=== PATIENT | female | born 1935 | race Caucasian/White ===

== ENCOUNTER 2022-02-21 09:23 | Emergency (ER) | payer OTHER, BC, SELFPAY ==
[2022-02-21 09:46] VITALS: BP 160/108; PULSE 85; RESP 20; TEMP 36.4; O2SAT 93; BMI 26.6
--- NOTE | 2022-02-21 10:06 | ED.GENADULT ---
HPI - General Adult General Time Seen by Provider: 10:14 Date Seen: 02/21/22 Chief complaint: Altered Mental Status Stated complaint: Dementia/hallucination Time Seen by Provider: 02/21/22 09:55 Source: patient Mode of arrival: ambulatory Limitations: no limitations History of Present Illness HPI narrative: Patient is a 86-year-old female presents her . They are from [place]. She has had several year history of progressing dementia. She has had frequent UTIs. At this point she has been sitting mostly for the last 3 4 days her, her reports that she has not cleaned herself after going to the bathroom, unable to really care for herself. She apparently had COVID a few weeks ago. Has nose continued cough, her O2 sat here is 93% on room air. She appears in no distress, she really has no complaints. But just has been less active and unable to be cared for by her elderly at this time. He has tried to get her into the advanced care setting but they have been full. He reports she has had workup for dementia in the past. She has no complaints. Related Data Home Medications Medication Instructions Recorded Confirmed amlodipine 5 mg tablet 5 mg PO DAILY 02/21/22 02/21/22 aspirin 81 mg tablet,delayed 81 mg PO DAILY 02/21/22 02/21/22 release donepezil 10 mg tablet 10 mg PO DAILY 02/21/22 02/21/22 labetalol 100 mg tablet 50 - 100 mg PO Q12H 02/21/22 02/21/22 nitroglycerin 0.4 mg sublingual 0.4 mg sublingual Q5-15M PRN 02/21/22 02/21/22 tablet quetiapine 25 mg tablet 25 mg PO DAILY PRN 02/21/22 02/21/22 rosuvastatin 40 mg tablet 40 mg PO DAILY 02/21/22 02/21/22 triamterene 37.5 0.5 tab PO DAILY 02/21/22 02/21/22 mg-hydrochlorothiazide 25 mg tablet venlafaxine 75 mg capsule,extended 75 mg PO DAILY 02/21/22 02/21/22 release 24 hr Previous Rx's Medication Instructions Recorded ciprofloxacin HCl 250 mg tablet 250 mg PO BID #14 tabs 02/21/22 (Cipro) Allergies Allergy/AdvReac Type Severity Reaction Status Date / Time No Known Drug Allergies Allergy Verified 02/21/22 10:10 Review of Systems Status of ROS: Reports: unobtainable due to mental status PFSH PFS Social History Smoking Status: Never smoker Do you use any of these nicotine containing products: None Second hand tobacco smoke exposure: No How often do you have a drink containing alcohol: 4 or more times a week How many standard drinks containing alcohol do you have on a typical day: 1 or 2 AUDIT-C Alcohol total score: 4 Non-prescribed substance use: denies use Exam Narrative: Exam Narrative: Objective: The patient is responsive, does answer some questions appropriately Vital signs are largely unremarkable and slightly elevated blood pressure HEENT is unremarkable no facial asymmetry neck is supple chest is clear no rales or wheezing Heart rhythm regular 2/6 systolic murmur Abdomen obese benign nontender extremities without edema neurologic nonfocal Skin periphery is warm and dry Good neurologic tone. Const: Vital Signs, click to edit/add: Vital Signs - 24 hr 02/21/22 09:46 02/21/22 13:08 Temperature 97.6 F 98.1 F Pulse Rate [Right Pulse Oximeter] 85 92 Respiratory Rate 20 18 Blood Pressure [Ri ght Upper Arm] 160/108 H 131/118 H Pulse Oximetry 93 93 Oxygen Delivery Me thod Room Air Room Air Course Vital Signs Vital signs: Initial Vital Signs Temperature 97.6 F 02/21/22 09:46 Temperature Source Temporal Artery Scan 02/21/22 09:46 Pulse Rate 85 02/21/22 09:46 Pulse Rhythm 02/21/22 09:46 Respiratory Rate 20 02/21/22 09:46 Blood Pressure 160/108 H 02/21/22 09:46 Blood Pressure Mean 125 02/21/22 09:46 Blood Pressure Position Sitting 02/21/22 09:46 Pulse Oximetry 93 02/21/22 09:46 Oxygen Delivery Method 02/21/22 09:46 Vital Signs Temperature 97.6 F 02/21/22 09:46 Pulse Rate 85 02/21/22 09:46 Respiratory Rate 20 02/21/22 09:46 Blood Pressure 160/108 H 02/21/22 09:46 Pulse Oximetry 93 02/21/22 09:46 Oxygen Delivery Method 02/21/22 09:46 Temperature 98.1 F 02/21/22 13:08 Pulse Rate 92 02/21/22 13:08 Respiratory Rate 18 02/21/22 13:08 Blood Pressure 131/118 H 02/21/22 13:08 Pulse Oximetry 93 02/21/22 13:08 Oxygen Delivery Method 02/21/22 13:08 Medical Decision Making MDM Narrative Medical decision making narrative: Patient has suffered from longstanding dementia, is tried to get an advanced care setting but been unable to due to them being full. At this point will check some basic labs a chest x-ray, COVID test, lab studies, urinalysis. If these are reassuring I think we could have social Service see regarding skilled nursing placement directly from ER given there are no hospital beds in the state, including our own hospital presently. Addendum: Patient's hemodynamics are stable she is slightly hypertensive. Will give her Rocephin 500 mg IM as she has a UTI, I suspect she has chronic pyuria. Will run a culture. Will treat her with Cipro 250 b.i.d. x7 days. Having listed social service help to try and find skilled nursing placement and they are unable to. With her severe limited bed availability at this point I think the patient's able to go home, with social service continue to check on skilled nursing placement. Addendum: Social Service temporal has been extremely helpful in getting this process coordinated, we do have but potential bed for skilled nursing placement tomorrow in [place]. They will review her information and get back to the patient about this within the next day or so or to her service social Service Department. I have also filled out a home care skilled nursing sheet as well as admission orders for the skilled nursing. Cipro for the urinary tract infection, and return if problems or concerns sooner but I think given the limited to bed availability in hospitals there really is no option other than home at this point and possible skilled nursing tomorrow. Lab Data Labs: Lab Results 02/21/22 02/21/22 02/21/22 Range/Units 10:15 10:15 10:15 WBC 8.05 (4.50-11.00) K/uL RBC 4.89 (4.00-5.20) m/uL Hgb 15.5 (12.0-16.0) gm/dL Hct 45.0 (33.0-51.0) % MCV 92 (80-100) fL MCH 32 (26-34) pg MCHC 34 (32-36) gm/dL RDW Coeff of [place] 13.0 (11.5-15.5) % Plt Count 206 (140-440) K/uL Neut % (Auto) 67.5 (42.0-72.0) % Lymph % (Auto) 23.6 (20-44) % [place] % (Auto) 7.8 (0.0-11.0) % Eos % (Auto) 0.6 (0.0-7.0) % Baso % (Auto) 0.4 (0.0-3.0) % Neut # (Auto) 5.43 (1.7-7.0) K/uL Lymph # (Auto) 1.90 (0.90-2.90) K/uL [place] # (Auto) 0.60 (0.00-0.90) K/UL Eos # (Auto) 0.05 (0.00-0.50) K/uL Baso # (Auto) 0.03 (0.00-0.30) K/uL Abs Immat Gran (auto) 0.01 (0.00-0.30) K/uL Sodium 136 (135-149) mmol/L Potassium 3.0 L (3.6-5.1) mmol/L Chloride 97 (96-114) mmol/L Carbon Dioxide 29 (20-32) mmol/L BUN 14 (7-30) mg/dL Creatinine 0.8 (0.5-1.5) mg/dL Estimated Creat Clear 37.68 Estimated GFR 73 ml/min Glucose 108 (60-115) mg/dL Calcium 9.2 (8.4-10.6) mg/dL Urine Color (Yellow) Urine Appearance (Clear) Urine pH (5.0-8.5) Ur Specific [place] (1.000-1.030) Urine Protein (Negative) Urine Glucose (UA) (Negative) Urine Ketones (Negative) Urine Blood (Negative) Urine Nitrite (Negative) Urine Bilirubin (Negative) Urine Urobilinogen (0.2-1.0) Ur Leukocyte Esterase (Negative) Urine RBC (0-2) Urine WBC (0-5) Ur Squamous Epith Cells (None-Few) Urine Bacteria (None) SARS-CoV-2 Ag (Rapid) Negative (Negative) 02/21/22 Range/Units 12:25 WBC (4.50-11.00) K/uL RBC (4.00-5.20) m/uL Hgb (12.0-16.0) gm/dL Hct (33.0-51.0) % MCV (80-100) fL MCH (26-34) pg MCHC (32-36) gm/dL RDW Coeff of [place] (11.5-15.5) % Plt Count (140-440) K/uL Neut % (Auto) (42.0-72.0) % Lymph % (Auto) (20-44) % [place] % (Auto) (0.0-11.0) % Eos % (Auto) (0.0-7.0) % Baso % (Auto) (0.0-3.0) % Neut # (Auto) (1.7-7.0) K/uL Lymph # (Auto) (0.90-2.90) K/uL [place] # (Auto) (0.00-0.90) K/UL Eos # (Auto) (0.00-0.50) K/uL Baso # (Auto) (0.00-0.30) K/uL Abs Immat Gran (auto) (0.00-0.30) K/uL Sodium (135-149) mmol/L Potassium (3.6-5.1) mmol/L Chloride (96-114) mmol/L Carbon Dioxide (20-32) mmol/L BUN (7-30) mg/dL Creatinine (0.5-1.5) mg/dL Estimated Creat Clear Estimated GFR ml/min Glucose (60-115) mg/dL Calcium (8.4-10.6) mg/dL Urine Color [place] A (Yellow) Urine Appearance Cloudy A (Clear) Urine pH 5.5 (5.0-8.5) Ur Specific [place] 1.025 (1.000-1.030) Urine Protein 2+ A (Negative) Urine Glucose (UA) Negative (Negative) Urine Ketones 1+ A (Negative) Urine Blood 1+ A (Negative) Urine Nitrite Positive A (Negative) Urine Bilirubin 2+ A (Negative) Urine Urobilinogen 2.0 A (0.2-1.0) Ur Leukocyte Esterase 3+ A (Negative) Urine RBC 0-2 (0-2) Urine WBC 50-100 A (0-5) Ur Squamous Epith Cells Few (None-Few) Urine Bacteria Many A (None) SARS-CoV-2 Ag (Rapid) (Negative) Discharge Plan Discharge Clinical Impression: Dementia, Urinary tract infection Patient Disposition: Home w/ Parent or Adult Condition: Stable Additional Instructions: Social service to continue to try and get skilled nursing placement, antibiotic Cipro 2 times a day for 7 days. Fluids, observation, update primary care as needed, return to ED as needed; Addendum: Patient has been accepted to [facility], I will complete the orders needed for admission tomorrow. Use the Cipro antibiotic and check into the skilled nursing tomorrow Activity Level: Light activity Discharge Diet: Regular Prescriptions: New ciprofloxacin HCl [Cipro] 250 mg tablet 250 mg PO BID Qty: 14 0RF No Action amlodipine 5 mg tablet 5 mg PO DAILY aspirin 81 mg tablet,delayed release (DR/EC) 81 mg PO DAILY donepezil 10 mg tablet 10 mg PO DAILY Label Comments: TAKE 1 TABLET BY MOUTH DAILY quetiapine 25 mg tablet 25 mg PO DAILY PRN Label Comments: TAKE 1/2 TO 1 TABLET BY MOUTH DAILY NEEDED FOR AGITATION rosuvastatin 40 mg tablet 40 mg PO DAILY triamterene-hydrochlorothiazid 37.5-25 mg tablet 0.5 tab PO DAILY Label Comments: TAKE 1/2 TABLET BY MOUTH DAILY venlafaxine 75 mg capsule,extended release 24hr 75 mg PO DAILY labetalol 100 mg tablet 50 - 100 mg PO Q12H Label Comments: 0.5 TAB IN THE AM AND 1 TAB IN THE EVENING. nitroglycerin 0.4 mg tablet, sublingual 0.4 mg sublingual Q5-15M PRN Rx Instructions: do not exceed 3 doses per episode Stand Alone Forms: [employer] Info Instructions
--- NOTE | 2022-02-21 10:11 | CRLHL7_ITS ---
For Patients: As a result of the Century Cures Act, medical imaging exams and procedure reports are released immediately into your electronic medical record. You may view this report before your referring provider. If you have questions, please contact your health care provider. INDICATION: Weakness TECHNIQUE: Chest 1 view COMPARISON: None FINDINGS: Cardiovascular and mediastinum: Tortuosity of the descending thoracic aorta. Cardiac silhouette is upper limits of normal. Lungs and pleural spaces: Lungs are clear. No sign of infiltrate or mass. No sign of pleural effusion. No pneumothorax. Bones and soft tissues: No significant findings. IMPRESSION: No acute findings. Dictated by Mt Ramirez MD @ 02/21/2022 11:14:07 AM (Electronically Signed)
[2022-02-21 10:22] LABS: Basophils Absolute Auto 0.03 K/uL (0.00-0.30); Basophils Percent Auto 0.4 % (0.0-3.0); Eosinophils Absolute Auto 0.05 K/uL (0.00-0.50); Eosinophils Percent Auto 0.6 % (0.0-7.0); Hemoglobin* 15.5 gm/dL (12.0-16.0); Immature Granulocytes Abs Auto 0.01 K/uL (0.00-0.30); Lymphocytes Percent Auto 23.6 % (20-44); Mean Corpuscular HGB Conc 34 gm/dL (32-36); Mean Corpuscular Hemoglobin 32 pg (26-34); Mean Corpuscular Volume 92 fL (80-100); Monocytes Percent Auto 7.8 % (0.0-11.0); Neutrophils Absolute Auto 5.43 K/uL (1.7-7.0); Neutrophils Percent Auto 67.5 % (42.0-72.0); Platelet Count* 206 K/uL (140-440); Red Blood Count 4.89 m/uL (4.00-5.20); White Blood Count* 8.05 K/uL (4.50-11.00)
[2022-02-21 10:24] LABS: Slide Review Reflex No
--- OUTSIDE RECORDS SUMMARY | 2022-02-21 10:25 | XMS_ITS | Clinical Summary ---
:1935 Author Organization [employer] Address [address] [place] [address] Care Team Providers Name Role Phone Justin Arora PA-C Primary Care Provider Source Comments You are receiving this document as you are listed as the primary care provider,follow-up provider, or the patient has been referred to you for consultation.This is in compliance with the Medicare and Medicaid EHR Incentive Program,which states Providers who transition their patient to another setting of careor provider of care or refers their patient to another provider of care shouldprovide summarycare record for each transition of care or referral. [employer] ([employer]) Allergies Active Allergy Reactions Severity Noted Date Comments Atorvastatin 09/16/2014 Muscle aches Morphine Nausea And Vomiting 09/16/2014 Medications Medication Sig Dispensed Refills Start Date End Date Status Cholecalciferol Take 1 Tablet 90 Tablet 3 04/12/2020 Active (VITAMIN D3) 25 MCG by mouth (1000 UT) daily. taIndications: Vitamin D deficiency (HRC) nitroglycerin Place 1 Tablet 100 Tablet 11 04/12/2020 Active (NITROSTAT) 0.4 MG under tongue sublingual every 5 tabletIndications: Old minutes as myocardial infarction needed for (HRC) Chest Pain. If no relief after 5 min call 911;continue 1 tab every 5 min max 3 tab Calcium 600-200 Take 1 Each by 180 Each 3 04/12/2020 Active MG-UNITIndications: mouth two Osteoporosis, times a day. unspecified osteoporosis type, unspecified pathological fracture presence (HRC) labetalol (TRANDATE) TAKE ONE-HALF 135 Tablet 0 10/30/2020 Active 100 MG BY MOUTH EVERY tabletIndications: MORNING AND 1 Essential hypertension TABLET EVERY (HRC) EVENING donepezil (ARICEPT) 10 Take 1 Tablet 90 Tablet 3 05/11/2021 Active MG tablet by mouth daily. amLODIPine (NORVASC) 5 Take 0.5 90 Tablet 3 06/23/2021 Active MG tabletIndications: Tablets (2.5 Essential hypertension mg) by mouth ([facility]) daily. rosuvastatin (CRESTOR) Take 1 Tablet 90 Tablet 3 06/23/2021 Active 40 MG (40 mg) by tabletIndications: mouth daily. Hyperlipidemia, unspecified hyperlipidemia type ([facility]) triamterene-hydrochloro Take 0.5 90 Tablet 3 06/23/2021 Active thiazide (MAXZIDE-25) Tablets by 37.5-25 MG mouth daily. tabletIndications: Essential hypertension (HR) venlafaxine (EFFEXORXR) Take 1 Capsule 90 Capsule 3 06/23/2021 06/23/2022 Active 75 MG 24 hour release (75 mg) by capsuleIndications: mouth daily. Moderate episode of recurrent major depressive disorder (HRC) aspirin EC 81 MG Take 1 Tablet 90 Tablet 3 06/23/2021 Active enteric coated (81 mg) by tabletIndications: mouth daily. Essential hypertension (HR) naproxen (NAPROSYN) 500 Take 1 Tablet 20 Tablet 1 07/26/2021 Active MG tabletIndications: (500 mg) by Pain in hip, Unsteady mouth two gait times daily as needed. cephalexin (KEFLEX) 500 Take 1 Capsule 21 Capsule 0 09/13/2021 Active MG capsuleIndications: (500 mg) by Foul smelling urine, mouth three Recurrent UTI times a day. Additional Information Patient not taking. Reported on 01/31/2022 nirmatrelvir & Take 2 nirmatrelvir 30 Each 0 01/25/2022 Active ritonavir 300/100 tablets (300mg) and 1 (PAXLOVID) 300 mg & ritonavir tablet 100 mg tablet combo (100mg) by mouth packIndications: twice daily for 5 Infection caused by days. Quetiapine 2019 Novel 25MG: Take 1/2 tab Coronavirus every other day while on Paxlovid and for 3 days after. Amlodipine: Take 1/2 tablet every other day while on Paxlovid and for 3 days after. Rosuvastatin-Stop rosuvastatin during treatment. Restart rosuvastatin 1 day after the last dose of Paxlovid. Indications: Infection caused by COVID-19 Coronavirus QUEtiapine (SEROQUEL) 1/2 to 1 pill daily 30 Tablet 2 02/07/20 22 Active 25 MG tablet as needed for agitation QUEtiapine (SEROQUEL) 1/2 to 1 pill daily 30 Tablet 5 05/11/20 21 01/12 Discontinued 25 MG tablet as needed for 11/29 (*M ed change OR agitation 22 same med O R reorder, n ew dose/direc tions) Active Problems Patient Care Coordination Note Formatting of this note might be differe nt from the original. BORIS Desir [employer] Care Coord inator [phone] Problem Noted Date Age-related osteoporosis without current pathological fracture 05/19/2020 Osteoporosis 07/13/2019 Overview: DEXA 2020 Incontinence 10/22/2018 Dementia in Alzheimer's disease 06/26/2018 Complex care coordination 06/03/2018 Overview: BORIS Desir [employer], Blue Plus Plan. PERS and care coordination [phone] Cervical myelopathy 07/08/2017 Overview: Added automatically from request for vy lawson [id number] Muscle weakness (generalized) 07/08/2017 Overview: Added automatically from request for vy lawson [id number] Stenosis, cervical spine 07/08/2017 Overview: Added automatically from request for vy lawson [id number] Thyroid nodule 05/17/2017 Overview: Stable in 2019 - needs repeat in 2021 Consulted with endocrinology in May 2017. At this time does not look concerning. Recommending repeat thyroid US and TSH in 6 months. If stable then repeat in a year. 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 followed by her primary physician with o nce a year testing of quantitative immunoglobulins, SPEP, free light chains, hemoglobin and creatinine levels. MGUS:Fidelia comes today for follow up wi th her daughter. She denies any new symptoms. She was last seen by us in 2018. Overall, she is walking better and has not been using the cane and denies any recen t falls or unsteadiness. She denies any headache, dizziness, or any neuropathic symptoms. She does not have any CRAB features and did have 2 small calvarial lesions which are likely benign and stable in 2018 based on MRI. At this time, since she is doing well with stable monoclonal protein, she can be followed by her primary physician with once a year testing of quantitative immunoglobulins, SPEP, roxi e light chains, hemoglobin and creatinin e levels. She can be referred back if there are cytopenias or significant changes in monoclonal protein. Fidelia is a 81-year-old with history of hypertension, coronary artery disease, status post ventricular fibrillation, cardiac arrest in 2002 has been referred here for evaluation of monoclonal protein. ?? I discussed with Fidelia and her daughter her electrophoresis which was performed on 11/01/2016, showing 0.5 g of IgG kappa. She does not have any CRAB features specifically anemia or abnormal kidney fun ction with normal calcium levels. She do es not have any abnormal bone pain or aches or any new symptoms or fractures in the past. I discussed with her that we will be obtaining free light chain assays a nd quantitative immunoglobulins for furt her evaluation. 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 I went over the na ture and generation of MGUS with her in detail. I do not think a bone survey is necessary at this time, but could consider that if the protein increases any further. She will visit with us in 4-5 months for followup. Sensory neuronopathy 01/28/2017 Memory loss 01/28/2017 Old myocardial infarction 09/29/2016 Overview: Sees mobile security architect at [facility]. Records i n care everywhere. Seen in November 2017 by her mobile security architect Dr. Guillermo Martinez. Has known her for 15 years. No changes made. He wants to see her in 2 years. No changes were made. In 1980 she had a left circumflex myocar dial infarction and continues to have an occluded obtuse marginal 1 branch. In 2002 she presented with chest pressure, anterior wall NJ complicated by ventricular fibrillation cardiac arrest. The LAD martino d a high-grade lesion and at that point was too tortuous to stent. Likely with today's technology we could. She had a nuclear stress test done in 2008 which looke d positive for ischemia. We took her to the Cost Accounting Clerk, and she had a 50%-60% narrowing in the LAD and a 50% right coronary lesion -- this was likely a false- positive stress test. She has had no angina. S hould we do any surveillance stress test ing in the future, Dr. Martinez is suggesting an MRI stress test or an angiogram. She has lost some weight. She has some e adrián from varicosities. She had a heart murmur apparent at the last office visit, and Dr. Martinez felt this was aortic valve sclerosis, which indeed it is. There is no stenoses. Her LV function is 50%-5 5% with an inferobasal wall motion abnormality likely consistent with her known cardiac anatomy, and she has had wall motion issues there on nuclear testing in the past. Overview: Followed by [facility] cardiolog y with VFib Arrest, SVT immediately after NJ Back in 1980, she had an unrecognized le ft circumflex myocardial infarction. In 2002, she presented with an anterior infarct with V-fib cardiac arrest. We ballooned the LAD with good result. We did not place a stent because the vessel was tor tuous, although with today's stents we could place one. In 2008, a stress test suggested severe ischemia, which fortunately was not the case. Heart cath showed, o f course, the circumflex marginal was oc cluded, the LAD was 50% narrowed and the right coronary had 50% narrowing. Aortic valve sclerosis 09/29/2016 Chronic coronary artery disease 09/29/2016 Hyperlipidemia 09/29/2016 Hypertension 09/29/2016 Anxiety 09/29/2016 Depression, major, recurrent 09/29/2016 Encounters Date Type Specialty Care Team Description 02/06/2022 Telephone Neurology Nany Newman, RN UPDATE 02/06/2022 Nurse Triage Family Medicine Justin Arora PAYadiel Faby t. Work In Request; Follow Up, Urge nt Care; DEMENTIA; BEHAV IOR CONCERNS 02/01/2022 Nurse Triage Urgent Care Ginger Nath RN Questio ns, Aftercare 01/31/2022 Lab Visit Laboratory Other fatigue; Weight loss; Appetite loss 01/31/2022 Office Visit Urgent Care Brady Renee, Other fa tigue; Weight loss; Appetite loss 01/31/2022 Nurse Triage Family Medicine Justin Arora PA-C WEAKNESS,EXTREMITIES; APPETITE, DECRE ASED 01/24/2022 Telephone Family Medicine Justin Arora PA-C COU GH; COVID 12/08/2021 Telephone Family Medicine Justin Arora PA-C Dme Supply 12/06/2021 Telephone Family Medicine Justin Arora PA-C Que stions from Last 3 Months Immunizations Name Administration Dates Next Due Flu Vac Preserv Free (3+yrs) 03/03/2004 Influenza IIV3 (Trivalent) Fluzone 03/29/2020, 04/29/2019, 1 06/02/2018, Highdose, 65+ Yrs (97033) 04/01/2018, 05/15/2017 Influenza IIV4 (Quadrivalent) 0.5mL 02/09/2016, 02/16/2015, 02/23/2014, (39953) 02/11/2013, 02/01/2012, 04/26/2011 Influenza IIV4 (Quadrivalent) 03/28/2021 Fluzone, 65+ Yrs PCV13 (Prevnar) 02/16/2015 PPSV23 (Pneumovax) 07/25/2017 Pfizer (Comirnaty) COVID-19, 12+ Yrs 03/24/2021, 07/09/2020, 06/18/2020 Purple Top Tdap 06/08/2019 Zoster RZV (Shingrix) 07/15/2018, 03/18/2018 Family History Medical History Relation Name Comments Heart Disease Mother Heart Disease Sister BRCA 1/2 Negative Family History Cancer Negative Family History Cancer, Breast Negative Family History Cancer, Endometrial Negative Family History Cancer, Ovary Negative Family History Relation Name Status Comments Mother Sister Social History Tobacco Use Types Packs/Day Years Used Date Smoking Tobacco: Never Smokeless Tobacco: Never Alcohol Use Standard Drinks/Week Comments Yes 0 (1 standard drink = 0.6 oz pure alcoho l) rare occasions (1 per month) Sex Assigned at Date Recorded Not on file Last Filed Vital Signs Vital Sign Reading Time Taken Comments Blood Pressure 122/73 01/31/2022 2:54 PM CDT Pulse 81 01/31/2022 2:54 PM CDT Temperature 36.9 ??C (98.5 ??F) 01/31/2022 2:54 PM CDT Respiratory Rate 16 01/31/2022 2:54 PM CDT Oxygen Saturation 95% 01/31/2022 2:54 PM CDT Inhaled Oxygen Concentration - - Weight 81.7 kg (180 lb 1.9 oz) 01/31/2022 2:54 PM CDT Height 156.2 cm (5' 1.5) 09/13/2021 2:12 PM CDT Body Mass Index 33.48 09/13/2021 2:12 PM CDT Plan of Treatment Health Maintenance Due Date Last Done Comments COVID-19 Vaccine (4 - 05/19/2021 03/24/2021, 07/09/2020, Booster for Pfizer series) 06/18/2020 Dexa 07/08/2021 07/08/2019 Influenza (#1) 2022 03/28/2021, 03/29/2020, 04/29/2019, Additional history exists Medicare Annual Wellness 06/23/2022 06/23/2021, 06/08/2019, Visit 11/07/2017 DTaP/Tdap/Td (2 - Tdap) 06/08/2029 06/08/2019 Pneumococcal 65+ Yrs Completed 07/25/2017, 02/16/2015 Zoster/Shingles Completed 07/15/2018, 03/18/2018 HepA Aged Out No longer eligib le based on patient 's age to complete this topic HepB Aged Out No longer eligib le based on patient 's age to complete this topic Hib Aged Out No longer eligib le based on patient 's age to complete this topic IPV (Polio) Aged Out No longer eligib le based on patient 's age to complete this topic MCV4 Aged Out No longer eligib le based on patient 's age to complete this topic Procedures Procedure Name Priority Date/Time Associated Comments Diagnosis TSH, SENSITIVE Routine 01/31/2022 3:50 PM Other fatigue Results for this CDT Weight loss procedure are in Appetite loss the results section. COMPLETE BLOOD STAT 01/31/2022 3:50 PM Other fatigue Result s for this COUNT-W/DIFF CDT procedure are i n the results section. C-REACTIVE PROTEIN STAT 01/31/2022 3:50 PM Other fatigue Re sults for this CDT procedure are i n the results section. CBC AND DIFFERENTIAL STAT 01/31/2022 3:50 PM Other fatigue Results for this PANEL CDT procedure are i n the results section. COMP METABOLIC PANEL STAT 01/31/2022 3:50 PM Other fatigue Results for this CDT procedure are i n the results section. from Last 3 Months Results (ABNORMAL) Complete Blood Count-W/Diff (01/31/2022 3:50 PM CDT) Analysis Performed At Patho logist Time Signature WBC 6.9 3.5 - 10.5 01/31/2022 [facility] x10(9)/L 4:02 PM CDT RBC 5.52 (H) 3.90 - 01/31/2022 [facility] 5.03 4:02 PM CDT x10(12)/L Hemoglobin 17.1 (H) 12.0 - 01/31/2022 [facility] 15.5 g/dL 4:02 PM CDT HCT 49.0 (H) 34.9 - 01/31/2022 [facility] 44.5 % 4:02 PM CDT MCV 88.8 80.0 - 01/31/2022 [facility] 100.0 fL 4:02 PM CDT MCH 31.0 27.6 - 01/31/2022 [facility] 33.3 pg 4:02 PM CDT MCHC 34.9 31.5 - 01/31/2022 [facility] 35.2 g/dL 4:02 PM CDT RDW 12.5 11.9 - 01/31/2022 [facility] 15.5 % 4:02 PM CDT Platelets 203 150 - 450 01/31/2022 [facility] x10(9)/L 4:02 PM CDT Neutrophil 4.6 1.7 - 7.0 01/31/2022 [facility] Absolute 10(9)/L 4:02 PM CDT Lymphocyte 1.8 1.0 - 4.8 01/31/2022 [facility] Absolute 10(9)/L 4:02 PM CDT Monocytes 0.5 0.2 - 0.9 01/31/2022 [facility] Absolute 10(9)/L 4:02 PM CDT Eosinophil 0.0 0.0 - 0.5 01/31/2022 [facility] Absolute 10(9)/L 4:02 PM CDT Basophil 0.0 0.0 - 0.3 01/31/2022 [facility] Absolute 10(9)/L 4:02 PM CDT Immature Gran % 0.3 0.0 - 0.5 01/31/2022 [facility] % 4:02 PM CDT Specimen Anatomical Collection Method / Collection Time Recei miladis Time (Source) Location / Volume Laterality Blood Venipuncture / 01/31/2022 3:50 01/31/2022 3:50 Unknown PM CDT PM CDT Brady Renee MD LAB_1 Performing Organization Address City/State/ZIP Code Phon e Number [facility] [address] [place] [address] (ABNORMAL) Comp Metabolic Panel (01/31/2022 3:50 PM CDT) [facility] Method Time Signature Sodium 136 136 - 145 01/31/2022 [facility] mmol/L 5:30 PM CDT LABORATORY Potassium 3.2 (L) 3.5 - 5.1 01/31/2022 [facility] mmol/L 5:30 PM CDT LABORATORY Chloride 92 (L) 98 - 109 01/31/2022 [facility] mmol/L 5:30 PM CDT LABORATORY CO2 32 (H) 20 - 29 01/31/2022 [facility] mmol/L 5:30 PM CDT LABORATORY Anion Gap 12 7 - 16 01/31/2022 [facility] mmol/L 5:30 PM CDT LABORATORY Calcium 9.1 8.4 - 10.4 01/31/2022 [facility] mg/dL 5:30 PM CDT LABORATORY BUN 13 7 - 26 01/31/2022 [facility] mg/dL 5:30 PM CDT LABORATORY Creatinine 0.80 0.55 - 01/31/2022 [facility] 1.02 mg/dL 5:30 PM CDT LABORATORY GFR, Estimated >60 >60 01/31/2022 [facility] mL/min/1.7 5:30 PM CDT LABORATORY 3m2 Alkaline 49 40 - 150 01/31/2022 [facility] Phosphatase U/L 5:30 PM CDT LABORATORY AST (SGOT) 24 10 - 40 01/31/2022 [facility] U/L 5:30 PM CDT LABORATORY ALT (SGPT) 14 0 - 55 U/L 01/31/2022 [facility] 5:30 PM CDT LABORATORY Bilirubin, Total 1.2 0.2 - 1.2 01/31/2022 [facility] mg/dL 5:30 PM CDT LABORATORY Protein, Total 7.3 6.4 - 8.3 01/31/2022 [facility] g/dL 5:30 PM CDT LABORATORY Albumin 3.9 3.5 - 5.0 01/31/2022 [facility] g/dL 5:30 PM CDT LABORATORY Glucose 98 70 - 100 01/31/2022 [facility] mg/dL 5:30 PM CDT LABORATORY Comment: The given reference range is fo r the fasting state. Non-fasting reference range for glucose is 70 - 180 mg/dL. Hours Fasting 3 01/31/2022 5:30 PM CDT [facility] Specimen Anatomical Collection Method / Collection Time Recei miladis Time (Source) Location / Volume Laterality Blood Venipuncture / 01/31/2022 3:50 01/31/2022 3:50 Unknown PM CDT PM CDT Brady Renee MD LAB_1 Performing Organization Address City/State/ZIP Code Phon e Number [facility] [address] [place] [address] [facility] [address] [place] [address], [facility] TSH (01/31/2022 3:50 PM CDT) athologist Signature TSH, Sensitive 1.63 0.30 - 02/01/2022 [facility] 4.50 2:35 PM CDT LABORATORY uIU/mL Specimen Anatomical Collection Method / Collection Time Recei miladis Time (Source) Location / Volume Laterality Blood Venipuncture / 01/31/2022 3:50 01/31/2022 3:50 Unknown PM CDT PM CDT Brady Renee MD LAB_1 Performing Organization Address City/State/ZIP Code Phon e Number [facility] [address] [place] [address] C-Reactive Protein (01/31/2022 3:50 PM CDT) athologist Signature C-Reactive <0.5 0.0 - 0.7 01/31/2022 [facility] Protein mg/dL 5:30 PM CDT LABORATORY Specimen Anatomical Collection Method / Collection Time Recei miladis Time (Source) Location / Volume Laterality Blood Venipuncture / 01/31/2022 3:50 01/31/2022 3:50 Unknown PM CDT PM CDT Bardy Renee MD LAB_1 Performing Organization Address City/State/ZIP Code Phon e Number [facility] [address] [place] [address] from Last 3 Months Insurance Payer Benefit Plan / Subscriber ID Effective Dates Phone Addre ss Type Group HUMANA HUMANA MEDICARE [id number] 2019-Presen [phone] Medicare PPO t 8 BCBS BCBS PMAP BLUE [id number] 2020-Prese [address] [address] [place] [address] Asael, Fidelia R Personal/Famil Self 1935 [address] [place] (Home) [address] [place] [address] Sprute, Fidelia R Personal/Famil Self 1935 [address] ([address] [place] [address] Asael, Fidelia R Personal/Famil Self 1935 [address] ([address] [address] Advance Directives Latest Code Status on File Code Status Date Activated Date Inactivated Comments Full Code 07/09/2017 5:30 PM 07/12/2017 1:[address] Reporter Relationship Specialty Start Date End Date Justin Arora PA-C PCP - General Physician Biological Inspector 07/24/21 [address] [place] [address] Erin Meza [facility] Glass Forming Crew Member 10/24/17 BORIS Desir [phone] Fatou Haile Glass Forming Crew Member 06/03/18 mauri garcia [facility] Early Childhood Special Educator 05/28/19
--- OUTSIDE RECORDS SUMMARY | 2022-02-21 10:25 | XMS_ITS | Encounter Summary ---
:1935 Author Organization [employer] Address [address] [place] [address] Care Team Providers Name Role Phone Jutsin Arora PA-C Primary Care Provider Reason for Visit Reason Comments Questions, Aftercare Encounter Details Date Type Department Care Team Description 02/01/2022 Nurse Triage [place] [address] Urgent Ginger Nath, [place] [address] [address] [phone] Social History Tobacco Use Types Packs/Day Years Used Date Smoking Tobacco: Never Smokeless Tobacco: Never Alcohol Use Standard Drinks/Week Comments Yes 0 (1 standard drink = 0.6 oz pure alcoho l) rare occasions (1 per month) Sex Assigned at Date Recorded Not on file documented as of this encounter Nursing Notes Ginger Nath, RN - 02/01/2022 10:24 AM CDT Patient's daughter calling with questions regarding follow up on phone message left by Brady last night regarding labs and possible IV hydration. Internal Medicine Physician spoke with provider on staff today, Destin Blum CNP who recommends that if patient is unable to hydrate orally, eat and has continued weakness then she should presents to the ED for hydration and further evaluation of weakness. This assembly instructions writer informed daughterOnel. Daughter expressed understanding, and asked what kind of drinks she should be offeringher mother. Internal Medicine Physician instructed water, flavored water beverages, teas, gatorade, powerade, boost or ensure. Also encouraged intake of potassium in foods such as bananas. Daughter will encourage and if yadiel ble will present to ED with Fidelia. documented in this encounter Plan of Treatment Not on filedocumented as of this encounter Visit Diagnoses Not on filedocumented in this encounter Care Teams Upholstery Parts Sorter Relationship Specialty Start Date End Date Justin Arora PA-C PCP - General Physician Net Developer Contract 07/24/21 [id number] [place] [address] Erin ESCALANTE Channeler Outsole 10/24/17 BORIS Desir [phone] Fatou Haile Channeler Outsole 06/03/[address] Mechanic 05/28/19 documented as of this encounter
--- OUTSIDE RECORDS SUMMARY | 2022-02-21 10:25 | XMS_ITS | Encounter Summary ---
:1935 Author Organization [facility] Address [address], [place] [address] Care Team Providers Name Role Phone Justin Arora PA-C Primary Care Provider Reason for Visit Reason Comments UPDATE Encounter Details Date Type Department Care Team Description 02/06/2022 Telephone Specialty Center [phone] Neurology Nany Newman, RN UPDATE [address] [place], [place] [id number] Social History Tobacco Use Types Packs/Day Years Used Date Smoking Tobacco: Never Smokeless Tobacco: Never Alcohol Use Standard Drinks/Week Comments Yes 0 (1 standard drink = 0.6 oz pure alcoho l) rare occasions (1 per month) Sex Assigned at Date Recorded Not on file documented as of this encounter Nursing Notes Nany Newman RN - 02/06/2022 1:45 PM CDT Called pt's daughter and discussed the below. She will call 911 and bring her to ER if unable to gether out of the chair. Recently seen in urgent care as well. Jose Aldridge MD - 02/06/2022 1:35 PM CDT If this is a sudden behavior change she should be evaluated more urgently in UC/ED to see if she hassome kind of acute infection or medical event causing this. I agree that even if not such a sudden change, there would be acute concerns about her not getting up from chair, sitting in her own urine/feces in regard to skin breakdown. I doubt that quetiapine will help with them with this situation as you stated. Nany Newman, RN - 02/06/2022 12:28 PM CDT Pt's daughter calling to report worsening memory issues and aggression. She is refusing to brigitte out of her chair, won't use the restroom, is combative and argumentative. Hasn't moved from this chair since Saturday, won't change her depend. Never picked up the seroquel. Rx sent through to see if this willhelp get her out of the chair. Discussed may have to call 911 if she still refuses to move as at this point skin breakdown/ulcers are a concern. Please advise if anything further is needed. May benefitfrom social science instructor reaching out. documented in this encounter Plan of Treatment Not on filedocumented as of this encounter Visit Diagnoses Not on filedocumented in this encounter Care Teams Patient Care Technician Instructor Relationship Specialty Start Date End Date Justin Arora PA-C PCP - General Physician Parking Line Painter 07/24/21 [address] [place] [address] Erin ESCALANTE Benefits Analyst 10/24/17 BORIS Desir [phone] Fatou Haile Benefits Analyst 06/03/18 mauri garcia [facility] Promotions Director 05/28/19 documented as of this encounter
--- OUTSIDE RECORDS SUMMARY | 2022-02-21 10:25 | XMS_ITS | Encounter Summary ---
:1935 Author Organization [employer] Address [address] [place] [address] Care Team Providers Name Role Phone Justin Arora PA-C Primary Care Provider Reason for Visit Reason Comments Appt. Work In Request Follow Up, Urgent Care [facility] Encounter Details Date Type Department Care Team Description 02/06/2022 Nurse Triage [place] [address] Justin Arora, Appt. Wo rk In Request; Family Medicine [place] Follow Up, [facility]gent [address] [facility] [address] [facility] Care; [place]; [place], [place] [facility] [address] [phone] Social History Tobacco Use Types Packs/Day Years Used Date Smoking Tobacco: Never Smokeless Tobacco: Never Alcohol Use Standard Drinks/Week Comments Yes 0 (1 standard drink = 0.6 oz pure alcoho l) rare occasions (1 per month) Sex Assigned at Date Recorded Not on file documented as of this encounter Nursing Notes Sofia Draper RN - 02/06/2022 12:05 PM CDT Reason for Disposition New or worsening agitation or behavior problem (e.g., change from patient's normal pattern) Protocols used: Dementia Symptoms and [id number] Spoke with pt's daughter. Verbal disclosure on file. States that pt was recently seen in on 01/31/22 for changes in her dementia as well as fatigue. States was told to follow up with PCP. Pt does seeneurology for her dementia. Caller states that pt has refused to get out of her chair now since 02/02/22 unless someone is there to force her to move. Caller states that did go over to see pt yesterday t o help get her showered and cleaned up. States that pt has gotten more combative, angry and yelling at others.States that her Dad is the primary pet care attendant for pt at this time. Not sure what next step would be. All questions answered. Discussed contacting neurologist to further discuss if concerned that pt's dementia is getting worse. Verbalizes understanding of info. Will contact neurologist now to further discuss. Problem list reviewed as related to this call. Jessie Fox - 02/06/2022 11:54 AM CDT Symptoms Describe your symptoms (if pain, include location): Dementia behaviors increasing, refusing to get out of chair, refusing cares, combative, angry/yelling at caregiver, weight loss, eating and drinking very little When did they start? Worse recently, increased behaviors Additional comments (related to the above concern): Was seen in on 01/31/2022, told to F/U with PCP. Asking to be seen in clinic or could do a Video visit with daughters cell number. Not able to come in today unless it was after 5 pm. If a prescription is needed, patient would like it filled at the pharmacy listed in Meds & Orders. (Verify the pharmacy patient would like to use for this request is highlighted in blue in PharmacySelection under Meds & Orders) Is it okay to leave a detailed message on your voicemail? Yes (Advise caller that the PN call back number will end with [phone] or unknown) For urgent symptoms: Please route and transfer to: Triage Pool (high priority) For routine symptoms: Please route to: Triage Pool (only transfer if caller insists) documented in this encounter Plan of Treatment Not on filedocumented as of this encounter Visit Diagnoses Not on filedocumented in this encounter Care Teams Manager Estate Relationship Specialty Start Date End Date Justin Arora PA-C PCP - General Physician Pl Sql Programmer 07/24/21 [address] [place] [address] Erin ESCALANTE Milk Tester 10/24/17 BORIS Desir [phone] Fatou Haile Milk Tester 06/03/18 mauri PRADOW Air Support Control Officer 05/28/19 documented as of this encounter
--- OUTSIDE RECORDS SUMMARY | 2022-02-21 10:25 | XMS_ITS | Encounter Summary ---
:1935 Author Organization [employer] Address [address] [place] [address] Care Team Providers Name Role Phone Justin Arora PA-C Primary Care Provider Encounter Details Date Type Department Care Team Description 01/31/2022 Lab Visit [facility] Other fatigue; [address] [facility] Weight loss; [place] [address] Appetite loss [phone] Social History Tobacco Use Types Packs/Day Years Used Date Smoking Tobacco: Never Smokeless Tobacco: Never Alcohol Use Standard Drinks/Week Comments Yes 0 (1 standard drink = 0.6 oz pure alcoho l) rare occasions (1 per month) Sex Assigned at Date Recorded Not on file documented as of this encounter Plan of Treatment Not on filedocumented as of this encounter Procedures Procedure Name Priority Date/Time Associated Comments Diagnosis CBC AND DIFFERENTIAL STAT 01/31/2022 3:50 PM Other fatigue Results for this PANEL CDT procedure are i n the results section. COMPLETE BLOOD STAT 01/31/2022 3:50 PM Other fatigue Result s for this COUNT-W/DIFF CDT procedure are i n the results section. COMP METABOLIC PANEL STAT 01/31/2022 3:50 PM Other fatigue Results for this CDT procedure are i n the results section. TSH, SENSITIVE Routine 01/31/2022 3:50 PM Other fatigue Results for this CDT Weight loss procedure are in Appetite loss the results section. C-REACTIVE PROTEIN STAT 01/31/2022 3:50 PM Other fatigue Re sults for this CDT procedure are i n the results section. documented in this encounter Results TSH (01/31/2022 3:50 PM CDT) P athologist Signature TSH, Sensitive 1.63 0.30 - 02/01/2022 [facility] 4.50 2:35 PM CDT LABORATORY uIU/mL Specimen Anatomical Collection Method / Collection Time Recei miladis Time (Source) Location / Volume Laterality Blood Venipuncture / 01/31/2022 3:50 01/31/2022 3:50 Unknown PM CDT PM CDT Brady Renee MD LAB_1 Performing Organization Address City/State/ZIP Code Phon e Number [facility] [address] [place] [address] (ABNORMAL) Complete Blood Count-W/Diff (01/31/2022 3:50 PM CDT) Analysis Performed At Patho logist Time Signature WBC 6.9 3.5 - 10.5 01/31/2022 [facility] x10(9)/L 4:02 PM CDT RBC 5.52 (H) 3.90 - 01/31/2022 [facility] 5.03 4:02 PM CDT x10(12)/L Hemoglobin 17.1 (H) 12.0 - 01/31/2022 [facility] 15.5 g/dL 4:02 PM CDT HCT 49.0 (H) 34.9 - 01/31/2022 [facility] 44.5 % 4:02 PM CDT MCV 88.8 80.0 - 01/31/2022 [facility] 100.0 fL 4:02 PM CDT MCH 31.0 27.6 - 01/31/2022 [facility] 33.3 pg 4:02 PM CDT MCHC 34.9 31.5 - 01/31/2022 [facility] 35.2 g/dL 4:02 PM CDT RDW 12.5 11.9 - 01/31/2022 [facility] 15.5 % 4:02 PM CDT Platelets 203 150 - 450 01/31/2022 [facility] x10(9)/L 4:02 PM CDT Neutrophil 4.6 1.7 - 7.0 01/31/2022 [facility] Absolute 10(9)/L 4:02 PM CDT Lymphocyte 1.8 1.0 - 4.8 01/31/2022 [facility] Absolute 10(9)/L 4:02 PM CDT Monocytes 0.5 0.2 - 0.9 01/31/2022 [facility] Absolute 10(9)/L 4:02 PM CDT Eosinophil 0.0 0.0 - 0.5 01/31/2022 [facility] Absolute 10(9)/L 4:02 PM CDT Basophil 0.0 0.0 - 0.3 01/31/2022 [facility] Absolute 10(9)/L 4:02 PM CDT Immature Gran % 0.3 0.0 - 0.5 01/31/2022 [facility] % 4:02 PM CDT Specimen Anatomical Collection Method / Collection Time Recei miladis Time (Source) Location / Volume Laterality Blood Venipuncture / 01/31/2022 3:50 01/31/2022 3:50 Unknown PM CDT PM CDT Brady Renee MD LAB_1 Performing Organization Address City/[facility]/ZIP Code Phon e Number [facility] [address] [place] [address] C-Reactive Protein (01/31/2022 3:50 PM CDT) P athologist Signature C-Reactive <0.5 0.0 - 0.7 01/31/2022 [facility] Protein mg/dL 5:30 PM CDT LABORATORY Specimen Anatomical Collection Method / Collection Time Recei miladis Time (Source) Location / Volume Laterality Blood Venipuncture / 01/31/2022 3:50 01/31/2022 3:50 Unknown PM CDT PM CDT Brady Renee MD LAB_1 Performing Organization Address City/State/ZIP Code Phon e Number [facility] [address] [place] [address] (ABNORMAL) Comp Metabolic Panel (01/31/2022 3:50 PM CDT) Patholo gist Method Time Signature Sodium 136 136 - 145 01/31/2022 [facility] mmol/L 5:30 PM CDT LABORATORY Potassium 3.2 (L) 3.5 - 5.1 01/31/2022 [facility] mmol/L 5:30 PM CDT LABORATORY Chloride 92 (L) 98 - 109 01/31/2022 [facility] mmol/L 5:30 PM CDT LABORATORY CO2 32 (H) 20 - 29 01/31/2022 [facility] mmol/L 5:30 PM CDT LABORATORY Anion Gap 12 7 - 16 01/31/2022 [facility] mmol/L 5:30 PM CDT LABORATORY Calcium 9.1 8.4 - 10.4 01/31/2022 [facility] mg/dL 5:30 PM CDT LABORATORY BUN 13 7 - 26 01/31/2022 [facility] mg/dL 5:30 PM CDT LABORATORY Creatinine 0.80 0.55 - 01/31/2022 [facility] 1.02 mg/dL 5:30 PM CDT LABORATORY GFR, Estimated >60 >60 01/31/2022 [facility] mL/min/1.7 5:30 PM CDT LABORATORY 3m2 Alkaline 49 40 - 150 01/31/2022 [facility] Phosphatase U/L 5:30 PM CDT LABORATORY AST (SGOT) 24 10 - 40 01/31/2022 [facility] U/L 5:30 PM CDT LABORATORY ALT (SGPT) 14 0 - 55 U/L 01/31/2022 [facility] 5:30 PM CDT LABORATORY Bilirubin, Total 1.2 0.2 - 1.2 01/31/2022 [facility] mg/dL 5:30 PM CDT LABORATORY Protein, Total 7.3 6.4 - 8.3 01/31/2022 [facility] g/dL 5:30 PM CDT LABORATORY Albumin 3.9 3.5 - 5.0 01/31/2022 [facility] g/dL 5:30 PM CDT LABORATORY Glucose 98 70 - 100 01/31/2022 [facility] mg/dL 5:30 PM CDT LABORATORY Comment: The [...] 3:50 Unknown PM CDT PM CDT Brady Shochatovitz MD LAB_1 Performing Organization Address City/State/ZIP Code Phon e Number [facility] [address] [place] [address] [facility] [address] [place] [address], [facility] documented in this encounter Visit Diagnoses Diagnosis Other fatigue Weight loss Loss of weight Appetite loss Anorexia documented in this encounter Care Teams Fire Protection Engineering Technician Relationship Specialty Start Date End Date Justin Arora PA-C PCP - General Physician Job Placement Specialist 07/24/21 [address] [place], [place] [id number] Erin ESCALANTE Drawing Supervisor 10/24/17 BORIS Desir [phone] Fatou Haile Drawing Supervisor 06/03/18 mauri ESCALANTE Gill Net Stringer 05/28/19 documented as of this encounter
--- OUTSIDE RECORDS SUMMARY | 2022-02-21 10:26 | XMS_ITS | Encounter Summary ---
:1935 Author Organization [employer] Address [address] [place] [address] Care Team Providers Name Role Phone Justin Arora PA-C Primary Care Provider Reason for Visit Procedure/Equipment (Routine) - Incomplete Specialty Diagnoses / Procedures Referred By Contact Refer red To Contact Diagnoses Pain in hip Unsteady gait Urinary incontinence, unspecified type Justin Arora PA-C Procedures XR Pelvis Bilat Hips 2+ Views [address] [place] [address] Referral ID Status Reason Start Date Expiration Date Visits V isits Requested Authorized [id number] Incomplete 07/26/2021 10/25/2022 1 1 Encounter Details Date Type Department Care Team Description 07/26/2021 Ancillary Procedure [facility] Justin Arora, Pain in hip; [address] [facility] [place] Unsteady gait; [place] [address] [facility] Urinary incontinence, unspecified type [address] [place], [place] [phone] [address] Social History Tobacco Use Types Packs/Day Years [...] encounter Procedures Procedure Name Priority Date/Time Associated Diagnosis Comme nts XR PELVIS BILAT Routine 07/26/2021 12:23 PM Pain in hip Results for this HIPS 2+ VIEWS CDT Unsteady gait procedure are in Urinary the results incontinence, section. unspecified type documented in this encounter Results XR Pelvis Bilat Hips 2+ Views (07/26/2021 12:23 PM CDT) Anatomical Region Laterality Modality Pelvis, Hip Digital Radiography Specimen (Source) Anatomical Collection Method Collection Time Re ceived Time Location / / Volume Laterality 07/26/2021 12:04 PM CDT Impressions 07/26/2021 1:12 PM CDT COMPARISON: ??None. FINDINGS: ??No evidence of acute fractur e or dislocation. 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 Procedure Note Armani Coombs MD - 07/26/2021Fo rmatting of this note might be different from the original. IMPRESSION COMPARISON: None. FINDINGS: No evidence of acute fracture or dislocation. 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 Justin Arora PA-C RAD [facility] documented in this encounter Visit Diagnoses Diagnosis Pain in hip Pain in joint, pelvic region and thigh Unsteady gait Abnormality of gait Urinary incontinence, unspecified type documented in this encounter Care Teams Lunch Truck Operator Relationship Specialty Start Date End Date Justin Arora PA-C PCP - General Physician Manager Port 07/24/21 [address] [place] [address] Erin ESCALANTE Cut And Cover Line Worker 10/24/17 BORIS Desir [phone] Fatou Haile Cut And Cover Line Worker 06/03/18 mauri PRADOW Can Dryer 05/28/19 documented as of this encounter
--- OUTSIDE RECORDS SUMMARY | 2022-02-21 10:26 | XMS_ITS | Encounter Summary ---
:1935 Author Organization [facility] Address [address] [place] [address] Care Team Providers Name Role Phone Justin Arora PA-C Primary Care Provider Reason for Visit Reason Comments WEAKNESS,EXTREMITIES APPETITE, DECREASED Encounter Details Date Type Department Care Team Description 01/31/2022 Nurse Triage [place] [address] Justin Arora, WEAKNESS ,EXTREMITIES; Family Medicine [place] APPETITE, DECREASED [address] [place] [address] [phone] Social History Tobacco Use Types Packs/Day Years Used Date Smoking Tobacco: Never Smokeless Tobacco: Never Alcohol Use Standard Drinks/Week Comments Yes 0 (1 standard drink = 0.6 oz pure alcoho l) rare occasions (1 per month) Sex Assigned at Date Recorded Not on file documented as of this encounter Nursing Notes Asuncion De Leon, RN - 01/31/2022 1:11 PM CDT Spoke with daughter, Onel. Verbal disclosure on file. States that she was notified by her Dad that pt has been weak. Had COVID and is on day 5. Has completed antiviral treatment. Has not moved out of chair for about 2 days. Hasn't been getting up to go to the bathroom or anything. Has not been wantingto eat. Typically will get up to go to the bathroom. Has a lingering cough, otherwise symptoms of COVID have improved. Has been afebrile. Has been drinking some fluids, no concerns for dehydration. Does feel like pt is able to get up and walk, but it not wanting to. Denies any difficulty breathing, irregular heartbeat, or increased confusion. Problem list reviewed as related to this call. Reason for Disposition MODERATE weakness (i.e., interferes with work, school, normal activities) and cause unknown (Exceptions: Weakness with acute minor illness, or weakness from poor fluid intake.) Protocols used: Weakness (Generalized) and [id number] Rosa M Carrillo - 01/31/2022 1:02 PM CDT Symptoms Describe your symptoms (if pain, include location): Weak - wont get up, lack of appetite no fever recovering from covid When did they start? Yesterday Additional comments (related to the above concern): If a prescription is needed, patient would [...] on filedocumented in this encounter Care Teams Desizing Machine Operator Head End Relationship Specialty Start Date End Date Justin Arora PA-C PCP - General Physician Tower Attendant 07/24/21 [address] [place] [address] Erin ESCALANTE Apprentice Painter Brush 10/24/17 BORIS Desir [phone] Fatou Haile Apprentice Painter Brush 06/03/18 mauri garcia [facility] Dye Lab Technician 05/28/19 documented as of this encounter
--- OUTSIDE RECORDS SUMMARY | 2022-02-21 10:26 | XMS_ITS | Encounter Summary ---
:1935 Author Organization [email or web address] Address [address] [facility] [place] [address] Care Team Providers Name Role Phone Justin Arora PA-C Primary Care Provider Reason for Visit Reason Comments URINE, UNUSUAL ODOR Encounter Details Date Type Department Care Team Description 09/13/2021 Office Visit [place] [address] Justin Arora, Foul sme lling urine (Primary Dx); Family Medicine [place] Recurrent UTI [address] [place] [address] [phone] Social History Tobacco Use Types Packs/Day Years Used Date Smoking Tobacco: Never Smokeless Tobacco: Never Alcohol Use Standard Drinks/Week Comments Yes 0 (1 standard drink = 0.6 oz pure alcoho l) rare occasions (1 per month) Sex Assigned at Date Recorded Not on file documented as of this encounter Last Filed Vital Signs Vital Sign Reading Time Taken Comments Blood Pressure 116/85 09/13/2021 2:12 PM CDT Pulse 79 09/13/2021 2:12 PM CDT Temperature 36.9 ??C (98.4 ??F) 09/13/2021 2:12 PM CDT Respiratory Rate 16 09/13/2021 2:12 PM CDT Oxygen Saturation - - Inhaled Oxygen Concentration - - Weight 88.9 kg (196 lb) 09/13/2021 2:12 PM CDT Height 156.2 cm (5' 1.5) 09/13/2021 2:12 PM CDT Body Mass Index 36.43 09/13/2021 2:12 PM CDT documented in this encounter Patient Instructions Patient InstructionsJustin Arora PA-C - 09/13/2021 3:04 PM CDT Plan: 1). Will again treat with Cephalexin 500mg 3x daily for 7 days pending urine culture. Will adjust per culture results if needed. 2). Would do a repeat urine culture about a week after treatment to make sure urine has cleared. 3). Follow up with acute worsening of symptoms, looking sicker or any other concerns. documented in this encounter Progress Notes Justin Arora PA-C - 09/13/2021 2:00 PM CDT Chief Complaint Patient presents with ??? URINE, UNUSUAL ODOR History of present illness: Fidelia Vyas is a 85 y.o. female who presents with daughter with a history of dementia who has had history of UTIs and felt to have foul smelling urine by her therapist doing PT in home. Last treated for UTI 07/26/2021 with Cephalexin. UC grew E.Coli which showed sensitivity to that. At that time was not really having urinary complaints but having some back pain, hip pain and instability. She does not usually complain of anything mostly with her dementia. She is not good about drinking water. She has not otherwise had any illness symptoms including no fevers, back pain, abdominal pain, nausea or vomiting. With her last UTI treated with Cephalexin, also given Naproxen for hip pain. She was havingsome issues with hallucinations and they were not sure if related to medications or UTI itself. Those have resolved. Overall hip pain, stability and ability to ambulate have improved with home therapy. Review of Systems: As stated in HPI otherwise negative. Past Medical History: Reviewed and updated in medical record at visit Past Surgical History: Reviewed and updated in medical record at visit Family History: Reviewed and updated in medical record at visit Medications: Reviewed and reconciled in medical record at visit. Allergies: Reviewed and updated in medical record at visit. Physical Exam: Vitals: 09/13/21 1412 BP: 116/85 Pulse: 79 Resp: 16 Temp: 98.4 ??F (36.9 ??C) GEN: Alert, well nourished/hydrated in NAD EYES: PEERL, EOMI NECK: Supple, trachea midline, no LAD CHEST: Normal effort, CTA. HEART: RRR, No audible murmur, rub or gallop. ABD: No obvious tenderness to palpation and no rebound or guarding. No masses or organomegaly. No CVAT SKIN: Warm and dry without rash M/S: No joint swelling or redness. NEURO: CN 2-12 intact, non-focal exam PSYCH: Alert, pleasantly confused. . Diagnosis: Encounter Diagnoses Name Primary? Foul smelling urine Yes ??? Recurrent UTI Plan: 1). Will again treat with Cephalexin 500mg 3x daily for 7 days pending urine culture. Will adjust per culture results if needed. 2). Would do a repeat urine culture about a week after treatment to make sure urine has cleared. 3). Follow up with acute worsening of symptoms, looking sicker or any other concerns. Orders Placed This Encounter ??? Urinalysis Routine, Micro/Culture if Pos: Clean Catch ??? Urine Culture ??? cephalexin (KEFLEX) 500 MG capsule documented in this encounter Plan of Treatment Not on filedocumented as of this encounter Results (ABNORMAL) Urinalysis Routine, Micro/Culture if Pos: Clean Catch (09/13/2021 2:51 PM CDT) [facility] Method Time Signature Urine Culture Urinalysis 09/13/2021 [facility] Comment results meet 3:01 PM CDT LAB criteria for reflex, culture performed. Urine Color Yellow Straw-Yellow 09/13/2021 [facility] 3:01 PM CDT LAB Urine Clarity Clear Clear 09/13/2021 [facility] 3:01 PM CDT LAB Specific 1.025 1.005 - 09/13/2021 [facility] [place], 1.030 3:01 PM CDT LAB Urine PH Urine 5.5 5.0 - 8.0 09/13/2021 [facility] 3:01 PM CDT LAB Protein, Negative Neg/Trace 09/13/2021 [facility] Urine Qual 3:01 PM CDT LAB (mg/dL) Glucose Urine Negative Negative 09/13/2021 [facility] Qual (mg/dL) 3:01 PM CDT LAB Ketones, Negative Negative 09/13/2021 [facility] Urine (mg/dL) 3:01 PM CDT LAB Urobilinogen, 0.2 <2.0 09/13/2021 [facility] Urine (EU/dL) 3:01 PM CDT LAB Bilirubin Negative Negative 09/13/2021 [facility] Urine 3:01 PM CDT LAB Blood, Urine Small (A) Neg/Trace 09/13/2021 [facility] 3:01 PM CDT LAB Nitrite Urine Positive (A) Negative 09/13/2021 [facility] 3:01 PM CDT LAB Leukocyte Small (A) Negative 09/13/2021 [facility] Est. 3:01 PM CDT LAB Specimen Anatomical Collection Method Collection Time Receive d Time (Source) Location / / Volume Laterality Urine URINE SPECIMEN Non-blood 09/13/2021 2:51 PM 022 2:51 COLLECTION, CLEAN Collection / CDT PM CDT CATCH / Unknown Unknown Justin Arora PA-C LAB_1 Performing Organization Address City/State/ZIP Code Phon e Number [facility] [address] [place] [phone] documented in this encounter Visit Diagnoses Diagnosis Foul smelling urine - Primary Other nonspecific finding on examination of urine Recurrent UTI Urinary tract infection, site not specif ied documented in this encounter Care Teams Harvest Field Ticketer Relationship Specialty Start Date End Date Justin Arora PA-C PCP - General Physician Lead Cytogenetic Technologist 07/24/21 [address] [place] [address] Erin ESCALANTE Brewery Worker 10/24/17 BORIS Desir [phone] Fatou Haile Brewery Worker 06/03/18 mauri ESCALANTE Cloth Bin Packer 05/28/19 documented as of this encounter
--- OUTSIDE RECORDS SUMMARY | 2022-02-21 10:26 | XMS_ITS | Encounter Summary ---
:1935 Author Organization [facility] Address [address] [place] [address] Care Team Providers Name Role Phone Justin Arora PA-C Primary Care Provider Encounter Details Date Type Department Care Team Description 07/26/2021 Lab Visit [facility] Flank pain [address] [place] [address] Social History Tobacco Use Types Packs/Day Years [...] Procedure Name Priority Date/Time Associated Comments Diagnosis URINE CULTURE Routine 07/26/2021 11:38 AM Flank pain Results for this CDT procedure are i n the results section. URINALYSIS ROUTINE, Routine 07/26/2021 11:38 AM Flank pain R esults for this MICRO/CULTURE IF POS CDT procedu re are in the results section. UA MICRO Routine 07/26/2021 11:38 AM Flank pain Results for this CDT procedure are i n the results section. documented in this encounter Results (ABNORMAL) Urine Culture (07/26/2021 11:38 AM CDT) [facility] Method Time Signature Urine Culture Growth (A) 07/28/2021 [facility] 11:54 AM CDT HOSPITAL Urine Culture >100,000 CFU/mL 07/28/2021 [facility] Escherichia 11:54 AM CDT HOSPITAL coli Specimen Anatomical Collection Method Collection Time Receive d Time (Source) Location / / Volume Laterality Urine URINE SPECIMEN Non-blood 07/26/2021 11:38 COLLECTION, CLEAN Collection / AM CDT 11:48 AM C DT CATCH / Unknown Unknown Organism Antibiotic Method Susceptibility Escherichia coli Ampicillin/Sulbactam 4 mcg/mL: SUSCEPTIBLE Escherichia coli Piperacillin/Tazobactam <=2 mcg /mL: SUSCEPTIBLE Escherichia coli Cefazolin 2 mcg/mL: SUSCE PTIBLE Comment: Predicts results fo r oral agents cefaclor, cefdinir, cefpodoxime, cefprozil, cefuroxime, cepha lexin, and loracarbef when used for therapy of uncomplicated UTIs due to E. coli, K. pneumoniae, and Pr. mirabilis. Additionally, in such cases an ROLA of <16 ug/ml is considered susceptible based on a dosage regiment of 2g administered every 12 hours. Escherichia coli Ceftriaxone <=1 mcg/mL: ERIKA CEPTIBLE Escherichia coli Cefepime <=1 mcg/mL: ERIKA CEPTIBLE Escherichia coli Ciprofloxacin <=0.25 mcg/mL: SUSCEPTIBLE Escherichia coli Levofloxacin <=0.5 mcg/mL: S USCEPTIBLE Escherichia coli Ertapenem <=0.25 mcg/mL: SUSCEPTIBLE Escherichia coli Meropenem <=0.5 mcg/mL: S USCEPTIBLE Escherichia coli Tobramycin <=2 mcg/mL: ERIKA CEPTIBLE Escherichia coli Trimethoprim/Sulfamethoxazole < =0.5 mcg/mL: SUSCEPTIBLE Escherichia coli Nitrofurantoin <=16 mcg/mL: KERR SCEPTIBLE Escherichia coli Cefoxitin <=4 mcg/mL: ERIKA CEPTIBLE Escherichia coli Gentamicin <=2 mcg/mL: ERIKA CEPTIBLE Escherichia coli Cefotetan Escherichia coli Cefuroxime <=4 mcg/mL: ERIKA CEPTIBLE Justin Arora PA-C LAB_1 Performing Organization Address City/State/ZIP Code Phon e Number [address] [address] (ABNORMAL) UA Micro: Clean Catch (07/26/2021 11:38 AM CDT) [facility] Method Time Signature Red Blood Cells 0-3 0 - 3 07/26/2021 [facility] /HPF 11:48 AM CDT White Blood 51-100 (A) 0 - 5 07/26/2021 [facility] Cells /HPF 11:48 AM CDT Bacteria Many (A) None Seen 07/26/2021 [facility] /HPF 11:48 AM CDT Squamous Few None 07/26/2021 [facility] Epithelial Seen, 11:48 AM CDT Cells Occasiona l, Few /HPF White Blood Present (A) None Seen 07/26/2021 [facility] Cell Clumps /HPF 11:48 AM CDT Specimen Anatomical Collection Method Collection Time Receive d Time (Source) Location / / Volume Laterality Urine URINE SPECIMEN Non-blood 07/26/2021 11:38 COLLECTION, CLEAN Collection / AM CDT 11:38 AM C DT CATCH / Unknown Unknown Justin Arora PA-C LAB_1 Performing Organization Address City/State/ZIP Code Phon e Number [facility] [address] [place] [phone] (ABNORMAL) Urinalysis Routine, Micro/Culture if Pos: Clean Catch (07/26/2021 11:38 AM CDT) [facility] Method Time Signature Urine Culture Urinalysis 07/26/2021 [facility] Comment results meet 11:48 AM LAB criteria for CDT reflex, culture performed. Urine Color Yellow Straw-Yellow 07/26/2021 [facility] 11:48 AM LAB CDT Urine Clarity Hazy (A) Clear 07/26/2021 [facility] 11:48 AM LAB CDT Specific 1.020 1.005 - 07/26/2021 [facility] [place], 1.030 11:48 AM LAB Urine CDT PH Urine 7.0 5.0 - 8.0 07/26/2021 [facility] 11:48 AM LAB CDT Protein, Negative Neg/Trace 07/26/2021 [facility] Urine Qual 11:48 AM LAB (mg/dL) CDT Glucose Urine Negative Negative 07/26/2021 [facility] Qual (mg/dL) 11:48 AM LAB CDT Ketones, Trace (A) Negative 07/26/2021 [facility] Urine (mg/dL) 11:48 AM LAB CDT Urobilinogen, 2.0 (A) <2.0 07/26/2021 [facility] Urine (EU/dL) 11:48 AM LAB CDT Bilirubin Negative Negative 07/26/2021 [facility] Urine 11:48 AM LAB CDT Blood, Urine Trace Neg/Trace 07/26/2021 [facility] 11:48 AM LAB CDT Nitrite Urine Positive (A) Negative 07/26/2021 [facility] 11:48 AM LAB CDT Leukocyte Small (A) Negative 07/26/2021 [facility] Est. 11:48 AM LAB CDT Specimen Anatomical Collection Method Collection Time Receive d Time (Source) Location / / Volume Laterality Urine URINE SPECIMEN Non-blood 07/26/2021 11:38 2 COLLECTION, CLEAN Collection / AM CDT 11:38 AM C DT CATCH / Unknown Unknown Justin Arora PA-C LAB_1 Performing Organization Address City/State/ZIP Code Phon e Number [facility] [address] [place] [phone] documented in this encounter Visit Diagnoses Diagnosis Flank pain Abdominal pain, unspecified site documented in this encounter Care Teams Management Supervisor Relationship Specialty Start Date End Date Justin Arora PA-C PCP - General Physician Design Checker 07/24/21 [address] [place] [address] Erin ESCALANTE Contract Law Specialist 10/24/17 BORIS Desir [phone] Fatou Haile Contract Law Specialist 06/03/18 mauri ESCALANTE Leather Grader 05/28/19 documented as of this encounter
--- OUTSIDE RECORDS SUMMARY | 2022-02-21 10:26 | XMS_ITS | Encounter Summary ---
:1935 Author Organization [employer] Address [address] [place] [address] Care Team Providers Name Role Phone Justin Arora PA-C Primary Care Provider Reason for Visit Reason Comments Dme Supply Encounter Details Date Type Department Care Team Description 10/31/2021 Telephone [place] [id number] [place] [address] Jb Arora PA-C Dme Supply Medicine [address] [facility] [address] [place] [address] [place] [address] [phone] Social History Tobacco Use Types Packs/Day Years Used Date Smoking Tobacco: Never Smokeless Tobacco: Never Alcohol Use Standard Drinks/Week Comments Yes 0 (1 standard drink = 0.6 oz pure alcoho l) rare occasions (1 per month) Sex Assigned at Date Recorded Not on file documented as of this encounter Nursing Notes Margareth Luu LPN - 10/31/2021 2:19 PM CDT Faxed Kenzie Urena PA-C - 10/31/2021 2:17 PM CDT Please fax order letter as directed. Kenzie Valverde Yaakov Ramsay - 10/31/2021 1:33 PM CDT Orders - DME What equipment is being requested? Disposable mattress pads Is this new or replacement equipment? New Why is this equipment needed? inconstancies Are you currently working with a DME vendor? Yes: [facility] [phone] How would you like to receive your completed DME order? Fax to DME vendor as listed above When were you seen last for this concern? By whom? Additional comments (related to the above concern): Is it okay to leave a detailed message on your voicemail? Yes Is there anything else I can help you with today? documented in this encounter Plan of Treatment Not on filedocumented as of this encounter Visit Diagnoses Diagnosis Urinary incontinence, unspecified type - Primary documented in this encounter Care Teams Energy Efficiency Finance Manager Relationship Specialty Start Date End Date Justin Arora PA-C PCP - General Physician Deployment Manager 07/24/21 [address] [place] [address] Erin ESCALANTE Information Officer 10/24/17 BORIS Desir [phone] Fatou Haile Information Officer 06/03/18 mauri PRADOW Hem Marker 05/28/19 documented as of this encounter
--- OUTSIDE RECORDS SUMMARY | 2022-02-21 10:26 | XMS_ITS | Encounter Summary ---
:1935 Author Organization [employer] Address [address] [place] [address] Care Team Providers Name Role Phone Needs Pcp, Assignment Primary Care Provider Reason for Visit Reason Comments Refill amLODIPine (NORVASC) 5 MG ta blet [Pharmacy Med Name: AMLODIPINE BESYLATE 5MG TABLETS] Encounter Details Date Type Department Care Team Description 06/23/2021 Refill [facility], Stephanie Fink PA-C Refill (amLODIPine Medicine [address] (NORVASC) 5 MG tablet [address] [place] [address] [Pharmacy Med Name: [place] [id number] AMLODIPINE BESYLATE 5MG [phone] TABLETS]) Social History Tobacco Use Types Packs/Day Years Used Date Smoking Tobacco: Never Smokeless Tobacco: Never Alcohol Use Standard Drinks/Week Comments Yes 0 (1 standard drink = 0.6 oz pure alcoho l) rare occasions (1 per month) Sex Assigned at Date Recorded Not on file documented as of this encounter Nursing Notes Interface, Out Surescripts Prov Query - 06/23/2021 9:38 AM CST amLODIPine (NORVASC) 5 MG tablet [Pharmacy Med Name: AMLODIPINE BESYLATE 5MG TABLETS] Medication started: 09/29/2016 Last ordered by ALEIDA MCNAIR E: 06/23/2021 (0 days ago) QTY: 45, Refills: 0, Sig: take 1/2 tablet by mouth daily (unchanged) -> A duplicate request was processed on 06/23/2021. -> A qualifying visit was not found within the last 2 years. Last qualifying visit: None (A recent visit (in Internal Medicine with STEPHANIE CHÁVEZ) was found) Next scheduled visit: None Powered by [email or web address], Reference: [id number], 06/23/2021 9:38:57 AM ROLL ON MAN, Pool:LIBRADO CHÁVEZED REFILL ([id number]) ON MAN documented in this encounter Plan of Treatment Not on filedocumented as of this encounter Visit Diagnoses Diagnosis Essential hypertension (HRC) Unspecified essential hypertension documented in this encounter Care Teams Shock Absorber Installer Relationship Specialty Start Date End Date Needs Pcp, Assignment PCP - General 03/01/21 07/23/21 [place] [address] Erin PRADOW Felting Machine Operator 10/24/17 BORIS Desir [phone] Fatou Haile Felting Machine Operator 06/03/18 mauri garcia [facility] Paper Coater 05/28/19 documented as of this encounter
--- OUTSIDE RECORDS SUMMARY | 2022-02-21 10:26 | XMS_ITS | Encounter Summary ---
:1935 Author Organization [facility] Address [address] [place] [address] Care Team Providers Name Role Phone Needs Pcp, Assignment Primary Care Provider Reason for Visit Reason Comments Medicare Annual Wellness Encounter Details Date Type Department Care Team Description 06/23/2021 Office Visit [place] [address] Justin Arora Encounte r for Medicare annual wellness exam (Primary Dx); Family Medicine PA-C Essential hypertension; [address] Hyperlipidemia, unspecified hyperlipidem ia type; [place], [place] Anxiety; [phone] Dementia in Alzheimer's disease ([facility]); [phone] 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 ([facility]) (Work) Social History Tobacco Use Types Packs/Day Years Used Date Smoking Tobacco: Never Smokeless Tobacco: Never Alcohol Use Standard Drinks/Week Comments Yes 0 (1 standard drink = 0.6 oz pure alcoho l) rare occasions (1 per month) Sex Assigned at Date Recorded Not on file documented as of this encounter Last Filed Vital Signs Vital Sign Reading Time Taken Comments Blood Pressure 139/80 06/23/2021 1:11 PM CHAIRMAN AND CHIEF EXECUTIVE OFFICER Pulse 72 06/23/2021 1:11 PM CHAIRMAN AND CHIEF EXECUTIVE OFFICER Temperature - - Respiratory Rate 16 06/23/2021 1:11 PM CHAIRMAN AND CHIEF EXECUTIVE OFFICER Oxygen Saturation - - Inhaled Oxygen Concentration - - Weight 88.9 kg (196 lb) 06/23/2021 1:11 PM CHAIRMAN AND CHIEF EXECUTIVE OFFICER Height 156.2 cm (5' 1.5) 06/23/2021 1:11 PM CHAIRMAN AND CHIEF EXECUTIVE OFFICER Body Mass Index 36.43 06/23/2021 1:11 PM CHAIRMAN AND CHIEF EXECUTIVE OFFICER documented in this encounter Patient Instructions Patient InstructionsJustin Arora PA-C - 06/23/2021 1:00 PM CST Plan: 1). Will continue current medication regimen. Will follow up on labs and address any concerns. 2). Will have fill out advanced directives. 3). Follow up with any other acute issues or concerns. Annual Wellness Visit Summary Your care team is recommending the following tests, procedures or services. Some of these recommendations may not be fully covered by Medicare or your insurance. If you have questions, check with your insurance to determine coverage before completing these services. Health Maintenance Due Health Maintenance Due Topic Date Due ??? COVID-19 Vaccine (1) Never done If your Medicare Welcome or Annual Wellness Visit is showing you are due in the above list, this will be updated after this visit. You had this completed today and are not due for another year. RMAN AND CHIEF EXECUTIVE OFFICER documented in this encounter Progress Notes Justin Arora PA-C - 06/23/2021 1:00 PM CST Medicare Annual Wellness Visit Subjective/Historical: Fidelia Vyas is a 85 y.o. old female Chief Complaint Patient presents with ??? Medicare Annual Wellness Here with daughter during visit Current Concerns: -No acute issues or concerns but has the followin). Dementia: Has been slowly progressing with lapses in short term memory. Followed by Dr Aldridge with neurology. Is on Aricept 10mg daily. Does have episodes of agitation where she becomes more argumentative. Was prescribed Seroquel 12.5 to 25mg to take as needed for these episodes however pharmacy has not filled stating waiting for authorization to fill it. 2). HTN: Controlled on Amlodipine 5mg daily, Labetalol 100mg daily and Maxide 25/37.5mg daily. Does take daily ASA. Seems to tolerate regimen well. No complaints of chest pain, shortness of breath, episodes of syncope or edema. 3). Hyperlipidemia: On Crestor 40mg daily. 4). Depression: Seems to do OK on Effexor 75mg daily. Is difficult to assess with her dementia. Medicare Wellness: Medicare wellness flow sheet reviewed Lives with on farm who cares for her mostly and sets up her medications. They mostly have one level living and physically she gets around well with no history of or concern for falls. Daughter does not express any current concerns for change in living situation such as assisted living or memory care. Advance Directives: No advance directives are on file. Discussed completing advance directives. Written information for advance directives was given. Observed Vitals: There were no vitals taken for this visit. Physical Exam: General Appearance: alert, well appearing and in no apparent distress HEENT: lids normal, sclera clear, conjunctiva normal, EOMs intact and pupils equal round and reactive to light and oropharynx clear, ear canals clear and TMs normal Neck: no lymphadenopathy and no thyromegaly or nodules Heart: regular rate and rhythm and no murmurs, gallops or rubs Lungs: clear to ausculation, no wheezes, rales or rhonchi, equal breath sounds throughout and normalrespiratory effort Abdomen: soft, nondistended, nontender, no palpable masses and no organomegaly Extremities: no edema Musculoskeletal: Degenerative changes. Moves all exteremities well. Skin: no rashes or worrisome lesions Neurologic: normal speech, no facial droop, alert and oriented x 3, normal gait and cranial nerves 2-12 intact Psychiatric: affect/mood normal, cooperative and memory impaired Assessment/Plan 1. Encounter for Medicare annual wellness exam 2. Essential hypertension (HRC) 3. Hyperlipidemia, unspecified hyperlipidemia type (HRC) 4. Anxiety (HRC) 5. 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 Will continue current medication regimen. Will follow up on labs and address any concerns. 2). Will have fill out advanced directives. 3). Follow up with any other acute issues or concerns. Orders Placed This Encounter ??? Complete Blood Count -W/Diff ??? Comp Metabolic Panel ??? Lipid Panel - LDLD If Trig High ??? amLODIPine (NORVASC) 5 MG tablet ??? rosuvastatin (CRESTOR) 40 MG tablet ??? triamterene-hydrochlorothiazide (MAXZIDE-25) 37.5-25 MG tablet ??? venlafaxine (EFFEXORXR) 75 MG 24 hour release capsule ??? aspirin EC 81 MG enteric coated tablet Counseling and education provided today includes proper nutrition and health habits, fall prevention, and for those items ordered above. See plan for future preventive services in Patient Instructions. Justin Arora PA-C 06/23/2021, 1:09 PM RMAN AND CHIEF EXECUTIVE OFFICER documented in this encounter Plan of Treatment Not on filedocumented as of this encounter Results Lipid Panel - LDLD If Trig High (06/23/2021 1:52 PM CHAIRMAN AND CHIEF EXECUTIVE OFFICER) Analysis Performed At [facility] Signature Cholesterol 157 0 - 199 06/23/2021 [facility] mg/dL 5:48 PM CHAIRMAN AND CHIEF EXECUTIVE OFFICER [facility] Triglyceride 109 <=149 06/23/2021 [facility] mg/dL 5:48 PM CHAIRMAN AND CHIEF EXECUTIVE OFFICER [facility] HDL Cholesterol 58 >=40 mg/dL 06/23/2021 [facility] 5:48 PM CHAIRMAN AND CHIEF EXECUTIVE OFFICER [facility] LDL, Calculated 77 <130 mg/dL 06/23/2021 [facility] 5:48 PM CHAIRMAN AND CHIEF EXECUTIVE OFFICER [facility] Non HDL Chol, 99 <=159 06/23/2021 [facility] Calculated mg/dL 5:48 PM CHAIRMAN AND CHIEF EXECUTIVE OFFICER [facility] Cholesterol/HDL 2.7 06/23/2021 [facility] Ratio 5:48 PM CHAIRMAN AND CHIEF EXECUTIVE OFFICER [facility] Hours Fasting 4 06/23/2021 [facility] 5:48 PM CHAIRMAN AND CHIEF EXECUTIVE OFFICER Specimen Anatomical Collection Method / Collection Time Recei miladis Time (Source) Location / Volume Laterality Blood Venipuncture / 06/23/2021 1:52 06/23/2021 1:52 Unknown PM CHAIRMAN AND CHIEF EXECUTIVE OFFICER PM CHAIRMAN AND CHIEF EXECUTIVE OFFICER Justin Arora PA-C LAB_1 Performing Organization Address City/State/ZIP Code Phon e Number [facility] [address] [place] [address] [facility] [address] [place] [address], [facility] (ABNORMAL) Comp Metabolic Panel (06/23/2021 1:52 PM CHAIRMAN AND CHIEF EXECUTIVE OFFICER) Analysis Performed At [facility] Time Signature Sodium 140 136 - 145 06/23/2021 [facility] mmol/L 5:48 PM CHAIRMAN AND CHIEF EXECUTIVE OFFICER [facility] Potassium 3.5 3.5 - 5.1 06/23/2021 [facility] mmol/L 5:48 PM CHAIRMAN AND CHIEF EXECUTIVE OFFICER [facility] Chloride 103 98 - 109 06/23/2021 [facility] mmol/L 5:48 PM CHAIRMAN AND CHIEF EXECUTIVE OFFICER [facility] CO2 30 (H) 20 - 29 06/23/2021 [facility] mmol/L 5:48 PM CHAIRMAN AND CHIEF EXECUTIVE OFFICER [facility] Anion Gap 7 7 - 16 06/23/2021 [facility] mmol/L 5:48 PM CHAIRMAN AND CHIEF EXECUTIVE OFFICER [facility] Calcium 8.6 8.4 - 10.4 06/23/2021 [facility] mg/dL 5:48 PM CHAIRMAN AND CHIEF EXECUTIVE OFFICER [facility] BUN 9 7 - 26 06/23/2021 [facility] mg/dL 5:48 PM CHAIRMAN AND CHIEF EXECUTIVE OFFICER [facility] Creatinine 0.70 0.55 - 06/23/2021 [facility] 1.02 mg/dL 5:48 PM CHAIRMAN AND CHIEF EXECUTIVE OFFICER [facility] GFR, Estimated >60 >60 06/23/2021 [facility] mL/min/1.7 5:48 PM CHAIRMAN AND CHIEF EXECUTIVE OFFICER [facility] 3m2 Alkaline 47 40 - 150 06/23/2021 [facility] Phosphatase U/L 5:48 PM CHAIRMAN AND CHIEF EXECUTIVE OFFIC[facility] AST (SGOT) 20 10 - 40 06/23/2021 [facility] U/L 5:48 PM CHAIRMAN AND CHIEF EXECUTIVE OFFICER [facility] ALT (SGPT) <10 0 - 55 U/L 06/23/2021 [facility] 5:48 PM CHAIRMAN AND CHIEF EXECUTIVE OFFICER [facility] Bilirubin, Total 0.8 0.2 - 1.2 06/23/2021 [facility] mg/dL 5:48 PM CHAIRMAN AND CHIEF EXECUTIVE OFFICER [facility] Protein, Total 7.0 6.4 - 8.3 06/23/2021 [facility] g/dL 5:48 PM CHAIRMAN AND CHIEF EXECUTIVE OFFICER [facility] Albumin 3.7 3.5 - 5.0 06/23/2021 [facility] g/dL 5:48 PM CHAIRMAN AND CHIEF EXECUTIVE OFFICER [facility] Glucose 84 70 - 100 06/23/2021 [facility] mg/dL 5:48 PM CHAIRMAN AND CHIEF EXECUTIVE OFFICER [facility] Comment: The given reference range is fo r the fasting state. Non-fasting reference range for glucose is 70 - 180 mg/dL. Hours Fasting 4 06/23/2021 5:48 PM CHAIRMAN AND CHIEF EXECUTIVE OFFICER [facility] Specimen Anatomical Collection Method / Collection Time Recei miladis Time (Source) Location / Volume Laterality Blood Venipuncture / 06/23/2021 1:52 06/23/2021 1:52 Unknown PM CHAIRMAN AND CHIEF EXECUTIVE OFFICER PM CHAIRMAN AND CHIEF EXECUTIVE OFFICER Justin Arora PA-C LAB_1 Performing Organization Address City/State/ZIP Code Phon e Number [facility] [address] [place] [address] [facility] [address] [place] [address], [facility] documented in this encounter Visit Diagnoses Diagnosis Encounter for Medicare annual wellness e xam - Primary Essential hypertension (HRC) Unspecified essential hypertension Hyperlipidemia, unspecified hyperlipidem ia type (HRC) Anxiety (HRC) Anxiety state, unspecified Dementia in Alzheimer's disease (HRC) Alzheimer's disease Moderate episode of recurrent major depr essive disorder (HRC) documented in this encounter Care Teams Restorer Lace And Textiles Relationship Specialty Start Date End Date Needs Pcp, Assignment PCP - General 03/01/21 07/23/21 [place] [address] Erin ESCALANTE Hvac Field Service Technician 10/24/17 BORIS Desir [phone] Fatou Haile Hvac Field Service Technician 06/03/18 mauri ESCALANTE Mail Deliverer 05/28/19 documented as of this encounter
--- OUTSIDE RECORDS SUMMARY | 2022-02-21 10:26 | XMS_ITS | Encounter Summary ---
:1935 Author Organization [employer] Address [address] [place] [address] Care Team Providers Name Role Phone Justin Arora PA-C Primary Care Provider Reason for Visit Reason Comments Home Visit Service Encounter Details Date Type Department Care Team Description 07/28/2021 Telephone [facility] SCHEDULING Justin Arora PA-C Home Visit Service DEPARTMENT [id number] [place] [phone] (Wo rk) Social History Tobacco Use Types Packs/Day Years Used Date Smoking Tobacco: Never Smokeless Tobacco: Never Alcohol Use Standard Drinks/Week Comments Yes 0 (1 standard drink = 0.6 oz pure alcoho l) rare occasions (1 per month) Sex Assigned at Date Recorded Not on file documented as of this encounter Nursing Notes Justin Arora PA-C - 07/28/2021 12:42 PM CDT Order placed for home PT evaluation/treatment. I don't know if order needs to be faxed to [facility]. Alicia Payan LPN - 07/28/2021 10:27 AM CDT Good morning Thank you for this referral for home care. [facility] at capacity and unable to accept this client. Central Intake was able to find an agency that can meet the needs of this client. [facility] [phone]. Client has been informed of acceptance. Please sign and complete visit note. Thanks again, Alicia Payan LPN 07/28/2021, 10:27 AM documented in this encounter Plan of Treatment Not on filedocumented as of this encounter Visit Diagnoses Not on filedocumented in this encounter Care Teams Hydrochloric Manufacturing Supervisor Relationship Specialty Start Date End Date Justin Arora PA-C PCP - General Physician Timber Cruiser 07/24/21 [address] [place] [address] Erin ESCALANTE [place] 10/24/17 BORIS Desir [phone] Fatou Haile [place] 06/03/18 mauri garcia [facility] Stitcher Around 05/28/19 documented as of this encounter
--- OUTSIDE RECORDS SUMMARY | 2022-02-21 10:26 | XMS_ITS | Encounter Summary ---
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 The r ecommended service and/or location may not be covered by your insurance plan. Please c all the number on your insurance card to find out your specific benefits and coverage for the recommended services and/or location. If you need help scheduling the recommen ded services, please ask your clinician's staff to assist you. [facility] (Routine) - New Request Specialty Diagnoses / Procedures Referred By Contact Refer red To Contact Diagnoses Pain in hip Unsteady gait Urinary incontinence, unspecified type [place] [address] [place] [address] [place] [address] [place] [address] Phone: Fax: Referral ID Status Reason Start Date Expiration Date Visits V isits Requested Authorized New Request 07/26/2021 10/25/[phone] Scheduling Instructions Your provider has recommended an appoint ment with Home Care. If you have not been contacted, please call [phone] to s janadule your appointment. Consult/Transfer Care (Routine) - New Request Specialty Diagnoses / Procedures Referred By Contact Refer red To Contact Diagnoses Pain in hip Unsteady gait Urinary incontinence, unspecified type Justin Arora PA-C [address] [place] [address] Referral ID Status Reason Start Date Expiration Date Visits V isits Requested Authorized New Request 07/26/2021 10/25/2022 1 1 Scheduling Instructions Your provider has recommended an appoint ment with [facility]. You can quickly make your appointment online at Zuldi/schedule. You can also call [phone] for help scheduling yo ur appointment. We suggest you call your health insurance company about your cove rage and benefits for this appointment. Procedure/Equipment (Routine) - Incomplete Specialty Diagnoses / Procedures Referred By Contact Refer red To Contact Diagnoses Pain in hip Unsteady gait Urinary incontinence, unspecified type Justin Arora PA-C Procedures XR Pelvis Bilat Hips 2+ Views [id number] [place] [address] Referral ID Status Reason Start Date Expiration Date Visits V isits Requested Authorized Incomplete 07/26/2021 10/25/2022 1 1 Reason for Visit Reason Comments Back Pain Decreased mobility due to th e back pain x3mo off and on Encounter Details Date Type Department Care Team Description 07/26/2021 Office Visit [place] [address] Justin Arora, Pain in hip (Primary Dx); Family Medicine GOLDY Unsteady gait; [address] Urinary incontinence, unspecified type; [place], [place] Dementia in A lzheimer's disease ([facility]); [id number] Cystitis [phone] Social History Tobacco Use Types Packs/Day Years Used Date Smoking Tobacco: Never Smokeless Tobacco: Never Alcohol Use Standard Drinks/Week Comments Yes 0 (1 standard drink = 0.6 oz pure alcoho l) rare occasions (1 per month) Sex Assigned at Date Recorded Not on file documented as of this encounter Last Filed Vital Signs Vital Sign Reading Time Taken Comments Blood Pressure 131/89 07/26/2021 11:06 AM CDT Pulse 77 07/26/2021 11:06 AM CDT Temperature - - Respiratory Rate 16 07/26/2021 11:06 AM CDT Oxygen Saturation - - Inhaled Oxygen Concentration - - Weight 88.9 kg (196 lb) 07/26/2021 11:06 AM CDT Height 156.2 cm (5' 1.5) 07/26/2021 11:06 AM CDT Body Mass Index 36.43 07/26/2021 11:06 AM CDT documented in this encounter Patient Instructions Patient InstructionsJustin Arora PA-C - 07/26/2021 11:00 AM CDT Plan: 1). Will follow up on x-rays and any concerns. 2). Referral to ortho for evaluation and other management options 3). For now will have use Naproxen 500mg twice daily as needed for pain. 4). Use walker for ambulation. 5). Orders placed for home physical therapy assessment. 6). For urinary tract infection: Cephalexin 500mg 3x daily for 7 days pending urine culture. May need to change based on urine culture. 7). Follow up with acute worsening of symptoms or any other concerns. documented in this encounter Progress Notes Justin Arora PA-C - 07/26/2021 11:00 AM CDT Chief Complaint Patient presents with ??? Back Pain Decreased mobility due to the back pain x3mo off and on History of present illness: Fidelia Vyas is a pleasant 85 y.o. female who presents with her daughter today for ongoing lower back discomfort radiating to the right hip. Duration of symptoms intermittent over the last 3 months,worsening in the last 3 weeks with patient requiring considerable effort to get up and move. Daughter states Pt was previously able to ambulate without a walker, now requires a walker to prevent falling. Discomfort causing decreased activity,prolonged sitting in her recliner and deliberate fluid restriction to limit bathroom visits. Today, Pt required a walker to ambulate from the house to the car which she was previously able to to unassisted. Daughter also verbalizing concern for patients declining mental status, primarily minimizing her mobility limits and ability to perform ADLs. Daughter also asking if home health care or assistance is an available option. Review of Systems: Constitutional: No fevers, chills, fatigue CHEST: No cough or breathing difficulty HEART: No chest pain, no edema. ABD: No abdominal pain, nausea, vomiting or diarrhea. No bowel dysfunction : Urinary inconvenience, denies pain with urination. M/S: Positive for back pain. Pain radiating to right hip, increases weakness, intermittent right hipjoint pain, no evidence of swelling NEURO: No headaches, dizziness, weakness SKIN: No rashes or itching, no worrisome skin lesions. PSYCH: No concers with anxiety or depression. Past Medical History: Reviewed and updated in medical record at visit Past Surgical History: Reviewed and updated in medical record at visit Family History: Reviewed and updated in medical record at visit Medications: Reviewed and reconciled in medical record at visit. Allergies: Reviewed and updated in medical record at visit. Physical Exam: Vitals: 07/26/21 1106 BP: 131/89 Pulse: 77 Resp: 16 GEN: Alert, oriented, well nourished in NAD EYES: PEERL, EOMI NECK: Supple, trachea midline, no LAD CHEST: Normal effort, CTA. HEART: RRR, No audible murmur, rub or gallop. ABD: Soft, non-tender. No rebound or guarding. No CVAT on palation SKIN: Warm and dry without rash M/S: BACK: Mild to moderate TTP noted to the bilateral lower back and right hip, limited ROM due to discomfort. Normal strength 5/5 and sensation, symmetric in BLE. DTRs are 2+ and Symmetric in BLEs. No joint swelling or redness. Significant guarding of Rt hip during ambulation with 2 person assist, unsteady when standing independent. NEURO: CN 2-12 intact, non-focal exam PSYCH: Alert and oriented X3 Normal affect. Hip/Pelvis X-ray done: My interpretation: Degenerative changes. No acute findings Radiology over read: FINDINGS: No evidence of acute fracture or dislocation. 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 Diagnosis: Encounter Diagnoses Name Primary? Pain in hip Yes ??? Unsteady gait ??? Urinary incontinence, unspecified type ??? 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 Cystitis Plan: 1). Will follow up on x-rays and any concerns. 2). Referral to ortho for evaluation and other management options 3). For now will have use Naproxen 500mg twice daily as needed for pain. 4). Use walker for ambulation. 5). Orders placed for home physical therapy assessment. 6). For urinary tract infection: Cephalexin 500mg 3x daily for 7 days pending urine culture. May need to change based on urine culture. 7). Follow up with acute worsening of symptoms or any other concerns. Orders Placed This Encounter ??? Urinalysis Routine, Micro/Culture if Pos: Clean Catch ??? XR Pelvis Bilat Hips 2+ Views ??? Orthopaedic Consult Adult/Peds ??? Home Care ??? cephalexin (KEFLEX) 500 MG capsule ??? 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 Justin SALMERON GD (ABNORMAL) Urinalysis Routine, Micro/Culture if Pos: Clean Catch (07/26/2021 11:38 AM CDT) [facility] Method Time Signature Urine Culture Urinalysis 07/26/2021 [facility] Comment results meet 11:48 AM LAB criteria for CDT reflex, culture performed. Urine Color Yellow Straw-Yellow 07/26/2021 [facility] 11:48 AM LAB CDT Urine Clarity Hazy (A) Clear 07/26/2021 [facility] 11:48 AM LAB CDT Specific 1.020 1.005 - 07/26/2021 [facility] [place], 1.030 11:48 AM LAB Urine CDT PH Urine 7.0 5.0 - 8.0 07/26/2021 [facility] 11:48 AM LAB CDT Protein, Negative Neg/Trace 07/26/2021 [facility] Urine Qual 11:48 AM LAB (mg/dL) CDT Glucose Urine Negative Negative 07/26/2021 [facility] Qual (mg/dL) 11:48 AM LAB CDT Ketones, Trace (A) Negative 07/26/2021 [facility] Urine (mg/dL) 11:48 AM LAB CDT Urobilinogen, 2.0 (A) <2.0 07/26/2021 [facility] Urine (EU/dL) 11:48 AM LAB CDT Bilirubin Negative Negative 07/26/2021 [facility] Urine 11:48 AM LAB CDT Blood, Urine Trace Neg/Trace 07/26/2021 [facility] 11:48 AM LAB CDT Nitrite Urine Positive (A) Negative 07/26/2021 [facility] 11:48 AM LAB CDT Leukocyte Small (A) Negative 07/26/2021 [facility] Est. 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
--- OUTSIDE RECORDS SUMMARY | 2022-02-21 10:26 | XMS_ITS | Encounter Summary ---
:1935 Author Organization Locally Address [address] [place] [address] Care Team Providers Name Role Phone Needs Pcp, Assignment Primary Care Provider Reason for Visit Reason Comments Follow-up Encounter Details Date Type Department Care Team Description 05/11/2021 Office Visit [facility] 393 Jose Aldridge D ementia in Neurology MD Alzheimer's disease [address] [facility] [facility] D[facility] [address] [place] [phone] (Wo rk) Social History Tobacco Use Types Packs/Day Years Used Date Smoking Tobacco: Never Smokeless Tobacco: Never Alcohol Use Standard Drinks/Week Comments Yes 0 (1 standard drink = 0.6 oz pure alcoho l) rare occasions (1 per month) Sex Assigned at Date Recorded Not on file documented as of this encounter Last Filed Vital Signs Vital Sign Reading Time Taken Comments Blood Pressure 136/69 05/11/2021 2:55 PM LAND DEGRADATION ANALYST Pulse 74 05/11/2021 2:55 PM LAND DEGRADATION ANALYST Temperature - - Respiratory Rate 16 05/11/2021 2:55 PM LAND DEGRADATION ANALYST Oxygen Saturation - - Inhaled Oxygen Concentration - - Weight - - Height - - Body Mass Index - - documented in this encounter Patient Instructions Patient InstructionsJose Aldridge MD - 05/11/2021 3:30 PM CST Continue same dose of donepezil If sundowning gets worse, a small dose of medication in the early evening might be helpful Social work through primary care can be helpful for other care in the home You can use quetiapine - 1/2 to 1 pill daily as needed for agitation. I will send this to pharmacy Follow up with me in about 1 year Jose Aldridge MD DEGRADATION ANALYST documented in this encounter Progress Notes Jose Aldridge MD - 05/11/2021 3:30 PM CST Chief complaint: Follow-up History of present illness: 85-year-old woman here for follow-up. She has a history of Alzheimer's dementia. Since her last visit with me 1-1/2 years ago, she has had some progression. She lives with her who helps care for her. She has a daughter that lives close by as well. It sounds like shehas fairly frequent episodes of agitation, particularly in the evening. She gets a little bit more confused in the evening as well. She takes donepezil 10 mg once per day. It does not sound like she suffers from significant depression or anxiety, mostly just the agitation mentioned above. Physically she does reasonably well, she has not had any recent falls or significant changes in gait or mobility. Physical exam: Vital signs: Blood pressure 136/69, pulse 74, respiratory rate 16. Neurologic exam was remarkable for not being oriented to the month, year, she did not know the name of the president, she was able to name 2/2 objects correctly. Impression: Alzheimer's dementia, moderate severity. She is on the appropriate medication therapy. Iwill send a prescription for quetiapine 25 mg pills, she can take half to one pill daily as needed for agitation particularly in the evening. We discussed that she will likely need continued and increasing help and support as her memory disorder progresses. It sounds like there are no major safety issues at the current time but family will be on the lookout. Social work consult could be considered through primary care to look into other help in the home. I am happy to see her back in one year, sooner as needed. A total of 34 minutes were spent on the visit, between the visit itself, chart review, documentation. 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
--- OUTSIDE RECORDS SUMMARY | 2022-02-21 10:26 | XMS_ITS | Encounter Summary ---
:1935 Author Organization [employer] Address [address] [place] [address] Care Team Providers Name Role Phone Justin Arora PA-C Primary Care Provider Reason for Visit Reason Comments CONFUSION HALLUCINATIONS Encounter Details Date Type Department Care Team Description 08/03/2021 Nurse Triage [place] [address] Justin Arora CONFUSIO N; Family Medicine [facility] HALLUCINATIONS [address] [place] [address] [phone] Social History Tobacco Use Types Packs/Day Years Used Date Smoking Tobacco: Never Smokeless Tobacco: Never Alcohol Use Standard Drinks/Week Comments Yes 0 (1 standard drink = 0.6 oz pure alcoho l) rare occasions (1 per month) Sex Assigned at Date Recorded Not on file documented as of this encounter Nursing Notes Justin Arora PA-C - 08/03/2021 12:21 PM CDT Agree with plan to go to Helga Henning RN - 08/03/2021 10:30 AM CDT Clinician Action: Input needed regarding new confusion/hallucinations, they are taking the patient to Urgent Care. Please advise if you want to see her instead. Clinician Next Step: Route to [facility] to follow up Specific Request(s): 1. Patient's daughter Onel calling. Is having take the patient to Urgent Care now. Yesterdaythe patient was having hallucinations, talking about things not there, seeing things. Onel has not talked to her parents today to see if better. Just finishing RX for UTI from 07/26/21. POA and Verbal Disclosure on file for Onel Sykes calling. Patient had hallucinations yesterday. Onel not with her today, has not talked to dad/patients . Patient lives with . Recent UTI, takes her last dose of RX today. Patient with Alzheimer's. Yesterday was seeing things all day, Onel found out when she called. Patient had poor sleep the night before, was up talking. Also taking Naproxen, states she called the pharmacy, and lowrisk for hallucinations on that. States the patient was talking confused, never did this before. No head injury. Speech clear. No numbness or weakness, has a history of a hard time walking. Was talkingabout neighbor who hauled her house away, camel coming down the road, cat in he house, people not there. Had not had much water, does drink coffee. States normally the patient just forgets things. Problem list reviewed as related to this call. LV with PCP: 07/26/21 Reason for Disposition ??? Longstanding confusion (e.g., dementia, stroke) and worsening Protocols used: CONFUSION - [id number] documented in this encounter Plan of Treatment Not on filedocumented as of this encounter Visit Diagnoses Not on filedocumented in this encounter Care Teams Hospital Chaplain Relationship Specialty Start Date End Date Justin Arora PA-C PCP - General Physician Target Aircraft Technician 07/24/21 [address] [place] [address] Erin ESCALANTE Nuisance Wildlife Trapper 10/24/17 BORIS Desir [phone] Fatou Haile Nuisance Wildlife Trapper 06/03/18 mauri garcia DO ALL OPERATOR Tissue Technician 05/28/19 documented as of this encounter
--- OUTSIDE RECORDS SUMMARY | 2022-02-21 10:26 | XMS_ITS | Encounter Summary ---
:1935 Author Organization [employer] Address [address] [place] [address] Care Team Providers Name Role Phone Needs Pcp, Assignment Primary Care Provider Reason for Visit Reason Comments Refill amLODIPine (NORVASC) 5 MG ta blet [Pharmacy Med Name: AMLODIPINE BESYLATE 5MG TABLETS]; rosuvastatin (LUCY TOR) 40 MG tablet [Pharmacy Med Name: ROSUVASTATIN 40MG TABLETS] Encounter Details Date Type Department Care Team Description 06/21/2021 Refill [facility] Justin Arora, Marianne ll (amLODIPine Medicine PA-C (NORVASC) 5 MG tablet [address] [Pharmacy Med Name: [place] [address] [place] [address] AMLODIPINE BESYLATE 5MG [phone] (Wo rk) TABLETS]; rosuvastatin (CRESTOR) 40 MG tablet [Pharmacy Med N denny: ROSUVASTATIN 40 MG TABLETS]) Social History Tobacco Use Types Packs/Day Years Used Date Smoking Tobacco: Never Smokeless Tobacco: Never Alcohol Use Standard Drinks/Week Comments Yes 0 (1 standard drink = 0.6 oz pure alcoho l) rare occasions (1 per month) Sex Assigned at Date Recorded Not on file documented as of this encounter Nursing Notes Cidny Crane RN - 06/23/2021 5:36 PM CST Requested Prescriptions Refused Prescriptions Disp Refills ??? rosuvastatin (CRESTOR) 40 MG tablet [Pharmacy Med Name: ROSUVASTATIN 40MG TABLETS] 90 Tablet 0 Sig: TAKE 1 TABLET(40 MG) BY MOUTH DAILY Refused By: CINDY CRANE Reason for Refusal: Duplicate Error ??? amLODIPine (NORVASC) 5 MG tablet [Pharmacy Med Name: AMLODIPINE BESYLATE 5MG TABLETS] 45 Tablet 0 Sig: TAKE 1/2 TABLET(2.5 MG) BY MOUTH DAILY Refused By: CINDY CRANE Reason for Refusal: Duplicate Error rxs 06/23/21 OAR MAKER Interface, Out Surescripts Prov Query - 06/21/2021 12:58 PM CST amLODIPine (NORVASC) 5 MG tablet [Pharmacy Med Name: AMLODIPINE BESYLATE 5MG TABLETS] Medication started: 09/29/2016 Last ordered by JUSTIN ARORA: 06/21/2021 (0 days ago) QTY: 15, Refills: 0, Sig: take 0.5 tablets (2.5 mg) by mouth daily. (changed but equivalent) -> The request contains a note from the pharmacy. -> A qualifying visit was not found within the last 2 years. Last qualifying visit: None (A recent visit (in Internal Medicine with STEPHANIE CHÁVEZ) was found) Next scheduled visit: 06/23/2021 (with JUSTIN ARORA) Powered by [employer], Reference: [id number], 06/21/2021 12:58:30 PM BOAT OAR MAKER, Pool: LIBRADO HERNANDEZ REFILL ([id number]) rosuvastatin (CRESTOR) 40 MG tablet [Pharmacy Med Name: ROSUVASTATIN 40MG TABLETS] Medication started: 07/11/2016 Last ordered by JUSTIN ARORA: 06/21/2021 (0 days ago) QTY: 30, Refills: 0, Sig: take 1 tablet (40mg) by mouth daily. (changed but equivalent) -> The request contains a note from the pharmacy. -> A qualifying visit was not found within the last 2 years. Last qualifying visit: None (A recent visit (in Internal Medicine with STEPHANIE CHÁVEZ) was found) Next scheduled visit: 06/23/2021 (with JUSTIN ARORA) Powered by [employer], Reference: [id number], 06/21/2021 12:58:30 PM BOAT OAR MAKER, Pool: LIBRADO HERNANDEZ REFILL ([id number]) OAR MAKER documented in this encounter Plan of Treatment Not on filedocumented as of this encounter Visit Diagnoses Diagnosis Hyperlipidemia, unspecified hyperlipidem ia type (HRC) Essential hypertension (HRC) Unspecified essential hypertension documented in this encounter Care Teams Per Diem Physical Therapist Assistant Relationship Specialty Start Date End Date Needs Pcp, Assignment PCP - General 03/01/21 07/23/21 [place] [address] Erin ESCALANTE Welding Instructor 10/24/17 BORIS Desir [phone] Fatou Haile Welding Instructor 06/03/18 mauri ESCALANTE Visitor Service Assistant 05/28/19 documented as of this encounter
--- OUTSIDE RECORDS SUMMARY | 2022-02-21 10:26 | XMS_ITS | Encounter Summary ---
:1935 Author Organization [facility] Address [address] [place] [address] Care Team Providers Name Role Phone Justin Arora PA-C Primary Care Provider Reason for Visit Reason Comments Dme Supply Encounter Details Date Type Department Care Team Description 12/08/2021 Telephone [place] [address] Family Jb Arora PA-C Dme Supply Medicine [address] [facility] [address] [place] [address] [place] [address] [phone] Social History Tobacco Use Types Packs/Day Years Used Date Smoking Tobacco: Never Smokeless Tobacco: Never Alcohol Use Standard Drinks/Week Comments Yes 0 (1 standard drink = 0.6 oz pure alcoho l) rare occasions (1 per month) Sex Assigned at Date Recorded Not on file documented as of this encounter Nursing Notes Jasmina Vega LPN - 12/08/2021 5:40 PM CDT faxed Justin Arora PA-C - 12/08/2021 1:55 PM CDT Order written to print and fax Saumya Hurley - 12/08/2021 11:23 AM CDT Orders - DME What equipment is being requested? Order for Disposable Mattress Protector or Chucks should be modified as two per day, 62 per month. Caller stated that the change is due to Pt's family request. Please refer to previous phone note on 12/06. Please fax a new order. Is this new or replacement equipment? N/a Why is this equipment needed? N/a Are you currently working with a DME vendor? Yes: [facility] How would you like to receive your completed DME order? Fax to [facility] at this fax number: [phone] When were you seen last for this concern? By whom? N/a Additional comments (related to the above concern): Is it okay to leave a detailed message on your voicemail? Yes Is there anything else I can help you with today? documented in this encounter Plan of Treatment Not on filedocumented as of this encounter Visit Diagnoses Diagnosis Urinary incontinence, unspecified type - Primary documented in this encounter Care Teams Manager Provider Relations Relationship Specialty Start Date End Date Justin Arora PA-C PCP - General Physician Bedspread Folder 07/24/21 [address] [place] [address] Erin ESCALANTE Hand Bobbin Cleaner 10/24/17 BORIS Desir [phone] Fatou Haile Hand Bobbin Cleaner 06/03/18 mauri PRADOW Flute Polisher 05/28/19 documented as of this encounter
--- OUTSIDE RECORDS SUMMARY | 2022-02-21 10:26 | XMS_ITS | Encounter Summary ---
:1935 Author Organization [facility] Address [address] [place] [address] Care Team Providers Name Role Phone Needs Pcp, Assignment Primary Care Provider Reason for Visit Reason Comments Refill triamterene-hydrochlorothiaz ricky (MAXZIDE-25) 37.5-25 MG tablet [Pharmacy Med Name: TRIAMTERENE 37.5MG/ HC TZ 25MG TABS] Encounter Details Date Type Department Care Team Description 06/21/2021 Refill [place] [facility] Maite, Justin Carbajal, Elidiai Medicine PA-C (triamterene-hydrochloro [address] thiazide (MAXZIDE-25) [place] [address] [place] [address] 37.5-25 MG tablet [phone] (Wo rk) [Pharmacy Med Name: TRIAMTERE NE 37.5MG/ HCTZ 25MG TABS]) Social History Tobacco Use Types Packs/Day Years Used Date Smoking Tobacco: Never Smokeless Tobacco: Never Alcohol Use Standard Drinks/Week Comments Yes 0 (1 standard drink = 0.6 oz pure alcoho l) rare occasions (1 per month) Sex Assigned at Date Recorded Not on file documented as of this encounter Nursing Notes Gisella Peterson RN - 06/23/2021 2:27 PM CST Requested Prescriptions Refused Prescriptions Disp Refills ??? triamterene-hydrochlorothiazide (MAXZIDE-25) 37.5-25 MG tablet [Pharmacy Med Name: TRIAMTERENE 37.5MG/ HCTZ 25MG TABS] 45 Tablet 0 Sig: TAKE 1/2 TABLET BY MOUTH DAILY Refused By: GISELLA PETERSON Reason for Refusal: Duplicate Error ANICAL SYSTEMS ENGINEER Interface, Out Surescripts Prov Query - 06/21/2021 12:47 PM CST triamterene-hydrochlorothiazide (MAXZIDE-25) 37.5-25 MG tablet [Pharmacy Med Name: TRIAMTERENE 37.5MG/ HCTZ 25MG TABS] Medication started: 09/29/2016 Last ordered by JUSTIN SAN: 06/21/2021 (0 days ago) QTY: 15, Refills: 0, Sig: take 0.5 tablets by mouth daily. (changed but equivalent) -> The request contains a note from the pharmacy. -> A qualifying visit was not found within the last 2 years. -> K and Na are overdue (performed 25 months ago, required every 12 months) Last qualifying visit: None (A recent visit (in Internal Medicine with STEPHANIE CHÁVEZ) was found) Next scheduled visit: 06/23/2021 (with JUSTIN SAN) Cr: 0.8 mg/dL on 07/08/2020 Na: 142 mEq/L on 06/17/2019 K: 3.8 mEq/L on 06/17/2019 Powered by [employer] by [employer], Reference: [id number], 06/21/2021 12:47:40 PM MECHANICAL SYSTEMS ENGINEER, Gary: LIBRADO HERNANDEZ REFILL ([id number]) ANICAL SYSTEMS ENGINEER documented in this encounter Plan of Treatment Not on filedocumented as of this encounter Visit Diagnoses Diagnosis Essential hypertension (HRC) Unspecified essential hypertension documented in this encounter Care Teams Tip Length Checker Relationship Specialty Start Date End Date Needs Pcp, Assignment PCP - General 03/01/21 07/23/21 [place] [address] Erin PRADOW Candle Molder Hand 10/24/17 BORIS Desir [phone] Fatou Haile Candle Molder Hand 06/03/18 mauri garcia [facility] Financial Services Officer 05/28/19 documented as of this encounter
--- OUTSIDE RECORDS SUMMARY | 2022-02-21 10:26 | XMS_ITS | Encounter Summary ---
:1935 Author Organization [facility] Address [address] [place] [address] Care Team Providers Name Role Phone Justin Arora PA-C Primary Care Provider Reason for Visit Reason Comments Refill venlafaxine (EFFEXORXR) 75 M G 24 hour release capsule [Pharmacy Med Name: VENLAFAXINE ER 75MG CAPSULES ] Encounter Details Date Type Department Care Team Description 10/12/2021 Refill [place] [facility] Jose Tang R efill (venlafaxine Medicine (EFFEXORXR) 75 MG 24 [address] [place] [address] Shashi Garcia [place] [address] 230 [Pharmacy Med Name: [phone] [place] [address] VENLAFAXINE ER 75MG [phone] (Wo rk) CAPSULES]) Social History Tobacco Use Types Packs/Day Years Used Date Smoking Tobacco: Never Smokeless Tobacco: Never Alcohol Use Standard Drinks/Week Comments Yes 0 (1 standard drink = 0.6 oz pure alcoho l) rare occasions (1 per month) Sex Assigned at Date Recorded Not on file documented as of this encounter Nursing Notes Interface, Out Surescripts Prov Query - 10/12/2021 3:28 AM CDT venlafaxine (EFFEXORXR) 75 MG 24 hour release capsule [Pharmacy Med Name: VENLAFAXINE ER 75MG CAPSULES] Medication started: 07/18/2018 Last ordered by JUSTIN ARORA: 06/23/2021 (111 days ago) QTY: 90, Refills: 3, Sig: take 1 capsule (75 mg) by mouth daily. (changed but equivalent) -> The patient is requesting refills too soon, the current prescription is due to run out on 06/18/2022. 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
--- OUTSIDE RECORDS SUMMARY | 2022-02-21 10:26 | XMS_ITS | Encounter Summary ---
:1935 Author Organization [facility] Address [address] [place] [address] Care Team Providers Name Role Phone Justin Arora PA-C Primary Care Provider Reason for Visit Reason Comments Refill cephalexin (KEFLEX) 500 MG c apsule [Pharmacy Med Name: CEPHALEXIN 500MG CAPSULES] Encounter Details Date Type Department Care Team Description 07/30/[address] Justin Arora R efill (cephalexin Medicine [place] (KEFLEX) 500 MG capsule [address] [facility] [address] [facility] [Pharmacy Med Name: [place], [place] [address] CEPHALEXIN 500MG [id number] CAPSULES]) [phone] Social History Tobacco Use Types Packs/Day Years Used Date Smoking Tobacco: Never Smokeless Tobacco: Never Alcohol Use Standard Drinks/Week Comments Yes 0 (1 standard drink = 0.6 oz pure alcoho l) rare occasions (1 per month) Sex Assigned at Date Recorded Not on file documented as of this encounter Nursing Notes Interface, Out Surescripts Prov Query - 07/30/2021 12:15 PM CDT cephalexin (KEFLEX) 500 MG capsule [Pharmacy Med Name: CEPHALEXIN 500MG CAPSULES] Medication started: 07/26/2021 Last ordered by JUSTIN ARORA: 07/26/2021 (4 days ago) QTY: 21, Refills: 0, Sig: take 1 capsule (500 mg) by mouth three times a day. (changed but equivalent) -> A duplicate request was processed on 07/26/2021. -> Medication cannot be delegated. Last qualifying visit: 07/26/2021 (with JUSTIN ARORA) Next scheduled visit: None Powered by [facility] by [employer], Reference: [id number], 07/30/2021 12:15:31 PM CDT, Pool: BRENDON REFILL ([id number]) documented in this encounter Plan of Treatment Not on filedocumented as of this encounter Visit Diagnoses Diagnosis Cystitis Cystitis, unspecified documented in this encounter Care Teams Member Of The Legislative Council Relationship Specialty Start Date End Date Justin Arora PA-C PCP - General Physician Wardrobe Technician 07/24/21 [address] [place] [address] Erin ESCALANTE Embossing Press Operator Apprentice 10/24/17 BORIS Desir [phone] Fatou Haile Embossing Press Operator Apprentice 06/03/18 mauri PRADOW Machine Gun Mechanic 05/28/19 documented as of this encounter
--- OUTSIDE RECORDS SUMMARY | 2022-02-21 10:26 | XMS_ITS | Encounter Summary ---
:1935 Author Organization [facility] Address [address] [place] [address] Care Team Providers Name Role Phone Justin Arora PA-C Primary Care Provider Reason for Visit Reason Comments WALKING, DIFFICULTY Encounter Details Date Type Department Care Team Description 07/24/2021 Telephone [place] [address] Family Justin Arora W [place], [facility] Medicine [place] [address] [facility] [address] [place] [address] [place] [address] (Wo rk) Social History Tobacco Use Types Packs/Day Years Used Date Smoking Tobacco: Never Smokeless Tobacco: Never Alcohol Use Standard Drinks/Week Comments Yes 0 (1 standard drink = 0.6 oz pure alcoho l) rare occasions (1 per month) Sex Assigned at Date Recorded Not on file documented as of this encounter Nursing Notes rTina Chen RN - 07/24/2021 12:49 PM CDT Spoke with pt's daughter regarding unsteady gait over the last week. Pt feels the difficultly is coming from her her hip. There is no pain. Pt has not fallen. Denies any dizziness, headache, changes incognitive behavior for pt. Future Appointments Provider Department Center 07/26/2021 11:00 AM Justin Arora PA-C [place] [address] Family Medicine [place] [facility] Moira Mondragon - 07/24/2021 12:39 PM CDT Appointments - Same Day/Sooner Patient would like appointment with her provider. Current PCP: Assignment Needs PCP If requested clinician is unavailable, is it okay to be seen by another clinician? Yes What is the patient requesting to be seen for? Concerns for walking - may need support to walk Wants/Needs to be seen within: Within 7 days - an APWI requested Additional comments (related to the above concern): Pt's daughter expressed concern for her mom's walking and may want support for mom to help her walk. If there are questions regarding your request, is it okay to leave detailed message on your voicemail? Yes (Advise caller that the PN call back number will end with [phone] or unknown) (Please schedule next available appointment if patient is willing, in case work- in is not possible) Please route to: Appropriate pool per call routing grid documented in this encounter Plan of Treatment Not on filedocumented as of this encounter Visit Diagnoses Not on filedocumented in this encounter Care Teams Electronic Intelligence Officer Relationship Specialty Start Date End Date Justin Arora PA-C PCP - General Physician Wire Stretcher 07/24/21 [address] [place] [address] Erin ESCALANTE Alteration Hand 10/24/17 BORIS Desir [phone] Fatou Haile Alteration Hand 06/03/18 mauri PRADOW Casework Supervisor 05/28/19 documented as of this encounter
--- OUTSIDE RECORDS SUMMARY | 2022-02-21 10:26 | XMS_ITS | Encounter Summary ---
:1935 Author Organization [facility] Address [address] [place] [address] Care Team Providers Name Role Phone Justin Arora PA-C Primary Care Provider Reason for Visit Reason Comments Verbal Orders Encounter Details Date Type Department Care Team Description 08/17/2021 Telephone [facility] [address] [place] [address] Jb Arora PA-C Verbal Orders [facility] [address] [facility] [address] [place] [address] [place] [address] [phone] Social History Tobacco Use Types Packs/Day Years Used Date Smoking Tobacco: Never Smokeless Tobacco: Never Alcohol Use Standard Drinks/Week Comments Yes 0 (1 standard drink = 0.6 oz pure alcoho l) rare occasions (1 per month) Sex Assigned at Date Recorded Not on file documented as of this encounter Nursing Notes Doreen Kay RN - 08/22/2021 1:48 PM CDT Left voicemail on OT secured voicemail with verbal order, asked to call with further questions. Jasmina Vega LPN - 08/21/2021 6:11 PM CDT No answer on Edith's number listed. Please try tomorrow. Justin Arora PA-C - 08/21/2021 5:51 PM CDT OK to give verbal orders for OT 1x per week for 4 weeks. Barry Garcia - 08/17/2021 3:53 PM CDT Orders - Home Care What type of home care is being requested? OT Why is this home care needed (symptom/diagnosis)? [facility] Start date of service: 08/17 Frequency/Duration of service: 1 X WEEK 4 WEEKS How would home care like to receive this order? Verbal Order Additional comments (related to the above concern): Is it okay to leave a detailed message on your voicemail? Yes Is there anything else I can help you with today? documented in this encounter Plan of Treatment Not on filedocumented as of this encounter Visit Diagnoses Not on filedocumented in this encounter Care Teams Brick And Blocker Aid Labor Relationship Specialty Start Date End Date Justin Arora PA-C PCP - General Physician Air Conditioning Engineer 07/24/21 [address] [place] [address] Erin PRADOW Student Success Advisor 10/24/17 BORIS Desir [phone] Fatou Haile Student Success Advisor 06/03/18 mauri garcia [facility] Residential Real Estate Agent 05/28/19 documented as of this encounter
--- OUTSIDE RECORDS SUMMARY | 2022-02-21 10:26 | XMS_ITS | Encounter Summary ---
:1935 Author Organization [facility] Address [address] [place] [address] Care Team Providers Name Role Phone Needs Pcp, Assignment Primary Care Provider Reason for Visit Reason Comments Refill venlafaxine (EFFEXORXR) 75 M G 24 hour release capsule [Pharmacy Med Name: VENLAFAXINE ER 75MG CAPSULES ] Encounter Details Date Type Department Care Team Description 04/23/2021 Refill [place] [facility] Jose Tang R efill (venlafaxine Medicine (EFFEXORXR) 75 MG 24 [address] [facility] [address] Shashi Garcia [place] [address] [Pharmacy Med Name: [phone] [place] [address] VENLAFAXINE ER 75MG [phone] (Wo rk) CAPSULES]) Social History Tobacco Use Types Packs/Day Years Used Date Smoking Tobacco: Never Smokeless Tobacco: Never Alcohol Use Standard Drinks/Week Comments Yes 0 (1 standard drink = 0.6 oz pure alcoho l) rare occasions (1 per month) Sex Assigned at Date Recorded Not on file documented as of this encounter Nursing Notes Miranda Cheung - 04/27/2021 2:47 PM CST Spoke to patient, read message, tried to set up appointment with new provider but she said she couldn't hear me and hung up. ET LABEL REWINDER Ruben Medina RN - 04/25/2021 5:09 PM CST OFFICE APPOINTMENT NEEDED Please notify patient to schedule an appointment within 90 days and establish care with new provider. Former PCP no longer with [facility]. 90 day supply given per Emergency Refill Standing Order. Ruben Medina RN 04/25/2021, 5:08 PM Requested Prescriptions Pending Prescriptions Disp Refills ??? venlafaxine (EFFEXORXR) 75 MG 24 hour release capsule [Pharmacy Med Name: VENLAFAXINE ER 75MG CAPSULES] 90 Capsule 0 Sig: TAKE 1 CAPSULE BY MOUTH DAILY ET LABEL REWINDER Interface, Out Surescripts Prov Query - 04/23/2021 5:59 AM CST venlafaxine (EFFEXORXR) 75 MG 24 hour release capsule [Pharmacy Med Name: VENLAFAXINE ER 75MG CAPSULES] Medication started: 07/18/2018 Last ordered by STEPHANIE CHÁVEZ: 04/12/2020 (376 days ago) QTY: 90, Refills: 3, Sig: take 1 capsule by mouth daily. (unchanged) -> The requested strength (75 mg extended release oral capsule) was last ordered on 04/12/2020. The patient is taking 37.5 mg extended release oral capsule as of 04/12/2020. -> The most recent order on 04/12/2021. -> Refill x 1 month (courtesy refill. 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
--- OUTSIDE RECORDS SUMMARY | 2022-02-21 10:26 | XMS_ITS | Encounter Summary ---
:1935 Author Organization [facility] Address [address] [place] [address] Care Team Providers Name Role Phone Justin Arora PA-C Primary Care Provider Reason for Visit Reason Comments FALL Encounter Details Date Type Department Care Team Description 08/04/2021 Telephone [place] [address] [place] [address] Jb Arora PA-C FALL Medicine [address] [facility] [address] [place] [address] [place] [address] [phone] Social History Tobacco Use Types Packs/Day Years Used Date Smoking Tobacco: Never Smokeless Tobacco: Never Alcohol Use Standard Drinks/Week Comments Yes 0 (1 standard drink = 0.6 oz pure alcoho l) rare occasions (1 per month) Sex Assigned at Date Recorded Not on file documented as of this encounter Nursing Notes Gunjan Leonard RN - 08/04/2021 2:00 PM CDT Calling Ekaterina from home care patient fell on Saturday. Patient fell when she was trying to transfer to chair. No c/o of pain or brusies. called 911 and patient was helped back to bed. Called patient and spouse patient is doing well today. Was assessed by EMS and no injuries. No further Questions/concerns at this time. Barry Garcia - 08/04/2021 1:43 PM CDT Miscellaneous Questions/Concerns/FYI Is this a symptom? No What condition are you calling about? Pt fell Wed @ 11 am according to spouse. Missed getting in to wheelchair. Called 911 but did not come to be checked out. Weak legs but ok doing therapy today. Ekaterina calling to report this. What is your question or concern? Pt fell, 3 days ago may need to be checked on. Have you recently been seen for this? No Pt had appointment Saturday but cancelled due to fall. Is it okay to leave a detailed message on your voicemail? Yes Is there anything else I can help you with today? Feel free to call Ekaterina if you need to. documented in this encounter Plan of Treatment Not on filedocumented as of this encounter Visit Diagnoses Not on filedocumented in this encounter Care Teams Retail Consultant Relationship Specialty Start Date End Date Justin Arora PA-C PCP - General Physician Quality Control Industrial Engineer 07/24/21 [address] [place] [address] Erin PRADOW Salicylic Acid Blender 10/24/17 BORIS Desir [phone] Fatou Haile Salicylic Acid Blender 06/03/18 mauri garcia [facility] Glass Blower 05/28/19 documented as of this encounter
--- OUTSIDE RECORDS SUMMARY | 2022-02-21 10:26 | XMS_ITS | Encounter Summary ---
:1935 Author Organization [facility] Address [address] [place] [address] Care Team Providers Name Role Phone Justin Arora PA-C Primary Care Provider Reason for Visit Reason Comments Questions Encounter Details Date Type Department Care Team Description 12/06/[address] Jb Arora PA-C [facility] [id number] [place] [address] [place] [address] [place] [address] [phone] Social History Tobacco Use Types Packs/Day Years Used Date Smoking Tobacco: Never Smokeless Tobacco: Never Alcohol Use Standard Drinks/Week Comments Yes 0 (1 standard drink = 0.6 oz pure alcoho l) rare occasions (1 per month) Sex Assigned at Date Recorded Not on file documented as of this encounter Nursing Notes Jasmina Vega LPN - 12/06/2021 4:28 PM CDT Order refaxed to [facility] Attn: [facility] This was faxed 10-31-21 also. I had left a message for Mrs. Lombardo from [facility] who had called. This should be taken care of now. Justin Arora PA-C - 12/06/2021 12:11 PM CDT Please find out how often she needs to change this and try to pend order for them. Majo Jimenez - 12/06/2021 10:08 AM CDT Miscellaneous Questions/Concerns/FYI Is this a symptom? No What condition are you calling about? DME needs a written prescription What is your question or concern? Her career technical counselor from [facility] is calling, the [facility] medical need a written prescription for the Disposable mattress pads in order to approve of the order sent on 10/31/21. Please fax the records to [facility] at [phone] to [employer]. Have you recently been seen for this? No Is it okay to leave a detailed message on your voicemail? Yes Is there anything else I can help you with today? no documented in this encounter Plan of Treatment Not on filedocumented as of this encounter Visit Diagnoses Not on filedocumented in this encounter Care Teams Fiberglass Bonding Machine Tender Relationship Specialty Start Date End Date Justin Arora PA-C PCP - General Physician Announcer 07/24/21 [address] [place] [address] Erin ESCALANTE Rubber Mold Maker 10/24/17 BORIS Desir [phone] Fatou Haile Rubber Mold Maker 06/03/18 mauri PRADOW Mangle Roll Operator 05/28/19 documented as of this encounter
--- OUTSIDE RECORDS SUMMARY | 2022-02-21 10:26 | XMS_ITS | Encounter Summary ---
:1935 Author Organization [facility] Address [address] [facility] [place] [address] Care Team Providers Name Role Phone Justin Arora PA-C Primary Care Provider Reason for Visit Reason Comments COUGH COVID Encounter Details Date Type Department Care Team Description 01/24/2022 Telephone [place] [id number] [place] [address] Jb Arora PA-C COUGH; COVID Medicine [id number] [facility] [address] [place] [address] [place] [address] [phone] Social History Tobacco Use Types Packs/Day Years Used Date Smoking Tobacco: Never Smokeless Tobacco: Never Alcohol Use Standard Drinks/Week Comments Yes 0 (1 standard drink = 0.6 oz pure alcoho l) rare occasions (1 per month) Sex Assigned at Date Recorded Not on file documented as of this encounter Nursing Notes Pratima Forrest RN - 01/25/2022 8:41 AM CDT Images from the original note were not included. Patient was notified that COVID-19 testing was positive. Patient has symptoms. Date of onset of symptoms:01/22/2022 Current symptoms consist of: Cough, body aches Progression of symptoms: not changed Family was given and able to verbalize home isolation instructions for patients that have tested positive for COVID. Isolation Information: Immunocompetent Patient Mildly Ill: remain at home / in isolation until at least 5 days have passed since the onset of your symptoms AND you've not had a fever for 24 hours without fever reducing medicine AND all your symptoms have improved* After isolation, continue to wear a mask for 5 additional days and avoid being around people who aremore likely to get very sick from COVID-19 until at least day 11 If unable to wear a mask, remain in home isolation 10 days from the onset of symptoms *Loss of taste and smell may persist for weeks or months after recovery and need not delay the end of isolation. Immunocompetent Patient Moderately or Severely Ill: Those who experienced moderate symptoms (shortness of breath or difficulty breathing) or were severely ill (hospitalized) should remain at home / in isolation until at least 10 days have passed since the onset of your symptoms AND you've not had a fever for 24 hours without fever reducing medicine AND all your symptoms have improved* *Loss of taste and smell may persist for weeks or months after recovery and need not delay the end of isolation. Immunocompromised Patient: at least 20 days have passed since the onset of symptoms AND you've not had a fever for 24 hours without fever reducing medicine AND all your symptoms have improved. Per CDC guidelines you are able to discontinue Home Isolation on 01/28/2022. Until that date: With the exception of emergent or urgent medical needs, do not leave your home. Stay connected with your doctor via video visit or reschedule your in-person visit to a video visit (if applicable). Visit [employer] for our latest on masking and when you can return to the clinicfor non-emergent appointments. Avoid public areas and transportation. Isolate yourself from others as much as possible by staying in a specific room away from people and pets in your home, use a separate bathroom if available, wear a cloth face covering if you need to be around others in your home. COVID-19 Tests can remain positive for several weeks after your initial test. If you develop new symptoms, please contact us to speak to a nurse or your clinician. Evaluation of Reinfection: N/A Close Contact Information: Close contacts (those whom were within 6 feet of you for a total of 15 minutes or more within 48 hours prior to your COVID test) should call their healthcare provider right away if they develop symptoms suggestive of COVID 19. Provide the below information to any close contacts: It is recommended to wear a high-quality mask for 10 days Day 0 is the day of your last exposure to someone with COVID-19, Day 1 is the first full day after your last exposure Test for COVID-19 if symptoms develop or if you don???t develop symptoms, 5 full days after exposure How to protect yourself and others: Wash your hands often, and frequently clean and disinfect surfaces. Cover all coughs and sneezes. Try to avoid touching your face. Wear a mask any time you are around others, including in your home. Separate yourself from others in your home as much as possible by staying in a specific room or rooms, away from people and pets. You should not share dishes, drinking glasses, cups, eating utensils, towels, or bedding with other people in your home. Clean all high touch surfaces in your home daily. It's important for you to watch for any worsening symptoms, especially if you are at a higher risk for getting very sick from COVID-19. Higher risk groups include people older than age 60 and people who have serious chronic medical conditions like heart disease, diabetes or lung disease. Pay attention to the speed of worsening symptoms. If your symptoms are gradually worsening and you're concerned, try a video visit or call your clinic. Normally symptoms worsen a bit before getting better. Seek care at an emergency room if these symptom suddenly or quickly worsen: Sudden worsening shortness of breath, sudden worsening wheezing, difficulty swallowing, slurred speech, facial numbness, new confusion or inability to arouse, persistent pain or pressure in the chest, leg swelling. Guidance for return to work: Before returning to work, you must contact your employer for return to work instructions. Guidance for return to sports for children: If your child had any of the following: a fever >4 days, was lethargic >7 days, had chills or muscle aches/pains >7 days, OR hospitalized with COVID-19, an in- person visit is required. All other patients may be seen in person or via telemedicine. Patient Resources: Recommended Centers of Disease Control (CDC), [place] Department of Health ([facility]), and [employer] websites for further information on Coronavirus. Advised patient to review COVID-19 handout given to them at time of testing. COVID-19 Therapeutics: Risk Scores Covid Risk Score (Compiled) 9 Patient Age 2 BMI 2 Vascular 2 Hypertension 1 Empty Metrics: Diabetes, CKD, Vascular, Asthma, Immune Comp Current as of: 01/25/2022 8:00 AM 5 days from symptom onset = 01/27/2022 7 days from symptom onset = 01/29/2022 Is the patient established?Yes Is patient within 5 days of symptom onset? Yes: Has patient received any monoclonal antibody or antiviral treatment for COVID-19 since confirmation of recent infection in the past 90 days? No: Is patient over the age of 12 years, > 40kg/88lb, with a CRS > 1? (Confirm eligibility requirements within standing order) Yes Is supply of Paxlovid available? Yes: GFR, Estimated (mL/min/1.73m2) Date Value 06/23/2021 >60 Est GFR Am (mL/min/1.73m2) Date Value 10/02/2017 >60 Est GFR Non-Afr Am (mL/min/1.73m2) Date Value 10/02/2017 >60 Is Paxlovid contraindicated? (Refer to Standing Order) No: Was pharmacy consulted about a precaution? Yes (Document clinical management instructions) -Medication instructions given to pt's EC. Verbalized understanding. Quetiapine(Seroquel)-Sent to Pharmacist. Awaiting prescriber response. Per covering provider: Quetiapine 25 mg, 0.5 tab every other day while on Paxlovid and for 3 days after. Then resume current dosing of quetiapine Amlodipine: Per Pharmacist: Recommendation is to reduce by 50%. Would recommend she take amlodipine 5 mg - 1/2 tablet every other day during treatment and for 3 days after. Rosuvastatin-Stop rosuvastatin during treatment. Restart rosuvastatin 1 day after the last dose of nirmatrelvir/ritonavir. Pharmacy/provider response to medication noted in 01/24/22 Encounter Quetiapine-Quetiapine - consult with pharmacist who will consult with patient???s mental health provider about whether quetiapine dose can be reduced to one-sixth the original dose with monitoring for quetiapine-associated adverse reactions. Clinician will adjust the quetiapine to the one-sixth dose if appropriate and RN will order PAXLOVID Patient is eligible and agrees to treatment: Paxlovid prescribed per standing order, send to pharmacy and provide Paxlovid Patient Education: Where/How to fruit or nut picker medication prescription/Medication delivery How to take medication, importance of taking as prescribed and continue until finished If patient needs to begin taking any new prescribed or [id number] medications or herbal supplements while completing Paxlovid treatment, patient needs to consult with their clinician as Paxlovid has many drug interactions If patient is using a combined hormonal contraceptive, advise patient to use an additional barrier method of contraception as Paxlovid may reduce the effectiveness of hormonal contraceptive Side effects may include loss in taste and/or smell, diarrhea, and muscle aches and pains When to contact your healthcare provider: If you have worsening symptoms of COVID-19, new symptoms such as increased blood pressure and/or difficulty completing treatment as prescribed Does patient have any questions? No Does patient need documentation as verification of their results? No The following advice may help if you have a fever, sore throat, cough, or sinus infection/pain. Please note that because COVID-19 is a viral infection, an antibiotic won???t soothe or treat the virus. Getting plenty of rest and drinking water to stay hydrated is flores to feeling better. , For fever/sore throat/sinus congestion or pain for all ages over four months old: Use acetaminophen. Follow age and weight-appropriate dosing recommendations and the package instructions. Avoid stomach upset by taking with food or milk. , and Take a cough expectorant that contains guaifenesin (such as Mucinex??) for three days. This will thin mucus in your chest to make it easier to cough up. Avoid multi-symptom versions, which often have extra letters in their name (such as Mucinex DM??). Drinking water can alsohelp to thin mucus and reduce congestion. It's important to allow your body to cough up mucus to get better. 01/25/2022, 8:44 AM Marty Uribe MD - 01/24/2022 4:29 PM CDT Yes, this is fine, quetiapine 25 mg, 0.5 tab every other day while on Paxlovid and for 3 days after.Then resume current dosing of quetiapine. Thanks. Phuong Corral, PharmD - 01/24/2022 12:24 PM CDT Fidelia Vyas is eligible for Paxlovid for treatment of COVID 19. There is an interaction between her quetiapine and Paxlovid. The interaction is Paxlovid can significantly increase levels of quetiapine. Per our standing order, recommendation is to consult prescriberfor possibility of reducing to 1/6 of prescribed dose. Per nursing staff, patient is taking quetiapine 25 mg - 1/2 tablet once daily on a regular basis. With such a low dose, unable to reduce to 1/6 ofthe dose. Will reach out to prescriber about possibility of changing to quetiapine 25 mg - 1/2 tablet every other day during treatment and for 3 days after. This would still not be the recommended reduction but likely will be hard to do any less frequent administration. If felt change is too high risk, could consider molnupiravir. Of note, patient also takes a low dose of amlodipine 5 mg - 1/2 tablet daily. Recommendation is to reduce by 50%. Would recommend she take amlodipine 5 mg - 1/2 tablet every other day during treatment and for 3 days after. Please review and advise. This message can be routed back to the blade grinder that triaged the patient with your decision. Thank you, Clinical Pharmacy Services Pratima Forrest RN - 01/24/2022 11:43 AM CDT Images from the original note were not included. Family was notified that COVID-19 testing was positive. Patient has symptoms. Date of onset of symptoms:01/22/2022 Current symptoms consist of: Fever greater than 100, Cough, Muscle aches, and Fatigue Progression of symptoms: not changed Family was given and able to verbalize home isolation instructions for patients that have tested positive for COVID. Isolation Information: Immunocompetent Patient Mildly Ill: remain at home / in isolation until at least 5 days have passed since the onset of your symptoms AND you've not had a fever for 24 hours without fever reducing medicine AND all your symptoms have improved* After isolation, continue to wear a mask for 5 additional days and avoid being around people who aremore likely to get very sick from COVID-19 until at least day 11 If unable to wear a mask, remain in home isolation 10 days from the onset of symptoms *Loss of taste and smell may persist for weeks or months after recovery and need not delay the end of isolation. Immunocompetent Patient Moderately or Severely Ill: Those who experienced moderate symptoms (shortness of breath or difficulty breathing) or were severely ill (hospitalized) should remain at home / in isolation until at least 10 days have passed since the onset of your symptoms AND you've not had a fever for 24 hours without fever reducing medicine AND all your symptoms have improved* *Loss of taste and smell may persist for weeks or months after recovery and need not delay the end of isolation. Immunocompromised Patient: at least 20 days have passed since the onset of symptoms AND you've not had a fever for 24 hours without fever reducing medicine AND all your symptoms have improved. Per CDC guidelines you are able to discontinue Home Isolation on 01/28/2022. Until that date: With the exception of emergent or urgent medical needs, do not leave your home. Stay connected with your doctor via video visit or reschedule your in-person visit to a video visit (if applicable). Visit [employer] for our latest on masking and when you can return to the clinicfor non-emergent appointments. Avoid public areas and transportation. Isolate yourself from others as much as possible by staying in a specific room away from people and pets in your home, use a separate bathroom if available, wear a cloth face covering if you need to be around others in your home. COVID-19 Tests can remain positive for several weeks after your initial test. If you develop new symptoms, please contact us to speak to a nurse or your clinician. Evaluation of Reinfection: N/A Close Contact Information: Close contacts (those whom were within 6 feet of you for a total of 15 minutes or more within 48 hours prior to your COVID test) should call their healthcare provider right away if they develop symptoms suggestive of COVID 19. Provide the below information to any close contacts: It is recommended to wear a high-quality mask for 10 days Day 0 is the day of your last exposure to someone with COVID-19, Day 1 is the first full day after your last exposure Test for COVID-19 if symptoms develop or if you don???t develop symptoms, 5 full days after exposure How to protect yourself and others: Wash your hands often, and frequently clean and disinfect surfaces. Cover all coughs and sneezes. Try to avoid touching your face. Wear a mask any time you are around others, including in your home. Separate yourself from others in your home as much as possible by staying in a specific room or rooms, away from people and pets. You should not share dishes, drinking glasses, cups, eating utensils, towels, or bedding with other people in your home. Clean all high touch surfaces in your home daily. It's important for you to watch for any worsening symptoms, especially if you are at a higher risk for getting very sick from COVID-19. Higher risk groups include people older than age 60 and people who have serious chronic medical conditions like heart disease, diabetes or lung disease. Pay attention to the speed of worsening symptoms. If your symptoms are gradually worsening and you're concerned, try a video visit or call your clinic. Normally symptoms worsen a bit before getting better. Seek care at an emergency room if these symptom suddenly or quickly worsen: Sudden worsening shortness of breath, sudden worsening wheezing, difficulty swallowing, slurred speech, facial numbness, new confusion or inability to arouse, persistent pain or pressure in the chest, leg swelling. Guidance for return to work: Before returning to work, you must contact your employer for return to work instructions. Guidance for return to sports for children: If your child had any of the following: a fever >4 days, was lethargic >7 days, had chills or muscle aches/pains >7 days, OR hospitalized with COVID-19, an in- person visit is required. All other patients may be seen in person or via telemedicine. Patient Resources: Recommended Centers of Disease Control (CDC), [place] Department of Health ([facility]), and [employer] websites for further information on Coronavirus. Advised patient to review COVID-19 handout given to them at time of testing. COVID-19 Therapeutics: Risk Scores Covid Risk Score (Compiled) 9 Patient Age 2 BMI 2 Vascular 2 Hypertension 1 Empty Metrics: Diabetes, CKD, Vascular, Asthma, Immune Comp Current as of: 01/24/2022 7:12 AM 5 days from symptom onset = 01/27/2022 7 days from symptom onset = 01/29/2022 Is the patient established?Yes Is patient within 5 days of symptom onset? Yes: Has patient received any monoclonal antibody or antiviral treatment for COVID-19 since confirmation of recent infection in the past 90 days? No: Is patient over the age of 12 years, > 40kg/88lb, with a CRS > 1? (Confirm eligibility requirements within standing order) Yes Is supply of Paxlovid available? Yes: GFR, Estimated (mL/min/1.73m2) Date Value 06/23/2021 >60 Est GFR Am (mL/min/1.73m2) Date Value 10/02/2017 >60 Est GFR Non-Afr Am (mL/min/1.73m2) Date Value 10/02/2017 >60 Is Paxlovid contraindicated? (Refer to Standing Order) No: Was pharmacy consulted about a precaution? Yes (Document clinical management instructions) Pt's daughter advised of Medication instructions pending provider response to pharmacist. Quetiapine-Sent to Pharmacist. Awaiting prescriber response. Amlodipine: Per Pharmacist: Recommendation is to reduce by 50%. Would recommend she take amlodipine 5 mg - 1/2 tablet every other day during treatment and for 3 days after. Rosuvastatin-Stop rosuvastatin during treatment. Restart rosuvastatin 1 day after the last dose of nirmatrelvir/ritonavir. Quetiapine-Quetiapine - consult with pharmacist who will consult with patient???s mental health provider about whether quetiapine dose can be reduced to one-sixth the original dose with monitoring for quetiapine-associated adverse reactions. Clinician will adjust the quetiapine to the one-sixth dose if appropriate and RN will order PAXLOVID Does patient have any questions? No Does patient need documentation as verification of their results? No The following advice may help if you have a fever, sore throat, cough, or sinus infection/pain. Please note that because COVID-19 is a viral infection, an antibiotic won???t soothe or treat the virus. Getting plenty of rest and drinking water to stay hydrated is flores to feeling better. , For fever/sore throat/sinus congestion or pain for all ages over four months old: Use acetaminophen. Follow age and weight-appropriate dosing recommendations and the package instructions. Avoid stomach upset by taking with food or milk. , For adults only with sore throat: [id number] throat lozenges or anesthetic sprays can also help provide pain relief., and Take a cough expectorant that contains guaifenesin(such as Mucinex??) for three days. This will thin mucus in your chest to make it easier to cough up. Avoid multi- symptom versions, which often have extra letters in their name (such as Mucinex DM??). Drinking water can also help to thin mucus and reduce congestion. It's important to allow your body to cough up mucus to get better. 01/24/2022, 11:48 AM Taylor Washington - 01/24/2022 11:37 AM CDT Symptoms Describe your symptoms (if pain, include location): Cough, fever When did they start? Saturday01-22-22 Additional comments (related to the above concern): Pt had a positive at home test yesterday, would like to start the antiviral medication. If a prescription is needed, patient would [...] as of this encounter Visit Diagnoses Diagnosis COVID-19 - Primary documented in this encounter Care Teams Professional System Administrator Relationship Specialty Start Date End Date Justin Arora PA-C PCP - General Physician Timber Watchman 07/24/21 [id number] [place] [address] Erin Meza [facility] Steel Post Installer 10/24/17 BORIS Desir [phone] Fatou Haile Steel Post Installer 06/03/18 mauri garcia [facility] Certified Medical Assistant 05/28/19 documented as of this encounter
--- OUTSIDE RECORDS SUMMARY | 2022-02-21 10:26 | XMS_ITS | Encounter Summary ---
:1935 Author Organization [facility] Address [address] [place] [address] Care Team Providers Name Role Phone Justin Arora PA-C Primary Care Provider Encounter Details Date Type Department Care Team Description 09/13/2021 Lab Visit [facility] Foul smelling urine; [address] [place] [address] Social History Tobacco Use [...] Date/Time Associated Comments Diagnosis URINE CULTURE Routine 09/13/2021 2:51 PM Foul smelling urine R esults for this CDT procedure are i n the results section. URINALYSIS ROUTINE, Routine 09/13/2021 2:51 PM Foul smelling u rine Results for this MICRO/CULTURE IF POS CDT procedu re are in the results section. UA MICRO Routine 09/13/2021 2:51 PM Foul smelling urine Re sults for this CDT procedure are i n the results section. documented in this encounter Results (ABNORMAL) Urine Culture (09/13/2021 2:51 PM CDT) [facility] Method Time Signature Urine Culture Growth (A) 09/18/2021 [facility] 7:04 AM [facility] Urine Culture 50,000 - 09/18/2021 [facility] 100,000 CFU/mL 7:04 AM [facility] Escherichia coli Comment: This is an edited result. Nicole dudley organism was Gram Negative Bacilli on 09/14/2021 at 1714 CDT. Specimen Anatomical Collection Method Collection Time Receive d Time (Source) Location / / Volume Laterality Urine URINE SPECIMEN Non-blood 09/13/2021 2:51 PM 022 2:59 COLLECTION, CLEAN Collection / CDT PM CDT CATCH / Unknown Unknown Organism Antibiotic Method Susceptibility Escherichia coli Ampicillin/Sulbactam 16 mcg/mL: Intermediate Escherichia coli Piperacillin/Tazobactam <=2 mcg /mL: SUSCEPTIBLE [...] <=0.5 mcg/mL: S USCEPTIBLE Escherichia coli Tobramycin 8 mcg/mL: Inter mediate Escherichia coli Trimethoprim/Sulfamethoxazole > 2 mcg/mL: Resistant Escherichia coli Nitrofurantoin <=16 mcg/mL: KERR SCEPTIBLE Escherichia coli Cefoxitin <=4 mcg/mL: ERIKA CEPTIBLE Escherichia coli Gentamicin >8 mcg/mL: Resi stant Escherichia coli Cefotetan Escherichia coli Cefuroxime <=4 mcg/mL: ERIKA CEPTIBLE Justin Arora PA-C LAB_1 Performing Organization Address City/State/[place] [address] (ABNORMAL) UA Micro: Clean Catch (09/13/2021 2:51 PM CDT) [facility] Method Time Signature Red Blood Cells 4-7 (A) 0 - 3 /HPF 09/13/2021 [facility] B 2:59 PM CDT White Blood 21-50 (A) 0 - 5 /HPF 09/13/2021 [facility] Cells 2:59 PM CDT Bacteria Few (A) None Seen 09/13/2021 [facility] /HPF 2:59 PM CDT Squamous Few None Seen, 09/13/2021 [facility] Epithelial Occasional 2:59 PM CDT Cells , Few /HPF Specimen Anatomical Collection Method Collection Time Receive d Time (Source) Location / / Volume Laterality Urine URINE SPECIMEN Non-blood 09/13/2021 2:51 PM 022 2:51 COLLECTION, CLEAN Collection / CDT PM CDT CATCH / Unknown Unknown Justin Arora PA-C LAB_1 Performing Organization Address City/State/ZIP Code Phon e Number [facility] [address] [place] [phone] (ABNORMAL) Urinalysis Routine, Micro/Culture if Pos: Clean Catch (09/13/2021 2:51 PM CDT) [facility] Signature Urine Culture Urinalysis 09/13/2021 [facility] Comment results meet 3:01 PM CDT LAB criteria for reflex, culture performed. Urine Color Yellow Straw-Yellow 09/13/2021 [facility] 3:01 PM CDT LAB Urine Clarity Clear Clear 09/13/2021 [facility] 3:01 PM CDT LAB Specific 1.025 1.005 - 09/13/2021 [facility] [place], 1.030 3:01 PM CDT LAB Urine PH Urine 5.5 5.0 - 8.0 09/13/2021 [facility] 3:01 PM CDT LAB Protein, Negative Neg/Trace 09/13/2021 [facility] Urine Qual 3:01 PM CDT LAB (mg/dL) Glucose Urine Negative Negative 09/13/2021 [facility] Qual (mg/dL) 3:01 PM CDT LAB Ketones, Negative Negative 09/13/2021 [facility] Urine (mg/dL) 3:01 PM CDT LAB Urobilinogen, 0.2 <2.0 09/13/2021 [facility] Urine (EU/dL) 3:01 PM CDT LAB Bilirubin Negative Negative 09/13/2021 [facility] Urine 3:01 PM CDT LAB Blood, Urine Small (A) Neg/Trace 09/13/2021 [facility] 3:01 PM CDT LAB Nitrite Urine Positive (A) Negative 09/13/2021 [facility] 3:01 PM CDT LAB Leukocyte Small (A) Negative 09/13/2021 [facility] Est. 3:01 PM CDT LAB Specimen Anatomical Collection Method Collection Time Receive d Time (Source) Location / / Volume Laterality Urine URINE SPECIMEN Non-blood 09/13/2021 2:51 PM 022 2:51 COLLECTION, CLEAN Collection / CDT PM CDT CATCH / Unknown Unknown Justin Arora PA-C LAB_1 Performing Organization Address City/State/ZIP Code Phon e Number [facility] [address] [place] [phone] documented in this encounter Visit Diagnoses Diagnosis Foul smelling urine Other nonspecific finding on examination of urine Recurrent UTI Urinary tract infection, site not specif ied documented in this encounter Care Teams Caul Fat Puller Relationship Specialty Start Date End Date Justin Arora PA-C PCP - General Physician Clock And Watch Hands Painter 07/24/21 [address] [place] [address] Erin ESCALANTE Stave Machine Tender 10/24/17 BORIS Desir [phone] Fatou Haile Stave Machine Tender 06/03/18 mauri ESCALANTE Lathe Tender 05/28/19 documented as of this encounter
--- OUTSIDE RECORDS SUMMARY | 2022-02-21 10:26 | XMS_ITS | Encounter Summary ---
:1935 Author Organization [facility] Address [address] [place] [address] Care Team Providers Name Role Phone Justin Arora PA-C Primary Care Provider Reason for Visit Reason Comments Verbal Orders PT Encounter Details Date Type Department Care Team Description 08/02/[address] Jb Arora PA-C Verbal Orders (PT) Medicine [id number] [place] [address] [place] [address] [place] [address] [phone] Social History Tobacco Use Types Packs/Day Years Used Date Smoking Tobacco: Never Smokeless Tobacco: Never Alcohol Use Standard Drinks/Week Comments Yes 0 (1 standard drink = 0.6 oz pure alcoho l) rare occasions (1 per month) Sex Assigned at Date Recorded Not on file documented as of this encounter Nursing Notes Jasmina Vega LPN - 08/02/2021 3:35 PM CDT Left detailed message for Helga regarding Jb's message per phone. To return call to clinic if further questions. Justin Arora PA-C - 08/02/2021 10:00 AM CDT Ok to give verbal orders for PT 2x weekly for 3 weeks then 1x weekly for 4 weeks. Blanca Flores - 08/02/2021 8:33 AM CDT Orders - Home Care What type of home care is being requested? PT Why is this home care needed (symptom/diagnosis)? weakness /pain Start date of service: 08/01 Frequency/Duration of service: 2xw-3 weeks 1xw-4 weeks How would home care like to receive [...] on filedocumented in this encounter Care Teams Bobbin Sorter Relationship Specialty Start Date End Date Justin Arora PA-C PCP - General Physician Welder Assembler 07/24/21 [address] [place] [address] Erin PRADOW Choral Director 10/24/17 BORIS Desir [phone] Fatou Haile Choral Director 06/03/18 mauri garcia [facility] Strip Mill Operator 05/28/19 documented as of this encounter
--- OUTSIDE RECORDS SUMMARY | 2022-02-21 10:26 | XMS_ITS | Encounter Summary ---
:1935 Author Organization [facility] Address [address] [place] [address] Care Team Providers Name Role Phone Needs Pcp, Assignment Primary Care Provider Reason for Visit Reason Comments Refill amLODIPine (NORVASC) 5 MG ta blet [Pharmacy Med Name: AMLODIPINE BESYLATE 5MG TABLETS]; triamterene-hydroc hlorothiazide (MAXZIDE-25) 37.5-25 MG tablet [Pharmacy Med Name: TRIAMTER ROSA 37.5MG/ HCTZ 25MG TABS]; rosuvastatin (CRESTOR) 40 MG tablet [facility]: ROSUVASTATIN 40MG TABLETS] Encounter Details Date Type Department Care Team Description 06/10/2021 Refill [place] Allyson Sanchez PA-C Refill (amLODIPine Medicine [address] (NORVASC) 5 MG tablet [address] [place] [address] [Pharmacy Med Name: [place] [address] AMLODIPINE BESYLATE 5MG [phone] TABLETS]; triamterene-hyd rochlorot hiazide (MAXZID E-25) 37.5-25 MG tabl et [Pharmacy Med N denny: TRIAMTERENE 37. 5MG/ HCTZ 25MG TABS]; ros uvastatin (CRESTOR) 40 MG tablet [Pharmacy Med N denny: ROSUVASTATIN 40 MG TABLETS]) Social History Tobacco Use Types Packs/Day Years Used Date Smoking Tobacco: Never Smokeless Tobacco: Never Alcohol Use Standard Drinks/Week Comments Yes 0 (1 standard drink = 0.6 oz pure alcoho l) rare occasions (1 per month) Sex Assigned at Date Recorded Not on file documented as of this encounter Nursing Notes Quyen Crawford - 06/20/2021 1:27 PM CST Medication Refill - Overdue for Visit Patient is due for a(n): office visit Patient scheduled appointment on: 06/23/21 in [facility] Do you have enough medication to last until your appointment? No/Unknown I will request a one-time quantity to last until your appointment. Please check with your pharmacy on the status of your refill. Frontline Action: Route to the appropriate pool or clinician, as specified in nursing documentation below Clinician Action: Patient scheduled, requests refill. Recommend using Rx Final quick action to address request. NHOUSE FLORIST Madie Baron - 06/20/2021 9:53 AM CST Medication Refill - Overdue for Visit Called patient daughter, was: Unable to reach patient 1st call attempted. Left message to call back. PSC Action: Patient needs to schedule an appointment for their medication refill. PLEASE SCHEDULE WITH ANY OPEN PROVIDER. Schedule and verify if they have enough medication until their next appointment. If additional medication is needed, route this encounter high priority to Refill Pool (P [phone]) NHOUSE FLORIST Binta Centeno RN - 06/13/2021 12:49 PM CST Further Assistance Needed on Refill from Manager Data Warehouse Patient is overdue for Office visit. -> An office visit is overdue (performed over 14 months ago, required every 12 months). -> K and Na are overdue (performed over 24 months ago, required every 12 months) Last qualifying visit: 04/12/2020 (with ALLYSON CHÁVEZ) Next scheduled visit: None Please call patient to schedule a Office/Video Visit and document using .SARAY. After attemptingto schedule patient: Please route to: FELI DA: Please route to covering provider. Requested Prescriptions Pending Prescriptions Disp Refills rosuvastatin (CRESTOR) 40 MG tablet [Pharmacy Med Name: ROSUVASTATIN 40MG TABLETS] 90 Tablet 0 Sig: Take 1 Tablet by mouth daily. triamterene-hydrochlorothiazide (MAXZIDE-25) 37.5-25 MG tablet [Pharmacy Med Name: TRIAMTERENE 37.5MG/ HCTZ 25MG TABS] 45 Tablet 0 Sig: TAKE 1/2 TABLET BY MOUTH DAILY amLODIPine (NORVASC) 5 MG tablet [Pharmacy Med Name: AMLODIPINE BESYLATE 5MG TABLETS] 45 Tablet 0 Sig: TAKE 1/2 TABLET BY MOUTH DAILY NHOUSE FLORIST Interface, Out Surescripts Prov Query - 06/10/2021 5:54 AM CST amLODIPine (NORVASC) 5 MG tablet [Pharmacy Med Name: AMLODIPINE BESYLATE 5MG TABLETS] Medication started: 09/29/2016 Last ordered by ALLYSON CHÁVEZ: 04/07/2021 (64 days ago) QTY: 45, Refills: 0, Sig: take 1/2 tablet by mouth daily (unchanged) -> An office visit is overdue (performed over 14 months ago, required every 12 months). Last qualifying visit: 04/12/2020 (with ALLYSON CHÁVEZ) Next scheduled visit: None Powered by Mail'Inside by [employer], Reference: [id number], 06/10/2021 5:54:38 AM Gary RIDER:LIBRADO HERNANDEZ REFILL ([id number]) rosuvastatin (CRESTOR) 40 MG tablet [Pharmacy Med Name: ROSUVASTATIN 40MG TABLETS] Medication started: 07/11/2016 Last ordered by ALLYSON CHÁVEZ: 04/12/2020 (424 days ago) QTY: 90, Refills: 3, Sig: take 1 tablet by mouth daily. (unchanged) -> An office visit is overdue (performed over 14 months ago, required every 12 months). Last qualifying visit: 04/12/2020 (with ALLYSON CHÁVEZ) Next scheduled visit: None Powered by Mail[employer]Inside by [employer], Reference: [id number], 06/10/2021 5:54:38 AM Gary RIDER:LIBRADO HERNANDEZ REFILL ([id number]) triamterene-hydrochlorothiazide (MAXZIDE-25) 37.5-25 MG tablet [Pharmacy Med Name: TRIAMTERENE 37.5MG/ HCTZ 25MG TABS] Medication started: 09/29/2016 Last ordered by ALLYSON CHÁVEZ: 04/12/2020 (424 days ago) QTY: 45, Refills: 3, Sig: take 0.5 tablets by mouth daily. (changed but equivalent) -> An office visit is overdue (performed over 14 months ago, required every 12 months). -> K and Na are overdue (performed over 24 months ago, required every 12 months) Last qualifying visit: 04/12/2020 (with ALLYSON CHÁVEZ) Next scheduled visit: None Cr: 0.8 mg/dL on 07/08/2020 Na: 142 mEq/L on 06/17/2019 K: 3.8 mEq/L on 06/17/2019 Powered by Mail[employer]Insidech by [facility], Reference: [id number], 06/10/2021 5:54:38 AM GREENHOUSE FLORIST, Pool:LIBRADO IMED REFILL ([id number]) NHOUSE FLORIST documented in this encounter Plan of Treatment Not on filedocumented as of this encounter Visit Diagnoses Diagnosis Hyperlipidemia, unspecified hyperlipidem ia type (HRC) Essential hypertension (HRC) Unspecified essential hypertension documented in this encounter Care Teams Electrician Office Relationship Specialty Start Date End Date Needs Pcp, Assignment PCP - General 03/01/21 07/23/21 [place] [address] Erin ESCALANTE Media Sales Consultant 10/24/17 BORIS Desir [phone] Fatou Haile Media Sales Consultant 06/03/18 mauri PRADOW Railway Traction Line Worker 05/28/19 documented as of this encounter
--- OUTSIDE RECORDS SUMMARY | 2022-02-21 10:26 | XMS_ITS | Encounter Summary ---
:1935 Author Organization [facility] Address [address] [place] [address] Care Team Providers Name Role Phone Needs Pcp, Assignment Primary Care Provider Reason for Visit Reason Comments Other Encounter Details Date Type Department Care Team Description 06/20/2021 Telephone [facility] No Pcp, No Pcp, Other [id number] [place] [address] Social History Tobacco Use Types Packs/Day Years Used Date Smoking Tobacco: Never Smokeless Tobacco: Never Alcohol Use Standard Drinks/Week Comments Yes 0 (1 standard drink = 0.6 oz pure alcoho l) rare occasions (1 per month) Sex Assigned at Date Recorded Not on file documented as of this encounter Nursing Notes Viridiana Anderson LPN - 06/21/2021 3:06 PM CST Spoke to patient, read message, patient has no questions. Pt will be at her upcoming appointment on 06/23/21 at 1pm. R CUTTER Justin Arora PA-C - 06/21/2021 12:46 PM CST Medications temporarily refilled pending upcoming appointment R CUTTER Sofia Draper RN - 06/20/2021 10:20 AM CST Further Assistance Needed on Refill from Clinician RN reviewed. Patient overdue for Qualifying visit and lab(s). Pt last seen in clinic on 04/12/20 with provider who is no longer at clinic. Has not established carewith new provider at this time. Advised need for an appointment in order to get medications refilled. Appointment made for 06/23/21. Review pended order for accuracy and sign if appropriate Requested Prescriptions Pending Prescriptions Disp Refills ??? amLODIPine (NORVASC) 5 MG tablet 15 Tablet 0 Sig: Take 0.5 Tablets (2.5 mg) by mouth daily. ??? triamterene-hydrochlorothiazide (MAXZIDE-25) 37.5-25 MG tablet 15 Tablet 0 Sig: Take 0.5 Tablets by mouth daily. ??? rosuvastatin (CRESTOR) 40 MG tablet 30 Tablet 0 Sig: Take 1 Tablet (40 mg) by mouth daily. Problem list reviewed as related to this call. Future Appointments Date Time Provider Department Center 06/23/2021 1:00 PM Justin Arora, [facility] R CUTTER Rose Jones - 06/20/2021 10:02 AM CST Miscellaneous Questions/Concerns/FYI Is this a symptom? No What condition are you calling about? What is your question or concern? Pts daughter stated she received a call from nurse advising to call back regarding mothers Rx, No notes available, Transferred to triage. Have you recently been seen for this? Yes: Is it okay to leave a detailed message on your voicemail? No Is there anything else I can help you with today? no R CUTTER documented in this encounter Plan of Treatment Not on filedocumented as of this encounter Visit Diagnoses Diagnosis Essential hypertension (HRC) Unspecified essential hypertension Hyperlipidemia, unspecified hyperlipidem ia type (HRC) documented in this encounter Care Teams Dental Amalgam Processor Relationship Specialty Start Date End Date Needs Pcp, Assignment PCP - General 03/01/21 07/23/21 [place] [address] Erin ESCALANTE Reset Merchandiser 10/24/17 BORIS Desir [phone] Fatou Haile Reset Merchandiser 06/03/18 mauri ESCALANTE Engraver Set Up Operator 05/28/19 documented as of this encounter
--- OUTSIDE RECORDS SUMMARY | 2022-02-21 10:26 | XMS_ITS | Encounter Summary ---
:1935 Author Organization [facility] Address [address] [facility] [place] [address] Care Team Providers Name Role Phone Justin Arora PA-C Primary Care Provider Reason for Visit Reason Comments Smelly Urine Encounter Details Date Type Department Care Team Description 09/04/2021 Telephone [place] [id number] [place] [address] Jb Arora PA-C Smelly Urine Medicine [address] [facility] [address] [place] [address] [place] [address] [phone] Social History Tobacco Use Types Packs/Day Years Used Date Smoking Tobacco: Never Smokeless Tobacco: Never Alcohol Use Standard Drinks/Week Comments Yes 0 (1 standard drink = 0.6 oz pure alcoho l) rare occasions (1 per month) Sex Assigned at Date Recorded Not on file documented as of this encounter Nursing Notes Mikayla Morales RN - 09/04/2021 2:49 PM CDT Called all three numbers on file, home care therapist endorsed patient is experiencing strong smelling urine. Patient is amenable to an office visit on Saturday, this was scheduled. Attempted to speakto patient's , but no answer. Left message advising patient has appointment scheduled as below. Advised to call office back if not able to make appt. Future Appointments Date Time Provider Department Center 09/06/2021 11:00 AM Justin Arora PA-C [facility] Carisa Kiran - 09/04/2021 2:39 PM CDT Symptoms Describe your symptoms (if pain, include location): Home care nurse calling from [facility] , pt has very fowl smelling urine, the nurse strongly advise her to call and make appt, he has not done so yet. When did they start? 08/31/21 Additional comments (related to the above concern): [...] on filedocumented in this encounter Care Teams Litigation Legal Assistant Relationship Specialty Start Date End Date Justin Arora PA-C PCP - General Physician Manual Lathe Operator 07/24/21 [address] [place] [address] Erin Meza [facility] Parts Salesman 10/24/17 BORIS Desir [phone] Fatou Haile Parts Salesman 06/03/18 mauri garcia [facility] Carbonizer Tester 05/28/19 documented as of this encounter
--- OUTSIDE RECORDS SUMMARY | 2022-02-21 10:26 | XMS_ITS | Encounter Summary ---
:1935 Author Organization [facility] Address [address] [place] [address] Care Team Providers Name Role Phone Needs Pcp, Assignment Primary Care Provider Encounter Details Date Type Department Care Team Description 06/23/2021 Lab Visit [facility] Essential hypertension; [address] [facility] Hyperlipidemia, [place] [address] Social History Tobacco Use [...] Name Priority Date/Time Associated Diagnosis Comme nts CBC AND DIFFERENTIAL Routine 06/23/2021 1:52 Essential hyperte nsion Results for this PANEL PM HOTEL HOUSEKEEPER procedure are i n the results section. LIPID PANEL AND Routine 06/23/2021 1:52 Hyperlipidemia, Result s for this DIRECT LDL(IF PM HOTEL HOUSEKEEPER unspecified procedure are in NEEDED) hyperlipidemia type the resu lts section. COMPLETE BLOOD Routine 06/23/2021 1:52 Essential hypertension Results for this COUNT-W/DIFF PM HOTEL HOUSEKEEPER procedure are i n the results section. COMP METABOLIC PANEL Routine 06/23/2021 1:52 Essential hyperte nsion Results for this PM HOTEL HOUSEKEEPER procedure are i n the results section. documented in this encounter Results Complete Blood Count-W/Diff (06/23/2021 1:52 PM HOTEL HOUSEKEEPER) P athologist Signature WBC 6.9 3.5 - 10.5 06/23/2021 [facility] x10(9)/L 1:57 PM HOTEL HOUSEKEEPER RBC 4.71 3.90 - 06/23/2021 [facility] 5.03 1:57 PM HOTEL HOUSEKEEPER x10(12)/L Hemoglobin 14.8 12.0 - 06/23/2021 [facility] 15.5 g/dL 1:57 PM HOTEL HOUSEKEEPER HCT 44.1 34.9 - 06/23/2021 [facility] 44.5 % 1:57 PM HOTEL HOUSEKEEPER MCV 93.6 80.0 - 06/23/2021 [facility] 100.0 fL 1:57 PM HOTEL HOUSEKEEPER MCH 31.4 27.6 - 06/23/2021 [facility] 33.3 pg 1:57 PM HOTEL HOUSEKEEPER MCHC 33.6 31.5 - 06/23/2021 [facility] 35.2 g/dL 1:57 PM HOTEL HOUSEKEEPER RDW 13.5 11.9 - 06/23/2021 [facility] 15.5 % 1:57 PM HOTEL HOUSEKEEPER Platelets 194 150 - 450 06/23/2021 [facility] x10(9)/L 1:57 PM HOTEL HOUSEKEEPER Neutrophil 3.5 1.7 - 7.0 06/23/2021 [facility] Absolute 10(9)/L 1:57 PM HOTEL HOUSEKEEPER Lymphocyte 2.6 1.0 - 4.8 06/23/2021 [facility] Absolute 10(9)/L 1:57 PM HOTEL HOUSEKEEPER Monocytes 0.6 0.2 - 0.9 06/23/2021 [facility] Absolute 10(9)/L 1:57 PM HOTEL HOUSEKEEPER Eosinophil 0.1 0.0 - 0.5 06/23/2021 [facility] Absolute 10(9)/L 1:57 PM HOTEL HOUSEKEEPER Basophil 0.1 0.0 - 0.3 06/23/2021 [facility] Absolute 10(9)/L 1:57 PM HOTEL HOUSEKEEPER Immature Gran % 0.1 0.0 - 0.5 06/23/2021 [facility] % 1:57 PM HOTEL HOUSEKEEPER Specimen Anatomical Collection Method / Collection Time Recei miladis Time (Source) Location / Volume Laterality Blood Venipuncture / 06/23/2021 1:52 06/23/2021 1:52 Unknown PM HOTEL HOUSEKEEPER PM HOTEL HOUSEKEEPER Justin Arora PA-C LAB_1 Performing Organization Address [facility]/ZIP Code Phon e Number [facility] [address] [place] [address] Lipid Panel - LDLD If Trig High (06/23/2021 1:52 PM HOTEL HOUSEKEEPER) Analysis Performed At Patho logist Time Signature Cholesterol 157 0 - 199 06/23/2021 [facility] mg/dL 5:48 PM [facility]SEK[facility] Triglyceride 109 <=149 06/23/2021 [facility] mg/dL 5:48 PM [facility] HDL Cholesterol 58 >=40 mg/dL 06/23/2021 [facility] 5:48 PM [facility] LDL, Calculated 77 <130 mg/dL 06/23/2021 [facility] 5:48 PM [facility]SEKEE[facility] Non HDL Chol, 99 <=159 06/23/2021 [facility] Calculated mg/dL 5:48 PM [facility] Cholesterol/HDL 2.7 06/23/2021 [facility] Ratio 5:48 PM [facility]EL HOUSEKEE[facility] Hours Fasting 4 06/23/2021 [facility] 5:48 PM HOTEL HOUSEKEEPER Specimen Anatomical Collection Method / Collection Time Recei miladis Time (Source) Location / Volume Laterality Blood Venipuncture / 06/23/2021 1:52 06/23/2021 1:52 Unknown PM HOTEL HOUSEKEEPER PM HOTEL HOUSEKEEPER Justin Arora PA-C LAB_1 Performing Organization Address City/[facility]/ZIP Code Phon e Number [facility] [address] [place], [place] [address] [facility] [address] [place] [address], [phone] [facility] (ABNORMAL) Comp Metabolic Panel (06/23/2021 1:52 PM HOTEL HOUSEKEEPER) Analysis Performed At Patho logist Time Signature Sodium 140 136 - 145 06/23/2021 [facility] mmol/L 5:48 PM [facility]SEK[facility] Potassium 3.5 3.5 - 5.1 06/23/2021 [facility] mmol/L 5:48 PM [facility] Chloride 103 98 - 109 06/23/2021 [facility] mmol/L 5:48 PM [facility]SEK[facility] CO2 30 (H) 20 - 29 06/23/2021 [facility] mmol/L 5:48 PM [facility]SEK[facility] Anion Gap 7 7 - 16 06/23/2021 [facility] mmol/L 5:48 PM [facility] Calcium 8.6 8.4 - 10.4 06/23/2021 [facility] mg/dL 5:48 PM [facility]SEKEE[facility] BUN 9 7 - 26 06/23/2021 [facility] mg/dL 5:48 PM [facility] Creatinine 0.70 0.55 - 06/23/2021 [facility] 1.02 mg/dL 5:48 PM [facility]SEK[facility] GFR, Estimated >60 >60 06/23/2021 [facility] mL/min/1.7 5:48 PM [facility] HOUSEKEEPER [facility] 3m2 Alkaline 47 40 - 150 06/23/2021 [facility] Phosphatase U/L 5:48 PM [facility]SEK[facility] AST (SGOT) 20 10 - 40 06/23/2021 [facility] U/L 5:48 PM [facility]SEK[facility] ALT (SGPT) <10 0 - 55 U/L 06/23/2021 [facility] 5:48 PM [facility] Bilirubin, Total 0.8 0.2 - 1.2 06/23/2021 [facility] mg/dL 5:48 PM [facility] Protein, Total 7.0 6.4 - 8.3 06/23/2021 [facility] g/dL 5:48 PM [facility]SEK[facility] Albumin 3.7 3.5 - 5.0 06/23/2021 [facility] g/dL 5:48 PM [facility] Glucose 84 70 - 100 06/23/2021 [facility] mg/dL 5:48 PM [facility] Comment: The given reference range is fo r the fasting state. Non-fasting reference range for glucose is 70 - 180 mg/dL. Hours Fasting 4 06/23/2021 5:48 PM HOTEL HOUSEKEEPER [facility] Specimen Anatomical Collection Method / Collection Time Recei miladis Time (Source) Location / Volume Laterality Blood Venipuncture / 06/23/2021 1:52 06/23/2021 1:52 Unknown PM HOTEL HOUSEKEEPER PM HOTEL HOUSEKEEPER Justin Arora PA-C LAB_1 Performing Organization Address City/State/ZIP Code Phon e Number [facility] [address] [place] [address] [facility] [address] [place] [address], [facility] documented in this encounter Visit Diagnoses Diagnosis Essential hypertension (HRC) Unspecified essential hypertension Hyperlipidemia, unspecified hyperlipidem ia type (HRC) documented in this encounter Care Teams Director Of Social Media Marketing Relationship Specialty Start Date End Date Needs Pcp, Assignment PCP - General 03/01/21 07/23/21 [place] [address] Erin ESCALANTE Marketing Graphics Specialist 10/24/17 BORIS Desir [phone] Fatou Haile Marketing Graphics Specialist 06/03/18 mauri ESCALANTE Vocational Rehabilitation Teacher 05/28/19 documented as of this encounter
--- OUTSIDE RECORDS SUMMARY | 2022-02-21 10:26 | XMS_ITS | Encounter Summary ---
:1935 Author Organization [facility] Address [address] [place] [address] Support Name Relationship Address Phone Mayo Vyas Unavailable [address] [place] [address] Onel Armendariz Unavailable Unavailable Parveen Saeed Team Providers Name Role Phone Justin Arora PA-C Primary Care Provider Reason for Referral Consult/Transfer Care (Routine) - New Request Specialty Diagnoses / Procedures Referred By Contact Refer red To Contact Diagnoses Other fatigue Weight loss Appetite loss Brady Renee MD [address] [place], [place] [address] Referral ID Status Reason Start Date Expiration Date Visits V isits Requested Authorized [id number] New Request 01/31/2022 05/02/2023 1 1 Scheduling Instructions Your provider has recommended an appoint ment with [facility]. You can quickly make your appointment online at [email or web address]. You can also call [phone] for help scheduling yo ur appointment. We suggest you call your health insurance company about your cove rage and benefits for this appointment. Reason for Visit Reason Comments FATIGUE Encounter Details Date Type Department Care Team Description 01/31/2022 Office Visit [place] [address] Urgent Brady Renee , Other fatigue; Parveen EVANGELISTA Weight loss; [address] [place] [address] [address] [address] [phone] [place] [address] (Wo rk) Social History Tobacco Use Types [...] 1.9 oz) 01/31/2022 2:54 PM CDT Height - - Body Mass Index 33.48 09/13/2021 2:12 PM CDT documented in this encounter Progress Notes Brady Renee MD - 01/31/2022 2:40 PM CDT Nursing Notes: Ginger Nath RN 01/31/22 [id number] Addendum Fidelia Vyas is a 86 y.o.female presents to the Urgent Care for FATIGUE . Patient presents with daughter, who reports her dad (is patients staple cutter) that Fidelia has been having increased fatigue for the past two days. Not wanting to get up to use the bathroom. Pt denies pain. Has mild lingering cough, but no other sxs. Finished last dose of paxlovid this morning. Diagnosedwith COVID 01/22. SUBJECTIVE: Fidelia Vyas is a 86 y.o. female here with her daughter Onel because of recent fatigue, reduced appetite, weight loss and a mild lingering cough. Denies any pain. She finished her last dose of Paxlovid today. She was diagnosed with COVID January 22. She denies shortness of breath, chest pain, headache, dysuria. She lives with her and her daughter lives 20 minutes away. Her past medical history includes coronary artery disease, hypertension, monoclonal gammopathy, depression, dementia, anxiety. Allergies: Atorvastatin and Morphine Past medical history: has no past medical history on file. Medications: Current Outpatient Medications Medication Sig Dispense Refill amLODIPine (NORVASC) 5 MG tablet Take 0.5 Tablets (2.5 mg) by mouth daily. 90 Tablet 3 aspirin EC 81 MG enteric coated tablet Take 1 Tablet (81 mg) by mouth daily. 90 Tablet 3 Calcium 600-200 MG-UNIT Take 1 Each by mouth two times a day. 180 Each 3 cephalexin (KEFLEX) 500 MG capsule Take 1 Capsule (500 mg) by mouth three times a day. (Patient nottaking: Reported on 01/31/2022) 21 Capsule 0 Cholecalciferol (VITAMIN D3) 25 MCG (1000 UT) ta Take 1 Tablet by mouth daily. 90 Tablet 3 donepezil (ARICEPT) 10 MG tablet Take 1 Tablet by mouth daily. 90 Tablet 3 labetalol (TRANDATE) 100 MG tablet TAKE ONE-HALF BY MOUTH EVERY MORNING AND 1 TABLET EVERY EVENING 135 Tablet 0 naproxen (NAPROSYN) 500 MG tablet Take 1 Tablet (500 mg) by mouth two times daily as needed. 20 Tablet 1 nirmatrelvir & ritonavir 300/100 (PAXLOVID) 300 mg & 100 mg tablet combo pack Take 2 nirmatrelvir tablets (300mg) and 1 ritonavir tablet (100mg) by mouth twice daily for 5 days. Quetiapine 25MG: Take 1/2 tab every other day while on Paxlovid and for 3 days after. Amlodipine: Take 1/2 tablet every other day while on Paxlovid and for 3 days after. Rosuvastatin-Stop rosuvastatin during treatment. Restart rosuvastatin 1 day after the last dose of Paxlovid. Indications: Infection caused by COVID-19 Coronavirus 30 Each 0 nitroglycerin (NITROSTAT) 0.[address] 1 Tablet under tongue every 5 minutes as needed for Chest Pain. If no relief after 5 min call 911;continue 1 tab every 5 min max 3 tab 100 Tablet 11 QUEtiapine (SEROQUEL) 25 MG tablet 1/2 to 1 pill daily as needed for agitation (Patient not taking:Reported on 01/31/2022) 30 Tablet 5 rosuvastatin (CRESTOR) 40 MG tablet Take 1 Tablet (40 mg) by mouth daily. 90 Tablet 3 triamterene-hydrochlorothiazide (MAXZIDE-25) 37.5-25 MG tablet Take 0.5 Tablets by mouth daily. 90 Tablet 3 venlafaxine (EFFEXORXR) 75 MG 24 hour release capsule Take 1 Capsule (75 mg) by mouth daily. 90 Capsule 3 No current facility-administered medications for this visit. OBJECTIVE: Vital Signs: BP 122/73 (BP Location: Left Arm, BP Cuff Size: Regular - Long) Pulse 81 Temp 36.9 ??C (98.5 ??F) (Oral) Resp 16 Wt 81.7 kg (180 lb 1.9 oz) SpO2 95% BMI 33.48 kg/m?? EXAM: She looks in no apparent discomfort. Normal skin color. Her vitals are all within normal. Heart with regular rate and rhythm. Lungs are clear bilaterally to auscultation. She has trace ankle edema bilaterally. Abdomen is soft and apparently not tender. HER WEIGHT HERE IS 180 LB. IN SEPTEMBER IT WAS 196 LB. I ordered comprehensive metabolic panel and reviewed to show potassium of 3.2. CRP was less than 0.5. CBC was notable for high hemoglobin which may be associated with some degree of dehydration. TSH pending. ASSESSMENT: Fatigue, appetite loss, weight loss. PLAN: I went over all of this with her daughter. She may return tomorrow for possible IV hydration. She will tried to consume 2 bananas per day and otherwise oral hydration will be and car urged. I will try to facilitate a follow-up with her primary physician here soon. The patient was discharged ambulatory and in stable condition. documented in this encounter Nursing Notes Ginger Nath RN - 01/31/2022 2:40 PM CDT Fidelia Vyas is a 86 y.o.female presents to the Urgent Care for FATIGUE . Patient presents with daughter, who reports her dad (is patients staple cutter) that Fidelia has been having increased fatigue for the past two days. Not wanting to get up to use the bathroom. Pt denies pain. Has mild lingering cough, but no other sxs. Finished last dose of paxlovid this morning. Diagnosedwith COVID 01/22. documented in this encounter Plan of Treatment Scheduled Orders Name Type Priority Associated Diagnoses Order S chedule TSH Lab Routine Other fatigue Expected: 01/12, Expires: 05/01/2022 Scheduled Referrals Name Type Priority Associated Diagnoses Order S chedule FAMILY MEDICINE CONSULT Referral Routine Other fa tigue Ordered: 01/31/2022 ADULT/PEDS (AMB) Weight loss Appetite loss documented as of this encounter Results TSH (01/31/2022 3:50 PM CDT) athologist Signature TSH, Sensitive 1.63 0.30 - 02/01/2022 [facility] 4.50 2:35 PM CDT [facility]ORY uIU/mL Specimen Anatomical Collection Method / Collection Time Recei miladis Time (Source) Location / Volume Laterality Blood Venipuncture / 01/31/2022 3:50 01/31/2022 3:50 Unknown PM CDT PM CDT Brady Renee MD LAB_1 Performing Organization Address City/State/ZIP Code Phon e Number [facility] [address] [place] [address] C-Reactive Protein (01/31/2022 3:50 PM CDT) athologist Signature C-Reactive <0.5 0.0 - 0.7 01/31/2022 [facility] Protein mg/dL 5:30 PM CDT LABORATORY Specimen Anatomical Collection Method / Collection Time Recei miladis Time (Source) Location / Volume Laterality Blood Venipuncture / 01/31/2022 3:50 01/31/2022 3:50 Unknown PM CDT PM CDT Brady Renee MD LAB_1 Performing Organization Address City/[facility]/ZIP Code Phon e Number [facility] [address] [place] [address] (ABNORMAL) Comp Metabolic Panel (01/31/2022 3:50 PM CDT) [facility] Method Time Signature Sodium 136 136 - 145 01/31/2022 [facility] mmol/L 5:30 PM CDT LABORATORY Potassium 3.2 (L) 3.5 - 5.1 01/31/2022 [facility] mmol/L 5:30 PM CDT LABOR[facility]ORY Chloride 92 (L) 98 - 109 01/31/2022 [facility] mmol/L 5:30 PM CDT LAB[facility]ORY CO2 32 (H) 20 - 29 01/31/2022 [facility] mmol/L 5:30 PM CDT LAB[facility] Anion Gap 12 7 - 16 01/31/2022 [facility] mmol/L 5:30 PM CDT LABOR[facility]ORY Calcium 9.1 8.4 - 10.4 01/31/2022 [facility] mg/dL 5:30 PM CDT LABOR[facility]ORY BUN 13 7 - 26 01/31/2022 [facility] mg/dL 5:30 PM CDT LABORATORY Creatinine 0.80 0.55 - 01/31/2022 [facility] 1.02 mg/dL 5:30 PM CDT LABOR[facility]ORY GFR, Estimated >60 >60 01/31/2022 [facility] mL/min/1.7 5:30 PM CDT [facility]ORY 3m2 Alkaline 49 40 - 150 01/31/2022 [facility] Phosphatase U/L 5:30 PM CDT LAB[facility]ORY AST (SGOT) 24 10 - 40 01/31/2022 [facility] U/L 5:30 PM CDT LAB[facility]ORY ALT (SGPT) 14 0 - 55 U/L 01/31/2022 [facility] 5:30 PM CDT LABOR[facility]ORY Bilirubin, Total 1.2 0.2 - 1.2 01/31/2022 [facility] mg/dL 5:30 PM CDT LABOR[facility]ORY Protein, Total 7.3 6.4 - 8.3 01/31/2022 [facility] g/dL 5:30 PM CDT LABOR[facility]ORY Albumin 3.9 3.5 - 5.0 01/31/2022 [facility] g/dL 5:30 PM CDT LABORATORY Glucose 98 70 - 100 01/31/2022 [facility] mg/dL 5:30 PM CDT LABORATORY Comment: The [...] Organization Address City/State/ZIP Code Phon e Number [facility] [address] [place] [address] [facility] [address] [place] [address], [facility] documented in this encounter Visit Diagnoses Diagnosis Other fatigue Weight loss Loss of weight Appetite loss Anorexia documented in this encounter Care Teams Side Piece Coverer Relationship Specialty Start Date End Date Justin Arora PA-C PCP - General Physician Quality Engineer Medical Device 07/24/21 [address] [place] [address] Erin ESCALANTE Bobbin Cleaning Machine Operator 10/24/17 BORIS Desir [phone] Fatou Haile Bobbin Cleaning Machine Operator 06/03/18 mauri ESCALANTE Commercial Glazier 05/28/19 documented as of this encounter
--- OUTSIDE RECORDS SUMMARY | 2022-02-21 10:26 | XMS_ITS | Encounter Summary ---
:1935 Author Organization [facility] Address [address] [place] [address] Care Team Providers Name Role Phone Justin Arora PA-C Primary Care Provider Encounter Details Date Type Department Care Team Description 08/09/2021 Notes/Orders [place] [address] Justin Arora, Dementia in Family Medicine GOLDY Alzheimer's disease [address] [facility] [address] [facility] ([facility]C) (Primary Dx) [place] [address] [phone] Social History Tobacco Use Types Packs/Day Years Used Date Smoking Tobacco: Never Smokeless Tobacco: Never Alcohol Use Standard Drinks/Week Comments Yes 0 (1 standard drink = 0.6 oz pure alcoho l) rare occasions (1 per month) Sex Assigned at Date Recorded Not on file documented as of this encounter Progress Notes Odilia Whiteside, ANALYSIS ENGINEER - 08/09/2021 2:25 PM CDT Home Health Care or Hospice Certification Covering dates of service from 08/01/21 to 09/29/21. Date of Video or Office Visit: 08/04/21 Frontline/DA Action: ?? Pend Home Health Certification (G0180) order* and associate to diagnosis listed on [facility] form. *If this is for Hospice, do not pend an order. ?? Route encounter to clinician and place paper form in inbox. Clinician Action: ?? Review patient status, careplan, and Home Health Certification and Plan of Care Form ([facility] 485). ?? Locate and sign paper form and place in outbox (for scanning). ?? Sign pended order in Epic. ?? Leave encounter open. Iman Trent - 08/09/2021 2:25 PM CDT Justin Arora PA-C reviewed patient status, careplan, and completed the Home Health Certification and Plan of Care Form ([facility] 485). Form faxed to [facility] on 08/11/2021. A copy of the form has also been scanned into this patient's record. 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
--- OUTSIDE RECORDS SUMMARY | 2022-02-21 10:26 | XMS_ITS | Encounter Summary ---
:1935 Author Organization [facility] Address [address] [place] [address] Care Team Providers Name Role Phone Justin Arora PA-C Primary Care Provider Reason for Visit Reason Comments Verbal Orders Encounter Details Date Type Department Care Team Description 08/31/[address] Jb Arora PA-C Verbal Orders [facility] [address] [facility] [address] [place] [address] [place] [address] [phone] Social History Tobacco Use Types Packs/Day Years Used Date Smoking Tobacco: Never Smokeless Tobacco: Never Alcohol Use Standard Drinks/Week Comments Yes 0 (1 standard drink = 0.6 oz pure alcoho l) rare occasions (1 per month) Sex Assigned at Date Recorded Not on file documented as of this encounter Nursing Notes Jasmina Vega LPN - 08/31/2021 2:43 PM CDT Left detailed message for Lazara with Jb's orders per phone. To return call to clinic if further questions. Justin Arora PA-C - 08/31/2021 1:29 PM CDT OK to home health caregiver verbal orders for home PT with start date 08/31/2021: 1x per week for 4 weeks. Yaakov Ramsay - 08/31/2021 12:50 PM CDT Orders - Home Care What type of home care is being requested? PT Why is this home care needed (symptom/diagnosis)? Alzheimer Start date of service: 08/31 Frequency/Duration of service: 1x a week for four weeks How would home care like to [...] on filedocumented in this encounter Care Teams Lifestyle Director Relationship Specialty Start Date End Date Justin Arora PA-C PCP - General Physician Recreation Officer 07/24/21 [address] [place] [address] Erin PRADOW Payroll Manager 10/24/17 BORIS Desir [phone] Fatou Haile Payroll Manager 06/03/18 mauri garcia [facility] Cassandra Architect 05/28/19 documented as of this encounter
--- OUTSIDE RECORDS SUMMARY | 2022-02-21 10:27 | XMS_ITS | Encounter Summary ---
:1935 Author Organization [facility] Address [address] [place] [address] [place] [address] Care Team Providers Name Role Phone Allyson Pool PA-C Primary Care Provider Encounter Details Date Type Department Care Team Description 07/08/2019 Notes/Orders [facility] Margarita leger at [facility] MILADIS Wilson ra Oncology [address] [facility] [id number] [place] [phone] (Wo rk) Social History Tobacco Use Types [...] on filedocumented in this encounter Care Teams Double End Tenoner Operator Relationship Specialty Start Date End Date Allyson Pool PA-C PCP - General Physician Split And Drum Room Supervisor 09/26/16 02/28/[address] [place] [address] Erin ESCALANTE Maintenance Mechanic Supervisor 10/24/17 BORIS Desir [phone] Fatou Haile Maintenance Mechanic Supervisor 06/03/18 mauri garcia [facility] Production Manufacturing Worker 05/28/19 documented as of this encounter
--- OUTSIDE RECORDS SUMMARY | 2022-02-21 10:27 | XMS_ITS | Encounter Summary ---
:1935 Author Organization [facility] Address [address] [place] [address] Care Team Providers Name Role Phone Allyson Pool PA-C Primary Care Provider Reason for Visit Reason Comments Refill triamterene-hydrochlorothiaz ricky (MAXZIDE-25) 37.5-25 MG tablet [Pharmacy Med Name: TRIAMTERENE 37.5MG/ HC TZ 25MG TABS] Encounter Details Date Type Department Care Team Description 08/12/2019 Refill [facility] Allyson Pool PA-C Refill Medicine [address] [facility] (triamterene-hydrochlor [address] [place] [address] othiazide (MAXZIDE-25) [place] [address] 37.5-25 MG tablet [phone] [Pharmacy Med Name: TRIAMTERENE 37. 5MG/ HCTZ 25MG TABS] ) Social History Tobacco Use Types Packs/Day Years Used Date Smoking Tobacco: Never Smokeless Tobacco: Never Alcohol Use Standard Drinks/Week Comments Yes 0 (1 standard drink = 0.6 oz pure alcoho l) rare occasions (1 per month) Sex Assigned at Date Recorded Not on file documented as of this encounter Nursing Notes Interface, Out Surescripts Prov Query - 08/12/2019 8:43 AM CDT triamterene-hydrochlorothiazide (MAXZIDE-25) 37.5-25 MG tablet [Pharmacy Med Name: TRIAMTERENE 37.5MG/ HCTZ 25MG TABS] Medication started: 09/29/2016 Last ordered by ALLYSON POOL: 06/08/2019 (65 days ago) QTY: 45, Refills: 3, Sig: take 0.5 tablets bymouth daily. (changed but equivalent) -> The patient is requesting refills too soon, the current prescription is due to run out on 06/02/2020. -> Refill x 12 months, qty: 45, refills: 3 (until due for an office visit) Last qualifying visit: 06/08/2019 (with ALLYSON POOL) Next scheduled visit: None SBP: 122 mm Hg on 06/08/2019 DBP: 64 mm Hg on 06/08/2019 Cr: 0.9 mg/dL on 06/17/2019 Na: 142 mEq/L on 06/17/2019 K: 3.8 mEq/L on 06/17/2019 Powered by [employer], Reference: [id number], 08/12/2019 8:43:50 AM CDT, Pool: LIBRADO DAVID REFILL ([id number]) documented in this encounter Plan of Treatment Not on filedocumented as of this encounter Visit Diagnoses Diagnosis Essential hypertension (HRC) Unspecified essential hypertension documented in this encounter Care Teams Chief Librarian Music Department Relationship Specialty Start Date End Date Allyson Pool, PAAlexaC PCP - General Physician Associate Professor Of Library Science 09/26/16 02/28/[address] [place] [address] Erin Meza [facility] Emergency Medical Service Manager 10/24/17 BORIS Desir [phone] Fatou Haile Emergency Medical Service Manager 06/03/18 mauri garcia [facility] Finish Molder 05/28/19 documented as of this encounter
--- OUTSIDE RECORDS SUMMARY | 2022-02-21 10:27 | XMS_ITS | Encounter Summary ---
:1935 Author Organization [employer] Address [address] [place] [address] Care Team Providers Name Role Phone Allyson Pool PA-C Primary Care Provider Reason for Referral Consult/Transfer Care (Routine) - Closed Specialty Diagnoses / Procedures Referred By Contact Refer red To Contact Diagnoses MGUS (monoclonal gammopathy of unknown significance) (HRC) Allyson Pool PA-C [address] [place] [address] Referral ID Status Reason Start Date Expiration Date Visits Requ ested Visits Authorized [id number] Closed 06/18/2019 09/16/2020 1 1 Scheduling Instructions Your provider has recommended an appoint ment with [facility]. You may call [phone] to quincy edule your appointment. If you do not schedule an appointment within the next 1 to 3 business days, we will call you to help arrange your appointment. We sugges t you call your health insurance company about your coverage and benefits for thi s appointment. REPAIRER Reason for Visit Reason Comments LAB RESULTS Encounter Details Date Type Department Care Team Description 06/18/2019 Telephone Allyson Palomo PA-C LAB RESULTS Medicine [address] [place] [address] [place] [address] [phone] Social History Tobacco Use Types Packs/Day Years Used Date Smoking Tobacco: Never Smokeless Tobacco: Never Alcohol Use Standard Drinks/Week Comments Yes 0 (1 standard drink = 0.6 oz pure alcoho l) rare occasions (1 per month) Sex Assigned at Date Recorded Not on file documented as of this encounter Nursing Notes Estrella Vann LPN - 06/18/2019 4:14 PM CST I called and spoke to the pt's , notifying him of the provider's message below and instructedhim to call [phone] to schedule with Hematology. Pt's verbalized understanding. REPAIRER Allyson Pool PA-C - 06/18/2019 3:55 PM CST Patient should schedule routine follow up with the contract paralegal for her MGUS (monocloncal protein ofundetermined significance). Her kappa level has increased slightly so I do think it is time for a check in with them to assure no other testing is needed. Last seen in 2018 and they had recommended a 6month follow up at that time. Allyson Pool PA-C 3:56 PM 06/18/2019 REPAIRER documented in this encounter Plan of Treatment Scheduled Referrals Name Type Priority Associated Diagnoses Order S [facility] Oncology/Hematology Referral Routine MGUS (monoclonal Orde red: 06/18/2019 Consult Adult gammopathy of unknown significance) documented as of this encounter Visit Diagnoses Diagnosis MGUS (monoclonal gammopathy of unknown s ignificance) (HRC) - Primary Monoclonal paraproteinemia documented in this encounter Care Teams Cosmetic Manager Relationship Specialty Start Date End Date Allyson Pool PA-C PCP - General Physician Coke Inspector 09/26/16 02/28/[address] [place] [address] Erin ESCALANTE Head Of Store Operations 10/24/17 BORIS Desir [phone] Fatou Haile Head Of Store Operations 06/03/18 mauri garcia [facility] Magnetizer 05/28/19 documented as of this encounter
--- OUTSIDE RECORDS SUMMARY | 2022-02-21 10:27 | XMS_ITS | Encounter Summary ---
:1935 Author Organization [facility] Address [address] [place] [address] Care Team Providers Name Role Phone Allyson Pool PA-C Primary Care Provider Reason for Visit Reason Comments Follow-up Consult/Transfer Care (Routine) - Closed Specialty Diagnoses / Procedures Referred By Contact Refer red To Contact Diagnoses MGUS (monoclonal gammopathy of unknown significance) (HRC) Allyson Pool PA-C [address] [place] [address] Referral ID Status Reason Start Date Expiration Date Visits Requ ested Visits Authorized [id number] Closed 06/18/2019 09/16/2020 1 1 Encounter Details Date Type Department Care Team Description 07/08/2019 Office Visit [facility] Cancer Clifton Barboza noclonal gammopathy Care at [facility] MILADIS Farrell i present on serum [facility] [address] [place] [address] protein [address] [facility] [place] [address] [place], [place] (Primary Dx) [phone] Social History Tobacco Use Types Packs/Day Years Used Date Smoking Tobacco: Never Smokeless Tobacco: Never Alcohol Use Standard Drinks/Week Comments Yes 0 (1 standard drink = 0.6 oz pure alcoho l) rare occasions (1 per month) Sex Assigned at Date Recorded Not on file documented as of this encounter Last Filed Vital Signs Vital Sign Reading Time Taken Comments Blood Pressure 138/80 07/08/2019 2:50 PM TRAIN BRAKER Pulse 69 07/08/2019 2:50 PM TRAIN BRAKER Temperature 37.8 ??C (100 ??F) 07/08/2019 2:50 PM TRAIN BRAKER Respiratory Rate - - Oxygen Saturation - - Inhaled Oxygen Concentration - - Weight 92.4 kg (203 lb 9.6 oz) 07/08/2019 2:50 PM TRAIN BRAKER Height - - Body Mass Index 36.65 06/08/2019 3:33 PM TRAIN BRAKER documented in this encounter Progress Notes Marlys Barboza MBBS - 07/08/2019 12:00 PM CST NAME: FIDELIA LUNDBERG MR#: [id number] CSN: [id number] AUTHENTICATING CLINICIAN: MILADIS Dennis CONFIRM #: [id number] LOC: 3704 CLINIC PROGRESS NOTE DATE OF VISIT: 07/08/2019 : 1935 Diagnosis: IGG kappa MGUS History: Fidelia is a 81-year-old with history of hypertension, coronary artery disease, with cardiac arrest and VFib in 2002, first ME reportedly at age 44. She comes today for assessment of newly detected monoclonal protein. She walks without any support and denies any recent falls and is able to manage her ADLs and IADLs at home and is visiting us today with her daughter. She has noticed some chronic numbness and tingling sensation on and off and has been experiencing that since this morning, mostly in herhands. She denies having any headache, nausea, vomiting, dizziness. No chest pain or shortness of breath. No diarrhea, blood in urine or stool, dark stools. Her weight appears to be stable. No recent fevers, chills, or infections. ?? REVIEW OF SYSTEMS: Otherwise negative. ?? PAST MEDICAL HISTORY: Significant for hypertension, status post cardiac arrest, VFib in 2002 and first heart attack at age44. ?? PAST SURGICAL HISTORY: Gallbladder surgery, appendectomy, hysterectomy. ?? FAMILY HISTORY: Mother had heart attack in her 40s. Sister with heart attack, and sister also had lung cancer in her50s and she was a smoker. ?? PERSONAL HISTORY: No smoking. Occasional alcohol use. ?? CURRENT MEDICATIONS: Include amlodipine, aspirin, vitamin D3, labetalol, Nitrostat, Paxil and triamterene hydrochlorothiazide. INTERVAL HISTORY: Fidelia is here today for followup.She denies any new symptoms. She was last seen by us in 2018. Overall, she is walking better and has not been using the cane and denies any recent falls or unsteadiness. She denies any headache, dizziness, or any neuropathic symptoms. REVIEW OF SYSTEMS: Otherwise negative. ?? OBJECTIVE: VITAL SIGNS: Blood pressure 138/80, pulse 69, temperature 100 ??F (37.8 ??C), temperature source Oral, weight 203 lb 9.6 oz (92.4 kg). GENERAL: On exam, she is awake, alert, appears comfortable. Moderately built, well-nourished. HEENT: Pupils equal and react to light. Oral mucosa is moist. No lesions, ulcers, exudates. LUNGS: Clear to auscultation. HEART: Rhythm is regular. ABDOMEN: Soft, nontender, nondistended. LYMPHATICS: No palpable supraclavicular, cervical, axillary lymphadenopathy. EXTREMITIES: No edema. NEUROLOGIC: No gross motor or sensory deficits on neuro exam. SKIN: No rashes or lesions. ?? LABORATORY DATA: White count 7.3, hemoglobin 13.2, platelets 183, creatinine 0.8. Electrolytes within normal limits. Her kappa lambda ratio slightly elevated at 1.7, slightly elevated kappa at 2.7. Other electrolytes are normal and she continues to have persistent 0.5 g of IgG kappa. ?? ASSESSMENT/PLAN: Fidelia is a 81-year-old with history of hypertension, coronary artery disease, status post ventricular fibrillation, cardiac arrest in 2003 has been referred here for evaluation of monoclonal protein. ? MGUS:Fidelia comes today for follow up with her daughter. She denies any new symptoms. She was last seen by us in 2018. Overall, she is walking better and has not been using the cane and denies any recent falls or unsteadiness. She denies any headache, dizziness, or any neuropathic symptoms. She does not have any CRAB features and did have 2 small calvarial lesions which are likely benign and stable in 2018 based on MRI. At this time, since she is doing well with stable monoclonal protein, she can befollowed by her primary physician with once a year testing of quantitative immunoglobulins, SPEP, free light chains, hemoglobin and creatinine levels. She can be referred back if there are cytopenias or significant changes in monoclonal protein. Please call us with specific questions or concerns. CA:MEDQ C: CONFIRM #: [id number] documented in this encounter Plan of Treatment Scheduled Referrals Name Type Priority Associated Diagnoses Order S [facility] Oncology/Hematology Referral Routine MGUS (monoclonal Orde red: 06/18/2019 Consult Adult gammopathy of unknown significance) documented as of this encounter Visit Diagnoses Diagnosis Monoclonal gammopathy present on serum p rotein electrophoresis (HRC) - Primary documented in this encounter Care Teams Director Cpg Relationship Specialty Start Date End Date Allyson Pool PA-C PCP - General Physician S3B Multi Sensor Operator 09/26/16 02/28/21 [address] [place] [address] Erin ESCALANTE Mask Designer 10/24/17 BORIS Desir [phone] Fatou Haile Mask Designer 06/03/18 mauri PRADOW Maintenance Analyst 05/28/19 documented as of this encounter
--- OUTSIDE RECORDS SUMMARY | 2022-02-21 10:27 | XMS_ITS | Encounter Summary ---
:1935 Author Organization [employer] Address [address], [place] [address] Care Team Providers Name Role Phone Allyson Pool PA-C Primary Care Provider Reason for Visit Reason Onset Date Comments Refill 10/07/2020 Encounter Details Date Type Department Care Team Description 10/07/2020 Refill [facility] [address] Neurology Nany Newman, RN Refill [address] [place] [address] Social History Tobacco Use Types Packs/Day Years Used Date Smoking Tobacco: Never Smokeless Tobacco: Never Alcohol Use Standard Drinks/Week Comments Yes 0 (1 standard drink = 0.6 oz pure alcoho l) rare occasions (1 per month) Sex Assigned at Date Recorded Not on file documented as of this encounter Nursing Notes Nany Newman RN - 10/07/2020 3:44 PM CDT LS 08/2019, Rx sent and letter to schedule appt. documented in this encounter Plan of Treatment Not on filedocumented as of this encounter Visit Diagnoses Not on filedocumented in this encounter Care Teams Library Historian Relationship Specialty Start Date End Date Allyson Pool PA-C PCP - General Physician Fast Brim Pouncer 09/26/16 02/28/21 [address] [place] [address] Erin PRADOW Applications Support Engineer 10/24/17 BORIS Desir [phone] Fatou Haile Applications Support Engineer 06/03/18 mauri garcia [facility] Sculpture Instructor 05/28/19 documented as of this encounter
--- OUTSIDE RECORDS SUMMARY | 2022-02-21 10:27 | XMS_ITS | Encounter Summary ---
:1935 Author Organization [employer] [facility] Address [address] [place] [address] Care Team Providers Name Role Phone Allyson Pool PA-C Primary Care Provider Reason for Visit Reason Comments ERRONEOUS ENTRY Encounter Details Date Type Department Care Team Description 12/24/2018 Telephone [facility] Allyson Pool PA-C ERRONEOUS ENTRY Medicine [address] [address] [place] [address] [place] [address] [phone] Social History Tobacco Use Types Packs/Day Years Used Date Smoking Tobacco: Never Smokeless Tobacco: Never Alcohol Use Standard Drinks/Week Comments Yes 0 (1 standard drink = 0.6 oz pure alcoho l) rare occasions (1 per month) Sex Assigned at Date Recorded Not on file documented as of this encounter Nursing Notes Margarette Mondragon - 12/24/2018 1:57 PM CDT Error documented in this encounter Plan of Treatment Not on filedocumented as of this encounter Visit Diagnoses Not on filedocumented in this encounter Care Teams Sales Support Rep Relationship Specialty Start Date End Date Allyson Pool PA-C PCP - General Physician News Internship 09/26/16 02/28/21 [address] [place] [address] Erin ESCALANTE Car Repairer 10/24/17 BORIS Desir [phone] Fatou Haile Car Repairer 06/03/18 documented as of this encounter
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
--- OUTSIDE RECORDS SUMMARY | 2022-02-21 10:27 | XMS_ITS | Encounter Summary ---
:1935 Author Organization [facility] Address [address] [place] [address] Care Team Providers Name Role Phone Allyson Pool PA-C Primary Care Provider Reason for Visit Reason Comments Provider Orders Encounter Details Date Type Department Care Team Description 10/22/2018 Telephone [facility] Allyson Pool PA-C Provider Orders [address] [address] [place] [address] [phone] Social History Tobacco Use Types Packs/Day Years Used Date Smoking Tobacco: Never Smokeless Tobacco: Never Alcohol Use Standard Drinks/Week Comments Yes 0 (1 standard drink = 0.6 oz pure alcoho l) rare occasions (1 per month) Sex Assigned at Date Recorded Not on file documented as of this encounter Nursing Notes Estrella Vann LPN - 10/23/2018 7:43 AM CDT Form faxed back to [employer] [facility] [employer] Allyson Pool PA-C - 10/22/2018 12:14 PM CDT Completed and in my outbox. Allyson Pool PA-C 12:14 PM 10/22/2018 Tom Crane CMA - 10/22/2018 10:03 AM CDT Clinician Action: New Order Clinician Next Step: review and sign orders, route to nurse for follow up Specific Request(s): 1. Provider orders received from [facility] and placed in provider box. Please review and sign.Route to nurse once completed for follow up. documented in this encounter Plan of Treatment Not on filedocumented as of this encounter Visit Diagnoses Not on filedocumented in this encounter Care Teams Poultry Hatchery Laborer Relationship Specialty Start Date End Date Allyson Pool PA-C PCP - General Physician Rn Ambulatory 09/26/16 02/28/21 [id number] [place] [id number] Erin ESCALANTE Bottom Loader 10/24/17 BORIS Desir [phone] Fatou Haile Bottom Loader 06/03/18 documented as of this encounter
--- OUTSIDE RECORDS SUMMARY | 2022-02-21 10:27 | XMS_ITS | Encounter Summary ---
:1935 Author Organization [facility] Address [address] [place] [address] Care Team Providers Name Role Phone Stephanie Pool PA-C Primary Care Provider Reason for Visit Reason Comments Refill triamterene-hydrochlorothiaz ricky (MAXZIDE-25) 37.5-25 MG tablet [Pharmacy Med Name: TRIAMTERENE 37.5MG/ HC TZ 25MG TABS] Encounter Details Date Type Department Care Team Description 08/24/2018 Refill [facility] Stephanie Pool PA-C Refill Medicine [id number] [facility] (triamterene-hydrochlor [address] [place] [address] othiazide (MAXZIDE-25) [place] [address] 37.5-25 MG tablet [phone] [Pharmacy Med Name: TRIAMTERENE 37. 5MG/ HCTZ [...] Notes Interface, Out Surescripts Prov Query - 08/24/2018 3:27 AM CDT triamterene-hydrochlorothiazide (MAXZIDE-25) 37.5-25 MG tablet [Pharmacy Med Name: TRIAMTERENE 37.5MG/ HCTZ 25MG TABS] Medication started: 09/29/2016 Last ordered by STEPHANIE POOL: 06/26/2018 (59 days ago) QTY: 45, Refills: 3, Sig: take 0.5 tablets bymouth daily. (changed but equivalent) -> The patient is requesting refills too soon, the current prescription is due to run out on 06/21/2019. -> Refill x 3 months (courtesy refill, overdue for a(n) K check and Na check) Last qualifying visit: 06/26/2018 (with STEPHANIE POOL) Next scheduled visit: None SBP: 110 mm Hg on 06/26/2018 DBP: 60 mm Hg on 06/26/2018 Cr: 0.8 mg/dL on 10/02/2017 Na: 140 mEq/L on 07/08/2017 K: 3.7 mEq/L on 07/09/2017 PATIENT IS DUE FOR: - NA (Sent to [facility]) - K (Sent to [facility]) Powered by [employer], Reference: [id number], 08/24/2018 3:27:11 AM CDT, Pool: LIBRADO HERNANDEZ REFDILLON ([id number]) documented in this encounter Plan of Treatment Not on filedocumented as of this encounter Visit Diagnoses Diagnosis Essential hypertension (HRC) Unspecified essential hypertension documented in this encounter Care Teams Manager Oncology Relationship Specialty Start Date End Date Stephanie Pool PA-C PCP - General Physician Chauffeur [employer] 09/26/16 02/28/[address] [place] [id number] Erin ESCALANTE Beauty Sales Consultant 10/24/17 BORIS Desir [phone] Fatou Haile Beauty Sales Consultant 06/03/18 documented as of this encounter
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
--- OUTSIDE RECORDS SUMMARY | 2022-02-21 10:27 | XMS_ITS | Encounter Summary ---
:1935 Author Organization [employer] Address [address] [place] [address] Care Team Providers Name Role Phone Allyson Pool PA-C Primary Care Provider Reason for Visit Reason Comments Medicare Annual Wellness Encounter Details Date Type Department Care Team Description 06/08/2019 Office Visit [facility] Allyson Pool, [place] nal gammopathy present on serum protein electrophoresis (Primary Dx); Medicine PAYadiel Encounter for Medicare annual wellness e xam; [address] Immunization due; [place] [address] [place], [place] Screening for osteoporosis; [phone] [id number] Essential hypertension; [phone] Vitamin D defic iency; (Work) Hyperlipidemia, unspecified hyperlipidem ia type; [phone] Old myocardial infarction (Fax) Social History Tobacco Use Types Packs/Day Years Used Date Smoking Tobacco: Never Smokeless Tobacco: Never Alcohol Use Standard Drinks/Week Comments Yes 0 (1 standard drink = 0.6 oz pure alcoho l) rare occasions (1 per month) Sex Assigned at Date Recorded Not on file documented as of this encounter Last Filed Vital Signs Vital Sign Reading Time Taken Comments Blood Pressure 122/64 06/08/2019 3:33 PM COPYWRITING INTERN Pulse 68 06/08/2019 3:33 PM COPYWRITING INTERN Temperature - - Respiratory Rate - - Oxygen Saturation - - Inhaled Oxygen Concentration - - Weight 93 kg (205 lb) 06/08/2019 3:33 PM COPYWRITING INTERN Height 158.8 cm (5' 2.5) 06/08/2019 3:33 PM COPYWRITING INTERN Body Mass Index 36.9 06/08/2019 3:33 PM COPYWRITING INTERN documented in this encounter Patient Instructions Patient InstructionsAllyson Pool PA-C - 06/08/2019 3:30 PM CST 1.) When you are fasting (nothing to eat or drink for 8-10 hours - you can drink water) go to lab for your blood work. You can call [phone] to schedule an appointment, but can also walk in. Lab hours: Saturday-Saturday 7am-7pm. Saturdays 8am-12pm. 2.) Schedule an appointment with the log chipper operator for November 2019. 3.) Please call [phone] to schedule your DEXA bone scan. Special instructions for the DEXA scan: - Bring a current list of your medications including calcium and vitamin D and other supplements to your appointment. - Do not have a barium x-ray for 3 weeks prior to your DEXA or IV contrast 1 week prior. 4.) Please call [phone] to schedule your thyroid ultrasound. Follow up with me in 6 months after you see your log chipper operator. Annual Wellness Visit Summary Your care team is recommending the following tests, procedures or services. Some of these recommendations may not be fully covered by Medicare or your insurance. If you have questions, check with your insurance to determine coverage before completing these services. Health Maintenance Due Health Maintenance Due Topic Date Due ??? DTaP/Tdap/Td (1 - Tdap) 1948 ??? Advanced Directive 2002 ??? Dexa 2002 ??? Medicare Annual Wellness Visit 11/07/2018 ??? Influenza (1) 01/11/2019 If your Medicare Welcome or Annual Wellness Visit is showing you are due in the above list, this will be updated after this visit. You had this completed today and are not due for another year. WRITING INTERN documented in this encounter Progress Notes Allyson Pool PA-C - 06/08/2019 3:30 PM CST Internal Medicine [facility] - Allyson Vyas 83 y.o. Female : 1935 PN Date of Service: 06/08/2019 Chief Complaint: follow up Cyber Security Instructor Present: no HPI: Fidelia Vyas is a 83 y.o. female who presents with her daughter Onel for routine follow up. She had been doing well and stable. 1.) Dementia. On aricept and sx stable. She lives with her . Does her own house work. No safety concerns. 2.) Depression. Doing well since neurology switched her to effexor. 3.) H/o CAD/DC. Followed by [facility] and due for her 2 year recheck in November 2019. BP controled. Compliant with meds. No chest pain. 4.) Thyroid nodule. Due for repeat thyroid US 5.) screening. Due for DEXA, labs, and tdap Patient Active Problem List Diagnosis ??? 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 Incontinence Social History: non-smoker Allergies: Atorvastatin and Morphine Outpatient Medications Prior to Visit Medication Sig Note Dispense Refill ??? donepezil (ARICEPT) 10 MG tablet TAKE 1 TABLET BY MOUTH DAILY AT BEDTIME 90 Tablet 2 ??? nitroglycerin (NITROSTAT) 0.[address] 0.4 mg under tongue. 11/01/2016: Received from: [facility] Sig: Place 1 tablet (0.4 mg) under the tongue every 5 minutes as needed forchest pain ??? amLODIPine (NORVASC) 5 MG tablet Take 0.5 Tablets by mouth daily. 45 Tablet 3 ??? aspirin 81 MG tablet Take 1 Tablet by mouth daily. Do not take for two weeks after surgery. Oksandrato resume on 07/24/2017 100 Tablet 3 ??? Cholecalciferol (VITAMIN D3) 1000 units ta Take 1 Tablet by mouth daily. 90 Tablet 3 ??? donepezil (ARICEPT) 10 MG tablet Take 1 Tablet by mouth daily at bedtime. 90 Tablet 3 ??? labetalol (TRANDATE) 100 MG tablet Take 1/2 tablet in the morning and 1 tablet in the evening. 135 Tablet 3 ??? rosuvastatin (CRESTOR) 40 MG tablet Take 1 Tablet by mouth daily. 90 Tablet 3 ??? sertraline (ZOLOFT) 50 MG tablet Take 1.5 Tablets by mouth daily. (Patient not taking: Reported on 06/08/2019) 135 Tablet 3 ??? triamterene-hydrochlorothiazide (MAXZIDE-25) 37.5-25 MG tablet Take 0.5 Tablets by mouth daily. 45 Tablet 3 ??? venlafaxine (EFFEXORXR) 37.5 MG 24 hour release capsule TAKE 1 CAPSULE BY MOUTH DAILY 30 Capsule3 ??? venlafaxine (EFFEXORXR) 37.5 MG 24 hour release capsule TAKE 1 CAPSULE BY MOUTH DAILY 30 Capsule0 No facility-administered medications prior to visit. Review of Systems: Complete review of systems assessed. Pertinent review of systems negative except for what is noted in the HPI. All others systems negative. Physical Exam: BP 122/64 (BP Location: Left Arm, BP Cuff Size: Large) Pulse 68 Ht 1.588 m (5' 2.5) Wt 93 kg (205 lb) BMI 36.90 kg/m?? Constitutional: Well developed, Well nourished, No acute distress, Non-toxic appearance. Cardiovascular: Regular rate and rhythm. No murmur, rub, or gallop. Respiratory: No respiratory distress. Clear to auscultation bilaterally, no wheezes, rhonchi, or rales. Neuro: poor memory. repeats questions frequently. No other acute neuro deficit Psychiatric: Mood and affect appropriate to the situation. 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 Allyson Pool PA-C 4:40 PM 06/08/2019 ICD-10-CM 1. 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 Encounter for Medicare annual wellness exam Z00.00 3. Immunization due Z23 TDAP 4. Screening for osteoporosis Z13.820 DEXA Bone Density Spine/Hip 5. Essential hypertension ([facility]) I10 amLODIPine (NORVASC) 5 MG tablet labetalol (TRANDATE) 100 MG tablet triamterene-hydrochlorothiazide (MAXZIDE-25) 37.5-25 MG tablet 6. Vitamin D deficiency ([facility]) E55.9 Cholecalciferol (VITAMIN D3) 25 MCG (1000 UT) ta 7. Hyperlipidemia, unspecified hyperlipidemia type ([facility]) E78.5 rosuvastatin (CRESTOR) 40 MG tablet 8. Old myocardial infarction ([facility]) I25.2 nitroglycerin (NITROSTAT) 0.4 MG sublingual tablet Medicare Annual Subjective/Historical: Fidelia Vyas is a 83 y.o. old female Chief Complaint Patient presents with ??? Medicare Annual Wellness Current Concerns: See above Mini-Cog Assessment Word Recall: 0 Clock Draw: 2 Total: 2 Additional Assessments Completed: PHQ9 was administered today with a total score of: 1 Has a Health Care Directive on file? no. Pertinent Positives from Medicare Wellness Form: MEDICARE ANNUAL WELLNESS CONCERNS 06/08/2019 11/07/2017 How many servings of fruits and vegetables do you eat a day? 2 to 4 2 to 4 Do you have difficulty doing any of the following activities? - Laundry Using stairs Driving or using transportation Food preparation Do you forget to take, miss taking your medication or skip a dose more than 1 time a week? - Yes Do you feel unsteady when walking? - Yes If yes, do you use a? - Cane Walker Do you have rugs (not carpet) in your home? Yes - Have you fallen 2 or more times in the past year? - Yes Are you able to manage your finances yourself? No No (If a dash (-) appears in table above, this question was a pertinent positive during a previous Medicare Welcome or Annual Wellness Visit.) The patient's health maintenance, problem list, past medical history, past surgical history, family history, medication list, allergies, and immunization records have been reviewed and updated in the patient record as necessary. Observed Vitals: BP 122/64 (BP Location: Left Arm, BP Cuff Size: Large) Pulse 68 Ht 1.588 m (5' 2.5) Wt 93 kg (205 lb) BMI 36.90 kg/m?? Assessment/Plan 1. 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 Encounter for Medicare annual wellness exam 3. Immunization due 4. Screening for osteoporosis 5. Essential hypertension (HRC) 6. Vitamin D deficiency (HRC) 7. Hyperlipidemia, unspecified hyperlipidemia type (HRC) 8. Old myocardial infarction (HRC) Counseling and education provided today includes proper nutrition and health habits, fall prevention, and for those items ordered above. Plan for future preventive services in Patient Instructions. Allyson Pool PA-C 06/08/2019, 3:58 PM WRITING INTERN documented in this encounter Plan of Treatment Not on filedocumented as of this encounter Results Liver Panel(Hepatic Function Panel) (06/17/2019 9:52 AM COPYWRITING INTERN) athologist Signature Alkaline 47 40 - 150 06/17/2019 [facility] Phosphatase U/L 10:27 AM COPYWRITING INTERN LABORATORY Bilirubin, Total 1.1 0.2 - 1.2 06/17/2019 [place] mg/dL 10:27 AM COPYWRITING INTERN LABORATORY Bilirubin, 0.4 0.0 - 0.5 06/17/2019 [facility] Direct mg/dL 10:27 AM COPYWRITING INTERN LABORATORY AST (SGOT) 21 10 - 40 06/17/2019 [place] U/L 10:27 AM COPYWRITING INTERN LABORATORY ALT (SGPT) 12 0 - 55 U/L 06/17/2019 [facility] 10:27 AM COPYWRITING INTERN LABORATORY Protein, Total 7.1 6.4 - 8.3 06/17/2019 [facility] g/dL 10:27 AM COPYWRITING INTERN LABORATORY Albumin 3.7 3.5 - 5.0 06/17/2019 [facility] g/dL 10:27 AM COPYWRITING INTERN LABORATORY Specimen Anatomical Collection Method / Collection Time Recei miladis Time (Source) Location / Volume Laterality Blood Venipuncture / 06/17/2019 9:52 06/17/2019 9:52 Unknown AM COPYWRITING INTERN AM COPYWRITING INTERN Allyson Pool PA-C LAB_1 Performing Organization Address City/[facility] Phon e Number [facility] [address] [place] [address] (ABNORMAL) Free Light Chains, Serum (06/17/2019 9:52 AM COPYWRITING INTERN) [facility] Marcandi Method Time Signature [place] Free 2.80 (H) 0.33 - 06/18/2019 [facility] Light Chains 1.94 9:09 AM COPYWRITING INTERN CENTRAL LAB mg/dL Lambda Free 1.68 0.57 - 06/18/2019 [facility] Light Chains 2.63 9:09 AM COPYWRITING INTERN CENTRAL LAB mg/dL [place]/Lambda 1.67 (H) 0.26 - 06/18/2019 [facility] Ratio 1.65 9:09 AM COPYWRITING INTERN CENTRAL LAB Specimen Anatomical Collection Method / Collection Time Recei miladis Time (Source) Location / Volume Laterality Blood Venipuncture / 06/17/2019 9:52 06/17/2019 9:52 Unknown AM COPYWRITING INTERN AM COPYWRITING INTERN Allyson Pool PA-C LAB_1 Performing Organization Address City/[facility] Code Phon e Number REPLACED BY [facility] CENTRAL LAB [address] [address] (ABNORMAL) Electrophoresis [place] To [place],Serum (06/17/2019 9:52 AM COPYWRITING INTERN) [facility] Marcandi Method Time Signature Total Protein 6.8 6.4 - 8.3 06/18/2019 [facility] g/dL 2:48 PM COPYWRITING INTERN CENTRAL LAB Albumin 3.7 3.4 - 4.8 06/18/2019 [facility] g/dL 2:48 PM COPYWRITING INTERN CENTRAL LAB Alpha 1 0.3 0.2 - 0.5 06/18/2019 [facility] g/dL 2:48 PM COPYWRITING INTERN CENTRAL LAB Alpha 2 0.9 0.5 - 1.1 06/18/2019 [facility] g/dL 2:48 PM COPYWRITING INTERN CENTRAL LAB Beta 0.7 0.6 - 1.1 06/18/2019 [facility] g/dL 2:48 PM COPYWRITING INTERN CENTRAL LAB Gamma 1.1 0.7 - 1.6 06/18/2019 [facility] g/dL 2:48 PM COPYWRITING INTERN CENTRAL LAB Monoclonal 0.5 (H) <=0.0 06/18/2019 REPLACED BY [facility] [place] g/dL 2:48 PM COPYWRITING INTERN CENTRAL LAB Comment: IgG [place] Interpretation A monoclonal protein 06/18/2019 2:4 8 [facility] has been detected by PM COPYWRITING INTERN CENTRAL L AB serum protein electrophoresis. Additional Testing Not indicated. 06/18/2019 2:48 [facility] PM COPYWRITING INTERN CENTRAL LAB Signed Out By [facility] 06/18/2019 2: 48 REPLACED BY [facility] Laboratory PM COPYWRITING INTERN CENTRAL LAB Specimen Anatomical Collection Method / Collection Time Recei miladis Time (Source) Location / Volume Laterality Blood Venipuncture / 06/17/2019 9:52 06/17/2019 9:52 Unknown AM COPYWRITING INTERN AM COPYWRITING INTERN Allyson Pool PA-C LAB_1 Performing Organization Address City/State/ZIP Code Phon e Number REPLACED BY [facility] CENTRAL LAB [address] [address] documented in this encounter Visit Diagnoses Diagnosis Monoclonal gammopathy present on serum p rotein electrophoresis (HRC) - Primary Encounter for Medicare annual wellness e xam Immunization due Need for prophylactic vaccination and in oculation against unspecified single disease Screening for osteoporosis Special screening for osteoporosis Essential hypertension (HRC) Unspecified essential hypertension Vitamin D deficiency (HRC) Unspecified vitamin D deficiency Hyperlipidemia, unspecified hyperlipidem ia type (HRC) Old myocardial infarction (HRC) Old myocardial infarction documented in this encounter Care Teams Advertising Operations Coordinator Relationship Specialty Start Date End Date Allyson Pool PA-C PCP - General Physician Agency Recruiter 09/26/16 02/28/[address] [place] [address] Erin ESCALANTE Mail Distribution Scheme Examiner 10/24/17 BORIS Desir [phone] Fatou Haile Mail Distribution Scheme Examiner 06/03/18 mauri garcia [facility] Heliarc Welder 05/28/19 documented as of this encounter
--- OUTSIDE RECORDS SUMMARY | 2022-02-21 10:27 | XMS_ITS | Encounter Summary ---
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 [address] [facility] [place] [address] [facility] [address] [place] [phone] (Wo rk) Social History Tobacco Use Types Packs/Day Years Used Date Smoking Tobacco: Never Smokeless Tobacco: Never Alcohol Use Standard Drinks/Week Comments Yes 0 (1 standard drink = 0.6 oz pure alcoho l) rare occasions (1 per month) Sex Assigned at Date Recorded Not on file documented as of this encounter Last Filed Vital Signs Vital Sign Reading Time Taken Comments Blood Pressure 146/66 07/18/2018 1:47 PM HISTORIOGRAPHY TEACHER Pulse 60 07/18/2018 1:47 PM HISTORIOGRAPHY TEACHER Temperature - - Respiratory Rate 16 07/18/2018 1:47 PM HISTORIOGRAPHY TEACHER Oxygen Saturation - - Inhaled Oxygen Concentration - - Weight - - Height - - Body Mass Index - - documented in this encounter Patient Instructions Patient InstructionsJose Aldridge MD - 07/18/2018 1:50 PM CST Stop sertraline. Start effexor - take 1 pill once per day in the morning. Call our clinic in about 4-6 weeks with howyour mood is. If no improvement we can have you see psychiatry for further recommendations for depression. Continue donepezil (aricept). Follow up with me in about 6 months. ORIOGRAPHY TEACHER documented in this encounter Progress Notes Jose Aldridge MD - 07/18/2018 12:00 PM CST NAME: FIDELIA LUNDBERG MR#: [id number] CSN: [id number] AUTHENTICATING CLINICIAN: Jose Aldridge MD CONFIRM #: [id number] LOC: 223 CLINIC PROGRESS NOTE DATE OF VISIT: 07/18/2018 : 1935 CHIEF COMPLAINT: Followup for cognitive impairment. HISTORY OF PRESENT ILLNESS: Fidelia Lundberg is an 82-year-old woman here for followup. She has probable Alzheimer's dementia. Since her last visit, she has been having a fair amount of depression. Recently, she has been on paroxetine and sertraline for this, and I do not get the sense that either of these have been terribly helpful. She continues to have fairly persistently low mood. At times, she has anxiety and perhaps some mild delusions about what some of her friends may think about her. This causes her to be fairly teary. She does not have any visual hallucinations. She denies any rigidity, bradykinesia, or shuffling gait.She has not had any recent falls. She remains on donepezil 10 mg per day for cognitive impairment, which she has tolerated well. PHYSICAL EXAM: VITAL SIGNS: Blood pressure 146/66, pulse 60, respiratory rate 16. NEUROLOGIC: Remarkable for a Mini-Mental Status Exam score of approximately 22/30, which is stable from 6 months ago. The remainder of her exam was remarkable for normal finger tapping, rapid alternating movements, finger to nose. IMPRESSION: 1.Probable Alzheimer's dementia, mild to moderate in severity. 2.Depression and anxiety. I will have her stop sertraline and start Effexor XR 37.5 mg once per day. Potential side effects were discussed with her and her . I would like for them to update me in 4 to 6 weeks as to whether her mood is improving. If it is not, I think we should have her see Psychiatry given the multiple failed medications at this point. Medication like quetiapine or other neuroleptics could be considered if delusions persist. She is, otherwise, in a supportive environment and other than continuing donepezil, no further medication changes are recommended. She will follow up in approximately 6 months and call with any new concerns or questions. BASILIA:RANDI C: CONFIRM #: [id number] documented in this encounter Plan of Treatment Not on filedocumented as of this encounter Visit Diagnoses Diagnosis Dementia in Alzheimer's disease (HRC) - Primary Alzheimer's disease Recurrent major depressive disorder, in partial remission (HRC) documented in this encounter Care Teams Dairy Nutrition Consultant Relationship Specialty Start Date End Date Allyson Pool PA-C PCP - General Physician Logistics Service Representative 09/26/16 02/28/21 [address] [place] [address] Erin ESCALANTE Abap Developer 10/24/17 BORIS Desir [phone] Fatou Haile Abap Developer 06/03/18 documented as of this encounter
--- OUTSIDE RECORDS SUMMARY | 2022-02-21 10:27 | XMS_ITS | Encounter Summary ---
:1935 Author Organization [employer] Address [address] [address] Care Team Providers Name Role Phone Needs Pcp, Assignment Primary Care Provider Reason for Visit Reason Onset Date Comments Refill 03/24/2021 Encounter Details Date Type Department Care Team Description 03/24/2021 Refill [facility] [address] Neurology Nany Newman RN Refill [address] [place] [address] Social History Tobacco Use Types Packs/Day Years Used Date Smoking Tobacco: Never Smokeless Tobacco: Never Alcohol Use Standard Drinks/Week Comments Yes 0 (1 standard drink = 0.6 oz pure alcoho l) rare occasions (1 per month) Sex Assigned at Date Recorded Not on file documented as of this encounter Nursing Notes Nany Newman RN - 03/24/2021 11:57 AM CST Appt next month, Rx sent. INSPECTOR documented in this encounter Plan of Treatment Not on filedocumented as of this encounter Visit Diagnoses Not on filedocumented in this encounter Care Teams Supervisor [employer]ension Warehouse Relationship Specialty Start Date End Date Needs Pcp, Assignment PCP - General 03/01/21 07/23/21 [place], [place] [address] Erin ESCALANTE Sports Betting Manager 10/24/17 BORIS Desir [phone] Fatou Haile Sports Betting Manager 06/03/18 mauri ESCALANTE Message And Delivery Service Pricer 05/28/19 documented as of this encounter
--- OUTSIDE RECORDS SUMMARY | 2022-02-21 10:27 | XMS_ITS | Encounter Summary ---
:1935 Author Organization [employer] Address [address] [place] [address] Care Team Providers Name Role Phone Allyson Pool PA-C Primary Care Provider Reason for Visit Reason Comments Test Results DEXA Scan Encounter Details Date Type Department Care Team Description 07/13/2019 Telephone [facility] Allyson Pool PA-C Test Results (DEXA Medicine [address] Scan) [address] [place] [address] [place] [address] [phone] Social History Tobacco Use Types Packs/Day Years Used Date Smoking Tobacco: Never Smokeless Tobacco: Never Alcohol Use Standard Drinks/Week Comments Yes 0 (1 standard drink = 0.6 oz pure alcoho l) rare occasions (1 per month) Sex Assigned at Date Recorded Not on file documented as of this encounter Nursing Notes Estrella Vann LPN - 07/13/2019 4:42 PM CST I called and spoke to pt's Mayo, due to her level of dementia pt doesn't recall conversations to relay results. I advised Mayo of the provider's message and explained that the reason for her to come in would be to discuss possible treatments and if they would be a good idea at this point. Susy juarez said that they are getting really sick and tired of coming in for all these appointment to be asked how are you? good okay well we will continue to monitor and nothing gets changed. I expressed that Allyson wants to see pt to discuss results and possible treatment and Mayo said that they would think about and call if they decide to come in for an appointment. PEENING OPERATOR Allyson Pool PA-C - 07/13/2019 4:29 PM CST Patient has osteoporosis. I would like to see her in clinic to discuss. Allyson Pool PA-C 4:29 PM 07/13/2019 PEENING OPERATOR documented in this encounter Plan of Treatment Not on filedocumented as of this encounter Visit Diagnoses Not on filedocumented in this encounter Care Teams Library Clerk Relationship Specialty Start Date End Date Allyson Pool PA-C PCP - General Physician Resin Maker 09/26/16 02/28/21 [address] [place] [address] Erin PRADOW Director Of Event Marketing 10/24/17 BORIS Desir [phone] Fatou Haile Director Of Event Marketing 06/03/18 mauri garcia [facility] Case Resolution Specialist 05/28/19 documented as of this encounter
--- OUTSIDE RECORDS SUMMARY | 2022-02-21 10:27 | XMS_ITS | Encounter Summary ---
:1935 Author Organization [employer] Address [address] [place] [address] Care Team Providers Name Role Phone Allyson Pool PA-C Primary Care Provider Reason for Visit Reason Onset Date Comments Refill 08/31/2019 Encounter Details Date Type Department Care Team Description 08/31/2019 Refill [facility] 393 1 Neurology Nany Newman RN Refill 3931 [place], [place] [id number] Social History Tobacco Use Types Packs/Day Years Used Date Smoking Tobacco: Never Smokeless Tobacco: Never Alcohol Use Standard Drinks/Week Comments Yes 0 (1 standard drink = 0.6 oz pure alcoho l) rare occasions (1 per month) Sex Assigned at Date Recorded Not on file documented as of this encounter Nursing Notes Nany Newman RN - 08/31/2019 12:40 PM CDT LS 07/2018, Rx sent and Letter sent to schedule visit. documented in this encounter Plan of Treatment Not on filedocumented as of this encounter Visit Diagnoses Not on filedocumented in this encounter Care Teams Adjunct History Instructor Relationship Specialty Start Date End Date Allyson Pool PA-C PCP - General Physician Medical Office Coordinator 09/26/16 02/28/21 [address] [place] [id number] Erin Meza [facility] Intermediate School Teacher 10/24/17 BORIS Desir [phone] Fatou Haile [employer]mediate School Teacher 06/03/18 mauri garcia [facility] Sodium Methylate Operator 05/28/19 documented as of this encounter
--- OUTSIDE RECORDS SUMMARY | 2022-02-21 10:27 | XMS_ITS | Encounter Summary ---
:1935 Author Organization [employer] Address [address] [place] [address] Care Team Providers Name Role Phone Allyson Pool PA-C Primary Care Provider Reason for Referral Consult/Transfer Care (Routine) - Closed Specialty Diagnoses / Procedures Referred By Contact Refer red To Contact Diagnoses Dementia in Alzheimer's disease (HRC) Jose Aldridge MD [address] [facility] [address] [place] [address] Referral ID Status Reason Start Date Expiration Date Visits Requ ested Visits Authorized [id number] Closed 09/10/2019 12/09/2020 1 1 Scheduling Instructions If scheduling assistance is needed, jose roberto rhodes inquire with the medical office staff upon exiting your appointment or contact the ordering clinic for recommended locations. This recommended service/s may not be co singh by your insurance coverage. To find out your specific benefit coverage, please c all the number on your insurance card. Reason for Visit Reason Onset Date Comments Phone Visit Phone Visit 09/10/2019 Encounter Details Date Type Department Care Team Description 09/10/2019 Phone Visit Specialty Center 3931 Norberto Aldridge MD Dementia in Neurology [address] [facility] Alzheimer's disease [address] [facility] [place] [address] ([facility]) (Primary Dx) [place] [address] [phone] Social History Tobacco Use Types Packs/Day Years Used Date Smoking Tobacco: Never Smokeless Tobacco: Never Alcohol Use Standard Drinks/Week Comments Yes 0 (1 standard drink = 0.6 oz pure alcoho l) rare occasions (1 per month) Sex Assigned at Date Recorded Not on file documented as of this encounter Patient Instructions Patient InstructionsJose Aldridge MD - 09/10/2019 1:30 PM CDT Continue same medications - donepezil for your memory, venlafaxine for depression/anxiety Follow up with me in one year, sooner as needed documented in this encounter Progress Notes Jose Aldridge MD - 09/10/2019 1:30 PM CDT Subjective: Today's visit with Fidelia was conducted as a scheduled telephone visit. 83-year-old woman here for routine follow-up regarding history of Alzheimer's dementia. She has not noticed any significant changes in her thinking her her memory over the last few months. Depression and anxiety got noticeably better with the addition of venlafaxine one year ago. She denies any residual mood symptoms. She says that she physically feels quite well. She does not have any gait or balance problems. Objective: She was not oriented to the month, date, or year. She did not know the name of the president. Assessment/Plan: Alzheimer's dementia, mild to moderate in severity. She will continue donepezil 10 mg per day. Regarding depression and anxiety, she has had significant improvement with venlafaxine. She will continue this. She will call with any further questions or concerns and otherwise see me back for routine visit in one year. Billing based on: Time 15 minutes spent on the phone with the patient, with greater than 50% in counseling and coordination of care.. Jose Aldridge MD documented in this encounter Plan of Treatment Scheduled Referrals Name Type Priority Associated Diagnoses Order S [facility] Specialty Care Referral Routine Dementia in Alzheimer's Or dered: 09/10/2019 Follow-up disease (HRC) documented as of this encounter Visit Diagnoses Diagnosis Dementia in Alzheimer's disease (HRC) - Primary Alzheimer's disease documented in this encounter Care Teams Film Examiner Relationship Specialty Start Date End Date Allyson Pool PA-C PCP - General Physician Restaurant Hourly Team Member 09/26/16 02/28/21 [address] [place] [id number] Erin ESCALANTE Sales Mgr 10/24/17 BORIS Desir [phone] Fatou Haile Sales Mgr 06/03/18 mauri ESCALANTE Dry House Tender 05/28/19 documented as of this encounter
--- OUTSIDE RECORDS SUMMARY | 2022-02-21 10:27 | XMS_ITS | Encounter Summary ---
:1935 Author Organization [employer] Address [address] [place] [address] Care Team Providers Name Role Phone Stephanie Pool PA-C Primary Care Provider Reason for Visit Reason Comments Refill labetalol (TRANDATE) 100 MG tablet [Pharmacy Med Name: LABETALOL 100MG TABLETS] Encounter Details Date Type Department Care Team Description 08/25/2019 Refill [facility] Stephanie Pool PA-C Refill (labetalol Medicine [address] (TRANDATE) 100 MG [address] [place] [address] tablet [[place] [address] Name: LABETALOL 100MG [phone] TABLETS]) Social History Tobacco Use Types Packs/Day Years Used Date Smoking Tobacco: Never Smokeless Tobacco: Never Alcohol Use Standard Drinks/Week Comments Yes 0 (1 standard drink = 0.6 oz pure alcoho l) rare occasions (1 per month) Sex Assigned at Date Recorded Not on file documented as of this encounter Nursing Notes Keesha Rutherford RN - 08/26/2019 9:52 AM CDT Resent prescription dated 06/08/19 to requesting pharmacy. Requested Prescriptions Pending Prescriptions Disp Refills ??? labetalol (TRANDATE) 100 MG tablet [Pharmacy Med Name: LABETALOL 100MG TABLETS] 135 Tablet 3 Sig: TAKE ONE-HALF TABLET BY MOUTH EVERY MORNING AND 1 TABLET EVERY EVENING Interface, Out [employer] Query - 08/25/2019 3:27 AM CDT labetalol (TRANDATE) 100 MG tablet [Pharmacy Med Name: LABETALOL 100MG TABLETS] Medication started: 09/29/2016 Last ordered by STEPHANIE POOL: 06/08/2019 (78 days ago) QTY: 135, Refills: 3, Sig: take 1/2 tablet inthe morning and 1 tablet in the evening. (changed) -> This medication may not have been authorized by the requested provider. -> Unable to determine if patient is due for a renewal, please review. -> The requested sig has changed from the last order. -> Refill x 12 months (until due for an office visit) -> Calculate the quantity and number of refills manually. Last qualifying visit: 06/08/2019 (with STEPHANIE POOL) Next scheduled visit: None SBP: 122 mm Hg on 06/08/2019 DBP: 64 mm Hg on 06/08/2019 Powered by [employer], Reference: [id number], 08/25/2019 3:27:00 AM CDT, Gary: LIBRADO HERNANDEZ REFILL ([id number]) documented in this encounter Plan of Treatment Not on filedocumented as of this encounter Visit Diagnoses Diagnosis Essential hypertension (HRC) Unspecified essential hypertension documented in this encounter Care Teams Sommelier Relationship Specialty Start Date End Date Stephanie Pool PA-C PCP - General Physician Electrician Front 09/26/16 02/28/[address] [place] [address] Erin ESCALANTE Bag Sewer 10/24/17 BORIS Desir [phone] Fatou Haile Bag Sewer 06/03/18 mauri ESCALANTE Casino Supervisor 05/28/19 documented as of this encounter
--- OUTSIDE RECORDS SUMMARY | 2022-02-21 10:27 | XMS_ITS | Encounter Summary ---
:1935 Author Organization [employer] Address [address] [place] [address] Care Team Providers Name Role Phone Allyson Pool PA-C Primary Care Provider Reason for Visit Reason Comments IMMUNIZATIONS Encounter Details Date Type Department Care Team Description 07/04/2018 Telephone [facility] Allyson Pool PA-C IMMUNIZATIONS Medicine [address] [place] [address] [place] [address] [phone] Social History Tobacco Use Types Packs/Day Years Used Date Smoking Tobacco: Never Smokeless Tobacco: Never Alcohol Use Standard Drinks/Week Comments Yes 0 (1 standard drink = 0.6 oz pure alcoho l) rare occasions (1 per month) Sex Assigned at Date Recorded Not on file documented as of this encounter Nursing Notes Estrella Vann LPN - 07/15/2018 9:57 AM CST I called and spoke to pt inquiring if she has checked with her insurance for coverage of the new Shingrix vaccine. Pt reported not yet but thanks for the reminder and I instructed pt to call [phone] if she plans to get the shot through the clinic. Pt verbalized understanding. Y LEVEL ACCOUNT REPRESENTATIVE Estrella Vann LPN - 07/04/2018 1:36 PM CST (Frontline/PSC: If caller has no additional questions after reading below message, update note and close encounter) Left message for patient to call back. [facility]line[facility] ([facility]), please inform patientof below message. I called and left a VM for pt notifying her that I do have a Shingrix vaccine ready for her in clinic. I instructed pt to call [phone] to either schedule a nurse only appointment to get the shot or to let us know she won't be receiving it through the clinic. I explained that the 1st shot is the only shot we are offering at this time. Y LEVEL ACCOUNT REPRESENTATIVE documented in this encounter Plan of Treatment Not on filedocumented as of this encounter Visit Diagnoses Not on filedocumented in this encounter Care Teams Soccer Commentator Relationship Specialty Start Date End Date Allyson Pool PA-C PCP - General Physician Steeping Press Tender 09/26/16 02/28/21 [address] [place] [id number] Erin ESCALANTE Tape Control Skin Or Spar Mill Operator 10/24/17 BORIS Desir [phone] Fatou Haile Tape Control Skin Or Spar Mill Operator 06/03/18 documented as of this encounter
--- OUTSIDE RECORDS SUMMARY | 2022-02-21 10:27 | XMS_ITS | Encounter Summary ---
:1935 Author Organization [facility] Address [address], [place] [address] Care Team Providers Name Role Phone Allyson Pool PA-C Primary Care Provider Reason for Visit Reason Comments Refill Encounter Details Date Type Department Care Team Description 10/26/2018 Refill Specialty Center 3931 Norberto Aldridge MD Refill Neurology [address] [facility] [address] [place] [phone] (Wo rk) Social History Tobacco Use Types [...] on filedocumented in this encounter Care Teams Technical Training Instructor Relationship Specialty Start Date End Date Allyson Pool PA-C PCP - General Physician Volleyball Assistant Coach 09/26/16 02/28/[address] [place] [address] Erin ESCALANTE Principle Software Engineer 10/24/17 BORIS Desir [phone] Fatou Haile Principle Software Engineer 06/03/18 documented as of this encounter
--- OUTSIDE RECORDS SUMMARY | 2022-02-21 10:27 | XMS_ITS | Encounter Summary ---
:1935 Author Organization [employer] Address [address] [place] [address] Care Team Providers Name Role Phone Allyson Pool PA-C Primary Care Provider Reason for Visit Reason Comments Infusion Infusion Therapy Plan (Routine) - Authorized Specialty Diagnoses / Procedures Referred By Contact Refer red To Contact Diagnoses Age-related osteoporosis without current pathological fracture (HRC) Surya Vinson MD Unknown Infusion [address] [facility] [address] Location [place] [address] [phone] Referral ID Status Reason Start Date Expiration Date Visits V isits Requested Authorized [id number] Authorized 05/19/2020 07/20/2022 999 999 Encounter Details Date Type Department Care Team Description 07/08/2020 Hospital Encounter [facility] Pat abrams Age-related [address] [facility] [place] [address] current pathological [phone] fracture (Prima ry Dx) Social History Tobacco Use Types Packs/Day Years Used Date Smoking Tobacco: Never Smokeless Tobacco: Never Alcohol Use Standard Drinks/Week Comments Yes 0 (1 standard drink = 0.6 oz pure alcoho l) rare occasions (1 per month) Sex Assigned at Date Recorded Not on file documented as of this encounter Last Filed Vital Signs Vital Sign Reading Time Taken Comments Blood Pressure 137/72 07/08/2020 9:44 AM SUPPLY AND DISTRIBUTION MANAGER Pulse 60 07/08/2020 9:44 AM SUPPLY AND DISTRIBUTION MANAGER Temperature 36.1 ??C (97 ??F) 07/08/2020 9:44 AM SUPPLY AND DISTRIBUTION MANAGER Respiratory Rate - - Oxygen Saturation - - Inhaled Oxygen Concentration - - Weight - - Height - - Body Mass Index - - documented in this encounter Medications at Time of Discharge Medication Sig Dispensed Refills Start Date End Date Calcium 600-200 Take 1 Each by 180 Each 3 04/12/2020 MG-UNITIndications: mouth two times a Osteoporosis, unspecified day. osteoporosis type, unspecified pathological fracture presence (HRC) Cholecalciferol (VITAMIN Take 1 Tablet by 90 Tablet 3 04/12 D3) 25 MCG (1000 UT) mouth daily. 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 If no relief after 5 min call 911;continue 1 tab every 5 min max 3 tab amLODIPine (NORVASC) 5 MG Take 0.5 Tablets 45 Tablet 3 05/201904/07/2021 tabletIndications: by mouth daily. Essential hypertension (HRC) aspirin 81 MG tablet Take 1 Tablet by 100 Tablet 3 0 07/21/2020 mouth daily. Do not take for two weeks after surgery. Okay to resume on 07/24/2017 donepezil (ARICEPT) 10 MG Take 1 Tablet by 90 Tablet 3 08/1310/07/2020 tablet mouth daily. labetalol (TRANDATE) 100 TAKE ONE-HALF 135 Tablet 3 04/12/20 20 10/30/2020 MG tabletIndications: TABLET BY MOUTH Essential hypertension EVERY MORNING AND (HRC) 1 TABLET EVERY EVENING nitroglycerin (NITROSTAT) Place 0.4 mg under 0 06/23/2021 0.4 MG sublingual tablet tongue. rosuvastatin (CRESTOR) 40 Take 1 Tablet by 90 Tablet 3 05/201906/20/2021 MG tabletIndications: mouth daily. Hyperlipidemia, unspecified hyperlipidemia type (HRC) triamterene-hydrochlorothi Take 0.5 Tablets 45 Tablet 3 05/201906/20/2021 azide (MAXZIDE-25) 37.5-25 by mouth daily. MG tabletIndications: Essential hypertension (HRC) venlafaxine (EFFEXORXR) 75 Take 1 Capsule by 90 Capsule 3 04/25/2021 MG 24 hour release mouth daily. 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 N/A Premedications: No Cr drawn today. Educated Fidelia and daughter on drug and denies questions. Patient arrived for Reclast infusion. Vital signs stable. No signs of infection. Tolerated infusion well. Discharged in stable condition. Will return to clinic for next infusion as scheduled in 1 year . Soraya Orona RN 11:16 AM 07/08/2020 LY AND DISTRIBUTION MANAGER documented in this encounter Plan of Treatment Not on filedocumented as of this encounter Procedures Procedure Name Priority Date/Time Associated Diagnosis Comme nts CREATININE / GFR Routine 07/08/2020 9:37 AM Age-related Resul ts for this SUPPLY AND DISTRIBUTION MANAGER osteoporosis without procedu re are in current pathological the res ults fracture section. documented in this encounter Results CREAT - Creatinine (07/08/2020 9:37 AM SUPPLY AND DISTRIBUTION MANAGER) P athologist Signature Creatinine 0.80 0.55 - 07/08/2020 [facility] 1.02 mg/dL 10:54 AM SUPPLY AND DISTRIBUTION MANAGER LABORATORY GFR, Estimated >60 >60 07/08/2020 [facility] mL/min/1.7 10:54 AM SUPPLY AND DISTRIBUTION MANAGER LABORATORY 3m2 Specimen Anatomical Collection Method / Collection Time Recei miladis Time (Source) Location / Volume Laterality Blood Venipuncture / 07/08/2020 9:37 07/08/2020 9:51 Unknown AM SUPPLY AND DISTRIBUTION MANAGER AM SUPPLY AND DISTRIBUTION MANAGER Surya Vinson MD LAB_1 Performing Organization Address City/State/ZIP Code Phon e Number [facility] [address] [place] [address] documented in this encounter Visit Diagnoses Diagnosis Age-related osteoporosis without current pathological fracture (HRC) - Primary Senile osteoporosis documented in this encounter Administered Medications Inactive Administered Medications - up to 3 most recent administrations Medication Order MAR Action Action Date Dose Rate Site sodium chloride 0.9% infusion Started 07/08/2020 10:00 AM SUPPLY AND DISTRIBUTION MANAGER 500 mL 20 mL/hr 500 mL, Intravenous, at 20 mL/hr, ONCE, On Sat07/08/20 at 1100, For 1 dose sodium chloride 0.9% injection 10-60 mL Given 07/08/2020 10:54 AM SUPPLY AND DISTRIBUTION MANAGER 10 mL 10-60 mL, Intravenous, PRN BEFORE&AFTER MEDICATIONS OR LAB DRAW, Line Patency, Starting on Sat07/08/20 at 1041, Until Sat07/08/20 at 1318, For 1 day zoledronic acid (RECLAST) infusion 5 mg Started 07/08/2020 10:51 AM SUPPLY AND DISTRIBUTION MANAGER 5 mg 5 mg, Intravenous, Administer over 20 Minutes, ONCE, On Sat07/08/20 at 1100, For 1 dose, Hold if patients creatinine clearance is less than 35 mL/minute. Preparation: Single glove, gown; face mask optional Administration: Single glove documented in this encounter Care Teams Stone Setter Relationship Specialty Start Date End Date Allyson Pool PA-C PCP - General Physician Tax Specialist 09/26/16 02/28/21 [address] [place] [address] Erin Meza [facility] Sales Superintendent 10/24/17 BORIS Desir [phone] Fatou Haile Sales Superintendent 06/03/18 mauri garcia [facility] Pbx Supervisor 05/28/19 documented as of this encounter
--- OUTSIDE RECORDS SUMMARY | 2022-02-21 10:27 | XMS_ITS | Encounter Summary ---
:1935 Author Organization [employer] Address [address] [place] [address] Care Team Providers Name Role Phone Needs Pcp, Assignment Primary Care Provider Reason for Visit Reason Comments Refill amLODIPine (NORVASC) 5 MG ta blet [Pharmacy Med Name: AMLODIPINE BESYLATE 5MG TABLETS] Encounter Details Date Type Department Care Team Description 04/07/2021 Refill [facility], Stephanie Fink PA-C Refill (amLODIPine Medicine [address] (NORVASC) 5 MG tablet [address] [place] [address] [Pharmacy Med Name: [place] [id number] AMLODIPINE BESYLATE 5MG [phone] TABLETS]) Social History Tobacco Use Types Packs/Day Years Used Date Smoking Tobacco: Never Smokeless Tobacco: Never Alcohol Use Standard Drinks/Week Comments Yes 0 (1 standard drink = 0.6 oz pure alcoho l) rare occasions (1 per month) Sex Assigned at Date Recorded Not on file documented as of this encounter Nursing Notes Keesha Rutherford RN - 04/07/2021 5:14 PM CST Renewed medication per medication refill protocol. Requested Prescriptions Pending Prescriptions Disp Refills ??? amLODIPine (NORVASC) 5 MG tablet [Pharmacy Med Name: AMLODIPINE BESYLATE 5MG TABLETS] 45 Tablet 0 Sig: TAKE 1/2 TABLET BY MOUTH DAILY SPRINKLER INSPECTOR Interface, Out [employer] Query - 04/07/2021 12:20 PM CST amLODIPine (NORVASC) 5 MG tablet [Pharmacy Med Name: AMLODIPINE BESYLATE 5MG TABLETS] Medication started: 09/29/2016 Last ordered by STEPHANIE CHÁVEZ: 04/12/2020 (360 days ago) QTY: 45, Refills: 3, Sig: take 0.5 tablets by mouth daily. (changed but equivalent) -> Refill x 3 months (until due for an office visit) Last qualifying visit: 04/12/2020 (with STEPHANIE CHÁVEZ) Next scheduled visit: None Powered by [employer], Reference: [id number], 04/07/2021 12:20:12 PM FIRE SPRINKLER INSPECTOR, Pool: LIBRADO HERNANDEZ REFILL ([id number]) SPRINKLER INSPECTOR documented in this encounter Plan of Treatment Not on filedocumented as of this encounter Visit Diagnoses Diagnosis Essential hypertension (HRC) Unspecified essential hypertension documented in this encounter Care Teams Textile Colorist Dyer Relationship Specialty Start Date End Date Needs Pcp, Assignment PCP - General 03/01/21 07/23/21 [place] [address] Erin ESCALANTE Vineyard Tender 10/24/17 BORIS Desir [phone] Fatou Haile Vineyard Tender 06/03/18 mauri ESCALANTE Manager Custom 05/28/19 documented as of this encounter
--- OUTSIDE RECORDS SUMMARY | 2022-02-21 10:27 | XMS_ITS | Encounter Summary ---
:1935 Author Organization [facility] Address [address] [place] [address] Care Team Providers Name Role Phone Allyson Pool PA-C Primary Care Provider Reason for Visit Procedure/Equipment (Routine) - Incomplete Specialty Diagnoses / Procedures Referred By Contact Refer red To Contact Diagnoses Thyroid nodule (HRC) Allyson Pool PA-C Procedures [place] Thyroid [address] [place] [address] Referral ID Status Reason Start Date Expiration Date Visits V isits Requested Authorized [id number] Incomplete 06/26/2018 09/25/2019 1 1 Encounter Details Date Type Department Care Team Description 06/26/2019 Ancillary Procedure [facility] Allyson Pool PA-C Thyroid nodule [address] [place] [address] [place], [place] [phone] Social History Tobacco Use Types Packs/Day Years Used Date Smoking Tobacco: Never Smokeless Tobacco: Never Alcohol Use Standard Drinks/Week Comments Yes 0 (1 standard drink = 0.6 oz pure alcoho l) rare occasions (1 per month) Sex Assigned at Date Recorded Not on file documented as of this encounter Progress Notes Allyson Pool PA-C - 06/26/2019 2:15 PM CST Letter sent to patient. I am happy to report your thyroid nodules are stable. I recommend a repeat thyroid ultrasound in 2 years (June 2021). I hope you are doing well. Allyson Pool PA-C 4:31 PM 06/26/2019 [employer] documented in this encounter Plan of Treatment Not on filedocumented as of this encounter Procedures Procedure Name Priority Date/Time Associated Diagnosis Comme nts US THYROID Routine 06/26/2019 2:40 PM Thyroid nodule Results for this [employer] procedure are i n the results section . documented in this encounter Results US Thyroid (06/26/2019 2:40 PM [employer]) Anatomical Region Laterality Modality Neck, Head Ultrasound Specimen (Source) Anatomical Collection Method Collection Time Re ceived Time Location / / Volume Laterality 06/26/2019 2:14 PM [employer] Impressions 06/26/2019 2:56 PM [employer] COMPARISON: 05/17/2017. Reference also made to a PET/CT scanner from 10/25/2017. TECHNIQUE: Ultrasound examination of the thyroid and adjacent soft tissues was performed. FINDINGS: RIGHT LOBE (cc, trans, ap): 4.6 x ??2.6 x ??1.7 cm LEFT LOBE (cc, trans, ap): 5.0 x ??1.6 x ??1.6 cm Overall, the thyroid gland is heterogene ous in echotexture. Central cervical lymph nodes: Normal siz ed nodes. NODULES: Nodule #1 Size (cc x trans x ap): 2.1 x ??1.7 ??x ??1.2 cm, previously measured as 2.0 x 1.6 x 1.6 cm. Location: Right; Mid Shape: NOT taller than wide ( 0-points) Composition: Solid or almost completely solid ( 2-points) Echogenicity: Isoechoic (1-point) Margins: Smooth (0-points) Echogenic foci: Punctate echogenic foci (3-points): No Peripheral calc (2-points): No Macro-calc (1-point): No Large comet-tail artifact (0-points):No Significant change in size: No Change in ACR TI-RADS risk category: N/A ACR TI-RADS risk category: TR3 (3 points ) A 0.6 cm thick-walled cystic-appearing n odule in the midportion of the left lobe of the thyroid gland is also unchanged. Posterior to the right lobe of the thyro id gland inferiorly there is a 2.3 x 1.4 x 1.3 cm solid isoechoic nodule that was not shown shown on the prior ultrasound, but appears to have been present as an exophytic thyroid nodule on a 10/25/2017 PET/CT. This would be classified as TR3. IMPRESSION: Thyroid nodules appear unchanged since t he prior ultrasound, or a PET/CT from 10/25/2017. Would recommend follow-up in 2 years. ACR TI-RADS recommendations TR1 (0) and TR2 (2 points): No FNA or fo llow-up TR3 (3 points): FNA if greater than or e qual to 2.5 cm; follow-up if 1.5 - 2.4 cm in (1, 3 and 5 years). TR4 (4-6 points): FNA if greater than or equal to 1.5 cm; follow-up if 1.0 - 1.4 cm (1, 2,3 and 5 years). TR5 (> 6 points): FNA if greater than or equal to 1 cm, follow-up if 0.5 - 0.9 cm (every year for 5 years). Procedure Note Jaycob Castaneda MD - 06/26/2019For matting of this note might be different from the original. IMPRESSION COMPARISON: 05/17/2017. Reference also m anjali to a PET/CT scanner from 10/25/2017. TECHNIQUE: Ultrasound examination of the thyroid and adjacent soft tissues was performed. FINDINGS: RIGHT LOBE (cc, trans, ap): 4.6 x 2.6 x 1.7 cm LEFT LOBE (cc, trans, ap): 5.0 x 1.6 x 1 .6 cm Overall, the thyroid gland is heterogene ous in echotexture. Central cervical lymph nodes: Normal siz ed nodes. NODULES: Nodule #1 Size (cc x trans x ap): 2.1 x 1.7 x 1.2 cm, previously measured as 2.0 x 1.6 x 1.6 cm. Location: Right; Mid Shape: NOT taller than wide ( 0-points) Composition: Solid or almost completely solid ( 2-points) Echogenicity: Isoechoic (1-point) Margins: Smooth (0-points) Echogenic foci: Punctate echogenic foci (3-points): No Peripheral calc (2-points): No Macro-calc (1-point): No Large comet-tail artifact (0-points):No Significant change in size: No Change in ACR TI-RADS risk category: N/A ACR TI-RADS risk category: TR3 (3 points ) A 0.6 cm thick-walled cystic-appearing n odule in the midportion of the left lobe of the thyroid gland is also unchanged. Posterior to the right lobe of the thyro id gland inferiorly there is a 2.3 x 1.4 x 1.3 cm solid isoechoic nodule that was not shown shown on the prior ultrasound, but appears to have been present as an exophytic thyroid nodule on a 10/25/2017 PET/CT. This woul d be classified as TR3. IMPRESSION: Thyroid nodules appear unchanged since t he prior ultrasound, or a PET/CT from 10/25/2017. Would recommend follow-up in 2 years. ACR TI-RADS recommendations TR1 (0) and TR2 (2 points): No FNA or fo llow-up TR3 (3 points): FNA if greater than or e qual to 2.5 cm; follow-up if 1.5 - 2.4 cm in (1, 3 and 5 years). TR4 (4-6 points): FNA if greater than or equal to 1.5 cm; follow-up if 1.0 - 1.4 cm (1, 2,3 and 5 years). TR5 (> 6 points): FNA if greater than or equal to 1 cm, follow-up if 0.5 - 0.9 cm (every year for 5 years). Allyson Pool PA-C RAD US documented in this encounter Visit Diagnoses Diagnosis Thyroid nodule (HRC) Nontoxic uninodular goiter documented in this encounter Care Teams Claims Service Adjustor Relationship Specialty Start Date End Date Allyson Pool PA-C PCP - General Physician Gusset Edger 09/26/16 02/28/21 [address] [place] [id number] Erin ESCALANTE Tile Trimmer 10/24/17 BORIS Desir [phone] Fatou Haile Tile Trimmer 06/03/18 mauri garcia [facility] Laboratory Engineer 05/28/19 documented as of this encounter
--- OUTSIDE RECORDS SUMMARY | 2022-02-21 10:27 | XMS_ITS | Encounter Summary ---
:1935 Author Organization [facility] Address [address] [place] [address] Care Team Providers Name Role Phone Stephanie Pool PA-C Primary Care Provider Reason for Visit Reason Onset Date Comments Refill 12/15/2018 amLODIPine (NORVASC) 5 MG tablet Encounter Details Date Type Department Care Team Description 12/15/2018 Refill [facility] Stephanie Pool PA-C Refill (amLODIPine Medicine [address] [facility] (NORVASC) 5 MG tablet) [address] [place] [address] [place] [address] [phone] Social History Tobacco Use Types Packs/Day Years Used Date Smoking Tobacco: Never Smokeless Tobacco: Never Alcohol Use Standard Drinks/Week Comments Yes 0 (1 standard drink = 0.6 oz pure alcoho l) rare occasions (1 per month) Sex Assigned at Date Recorded Not on file documented as of this encounter Nursing Notes Interface, Out Surescripts Prov Query - 12/15/2018 3:46 PM CDT amLODIPine (NORVASC) 5 MG tablet Medication started: 09/29/2016 Last ordered by STEPHANIE POOL M: 06/26/2018 (172 days ago) QTY: 45, Refills: 3, Sig: take 0.5 tablets by mouth daily. (unchanged) -> The patient is requesting refills too soon, the current prescription is due to run out on 06/21/2019. -> Refill x 9 months, qty: 45, refills: 2 (until due for an office visit) Last qualifying visit: 06/26/2018 (with STEPHANIE POOL) Next scheduled visit: None SBP: 110 mm Hg on 06/26/2018 DBP: 60 mm Hg on 06/26/2018 Powered by [employer], Reference: [id number], 12/15/2018 3:46:47 PM CDT, Pool: [facility] IMED REFILL ([id number]) documented in this encounter Plan of Treatment Not on filedocumented as of this encounter Visit Diagnoses Diagnosis Essential hypertension (HRC) Unspecified essential hypertension documented in this encounter Care Teams Felt Hanger Relationship Specialty Start Date End Date Stephanie Pool PA-C PCP - General Physician Certified Alcohol Drug Counselor 09/26/16 02/28/21 [address] [place] [id number] Erin ESCALANTE Timber Watchman 10/24/17 B[place]IS [place] [phone] Fatou Haile Timber Watchman 06/03/18 documented as of this encounter
--- OUTSIDE RECORDS SUMMARY | 2022-02-21 10:27 | XMS_ITS | Encounter Summary ---
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 FREE LIGHT CHAINS, Routine 06/17/2019 9:52 Monoclonal gammopat hy Results for this SERUM AM MECHANICAL DEVELOPMENT ENGINEER present on serum procedure a re in protein electrophoresis the results section. LIPID PANEL AND Routine 06/17/2019 9:52 Hyperlipidemia, Result s for this DIRECT LDL(IF AM MECHANICAL DEVELOPMENT ENGINEER unspecified procedure are in NEEDED) hyperlipidemia type the resu lts section. VITAMIN D Routine 06/17/2019 9:52 Vitamin D deficiency Resu lts for this 25-HYDROXY, TOTAL AM MECHANICAL DEVELOPMENT ENGINEER procedure are in the results section. COMPLETE BLOOD Routine 06/17/2019 9:52 Screening for Results f or this COUNT-W/DIFF AM MECHANICAL DEVELOPMENT ENGINEER deficiency anemia procedure are in the results section. LIVER PANEL(HEPATIC Routine 06/17/2019 9:52 Monoclonal gammopa thy Results for this FUNCTION PANEL) AM MECHANICAL DEVELOPMENT ENGINEER present on serum procedur e are in protein electrophoresis the results section. ELP, CASCADE, SERUM Routine 06/17/2019 9:52 Monoclonal gammopa thy Results for this AM MECHANICAL DEVELOPMENT ENGINEER present on serum procedure a re in protein electrophoresis the results section. BASIC METABOLIC Routine 06/17/2019 9:52 Essential hypertension Results for this PANEL AM MECHANICAL DEVELOPMENT ENGINEER procedure are i n the results section. TSH, SENSITIVE (WITH Routine 06/17/2019 9:52 Thyroid nodule Re sults for this REFLEX) AM MECHANICAL DEVELOPMENT ENGINEER procedure are i n the results section. documented in this encounter Results Complete Blood Count-W/Diff (06/17/2019 9:52 AM MECHANICAL DEVELOPMENT ENGINEER) P athologist Signature WBC 5.7 3.5 - 10.5 06/17/2019 [facility] x10(9)/L 9:59 AM MECHANICAL DEVELOPMENT ENGINEER LABORATORY RBC 4.74 3.90 - 06/17/2019 [place] 5.03 9:59 AM MECHANICAL DEVELOPMENT ENGINEER LABORATORY x10(12)/L Hemoglobin 14.5 12.0 - 06/17/2019 [place] 15.5 g/dL 9:59 AM MECHANICAL DEVELOPMENT ENGINEER LABORATORY HCT 43.8 34.9 - 06/17/2019 [place] 44.5 % 9:59 AM MECHANICAL DEVELOPMENT ENGINEER LABORATORY MCV 92.4 80.0 - 06/17/2019 [place] 100.0 fL 9:59 AM MECHANICAL DEVELOPMENT ENGINEER LABORATORY MCH 30.6 27.6 - 06/17/2019 [place] 33.3 pg 9:59 AM MECHANICAL DEVELOPMENT ENGINEER LABORATORY MCHC 33.1 31.5 - 06/17/2019 [place] 35.2 g/dL 9:59 AM MECHANICAL DEVELOPMENT ENGINEER LABORATORY RDW 13.7 11.9 - 06/17/2019 [place] 15.5 % 9:59 AM MECHANICAL DEVELOPMENT ENGINEER LAB[facility]ATORY Platelets 161 150 - 450 06/17/2019 [place] x10(9)/L 9:59 AM MECHANICAL DEVELOPMENT ENGINEER LAB[facility]ATORY Automated NRBC 0 <=0 /100 06/17/2019 [place] WBC 9:59 AM MECHANICAL DEVELOPMENT ENGINEER LABORATORY Neutrophil 3.0 1.7 - 7.0 06/17/2019 [place] Absolute 10(9)/L 9:59 AM MECHANICAL DEVELOPMENT ENGINEER LAB[facility]ATORY Lymphocyte 1.9 1.0 - 4.8 06/17/2019 [place] Absolute 10(9)/L 9:59 AM MECHANICAL DEVELOPMENT ENGINEER LABORATORY Monocytes 0.5 0.2 - 0.9 06/17/2019 [place] Absolute 10(9)/L 9:59 AM MECHANICAL DEVELOPMENT ENGINEER LABORATORY Eosinophil 0.2 0.0 - 0.5 06/17/2019 [place] Absolute 10(9)/L 9:59 AM MECHANICAL DEVELOPMENT ENGINEER LAB[facility]ATORY Basophil 0.0 0.0 - 0.3 06/17/2019 [place] Absolute 10(9)/L 9:59 AM MECHANICAL DEVELOPMENT ENGINEER LABORATORY Immature Gran % 0.2 0.0 - 0.5 06/17/2019 [place] % 9:59 AM MECHANICAL DEVELOPMENT ENGINEER LABORATORY Specimen Anatomical Collection Method / Collection Time Recei miladis Time (Source) Location / Volume Laterality Blood Venipuncture / 06/17/2019 9:52 06/17/2019 9:52 Unknown AM MECHANICAL DEVELOPMENT ENGINEER AM MECHANICAL DEVELOPMENT ENGINEER Allyson Pool PA-C LAB_1 Performing Organization Address City/State/[facility] Code Phon e Number [facility] [address] [place] [address] Liver Panel(Hepatic Function Panel) (06/17/2019 9:52 AM MECHANICAL DEVELOPMENT ENGINEER) P athologist Signature Alkaline 47 40 - 150 06/17/2019 [place] Phosphatase U/L 10:27 AM MECHANICAL DEVELOPMENT ENGINEER LABORATORY Bilirubin, Total 1.1 0.2 - 1.2 06/17/2019 [place] mg/dL 10:27 AM MECHANICAL DEVELOPMENT ENGINEER LABORATORY Bilirubin, 0.4 0.0 - 0.5 06/17/2019 [place] Direct mg/dL 10:27 AM MECHANICAL DEVELOPMENT ENGINEER LABORATORY AST (SGOT) 21 10 - 40 06/17/2019 [place] U/L 10:27 AM MECHANICAL DEVELOPMENT ENGINEER LABORATORY ALT (SGPT) 12 0 - 55 U/L 06/17/2019 [facility] 10:27 AM MECHANICAL DEVELOPMENT ENGINEER LABORATORY Protein, Total 7.1 6.4 - 8.3 06/17/2019 [facility] g/dL 10:27 AM MECHANICAL DEVELOPMENT ENGINEER LABORATORY Albumin 3.7 3.5 - 5.0 06/17/2019 [place] g/dL 10:27 AM MECHANICAL DEVELOPMENT ENGINEER LABORATORY Specimen Anatomical Collection Method / Collection Time Recei miladis Time (Source) Location / Volume Laterality Blood Venipuncture / 06/17/2019 9:52 06/17/2019 9:52 Unknown AM MECHANICAL DEVELOPMENT ENGINEER AM MECHANICAL DEVELOPMENT ENGINEER Allyson Pool PA-C LAB_1 Performing Organization Address City/[facility]/ZIP Code Phon e Number [facility] [address] [place] [address] (ABNORMAL) Free Light Chains, Serum (06/17/2019 9:52 AM MECHANICAL DEVELOPMENT ENGINEER) [facility] gist Method Time Signature [place] Free 2.80 (H) 0.33 - 06/18/2019 [facility] Light Chains 1.94 9:09 AM MECHANICAL DEVELOPMENT ENGINEER C[facility]AL [facility] mg/dL Lambda Free 1.68 0.57 - 06/18/2019 [facility] Light Chains 2.63 9:09 AM MECHANICAL DEVELOPMENT ENGINEER [facility] mg/dL [place]/Lambda 1.67 (H) 0.26 - 06/18/2019 [facility] Ratio 1.65 9:09 AM MECHANICAL DEVELOPMENT ENGINEER [facility] Specimen Anatomical Collection Method / Collection Time Recei miladis Time (Source) Location / Volume Laterality Blood Venipuncture / 06/17/2019 9:52 06/17/2019 9:52 Unknown AM MECHANICAL DEVELOPMENT ENGINEER AM MECHANICAL DEVELOPMENT ENGINEER Allyson Pool PA-C LAB_1 Performing Organization Address City/[facility]/ZIP Code Phon e Number [facility] [address] [address] (ABNORMAL) Electrophoresis [place] To ALEKSEY,Serum (06/17/2019 9:52 AM MECHANICAL DEVELOPMENT ENGINEER) [facility] gist Method Time Signature Total Protein 6.8 6.4 - 8.3 06/18/2019 [facility] g/dL 2:48 PM MECHANICAL DEVELOPMENT ENGINEER [facility] Albumin 3.7 3.4 - 4.8 06/18/2019 [facility] g/dL 2:48 PM MECHANICAL DEVELOPMENT ENGINEER [facility] Alpha 1 0.3 0.2 - 0.5 06/18/2019 [facility] g/dL 2:48 PM MECHANICAL DEVELOPMENT ENGINEER [facility] Alpha 2 0.9 0.5 - 1.1 06/18/2019 [facility] g/dL 2:48 PM MECHANICAL DEVELOPMENT ENGINEER [facility] Beta 0.7 0.6 - 1.1 06/18/2019 [facility] g/dL 2:48 PM MECHANICAL DEVELOPMENT ENGINEER [facility] Gamma 1.1 0.7 - 1.6 06/18/2019 [facility] g/dL 2:48 PM MECHANICAL DEVELOPMENT ENGINEER [facility] Monoclonal 0.5 (H) <=0.0 06/18/2019 [facility] g/dL 2:48 PM MECHANICAL DEVELOPMENT ENGINEER [facility] Comment: IgG [place] Interpretation A monoclonal protein 06/18/2019 2:4 8 [facility] has been detected by PM MECHANICAL DEVELOPMENT ENGINEER CENTRAL L AB serum protein electrophoresis. Additional Testing Not indicated. 06/18/2019 2:48 [facility] PM MECHANICAL DEVELOPMENT ENGINEER [facility] Signed Out By [facility] 06/18/2019 2: 48 [facility] Laboratory PM MECHANICAL DEVELOPMENT ENGINEER [facility] Specimen Anatomical Collection Method / Collection Time Recei miladis Time (Source) Location / Volume Laterality Blood Venipuncture / 06/17/2019 9:52 06/17/2019 9:52 Unknown AM MECHANICAL DEVELOPMENT ENGINEER AM MECHANICAL DEVELOPMENT ENGINEER Allyson Pool PA-C LAB_1 Performing Organization Address City/State/ZIP Code Phon e Number [facility] [address] [address] Vitamin D 25-Hydroxy, Total (06/17/2019 9:52 AM MECHANICAL DEVELOPMENT ENGINEER) athologist Signature Vitamin D, 36 30 - 80 06/17/2019 [facility] 25-OH, Total ng/mL 3:39 PM MECHANICAL DEVELOPMENT ENGINEER LAB[facility]ATORY Specimen Anatomical Collection Method / Collection Time Recei miladis Time (Source) Location / Volume Laterality Blood Venipuncture / 06/17/2019 9:52 06/17/2019 9:52 Unknown AM MECHANICAL DEVELOPMENT ENGINEER AM MECHANICAL DEVELOPMENT ENGINEER Allyson Pool PA-C LAB_1 Performing Organization Address City/[facility]/ZIP [facility] Phon e Number [facility] [address] [place] [address] TSH with Free T4 (if TSH Abnormal) (06/17/2019 9:52 AM MECHANICAL DEVELOPMENT ENGINEER) athologist Signature TSH, Reflex 1.16 0.30 - 4.50 06/17/2019 [facility] uIU/mL 3:39 PM MECHANICAL DEVELOPMENT ENGINEER LAB[facility]ATORY Specimen Anatomical Collection Method / Collection Time Recei miladis Time (Source) Location / Volume Laterality Blood Venipuncture / 06/17/2019 9:52 06/17/2019 9:52 Unknown AM MECHANICAL DEVELOPMENT ENGINEER AM MECHANICAL DEVELOPMENT ENGINEER Narrative [facility] - 06/17/2019 3:39 P M MECHANICAL DEVELOPMENT ENGINEER Lab will automatically reflex to Free T4 when TSH results are <0.30 uIU/mL or >4.50 mIU/mL. Allyson Pool PA-C LAB_1 Performing Organization Address City/State/ZIP Code Phon e Number [facility] [address] [place] [address] Lipid Panel and Direct LDL(If Needed) (06/17/2019 9:52 AM MECHANICAL DEVELOPMENT ENGINEER) Analysis Performed At Patho logist Time Signature Cholesterol 141 0 - 199 06/17/2019 [facility] mg/dL 10:27 AM MECHANICAL DEVELOPMENT ENGINEER LABORATORY Triglyceride 77 <=149 06/17/2019 [facility] mg/dL 10:27 AM MECHANICAL DEVELOPMENT ENGINEER LAB[facility]ATORY HDL Cholesterol 62 >=40 mg/dL 06/17/2019 [facility] 10:27 AM MECHANICAL DEVELOPMENT ENGINEER LAB[facility] LDL, Calculated 64 <130 mg/dL 06/17/2019 [facility] 10:27 AM MECHANICAL DEVELOPMENT ENGINEER LAB[facility]ATORY Non HDL Chol, 79 mg/dL 06/17/2019 [facility] Calculated 10:27 AM MECHANICAL DEVELOPMENT ENGINEER LABORATORY Cholesterol/HDL 2.3 06/17/2019 [facility] Ratio 10:27 AM MECHANICAL DEVELOPMENT ENGINEER LABORATORY Hours Fasting 12 06/17/2019 [facility] 10:27 AM MECHANICAL DEVELOPMENT ENGINEER LABORATORY Specimen Anatomical Collection Method / Collection Time Recei miladis Time (Source) Location / Volume Laterality Blood Venipuncture / 06/17/2019 9:52 06/17/2019 9:52 Unknown AM MECHANICAL DEVELOPMENT ENGINEER AM MECHANICAL DEVELOPMENT ENGINEER Allyson Pool PA-C LAB_1 Performing Organization Address City/[facility] Phon e Number [facility] [address] [place] [address] (ABNORMAL) Basic Metabolic Panel (06/17/2019 9:52 AM MECHANICAL DEVELOPMENT ENGINEER) P athologist Signature Sodium 142 136 - 145 06/17/2019 [facility] mmol/L 10:27 AM MECHANICAL DEVELOPMENT ENGINEER LABORATORY Potassium 3.8 3.5 - 5.1 06/17/2019 [facility] mmol/L 10:27 AM MECHANICAL DEVELOPMENT ENGINEER LABORATORY Chloride 105 98 - 109 06/17/2019 [facility] mmol/L 10:27 AM MECHANICAL DEVELOPMENT ENGINEER LAB[facility]ATORY CO2 28 20 - 29 06/17/2019 [facility] mmol/L 10:27 AM MECHANICAL DEVELOPMENT ENGINEER LABORATORY Anion Gap 9 7 - 16 06/17/2019 [facility] mmol/L 10:27 AM MECHANICAL DEVELOPMENT ENGINEER LABORATORY Calcium 9.2 8.4 - 10.4 06/17/2019 [facility] mg/dL 10:27 AM MECHANICAL DEVELOPMENT ENGINEER LABORATORY BUN <10 7 - 26 06/17/2019 [facility] mg/dL 10:27 AM MECHANICAL DEVELOPMENT ENGINEER LABORATORY Creatinine 0.90 0.55 - 06/17/2019 [facility] 1.02 mg/dL 10:27 AM MECHANICAL DEVELOPMENT ENGINEER LABORATORY GFR, Estimated 60 (L) >60 06/17/2019 [facility] mL/min/1.7 10:27 AM MECHANICAL DEVELOPMENT ENGINEER LABORATORY 3m2 GFR, Est If >60 >60 06/17/2019 [facility] mL/min/1.7 10:27 AM MECHANICAL DEVELOPMENT ENGINEER LABORATORY [place] 3m2 Glucose 91 70 - 100 06/17/2019 [facility] mg/dL 10:27 AM MECHANICAL DEVELOPMENT ENGINEER LABORATORY Comment: The given reference range is fo r the fasting state. Non-fasting reference range for glucose is 70 - 180 mg/dL. Hours Fasting 12 06/17/2019 10:27 AM MECHANICAL DEVELOPMENT ENGINEER [facility] Specimen Anatomical Collection Method / Collection Time Recei miladis Time (Source) Location / Volume Laterality Blood Venipuncture / 06/17/2019 9:52 06/17/2019 9:52 Unknown AM MECHANICAL DEVELOPMENT ENGINEER AM MECHANICAL DEVELOPMENT ENGINEER Allyson Pool PA-C LAB_1 Performing Organization Address City/State/ZIP Code Phon e Number [facility] [address] [place] [address] documented in this encounter Visit Diagnoses Diagnosis Essential hypertension (HRC) Unspecified essential hypertension Screening for deficiency anemia Screening for other and unspecified defi ciency anemia Hyperlipidemia, unspecified hyperlipidem ia type (HRC) Thyroid nodule (HRC) Nontoxic uninodular goiter Vitamin D deficiency (HRC) Unspecified vitamin D deficiency 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
--- OUTSIDE RECORDS SUMMARY | 2022-02-21 10:27 | XMS_ITS | Encounter Summary ---
:1935 Author Organization [email or web address] Address [address], [place] [address] Care Team Providers Name Role Phone Allyson Pool PA-C Primary Care Provider Reason for Visit Reason Comments Refill Encounter Details Date Type Department Care Team Description 02/16/2019 Refill [facility] [address] Norberto Aldridge MD Refill Neurology [address] [place] [address] [place] [phone] (Wo rk) Social History Tobacco Use Types [...] on filedocumented in this encounter Care Teams Car Racer Relationship Specialty Start Date End Date Allyson Pool PA-C PCP - General Physician Cougar Hunter 09/26/16 02/28/[address] [place] [address] Erin ESCALANTE Coater Helper 10/24/17 BORIS Desir [phone] Fatou Haile Coater Helper 06/03/18 documented as of this encounter
--- OUTSIDE RECORDS SUMMARY | 2022-02-21 10:27 | XMS_ITS | Encounter Summary ---
:1935 Author Organization [facility] Address [address] [place] [address] [place] [address] Care Team Providers Name Role Phone Allyson Pool PA-C Primary Care Provider Encounter Details Date Type Department Care Team Description 04/21/2019 Notes/Orders [facility] hospital Cancer Care Margarita leger at [facility] MILADIS Wilson ra Oncology [address] [facility] [id number] [place] [phone] (Wo rk) Social History Tobacco Use Types [...] on filedocumented in this encounter Care Teams Boilermaker'S Assistant Relationship Specialty Start Date End Date Allyson Pool PA-C PCP - General Physician Marine Electronics Technician 09/26/16 02/28/[address] [place] [address] Erin ESCALANTE Rn Relief Charge 10/24/17 BORIS Desir [phone] Fatou Haile Rn Relief Charge 06/03/18 documented as of this encounter
--- OUTSIDE RECORDS SUMMARY | 2022-02-21 10:27 | XMS_ITS | Encounter Summary ---
:1935 Author Organization [employer] Address [address] [address] Care Team Providers Name Role Phone Allyson Pool PA-C Primary Care Provider Reason for Visit Reason Comments Refill Encounter Details Date Type Department Care Team Description 09/06/2019 Refill [facility] 3931 Norberto Aldridge MD Refill Neurology 3931 [facility] [address] [place] [address] [phone] (Wo rk) Social History Tobacco Use Types Packs/Day Years Used Date Smoking Tobacco: Never Smokeless Tobacco: Never Alcohol Use Standard Drinks/Week Comments Yes 0 (1 standard drink = 0.6 oz pure alcoho l) rare occasions (1 per month) Sex Assigned at Date Recorded Not on file documented as of this encounter Nursing Notes Alice Marquez RN - 09/07/2019 11:01 AM CDT Last visit 07/18/2018; Called the patient to schedule a follow up visit; LVM with a call back number for scheduling; Letter sent as an appointment reminder; 1 month prescription approved; documented in this encounter Plan of Treatment Not on filedocumented as of this encounter Visit Diagnoses Not on filedocumented in this encounter Care Teams Human Performance Technologist Relationship Specialty Start Date End Date Allyson Pool PA-C PCP - General Physician Home Health Provider 09/26/16 02/28/21 [address] [place] [address] Erin Meza [facility] Dump Operator 10/24/17 BORIS Desir [phone] Fatou Haile Dump Operator 06/03/18 mauri garcia [facility] Do All Operator 05/28/19 documented as of this encounter
--- OUTSIDE RECORDS SUMMARY | 2022-02-21 10:27 | XMS_ITS | Encounter Summary ---
:1935 Author Organization [facility] Address [address], [place] [address] Care Team Providers Name Role Phone Allyson Pool PA-C Primary Care Provider Reason for Visit Reason Comments Refill Encounter Details Date Type Department Care Team Description 04/05/2019 Refill Specialty Center 3931 Norberto Aldridge MD Refill Neurology [address] [facility] [address] [place] [phone] (Wo rk) Social History Tobacco Use Types [...] on filedocumented in this encounter Care Teams Slab Grinder Relationship Specialty Start Date End Date Allyson Pool PA-C PCP - General Physician Fabricator Assembler Metal Products 09/26/16 02/28/[address] [place] [address] Erin ESCALANTE Post Commander 10/24/17 BORIS Desir [phone] Fatou Haile Post Commander 06/03/18 documented as of this encounter
--- OUTSIDE RECORDS SUMMARY | 2022-02-21 10:27 | XMS_ITS | Encounter Summary ---
:1935 Author Organization [employer] Address [address] [place] [address] Care Team Providers Name Role Phone Stephanie Pool PA-C Primary Care Provider Reason for Visit Reason Onset Date Comments Refill 07/21/2020 aspirin EC 81 MG ent jesenia coated tablet Encounter Details Date Type Department Care Team Description 07/21/2020 Refill [facility] Stephanie Pool PA-C Refill (aspirin EC [address] MG enteric coated [address] [place] [address] tablet) [place] [address] [phone] Social History Tobacco Use Types Packs/Day Years Used Date Smoking Tobacco: Never Smokeless Tobacco: Never Alcohol Use Standard Drinks/Week Comments Yes 0 (1 standard drink = 0.6 oz pure alcoho l) rare occasions (1 per month) Sex Assigned at Date Recorded Not on file documented as of this encounter Nursing Notes Tom Crane CMA - 07/25/2020 5:44 PM CDT Clinician Action: New Order Medication Clinician Next Step: Route to [facility] to follow up Specific Request(s): 1. Refill request for Rx Aspirin EC 81mg. DOD please review and advise. Cindy Harrell RN - 07/25/2020 9:26 AM CDT Further Assistance Needed on Refill from Clinician RN reviewed. Signed order needed. Previous medication order has . and Requested medication needs an order signed by an authorized prescriber. Last qualifying visit: 04/12/2020 Review pended order for accuracy and sign if appropriate and Document if appointment is needed for further refills Requested Prescriptions Pending Prescriptions Disp Refills ??? aspirin EC 81 MG enteric coated tablet Sig: Take by mouth. Interface, Out Garmentory Query - 07/21/2020 11:47 AM CST aspirin EC 81 MG enteric coated tablet -> The requested strength (81 mg delayed release oral tablet) has not been ordered recently. The patient is taking 81 mg oral tablet as of 06/08/2019. -> Refill x 9 months (until due for an office visit) -> Calculate the quantity and number of refills manually. Last qualifying visit: 04/12/2020 (with STEPHANIE POOL) Next scheduled visit: None Powered by [facility], Reference: [id number], 07/21/2020 11:47:25 AM Gary RIDER: LIBRADO HERNANDEZ REFILL([id number]) documented in this encounter Plan of Treatment Not on filedocumented as of this encounter Visit Diagnoses Not on filedocumented in this encounter Care Teams Surgeon Chief Relationship Specialty Start Date End Date Stephanie Pool PA-C PCP - General Physician Concrete Layer 09/26/16 02/28/[address] [place] [address] Erin PRADOW Sales Representative Supervisor 10/24/17 BORIS Desir [phone] Fatou Haile Sales Representative Supervisor 06/03/18 mauri PRADOW Director Payment 05/28/19 documented as of this encounter
--- OUTSIDE RECORDS SUMMARY | 2022-02-21 10:27 | XMS_ITS | Encounter Summary ---
:1935 Author Organization [employer] Address [address] [place] [address] Care Team Providers Name Role Phone Allyson Pool PA-C Primary Care Provider Reason for Visit Reason Comments [facility] Encounter Details Date Type Department Care Team Description 04/01/2020 Telephone [facility] Allyson eVrma PA-C [facility] [address] [facility] [address] [place] [address] [place], [place] [address] (Wo rk) Social History Tobacco Use Types Packs/Day Years Used Date Smoking Tobacco: Never Smokeless Tobacco: Never Alcohol Use Standard Drinks/Week Comments Yes 0 (1 standard drink = 0.6 oz pure alcoho l) rare occasions (1 per month) Sex Assigned at Date Recorded Not on file documented as of this encounter Nursing Notes Quyen Archer LPN - 04/01/2020 2:31 PM CST Spoke with patient's daughter and verbalized understanding in regards to the message below. Daughtersaid, she's better. Patient's daughter requested an appointment with her PCP. Assisted in scheduling an appointment on 04/12/2020 @ 12:00pm. IDE EVENT SALES SPECIALIST Allyson Pool PA-C - 04/01/2020 1:53 PM CST Patient needs an apt. Has not been seen since May and would like to rule out other causes. Unfortunately I am extremely booked as I am leaving clinic soon. Please find next available apt. On Saturday. If highly concerning should go to UC or ER. Could consider trazodone at night but since I have not seen her condition in quite some time would need an apt to determine if this is appropriate. Allyson Pool PA-C 1:55 PM 04/01/2020 IDE EVENT SALES SPECIALIST Allyson Pool PA-C - 04/01/2020 12:06 PM CST Will need to be assessed at least through a phone visit. I have not seen since May 2019. 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 Can you see if there is any openings today. I am completely booked. Mimi Rogers RN - 04/01/2020 9:50 AM CST Clinician Action: Input needed regarding ongoing symptoms Clinician Next Step: Route to [facility] to follow up and Patient IS expecting a call back fromcare team Specific Request(s): 1. Daughter calling; pt's combativeness and paranoia has worsened significantly over the past coupleof weeks. Pt's is in hospital which is also making things worse. Any dosage/medication change PCP can recommend? Caroline Jama V - 04/01/2020 9:37 AM CST Symptoms Describe your symptoms (if pain, include location): Daughter reports patient has been very combatant lately. Seems to be escalating. When did they start? Quite a while Additional comments (related to the above concern): [...] Triage Pool (only transfer if caller insists) IDE EVENT SALES SPECIALIST documented in this encounter Plan of Treatment Not on filedocumented as of this encounter Visit Diagnoses Not on filedocumented in this encounter Care Teams Chain Repairer Relationship Specialty Start Date End Date Allyson Pool PA-C PCP - General Physician Layboy Tender 09/26/16 02/28/21 [address] [place] [address] Erin Meza [facility] Parlor Chaperone 10/24/17 BORIS Desir [phone] Fatou Haile Parlor Chaperone 06/03/18 mauri garcia [facility] Customer Service Cashier 05/28/19 documented as of this encounter
--- OUTSIDE RECORDS SUMMARY | 2022-02-21 10:27 | XMS_ITS | Encounter Summary ---
:1935 Author Organization [employer] Address [address] [place] [address] Care Team Providers Name Role Phone Allyson Pool PA-C Primary Care Provider Reason for Visit Reason Comments MEDICATION CHECK Encounter Details Date Type Department Care Team Description 06/24/2020 Telephone [facility] Surya Aldridge MD MEDICATION CHECK [address] [address] [facility] [phone] [place] [address] (Wo rk) Social History Tobacco Use Types Packs/Day Years Used Date Smoking Tobacco: Never Smokeless Tobacco: Never Alcohol Use Standard Drinks/Week Comments Yes 0 (1 standard drink = 0.6 oz pure alcoho l) rare occasions (1 per month) Sex Assigned at Date Recorded Not on file documented as of this encounter Nursing Notes Surya Vinson MD - 06/24/2020 12:13 PM CST Gomez Lira, I am not really concerned but per protocol let's check a creatinine level. I did place an order in the system. Please let the patient know. Thank you Soraya Schultz RN - 06/24/2020 10:[address] Vinson, Patient is scheduled for Reclast on 06/27/2020. New treatment. Cr was last done 06/2019. 0.90 Does she need an updated Cr prior to infusion? Thank you! Soryaa Orona, RN 10:57 AM 06/24/2020 BORE OPERATOR documented in this encounter Plan of Treatment Not on filedocumented as of this encounter Results CREAT - Creatinine (07/08/2020 9:37 AM GANG BORE OPERATOR) P athologist Signature Creatinine 0.80 0.55 - 07/08/2020 [place] 1.02 mg/dL 10:54 AM [facility] GFR, Estimated >60 >60 07/08/2020 [place] mL/min/1.7 10:54 AM [facility] 3m2 Specimen Anatomical Collection Method / Collection Time Recei miladis Time (Source) Location / Volume Laterality Blood Venipuncture / 07/08/2020 9:37 07/08/2020 9:51 Unknown AM GANG BORE OPERATOR AM GANG BORE OPERATOR Surya Vinson MD LAB_1 Performing Organization Address City/State/ZIP Code Phon e Number [facility] [address] [place] [address] documented in this encounter Visit Diagnoses Diagnosis Age-related osteoporosis without current pathological fracture (HRC) - Primary Senile osteoporosis documented in this encounter Care Teams Health Safety Specialist Relationship Specialty Start Date End Date Allyson Pool PA-C PCP - General Physician Gas Appliance Installer 09/26/16 02/28/[address] [place] [address] Erin ESCALANTE Resident Assistant Cna 10/24/17 BORIS Desir [phone] Fatou Haile Resident Assistant Cna 06/03/18 mauri ESCALANTE Drawbench Operator Helper 05/28/19 documented as of this encounter
--- OUTSIDE RECORDS SUMMARY | 2022-02-21 10:27 | XMS_ITS | Encounter Summary ---
:1935 Author Organization [employer] Address [address] [place] [address] Care Team Providers Name Role Phone Stephanie Pool PA-C Primary Care Provider Encounter Details Date Type Department Care Team Description 08/24/2018 Refill Order [facility] Stephanie Pool PA-C [place] [id number] [facility] [address] [place] [address] [phone] Social History Tobacco Use Types Packs/Day Years Used Date Smoking Tobacco: Never Smokeless Tobacco: Never Alcohol Use Standard Drinks/Week Comments Yes 0 (1 standard drink = 0.6 oz pure alcoho l) rare occasions (1 per month) Sex Assigned at Date Recorded Not on file documented as of this encounter Nursing Notes Kenzie James - 08/25/2018 11:36 AM CDT Labs to be addressed at future visit. Interface, Out Surescripts Prov Query - 08/24/2018 3:27 AM CDT SCHEDULE THE FOLLOWING: - NA BY: Now (Due as of 07/03/2018 for triamterene-hydrochlorothiazide (MAXZIDE- 25) 37.5-25 MG tablet) - K BY: Now (Due as of 07/04/2018 for triamterene-hydrochlorothiazide (MAXZIDE- 25) 37.5-25 MG tablet) - LAST QUALIFYING VISIT WITH STEPHANIE POOL: 06/26/2018 - NEXT SCHEDULED VISIT: None - NEXT LAB APPOINTMENT: None Powered by [employer], Reference: [id number], 08/24/2018 3:27:11 AM CDT, Pool: LIBRADO CHÁVEZED REFILL ([id number]) documented in this encounter Plan of Treatment Not on filedocumented as of this encounter Visit Diagnoses Diagnosis Encounter for long-term (current) use of medications - Primary Encounter for long-term (current) use of other medications documented in this encounter Care Teams Winder Operator Relationship Specialty Start Date End Date Stephanie Pool PAAlexaC PCP - General Physician Interface Designer 09/26/16 02/28/[address] [place] [address] Erin ESCALANTE Python Web Developer 10/24/17 BORIS Desir [phone] Fatou Haile Python Web Developer 06/03/18 documented as of this encounter
--- OUTSIDE RECORDS SUMMARY | 2022-02-21 10:27 | XMS_ITS | Encounter Summary ---
:1935 Author Organization [employer] Address [address] [place] [address] Care Team Providers Name Role Phone Allyson Pool PA-C Primary Care Provider Reason for Referral Consult/Transfer Care (Routine) - Closed Specialty Diagnoses / Procedures Referred By Contact Refer red To Contact Diagnoses Osteoporosis, unspecified osteoporosis type, unspecified pathological fracture presence (HRC) Allyson Pool PA-C [address] [place] [address] Referral ID Status Reason Start Date Expiration Date Visits Requ ested Visits Authorized [id number] Closed 04/12/2020 07/12/2021 1 1 Scheduling Instructions Your provider has recommended an appoint ment with [facility]. You may call [phone] to schedule your appoi ntment. We suggest you call your health insurance company about your coverage an d benefits for this appointment. OLOGY TECH Reason for Visit Reason Comments Follow-up Encounter Details Date Type Department Care Team Description 04/12/2020 Office Visit [facility] Allyson Pool PA-C Osteoporosis, unspecified osteoporosis t ype, unspecified pathological fracture presence (Primary Dx); Medicine [facility] Essential hypertension; [address] [place], [place] Vitamin D deficiency; [place] [address] Old myocardial infarction; [phone] Hyperlipidemia, unspecified hyperlipidemia type; (Work) Moderate episode of recurrent major depr essive disorder ([facility]) Social History Tobacco Use Types Packs/Day Years Used Date Smoking Tobacco: Never Smokeless Tobacco: Never Alcohol Use Standard Drinks/Week Comments Yes 0 (1 standard drink = 0.6 oz pure alcoho l) rare occasions (1 per month) Sex Assigned at Date Recorded Not on file documented as of this encounter Last Filed Vital Signs Vital Sign Reading Time Taken Comments Blood Pressure 132/74 04/12/2020 12:05 PM HISTOLOGY TECH Pulse 62 04/12/2020 12:05 PM HISTOLOGY TECH Temperature - - Respiratory Rate - - Oxygen Saturation - - Inhaled Oxygen Concentration - - Weight 86.6 kg (191 lb) 04/12/2020 12:05 PM HISTOLOGY TECH Height - - Body Mass Index 34.38 06/08/2019 3:33 PM HISTOLOGY TECH documented in this encounter Patient Instructions Patient InstructionsAllyson Pool PA-C - 04/12/2020 12:00 PM CST Images from the original note were not included. Increase the effexor to 75 mg daily. Start the calcium pill twice a day. Follow up with Dr. Thorpe, Dr. Campos, or Quyen Mahan in the next 1 month. Osteoporosis: Care Instructions Your Care Instructions Osteoporosis causes bones to become thin and weak. It is much more common in women than in men. Osteoporosis may be very advanced before you know you have it. Sometimes the first sign is a broken bone in the hip, spine, or wrist or sudden pain in your middle or lower back. Follow-up care is a flores part of your treatment and safety. Be sure to make and go to all appointments, and call your doctor if you are having problems. It's also a good idea to know your test results and keep a list of the medicines you take. How can you care for yourself at home? ?? Your doctor may prescribe a bisphosphonate, such as risedronate (Actonel) or alendronate (Fosamax), for osteoporosis. If you are taking one of these medicines by mouth: ? Take your medicine with a full glass of water when you first get up in the morning. ? Do not lie down, eat, drink a beverage, or take any other medicine for at least 30 minutes after taking the drug. This helps prevent stomach problems. ? Do not take your medicine late in the day if you forgot to take it in the morning. Skip it, and take the usual dose the next morning. ? If you have side effects, tell your doctor. He or she may prescribe another medicine. ?? Get enough calcium and vitamin D. The [employer] of [employer] recommends adults younger than age 51need 1,000 mg of calcium and 600 IU of vitamin D each day. Women ages 51 to 70 need 1,200 mg of calcium and 600 IU of vitamin D each day. Men ages 51 to 70 need 1,000 mg of calcium and 600 IU of vitamin D each day. Adults 71 and older need 1,200 mg of calcium and 800 IU of vitamin D each day. It's notclear if people who already have osteoporosis need more calcium and vitamin D than this. Talk to your doctor about what's right for you. ? Eat foods rich in calcium, like yogurt, cheese, milk, and dark green vegetables. This is a good way to get the calcium you need. You can get vitamin D from eggs, fatty fish, cereal, and milk. ? Ask your doctor if you need to take a calcium plus vitamin D supplement. You may be able to get enough calcium and vitamin D through your diet. Be careful with supplements. Adults ages 19 to 50 should not get more than 2,500 mg of calcium and 4,000 IU of vitamin D each day, whether it is from supplements and/or food. Adults ages 51 and older should not get more than 2,000 mg of calcium and 4,000 IUof vitamin D each day from supplements and/or food. ?? Limit alcohol to 2 drinks a day for men and 1 drink a day for women. Too much alcohol can cause health problems. ?? Do not smoke. Smoking puts you at a much higher risk for osteoporosis. If you need help quitting,talk to your doctor about stop-smoking programs and medicines. These can increase your chances of quitting for good. ?? Get regular bone-building exercise. Weight-bearing and resistance exercises keep bones healthy byworking the muscles and bones against gravity. Start out at an exercise level that feels right for you. Add a little at a time until you can do the following: ? Do 30 minutes of weight-bearing exercise on most days of the week. Walking, jogging, stair climbing, and dancing are good choices. ? Do resistance exercises with weights or elastic bands 2 to 3 days a week. ?? Reduce your risk of falls: ? Wear supportive shoes with low heels and nonslip soles. ? Use a cane or walker, if you need it. Use shower chairs and bath benches. Put in handrails on stairways, around your shower or tub area, and near the toilet. ? Keep stairs, porches, and walkways well lit. Use night-lights. ? Remove throw rugs and other objects that are in the way. ? Avoid icy, wet, or slippery surfaces. ? Keep a cordless phone and a flashlight with new batteries by your bed. When should you call for help? Watch closely for changes in your health, and be sure to contact your doctor if you have any problems. Where can you learn more? 1. Go to https://Crowdlinker/StoryWorth or PlayScape/Rush Points. 2. Enter K100 in the search box. Current as of: December 16, 2018?Content Version: 12.4 ?? [employer]. Care instructions adapted under license by your healthcare professional. If you have questions abouta medical condition or this instruction, always ask your healthcare professional. [employer] disclaims any warranty or liability for your use of this information. OLOGY TECH documented in this encounter Progress Notes Allyson Pool PA-C - 04/12/2020 12:00 PM CST Internal Medicine [facility] - Allyson Pool PA-C Fidelia Vyas 84 y.o. Female : 1935 [place] Date of Service: 04/12/2020 Chief Complaint: osteoporosis and dementia/depression Respite Care Provider Present: no HPI: Fidelia Vyas is a 84 y.o. female who presents with her daughter Onel. Recent DEXA showing osteoporosis. She takes vitamin D daily but does not take oral calcium supplement. She has no low impact fractures. She does have reflux issues. Also has dementia which may make oral bisphosphonate a bit more risky to use. She has dementia. On aricept. Her went into the hospital for a procedure and this triggered some behavioral disturbance. At night she has been getting down and saying bad things about herself like she is worthless. On effexor 37.5 mg which was great for her. Patient Active Problem List Diagnosis ??? Old [...] disease (HRC) ??? Incontinence ??? Osteoporosis (HRC) Social History: non-smoker Allergies: Atorvastatin and Morphine Outpatient Medications Prior to Visit Medication Sig Note Dispense Refill ??? aspirin 81 MG tablet Take 1 Tablet by mouth daily. Do not take for two weeks after surgery. Okayto resume on 07/24/2017 100 Tablet 3 ??? donepezil (ARICEPT) 10 MG tablet Take 1 Tablet by mouth daily. 90 Tablet 3 ??? nitroglycerin (NITROSTAT) 0.[address] 0.4 mg under tongue. 11/01/2016: Received from: [facility] Received Sig: Place 1 tablet (0.4 mg) under the tongue every 5 minutes as needed forchest pain ??? amLODIPine (NORVASC) 5 MG tablet Take 0.5 Tablets by mouth daily. 45 Tablet 3 ??? Cholecalciferol (VITAMIN D3) 25 MCG [...] max 3 tab 100 Tablet 11 ??? rosuvastatin (CRESTOR) 40 MG tablet Take 1 Tablet by mouth daily. 90 Tablet 3 ??? triamterene-hydrochlorothiazide (MAXZIDE-25) 37.5-25 MG tablet Take 0.5 Tablets by mouth daily. 45 Tablet 3 ??? venlafaxine (EFFEXORXR) 37.5 MG 24 hour release capsule Take 1 Capsule by mouth daily. 90 Capsule 3 No facility-administered medications prior to visit. Review of Systems: Pertinent review of systems is noted in the HPI. Physical Exam: BP 132/74 (BP Location: Right Arm, BP Cuff Size: Large) Pulse 62 Wt 86.6 kg (191 lb) BMI 34.38kg/m?? Constitutional: Well developed, Well nourished, No acute distress, Non-toxic appearance. Cardiovascular: Regular rate and rhythm. No murmur, rub, or gallop. Respiratory: No respiratory distress. Clear to auscultation bilaterally, no wheezes, rhonchi, or rales. Neuro: poor memory frequently asking he same questions Assessment and Plan: 1.) osteoporosis - will have her see rheumatology as she will not tolerate oral option - start calcium 600 mg twice a day, continue her vitamin D - weight bearing activity 2.) Dementia and depression - will have her increase effexor from 37.5mg to 75 mg daily. - monitor sx closely and monitor for side effects - f/u in 1 month with new provider for med check - I am leaving and she will need to est new PCP. She is aware of this and I wished her well. It has been a true pleasure. - Patient advised to follow up if symptoms do not improve, sooner if there are new or worsening symptoms. Allyson Pool PA-C 12:44 PM 04/12/2020 ICD-10-CM 1. Osteoporosis, unspecified osteoporosis type, unspecified pathological fracture presence (HRC) M81.0 Calcium 600-200 MG-UNIT Rheumatology Consult-Adults 2. Essential hypertension (HRC) I10 amLODIPine (NORVASC) 5 MG tablet labetalol (TRANDATE) 100 MG tablet triamterene-hydrochlorothiazide (MAXZIDE-25) 37.5-25 MG tablet 3. Vitamin D deficiency E55.9 Cholecalciferol (VITAMIN D3) 25 MCG (1000 UT) ta 4. Old myocardial infarction (HRC) I25.2 nitroglycerin (NITROSTAT) 0.4 MG sublingual tablet 5. Hyperlipidemia, unspecified hyperlipidemia type (HRC) E78.5 rosuvastatin (CRESTOR) 40 MG tablet 6. 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 venlafaxine (EFFEXORXR) 75 MG24 hour release capsule OLOGY TECH documented in this encounter Plan of Treatment Scheduled Referrals Name Type Priority Associated Diagnoses Order S chedule Rheumatology Referral Routine Osteoporosis, Ordered: 04/12 Consult-Adults unspecified osteoporosis type, unspecified pathological fracture presence documented as of this encounter Visit Diagnoses Diagnosis Osteoporosis, unspecified osteoporosis t ype, unspecified pathological fracture presence (HRC) - Primary Essential hypertension (HRC) Unspecified essential hypertension Vitamin D deficiency (HRC) Unspecified vitamin D deficiency Old myocardial infarction (HRC) Old myocardial infarction Hyperlipidemia, unspecified hyperlipidem ia type (HRC) Moderate episode of recurrent major depr essive disorder (HRC) documented in this encounter Care Teams Gasket Former Relationship Specialty Start Date End Date Allyson Pool PA-C PCP - General Physician Woods Superintendent 09/26/16 02/28/[address] [place] [address] Erin PRADOW Client Success Specialist 10/24/17 BORIS Desir [phone] Fatou Haile Client Success Specialist 06/03/18 mauri garcia [facility] Heating Mechanic 05/28/19 documented as of this encounter
--- OUTSIDE RECORDS SUMMARY | 2022-02-21 10:27 | XMS_ITS | Encounter Summary ---
:1935 Author Organization [employer] Address [address] [place] [address] Care Team Providers Name Role Phone Stephanie Pool PA-C Primary Care Provider Reason for Visit Reason Comments Refill labetalol (TRANDATE) 100 MG tablet [Pharmacy Med Name: LABETALOL 100MG TABLETS] Encounter Details Date Type Department Care Team Description 10/27/2020 Refill [facility] Jose Tang R efnigel (labetalol Medicine (TRANDATE) 100 MG tablet [address] [address] Shashi Avila [Pharmacy Med Name: [place] [address] 230 LABETALOL 100MG [phone] [place] [address] TABLETS]) [phone] (Wo rk) Social History Tobacco Use Types Packs/Day Years Used Date Smoking Tobacco: Never Smokeless Tobacco: Never Alcohol Use Standard Drinks/Week Comments Yes 0 (1 standard drink = 0.6 oz pure alcoho l) rare occasions (1 per month) Sex Assigned at Date Recorded Not on file documented as of this encounter Nursing Notes Ruben Medina RN - 10/30/2020 11:10 AM CDT Renewed medication per medication refill protocol. 90 day supply given per Emergency Refill Standing Order. Ruben Medina RN 10/30/2020, 11:10 AM Requested Prescriptions Pending Prescriptions Disp Refills ??? labetalol (TRANDATE) 100 MG tablet [Pharmacy Med Name: LABETALOL 100MG TABLETS] 135 Tablet 0 Sig: TAKE ONE-HALF BY MOUTH EVERY MORNING AND 1 TABLET EVERY EVENING Interface, Out AMENDIA Query - 10/27/2020 3:27 AM CDT labetalol (TRANDATE) 100 MG tablet [Pharmacy Med Name: LABETALOL 100MG TABLETS] Medication started: 09/29/2016 Last ordered by STEPHANIE POOL: 04/12/2020 (198 days ago) QTY: 135, Refills: 3, Sig: take one-half tablet by mouth every morning and 1 tablet every evening (changed) -> Unable to determine if sig has changed, review required. -> Refill x 6 months (until due for an office visit) -> Calculate the quantity and number of refills manually. Last qualifying visit: 04/12/2020 (with STEPHANIE POOL) Next scheduled visit: None Powered by [facility] by [employer], Reference: [id number], 10/27/2020 3:27:08 AM CDT, Pool:LIBRADO HERNANDEZ REFILL ([id number]) documented in this encounter Plan of Treatment Not on filedocumented as of this encounter Visit Diagnoses Diagnosis Essential hypertension (HRC) Unspecified essential hypertension documented in this encounter Care Teams Circular Knitter Relationship Specialty Start Date End Date Stephanie Pool PA-C PCP - General Physician Rivet Sticker 09/26/16 02/28/21 [address] [place] [address] Erin ESCALANTE Instructional Design Consultant 10/24/17 BORIS Desir [phone] Fatou Haile Instructional Design Consultant 06/03/18 mauri ESCALANTE Backbreaker 05/28/19 documented as of this encounter
--- OUTSIDE RECORDS SUMMARY | 2022-02-21 10:27 | XMS_ITS | Encounter Summary ---
:1935 Author Organization [facility] Address [address] [place] [address] Care Team Providers Name Role Phone Needs Pcp, Assignment Primary Care Provider Reason for Visit Reason Comments Refill venlafaxine (EFFEXORXR) 37.5 MG 24 hour release capsule [Pharmacy Med Name: VENLAFAXINE ER 37.5MG CAPSUL ES] Encounter Details Date Type Department Care Team Description 04/07/2021 Refill [place] Needs Pcp, A ssignment Refill (venlafaxine Medicine [facility] (EFFEXORXR) 37.5 MG 24 [address] [place], [place] [address] [Pharmacy Med Name: [phone] VENLAFAX INE ER 37.5MG CAPSULES]) Social History Tobacco Use Types Packs/Day Years Used Date Smoking Tobacco: Never Smokeless Tobacco: Never Alcohol Use Standard Drinks/Week Comments Yes 0 (1 standard drink = 0.6 oz pure alcoho l) rare occasions (1 per month) Sex Assigned at Date Recorded Not on file documented as of this encounter Nursing Notes Sea Crane RN - 04/10/2021 12:41 PM CST Requested Prescriptions Refused Prescriptions Disp Refills ??? venlafaxine (EFFEXORXR) 37.5 MG 24 hour release capsule [Pharmacy Med Name: VENLAFAXINE ER 37.5MG CAPSULES] 90 Capsule 0 Sig: TAKE 1 CAPSULE BY MOUTH DAILY Refused By: SEA CRANE Reason for Refusal: Med replaced or stopped PULLER Interface, Out Surescripts Prov Query - 04/07/2021 12:20 PM CST venlafaxine (EFFEXORXR) 37.5 MG 24 hour release capsule [Pharmacy Med Name: VENLAFAXINE ER 37.5MG CAPSULES] Medication started: 07/18/2018 Last ordered by STEPHANIE CHÁVEZ: 04/12/2020 (360 days ago) QTY: 90, Refills: 3, Sig: take 1 capsule by mouth daily. (unchanged) -> The requested strength (37.5 mg extended release oral capsule) was last ordered on 04/12/2020. The patient is taking 75 mg extended release oral capsule as of 04/12/2020. -> This medication was discontinued on 04/12/2020 by STEPHANIE CHÁVEZ. -> Refill x 3 months (until due for an office visit) Last qualifying visit: 04/12/2020 (with STEPHANIE CHÁVEZ) Next scheduled visit: None Cr: 0.8 mg/dL on 07/08/2020 Age: 85 Powered by [employer] by [employer], Reference: [id number], 04/07/2021 12:20:12 PM CROP PULLER, Pool: LIBRADO HERNANDEZ REFILL ([id number]) PULLER documented in this encounter Plan of Treatment Not on filedocumented as of this encounter Visit Diagnoses Not on filedocumented in this encounter Care Teams Crew Member Relationship Specialty Start Date End Date Needs Pcp, Assignment PCP - General 03/01/21 07/23/21 [place] [address] Erin ESCALANTE Automotive Mechanic 10/24/17 BORIS Desir [phone] Fatou Haile Automotive Mechanic 06/03/18 mauri ESCALANTE Laboratory Immunologist 05/28/19 documented as of this encounter
--- OUTSIDE RECORDS SUMMARY | 2022-02-21 10:28 | XMS_ITS | Encounter Summary ---
:1935 Author Organization [employer] Address [address] [place] [address] Care Team Providers Name Role Phone Allyson Pool PA-C Primary Care Provider Encounter Details Date Type Department Care Team Description 10/29/2017 Notes/Orders [facility] Marlys Barboza [id number] [place] [address] [facility] S [phone] [facility] [address] [address] (Wo rk) Social History Tobacco Use Types Packs/Day Years Used Date Smoking Tobacco: Never Smokeless Tobacco: Never Alcohol Use Standard Drinks/Week Comments Yes 0 (1 standard drink = 0.6 oz pure alcoho l) rare occasions (1 per month) Sex Assigned at Date Recorded Not on file documented as of this encounter Progress Notes Ginger Flores RN - 10/29/2017 10:50 AM CDT Addended by: GINGER FLORES on: 12/25/2019 10:58 AM Modules accepted: Orders documented in this encounter Plan of Treatment Not on filedocumented as of this encounter Visit Diagnoses Not on filedocumented in this encounter Care Teams Cable Layer Relationship Specialty Start Date End Date Allyson Pool PA-C PCP - General Physician Dialysis Social Worker 09/26/16 02/28/21 [address] [place] [address] Erin ESCALANTE Utility Bag Assembler 10/24/17 BORIS Desir [phone] Fatou Haile Utility Bag Assembler 06/03/18 mauri ESCALANTE Buckle Stringer 05/28/19 documented as of this encounter
--- OUTSIDE RECORDS SUMMARY | 2022-02-21 10:28 | XMS_ITS | Encounter Summary ---
:1935 Author Organization [employer] Address [address] [place] [address] Care Team Providers Name Role Phone Allyson Pool PA-C Primary Care Provider Reason for Visit Reason Comments LETTER NEEDED Encounter Details Date Type Department Care Team Description 10/24/2017 Telephone [facility] Allyson Pool PA-C LETTER NEEDED Medicine [address] [facility] [address] [place], [place] [address] [place] [address] [phone] Social History Tobacco Use Types Packs/Day Years Used Date Smoking Tobacco: Never Smokeless Tobacco: Never Alcohol Use Standard Drinks/Week Comments Yes 0 (1 standard drink = 0.6 oz pure alcoho l) rare occasions (1 per month) Sex Assigned at Date Recorded Not on file documented as of this encounter Nursing Notes Estrella Vann LPN - 10/24/2017 5:21 PM CDT I called and spoke to pt's emergency contact Onel and explained that in order to issue a letter of this magnitude Allyson Pool PA-C will need to see the pt in clinic to discuss everything that is going onand determine if pt herself is ok with all of this. Allyson Pool PA-C - 10/24/2017 4:53 PM CDT I need to see patient in clinic Allyson Pool PA-C 4:53 PM 10/24/2017 Pooja Cortes - 10/24/2017 2:41 PM CDT Forms & Letters What form/letter are you requesting? Patient needs a letter indicating that she is capable of making a decision to pull her equity out ogher reverse mortgage on Her home. This letter/other is needed from: Allyson Pool PA-C for equity from reverse mortgage How would you like to receive your completed letter/other? Mail to this address: [id number] [facility] [address] Additional comments (related to the above concern): Is it okay to leave a detailed message on your voicemail? Yes (Advise caller that the PN call back number will end with [phone] or unknown) (Advise caller letter/other can be faxed, mailed or dropped off. We will complete it as soon as possible and return it to the location you requested. If the request will take longer than 5 business days, we will contact you.) Please route to: FELI Vega documented in this encounter Plan of Treatment Not on filedocumented as of this encounter Visit Diagnoses Not on filedocumented in this encounter Care Teams Wood Cabinet Finisher Relationship Specialty Start Date End Date Allyson Pool PA-C PCP - General Physician Ribbon Hand 09/26/16 02/28/[address] [place] [address] [address] Erin ESCALANTE Oracle Ebs Architect 10/24/17 BORIS Desir [phone] documented as of this encounter
--- OUTSIDE RECORDS SUMMARY | 2022-02-21 10:28 | XMS_ITS | Encounter Summary ---
:1935 Author Organization [facility] Address [address] [address] Care Team Providers Name Role Phone Allyson Pool PA-C Primary Care Provider Reason for Visit Procedure/Equipment (Routine) - Incomplete Specialty Diagnoses / Procedures Referred By Contact Refer red To Contact Diagnoses MGUS (monoclonal gammopathy of unknown significance) (HRC) Marlys Barboza Procedures NM PET/CT Skull Base To Mid Thigh MILADIS Moore [address] [place], [place] [address] Referral ID Status Reason Start Date Expiration Date Visits V isits Requested Authorized [id number] Incomplete 10/22/2017 01/21/2019 6 6 Encounter Details Date Type Department Care Team Description 10/25/2017 Hospital Encounter [facility] Luna, Medicine MILADIS Guerrero [address] [facility] [place] [id number] (Wo rk) Social History Tobacco Use Types Packs/Day Years Used Date Smoking Tobacco: Never Smokeless Tobacco: Never Alcohol Use Standard Drinks/Week Comments Yes 0 (1 standard drink = 0.6 oz pure alcoho l) rare occasions (1 per month) Sex Assigned at Date Recorded Not on file documented as of this encounter Medications at Time of Discharge Medication Sig Dispensed Refills Start Date End Date amLODIPine (NORVASC) 5 MG Take 0.5 Tabs by 45 Tab 3 09/1106/26/2018 tabletIndications: mouth daily. Essential hypertension (HRC) aspirin 81 MG tablet Take 1 Tab by mouth. 100 Tab 3 07/1006/26/2018 Do not take for two weeks after surgery. Okay to resume on 07/24/2017 cholecalciferol (VITAMIN Take 1 Tab by mouth 90 Tab 3 01/12/2018 D3) 1000 UNITS daily. tabletIndications: Vitamin D deficiency (HRC) donepezil (ARICEPT) 10 MG Take 10 mg by mouth 0 12/02/2017 tablet daily at bedtime. labetalol (TRANDATE) 100 Take 50 mg in the 135 Tab 3 09/1111/28/2017 MG tabletIndications: 1/2 morning and 100 mg tablet in morning and 1 in the evening tablet at night Indications: 1/2 tablet in morning and 1 tablet at night nitroglycerin (NITROSTAT) Place 0.4 mg under 0 06/23/2021 0.4 MG sublingual tablet tongue. PARoxetine (PAXIL) 10 MG Take 10 mg by mouth 3 11/07/2017 tablet daily. rosuvastatin (CRESTOR) 40 Take 40 mg by mouth 0 11/02/2017 MG tablet daily. 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 documented in this encounter Results NM PET/CT Skull Base To Mid Thigh (10/25/2017 1:24 PM CDT) Anatomical Region Laterality Modality Nuclear Medicine Specimen (Source) Anatomical Collection Method Collection Time Re ceived Time Location / / Volume Laterality 10/25/2017 11:27 AM CDT Impressions 10/25/2017 2:58 PM CDT IMPRESSION: 1. No convincing evidence of metastatic disease. 2. No lymphadenopathy. 3. Neck is not well evaluated due to zander topenic artifact. 4. The upper portion of the calvarium is not included in [id number]-hc-[id number] and thus the calvarial lesions noted on brain MRI are not evaluated on this exam. Narrative 10/25/2017 2:58 PM CDT TECHNIQUE: Images were obtained from the skull base through the proximal thighs. Low-dose CT was obtained for attenuation correction and anatomic correlation. RADIOPHARMACEUTICAL: 13.45 mCi Fluorine- 18 Fluorodeoxyglucose. BLOOD GLUCOSE: 80 mg/dl. COMPARISON: 05/17/2017 CT chest. MRI bra in 05/17/2017. FINDINGS: Physiologic uptake is noted wi thin the base of the brain, tongue, salivary glands, larynx, heart, renal collecting system, bladder and bowel. HEAD/NECK: The neck is not well evaluate d due to photopenia artifact which may be due to patient movement. No lymphadenopathy confirmed on CT images. Upper portion of the calvarium is not included in fi eld-of-view. Mild hypermetabolic activit y at the right lobe thyroid nonspecific and may correspond with the known nodule. CHEST: No abnormal hypermetabolic activi ty. No adenopathy. No effusion. Lungs stable. Stable 3.5 cm pericardial/mediastinal cysts on the left. ABDOMEN/PELVIS: No abnormal hypermetabol ic activity. No adenopathy. Solid organs have an unremarkable noncontrast appearance. No adenopathy. Small hiatal hernia. No GI tract dilatation. Minimal free fluid in the pelvis. MUSCULOSKELETAL: Focus of hypermetabolic activity slice 84 with SUV max of 3.0 the right aspect of the T11 vertebral body more anteriorly is nonspecific and may be degenerative. No corresponding lesion. No suspicious abnormal hypermetabolic a ctivity otherwise confirmed. Some activity within the musculature posterior to the left shoulder is nonspecific. Fusion hardware within the cervical spine. Procedure Note Clifton Kilgore MD - 10/25/2017Formatt ing of this note might be different from the original. TECHNIQUE: Images were obtained from the skull base through the proximal thighs. Low-dose CT was obtained for attenuation correction and anatomic correlation. RADIOPHARMACEUTICAL: 13.45 mCi Fluorine- 18 Fluorodeoxyglucose. BLOOD GLUCOSE: 80 mg/dl. COMPARISON: 05/17/2017 CT chest. MRI bra in 05/17/2017. FINDINGS: Physiologic uptake is noted wi thin the base of the brain, tongue, salivary glands, larynx, heart, renal collecting system, bladder and bowel. HEAD/NECK: The neck is not well evaluate d due to photopenia artifact which may be due to patient movement. No lymphadenopathy confirmed on CT images. Upper portion of the calvarium is not included in [id number]. Mild hypermetabolic activity at the right lob e thyroid nonspecific and may correspond with the known nodule. CHEST: No abnormal hypermetabolic activi ty. No adenopathy. No effusion. Lungs stable. Stable 3.5 cm pericardial/mediastinal cysts on the left. ABDOMEN/PELVIS: No abnormal hypermetabol ic activity. No adenopathy. Solid organs have an unremarkable noncontrast appearance. No adenopathy. Small hiatal hernia. No GI tract dilatation. Minimal free fluid in the pelvis. MUSCULOSKELETAL: Focus of hypermetabolic activity slice 84 with SUV max of 3.0 the right aspect of the T11 vertebral body more anteriorly is nonspecific and may be degenerative. No corresponding lesion. No suspicious abnormal hypermetabolic activ ity otherwise confirmed. Some activity within the musculature posterior to the left shoulder is nonspecific. Fusion hardware within the cervical spine. IMPRESSION IMPRESSION: 1. No convincing evidence of metastatic disease. 2. No lymphadenopathy. 3. Neck is not well evaluated due to zander topenic artifact. 4. The upper portion of the calvarium is not included in uqcnu-by-ojme and thus the calvarial lesions noted on brain MRI are not evaluated on this exam. Marlys REDDING RAD NM documented in this encounter Visit Diagnoses Not on filedocumented in this encounter Care Teams Electro Mechanical Solar Technician Relationship Specialty Start Date End Date Allyson Pool PA-C PCP - General Physician Vice President Of Contracts 09/26/16 02/28/[address] [place] [address] Erin ESCALANTE Private Household Worker 10/24/17 BORIS Desir [phone] documented as of this encounter
--- OUTSIDE RECORDS SUMMARY | 2022-02-21 10:28 | XMS_ITS | Encounter Summary ---
:1935 Author Organization [facility] Address [address] [place] [address] Care Team Providers Name Role Phone Allyson Pool PA-C Primary Care Provider Encounter Details Date Type Department Care Team Description 12/18/2017 Notes/Orders [facility] Marlys Barboza [address] [facility] [place] [address] [address] [facility] S [phone] [facility] [address] [address] (Wo rk) Social History Tobacco Use Types Packs/Day Years Used Date Smoking Tobacco: Never Smokeless Tobacco: Never Alcohol Use Standard Drinks/Week Comments Yes 0 (1 standard drink = 0.6 oz pure alcoho l) rare occasions (1 per month) Sex Assigned at Date Recorded Not on file documented as of this encounter Progress Notes Marlys Barboza MBBS - 12/18/2017 3:47 PM CDT Pt DOES NOT need any more MRI please cancel scan in February. I will call her with the results of this MRI . I am waiting to speak with radiology.Pls let pt know Breanne Toledo RN - 12/18/2017 3:47 PM CDT Pt was informed. Scan cancelled for February. Images were electronically sent to [facility]. Pt is aware youwill be calling with results. Thanks!! documented in this encounter Plan of Treatment Not on filedocumented as of this encounter Visit Diagnoses Not on filedocumented in this encounter Care Teams Senior Project Architect Relationship Specialty Start Date End Date Allyson Pool PA-C PCP - General Physician Production Control Technologist 09/26/16 02/28/21 [address] [place] [address] Erin ESCALANTE Packer Inspector 10/24/17 BORIS Desir [phone] documented as of this encounter
--- OUTSIDE RECORDS SUMMARY | 2022-02-21 10:28 | XMS_ITS | Encounter Summary ---
:1935 Author Organization [facility] Address [address] [place] [address] Care Team Providers Name Role Phone Allyson Pool PA-C Primary Care Provider Reason for Visit Procedure/Equipment (Routine) - Incomplete Specialty Diagnoses / Procedures Referred By Contact Refer red To Contact Diagnoses S/P cervical spinal fusion Phuong Vogel, TUBE KNITTER, Procedures XR Cervical Spine 2 Views PROCUREMENT ACCOUNTANT [address] [place], [place] [address] Referral ID Status Reason Start Date Expiration Date Visits V isits Requested Authorized [id number] Incomplete 01/02/2018 04/03/2019 1 1 Encounter Details Date Type Department Care Team Description 01/03/2018 Imaging [facility] Phuong Vogel, S/P [facility] [address] [facility] TUBE KNITTER, PROCUREMENT [place] [address] [place] [address] [place] [address] (Wo rk) Social History Tobacco Use [...] Priority Date/Time Associated Diagnosis Comme nts XR CERVICAL SPINE 2 Routine 01/03/2018 11:19 AM S/P cervical s tina Results for this VIEWS CDT fusion procedure are i n the results section. documented in this encounter Results XR Cervical Spine 2 Views (01/03/2018 11:19 AM CDT) Anatomical Region Laterality Modality Spine, C-Spine, Neck Digital Radiography Specimen (Source) Anatomical Collection Method Collection Time Re ceived Time Location / / Volume Laterality 01/03/2018 11:00 AM CDT Narrative 01/03/2018 11:38 AM CDT COMPARISON: ??09/30/2017 FINDINGS: ??Stable alignment of C3-C5 an terior cervical fusion without evidence of hardware failure. ??No prevertebral soft tissue swelling is seen. Procedure Note Justin Hewitt MD - 01/03/2018Forma tting of this note might be different from the original. COMPARISON: 09/30/2017 FINDINGS: Stable alignment of C3-C5 ante rior cervical fusion without evidence of hardware failure. No prevertebral soft tissue swelling is seen. Phuong Vogel TUBE KNITTER, PROCUREMENT ACCOUNTANT RAD GD documented in this encounter Visit Diagnoses Diagnosis S/P cervical spinal fusion Arthrodesis status documented in this encounter Care Teams Dandy Tender Relationship Specialty Start Date End Date Allyson Pool PA-C PCP - General Physician Assistant Professor Of Chemistry 09/26/16 02/28/21 [address] [place] [address] Erin ESCALANTE Perfume And Toilet Water Maker 10/24/17 BORIS Desir [phone] documented as of this encounter
--- OUTSIDE RECORDS SUMMARY | 2022-02-21 10:28 | XMS_ITS | Encounter Summary ---
:1935 Author Organization [facility] Address [address] [place] [address] Care Team Providers Name Role Phone Stephanie Pool PA-C Primary Care Provider Reason for Visit Reason Comments Refill Cholecalciferol (VITAMIN D3) 1000 units ta [Pharmacy Med Name: VITAMIN D 1,000UNIT TABLETS] Encounter Details Date Type Department Care Team Description 01/12/2018 Refill [facility] Stephanie Pool PA-C Refill (Cholecalciferol Medicine [address] (VITAMIN D3) 1000 units [address] [place] [address] ta [Pharmacy Med Name: [place] [address] VITAMIN D 1,000UNIT [phone] TABLETS]) Social History Tobacco Use Types Packs/Day Years Used Date Smoking Tobacco: Never Smokeless Tobacco: Never Alcohol Use Standard Drinks/Week Comments Yes 0 (1 standard drink = 0.6 oz pure alcoho l) rare occasions (1 per month) Sex Assigned at Date Recorded Not on file documented as of this encounter Nursing Notes Maribel Lucio RN - 01/13/2018 9:03 AM CDT Renewed medication per medication refill protocol. Requested Prescriptions Pending Prescriptions Disp Refills Cholecalciferol (VITAMIN D3) 1000 units ta [Pharmacy Med Name: VITAMIN D 1,000UNIT TABLETS] 90 Tablet 3 Sig: TAKE 1 TABLET BY MOUTH DAILY Interface, Out [employer] Prov Query - 01/12/2018 1:21 PM CDT Cholecalciferol (VITAMIN D3) 1000 units ta [Pharmacy Med Name: VITAMIN D 1,000UNIT TABLETS] Medication started: 11/06/2016 Last ordered by STEPHANIE POOL: 12/21/2016 (387 days ago) QTY: 90, Refills: 3, Sig: take 1 tab by mouth daily. (changed but equivalent) -> Refill x 12 months, qty: 90, refills: 3 (until due for an office visit) Last qualifying visit: 11/07/2017 (with STEPHANIE POOL) Next scheduled visit: None Powered by [employer], Reference: [id number], 01/12/2018 1:21:37 PM CDT, Pool: LIBRADO HERNANDEZ REFILL ([id number]) documented in this encounter Plan of Treatment Not on filedocumented as of this encounter Visit Diagnoses Diagnosis Vitamin D deficiency (HRC) Unspecified vitamin D deficiency documented in this encounter Care Teams Hydrochloric Acid Operator Relationship Specialty Start Date End Date Stephanie Pool PAAlexaC PCP - General Physician Mechanical Spreader Operator 09/26/16 02/28/[address] [place] [address] Erin ESCALANTE Display Decorator 10/24/17 Fatou Haile, BORIS [phone] documented as of this encounter
--- OUTSIDE RECORDS SUMMARY | 2022-02-21 10:28 | XMS_ITS | Encounter Summary ---
:1935 Author Organization [email or web address] Address [address] [place] [address] Care Team Providers Name Role Phone Allyson Pool PA-C Primary Care Provider Reason for Referral Procedure/Equipment (Routine) - Incomplete Specialty Diagnoses / Procedures Referred By Contact Refer red To Contact Diagnoses Thyroid nodule (HRC) Allyson Pool PA-C Procedures US Thyroid [address] [place] [address] Referral ID Status Reason Start Date Expiration Date Visits V isits Requested Authorized [id number] Incomplete 06/26/2018 09/25/2019 1 1 HEADER Reason for Visit Reason Comments Annual Exam Non-Fasting Encounter Details Date Type Department Care Team Description 06/26/2018 Office Visit [place] [facility] Allyson Pool PA-C Annual physical exam (Primary Dx); Medicine [address] [address] Dementia in Alzheimer's disease; [address] [place], [place] Thyroid nodule; [place] [address] Essential hypertension; [phone] Vitamin D defic iency; (Work) Hyperlipidemia, unspecified hyperlipidem ia type; Recurrent major depressive disorder, in partial remission (HRC); Anxiety; Monoclonal gamm opathy present on serum protein electrophoresis; Memory loss; Old myocardial infarction; Chronic coronar y artery disease; Recurrent major depressive disorder, in remission (HRC); Screening for d eficiency anemia Social History Tobacco Use Types Packs/Day Years Used Date Smoking Tobacco: Never Smokeless Tobacco: Never Alcohol Use Standard Drinks/Week Comments Yes 0 (1 standard drink = 0.6 oz pure alcoho l) rare occasions (1 per month) Sex Assigned at Date Recorded Not on file documented as of this encounter Last Filed Vital Signs Vital Sign Reading Time Taken Comments Blood Pressure 110/60 06/26/2018 10:46 AM PILE HEADER Pulse 64 06/26/2018 10:46 AM PILE HEADER Temperature - - Respiratory Rate - - Oxygen Saturation - - Inhaled Oxygen Concentration - - Weight 92.6 kg (204 lb 3.2 oz) 06/26/2018 10:46 AM PILE HEADER Height 161.3 cm (5' 3.5) 06/26/2018 10:46 AM PILE HEADER Body Mass Index 35.61 06/26/2018 10:46 AM PILE HEADER documented in this encounter Patient Instructions Patient InstructionsGrAllyson montoya PA-C - 06/26/2018 10:30 AM CST Get your labs done today. Schedule the thyroid ultrasound. Follow up with hematology in the next 1-2 months. Check to see if you had the new shingles vaccine it is called shingrix and requires 2 doses. You arealso due for the pneumonia vaccine called PPSV23. You had the PCV13 pneumonia vaccine in 2015. You also need a tetanus vaccine. There is a shortage of the shingles vaccine and I cannot guarantee there will be a vaccine available. When you are fasting (nothing to eat or drink for 8-10 hours - you can drink water) go to lab for your blood work. You can call [phone] to schedule an appointment, but can also walk in. Lab hours:Saturday-Saturday 7am-7pm. Saturdays 8am-12pm. Schedule a nurse visit for vaccines when you come in for your fasting labs. Follow up with me in 4 months. Bring in your health Care Directive. HEADER documented in this encounter Progress Notes Allyson Pool PA-C - 06/26/2018 10:30 AM CST Internal Medicine [facility] - Allyson Pool PA-C Fidelia Vyas 82 y.o. 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 female who presents for annual physical exam. She is with her daughter Onel. Patient is living in her home with her ED. Her dementia is progressive but stable.On aricep. She is followed by neurology. CAD with h/o NE and stents. HTN and HLD. Seen last by her real estate underwriter in 2018 and doing well. Plan to continue current regimen with f/u cardiology in 2 years. Doing well. No chest pain, SOB, exercise intolerance and BP is well controlled. Depression. Sertraline increased to 75 mg by her neurologist and this has helped with her anger and depression. MGUS. Due for hematology follow up. Last seen in September 2017. Thyroid nodule. Overdue for repeat thyroid US. Patient Active Problem List Diagnosis ??? Old [...] coordination ??? Dementia in Alzheimer's disease (HRC) Social History: non-smoker Family History: heart disease Allergies: Atorvastatin and Morphine Outpatient Medications Prior to Visit Medication Sig Note Dispense Refill ??? nitroglycerin (NITROSTAT) 0.[address] 0.4 mg under tongue. 11/01/2016: Received from: P[facility] Ventura Sig: Place 1 tablet (0.4 mg) under the tongue every 5 minutes as needed forchest pain ??? amLODIPine (NORVASC) 5 MG tablet Take 0.5 Tabs by mouth daily. 45 Tab 3 ??? aspirin 81 MG tablet Take 1 Tab by mouth. Do not take for two weeks after surgery. Okay to resume on 07/24/2017 100 Tab 3 ??? Cholecalciferol (VITAMIN D3) 1000 units ta TAKE 1 TABLET BY MOUTH DAILY 90 Tablet 3 ??? diazePAM (VALIUM) 5 MG tablet Pt to bring with to appt. Do not take prior to arrival. MRI staff will instruct when to take med. (Patient not taking: Reported on 06/26/2018) 1 Tab 0 ??? donepezil (ARICEPT) 10 MG tablet Take 1 Tablet by mouth daily at bedtime. 90 Tablet 1 ??? labetalol (TRANDATE) 100 MG tablet TAKE ONE-HALF TABLETS BY MOUTH EVERY MORNING AND 1 TABLET BY MOUTH EVERY EVENING. 135 Tablet 3 ??? rosuvastatin (CRESTOR) 40 MG tablet Take 1 Tab by mouth daily. 90 Tab 3 ??? sertraline (ZOLOFT) 50 MG tablet Take 1.5 Tablets by mouth daily. 135 Tablet 11 ??? triamterene-hydrochlorothiazide (MAXZIDE-25) 37.5-25 MG tablet TAKE 1/2 TABLET BY MOUTH DAILY 45Tab 2 No facility-administered medications prior to visit. Review of Systems: Complete review of systems assessed. Pertinent review of systems negative except for what is noted in the HPI. All others systems negative. Physical Exam: BP 110/60 (BP Location: Right Arm, BP Cuff Size: Adult Regular) Pulse 64 Ht 1.613 m (5' 3.5) Wt 92.6 kg (204 lb 3.2 oz) BMI 35.61 kg/m?? Estimated body mass index is 35.61 kg/m?? as calculated from the following: Height as of this encounter: 1.613 m (5' 3.5). Weight as of this encounter: 92.6 kg (204 lb 3.2 oz). Constitutional: Well developed, Well nourished, No acute distress, Non-toxic appearance. Eyes: Anicteric, conjunctiva clear. Pupils equal, round, and reactive to light. Ears: External ears normal. Canals clear. TM's normal. Nose: Nares normal. Mucosa normal. No rhinorrhea or congestion. Throat: No erythema, exudates, or lesions. Mouth: Moist mucous membranes. Neck: Neck supple. No adenopathy. Trachea midline. Cardiovascular: Regular rate and rhythm. No murmur, rub, or gallop. Respiratory: No respiratory distress. Clear to auscultation bilaterally, no wheezes, rhonchi, or rales. Gastrointestinal: Normal bowel sounds. Abdomen soft. Non-tender. No guarding or rebound. No masses or organomegaly appreciated. Neuro: memory loss. Short term memory loss. Psychiatric: Mood and affect appropriate to the situation. Legs: No edema Lymph: There is no concerning anterior/posterior cervical or supraclavicular adenopathy Breast(s): No dimppiling or retrations. No skin changes. No erythema, warmth, or obvious edema. No palpable masses. Breast tissue is normal. No nipple discharge. No palpable axillary lymph nodes. Assessment and Plan: 1.) Annual physical exam - she will return for fasting labs. - we discussed breast cancer screening. She is interested in a mammogram. We discussed pros and consand when we should stop. She wants to get a mammogram this year. - Patient encouraged to get yearly eye exam and dental exam - Patient encouraged to get regular exercise and eat a heart healthy diet that is low in sugar and carbohydrate. - I recommend yearly physical exam 2.) Dementia - continue aricept and follow up with neurology 3.) CAD, HTN, HLD - continue current medications - labs today - follow up with cardiology in 2020 4.) MGUS - encouraged her to schedule a follow up with hematology 5.) thyroid nodule - thyroid US ordered and TSH with reflex T4 6.) depression - continue sertraline 75 mg daily 7.) Vitamin D def - continue vitamin d Allysno Pool PA-C 12:33 PM 06/26/2018 ICD-10-CM 1. Annual physical exam Z00.00 2. 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 Thyroid nodule ([facility]) E04.1 US Thyroid TSH with Free T4 (if TSH Abnormal) 4. Essential hypertension (HRC) I10 amLODIPine (NORVASC) 5 MG tablet labetalol (TRANDATE) 100 MG tablet triamterene-hydrochlorothiazide (MAXZIDE-25) 37.5-25 MG tablet Basic Metabolic Panel 5. Vitamin D deficiency ([facility]) E55.9 Cholecalciferol (VITAMIN D3) 1000 units ta Vitamin D 25-Hydroxy, Total 6. Hyperlipidemia, unspecified hyperlipidemia type (HRC) E78.5 rosuvastatin (CRESTOR) 40 MG tablet Lipid Panel and Direct LDL(If Needed) 7. Recurrent major depressive disorder, in partial remission (HRC) F33.41 sertraline (ZOLOFT) 50 MG tablet 8. Anxiety (HRC) F41.9 sertraline (ZOLOFT) 50 MG tablet 9. 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 Memory loss R41.3 11. Old myocardial infarction (HRC) I25.2 12. Chronic coronary artery disease (HRC) I25.10 13. Recurrent major depressive disorder, in remission (C) F33.40 14. Screening for deficiency anemia Z13.0 Complete Blood Count-W/Diff HEADER documented in this encounter Plan of Treatment Not on filedocumented as of this encounter Results US Thyroid (06/26/2019 2:40 PM PILE HEADER) Anatomical Region Laterality Modality Neck, Head Ultrasound Specimen (Source) Anatomical Collection Method Collection Time Re ceived Time Location / / Volume Laterality 06/26/2019 2:14 PM PILE HEADER Impressions 06/26/2019 2:56 PM PILE HEADER COMPARISON: 05/17/2017. Reference also made to a [...] 5 years). Allyson Pool PA-C RAD US Vitamin D 25-Hydroxy, Total (06/17/2019 9:52 AM PILE HEADER) P athologist Signature Vitamin D, 36 30 - 80 06/17/2019 [facility] 25-OH, Total ng/mL 3:39 PM PI[facility]ER LABORATORY Specimen Anatomical Collection Method / Collection Time Recei miladis Time (Source) Location / Volume Laterality Blood Venipuncture / 06/17/2019 9:52 06/17/2019 9:52 Unknown AM PILE HEADER AM PILE HEADER Allyson Pool PA-C LAB_1 Performing Organization Address [facility] Phon e Number [facility] [address] [place] [address] TSH with Free T4 (if TSH Abnormal) (06/17/2019 9:52 AM PILE HEADER) athologist Signature TSH, Reflex 1.16 0.30 - 4.50 06/17/2019 [facility] uIU/mL 3:39 PM PI[facility] LABORATORY Specimen Anatomical Collection Method / Collection Time Recei miladis Time (Source) Location / Volume Laterality Blood Venipuncture / 06/17/2019 9:52 06/17/2019 9:52 Unknown AM PILE HEADER AM PILE HEADER Narrative [facility] - 06/17/2019 3:39 P M PILE HEADER Lab will automatically reflex to Free T4 when TSH results are <0.30 uIU/mL or >4.50 mIU/mL. Allyson Pool PA-C LAB_1 Performing Organization Address [facility] Phon e Number [facility] [address] [place] [phone] Lipid Panel and Direct LDL(If Needed) (06/17/2019 9:52 AM PILE HEADER) Analysis Performed At Patho logist Time Signature Cholesterol 141 0 - 199 06/17/2019 [facility] mg/dL 10:27 AM [facility] LABORATORY Triglyceride 77 <=149 06/17/2019 [facility] mg/dL 10:27 AM [facility] HDL Cholesterol 62 >=40 mg/dL 06/17/2019 [facility] 10:27 AM [facility] LDL, Calculated 64 <130 mg/dL 06/17/2019 [facility] 10:27 AM [facility] Non HDL Chol, 79 mg/dL 06/17/2019 [facility] Calculated 10:27 AM [facility] Cholesterol/HDL 2.3 06/17/2019 [facility] Ratio 10:27 AM [facility] Hours Fasting 12 06/17/2019 [facility] 10:27 AM [facility] LABORATORY Specimen Anatomical Collection Method / Collection Time Recei miladis Time (Source) Location / Volume Laterality Blood Venipuncture / 06/17/2019 9:52 06/17/2019 9:52 Unknown AM PILE HEADER AM PILE HEADER Allyson Pool PA-C LAB_1 Performing Organization Address City/State/ZIP Code Phon e Number [facility] [id number] [place] [address] (ABNORMAL) Basic Metabolic Panel (06/17/2019 9:52 AM PILE HEADER) P athologist Signature Sodium 142 136 - 145 06/17/2019 [facility] mmol/L 10:27 AM [facility] Potassium 3.8 3.5 - 5.1 06/17/2019 [facility] mmol/L 10:27 AM [facility] Chloride 105 98 - 109 06/17/2019 [facility] mmol/L 10:27 AM [facility] CO2 28 20 - 29 06/17/2019 [facility] mmol/L 10:27 AM [facility] Anion Gap 9 7 - 16 06/17/2019 [facility] mmol/L 10:27 AM [facility] Calcium 9.2 8.4 - 10.4 06/17/2019 [facility] mg/dL 10:27 AM [facility] BUN <10 7 - 26 06/17/2019 [facility] mg/dL 10:27 AM [facility] Creatinine 0.90 0.55 - 06/17/2019 [facility] 1.02 mg/dL 10:27 AM [facility] GFR, Estimated 60 (L) >60 06/17/2019 [facility] mL/min/1.7 10:27 AM [facility] 3m2 GFR, Est If >60 >60 06/17/2019 [facility] mL/min/1.7 10:27 AM [facility] [place] 3m2 Glucose 91 70 - 100 06/17/2019 [facility] mg/dL 10:27 AM [facility] Comment: The given reference range is fo r the fasting state. Non-fasting reference range for glucose is 70 - 180 mg/dL. Hours Fasting 12 06/17/2019 10:27 AM PILE HEADER [facility] Specimen Anatomical Collection Method / Collection Time Recei miladis Time (Source) Location / Volume Laterality Blood Venipuncture / 06/17/2019 9:52 06/17/2019 9:52 Unknown AM PILE HEADER AM PILE HEADER Allyson Pool PA-C LAB_1 Performing Organization Address City/State/ZIP Code Phon e Number [facility] [id number] [place] [address] documented in this encounter Visit Diagnoses Diagnosis Annual physical exam - Primary Routine general medical examination at a health care facility Dementia in Alzheimer's disease (HRC) Alzheimer's disease Thyroid nodule (HRC) Nontoxic uninodular goiter Essential hypertension (HRC) Unspecified essential hypertension Vitamin D deficiency (HRC) Unspecified vitamin D deficiency Hyperlipidemia, unspecified hyperlipidem ia type (HRC) Recurrent major depressive disorder, in partial remission (HRC) Anxiety (HRC) Anxiety state, unspecified Monoclonal gammopathy present on serum p rotein electrophoresis (HRC) Memory loss Old myocardial infarction (HRC) Old myocardial infarction Chronic coronary artery disease (HRC) Coronary atherosclerosis of unspecified type of vessel, resighini or graft Recurrent major depressive disorder, in remission (HRC) Screening for deficiency anemia Screening for other and unspecified defi ciency anemia Thyroid nodule (HRC) Nontoxic uninodular goiter documented in this encounter Care Teams Virtual Classroom Manager Relationship Specialty Start Date End Date Allyson Pool PA-C PCP - General Physician Photographic Technician 09/26/16 02/28/21 [id number] [facility] [place] [address] Erin ESCALANTE Threading Machine Feeder Automatic 10/24/17 BORIS Desir [phone] Fatou Haile Threading Machine Feeder Automatic 06/03/18 documented as of this encounter
--- OUTSIDE RECORDS SUMMARY | 2022-02-21 10:28 | XMS_ITS | Encounter Summary ---
:1935 Author Organization [facility] Address [address] [place] [address] Care Team Providers Name Role Phone Allyson Pool PA-C Primary Care Provider Reason for Visit Reason Comments Medicare Encounter Details Date Type Department Care Team Description 06/25/2018 Telephone [facility] Allyson Pool PA-C Medicare Medicine [address] [place] [address] [place] [id number] [place] [address] [phone] Social History Tobacco Use Types Packs/Day Years Used Date Smoking Tobacco: Never Smokeless Tobacco: Never Alcohol Use Standard Drinks/Week Comments Yes 0 (1 standard drink = 0.6 oz pure alcoho l) rare occasions (1 per month) Sex Assigned at Date Recorded Not on file documented as of this encounter Nursing Notes Katina Melendez - 06/25/2018 3:01 PM CST Appointment Information PHYSICAL - 06/26/2018 Appointment Status: Scheduled Allyson Pool PA-C Department: [facility] Time: 10:30 AM Length: 30 minutes PC PSC [facility] FOLLOW-UP Date of Last Physical: not in epic Date of Last Welcome to Medicare/Annual Wellness: not in epic Insurance Verification: Verified by: [facility] Cheat Sheet Insurance Coverage: Regular physical ok? Y Return Calls to Patients: -No call was needed. Mailers: -No test desk operator needed. BENCH OPERATOR documented in this encounter Plan of Treatment Not on filedocumented as of this encounter Visit Diagnoses Not on filedocumented in this encounter Care Teams Dish Washer Relationship Specialty Start Date End Date Allyson Pool PA-C PCP - General Physician Roll Picker 09/26/16 02/28/21 [id number] [place] [id number] Erin ESCALANTE Instructor Dramatic Arts 10/24/17 BORIS Desir [phone] Fatou Haile Instructor Dramatic Arts 06/03/18 documented as of this encounter
--- OUTSIDE RECORDS SUMMARY | 2022-02-21 10:28 | XMS_ITS | Encounter Summary ---
:1935 Author Organization [facility] Address [address] [place] [address] Care Team Providers Name Role Phone Allyson Pool PA-C Primary Care Provider Reason for Visit Reason Comments LETTER NEEDED Encounter Details Date Type Department Care Team Description 11/12/2017 Telephone [facility] Allyson Pool PA-C LETTER NEEDED Medicine [address] [place] [address] [place], [place] [id number] [place] [address] [phone] Social History Tobacco Use Types Packs/Day Years Used Date Smoking Tobacco: Never Smokeless Tobacco: Never Alcohol Use Standard Drinks/Week Comments Yes 0 (1 standard drink = 0.6 oz pure alcoho l) rare occasions (1 per month) Sex Assigned at Date Recorded Not on file documented as of this encounter Nursing Notes Estrella Vann LPN - 11/18/2017 12:58 PM CDT I faxed the letter as requested when Allyson Pool PA-C was completed with it. I call and left a VM notifying them to please contact us if there is anything else that needs to be done. Jacy Mast LPN - 11/15/2017 11:45 AM CDT Routed to provider nurse to complete and send if not done already. Allyson Pool PA-C - 11/12/2017 10:07 PM CDT Letter done. Will sign and Jessie Fox - 11/12/2017 4:57 PM CDT Forms & Letters What form/letter are you requesting? Patient's Daughter states [employer] requesting more information from PCP, Asking if previous letter can be revised to include that the Patient was financially capable at time of diagnosis, PCP has to state if Patient is financially capable at this time. PCP ANGELINA Zhang has to have overseeing Do ctor's signature typed and signed to include credentials and letter dated. This letter/other is needed from: for [email or web address] How would you like to receive your completed letter/other? , Attn: Onel (Daughter) Additional comments (related to the above concern): Previous letter was dated 11/04/17, [employer] requesting MECHELLE. Is it okay to leave a detailed [...] contact you.) Please route to: FELI Vega \ documented in this encounter Plan of Treatment Not on filedocumented as of this encounter Visit Diagnoses Not on filedocumented in this encounter Care Teams Solvent Plant Operator Relationship Specialty Start Date End Date Allyson Pool PA-C PCP - General Physician Incinerator Plant Supervisor 09/26/16 02/28/21 [id number] [place] [id number] Erin ESCALANTE Fabric Awning Repairer 10/24/17 BORIS Desir [phone] documented as of this encounter
--- OUTSIDE RECORDS SUMMARY | 2022-02-21 10:28 | XMS_ITS | Encounter Summary ---
:1935 Author Organization [employer] Address [address] [place] [address] Care Team Providers Name Role Phone Allyson Pool PA-C Primary Care Provider Reason for Visit Reason Comments Follow-up Encounter Details Date Type Department Care Team Description 01/17/2018 Office Visit [facility] [address] Jose Aldridge, Recurrent major depressive disorder, in partial remission ([facility]); Neurology Anxiety [address] [facility] . [facility] [place] [place] [address] [address] [place] [address] (Wo rk) Social History Tobacco Use Types Packs/Day Years Used Date Smoking Tobacco: Never Smokeless Tobacco: Never Alcohol Use Standard Drinks/Week Comments Yes 0 (1 standard drink = 0.6 oz pure alcoho l) rare occasions (1 per month) Sex Assigned at Date Recorded Not on file documented as of this encounter Last Filed Vital Signs Vital Sign Reading Time Taken Comments Blood Pressure 144/74 01/17/2018 3:44 PM CDT Pulse 84 01/17/2018 3:44 PM CDT Temperature - - Respiratory Rate 16 01/17/2018 3:44 PM CDT Oxygen Saturation - - Inhaled Oxygen Concentration - - Weight - - Height - - Body Mass Index - - documented in this encounter Patient Instructions Patient InstructionsJose Aldridge MD - 01/17/2018 3:40 PM CDT Increase sertraline (Zoloft) to 1 1/2 pills once per day for depression/anxiety. Feel free to updateus at [phone] with an update in about 4-6 weeks. Continue the same dose of donepezil for memory, take this in the morning. Your water pill (maxzide) should also be taken in the morning, cholesterol medication (crestor) in the evening Follow up with me in about 6 months documented in this encounter Progress Notes Jose Aldrdige MD - 01/17/2018 12:00 PM CDT NAME: FIDELIA LUNDBERG MR#: [id number] CSN: [id number] AUTHENTICATING CLINICIAN: Jose Aldridge MD CONFIRM #: [id number] LOC: 223 CLINIC PROGRESS NOTE DATE OF VISIT: 01/17/2018 : 1935 CHIEF COMPLAINT: Followup for cognitive impairment. HISTORY OF PRESENT ILLNESS: Fidelia Lundberg is an 82-year-old woman here for followup. I saw her initially in March 2017 for cognitive impairment, presumed Alzheimer's dementia. She was started on donepezil 10 mg per day, which she still takes. She then presented in early 2017 with left arm weakness. EMG ended up showing fairly significant radiculopathy and she ended up having cervical spine fusion earlier this year. This went very well and she has actually regained quite a bit of her strength. They are mostly here today to follow up on her cognitive impairment. This has been getting slowly worse over the last year. She also has more irritable and anger than usual as well. She sometimes uses bad language with her . She endorses depression and anxiety and currently takes 50 mg per day of sertraline. It is a new role for her to be her caregiver and this has been I think a fairly big strain on their marriage. PHYSICAL EXAM: VITAL SIGNS: Blood pressure 144/74, pulse 84, respiratory rate 16. NEUROLOGIC: Remarkable for a Mini-Mental status score of 22/30. She was able to name and repeat. Shedid not have dysarthria. Motor strength was notable for minimal weakness in the left arm compared tothe right, but excellent improvement in strength from previous exam. Lower extremity strength was symmetric. [id number] was intact bilaterally. IMPRESSION: 1. Cervical radiculopathy status post fusion. 2. Probable Alzheimer's dementia. She has shown some progression in her cognitive impairment. She also has suboptimally treated depression and anxiety. I will have her increase sertraline to 75 mg per day starting now. She or her can update me in 4-6 weeks with the results of this increase. She will continue donepezil 10 mg per day. We could consider memantine, but we have also discussed keeping medications at a minimum. I will see her back routinely in 6 months, but they will call with any new concerns or questions in the meantime. 20 minutes out of a 30-minute visit were spent in direct counseling and discussion going over these recommendations and answering questions. DIK:RANDI C: CONFIRM #: [id number] documented in this encounter Plan of Treatment Not on filedocumented as of this encounter Visit Diagnoses Diagnosis Recurrent major depressive disorder, in partial remission (HRC) Anxiety (HRC) Anxiety state, unspecified documented in this encounter Care Teams Student Services Director Relationship Specialty Start Date End Date Allyson Pool PA-C PCP - General Physician Program Assistant 09/26/16 02/28/21 [address] [place] [id number] Erin ESCALANTE Rf Microwave Engineer 10/24/17 BORIS Desir [phone] documented as of this encounter
--- OUTSIDE RECORDS SUMMARY | 2022-02-21 10:28 | XMS_ITS | Encounter Summary ---
:1935 Author Organization [employer] Address [address], [place] [address] Care Team Providers Name Role Phone Allyson Pool PA-C Primary Care Provider Reason for Referral Procedure/Equipment (Routine) - Incomplete Specialty Diagnoses / Procedures Referred By Contact Refer red To Contact Diagnoses MGUS (monoclonal gammopathy of unknown significance) (HRC) Marlys Barboza Procedures NM PET/CT Skull Base To Mid Thigh MILADIS [address] [place], [place] [address] Referral ID Status Reason Start Date Expiration Date Visits V isits Requested Authorized [id number] Incomplete 10/22/2017 01/21/2019 6 6 Reason for Visit Procedure/Equipment (Routine) - Incomplete Specialty Diagnoses / Procedures Referred By Contact Refer red To Contact Diagnoses MGUS (monoclonal gammopathy of unknown significance) (HRC) Marlys Barboza Procedures NM PET/CT Skull Base To Mid Thigh MILADIS [address] [place], [place] [address] Referral ID Status Reason Start Date Expiration Date Visits V isits Requested Authorized [id number] Incomplete 10/22/2017 01/21/2019 6 6 Encounter Details Date Type Department Care Team Description 10/25/2017 Hospital Encounter [facility] Kun Luna, MGUS (monoclonal Medicine MILADIS Guerrero gammopathy of [address] [facility] [address] significance) [facility] [address] [phone] Social History Tobacco Use Types Packs/Day Years [...] hypertension (HRC) documented as of this encounter Progress Notes Trixie Bennett - 10/25/2017 11:[address] Luna can you put the order in for the MRI? Thanks Trixie Bennett - 10/25/2017 11:[address] Luna can you please call the patient, she would like to talk with you before she schedule theMRI Johana Jaffe - 10/25/2017 11:00 AM CDT Scheduled repeat MRI for 03/10/18 pt would like a sedation medication sent to [facility] on [address] in [place]. Johana Jaffe - 10/25/2017 11:00 AM CDT See note below for MRII and medication. documented in this encounter Plan of Treatment Not on filedocumented as of this encounter Procedures Procedure Name Priority Date/Time Associated Diagnosis Comme nts NM PET/CT SKULL Routine 10/25/2017 1:24 PM MGUS (monoclonal Re sults for this BASE TO MID THIGH CDT gammopathy of procedure are in unknown the results significance) section. BGS NO CHARGE Routine 10/25/2017 11:34 AM Results for this CDT procedure are i n the results section. documented in this encounter Results NM [...] of the calvarium is not included in [id number] and thus the calvarial lesions noted on [...] of the calvarium is not included in guqpd-mo-tshf. Mild hypermetabolic activity at the right lob [...] of the calvarium is not included in vusim-kr-sgem and thus the calvarial lesions noted on brain MRI are not evaluated on this exam. Marlys [facility] NM BGS No Charge (10/25/2017 11:34 AM CDT) P athologist Signature Bedside Blood 80 mg/dL PN SOFT Glucose Test Comment: Performed at [address] [place] [address] Specimen Anatomical Collection Method Collection Time Receive d Time (Source) Location / / Volume Laterality 10/25/2017 11:34 10/25/2017 AM CDT 11:41 AM CDT Marlys Teresa [facility]_1 Performing Organization Address City/State/ZIP Code Phon e Number PN SOFT [address] [place] [address] documented in this encounter Visit Diagnoses Diagnosis MGUS (monoclonal gammopathy of unknown s ignificance) (HRC) Monoclonal paraproteinemia documented in this encounter Administered Medications Inactive Administered Medications - up to 3 most recent administrations Medication Order MAR Action Action Date Dose Rate Site fluorine-18 Given 10/25/2017 11:41 13.45 millicuries fluorodeoxyglucose (aka F18) AM CDT injection 13.45 millicurie 13.45 millicurie, Intravenous, ONCE, On Sat10/25/17 at 1215, For 1 dose, Radiology sodium chloride 0.9% injection 20 mL Given 10/25/2017 11:41 AM CDT 20 mL 20 mL, Intravenous, ONCE, On Sat10/25/17 at 1215, For 1 dose, For line care., Radiology documented in this encounter Care Teams Nursing Clinical Director Relationship Specialty Start Date End Date Allyson Pool PA-C PCP - General Physician Director Fraud 09/26/16 02/28/21 [id number] [place] [id number] Erin ESCALANTE Diesel Engine Fitter 10/24/17 BORIS Desir [phone] documented as of this encounter
--- OUTSIDE RECORDS SUMMARY | 2022-02-21 10:28 | XMS_ITS | Encounter Summary ---
:1935 Author Organization [employer] Address [address] [place] [address] Care Team Providers Name Role Phone Allyson Pool PA-C Primary Care Provider Reason for Visit Reason Comments Medicare Annual Wellness TREMORS Lt arm tremors appear to be getting worse Encounter Details Date Type Department Care Team Description 11/07/[address] [facility] Allyson Pool PA-C Encounter for Medicare annual wellness e xam (Primary Dx); Medicine [address] Tremor; [address] [place], [place] Radiculopathy of cervical re gion; [place] [address] Screening for osteoporosis; [phone] Dementia withou t behavioral disturbance, unspecified dementia type; (Work) Immunization due Social History Tobacco Use Types Packs/Day Years Used Date Smoking Tobacco: Never Smokeless Tobacco: Never Alcohol Use Standard Drinks/Week Comments Yes 0 (1 standard drink = 0.6 oz pure alcoho l) rare occasions (1 per month) Sex Assigned at Date Recorded Not on file documented as of this encounter Last Filed Vital Signs Vital Sign Reading Time Taken Comments Blood Pressure 128/76 11/07/2017 11:50 AM CDT Pulse 60 11/07/2017 11:50 AM CDT Temperature - - Respiratory Rate - - Oxygen Saturation - - Inhaled Oxygen Concentration - - Weight 92.5 kg (203 lb 14.4 oz) 11/07/2017 11:50 AM CDT Height 160 cm (5' 3) 11/07/2017 11:50 AM CDT Body Mass Index 36.12 11/07/2017 11:50 AM CDT documented in this encounter Patient Instructions Patient InstructionsAllyson Pool PA-C - 11/07/2017 11:30 AM CDT 1.) Please review your medications at home. You should be taking sertraline 50 mg a day. If you are taking Paxil discontinue this. We are calling the pharmacy to make sure they do not give you this again. If you are taking any medication that is not on her medication list please let us know. 2.) Make an appointment with Dr. Aldridge to discuss your memory and tremor. 3.) If you have increased numbness or weakness in the left arm follow-up with your neurosurgeon right away. 4.) Check with your insurance to see if they will cover the shingles vaccine and pneumonia vaccine. 5.) Schedule a DEXA scan this is a test for osteoporosis. 6.) Go over your health care directive with your family and bring it in to use when you are done. 7.) You are also due for a mammogram. Please consider scheduling this. Please stop at the Clinic Appointment Desk to set up a future mammogram appointment or schedule by calling [phone]. 8.) Follow up with me in 3 months, sooner if new or worsening concerns. Annual Wellness Visit Summary Your care team is recommending the following tests, procedures or services. Some of these recommendations may not be fully covered by Medicare or your insurance. If you have questions, check with your insurance to determine coverage before completing these services. Health Maintenance Due Health Maintenance Topic Date Due ??? Medicare Annual Wellness Visit 1935 ??? DTaP/Tdap/Td (1 - Tdap) 1956 ??? Zoster RZV (Shingrix) (1 of 2 - RZV 2 Dose Standard Series) 11/24/1987 ??? Advanced Directive 2002 ??? Dexa 2002 ??? Pneumococcal (2 of 2 - PPSV23) 02/17/2016 ??? Influenza Completed If your Medicare Welcome or Annual Wellness Visit is showing you are due in the above list, this will be updated after this visit. You had this completed today and are not due for another year. documented in this encounter Progress Notes Allyson Pool PA-C - 11/07/2017 11:30 AM CDT Internal Medicine [facility] - Allyson Pool PA-C Fidelia Vyas 81 y.o. Female : 1935 PN Date of Service: 11/07/2017 Chief Complaint: Dementia, left hand tremor, health maintenance Higher Education Administrator Present: no HPI: Fdielia Vyas is a 81 y.o. female who presents with her ED for the followin.) Patient followed by neurology for dementia. On Aricept. Memory declining. Her had statesshe is more confrontational been normal. Patient tearful today as she feels guilty asking for help and grieves the loss of her independence. Patient last seen by neurology in May. 2.) Increasing left hand tremor. Patient had emergent surgery on her neck earlier this year. Recovering well. Patient noticed some weakness in the arm and increased tremor. Patient does have some weakness. Has appointment with neurosurgery in December. Unclear if this is increase numbness and weakness given patient's dementia. 3.) Polypharmacy. It appears patient was dispensed sertraline and Paxil from her pharmacy. Paxil hadbeen discontinued. Has been taking for months. No obvious signs of serotonin syndrome but does have increased tremor and change in mood. Paxil and sertraline both rather low dose. 4.) Health maintenance. Discussed available screening tests including DEXA and mammogram. We did discuss that given her current health she has choices on what she like to have done. Reasonable to obtain DEXA and mammogram. Patient Active Problem List Diagnosis ??? Old [...] Muscle weakness (generalized) ??? Stenosis, cervical spine Social History: non-smoker Allergies: Atorvastatin and Morphine Outpatient Medications Prior to Visit Medication Sig Note Dispense Refill ??? amLODIPine (NORVASC) 5 MG tablet Take 0.5 Tabs by mouth daily. 45 Tab 3 ??? aspirin 81 MG tablet Take 1 Tab by mouth. Do not take for two weeks after surgery. Okay to resume on 07/24/2017 100 Tab 3 ??? cholecalciferol (VITAMIN D3) 1000 UNITS tablet Take 1 Tab by mouth daily. 90 Tab 3 ??? donepezil (ARICEPT) 10 MG tablet Take 10 mg by mouth daily at bedtime. ??? labetalol (TRANDATE) 100 MG tablet Take 50 mg in the morning and 100 mg in the evening Indications: 1/2 tablet in morning and 1 tablet at night 135 Tab 3 ??? nitroglycerin (NITROSTAT) 0.[address] 0.4 mg under tongue. 11/01/2016: Received from: [facility] Sig: Place 1 tablet (0.4 mg) under the tongue every 5 minutes as needed forchest pain ??? rosuvastatin (CRESTOR) 40 MG tablet Take 1 Tab by mouth daily. 90 Tab 3 ??? sertraline (ZOLOFT) 50 MG tablet Take 1/2 pill (25 mg) daily for 2 weeks, then take 50 mg (1 pill) daily thereafter 90 Tab 3 ??? triamterene-hydrochlorothiazide (MAXZIDE-25) 37.5-25 MG tablet TAKE 1/2 TABLET BY MOUTH DAILY 45Tab 2 No facility-administered medications prior to visit. Review of Systems: Complete review of systems assessed. Pertinent review of systems negative except for what is noted in the HPI. All others systems negative. Physical Exam: BP 128/76 (BP Location: Left Arm, BP Cuff Size: Adult Regular) Pulse 60 Ht 1.6 m (5' 3) Wt 92.5 kg (203 lb 14.4 oz) BMI 36.12 kg/m2 Constitutional: Well developed, Well nourished, No acute distress, Non-toxic appearance. Neuro: patient has poor memory with short term and longer term. Tearful and slightly confrontationalwith her . Very pleasant. Neck: ROM intact. Decreased brick or block maker strength of the left hand. She has a tremor (left > right). Decreased sensation in the left hand. Assessment and Plan: 1.) Memory loss - dementia - Would like patient to get back in with her neurologist to discuss her symptoms and tremor. - Continue Aricept 2.) Cervical myeloradiculopathy - Asked patient and her to monitor her symptoms very closely. If new or progressive symptomsI would like her to follow-up with her neurosurgeon. She has a follow-up planned for December. 3.) Health maintenance - DEXA, mammogram, immunizations. She will check with her insurance about coverage for shingles vaccine and pneumonia vaccine. - Patient advised to follow up if symptoms do not improve, sooner if there are new or worsening symptoms. Allyson Pool PA-C 5:29 PM 11/07/2017 ICD-10-CM 1. Tremor R25.1 2. Radiculopathy of cervical region M54.12 3. Screening for osteoporosis Z13.820 DEXA Bone Density Spine/Hip 4. Dementia without behavioral disturbance, unspecified dementia type F03.90 5. Immunization due Z23 CANCELED: TDAP 6. Encounter for Medicare annual wellness exam Z00.00 Subjective/Historical Fidelia Vyas is a 81 y.o. old female Chief Complaint Patient presents with ??? Medicare Annual Wellness ??? TREMORS Lt arm tremors appear to be getting worse Current Concerns: See above Mini-Cog Assessment Word Recall: 2 Clock Draw: 2 Total: 4 Additional Assessments Completed: PHQ-2 was administered today with a total score of: 0 Has a Health Care Directive on file? no. Pertinent Positives from Medicare Wellness Form: MEDICARE ANNUAL WELLNESS CONCERNS 11/07/2017 How many servings of fruits and vegetables do you eat a day? 2 to 4 Do you have difficulty doing any of the following activities? Laundry Using stairs Driving or using transportation Food preparation Do you forget to take, miss taking your medication or skip a dose more than 1 time a week? Yes Do you feel unsteady when walking? Yes If yes, do you use a? Cane Walker Have you fallen 2 or more times in the past year? Yes Are you able to manage your finances yourself? No The patient's health maintenance, problem list, past medical history, past surgical history, family history, medication list, allergies, and immunization records have been reviewed and updated in the patient record as necessary. Observed Vitals: BP 128/76 (BP Location: Left Arm, BP Cuff Size: Adult Regular) Pulse 60 Ht 1.6 m (5' 3) Wt 92.5 kg (203 lb 14.4 oz) BMI 36.12 kg/m2 Assessment/Plan 1. Tremor 2. Radiculopathy of cervical region 3. Screening for osteoporosis 4. Dementia without behavioral disturbance, unspecified dementia type 5. Immunization due 6. Encounter for Medicare annual wellness exam Counseling and education provided today includes proper nutrition and health habits, fall prevention, and for those items ordered above. Plan for future preventive services in Patient Instructions. Allyson Pool PA-C 11/07/2017, 5:29 PM documented in this encounter Plan of Treatment Not on filedocumented as of this encounter Visit Diagnoses Diagnosis Encounter for Medicare annual wellness e xam - Primary Tremor Abnormal involuntary movements Radiculopathy of cervical region Brachial neuritis or radiculitis nos Screening for osteoporosis Special screening for osteoporosis Dementia without behavioral disturbance, unspecified dementia type Immunization due Need for prophylactic vaccination and in oculation against unspecified single disease documented in this encounter Care Teams Document Control Coordinator Relationship Specialty Start Date End Date Allyson Pool PA-C PCP - General Physician Commercial Relief Driver 09/26/16 02/28/21 [address] [place] [id number] Erin ESCALANTE Extrusion Die Coordinator 10/24/17 BORIS Desir [phone] documented as of this encounter
--- OUTSIDE RECORDS SUMMARY | 2022-02-21 10:28 | XMS_ITS | Encounter Summary ---
:1935 Author Organization [employer] Address [address] [place] [address] Care Team Providers Name Role Phone Stephanie Pool PA-C Primary Care Provider Reason for Visit Reason Comments Refill labetalol (TRANDATE) 100 MG tablet [Pharmacy Med Name: LABETALOL 100MG TABLETS] Encounter Details Date Type Department Care Team Description 11/28/2017 Refill [facility] Stephanie Pool PA-C Refill (labetalol Medicine [address] (TRANDATE) 100 MG [address] [place] [address] tablet [[place] [address] Name: LABETALOL 100MG [phone] TABLETS]) Social History Tobacco Use Types Packs/Day Years Used Date Smoking Tobacco: Never Smokeless Tobacco: Never Alcohol Use Standard Drinks/Week Comments Yes 0 (1 standard drink = 0.6 oz pure alcoho l) rare occasions (1 per month) Sex Assigned at Date Recorded Not on file documented as of this encounter Nursing Notes Gisella Peterson RN - 12/02/2017 11:51 AM CDT Renewed medication per medication refill protocol. Requested Prescriptions Signed Prescriptions Disp Refills ??? labetalol (TRANDATE) 100 MG tablet 135 Tablet 3 Sig: TAKE ONE-HALF TABLETS BY MOUTH EVERY MORNING AND 1 TABLET BY MOUTH EVERY EVENING. Authorizing Provider: STEPHANIE POOL Ordering User: GISELLA PETERSON Interface, Out [employer] Prov Query - 11/28/2017 3:27 AM CDT labetalol (TRANDATE) 100 MG tablet [Pharmacy Med Name: LABETALOL 100MG TABLETS] Medication started: 09/29/2016 Last ordered by STEPHANIE POOL: 10/05/2016 (419 days ago) QTY: 135, Refills: 3, Sig: take 50 mg in themorning and 100 mg in the evening indications: 1/2 tablet in morning and 1 tablet at night (changed) -> This medication may not have been authorized by the requested provider. -> The requested sig has changed from the last order. -> Refill x 12 months (until due for an office visit) -> Calculate quantity and refills manually. They could not be estimated due to missing or unreadable information. Last qualifying visit: 11/07/2017 (with STEPHANIE POOL) Next scheduled visit: None SBP: 128 mm Hg on 11/07/2017 DBP: 76 mm Hg on 11/07/2017 Powered by [employer], Reference: [id number], 11/28/2017 3:27:41 AM CDT, Pool: LIBRADO HERNANDEZ REFILL ([id number]) documented in this encounter Plan of Treatment Not on filedocumented as of this encounter Visit Diagnoses Diagnosis Essential hypertension (HRC) Unspecified essential hypertension documented in this encounter Care Teams Wallpaper Remover Steam Relationship Specialty Start Date End Date Stephanie Pool PA-C PCP - General Physician Entrance Guard 09/26/16 02/28/21 [id number] [place] [id number] Erin ESCALANTE Geography Faculty Member 10/24/17 BORIS Desir [phone] documented as of this encounter
--- OUTSIDE RECORDS SUMMARY | 2022-02-21 10:28 | XMS_ITS | Encounter Summary ---
:1935 Author Organization [employer] Address [address] [place] [address] Care Team Providers Name Role Phone Allyson Pool PA-C Primary Care Provider Reason for Visit Procedure/Equipment (Routine) - Incomplete Specialty Diagnoses / Procedures Referred By Contact Refer red To Contact Procedures Provider, Foreign Images Foreign Image(S) MR Head [address] [place] [address] Referral ID Status Reason Start Date Expiration Date Visits V isits Requested Authorized [id number] Incomplete 12/16/2017 03/17/2019 1 1 Encounter Details Date Type Department Care Team Description 12/02/2017 Imaging [facility] Radiology PACS Provider, Foreign Images [address] [place] [address] [place] [address] Social History Tobacco Use Types Packs/Day Years [...] Name Priority Date/Time Associated Diagnosis Comme nts FOREIGN IMAGE(S) MR Routine 12/02/2017 5:05 PM Re sults for this HEAD CDT procedure are i n the results section. documented in this encounter Results Foreign Image(S) MR Head (12/02/2017 5:05 PM CDT) Specimen (Source) Anatomical Location Collection Method / Collectio n Time Received Time / Laterality Volume Narrative PN POCT - 12/16/2017 5:02 PM CDT These outside images have been uploaded into PACS. If the results were provided, they will be located in the [facility] chart under the Media or Imaging tab. Foreign Images Provider RAD NON-REPORTABLES Performing Organization Address City/State/ZIP Code Phon e Number POCT PN POCT documented in this encounter Visit Diagnoses Not on filedocumented in this encounter Care Teams Guide Excursion Relationship Specialty Start Date End Date Allyson Pool PA-C PCP - General Physician Hand Compositor 09/26/16 02/28/[address] [place] [address] Erin ESCALANTE Collections Attorney 10/24/17 BORIS Desir [phone] documented as of this encounter
--- OUTSIDE RECORDS SUMMARY | 2022-02-21 10:28 | XMS_ITS | Encounter Summary ---
:1935 Author Organization [facility] Address [address] [place] [address] Care Team Providers Name Role Phone Allyson Pool PA-C Primary Care Provider Reason for Referral Procedure/Equipment (Routine) - Incomplete Specialty Diagnoses / Procedures Referred By Contact Refer red To Contact Diagnoses S/P cervical spinal fusion Phuong Vogel APRN, Procedures XR Cervical Spine 2 Views WET ROLLER [address] [place], [place] [address] Referral ID Status Reason Start Date Expiration Date Visits V isits Requested Authorized [id number] Incomplete 01/02/2018 04/03/2019 1 1 Encounter Details Date Type Department Care Team Description 12/31/2017 Notes/Orders Specialty [facility] 3931 Stephanie Perez S /P cervical spinal Neurosurgery MICHELE Fink fusion (Primary Dx) [address] [place] [address] Social History Tobacco Use Types Packs/Day Years Used Date Smoking Tobacco: Never Smokeless Tobacco: Never Alcohol Use Standard Drinks/Week Comments Yes 0 (1 standard drink = 0.6 oz pure alcoho l) rare occasions (1 per month) Sex Assigned at Date Recorded Not on file documented as of this encounter Progress Notes Stephanie Perez LPN - 12/31/2017 3:40 PM CDT Pt coming in for appt with [facility] on 01/02. Pt is needing Cervical xray. Please review pended order and sign. documented in this encounter Plan of Treatment Not on filedocumented as of this encounter Results XR Cervical Spine 2 [...] soft tissue swelling is seen. Phuong Vogel MANAGER LEADERSHIP DEVELOPMENT, WET ROLLER RAD GD documented in this encounter Visit Diagnoses Diagnosis S/P cervical spinal fusion - Primary Arthrodesis status S/P cervical spinal fusion Arthrodesis status documented in this encounter Care Teams Woodwind Instruments Inspector Relationship Specialty Start Date End Date Allyson Pool PA-C PCP - General Physician Fire Safety Inspector 09/26/16 02/28/21 [address] [place] [address] Erin ESCALANTE Electrical And Instrumentation Mechanic 10/24/17 BORIS Desir [phone] documented as of this encounter
--- OUTSIDE RECORDS SUMMARY | 2022-02-21 10:28 | XMS_ITS | Encounter Summary ---
:1935 Author Organization [facility] Address [address] [address] Care Team Providers Name Role Phone Allyson Pool PA-C Primary Care Provider Reason for Visit Reason Comments Refill Encounter Details Date Type Department Care Team Description 11/03/2017 Refill Specialty Center 3931 Norberto Aldridge MD Refill Neurology 3931 [facility] [address] [place] [phone] (Wo rk) Social History Tobacco Use Types [...] on filedocumented in this encounter Care Teams Commutator Operator Relationship Specialty Start Date End Date Allyson Pool PA-C PCP - General Physician Coal Equipment Operator 09/26/16 02/28/[address] [place] [address] Erin ESCALANTE Medical Lab Technologist 10/24/17 BORIS Desir [phone] documented as of this encounter
--- OUTSIDE RECORDS SUMMARY | 2022-02-21 10:28 | XMS_ITS | Encounter Summary ---
:1935 Author Organization [employer] Address [address] [place] [address] Care Team Providers Name Role Phone Allyson Pool PA-C Primary Care Provider Encounter Details Date Type Department Care Team Description 11/26/2017 Notes/Orders [facility] Margarita Luna, MGUS (monoclonal [address] [facility] MILADIS Guerrero [place] [address] [address] [place]) [phone] S (Primary Dx) [place] [address] (Wo rk) Social History Tobacco [...] paraproteinemia documented in this encounter Care Teams Bean Snapper Relationship Specialty Start Date End Date Allyson Pool PA-C PCP - General Physician Automatic Nailing Machine Feeder 09/26/16 02/28/21 [address] [place] [address] Erin ESCALANTE Casino Cage Supervisor 10/24/17 BORIS Desir [phone] documented as of this encounter
--- OUTSIDE RECORDS SUMMARY | 2022-02-21 10:28 | XMS_ITS | Encounter Summary ---
:1935 Author Organization [facility] Address [address] [place] [address] Care Team Providers Name Role Phone Allyson Pool PA-C Primary Care Provider Reason for Visit Reason Comments UPDATE MRI Encounter Details Date Type Department Care Team Description 12/13/2017 Telephone [facility] Cancer Care Marlys Griffiths UPDATE (MRI) at [facility] , MBBS Oncology [address] [facility] [address] [place] [address] [place] [address] [phone] Social History Tobacco Use Types Packs/Day Years Used Date Smoking Tobacco: Never Smokeless Tobacco: Never Alcohol Use Standard Drinks/Week Comments Yes 0 (1 standard drink = 0.6 oz pure alcoho l) rare occasions (1 per month) Sex Assigned at Date Recorded Not on file documented as of this encounter Nursing Notes Renay Karimi, RN - 12/13/2017 11:00 AM CDT 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 [facility] called regarding patient's recent MRI. Patient had MRI scan done without contrast. Patient still needed to come in to have it done with contrast. Patient's is refusing at this time. He stated that she already completed this and it is too hard to get her to do it again. Please advise. Thanks. documented in this encounter Plan of Treatment Not on filedocumented as of this encounter Visit Diagnoses Not on filedocumented in this encounter Care Teams Candy Bar Attendant Relationship Specialty Start Date End Date Allyson Pool PA-C PCP - General Physician Behavioral Science Chair 09/26/16 02/28/21 [address] [place] [address] Erin ESCALANTE Master Ocean Yacht 10/24/17 BORIS Desir [phone] documented as of this encounter
--- OUTSIDE RECORDS SUMMARY | 2022-02-21 10:28 | XMS_ITS | Encounter Summary ---
:1935 Author Organization [facility] Address [address], [place] [address] Care Team Providers Name Role Phone Allyson Pool PA-C Primary Care Provider Reason for Visit Reason Comments Refill Encounter Details Date Type Department Care Team Description 12/02/2017 Refill Specialty Center 3931 Norberto Aldridge MD Refill Neurology 3931 [facility] [address] [place] [phone] (Wo rk) Social History Tobacco Use Types [...] on filedocumented in this encounter Care Teams Business Operations Consultant Relationship Specialty Start Date End Date Allyson Pool PA-C PCP - General Physician Administrative Dietitian 09/26/16 02/28/[address] [place] [address] Erin ESCALANTE Machine Feeder Raw Stock 10/24/17 BORIS Desir [phone] documented as of this encounter
--- OUTSIDE RECORDS SUMMARY | 2022-02-21 10:28 | XMS_ITS | Encounter Summary ---
:1935 Author Organization [facility] Address [address] [place] [address] Care Team Providers Name Role Phone Stephanie Pool PA-C Primary Care Provider Reason for Visit Reason Comments Refill rosuvastatin (CRESTOR) 40 MG tablet [Pharmacy Med Name: ROSUVASTATIN 40MG TABLETS] Encounter Details Date Type Department Care Team Description 10/29/2017 Refill [facility] Stephanie Pool PA-C Refill (rosuvastatin Medicine [address] (CRESTOR) 40 MG tablet [address] [place] [address] [Pharmacy Med Name: [place] [address] ROSUVASTATIN 40MG [phone] TABLETS]) Social History Tobacco Use Types Packs/Day Years Used Date Smoking Tobacco: Never Smokeless Tobacco: Never Alcohol Use Standard Drinks/Week Comments Yes 0 (1 standard drink = 0.6 oz pure alcoho l) rare occasions (1 per month) Sex Assigned at Date Recorded Not on file documented as of this encounter Nursing Notes Binta Centeno, RN - 11/02/2017 2:20 PM CDT Further Assistance Needed on Refill from Clinician RN reviewed. Signed order needed. Requested medication listed as historical Last qualifying visit: 08/22/2017 (with STEPHANIE POOL) Next scheduled visit: None Review pended order for accuracy. Sign if appropriate. Document if appointment is needed for furtherrefills. Route to care team to notify patient if needed. Requested Prescriptions Pending Prescriptions Disp Refills ??? rosuvastatin (CRESTOR) 40 MG tablet 90 Tab 3 Sig: Take 1 Tab by mouth daily. Refused Prescriptions Disp Refills ??? rosuvastatin (CRESTOR) 40 MG tablet [Pharmacy Med Name: ROSUVASTATIN 40MG TABLETS] 90 Tab 3 Sig: TAKE 1 TABLET BY MOUTH DAILY Refused By: BINTA CENTENO Reason for Refusal: Refill Not Appropriate Interface, Out Surescripts Prov Query - 10/29/2017 6:02 PM CDT rosuvastatin (CRESTOR) 40 MG tablet [Pharmacy Med Name: ROSUVASTATIN 40MG TABLETS] Medication started: 07/11/2016 Last ordered by UNKNOWN, PHYSICIAN: 09/30/2017 (29 days ago as Historical on 09/30/2017 by DALTON GREY), Sig: take 40 mg by mouth daily. (changed) -> This medication may not have been authorized by the requested provider. -> The requested medication was previously set to Historical. -> The requested sig has changed from the last order. -> Refill x 12 months, qty: 90, refills: 3 (until due for an office visit) Last qualifying visit: 08/22/2017 (with STEPHANIE POOL) Next scheduled visit: None Powered by [employer], Reference: [id number], 10/29/2017 6:02:47 PM CDT, Pool: LIBRADO HERNANDEZ REFILL ([id number]) documented in this encounter Plan of Treatment Not on filedocumented as of this encounter Visit Diagnoses Diagnosis Hyperlipidemia, unspecified hyperlipidem ia type (HRC) documented in this encounter Care Teams Chemical Dependency Therapist Relationship Specialty Start Date End Date Stephanie Pool PA-C PCP - General Physician Transportation Engineering Technician 09/26/16 02/28/[address] [place] [address] Erin ESCALANTE Cro 10/24/17 BORIS Desir [phone] documented as of this encounter
--- OUTSIDE RECORDS SUMMARY | 2022-02-21 10:28 | XMS_ITS | Encounter Summary ---
:1935 Author Organization [employer] Address [address] [place] [address] Care Team Providers Name Role Phone Allyson Pool PA-C Primary Care Provider Reason for Visit Reason Comments FOLLOW-UP, TEST RESULTS Encounter Details Date Type Department Care Team Description 11/01/2017 Telephone [facility] Allyson Pool PA-C FOLLOW-UP, TEST Medicine [address] [facility] RESULTS [address] [place] [address] [place] [address] [phone] Social History Tobacco Use Types Packs/Day Years Used Date Smoking Tobacco: Never Smokeless Tobacco: Never Alcohol Use Standard Drinks/Week Comments Yes 0 (1 standard drink = 0.6 oz pure alcoho l) rare occasions (1 per month) Sex Assigned at Date Recorded Not on file documented as of this encounter Nursing Notes Allyson Pool PA-C - 11/04/2017 10:10 AM CDT Spoke to patient's . Needs a letter reiterating what neurology has already written. Letter will be mailed to their house. Allyson Pool PA-C 10:10 AM 11/04/2017 Doreen Hernandez - 11/01/2017 3:23 PM CDT Forms & Letters What form/letter are you requesting? Pt needs letter from PCP in regards to her state of dementia in January of 2017. Pt is refinancingtheir home and it's required that she have this so they know she was capable of making those decisions. This letter/other is needed from: ANGELINA Zhang How would you like to receive your completed letter/other? avionics shop supervisor at the clinic Additional comments (related to the above concern): [...] on filedocumented in this encounter Care Teams Aeronautical Research Engineer Relationship Specialty Start Date End Date Allyson Pool PA-C PCP - General Physician Cake Puncher 09/26/16 02/28/[address] [place] [address] Erin ESCALANTE Investment Accounting Clerk 10/24/17 BORIS Desir [phone] documented as of this encounter
--- OUTSIDE RECORDS SUMMARY | 2022-02-21 10:28 | XMS_ITS | Encounter Summary ---
:1935 Author Organization [employer] Address [address] [place] [address] Care Team Providers Name Role Phone Allyson Pool PA-C Primary Care Provider Reason for Visit Reason Comments Future Appointments Routine Physical Encounter Details Date Type Department Care Team Description 06/04/2018 Telephone [facility] Allyson Pool PA-C Future Appointments Medicine [address] [facility] (Routine Physical) [address] [place] [address] [phone] (Wo rk) Social History Tobacco Use Types Packs/Day Years Used Date Smoking Tobacco: Never Smokeless Tobacco: Never Alcohol Use Standard Drinks/Week Comments Yes 0 (1 standard drink = 0.6 oz pure alcoho l) rare occasions (1 per month) Sex Assigned at Date Recorded Not on file documented as of this encounter Nursing Notes Estrella Vann LPN - 06/04/2018 12:15 PM CST I called and spoke to pt and notified her that we received paperwork that triggered us to review andsee that she is due for her routine annual physical. Pt verbalized understanding and said that she will schedule soon. ESS AND WELLNESS INSTRUCTOR documented in this encounter Plan of Treatment Not on filedocumented as of this encounter Visit Diagnoses Not on filedocumented in this encounter Care Teams Vice President Of Nursing Relationship Specialty Start Date End Date Allyson Pool PA-C PCP - General Physician Roof Truss Machine Tender 09/26/16 02/28/[address] [place] [address] Erin ESCALANTE Sales And Marketing Executive 10/24/17 BORIS Desir [phone] Fatou Haile Sales And Marketing Executive 06/03/18 documented as of this encounter
--- OUTSIDE RECORDS SUMMARY | 2022-02-21 10:28 | XMS_ITS | Encounter Summary ---
:1935 Author Organization [employer] Address [address] [place] [address] Care Team Providers Name Role Phone Allyson Pool PA-C Primary Care Provider Encounter Details Date Type Department Care Team Description 12/09/2017 Lab Visit [facility] Thyroid nodule [address] [place] [address] Social History Tobacco Use Types Packs/Day Years Used Date Smoking Tobacco: Never Smokeless Tobacco: Never Alcohol Use Standard Drinks/Week Comments Yes 0 (1 standard drink = 0.6 oz pure alcoho l) rare occasions (1 per month) Sex Assigned at Date Recorded Not on file documented as of this encounter Progress Notes Allyson Pool PA-C - 12/09/2017 4:13 PM CDT Letter sent reminding patient to schedule her thyroid ultrasound. Allyson Pool PA-C 4:13 PM 12/09/2017 documented in this encounter Plan of Treatment Not on filedocumented as of this encounter Procedures Procedure Name Priority Date/Time Associated Diagnosis Comme nts TSH, SENSITIVE Routine 12/09/2017 10:48 AM Thyroid nodule Resu lts for this (WITH REFLEX) CDT procedure are in the results section. documented in this encounter Results TSH with Free T4 (if TSH Abnormal) (12/09/2017 10:48 AM CDT) P athologist Signature Thyroid 1.38 0.30 - PN SOFT Stimulating 4.50 Hormone uIU/mL Specimen Anatomical Collection Method Collection Time Receive d Time (Source) Location / / Volume Laterality 12/09/2017 10:48 12/09/2017 AM CDT 12:53 PM CDT Narrative PN SOFT - 12/09/2017 1:47 PM CDT Performed at [facility], [address] [place] [address] CLIA number [id number] Allyson Pool PA-C LAB_1 Performing Organization Address City/State/ZIP Code Phon e Number PN SOFT [address] [place] [address] [phone] documented in this encounter Visit Diagnoses Diagnosis Thyroid nodule (HRC) Nontoxic uninodular goiter documented in this encounter Care Teams Bellhop Captain Relationship Specialty Start Date End Date Allyson Pool PA-C PCP - General Physician Medical Assistant Dermatology 09/26/16 02/28/21 [address] [place] [address] Erin ESCALANTE Metal Leaf Layer 10/24/17 BORIS Desir [phone] documented as of this encounter
--- OUTSIDE RECORDS SUMMARY | 2022-02-21 10:28 | XMS_ITS | Encounter Summary ---
:1935 Author Organization [employer] Address [address] [place] [address] Care Team Providers Name Role Phone Allyson Pool PA-C Primary Care Provider Encounter Details Date Type Department Care Team Description 11/25/2017 Notes/Orders [facility] Marlys Barboza [address] [place] [address] [address] [facility] S [phone] [facility] N [address] (Wo rk) Social History Tobacco Use Types Packs/Day Years Used Date Smoking Tobacco: Never Smokeless Tobacco: Never Alcohol Use Standard Drinks/Week Comments Yes 0 (1 standard drink = 0.6 oz pure alcoho l) rare occasions (1 per month) Sex Assigned at Date Recorded Not on file documented as of this encounter Progress Notes Ginger Flores RN - 11/25/2017 1:41 PM CDT Addended by: GINGER FLORES on: 12/25/2019 10:56 AM Modules accepted: Orders documented in this encounter Plan of Treatment Not on filedocumented as of this encounter Visit Diagnoses Not on filedocumented in this encounter Care Teams Marble Polisher Hand Relationship Specialty Start Date End Date Allyson Pool PA-C PCP - General Physician Dial Printer 09/26/16 02/28/21 [address] [place] [address] Erin ESCALANTE Supervisory Training Specialist 10/24/17 BORIS Desir [phone] Fatou Haile Supervisory Training Specialist 06/03/18 mauri ESCALANTE Resource Management Planner 05/28/19 documented as of this encounter
--- OUTSIDE RECORDS SUMMARY | 2022-02-21 10:28 | XMS_ITS | Encounter Summary ---
:1935 Author Organization [employer] Address [address] [place] [address] Care Team Providers Name Role Phone Allyson Pool PA-C Primary Care Provider Reason for Visit Reason Comments LETTER NEEDED Encounter Details Date Type Department Care Team Description 11/27/2017 Telephone [facility] Allyson Pool PA-C LETTER NEEDED Medicine [address] [facility] [address] [place], [place] [address] [place] [address] [phone] Social History Tobacco Use Types Packs/Day Years Used Date Smoking Tobacco: Never Smokeless Tobacco: Never Alcohol Use Standard Drinks/Week Comments Yes 0 (1 standard drink = 0.6 oz pure alcoho l) rare occasions (1 per month) Sex Assigned at Date Recorded Not on file documented as of this encounter Nursing Notes Estrella Vann LPN - 11/28/2017 7:54 AM CDT I called and spoke to pt's emergency contact Onel Armendariz and notified her that I have faxed the letterrequested to number listed in documentation below. I confirmed the fax # and asked if she wanted me to mail a copy of the letter to the pt. Onel said that would be wonderful that way she will have copyof her own if needed. Estrella Vann LPN - 11/28/2017 7:48 AM CDT I faxed the letter requested to Onel herbert's emergency contact. Allyson Pool PA-C - 11/28/2017 7:11 AM CDT Please fax my last letter. Thanks Allyson Pool PA-C 11/28/2017, 7:11 AM Margareth Regan - 11/27/2017 2:48 PM CDT Miscellaneous Questions & FYI's - Question/Concern What is your question or concern? Caller is f/up on a letter request for a [employer] Please see previous notes. Caller states that she has not received the fax. She'd like to have that letter re faxed to her at [phone] fax- Attn: Onel Is it okay to leave a detailed message on your voicemail? Yes (Advise caller that the PN call back number will end with [phone] or unknown) Please route to: Appropriate pool per call routing grid documented in this encounter Plan of Treatment Not on filedocumented as of this encounter Visit Diagnoses Not on filedocumented in this encounter Care Teams Assistant Professor Of Physics Relationship Specialty Start Date End Date Allyson Pool PA-C PCP - General Physician Service Or Work Dispatcher 09/26/16 02/28/[address] [place] [address] Erin ESCALANTE Folder Seamer Automatic 10/24/17 OBRIS Desir [phone] documented as of this encounter
--- OUTSIDE RECORDS SUMMARY | 2022-02-21 10:28 | XMS_ITS | Encounter Summary ---
:1935 Author Organization [employer] Address [address] [place] [address] Care Team Providers Name Role Phone Allyson Pool PA-C Primary Care Provider Reason for Visit Reason Comments Medication Problems Encounter Details Date Type Department Care Team Description 11/08/2017 Telephone [facility] Allyson Pool PA-C Medication Problems Medicine [address] [facility] [address] [place] [address] [phone] Social History Tobacco Use Types Packs/Day Years Used Date Smoking Tobacco: Never Smokeless Tobacco: Never Alcohol Use Standard Drinks/Week Comments Yes 0 (1 standard drink = 0.6 oz pure alcoho l) rare occasions (1 per month) Sex Assigned at Date Recorded Not on file documented as of this encounter Nursing Notes Alicia Flowers, MICHI - 11/08/2017 11:18 AM CDT Pt's calling Allyson Pool back to tell her he threw away pt's Paroxetine. She is taking Sertraline. He checked with patient's insurance, the Shingles vaccine is covered. Iman Burleson - 11/08/2017 11:13 AM CDT Miscellaneous Questions & FYI's - Question/Concern What is your question or concern? Pt states he is calling back and would like to speak to nurse. Is it okay to leave a detailed message on your voicemail? Yes (Advise caller that the PN call back number will end with [phone] or unknown) Please route to: Appropriate pool per call routing grid documented in this encounter Plan of Treatment Not on filedocumented as of this encounter Visit Diagnoses Not on filedocumented in this encounter Care Teams Bridge/Structure Inspection Team Leader Relationship Specialty Start Date End Date Allyson Pool PA-C PCP - General Physician Supervisor Fur Dressing 09/26/16 02/28/21 [address] [place] [id number] Erin ESCLAANTE Records Management Director 10/24/17 BORIS Desir [phone] documented as of this encounter
--- OUTSIDE RECORDS SUMMARY | 2022-02-21 10:29 | XMS_ITS | Encounter Summary ---
:1935 Author Organization [employer] Address [address] [place] [address] Care Team Providers Name Role Phone Allyson Pool PA-C Primary Care Provider Encounter Details Date Type Department Care Team Description 10/02/2017 Lab Visit [facility] Monoclonal gammopathy [facility] [address] [facility] [place] [address] electrophoresis [phone] Social History Tobacco Use Types Packs/Day Years [...] Name Priority Date/Time Associated Diagnosis Comme nts FREE LIGHT CHAINS, STAT 10/02/2017 1:32 Monoclonal gammopat hy Results for this SERUM PM CDT present on serum procedure a re in protein electrophoresis the results section. CREATININE / GFR STAT 10/02/2017 1:32 Monoclonal gammopathy Results for this PM CDT present on serum procedure a re in protein electrophoresis the results section. COMPLETE BLOOD STAT 10/02/2017 1:32 Monoclonal gammopathy R esults for this COUNT-W/DIFF PM CDT present on serum procedure a re in protein electrophoresis the results section. DIFFERENTIAL STAT 10/02/2017 1:32 Results for this PM CDT procedure are i n the results section. PROTEIN ELP (SERUM) STAT 10/02/2017 1:32 Monoclonal gammopa thy Results for this PM CDT present on serum procedure a re in protein electrophoresis the results section. AST STAT 10/02/2017 1:32 Monoclonal gammopathy Res ults for this PM CDT present on serum procedure a re in protein electrophoresis the results section. CALCIUM STAT 10/02/2017 1:32 Monoclonal gammopathy Res ults for this PM CDT present on serum procedure a re in protein electrophoresis the results section. BILIRUBIN, TOTAL STAT 10/02/2017 1:32 Monoclonal gammopathy Results for this PM CDT present on serum procedure a re in protein electrophoresis the results section. ALKALINE STAT 10/02/2017 1:32 Monoclonal gammopathy Res ults for this PHOSPHATASE, TOTAL PM CDT present on serum proce dure are in protein electrophoresis the results section. documented in this encounter Results Differential (10/02/2017 1:32 PM CDT) athologist Signature Absolute 3.5 1.8 - 8.0 PN SOFT Neutrophils k/cmm Absolute 3.2 1.1 - 4.0 PN SOFT Lymphocytes k/cmm Absolute 0.6 0.2 - 0.8 PN SOFT Monocytes k/cmm Absolute 0.1 0.0 - 0.5 PN SOFT Eosinophils k/cmm Absolute 0.1 0.0 - 0.2 PN SOFT Basophils k/cmm Immature 0.3 0.0 - 0.5 PN SOFT Granulocytes % Specimen Anatomical Collection Method Collection Time Receive d Time (Source) Location / / Volume Laterality 10/02/2017 1:32 PM 8 1:32 CDT PM CDT Narrative PN SOFT - 10/02/2017 1:35 PM CDT Performed at [facility], [address] [place] [address] CLIA number [id number] M[facility] Performing Organization Address City/State/ZIP Code Phon e Number PN SOFT [address] [place], [place] [address] [phone] (ABNORMAL) Electrophoresis Protein, Serum - in 4 months (10/02/2017 1:32 PM CDT) athologist Signature Total Protein 6.8 6.4 - 8.3 PN SOFT g/dl Comment: Performed at [facility], [address] [place] [address] ??[id number] Albumin 3.8 3.4 - 4.8 g/dl PN SOFT Alpha 1 0.3 0.2 - 0.5 g/dl PN SOFT Alpha 2 0.8 0.5 - 1.1 g/dl PN SOFT Beta 0.7 0.6 - 1.1 g/dl PN SOFT Gamma 1.2 0.7 - 1.6 g/dl PN SOFT Monoclonal Joaquin 0.5 (H) 0.0 g/dl PN SOFT Comment: IgG [place] Interpretation SEE BELOW PN SOFT Comment: A monoclonal protein has been detected b y serum protein electrophoresis. Signed out by SEE BELOW PN SOFT Comment: [facility] Performed at [address] ??[address] CLIA Number [id number] Specimen Anatomical Collection Method Collection Time Receive d Time (Source) Location / / Volume Laterality 10/02/2017 1:32 PM 8 6:17 CDT PM CDT Marlys Luna [facility]_1 Performing Organization Address City/[facility] Phon e Number PN SOFT [address] [place], [place] [address] [phone] (ABNORMAL) Free Light Chains, Serum - in 4 months (10/02/2017 1:32 PM CDT) P athologist Signature [place] Free 2.73 (H) 0.33 - PN SOFT Light Chains 1.94 mg/dl Lambda Free 1.59 0.57 - PN SOFT Light Chains 2.63 mg/dl [place]/Lambda 1.72 (H) 0.26 - PN SOFT Ratio Free 1.65 Light Chains Comment: Performed at [facility], [address] [place] [address] ??[id number] CLIA Number [id number] Specimen Anatomical Collection Method Collection Time Receive d Time (Source) Location / / Volume Laterality 10/02/2017 1:32 PM 8 6:12 CDT PM CDT [facility] Performing Organization Address [facility]/ZIP Code Phon e Number PN SOFT [address] [place] [address] Creatinine / GFR (10/02/2017 1:32 PM CDT) athologist Signature Creatinine Serum 0.80 0.55 - PN SOFT 1.02 mg/dL Est GFR >60 >60 PN SOFT Am mL/min/1.7 3m2 Est GFR Non-Afr >60 >60 PN SOFT Am mL/min/1.7 3m2 Comment: Normal>60, moderate decrease 30 - 59, se lydia decrease 15 - 29, renal failure <15 mL/min/1.73 m2 NOTE: ??Choose the eGFR result above apolonia ropriate for the race of the patient. Specimen Anatomical Collection Method Collection Time Receive d Time (Source) Location / / Volume Laterality 10/02/2017 1:32 PM 8 1:32 CDT PM CDT Narrative PN SOFT - 10/02/2017 1:49 PM CDT Performed at [facility], [address] [place] [address] CLIA number [id number] [facility] Performing Organization Address City/[facility] Code Phon e Number PN SOFT [address] [place] [address] Bilirubin, Total (10/02/2017 1:32 PM CDT) athologist Signature Bilirubin Total 1.0 0.2 - 1.2 PN SOFT mg/dL Specimen Anatomical Collection Method Collection Time Receive d Time (Source) Location / / Volume Laterality 10/02/2017 1:32 PM 8 1:32 CDT PM CDT Narrative PN SOFT - 10/02/2017 1:49 PM CDT Performed at [facility], [facility] [address] [place] [id number] CLIA number [id number] [facility] Performing Organization Address City/[facility]/ZIP Code Phon e Number PN SOFT [address] [place] [address] Calcium (10/02/2017 1:32 PM CDT) P athologist Signature Calcium 9.2 8.4 - 10.4 PN SOFT mg/dL Specimen Anatomical Collection Method Collection Time Receive d Time (Source) Location / / Volume Laterality 10/02/2017 1:32 PM 8 1:32 CDT PM CDT Narrative PN SOFT - 10/02/2017 1:49 PM CDT Performed at [facility], [address] [place] [address] CLIA number [id number] [facility] Performing Organization Address [facility] Phon e Number PN SOFT [address] [place] [address] AST (10/02/2017 1:32 PM CDT) Patholo gist Method Time Signature Aspartate 20 10 - 40 PN SOFT Aminotransferase U/L Specimen Anatomical Collection Method Collection Time Receive d Time (Source) Location / / Volume Laterality 10/02/2017 1:32 PM 8 1:32 CDT PM CDT Narrative PN SOFT - 10/02/2017 1:49 PM CDT Performed at [facility], [address] [place] [address] CLIA number [id number] [facility] Performing Organization Address [facility] Phon e Number PN SOFT [address] [place] [address] Alkaline Phosphatase, Total (10/02/2017 1:32 PM CDT) P athologist Signature Alk Phos 53 40 - 150 U/L PN SOFT Specimen Anatomical Collection Method Collection Time Receive d Time (Source) Location / / Volume Laterality 10/02/2017 1:32 PM 8 1:32 CDT PM CDT Narrative PN SOFT - 10/02/2017 1:49 PM CDT Performed at [facility], [address] [place] [address] CLIA number [id number] [facility] Performing Organization Address City/[facility]/ZIP Code Phon e Number PN SOFT [address] [place] [address] Complete Blood Count W/Diff - in 4 months (10/02/2017 1:32 PM CDT) athologist Signature White Blood Cell 7.5 3.8 - 11.0 PN SOFT Count k/cmm Red Blood Cell 4.42 3.70 - PN SOFT Count 5.20 m/cmm Hemoglobin 13.2 11.8 - PN SOFT 15.5 g/dL Hematocrit 40.3 35.0 - PN SOFT 46.0 % Mean Corpuscular 91.2 80.0 - PN SOFT Volume 100.0 fL RDW 15.0 11.0 - PN SOFT 15.0 % Platelet Count 183 140 - 450 PN SOFT k/cmm Specimen Anatomical Collection Method Collection Time Receive d Time (Source) Location / / Volume Laterality 10/02/2017 1:32 PM 8 1:32 CDT PM CDT Narrative PN SOFT - 10/02/2017 1:35 PM CDT Performed at [facility], [address] [place] [address] CLIA number [id number] Marlys Teresa [facility] Performing Organization Address City/[facility] Phon e Number PN SOFT [address] [place] [address] [phone] documented in this encounter Visit Diagnoses Diagnosis Monoclonal gammopathy present on serum p rotein electrophoresis (HRC) documented in this encounter Care Teams Flask Handler Relationship Specialty Start Date End Date Allyson Pool PA-C PCP - General Physician Hemming And Tacking Machine Operator 09/26/16 02/28/[address] [place] [address] documented as of this encounter
--- OUTSIDE RECORDS SUMMARY | 2022-02-21 10:29 | XMS_ITS | Encounter Summary ---
:1935 Author Organization [employer] Address [address] [place] [address] Care Team Providers Name Role Phone Allyson Pool PA-C Primary Care Provider Reason for Referral Therapies (Routine) - Closed Specialty Diagnoses / Procedures Referred By Contact Refer red To Contact Diagnoses Radiculopathy of cervical region H/O cervical spine surgery Abnormal gait Myeloradiculopathy Allyson Pool PA-C [address] [place] [address] Referral ID Status Reason Start Date Expiration Date Visits Requ ested Visits Authorized [id number] Closed 08/22/2017 10/21/2017 1 1 Scheduling Instructions Your provider has recommended an appoint ment with [facility]. You may call [phone] to schedule [facility] appointment. If you do not schedule an appointment within the next 1 to 3 busin ess days, we will call you to help arrange your appointment. We suggest you call [facility] health insurance company about your coverage and benefits for this appointme nt. herapies (Routine) - Closed Specialty Diagnoses / Procedures Referred By Contact Refer red To Contact Diagnoses Radiculopathy of cervical region H/O cervical spine surgery Abnormal gait Myeloradiculopathy Allyson Pool PA-C [address] [place] [id number] Referral ID Status Reason Start Date Expiration Date Visits Requ ested Visits Authorized [id number] Closed 08/22/2017 10/21/2017 1 1 Scheduling Instructions Your provider has recommended an appoint ment with [facility]. You may call [phone] to schedule your a ppointment. If you do not schedule an appointment within the next 1 to 3 busin ess days, we will call you to help arrange your appointment. We suggest you call [employer] about your coverage and benefits for this appointme nt. Reason for Visit Reason Comments Orders Needed Encounter Details Date Type Department Care Team Description 08/21/2017 Telephone [facility] Allyson Pool PA-C Orders Needed Medicine [address] [facility] [address] [place] [address] [place] [address] [phone] Social History Tobacco Use Types Packs/Day Years Used Date Smoking Tobacco: Never Smokeless Tobacco: Never Alcohol Use Standard Drinks/Week Comments Yes 0 (1 standard drink = 0.6 oz pure alcoho l) rare occasions (1 per month) Sex Assigned at Date Recorded Not on file documented as of this encounter Nursing Notes Estrella Vann LPN - 08/22/2017 10:26 AM CDT I called Sonia: [facility] and notified her that Allyson Pool PA-C put in ordered for PT and OT. I instructed her that these orders were listed as in department so if the order needs to be different she needs to call [phone] to request the appropriate orders. If this is correct I instructed Sonia to call [phone] to set the first and follow-up appointments for pt. Allyson Pool PA-C - 08/22/2017 7:13 AM CDT PT and OT orders placed. Can we make sure she has the phone numbers for scheduling. Allyson Pool PA-C 08/22/2017, 7:14 AM Jamila Lassiter, RN - 08/21/2017 11:58 AM CDT Reason for Call: New order requested. Next Steps: Document further recommendations and route to appropriate person or pool. Caller IS expecting a call back from Care Team. Additional Information: please advise. Kajal Finley - 08/21/2017 10:27 AM CDT Lab/Radiology Requests Primary Care Provider: Allyson Pool PA-C What test is needed and when? PT and OT Why is test needed/requested? Recovering from neck surgery *If symptom related, send to triage If needed, what is the best time for a call back? Anytime Ok to leave detailed confidential message? Yes please call and advise. Advise PN call back number will end with [phone] documented in this encounter Plan of Treatment Scheduled Referrals Name Type Priority Associated Diagnoses Order S [facility] Physical Therapy Referral Routine Radiculopathy of cervica l Ordered: 08/22/2017 region H/O cervical spi ne surgery Abnormal gait Myeloradiculopathy Occupational Therapy Referral Routine Radiculopathy of cer vical Ordered: 08/22/2017 region H/O cervical spi ne surgery Abnormal gait Myeloradiculopathy documented as of this encounter Visit Diagnoses Diagnosis Radiculopathy of cervical region - Prima ry Brachial neuritis or radiculitis nos H/O cervical spine surgery Personal history of surgery to other org ans Abnormal gait Abnormality of gait Myeloradiculopathy 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
--- OUTSIDE RECORDS SUMMARY | 2022-02-21 10:29 | XMS_ITS | Encounter Summary ---
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) Marlys Barboza Procedures NM PET/CT Skull Base To Mid Thigh MILADIS Moore [address] [place], [place] [address] Referral ID Status Reason Start Date Expiration Date Visits V isits Requested Authorized [id number] Incomplete 10/22/2017 01/21/2019 6 6 Encounter Details Date Type Department Care Team Description 10/22/2017 Notes/Orders [facility] Margarita Luna MGUS (monoclonal [address] [place]AD[place] [address] [address] [facility]) [phone] S (Primary Dx) [place] [address] (Wo rk) Social History Tobacco Use Types Packs/Day Years Used Date Smoking Tobacco: Never Smokeless Tobacco: Never Alcohol Use Standard Drinks/Week Comments Yes 0 (1 standard drink = 0.6 oz pure alcoho l) rare occasions (1 per month) Sex Assigned at Date Recorded Not on file documented as of this encounter Progress Notes Marlys Barboza MBBS - 10/22/2017 11:51 AM CDT Please arrange PET scan and will call with results, already s/w pt today Trixie Bennett - 10/22/2017 11:51 AM CDT Pet scan scheduled documented in this encounter Plan of Treatment Not on filedocumented as of this encounter Results NM PET/CT Skull Base [...] of the calvarium is not included in [id number] and thus the calvarial lesions noted on [...] of the calvarium is not included in [id number]. Mild hypermetabolic activity at the right lob [...] of the calvarium is not included in [id number] and thus the calvarial lesions noted on brain MRI are not evaluated on this exam. M[facility] NM documented in this encounter Visit Diagnoses Diagnosis MGUS (monoclonal gammopathy of unknown s ignificance) (HRC) - Primary Monoclonal paraproteinemia MGUS (monoclonal gammopathy of unknown s ignificance) (HRC) Monoclonal paraproteinemia documented in this encounter Care Teams Entry Level Installation Technician Relationship Specialty Start Date End Date Allyson Pool PA-C PCP - General Physician Automobile Sales Representative 09/26/16 02/28/21 [address] [place] [address] documented as of this encounter
--- OUTSIDE RECORDS SUMMARY | 2022-02-21 10:29 | XMS_ITS | Encounter Summary ---
:1935 Author Organization [employer] Address [address] [place] [address] Care Team Providers Name Role Phone Allyson Pool PA-C Primary Care Provider Reason for Visit Reason Comments UPDATE Encounter Details Date Type Department Care Team Description 09/30/2017 Telephone [facility] [address] Phuong Vogel APRN, UPDATE Neurosurgery MANAGER INTERNATIONAL [address] [facility] [address] [place] [address] [place], [place] [id number] (Wo rk) Social History Tobacco Use Types Packs/Day Years Used Date Smoking Tobacco: Never Smokeless Tobacco: Never Alcohol Use Standard Drinks/Week Comments Yes 0 (1 standard drink = 0.6 oz pure alcoho l) rare occasions (1 per month) Sex Assigned at Date Recorded Not on file documented as of this encounter Nursing Notes Lynda Anderson RN - 10/01/2017 2:55 PM CDT Patient verbalizes understanding and will follow up as previously scheduled. Phuong Vogel APRN, MANAGER INTERNATIONAL - 09/30/2017 4:11 PM CDT Attempted to leave message that todays cervical xrays look good. We will plan to see her back in 3 months with repeat imaging. Will ask nursing to reach out tomorrow and update with results. documented in this encounter Plan of Treatment Not on filedocumented as of this encounter Visit Diagnoses Not on filedocumented in this encounter Care Teams Shellfish Dredge Operator Relationship Specialty Start Date End Date Allyson Pool PA-C PCP - General Physician Meter/Relay Technician 09/26/16 02/28/21 [address] [place] [address] documented as of this encounter
--- OUTSIDE RECORDS SUMMARY | 2022-02-21 10:29 | XMS_ITS | Encounter Summary ---
:1935 Author Organization [employer] Address [address] [place] [address] Care Team Providers Name Role Phone Allyson Pool PA-C Primary Care Provider Reason for Visit Reason Comments Paperwork Encounter Details Date Type Department Care Team Description 09/09/2017 Telephone [facility] Allyson Pool PA-C Paperwork Medicine [address] [place] [address] [place] [address] [phone] Social History Tobacco Use Types Packs/Day Years Used Date Smoking Tobacco: Never Smokeless Tobacco: Never Alcohol Use Standard Drinks/Week Comments Yes 0 (1 standard drink = 0.6 oz pure alcoho l) rare occasions (1 per month) Sex Assigned at Date Recorded Not on file documented as of this encounter Nursing Notes Estrella Vann LPN - 09/09/2017 4:42 PM CDT I faxed what paperwork I felt comfortable with. I called Viktoriya and notified her that I sent over whatI could and if there was any other or additional information that was needed she will need to contact HIM. I put the phone number [phone] ans fax number [phone] on the cover page so she has them if needed. Viktoriya verbalized understanding and appreciation for getting back to her. Jamila Lassiter RN - 09/09/2017 4:00 PM CDT Will route to DA to advise. Vonnie Duarte - 09/09/2017 3:52 PM CDT Caller is requesting a copy of pt's most recent History and Physical to fax : [phone]. Attn: Viktoriya. documented in this encounter Plan of Treatment Not on filedocumented as of this encounter Visit Diagnoses Not on filedocumented in this encounter Care Teams Perinatal Educator Relationship Specialty Start Date End Date Allyson Pool PA-C PCP - General Physician Dermatology Technician 09/26/16 02/28/21 [address] [place] [address] documented as of this encounter
--- OUTSIDE RECORDS SUMMARY | 2022-02-21 10:29 | XMS_ITS | Encounter Summary ---
:1935 Author Organization [facility] Address [address] [place] [address] [place] [address] Care Team Providers Name Role Phone Allyson Pool PA-C Primary Care Provider Reason for Visit Reason Comments Follow-up Encounter Details Date Type Department Care Team Description 08/20/2017 Office Visit Specialty Center 3931 Phuong Vogel, S/P cervical spinal fusion (Primary Dx); Neurosurgery ZAHEER KUHN Cervical myelopathy (HRC) 3931 [facility]. [address]31 [facility] [place] [address] [phone] (Wo rk) Social History Tobacco Use Types Packs/Day Years Used Date Smoking Tobacco: Never Smokeless Tobacco: Never Alcohol Use Standard Drinks/Week Comments Yes 0 (1 standard drink = 0.6 oz pure alcoho l) rare occasions (1 per month) Sex Assigned at Date Recorded Not on file documented as of this encounter Last Filed Vital Signs Vital Sign Reading Time Taken Comments Blood Pressure 126/75 08/20/2017 2:01 PM CDT Pulse 59 08/20/2017 2:01 PM CDT Temperature - - Respiratory Rate 16 08/20/2017 2:01 PM CDT Oxygen Saturation - - Inhaled Oxygen Concentration - - Weight - - Height - - Body Mass Index - - documented in this encounter Patient Instructions Patient InstructionsPhuong Vogel, ZAHEER KUHN - 08/20/2017 2:00 PM CDT Wean from the brace as follows: Remove for 1 hour in the morning and one hour in the evening. Increase by 1-2 hours in AM and PM every 1-2 days as tolerated. Should be out of the brace completely at the end of 2 weeks. Arrive 30 minutes early for your next appointment and go to [facility] in [place] for xrays. Please call Neurosurgery Triage Line with any questions or concerns at [phone]. Activity: Starting at 10 pounds increase to 15 pounds. Start by increasing lifting by 2 pounds per week. Avoidexcessive overhead movements. Avoid jostled and jarring type activities. Focus on low impact cardiovascular exercising such as recumbent biking. Use low weights higher repetition with increasing lifting. documented in this encounter Progress Notes Phuong Vogel APRN, CNP - 08/20/2017 2:39 PM CDT NAME: FIDELIA LUNDBERG MR#: [id number] CSN: [id number] AUTHENTICATING CLINICIAN: CARLO Carrasquillo CONFIRM #: [id number] LOC: 262 CLINIC PROGRESS NOTE DATE OF VISIT: 08/20/2017 : 1935 Fidelia Lundberg is a 81-year-old female who comes to clinic today for a 6 week postop followup visit. SUBJECTIVE: On July 09, 2017, she underwent an anterior cervical diskectomy at C3-4 and C4-5 for decompression of the spinal cord; interbody arthrodesis at C3-4 and C4- 5 using allograft bone; placement of anterior cervical plate C3 to C5; use of operating microscope. The surgery was performed by Dr. Khoi Hernandez. Preoperatively, the patient was experiencing myeloradiculopathy. In review of her clinic consultation note, dated July 05, 2017, she had difficulty walking, numbness in her hands, weakness in her hands, hyperreflexia, and difficulty raising her arms above her head, mostly the left arm in relation to the right. Today, the patient reports she has since been discharged from the TCU as of Saturday. She is now home and things are going very well. She no longer uses a rolling walker for ambulation as her balance andgait have improved. She still has the numbness in her hands, but she does have improved strength in both of her deltoids. The right arm she can fully abduct it over her head. The left arm she can now bring it up laterally and slightly abduct. Graded strength today is 4/5. She does continue with weakness in her hand. OBJECTIVE: VITAL SIGNS: Blood pressure 126/75, pulse is 59, and respirations are 16. MUSCULOSKELETAL: In the right arm, the patient can fully abduct the right arm over her head. She hasfull strength in the deltoid, biceps, and triceps. She has weakness in the hand grasp and slightly weakened intrinsics. On the left, she can slightly abduct the left arm over her head. She can laterally raise it to approximately 90 degrees and has strength graded at 4/5. She has full strength in the biceps, triceps region. She does have weakness of the left hand grasp and intrinsics. The patient continues to have numbness in her hands. She appears to be walking steadily. She is not using a rolling walker today. IMAGING: AP and lateral cervical films, dated August 20, 2017, show stable alignment of her spine, stable positioning of the instrumentation and the allograft. There are the postsurgical changes of C3-4 and C4-5. I reviewed above imaging and the radiologist's report. ASSESSMENT: 1. Status post C3-4, C4-5 anterior cervical diskectomy and fusion for decompression of the spinal cord. 2. History of cervical myeloradiculopathy. The patient reports being discharged from the TCU as of last Saturday. She is now at home and doing home therapy. She is making nice improvements in regard to the myelopathy that she had prior to surgery. She has improved strength in both of her arms, more so on the right than the left. She is more easily walking with a better gait and no longer using the rolling walker. She does understand the myelopathic symptoms do not fully recover after surgery, but we do not expect them to worsen. She is very pleased that she is experiencing some recovery. Imaging is stable. We discussed activity and when to return to the clinic. RECOMMENDATIONS: 1. Wean out of the cervical collar over the course of a week. Starting at 10 pounds, increase lifting to 15, and add about 2-5 pounds per week. Focus on low impact cardiovascular activity and manager oncology weights with higher repetition when lifting them. 2. Return to clinic in 6 weeks with repeat AP and lateral cervical films, or sooner if needed. Total time spent 30 minutes, with 25 minutes spent in counseling. JL:MEDQ C: CONFIRM #: [id number] Phuong Vogel APRN, CNP - 08/20/2017 2:00 PM CDT Neurosurgery This note has been dictated. Phuong Vogel APRN, CNP,CNRN documented in this encounter Plan of Treatment Not on filedocumented as of this encounter Visit Diagnoses Diagnosis S/P cervical spinal fusion - Primary Arthrodesis status Cervical myelopathy (HRC) Cervical spondylosis with myelopathy documented in this encounter Care Teams Relationship Mgr Relationship Specialty Start Date End Date Allyson Pool PA-C PCP - General Physician Rubber And Plastics Worker 09/26/16 02/28/21 [id number] [place] [id number] documented as of this encounter
--- OUTSIDE RECORDS SUMMARY | 2022-02-21 10:29 | XMS_ITS | Encounter Summary ---
:1935 Author Organization [facility] Address [address] [place] [address] [place] [address] Care Team Providers Name Role Phone Allyson Pool PA-C Primary Care Provider Reason for Visit Reason Comments Appt. Needed Encounter Details Date Type Department Care Team Description 09/26/2017 Telephone [facility] Cancer Care Marlys Griffiths Appt. Needed at [facility] IVA [facility] Oncology [id number] [place] [address] [phone] Social History Tobacco Use Types Packs/Day Years Used Date Smoking Tobacco: Never Smokeless Tobacco: Never Alcohol Use Standard Drinks/Week Comments Yes 0 (1 standard drink = 0.6 oz pure alcoho l) rare occasions (1 per month) Sex Assigned at Date Recorded Not on file documented as of this encounter Nursing Notes Breanne Toledo RN - 09/27/2017 8:53 AM CDT Lab orders updated. Thanks!! Johana Jaffe - 09/27/2017 8:24 AM CDT Lab 10/03 and f/u 10/08 please add new lab orders Keesha Toledo RN - 09/26/2017 4:44 PM CDT Patient is due for follow-up in September 2017. Please see recall & contact patient to schedule. Frontline, please notify nurse when lab appt is scheduled so orders can be changed to correct date. Thanks! documented in this encounter Plan of Treatment Not on filedocumented as of this encounter Visit Diagnoses Not on filedocumented in this encounter Care Teams Process Improvement Consultant Relationship Specialty Start Date End Date Allyson Pool PA-C PCP - General Physician Clocksmith 09/26/16 02/28/21 [address] [place] [id number] documented as of this encounter
--- OUTSIDE RECORDS SUMMARY | 2022-02-21 10:29 | XMS_ITS | Encounter Summary ---
:1935 Author Organization [facility] Address [address] [place] [address] Care Team Providers Name Role Phone Allyson Pool PA-C Primary Care Provider Reason for Referral Procedure/Equipment (Routine) - Incomplete Specialty Diagnoses / Procedures Referred By Contact Refer red To Contact Diagnoses S/P cervical spinal fusion Warner Machado PA-C Procedures XR Cervical Spine 2 Views 3931 [facility] [address] [place], [place] [address] Referral ID Status Reason Start Date Expiration Date Visits V isits Requested Authorized [id number] Incomplete 07/17/2017 01/13/2018 1 1 PER Reason for Visit Reason Comments QUESTIONS, GENERAL Encounter Details Date Type Department Care Team Description 07/17/2017 Telephone Specialty Center 3931 Destin Okeefe, RN, QUESTIONS, GENERAL Neurosurgery BSN 3931 [facility] [address] [place] [phone] Social History Tobacco Use Types Packs/Day Years Used Date Smoking Tobacco: Never Smokeless Tobacco: Never Alcohol Use Standard Drinks/Week Comments Yes 0 (1 standard drink = 0.6 oz pure alcoho l) rare occasions (1 per month) Sex Assigned at Date Recorded Not on file documented as of this encounter Nursing Notes Destin Okeefe, RN, BSN - 07/17/2017 10:52 AM CST [place], nurse at [facility] was calling to find out if patient could have incision assessed by RN atTCU and not come in for 2 week post op check. She reports that incision has not shown any s/s of infection. Nurses at [facility] will contact clinic if there are any concerns about incision, but property underwriter will cancel f/u appt. Order will be sent over for xrays to be done at [facility]. [facility] contact info : [phone]/ fax: [phone]. She will have xray results sent to [facility]. PER documented in this encounter Plan of Treatment Not on filedocumented as of this encounter Visit Diagnoses Diagnosis S/P cervical spinal fusion - Primary Arthrodesis status documented in this encounter Care Teams Irrigation Equipment Mechanic Relationship Specialty Start Date End Date Allyson Pool PA-C PCP - General Physician Ebay Reseller 09/26/16 02/28/21 [address] [place] [id number] documented as of this encounter
--- OUTSIDE RECORDS SUMMARY | 2022-02-21 10:29 | XMS_ITS | Encounter Summary ---
:1935 Author Organization [facility] Address [address] [place] [address] Care Team Providers Name Role Phone Stephanie Pool PA-C Primary Care Provider Reason for Visit Reason Comments Refill triamterene-hydrochlorothiaz ricky (MAXZIDE-25) 37.5-25 MG tablet [Pharmacy Med Name: TRIAMTERENE 37.5MG/ HC TZ 25MG TABS] Encounter Details Date Type Department Care Team Description 10/06/2017 Refill [facility] Stephanie Pool PA-C Refill Medicine [address] [facility] (triamterene-hydrochlor [address] [place] [address] othiazide (MAXZIDE-25) [place] [address] 37.5-25 MG tablet [phone] [Pharmacy Med Name: TRIAMTERENE 37. 5MG/ HCTZ 25MG TABS] ) Social History Tobacco Use Types Packs/Day Years Used Date Smoking Tobacco: Never Smokeless Tobacco: Never Alcohol Use Standard Drinks/Week Comments Yes 0 (1 standard drink = 0.6 oz pure alcoho l) rare occasions (1 per month) Sex Assigned at Date Recorded Not on file documented as of this encounter Nursing Notes Cheryl Og RN - 10/07/2017 12:22 PM CDT Renewed medication per medication refill protocol. Requested Prescriptions Pending Prescriptions Disp Refills triamterene-hydrochlorothiazide (MAXZIDE-25) 37.5-25 MG tablet [Pharmacy Med Name: TRIAMTERENE 37.5MG/ HCTZ 25MG TABS] 45 Tab 2 Sig: TAKE 1/2 TABLET BY MOUTH DAILY Interface, Out Surescripts Prov Query - 10/06/2017 3:05 PM CDT triamterene-hydrochlorothiazide (MAXZIDE-25) 37.5-25 MG tablet [Pharmacy Med Name: TRIAMTERENE 37.5MG/ HCTZ 25MG TABS] Medication started: 09/29/2016 Last ordered by STEPHANIE POOL: 10/05/2016 (366 days ago) QTY: 45, Refills: 3, Sig: take 0.5 tabs by mouth daily. (changed but equivalent) -> Refill x 9 months, qty: 45, refills: 2 (until due for a(n) Na check) Last qualifying visit: 08/22/2017 (with STEPHANIE POOL) Next scheduled visit: None SBP: 118 mm Hg on 08/22/2017 DBP: 60 mm Hg on 08/22/2017 Cr: 0.8 mg/dL on 10/02/2017 Na: 140 mEq/L on 07/08/2017 K: 3.7 mEq/L on 07/09/2017 Powered by [employer], Reference: [id number], 10/06/2017 3:05:53 PM CDT, Pool: LIBRADO HERNANDEZ REFILL ([id number]) documented in this encounter Plan of Treatment Not on filedocumented as of this encounter Visit Diagnoses Diagnosis Essential hypertension (HRC) Unspecified essential hypertension documented in this encounter Care Teams Hand Worker Relationship Specialty Start Date End Date Stephanie Pool PA-C PCP - General Physician Senior Support Analyst 09/26/16 02/28/21 [address] [place] [id number] documented as of this encounter
--- OUTSIDE RECORDS SUMMARY | 2022-02-21 10:29 | XMS_ITS | Encounter Summary ---
:1935 Author Organization [facility] Address [address] [place] [address] Care Team Providers Name Role Phone Allyson Pool PA-C Primary Care Provider Reason for Visit Procedure/Equipment (Routine) - Incomplete Specialty Diagnoses / Procedures Referred By Contact Refer red To Contact Diagnoses S/P cervical spinal fusion Phuong Vogel, TAIL BOARD WORKER, Procedures XR Cervical Spine 2 Views SPACE SCIENCES DIRECTOR 3931 [place], [place] [address] Referral ID Status Reason Start Date Expiration Date Visits V isits Requested Authorized [id number] Incomplete 09/27/2017 12/27/2018 1 1 Encounter Details Date Type Department Care Team Description 09/30/2017 Imaging [facility] 3931 Phuong Vogel, S/P cervical spinal Radiology TAIL BOARD WORKER, SPACE SCIENCES DIRECTOR fusion [address] [place] [address] [id number] (Wo rk) Social History Tobacco Use Types [...] Comme nts XR CERVICAL SPINE 2 Routine 09/30/2017 3:13 PM S/P cervical sp inal Results for this VIEWS CDT fusion procedure are i n the results section. documented in this encounter Results XR Cervical Spine 2 Views (09/30/2017 3:13 PM CDT) Anatomical Region Laterality Modality Spine, C-Spine, Neck Computed Radiograph y Specimen (Source) Anatomical Collection Method Collection Time Re ceived Time Location / / Volume Laterality 09/30/2017 3:03 PM CDT Narrative 09/30/2017 3:59 PM CDT COMPARISON: ??08/20/2017 FINDINGS: ??2 views stable alignment and intact hardware following C3-C5 anterior fusion with interbody allografts. Degenerative changes C5-C7 stable. No subluxation. Procedure Note Clark Amador MD - 09/30/2017Formatti ng of this note might be different from the original. COMPARISON: 08/20/2017 FINDINGS: 2 views stable alignment and i ntact hardware following C3-C5 anterior fusion with interbody allografts. Degenerative changes C5-C7 stable. No subluxation. Phuong Vogel TAIL BOARD WORKER, SPACE SCIENCES DIRECTOR RAD GD documented in this encounter Visit Diagnoses Diagnosis S/P cervical spinal fusion Arthrodesis status documented in this encounter Care Teams Recruitment Assistant Relationship Specialty Start Date End Date Allyson Pool PA-C PCP - General Physician Refrigeration Specialist 09/26/16 02/28/21 [address] [place] [id number] documented as of this encounter
--- OUTSIDE RECORDS SUMMARY | 2022-02-21 10:29 | XMS_ITS | Encounter Summary ---
:1935 Author Organization [facility] Address [address] [place] [address] Care Team Providers Name Role Phone Allyson Pool PA-C Primary Care Provider Reason for Visit Reason Comments Orders Needed Encounter Details Date Type Department Care Team Description 08/22/2017 Telephone [facility] Allyson Pool PA-C Orders Needed Medicine [address] [facility] [address] [place], [place] [address] [place] [address] [phone] Social History Tobacco Use Types Packs/Day Years Used Date Smoking Tobacco: Never Smokeless Tobacco: Never Alcohol Use Standard Drinks/Week Comments Yes 0 (1 standard drink = 0.6 oz pure alcoho l) rare occasions (1 per month) Sex Assigned at Date Recorded Not on file documented as of this encounter Nursing Notes Estrella Vann LPN - 08/22/2017 10:21 AM CDT I called and left a message with [facility] and directed it to Francisco Luis OT approving the verbal order listed below, per Allyson Pool PA-C. I instructed them to call [phone] if they have any questions or concerns. Allyson Pool PA-C - 08/22/2017 9:29 AM CDT Verbal order okayed to continue OT 2X/week for 3 weeks and 1X/week for 1 week. Allyson Pool PA-C 9:29 AM 08/22/2017 Helga Ramos LPN - 08/22/2017 9:18 AM CDT Clinician Action: New Order OT Clinician Next Step: Route to [facility] to follow up and Patient IS expecting a call back fromcare team Specific Request(s): 1. Jovany Luis/OT needs verbal orders for continued OT 2X/week for 3 weeks and 1X/week for 1 week. Please advise. documented in this encounter Plan of Treatment Not on filedocumented as of this encounter Visit Diagnoses Not on filedocumented in this encounter Care Teams Lard Maker Relationship Specialty Start Date End Date Allyson Pool PA-C PCP - General Physician Clinical Informatics Spec 09/26/16 02/28/[id number] [place] [id number] documented as of this encounter
--- OUTSIDE RECORDS SUMMARY | 2022-02-21 10:29 | XMS_ITS | Encounter Summary ---
:1935 Author Organization [facility] Address [address] [place] [address] Care Team Providers Name Role Phone Allyson Pool PA-C Primary Care Provider Reason for Referral Procedure/Equipment (Routine) - Incomplete Specialty Diagnoses / Procedures Referred By Contact Refer red To Contact Diagnoses S/P cervical spinal fusion Warner Machado PA-C Procedures XR Cervical Spine 2 Views 3931 [facility] [address] [place], [place] [address] Referral ID Status Reason Start Date Expiration Date Visits V isits Requested Authorized [id number] Incomplete 08/19/2017 11/18/2018 1 1 Reason for Visit Reason Comments Provider Orders Encounter Details Date Type Department Care Team Description 08/19/2017 Notes/Orders Specialty Center 3931 Destin Okeefe, S/P cervical spinal Neurosurgery RN, BSN fusion (Primary Dx) 3931 [facility]. [address]. [address] [place] [address] [phone] Social History Tobacco Use Types Packs/Day Years Used Date Smoking Tobacco: Never Smokeless Tobacco: Never Alcohol Use Standard Drinks/Week Comments Yes 0 (1 standard drink = 0.6 oz pure alcoho l) rare occasions (1 per month) Sex Assigned at Date Recorded Not on file documented as of this encounter Progress Notes Destin Okeefe RN, BSN - 08/19/2017 11:40 AM CDT Verbal order taken, read back and confirmed. documented in this encounter Plan of Treatment Not on filedocumented as of this encounter Results XR Cervical Spine 2 Views (08/20/2017 1:30 PM CDT) Anatomical Region Laterality Modality Spine, C-Spine, Neck Computed Radiograph y Specimen (Source) Anatomical Collection Method Collection Time Re ceived Time Location / / Volume Laterality 08/20/2017 1:20 PM CDT Narrative 08/20/2017 1:34 PM CDT COMPARISON: ??None. FINDINGS: ??Two views were obtained. Anterior cervical fusion from the C3-C5 levels consisting of interbody spacers and anterior screw/plate fixation. Metallic components appear intact. No evidence for subluxation. Mild prominence of prevertebral soft tis sues. Procedure Note Bhaskar Yeh MD - 08/20/2017Formattin g of this note might be different from the original. COMPARISON: None. FINDINGS: Two views were obtained. Anterior cervical fusion from the C3-C5 levels consisting of interbody spacers and anterior screw/plate fixation. Metallic components appear intact. No evidence for subluxation. Mild prominence of prevertebral soft tis sues. Warner Machado PA-C RAD GD documented in this encounter Visit Diagnoses Diagnosis S/P cervical spinal fusion - Primary Arthrodesis status S/P cervical spinal fusion Arthrodesis status documented in this encounter Care Teams Physician Specialist Relationship Specialty Start Date End Date Allyson Pool PA-C PCP - General Physician Production Supervisor 09/26/16 02/28/21 [address] [place] [id number] documented as of this encounter
--- OUTSIDE RECORDS SUMMARY | 2022-02-21 10:29 | XMS_ITS | Encounter Summary ---
:1935 Author Organization [employer] Address [address] [place] [address] Care Team Providers Name Role Phone Allyson Pool PA-C Primary Care Provider Reason for Visit Reason Comments Future Appointments Encounter Details Date Type Department Care Team Description 07/22/2017 Telephone [facility] Allyson Pool PA-C Future Appointments [facility] [address] [facility] [address] [place] [address] [phone] Social History Tobacco Use Types Packs/Day Years Used Date Smoking Tobacco: Never Smokeless Tobacco: Never Alcohol Use Standard Drinks/Week Comments Yes 0 (1 standard drink = 0.6 oz pure alcoho l) rare occasions (1 per month) Sex Assigned at Date Recorded Not on file documented as of this encounter Nursing Notes Estrella Vann LPN - 07/23/2017 9:31 AM CDT I called and spoke to pt's Mayo and asked how he and Fidelia doing. Mayo said that he is doing good and Fidelia is recovering nicely at the [facility] unit in [place]. Mayo explained that Medicare will cover approximately 20-21 days of TCU for Fidelia so they have not received a discharge date. I explained that I was very glad to hear they are both doing good and just wanted to let himknow that when they are told a discharge date to call the clinic at [phone] to set up a follow-up appointment with Allyson Pool PA-C to discuss medications and evaluate how she is doing. Jasbirflorence said that they will call when they know and set up an appointment and mentioned that he truly appreciates us checking in on he and Fidelia, and he said he will tell her Hi from Allyson Pool and myself. Allyson Pool PA-C - 07/22/2017 2:14 PM CDT Can you get patient in to see me when she is out of TCU. I would like to see her to discuss her recent surgery and also discuss her medications. I think we might needs an alternative to paxil as this can lead to some changes in thinking clarity. Allyson Pool PA-C 2:16 PM 07/22/2017 documented in this encounter Plan of Treatment Not on filedocumented as of this encounter Visit Diagnoses Not on filedocumented in this encounter Care Teams Engraver Set Up Operator Relationship Specialty Start Date End Date Allyson Pool PA-C PCP - General Physician Farm Hand 09/26/16 02/28/21 [address] [place] [id number] documented as of this encounter
--- OUTSIDE RECORDS SUMMARY | 2022-02-21 10:29 | XMS_ITS | Encounter Summary ---
:1935 Author Organization [facility] Address [address] [place] [address] Care Team Providers Name Role Phone Allyson Pool PA-C Primary Care Provider Reason for Visit Reason Comments Follow-up Encounter Details Date Type Department Care Team Description 10/08/2017 Office Visit [facility] Cancer Clifton Barboza noclonal gammopathy Care at [facility] MILADIS Farrell i present on serum [facility] [address] [place] [address] protein [address] [place], [place] [id number] [place] [address] (Primary Dx) [phone] Social History Tobacco Use Types Packs/Day Years Used Date Smoking Tobacco: Never Smokeless Tobacco: Never Alcohol Use Standard Drinks/Week Comments Yes 0 (1 standard drink = 0.6 oz pure alcoho l) rare occasions (1 per month) Sex Assigned at Date Recorded Not on file documented as of this encounter Last Filed Vital Signs Vital Sign Reading Time Taken Comments Blood Pressure 140/66 10/08/2017 2:44 PM CDT Pulse 75 10/08/2017 2:44 PM CDT Temperature 37.6 ??C (99.6 ??F) 10/08/2017 2:44 PM CDT Respiratory Rate - - Oxygen Saturation - - Inhaled Oxygen Concentration - - Weight 92.1 kg (203 lb 1.6 oz) 10/08/2017 2:44 PM CDT Height - - Body Mass Index 35.98 07/08/2017 3:58 PM WASHCOAT WIPER documented in this encounter Progress Notes Marlys Barboza MBBS - 10/08/2017 12:00 PM CDT NAME: FIDELIA LUNDBERG MR#: [id number] CSN: [id number] AUTHENTICATING CLINICIAN: MILADIS Dennis CONFIRM #: [id number] LOC: 3704 CLINIC PROGRESS NOTE DATE OF VISIT: 10/08/2017 : 1935 Diagnosis: IGG kappa MGUS History: Fidelia is a 81-year-old with history of hypertension, coronary artery disease, with cardiac arrest and VFib in 2002, first [place] reportedly at age 44. She comes today [...] INTERVAL HISTORY: Fidelia is here today for followup. Overall, she is functioning well and is recovering and feels significant improvement in her energy level and functioning since her stay in the rehabunit. Her appetite is also improving and she denies any new symptoms especially pain. She denies anyrecurrent fevers, infections, or GI symptoms. REVIEW OF SYSTEMS: Otherwise negative. ?? OBJECTIVE: VITAL SIGNS: Temperature 98.2, heart rate is 61. Blood pressure 132/69. GENERAL: On exam, she is awake, alert, [...] here for evaluation of monoclonal protein. ? MGUS: I discussed with Fidelia her labs which are within adequate limits. She does not have any CRAB features except for the couple of lesions noted in the calvarium of unclear etiology. I did discuss with her about obtaining imaging during her last visit, and she was not interested in that. She probably haslow risk MGUS and I will have another discussion with Radiology and pursue imaging which she is interested in pursuing at this time since she has recovered well and improving in terms of energy level and functioning. I will call her after my discussion with Radiology. Will follow up otherwise in 6 months CA:MEDQ C: CONFIRM #: [id number] documented in this encounter Plan of Treatment Not on filedocumented as of this encounter Visit Diagnoses Diagnosis Monoclonal gammopathy present on serum p rotein electrophoresis (HRC) - Primary documented in this encounter Care Teams Special Duty Nurse Relationship Specialty Start Date End Date Allyson Pool PA-C PCP - General Physician Lift Mechanic 09/26/16 02/28/[id number] [place] [id number] documented as of this encounter
--- OUTSIDE RECORDS SUMMARY | 2022-02-21 10:29 | XMS_ITS | Encounter Summary ---
:1935 Author Organization [facility] Address [address] [place] [address] Care Team Providers Name Role Phone Allyson Pool PA-C Primary Care Provider Reason for Visit Procedure/Equipment (Routine) - Incomplete Specialty Diagnoses / Procedures Referred By Contact Refer red To Contact Diagnoses S/P cervical spinal fusion Warner Machado PA-C Procedures XR Cervical Spine 2 Views [address] [facility] [address] [place], [place] [address] Referral ID Status Reason Start Date Expiration Date Visits V isits Requested Authorized [id number] Incomplete 08/19/2017 11/18/2018 1 1 Encounter Details Date Type Department Care Team Description 08/20/2017 [facility] [address] L[address] Machado PA-C S/P cervical spinal Radiology [address] [facility] S fusion [address] [facility] [address] [place] [address] [phone] (Wo rk) Social History Tobacco Use Types [...] Comme nts XR CERVICAL SPINE 2 Routine 08/20/2017 1:30 PM S/P cervical sp inal Results for [...] status documented in this encounter Care Teams Clinical Lab Assistant Relationship Specialty Start Date End Date Allyson Pool PA-C PCP - General Physician Electric Accounting Machine Operator 09/26/16 02/28/21 [id number] [place] [id number] documented as of this encounter
--- OUTSIDE RECORDS SUMMARY | 2022-02-21 10:29 | XMS_ITS | Encounter Summary ---
:1935 Author Organization [facility] Address [address] [place] [address] Care Team Providers Name Role Phone Allyson Pool PA-C Primary Care Provider Reason for Referral Procedure/Equipment (Routine) - Incomplete Specialty Diagnoses / Procedures Referred By Contact Refer red To Contact Diagnoses S/P cervical spinal fusion Phuong Vogel APRN, Procedures XR Cervical Spine 2 Views CAN CUTTER [address] [place], [place] [address] Referral ID Status Reason Start Date Expiration Date Visits V isits Requested Authorized [id number] Incomplete 09/27/2017 12/27/2018 1 1 Encounter Details Date Type Department Care Team Description 09/27/2017 Notes/Orders Specialty Center 3931 Lynda Anderson S/P cervical spinal Neurosurgery J, RN fusion (Primary Dx) [address] [place] [address] Social History Tobacco Use Types Packs/Day Years Used Date Smoking Tobacco: Never Smokeless Tobacco: Never Alcohol Use Standard Drinks/Week Comments Yes 0 (1 standard drink = 0.6 oz pure alcoho l) rare occasions (1 per month) Sex Assigned at Date Recorded Not on file documented as of this encounter Progress Notes Lynda Anderson RN - 09/27/2017 9:36 AM CDT Verbal order taken, read back [...] changes C5-C7 stable. No subluxation. Phuong Vogel FULL ROLL INSPECTOR, CAN CUTTER RAD GD documented in this encounter Visit Diagnoses Diagnosis S/P cervical spinal fusion - Primary Arthrodesis status S/P cervical spinal fusion Arthrodesis status documented in this encounter Care Teams Cooling System Operator Relationship Specialty Start Date End Date Allyson Pool PA-C PCP - General Physician Fabrication And Layout Craftsman 09/26/16 02/28/21 [address] [place] [id number] documented as of this encounter
--- OUTSIDE RECORDS SUMMARY | 2022-02-21 10:29 | XMS_ITS | Encounter Summary ---
:1935 Author Organization [facility] Address [address] [place] [address] Care Team Providers Name Role Phone Allyson Pool PA-C Primary Care Provider Reason for Visit Reason Comments Provider Orders for continued care Encounter Details Date Type Department Care Team Description 08/16/2017 Telephone [facility] Allyson Pool PA-C Provider Orders (for Medicine [id number] [place] [address] continued care) [address] [place] [address] [place] [address] [phone] Social History Tobacco Use Types Packs/Day Years Used Date Smoking Tobacco: Never Smokeless Tobacco: Never Alcohol Use Standard Drinks/Week Comments Yes 0 (1 standard drink = 0.6 oz pure alcoho l) rare occasions (1 per month) Sex Assigned at Date Recorded Not on file documented as of this encounter Nursing Notes Reanna Archer, RN - 08/16/2017 2:36 PM CDT Clinician Action: FYI to provider Clinician Next Step: Close encounter Specific Request(s): 1. Ginger from [facility] [employer] calling. Patient was DC'd today from TCU with orders for therapy. Trang who is overseeing MD for Allyson Pool PA-C (advised Dr. Fiordaliza Llanos), and also wants Allyson Pool to be aware that they will be starting therapy on Saturday, and if PCP has any concerns about following patient during this time, please let Ginger know, otherwise close encounter. Km Trejo - 08/16/2017 2:22 PM CDT Ginger from [facility] calling request to speak to nurse about getting clarification and verbal orders for continued care on this pt. Please advise. documented in this encounter Plan of Treatment Not on filedocumented as of this encounter Visit Diagnoses Not on filedocumented in this encounter Care Teams Vehicle Operator Relationship Specialty Start Date End Date Allyson Pool PA-C PCP - General Physician Agate Setter 09/26/16 02/28/21 [id number] [place] [id number] Erin ESCALANTE Installation & Maintenance Executive 10/24/17 BORIS Desir [phone] documented as of this encounter
--- OUTSIDE RECORDS SUMMARY | 2022-02-21 10:29 | XMS_ITS | Encounter Summary ---
:1935 Author Organization [employer] Address [address] [place] [address] Care Team Providers Name Role Phone Allyson Pool PA-C Primary Care Provider Reason for Visit Reason Comments Hospital Discharge Follow-up TCU and is transitioning to home care and therapy Encounter Details Date Type Department Care Team Description 08/22/2017 Office Visit [facility] Allyson Pool PA-C Hospital discharge follow-up (Primary Dx ); Medicine [address] [place] [address] Cervical myelopathy ([facility]); [address] [place], [place] Recurrent major depressive d isobettyeer, in partial remission ([facility]); [place] [address] Anxiety; [phone] (Wo rk) Dementia without behavioral disturbance, unspecified dementia type Social History Tobacco Use Types Packs/Day Years Used Date Smoking Tobacco: Never Smokeless Tobacco: Never Alcohol Use Standard Drinks/Week Comments Yes 0 (1 standard drink = 0.6 oz pure alcoho l) rare occasions (1 per month) Sex Assigned at Date Recorded Not on file documented as of this encounter Last Filed Vital Signs Vital Sign Reading Time Taken Comments Blood Pressure 118/60 08/22/2017 12:57 PM CDT Pulse 64 08/22/2017 12:57 PM CDT Temperature - - Respiratory Rate - - Oxygen Saturation - - Inhaled Oxygen Concentration - - Weight 90.8 kg (200 lb 3.2 oz) 08/22/2017 12:57 PM CDT Height - - Body Mass Index 35.46 07/08/2017 3:58 PM ASSISTANT WINEMAKER documented in this encounter Patient Instructions Patient InstructionsEstrella Vann LPN - 08/22/2017 1:00 PM CDT Follow up with neurology Dr. Aldridge. Please call the Neurology dept. at [phone] to schedule your appointment. Decrease paxil to 10 mg once a day. At the same time take sertraline (zoloft) 25 mg (1/2 a pill) in the evening. After 2 weeks stop the paxil and increase sertraline to 50 mg (1 pill) once a day. Follow up in 6 weeks with me. Check with your insurance company to see if they will cover the Shingrix vaccine. This is the new shingles vaccine. It can be given to adults 50 years and older. You will need to get two vaccines by 2 months. If you already had a shingles vaccine we recommend you still get this new vaccine. You can call our lozoya line to get the out of pocket cost for this vaccine. The lozoya line number is [phone]. It is approximately $270 per shot if your insurance does not cover it. documented in this encounter Progress Notes Allyson Pool PA-C - 08/22/2017 1:00 PM CDT Internal Medicine [facility] - Allyson Pool PA-C Fidelia Vyas 81 y.o. Female : 1935 PN Date of Service: 08/22/2017 Chief Complaint: Hospital discharge follow-up and anxiety and depression, medication management Tube Former Operator Present: no HPI: Fidelia Vyas is a 81 y.o. female who presents for hospital discharge follow-up. Patient was hospitalized July 09 through July 12 with progressive cervical myelopathy secondary to severe cervical spinal stenosis at C3-C4 and to a lesser degree C4-C5. Her surgeon was Khoi Hernandez. She hadC3-C5 ACDF. Patient was discharged to transitional care unit. She is doing quite well. The strength in her arms and legs have both improved. She is here with her today. She is now back at home and he is the primary caregiver. She is getting home care. They have been out several times this week. Patient has ongoing dementia. Followed by Dr. Aldridge in neurology. She does have ongoing neuropathy in her hands and feet. Nothing into the arms or legs. Depression and anxiety. Patient is on Paxil 10 mg twice daily. I am concerned about the safety of this given her age. I feel there is a more safer option for her. PHQ9=0, GAD7=0. Patient Active Problem List Diagnosis ??? 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 Aortic valve sclerosis (HRC) ??? Chronic coronary artery disease (HRC) ??? Hyperlipidemia (HRC) ??? Hypertension (HRC) ??? Anxiety (HRC) ??? Depression, major, recurrent (HRC) ??? Monoclonal gammopathy present on serum protein electrophoresis (HRC) ??? Sensory neuronopathy ??? Memory loss ??? Thyroid nodule (HRC) ??? Numbness ??? Cervical myelopathy (HRC) ??? Muscle weakness [...] by mouth daily. 90 Tab 3 ??? CRESTOR 40 MG tablet Take 1 Tab by mouth daily. 90 Tab 3 ??? docusate sodium (COLACE) 100 MG capsule Take 1 Cap by mouth two times daily as needed for Constipation. 60 Cap 0 ??? donepezil (ARICEPT) 10 MG tablet Take 10 mg by mouth daily at bedtime. ??? HYDROcodone-acetaminophen (NORCO) 5-325 MG tablet Take 1-2 Tabs by mouth every 4 hours as needed. Do not take if sleeping, sedated or confused. 30 Tab 0 ??? labetalol (TRANDATE) 100 MG tablet Take [...] 5 minutes as needed forchest pain ??? senna (SENNA LAXATIVE) 8.6 MG tablet Take 1 Tab by mouth two times daily as needed for Constipation. 60 Tab 0 ??? triamterene-hydrochlorothiazide (MAXZIDE-25) 37.5-25 MG tablet Take 0.5 Tabs by mouth daily. 45 Tab 3 ??? PARoxetine (PAXIL) 10 MG tablet Take 1 Tab by mouth two times a day. No facility-administered medications prior to visit. Review of Systems: Complete review of systems assessed. Pertinent review of systems negative except for what is noted in the HPI. All others systems negative. Physical Exam: BP 118/60 (BP Location: Right Arm, BP Cuff Size: Adult Regular) Pulse 64 Wt 90.8 kg (200 lb 3.2 oz) BMI 35.46 kg/m2 Constitutional: Well developed, Well nourished, No acute distress, Non-toxic appearance. Cardiovascular: Regular rate and rhythm. Respiratory: No respiratory distress. Clear to auscultation bilaterally, no wheezes, rhonchi, or rales. Neuro: poor memory. Strength is quite good in the upper and lower ext. Some sensory changes in the hands. Normal circulation. Assessment and Plan: 1.) Hospital discharge follow-up following cervical surgery - Patient is doing much better. We will continue to work with Dr. Hernandez in neurosurgery - Getting home care. - She will be weaning out of her cervical collar at this week. 2.) Dementia and neuropathy - Encourage patient to follow up with Dr. Aldridge she was in the hospital during the time she was post to follow-up 3.) Depression and anxiety - Currently very well controlled. - However, I am concerned about the safety of Paxil given her age and current neurologic state - Plan to wean off Paxil and start sertraline - She will decrease Paxil from 10 mg twice daily to 10 mg once daily. At the same time she will start sertraline 25 mg once a day. Okay to separate these doses. After 2 weeks she will stop Paxil and increase sertraline to 50 mg once a day. - I would like to see her back in 6 weeks. - Certainly would like to see her back sooner if new or worsening symptoms. - Patient counseled on potential side effects. Allyson Pool PA-C 1:32 PM 08/22/2017 ICD-10-CM 1. Hospital discharge follow-up Z09 2. Cervical myelopathy (HRC) G95.9 3. Recurrent major depressive disorder, in partial remission (HRC) F33.41 sertraline (ZOLOFT) 50 MG tablet 4. Anxiety (HRC) F41.9 sertraline (ZOLOFT) 50 MG tablet 5. Dementia without behavioral disturbance, unspecified dementia type F03.90 documented in this encounter Plan of Treatment Not on filedocumented as of this encounter Visit Diagnoses Diagnosis Hospital discharge follow-up - Primary Other follow-up examination Cervical myelopathy (HRC) Cervical spondylosis with myelopathy Recurrent major depressive disorder, in partial remission (HRC) Anxiety (HRC) Anxiety state, unspecified Dementia without behavioral disturbance, unspecified dementia type documented in this encounter Care Teams Lean Manager Relationship Specialty Start Date End Date Allyson Pool PA-C PCP - General Physician Plasterer Spray Gun 09/26/16 02/28/21 [id number] [place] [id number] documented as of this encounter
--- OUTSIDE RECORDS SUMMARY | 2022-02-21 10:29 | XMS_ITS | Encounter Summary ---
:1935 Author Organization [facility] Address [address] [place] [address] [place] [address] Care Team Providers Name Role Phone Allyson Pool PA-C Primary Care Provider Reason for Visit Reason Comments Follow-up Encounter Details Date Type Department Care Team Description 09/30/2017 Office Visit Specialty Center 3931 Phuong Vogel, S/P cervical spinal fusion (Primary Dx); Neurosurgery SHARE HOLDER, FISH SKINNING MACHINE FEEDER Cervical myelopathy (HRC) [address] [facility]. [address] [facility] [place] [address] [phone] (Wo rk) Social History Tobacco Use Types Packs/Day Years Used Date Smoking Tobacco: Never Smokeless Tobacco: Never Alcohol Use Standard Drinks/Week Comments Yes 0 (1 standard drink = 0.6 oz pure alcoho l) rare occasions (1 per month) Sex Assigned at Date Recorded Not on file documented as of this encounter Last Filed Vital Signs Vital Sign Reading Time Taken Comments Blood Pressure 116/70 09/30/2017 2:38 PM CDT Pulse 61 09/30/2017 2:38 PM CDT Temperature - - Respiratory Rate 16 09/30/2017 2:38 PM CDT Oxygen Saturation - - Inhaled Oxygen Concentration - - Weight - - Height - - Body Mass Index - - documented in this encounter Patient Instructions Patient InstructionsLynda Anderson RN - 09/30/2017 2:30 PM CDT Please go to Radiology for X-rays now: Take the [place] elevators down to floor 1, turn LEFT out of the elevator and walk all the way down the hallway. [address] will be on your right. X-rays for future appointments: Arrive 30 minutes early for future appointments. Go to [address] for X-rays, and then come to [address] (Neurosurgery) for your scheduled appointment. Please call the Neurosurgery clinic with any questions. - Neurosurgery Nursing Line - Neurosurgery Call Center (scheduling appointments) documented in this encounter Progress Notes Phuong Vogel, HATTIE, FISH SKINNING MACHINE FEEDER - 09/30/2017 3:06 PM CDT NAME: FIDELIA LUNDBERG MR#: [id number] CSN: [id number] AUTHENTICATING CLINICIAN: CARLO Carrasquillo CONFIRM #: [id number] LOC: 262 CLINIC PROGRESS NOTE DATE OF VISIT: 09/30/2017 : 1935 Fidelia Lundberg is a 81-year-old female who comes to clinic today for a 12-week postop followup visit. On July 09, 2017, she underwent an anterior cervical diskectomy at C3-4 and C4-5 for decompression of the spinal cord; interbody arthrodesis at C3-4 and C4- 5 using allograft bone; placement of anterior cervical plate, C3 to C5; use of operating microscope. The surgery was performed by Dr. Khoi Hernandez. Preoperatively, the patient was experiencing myeloradiculopathy. In review of her clinical consultation note dated July 05, 2017, she had difficulty walking, numbness in her hands, weakness in her hands, hyperreflexia, difficulty raising her arms above her head, mostly the left arm in relation to the right. The patient was last seen on August 20, 2017, and at that time, she had just recently been dischargedfrom the TCU. Things were going well for her. She was no longer using the rolling walker for ambulation in the home because her balance had improved. She still had the numbness in her hands, but improved strength of both of her deltoids. The right arm she could fully abduct it over the head, and the left arm, she could laterally raise it. Today, the patient tells me she continues to be doing better. She still has the numbness in her hands, but she can now fully abduct both of her arms above her head. The left arm still is slightly weaker than the right, graded at 4/5. OBJECTIVE: VITAL SIGNS: Blood pressure 116/70, pulse is 61, and respirations are 16. EXTREMITIES: The right arm she can fully abduct it over her head. She has full strength in the deltoid, biceps, and triceps. The left arm, she can fully abduct it overhead. She has weakness graded at 4/5 in the deltoid. Full strength in the biceps and triceps. She has bilateral weakened hand grasp. Full strength in her lower extremities including dorsiflexion and plantar flexion. IMAGING: Pending. ASSESSMENT: 1. Status post C3-4, C4-5 anterior cervical diskectomy and fusion for decompression of the spinal cord. 2. History of cervical myeloradiculopathy. Today, Ms. Lundberg continues to get strong in her deltoids. She can now raise her left arm over her head, which is new since last seen about 6 weeks ago. She continues to not need the rolling walker in the house, as her balance and gait have improved. Today's imaging is pending and we will call her with the results of that. In discussion with the patient and her spouse, we are recommending seeing her back in about 3 monthswith repeat AP and lateral cervical films prior to the appointment. RECOMMENDATIONS: 1. Obtain AP and lateral cervical films today and patient will be called with results. 2. Return to clinic in 3 months with repeat AP and lateral cervical films or sooner if needed. Total time spent 30 minutes, with 25 minutes spent in counseling. [facility]:RANDI C: CONFIRM #: [id number] Phuong Vogel APRN, CNP - 09/30/2017 2:30 PM CDT Neurosurgery This note has been dictated. Phuong Vogel APRN, ZAHEER,CNRN documented in this encounter Plan of Treatment Not on filedocumented as of this encounter Visit Diagnoses Diagnosis S/P cervical spinal fusion - Primary Arthrodesis status Cervical myelopathy (HRC) Cervical spondylosis with myelopathy documented in this encounter Care Teams Candle Wrapping Machine Operator Relationship Specialty Start Date End Date Allyson Polo PA-C PCP - General Physician Ict Development Manager 09/26/16 02/28/21 [address] [place] [id number] documented as of this encounter
--- OUTSIDE RECORDS SUMMARY | 2022-02-21 10:29 | XMS_ITS | Encounter Summary ---
:1935 Author Organization [employer] Address [address] [place] [address] Care Team Providers Name Role Phone Allyson Pool PA-C Primary Care Provider Reason for Referral (Routine) - Closed Specialty Diagnoses / Procedures Referred By Contact Refer red To Contact Procedures Natali Pate PA-C Physical Therapy Eval and [address] [place] [address] Referral ID Status Reason Start Date Expiration Date Visits Requ ested Visits Authorized [id number] Closed 07/10/2017 10/09/2018 1 1 [employer] Reason for Visit Auth/Cert Specialty Diagnoses / Procedures Referred By Contact Refer red To Contact General Internal Diagnoses EXT STAY radiculopathy 7w Neuroscience Medicine Procedures Anterior cervical discectomy, spinal cord decompression and fusion with bone bank graft and cervical plate, C3-4, C4-5 with spinal cord monitoring [address] 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 [place], [place] [address] [place] [address] (Work) [phone] Social History Tobacco Use Types Packs/Day Years Used Date Smoking Tobacco: Never Smokeless Tobacco: Never Alcohol Use Standard Drinks/Week Comments Yes 0 (1 standard drink = 0.6 oz pure alcoho l) rare occasions (1 per month) Sex Assigned at Date Recorded Not on file documented as of this encounter Last Filed Vital Signs Vital Sign Reading Time Taken Comments Blood Pressure 152/67 07/12/2017 7:17 AM [employer] Pulse 63 07/12/2017 7:17 AM [employer] Temperature 37 ??C (98.6 ??F) 07/12/2017 7:17 AM [employer] Respiratory Rate 18 07/12/2017 7:17 AM [employer] Oxygen Saturation 95% 07/12/2017 7:17 AM [employer] Inhaled Oxygen Concentration - - Weight 99.8 kg (220 lb) 07/08/2017 3:58 PM [employer] 05/1717 Height 160 cm (5' 3) 07/08/2017 3:58 PM [employer] 12/05/16 Body Mass Index 38.97 07/08/2017 3:58 PM [employer] documented in this encounter Discharge Summaries Warner Machado PA-C - 07/12/2017 7:51 AM CST DISCHARGE SUMMARY Patient ID: Waqar Vyas [id number] 81 y.o. 1935 Admit date: 07/09/2017 Discharge date: 07/12/17 Admission Diagnoses: EXT STAY radiculopathy , cervical stenosis and myelopathy Procedure: C3-5 ACDF Post op Diagnosis: Progressive cervical myelopathy secondary to severe cervical spinal stenosis at C3-4 and to a lesserdegree, C4-5 Surgeon: Khoi Hernandez MD Hospital Course: Unremarkable Exam: Patient in bed. Appears comfortable and in no apparent distress, moving all extremities. CN II-XII intact, alert and appropriate with conversation and following commands. Right upper extremity with appropriate strength, left deltoid with 3-/5, left bicep with 4/5, improved since pre-op. Cervical incision- CDI. Calves soft and non-tender bilaterally. Patient ambulating with assistive devices. Tolerating regular diet without nausea or vomiting. Pain managed with oral medication. Voiding without difficulty. Patient is on room air with O2 sats greaterthan 90%. Disposition: [facility] Patient Instructions: Patient verbalized understanding and is in agreement with plan. Done while pt still in hospital bed Medication List START taking these medications docusate sodium 100 MG capsule Commonly known as: COLACE Take 1 Cap by mouth two times daily as needed for Constipation. HYDROcodone-acetaminophen 5-325 MG tablet Commonly known as: NORCO Take 1-2 Tabs by mouth every 4 hours as needed. Do not take if sleeping, sedated or confused. senna 8.6 MG tablet Commonly known as: SENNA LAXATIVE Take 1 Tab by mouth two times daily as needed for Constipation. CHANGE how you take these medications aspirin 81 MG tablet Take 1 Tab by mouth. Do not take for two weeks after surgery. Okay to resume on 07/24/2017 What changed: additional instructions CONTINUE taking these medications amLODIPine 5 MG tablet Commonly known as: NORVASC Take 0.5 Tabs by mouth daily. cholecalciferol 1000 UNITS tablet Commonly known as: VITAMIN D3 Take 1 Tab by mouth daily. CRESTOR 40 MG tablet Generic drug: rosuvastatin Take 1 Tab by mouth daily. donepezil 10 MG tablet Commonly known as: ARICEPT labetalol 100 MG tablet Commonly known as: TRANDATE Take 50 mg in the morning and 100 mg in the evening Indications: 1/2 tablet in morning and 1 tablet at night nitroglycerin 0.4 MG sublingual tablet Commonly known as: NITROSTAT PARoxetine 10 MG tablet Commonly known as: PAXIL triamterene-hydrochlorothiazide 37.5-25 MG tablet Commonly known as: MAXZIDE-25 Take 0.5 Tabs by mouth daily. Where to Get Your Medications Information about where to get these medications is not yet available ! Ask your nurse or doctor about these medications ??? aspirin 81 MG tablet ??? docusate sodium 100 MG capsule ??? HYDROcodone-acetaminophen 5-325 MG tablet ??? senna 8.6 MG tablet Discharge Procedure Orders Resume your usual diet as you feel comfortable. Eat a general diet. Eat fiber (whole grains, fruits and vegetables) and drink plenty of fluids to prevent constipation. Pain medication can cause constipation. If you have nausea, you may not feel like eating. Start by drinking fluids, such as clear carbonatedbeverages, tea or soup. Gradually add bland foods to your diet, such as dry toast or crackers. Drink plenty of fluids, especially water, for the next 24 hours. Follow these activity instructions: Order Comments: Do not lift anything greater than 5-10 lbs. Minimize repetitive overhead reaching. Avoid high impact activities such as running or jumping. Wear cervical collar at all times (when out of bed-- you do not need to wear the collar at night). Can remove to shower. Follow these instructions for showering: Order Comments: Keep dressing on for 2 days, then remove and leave open to air. You can shower 2 days after surgery. You may get incision wet but avoid scrubbing the area. Avoid tubs/soaking until incision is fully healed. Do not soak in a bath tub, hot tub or pool until your incisions are completely healed. Apply ice over your incision (not directly on the skin) as needed to ease any discomfort. Do not apply creams, lotions, powders or hydrogen peroxide to your incision. You must be accompanied by a responsible adult mechanic welder truck driver at the time you are discharged. Do not drive or operate heavy equipment for at least 24 hours. Do not drink alcohol for 24 hours. Do not make any major decisions, such as signing important papers or managing legal issues, for 24 hours. Do not drink alcohol or make any major decisions, such as signing important papers or managing legalissues, while taking prescription pain medication. Avoid rapid movements for 24 hours. You may feel dizzy after the procedure. Take care when cooking or using electrical devices. Education Information provided: Order Comments: 1. Do not take non steroidal anti-inflammatory drugs (NSAIDs), such as Ibuprofen (Advil), naproxen (Aleve) or celecoxib (Celebrex) products for three months. If not contraindicated for another medical problem, you may RESUME on 10/07/2017. 2. DO NOT take Aspirin (Bufferin, Elana, Excedrin). Resume when cleared by Neurosurgery. 3. Do not take fish oil or omega 3 supplements for one week after surgery. 4. DO not drive, make important decisions or operate machinery while taking narcotics. Please allow adequate time for prescription refills. Call the Neurosurgery Clinic if you have: Order Comments: Call the Neurosurgery Clinic if you have any of these symptoms: - Severe pain that is not relieved by pain medication - Extreme leg swelling, redness or tenderness that does not go away - Fever of 101 F (38 C) or higher - Separation of stitches or mary lou - Drainage or pus around your incision site - Nausea and vomiting that does not stop - Loss of bladder or bowel control Call 911 if you experience any of these symptoms: - Chest pain - Shortness of breath - Unable to walk after a fall Allyson Pool PA-C [address] [place] [address] Schedule in 7-10 days after discharge from care facility. [facility] [address] [facility] [address] You will be discharged to this care facility. Facility MD will be following you here. Warner Machado PA-C [employer] documented in this encounter Discharge Instructions Discharge Instr - Breanne Singh RN - 07/12/2017 10:47 AM [employer] Your information has been submitted on July 12, 2017 at 10:44:53 AM [employer]. The confirmation number is [id number] [employer] documented in this encounter Medications at Time of Discharge Medication Sig Dispensed Refills Start Date End Date amLODIPine (NORVASC) 5 MG Take 0.5 Tabs by 45 Tab 3 09/1106/26/2018 tabletIndications: mouth daily. Essential hypertension ([facility]) aspirin 81 MG tablet Take 1 Tab by 100 Tab 3 07/10/2017 0 06/26/2018 mouth. Do not take for two weeks after surgery. Okay to resume on 07/24/2017 cholecalciferol (VITAMIN Take 1 Tab by 90 Tab 3 12/22/19 17 01/12/2018 D3) 1000 UNITS mouth daily. tabletIndications: Vitamin D deficiency ([facility]C) CRESTOR 40 MG Take 1 Tab by 90 Tab 3 10/05/2016 10/01/19 18 tabletIndications: mouth daily. Hyperlipidemia, unspecified hyperlipidemia type ([facility]C) docusate sodium (COLACE) Take 1 Cap by 60 Cap 0 07/10/19 18 09/30/2017 100 MG capsule mouth two times daily as needed for Constipation. donepezil (ARICEPT) 10 MG Take 10 mg by 0 12/02/2017 tablet mouth daily at bedtime. HYDROcodone-acetaminophen Take 1-2 Tabs by 30 Tab 0 06/1409/30/2017 (NORCO) 5-325 MG tablet mouth every 4 hours as needed. Do not take if sleeping, sedated or confused. labetalol (TRANDATE) 100 MG Take 50 mg in the 135 Tab 3 0 10/05/2016 11/28/2017 tabletIndications: 1/2 morning and 100 mg tablet in morning and 1 in the evening tablet at night Indications: 1/2 tablet in morning and 1 tablet at night nitroglycerin (NITROSTAT) Place 0.4 mg under 0 06/23/2021 0.4 MG sublingual tablet tongue. PARoxetine (PAXIL) 10 MG Take 1 Tab by 0 07/08/19 18 08/22/2017 tabletIndications: mouth two times a Recurrent major depressive day. disorder, in remission ([facility]) senna (SENNA LAXATIVE) 8.6 Take 1 Tab by 60 Tab 0 201709/30/2017 MG tablet mouth two times daily as needed for Constipation. triamterene-hydrochlorothia Take 0.5 Tabs by 45 Tab 3 10/06/2017 zide (MAXZIDE-25) 37.5-25 mouth daily. MG tabletIndications: Essential hypertension ([facility]) documented as of this encounter Progress Notes Chanel Macias RN - 07/12/2017 10:57 AM CST DISCHARGE O: Patient safely discharged to TCU. D: Patient is alert and oriented x 4. Pt transfers with assist of 2 . Discharge criteria met. Vaccines addressed prior to discharge. A: Discharge instructions and medications reviewed and given to patient and family. Written medication education material provided on discharge instructions including possible side effects. Prescriptions sent with patient. Belongings checklist reviewed with patient and family and belongings sent. Equipment sent: C-collar . Supplies sent none. Care plan issues addressed and education record updated. R: Patient and family verbalizes understanding and teaches back discharge instructions. Patient discharged by: wheelchair with family and staff. Peggy Segura [facility]UC - 07/12/2017 10:53 AM CST Discharge paperwork and prescriptions for Senna, Deposit, Colace faxed to [facility] (fax# [phone]). Fax confirmation received OK on 07/12/17 at 1001. Hard copies of listed prescriptions stamped with Fax confirmation information and placed in the discharge packet. Discharge transportation has been arranged with family for 1030 orange picking supervisor today. Receiving facility, [facility] notified of discharge time. Caregiver is aware of plane and will transport at 1030 AM. [employer] Breanne Andujar RN - 07/12/2017 9:11 AM CST Care Integration: Following patient for discharge planning. Reviewed chart. Pt to discharge to [facility] today 07/12/17. Spoke with Caryn at [facility] and confirmed that bed is available until 12 PM. Informed Caryn that plan is for Ed to transport Waqar at 10:30 AM. CI will continue to follow until discharge. Plan: 1. Discharge- [facility] 2. [facility]- 07/12/17 3. Transport- Breanne Andujar RN 07/12/2017, 9:14 AM [employer] Breanne Andujar RN - 07/11/2017 4:43 PM CST Discharge Finalization Tool Patient will be discharged to: [facility], [address] [place] [id number] Other contacts needed: None Date/Time Transport Needed: 07/12/17 1030 Set up ride: no ( will be here at 10-1030 to transport), Caregiver Communication Needs: other (see comments) (Caregiver aware of plan and will transport at 1030 AM) Specific Patient Transport Needs: (NA) Home Care Attestation face to face in Epic: Not applicable, SNF High Risk Readmission: no Receiving MD/CAP JEWEL PLATE ASSEMBLER: Facility MD [employer] Yanet Karimi, PT - 07/11/2017 3:32 PM CST Physical Therapy Inpatient Daily Progress Note Outpatient Date of Admit: 07/09/2017 History of current medical diagnosis: Cervical myelopathy secondary to severe cervical stenosis, Status post C3-C5 anterior cervical discectomy and fusion with Dr. Hernandez on 07/09/2017 Rehab Diagnosis: Weakness, Deconditioning, Impaired mobility, Decreased balance, Risk of falls and Decreased coordination MD Order: Eval and Treat: Discharge/Disposition recommendations ? Patient s/p cervical fusion operation. Hard cervical collar use during the daytime. GENERAL INFORMATION Mood: pleasant and alert Cooperation: Full as able Treatment Location: Started in department but brought back to her room per her request Special Equipment: None Precautions: ??falls risk, Hard cervical collar use during the daytime, neck/spine precautions Patient Self Report: Patient states she feels like her blood sugars may be off. She just feels tiredand warn out. Pain: Location: low back pain OBJECTIVE Objective: -- Range of Motion: Cervical ROM not assessed secondary to Cervical collar -- Strength: Generalized weakness -- Vitals: at rest: Heart Rate: 64, BP: 138/77 and SpO2: 95 %, BG 95 Patient???s treatment includes: Gait: Weight bearing status - Bilateral LE: full, as tolerated Equipment: wheeled walker Assistance: contact guard assist and minimal assist Distance: Wheelchair to bed Gait Pattern: reciprocal, zia decreased, shuffling, WBOS and excessive UE use with AD Instruction provided: Posture, slow steps, orange picking supervisor feet Stairs: Not appropriate to attempt based on patient's current functional level Transfers: Sit to Stand: minimal assist and moderate assist Sit to Supine: minimal assist Rolling: minimal assist Instruction Provided: Verbal cues for safe rolling, log roll, safe hand placement Other Treatments: Exercise: Seated bilateral LE exercises x 10 reps each: Ankle pumps, Marching ( 5 reps only), LAQ Patient Education Provided: Plan for therapy session Department tomorrow for PT ASSESSMENT/PLAN Patient findings include: Patient's response to RX: fair Barriers to Learning: Memory Assessment & Progress Toward Goals: Patient needed less assistance today for bed mobility and transfers but she was quick to sit on the bed after walking from the wheelchair to the bed. Patient hadincreased back pain with sitting exercises but she was able to tolerate sitting EOB x 8 minutes Updated progress toward goals set on 07/10/17: Patient will perform bed mobility (e.g., rolling) with minimal assist in 2-3 days. -Progressing Patient will transfer supine to/from sit with minimal assist in 2-3 days. -Progressing Patient will transfer sit to/from stand with contact guard assist in 3 days. -Progressing Patient will ambulate with wheeled walker and contact guard assist for 50 feet in 3 days. -Progressing Therapist Discharge Recommendations: Recommend TCU stay due to increased assistance with all mobility, decreased activity tolerance, decreased strength, balance,endurance. Therapist discharge recommendation was not discussed with patient. Interdisciplinary Communication: OT, LANDSCAPE AND YARDWORK LABORER, RN Fall precautions put in place: call light, phone, and tray table within reach of patient. Patient instructed to call not fall, bed alarm on. RN present in room when PT left Plan for Next Treatment: Department, gait in // bars with wheelchair follow vs gait with FWW and wheelchair follow, transfers, strengthening exercises Timed codes: Therapeutic exercise x 8 minutes, Therapeutic activities x 5 minutes and Gait training x 5 minutes Total timed minutes: 18 Total treatment time: 25 ( time spent binging patient up to her room) Therapist: Yanet Karimi, NIMO 3:35 PM 07/11/2017 [employer] Warner Machado PA-C - 07/11/2017 2:55 PM CST POD 2 s/p C3-5 ACDF, Doing well Patient states she is feeling well, she denies any neck pain. She reports minimal change his her hands. Exam: Alert, NAD, SANTANA Left deltoid with 3-/5 strength. Left bicep with 4-/5 strength Cervical bandage CDI Plan: PT/OT TCU planning underway Ready for discharge once TCU placement arranged May remove bandage today and leave incision open to air [employer] Breanne Andujar RN - 07/11/2017 10:15 AM CST Care Integration: Following the patient for discharge planning. Reviewed chart. Pt ready for discharge today 07/11/17 but still seeking placement at this time. Called and LVM for Caryn in admissions at [facility] and Caryn stated that she is waiting for dtr Onel to call her back before she can make a final determination. Awaiting response at this time. Breanne Andujar RN 07/11/2017, 10:15 AM Addendum: 12:42 PM Received call from Caryn confirming that Waqar has been financially and clinically accepted for admission to [facility] on 07/12/17. Will need to arrive before 12 PM due to staffing concerns. Met with Waqar and Ed at bedside and provided the information as above. Waqar and Ed are very pleased that Waqar is able to go to [facility] since this location is very close to their home in [place], [place]. Ed stated that he will transport and be at [facility] between 10 and 1030 AM on 07/12/17. This will allow plenty of time for them to make it to [facility] by 12 PM deadline. CI will continue to follow until discharge. Plan: 1. Discharge- [facility] 2. [facility]- 07/12/17 3. Transport- Breanne Andujar RN 07/11/2017, 1:10 PM [employer] Mimi Bauer OTR/Praveen - 07/11/2017 9:11 AM CST Occupational Therapy Occupational Therapy ADL Progress Note Age: 81 y.o. Sex: female Admit date: 07/09/2017 Subjective/General Information Diagnosis: Active Problems: Cervical myelopathy secondary to severe cervical stenosis, Status post C3-C5 anterior cervical discectomy and fusion with Dr. Hernandez on 07/09/2017 Treatment Diagnosis: Decreased ADL/IADL independence, Impaired functional mobility, Impaired cognition, Decreased endurance/activity tolerance and Impaired safety Communication: Verbal/appropriate Orientation: Oriented to person and hospital Not oriented to month, year or date. Patient Self Report: Pt reports feeling tired. Pain: Patient reports no pain Precautions : falls risk, Hard cervical collar use during the daytime, neck/spine precautions Gait/Mobility/AE: CGA-min assist with FWW (short distance only) Treatment Location: OT department Frequency: daily Current living situation: house with Prior ADL/IADL status: has been ambulating with her recently, assist with shower, meals, meds Current adaptive equipment: wheelchair, FWW, comfort height toilet, tub with grab bars and transfer chair Objective Treatment Today/Patient Education ADL's: To further assess pt's safety and independence with all ADLs/IADLs for a safe return home pt participated in the following transfers: Reviewed spinal precautions with pt. Pt verbalized understanding. Therapist about to assist pt with getting to the recliner, but pt requesting to use the bathroom. -toilet: min assist for sit to stand. Bilateral use of grab bars and CGA for stand to sit. -Educated pt re adaptive equipment for lower body dressing. Pt demonstrated understanding by completion of doffing socks with modified independence. Pt required increased time and effort to complete task. Pt having difficulty using sock aid with increased assist. Pt reported numbness in both of her hands. Pt required max assist to don her socks. Pt required max assist to doff/don a brief. Pt fatiguedvery quickly. IADL's: Not addressed this session UE Function: Left UE weaker Cognition: Pt demonstrated some forgetfulness. Pt required min cues for safety. Vision: No concerns reported Status of functional goals Patient will demonstrate upper body dressing without Adaptive Equipment with standby assist in 3 days. Patient will demonstrate lower body dressing with Adaptive Equipment with minimal assistance in 3 days. Patient will demonstrate walk-in/tub shower transfers with Adaptive Equipment with minimal assistance in 3 days. Patient will demonstrate toileting/toilet transfer with Adaptive Equipment with minimal assistance in 3 days. CGA-min assist with bilateral use of grab bars 07/11/17 Patient will demonstrate bed transfer/bed mobility with Adaptive Equipment with minimal assistance in 3 days. Patient will demonstrate safe chair/recliner transfer with minimal assistance in 3 days. Assessment and Plan Assessment: Pt demonstrates decreased strength and endurance impacting tolerance and independence for daily activities. Future Treatment Recommendations: Recliner, review LE dressing, UE dressing, bed, review toilet, endurance, review precautions Tolerance/Cooperation: fair Interdisciplinary Communication: PT Discharge Recommendations: From ADL/safety standpoint, patient would benefit from continued skilled OT services at: TCU, due to decreased ADL/IADL independence and impaired balance and LUE function. Disposition recommendations discussed with patient. Patient agrees with recommendations. Timed Code Treatment Minutes: 17 Total Treatment Minutes: 17 (pt arrived late from transport) Therapist signature: MAGGIE Mckeon 07/11/2017, 4:05 PM [employer] Coni Bradford, PT - 07/10/2017 11:00 AM CST Physical Therapy Inpatient Initial Evaluation Date of Admit: 07/09/2017 History of current medical diagnosis: Cervical myelopathy secondary to severe cervical stenosis, Status post C3-C5 anterior cervical discectomy and fusion with Dr. Hernandez on 07/09/2017 Rehab Diagnosis: Weakness, Deconditioning, Impaired mobility, Decreased balance, Risk of falls and Decreased coordination Past Medical History: Patient Active Problem List Diagnosis ??? Old [...] Muscle weakness (generalized) ??? Stenosis, cervical spine MD Order: Eval and Treat: Discharge/Disposition recommendations ?? Patient s/p cervical fusion operation. Hard cervical collar use during the daytime. SUBJECTIVE Patient reports: Pt agreeable to get back to bed with PT. States many times that she has just woken up from a nap in the chair. Wants to use commode before she does anything else. Mood: pleasant, alert and forgetful Pain: None reported when asked Support System: Prior Functional Level: Mobility: --Uses wheeled walker or furniture walks for household mobility with assistance. --Assist with all transfers & ADL's-unclear if this is accurate-pt indicates she can do some of these things independently but that is usually there Assistance provided by: spouse Home Environment: house Stairs: Has ramp to enter, then can stay on main level Current Equipment Available: wheeled walker, manual wheelchair and transport chair, tub with grab bars Patient PT Goals: None stated Patient History: ?? High Complexity: 3 or more personal factors and/or comorbidities that impact plan of care: decreased memory, appears to have needed assistance with mobility/ADls at baseline, now with recent surgery, very fearful of falling OBJECTIVE Treatment Location: Bedside Special Equipment: IV, Oxygen 2 liters, rigid cervical collar Precautions: falls risk, Hard cervical collar use during the daytime, neck/spine precautions Orientation: Oriented to hospital, initially said it was May then changed to June, didn't know day or year decreased memory Cooperation: full -- Range of Motion: AROM in bilateral LE WFL -- Strength: 4/5 in bilateral lower extremities -- Endurance: inadequate for household mobility -- Balance: -- standing balance: fair-, pt shaky, fearful -- Coordination: Limitations: Some incoordination/ataxia noted with LE exercises in supine Standardized test: AM-PAC 5 Items (out of 20 points): Raw Score: 12, Standardized Score: 34.14, G Code: CK, 56.39% impaired Suggested AM-PAC Basic Mobility Stage: 34-51 - LIMITED MOVING INDOORS: This score suggests significant difficulty in moving about independently and the need for assistance. The patient may be able to move about in a small area of the home that has been adapted to eliminate safety hazards. The patient may have difficulty moving from a sitting to standing position, climbing stairs and may have a great deal of difficulty moving about outdoors and in the community. Gait: Equipment: wheeled walker Assistance: minimal assist of 1 and cga/min assist of 2nd person Distance: chair to commode and commode to bed Gait Pattern: zia decreased and step-to: bilateral Instruction provided: Stand up tall, back up until pt could feel bed or commode against her LEs Stairs: Not appropriate to attempt based on patient's current functional level-pr doesn't do at baseline Transfers: Sit to Stand: minimal assist and frequent cues for hand placement Sit to Supine: Moderate+ assist of 2 Clinical Examination: ?? Moderate Complexity: Addressed 3 elements from body structures and functions (see above), and/or functional limitations as noted below. Today's Intervention: Supine exercises: heel slides, straight leg raise, hip abduction, short arc quad, ankle pumps x 10 bilaterally Education/Handouts: Plan for session Multidisciplinary Communication: Rn ok'd PT and updated after, NA helped with transfers Timed codes: Therapeutic exercise x 9 minutes Total timed minutes: 9 Total treatment time: 24 ASSESSMENT PT Clinical Presentation: ?? Moderate Complexity: Evolving Clinical Presentation with changing clinical characteristics Clinical Decision Making: ?? Moderate Complexity Eval Patient's impairments are: Decreased balance Decreased strength in LEs- shaky when standing Decreased endurance Functional limitations: Patient unable to perform bed mobility independently Patient unable to transfer independently Patient unable to ambulate independently Increased risk of falls Hospital - Functional Limitation Reporting: Based on PT assessment and AM-PAC 6 clicks, Mobility: Walking and Moving Around Current Status (G8978): At least 40 percent but less than 60 percent impaired, limited or restricted (CK) Mobility: Walking and Moving Around Goal Status (G8979): At least 20 percent but less than 40 percent impaired, limited or restricted (CJ) Goals/Functional Outcomes: Patient will perform bed mobility (e.g., rolling) with minimal assist in 2-3 days. Patient will transfer supine to/from sit with minimal assist in 2-3 days. Patient will transfer sit to/from stand with contact guard assist in 3 days. Patient will ambulate with wheeled walker and contact guard assist for 50 feet in 3 days. Barriers to Learning: cognitive Rehab Potential: Fair PLAN Planned intervention/education: Evaluation Therapeutic Exercise Therapeutic Activity Gait Training Patient/family education Home exercise program instruction Frequency: daily Duration: 2-3 days Goals and Plan of Care discussed with patient/family; patient consents to treatment: Yes Discharge Recommendations: Recommend TCU stay due to increased assist needed with all mobility-pt's would not be able to safely manage pt alone at this time. Therapist discharge recommendation was not discussed with patient due to patient's decreased memory and not present. Plan for Next Treatment: to dept-progress walking with FWW and wheelchair follow, transfers, bed mobility, general strengthening. NOTE: The clinician's signature certifies medical necessity for the treatment plan above. [employer] Latonia Rutherford, JODIR/Praveen - 07/10/2017 9:19 AM CST Occupational Therapy Occupational Therapy ADL Evaluation Date of admit: 07/09/2017 History of current medical diagnosis: Cervical myelopathy secondary to severe cervical stenosis, Status post C3-C5 anterior cervical discectomy and fusion with Dr. Hernandez on 07/09/2017 Past medical history: No past medical history on file. MD order: Eval and Treat: disposition recommendations General Current living situation: house with Prior ADL/IADL status: has been ambulating with her recently, assist with shower, meals, meds Current adaptive equipment: wheelchair, FWW, comfort height toilet, tub with grab bars and transfer chair Occupation: retired Precautions: falls risk, Hard cervical collar use during the daytime, neck/spine precautions Communication: Verbal/appropriate Location of treatment: bedside Objective Information Upper extremity function: Current upper extremity ROM: Right: 90 degrees shoulder flexion, WFL distally Left: 30 degrees shoulder flexion/abd, limited active wrist extension , unable to keep fingers extended when wrist in neutral position Current upper extremity strength: not formally assessed due to surgical precautions, but left UE weaker than right with limited AROM throughout Bilateral hand numbness, left greater than right Vision: Prior Visual Functioning: I have glasses but I haven't worn them recently Current Visual Functioning: Reports no concerns Cognition: Prior Cognitive Functioning: decreased memory Current Cognitive Functioning: oriented to person, hospital, month, not year Current ADL Performance: Feeding: able to use right UE to feed self toast and hot cereal, unable to bring cup to mouth Grooming/Hygiene: able to wash face, some difficulty with reaching left side of head for combing hair Upper body dressing: to be assessed Lower body dressing: with maximum assistance Recliner transfer: min assist (and max encouragement) to stand from recliner. Legs very shaky and patient unable to bring hands forward to walker before feeling she needed to sit. Min assist to controldecent sitting. Difficulty keeping left hand on armrest when sitting Bed mobility: to be assessed Toileting/toilet transfer: to be assessed Bathing/Tub/Shower transfer: not safe to assess due to current functional level Meal Prep: not applicable due to prior functional level Homemaking/Home management: not applicable due to prior functional level Medication management: not applicable due to prior functional level Gait/mobility: to be assessed Falls Prevention Steps Implemented: Pt placed in chair with eduardo sitter/lap belt alarm set. The patient's bedside table, call light, and phone placed within patient's reach. OT instructed the patient to call for the nurse/aide for assistance with getting out of the chair. Treatment Today: Instructed in role of OT and progression of care. Response to treatment: Endurance/activity tolerance: Patient tolerated treatment well. Cooperation: good, though patient very fearful of falling Pain scale 0 to 10 (low to high): Patient reports no pain Impairments Patient's impairments are: Impaired balance, Impaired cognition/safety, Decreased endurance/activitytolerance, Impaired UE function, Surgical precautions Functional Limitations/Rehab Diagnosis Above listed impairments limit patient's performance completing ADLs/IADLs safely and independently. Hospital - Functional Limitation Reporting: Based on clinical findings , Self Care Current Status (G8987): At least 60 percent but less than 80 percent impaired, limited or restricted (CL) Self Care Goal Status (G8988): At least 20 percent but less than 40 percent impaired, limited or restricted (CJ) Occupational Therapy Interventions Patient's Occupational Therapy interventions are: Functional mobility AE recommendations ADL training Strengthening Safety Outcomes The following goals have been established: Patient and family goals: TCU I know my would not want me to come home right away Functional outcome goals: Patient will demonstrate upper body dressing without Adaptive Equipment with standby assist in 3 days. Patient will demonstrate lower body dressing with Adaptive Equipment with minimal assistance in 3 days. Patient will demonstrate walk-in/tub shower transfers with Adaptive Equipment with minimal assistance in 3 days. Patient will demonstrate toileting/toilet transfer with Adaptive Equipment with minimal assistance in 3 days. Patient will demonstrate bed transfer/bed mobility with Adaptive Equipment with minimal assistance in 3 days. Patient will demonstrate safe chair/recliner transfer with minimal assistance in 3 days. FPC goal: Patient will maximize independence and safety with ADL/IADLs Treatment plan/goals reviewed with patient/family. Patient consents to treatment: Yes Frequency/Duration: daily 1-3 day(s) Other services: Physical Therapy Patient's potential to achieve goals: Good Evaluation Complexity Rating: Occupational profile and history: moderate Assessment: moderate Clinical decision making: moderate Overall complexity rating: moderate Timed Code Treatment Minutes: 0 Total Treatment Minutes: 25 Plan for next session: To dept: recliner, bed, LE dressing with AE, toilet Initial Discharge Recommendations Patient's initial discharge recommendation is: From ADL/safety standpoint, patient would benefit from continued skilled OT services at: TCU, due to decreased ADL/IADL independence and impaired balance and LUE function. Disposition recommendations discussed with patient. Patient agrees with recommendations. Signature: Latonia Rutherford OTR/L 10:15 AM 07/10/2017 NOTE: The clinician's signature certifies medical necessity for the treatment plan above. [employer] Natali Pate PA-C - 07/10/2017 9:01 AM CST Neurosurgery Progress Note HPI: Cervical myelopathy secondary to severe cervical stenosis A: Status post C3-C5 anterior cervical discectomy and fusion with Dr. Hernandez on 07/09/2017 POD #1 PLAN: PT and OT evaluations for assistance with discharge planning. Pt does report that she has a wheelchair and walker at home that she regularly uses. Her is also very helpful with her mobility issues. Dispo: Possible dc to home later today pending PT/OT evaluations DC navigator updated. Prescriptions in chart. Addendum 1530: PT and OT notes reviewed with recommendations for TCU placement given limited mobilities and ADLs. Care Integration involved and currently working on placement. S: Denies pain in neck or extremities. Reports persisting numbness in the hands bilaterally, extendsto the level of the elbow. Similar to pre-op symptoms. Slept well, interested in therapy evaluationstoday to ensure safe and ready to go home. O:BP (!) 159/55 Pulse (!) 59 Temp 98.2 ??F (36.8 ??C) (Oral) Resp 18 Ht 5' 3 (160 cm) Comment: 12/05/16 Wt 220 lb (91393 g) Comment: 05/1717 SpO2 96% BMI 38.97 kg/m2 Pt examined in room 714-01. Appears comfortable and in no apparent distress, moving all extremities.Appropriately wearing hard cervical collar. Alert and appropriate with conversation and following commands. Speech is fluent. Cranial nerves grossly intact. Upper extremity strength overall intact on the right, noticeable weakness in the left deltoid compared to the right. Adequately moving lower extremities. Cervical bandage clean, dry, and intact. ?? Natali Pate PA-C Neurosurgery For Neurosurgery questions, please contact Natali Pate at pager: [phone] After 5pm or weekends, please contact our behavioral health professional service. [employer] Davonte Carly F - 07/09/2017 7:22 PM CST Spiritual Care Note Referral/Reason for Visit Patient Request for visit and prayer after surgery Summary of Visit Waqar was lying in bed alert and awake and appreciative of this Cognos's visit. She shared about her adult children, grandchildren and great- grandchildren. She also shared that she was a long-time member of [facility] [employer] in [place]. She asked this Cognos to contact the temple about her hospitalization. She also asked for prayer, which this Cognos provided. Waqar finds her strength and support from her family and temple community. She is a strong believer in God and had been very active in her temple through the years. Interventions Listened compassionately to Waqar's family and temple storytelling. Provided a kind, empathic presence; validated her experiences Prayed for Waqar and her family Blessed her with rest this evening. Plan Spiritual Care Remains Available. This Cognos will call [facility] to inform them of Waqar's hospitalization and ask them to pray for her, per her request. Data 07/09/17 192 Referral Source Referral Source Patient Request Reason for Referral Emotional or Spiritual Distress Yes Request for Healing Modalities Yes [facility]ognos Interventions Spiritual Counselling Yes Life Review/Storytelling Yes Healing Modalities Prayer/Healing Total Length of Visit Visit Duration 10-29 minutes Written by Carly Arauz [employer] Pager: [phone] --End of Note-- Irma Goldman RN - 07/09/2017 5:20 PM CST POST-OP O: Patient will have a stable post-op period. D: Pt arrived to room 4/714 [facility], at 1720. Patient is alert and confused. Initial Vital Signs: Temp: 36.7 ??C (98.1 ??F) (07/09/17 1045) Pulse: (!) 58 (07/09/17 1745) Resp: 16 (07/09/17 1045) BP: 129/78 (07/09/17 1745) SpO2: 95 % (07/09/171744) Pain rated at: 0. See Assessment and Doc Flowsheets for equipment and lines/drains. Dressing is other: small amount of bloody drainage. A: Monitor vital signs and assess patient per protocol. Patient oriented to bed controls and call lights. Discussed plan of care with patient and family. See Education Record. R: Patient settled to room. Will continue to monitor. Irma Owusu RN 5:59 PM 07/09/2017 Warner Mixon PA-C - 07/09/2017 4:58 PM CST Neurosurgery Brief history: Cervical Myelopathy S: Pt states she feels ok after surgery, no pain. RN reports improvement in left arm strength. O: Patient appears comfortable and in no apparent distress, moving all extremities. Alert and appropriate with conversation and following commands. Bilateral upper and lower extremities with appropriate strength. Cervical bandage clean, dry, and intact. A: POD #0 S/P C3-5 ACDF Neuro stable. Monitor overnight Follow up in AM Will need discharge Rx written and instructions placed in chart when ready to DC All follow up appointments have been made. Warner Machado PA-C Neurosurgery For Neurosurgery questions, please contact Warner Machado at pager: After 5pm or weekends, please contact our behavioral health professional service. [employer] documented in this encounter H&P Notes Warner Machado PA-C - 07/09/2017 10:17 AM CST Surgery Update for Preop History and Physical For 07/09/2017 scheduled procedure Reviewed the medical History and Physical/Medications. Attached H&P Note Update to H&P includes: Patient and/or family denies any health changes since the H&P This patient has been evaluated by Dr. Hernandez today and has been found to be a suitable candidate for surgery Warner Machado PA-C [employer]ANCING Source Note - Annetta Ashby MD - 07/08/2017 3:00 PM INSTRUCTOR TAP DANCING PREOPERATIVE ASSESSMENT Date of Service: 07/08/2017 Date of : 1935 Age: 81 y.o. Sex: female Preoperative Evaluation completed by: Annetta Ashby MD Primary care physician: Allyson Pool PA-C [phone] CHIEF COMPLAINT Pre-Operative Evaluation ANTICIPATED PROCEDURE Chief Complaint Patient presents with ??? Preop Exam cervial fusion [facility] 07-09-17 HISTORY OF PRESENT ILLNESS Waqar Vyas is a 81 y.o. female who has been struggling with progressive left arm and leg weakness and numbness. She had an MRI of the C spine 4 days ago showing severe central spinal stenosis at multiple levels causing myelopathy. It is recommended she undergo cervical spinal fusion and diskectomy to alleviate the stenosis. Waqar and her family report to me today that they understand if they donot proceed with surgery tomorrow, Waqar will be at risk for complete paralysis due to the stenosis. Heart disease: Waqar has a medical history significant for coronary artery disease. I reviewed her consulting hr professional last note in care everywhere on October 16, 2016 through [place]. According to her consulting hr professional, she is optimally medically managed. He was going to do a CT angiogram but this was not done. Today, Waqar reports no troubles with shortness of breath, chest pain, fever, chills, cough, edema. She is not very active and in fact only walk about 3 steps before she has to take a break. This is mostly due to to the stenosis. Waqar denies feeling chest pain or shortness of breath when she does ambulate. Her who is her caregiver does not notice any troubles with shortness of breath with ambulation. Dementia. aWqar has been diagnosed with dementia and started on Aricept. She is able to recall somerecent details but is not able to recall much of the details from her visit with the neurosurgeon last week. Waqar is still her own medical decision-maker but does rely heavily on her and her daughter's input and medical decision making. She does not have an active healthcare directive or medical power of attorney at law. Risk Factors/Review of Systems: (Please see flowsheets for details) Cardiovascular risks negative except for: CAD: CAD Details: Stent, AR HTN: Renal risks negative except for: Neuro risks negative except for: Neuropathy: Other: Myelopathy (Cerivcal) GI risks negative except for: Pulmonary risks negative except for: Endocrine/Nutrition risks negative except for: Hematologic Disease risks negative except for: Musculoskeletal/Skin risks negative except for: Mental Health risks negative except for: Anxiety: Depression: Dementia: Delirium risk: Code Status: Full Code, Other risk factors negative except for: Past history of anesthesia complications: Details: vomiting after anesthesia Complete review of systems is otherwise negative. Patient Active Problem List Diagnosis ??? Old [...] Muscle weakness (generalized) ??? Stenosis, cervical spine No past medical history on file. Past Surgical History: Procedure Laterality Date ??? BREAST BIOPSY Right a long time ago ??? GALLBLADDER SURGERY ??? HYSTERECTOMY ??? OVARY REMOVAL Family History Problem Relation Age of Onset ??? Heart Disease Mother ??? Heart Disease Sister ??? BRCA 1/2 Negative Family History ??? Cancer, Breast Negative Family History ??? Cancer Negative Family History ??? Cancer, Ovary Negative Family History ??? Cancer, Endometrial Negative Family History Social History Social History ??? Marital status: Spouse name: N/A ??? Number of children: N/A ??? Years of education: N/A Occupational History ??? Not on file. Social History Main Topics ??? Smoking status: Never Smoker ??? Smokeless tobacco: Never Used ??? Alcohol use Yes Comment: rare occasions (1 per month) ??? Drug use: No ??? Sexual activity: No Other Topics Concern ??? Not on file Social History Narrative Current Outpatient Prescriptions Medication Sig Note Dispense Refill ??? amLODIPine (NORVASC) 5 MG tablet Take 0.5 Tabs by mouth daily. 45 Tab 3 ??? aspirin 81 MG tablet Take 81 mg by mouth. 11/01/2016: occasionally ??? cholecalciferol (VITAMIN D3) 1000 UNITS tablet [...] 0.4 mg under tongue. 11/01/2016: Received from: [place] Received Sig: Place 1 tablet (0.4 mg) under the tongue every 5 minutes as needed forchest pain ??? PARoxetine (PAXIL) 10 MG tablet Take 1 Tab by mouth two times a day. ??? triamterene-hydrochlorothiazide (MAXZIDE-25) 37.5-25 MG tablet Take 0.5 Tabs by mouth daily. 45 Tab 3 No current facility-administered medications for this visit. Allergies Allergen Reactions ??? Atorvastatin Muscle aches ??? Morphine Nausea And Vomiting PHYSICAL EXAMINATION Pulse: 60 (07/08/17 1501) BP: 118/68 (07/08/17 1501) General Appearance: Normal HEENT: Normal Neck: Normal Lungs: Normal Heart: Normal Abdomen: Normal Extremities: Normal Skin: Normal Neurologic: Normal EXCEPT FOR left arm weakness and left leg weakness. Echocardiogram done at [place] -full information is available in care everywhere [facility] [address] [place] [address] Name: WAQAR VYAS : 1935 Study Date: 04/16/2016 09:05 AM Age: 80 yrs Gender: Female Patient Location: [facility] [place] Reason For Study: , Cardiac murmur, unspecified Ordering Physician: JULIAN KLINE Referring Physician: [facility] Performed By: Stephanie Ramos BSA: 2.0 m2 Height: 65 in Weight: 213 lb HR: 60 BP: 130/70 mmHg Procedure Complete Echo Adult. Contrast Optison. Interpretation Summary technically difficult study inferior basilar wall appears hypokinetic. LVEF low normal 50-55% The ascending aorta is Borderline dilated. Normal valvular function Optison contrast was used without apparent complications. There is no comparison study available. The study was technically difficult. Left Ventricle The left ventricle is normal in size. There is normal left ventricular wall thickness. technically difficult study inferior basilar wall appears hypokinetic. LVEF low normal 50-55%. The transmitral spectral Doppler flow pattern is suggestive of impaired LV relaxation. Right Ventricle The right ventricle is normal in structure, function and size. Atria Normal left atrial size. Right atrial size is normal. There is no atrial shunt seen. Mitral Valve There is mild mitral annular calcification. There is no mitral regurgitation noted. Tricuspid Valve The tricuspid valve is normal in structure and function. No tricuspid regurgitation. Aortic Valve There is mild trileaflet aortic sclerosis. No aortic regurgitation is present. The peak AoV pressure gradient is 9.3 mmHg. Pulmonic Valve The pulmonic valve is not well seen, but is grossly normal. Vessels The aortic root is normal size. The ascending aorta is Borderline dilated. The IVC is normal in size and reactivity with respiration, suggesting normal central venous pressure. Pericardium The pericardium appears normal. Rhythm The rhythm was normal sinus. MMode/2D Measurements & Calculations IVSd: 1.1 cm LVIDd: 5.0 cm LVIDs: 4.0 cm LVPWd: 0.64 cm FS: 21.2 % EDV(Teich): 120.4 ml ESV(Teich): 68.8 ml LV mass(C)d: 155.5 grams Ao root diam: 3.4 cm LA dimension: 5.4 cm asc Aorta Diam: 3.7 cm LA/Ao: 1.6 LA Volume (BP): 46.5 ml LA Volume Index (BP): 22.9 ml/m2 Doppler Measurements & Calculations MV E max kerry: 90.2 cm/sec MV A max kerry: 115.0 cm/sec MV E/A: 0.78 MV dec time: 0.22 sec Ao V2 max: 152.7 cm/sec Ao max P.3 mmHg LV V1 max P.6 mmHg LV V1 max: 95.1 cm/sec LV V1 VTI: 23.6 cm PA acc time: 0.08 sec Lateral E/e': 12.4 Medial E/e': 18.8 TEST RESULTS AND DATE EKG done: Today: 07/08/2017. Sinus rhythm with first-degree AV block, left axis deviation, septal infarct age undetermined. No EKG available and Sensulin system to compare.. Labs done: Today: 07/08/2017. CBC is normal today. BMP is ordered and pending. Component Latest Ref Rng & Units 07/08/2017 WBC 3.8 - 11.0 k/cmm 7.0 RBC 3.70 - 5.20 m/cmm 4.49 Hemoglobin 11.8 - 15.5 g/dL 13.5 HEMATOCRIT 35.0 - 46.0 % 40.7 MCV 80.0 - 100.0 fL 90.6 RDW 11.0 - 15.0 % 13.9 Platelets 140 - 450 k/cmm 152 ASSESSMENT 1. Preoperative examination 2. Cervical myelopathy (HRC) 3. 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 Chronic coronary artery disease (HRC) 5. Aortic valve sclerosis (HRC) 6. Essential hypertension (HRC) 7. Recurrent major depressive disorder, in remission (HRC) 8. Hyperlipidemia, unspecified hyperlipidemia type (HRC) 1. Preoperative Assessment: This patient has been examined by me today and has been found to be a suitable candidate for surgery: Yes. Waqar is optimized for surgery based on the urgency and need of this surgery to reduce her risk of paralysis and worsening of neurological deficits. Waqar and her family (daughter and present today) understand that Waqar has significant cardiac history withno recent evaluation of cardiac function. Her last echocardiogram showed borderline normal ejection fraction April 2016. At this point, I do not recommend further workup as this would delay her urgent surgery. If time permits, an echocardiogram might be of some value. At this time, Waqar does not have any significant symptoms of heart failure or chest pain. Functional evaluation of her heart is limited due to inactivity and sedentary life. Patient's last dose of aspirin was July 05. I recommend restarting aspirin as soon as it is safe after surgery. RECOMMENDATIONS AND PLAN Day of surgery testing: none BMP ordered today and pending. See discussion above. Medication recommendations including insulin / diabetes: no adjustments needed. Additional screening recommended: no Consult (Cardiology/other): no Additional test results attached: none Recommend RT assessment post op for Oxygenation and ventilation monitoring: yes Due to history of coronary artery disease Other: no - Do not eat anything after midnight the evening before your surgery. - It is OK to drink water or Gatorade up to 4 hours before your surgery. - You may take medicines before surgery with a small sip of water ABOVE RECOMMENDATIONS WERE REVIEWED WITH PATIENT: yes Annetta Ashby MD 07/08/2017 RUCTOR TAP DANCING documented in this encounter Procedure Notes Khoi Hernandez - 07/09/2017 3:06 PM CST NAME: WAQAR VYAS MR#: [id number] CSN: [id number] AUTHENTICATING CLINICIAN: Khoi Hernandez MD CONFIRM #: [id number] LOC: 1 OPERATIVE REPORT DATE OF OPERATION: 07/09/2017 : 1935 SURGEON: Khoi Hernandez MD NAME OF PROCEDURES: Anterior cervical diskectomy at C3-4 and C4-5 for decompression of the spinal cord; interbody arthrodesis C3-4 and C4-5 using allograft bone; placement of anterior cervical plate C3 to C5; use of the operating microscope. PREOPERATIVE DIAGNOSIS: Progressive cervical myelopathy secondary to severe cervical spinal stenosis at C3-4 and to a lesserdegree, C4-5. POSTOPERATIVE DIAGNOSIS: Progressive cervical myelopathy secondary to severe cervical spinal stenosis at C3-4 and to a lesserdegree, C4-5. CLIENT CONSULTANT: Warner Machado PA-C. DESCRIPTION OF PROCEDURE: Patient was brought to the operating room, where she was placed under suitable general endotracheal anesthesia and subsequently motor-evoked and somatosensory- evoked potential monitoring was initiated.Baseline studies were obtained. The patient was then positioned with her neck slightly extended. Repeat electrophysiologic monitoring did not show any evidence of reported change in motor or SSEP monitoring. The right side of her neck was then sterilely prepped and draped in the usual fashion, and a transverse incision, approximately 6 cm in length, was made following a skin crease at a level chosen with use of lateral fluoroscopic guidance. Sharp dissection proceeded through the platysmal layer, along the anterior border of sternocleidomastoid muscle, and subsequently through the middle cervical fascia, directly onto the ventral surface of the cervical vertebrae of C3, C4, and C5. The C3-4 level was identified and marked with lateral fluoroscopy. Medial edges of the longus colli muscle were coagu lated and elevated, and 45 mm marketing technology coordinator retractor was placed along with intervertebral body retractor set into C3 and C4. Distraction was initiated across the disk space and the anterior longitudinal ligament and annulus were opened sharply with a #15 blade. Operating microscope was brought into use and used throughout the remainder of the procedure for visualization, illumination, microsurgical technique. Markedly degenerated disk material was removed from the C3-4 interspace. The posterior marginof the disk space bridging osteophytes were drilled to a thin shell and removed. A rather large freefragment disk herniation was found. The center part of the canal with some associated calcific spursin midline. This was removed in multiple large fragments with progressive decompression of the ventral aspect of the cervical spinal cord. The posterior longitudinal ligament at this level was somewhatossified and this was also removed along with the remaining posterior longitudinal ligament from foramen to foramen. Bilateral foraminotomies were performed using cervical curettes. At the conclusion of the procedure the ventral thecal sac as well as the exiting nerve roots appeared to be well decompressed. Motor evoked potential monitoring reportedly showed a significant amplitude improvement. Adjacent cortical endplates were then decorticated using a Mid[place] Vicente drill and a 7 x 14 x 14 mm LASR Cornerstone graft was gently impacted into the intervertebral space. Anterior osteophytes were drilled flush, and the retractors were moved downward to the C4-5 level where essentially same technical procedure was performed. At the C4-5 level the patient was noted to have a prominent midline osteophyte extending into the canal also associated with ossification of posterior longitudinal ligament producing marked ventral defect in the thecal sac. The posterior longitudinal ligament was opened from foramen to foramen and the ventral aspect of the spinal cord was decompressed with an osteophytectomy and removal of the ossified ligament. Bilateral foraminotomies were performed. In the adjacent endplates weredecorticated. A 6 x 14 x 14 mm LASR Cornerstone graft was gently impacted at this level. There was no reported change in motor evoked for somatosensory evoked potential monitoring at any point during the case. Anterior osteophytes were then reduced and a 42.5 mm Phonetimetronic titanium dynamic plate was selected, sized, and secured to the ventral aspect of C3, C4, and C5. The plate was secured using six 14 mm unicortical titanium screws. Push pins were removed and center locking hubs were secured. Good placement of the interbody arthrodesis at both levels as well as the anterior instrumentation was observed with lateral fluoroscopy. Retractors were removed and there was no evidence of injury to medial or lateral cervical structures. The retropharyngeal space was copiously irrigated with Ancef-containing irrigation and meticulous hemostasis was assured with bipolar cautery. A small amount of thrombin was left in the retropharyngeal space to assist with postoperative hemostasis. Platysmal layer and subcutaneous cutaneous tissue were closed and with interrupted inverted 3-0 Vicryl suture. The skin wasclosed with a running undyed 4-0 Vicryl in a subcuticular stitch. Sterile dressing was applied. The patient was placed in a cervical collar, awakened, extubated, and transported to the recovery room instable condition. Final SSEP and motor-evoked potential waveforms were reportedly unchanged from thepreoperative baseline with the exception of improvement and amplitude of upper extremity motor evoked potentials at the end of the case. AGB:MEDQ C: CONFIRM #: [id number] RUCTOR TAP DANCING documented in this encounter Consult Notes Breanne Andujar RN - 07/10/2017 9:32 AM CSTAssociated Order(s): CONSULT CARE INTEGRATION Care Integration: Received call from Shaina VELÁZQUEZ, [facility] Intake: [phone]. Shaina stated that she is actively involved in Waqar's case and recently completed application for Medical Assistance for Waqar. Shaina stated that [place] d[facility] [phone] has a copy of application. Shaina informed process description writer that Waqar's [facility] is interested in TCU at discharge. [facility] is Waqar's caregiver and does not feel that he can safely provide the amount of support Waqar will need after surgery. Consult for Care Integration has been placed for discharge planning. PT/OT evaluations also pending at this time. Senior Consultant called and LVM for [facility] requesting call back. Awaiting response at this time. CI will follow, await response from dtr, evaluations for PT/OT, and plan to meet with Waqar once this information is available. Breanne Andujar RN 07/10/2017, 9:46 AM Addendum: 2:12 PM Spoke with dtr [employer]. [facility] confirmed that [facility] does have a copy of MA application and will fax. Discussed Waqar and [facility] stated that Waqar does have dementia and can be very forgetful. Discussed TCU options in [facility] and [facility] supplied the following locations in order of preference: 1. [facility] this facility [facility]. [facility] listed this location as 3 options as well Spoke with [facility] by phone and he provided the above TCU referral options. Senior Consultant explained to [facility] that due to outpatient admissions status, related to procedure typically not requiring more than 1 overnight stay in the hospital postsurgically. Discussed that many care centers are not willing to accept MA pending as a payor source so finding a bed in one of the above locations may be difficult. [facility] voiced understanding of this and states that he is hopeful one of these locations will acceptArlene. Senior Consultant agreed to provide updates as they become available. Discussed transport and [facility] stated that he will provide transport to facility at discharge. Electronically sent referral to above facilities. Spoke with [facility] at [facility] whom stated that they do have beds but they do not accept MA pending without proof that county has application, is processing, and has a MA case # assigned. Senior Consultant agreed to reach out to [facility] again to ascertain if this information is obtainable. Called and LVM for [facility] asking for return call. Awaiting response at this time. Spoke with Natali Pate PA-C Neurosurgery and provided updates as above. Plan: 1. Discharge- TCU, referrals sent 2. [facility]- 07/11/17, pending bed availability and TCU acceptance 3. Transport- Breanne Andujar RN 07/10/2017, 2:38 PM RUCTOR TAP DANCING documented in this encounter Miscellaneous Notes [facility] Activation Code - FélixTerri ramireze EllenASHISH - 07/11/2017 7:12 PM INSTRUCTOR TAP DANCING Thank you for enrolling in [facility]. Please follow the instructions below to securely access your online medical record. [facility] allows you to send messages to your doctor, view your test results, renewyour prescriptions, schedule appointments, and more. How Do I Sign Up? 1. In your Internet browser, go to [email or web address] 2. Click on the Enter activation code link under the New User? section. You will see the Activate your account! page. 3. Enter your activation code exactly as it appears below. You will not need to use this code after you???ve completed the sign-up process. If you do not sign up before the expiration date, you must request a new code. Activation Code: [email or web address] Expires: 08/10/2017 7:12 PM 4. Enter your last name and date of (mm/dd/yyyy) as indicated, then click Continue. You will be taken to the Let's set up your account page. 5. Create a username. This will be your [facility] login ID and cannot be changed, so think of one thatis secure and easy to remember. 6. Create a password. You can change your password at any time. 7. Enter your e-mail address. You will receive e-mail notification when new information is availablein [facility]. 8. Select your Security Questions and enter your answers. These can be used at a later time if you forget your password. 9. Check the box to accept the terms and conditions. Click Create your account. You can now view your medical record. Additional Information If you have questions, you can call [phone] to talk to our [facility] staff. Remember, [facility] is NOT to be used for urgent needs. For medical emergencies, dial 911. RUCTOR TAP DANCING documented in this encounter Plan of Treatment Not on filedocumented as of this encounter Procedures Procedure Name Priority Date/Time Associated Diagnosis Comme nts BEDSIDE GLUCOSE Routine 07/12/2017 7:38 AM Result s for this MONITOR POCT INSTRUCTOR TAP DANCING procedure are i n the results section. BEDSIDE GLUCOSE Routine 07/11/2017 3:58 PM Result s for this MONITOR POCT INSTRUCTOR TAP DANCING procedure are i n the results section. MRSA CULTURE Routine 07/09/2017 5:48 PM Results f or this INSTRUCTOR TAP DANCING procedure are i n the results section. POTASSIUM STAT 07/09/2017 10:39 AM Results for this INSTRUCTOR TAP DANCING procedure are i n the results section. documented in this encounter Results Bedside Glucose Monitor (07/12/2017 7:38 AM INSTRUCTOR TAP DANCING) P athologist Signature Bedside Blood 83 mg/dL PN SOFT Glucose Test Comment: Performed at [address] [place] [address] Specimen Anatomical Collection Method Collection Time Receive d Time (Source) Location / / Volume Laterality 07/12/2017 7:38 AM 8 7:40 INSTRUCTOR TAP DANCING AM INSTRUCTOR TAP DANCING Khoi Hernandez MD LAB_1 Performing Organization Address [facility] Phon e Number PN SOFT [address] [place] [address] Bedside Glucose Monitor (07/11/2017 3:58 PM INSTRUCTOR TAP DANCING) P athologist Signature Bedside Blood 95 mg/dL PN SOFT Glucose Test Comment: Performed at [address] [place] [address] Specimen Anatomical Collection Method Collection Time Receive d Time (Source) Location / / Volume Laterality 07/11/2017 3:58 PM 8 4:00 INSTRUCTOR TAP DANCING PM INSTRUCTOR TAP DANCING Khoi Hernandez MD LAB_1 Performing Organization Address [facility] Phon e Number PN SOFT [address] [place] [address] MRSA Culture (07/09/2017 5:48 PM INSTRUCTOR TAP DANCING) [facility] gist Method Time Signature Source Nares PN SOFT Site PN SOFT Culture MRSA No Methicillin 07/10/2017 PN SOFT Screen Resistant Staph 6:16 PM INSTRUCTOR TAP DANCING aureus Isolated Specimen (Source) Anatomical Collection Method Collection Time Re ceived Time Location / / Volume Laterality Nares: 07/09/2017 5:48 PM INSTRUCTOR TAP DANCING Narrative PN SOFT - 07/10/2017 6:16 PM INSTRUCTOR TAP DANCING Performed at [facility], [address] [place] [id number], CLIA Number [id number] Khoi Hernandez MD LAB_1 Performing Organization Address [facility]/ZIP [facility] Phon e Number PN SOFT [address] [place] [address] POTASSIUM (07/09/2017 10:39 AM INSTRUCTOR TAP DANCING) athologist Signature Potassium 3.7 3.5 - 5.2 PN SOFT mmol/L Specimen Anatomical Collection Method Collection Time Receive d Time (Source) Location / / Volume Laterality 07/09/2017 10:39 07/09/2017 AM INSTRUCTOR TAP DANCING 10:44 AM INSTRUCTOR TAP DANCING Narrative PN SOFT - 07/09/2017 11:01 AM INSTRUCTOR TAP DANCING Performed at [facility] [place] [address] [place] [address] CLIA number [id number] Khoi Hernandez MD LAB_1 Performing Organization Address [facility] Phon e Number PN SOFT [address] [place] [address] documented in this encounter Visit Diagnoses Diagnosis Cervical myelopathy (HRC) Cervical spondylosis with myelopathy documented in this encounter Administered Medications Inactive Administered Medications - up to 3 most recent administrations Medication Order MAR Action Action Date Dose Rate Site acetaminophen (TYLENOL) tablet 650 Given 07/11/2017 7:26 PM INSTRUCTOR TAP DANCING 650 mg mg 650 mg, Oral, Q4H PRN, Other, Mild Pain (pain score 1-4), Starting on Sat07/09/17 at 1730, Until Sat07/12/17 at 1307, Every 4 hours while awake as needed. Give for mild pain or if patient prefers acetaminophen over other options for pain (all pain scores)., Post-op Given 07/11/2017 12:06 PM INSTRUCTOR TAP DANCING 650 mg Given 07/10/2017 6:10 AM INSTRUCTOR TAP DANCING 650 mg amLODIPine (NORVASC) tablet 2.5 mg Given 07/12/2017 7:38 AM INSTRUCTOR TAP DANCING 2.5 mg 2.5 mg, Oral, DAILY, First dose on Sat07/09/17 at 1745, Until Discontinued, Post-op Given 07/11/2017 8:34 AM INSTRUCTOR TAP DANCING 2.5 mg Given 07/10/2017 7:59 AM INSTRUCTOR TAP DANCING 2.5 mg ceFAZolin (ANCEF) 1 g in dextrose 50 Started 07/09/2017 6:37 P M INSTRUCTOR TAP DANCING 1 g 100 mL/hr ml IVPB 1 g, Intravenous, Administer over 30 Minutes, Q8H (NON-STND), First dose on Sat07/09/17 at 1800, For 1 dose, Give 6 hours post op, Post-op cholecalciferol (VITAMIN D3) tablet Given 07/12/2017 7:38 AM INSTRUCTOR TAP DANCING 1,000 Units 1,000 Units 1,000 Units, Oral, DAILY, First dose on Sat07/09/17 at 1745, Until Discontinued, Post-op Given 07/11/2017 8:35 AM INSTRUCTOR TAP DANCING 1,000 Units Given 07/10/2017 7:58 AM INSTRUCTOR TAP DANCING 1,000 Units donepezil (ARICEPT) tablet 10 mg Given 07/11/2017 9:59 PM INSTRUCTOR TAP DANCING 10 mg 10 mg, Oral, HS, First dose on Sat07/09/17 at 2200, Until Discontinued, Post-op Given 07/10/2017 10:07 PM INSTRUCTOR TAP DANCING 10 mg labetalol (TRANDATE) tablet 100 mg Given 07/11/2017 7:26 PM INSTRUCTOR TAP DANCING 100 mg 100 mg, Oral, DAILY - 2000, First dose on Sat07/09/17 at 2000, Until Discontinued, Post-op Given 07/10/2017 10:06 PM INSTRUCTOR TAP DANCING 100 mg Given 07/09/2017 7:57 PM INSTRUCTOR TAP DANCING 100 mg labetalol (TRANDATE) tablet 50 mg Given 07/12/2017 7:38 AM INSTRUCTOR TAP DANCING 50 mg 50 mg, Oral, DAILY, First dose (after last reorder) on Sat07/10/17 at 0800, Until Discontinued, Post-op Given 07/11/2017 8:34 AM INSTRUCTOR TAP DANCING 50 mg Given 07/10/2017 7:58 AM INSTRUCTOR TAP DANCING 50 mg NaCl 0.9%-KCl 20 mEq/liter New Bag Started 07/10/2017 6:10 AM INSTRUCTOR TAP DANCING 75 mL/hr infusion Intravenous, at 75 mL/hr, CONTINUOUS, Starting on Sat07/09/17 at 1645, Post-op Continue Current Bag 07/09/2017 5:28 PM INSTRUCTOR TAP DANCING 75 mL/hr oxyCODONE-acetaminophen (PERCOCET) 5-325 MG Given 06/2017 7:38 AM INSTRUCTOR TAP DANCING 1 Tablet per tablet 1-2 Tab 1-2 Tablet, Oral, Q4H PRN, Other, Severe Pain (pain score 8-10) if able to take oral medication, Starting on Sat07/09/17 at 1730, Until Sat07/12/17 at 1307, Do NOT administer at the same time as IV opioids. HOLD if on DATABASE CONSULTANT., Post-op Given 07/11/2017 6:14 PM INSTRUCTOR TAP DANCING 1 Tablet Given 07/11/2017 4:34 AM INSTRUCTOR TAP DANCING 1 Tablet PARoxetine (PAXIL) tablet 10 mg Given 07/12/2017 7:38 AM INSTRUCTOR TAP DANCING 10 mg 10 mg, Oral, BID, First dose on Sat07/09/17 at 2000, Until Discontinued, Post-op Given 07/11/2017 7:26 PM INSTRUCTOR TAP DANCING 10 mg Given 07/11/2017 8:34 AM INSTRUCTOR TAP DANCING 10 mg rosuvastatin (CRESTOR) tablet 40 mg Given 07/11/2017 9:59 PM INSTRUCTOR TAP DANCING 40 mg 40 mg, Oral, HS, First dose on Sat07/09/17 at 2200, Post-op Given 07/10/2017 10:05 PM INSTRUCTOR TAP DANCING 40 mg Given 07/09/2017 9:15 PM INSTRUCTOR TAP DANCING 40 mg sodium chloride 0.9% 0.9 % injection Given 07/11/2017 7:30 PM INSTRUCTOR TAP DANCING 10 mL Starting on Sat07/11/17 at 1923, Until Sat07/11/17 at 1930, For 1 dose, Taylor Newsome : cabinet override triamterene-hydrochlorothiazide Given 07/12/2017 7:38 AM 0.5 Tab lets (MAXZIDE-25) 37.5-25 MG per tablet 0.5 T ab INSTRUCTOR TAP DANCING 0.5 Tablet, Oral, DAILY, First dose on Sat07/09/17 at 1745, Until Discontinued, Post-op Given 07/11/2017 8:35 AM INSTRUCTOR TAP DANCING 0.5 Tablets Given 07/10/2017 7:58 AM INSTRUCTOR TAP DANCING 0.5 Tablets documented in this encounter Active and Recently Administered Medications Times are shown in INSTRUCTOR TAP DANCING. Scheduled Medication Order 07/10/2017 07/11/2017 07/12/2017 amLODIPine (NORVASC) tablet 2.5 mg 0759 (Given - Provider: Chelly Macias RN) 0834 (Given - Provider: Nida Rutherford, MICHI) 0738 (Given - Provider: Chanel Macias RN) 2.5 mg, Oral, DAILY, First dose on Sat07/09/17 at 1745, Post-op cholecalciferol (VITAMIN D3) tablet 1,000 Units 0758 ( Given - Provider: Chanel Macias RN) 0835 (Given - Provider: Nida Rutherford RN) 0738 (Give n - Provider: Chanel Macias RN) 1,000 Units, Oral, DAILY, First dose on Sat07/09/17 at 1745, Pos t-op donepezil (ARICEPT) tablet 10 mg 220 (Given - Provider: Roya De León RN) 2158 (Given - Provider: Taylor Newsome RN) 10 mg, Oral, HS, First dose on Sat07/09/17 at 2200, Post-op labetalol (TRANDATE) tablet 100 mg 2205 (Given - Provider: Suzanna De León RN) 1925 (Given - Provider: Taylor Newsome RN) 100 mg, Oral, DAILY - 1999, First dose on Sat07/09/17 at 2000, P ost-op labetalol (TRANDATE) tablet 50 mg 0758 (Given - Provider: Sa vijaya Macias RN) 0834 (Given - Provider: Nida Rutherford RN) 0738 (Given - Provider: Chanel Macias RN) 50 mg, Oral, DAILY, First dose on Sat07/10/17 at 0800, Post-op PARoxetine (PAXIL) tablet 10 mg 0759 (Given - Provider : Chanel Macias RN)230 (Given - Provider: Rayshawn De León RN) 0834 (Given - Provider: Nida Rutherford RN)1926 (Given - Provider: Taylor Newsome RN) 0738 (Given - Provider: Chanel Macias RN) 10 mg, Oral, BID, First dose on Sat07/09/17 at 2000, Post-op rosuvastatin (CRESTOR) tablet 40 mg 2205 (Given - Provider: Rayshawn De León RN) 2158 (Given - Provider: Taylor Newsome, MICHI) 40 mg, Oral, HS, First dose on Sat07/09/17 at 2200, Post-op triamterene-hydrochlorothiazide (MAXZIDE-25) 37.5-25 M G per tablet 0.5 Tab 0758 (Given - Provider: Chanel Macias RN) 0835 (Given - Provider: Nida Rutherford, MICHI) 0738 (Given - Provider: Chanel Macias RN) 0.5 Tab, Oral, DAILY, First dose on Sat07/09/17 at 1745, Post-op Continuous Medication Order 07/10/2017 07/11/2017 07/12/2017 NaCl 0.9%-KCl 20 mEq/liter infusion (CANCELED) 0610 (N ew Bag Started - Provider: Yue Morales RN) Intravenous, at 75 mL/hr, CONTINUOUS, Starting Sat07/09/17 at 16 45, Post-op PRN Medication Order 07/10/2017 07/11/2017 07/12/2017 acetaminophen (TYLENOL) tablet 650 mg 0610 (Given - Pr ovider: Yue Morales RN) 1206 (Given - Provider: Nida Rutherford, MICHI)1926 (Given - Provider: Taylor Newsome, MICHI) 650 mg, Oral, Q4H PRN, Other, Mild Pain (pain score 1-4), Starting Sat07/09/17 at 1730, Every 4 hours while awake as needed. Give for mild pain or if patient prefers acetaminophen over other options for pain (all pain scores)., Post-op docusate sodium (COLACE) capsule 100 mg 100 mg, Oral, BID PRN, Constipation, Sta rting Sat07/09/17 at 1730, as stool- softener, Post-op HYDROmorphone injectable 0.2-0.3 mg 0.2-0.3 mg, Intravenous, Q30MIN PRN, Oth er, Severe Pain (pain score 8-10) if unable to take oral medications or for pain score increasing by 3 in 30 minutes, Starting [facility] 07/09/17 at 1730, May administer 1 hour after ORAL opioid administration if given for pain score escalation. Do NOT administer at the same time as ORAL opioids. HOLD if on DATABASE CONSULTANT., Post-op ondansetron (ZOFRAN) injection 4 mg 4 mg, Intravenous, Q6H PRN, Nausea, Vomi ting, Starting 07/09/17 at 1730, Post-op oxyCODONE-acetaminophen (PERCOCET) 5-325 MG per tablet 1-2 Tab 0800 (Given - Provider: Chanel Macias, MICHI)1500 (Given - Provider: Chanel Macias, RN) 0434 (Given - Provider: Gaston Pedroza RN)1814 (Given - Provider: Nida Rutherford, MICHI) 0738 (Given - Provider: Chanel Macias, MICHI) 1-2 Tab, Oral, Q4H PRN, Other, Severe Pa in (pain score 8-10) if able to take oral medication, Starting [facility] 07/09/17 at 1730, Do NOT administer at the same time as IV opioids. HOLD if on DATABASE CONSULTANT., Post-op senna (SENOKOT) tablet 1-2 Tab 1-2 Tab, Oral, BID PRN, Other, Moderate Constipation, Starting Sat07/09/17 at 1730, Hold for loose stools, Post-op No Frequency Medication Order 07/10/2017 07/11/2017 07/12/2017 sodium chloride 0.9% 0.9 % injection (COMPLETED) 193 (Given - Provider: Taylor Newsome, MICHI) Starting on Jessica 07/11/17 at 1923, Until Th u 07/11/17 at 1930, For 1 dose, Taylor Newsome : cabinet override documented in this encounter Care Teams Fuels Engineer Relationship Specialty Start Date End Date Allyson Pool PA-C PCP - General Physician Larder Cook 09/26/16 02/28/21 [id number] [place] [id number] documented as of this encounter
--- OUTSIDE RECORDS SUMMARY | 2022-02-21 10:29 | XMS_ITS | Encounter Summary ---
:1935 Author Organization [employer] Address [address] [place] [address] Care Team Providers Name Role Phone Allyson Pool PA-C Primary Care Provider Reason for Visit Procedure/Equipment (Routine) - Incomplete Specialty Diagnoses / Procedures Referred By Contact Refer red To Contact Procedures Provider, Foreign Images Foreign Image(S) XR Spine [address] [place] [address] Referral ID Status Reason Start Date Expiration Date Visits V isits Requested Authorized [id number] Incomplete 08/20/2017 11/19/2018 1 1 Encounter Details Date Type Department Care Team Description 07/23/2017 Imaging [facility] Radiology PACS Provider, Foreign Images [address] [facility] [address] [place] [address] [place] [address] Social History Tobacco Use Types Packs/Day Years [...] Date/Time Associated Diagnosis Comme nts FOREIGN IMAGE(S) XR Routine 07/23/2017 2:15 PM Re sults for this SPINE CDT procedure are i n the results section. documented in this encounter Results Foreign Image(S) XR Spine (07/23/2017 2:15 PM CDT) Specimen (Source) Anatomical Location Collection Method / Collectio n Time Received Time / Laterality Volume Narrative PN POCT - 08/20/2017 2:15 PM CDT These outside images have been uploaded into PACS. If the results were provided, they will be located on the Me shakeel tab in the patient's chart. Foreign Images Provider RAD NON-REPORTABLES Performing Organization Address City/State/ZIP Code Phon e Number POCT PN POCT documented in this encounter Visit Diagnoses Not on filedocumented in this encounter Care Teams Licensed Life And Health Agent Relationship Specialty Start Date End Date Allyson Pool PA-C PCP - General Physician Jumbo Operator 09/26/16 02/28/21 [address] [place] [id number] documented as of this encounter
--- OUTSIDE RECORDS SUMMARY | 2022-02-21 10:30 | XMS_ITS | Encounter Summary ---
:1935 Author Organization [employer] Address [address] [place] [address] Care Team Providers Name Role Phone Allyson Pool PA-C Primary Care Provider Reason for Referral Consult/Transfer Care (Routine) - Closed Specialty Diagnoses / Procedures Referred By Contact Refer red To Contact Diagnoses Abnormal MRI Jose Aldridge MD [address] [facility] [address] [place], [place] [phone] Referral ID Status Reason Start Date Expiration Date Visits Requ ested Visits Authorized [id number] Closed 07/04/2017 10/03/2018 1 1 Scheduling Instructions Your provider has recommended an appoint ment with Sana Louis. You may call [phone] to schedule your appoi ntment. If you do not schedule an appointment within the next 1 to 3 business days, we will call you to help arrange your appointment. We suggest you call your [employer] insurance company about your coverage and benefits for this appointment. ACTOR DRIVER Reason for Visit Reason Comments RESULTS, TEST Encounter Details Date Type Department Care Team Description 07/04/2017 Telephone [facility] 3931 Soraya Maynard RN RESULTS, TEST Neurology [address] [place], [place] [address] Social History Tobacco Use Types Packs/Day Years Used Date Smoking Tobacco: Never Smokeless Tobacco: Never Alcohol Use Standard Drinks/Week Comments Yes 0 (1 standard drink = 0.6 oz pure alcoho l) rare occasions Sex Assigned at Date Recorded Not on file documented as of this encounter Nursing Notes Soraya Maynard RN - 07/04/2017 2:46 PM CST Received call from Radiologist regarding MRI that patient had done today. Dr. Aldridge and Doreen, RN are out of office so I consulted on-call provider Dr. Valencia. 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 Per Dr. Valencia, ordered emergent Neuro Surgery consult. Advised patient's [facility]. Patient has neuro surgery consult appt tomorrow at 2:30 pm with ANGELINA Hairston. [facility] expressed understanding. ACTOR DRIVER documented in this encounter Plan of Treatment Scheduled Referrals Name Type Priority Associated Diagnoses Order S chedule Spine-Surgical Referral Routine Abnormal MRI Ordered: 06/14 Consult-Adults documented as of this encounter Visit Diagnoses Diagnosis Abnormal MRI - Primary Other nonspecific (abnormal) findings on radiological and other examinations of body structure documented in this encounter Care Teams Lap Grinder Relationship Specialty Start Date End Date Allyson Pool PA-C PCP - General Physician Road Manager 09/26/16 02/28/21 [address] [place] [id number] documented as of this encounter
--- OUTSIDE RECORDS SUMMARY | 2022-02-21 10:30 | XMS_ITS | Encounter Summary ---
:1935 Author Organization [facility] Address [address] [place] [address] Care Team Providers Name Role Phone Allyson Pool PA-C Primary Care Provider Reason for Visit Reason Comments Other Encounter Details Date Type Department Care Team Description 07/08/2017 Telephone [facility] 3931 Gerson Hernandez MD Other Neurosurgery [address] [facility] [place] [address] [facility] 3931 [facility] [address] [place] [address] [place] [address] [phone] (Wo rk) Social History Tobacco Use Types [...] on filedocumented in this encounter Care Teams Flatwork Supervisor Relationship Specialty Start Date End Date Allyson Pool PA-C PCP - General Physician Plastic Surgeon 09/26/16 02/28/21 [address] [place] [address] documented as of this encounter
--- OUTSIDE RECORDS SUMMARY | 2022-02-21 10:30 | XMS_ITS | Encounter Summary ---
:1935 Author Organization [facility] Address [address] [place] [address] Care Team Providers Name Role Phone Allyson Pool PA-C Primary Care Provider Reason for Visit Procedure/Equipment (Routine) - Incomplete Specialty Diagnoses / Procedures Referred By Contact Refer red To Contact Diagnoses Mediastinal cyst Allyson Pool [place] [address] [place] [address] Referral ID Status Reason Start Date Expiration Date Visits V isits Requested Authorized [id number] Incomplete 05/15/2017 08/14/2018 1 1 Encounter Details Date Type Department Care Team Description 05/17/[address] [place] [address] Scan Allyson Pool PA-C Mediastinal cyst [address] [place] [address] [place] [address] [phone] (Wo rk) Social History Tobacco Use Types [...] Name Priority Date/Time Associated Diagnosis Comme nts CT CHEST W IV CONT Routine 05/17/2017 12:23 PM Mediastinal cys t Results for this SELECTOR PACKER procedure are i n the results section. documented in this encounter Results CT Chest W IV Cont (05/17/2017 12:23 PM SELECTOR PACKER) Anatomical Region Laterality Modality Chest, Lung Computed Tomography Specimen (Source) Anatomical Collection Method Collection Time Re ceived Time Location / / Volume Laterality 05/17/2017 12:19 PM SELECTOR PACKER Impressions 05/17/2017 1:20 PM SELECTOR PACKER IMPRESSION: ??Benign appearing mediastinal/pericardial cyst. Narrative 05/17/2017 1:20 PM SELECTOR PACKER COMPARISON: ??None. TECHNIQUE: ??Images were obtained throug h the chest following the administration of ??100 mL IOPAMIDOL 61 % IV SOLN contrast. FINDINGS: Right lobe of the thyroid glan d extends into the mediastinum. No lung nodule, mass or infiltrate. No pleural effusion or pneumothorax. No axillary, supraclavicular or mediastinal adenopathy. L imited images of the upper abdomen demon strate a small hiatal hernia. Adjacent to the left pulmonary artery and inferior left pulmonary vein there is a fluid attenuation lesion measuring 3.5 x 1.8 x 4.9 cm. It is compatible with a mediastinal or pericardial cyst. No enhancing wall or nodular component. Procedure Note OncGuillermo flores MD - 05/17/2017Forma tting of this note might be different from the original. COMPARISON: None. TECHNIQUE: Images were obtained through the chest following the administration of 100 mL IOPAMIDOL 61 % IV SOLN contrast. FINDINGS: Right lobe of the thyroid glan d extends into the mediastinum. No lung nodule, mass or infiltrate. No pleural effusion or pneumothorax. No axillary, supraclavicular or mediastinal adenopathy. Limited images of the upper abdomen demonstrate a small hiatal hernia. Adjacent to the left pulmonary artery and inferior left pulmonary vein there is a fluid attenuation lesion measuring 3.5 x 1.8 x 4.9 cm. It is compatible with a mediastinal or pericardial cyst. No enha ncing wall or nodular component. IMPRESSION IMPRESSION: Benign appearing mediastinal /pericardial cyst. 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 documented in this encounter Administered Medications Inactive Administered Medications - up to 3 most recent administrations Medication Order MAR Action Action Date Dose Rate Site iopamidol (ISOVUE-300) 61 % Given 05/17/2017 12:45 PM SELECTOR PACKER 100 mL injection 100 mL 100 mL, Intravenous, ONCE, On Sat05/17/17 at 1245, For 1 dose sodium chloride 0.9% injection 10 mL Given 05/17/2017 12:45 PM SELECTOR PACKER 10 mL 10 mL, Intravenous, ONCE, On Sat05/17/17 at 1245, For 1 dose documented in this encounter Care Teams Business Consult Relationship Specialty Start Date End Date Allyson Pool PA-C PCP - General Physician Cook Vegetable 09/26/16 02/28/21 [address] [place] [id number] documented as of this encounter
--- OUTSIDE RECORDS SUMMARY | 2022-02-21 10:30 | XMS_ITS | Encounter Summary ---
:1935 Author Organization [employer] Address [address] [place] [address] Care Team Providers Name Role Phone Allyson Pool PA-C Primary Care Provider Reason for Visit Reason Comments Paperwork Encounter Details Date Type Department Care Team Description 07/02/2017 Telephone [facility] 393 1 Neurology Doreen Escobar, RN Paperwork [address] [place], [place] [address] Social History Tobacco Use Types Packs/Day Years Used Date Smoking Tobacco: Never Smokeless Tobacco: Never Alcohol Use Standard Drinks/Week Comments Yes 0 (1 standard drink = 0.6 oz pure alcoho l) rare occasions Sex Assigned at Date Recorded Not on file documented as of this encounter Nursing Notes Doreen Escobar RN - 07/02/2017 2:42 PM CST Received paperwork from [facility] for Allyson Macdonald. Confirmed with patient that this is her daughter who has been taking time off of work to help take care of her and take her to appointments. Asked patient to have daughter call us (patient did not have her number available) so we can discuss amount of time needed so we can complete these forms. CHANGER documented in this encounter Plan of Treatment Not on filedocumented as of this encounter Visit Diagnoses Not on filedocumented in this encounter Care Teams Host/Hostess Head Relationship Specialty Start Date End Date Allyson Pool PA-C PCP - General Physician Hand Woodworking Sander 09/26/16 02/28/[address] [place] [id number] documented as of this encounter
--- OUTSIDE RECORDS SUMMARY | 2022-02-21 10:30 | XMS_ITS | Encounter Summary ---
:1935 Author Organization [facility] Address [address] [place] [address] Care Team Providers Name Role Phone Allyson Pool PA-C Primary Care Provider Reason for Visit Reason Comments [facility] Care Coordination Encounter Details Date Type Department Care Team Description 05/20/2017 Care Coord Priyanka Family Martha Dennis [facility] Ca re Coordination Phone [facility] M, [facility] [address] [place] [address] [place], [place] [phone] [address] Social History Tobacco Use Types Packs/Day Years Used Date Smoking Tobacco: Never Smokeless Tobacco: Never Alcohol Use Standard Drinks/Week Comments Yes 0 (1 standard drink = 0.6 oz pure alcoho l) rare occasions Sex Assigned at Date Recorded Not on file documented as of this encounter Progress Notes Martha Dennis LISW - 05/20/2017 4:05 PM CST Hospital Clinic Assistant - Phone Call Contact with: pt's Reason for call: community resources Discussion/actions: reports that a home care SW visited last week and is connecting them with [facility] so they do not need [facility] SW Hospital Clinic Assistant assistance right now. He reports she was setting up some CARRIAGE DOGGER visits for pt and a AC assessment. He seemed confident that they have received the info and help they need at this time. Shared plan: provided my contact info for any future questions or concerns. Pt verbalized understanding and agreed with plan of care and follow up. CTOR CHILD ABUSE THERAPY documented in this encounter Plan of Treatment Not on filedocumented as of this encounter Visit Diagnoses Not on filedocumented in this encounter Care Teams Funeral Home General Manager Relationship Specialty Start Date End Date Allyson Pool PA-C PCP - General Physician Food Science Technician 09/26/16 02/28/21 [address] [place] [id number] documented as of this encounter
--- OUTSIDE RECORDS SUMMARY | 2022-02-21 10:30 | XMS_ITS | Encounter Summary ---
:1935 Author Organization [employer] Address [address] [place] [address] Care Team Providers Name Role Phone Allyson Pool PA-C Primary Care Provider Reason for Visit Reason Comments Lab Questions Encounter Details Date Type Department Care Team Description 05/29/2017 Telephone [facility] Dave Thorpe MD Lab Questions [address] [address] [place] [address] [phone] Social History Tobacco Use Types Packs/Day Years Used Date Smoking Tobacco: Never Smokeless Tobacco: Never Alcohol Use Standard Drinks/Week Comments Yes 0 (1 standard drink = 0.6 oz pure alcoho l) rare occasions Sex Assigned at Date Recorded Not on file documented as of this encounter Nursing Notes Isadora Bryant RN - 05/29/2017 10:19 AM CST Spoke with daughter. Advised lab orders in chart, lab was ordered already for urine test to complete. Shailesh Alexander - 05/29/2017 10:06 AM CST Daughter calling in to see if it'll be okay for patient to do lab close to 2:30pm appointment with Dr. Thorpe. States that it would be difficult for patient to come in twice if she would have to do it earlier. Please advise. F OF PEDIATRIC UROLOGY documented in this encounter Plan of Treatment Not on filedocumented as of this encounter Visit Diagnoses Not on filedocumented in this encounter Care Teams Entry Specialist Relationship Specialty Start Date End Date Allyson Pool PA-C PCP - General Physician Waffle Machine Operator 09/26/16 02/28/[address] [place] [id number] documented as of this encounter
--- OUTSIDE RECORDS SUMMARY | 2022-02-21 10:30 | XMS_ITS | Encounter Summary ---
:1935 Author Organization [employer] Address [address] [place] [address] Care Team Providers Name Role Phone Allyson Pool PA-C Primary Care Provider Reason for Visit Reason Comments Hematuria Encounter Details Date Type Department Care Team Description 05/29/2017 Office Visit [place] [facility] Jovany Thorpe Gr oss hematuria Medicine MD (Primary Dx) [address] [facility] [address] [place] [address] [place], [place] [phone] (Wo rk) Social History Tobacco Use Types Packs/Day Years Used Date Smoking Tobacco: Never Smokeless Tobacco: Never Alcohol Use Standard Drinks/Week Comments Yes 0 (1 standard drink = 0.6 oz pure alcoho l) rare occasions Sex Assigned at Date Recorded Not on file documented as of this encounter Last Filed Vital Signs Vital Sign Reading Time Taken Comments Blood Pressure 122/60 05/29/2017 2:27 PM [employer]ISCO CERTIFIED NETWORK ASSOCIATE Pulse 68 05/29/2017 2:27 PM [employer]ISCO CERTIFIED NETWORK ASSOCIATE Temperature 36.6 ??C (97.8 ??F) 05/29/2017 2:27 PM [employer]IS[employer] CERTIFIED NETWORK ASSOCIATE Respiratory Rate - - Oxygen Saturation - - Inhaled Oxygen Concentration - - Weight - - Height - - Body Mass Index - - documented in this encounter Progress Notes Jovany Thorpe MD - 05/29/2017 2:30 PM CST SUBJECTIVE: 81-year-old female who presents to clinic with concerns of possible UTI. Patient has a history of frequent UTIs. Typically when she gets one, she notices small amounts of blood in the urine and dysuria. Over the last 2 days she had 2 episodes where she thought she might have seen a slight amount of blood in the urine without dysuria. Today she has not had any symptoms at all. No other symptoms such as suprapubic pain, fevers, back pain, etc. Past Medical History Reviewed and updated in EMR. Past Surgical History: Procedure Laterality Date ??? BREAST BIOPSY Right a long time ago ??? HYSTERECTOMY ??? OVARY REMOVAL Current Outpatient Prescriptions Medication Sig Note Dispense [...] daily. 90 Tab 3 ??? donepezil (ARICEPT) 5 MG tablet 1 pill once per day in the morning for 2 weeks, then 2 pills once per day in the morning after that (Patient taking differently: Take 10 mg by mouth. 1 pill once perday in the morning for 2 weeks, then 2 pills once per day in the morning after that) 60 Tab 5 ??? ergocalciferol (DRISDOL) [address]31 UNITS capsule Take 1 Cap by mouth once every week. for 8 weeks 8 Cap 0 ??? labetalol (TRANDATE) 100 MG tablet [...] by mouth daily. 90 Tab 3 ??? triamterene-hydrochlorothiazide (MAXZIDE-25) 37.5-25 MG tablet Take 0.5 Tabs by mouth daily. 45 Tab 3 No current facility-administered medications for this visit. Allergies Allergen Reactions ??? Atorvastatin Muscle aches ??? Morphine Nausea And Vomiting Social History Social History ??? Marital status: Spouse name: N/A ??? Number of children: N/A ??? Years of education: N/A Occupational History ??? Not on file. Social History Main Topics ??? Smoking status: Never Smoker ??? Smokeless tobacco: Never Used ??? Alcohol use Yes Comment: rare occasions ??? Drug use: No ??? Sexual activity: No Other Topics Concern ??? Not on file Social History Narrative REVIEW OF SYSTEMS: Patient otherwise feels well and denies headaches, dizziness, chest pain, palpitations, shortness ofbreath, cough, dyspnea on exertion, abdominal pain, nausea, vomiting, diarrhea, urinary frequency and dysuria, rashes, fevers, fatigue, swelling. EXAMINATION: VITAL SIGNS: Please see EMR. GENERAL: Patient is alert, oriented, and in no apparent distress. CARDIOVASCULAR: Regular rate and rhythm without murmurs, rubs, gallops. LUNGS: Clear. ABDOMEN: Soft, nontender, and nondistended with normal bowel sounds. No organomegaly or palpable masses. ASSESSMENT/PLAN: UTI concern. Urinalysis today was completely clear. Recommend continued close monitoring. O CERTIFIED NETWORK ASSOCIATE documented in this encounter Plan of Treatment Not on filedocumented as of this encounter Results Urinalysis Routine, Micro/Culture if Pos (05/29/2017 2:21 PM [employer]ISCO CERTIFIED NETWORK ASSOCIATE) [facility] Method Time Signature Urine Type URINE:clean PN SOFT cat Turbidity Clear Clear PN SOFT U BILI Negative Negative PN SOFT Blood Urine Trace Neg - Trace PN SOFT Glucose, Negative Neg-30 PN SOFT Qualitative U mg/dL Ketones Negative Negative PN SOFT Leukocyte Negative Negative PN SOFT Esterase Urine Nitrite Urine Negative Negative PN SOFT pH Urine 6.0 5.0 - 8.0 PN SOFT Protein Urine Trace Neg - Trace PN SOFT mg/dL U Specific 1.025 1.005 - PN SOFT Nelson 1.030 Urobilinogen Negative Negative PN SOFT Urine Eu/dL Specimen Anatomical Collection Method Collection Time Receive d Time (Source) Location / / Volume Laterality 05/29/2017 2:21 PM 8 2:21 CISCO CERTIFIED NETWORK ASSOCIATE PM [employer]ISCO CERTIFIED NETWORK ASSOCIATE Narrative PN SOFT - 05/29/2017 2:24 PM CISCO CERTIFIED NETWORK ASSOCIATE Performed at [facility], [address] [facility], [place] [address] CLIA number [id number] Jovany Thorpe MD LAB_1 Performing Organization Address City/State/ZIP Code Phon e Number PN SOFT [address] [place] [address] [phone] documented in this encounter Visit Diagnoses Diagnosis Gross hematuria - Primary Gross hematuria documented in this encounter Care Teams Health Nurse Relationship Specialty Start Date End Date Allyson Pool PA-C PCP - General Physician Gravure Press Set Up Operator 09/26/16 02/28/21 [address] [place] [address] documented as of this encounter
--- OUTSIDE RECORDS SUMMARY | 2022-02-21 10:30 | XMS_ITS | Encounter Summary ---
:1935 Author Organization [employer] Address [address] [place] [address] Care Team Providers Name Role Phone Allyson Pool PA-C Primary Care Provider Reason for Visit Reason Comments RESULTS, TEST CT scan Encounter Details Date Type Department Care Team Description 05/17/2017 Telephone [facility] Allyson Pool PA-C RESULTS, TEST (CT Medicine [address] scan) [address] [place] [address] [place] [address] [phone] Social History Tobacco Use Types Packs/Day Years Used Date Smoking Tobacco: Never Smokeless Tobacco: Never Alcohol Use Standard Drinks/Week Comments Yes 0 (1 standard drink = 0.6 oz pure alcoho l) rare occasions Sex Assigned at Date Recorded Not on file documented as of this encounter Nursing Notes Estrella Vann LPN - 05/17/2017 4:11 PM CST I called and spoke to the pt and notified her of results below. Pt verbalized understanding. [facility] LEAD PSYCHOLOGIST Allyson Pool PA-C - 05/17/2017 2:23 PM CST Please let patient know the spot they saw in her chest is a benign cyst. No further evaluation needed. Furthermore, her potassium is normal. It is at the low end of normal so she should eat a potassium rich diet. Spinach, potatoes, oranges, bananas, raisins. Allyson Pool PA-C 2:24 PM 05/17/2017 AL HEALTH UNIT LEAD PSYCHOLOGIST documented in this encounter Plan of Treatment Not on filedocumented as of this encounter Visit Diagnoses Not on filedocumented in this encounter Care Teams Quality Specialist Relationship Specialty Start Date End Date Allyson Pool PA-C PCP - General Physician Mobile Security Architect 09/26/16 02/28/21 [address] [place] [id number] documented as of this encounter
--- OUTSIDE RECORDS SUMMARY | 2022-02-21 10:30 | XMS_ITS | Encounter Summary ---
:1935 Author Organization [email or web address] Address [address] [place] [address] Care Team Providers Name Role Phone Allyson Pool PA-C Primary Care Provider Reason for Referral Procedure/Equipment (Routine) - Incomplete Specialty Diagnoses / Procedures Referred By Contact Refer red To Contact Diagnoses Diagnosis unknown Khoi Hernandez MD Procedures FL C Arm [address] [place] [address] Referral ID Status Reason Start Date Expiration Date Visits V isits Requested Authorized [id number] Incomplete 07/09/2017 10/08/2018 1 1 ENT GRINDER Reason for Visit Auth/Cert Specialty Diagnoses / Procedures Referred By Contact Refer red To Contact General Internal Diagnoses EXT STAY radiculopathy 7w Neuroscience Medicine Procedures Anterior cervical discectomy, spinal cord decompression and fusion with bone bank graft and cervical plate, C3-4, C4-5 with spinal cord monitoring [address] [place] [address] Phone: Referral ID Status Reason Start Date Expiration Date Visits Requ ested Visits Authorized [id number] 07/10/2017 10/09/2018 1 1 Encounter Details Date Type Department Care Team Description 07/09/2017 Hospital Encounter [facility] Khoi Hernandez Diagnosis unknown [address] MD [place], [place] [address] [address] [place] [address] [place] [address] Social History Tobacco Use Types Packs/Day Years [...] Take 0.5 Tabs by 45 Tab 3 0510/201606/26/2018 tabletIndications: mouth daily. Essential hypertension (HRC) aspirin 81 MG tablet Take 1 Tab by 100 Tab 3 07/10/2017 0 06/26/2018 mouth. Do not take for two weeks after surgery. Okay to resume on 07/24/2017 aspirin 81 MG tablet Take 81 mg by 0 0 07/10/2017 mouth. cholecalciferol (VITAMIN Take 1 Tab by 90 [...] Recurrent major depressive day. disorder, in remission (HRC) senna (SENNA LAXATIVE) 8.6 Take 1 Tab by 60 Tab 0 201709/30/2017 MG tablet mouth two times daily as needed for Constipation. triamterene-hydrochlorothia Take 0.5 Tabs by 45 Tab 3 10/06/2017 zide (MAXZIDE-25) 37.5-25 mouth daily. MG tabletIndications: Essential hypertension (HRC) documented as of this encounter Plan of Treatment Not on filedocumented as of this encounter Procedures Procedure Name Priority Date/Time Associated Diagnosis Comme nts FL C ARM Routine 07/09/2017 2:47 PM Diagnosis unknown Resu lts for this PIGMENT GRINDER procedure are i n the results section . documented in this encounter Results FL C Arm (07/09/2017 2:47 PM PIGMENT GRINDER) Anatomical Region Laterality Modality Radiographic Imaging Specimen (Source) Anatomical Location Collection Method / Collectio n Time Received Time / Laterality Volume Narrative 07/09/2017 3:25 PM PIGMENT GRINDER Images obtained during surgical procedure. See procedure note in Epic on this date. Khoi Hernandez MD RAD FL documented in this encounter Visit Diagnoses Diagnosis Diagnosis unknown Other unknown and unspecified cause of m orbidity or mortality documented in this encounter Care Teams Organizational Development Manager Relationship Specialty Start Date End Date Allyson Pool PA-C PCP - General Physician Sap Bods Developer 09/26/16 02/28/21 [address] [place] [id number] documented as of this encounter
--- OUTSIDE RECORDS SUMMARY | 2022-02-21 10:30 | XMS_ITS | Encounter Summary ---
:1935 Author Organization [employer] Address [address] [place] [address] Care Team Providers Name Role Phone Allyson Pool PA-C Primary Care Provider Reason for Visit Reason Comments RESULTS, TEST Encounter Details Date Type Department Care Team Description 05/21/2017 Telephone [facility] Allyson Pool PA-C RESULTS, TEST Medicine [address] [facility] [address] [place] [address] [place] [address] [phone] Social History Tobacco Use Types Packs/Day Years Used Date Smoking Tobacco: Never Smokeless Tobacco: Never Alcohol Use Standard Drinks/Week Comments Yes 0 (1 standard drink = 0.6 oz pure alcoho l) rare occasions Sex Assigned at Date Recorded Not on file documented as of this encounter Nursing Notes Allyson Pool PA-C - 05/21/2017 12:18 PM CST I called patient's daughter onel to discuss the MRI results. She has some lesions in the calvarium. I consulted with Dr. 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 She is due for follow up this month for that. She has asked I arrange a follow up in clinic to also discuss the calvarium findings. I spoke to Onel (jeanne has dementia) and she will relay message to her mother and will call for theapt. Allyson Pool PA-C 12:28 PM 05/21/2017 RVISOR DIE CASTING documented in this encounter Plan of Treatment Not on filedocumented as of this encounter Visit Diagnoses Diagnosis Skull lesion - Primary Disorder of bone and cartilage, unspecif ied documented in this encounter Care Teams Oil Refinery Operator Relationship Specialty Start Date End Date Allyson Pool PA-C PCP - General Physician Drapery And Upholstery Measurer 09/26/16 02/28/21 [address] [place] [id number] documented as of this encounter
--- OUTSIDE RECORDS SUMMARY | 2022-02-21 10:30 | XMS_ITS | Encounter Summary ---
:1935 Author Organization [facility] Address [address] [address] Care Team Providers Name Role Phone Allyson Pool PA-C Primary Care Provider Reason for Visit Reason Comments WEAKNESS,ARM Procedure/Equipment (Routine) - Closed Specialty Diagnoses / Procedures Referred By Contact Refer red To Contact Diagnoses Left arm weakness Left hand weakness Jose Aldridge MD Procedures NEURO--EMG ELECTRICAL NERVE CONDUCTION STUDY [address] [facility] [address] [place] [address] Referral ID Status Reason Start Date Expiration Date Visits Requ ested Visits Authorized [id number] Closed 05/31/2017 08/30/2018 1 1 Encounter Details Date Type Department Care Team Description 06/26/2017 Procedure Visit [facility] 3931 Amparo Patiño, WEAKNESS,ARM Neurology 3931 [facility] [address] [facility] [address] [address] [place], [place] [phone] (Wo rk) Social History Tobacco Use Types Packs/Day Years Used Date Smoking Tobacco: Never Smokeless Tobacco: Never Alcohol Use Standard Drinks/Week Comments Yes 0 (1 standard drink = 0.6 oz pure alcoho l) rare occasions Sex Assigned at Date Recorded Not on file documented as of this encounter Progress Notes Antonio Patiño MD - 06/26/2017 12:30 PM CST Images from the original note were not included. Neurology Electrodiagnostic Evaluation EMG and NCS report Reason for Study: Progressive L arm weakness. Query: Sensroy nerve conduction studies of the L upper extremity demonstrated Technique: Nerve conduction studies were performed using surface electrodes. EMG was performed using a concentric needle electrode. Summary of Electrodiagnostic Findings: L upper extremity sensroy responses demonstrated normal latencies with borderline to reduce amplitudes throughout, potentially normal for age, however. Motor studies were normal. Needle EMG was abnormal. Widespread presence of fibrillation potentials and/or positive waves seen throughout the major myotomes of the L upper extremity. Associated neurogenic recruitment patterns identified in at least three muscles. Motor unit enlargement with abnormal polyphasia was identified at L deltoid. Abnormal polyphasia was also identified at L brachioradialis, but without associated motor unit enlargement. Theremainder of muscles identified demonstrated normal motor unit morphology. Limited needle EMG of theL lower extremity was normal. Electrodiagnostic Conclusion: This is an abnormal study. There is electrodiagnostic evidence of an acute to subacute neurogenic, predominately motor, process affecting the left upper extremity. Evidence of recent deneveration is seen across the major myotomes. This pattern of involvement does raise concern for motor neuron disease, specifically cervical segment onset (given normal limited EMG of the L LE). Conceivably, a cervical polyradiculopathy could yield similar changes. Other conditions such as multifocal motor neuropathy, Bob Landon CIDP variant,= or an atypical compressive myelopathy are possible, but viewed as less likely. Comment: A cervical MRI has been ordered which is certainly an appropriate next step in this patient's evaluation. If unrevealing, consider referral to neuromuscular clinic for further clinical evaluation. Thank you for involving neurology in the care of your patient. Please contact me with any question or concern. Antonio Patiño M.D. Board Certified Electromyographer [phone] (pager) [facility] Department of Neurology Elctrodiagnostic Laboratory Nerve Conduction & EMG Report Full Name: Fidelia Vyas Gender: Female Date of : 1935 Visit Date: 06/26/2017 12:24 Age: 81 Years 7 Months Old Examining Physician: Haroon SR Nerve / Sites Rec. Site Onset Lat Peak Lat FILENET DEVELOPER Amp PP Amp Segments Distance Peak Diff Velocity Temp. ms ms ??V ??V cm ms m/s ??C L Median - Digit II (Antidromic) Wrist Dig II 2.7 3.6 10.9 13.7 Wrist - Dig II 13 48 33.4 L Ulnar - Digit V (Antidromic) Wrist Dig V 2.0 3.3 8.1 8.1 Wrist - Dig V 11 54 33.6 L Radial - Anatomical snuff box (Forearm) Forearm Wrist 2.0 2.5 7.7 Forearm - Wrist 10 49 33.8 L Median, Ulnar - Transcarpal comparison Median Palm Wrist 1.6 2.1 18.5 43.5 Median Palm - Wrist 8 51 31.7 Ulnar Palm Wrist 1.5 2.1 1.0 6.8 Ulnar Palm - Wrist 8 55 32.7 Median Palm - Ulnar Palm 0.0 32.7 MNC Nerve / Sites Muscle Latency Amplitude Rel Amp Duration Segments Distance Lat Diff Velocity Temp. ms mV % ms cm ms m/s ??C L Median - APB Wrist APB 3.4 9.2 100 5.3 Wrist - APB 7 32.2 Elbow APB 7.1 9.0 97.6 6.0 Elbow - Wrist 20.2 3.8 54 32.9 L Ulnar - ADM Wrist ADM 2.7 7.5 100 6.6 Wrist - ADM 7 33.4 B.Elbow ADM 6.2 7.4 99.4 6.6 B.Elbow - Wrist 19.3 3.5 55 34.7 A.Elbow ADM 8.0 7.0 93.9 7.2 A.Elbow - B.Elbow 10 1.8 55 34.3 A.Elbow - Wrist 5.3 34.3 EMG EMG Summary Table Spontaneous MUAP Recruitment Muscle IA Fib PSW Fasc H.F. Amp Dur. PPP Pattern L. First dorsal interosseous N None None None None N N N Submax effort L. Extensor digitorum communis 1+ None None None CRD N N N N L. Pronator teres N None None None None N N N N L. Biceps brachii 2+ 2+ None None None N N N Mild Red L. Deltoid 2+ 2+ 1+ None None 1+ 1+ 1+ Sev red L. Brachioradialis 2+ 2+ 1+ None None N N 2+ Submax effort L. Flexor carpi ulnaris 2+ 2+ 2+ None None N N N Mild Red L. Flexor pollicis longus 2+ 2+ 2+ None None N N N N L. Tibialis anterior N None None None None N N N N L. Gastrocnemius (Medial head) N None None None None N N N N NT ACQUISITION ADMINISTRATOR documented in this encounter Plan of Treatment Not on filedocumented as of this encounter Visit Diagnoses Diagnosis Left arm weakness Other musculoskeletal symptoms referable to limbs Left hand weakness Muscle weakness (generalized) documented in this encounter Care Teams Urban Planner Relationship Specialty Start Date End Date Allyson Pool PA-C PCP - General Physician Utility Hand 09/26/16 02/28/21 [address] [place] [id number] documented as of this encounter
--- OUTSIDE RECORDS SUMMARY | 2022-02-21 10:30 | XMS_ITS | Encounter Summary ---
:1935 Author Organization [facility] Address [address] [place] [address] Care Team Providers Name Role Phone Allyson Pool PA-C Primary Care Provider Encounter Details Date Type Department Care Team Description 05/17/2017 Lab Visit [facility] Hypokalemia [address] [place] [address] Social History Tobacco Use Types [...] Name Priority Date/Time Associated Diagnosis Comme nts POTASSIUM Routine 05/17/2017 1:45 PM Hypokalemia Results f or this DIE CLEANER procedure are i n the results section . documented in this encounter Results Potassium (05/17/2017 1:45 PM DIE CLEANER) athologist Signature Potassium 3.5 3.5 - 5.2 PN SOFT mmol/L Specimen Anatomical Collection Method Collection Time Receive d Time (Source) Location / / Volume Laterality 05/17/2017 1:45 PM 8 1:45 DIE CLEANER PM DIE CLEANER Narrative PN SOFT - 05/17/2017 3:23 PM DIE CLEANER Performed at [facility], [address] [place] [address] CLIA number [id number] Allyson M Lamoure PA-C LAB_1 Performing Organization Address City/State/ZIP Code Phon e Number PN SOFT [address] [place], [place] [address] [phone] documented in this encounter Visit Diagnoses Diagnosis Hypokalemia Hypopotassemia documented in this encounter Care Teams Egg Packer Relationship Specialty Start Date End Date Allyson Pool PA-C PCP - General Physician Door Repairman 09/26/16 02/28/21 [address] [place] [address] documented as of this encounter
--- OUTSIDE RECORDS SUMMARY | 2022-02-21 10:30 | XMS_ITS | Encounter Summary ---
:1935 Author Organization [employer] Address [address] [place] [address] Care Team Providers Name Role Phone Allyson Pool PA-C Primary Care Provider Reason for Visit Reason Comments UPDATE Encounter Details Date Type Department Care Team Description 05/28/2017 Telephone Specialty Center 393 1 Neurology Doreen Escobar, RN UPDATE 3931 [place], [place] [address] Social History Tobacco Use Types Packs/Day Years Used Date Smoking Tobacco: Never Smokeless Tobacco: Never Alcohol Use Standard Drinks/Week Comments Yes 0 (1 standard drink = 0.6 oz pure alcoho l) rare occasions Sex Assigned at Date Recorded Not on file documented as of this encounter Nursing Notes Doreen Escobar RN - 05/28/2017 3:24 PM CST Updated Shaina. LOOKOUT Jose Aldridge MD - 05/28/2017 3:14 PM CST Yes please, thanks for asking LOOKOUT Doreen Escobar RN - 05/28/2017 3:02 PM CST Shaina from [facility] called requesting approval for f/u social work visit to have a care conference with patient and family to discuss extermination supervisor planning for pt and . Okay to approve? LOOKOUT documented in this encounter Plan of Treatment Not on filedocumented as of this encounter Visit Diagnoses Not on filedocumented in this encounter Care Teams Rubber Printing Machine Operator Relationship Specialty Start Date End Date Allyson Pool PA-C PCP - General Physician Cloud Systems Administrator 09/26/16 02/28/21 [address] [place] [id number] documented as of this encounter
--- OUTSIDE RECORDS SUMMARY | 2022-02-21 10:30 | XMS_ITS | Encounter Summary ---
:1935 Author Organization [employer] Address [address] [place] [address] Care Team Providers Name Role Phone Allyson Pool PA-C Primary Care Provider Encounter Details Date Type Department Care Team Description 05/29/2017 Lab Visit [facility] Gross hematuria [address] [place] [address] Social History Tobacco Use Types [...] Procedure Name Priority Date/Time Associated Comments Diagnosis URINALYSIS ROUTINE, Routine 05/29/2017 2:21 PM Gross hematuria Results for this MICRO/CULTURE IF POS ESL PROFESSOR procedu re are in the results section. documented in this encounter Results Urinalysis Routine, Micro/Culture if Pos (05/29/2017 2:21 PM ESL PROFESSOR) [facility] Method Time Signature Urine Type URINE:clean PN [...] U Specific 1.025 1.005 - PN SOFT [place] 1.030 Urobilinogen Negative Negative PN SOFT Urine Eu/dL Specimen Anatomical Collection Method Collection Time Receive d Time (Source) Location / / Volume Laterality 05/29/2017 2:21 PM 8 2:21 ESL PROFESSOR PM ESL PROFESSOR Narrative PN SOFT - 05/29/2017 2:24 PM ESL PROFESSOR Performed at [facility], [address] [facility], [place] [address] CLIA number [id number] Jovany Thorpe MD LAB_1 Performing Organization Address City/State/ZIP Code Phon e Number PN SOFT [address] [place] [address] documented in this encounter Visit Diagnoses Diagnosis Gross hematuria documented in this encounter Care Teams Resource Agent Relationship Specialty Start Date End Date Allyson Pool PA-C PCP - General Physician Machine Icer 09/26/16 02/28/21 [address] [place] [id number] documented as of this encounter
--- OUTSIDE RECORDS SUMMARY | 2022-02-21 10:30 | XMS_ITS | Encounter Summary ---
:1935 Author Organization [employer] Address [address] [place] [address] Care Team Providers Name Role Phone Allyson Pool PA-C Primary Care Provider Encounter Details Date Type Department Care Team Description 07/08/2017 Lab Visit [facility] Preoperative examination [address] [place] [address] Social History Tobacco Use Types Packs/Day Years [...] Name Priority Date/Time Associated Diagnosis Comme nts BASIC METABOLIC Routine 07/08/2017 3:22 PM Preoperative Result s for this PANEL TILE AND MARBLE INSTALLER examination procedure are i n the results section. COMPLETE BLOOD STAT 07/08/2017 3:22 PM Preoperative Results for this COUNT-NO DIFF TILE AND MARBLE INSTALLER examination procedure are in the results section. documented in this encounter Results CBC - Complete Blood Count-No Diff (07/08/2017 3:22 PM TILE AND MARBLE INSTALLER) P athologist Signature White Blood Cell 7.0 3.8 - 11.0 PN SOFT Count k/cmm Red Blood Cell 4.49 3.70 - PN SOFT Count 5.20 m/cmm Hemoglobin 13.5 11.8 - PN SOFT 15.5 g/dL Hematocrit 40.7 35.0 - PN SOFT 46.0 % Mean Corpuscular 90.6 80.0 - PN SOFT Volume 100.0 fL RDW 13.9 11.0 - PN SOFT 15.0 % Platelet Count 152 140 - 450 PN SOFT k/cmm Specimen Anatomical Collection Method Collection Time Receive d Time (Source) Location / / Volume Laterality 07/08/2017 3:22 PM 8 3:22 TILE AND MARBLE INSTALLER PM TILE AND MARBLE INSTALLER Narrative PN SOFT - 07/08/2017 3:25 PM TILE AND MARBLE INSTALLER Performed at [facility], [address] [place] [address] CLIA number [id number] Annetta Ashby MD LAB_1 Performing Organization Address City/State/ZIP Code Phon e Number PN SOFT [address] [place] [address] [phone] (ABNORMAL) Basic Metabolic Panel (07/08/2017 3:22 PM TILE AND MARBLE INSTALLER) athologist Signature Creatinine 0.80 0.55 - PN SOFT Serum 1.02 mg/dL Lab Glucose 104 (H) 70 - 100 PN SOFT mg/dL Comment: The stated glucose range is for the fast ing state. Non-fasting glucose range is 70-180 mg/d L CO2 28 22 - 31 mmol/L PN SOFT Chloride 105 98 - 109 mmol/L PN SOFT Potassium 3.6 3.5 - 5.2 mmol/L PN SOFT Sodium 140 136 - 145 mmol/L PN SOFT Blood Urea Nitrogen 14 9 - 26 mg/dL PN SOFT Calcium 9.1 8.4 - 10.2 mg/dL PN SOFT Est GFR Am >60 >60 mL/min/1.73m2 PN SOFT Est GFR Non-Afr Am >60 >60 mL/min/1.73m2 PN SOFT Comment: Normal>60, moderate decrease 30 - 59, se lydia decrease 15 - 29, renal failure <15 mL/min/1.73 m2 NOTE: ??Choose the eGFR result above apolonia ropriate for the race of the patient. Specimen Anatomical Collection Method Collection Time Receive d Time (Source) Location / / Volume Laterality 07/08/2017 3:22 PM 8 4:59 TILE AND MARBLE INSTALLER PM TILE AND MARBLE INSTALLER Narrative PN SOFT - 07/08/2017 6:15 PM TILE AND MARBLE INSTALLER Performed at [facility], [address] [place] [address] CLIA number [id number] Annetta Ashby MD LAB_1 Performing Organization Address City/State/ZIP Code Phon e Number PN SOFT [address] [place] [address] documented in this encounter Visit Diagnoses Diagnosis Preoperative examination Preoperative examination, unspecified documented in this encounter Care Teams Field Assembly Supervisor Relationship Specialty Start Date End Date Allyson Pool PA-C PCP - General Physician Bottle Label Inspector 09/26/16 02/28/21 [address] [place] [address] documented as of this encounter
--- OUTSIDE RECORDS SUMMARY | 2022-02-21 10:30 | XMS_ITS | Encounter Summary ---
:1935 Author Organization [facility] Address [address] [place] [address] Care Team Providers Name Role Phone Allyson Pool PA-C Primary Care Provider Reason for Visit Reason Comments Orders Needed Encounter Details Date Type Department Care Team Description 07/08/2017 Telephone [facility] 3931 Viridiana Ball RN Orders Needed Neurology [address] [place], [place] [address] Social History Tobacco Use Types Packs/Day Years Used Date Smoking Tobacco: Never Smokeless Tobacco: Never Alcohol Use Standard Drinks/Week Comments Yes 0 (1 standard drink = 0.6 oz pure alcoho l) rare occasions (1 per month) Sex Assigned at Date Recorded Not on file documented as of this encounter Nursing Notes Viridiana Ball RN - 07/08/2017 8:44 AM CST Order needed for one more RN visit to discharge from Homecare. Verbal order given. She will fax for signature. LOADER documented in this encounter Plan of Treatment Not on filedocumented as of this encounter Visit Diagnoses Not on filedocumented in this encounter Care Teams Egg Buyer Relationship Specialty Start Date End Date Allyson oPol PA-C PCP - General Physician Customer Engagement Manager 09/26/16 02/28/21 [address] [place] [id number] documented as of this encounter
--- OUTSIDE RECORDS SUMMARY | 2022-02-21 10:30 | XMS_ITS | Encounter Summary ---
:1935 Author Organization [employer] Address [address] [place] [address] Care Team Providers Name Role Phone Allyson Pool PA-C Primary Care Provider Encounter Details Date Type Department Care Team Description 06/30/2017 Notes/Orders [place]ire[place] [address] [facility] ogy Jose Aldridge MD [address] [facility] [place] [address] [address] [place] [address] (Wo rk) Social History Tobacco Use Types Packs/Day Years Used Date Smoking Tobacco: Never Smokeless Tobacco: Never Alcohol Use Standard Drinks/Week Comments Yes 0 (1 standard drink = 0.6 oz pure alcoho l) rare occasions Sex Assigned at Date Recorded Not on file documented as of this encounter Progress Notes Jose Aldridge MD - 06/30/2017 6:56 PM CST Please let pt know that her EMG shows problems with the nerve input to the left arm. We need to try to get the MRI c spine done (looks like it was maybe cancelled?) to see if this gives us a cause. Otherwise if that doesn't give us a reason, Dr. Patiño who did her EMG has offered to see her in clinic for an expedited visit. She has dementia, so may have to discuss with a family member. Thanks. US REP Doreen Escobar, RN - 06/30/2017 6:56 PM CST LM for pt's to call back US REP Doreen Escobar, RN - 06/30/2017 6:56 PM CST Updated pt's . MRI rescheduled. US REP documented in this encounter Plan of Treatment Not on filedocumented as of this encounter Visit Diagnoses Not on filedocumented in this encounter Care Teams Design Technician Relationship Specialty Start Date End Date Allyson Pool PA-C PCP - General Physician Chemical Equipment Sales Engineer 09/26/16 02/28/21 [address] [place] [address] documented as of this encounter
--- OUTSIDE RECORDS SUMMARY | 2022-02-21 10:30 | XMS_ITS | Encounter Summary ---
:1935 [address] [facility] Address [address] [place] [address] Care Team Providers Name Role Phone Allyson Pool PA-C Primary Care Provider Reason for Referral Procedure/Equipment (Routine) - Incomplete Specialty Diagnoses / Procedures Referred By Contact Refer red To Contact Diagnoses Cervical myelopathy (HRC) Cervical stenosis of spine Warner Machado PA-C Procedures [place] Collar 2 piece([id number]) [address] [facility] [address] [place], [place] [address] Referral ID Status Reason Start Date Expiration Date Visits V isits Requested Authorized [id number] Incomplete 07/05/2017 10/04/2018 1 1 DRILL OPERATOR HELPER Reason for Visit Reason Comments CONSULT Consult/Transfer Care (Routine) - Closed Specialty Diagnoses / Procedures Referred By Contact Refer red To Contact Diagnoses Abnormal MRI Jose Aldridge MD [address] [facility] [address] [place], [place] [phone] Referral ID Status Reason Start Date Expiration Date Visits Requ ested Visits Authorized [id number] Closed 07/04/2017 10/03/2018 1 1 Encounter Details Date Type Department Care Team Description 07/05/2017 Office Visit [facility]ty [facility] Warner Machado Ce rvical myelopathy (HRC) (Primary Dx); Neurosurgery GOLDY Cervical stenosis of spine [address] [facility] [address] [place] [address] [phone] (Wo rk) Social History Tobacco Use Types Packs/Day Years Used Date Smoking Tobacco: Never Smokeless Tobacco: Never Alcohol Use Standard Drinks/Week Comments Yes 0 (1 standard drink = 0.6 oz pure alcoho l) rare occasions Sex Assigned at Date Recorded Not on file documented as of this encounter Last Filed Vital Signs Vital Sign Reading Time Taken Comments Blood Pressure 131/69 07/05/2017 2:38 PM CORE DRILL OPERATOR HELPER Pulse 62 07/05/2017 2:38 PM CORE DRILL OPERATOR HELPER Temperature - - Respiratory Rate 17 07/05/2017 2:38 PM CORE DRILL OPERATOR HELPER Oxygen Saturation - - Inhaled Oxygen Concentration - - Weight - - Height - - Body Mass Index - - documented in this encounter Patient Instructions Patient InstructionsBeDestin morgan RN, BSN - 07/05/2017 2:30 PM CST You will be contacted by the manager of manufacturing Saturday07/08/17 with further details about your surgery. Neurosurgery scheduling [phone] DRILL OPERATOR HELPER documented in this encounter Progress Notes Warner Machado PA-C - 07/05/2017 4:36 PM CST NAME: FIDELIA LUNDBERG MR#: [id number] CSN: [id number] AUTHENTICATING CLINICIAN: ANGELINA Rubio CONFIRM #: [id number] LOC: 262 CLINIC CONSULTATION DATE OF CONSULTATION: 07/05/2017 : 1935 REQUESTING PHYSICIAN: Jose Aldridge MD SUBJECTIVE: Mrs. Lundberg is a 81-year-old female with a medical history significant for previous myocardial infarction, hyperlipidemia, hypertension, memory loss and Alzheimer's dementia, who is referred to us by Neurology, Dr. Aldridge, for cervical stenosis at C3-4. The patient had noted over the past 8 months an i ncrease in numbness in her hands in a glove-like distribution, in addition to weakness in her left shoulder, difficulty walking, decrease in dexterity in her fingers, and more frequent falls. She was evaluated with EMG and a cervical MRI, and presents to neurosurgery clinic today. Today, patient states she is not having any neck pain or pain in her arms, but the numbness in her hands is constant and makes holding things very difficult. She denies numbness in her feet, but her family, who contributes to the history, state that she is getting worse and having more difficulty walking. She is in a wheelchair today. SOCIAL HISTORY: Nonsmoker. . SURGICAL HISTORY: Noncontributory. OBJECTIVE: VITAL SIGNS: Blood pressure 131/69, pulse 60, respirations 17. GENERAL: Alert, oriented, appropriate with conversation. Able to provide some aspects of the historyherself. NEUROLOGIC: Right upper extremity with 5/5 strength in deltoid, triceps, biceps, hand grasp, and intrinsics. The left upper extremity with 2/5 strength in deltoid, 2/5 strength in biceps, 4/5 strength in triceps, 2+ strength in intrinsics and 3+ strength in hand grasp. Reflexes absent in bilateral triceps, 1+ biceps 1+ brachioradialis. Karyn's sign negative on the right, positive on the left. Lower extremities: 5/5 strength in bilateral lower extremities. Reflexes hyperreflexic in the left patella, 2+ right patella, absent right Achilles and 2+ left Achilles. Positive for sustained ankle clonus bilaterally. Upgoing toes on the left, equivocal on the right. IMAGING REVIEW: Cervical MRI demonstrates severe cervical stenosis at C3-4 with abnormal cord signal, as well as degenerative changes and stenosis at C4-5 to a lesser degree. At C3-4 there is a disk herniation which is causing the stenosis. ASSESSMENT: Mrs. 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 She also has stenosis at C4-5 to a lesser degree. She is symptomatic and at high risk for further cervical spinal cord injury. PLAN: We recommend a C3-4 and C4-5 anterior cervical diskectomy and fusion with spinal cord monitoring. Wediscussed with the patient that the surgery would be done for the purpose of preventing further neurologic decline, but will not necessarily improve any of her symptoms, although we hope she will gain some improvement from surgery. We discussed the risks of the surgery which include infection, bleeding, damage to spinal cord leading to paralysis, damage to the swallowing structures leading to dysphagia, the possibility of needing a feeding tube. The patient understands the risks of surgery, and also understands risks of not doing surgery, which includes risk of spinal cord injury and paralysis, and would like to proceed with surgery. We recommend the patient have surgery on July 09. She will have a preoperative history and physical on the to make sure she is able to be cleared medically for surgery. Dr. Hernandez met with the patient today, reviewed the above assessment and plan. A total of 60 minutes was spent with the patient today. [facility]:MEDQ C: CONFIRM #: [id number] DRILL OPERATOR HELPER Lynda Anderson RN - 07/05/2017 2:30 PM CST Patient Education Topic: Procedure/Prep Learner(s): Patient and Family Knowledge Level: Basic Readiness to Learn: Ready Method: Verbal Explanation and Written Material Outcome: Able to verbalize instructions Barriers to Learning: Disease state(alzheimers) DRILL OPERATOR HELPER Warner Machado PA-C - 07/05/2017 2:30 PM CST This office note has been dictated. DRILL OPERATOR HELPER documented in this encounter Plan of Treatment Not on filedocumented as of this encounter Visit Diagnoses Diagnosis Cervical myelopathy (HRC) - Primary Cervical spondylosis with myelopathy Cervical stenosis of spine Spinal stenosis in cervical region documented in this encounter Care Teams Lip And Gate Builder Relationship Specialty Start Date End Date Allyson Pool PA-C PCP - General Physician Refrigerator Assembler 09/26/16 02/28/21 [id number] [place] [id number] documented as of this encounter
--- OUTSIDE RECORDS SUMMARY | 2022-02-21 10:30 | XMS_ITS | Encounter Summary ---
:1935 Author Organization [facility] [employer] Address [address] [place] [address] Care Team Providers Name Role Phone Allyson Pool PA-C Primary Care Provider Encounter Details Date Type Department Care Team Description 05/24/2017 Lab Visit [facility] Vitamin D deficiency [address] [place] [address] Social History Tobacco Use Types [...] Name Priority Date/Time Associated Diagnosis Comme nts VITAMIN D Routine 05/24/2017 2:23 PM Vitamin D deficiency R esults for this 25-HYDROXY, TOTAL SURFBOARD MAKER procedure are in the results section. documented in this encounter Results Vitamin D 25-Hydroxy, Total (05/24/2017 2:23 PM SURFBOARD MAKER) P athologist Signature Vitamin D 25 Oh 28 20 - 80 PN SOFT ng/mL Comment: Deficiency = <20 Adequate ??= 20-29 Preferred = 30-50 Uncertain safety = 51-80 High = >80 Specimen Anatomical Collection Method Collection Time Receive d Time (Source) Location / / Volume Laterality 05/24/2017 2:23 PM 8 6:12 SURFBOARD MAKER PM SURFBOARD MAKER Narrative PN SOFT - 05/24/2017 7:32 PM SURFBOARD MAKER Performed at [facility], [address] [place] [address] CLIA number [id number] Allyson Pool PA-C LAB_1 Performing Organization Address City/State/ZIP Code Phon e Number PN SOFT [address] [place] [address] documented in this encounter Visit Diagnoses Diagnosis Vitamin D deficiency (HRC) Unspecified vitamin D deficiency documented in this encounter Care Teams Vascular Nurse Relationship Specialty Start Date End Date Allsyon Pool PA-C PCP - General Physician Gas Inspector 09/26/16 02/28/21 [id number] [place] Do [id number] documented as of this encounter
--- OUTSIDE RECORDS SUMMARY | 2022-02-21 10:30 | XMS_ITS | Encounter Summary ---
:1935 Author Organization [facility] Address [address] [place] [address] Care Team Providers Name Role Phone Allyson Pool PA-C Primary Care Provider Reason for Visit Reason Comments Follow-up Encounter Details Date Type Department Care Team Description 05/29/2017 Office Visit [facility] Cancer Clifton Barboza noclonal gammopathy Care at [facility] MILADIS Farrell i present on serum [facility] [address] [place] [address] protein [address] [facility] S electrophoresis [place], [place] [address] [place] [address] (Primary Dx) [phone] [address] Social History Tobacco Use Types Packs/Day Years Used Date Smoking Tobacco: Never Smokeless Tobacco: Never Alcohol Use Standard Drinks/Week Comments Yes 0 (1 standard drink = 0.6 oz pure alcoho l) rare occasions Sex Assigned at Date Recorded Not on file documented as of this encounter Last Filed Vital Signs Vital Sign Reading Time Taken Comments Blood Pressure 133/71 05/29/2017 3:23 PM COOK JELLY Pulse 60 05/29/2017 3:23 PM COOK JELLY Temperature 36.9 ??C (98.4 ??F) 05/29/2017 3:23 PM COOK JELLY Respiratory Rate - - Oxygen Saturation - - Inhaled Oxygen Concentration - - Weight 99.8 kg (220 lb) 05/29/2017 3:23 PM COOK JELLY Height - - Body Mass Index 38.97 12/05/2016 3:05 PM CDT documented in this encounter Progress Notes Anangur Cheryl, Marlys Teresa, MBBS - 05/29/2017 12:00 PM CST NAME: FIDELIA LUNDBERG MR#: [id number] CSN: [id number] AUTHENTICATING CLINICIAN: MILADIS Dennis CONFIRM #: [id number] LOC: 3704 CLINIC PROGRESS NOTE DATE OF VISIT: 05/29/2017 : 1935 Diagnosis: IGG kappa MGUS History: Fidelia is a 81-year-old with history of hypertension, coronary artery disease, with cardiac arrest and VFib in 2002, first MO reportedly at age 44. She comes today [...] Paxil and triamterene hydrochlorothiazide. INTERVAL HISTORY: Fidelia comes here today for followup. Denies any new symptoms. Overall, she is feeling well. Denies any chest pain, shortness of breath, abdominal pain, nausea, or vomiting. She is wheelchair-bound with limited mobility and has some joint pain without any new symptoms. REVIEW OF SYSTEMS: Otherwise negative. ?? [...] or lesions. ?? LABORATORY DATA: White count is 6.7, hemoglobin 14, platelets 123, creatinine 0.8, on 05/24/2017. ?? ASSESSMENT/PLAN: Fidelia is a 81-year-old with history of hypertension, coronary artery disease, status post ventricular fibrillation, cardiac arrest in 2002 has been referred here for evaluation of monoclonal protein. ? MGUS: Fidelia is here today for followup. I discussed with her and her family about her recent findings on imaging with an MRI of the brain which shows possible couple of calvarial lesions measuring about 1.6 cm. At this time it is indeterminate and in the setting of MGUS it could represent myeloma vs m etastatic disease from other sites. She has had regular mammograms and there is no clinical suspicion for other malignancies. I discussed with her about obtaining a scan at this time and she is not interested in that. At this time since her monoclonal protein is quite stable without any other featuresof CRAB And I do not think this is related to progression/myeloma. We could continue to monitor thatwith repeat scans to show stability of these lesions. I discussed this in detail and she will followup in 3 months. CA:MEDQ C: CONFIRM #: [id number] JELLY documented in this encounter Plan of Treatment Not on filedocumented as of this encounter Results (ABNORMAL) Electrophoresis Protein, Serum - in 4 months (10/02/2017 1:32 PM CDT) athologist Signature Total Protein 6.8 6.4 - 8.3 PN SOFT g/dl Comment: Performed at [facility], [address] [place] [address] ??[id number] Albumin 3.8 3.4 - 4.8 g/dl PN SOFT Alpha 1 0.3 0.2 - 0.5 g/dl PN SOFT Alpha 2 0.8 0.5 - 1.1 g/dl PN SOFT Beta 0.7 0.6 - 1.1 g/dl PN SOFT Gamma 1.2 0.7 - 1.6 g/dl PN SOFT Monoclonal Joaquin 0.5 (H) 0.0 g/dl PN SOFT Comment: IgG Mullens Interpretation SEE BELOW PN SOFT Comment: A monoclonal protein has been detected b y serum protein electrophoresis. Signed out by SEE BELOW PN SOFT Comment: [facility] Performed at [facility], [address] [place] [address] ??[address] CLIA Number [id number] Specimen Anatomical Collection Method Collection Time Receive d Time (Source) Location / / Volume Laterality 10/02/2017 1:32 PM 8 6:17 CDT PM CDT Marlys REDDING LAB_1 Performing Organization Address City/[facility] Phon e Number PN SOFT [address] [place] [address] (ABNORMAL) Free Light Chains, Serum - in 4 months (10/02/2017 1:32 PM CDT) P athologist Signature Mullens Free 2.73 (H) 0.33 - PN SOFT Light Chains 1.94 mg/dl Lambda Free 1.59 0.57 - PN SOFT Light Chains 2.63 mg/dl Mullens/Lambda 1.72 (H) 0.26 - PN SOFT Ratio Free 1.65 Light Chains Comment: Performed at [facility], [address] [place] [address] ??[address] CLIA Number [id number] Specimen Anatomical Collection Method Collection Time Receive d Time (Source) Location / / Volume Laterality 10/02/2017 1:32 PM 8 6:12 CDT PM CDT Marlys RED[facility] LAB_1 Performing Organization Address City/[facility] Phon e Number PN SOFT [address] [place] [address] Creatinine / GFR (10/02/2017 1:32 PM CDT) [...] - 10/02/2017 1:49 PM CDT Performed at [facility], [address] [place] [address] CLIA number [id number] Marlys REDD[facility] LAB_1 Performing Organization Address [facility] Phon e Number PN SOFT [address] [place] [address] [phone] Bilirubin, Total (10/02/2017 1:32 PM CDT) athologist Signature Bilirubin Total 1.0 0.2 - 1.2 PN SOFT mg/dL Specimen Anatomical Collection Method Collection Time Receive d Time (Source) Location / / Volume Laterality 10/02/2017 1:32 PM 8 1:32 CDT PM CDT Narrative PN SOFT - 10/02/2017 1:49 PM CDT Performed at [facility], [facility] [address] [place] [id number] CLIA number [id number] Marlys REDDING LAB_1 Performing Organization Address [facility] Phon e Number PN SOFT [address] [place] [address] [phone] Calcium (10/02/2017 1:32 PM CDT) P athologist Signature Calcium 9.2 8.4 - 10.4 PN SOFT mg/dL Specimen Anatomical Collection Method Collection Time Receive d Time (Source) Location / / Volume Laterality 10/02/2017 1:32 PM 8 1:32 CDT PM CDT Narrative PN SOFT - 10/02/2017 1:49 PM CDT Performed at [facility], [address] [place] [address] CLIA number [id number] Marlys REDDING LAB_1 Performing Organization Address City/[facility] Code Phon e Number PN SOFT [address] [place] [address] [phone] AST (10/02/2017 1:32 PM CDT) Patholo gist Method Time Signature Aspartate 20 10 - 40 PN SOFT Aminotransferase U/L Specimen Anatomical Collection Method Collection Time Receive d Time (Source) Location / / Volume Laterality 10/02/2017 1:32 PM 8 1:32 CDT PM CDT Narrative PN SOFT - 10/02/2017 1:49 PM CDT Performed at [facility], [facility] [address] [place] [address] CLIA number [id number] Marlys REDDING LAB_1 Performing Organization Address [facility] Phon e Number PN SOFT [address] [place] [address] Alkaline Phosphatase, Total (10/02/2017 1:32 PM CDT) P athologist Signature Alk Phos 53 40 - 150 U/L PN SOFT Specimen Anatomical Collection Method Collection Time Receive d Time (Source) Location / / Volume Laterality 10/02/2017 1:32 PM 8 1:32 CDT PM CDT Narrative PN SOFT - 10/02/2017 1:49 PM CDT Performed at [facility], [facility] [address] [place] [address] CLIA number [id number] Marlys REDDING LAB_1 Performing Organization Address [facility]/ZIP Code Phon e Number PN SOFT [address] [place] [address] Complete Blood Count W/Diff - in 4 months (10/02/2017 1:32 PM CDT) P athologist Signature White Blood Cell 7.5 3.8 [...] - 10/02/2017 1:35 PM CDT Performed at [facility], [address] [place] [address] CLIA number [id number] Marlysra Moore Margarita REDDING LAB_1 Performing Organization Address [facility] Phon e Number PN SOFT [address] [place] [address] documented in this encounter Visit Diagnoses Diagnosis Monoclonal gammopathy present on serum p rotein electrophoresis (HRC) - Primary Monoclonal gammopathy present on serum p rotein electrophoresis (HRC) documented in this encounter Care Teams Boiler Operator Relationship Specialty Start Date End Date Allyson Pool PA-C PCP - General Physician Product Safety Test Engineer 09/26/16 02/28/21 [id number] [place] Do [id number] documented as of this encounter
--- OUTSIDE RECORDS SUMMARY | 2022-02-21 10:30 | XMS_ITS | Encounter Summary ---
:1935 Author Organization [employer] Address [address] [place] [address] Care Team Providers Name Role Phone Allyson Pool PA-C Primary Care Provider Reason for Referral (Routine) - Incomplete Specialty Diagnoses / Procedures Referred By Contact Refer red To Contact Diagnoses Cervical myelopathy (HRC) Muscle weakness (generalized) Numbness Stenosis, cervical spine Phuong Vogel, INDUSTRIAL SERVICER, Procedures Case Request OR - Neurosurgery: C3-4;C4-5 anterior cervical discectomy and fusion TIPPLE REPAIRER [address] [place], [place] [address] Referral ID Status Reason Start Date Expiration Date Visits V isits Requested Authorized [id number] Incomplete 07/08/2017 10/07/2018 1 1 NE DENTIST Encounter Details Date Type Department Care Team Description 07/08/2017 Notes/Orders Specialty Center Phuong Hernandez, Cervical myelopathy (HRC) (Primary Dx); Neurosurgery INDUSTRIAL SERVICER, TIPPLE REPAIRER Muscle weakness (generalized); [facility] [place], [place] [address]susy Fontaine mbness; S. S Stenosis, [place] [address] [phone] (Wo rk) Social History Tobacco Use Types [...] (HRC) - Primary Cervical spondylosis with myelopathy Muscle weakness (generalized) Numbness Disturbance of skin sensation Stenosis, cervical spine Spinal stenosis in cervical region documented in this encounter Care Teams Meat Team Member Relationship Specialty Start Date End Date Allyson Pool PA-C PCP - General Physician Rn Physician Office 09/26/16 02/28/21 [id number] [place] [id number] documented as of this encounter
--- OUTSIDE RECORDS SUMMARY | 2022-02-21 10:30 | XMS_ITS | Encounter Summary ---
:1935 Author Organization [facility] Address [address] [place] [address] Care Team Providers Name Role Phone Allyson Pool PA-C Primary Care Provider Reason for Referral Procedure/Equipment (Routine) - Closed Specialty Diagnoses / Procedures Referred By Contact Refer red To Contact Diagnoses Left arm weakness Left hand weakness Jose Aldridge MD Procedures NEURO--EMG ELECTRICAL NERVE CONDUCTION STUDY [address] [facility] [address] [place] [address] Referral ID Status Reason Start Date Expiration Date Visits Requ ested Visits Authorized [id number] Closed 05/31/2017 08/30/2018 1 1 STANT INFANT TEACHER Procedure/Equipment (Routine) - Incomplete Specialty Diagnoses / Procedures Referred By Contact Refer red To Contact Diagnoses Left arm weakness Left hand weakness Jose Aldridge MD Procedures MR Cervical Spine W/WO IV Cont [address] [facility] [address] [place] [address] Referral ID Status Reason Start Date Expiration Date Visits V isits Requested Authorized [id number] Incomplete 05/31/2017 08/30/2018 1 1 STANT INFANT TEACHER Reason for Visit Reason Comments Follow-up Consult/Transfer Care (Routine) - Closed Specialty Diagnoses / Procedures Referred By Contact Refer red To Contact Diagnoses Memory loss Sensory neuronopathy Allyson Pool, GOLDY [address] [place] [id number] Referral ID Status Reason Start Date Expiration Date Visits Requ ested Visits Authorized [id number] Closed 05/15/2017 08/14/2018 1 1 Encounter Details Date Type Department Care Team Description 05/31/2017 Office Visit [facility] 1601 Jose Aldridge, Left arm weakness (Primary Dx); Neurology MD Left hand weakness; [address] [facility] [place] [address] [place] [address] (Wo rk) Social History Tobacco Use Types Packs/Day Years Used Date Smoking Tobacco: Never Smokeless Tobacco: Never Alcohol Use Standard Drinks/Week Comments Yes 0 (1 standard drink = 0.6 oz pure alcoho l) rare occasions Sex Assigned at Date Recorded Not on file documented as of this encounter Last Filed Vital Signs Vital Sign Reading Time Taken Comments Blood Pressure 104/60 05/31/2017 1:04 PM ASSISTANT INFANT TEACHER Pulse 60 05/31/2017 1:04 PM ASSISTANT INFANT TEACHER Temperature - - Respiratory Rate 12 05/31/2017 1:04 PM ASSISTANT INFANT TEACHER Oxygen Saturation - - Inhaled Oxygen Concentration - - Weight - - Height - - Body Mass Index - - documented in this encounter Patient Instructions Patient InstructionsDoreen Escobar RN - 05/31/2017 1:00 PM CST Your left arm and hand weakness looks new since your last visit with me. I will order a couple of tests to see if we can figure out the cause. MRI cervical spine - June 04. Check in at 12:30 PM with your medication, company driver and ID/insurance card. This is scheduled at the [facility] EMG (nerve function test)- Jun 26 at 12:30 PM. This is on the 5th floor of the [facility] connected to [facility]. Park in the [place] parking ramp. We will call you with the results. STANT INFANT TEACHER documented in this encounter Progress Notes Jose Aldridge MD - 05/31/2017 12:00 PM CST NAME: WAQAR LUNDBERG MR#: [id number] CSN: [id number] AUTHENTICATING CLINICIAN: Jose Aldridge MD CONFIRM #: [id number] LOC: 223 CLINIC PROGRESS NOTE DATE OF VISIT: 05/31/2017 : 1935 CHIEF COMPLAINT: Followup for recent hospitalization. HISTORY OF PRESENT ILLNESS: Waqar Lundberg is a 81-year-old woman, here for followup. I saw her in consultation in March. She had evidence of probable Alzheimer's dementia as well as sensory neuropathy. She was recently hospitalized at the end of April for increased weakness and gait difficulties. She was hypokalemic, but no other significant causes were found. She has been getting home care therapies ever since then. Memory loss seems to have gotten a bit worse and she is requiring more supervision. She is on donepezil 10 mg per day which she tolerates quite well. In the interim, perhaps over the last 3-4 weeks, she has developed significant weakness of the left upper extremity. She says that it feels heavy and that it is hard to move the hand. It feels somewhatdead. This was not there when she was in the hospital at the end of April. She did not have anyspecific neurologic workup when she was there other than a noncontrast head CT. Otherwise, she has had recent followup MRI scan of the brain on May 17 as a followup to a scan that was done in March. This showed an unchanged 8 mm cystic lesion in the right frontal durant radiata, which was unchanged. It was thought to be a benign cystic lesion. There were mild to moderate small vessel ischemic changes and no acute changes of any kind. She has also had EMG on January 23, 2017, which did show a diffuse sensory axonal neuropathy. She also had a borderline median sensory neuropathy at the right wrist and borderline left ulnar motor and sensory neuropathy at the elbow with a right ulnar sensory neuropathy at the elbow. She has had a little bit more difficulty with walking, but this seems to be somewhat fluctuating. Itseems to be more of a cognitive symptom per the . PHYSICAL EXAM: VITAL SIGNS: Blood pressure 104/60, pulse 60, respiratory rate 12. NEUROLOGIC: Remarkable for normal extraocular movements. Facial strength was symmetric. Tongue and palate midline. Motor: Strength was normal 5/5. The strength was 5/5 and normal in the right upper extremity and both lower extremities. In the left upper extremity, she had proximal strength for shoulder abduction atabout 4- out of 5, elbow flexion of approximately 4/5, elbow extension of 5- out of 5, wrist flexionof 5- out of 5, wrist extension of 2 to 3 out of 5. Interossei muscles were 2/5 and finger extensionwas 1 to 2 out of 5. Librarian [employer] was 4 to 4+ out of 5. Sensory exam was remarkable for fairly intact pinprick sensation in the left distal upper extremity and hand. It is relatively symmetric at least with the right upper extremity. Coordination testing was clumsy on the left and fairly normal on the right. IMPRESSION: 1.History of probable Alzheimer's dementia. 2.Sensory axonal neuropathy. 3.Subacute left upper extremity weakness. The cause for her weakness is certainly not explained by her sensory neuropathy. I would say that this would seem to localize to either the proximal left upper extremity such as a brachial plexopathy or multiple radiculopathies, although she has painless weakness at this time. It does not look like a central nervous system related issue as she really does not have any findings above the left upper extremity. I will start with left upper extremity EMG and MRI of the cervical spine for further evaluation. We will contact her on the results of this. She will continue donepezil for her dementia and also home therapy for weakness. We will follow up on the test results and make further recommendations then. 25 minutes out of a total 40-minute visit were spent in counseling and discussion going over these recommendations and answering questions. CC: ANGELINA WOODS [id number] [place] [address] BASILIA:RANDI C: CONFIRM #: [id number] STANT INFANT TEACHER documented in this encounter Plan of Treatment Not on filedocumented as of this encounter Results MR Cervical Spine W/WO IV Cont (07/04/2017 1:29 PM ASSISTANT INFANT TEACHER) Anatomical Region Laterality Modality Spine, C-Spine, Neck, Vascular Magnetic Resonance Specimen (Source) Anatomical Collection Method Collection Time Re ceived Time Location / / Volume Laterality 07/04/2017 12:50 PM ASSISTANT INFANT TEACHER Impressions 07/04/2017 2:08 PM ASSISTANT INFANT TEACHER IMPRESSION: ?? 1. Severe central spinal stenosis with s uperimposed protrusion and mass affect on the cord is seen at C3-4 with abnormal cord signal secondary to mass effect. Protrusion is slightly eccentric to the lef t. Case discussed with neurology nurse Aleks amador at 2:00 PM on 07/04/2017. 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 2. There is probable severe central spin al stenosis at the C4-5 level also with abnormal cord signal and severe bilateral neural foraminal narrowing that appears worse on the left. 3. At C5-6 there is moderately severe to severe central spinal stenosis with moderately severe to severe right and severe left neural foraminal narrowing. 4. At C6-7 there is moderate to moderate ly severe central spinal stenosis with severe left and mild to moderate right neural foraminal narrowing. 5. The thyroid appears enlarged with mul tiple cystic lesions partially visualized on the left lobe. Findings may be consistent with multinodular goiter. Consider further evaluation with ultrasound. Narrative 07/04/2017 2:08 PM ASSISTANT INFANT TEACHER INDICATION: LUE diffuse weakness ?? TECHNIQUE: ??MRI of the cervical spine w ith and without contrast, 10 mL GADOBUTROL 1 MMOL/ML IV SOLN. ? COMPARISON: ??None. ? FINDINGS: Sagittal: ??The visualized midline poste rior fossa structures are unremarkable. ??Abnormal cord signal is seen involving the cervical cord from C3-4 through C4- 5. ??Degenerative marrow signal. ??Suggest ion of potential congenitally short pedi cles. ?Thyroid appears enlarged with multiple cystic lesions partially visualized on the left lobe findings may be consistent with multinodular goiter. Consider further evaluation with ultrasound. Axial: C2-3: Small posterior disc osteophyte co mplexes seen without significant mass effect. C3-4: Severe central spinal stenosis wit h superimposed protrusion and mass affect on the cord is seen at C3-4 with abnormal cord signal secondary to mass effect. Protrusion is slightly eccentric to the left. AP canal diameter is about 3 mm. T here is mild left neural foraminal narrowing secondary to uncovertebral joint and facet arthropathy. C4-5: Posterior disc osteophyte complexe s seen with probable severe central spinal stenosis. There is severe bilateral neural foraminal narrowing. AP canal diameter is about 5 to 6 mm. There may be some abnormal cord signal at this level as well. C5-6: Posterior disc osteophyte complex is seen with moderately severe to potentially severe central spinal stenosis with probable moderately severe to severe right and severe left neural foraminal narr owing secondary to uncovertebral joint a nd facet arthropathy. C6-7: Posterior disc osteophyte complexe s seen with probable moderate to moderately severe central spinal stenosis and severe left and mild to moderate right neural foraminal narrowing. C7-T1: There is mild anterolisthesis of C7 on T1 and there is mild proximal bilateral neural foraminal narrowing and severe facet arthropathy. Procedure Note Rachael Dorantes MD - 07/04/2017Formattin g of this note might be different from the original. INDICATION: LUE diffuse weakness TECHNIQUE: MRI of the cervical spine wit h and without contrast, 10 mL GADOBUTROL 1 MMOL/ML IV SOLN. COMPARISON: None. FINDINGS: Sagittal: The visualized midline posteri or fossa structures are unremarkable. Abnormal cord signal is seen involving the cervical cord from C3-4 through C4-5. Degenerative marrow signal. Suggestion of potential congenitally short pedicles. T hyroid appears enlarged with multiple cystic lesions partially visualized on the left lobe findings may be consistent with multinodular goiter. Consider further evaluation with ultrasound. Axial: C2-3: Small posterior disc osteophyte co mplexes seen without significant mass effect. C3-4: Severe central spinal stenosis wit h superimposed protrusion and mass affect on the cord is seen at C3-4 with abnormal cord signal secondary to mass effect. Protrusion is slightly eccentric to the left. AP canal diameter is about 3 mm. There is mild le ft neural foraminal narrowing secondary to uncovertebral joint and facet arthropathy. C4-5: Posterior disc osteophyte complexe s seen with probable severe central spinal stenosis. There is severe bilateral neural foraminal narrowing. AP canal diameter is about 5 to 6 mm. There may be some abnormal cord signal at this level as well. C5-6: Posterior disc osteophyte complex is seen with moderately severe to potentially severe central spinal stenosis with probable moderately severe to severe right and severe left neural foraminal narrowing secondary to uncovertebral joint and facet arthropath y. C6-7: Posterior disc osteophyte complexe s seen with probable moderate to moderately severe central spinal stenosis and severe left and mild to moderate right neural foraminal narrowing. C7-T1: There is mild anterolisthesis of C7 on T1 and there is mild proximal bilateral neural foraminal narrowing and severe facet arthropathy. IMPRESSION IMPRESSION: 1. Severe central spinal stenosis with s uperimposed protrusion and mass affect on the cord is seen at C3-4 with abnormal cord signal secondary to mass effect. Protrusion is slightly eccentric to the left. Case discussed with neurology nurse Soraya at 2:00 PM on 07/04/2017. 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 2. There is probable severe central spin al stenosis at the C4-5 level also with abnormal cord signal and severe bilateral neural foraminal narrowing that appears worse on the left. 3. At C5-6 there is moderately severe to severe central spinal stenosis with moderately severe to severe right and severe left neural foraminal narrowing. 4. At C6-7 there is moderate to moderate ly severe central spinal stenosis with severe left and mild to moderate right neural foraminal narrowing. 5. The thyroid appears enlarged with mul tiple cystic lesions partially visualized on the left lobe. Findings may be consistent with multinodular goiter. Consider further evaluation with ultrasound. Jose Aldridge MD RAD MRI documented in this encounter Visit Diagnoses Diagnosis Left arm weakness - Primary Other musculoskeletal symptoms referable to limbs Left hand weakness Muscle weakness (generalized) Memory loss Left arm weakness Other musculoskeletal symptoms referable to limbs Left hand weakness Muscle weakness (generalized) documented in this encounter Care Teams Sap Gatherer Relationship Specialty Start Date End Date Allyson Pool PA-C PCP - General Physician Superintendent [employer] 09/26/16 02/28/21 [id number] [place] [id number] documented as of this encounter
--- OUTSIDE RECORDS SUMMARY | 2022-02-21 10:30 | XMS_ITS | Encounter Summary ---
:1935 [facility] Address [address] [place] [address] Care Team Providers Name Role Phone Allyson Pool PA-C Primary Care Provider Reason for Visit Procedure/Equipment (Routine) - Incomplete Specialty Diagnoses / Procedures Referred By Contact Refer red To Contact Diagnoses Left arm weakness Left hand weakness Jose Aldridge MD Procedures MR Cervical Spine W/WO IV Cont [address] [facility] [address] [place] [address] Referral ID Status Reason Start Date Expiration Date Visits V isits Requested Authorized [id number] Incomplete 05/31/2017 08/30/2018 1 1 Encounter Details Date Type Department Care Team Description 07/04/2017 Imaging [place] [facility] MRI Jose Aldridge MD Left arm weakness; [address] [place] [address] [address] [place] [address] (Wo rk) Social History Tobacco [...] Name Priority Date/Time Associated Diagnosis Comme nts MR CERVICAL SPINE Routine 07/04/2017 1:29 PM Left arm we akness Results for this W/WO IV CONT MANAGER TRANSIT Left hand weakness procedure are in the results section. documented in this encounter Results MR Cervical Spine W/WO IV Cont (07/04/2017 1:29 PM MANAGER TRANSIT) Anatomical Region Laterality Modality Spine, C-Spine, Neck, Vascular Magnetic Resonance Specimen (Source) Anatomical Collection Method Collection Time Re ceived Time Location / / Volume Laterality 07/04/2017 12:50 PM MANAGER TRANSIT Impressions 07/04/2017 2:08 PM MANAGER TRANSIT IMPRESSION: ?? 1. Severe central spinal stenosis [...] evaluation with ultrasound. Narrative 07/04/2017 2:08 PM MANAGER TRANSIT INDICATION: LUE diffuse weakness ?? TECHNIQUE: ??MRI [...] Muscle weakness (generalized) documented in this encounter Administered Medications Inactive Administered Medications - up to 3 most recent administrations Medication Order MAR Action Action Date Dose Rate Site gadobutrol (GADAVIST) 1 MMOL/ML Given 07/04/2017 1:15 PM MANAGER TRANSIT 10 mL injection 10 mL 10 mL, Intravenous, ONCE, On Jessica 07/04/17 at 1315, For 1 dose sodium chloride 0.9% injection 20 mL Given 07/04/2017 1:15 PM MANAGER TRANSIT 20 mL 20 mL, Intravenous, ONCE, On Jessica 07/04/17 at 1315, For 1 dose documented in this encounter Care Teams Income Tax Expert Relationship Specialty Start Date End Date Allyson Pool PA-C PCP - General Physician Sheet Ironworker 09/26/16 02/28/21 [id number] [place] [id number] documented as of this encounter
--- OUTSIDE RECORDS SUMMARY | 2022-02-21 10:30 | XMS_ITS | Encounter Summary ---
:1935 Author Organization [employer] Address [address] [place] [address] Care Team Providers Name Role Phone Allyson Pool PA-C Primary Care Provider Reason for Visit Reason Comments Preop Exam cervial fusion [facility] Encounter Details Date Type Department Care Team Description 07/08/2017 Pre-Op Visit Annetta Whitfield Preoperativ e examination (Primary Dx); Farida Lozoya MD Cervical myelopathy (C); [address] myocardial infarction; [place] [address] [place] [address] Chronic coronary artery disease; [phone] Aortic valve sc lerosis; (Work) Essential hypertension; Recurrent major depressive disorder, in remission ([facility]); Hyperlipidemia, unspecified hyperlipidemia type Social History Tobacco Use Types Packs/Day Years Used Date Smoking Tobacco: Never Smokeless Tobacco: Never Alcohol Use Standard Drinks/Week Comments Yes 0 (1 standard drink = 0.6 oz pure alcoho l) rare occasions (1 per month) Sex Assigned at Date Recorded Not on file documented as of this encounter Last Filed Vital Signs Vital Sign Reading Time Taken Comments Blood Pressure 118/68 07/08/2017 3:01 PM AUTOMOTIVE PARTS PERSON Pulse 60 07/08/2017 3:01 PM AUTOMOTIVE PARTS PERSON Temperature - - Respiratory Rate - - Oxygen Saturation - - Inhaled Oxygen Concentration - - Weight - - Height - - Body Mass Index - - documented in this encounter Patient Instructions Patient InstructionsAnnetta Ashby MD - 07/08/2017 3:00 PM CST - Do not eat anything after midnight the evening before your surgery. - It is OK to drink water or Gatorade up to 4 hours before your surgery. - You may take medicines before surgery with a small sip of water MOTIVE PARTS PERSON documented in this encounter OR Notes H&P - Annetta Ashby MD - 07/08/2017 3:00 PM CST PREOPERATIVE ASSESSMENT Date of Service: 07/08/2017 Date of : 1935 Age: 81 y.o. Sex: female Preoperative Evaluation completed by: Annetta Ashby MD Primary care physician: Allyson Pool PA-C [phone] CHIEF COMPLAINT Pre-Operative Evaluation ANTICIPATED PROCEDURE Chief Complaint Patient presents with ??? Preop Exam cervial fusion [facility] 07-09-17 HISTORY OF PRESENT ILLNESS Waqar Lundberg is a 81 y.o. female who has [...] for coronary artery disease. I reviewed her manager registration last note in care everywhere on October 16, 2016 through [facility]. According to her manager registration, she is optimally medically managed. He was [...] with shortness of breath with ambulation. Dementia. Waqar has been diagnosed with dementia and started [...] active healthcare directive or medical power of business attorney. Risk Factors/Review of Systems: (Please see flowsheets for details) Cardiovascular risks negative except for: CAD: CAD Details: Stent, [place] HTN: Renal risks negative except for: Neuro [...] 0.4 mg under tongue. 11/01/2016: Received from: [facility] Received Sig: Place 1 tablet (0.4 mg) [...] and left leg weakness. Echocardiogram done at [facility] -full information is available in care everywhere [facility] Echocardiography Laboratory [address] [place] [id number] Name: WAQAR LUNDBERG : 1935 Study Date: 04/16/2016 09:05 AM Age: 80 yrs Gender: Female Patient Location: [facility] Reason For Study: , Cardiac murmur, unspecified Ordering Physician: JULIAN KLINE Referring Physician: [facility] Performed By: Stephanie Ramos BSA: 2.0 [...] infarct age undetermined. No EKG available and Abaxia system to compare.. Labs done: Today: 07/08/2017. [...] WITH PATIENT: yes Annetta Ashby MD 07/08/2017 MOTIVE PARTS PERSON H&P - Annetta Ashby MD - 07/08/2017 3:00 PM CST Lab Results Component Value Date/Time Creatinine Serum 0.80 07/08/2017 1522 Lab Glucose 104 (H) 07/08/2017 1522 CO2 28 07/08/2017 1522 Chloride 105 07/08/2017 1522 Potassium 3.6 07/08/2017 1522 Sodium 140 07/08/2017 1522 Blood Urea Nitrogen 14 07/08/2017 1522 Calcium 9.1 07/08/2017 1522 Est GFR Am >60 07/08/2017 1522 Est GFR Non-Afr Am >60 07/08/2017 1522 Normal BMP. MOTIVE PARTS PERSON documented in this encounter Plan of Treatment Not on filedocumented as of this encounter Procedures Procedure Name Priority Date/Time Associated Diagnosis Comme nts ECG 12 LEAD Routine 07/08/2017 3:07 PM Preoperative Results f or this OUTPATIENT AUTOMOTIVE PARTS PERSON examination procedure are i n the results section. documented in this encounter Results CBC - Complete Blood Count-No Diff (07/08/2017 3:22 PM AUTOMOTIVE PARTS PERSON) P athologist Signature White Blood Cell 7.0 [...] Volume Laterality 07/08/2017 3:22 PM 8 3:22 AUTOMOTIVE PARTS PERSON PM AUTOMOTIVE PARTS PERSON Narrative PN SOFT - 07/08/2017 3:25 PM AUTOMOTIVE PARTS PERSON Performed at [facility], [address] [place] [address] CLIA number [id number] Annetta Ashby MD LAB_1 Performing Organization Address City/State/ZIP Code Phon e Number PN SOFT [address] [place] [address] (ABNORMAL) Basic Metabolic Panel (07/08/2017 3:22 PM AUTOMOTIVE PARTS PERSON) athologist Signature Creatinine 0.80 0.55 - PN [...] Volume Laterality 07/08/2017 3:22 PM 8 4:59 AUTOMOTIVE PARTS PERSON PM AUTOMOTIVE PARTS PERSON Narrative PN SOFT - 07/08/2017 6:15 PM AUTOMOTIVE PARTS PERSON Performed at [facility], [address] [place] [address] CLIA number [id number] Annetta Ashby MD LAB_1 Performing Organization Address City/[facility] Phon e Number PN SOFT [address] [place] [address] ECG 12 Lead Outpatient (07/08/2017 3:07 PM AUTOMOTIVE PARTS PERSON) athologist Signature Ventricular Rate 62 BPM MUSE [facility] Atrial Rate 62 BPM [facility] P-R Interval 244 ms [facility]USE [facility] QRS Duration 104 ms [facility]USE [facility] QT 458 ms [facility] QTc 464 ms MUSE [facility] P [place] -27 degrees MUSE [facility] R [place] -40 degrees MUSE [facility] T [place] 9 degrees [facility]USE [facility] Specimen (Source) Anatomical Collection Method Collection Time Re ceived Time Location / / Volume Laterality 07/08/2017 3:07 PM AUTOMOTIVE PARTS PERSON Narrative MUSE [facility] - 07/08/2017 4:25 PM AUTOMOTIVE PARTS PERSON Sinus rhythm with 1st degree A-V block Left axis deviation Poor R wave progression in precordium. Abnormal ECG No previous ECGs available Confirmed by JASBIR CONWAY ([id number]) on 4:25:10 PM Procedure Note Jasbir Conway MD / Epic, Internal P rocessing - 08/05/2019 Sinus rhythm with 1st degree A-V block Left axis deviation Poor R wave progression in precordium. Abnormal ECG No previous ECGs available Confirmed by JASBIR CONWAY ([id number]) on 4:25:10 PM Annetta Ashby MD PN ECG ORDERABLES Performing Organization Address City/State/ZIP Code Phon e Number MUSE [facility] [address] [place] [address] documented in this encounter Visit Diagnoses Diagnosis Preoperative examination - Primary Preoperative examination, unspecified Cervical myelopathy (HRC) Cervical spondylosis with myelopathy Old myocardial infarction (HRC) Old myocardial infarction Chronic coronary artery disease (HRC) Coronary atherosclerosis of unspecified type of vessel, chippewa-cree or graft Aortic valve sclerosis (HRC) Aortic valve disorders Essential hypertension (HRC) Unspecified essential hypertension Recurrent major depressive disorder, in remission (HRC) Hyperlipidemia, unspecified hyperlipidem ia type (HRC) Preoperative examination Preoperative examination, unspecified documented in this encounter Care Teams Transit Manager Relationship Specialty Start Date End Date Allyson Pool PA-C PCP - General Physician Aging Room Operator 09/26/16 02/28/21 [id number] [place] [id number] documented as of this encounter
--- OUTSIDE RECORDS SUMMARY | 2022-02-21 10:30 | XMS_ITS | Encounter Summary ---
:1935 Author Organization [email or web address] Address [address] [place] [address] Care Team Providers Name Role Phone Allyson Pool PA-C Primary Care Provider Reason for Visit Procedure/Equipment (Routine) - Incomplete Specialty Diagnoses / Procedures Referred By Contact Refer red To Contact Diagnoses Abnormal MRI Jose Aldridge MD Procedures MR Brain W/WO IV Cont [address] [facility] [address] [place] [address] Referral ID Status Reason Start Date Expiration Date Visits V isits Requested Authorized [id number] Incomplete 03/28/2017 06/27/2018 1 1 Encounter Details Date Type Department Care Team Description 05/17/2017 Imaging [place] [facility] MRI Jose Aldridge MD Abnormal MRI [address] [place], [place] [address] [address] [place] [address] (Wo rk) Social History Tobacco Use Types Packs/Day Years Used Date Smoking Tobacco: Never Smokeless Tobacco: Never Alcohol Use Standard Drinks/Week Comments Yes 0 (1 standard drink = 0.6 oz pure alcoho l) rare occasions Sex Assigned at Date Recorded Not on file documented as of this encounter Progress Notes Doreen Escobar RN - 05/20/2017 10:33 AM CST Updated pt's . ITAL SUPERINTENDENT Jose Aldridge MD - 05/19/2017 1:30 PM CST Gomez Liu I had gotten this repeat MRI of the brain for the right frontal cyst, but there appears to be findings of unclear significance in the skull. These may be benign, but they are a bit out of my area of expertise and wanted to pass along the result to you as her PCP. If she does not have a known cancer this finding may not be of any particular significance. Thanks, Roque Aldridge ITAL SUPERINTENDENT Jose Aldridge MD - 05/19/2017 1:20 PM CST Please let pt know that her follow up MRI brain did not appear changed from her previous scan in March. 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 There are a couple of areas in the skull that are unchanged that are of unknown significance, and I will probably forward this result to the PCP to see if they think any f/u is needed. Thanks. ITAL SUPERINTENDENT documented in this encounter Plan of Treatment Not on filedocumented as of this encounter Procedures Procedure Name Priority Date/Time Associated Diagnosis Comme nts MR BRAIN W/WO IV Routine 05/17/2017 1:27 PM Abnormal MRI Resul ts for this CONT HOSPITAL SUPERINTENDENT procedure are i n the results section. documented in this encounter Results MR Brain W/WO IV Cont (05/17/2017 1:27 PM HOSPITAL SUPERINTENDENT) Anatomical Region Laterality Modality Head Magnetic Resonance Specimen (Source) Anatomical Collection Method Collection Time Re ceived Time Location / / Volume Laterality 05/17/2017 12:51 PM HOSPITAL SUPERINTENDENT Impressions 05/17/2017 1:50 PM HOSPITAL SUPERINTENDENT IMPRESSION: ?? 1. ??Unchanged small 8 mm rounded well-c ircumscribed cystic lesion in the right frontal durant radiata periventricular white matter, which is likely a benign cystic lesion, possibly representing a promi nent perivascular space, arachnoid cyst, or neural glial cyst. 2. ??Stable mild to moderate chronic sma ll vessel ischemic changes in the brain parenchyma as above. Unchanged mild cerebral and cerebellar volume loss. 3. ??No acute infarct or other acute int racranial pathology. No suspicious intracranial contrast enhancement. 4. ??Two calvarial lesions which are T1 hypointense, FLAIR hyperintense, with contrast enhancement measuring 1.6 cm along the anterolateral right parietal calvarium on series 8 image 26 and in the poste rior lateral left parietal calvarium blanca suring 1.5 cm on series 8 image 27, with these lesions appearing similar to the MRI from 03/27/2017. These lesions are indeterminate and could represent metastati c lesions, however could be benign lesio ns such as venous lakes or hemangiomas. Narrative 05/17/2017 1:50 PM HOSPITAL SUPERINTENDENT INDICATION: f/u abnormal MRI ?? TECHNIQUE: ??MRI of the head with and wi thout contrast using tumor protocol, 10 mL GADOBUTROL 1 MMOL/ML IV SOLN. COMPARISON: Brain MRI 03/27/2017 FINDINGS: ??Normal diffusion. 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 Unchanged uppa-vw-xabkrmiz scattered small T2 and FLAIR hyperintense foci througho ut the cerebral white matter, likely sec ondary to chronic small vessel ischemic changes. Unchanged 8 mm rounded well-circumscribed cystic lesion with CSF signal characteristics without surrounding vasog enic edema or associated contrast enhanc ement along the right frontal durant radiata periventricular white matter. Unchanged mild cerebral and cerebellar volume loss. The major intracranial vascular usman w voids appear patent. No suspicious int racranial contrast enhancement. 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 Sella is normal. Degenerative jonas nges in the upper cervical spine with disc osteophyte complex at C3-C4 which effaces the ventral thecal sac. 2 calvarial lesions which are T1 hypointense, FLAIR h yperintense, with contrast enhancement m easuring 1.6 cm along the anterolateral right parietal calvarium on series 8 image 26 and in the posterior lateral left parietal calvarium measuring 1.5 cm on ser ies 8 image 27, with these lesions appea ring similar to the MRI from 03/27/2017. Procedure Note Wilmer Franco MD - 05/17/2017Forma tting of this note might be different from the original. INDICATION: f/u abnormal MRI TECHNIQUE: MRI of the head with and with out contrast using tumor protocol, 10 mL GADOBUTROL 1 MMOL/ML IV SOLN. COMPARISON: Brain MRI 03/27/2017 FINDINGS: Normal diffusion. Unchanged sm all chronic lacunar infarction along the superior left cerebellar hemisphere. Unchanged ryic-kq-yhkmlyqq scattered small T2 and FLAIR hyperintense foci throughout the cerebral white matter, likely secondary to chroni c small vessel ischemic changes. Unchanged 8 mm rounded well-circumscribed cystic lesion with CSF signal characteristics without surrounding vasogenic edema or associated contrast enhancement along the right frontal heidy na radiata periventricular white matter. Unchanged mild cerebral and cerebellar volume loss. The major intracranial vascular flow voids appear patent. No suspicious intracranial contrast enhancement. Unchanged mild stephanie a cisterna magna versus arachnoid cyst posterior to the cerebellar vermis measuring 1 cm in anteroposterior thickness. Sella is normal. Degenerative changes in the upper cervical spine with disc osteophyte complex at C3 -C4 which effaces the ventral thecal sac. 2 calvarial lesions which are T1 hypointense, FLAIR hyperintense, with contrast enhancement measuring 1.6 cm along the anterolateral right parietal calvarium o n series 8 image 26 and in the posterior lateral left parietal calvarium measuring 1.5 cm on series 8 image 27, with these lesions appearing similar to the MRI from 03/27/2017. IMPRESSION IMPRESSION: 1. Unchanged small 8 mm rounded well-cir cumscribed cystic lesion in the right frontal durant radiata periventricular white matter, which is likely a benign cystic lesion, possibly representing a prominent perivascular space, arachnoid cyst, or neural glial c yst. 2. Stable mild to moderate chronic small vessel ischemic changes in the brain parenchyma as above. Unchanged mild cerebral and cerebellar volume loss. 3. No acute infarct or other acute intra cranial pathology. No suspicious intracranial contrast enhancement. 4. Two calvarial lesions which are T1 hy pointense, FLAIR hyperintense, with contrast enhancement measuring 1.6 cm along the anterolateral right parietal calvarium on series 8 image 26 and in the posterior lateral left parietal calvarium measuring 1.5 cm on s eries 8 image 27, with these lesions appearing similar to the MRI from 03/27/2017. These lesions are indeterminate and could represent metastatic lesions, however could be benign lesions such as venous lakes or h emangiomas. Jose Aldridge MD RAD MRI documented in this encounter Visit Diagnoses Diagnosis Abnormal MRI Other nonspecific (abnormal) findings on radiological and other examinations of body structure documented in this encounter Administered Medications Inactive Administered Medications - up to 3 most recent administrations Medication Order MAR Action Action Date Dose Rate Site gadobutrol (GADAVIST) 1 MMOL/ML Given 05/17/2017 1:15 PM HOSPITAL SUPERINTENDENT 10 mL injection 10 mL 10 mL, Intravenous, ONCE, On Sat05/17/17 at 1315, For 1 dose sodium chloride 0.9% injection 20 mL Given 05/17/2017 1:15 PM HOSPITAL SUPERINTENDENT 20 mL 20 mL, Intravenous, ONCE, On Sat05/17/17 at 1315, For 1 dose documented in this encounter Care Teams Software Firmware Engineer Relationship Specialty Start Date End Date Allyson Pool PA-C PCP - General Physician Quartz Cutter 09/26/16 02/28/[address] [place] [id number] documented as of this encounter
--- OUTSIDE RECORDS SUMMARY | 2022-02-21 10:30 | XMS_ITS | Encounter Summary ---
:1935 Author Organization [employer] Address [address], [place] [address] Care Team Providers Name Role Phone Allyson Pool PA-C Primary Care Provider Reason for Visit Reason Comments UPDATE Encounter Details Date Type Department Care Team Description 06/17/2017 Telephone [facility] 1 Neurology Nany Newman RN UPDATE [address] [place], [place] [address] Social History Tobacco Use Types Packs/Day Years Used Date Smoking Tobacco: Never Smokeless Tobacco: Never Alcohol Use Standard Drinks/Week Comments Yes 0 (1 standard drink = 0.6 oz pure alcoho l) rare occasions Sex Assigned at Date Recorded Not on file documented as of this encounter Nursing Notes Nany Newman RN - 06/17/2017 10:15 AM CST Pt's nurse, Taylor from [facility], called to report that she fell on 06/12/17. She denies any injuries, pain, or any other trauma or symptoms following this event. She just wanted to update . Pt is still planning on getting MRI of C spine and EMG. Called nurse back to confirm we got her message and to encourage her to call back with any new or worsening symptoms or falls.Unable to LM as voicemail is full. SOMNOGRAPHIC TECH documented in this encounter Plan of Treatment Not on filedocumented as of this encounter Visit Diagnoses Not on filedocumented in this encounter Care Teams Plant Clerk Relationship Specialty Start Date End Date Allyson Pool PA-C PCP - General Physician Tamper Operator 09/26/16 02/28/21 [id number] [place] [id number] documented as of this encounter
--- OUTSIDE RECORDS SUMMARY | 2022-02-21 10:30 | XMS_ITS | Encounter Summary ---
:1935 Author Organization [employer] Address [address] [place] [address] Care Team Providers Name Role Phone Allyson Pool PA-C Primary Care Provider Reason for Visit Reason Comments Ultrasound Results Thyroid Encounter Details Date Type Department Care Team Description 05/17/2017 Telephone [facility] Allyson Pool PA-C Ultrasound Results Medicine [address] [facility] (Thyroid) [address] [place], [place] [address] [place] [address] [phone] Social History Tobacco Use Types Packs/Day Years Used Date Smoking Tobacco: Never Smokeless Tobacco: Never Alcohol Use Standard Drinks/Week Comments Yes 0 (1 standard drink = 0.6 oz pure alcoho l) rare occasions Sex Assigned at Date Recorded Not on file documented as of this encounter Nursing Notes Estrella Vann LPN - 05/17/2017 4:15 PM CST I called and spoke to the pt and notified her of results and follow-up listed below. Pt verbalized understanding and said that she will return in 6 months for a follow-up thyroid scan and thyroid levelblood tests. I also notified pt of her CT scan results. OR CONTACT CENTRE TEAM LEADER Allyson Pool PA-C - 05/17/2017 1:15 PM CST Patient has a right sided thyroid nodule. I spoke to endocrinology about this. They reviewed the ultrasound. They do not feel this looks suspicious. She will need a repeat ultrasound in 6 months with athyroid lab draw in 6 months (in November) to assure it has not changed. I put the orders in for her. Allyson Pool PA-C 1:16 PM 05/17/2017 OR CONTACT CENTRE TEAM LEADER documented in this encounter Plan of Treatment Not on filedocumented as of this encounter Results TSH with Free T4 (if TSH Abnormal) (12/09/2017 10:48 AM CDT) athologist Signature Thyroid 1.38 0.30 - PN SOFT Stimulating 4.50 Hormone uIU/mL Specimen Anatomical Collection Method Collection Time Receive d Time (Source) Location / / Volume Laterality 12/09/2017 10:48 12/09/2017 AM CDT 12:53 PM CDT Narrative PN SOFT - 12/09/2017 1:47 PM CDT Performed at [facility] [address] [place] [address] CLIA number [id number] Allyson Pool PA-C LAB_1 Performing Organization Address City/State/ZIP Code Phon e Number SOFT [address] [place] [address] documented in this encounter Visit Diagnoses Diagnosis Thyroid nodule (HRC) - Primary Nontoxic uninodular goiter Thyroid nodule (HRC) Nontoxic uninodular goiter documented in this encounter Care Teams Board Writer Relationship Specialty Start Date End Date Allyson Pool PA-C PCP - General Physician Presser Cotton Ginning 09/26/16 02/28/21 [id number] [place] [id number] documented as of this encounter
--- OUTSIDE RECORDS SUMMARY | 2022-02-21 10:30 | XMS_ITS | Encounter Summary ---
:1935 Author Organization [facility] Address [address] [place] [address] Care Team Providers Name Role Phone Allyson Pool PA-C Primary Care Provider Encounter Details Date Type Department Care Team Description 05/24/2017 Lab Visit [facility] Elevated serum protein [address] [place] [address] Social History Tobacco Use Types [...] Procedure Name Priority Date/Time Associated Comments Diagnosis LAB IGM STAT 05/24/2017 2:23 PM Elevated serum Results for this PRODUCT MANAGENT INTERN protein level procedure are in the results section. ONCOLOGY PROFILE STAT 05/24/2017 2:23 PM Elevated serum Res ults for this PRODUCT MANAGENT INTERN protein level procedure are in the results section. FREE LIGHT CHAINS, STAT 05/24/2017 2:23 PM Elevated serum R esults for this SERUM PRODUCT MANAGENT INTERN protein level procedure are in the results section. COMPLETE BLOOD STAT 05/24/2017 2:23 PM Elevated serum Resul ts for this COUNT-W/DIFF PRODUCT MANAGENT INTERN protein level procedure are in the results section. DIFFERENTIAL STAT 05/24/2017 2:23 PM Results f or this PRODUCT MANAGENT INTERN procedure are i n the results section. PROTEIN ELP (SERUM) STAT 05/24/2017 2:23 PM Elevated serum Results for this PRODUCT MANAGENT INTERN protein level procedure are in the results section. IGG, SERUM STAT 05/24/2017 2:23 PM Elevated serum Results for this PRODUCT MANAGENT INTERN protein level procedure are in the results section. IGA, SERUM STAT 05/24/2017 2:23 PM Elevated serum Results for this PRODUCT MANAGENT INTERN protein level procedure are in the results section. documented in this encounter Results Differential (05/24/2017 2:23 PM PRODUCT MANAGENT INTERN) athologist Signature Absolute 3.2 1.8 - 8.0 PN SOFT Neutrophils k/cmm Absolute 2.7 1.1 - 4.0 PN SOFT Lymphocytes k/cmm Absolute 0.6 0.2 - 0.8 PN SOFT Monocytes k/cmm Absolute 0.1 0.0 - 0.5 PN SOFT Eosinophils k/cmm Absolute 0.0 0.0 - 0.2 PN SOFT Basophils k/cmm Immature 0.2 0.0 - 0.5 PN SOFT Granulocytes % Specimen Anatomical Collection Method Collection Time Receive d Time (Source) Location / / Volume Laterality 05/24/2017 2:23 PM 8 2:23 PRODUCT MANAGENT INTERN PM PRODUCT MANAGENT INTERN Narrative PN SOFT - 05/24/2017 2:26 PM PRODUCT MANAGENT INTERN Performed at [facility], [address] [place] [address] CLIA number [id number] Marlys [facility]_1 Performing Organization Address [facility] Phon e Number PN SOFT [address] [place] [address] IgM - in 6 months (05/24/2017 2:23 PM PRODUCT MANAGENT INTERN) athologist Signature Immunoglobulin M 90 33 - 293 PN SOFT mg/dL Specimen Anatomical Collection Method Collection Time Receive d Time (Source) Location / / Volume Laterality 05/24/2017 2:23 PM 8 6:12 PRODUCT MANAGENT INTERN PM PRODUCT MANAGENT INTERN Narrative PN SOFT - 05/24/2017 6:41 PM PRODUCT MANAGENT INTERN Performed at [facility] [address] [place] [address] CLIA number [id number] Marlys [facility]_1 Performing Organization Address City/[facility]/ZIP Code Phon e Number PN SOFT [address] [place] [address] IgG - in 6 months (05/24/2017 2:23 PM PRODUCT MANAGENT INTERN) athologist [facility] Immunoglobulin G 1,332 552 - PN SOFT 1,631 mg/dL Specimen Anatomical Collection Method Collection Time Receive d Time (Source) Location / / Volume Laterality 05/24/2017 2:23 PM 8 6:12 PRODUCT MANAGENT INTERN PM PRODUCT MANAGENT INTERN Narrative PN SOFT - 05/24/2017 6:41 PM PRODUCT MANAGENT INTERN Performed at [address] [address] CLIA number [id number] Marly[facility]_1 Performing Organization Address City/[facility] Phon e Number PN SOFT [address] [place] [address] IgA, Serum - in 6 months (05/24/2017 2:23 PM PRODUCT MANAGENT INTERN) athologist [facility] Immunoglobulin A 252 69 - 517 PN SOFT mg/dL Specimen Anatomical Collection Method Collection Time Receive d Time (Source) Location / / Volume Laterality 05/24/2017 2:23 PM 8 6:12 PRODUCT MANAGENT INTERN PM PRODUCT MANAGENT INTERN Narrative PN SOFT - 05/24/2017 6:41 PM PRODUCT MANAGENT INTERN Performed at [address] [address] CLIA number [id number] M[facility]_1 Performing Organization Address City/[facility] Phon e Number PN SOFT [address] [place] [address] (ABNORMAL) Free Light Chains, Serum - in 6 months (05/24/2017 2:23 PM PRODUCT MANAGENT INTERN) athologist [facility] [place] Free 2.59 (H) 0.33 - PN SOFT Light Chains 1.94 mg/dl Lambda Free 1.73 0.57 - PN SOFT Light Chains 2.63 mg/dl [place]/Lambda 1.50 0.26 - PN SOFT Ratio Free 1.65 Light Chains Comment: Performed at [facility], [address] ??[address] CLIA Number [id number] Specimen Anatomical Collection Method Collection Time Receive d Time (Source) Location / / Volume Laterality 05/24/2017 2:23 PM 8 6:14 PRODUCT MANAGENT INTERN PM PRODUCT MANAGENT INTERN Marlysra Moore Margarita [facility]_1 Performing Organization Address [facility] Phon e Number PN SOFT [address] [place] [address] (ABNORMAL) Electrophoresis Protein, Serum - in 6 months (05/24/2017 2:23 PM PRODUCT MANAGENT INTERN) P athologist Signature Total Protein 7.1 6.4 - 8.3 PN SOFT g/dl Comment: Performed at [facility], [address] [place] [address] ??[address] Albumin 3.8 3.4 - 4.8 g/dl PN SOFT Alpha 1 0.3 0.2 - 0.5 g/dl PN SOFT Alpha 2 0.9 0.5 - 1.1 g/dl PN SOFT Beta 0.8 0.6 - 1.1 g/dl PN SOFT Gamma 1.2 0.7 - 1.6 g/dl PN SOFT Monoclonal Joaquin 0.5 (H) 0.0 g/dl PN SOFT Comment: IgG [place] Interpretation SEE BELOW PN SOFT Comment: A monoclonal protein has been detected b y serum protein electrophoresis. Signed out by SEE BELOW PN SOFT Comment: [facility] Performed at [facility], [address] [place] [address] ??[address] CLIA Number [id number] Specimen Anatomical Collection Method Collection Time Receive d Time (Source) Location / / Volume Laterality 05/24/2017 2:23 PM 8 6:12 PRODUCT MANAGENT INTERN PM PRODUCT MANAGENT INTERN M[facility]_1 Performing Organization Address [facility] Phon e Number PN SOFT [address] [place] [address] [phone] Oncology Profile - in 6 months (05/24/2017 2:23 PM PRODUCT MANAGENT INTERN) Patholo gist Method Time Signature Aspartate 25 10 - 40 PN SOFT Aminotransferase U/L Alk Phos 52 40 - 150 PN SOFT U/L Bilirubin Total 0.8 0.2 - 1.2 PN SOFT mg/dL Calcium 9.4 8.4 - PN SOFT 10.2 mg/dL Creatinine Serum 0.80 0.55 - PN SOFT 1.02 mg/dL Est GFR Am >60 >60 PN SOFT mL/min/1. 73m2 Est GFR Non-Afr Am >60 >60 PN SOFT mL/min/1. 73m2 Comment: Normal>60, moderate decrease 30 - 59, se lydia decrease 15 - 29, renal failure <15 mL/min/1.73 m2 NOTE: ??Choose the eGFR result above apolonia ropriate for the race of the patient. Specimen Anatomical Collection Method Collection Time Receive d Time (Source) Location / / Volume Laterality 05/24/2017 2:23 PM 8 2:22 PRODUCT MANAGENT INTERN PM PRODUCT MANAGENT INTERN Narrative PN SOFT - 05/24/2017 2:44 PM PRODUCT MANAGENT INTERN Performed at [facility], [address] [place] [address] CLIA number [id number] Marlys [facility]_1 Performing Organization Address City/State/ZIP Code Phon e Number PN SOFT [address] [place] [address] [phone] Complete Blood Count W/Diff - in 6 months (05/24/2017 2:23 PM PRODUCT MANAGENT INTERN) P athologist Signature White Blood Cell 6.7 3.8 - 11.0 PN SOFT Count k/cmm Red Blood Cell 4.69 3.70 - PN SOFT Count 5.20 m/cmm Hemoglobin 14.4 11.8 - PN SOFT 15.5 g/dL Hematocrit 43.1 35.0 - PN SOFT 46.0 % Mean Corpuscular 91.9 80.0 - PN SOFT Volume 100.0 fL RDW 14.0 11.0 - PN SOFT 15.0 % Platelet Count 173 140 - 450 PN SOFT k/cmm Specimen Anatomical Collection Method Collection Time Receive d Time (Source) Location / / Volume Laterality 05/24/2017 2:23 PM 8 2:23 PRODUCT MANAGENT INTERN PM PRODUCT MANAGENT INTERN Narrative PN SOFT - 05/24/2017 2:25 PM PRODUCT MANAGENT INTERN Performed at [facility], [address] [facility], [place] [address] CLIA number [id number] Marlys [facility]_1 Performing Organization Address City/State/ZIP Code Phon e Number PN SOFT [address] [place] [address] [phone] documented in this encounter Visit Diagnoses Diagnosis Elevated serum protein level documented in this encounter Care Teams Post Partum Nurse Relationship Specialty Start Date End Date Allyson Pool PA-C PCP - General Physician Manufacturing Finance Manager 09/26/16 02/28/[address] [place] [id number] documented as of this encounter
--- OUTSIDE RECORDS SUMMARY | 2022-02-21 10:30 | XMS_ITS | Encounter Summary ---
:1935 Author Organization [facility] Address [address] [place] [address] Care Team Providers Name Role Phone Allyson Pool PA-C Primary Care Provider Encounter Details Date Type Department Care Team Description 05/24/2017 Lab Visit [facility] [place] [address] [place] [address] Social History Tobacco Use Types [...] Associated Diagnosis Comme nts CREATININE / GFR STAT 05/24/2017 2:23 PM Abnormal MRI Resul ts for this CIRCULATION MANAGER procedure are i n the results section. documented in this encounter Results Creatinine / GFR (05/24/2017 2:23 PM CIRCULATION MANAGER) P athologist Signature Creatinine Serum 0.80 0.55 - PN SOFT 1.02 mg/dL Est GFR >60 >60 PN SOFT Am mL/min/1.7 3m2 Est GFR Non-Afr >60 >60 PN SOFT Am mL/min/1.7 3m2 Comment: Normal>60, moderate decrease 30 - 59, se yldia decrease 15 - 29, renal failure <15 mL/min/1.73 m2 NOTE: ??Choose the eGFR result above apolonia ropriate for the race of the patient. Specimen Anatomical Collection Method Collection Time Receive d Time (Source) Location / / Volume Laterality 05/24/2017 2:23 PM 8 2:22 CIRCULATION MANAGER PM CIRCULATION MANAGER Narrative PN SOFT - 05/24/2017 2:44 PM CIRCULATION MANAGER Performed at [facility], [address] [place] [address] CLIA number [id number] Jsoe Aldridge MD LAB_1 Performing Organization Address City/State/ZIP Code Phon e Number PN SOFT [address] [place] [address] [phone] documented in this encounter Visit Diagnoses Diagnosis Abnormal MRI Other nonspecific (abnormal) findings on radiological and other examinations of body structure documented in this encounter Care Teams Acupressurist Relationship Specialty Start Date End Date Allyson Pool PA-C PCP - General Physician Fermenter Helper 09/26/16 02/28/21 [address] [place] [id number] documented as of this encounter
--- OUTSIDE RECORDS SUMMARY | 2022-02-21 10:30 | XMS_ITS | Encounter Summary ---
:1935 Author Organization [facility] Address [address] [place] [address] Care Team Providers Name Role Phone Allyson Pool PA-C Primary Care Provider Reason for Visit Reason Comments Hematuria Encounter Details Date Type Department Care Team Description 05/28/2017 Nurse Triage [facility] Allyson Pool PA-C Hematuria Medicine [address] [facility] [address] [place] [address] [phone] Social History Tobacco Use Types Packs/Day Years Used Date Smoking Tobacco: Never Smokeless Tobacco: Never Alcohol Use Standard Drinks/Week Comments Yes 0 (1 standard drink = 0.6 oz pure alcoho l) rare occasions Sex Assigned at Date Recorded Not on file documented as of this encounter Nursing Notes Jamila Lassiter RN - 05/28/2017 5:04 PM CST Reason for Disposition ??? All other patients with blood in urine (Exception: could be normal menstrual bleeding) Protocols used: URINE - BLOOD IN-ADULT-OH Home care nurse calling, says patient has been complaining of vaginal bleeding or blood in her urine. Is unsure of where bleeding is coming from but is having a small amount of blood in her brief and on the toilet paper. She denies to home care nurse and abdominal pain, flank pain, dysuria, burning, urgency, frequency, increased confusion, or falls. Home nurse did not see bleeding. Future Appointments Date Time Provider Department Center 05/29/2017 2:30 PM Jovany Thorpe MD [facility] IMED PN [facility] 05/29/2017 3:30 PM Marlys Barboza MBBS [facility] ONC PN [facility] 05/31/2017 1:00 PM Jose Aldridge MD SHAK3 ANA PN SHAK3 06/21/2017 1:50 PM Jose Aldridge MD SHAK3 ANA PN SHAK3 THESIOLOGY PHYSICIAN ASSISTANT Solange Johns - 05/28/2017 4:55 PM CST Home care is calling. Patient is having blood in urine. Please advise. THESIOLOGY PHYSICIAN ASSISTANT documented in this encounter Plan of Treatment Not on filedocumented as of this encounter Visit Diagnoses Not on filedocumented in this encounter Care Teams Language And Literature Division Chair Relationship Specialty Start Date End Date Allyson Pool PA-C PCP - General Physician Stock Fitter 09/26/16 02/28/21 [address] [place] [id number] documented as of this encounter
--- OUTSIDE RECORDS SUMMARY | 2022-02-21 10:30 | XMS_ITS | Encounter Summary ---
:1935 Author Organization [facility] Address [address] [place] [address] Care Team Providers Name Role Phone Allyson Pool PA-C Primary Care Provider Encounter Details Date Type Department Care Team Description 07/05/2017 Initial Consult Specialty Center [address] [facility] [id number] [place] [id number] Social History Tobacco Use Types Packs/Day Years Used Date Smoking Tobacco: Never Smokeless Tobacco: Never Alcohol Use Standard Drinks/Week Comments Yes 0 (1 standard drink = 0.6 oz pure alcoho l) rare occasions Sex Assigned at Date Recorded Not on file documented as of this encounter Progress Notes [place] - 07/05/2017 3:10 PM CST Reason for Visit: Delivery of Hard Cervical Collar [place] with extra pad set Patient was fit today with the appropriate size hard cervical orthosis or collar without incident. Iwas able to instruct her on proper donning/doffing of the collar although she is to follow her physician orders in regards to wear. She received the manufacture written instructions on the orthosis, and I also verbally went over some guidance on how to use a pillow post surgically to avoid issues. We are to be contacted if any problems or questions arise. Patient also received 1 additional pad set. Madalyn went over the patient consent patient delivery form with the patient and she chose to sign it at this time. I also had her sign a Medicare proof of delivery form today as well and she receiveda copy of it. Daniel Martinez. [address] WASTE MANAGEMENT SPECIALIST documented in this encounter Plan of Treatment Not on filedocumented as of this encounter Visit Diagnoses Not on filedocumented in this encounter Care Teams Fish Hatchery Supervisor Relationship Specialty Start Date End Date Allyson Pool PA-C PCP - General Physician Audiology Assistant 09/26/16 02/28/21 [address] [place] [id number] documented as of this encounter
--- OUTSIDE RECORDS SUMMARY | 2022-02-21 10:31 | XMS_ITS | Encounter Summary ---
:1935 Author Organization [facility] Address [address] [place] [address] Care Team Providers Name Role Phone Allyson Pool PA-C Primary Care Provider Reason for Visit Procedure/Equipment (Routine) - Incomplete Specialty Diagnoses / Procedures Referred By Contact Refer red To Contact Diagnoses Memory loss Numbness and tingling in both hands Jose Aldridge MD Procedures MR Brain WO IV Cont MR Brain W/WO IV Cont [address] [place] [address] [place] [address] Referral ID Status Reason Start Date Expiration Date Visits V isits Requested Authorized [id number] Incomplete 03/22/2017 06/21/2018 1 1 Encounter Details Date Type Department Care Team Description 03/27/2017 Imaging [facility] Radiology Roque Aldridge MD Memory loss; MRI [address] [facility] Numbness and tingling in bot h hands [address] [place] [address] [place], [place] [phone] (Wo rk) Social History Tobacco Use Types Packs/Day Years Used Date Smoking Tobacco: Never Smokeless Tobacco: Never Alcohol Use Standard Drinks/Week Comments Yes 0 (1 standard drink = 0.6 oz pure alcoho l) rare occasions Sex Assigned at Date Recorded Not on file documented as of this encounter Progress Notes Jose Aldridge MD - 03/28/2017 8:31 AM CST Please let pt/ know that her MRI brain did not reveal any noticeable causes for her memory loss. There is a small cyst-appearing structure in the right part of her brain that does not look dangerous, but the radiologist recommended a f/u MRI brain to make sure it is not changing. This could be set up in the next 1-2 months. Otherwise, I recommend starting donepezil 5 mg tabs, 1 pill once per day in the morning for 2 weeks, then 2 pills once per day in the morning after that. Watch for nausea,loose stools, muscle cramping, or any other side effects. Follow up in clinic in the next 3-6 months. Thanks. ECTOR SUBASSEMBLIES documented in this encounter Plan of Treatment Not on filedocumented as of this encounter Procedures Procedure Name Priority Date/Time Associated Diagnosis Comme nts MR BRAIN WO IV CONT Routine 03/27/2017 5:02 PM Memory lo ss Results for this INSPECTOR SUBASSEMBLIES Numbness and procedure are i n tingling in both the results hands section. documented in this encounter Results MR Brain WO IV Cont (03/27/2017 5:02 PM INSPECTOR SUBASSEMBLIES) Anatomical Region Laterality Modality Head Magnetic Resonance Specimen (Source) Anatomical Collection Method Collection Time Re ceived Time Location / / Volume Laterality 03/27/2017 4:17 PM INSPECTOR SUBASSEMBLIES Impressions 03/28/2017 8:09 AM INSPECTOR SUBASSEMBLIES IMPRESSION: ?? 1. ??No evidence of acute infarction. 2. ??Chronic microvascular ischemic zafar ge. 3. ??Volume loss. 4. ??Well-circumscribed cyst within the deep white matter of the right frontal lobe. This likely represents a benign parenchymal cyst, but follow-up MRI of brain with and without contrast within one mon th is recommended to evaluate for any as sociated contrast enhancement which could indicate a more aggressive lesion. Significant findings requiring follow-up as stated above. Narrative 03/28/2017 8:09 AM INSPECTOR SUBASSEMBLIES INDICATION: Memory loss. ?? TECHNIQUE: ??MRI of the head without con trast using stroke protocol. The examination was discontinued prior to gadolinium injection secondary to claustrophobia. COMPARISON: None. FINDINGS: ??Normal diffusion. Multiple f oci of T2 and FLAIR signal hyperintensity within the white matter bilaterally consistent with chronic microvascular ischemic change. 7 mm well-defined cyst within the deep white matter of the right fron hanna lobe. Mild cerebral and cerebellar volume loss. Normal flow voids within the major intracranial vessels. The visualized calvarium, paranasal sinuses, orbits, skull base, and upper cervical spine are unremarkable. Procedure Note Wilmer Rutherford MD - 03/28/2017Format ting of this note might be different from the original. INDICATION: Memory loss. TECHNIQUE: MRI of the head without contr ast using stroke protocol. The examination was discontinued prior to gadolinium injection secondary to claustrophobia. COMPARISON: None. FINDINGS: Normal diffusion. Multiple foc i of T2 and FLAIR signal hyperintensity within the white matter bilaterally consistent with chronic microvascular ischemic change. 7 mm well-defined cyst within the deep white matter of the right frontal lobe. Mild cerebral and cerebellar volume loss. Normal flow voids within the major intracranial vessels. The visualized calvarium, paranasal sinuses, orbits, skull base, and upper cervical spine are unremarkable. IMPRESSION IMPRESSION: 1. No evidence of acute infarction. 2. Chronic microvascular ischemic change . 3. Volume loss. 4. Well-circumscribed cyst within the de ep white matter of the right frontal lobe. This likely represents a benign parenchymal cyst, but follow-up MRI of brain with and without contrast within one month is recommended to evaluate for any associat ed contrast enhancement which could indicate a more aggressive lesion. Significant findings requiring follow-up as stated above. Jose Aldridge MD RAD MRI documented in this encounter Visit Diagnoses Diagnosis Memory loss Numbness and tingling in both hands documented in this encounter Care Teams Mechanical Energy Engineer Relationship Specialty Start Date End Date Allyson Pool PA-C PCP - General Physician Game Programer 09/26/16 02/28/21 [address] [place] [id number] documented as of this encounter
--- OUTSIDE RECORDS SUMMARY | 2022-02-21 10:31 | XMS_ITS | Encounter Summary ---
:1935 Author Organization [facility] Address [address] [place] [address] Care Team Providers Name Role Phone Allyson Pool PA-C Primary Care Provider Reason for Visit Reason Comments Appointment Encounter Details Date Type Department Care Team Description 05/08/2017 Telephone [facility] Allyson Pool PA-C Appointment Medicine [address] [facility] [address] [place] [address] [phone] Social History Tobacco Use Types Packs/Day Years Used Date Smoking Tobacco: Never Smokeless Tobacco: Never Alcohol Use Standard Drinks/Week Comments Yes 0 (1 standard drink = 0.6 oz pure alcoho l) rare occasions Sex Assigned at Date Recorded Not on file documented as of this encounter Nursing Notes Estrella Vann LPN - 05/08/2017 3:40 PM CST I called and spoke to the pt and she agreed that she needs to come in for a hospital discharge follow-up and to discuss the thyroid nodule found. Pt made appointment for SatMay 15 at 11:30 am. VERY OPERATOR HELPER documented in this encounter Plan of Treatment Not on filedocumented as of this encounter Visit Diagnoses Not on filedocumented in this encounter Care Teams Conference Center Coordinator Relationship Specialty Start Date End Date [place], Allyson M, PA-C PCP - General Physician Infantry Assaultman 09/26/16 02/28/21 [address] [place] [id number] documented as of this encounter
--- OUTSIDE RECORDS SUMMARY | 2022-02-21 10:31 | XMS_ITS | Encounter Summary ---
:1935 Author Organization [facility] Address [address] [place] [address] Care Team Providers Name Role Phone Allyson Pool PA-C Primary Care Provider Reason for Referral Consult/Transfer Care (Routine) - Closed Specialty Diagnoses / Procedures Referred By Contact Refer red To Contact Diagnoses Memory loss Allyson Pool PA-C [address] [place] [address] Referral ID Status Reason Start Date Expiration Date Visits Requ ested Visits Authorized [id number] Closed 12/21/2016 06/19/2017 1 1 Scheduling Instructions If scheduling assistance is needed, jose roberto rhodes inquire with the medical office staff upon exiting your appointment or contact the ordering clinic for recommended locations. This recommended service/s may not be co singh by your insurance coverage. To find out your specific benefit coverage, please c all the number on your insurance card. Procedure/Equipment (Routine) - Closed Specialty Diagnoses / Procedures Referred By Contact Refer red To Contact Diagnoses Numbness in both hands Allyson Pool PA-C Procedures NEURO--EMG ELECTRICAL NERVE CONDUCTION STUDY [address] [place] [address] Referral ID Status Reason Start Date Expiration Date Visits Requ ested Visits Authorized [id number] Closed 12/21/2016 03/22/2018 1 1 Reason for Visit Reason Comments Follow-up Hematology Encounter Details Date Type Department Care Team Description 12/21/2016 Office Visit [facility] Allyson Pool PA-C Memory loss (Primary Dx); Medicine [address] Numbness in both hands; [address] [employer] [place], [place] [address] [phone] (Wo rk) Social History Tobacco Use Types Packs/Day Years Used Date Smoking Tobacco: Never Smokeless Tobacco: Never Alcohol Use Standard Drinks/Week Comments Yes 0 (1 standard drink = 0.6 oz pure alcoho l) rare occasions Sex Assigned at Date Recorded Not on file documented as of this encounter Last Filed Vital Signs Vital Sign Reading Time Taken Comments Blood Pressure 132/74 12/21/2016 7:57 AM CDT Pulse 60 12/21/2016 7:57 AM CDT Temperature 36.8 ??C (98.2 ??F) 12/21/2016 7:57 AM CDT Respiratory Rate - - Oxygen Saturation - - Inhaled Oxygen Concentration - - Weight 99.7 kg (219 lb 11.2 oz) 12/21/2016 7:57 AM CDT Height - - Body Mass Index 38.92 12/05/2016 3:05 PM CDT documented in this encounter Patient Instructions Patient InstructionsAllyson Pool PA-C - 12/21/2016 8:00 AM CDT Take ergocalciferol 50,000 units once a week for 8 weeks. After these 8 weeks you will take cholecalciferol 1,000 units once daily. After 8 weeks of taking this one go to lab to have your blood work rechecked. Mid April. documented in this encounter Progress Notes Allyson Pool PA-C - 12/21/2016 8:00 AM CDT Internal Medicine [facility] - Allyson Vyas 81 y.o. Female : 1935 PN Date of Service: 12/21/2016 Chief Complaint: follow up, hand numbness, and memory loss Tree Shear Operator Present: no HPI: Fidelia Vyas is a 81 y.o. female who presents for the followin.) Elevated serum protein. Seen by hematology. 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 Hematology follow up in 4-5 months. No treatment indicated at this time. 2.) bilateral hand numbness for months. Intermittent. No neck pain. Sometimes feels in the dorsal hand. All fingers involved. No feet sx. Sometimes hands feel cold. No cyanosis. No neck pain. 3.) Memory loss. This is more notable the more I get to know her. Patient's daughter Onel is with. Has difficulty with names now. She does repeat herself throughout the visits. Has difficulty remembering if she did something. She is aware of the memory loss. Past Medical History: MD with cardiac arrest (follows at [facility]), HLD, HTN, anxiety, depression Social History: non-smoker Allergies: Atorvastatin and Morphine Medications: Medications reviewed and updated in Vimty. Review of Systems: Pertinent review of systems is noted in the HPI. Physical Exam: BP 132/74 Pulse 60 Temp 36.8 ??C (98.2 ??F) (Oral) Constitutional: Well developed, Well nourished, No acute distress, Non-toxic appearance. Neck: full ROM. No pain with ROM or palpation. Strength 5/5. Normal circulation. Sensation decreasedin finger tips bilaterally. Normal eight arm operator strength. Neuro: no focal neuro deficit. She does repeat herself and has poor memory. Total assessment time was 30 minutes, of which >50% of the time was spent in counseling and care coordination. Counseling involved coordination of care, memory evaluation, next steps in care plan and evaluaiton. Assessment and Plan: 1.) Memory loss - referral placed for neuropsychiatric testing - follow up will depend on this 2.) Bilateral hand numbness - lab evaluation without clear etiology to explain tingling. - likely MGUS - vit D def. Has not picked up supplements. Was sent to the wrong pharmacy. Resent today. 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 Allyson Pool PA-C 8:28 AM 12/21/2016 ICD-10-CM 1. Memory loss R41.3 Neuropsychological Testing/Consult-Adult 2. Numbness in both hands R20.0 NEURO--EMG ELECTRICAL NERVE CONDUCTION STUDY 3. Vitamin D deficiency (HRC) E55.9 ergocalciferol (DRISDOL) 53668 UNITS capsule cholecalciferol (VITAMIN D3) 1000 UNITS tablet documented in this encounter Plan of Treatment Scheduled Referrals Name Type Priority [facility] Diagnoses [facility] Ref[facility] Routine Memory loss Ordered: Testing/Consult-Adult 2016 documented as of this encounter Visit Diagnoses Diagnosis Memory loss - Primary Numbness in both hands Disturbance of skin sensation Vitamin D deficiency (HRC) Unspecified vitamin D deficiency documented in this encounter Care Teams Computational Linguist Relationship Specialty Start Date End Date Allyson Pool PA-C PCP - General Physician Refined Syrup Operator 09/26/16 02/28/[address] [place] [id number] documented as of this encounter
--- OUTSIDE RECORDS SUMMARY | 2022-02-21 10:31 | XMS_ITS | Encounter Summary ---
:1935 Author Organization [facility] Address [address] [place] [address] Care Team Providers Name Role Phone Allyson Pool PA-C Primary Care Provider Reason for Visit Reason Comments Hand Problem Procedure/Equipment (Routine) - Closed Specialty Diagnoses / Procedures Referred By Contact Refer red To Contact Diagnoses Numbness in both hands Allyson Pool PA-C Procedures NEURO--EMG ELECTRICAL NERVE CONDUCTION STUDY [address] [place] [address] Referral ID Status Reason Start Date Expiration Date Visits Requ ested Visits Authorized [id number] Closed 12/21/2016 03/22/2018 1 1 Encounter Details Date Type Department Care Team Description 01/23/2017 Procedure Visit Specialty Center 3931 Skip Greenwood MD Hand Problem Neurology 3931 [facility] [address] [place] [address] [place] [address] [phone] (Wo rk) Social History Tobacco Use Types Packs/Day Years Used Date Smoking Tobacco: Never Smokeless Tobacco: Never Alcohol Use Standard Drinks/Week Comments Yes 0 (1 standard drink = 0.6 oz pure alcoho l) rare occasions Sex Assigned at Date Recorded Not on file documented as of this encounter Progress Notes Clifton Greenwood MD - 01/23/2017 12:21 PM CDT NAME: FIDELIA LUNDBERG MR#: [id number] CSN: [id number] AUTHENTICATING CLINICIAN: Clifton Greenwood MD CONFIRM #: [id number] LOC: 223 CLINIC PROGRESS NOTE DATE OF VISIT: 01/23/2017 : 1935 HISTORY OF PRESENT ILLNESS: This 81-year-old woman is seen today in the EMG laboratory accompanied by her daughter for evaluation of bilateral hand numbness. She notes it in the thumb and all fingers of both hands. It began about3 months ago without obvious animal laboratory helper. She is not noting any neck pain or radicular symptomatology. She is not noting any diminished strength. She has, however, been dropping some things which may relate to her decreased sensation. PAST MEDICAL HISTORY: Remarkable for a previous history of NH, aortic valve disease, hypertension, hyperlipidemia, obesity. MEDICATION LIST: Reviewed in Epic. PHYSICAL EXAMINATION: GENERAL: Today, a 81-year-old, pleasant woman. No acute distress. UPPER EXTREMITIES: Examination remarkable for obesity. Her strength in the upper extremities was 5/5. Sensation was equal to light touch to the fingers and thumb of both hands. Reflexes were difficult to obtain due to habitus. ASSESSMENT: A 81-year-old woman with at least a 3-month history of bilateral hand numbness, rule out underlying neuropathic etiologies. RECOMMENDATIONS: Nerve conduction velocity study of both upper extremities and selected muscle study of right upper extremity is performed today and reveals: 1. 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 2. Borderline median sensory neuropathies at the wrist. 3. Borderline left ulnar motor and sensory neuropathy at the elbow. There is no distal denervation. 4. 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 The underlying sensory neuropathy likely is the reason for the focal sensory entrapment at the wristand elbow. Patient will follow up with physician social science research assistant, Yrn, as planned. CC: ANGELINA WOODS [id number] [place] [id number] ECS:MEDQ C: CONFIRM #: [id number] documented in this encounter Plan of Treatment Not on filedocumented as of this encounter Visit Diagnoses Diagnosis Idiopathic peripheral neuropathy - Prima ry Unspecified hereditary and idiopathic pe ripheral neuropathy Bilateral carpal tunnel syndrome Carpal tunnel syndrome Ulnar neuropathy at elbow, right Numbness in both hands Disturbance of skin sensation documented in this encounter Care Teams Public Policy Mediator Relationship Specialty Start Date End Date Allyson Pool PA-C PCP - General Physician Elevator Constructor Electric 09/26/16 02/28/21 [address] [place] [address] documented as of this encounter
--- OUTSIDE RECORDS SUMMARY | 2022-02-21 10:31 | XMS_ITS | Encounter Summary ---
:1935 Author Organization [employer] Address [address] [place] [address] Care Team Providers Name Role Phone Allyson Pool PA-C Primary Care Provider Reason for Visit Reason Comments Home Care Update Encounter Details Date Type Department Care Team Description 05/09/2017 Telephone Specialty Center 3931 Doreen Escobar, master of ceremonies Update Neurology 3931 [place], [place] [address] Social History Tobacco Use Types Packs/Day Years Used Date Smoking Tobacco: Never Smokeless Tobacco: Never Alcohol Use Standard Drinks/Week Comments Yes 0 (1 standard drink = 0.6 oz pure alcoho l) rare occasions Sex Assigned at Date Recorded Not on file documented as of this encounter Nursing Notes Doreen Escobar RN - 05/09/2017 1:34 PM CST LM with verbal orders as above. UET DIRECTOR Jose Aldridge MD - 05/09/2017 1:28 PM CST Yes this is fine UET DIRECTOR Doreen Escobar RN - 05/09/2017 1:22 PM CST Kenzie from [facility] called requesting continuation of services for OT for cognitive evaluation, home safety and lower extremity strengthening. She is also requesting a social work eval. Okay to order? UET DIRECTOR documented in this encounter Plan of Treatment Not on filedocumented as of this encounter Visit Diagnoses Not on filedocumented in this encounter Care Teams Yoga Teacher Relationship Specialty Start Date End Date Allyson Pool PA-C PCP - General Physician Final Assembly And Packing Supervisor 09/26/16 02/28/[address] [place] [address] documented as of this encounter
--- OUTSIDE RECORDS SUMMARY | 2022-02-21 10:31 | XMS_ITS | Encounter Summary ---
:1935 Author Organization [email or web address] Address [address] [place] [address] Care Team Providers Name Role Phone Allyson Pool PA-C Primary Care Provider Reason for Visit Reason Comments [facility] Encounter Details Date Type Department Care Team Description 05/07/2017 Telephone Specialty Center 3931 Doreen Escobar, RN [facility] Neurology 3931 [place], [place] [address] Social History Tobacco Use Types Packs/Day Years Used Date Smoking Tobacco: Never Smokeless Tobacco: Never Alcohol Use Standard Drinks/Week Comments Yes 0 (1 standard drink = 0.6 oz pure alcoho l) rare occasions Sex Assigned at Date Recorded Not on file documented as of this encounter Nursing Notes Doreen Escobar RN - 05/07/2017 12:23 PM CST Updated homecare nurse. ER AND TRANSITION TEACHER Jose Aldridge MD - 05/07/2017 11:55 AM CST Yes this is fine, thanks ER AND TRANSITION TEACHER Doreen Escobar RN - 05/07/2017 11:01 AM CST Pt was hospitalized 05/02-05/04 due to weakness and increased falls. Homecare was ordered at discharge. Homecare is wondering if you would be willing to give some orders since you have seen her recently. They are requesting homecare nursing 3xweekly for 1 week, 2xweekly for 2 weeks, 1xweekly for 2 weeks and 3 PRN. They are also requesting PT/OT eval and treat. Okay to order? ER AND TRANSITION TEACHER documented in this encounter Plan of Treatment Not on filedocumented as of this encounter Visit Diagnoses Not on filedocumented in this encounter Care Teams Lehr Tender Relationship Specialty Start Date End Date Allyson Pool PA-C PCP - General Physician Psychometrician 09/26/16 02/28/21 [address] [place] [id number] documented as of this encounter
--- OUTSIDE RECORDS SUMMARY | 2022-02-21 10:31 | XMS_ITS | Encounter Summary ---
:1935 Author Organization [employer] Address [address] [place] [address] Care Team Providers Name Role Phone Allyson Pool PA-C Primary Care Provider Reason for Visit Reason Comments Medication Questions Encounter Details Date Type Department Care Team Description 05/16/2017 Telephone [facility] Allyson Pool PA-C Medication Questions Medicine [address] [facility] [address] [place], [place] [address] [place] [address] [phone] Social History Tobacco Use Types Packs/Day Years Used Date Smoking Tobacco: Never Smokeless Tobacco: Never Alcohol Use Standard Drinks/Week Comments Yes 0 (1 standard drink = 0.6 oz pure alcoho l) rare occasions Sex Assigned at Date Recorded Not on file documented as of this encounter Nursing Notes Estrella Vann LPN - 05/16/2017 4:35 PM CST I called and spoke to pt's Mayo and notified him that she can take the medication tonight and get her potassium checked while in clinic tomorrow for other testing. Mayo verbalized understanding that if her potassium is normal tomorrow while on the medication then it will continue. If her potassium is low then Allyson Pool PA-C will re-evaluate what the next step will be. VIORAL SPECIALIST Allyson Pool PA-C - 05/16/2017 4:11 PM CST This was stopped in the hospital 2/2 low potassium. Her BP was normal yesterday. If she could come into clinic and get a potassium check. If it is normal then we can keep her on this. Allyson Pool PA-C 4:12 PM 05/16/2017 VIORAL SPECIALIST Katharine Beckham RN - 05/16/2017 3:53 PM CST Reason for Call: FYI--pt seen yesterday as hosp f/u. Next Steps: Document further recommendations and route to appropriate person or pool. Caller IS expecting a call back from Care Team. Additional Information: calling back that pt is taking triamterene-HCTZ 37.5/25 mg 0.5 tab nightly. Pt was seen yesterday and he is calling to kandi Valadez about this med. If further questions, callback: Mayo Vyas () [phone] VIORAL SPECIALIST Jamila Lassiter RN - 05/16/2017 12:23 PM CST Left message to return call to [phone] for more information. VIORAL SPECIALIST Fernandez He - 05/16/2017 11:26 AM CST Caller patients calling to let PCP know patient is still taking triamterene and requesting acall back from PCP's nurse. Detailed message ok, please advise. VIORAL SPECIALIST documented in this encounter Plan of Treatment Not on filedocumented as of this encounter Results Potassium (05/17/2017 1:45 PM BEHAVIORAL SPECIALIST) P athologist Signature Potassium 3.5 3.5 - 5.2 PN SOFT mmol/L Specimen Anatomical Collection Method Collection Time Receive d Time (Source) Location / / Volume Laterality 05/17/2017 1:45 PM 8 1:45 BEHAVIORAL SPECIALIST PM BEHAVIORAL SPECIALIST Narrative PN SOFT - 05/17/2017 3:23 PM BEHAVIORAL SPECIALIST Performed at [facility], [address] [place] [address] CLIA number [id number] Allyson Pool PA-C LAB_1 Performing Organization Address City/State/ZIP Code Phon e Number PN SOFT [address] [place] [address] documented in this encounter Visit Diagnoses Diagnosis Hypokalemia - Primary Hypopotassemia Hypokalemia Hypopotassemia documented in this encounter Care Teams Architecture Department Chair Relationship Specialty Start Date End Date Allyson Pool PA-C PCP - General Physician Cigarette Seller 09/26/16 02/28/21 [address] [place] [id number] documented as of this encounter
--- OUTSIDE RECORDS SUMMARY | 2022-02-21 10:31 | XMS_ITS | Encounter Summary ---
:1935 Author Organization [employer] Address [address], [place] [address] Care Team Providers Name Role Phone Allyson Pool PA-C Primary Care Provider Reason for Referral Procedure/Equipment (Routine) - Incomplete Specialty Diagnoses / Procedures Referred By Contact Refer red To Contact Diagnoses Abnormal MRI Jose Aldridge MD Procedures MR Brain W/WO IV Cont 3931 [facility] [address] [place] [address] Referral ID Status Reason Start Date Expiration Date Visits V isits Requested Authorized [id number] Incomplete 03/28/2017 06/27/2018 1 1 UREMENT ASSISTANT Reason for Visit Reason Comments MRI Results Encounter Details Date Type Department Care Team Description 03/28/2017 Telephone Specialty Center 393 1 Neurology Doreen Escobar, RN MRI Results 3931 [place] [address] Social History Tobacco Use Types Packs/Day Years Used Date Smoking Tobacco: Never Smokeless Tobacco: Never Alcohol Use Standard Drinks/Week Comments Yes 0 (1 standard drink = 0.6 oz pure alcoho l) rare occasions Sex Assigned at Date Recorded Not on file documented as of this encounter Nursing Notes Doreen Escobar, RN - 03/28/2017 11:41 AM CST Updated pt. Scheduled for f/u MRI in late April. Rx sent for donpezil, pt's states understanding of new medication and reason for second scan. Rx for diazepam 5mg #2 with 0 refills called into pharmacy for sedation for MRI scan. UREMENT ASSISTANT Doreen Escobar RN - 03/28/2017 11:29 AM CST ----- Message from Jose Aldridge MD sent at 03/28/2017 8:31 AM PROCUREMENT ASSISTANT ----- Please let pt/ know that her MRI [...] clinic in the next 3-6 months. Thanks. UREMENT ASSISTANT documented in this encounter Plan of Treatment Not on filedocumented as of this encounter Results MR Brain W/WO IV Cont (05/17/2017 1:27 PM PROCUREMENT ASSISTANT) Anatomical Region Laterality Modality Head Magnetic Resonance Specimen (Source) Anatomical Collection Method Collection Time Re ceived Time Location / / Volume Laterality 05/17/2017 12:51 PM PROCUREMENT ASSISTANT Impressions 05/17/2017 1:50 PM PROCUREMENT ASSISTANT IMPRESSION: ?? 1. ??Unchanged small 8 mm [...] lakes or hemangiomas. Narrative 05/17/2017 1:50 PM PROCUREMENT ASSISTANT INDICATION: f/u abnormal MRI ?? TECHNIQUE: ??MRI of the head with and wi thout contrast using tumor protocol, 10 mL GADOBUTROL 1 MMOL/ML IV SOLN. COMPARISON: Brain MRI 03/27/2017 FINDINGS: ??Normal diffusion. 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 Unchanged ujps-ee-htqizkza scattered small T2 and FLAIR hyperintense foci [...] along the superior left cerebellar hemisphere. Unchanged dhst-sj-lcdzrknj scattered small T2 and FLAIR hyperintense foci [...] radiological and other examinations of body structure Abnormal MRI Other nonspecific (abnormal) findings on radiological and other examinations of body structure documented in this encounter Care Teams Dedicated Driver Relationship Specialty Start Date End Date Allyson Pool PA-C PCP - General Physician Software Release Engineer 09/26/16 02/28/[address] [place] [address] documented as of this encounter
--- OUTSIDE RECORDS SUMMARY | 2022-02-21 10:31 | XMS_ITS | Encounter Summary ---
:1935 Author Organization [employer] Address [address] [place] [address] Care Team Providers Name Role Phone Allyson Pool PA-C Primary Care Provider Reason for Referral Consult/Transfer Care (Routine) - Closed Specialty Diagnoses / Procedures Referred By Contact Refer red To Contact Diagnoses Memory loss Sensory neuronopathy Allyson Pool PA-C [address] [address] Referral ID Status Reason Start Date Expiration Date Visits Requ ested Visits Authorized [id number] Closed 01/28/2017 04/29/2018 1 1 Scheduling Instructions Your provider has recommended an appoint ment with [facility]. You may call [phone] to schedule your appoi ntment. If you do not schedule an appointment within the next 1 to 3 business days, we will call you to help arrange your appointment. We suggest you call your [employer] insurance company about your coverage and benefits for this appointment. Reason for Visit Reason Onset Date Comments RESULTS, TEST 01/28/2017 Encounter Details Date Type Department Care Team Description 01/28/2017 Telephone Allyson Palomo PA-C RESULTS, TEST Medicine [address] [address] [place] [address] [place] [address] [phone] Social History Tobacco Use Types Packs/Day Years Used Date Smoking Tobacco: Never Smokeless Tobacco: Never Alcohol Use Standard Drinks/Week Comments Yes 0 (1 standard drink = 0.6 oz pure alcoho l) rare occasions Sex Assigned at Date Recorded Not on file documented as of this encounter Nursing Notes Estrella Vann LPN - 01/29/2017 2:45 PM CDT Called and advised pt of message below. Pt verbalized understanding. Pt was contacted this morning and is scheduled for a neurology consult on Mar 22. Estrella Vann LPN - 01/28/2017 1:50 PM CDT Called and left vm for pt. I instructed pt to call the clinic back at [phone] to receive the message below and to get Neurology scheduling [phone]. Please attempt to transfer call back to [facility] ext [phone], if not available please relay message and transfer to Neurology for scheduling. Darin Allyson Pool PA-C - 01/28/2017 12:52 PM CDT Please let patient know her EMG shows sensory neuropathy. Can you please have her follow up with neurology to discuss not only this but her memory loss. 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
--- OUTSIDE RECORDS SUMMARY | 2022-02-21 10:31 | XMS_ITS | Encounter Summary ---
:1935 Author Organization [employer] Address [address] [place] [address] Care Team Providers Name Role Phone Allyson Pool PA-C Primary Care Provider Encounter Details Date Type Department Care Team Description 12/05/2016 Lab Visit [facility] Elevated serum protein [address] [place] [address] Social History Tobacco Use Types [...] Name Priority Date/Time Associated Diagnosis Comme nts LAB IGM Routine 12/05/2016 4:03 PM Elevated serum Results for this CDT protein level procedure are in the results section. FREE LIGHT CHAINS, Routine 12/05/2016 4:03 PM Elevated serum R esults for this SERUM CDT protein level procedure are in the results section. IGG, SERUM Routine 12/05/2016 4:03 PM Elevated serum Results for this CDT protein level procedure are in the results section. IGA, SERUM Routine 12/05/2016 4:03 PM Elevated serum Results for this CDT protein level procedure are in the results section. documented in this encounter Results (ABNORMAL) Free Light Chains, Serum - today (12/05/2016 4:03 PM CDT) P athologist Signature [place] Free 3.63 (H) 0.33 - PN SOFT Light Chains 1.94 mg/dl Lambda Free 1.73 0.57 - PN SOFT Light Chains 2.63 mg/dl [place]/Lambda 2.10 (H) 0.26 - PN SOFT Ratio Free 1.65 Light Chains Comment: Performed at [facility], [address] ??[address] CLIA Number [id number] Specimen Anatomical Collection Method Collection Time Receive d Time (Source) Location / / Volume Laterality 12/05/2016 4:03 PM 7 9:23 CDT PM CDT Marlys Luna [facility] Performing Organization Address [facility] Phon e Number PN SOFT [address] [place] [address] IgA, Serum - today (12/05/2016 4:03 PM CDT) athologist Signature Immunoglobulin A 239 69 - 517 PN SOFT mg/dL Specimen Anatomical Collection Method Collection Time Receive d Time (Source) Location / / Volume Laterality 12/05/2016 4:03 PM 7 9:20 CDT PM CDT Narrative PN SOFT - 12/05/2016 11:55 PM CDT Performed at [address] [address] CLIA number [id number] Marlys Luna [facility] Performing Organization Address [facility] Phon e Number PN SOFT [address] [place] [address] IgM - today (12/05/2016 4:03 PM CDT) athologist Signature Immunoglobulin M 96 33 - 293 PN SOFT mg/dL Specimen Anatomical Collection Method Collection Time Receive d Time (Source) Location / / Volume Laterality 12/05/2016 4:03 PM 7 9:20 CDT PM CDT Narrative PN SOFT - 12/05/2016 11:55 PM CDT Performed at [address] [address] CLIA number [id number] Marlys Rocherusty Cheryl [facility] Performing Organization Address [facility] Phon e Number PN SOFT [address] [place] [address] IgG - today (12/05/2016 4:03 PM CDT) athologist Signature Immunoglobulin G 1,342 552 - PN SOFT 1,631 mg/dL Specimen Anatomical Collection Method Collection Time Receive d Time (Source) Location / / Volume Laterality 12/05/2016 4:03 PM 201 7 9:20 CDT PM CDT Narrative PN SOFT - 12/05/2016 11:55 PM CDT Performed at [address] [address] CLIA number [id number] Marlys Rochefrancescarome DelgadilloCheryl [facility] Performing Organization Address [facility] Phon e Number PN SOFT [address] [place] [address] [phone] documented in this encounter Visit Diagnoses Diagnosis Elevated serum protein level documented in this encounter Care Teams Clinical Manager Relationship Specialty Start Date End Date Allyson Pool PA-C PCP - General Physician Private Pilot 09/26/16 02/28/21 [id number] [place] [id number] documented as of this encounter
--- OUTSIDE RECORDS SUMMARY | 2022-02-21 10:31 | XMS_ITS | Encounter Summary ---
:1935 Author Organization [facility] Address [address] [place] [address] Care Team Providers Name Role Phone Allyson Pool PA-C Primary Care Provider Reason for Referral Consult/Transfer Care (Routine) - Closed Specialty Diagnoses / Procedures Referred By Contact Refer red To Contact Diagnoses Memory loss Sensory neuronopathy Allyson Pool PA-C [address] [place] [address] Referral ID Status Reason Start Date Expiration Date Visits Requ ested Visits Authorized [id number] Closed 05/15/2017 08/14/2018 1 1 Scheduling Instructions Your provider has recommended an appoint ment with Sana Lopez. You may call [phone] to schedule your appoi ntment. If you do not schedule an appointment within the next 1 to 3 business days, we will call you to help arrange your appointment. We suggest you call your [employer] insurance company about your coverage and benefits for this appointment. SOFTWARE ARCHITECT Procedure/Equipment (Routine) - Incomplete Specialty Diagnoses / Procedures Referred By Contact Refer red To Contact Diagnoses Mediastinal cyst Allyson Pool PA-C [place] [id number] [place] [address] [id number] Referral ID Status Reason Start Date Expiration Date Visits V isits Requested Authorized [id number] Incomplete 05/15/2017 08/14/2018 1 1 SOFTWARE ARCHITECT Procedure/Equipment (Routine) - Incomplete Specialty Diagnoses / Procedures Referred By Contact Refer red To Contact Diagnoses Thyroid nodule (HRC) Allyson Pool PA-C Procedures [place] Thyroid [address] [place] [address] Referral ID Status Reason Start Date Expiration Date Visits V isits Requested Authorized [id number] Incomplete 05/15/2017 08/14/2018 1 1 SOFTWARE ARCHITECT Reason for Visit Reason Comments FALL Has fallen a few times and d id testing to rule out stroke, but now has unstable gait, needs wal ker to get around Thyroid Problem Nodules noted on a scan Encounter Details Date Type Department Care Team Description 05/15/2017 Office Visit [facility] Allyson Pool PA-C Hospital discharge follow-up (Primary Dx ); Medicine [address] Thyroid nodule; [address] [place], [place] Mediastinal cyst; [place] [address] MGUS (monoclonal gammopathy of unknown s ignificance); [phone] (Wo rk) Memory loss; Falls roxi quently; Sensory neurono elias; Brain mass Social History Tobacco Use Types Packs/Day Years Used Date Smoking Tobacco: Never Smokeless Tobacco: Never Alcohol Use Standard Drinks/Week Comments Yes 0 (1 standard drink = 0.6 oz pure alcoho l) rare occasions Sex Assigned at Date Recorded Not on file documented as of this encounter Last Filed Vital Signs Vital Sign Reading Time Taken Comments Blood Pressure 116/56 05/15/2017 11:53 AM NET SOFTWARE ARCHITECT Pulse 63 05/15/2017 11:53 AM NET SOFTWARE ARCHITECT Temperature - - Respiratory Rate - - Oxygen Saturation 96% 05/15/2017 11:53 AM NET SOFTWARE ARCHITECT Inhaled Oxygen Concentration - - Weight - - Height - - Body Mass Index - - documented in this encounter Patient Instructions Patient InstructionsEstrella Vann LPN - 05/15/2017 11:30 AM CST You imaging appointments will take place this SaturdayMay 17: No Food for 3 hours before scans start, but drink plenty of clear liquids. Lower Level, Thyroid US check in 11:00 am scan will start at 11:15 am 1st Floor, Chest CT check in as soon as US is done, scan will start at 12:20 pm 1st Floor, MRI remain in CT/MRI area scan will start at 1:30 pm. Bring Valium in original packaging to your MRI, they will direct you to take it. I will have my social media project manager contact you Please check if you are taking triamterene-hydrochlorothiazide. Please call me and let me know either way if you are taking this or not. They asked you to stop this when you were in the hospital. Follow up with neurology will be on May 31 at 1:00 pm in [place], [place] SOFTWARE ARCHITECT documented in this encounter Progress Notes Allyson Pool PA-C - 05/15/2017 11:30 AM CST Internal Medicine [facility] - Allyson Pool PA-C Fidelia Vyas 81 y.o. Female : 1935 PN Date of Service: 05/15/2017 Chief Complaint: memory loss, weakness in the hands, and numbness in hands and feet, thyroid nodule,and mediastinal cyst Major General Present: no HPI: Fidelia Vyas is a 81 y.o. female who presents with her daughter Onel and her Ed. Fidelia was recently in [facility] 05/02 through 05/04. That days she did not feel well and had pain in the arm. 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 She is being seen byDr. Aldridge in neurology. She is on aricept 10 mg daily. She is due for a repeat brain MRI but she has claustrophobia so is concerned to do this. MRI brain in 03/27 showed a cystic lesion favored to be a benign parenchymal cyst. A CT head with contrast from [place] in April showed small vessel ischemic disease and old lacunar infarcts. She has noted some pretty rapid deterioration in her memory. She also has had 3 falls one in March and two in April. She also has noted progressive numbness in her hands, feet, and also has limited strength and dexterity in the left hand. She missed a neurology apt yesterday in [facility]. It is really hard for Ed to get her there. No chest pain or SOB. No acute changes from her hospitalization. She is getting OT and PT at home. Needs to also establish with a social media project manager. She is living at home with her . She needs 24 care now and cannot drive, cook, or bathe safely. Incidentally noted on imaging was right thyroid nodule and mediastinal cyst. Needs further evaluation. Past Medical History: [place], aortic valve sclerosis, HLD, HTN, anxiety, depression, MGUS, sensory neuropathy memory loss Social History: non-smoker Allergies: Atorvastatin and Morphine Medications: Medications reviewed and updated in [employer]. Review of Systems: Complete review of systems assessed. Pertinent review of systems negative except for what is noted in the HPI. All others systems negative. Physical Exam: BP 116/56 Pulse 63 SpO2 96% Constitutional: Well developed, Well nourished, No acute [...] auscultation bilaterally, no wheezes, rhonchi, or rales. Lymph: No concerning anterior or posterior cervical or supraclavicular adenopathy Neuro: notable short term and longer term memory loss. Often calls upon family to answer questions. She has notable weakness in the left hand and some mild in the left leg. No facial droop. Normal sensation in face. She has numbness in both hands. Psychiatric: Mood and affect appropriate to the situation. Assessment and Plan: 1.) Progressive memory loss and neuropathy in hands and feet with arm and hand weakness (left>right) - will try to get her in for her brain MRI. Valium 10 mg to help with claustrophobia. States took 1 pill last time and did not help. Unclear on the dosing. Want her to take 10 mg - I am trying to see if I can get her in sooner then 06/21 with neurology. They missed an apt so this may be hard. Urgent referral placed - we discussed establishing with a social media project manager and I will send a message to Martha Rosemaykelpiper to contact family. - at this time I did discuss with the family they need to start discussing what they want to do withher care. It is a lot of work for her to care for her. They may need to consider a memory care place. 2.) Thyroid nodule - thyroid US ordered. - TSH normal in October 2016 3.) Mediastinal cyst - CT chest with contrast ordered 4.) MGUS - about due for a heme follow up but will try to get some of the above done first - Patient advised to follow up if symptoms do not improve, sooner if there are new or worsening symptoms. Allyson Pool PA-C 12:53 PM 05/15/2017 ICD-10-CM 1. Hospital discharge follow-up Z09 2. Thyroid nodule (HRC) E04.1 US Thyroid CANCELED: TSH with Free T4 (if TSH Abnormal) 3. Mediastinal cyst Q34.1 CT Chest W IV Cont 4. MGUS (monoclonal gammopathy of unknown significance) (HRC) D47.2 5. Memory loss R41.3 Neurology Consult-Adults 6. Falls frequently R29.6 7. Sensory neuronopathy G54.9 Neurology Consult-Adults 8. Brain mass G93.9 diazePAM (VALIUM) 5 MG tablet SOFTWARE ARCHITECT documented in this encounter Plan of Treatment Scheduled Referrals Name Type Priority Associated Diagnoses Order S [facility] Neurology Referral Routine Memory loss Ordered: 05/15/2017 Consult-Adults Sensory neuronopathy documented as of this encounter Results CT Chest W IV Cont (05/17/2017 12:23 PM NET SOFTWARE ARCHITECT) Anatomical Region Laterality Modality Chest, Lung Computed Tomography Specimen (Source) Anatomical Collection Method Collection Time Re ceived Time Location / / Volume Laterality 05/17/2017 12:19 PM NET SOFTWARE ARCHITECT Impressions 05/17/2017 1:20 PM NET SOFTWARE ARCHITECT IMPRESSION: ??Benign appearing mediastinal/pericardial cyst. Narrative 05/17/2017 1:20 PM NET SOFTWARE ARCHITECT COMPARISON: ??None. TECHNIQUE: ??Images were obtained throug [...] enhancing wall or nodular component. Procedure Note Guillermo Galindo MD - 05/17/2017Forma tting of this note [...] /pericardial cyst. Allyson Pool PA-C RAD CT US Thyroid (05/17/2017 11:23 AM NET SOFTWARE ARCHITECT) Anatomical Region Laterality Modality Neck, Head Ultrasound Specimen (Source) Anatomical Collection Method Collection Time Re ceived Time Location / / Volume Laterality 05/17/2017 11:00 AM NET SOFTWARE ARCHITECT Impressions 05/17/2017 11:30 AM NET SOFTWARE ARCHITECT IMPRESSION: Somewhat ill-defined mixed echogenicity nodule right lobe of thyroid gland. Narrative 05/17/2017 11:30 AM NET SOFTWARE ARCHITECT COMPARISON: ??None. FINDINGS: RIGHT LOBE: ??Measures 4.2 x 1.7 x 2.2 c m. Inhomogeneous echotexture. Somewhat ill-defined mixed echogenicity nodule measures 2.0 x 1.6 x 1.6 cm. LEFT LOBE: Measures 4.5 x 1.5 x 1.7 cm. ??Inhomogeneous echotexture. Subcentimeter hypoechoic nodule. CENTRAL CERVICAL NODE: Lymph nodes noted . ISTHMUS: 0.6 cm. Inhomogeneous echotextu re. Procedure Note Guillermo Galindo MD - 05/17/2017Forma tting of this note might be different from the original. COMPARISON: None. FINDINGS: RIGHT LOBE: Measures 4.2 x 1.7 x 2.2 cm. Inhomogeneous echotexture. Somewhat ill-defined mixed echogenicity nodule measures 2.0 x 1.6 x 1.6 cm. LEFT LOBE: Measures 4.5 x 1.5 x 1.7 cm. Inhomogeneous echotexture. Subcentimeter hypoechoic nodule. CENTRAL CERVICAL NODE: Lymph nodes noted . ISTHMUS: 0.6 cm. Inhomogeneous echotextu re. IMPRESSION IMPRESSION: Somewhat ill-defined mixed e chogenicity nodule right lobe of thyroid gland. 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
--- OUTSIDE RECORDS SUMMARY | 2022-02-21 10:31 | XMS_ITS | Encounter Summary ---
:1935 Author Organization [facility] Address [address] [place] [address] Care Team Providers Name Role Phone Allyson Pool PA-C Primary Care Provider Reason for Visit Procedure/Equipment (Routine) - Incomplete Specialty Diagnoses / Procedures Referred By Contact Refer red To Contact Diagnoses Thyroid nodule (HRC) Allyson Pool PA-C Procedures [place] Thyroid [address] [place] [address] Referral ID Status Reason Start Date Expiration Date Visits V isits Requested Authorized [id number] Incomplete 05/15/2017 08/14/2018 1 1 Encounter Details Date Type Department Care Team Description 05/17/2017 Imaging [place] [facility] Allyson Pool PA-C Thyroid nodule [address] [place] [address] [place] [address] [phone] (Wo rk) Social History Tobacco Use Types [...] Associated Diagnosis Comme nts US THYROID Routine 05/17/2017 11:23 AM Thyroid nodule Result s for this OBIEE LEAD DEVELOPER procedure are i n the results section . documented in this encounter Results US Thyroid (05/17/2017 11:23 AM OBIEE LEAD DEVELOPER) Anatomical Region Laterality Modality Neck, Head Ultrasound Specimen (Source) Anatomical Collection Method Collection Time Re ceived Time Location / / Volume Laterality 05/17/2017 11:00 AM OBIEE LEAD DEVELOPER Impressions 05/17/2017 11:30 AM OBIEE LEAD DEVELOPER IMPRESSION: Somewhat ill-defined mixed echogenicity nodule right lobe of thyroid gland. Narrative 05/17/2017 11:30 AM OBIEE LEAD DEVELOPER COMPARISON: ??None. FINDINGS: RIGHT LOBE: ??Measures 4.2 x 1.7 x 2.2 c m. Inhomogeneous echotexture. Somewhat ill-defined mixed echogenicity nodule measures 2.0 x 1.6 x 1.6 cm. LEFT LOBE: Measures 4.5 x 1.5 x 1.7 cm. ??Inhomogeneous echotexture. Subcentimeter hypoechoic nodule. CENTRAL CERVICAL NODE: Lymph nodes noted . ISTHMUS: 0.6 cm. Inhomogeneous echotextu re. Procedure Note OncGuillermo flores MD - 05/17/2017Forma [...] goiter documented in this encounter Care Teams Candle Molder Relationship Specialty Start Date End Date Allyson Pool PA-C PCP - General Physician Sample Maker Hand 09/26/16 02/28/21 [address] [place] [id number] documented as of this encounter
--- OUTSIDE RECORDS SUMMARY | 2022-02-21 10:31 | XMS_ITS | Encounter Summary ---
:1935 Author Organization [employer] [facility] Address [address], [place] [address] Care Team Providers Name Role Phone Allyson Pool PA-C Primary Care Provider Reason for Referral Therapies (Routine) - Closed Specialty Diagnoses / Procedures Referred By Contact Refer red To Contact Diagnoses Numbness and tingling in both hands Jose Aldridge MD [facility] [address] [facility] [address] [place] [address] Referral ID Status Reason Start Date Expiration Date Visits Requ ested Visits Authorized [id number] Closed 03/22/2017 05/21/2017 1 1 Scheduling Instructions If scheduling assistance is needed, jose roberto rhodes inquire with the medical office staff upon exiting your appointment or contact the ordering clinic for recommended locations. This recommended service/s may not be co singh by your insurance coverage. To find out your specific benefit coverage, please c all the number on your insurance card. ENTARY EDUCATOR Reason for Visit Reason Comments CONSULT Consult/Transfer Care (Routine) - Closed Specialty Diagnoses / Procedures Referred By Contact Refer red To Contact Diagnoses Memory loss Sensory neuronopathy Allyson Pool PA-C [address] [place] [address] Referral ID Status Reason Start Date Expiration Date Visits Requ ested Visits Authorized [id number] Closed 01/28/2017 04/29/2018 1 1 Encounter Details Date Type Department Care Team Description 03/22/2017 Initial Consult [place] [address] Jose Aldridge, Memory loss (Primary Dx); Neurology Numbness and tingling in both hands [address] [place] [address] [place] [address] [place] [address] [place] [address] [place], [place] [phone] [address] Social History Tobacco Use Types Packs/Day Years Used Date Smoking Tobacco: Never Smokeless Tobacco: Never Alcohol Use Standard Drinks/Week Comments Yes 0 (1 standard drink = 0.6 oz pure alcoho l) rare occasions Sex Assigned at Date Recorded Not on file documented as of this encounter Last Filed Vital Signs Vital Sign Reading Time Taken Comments Blood Pressure 142/70 03/22/2017 2:35 PM ELEMENTARY EDUCATOR Pulse 60 03/22/2017 2:35 PM ELEMENTARY EDUCATOR Temperature - - Respiratory Rate 12 03/22/2017 2:35 PM ELEMENTARY EDUCATOR Oxygen Saturation - - Inhaled Oxygen Concentration - - Weight - - Height - - Body Mass Index - - documented in this encounter Patient Instructions Patient InstructionsJose Aldridge MD - 03/22/2017 2:30 PM CST Increase paroxetine (Paxil) to 2 pills per day MRI of the brain to evaluate for other causes of memory loss - we will call you with the results Occupational therapy for hand numbness If MRI does not show any other problems, I will give you instructions to start a medication for yourmemory ENTARY EDUCATOR documented in this encounter Progress Notes Doreen Escobar RN - 03/22/2017 2:30 PM CST Rx for valium 5mg #2 with 0 refills called into [facility] in [place] for sedation for MRI scan. ENTARY EDUCATOR Jose Aldridge MD - 03/22/2017 12:00 PM CST NAME: WAQAR LUNDBERG MR#: [id number] CSN: [id number] AUTHENTICATING CLINICIAN: Jose Aldridge MD CONFIRM #: [id number] LOC: 223 CLINIC PROGRESS NOTE DATE OF VISIT: 03/22/2017 : 1935 CHIEF COMPLAINT: Memory loss, numbness of the hands. HISTORY OF PRESENT ILLNESS: Waqar Lundberg is a 81-year-old woman here for evaluation of 2 issues. The first is memory loss that has been going on for about a year and has been progressive in nature. It involves short-term memory loss. She has forgotten to pay bills at times. She repeats herself frequently and ask questions of things that were said a few minutes ago. It has been noticed mostly by her and daughter and notas much by her. She relates increase in anxiety as well over the last few months, which she thinks contributes. She is on paroxetine 10 mg daily for anxiety. Over the last 3-4 months, she has noticed numbness of the hands. It is fairly symmetric in both hands. It seems worse when she wakes up in the morning. It seems to be worse if she is under stress or anxiety. She has more trouble turning a knob or twisting lids off jars. Workup for these issues has included EMG/nerve conduction studies on January 23 of this year. 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 She also had several laboratory studies, including CBC, basic metabolic profile, magnesium, TSH, B12, phosphorus, liver function panel, all of which were normal. Serum protein electrophoresis did reveal IgG kappa monoclonal protein and it is felt likely that she has monoclonal gammopathy of unknown significance. She has been seen by Hematology. PAST MEDICAL HISTORY: 1.Coronary artery disease status post myocardial infarction in 1979 and 2000. 2.Hyperlipidemia. 3.Hypertension. 4.Monoclonal gammopathy. 5.Depression and anxiety. CURRENT MEDICATIONS: 1.Amlodipine 2.5 mg daily. 2.Aspirin 81 mg as needed. 3.Vitamin D3. 4.Crestor 40 mg daily. 5.Labetalol 50 mg in the morning and 100 mg in the evening. 6.Paroxetine 10 mg daily. 7.Triamterene/hydrochlorothiazide 37.5/25 half tablet daily. SOCIAL HISTORY: She is retired and lives with her . She does not drink alcohol or smoke. FAMILY HISTORY: Her aunt had Alzheimer's disease at an elderly age. No other neurologic conditions in the family. REVIEW OF SYSTEMS: A full 14-point review of systems based on symptom questionnaire, including neurologic review of systems otherwise notable for some difficulty with balance due to right hip pain. PHYSICAL EXAM: VITAL SIGNS: Blood pressure 142/70, pulse 60, respiratory rate 12. GENERAL: She is alert in no acute distress. CARDIOVASCULAR: Regular rate and rhythm without murmur. No carotid bruits. RESPIRATORY: Clear to auscultation bilaterally. NECK: Supple without masses or adenopathy. NEUROLOGIC: Mental status: Mini-mental status exam was 24/30 missing 2 for orientation, 3 for delayed recall, and 1 for 3 step command. She did repeat herself a fair amount throughout the exam. Speech: Occasional word-finding difficulty. No dysarthria or hypophonia. Cranial nerves: 2 through 12 including ophthalmoscopic exam was normal. Motor: Tone is normal. Strength is predominantly 5/5 throughout the upper and lower extremities withsome diminished effort distally in the hands, but perhaps some interossei weakness of both hands. Lower extremity strength was normal. Sensation: Reduced sensation to pinprick in a stocking distribution bilaterally and moderate to severe vibration sense in the ankle and foot bilaterally, although this is probably partly related to peripheral edema. Proprioception was only mildly decreased in the great toe bilaterally. Coordination: Expvme-yz-noxb, fine finger movements were done without ataxia or dysmetria. Deep tendon reflexes: 2+ and symmetric in the upper extremities and patellas, 1+ at the Achilles bilaterally. Gait: She had an antalgic gait favoring her right leg and a mildly wide-based gait. IMPRESSION: 1.Cognitive impairment, suspect multifactorial, but possible early Alzheimer's dementia. 2.Sensory neuropathy. She has had a fairly thorough evaluation for sensory neuropathy with recent blood testing. I recommend occupational therapy hand evaluation and treatment for a next step. I do not think a wrist brace would be all that helpful given the lack of compressive focal neuropathy. For memory loss, we discussed possible contributing factor of anxiety and she will increase her paroxetine to 20 mg daily. I will get an MRI of the brain with and without contrast at [facility] for further evaluation. Should this not reveal any other causes, I would have her start donepezil starting at 5 mg daily for 2 weeks then increasing to 10 mg per day after that. We will be in contact after MRI and probably see her back in the next 3-6 months. CC: ANGELINA WOODS [id number] [place] [id number] DIK:RANDI C: CONFIRM #: [id number] ENTARY EDUCATOR documented in this encounter Plan of Treatment Scheduled Referrals Name Type Priority Associated Diagnoses Order S chedule Occupational Therapy Referral Routine Numbness and tinglin g in Ordered: 03/22/2017 both hands documented as of this encounter Results Creatinine / GFR (03/25/2017 10:50 AM ELEMENTARY EDUCATOR) athologist Signature Creatinine Serum 0.80 0.55 - [...] Time (Source) Location / / Volume Laterality 03/25/2017 10:50 03/25/2017 AM ELEMENTARY EDUCATOR 10:50 AM ELEMENTARY EDUCATOR Narrative PN SOFT - 03/25/2017 11:15 AM ELEMENTARY EDUCATOR Performed at [facility], [address] [facility], [place] [address] CLIA number [id number] Jose Aldridge MD LAB_1 Performing Organization Address City/State/ZIP Code Phon e Number PN SOFT [address] [place] [address] documented in this encounter Visit Diagnoses Diagnosis Memory loss - Primary Numbness and tingling in both hands Memory loss documented in this encounter Care Teams Pyrotechnist Relationship Specialty Start Date End Date Allyson Pool PA-C PCP - General Physician Dip Painter 09/26/16 02/28/21 [address] [place] [id number] documented as of this encounter
--- OUTSIDE RECORDS SUMMARY | 2022-02-21 10:31 | XMS_ITS | Encounter Summary ---
:1935 Author Organization [employer] Address [address] [place] [address] Care Team Providers Name Role Phone Allyson Pool PA-C Primary Care Provider Encounter Details Date Type Department Care Team Description 12/05/2016 Lab Visit [facility] Vitamin D deficiency [address] [place] [address] Social History Tobacco Use Types [...] Name Priority Date/Time Associated Diagnosis Comme nts INTACT PTH Routine 12/05/2016 4:03 PM Vitamin D deficiency R esults for this CDT procedure are i n the results section . CALCIUM Routine 12/05/2016 4:03 PM Vitamin D deficiency R esults for this CDT procedure are i n the results section . documented in this encounter Results Intact PTH (12/05/2016 4:03 PM CDT) athologist Signature PTH 83 10 - 100 PN SOFT pg/mL Specimen Anatomical Collection Method Collection Time Receive d Time (Source) Location / / Volume Laterality 12/05/2016 4:03 PM 7 9:11 CDT PM CDT Narrative PN SOFT - 12/05/2016 9:54 PM CDT Performed at [address] [address] CLIA number [id number] Allyson Pool PA-C LAB_1 Performing Organization Address City/[facility] Phon e Number PN SOFT [address] [place] [address] [phone] Calcium (12/05/2016 4:03 PM CDT) athologist Signature Calcium 9.1 8.4 - 10.2 PN SOFT mg/dL Specimen Anatomical Collection Method Collection Time Receive d Time (Source) Location / / Volume Laterality 12/05/2016 4:03 PM 201 7 4:02 CDT PM CDT Narrative PN SOFT - 12/05/2016 4:24 PM CDT Performed at [facility], [address] [place] [address] CLIA number [id number] Allyson Pool PA-C LAB_1 Performing Organization Address [facility] Phon e Number PN SOFT [address] [place] [address] documented in this encounter Visit Diagnoses Diagnosis Vitamin D deficiency ([facility]) Unspecified vitamin D deficiency documented in this encounter Care Teams Gear Room Keeper Relationship Specialty Start Date End Date Allyson Pool PA-C PCP - General Physician Representative 09/26/16 02/28/[address] [place] [address] documented as of this encounter
--- OUTSIDE RECORDS SUMMARY | 2022-02-21 10:31 | XMS_ITS | Encounter Summary ---
:1935 Author Organization [employer] Address [address] [place] [address] Care Team Providers Name Role Phone Allyson Pool PA-C Primary Care Provider Encounter Details Date Type Department Care Team Description 03/25/2017 Lab Visit [facility] Memory loss [address] [place] [address] Social History Tobacco Use Types [...] Diagnosis Comme nts CREATININE / GFR Routine 03/25/2017 10:50 AM Memory loss Resu lts for this AGENCY OWNER procedure are i n the results section. documented in this encounter Results Creatinine / GFR (03/25/2017 10:50 AM AGENCY OWNER) P athologist Signature Creatinine Serum 0.80 0.55 [...] / Volume Laterality 03/25/2017 10:50 03/25/2017 AM AGENCY OWNER 10:50 AM AGENCY OWNER Narrative PN SOFT - 03/25/2017 11:15 AM AGENCY OWNER Performed at [facility], [address] [place] [address] CLIA number [id number] Jose Aldridge MD LAB_1 Performing Organization Address City/State/ZIP Code Phon e Number PN SOFT [address] [place] [address] documented in this encounter Visit Diagnoses Diagnosis Memory loss documented in this encounter Care Teams Major League Baseball Player Relationship Specialty Start Date End Date Allyson Pool PA-C PCP - General Physician Rough Carpenter 09/26/16 02/28/[address] [place] [id number] documented as of this encounter
--- OUTSIDE RECORDS SUMMARY | 2022-02-21 10:32 | XMS_ITS | Encounter Summary ---
:1935 Author Organization [facility] Address [address] [place] [address] Care Team Providers Name Role Phone Unavailable Primary Care Provider Unavailable Encounter Details Date Type Department Care Team Description 03/03/2004 PN Conversion Only [place] [address] [address] [place] [address] Social History Tobacco Use Types Packs/Day Years Used Date Smoking Tobacco: Never Assessed Sex Assigned at Date Recorded Not on file documented as of this encounter Plan of Treatment Not on filedocumented as of this encounter Visit Diagnoses Not on filedocumented in this encounter
--- OUTSIDE RECORDS SUMMARY | 2022-02-21 10:32 | XMS_ITS | Encounter Summary ---
:1935 Author Organization [facility] Address [address] [place] [address] Care Team Providers Name Role Phone Unavailable Primary Care Provider Unavailable Encounter Details Date Type Department Care Team Description 03/03/2004 Nursing Visit [facility] Jessica Alaniz MD [address] [place] [address] [phone] Social History Tobacco Use Types Packs/Day Years Used Date Smoking Tobacco: Never Assessed Sex Assigned at Date Recorded Not on file documented as of this encounter Plan of Treatment Not on filedocumented as of this encounter Visit Diagnoses Not on filedocumented in this encounter
--- OUTSIDE RECORDS SUMMARY | 2022-02-21 10:32 | XMS_ITS | Encounter Summary ---
:1935 Author Organization [employer] Address [address] [place] [address] Care Team Providers Name Role Phone Unavailable Primary Care Provider Unavailable Encounter Details Date Type Department Care Team Description 08/20/2005 PN Conversion Only [facility] [address] [place] [address] Social History Tobacco Use Types Packs/Day Years Used Date Smoking Tobacco: Never Assessed Sex Assigned at Date Recorded Not on file documented as of this encounter Plan of Treatment Not on filedocumented as of this encounter Procedures Procedure Name Priority Date/Time Associated Diagnosis Comme nts MM MAMMOGRAM DIAG Routine 08/20/2005 11:37 AM Res ults for this BILAT CDT procedure are i n the results section. documented in this encounter Results MM Mammogram Diag Bilat (08/20/2005 11:37 AM CDT) Anatomical Region Laterality Modality Breast Bilateral Mammography Specimen (Source) Anatomical Location Collection Method / Collectio n Time Received Time / Laterality Volume Narrative 08/21/2005 2:45 PM CDT History: ??The patient is approximately 1 year post benign breast biopsy of an area of density in the ante rior right breast slightly lateral to the areola. ??There is a meta l marker at the site of the biopsy. ??There are no suspicious masses or calcifications. ??The breast tissue is composed predominantly of fatty tissue. ??There is no evidence of malignancy. ACR-BIRADS CATEGORY 2: ??Benign findings . [facility]/ [address] Dictating ALYCIA LEON RADIOLOGIST Procedure Note Alycia Morgan - 07/19/2016Formattin g of this note might be different from the original. History: The patient is approximately 1 year post benign breast biopsy of an area of density in the ante rior right breast slightly lateral to the areola. There is a metal marker at the site of the biopsy. There are no suspicious masses o r calcifications. The breast tissue is composed predominantly of fatty tissue. There is no evidence of malignancy. ACR-BIRADS CATEGORY 2: Benign findings. [facility]/ [address] Dictating ALYCIA LEON RADIOLOGIST Alicia Nice MD RAD [place] documented in this encounter Visit Diagnoses Not on filedocumented in this encounter
--- OUTSIDE RECORDS SUMMARY | 2022-02-21 10:32 | XMS_ITS | Encounter Summary ---
:1935 Author Organization [place] Address [facility] [place] [address] Care Team Providers Name Role Phone Allyson Pool Primary Care Provider Guillermo Martinez MD Unavailable Encounter Details Date Type Department Care Team Description 07/17/2017 Records - [facility] VISUAL PRESENTATION MANAGER Laboratory GERIATRIC SERVICES [address] [place] [phone] [place] [address] [place], [place] [id number] (Wo rk) Social History Tobacco Use Types Packs/Day Years Used Date Smoking Tobacco: Never Alcohol Use Standard Drinks/Week Comments Yes 0 (1 standard drink = 0.6 oz pure alcoho l) couple per week Sex Assigned at Date Recorded Not on file documented as of this encounter Plan of Treatment Not on filedocumented as of this encounter Procedures Procedure Name Priority Date/Time Associated Diagnosis Comme nts CBC WITH PLATELETS Routine 07/18/2017 7:50 AM Res ults for this IMMIGRATION INSPECTOR procedure are i n the results section. documented in this encounter Results (ABNORMAL) CBC with platelets (07/18/2017 7:50 AM IMMIGRATION INSPECTOR) [facility] Method Time Signature WBC 7.1 4.0 - 11.0 07/18/2017 [facility] thou/uL 10:58 AM [facility] RBC Count 4.77 3.80 - 07/18/2017 [facility] 5.40 10:58 AM IMMIGRATION INSPECTOR [facility]/uL [facility] Hemoglobin 14.2 12.0 - 07/18/2017 [facility] 16.0 g/dL 10:58 AM [facility] Hematocrit 44.5 35.0 - 07/18/2017 [facility] 47.0 % 10:58 AM [facility] MCV 93 80 - 100 07/18/2017 [facility] fL 10:58 AM [facility] MCH 29.8 27.0 - 07/18/2017 [facility] 34.0 pg 10:58 AM [facility] MCHC 31.9 (L) 32.0 - 07/18/2017 [facility] 36.0 g/dL 10:58 AM [facility] RDW 13.3 11.0 - 07/18/2017 [facility] 14.5 % 10:58 AM [facility] Platelet Count 214 140 - 440 07/18/2017 [facility] thou/uL 10:58 AM [facility] Mean Platelet 10.3 8.5 - 12.5 07/18/2017 [facility] Volume fL 10:58 AM [facility] Specimen Anatomical Collection Method / Collection Time Recei miladis Time (Source) Location / Volume Laterality Blood specimen STRUCTURE OF RIGHT Venipuncture / 07/18/2017 7:50 (specimen) UPPER LIMB / Unknown AM IMMIGRATION INSPECTOR 10:44 AM IMMIGRATION INSPECTOR Unknown Noemi Ferris NP LAB - BLOOD ORDERABLES Performing Organization Address City/State/ZIP Code Phon e Number [place] [address] [address] [facility] documented in this encounter Visit Diagnoses Not on filedocumented in this encounter Care Teams Cafe Operator Relationship Specialty Start Date End Date Allyson Pool PA PCP - General 04/27/17 [facility] [address] [place] [address] Guillermo Martinez MD MD Cardiology 11/15/[address] [place] [phone] documented as of this encounter
--- OUTSIDE RECORDS SUMMARY | 2022-02-21 10:32 | XMS_ITS | Encounter Summary ---
:1935 Author Organization [employer] Address [address] [place] [address] Care Team Providers Name Role Phone Allyson Pool PA-C Primary Care Provider Reason for Visit Reason Onset Date Comments PRESCRIPTION, NOS 10/31/2016 Encounter Details Date Type Department Care Team Description 10/31/2016 Telephone [facility] Allyson Pool PA-C PRESCRIPTION, NOS [facility] [address] [facility] [address] [place] [address] [phone] Social History Tobacco Use Types Packs/Day Years Used Date Smoking Tobacco: Never Smokeless Tobacco: Never Alcohol Use Standard Drinks/Week Comments Yes 0 (1 standard drink = 0.6 oz pure alcoho l) rare occasions Sex Assigned at Date Recorded Not on file documented as of this encounter Nursing Notes Estrella Vann LPN - 10/31/2016 8:52 AM CDT I called and left for pt letting her know that we are going to have her continue taking brand name Crestor instead of switching to a generic version. I said that we confirmed she pays $35.00 a monthand if this is not cost affective for them to please call the clinic back at [phone]. If pt does call back and you look at this telephone encounter please try to transfer call to [phone] to talk toChristine. Thanks documented in this encounter Plan of Treatment Not on filedocumented as of this encounter Visit Diagnoses Not on filedocumented in this encounter Care Teams Emergency Dispatch Operator Relationship Specialty Start Date End Date Allyson Pool PA-C PCP - General Physician Senior Technical Program Manager 09/26/16 02/28/21 [address] [place] [id number] documented as of this encounter
--- OUTSIDE RECORDS SUMMARY | 2022-02-21 10:32 | XMS_ITS | Encounter Summary ---
:1935 Author Organization [facility] Address [address] [place] [address] Care Team Providers Name Role Phone Unavailable Primary Care Provider Unavailable Encounter Details Date Type Department Care Team Description 10/12/2011 [facility] [place] [place] [address] [place] [address] Social History Tobacco Use Types Packs/Day Years Used Date Smoking Tobacco: Never Assessed Sex Assigned at Date Recorded Not on file documented as of this encounter Plan of Treatment Not on filedocumented as of this encounter Visit Diagnoses Not on filedocumented in this encounter
--- OUTSIDE RECORDS SUMMARY | 2022-02-21 10:32 | XMS_ITS | Encounter Summary ---
:1935 Author Organization [facility] Address [address] [place] [address] Care Team Providers Name Role Phone Unavailable Primary Care Provider Unavailable Encounter Details Date Type Department Care Team Description 09/13/2010 PN Conversion Only [facility] [address] [address] [place] [address] Social History Tobacco Use Types Packs/Day Years Used Date Smoking Tobacco: Never Assessed Sex Assigned at Date Recorded Not on file documented as of this encounter Plan of Treatment Not on filedocumented as of this encounter Visit Diagnoses Not on filedocumented in this encounter
--- OUTSIDE RECORDS SUMMARY | 2022-02-21 10:32 | XMS_ITS | Encounter Summary ---
:1935 Author Organization [facility] Address [address] [place] [address] Care Team Providers Name Role Phone Unavailable Primary Care Provider Unavailable Encounter Details Date Type Department Care Team Description 09/13/2010 PN Conversion Only [facility] [address] [address] [place] [address] Social History Tobacco Use Types Packs/Day Years Used Date Smoking Tobacco: Never Assessed Sex Assigned at Date Recorded Not on file documented as of this encounter Plan of Treatment Not on filedocumented as of this encounter Procedures Procedure Name Priority Date/Time Associated Diagnosis Comme nts MM MAMMOGRAM Routine 09/13/2010 8:31 AM Results f or this SCREENING BILAT W CDT procedure are in CAD the results section. documented in this encounter Results MM Mammogram Screening Bilat W CAD (09/13/2010 8:31 AM CDT) Anatomical Region Laterality Modality Breast Bilateral Mammography Specimen (Source) Anatomical Location Collection Method / Collectio n Time Received Time / Laterality Volume Narrative 09/13/2010 11:14 AM CDT Comparison is made to films from 09/06/2009 (bilateral) and films from 01/26/2008 (bilateral). There is no significant interval change. Right Breast Findings: The breast is almost entirely fat (less than or equal to 10% fibroglandular). The patient has a marke r from previous needle biopsy. No significant masses, calcifica tions or other abnormalities are seen. Left Breast Findings: The breast is almost entirely fat (less than or equal to 10% fibroglandular). No significant masses, calcifications or other abnormalities are seen. IMPRESSION: RIGHT BREAST: Benign, no evidence of mal ignancy. Normal interval follow-up is recommended in 12 months. LEFT BREAST: Negative, no evidence of ma lignancy. Normal interval follow-up is recommended in 12 months. OVERALL ASSESSMENT - CATEGORY 2 - BENIGN END OF IMPRESSION Dictating ROSA M CURRIE RADIOLOGIST Procedure Note Rosa M Sheth MD - 01/03/2016Formatt ing of this note might be different from the original. Comparison is made to films from 010 (bilateral) and films from 01/26/2008 (bilateral). There is no significant interval change. Right Breast Findings: The breast is almost entirely fat (less than or equal to 10% fibroglandular). The patient has a marke r from previous needle biopsy. No significant masses, calcifica tions or other abnormalities are seen. Left Breast Findings: The breast is almost entirely fat (less than or equal to 10% fibroglandular). No significant masses, calcifications or other abnormalities are seen. IMPRESSION: RIGHT BREAST: Benign, no evidence of mal ignancy. Normal interval follow-up is recommended in 12 months. LEFT BREAST: Negative, no evidence of ma lignancy. Normal interval follow-up is recommended in 12 months. OVERALL ASSESSMENT - CATEGORY 2 - BENIGN END OF IMPRESSION BJ Dictating ROSA M CURRIE RADIOLOGIST Alicia Nice MD RAD [facility] documented in this encounter Visit Diagnoses Not on filedocumented in this encounter
--- OUTSIDE RECORDS SUMMARY | 2022-02-21 10:32 | XMS_ITS | Encounter Summary ---
:1935 Author Organization [facility] Address [address] [place] [address] Care Team Providers Name Role Phone Allyson Pool PA-C Primary Care Provider Reason for Visit Reason Comments HYPERTENSION blood pressure check Encounter Details Date Type Department Care Team Description 09/29/2016 Office Visit [facility] Allyson Pool PA-C Anxiety (Primary Dx); Medicine [address] Memory deficit [address] [place] [address] [phone] (Wo rk) Social History Tobacco Use Types Packs/Day Years Used Date Smoking Tobacco: Never Smokeless Tobacco: Never Alcohol Use Standard Drinks/Week Comments Yes 0 (1 standard drink = 0.6 oz pure alcoho l) rare occasions Sex Assigned at Date Recorded Not on file documented as of this encounter Last Filed Vital Signs Vital Sign Reading Time Taken Comments Blood Pressure 118/74 09/29/2016 8:46 AM CDT Pulse 72 09/29/2016 8:46 AM CDT Temperature - - Respiratory Rate - - Oxygen Saturation - - Inhaled Oxygen Concentration - - Weight 95.2 kg (209 lb 12.8 oz) 09/29/2016 8:46 AM CDT Height - - Body Mass Index - - documented in this encounter Patient Instructions Patient InstructionsAllyson Pool PA-C - 09/29/2016 8:40 AM CDT Increase paroxetine to 10 mg daily Follow up in a month to recheck your anxiety and memory symptoms Follow up with your mohel as planned documented in this encounter Progress Notes Allyson Pool PA-C - 09/29/2016 8:40 AM CDT Internal Medicine [facility] - Allyson Pool PA-C Fidelia Vyas 80 y.o. Female : 1935 PN Date of Service: 09/29/2016 Chief Complaint: blood pressure check, memory concern and anxiety Hospital Sales Representative Present: no HPI: Fidelia Vyas is a 80 y.o. female who presents with her daughter for the below concerns. Patient is new to our system. 1.) Blood pressure check. Patient takes amlodipine 2.5 mg daily, [id number] mg twice daily, triamterene-hydrochlorothiazide 37.5-25 mg daily. Patient has known cardiac history. She had a myocardial infarction ??2. Patient has not had a stent. She sees a mohel at [facility]. She has an appointment with them coming up in the next couple weeks. No chest pain or shortness of breath. 2.) Memory concern. Noted by her family for about the past 6 months. Primarily with short term memory. She has to ask questions several times. No known family history of dementia. She lives with her in their home. She has no difficulties with ADLs. Mini mental status exam 30/30. Patient does feel her symptoms get worse with stress and anxiety. She is taking paroxetine 5 mg daily. Was prescribed 10 mg daily but felt her emotions were blunted so reduced the dose to 5 mg. PHQ9=7, GAD7=7. 3.) anxiety. Patient takes paroxetine 5 mg daily. She lives with her . Her has a milddrinking problem which does add to her stress. Past Medical History: CAD, DC, aortic valve sclerosis Social History: non-smoker Allergies: Review of patient's allergies indicates no known allergies. Medications: Medications reviewed and updated in [employer]. Review of Systems: Complete review of systems assessed. Pertinent review of systems negative except for what is noted in the HPI. All others systems negative. Physical Exam: BP 118/74 Pulse 72 Wt 95.2 kg (209 lb 12.8 oz) Constitutional: Well developed, Well nourished, No acute [...] or rebound. No masses or organomegaly appreciated. Lymph: No concerning anterior or posterior cervical or supraclavicular adenopathy Neuro: CN II-XII intact. Gait normal. Strength 5/5 in all four extremities. CMS intact. Normal muscle tone, no spasticity. Normal patellar reflexes. Negative romberg, no pronator drift. Normal proprioception. Psychiatric: Mood and affect appropriate to the situation. Skin: Normal coloration and temperature without significant rash. Assessment and Plan: 1.) Blood pressure check - normotensive - continue current regimen - patient has follow up with her mohel in the next couple of weeks at [facility]. 2.) Memory concern - normal MMSE (30/30) - this may be related to depression and anxiety - increase her paroxetine back to 10 mg daily - recheck memory in a month - if no change referral to neuropsych testing 3.) Anxiety and depression - increase paroxetine to 10 mg daily - consider referral to psychology given problems at home with drinking - Patient advised to follow up if symptoms do not improve, sooner if there are new or worsening symptoms. Allyson Pool PA-C 11:19 AM 09/29/2016 No diagnosis found. documented in this encounter Plan of Treatment Not on filedocumented as of this encounter Visit Diagnoses Diagnosis Anxiety (HRC) - Primary Anxiety state, unspecified Memory deficit Memory loss documented in this encounter Care Teams Transportation Inspector Relationship Specialty Start Date End Date Allyson Pool PA-C PCP - General Physician Chick Grader 09/26/16 02/28/21 [id number] [place] [id number] documented as of this encounter
--- OUTSIDE RECORDS SUMMARY | 2022-02-21 10:32 | XMS_ITS | Encounter Summary ---
:1935 Author Organization [facility] Address [facility] hospital[facility] [place] [address] Care Team Providers Name Role Phone Allyson Pool Primary Care Provider Guillermo Kline MD Unavailable Reason for Referral - Closed Specialty Diagnoses / Procedures Referred By Contact Refer red To Contact Diagnoses Coronary artery disease involving [place] coronary artery of [place] heart without angina pectoris Guillermo Kline MD [address] [place] [address] Referral ID Status Reason Start Date Expiration Date Visits Requ ested Visits Authorized [id number] Closed 11/21/2019 11/20/2020 1 1 Reason for Visit Reason Comments Annual Visit Hyperlipidemia, HTN, and CAD . Hx of two TX's - Closed Specialty Diagnoses / Procedures Referred By Contact Refer red To Contact Diagnoses Benign essential hypertension Coronary artery disease involving [place] coronary artery of [place] heart without angina pectoris Guillermo Kline MD [address] [place] [address] Referral ID Status Reason Start Date Expiration Date Visits Requ ested Visits Authorized [id number] Closed 10/16/2017 10/16/2018 1 1 Encounter Details Date Type Department Care Team Description 11/21/2017 Office Visit Guillermo Arriaza Benign esse ntial hypertension; [place] Regino Fink MD Coronary artery disease involving [place] coronary artery of [place] heart without angina pectoris; [facility] susy [address] Mixed hyperlipidemia [address] [facility] [address] [place] [phone] Social History Tobacco Use Types Packs/Day Years Used Date Smoking Tobacco: Never Smokeless Tobacco: Never Alcohol Use Standard Drinks/Week Comments Yes 0 (1 standard drink = 0.6 oz pure alcoho l) couple per week Sex Assigned at Date Recorded Not on file documented as of this encounter Last Filed Vital Signs Vital Sign Reading Time Taken Comments Blood Pressure 140/70 11/21/2017 10:17 AM CDT Pulse 64 11/21/2017 10:17 AM CDT Temperature - - Respiratory Rate - - Oxygen Saturation - - Inhaled Oxygen Concentration - - Weight 93.3 kg (205 lb 9.6 oz) 11/21/2017 10:17 AM CDT Height 163.8 cm (5' 4.5) 11/21/2017 10:17 AM CDT Body Mass Index 34.75 11/21/2017 10:17 AM CDT documented in this encounter Progress Notes Guillermo Kline MD - 11/21/2017 10:50 AM CDT Service Date: 11/21/2017 PRIMARY CARE PHYSICIAN: ANGELINA Zhang HISTORY OF PRESENT ILLNESS: I had the pleasure of following up on our mutual patient, Fidelia Lundberg.She is a delightful 81-year-old woman accompanied by her . From a cardiac standpoint, she hada heart attack in retrospect probably 40 years ago, well before we met her. We met her 15 years ago when she had another acute coronary syndrome. Her left circumflex was totally occluded and that was the old heart attack. Her LAD had angioplasty but not stenting. In 2008, she had a nuclear stress testthat ended up being false positive. We did a heart catheterization and it showed that except for thetotally occluded vessel, none of the other arteries were severely narrowed. We did note that the stent was not placed in the LAD because the vessel was tortuous, but with newer technology, we could stent if necessary, but the patient reports absolutely no anginal symptoms. The patient was supposed to have had a followup CT coronary angiogram in the past year. It never got done. It is not totally clear to me why, but given that she is having no anginal symptoms and her heart has been quiescent for the last 15 years, I am happy with just following it and she agrees. 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 She has cervical disk disease and underwent a cervical fusion this past year. She is with a left arm neuropathy and tremor, although I wonder if it is more of a central problem because she has a little bit of tremor in her right arm and also a head shake. She reports that she was not told that this is Parkinson's. Her blood pressure in our office was 140, but at home she reports in the 120s. At one point she had been on a diuretic; it was discontinued in the hospital. She does have mild ankle edema and she states it is not bothersome for her. But I told her should she develop worsening blood pressure or worsening edema, a diuretic would probably be ideal for her. Given that her electrolytes and lipids were reviewed today and they are all fine and I have not made any changes, I think I will ask if you would kindly be willing to see her next year for her blood pressure and her cholesterol and prescribe those drugs, if that is alright with you. I would see her in 2 years for a regular office visit just to see how she is doing. The family was all for this and I hope you will agree. If you want me to see her before that, I would be happy to do so. I have known Mrs. Lundberg for 15 years and it has always been a pleasure taking care of her. Today's visit was 30 minutes. She reports no cardiovascular complaints. We went through her old lab tests. We quickly reviewed her recent spine surgery and I have made no changes. We will see her back in 2 years. Guillermo Kline MD Total consult time 30 minutes, greater than 50% counseling. cc: ANGELINA Zhang [address] [address] GUILLERMO KLINE MD JERICA: janice Name: FIDELIA LUNDBERG Account: [id number] : 1935 Service Date: 11/21/2017 Document: [id number] Guillermo Kline MD - 11/21/2017 10:00 AM CDT HPI and Plan: See dictation Orders Placed This Encounter Procedures ??? 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 labetalol (NORMODYNE) 100 MG tablet Sig: Take 1 tablet (100 mg) by mouth 2 times daily CORRECT SIMG (1/2 TAB) IN AM AND 100MG (1 TAB) IN PM Dispense: 150 tablet Refill: 3 ??? nitroGLYcerin (NITROSTAT) 0.4 MG sublingual tablet Sig: Place 1 tablet (0.4 mg) under the tongue every 5 minutes as needed for chest pain Dispense: 25 tablet Refill: 1 ??? amLODIPine (NORVASC) 2.5 MG tablet Sig: Take 1 tablet (2.5 mg) by mouth every evening Dispense: 90 tablet Refill: 3 ??? rosuvastatin (CRESTOR) 40 MG tablet Sig: Take 1 tablet (40 mg) by mouth daily Dispense: 90 tablet Refill: 3 Medications Discontinued During This Encounter Medication Reason ??? LABETALOL HCL PO Reorder ??? nitroglycerin (NITROSTAT) 0.4 MG SL tablet Reorder ??? AMLODIPINE BESYLATE PO Reorder ??? rosuvastatin (CRESTOR) 40 MG tablet Reorder Encounter Diagnoses Name Primary? Benign essential hypertension ??? Coronary artery disease involving [place] coronary artery of [place] heart without angina pectoris ??? Mixed hyperlipidemia CURRENT MEDICATIONS: Current Outpatient Prescriptions Medication Sig Dispense Refill ??? amLODIPine (NORVASC) 2.5 MG tablet Take 1 tablet (2.5 mg) by mouth every evening 90 tablet 3 ??? aspirin 81 MG tablet Take 1 tablet (81 mg) by mouth daily 30 tablet 0 ??? DONEPEZIL HCL PO Take 10 mg by mouth daily ??? labetalol (NORMODYNE) 100 MG tablet Take 1 tablet (100 mg) by mouth 2 times daily CORRECT SIMG (1/2 TAB) IN AM AND 100MG (1 TAB) IN PM 150 tablet 3 ??? LABETALOL HCL PO Take 100 mg by mouth At Bedtime ??? nitroGLYcerin (NITROSTAT) 0.[address] 1 tablet (0.4 mg) under the tongue every 5 minutes as needed for chest pain 25 tablet 1 ??? order for DME Equipment being ordered: Walker Wheels ([id number]) and Walker ([id number]) Treatment Diagnosis: Impaired gait stability. 1 each 0 ??? PARoxetine (PAXIL) 10 MG tablet 10 mg ??? rosuvastatin (CRESTOR) 40 MG tablet Take 1 tablet (40 mg) by mouth daily 90 tablet 3 ??? VITAMIN D, CHOLECALCIFEROL, PO Take 1,000 Units by mouth daily ??? [DISCONTINUED] AMLODIPINE BESYLATE PO Take 2.5 mg by mouth every evening ??? [DISCONTINUED] LABETALOL HCL PO Take 50 mg by mouth daily ??? [DISCONTINUED] nitroglycerin (NITROSTAT) 0.[address] 1 tablet (0.4 mg) under the tongue every 5 minutes as needed for chest pain 25 tablet 1 ??? [DISCONTINUED] rosuvastatin (CRESTOR) 40 MG tablet Take 1 tablet (40 mg) by mouth daily 90 tablet 3 ALLERGIES Allergies Allergen Reactions ??? Atorvastatin Muscle aches ??? Morphine Sulfate [Morphine] Nausea and Vomiting PAST MEDICAL HISTORY: Past Medical History: Diagnosis Date ??? Arrhythmia Pac, Pat ??? CAD (coronary artery disease) 1981 unrecognized Lcx [place], 2003 AWMI with VF: Lcx 100% chronic, LAD-POBA (couldn't get a stent down Ca Lad, but f/u cath Lad 60%-likely could rotastent if needed) RCA 50% ??? Cardiac arrest (H) 64 years old ??? Dementia ??? GERD (gastroesophageal reflux disease) ??? H/O benign breast biopsy ??? History of cellulitis ??? History of cervical discectomy 2017 with L arm neuropathy had cervicle fusion ??? History of varicose veins ??? Hyperlipidemia ??? Hypertension ??? Lung nodule followed by pmd ??? Myocardial infarction 44 years old ??? NONSPECIFIC MEDICAL HISTORY false + nuc gxt ??? Obesity PAST SURGICAL HISTORY: Past Surgical History: Procedure Laterality Date ??? APPENDECTOMY ??? C TOTAL ABDOM HYSTERECTOMY ??? cervicle disk 2017 cervicle disk fusion with L arm neuropathy ??? CHOLECYSTECTOMY ??? CORONARY ANGIOGRAPHY ADULT ORDER 11-09-02 PTCR/LAD ??? CORONARY ANGIOGRAPHY ADULT ORDER 11-16-02 No restenosis of LAD, chronic occluded OM1, 3 vessel disease ??? CORONARY ANGIOGRAPHY ADULT ORDER 10-24-05 3 vessel disease, ICD not indicated, continue med mgt. ??? CORONARY ANGIOGRAPHY ADULT ORDER 12-02-08 CAD, occluded OM1, no culprit lesions, no new ischemia, continue med mgt. ??? STRIP VEIN ??? TONSILLECTOMY FAMILY HISTORY: Family History Problem Relation Age of Onset ??? Heart Failure Father 66 ??? Other - See Comments Mother 63 Arterial stenosis ??? C.A.D. Son w/ V fib arrest SOCIAL HISTORY: Social History Social History ??? Marital status: Spouse name: N/A ??? Number of children: N/A ??? Years of education: N/A Social History Main Topics ??? Smoking status: Never Smoker ??? Smokeless tobacco: Never Used ??? Alcohol use 0.0 oz/week 0 Standard drinks or equivalent per week Comment: couple per week ??? Drug use: No ??? Sexual activity: Not Asked Other Topics Concern ??? Caffeine Concern No 4-6 cups daily of half and half ??? Sleep Concern No ??? Stress Concern No ??? Weight Concern No ??? Special Diet Yes watching fat intake ??? Exercise Yes walking when shopping ??? Seat Belt Yes Social History Narrative Review of Systems: Skin: Negative Eyes: Positive for glasses ENT: Negative Respiratory: Negative Cardiovascular: Negative Gastroenterology: Positive for vomiting Genitourinary: Negative Musculoskeletal: Negative Neurologic: Negative Psychiatric: Negative Heme/Lymph/Imm: Negative Endocrine: Negative Physical Exam: Vitals: BP 140/70 (BP Location: Right arm, Patient Position: Sitting, Cuff Size: Adult Large) Pulse 64 Ht 1.638 m (5' 4.5) Wt 93.3 kg (205 lb 9.6 oz) ? No BMI 34.75 kg/m2 Constitutional: Skin: Head: Eyes: Lymph: ENT: Neck: Respiratory: Cardiac: GI: Extremities and Muscular Skeletal: Neurological: Psych: Recent Lab Results: LIPID RESULTS: Lab Results Component Value Date CHOL 140 11/21/2017 HDL 62 11/21/2017 LDL 62 11/21/2017 TRIG 79 11/21/2017 CHOLHDLRATIO 2.4 09/21/2014 LIVER ENZYME RESULTS: Lab Results Component Value Date AST 16 01/15/2014 ALT 15 11/21/2017 CBC RESULTS: Lab Results Component Value Date WBC 8.5 05/02/2017 RBC 4.38 05/02/2017 HGB 13.3 05/02/2017 HCT 40.0 05/02/2017 MCV 91 05/02/2017 MCH 30.4 05/02/2017 MCHC 33.3 05/02/2017 RDW 13.7 05/02/2017 PLT 143 (L) 05/02/2017 BMP RESULTS: Lab Results Component Value Date NA 144 11/21/2017 POTASSIUM 3.6 11/21/2017 CHLORIDE 110 (H) 11/21/2017 CO2 27 11/21/2017 ANIONGAP 7 11/21/2017 GLC 92 11/21/2017 BUN 8 11/21/2017 CR 0.70 11/21/2017 GFRESTIMATED 81 11/21/2017 GFRESTBLACK >90 11/21/2017 RANDA 8.4 (L) 11/21/2017 A1C RESULTS: No results found for: A1C INR RESULTS: Lab Results Component Value Date INR 0.99 05/02/2017 INR 1.00 12/02/2008 CC Guillermo Kline MD [address] [place] [phone] documented in this encounter Plan of Treatment Scheduled Referrals Name Type Priority Associated Diagnoses Order S chedule Follow-Up with Referral Routine Coronary artery Expected: 11/21/2019 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 [address] [address] [place] [address] Guillermo Kline MD MD Cardiology 11/15/[address] [place] [phone] documented as of this encounter
--- OUTSIDE RECORDS SUMMARY | 2022-02-21 10:32 | XMS_ITS | Encounter Summary ---
:1935 Author Organization [employer] Address [address] [place] [address] Care Team Providers Name Role Phone Allyson Pool PA-C Primary Care Provider Reason for Visit Reason Comments Follow-up memory concerns and anxiety Encounter Details Date Type Department Care Team Description 11/01/2016 Office Visit [facility] Allyson Pool PA-C Hand numbness (Primary Dx); Medicine [address] Hypocalcemia; [address] [place], [place] Memory changes; [place] [address] Anxiety; [phone] (Wo rk) Stress Social History Tobacco Use Types Packs/Day Years Used Date Smoking Tobacco: Never Smokeless Tobacco: Never Alcohol Use Standard Drinks/Week Comments Yes 0 (1 standard drink = 0.6 oz pure alcoho l) rare occasions Sex Assigned at Date Recorded Not on file documented as of this encounter Last Filed Vital Signs Vital Sign Reading Time Taken Comments Blood Pressure 110/70 11/01/2016 8:02 AM CDT Pulse 60 11/01/2016 8:02 AM CDT Temperature 36.9 ??C (98.5 ??F) 11/01/2016 8:02 AM CDT Respiratory Rate - - Oxygen Saturation - - Inhaled Oxygen Concentration - - Weight 95.6 kg (210 lb 12.8 oz) 11/01/2016 8:02 AM CDT Height - - Body Mass Index - - documented in this encounter Patient Instructions Patient InstructionsAllyson Pool PA-C - 11/01/2016 7:50 AM CDT Increase paxil to 10 mg daily Follow up in 1 month with Allyson Pool in clinic to see how memory is doing documented in this encounter Progress Notes Allyson Pool PA-C - 11/01/2016 7:50 AM CDT Internal Medicine [facility] - Allyson Pool PA-C Fidelia Vyas 80 y.o. Female : 1935 PN Date of Service: 11/01/2016 Chief Complaint: Follow up memory concerns, anxiety and stress, tingling in fingers Optical Effects Line Up Person Present: no HPI: Fidelia Vyas is a 80 y.o. female who presents with her daughter Onel for follow-up regardinganxiety, stress and memory issues 1.) Memory concerns. Please see my last note for complete details. In short, patient's daughter Isha patient report some issues during conversations of repeating herself for asking several times for things that have already been said. Once or twice she forgot to send in a bill. She scored 30/30 onthe Mini- Mental Status exam last time. She was having increased stress and anxiety so we decided to increase her Paxil from 5 mg back up to 10 mg. Unfortunately,Fidelia is not sure if she did this. During her visit today I do see what they are talking about. She does repeat herself a couple times on a few things. She still is able to take care of herself. She has no risk with driving. Has never gotten lost. She does notice that when she has increased stress her symptoms are worse. Her has been getting on her about her memory which does not help the situation. There is also some alcohol issues with her . He was a tow truck operator so was not home growing up but more recently since being retired he is home more. She is trying to have him do more stuff around the house. 2.) Tingling in the fingertips bilaterally for a couple weeks. Including all 10 fingers. No feet symptoms. She has normal sensation but they feel a little tingly. She has been gardening some but does not feel this is been overuse. She has no neck pain. No numbness in the arms. She has no loss of strength. She has no headaches or dizziness. There is the above cognitive concerns. She has no symptoms inher feet. She is not diabetic. After review of [place] records she does have a mild persistent hypocalcemia that has been stable for a couple years. She denies tick bites or recent flu-like illness. She is currently being treated for a UTI with macrobid. No chest pain or SOB. No abdominal pain or bloo dy stool. Past Medical History: CAD, anxiety, depression, HLD, OR Social History: non-smoker lives with her Allergies: Atorvastatin and Morphine Medications: Medications reviewed and updated in [employer]. Review of Systems: Complete review of systems assessed. Pertinent review of systems negative except for what is noted in the HPI. All others systems negative. Physical Exam: BP 110/70 Pulse 60 Temp 36.9 ??C (98.5 ??F) (Oral) Wt 95.6 kg (210 lb 12.8 oz) Constitutional: Well developed, Well nourished, No acute distress, Non-toxic appearance. Neck: full ROM. No increased finger sx with ROM of neck or hands above the head Hands/fingers: negative tinnel Phalen. Normal temperature and color to hands. Normal radial pulse. Normal cap refill. Sensation intact to slight touch. Intact car dropper strength and 5/5 strength in the arms. Feet: normal pedal pulse and sensation Assessment and Plan: 1.) Memory concern - shot term plan is to increase her paxil to 10 mg and recheck her memory sx in a month - I will likely send her for formal neuropsych testing if sx still present - MMSE last visit - she does infact repeat herself during our visit though 2.) Anxiety - increase paxil to 10 mg daily - PHQ9=1, GAD7=7 3.) Tingling in finger tips - review of [facility] shows persistently mildly low calcium - will check CBC, BMP, LFT, mag, phos, PTH, SPEP, B12, TSH, vit D - Patient advised to follow up if symptoms do not improve, sooner if there are new or worsening symptoms. Allyson Pool PA-C 9:00 AM 11/01/2016 ICD-10-CM 1. Hand numbness R20.0 2. Hypocalcemia E83.51 Complete Blood Count W/Diff Basic Metabolic Panel Magnesium TSH with Free T4 (if TSH Abnormal) Vitamin B-12 Intact PTH Phosphorus Vitamin D 25-Hydroxy, Total Protein ELP (Serum) Liver Panel(Hepatic Function Panel) 3. Memory changes R41.3 4. Anxiety (HRC) F41.9 5. Stress (HRC) F43.9 documented in this encounter Plan of Treatment Not on filedocumented as of this encounter Results Liver Panel(Hepatic Function Panel) (11/01/2016 9:04 AM CDT) [facility] gist Method Time Signature Alk Phos 46 40 - 150 PN SOFT U/L Bilirubin Total 1.1 0.2 - 1.2 PN SOFT mg/dL Bilirubin, Direct 0.5 0.0 - 0.5 PN SOFT mg/dL Protein Total, Serum 7.5 6.4 - 8.3 PN SOFT g/dL Albumin 3.8 3.4 - 5.0 PN SOFT g/dL Aspartate 23 10 - 40 PN SOFT Aminotransferase U/L Alanine 14 9 - 55 PN SOFT Aminotransferase U/L Specimen Anatomical Collection Method Collection Time Receive d Time (Source) Location / / Volume Laterality 11/01/2016 9:04 AM 7 9:04 CDT AM CDT Narrative PN SOFT - 11/01/2016 10:00 AM CDT Performed at [facility], [address] [place] [address] CLIA number [id number] Allyson Pool PA-C LAB_1 Performing Organization Address City/State/ZIP Code Phon e Number PN SOFT [address] [place], [place] [address] [phone] (ABNORMAL) Protein ELP (Serum) (11/01/2016 9:04 AM CDT) athologist Signature Total Protein 7.3 6.4 - 8.3 PN SOFT g/dl Comment: Performed at [facility], [address] [place] [address] ??[id number] Albumin 4.1 3.4 - 4.8 g/dl PN SOFT Alpha 1 0.3 0.2 - 0.5 g/dl PN SOFT Alpha 2 0.8 0.5 - 1.1 g/dl PN SOFT Beta 0.8 0.6 - 1.1 g/dl PN SOFT Gamma 1.4 0.7 - 1.6 g/dl PN SOFT Monoclonal Joaquin 0.5 (H) 0.0 g/dl PN SOFT Comment: IgG [place] Interpretation SEE BELOW PN SOFT Comment: A monoclonal protein has been detected b y serum protein electrophoresis. Signed out by SEE BELOW PN SOFT Comment: Isaias Peres MD Performed at [facility], [address] [place] [address] ??[address] CLIA Number [id number] Specimen Anatomical Collection Method Collection Time Receive d Time (Source) Location / / Volume Laterality 11/01/2016 9:04 AM 7 CDT 12:28 PM CDT Allyson Pool PA-C LAB_1 Performing Organization Address City/[facility]/[place] Code Phon e Number PN SOFT [address] [place] [address] (ABNORMAL) Vitamin D 25-Hydroxy, Total (11/01/2016 9:04 AM CDT) athologist Signature Vitamin D 25 Oh 11 (L) 20 - 80 PN SOFT ng/mL Comment: Deficiency = <20 Adequate ??= 20-29 Preferred = 30-50 Uncertain safety = 51-80 High = >80 Specimen Anatomical Collection Method Collection Time Receive d Time (Source) Location / / Volume Laterality 11/01/2016 9:04 AM 7 CDT 12:25 PM CDT Narrative PN SOFT - 11/01/2016 1:26 PM CDT Performed at [place] [address] [place] [address] CLIA number [id number] Allyson Pool PA-C LAB_1 Performing Organization Address [facility] Phon e Number PN SOFT [address] [place] [address] Phosphorus (11/01/2016 9:04 AM CDT) P athologist Signature Phosphorus Serum 3.3 2.3 - 4.7 PN SOFT mg/dL Specimen Anatomical Collection Method Collection Time Receive d Time (Source) Location / / Volume Laterality 11/01/2016 9:04 AM 7 9:04 CDT AM CDT Narrative PN SOFT - 11/01/2016 10:00 AM CDT Performed at [facility], [address] [place] [address] CLIA number [id number] Allyson Pool PA-C LAB_1 Performing Organization Address City/[facility]/[place] Code Phon e Number PN SOFT [address] [place] [address] (ABNORMAL) Intact PTH (11/01/2016 9:04 AM CDT) athologist Signature PTH 116 (H) 10 - 100 PN SOFT pg/mL Specimen Anatomical Collection Method Collection Time Receive d Time (Source) Location / / Volume Laterality 11/01/2016 9:04 AM 7 6:26 CDT PM CDT Narrative PN SOFT - 11/01/2016 7:35 PM CDT Performed at [address] [address] CLIA number [id number] Allyson Pool PA-C LAB_1 Performing Organization Address [facility] Phon e Number PN SOFT [address] [place] [address] Vitamin B-12 (11/01/2016 9:04 AM CDT) athologist Signature Vitamin B12 288 213 - 816 PN SOFT pg/dL Specimen Anatomical Collection Method Collection Time Receive d Time (Source) Location / / Volume Laterality 11/01/2016 9:04 AM 7 CDT 12:26 PM CDT Narrative PN SOFT - 11/01/2016 1:53 PM CDT Performed at [facility], [address] [place] [address] CLIA number [id number] Allyson Pool PA-C LAB_1 Performing Organization Address City/[facility]/ZIP Code Phon e Number PN SOFT [address] [place] [address] TSH with Free T4 (if TSH Abnormal) (11/01/2016 9:04 AM CDT) athologist Signature Thyroid 1.45 0.30 - PN SOFT Stimulating 4.50 Hormone uIU/mL Specimen Anatomical Collection Method Collection Time Receive d Time (Source) Location / / Volume Laterality 11/01/2016 9:04 AM 7 CDT 12:26 PM CDT Narrative PN SOFT - 11/01/2016 2:33 PM CDT Performed at [place] [address] [place] [address] CLIA number [id number] Allyson Pool PA-C LAB_1 Performing Organization Address [facility] Phon e Number PN SOFT [address] [place] [address] Magnesium (11/01/2016 9:04 AM CDT) athologist Signature Magnesium 2.2 1.6 - 2.6 PN SOFT mg/dL Specimen Anatomical Collection Method Collection Time Receive d Time (Source) Location / / Volume Laterality 11/01/2016 9:04 AM 7 9:04 CDT AM CDT Narrative PN SOFT - 11/01/2016 10:00 AM CDT Performed at [facility], [address] [place] [address] CLIA number [id number] Allyson Pool PA-C LAB_1 Performing Organization Address City/[facility] Phon e Number PN SOFT [address] [place] [address] Basic Metabolic Panel (11/01/2016 9:04 AM CDT) athologist Signature Creatinine Serum 0.80 0.55 - PN SOFT 1.02 mg/dL Lab Glucose 95 70 - 100 PN SOFT mg/dL Comment: The stated glucose range is for the fast ing state. Non-fasting glucose range is 70-180 mg/d L CO2 28 22 - 31 mmol/L PN SOFT Chloride 103 98 - 109 mmol/L PN SOFT Potassium 3.6 3.5 - 5.2 mmol/L PN SOFT Sodium 140 136 - 145 mmol/L PN SOFT Blood Urea Nitrogen 12 9 - 26 mg/dL PN SOFT Calcium [...] Time (Source) Location / / Volume Laterality 11/01/2016 9:04 AM 7 9:04 CDT AM CDT Narrative PN SOFT - 11/01/2016 10:00 AM CDT Performed at [facility], [address] [place] [address] CLIA number [id number] Allyson Pool PA-C LAB_1 Performing Organization Address City/State/ZIP Code Phon e Number PN SOFT [address] [place] [address] [phone] Complete Blood Count W/Diff (11/01/2016 9:04 AM CDT) P athologist Signature White Blood Cell 6.3 3.8 - 11.0 PN SOFT Count k/cmm Red Blood Cell 4.66 3.70 - PN SOFT Count 5.20 m/cmm Hemoglobin 14.0 11.8 - PN SOFT 15.5 g/dL Hematocrit 42.0 35.0 - PN SOFT 46.0 % Mean Corpuscular 90.1 80.0 - PN SOFT Volume 100.0 fL RDW 14.0 11.0 - PN SOFT 15.0 % Platelet Count 148 140 - 450 PN SOFT k/cmm Specimen Anatomical Collection Method Collection Time Receive d Time (Source) Location / / Volume Laterality 11/01/2016 9:04 AM 7 9:04 CDT AM CDT Narrative PN SOFT - 11/01/2016 9:17 AM CDT Performed at [facility], [facility] [address] [place] [id number] CLIA number [id number] Allyson Pool PA-C LAB_1 Performing Organization Address City/State/ZIP Code [facility] e Number PN SOFT [address] [place] [address] documented in this encounter Visit Diagnoses Diagnosis Hand numbness - Primary Disturbance of skin sensation Hypocalcemia Memory changes Memory loss Anxiety (HRC) Anxiety state, unspecified Stress (HRC) Other psychological or physical stress, not elsewhere classified Hypocalcemia documented in this encounter Care Teams Silk Top Hat Body Maker Relationship Specialty Start Date End Date Allyson Pool PA-C PCP - General Physician Construction Sales Representative 09/26/16 02/28/21 [address] [place] [place] [id number] documented as of this encounter
--- OUTSIDE RECORDS SUMMARY | 2022-02-21 10:32 | XMS_ITS | Encounter Summary ---
:1935 Author Organization [facility] Address [address] [place] [address] Care Team Providers Name Role Phone Unavailable Primary Care Provider Unavailable Encounter Details Date Type Department Care Team Description 09/06/2009 PN Conversion Only [address] [address] [place] [address] Social History Tobacco Use Types Packs/Day Years Used Date Smoking Tobacco: Never Assessed Sex Assigned at Date Recorded Not on file documented as of this encounter Plan of Treatment Not on filedocumented as of this encounter Visit Diagnoses Not on filedocumented in this encounter
--- OUTSIDE RECORDS SUMMARY | 2022-02-21 10:32 | XMS_ITS | Encounter Summary ---
:1935 Author Organization [employer] Address [address] [place] [address] Care Team Providers Name Role Phone Allyson Pool PA-C Primary Care Provider Reason for Visit Reason Comments Follow-up memory and anxiety, numbness in fingers Encounter Details Date Type Department Care Team Description 2016 Office Visit [facility] Allyson Pool PA-C Elevated serum protein level (Primary Dx ); Medicine [address] Numbness and tingling of hand; [address] [place], [place] Memory change; [place] [address] Vitamin D deficiency; [phone] (Wo rk) Hypocalcemia; Elevated parathyroid hormone; Anxiety; Depression, ravi or, in remission (HRC) Social History Tobacco Use Types Packs/Day Years Used Date Smoking Tobacco: Never Smokeless Tobacco: Never Alcohol Use Standard Drinks/Week Comments Yes 0 (1 standard drink = 0.6 oz pure alcoho l) rare occasions Sex Assigned at Date Recorded Not on file documented as of this encounter Last Filed Vital Signs Vital Sign Reading Time Taken Comments Blood Pressure 122/70 2016 8:37 AM CDT Pulse 64 2016 8:37 AM CDT Temperature 36.9 ??C (98.4 ??F) 2016 8:37 AM CDT Respiratory Rate - - Oxygen Saturation - - Inhaled Oxygen Concentration - - Weight 97.5 kg (214 lb 14.4 oz) 2016 8:37 AM CDT Height - - Body Mass Index - - documented in this encounter Patient Instructions Patient InstructionsGrAllyson montoya PA-C - 2016 8:30 AM CDT Take ergocalciferol 50,000 units once a week for 8 weeks. Stop the other vitamin D for now. After these 8 weeks you will take cholecalciferol 1,000 units daily. After 8 weeks of taking this once go to lab to have your blood work rechecked. Follow up with the archery equipment repairer as scheduled. After you see the archery equipment repairer and completed all theirrecommended testing then come see me again in clinic. documented in this encounter Progress Notes Allyson Pool PA-C - 2016 8:30 AM CDT Internal Medicine [facility] - Allyson Pool PA-C Fidelia Vyas 81 y.o. 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 female who presents with her daughter Onel for follow-up: 1.) Patient's 2 primary concerns today are about her memory and tingling in her fingers. She was found to have a monoclonal protein and is scheduled for initial consult and hematology later this month.There was some concern that depression and anxiety work leading to some memory changes. We increasedher Paxil to 10 mg daily. Her anxiety and depression are now controlled yet she continues to have memory issues. PHQ9=2, GAD7=1. She mostly forgets easily and repeats herself. She continues to completeADLs safely. Able to drive without getting lost. She lives with her . Her does make comments to her about her memory which has a negative affect. There is some concern about his drinking. He has been doing better lately. Memory issue started around March 2016. There was no event thatwould indicate she had a stroke. 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 Has memory issues and tingling in her fingers as above. 3.) Elevated parathyroid hormone, low vitamin D, hypocalcemia. Patient was prescribed vitamin D replacement with plan to recheck vitamin D, parathyroid, calcium around February. She was to take ergocalciferol 50,000 units weekly ??8 weeks followed by cholecalciferol 1,000 units daily thereafter. After she had been on the cholecalciferol for 8 weeks she was to return for lab recheck. Unfortunately, it sounds like patient may be taken 5000 units of vitamin D every day. She is unclear about this. Her daughter will check when she gets home. 4.) Tingling in fingertips bilaterally. No neck pain. No numbness or tingling in arms. No loss of strength. No symptoms in her feet. Past Medical History: [place], hypertension, hyperlipidemia, depression, anxiety, aortic valve sclerosis Social History: Nonsmoker Allergies: Atorvastatin and Morphine Medications: Medications reviewed and updated in [facility]. Review of Systems: Pertinent review of systems is noted in the HPI. Physical Exam: BP 122/70 Pulse 64 Temp 36.9 ??C (98.4 ??F) (Oral) Wt 97.5 kg (214 lb 14.4 oz) Neuro: No focal deficits noted. Patient does have some difficulties with memory during her exam today. She is unsure of herself. Hands: Normal coloration. Normal cap refill. Strength is intact. Normal caustic liquor maker strength. Full range ofmotion of the neck without pain. Assessment and Plan: 1.) Memory concern and tingling in fingers - I would like her to see hematology to see if this could be related to the elevated serum protein (multiple myeloma) - If this is not felt to be related I would consider sending her to neurology versus EMG of the hands plus neuropsychiatric testing - MMSE today 28. Could not say what day of the week it was and had difficulty recalling one of the objects she was asked to remember. - Patient's anxiety and depression are controlled today and she continues to have memory issues 2.) Depression and anxiety - Controlled - Continue Paxil 10 mg daily - Recheck in 3-6 months, sooner if worsening symptoms 3.) Monoclonal protein - Follow up with hematology as planned 4.) Vitamin D deficiency, hypocalcemia, elevated parathyroid hormone - Replace vitamin D. Recheck levels after 16 weeks - Plan is to take ergocalciferol 50,000 units weekly ??8 weeks followed cholecalciferol vit D3 1000 units daily ??8 weeks. Recheck labs. - Her daughter will check what she is currently taking at home. 5.) Follow-up - Hematology - After she sees hematology incompletes the recommended evaluation she is to follow-up with me in clinic. Ideally would be in the next 2 months Allyson Pool PA-C 9:13 AM 2016 ICD-10-CM 1. Elevated serum protein level R77.9 2. Numbness and tingling of hand R20.2 R20.0 3. Memory change R41.3 4. Vitamin D deficiency (HRC) E55.9 5. Hypocalcemia E83.51 6. Elevated parathyroid hormone (HRC) E34.9 7. Anxiety (HRC) F41.9 8. 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 documented in this encounter Plan of Treatment Not on filedocumented as of this encounter Visit Diagnoses Diagnosis Elevated serum protein level - Primary Numbness and tingling of hand Memory change Memory loss Vitamin D deficiency (HRC) Unspecified vitamin D deficiency Hypocalcemia Elevated parathyroid hormone (HRC) Unspecified endocrine disorder Anxiety (HRC) Anxiety state, unspecified Depression, major, in remission (HRC) Major depressive disorder, single episod e in full remission documented in this encounter Care Teams Creative Art Director Relationship Specialty Start Date End Date Allyson Pool PA-C PCP - General Physician Mechanical Manager 09/26/16 02/28/[id number] [place] [id number] documented as of this encounter
--- OUTSIDE RECORDS SUMMARY | 2022-02-21 10:32 | XMS_ITS | Encounter Summary ---
:1935 Author Organization [employer] Address [address] [place] [address] Care Team Providers Name Role Phone Unavailable Primary Care Provider Unavailable Encounter Details Date Type Department Care Team Description 09/06/2009 PN Conversion Only [facility] [address] [place] [address] Social History Tobacco Use Types Packs/Day Years Used Date Smoking Tobacco: Never Assessed Sex Assigned at Date Recorded Not on file documented as of this encounter Plan of Treatment Not on filedocumented as of this encounter Procedures Procedure Name Priority Date/Time Associated Diagnosis Comme nts MM MAMMOGRAM Routine 09/06/2009 10:27 AM Results for this SCREENING BILAT W CDT procedure are in CAD the results section. documented in this encounter Results MM Mammogram Screening Bilat W CAD (09/06/2009 10:27 AM CDT) Anatomical Region Laterality Modality Breast Bilateral Mammography Specimen (Source) Anatomical Location Collection Method / Collectio n Time Received Time / Laterality Volume Narrative 09/08/2009 8:30 AM CDT Comparison is made to films from 11/11/2006 (bilateral). Bilateral Breast Findings: The breasts are almost entirely fat (les s than or equal to 10% fibroglandular). ??No significant masses , calcifications or other abnormalities are seen. IMPRESSION: BILATERAL BREASTS Negative, no evidence of malignancy. Nor mal interval follow-up is recommended in 12 months. OVERALL ASSESSMENT - CATEGORY 1 - NEGATI VE END OF IMPRESSION Dictating JOSE TORRES RADIOLOGIST Procedure Note Jose Thomas MD - 01/03/2016 Comparison is made to films from 007 (bilateral). Bilateral Breast Findings: The breasts are almost entirely fat (les s than or equal to 10% fibroglandular). No significant masses, calcifications or other abnormalities are seen. IMPRESSION: BILATERAL BREASTS Negative, no evidence of malignancy. Nor mal interval follow-up is recommended in 12 months. OVERALL ASSESSMENT - CATEGORY 1 - NEGATI VE END OF IMPRESSION Dictating JOSE TORRES RADIOLOGIST Alicia Nice MD RAD [facility] documented in this encounter Visit Diagnoses Not on filedocumented in this encounter
--- OUTSIDE RECORDS SUMMARY | 2022-02-21 10:32 | XMS_ITS | Encounter Summary ---
:1935 Author Organization [facility] Address [address] [address] Care Team Providers Name Role Phone Unavailable Primary Care Provider Unavailable Encounter Details Date Type Department Care Team Description 05/13/1989 PN Conversion Only [facility] [employer] [address] [place] [address] Social History Tobacco Use Types Packs/Day Years Used Date Smoking Tobacco: Never Assessed Sex Assigned at Date Recorded Not on file documented as of this encounter Plan of Treatment Not on filedocumented as of this encounter Visit Diagnoses Not on filedocumented in this encounter
--- OUTSIDE RECORDS SUMMARY | 2022-02-21 10:32 | XMS_ITS | Encounter Summary ---
:1935 [facility] Address [address] [place] [address] Care Team Providers Name Role Phone Allyson Pool PA-C Primary Care Provider Reason for Visit Reason Comments CONSULT Consult/Transfer Care (Routine) - Closed Specialty Diagnoses / Procedures Referred By Contact Refer red To Contact Diagnoses Elevated serum protein level Allyson Pool PA-C [address] [place] [address] Referral ID Status Reason Start Date Expiration Date Visits Requ ested Visits Authorized [id number] Closed 11/06/2016 02/05/2018 1 1 Encounter Details Date Type Department Care Team Description 12/05/2016 Initial Consult [facility] Margarita Luna, Elevated serum Care at [place] Marlys Luciano i, MBBS protein level [facility] [address] [place] [address] (Primary Dx) [address] [place] [address] [place], [place] [phone] [address] Social History Tobacco Use Types Packs/Day Years Used Date Smoking Tobacco: Never Smokeless Tobacco: Never Alcohol Use Standard Drinks/Week Comments Yes 0 (1 standard drink = 0.6 oz pure alcoho l) rare occasions Sex Assigned at Date Recorded Not on file documented as of this encounter Last Filed Vital Signs Vital Sign Reading Time Taken Comments Blood Pressure 132/69 12/05/2016 3:05 PM CDT Pulse 61 12/05/2016 3:05 PM CDT Temperature 36.8 ??C (98.2 ??F) 12/05/2016 3:05 PM CDT Respiratory Rate - - Oxygen Saturation - - Inhaled Oxygen Concentration - - Weight 97.7 kg (215 lb 6.4 oz) 12/05/2016 3:05 PM CDT Height 160 cm (5' 3) 12/05/2016 3:05 PM CDT Body Mass Index 38.16 12/05/2016 3:05 PM CDT documented in this encounter Progress Notes Marlys Barboza MBBS - 12/05/2016 12:00 PM CDT NAME: WAQAR LUNDBERG MR#: [id number] CSN: [id number] AUTHENTICATING CLINICIAN: MILADIS Dennis CONFIRM #: [id number] LOC: 3704 CLINIC CONSULTATION DATE OF CONSULTATION: 12/05/2016 : 1935 REQUESTING PHYSICIAN: Waqar is a 81-year-old with history of hypertension, coronary artery disease, with cardiac arrest and VFib in 2002, first NV reportedly at age 44. She comes today [...] stable. No recent fevers, chills, or infections. REVIEW OF SYSTEMS: Otherwise negative. PAST MEDICAL HISTORY: Significant for hypertension, status post cardiac arrest, VFib in 2002 and first heart attack at age44. PAST SURGICAL HISTORY: Gallbladder surgery, appendectomy, hysterectomy. FAMILY HISTORY: Mother had heart attack in her 40s. Sister with heart attack, and sister also had lung cancer in her50s and she was a smoker. PERSONAL HISTORY: No smoking. Occasional alcohol use. CURRENT MEDICATIONS: Include amlodipine, aspirin, vitamin D3, labetalol, Nitrostat, Paxil and triamterene hydrochlorothiazide. OBJECTIVE: VITAL SIGNS: Temperature 98.2, heart rate [...] neuro exam. SKIN: No rashes or lesions. LABORATORY DATA: White count 6.3, hemoglobin 14, platelets are 148, creatinine 0.8. Electrolytes within normal limitsincluding normal calcium. ASSESSMENT/PLAN: Waqar is a 81-year-old with history of hypertension, coronary artery disease, status post ventricular fibrillation, cardiac arrest in 2002 has been referred here for evaluation of monoclonal protein. I discussed with Waqar and her daughter her electrophoresis which was performed on 11/01/2016, showing 0.5 g of IgG kappa. She does not have any CRAB features specifically anemia or abnormal kidney function with normal calcium levels. She does not have any abnormal bone pain or aches or any new symptoms or fractures in the past. I discussed with her that we will be obtaining free light chain assays and quantitative immunoglobulins for further evaluation. 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 I went over the nature and generation of MGUS with her in detail. I do not think a bone survey is necessary at this time, but could consider that if the protein increases any further. She will visit with us in 4-5 months for followup. All of Waqar's questions were answered to her satisfaction today. CA:MEDQ C: CONFIRM #: [id number] documented in this encounter Plan of Treatment Not on filedocumented as of this encounter Results IgM - in 6 months (05/24/2017 2:23 PM SUPERVISOR SMALL APPLIANCE ASSEMBLY) athologist Signature Immunoglobulin M 90 33 - 293 PN SOFT mg/dL Specimen Anatomical Collection Method Collection Time Receive d Time (Source) Location / / Volume Laterality 05/24/2017 2:23 PM 8 6:12 [employer]PER[employer]BL[employer] PM SUPERVISOR SMALL [employer]PLIANCE [employer]SEMBLY Narrative PN SOFT - 05/24/2017 6:41 PM SUPERVISOR SMALL [employer]PLIANCE [employer]SEMBLY Performed at [address] [address] CLIA number [id number] Marlys [facility]_1 Performing Organization Address [facility] Phon e Number PN SOFT [address] [place] [address] IgG - in 6 months (05/24/2017 2:23 PM SUPERVISOR SMALL APPLIANCE ASSEMBLY) athologist Signature Immunoglobulin G 1,332 552 - PN SOFT 1,631 mg/dL Specimen Anatomical Collection Method Collection Time Receive d Time (Source) Location / / Volume Laterality 05/24/2017 2:23 PM 8 6:12 SUPERVISOR SMALL APPLIANCE ASSEMBLY PM SUPERVISOR SMALL APPLIANCE ASSEMBLY Narrative PN SOFT - 05/24/2017 6:41 PM SUPERVISOR SMALL APPLIANCE ASSEMBLY Performed at [address] [address] CLIA number [id number] Marly[facility] Performing Organization Address [facility] Phon e Number PN SOFT [address] [place] [address] IgA, Serum - in 6 months (05/24/2017 2:23 PM SUPERVISOR SMALL APPLIANCE ASSEMBLY) athologist Signature Immunoglobulin A 252 69 - 517 PN SOFT mg/dL Specimen Anatomical Collection Method Collection Time Receive d Time (Source) Location / / Volume Laterality 05/24/2017 2:23 PM 8 6:12 SUPERVISOR SMALL APPLIANCE ASSEMBLY PM SUPERVISOR SMALL APPLIANCE ASSEMBLY Narrative PN SOFT - 05/24/2017 6:41 PM SUPERVISOR SMALL [employer]PLIANCE ASSEMBLY Performed at [address] [address] CLIA number [id number] Marlys [facility] Performing Organization Address [facility]/ZIP Code Phon e Number PN SOFT [address] [place] [address] (ABNORMAL) Free Light Chains, Serum - in 6 months (05/24/2017 2:23 PM SUPERVISOR SMALL APPLIANCE ASSEMBLY) athologist Signature [place] Free 2.59 (H) 0.33 - PN SOFT Light Chains 1.94 mg/dl Lambda Free 1.73 0.57 - PN SOFT Light Chains 2.63 mg/dl [place]/Lambda 1.50 0.26 - PN SOFT Ratio Free 1.65 Light Chains Comment: Performed at [facility], [address] [place] [address] CLIA Number [id number] Specimen Anatomical Collection Method Collection Time Receive d Time (Source) Location / / Volume Laterality 05/24/2017 2:23 PM 8 6:14 SUPERVISOR SMALL APPLIANCE ASSEMBLY PM SUPERVISOR SMALL APPLIANCE ASSEMBLY Marlys [facility] Performing Organization Address City/[facility] Code Phon e Number PN SOFT [address] [place] [address] (ABNORMAL) Electrophoresis Protein, Serum - in 6 months (05/24/2017 2:23 PM SUPERVISOR SMALL APPLIANCE ASSEMBLY) athologist Signature Total Protein 7.1 6.4 - 8.3 PN SOFT g/dl Comment: Performed at [facility], [address] [place] [address] Albumin 3.8 3.4 - 4.8 g/dl PN SOFT Alpha 1 0.3 0.2 - 0.5 g/dl PN SOFT Alpha 2 0.9 0.5 - 1.1 g/dl PN SOFT Beta 0.8 0.6 - 1.1 g/dl PN SOFT Gamma 1.2 0.7 - 1.6 g/dl PN SOFT Monoclonal Joaquin 0.5 (H) 0.0 g/dl PN SOFT Comment: IgG [place] Interpretation SEE BELOW PN SOFT Comment: A monoclonal protein has been detected b y serum protein electrophoresis. Signed out by SEE BELOW PN SOFT Comment: [facility] Performed at [facility], [address] [place] [address] [place] ??[address] CLIA Number [id number] Specimen Anatomical Collection Method Collection Time Receive d Time (Source) Location / / Volume Laterality 05/24/2017 2:23 PM 8 6:12 SUPERVISOR SMALL APPLIANCE ASSEMBLY PM SUPERVISOR SMALL APPLIANCE ASSEMBLY Marlys Rochefrancescarome DelgadilloCheryl [facility] Performing Organization Address [facility] Code Phon e Number PN SOFT [address] [place] [address] Oncology Profile - in 6 months (05/24/2017 2:23 PM SUPERVISOR [employer] APPLIANCE ASSEMBLY) Patholo gist Method Time Signature Aspartate 25 [...] Volume Laterality 05/24/2017 2:23 PM 8 2:22 SUPERVISOR [employer] APPLIANCE ASSEMBLY PM SUPERVISOR SMALL APPLIANCE ASSEMBLY Narrative PN SOFT - 05/24/2017 2:44 PM SUPERVISOR SMALL APPLIANCE ASSEMBLY Performed at [facility], [address] [place] [address] CLIA number [id number] Marlys Moore Margarita [facility]_1 Performing Organization Address [facility] Phon e Number PN SOFT [address] [place] [address] [phone] Complete Blood Count W/Diff - in 6 months (05/24/2017 2:23 PM SUPERVISOR [employer] APPLIANCE ASSEMBLY) P athologist Signature White Blood Cell 6.7 [...] Volume Laterality 05/24/2017 2:23 PM 8 2:23 SUPERVISOR SMALL APPLIANCE ASSEMBLY PM SUPERVISOR SMALL APPLIANCE ASSEMBLY Narrative PN SOFT - 05/24/2017 2:25 PM SUPERVISOR SMALL APPLIANCE ASSEMBLY Performed at [facility], [address] [place] [address] CLIA number [id number] Marlys Luna [facility] Performing Organization Address [facility] Phon e Number PN SOFT [address] [place] [address] (ABNORMAL) Free Light Chains, Serum - today (12/05/2016 4:03 PM CDT) athologist Signature [place] Free 3.63 (H) 0.33 - PN SOFT Light Chains 1.94 mg/dl Lambda Free 1.73 0.57 - PN SOFT Light Chains 2.63 mg/dl [place]/Lambda 2.10 (H) 0.26 - PN SOFT Ratio Free 1.65 Light Chains Comment: Performed at [facility], [address] [place] [address] CLIA Number [id number] Specimen Anatomical Collection Method Collection Time Receive d Time (Source) Location / / Volume Laterality 12/05/2016 4:03 PM 7 9:23 CDT PM CDT Marlys Luna [facility] Performing Organization Address [facility] Phon e Number PN SOFT [address] [place] [address] IgA, Serum - today (12/05/2016 4:03 PM CDT) athologist Signature Immunoglobulin A 239 69 - 517 PN SOFT mg/dL Specimen Anatomical Collection Method Collection Time Receive d Time (Source) Location / / Volume Laterality 12/05/2016 4:03 PM 7 9:20 CDT PM CDT Narrative PN SOFT - 12/05/2016 11:55 PM CDT Performed at [place] [address] [place] [address] CLIA number [id number] Marlys [facility] Performing Organization Address [facility] Phon e Number PN SOFT [address] [place] [address] IgM - today (12/05/2016 4:03 PM CDT) athologist Signature Immunoglobulin M 96 33 - 293 PN SOFT mg/dL Specimen Anatomical Collection Method Collection Time Receive d Time (Source) Location / / Volume Laterality 12/05/2016 4:03 PM 7 9:20 CDT PM CDT Narrative PN SOFT - 12/05/2016 11:55 PM CDT Performed at [address] [address] CLIA number [id number] Marlys [facility] Performing Organization Address [facility] Phon e Number PN SOFT [address] [place] [address] IgG - today (12/05/2016 4:03 PM CDT) athologist Signature Immunoglobulin G 1,342 552 - PN SOFT 1,631 mg/dL Specimen Anatomical Collection Method Collection Time Receive d Time (Source) Location / / Volume Laterality 12/05/2016 4:03 PM 7 9:20 CDT PM CDT Narrative PN SOFT - 12/05/2016 11:55 PM CDT Performed at [place] [address] [place] [address] CLIA number [id number] Marlys [facility] Performing Organization Address [facility]/State/ZIP Code Phon e Number PN SOFT [address] [place] [address] documented in this encounter Visit Diagnoses Diagnosis Elevated serum protein level - Primary Elevated serum protein level Elevated serum protein level documented in this encounter Care Teams Manager Business Relationship Specialty Start Date End Date Allyson Pool PA-C PCP - General Physician Direct Care Professional 09/26/16 02/28/21 [address] [place] [id number] documented as of this encounter
--- OUTSIDE RECORDS SUMMARY | 2022-02-21 10:32 | XMS_ITS | Encounter Summary ---
:1935 Author Organization [facility] Address [address] [place] [address] Care Team Providers Name Role Phone Unavailable Primary Care Provider Unavailable Encounter Details Date Type Department Care Team Description 10/05/2011 Notes/Orders [place] [facility] Alicia Nice, Other screening [address] [facility] [place] [address] [place], [place] [phone] [address] Social History Tobacco Use Types Packs/Day Years Used Date Smoking Tobacco: Never Assessed Sex Assigned at Date Recorded Not on file documented as of this encounter Plan of Treatment Not on filedocumented as of this encounter Procedures Procedure Name Priority Date/Time Associated Diagnosis Comme nts MM MAMMOGRAM Routine 10/12/2011 9:44 AM Other screening Result s for this SCREENING BILAT W CDT mammogram procedure are in CAD the results section. documented in this encounter Results MM Mammogram Screening Bilat W CAD (10/12/2011 9:44 AM CDT) Anatomical Region Laterality Modality Breast Bilateral Mammography Specimen (Source) Anatomical Location Collection Method / Collectio n Time Received Time / Laterality Volume Impressions 10/12/2011 9:50 AM CDT IMPRESSION: RIGHT BREAST: Benign, no evidence of mal ignancy. Normal interval follow-up is recommended in 12 months. LEFT BREAST: Negative, no evidence of ma lignancy. Normal interval follow-up is recommended in 12 months. OVERALL ASSESSMENT - CATEGORY 2 - BENIGN END OF IMPRESSION BJ Narrative 10/12/2011 9:50 AM CDT Comparison is made to films from 011 (bilateral) and films from 09/06/2009 (bilateral) and films [facility] 08/20/2005 (bilateral). There is no significant interval change. Right Breast Findings: There are scattered fibroglandular densi ties (11% - 50% fibroglandular). The patient has a marke r from previous needle biopsy at 8 o'clock anteriorly. No significant masses, calcifications or other abnormalities are seen. Left Breast Findings: There are scattered fibroglandular densi ties (11% - 50% fibroglandular). No significant masses, calcifications or other abnormalities are seen. Procedure Note Ruben De La Cruz MD - 01/03/2016Form atting of this note might be different from the original. Comparison is made to films from 011 (bilateral) and films from 09/06/2009 (bilateral) and films [facility] 08/20/2005 (bilateral). There is no significant interval change. Right Breast Findings: There are scattered fibroglandular densi ties (11% - 50% fibroglandular). The patient has a marke r from previous needle biopsy at 8 o'clock anteriorly. No significant masses, calcifications or other abnormalities are seen. Left Breast Findings: There are scattered fibroglandular densi ties (11% - 50% fibroglandular). No significant masses, calcifications or other abnormalities are seen. IMPRESSION IMPRESSION: RIGHT BREAST: Benign, no evidence of mal ignancy. Normal interval follow-up is recommended in 12 months. LEFT BREAST: Negative, no evidence of ma lignancy. Normal interval follow-up is recommended in 12 months. OVERALL ASSESSMENT - CATEGORY 2 - BENIGN END OF IMPRESSION BJ Alicia Nice MD RAD BR[facility]NA[facility] documented in this encounter Visit Diagnoses Diagnosis Other screening mammogram documented in this encounter
--- OUTSIDE RECORDS SUMMARY | 2022-02-21 10:32 | XMS_ITS | Encounter Summary ---
:1935 Author Organization [facility] Address [address] [facility] [place] [address] Care Team Providers Name Role Phone Allyson Pool Primary Care Provider Guillermo Martinez MD Unavailable Encounter Details Date Type Department Care Team Description 11/21/2017 Orders Only [facility] Heart Jimbo gn essential hypertension; Clinic [place] Coronary artery disease invo lving [place] coronary artery of [place] heart without angina pectoris [address] [facility] [address] [place] [address] Social History Tobacco Use Types Packs/Day Years [...] Name Priority Date/Time Associated Diagnosis Comme nts LIPID PROFILE STAT 11/21/2017 9:26 AM Coronary artery Resul ts for this CDT disease involving procedure are in [place] coronary the results artery of [place] section. heart without angina pectoris ALT STAT 11/21/2017 9:26 AM Coronary artery Result s for this CDT disease involving procedure are in [place] coronary the results artery of [place] section. heart without angina pectoris BASIC METABOLIC STAT 11/21/2017 9:26 AM Benign essential Re sults for this PANEL CDT hypertension procedure are in Coronary artery the results disease involving section. [place] coronary artery of [place] heart without angina pectoris documented in this encounter Results ALT (11/21/2017 9:26 AM CDT) athologist Signature ALT 15 0 - 50 U/L 11/21/2017 [facility] 9:57 AM [facility] Specimen Anatomical Collection Method Collection Time Receive d Time (Source) Location / / Volume Laterality Blood specimen 11/21/2017 9:26 AM 018 9:27 (specimen) CDT AM CDT Guillermo Martinez MD LAB - BLOOD ORDERABLES Performing Organization Address City/[facility] Phon e Arnaud Fink [facility] [address] [place] [place], [place] [address] [facility] [address] [place], [place] [address], [facility] [phone] Lipid Profile (11/21/2017 9:26 AM CDT) athologist Signature Cholesterol 140 <200 mg/dL 11/21/2017 [place] 9:57 AM [facility] Triglycerides 79 <150 mg/dL 11/21/2017 [place] 9:57 AM [facility] Comment: Fasting specimen HDL Cholesterol 62 >49 mg/dL 11/21/2017 9:57 AM [facility] LDL Cholesterol 62 <100 mg/dL 11/21/2017 9:57 AM [facility] Comment: Desirable: <100 mg/dl Non HDL Cholesterol 78 <130 mg/dL 11/21/2017 9:57 AM [facility] Specimen Anatomical Collection Method Collection Time Receive d Time (Source) Location / / Volume Laterality Blood specimen 11/21/2017 9:26 AM 018 9:27 (specimen) CDT AM CDT Guillermo Martinez MD LAB - BLOOD ORDERABLES Performing Organization Address City/[facility] Phon e Arnaud Fink [facility] [address] [place], [place] [address] [facility] [address] [place], [place] [address], [facility] [phone] (ABNORMAL) Basic metabolic panel (11/21/2017 9:26 AM CDT) P athologist Signature Sodium 144 133 - 144 11/21/2017 [place] mmol/L 9:57 AM [facility] Potassium 3.6 3.4 - 5.3 11/21/2017 [place] mmol/L 9:57 AM [facility] Chloride 110 (H) 94 - 109 11/21/2017 [place] mmol/L 9:57 AM [facility] Carbon Dioxide 27 20 - 32 11/21/2017 [place] mmol/L 9:57 AM [facility] Anion Gap 7 3 - 14 11/21/2017 [place] mmol/L 9:57 AM [facility] Glucose 92 70 - 99 11/21/2017 [place] mg/dL 9:57 AM [facility] Comment: Fasting specimen Urea Nitrogen 8 7 - 30 mg/dL 11/21/2017 9:57 AM [facility] Creatinine 0.70 0.52 - 1.04 mg/dL 11/21/2017 9:57 AM CD [facility] GFR Estimate 81 >60 mL/min/1.7m2 11/21/2017 9:57 AM C DT [facility] Comment: Non GFR Calc GFR Estimate If >90 >60 mL/min/1.7m2 11/21/2017 9:57 A M [facility] Comment: GFR Calc Calcium 8.4 (L) 8.5 - 10.1 mg/dL 11/21/2017 9:57 AM [facility] Specimen Anatomical Collection Method Collection Time Receive d Time (Source) Location / / Volume Laterality Blood specimen 11/21/2017 9:26 AM 018 9:27 (specimen) CDT AM T Guillermo Martinez MD LAB - BLOOD ORDERABLES Performing Organization Address City/State/ZIP Code Phon e Number M [facility] [address] [place], [place] [address] [facility] [address] [place], [place] [address] [place] [address] documented in this encounter Visit Diagnoses Diagnosis Benign essential hypertension Essential hypertension, benign Coronary artery disease involving [place] coronary artery of [place] heart without angina pectoris documented in this encounter Care Teams Courtroom Clerk Relationship Specialty Start Date End Date Allyson Pool PA PCP - General 04/27/17 [facility] [address] [place] [address] Guillermo Martinez MD MD Cardiology 11/15/17 [address] [place] [address] documented as of this encounter
--- OUTSIDE RECORDS SUMMARY | 2022-02-21 10:32 | XMS_ITS | Encounter Summary ---
:1935 Author Organization [facility] Address [address] [place] [address] Care Team Providers Name Role Phone Allyson Pool PA-C Primary Care Provider Reason for Referral Consult/Transfer Care (Routine) - Closed Specialty Diagnoses / Procedures Referred By Contact Refer red To Contact Diagnoses Elevated serum protein level Allyson Pool PA-C [address] [place] [address] Referral ID Status Reason Start Date Expiration Date Visits Requ ested Visits Authorized [id number] Closed 11/06/2016 02/05/2018 1 1 Scheduling Instructions Your provider has recommended an appoint ment with [facility]. You may call [phone] to quincy edule your appointment. If you do not schedule an appointment within the next 1 to 3 business days, we will call you to help arrange your appointment. We sugges t you call your health insurance company about your coverage and benefits for thi s appointment. Reason for Visit Reason Onset Date Comments RESULTS, TEST 11/06/2016 Encounter Details Date Type Department Care Team Description 11/06/2016 Telephone Allyson Palomo PA-C RESULTS, TEST Medicine [address] [address] [place] [address] [place], [place] [address] [phone] Social History Tobacco Use Types Packs/Day Years Used Date Smoking Tobacco: Never Smokeless Tobacco: Never Alcohol Use Standard Drinks/Week Comments Yes 0 (1 standard drink = 0.6 oz pure alcoho l) rare occasions Sex Assigned at Date Recorded Not on file documented as of this encounter Nursing Notes Allyson Pool PA-C - 11/06/2016 4:50 PM CDT Spoke to patient about elevated monoclonal protein. She will call hematology to schedule. Also some issues with her memory that is becoming quite notable the more I know her. I spoke to her daughter Onel to make sure that she was also aware of the plan and findings. She has been with at all of her mother's appointments. She will make sure she follows up with hematology. They will get a sooner appointment with me for physical exam if it works and their schedule Allyson Pool PA-C 5:02 PM 11/06/2016 documented in this encounter Plan of Treatment Scheduled Referrals Name Type Priority Associated Diagnoses Order S chedule Oncology/Hematology Referral Routine Elevated serum protei n Ordered: 11/06/2016 Consult Adult level documented as of this encounter Visit Diagnoses Diagnosis Elevated serum protein level - Primary documented in this encounter Care Teams Shovel Handle Assembler Relationship Specialty Start Date End Date Allyson Pool PA-C PCP - General Physician Craft Superintendent 09/26/16 02/28/21 [address] [place] [id number] documented as of this encounter
--- OUTSIDE RECORDS SUMMARY | 2022-02-21 10:32 | XMS_ITS | Encounter Summary ---
:1935 Author Organization [employer] Address [address] [place] [address] Care Team Providers Name Role Phone Allyson Pool PA-C Primary Care Provider Reason for Visit Reason Onset Date Comments Patient Calling Back 11/06/2016 Encounter Details Date Type Department Care Team Description 11/06/2016 Telephone [facility] Allyson Pool PA-C Patient Calling Back [facility] [address] [facility] [address] [place], [place] [id number] [place] [address] [phone] Social History Tobacco Use Types Packs/Day Years Used Date Smoking Tobacco: Never Smokeless Tobacco: Never Alcohol Use Standard Drinks/Week Comments Yes 0 (1 standard drink = 0.6 oz pure alcoho l) rare occasions Sex Assigned at Date Recorded Not on file documented as of this encounter Nursing Notes Reanna Archer RN - 11/06/2016 2:30 PM CDT Spoke with patient, answered questions about lab results, no further questions at this time. Ginna Mondragon - 11/06/2016 2:20 PM CDT Pt is calling back to re confirm the information she received from the closed encounter from 11/06/16. Pt confirmed a detailed message is okay. Please advise. documented in this encounter Plan of Treatment Not on filedocumented as of this encounter Visit Diagnoses Not on filedocumented in this encounter Care Teams Fire Management Specialist Relationship Specialty Start Date End Date Allyson Pool PA-C PCP - General Physician Dermatology Nurse Practitioner 09/26/16 02/28/21 [id number] [place] [id number] documented as of this encounter
--- OUTSIDE RECORDS SUMMARY | 2022-02-21 10:32 | XMS_ITS | Encounter Summary ---
:1935 Author Organization [employer] Address [address] [place] [address] Care Team Providers Name Role Phone Allyson Pool PA-C Primary Care Provider Encounter Details Date Type Department Care Team Description 10/05/2016 Notes/Orders [facility] Allyson Pool PA-C Old myocardial infarction (Primary Dx); Medicine [address] [place] Recurrent major depressive disorder, in remission (HRC); [address] [place], [place] Essential hypertension; [place] [address] Hyperlipidemia, unspecified hyperlipidem ia type [phone] Social History Tobacco Use Types Packs/Day Years Used Date Smoking Tobacco: Never Smokeless Tobacco: Never Alcohol Use Standard Drinks/Week Comments Yes 0 (1 standard drink = 0.6 oz pure alcoho l) rare occasions Sex Assigned at Date Recorded Not on file documented as of this encounter Progress Notes Allyson Pool PA-C - 10/05/2016 3:21 PM CDT Can you please confirm her meds are correct. I am not clear on her labetolol dose. She [facility]ology [facility] so was under the impression they would fill these. Please make sure no changes were made in dosing. Allyson Pool PA-C 3:24 PM 10/05/2016 I called and spoke to Fidelia. She took her pill bottles out and read me the name of medication and dose she is taking of each. ?? AmLODIPine: 5 mg (takes 2.5mg (1/2 tablet) daily) ?? Crestor: 40 mg tablet daily ?? Labetalol: 100 mg (takes 1/2 tab (50mg) in am, and 1 tab (100mg) at hs ?? PARoxetine: 10 mg tablet daily ?? Triamterene-Hydrochlorothiazide: 37.5-25 mg (takes 1/2 tablet daily Ordered and sent to pharmacy Allyson Pool PA-C 4:16 PM 10/05/2016 documented in this encounter Plan of Treatment Not on filedocumented as of this encounter Visit Diagnoses Diagnosis Old myocardial infarction (HRC) - Primar y Old myocardial infarction Recurrent major depressive disorder, in remission (HRC) Essential hypertension (HRC) Unspecified essential hypertension Hyperlipidemia, unspecified hyperlipidem ia type (HRC) documented in this encounter Care Teams Cardiac Catheterization Technician Relationship Specialty Start Date End Date Allyson Pool PA-C PCP - General Physician Composition Instructor 09/26/16 02/28/[id number] [place] [id number] documented as of this encounter
--- OUTSIDE RECORDS SUMMARY | 2022-02-21 10:32 | XMS_ITS | Encounter Summary ---
:1935 Author Organization [employer] Address [address] [place] [address] Care Team Providers Name Role Phone Unavailable Primary Care Provider Unavailable Encounter Details Date Type Department Care Team Description 09/07/2004 PN Conversion Only [facility] [address] [place], [place] [address] Social History Tobacco Use Types Packs/Day Years Used Date Smoking Tobacco: Never Assessed Sex Assigned at Date Recorded Not on file documented as of this encounter Plan of Treatment Not on filedocumented as of this encounter Procedures Procedure Name Priority Date/Time Associated Diagnosis Comme nts MM US BREAST UNILAT Routine 09/07/2004 2:12 PM Re sults for this (JBBC) CDT procedure are i n the results section. MM US BX BREAST Routine 09/07/2004 2:07 PM Result s for this BILAT CDT procedure are i n the results section. documented in this encounter Results MM US Breast Unilat (JBBC) (09/07/2004 2:12 PM CDT) Anatomical Region Laterality Modality Breast Ultrasound Specimen (Source) Anatomical Location Collection Method / Collectio n Time Received Time / Laterality Volume Narrative 09/08/2004 2:33 PM CDT Examination is done because of mammographic and outside sonographic findings at 9 o'clock position in the ri ght breast. There is approximately 5 x 3 mm hypoechoic focus which is somewhat comma-shaped. This has mottled very hypo echoic areas within it suggestive of fibrocystic mass. Margins are smooth. Patient is already scheduled for ultrasound-guided core biopsy of this mass. INTERPRETATION: Benign appearing but marina hnically indeterminate small mass right breast, 9 o'clock position. ACR-BIRADS CATEGORY 2: Benign finding. [id number] Dictating TANG GHOSH RADIOLOGIST Procedure Note Tang Smith - 08/21/2016Formattin g of this note might be different from the original. Examination is done because of mammograp hic and outside sonographic findings at 9 o'clock position in the ri ght breast. There is approximately 5 x 3 mm hypoechoic focus which is somewhat comma-shaped. This has mottled very hypo echoic areas within it suggestive of fibrocystic mass. Margins are smooth. Patient is already scheduled for ultrasound-guided core biopsy of this mass. INTERPRETATION: Benign appearing but marina hnically indeterminate small mass right breast, 9 o'clock position. ACR-BIRADS CATEGORY 2: Benign finding. [id number] Dictating TANG GHOSH RADIOLOGIST Karissa Kim MD [facility] MM US Bx Breast Bilat (09/07/2004 2:07 PM CDT) Anatomical Region Laterality Modality Breast Bilateral Ultrasound Specimen (Source) Anatomical Location Collection Method / Collectio n Time Received Time / Laterality Volume Narrative 09/08/2004 2:32 PM CDT The patient had a small hypoechoic heterogeneous focus right breast, 9 o'clock position. ??Approach was made from the lateral slightly inferior aspect. ??1% lidocaine solution was injected superficially, and lidocaine/epinephrine solution was i njected around the mass. ??A small skin incision was made with a #11 blade. A 10-gauge VacuFlash needle was inserted posterior to the mass, and 6 core biopsies were taken. ??It appeared that the small mass was no longer present following the biopsies. ? ?Ultracor marker and pellets were placed in the biopsy site. Post biopsy mammogram shows the marker a t the same position as the initial mass, mass is no longer visible. INTERPRETATION: ??Apparently successful ultrasound-guided core biopsy small right breast mass 9 o'clock positi on. ??Marker was placed. [id number] PATHOLOGY: 1. Benign mammary fibrocystic changes ?? with multiple foci of ductal epithelial apocrine metaplasia. 2. Focal acute ductal mastitis . 3. Focal periductal chronic xanthomatous mastitis. RECOMMENDATION: ??6 mos. mammo f/u. Dictating TANG GHOSH RADIOLOGIST Procedure Note Tang Smith - 07/19/2016Formattin g of this note might be different from the original. The patient had a small hypoechoic heter ogeneous focus right breast, 9 o'clock position. Approach was made fr om the lateral slightly inferior aspect. 1% lidocaine solution w as injected superficially, and lidocaine/epinephrine solution was i njected around the mass. A small skin incision was made with a #11 blade. A 10-gauge VacuFlash needle was inserted posterior to the mass, and 6 core biopsies were taken. It appeared th at the small mass was no longer present following the biopsies. U ltracor marker and pellets were placed in the biopsy site. Post biopsy mammogram shows the marker a t the same position as the initial mass, mass is no longer visible. INTERPRETATION: Apparently successful ul trasound-guided core biopsy small right breast mass 9 o'clock positi on. Marker was placed. [id number] PATHOLOGY: 1. Benign mammary fibrocystic changes wi th multiple foci of ductal epithelial apocrine metaplasia. 2. Focal acute ductal mastitis . 3. Focal periductal chronic xanthomatous mastitis. RECOMMENDATION: 6 mos. mammo f/u. Dictating TANG GHOSH RADIOLOGIST Karissa Kim MD RAD [facility] documented in this encounter Visit Diagnoses Not on filedocumented in this encounter
--- OUTSIDE RECORDS SUMMARY | 2022-02-21 10:32 | XMS_ITS | Encounter Summary ---
:1935 Author Organization [employer] Address [address] [place] [address] Care Team Providers Name Role Phone Unavailable Primary Care Provider Unavailable Encounter Details Date Type Department Care Team Description 01/26/2008 PN Conversion Only [facility] [address] [place] [address] Social History Tobacco Use Types Packs/Day Years Used Date Smoking Tobacco: Never Assessed Sex Assigned at Date Recorded Not on file documented as of this encounter Plan of Treatment Not on filedocumented as of this encounter Procedures Procedure Name Priority Date/Time Associated Diagnosis Comme nts MM MAMMOGRAM Routine 01/26/2008 2:36 PM Results f or this SCREENING BILAT W CDT procedure are in CAD the results section. documented in this encounter Results MM Mammogram Screening Bilat W CAD (01/26/2008 2:36 PM CDT) Anatomical Region Laterality Modality Breast Bilateral Mammography Specimen (Source) Anatomical Location Collection Method / Collectio n Time Received Time / Laterality Volume Impressions 01/28/2008 3:03 PM CDT : BILATERAL BREASTS - CATEGORY 2 Benign, no evidence of malignancy. Licha l interval follow-up is recommended in 12 months. OVERALL ASSESSMENT - BENIGN END OF IMPRESSION Dictating SHAWN CONDON RADIOLOGIST Narrative 01/28/2008 3:03 PM CDT Comparison is made to films from 11/11/2006 (bilateral). ??There is no significant interval change. Bilateral Breast Findings: The breasts are almost entirely fat. Procedure Note Shawn Bran MD - 07/19/2016Fo rmatting of this note might be different from the original. Comparison is made to films from 007 (bilateral). There is no significant interval change. Bilateral Breast Findings: The breasts are almost entirely fat. IMPRESSION : BILATERAL BREASTS - CATEGORY 2 Benign, no evidence of malignancy. Licha l interval follow-up is recommended in 12 months. OVERALL ASSESSMENT - BENIGN END OF IMPRESSION Dictating MD BRAN, SHAWN Morton RADIOLOGIST Shawn Nice MD RAD [facility] documented in this encounter Visit Diagnoses Not on filedocumented in this encounter
--- OUTSIDE RECORDS SUMMARY | 2022-02-21 10:32 | XMS_ITS | Encounter Summary ---
:1935 Author Organization [facility] Address [address] [place] [address] Care Team Providers Name Role Phone Unavailable Primary Care Provider Unavailable Encounter Details Date Type Department Care Team Description 09/07/2004 PN Conversion Only [facility] Bertha Kim MD [address] [place], [place] [address] (Wo rk) Social History Tobacco Use Types Packs/Day Years Used Date Smoking Tobacco: Never Assessed Sex Assigned at Date Recorded Not on file documented as of this encounter Plan of Treatment Not on filedocumented as of this encounter Procedures Procedure Name Priority Date/Time Associated Diagnosis Comme [facility] SURGICAL ROSELINE QUINONEZ Routine 09/07/2004 6:23 AM Omaira hunt for this NICOLLET CDT procedure are i n the results section. documented in this encounter Results Pathology Report (09/07/2004 6:23 AM CDT) [facility] Method Time Signature Surgical SEE TEXT No normal HP CONVERSION Pathology range Comment: Patient: FIDELIA LUNDBERG ?S URGICAL PATHOLOGY REPORT Pathology # ??[id number] ?Date Obtained: ? Date Received: DIAGNOSIS: ?Ultrasound guided needle core biop sy of a suspicious non-palpable area in ?the 9:00 region of the right breas t: ?1. Benign mammary fibrocystic zafar ges (microcystic type) with a few foci ? of usual intraductal epithelia l hyperplasia and multiple foci of ductal ? epithelial apocrine metaplasia . ?2. Focal acute ductal mastitis wit h infiltration of the ductal epithelium ? by neutrophilic leukocytes wit h associated epithelial degenerative and ? reparative changes. ?3. Focal periductal chronic xantho matous mastitis. ?4. Benign breast tissue showing in volutional changes with associated duct ? ectasia and fatty infiltration of the mammary stroma. ?5. NO foci of atypical intraductal epithelial hyperplasia, intraductal ? adenocarcinoma, or invasive du ctal adenocarcinoma of the breast found ? in any of the needle core biop sies of the right breast from this site. ?6. NO foci of atypical lobular hyp erplasia, lobular carcinoma in situ, or ? invasive lobular carcinoma of the breast found in any of the needle ? core biopsies of the right brant ast from this site. ?Nany Britt M.D. ?(electronic signature) ENM/ENM/blm Date of Report: 09/08/04 Pathology # ??[id number] ?Date Obtained: ? Date Received: ORGAN/TISSUE SITE: ?Right breast 9:00 region GROSS DESCRIPTION: ?The specimen is designated ultras ound guided needle core biopsy of a ?suspicious non-palpable lesion in the 9:00 region of the right breast. ?It consists of multiple (12) core- like fragments of focally hemorrhagic ?fatty and fibrofatty breast tissue , which measure approximately 125 mm in ?length (in aggregate) and approxim ately 5 mm in maximum thickness. ?The entire specimen is submitted f or microscopic examination and subserial ?sections will be obtained (2 casse ttes). SHB/dke Specimen (Source) Anatomical Collection Method Collection Time Re ceived Time Location / / Volume Laterality 09/07/2004 6:23 AM CDT Karissa Kim MD LAB_1 Performing Organization Address City/State/ZIP Code Phon e Number HP CONVERSION documented in this encounter Visit Diagnoses Not on filedocumented in this encounter
--- OUTSIDE RECORDS SUMMARY | 2022-02-21 10:32 | XMS_ITS | Encounter Summary ---
:1935 Author Organization [facility] Address [address] [place] [address] Care Team Providers Name Role Phone Allyson Pool PA-C Primary Care Provider Reason for Visit Reason Onset Date Comments Medication Refill Question 10/05/2016 Patient Calling Back 10/05/2016 Encounter Details Date Type Department Care Team Description 10/05/2016 Telephone [facility] Allyson Pool PA-C Medication Refill Medicine [address] [facility] Question; Patient [address] [place] [address] [place] [address] [phone] Social History Tobacco Use Types Packs/Day Years Used Date Smoking Tobacco: Never Smokeless Tobacco: Never Alcohol Use Standard Drinks/Week Comments Yes 0 (1 standard drink = 0.6 oz pure alcoho l) rare occasions Sex Assigned at Date Recorded Not on file documented as of this encounter Nursing Notes Senia Benitez - 10/05/2016 4:01 PM CDT Patient calling back to go over medication and dosing. Advised her of what her and the nurse spoke of. Estrella Vann LPN - 10/05/2016 3:50 PM CDT I called and spoke to Fidelia. She took her pill bottles out and read me the name of medication and dose she is taking of each. AmLODIPine: 5 mg (takes 2.5mg (1/2 tablet) daily) Crestor: 40 mg tablet daily Labetalol: 100 mg (takes 1/2 tab (50mg) in am, and 1 tab (100mg) at hs PARoxetine: 10 mg tablet daily Triamterene-Hydrochlorothiazide: 37.5-25 mg (takes 1/2 tablet daily) Helga Ramos LPN - 10/05/2016 1:57 PM CDT Reason for Call: Medication Request. Next Steps: Document further recommendations and route to appropriate person or pool. Caller IS expecting a call back from Care Team. Additional Information:Patient needs her medications refilled Patient calling, she was seen by PCP on 09/29/16. She thought her medications were going to be refilled? Please refill all medications on her list. Pharmacy verified. Call her back once this has been done. Justin Jones - 10/05/2016 1:49 PM CDT Pt calling in to speak to a nurse about her medications that were ordered at her last OV. Please advise. documented in this encounter Plan of Treatment Not on filedocumented as of this encounter Visit Diagnoses Not on filedocumented in this encounter Care Teams Horse Trekking Guide Relationship Specialty Start Date End Date Allyson Pool PA-C PCP - General Physician Pressure Dispatcher 09/26/16 02/28/21 [address] [place] [id number] documented as of this encounter
--- OUTSIDE RECORDS SUMMARY | 2022-02-21 10:32 | XMS_ITS | Clinical Summary ---
:1935 Author Organization [facility] Address [facility] [facility] [place] [address] Care Team Providers Name Role Phone Allyson Pool Primary Care Provider Guillermo Martinez MD Unavailable Allergies Active Allergy Reactions Severity Noted Date Comments Atorvastatin 09/16/2014 Muscle aches Morphine Nausea and Vomiting 09/16/2014 Medications Medication Sig Dispensed Refills Start Date End Date Status PARoxetine (PAXIL) 10 10 mg 0 Active MG tablet LABETALOL HCL PO Take 100 mg by 0 Active mouth At Bedtime DONEPEZIL HCL PO Take 10 mg by 0 Active mouth daily VITAMIN D, Take 1,000 Units 0 Ac tive CHOLECALCIFEROL, PO by mouth daily order for Equipment being ordered: Walker Wheels ( [id number]) and Walker ([id number]) 1 each 0 05/04/2017 Active DMEIndications: Treatment Diagnosis: Impaired gait stability. Generalized muscle weakness aspirin 81 MG Take 1 tablet (81 30 tablet 0 05/04/2017 Active tabletIndications: mg) by mouth Coronary artery daily disease involving [place] heart with other form of angina pectoris, unspecified vessel or lesion type (H) labetalol (NORMODYNE) Take 1 tablet 150 tablet 3 11/21/2017 Active 100 MG (100 mg) by mouth tabletIndications: 2 times daily Benign essential CORRECT SIMG hypertension (1/2 TAB) IN AM AND 100MG (1 TAB) IN PM nitroGLYcerin Place 1 tablet 25 tablet 1 11/21/2017 Active (NITROSTAT) 0.4 MG (0.4 mg) under sublingual the tongue every tabletIndications: 5 minutes as Coronary artery needed for chest disease involving pain [place] coronary artery of [place] heart without angina pectoris amLODIPine (NORVASC) Take 1 tablet 90 tablet 3 11/21/2017 Active 2.5 MG (2.5 mg) by mouth tabletIndications: every evening Benign essential hypertension rosuvastatin (CRESTOR) Take 1 tablet (40 90 tablet 3 8 Active 40 MG mg) by mouth tabletIndications: daily Mixed hyperlipidemia Active Problems Problem Noted Date Numbness and tingling in both hands 05/02/2017 Acute myocardial infarction of other anterior wall, in itial episode of 10/11/2002 care Overview: with VFib Arrest, SVT immediately after [place] Hyperlipidemia Hypertension CAD (coronary artery disease) History of ventricular tachycardia Obesity History of acute lateral wall IN History of varicose veins Arrhythmia Overview: Pac, Pat GERD (gastroesophageal reflux disease) Family History Medical History Relation Comments Heart Failure Father Other - See Comments Mother Arterial stenosis C.A.D. Son w/ V fib arrest Relation Status Comments Father Mother Son Alive Social History Tobacco Use Types Packs/Day Years [...] Pulse 64 11/21/2017 10:17 AM CDT Temperature 36.8 ??C (98.3 ??F) 05/04/2017 2:42 PM NATIONAL [employer]PELINT ANALYST Respiratory Rate 18 05/04/2017 2:42 PM NATIONAL OPEL[employer] ANALYST Oxygen Saturation 95% 05/04/2017 2:42 PM NATIONAL [employer] ANALYST Inhaled Oxygen Concentration - - Weight 93.3 kg (205 lb 9.6 oz) 11/21/2017 10:17 AM CDT Height 163.8 cm (5' 4.5) 11/21/2017 10:17 AM CDT Body Mass Index 34.75 11/21/2017 10:17 AM CDT Plan of Treatment Not on file Insurance Payer Benefit Plan / Subscriber ID Effective Phone Address T ype Group Dates BC[place] 2016-Prese [phone] [phone] [place] [address] BLUE [place] [id number] 2017-Prese [phone] [address] [place] [phone] [place] [address] [place] [id number] 2017-Prese [phone] [address] [place] [id number] [place] [address] Advance Directives For more information, please contact: [phone] Latest Code Status on File Code Status Date Activated Date Inactivated Comments Full Code 05/04/2017 1:24 PM Code Status History Code Status Date Activated Date Inactivated Comments Full Code 05/02/2017 10:28 PM 05/04/2017 1:24 PM Care Teams Health Care Marketing Specialist Relationship Specialty Start Date End Date Allyson Pool PA PCP - General 04/27/17 [facility] [address] [place] [address] Guillermo Martinez MD MD Cardiology 11/15/17 [address] [place] [id number]
--- OUTSIDE RECORDS SUMMARY | 2022-02-21 10:32 | XMS_ITS | Encounter Summary ---
:1935 Author Organization [employer] Address [address] [place] [address] Care Team Providers Name Role Phone Allyson Pool PA-C Primary Care Provider Reason for Visit Reason Onset Date Comments RESULTS, TEST 11/06/2016 Vitamin D level Encounter Details Date Type Department Care Team Description 11/06/2016 Telephone [facility] Allyson Pool PA-C RESULTS, TEST (Vitamin Medicine [address] D level) [address] [place] [address] [place] [address] [phone] Social History Tobacco Use Types Packs/Day Years Used Date Smoking Tobacco: Never Smokeless Tobacco: Never Alcohol Use Standard Drinks/Week Comments Yes 0 (1 standard drink = 0.6 oz pure alcoho l) rare occasions Sex Assigned at Date Recorded Not on file documented as of this encounter Nursing Notes Estrella Vann LPN - 11/06/2016 10:01 AM CDT Called and advised pt of message below. Pt verbalized understanding. 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 Allyson Pool PA-C - 11/06/2016 7:55 AM CDT Please let patient know that her vitamin D is quite low. I would like her to take a higher dose of vitamin D (ergocaciferol) 50,000 units once a week for 8 weeks. Then I would like her to take daily vitamin D3 (cholecaciferol) thereafter to help maintain her stores. Once she has taken the vitamin D for 4 months she should come back for repeat testing. Sometime on or after March 08. This could explain the low calcium. Allyson Pool PA-C 7:57 AM 11/06/2016 documented in this encounter Plan of Treatment Not on filedocumented as of this encounter Results Vitamin D 25-Hydroxy, Total (05/24/2017 2:23 PM MOTOR GENERATOR SET OPERATOR) athologist Signature Vitamin D 25 Oh 28 20 - 80 PN SOFT ng/mL Comment: Deficiency = <20 Adequate ??= 20-29 Preferred = 30-50 Uncertain safety = 51-80 High = >80 Specimen Anatomical Collection Method Collection Time Receive d Time (Source) Location / / Volume Laterality 05/24/2017 2:23 PM 8 6:12 MOTOR GENERATOR SET OPERATOR PM MOTOR GENERATOR SET OPERATOR Narrative PN SOFT - 05/24/2017 7:32 PM MOTOR GENERATOR SET OPERATOR Performed at [address] [address] CLIA number [id number] Allyson Pool PA-C LAB_1 Performing Organization Address City/State/ZIP Code Phon e Number PN SOFT [address] [place] [address] Intact PTH (12/05/2016 4:03 PM CDT) athologist Signature PTH 83 10 - 100 PN SOFT pg/mL Specimen Anatomical Collection Method Collection Time Receive d Time (Source) Location / / Volume Laterality 12/05/2016 4:03 PM 7 9:11 CDT PM CDT Narrative PN SOFT - 12/05/2016 9:54 PM CDT Performed at [address] [address] CLIA number [id number] Allyson Pool PA-C LAB_1 Performing Organization Address City/State/ZIP Code Phon e Number PN SOFT [address] [place] [address] Calcium (12/05/2016 4:03 PM CDT) athologist Signature Calcium 9.1 8.4 - 10.2 PN SOFT mg/dL Specimen Anatomical Collection Method Collection Time Receive d Time (Source) Location / / Volume Laterality 12/05/2016 4:03 PM 201 7 4:02 CDT PM CDT Narrative PN SOFT - 12/05/2016 4:24 PM CDT Performed at [facility] [address] [place] [address] CLIA number [id number] Allyson Pool PA-C LAB_1 Performing Organization Address City/[facility] Phon e Number PN SOFT [address] [place] [address] documented in this encounter Visit Diagnoses Diagnosis Vitamin D deficiency (HRC) - Primary Unspecified vitamin D deficiency Vitamin D deficiency (HRC) Unspecified vitamin D deficiency Vitamin D deficiency (HRC) Unspecified vitamin D deficiency documented in this encounter Care Teams Organ Fixer Relationship Specialty Start Date End Date Allyson Pool PA-C PCP - General Physician Purchasing Associate 09/26/16 02/28/[address] [place] [id number] documented as of this encounter
--- OUTSIDE RECORDS SUMMARY | 2022-02-21 10:32 | XMS_ITS | Encounter Summary ---
:1935 Author Organization [email or web address] Address [address] [place] [address] Care Team Providers Name Role Phone Allyson Pool PA-C Primary Care Provider Encounter Details Date Type Department Care Team Description 11/01/2016 Lab Visit [facility] Hypocalcemia [address] [place] [address] Social History Tobacco Use Types [...] Date/Time Associated Diagnosis Comme nts VITAMIN D 25-HYDROXY, Routine 11/01/2016 9:04 AM Hypocalcemia Results for this TOTAL CDT procedure are i n the results section. INTACT PTH Routine 11/01/2016 9:04 AM Hypocalcemia Results f or this CDT procedure are i n the results section. COMPLETE BLOOD Routine 11/01/2016 9:04 AM Hypocalcemia Results for this COUNT-W/DIFF CDT procedure are i n the results section. LIVER PANEL(HEPATIC Routine 11/01/2016 9:04 AM Hypocalcemia Re sults for this FUNCTION PANEL) CDT procedure ar e in the results section. BASIC METABOLIC PANEL Routine 11/01/2016 9:04 AM Hypocalcemia Results for this CDT procedure are i n the results section. DIFFERENTIAL Routine 11/01/2016 9:04 AM Results f or this CDT procedure are i n the results section. PROTEIN ELP (SERUM) Routine 11/01/2016 9:04 AM Hypocalcemia Re sults for this CDT procedure are i n the results section. IMMUNOFIXATION, SERUM Routine 11/01/2016 9:04 AM Results for this (IMMUNO ELP) CDT procedure are i n the results section. MAGNESIUM Routine 11/01/2016 9:04 AM Hypocalcemia Results f or this CDT procedure are i n the results section. TSH, SENSITIVE (WITH Routine 11/01/2016 9:04 AM Hypocalcemia R esults for this REFLEX) CDT procedure are i n the results section. VITAMIN B12 ONLY Routine 11/01/2016 9:04 AM Hypocalcemia Resul ts for this CDT procedure are i n the results section. PHOSPHORUS Routine 11/01/2016 9:04 AM Hypocalcemia Results f or this CDT procedure are i n the results section. 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 Signed out by SEE BELOW PN SOFT Comment: Isaias Peres MD Performed at [facility], [address] [place] [address] CLIA Number [id number] Specimen Anatomical Collection Method Collection Time Receive d Time (Source) Location / / Volume Laterality 11/01/2016 9:04 AM 7 CDT 12:28 PM CDT Allyson Pool PA-C LAB_1 Performing Organization Address City/State/ZIP Code Phon e Number PN SOFT [address] [place] [address] [phone] Differential (11/01/2016 9:04 AM CDT) athologist Signature Absolute 3.0 1.8 - 8.0 PN SOFT Neutrophils k/cmm Absolute 2.7 1.1 - 4.0 PN SOFT Lymphocytes k/cmm Absolute 0.5 0.2 - 0.8 PN SOFT Monocytes k/cmm [...] - 11/01/2016 9:17 AM CDT Performed at [facility], [facility] [address] [place] [address] CLIA number [id number] Allyson Pool PA-C LAB_1 Performing Organization Address City/[facility] Phon e Number PN SOFT [address] [place] [address] Liver Panel(Hepatic Function Panel) (11/01/2016 9:04 AM CDT) Patholo gist Method Time Signature Alk Phos 46 [...] - 11/01/2016 10:00 AM CDT Performed at [facility], [facility] [address] [place] [address] CLIA number [id number] Allyson Pool PA-C LAB_1 Performing Organization Address City/[facility] Phon e Number PN SOFT [address] [place] [address] (ABNORMAL) Protein ELP (Serum) (11/01/2016 9:04 AM CDT) P athologist Signature Total Protein 7.3 6.4 - 8.3 PN SOFT g/dl Comment: Performed at [facility], [address] [place] [address] ??[address] Albumin 4.1 3.4 - 4.8 g/dl PN SOFT Alpha 1 0.3 0.2 - 0.5 g/dl PN SOFT Alpha 2 0.8 0.5 - 1.1 g/dl PN SOFT Beta 0.8 0.6 - 1.1 g/dl PN SOFT Gamma 1.4 0.7 - 1.6 g/dl PN SOFT Monoclonal Joaquin 0.5 (H) 0.0 g/dl PN SOFT Comment: IgG [place] Interpretation SEE BELOW PN SOFT Comment: A monoclonal protein has been detected b y serum protein electrophoresis. Signed out by SEE BELOW PN SOFT Comment: Isaias Peres MD Performed at [facility], [address] [place] [address] ??[address] CLIA Number [id number] Specimen Anatomical Collection Method Collection Time Receive d Time (Source) Location / / Volume Laterality 11/01/2016 9:04 AM 7 CDT 12:28 PM CDT Allyson Pool PA-C LAB_1 Performing Organization Address City/[facility] Phon e Number PN SOFT [address] [place] [address] (ABNORMAL) Vitamin D 25-Hydroxy, Total (11/01/2016 9:04 [...] - 11/01/2016 1:26 PM CDT Performed at [address] [address] CLIA number [id number] Allyson Pool PA-C LAB_1 Performing Organization Address [facility] Phon e Number PN SOFT [address] [place] [address] Phosphorus (11/01/2016 9:04 AM CDT) athologist Signature Phosphorus Serum 3.3 2.3 - 4.7 PN SOFT mg/dL Specimen Anatomical Collection Method Collection Time Receive d Time (Source) Location / / Volume Laterality 11/01/2016 9:04 AM 7 9:04 CDT AM CDT Narrative PN SOFT - 11/01/2016 10:00 AM CDT Performed at [facility], [address] [place] [address] CLIA number [id number] Allyson Pool PA-C LAB_1 Performing Organization Address City/[facility] Phon e Number PN SOFT [address] [place] [address] (ABNORMAL) Intact PTH (11/01/2016 9:04 AM CDT) athologist Signature PTH 116 (H) 10 - 100 PN SOFT pg/mL Specimen Anatomical Collection Method Collection Time Receive d Time (Source) Location / / Volume Laterality 11/01/2016 9:04 AM 7 6:26 CDT PM CDT Narrative PN SOFT - 11/01/2016 7:35 PM CDT Performed at [address] [address] CLIA number [id number] Allyson Pool PA-C LAB_1 Performing Organization Address City/[facility] Phon e Number PN SOFT [address] [place] [address] Vitamin B-12 (11/01/2016 9:04 AM CDT) athologist Signature Vitamin B12 288 213 - 816 PN SOFT pg/dL Specimen Anatomical Collection Method Collection Time Receive d Time (Source) Location / / Volume Laterality 11/01/2016 9:04 AM 7 CDT 12:26 PM CDT Narrative PN SOFT - 11/01/2016 1:53 PM CDT Performed at [address] [address] CLIA number [id number] Allyson Pool PA-C LAB_1 Performing Organization Address [facility]/ZIP Code Phon e Number PN SOFT [address] [place] [address] TSH with Free T4 (if TSH Abnormal) (11/01/2016 9:04 AM CDT) athologist Signature Thyroid 1.45 0.30 - PN SOFT Stimulating 4.50 Hormone uIU/mL Specimen Anatomical Collection Method Collection Time Receive d Time (Source) Location / / Volume Laterality 11/01/2016 9:04 AM 7 CDT 12:26 PM CDT Narrative PN SOFT - 11/01/2016 2:33 PM CDT Performed at [address] [address] CLIA number [id number] Allyson Pool PA-C LAB_1 Performing Organization Address [facility] Code Phon e Number PN SOFT [address] [place] [address] Magnesium (11/01/2016 9:04 AM CDT) athologist [facility] Magnesium 2.2 1.6 - 2.6 PN SOFT mg/dL Specimen Anatomical Collection Method Collection Time Receive d Time (Source) Location / / Volume Laterality 11/01/2016 9:04 AM 7 9:04 CDT AM CDT Narrative PN SOFT - 11/01/2016 10:00 AM CDT Performed at [facility], [address] [place] [address] CLIA number [id number] Allyson Pool PA-C LAB_1 Performing Organization Address City/[facility]/ZIP [facility] Phon e Number PN SOFT [address] [place] [address] Basic Metabolic Panel (11/01/2016 9:04 AM CDT) [...] - 11/01/2016 10:00 AM CDT Performed at [facility], [address] [place] [address] CLIA number [id number] Allyson Pool PA-C LAB_1 Performing Organization Address City/State/ZIP Code Phon e Number PN SOFT [address] [place] [address] Complete Blood Count W/Diff (11/01/2016 9:04 AM [...] - 11/01/2016 9:17 AM CDT Performed at [facility], [address] [facility], [place] [address] CLIA number [id number] Allyson Pool PA-C LAB_1 Performing Organization Address City/State/ZIP Code Phon e Number PN SOFT [address] [place] [address] [phone] documented in this encounter Visit Diagnoses Diagnosis Hypocalcemia documented in this encounter Care Teams Pta Relationship Specialty Start Date End Date Allyson Pool PA-C PCP - General Physician Psychology Technician 09/26/16 02/28/[address] [place] [address] documented as of this encounter
--- OUTSIDE RECORDS SUMMARY | 2022-02-21 10:32 | XMS_ITS | Encounter Summary ---
:1935 Author Organization [employer] Address [address] [place] [address] Care Team Providers Name Role Phone Les Fair MD Primary Care Provider Encounter Details Date Type Department Care Team Description 05/14/2014 Imaging [facility] Other screening mammogram [address] [place] [address] Social History Tobacco Use Types Packs/Day Years Used Date Smoking Tobacco: Never Assessed Sex Assigned at Date Recorded Not on file documented as of this encounter Plan of Treatment Not on filedocumented as of this encounter Procedures Procedure Name Priority Date/Time Associated Diagnosis Comme nts MM MAMMOGRAM Routine 05/14/2014 2:02 PM Other screening Result s for this SCREENING BILAT W JOIST SETTER mammogram procedure are in CAD the results section. documented in this encounter Results MM Mammogram Screening Bilat W CAD (05/14/2014 2:02 PM JOIST SETTER) Anatomical Region Laterality Modality Breast Bilateral Mammography Specimen (Source) Anatomical Location Collection Method / Collectio n Time Received Time / Laterality Volume Impressions 05/14/2014 2:15 PM JOIST SETTER : BIRADS 2 Benign Finding(s) (overall) Follow Up Mammogram in 1 year - Danni bhatia The results and recommendations of this examination will be communicated to the [facility] and we will attempt to schedule any recommended imaging follow up with the patient. Narrative 05/14/2014 2:15 PM JOIST SETTER Compared to: 02/25/2013 MM Mammogram Scr eening Bilateral W Cad, 10/12/2011 MM MAMMOGRAM DIGITAL SCRN W CAD, 011 MM MAMMOGRAM DIGITAL SCRN W CAD, 08/20/2005 MM MAMMOGRAM DIAGNOSTIC BILATERAL FINDINGS: Bilateral screening mammogram was performed. The breasts are almost entirely fat (<25% fibroglandular ). A biopsy marker is present in the right breast. No significant mass, calcifications or o ther abnormalities are seen in either breast. Procedure Note Ruben De La Cruz MD - 01/10/2016Form atting of this note might be different from the original. Compared to: 02/25/2013 MM Mammogram Scr eening Bilateral W Cad, 10/12/2011 MM MAMMOGRAM DIGITAL SCRN W CAD, 011 MM MAMMOGRAM DIGITAL SCRN W CAD, 08/20/2005 MM MAMMOGRAM DIAGNOSTIC BILATERAL FINDINGS: Bilateral screening mammogram was performed. The breasts are almost entirely fat (<25% fibroglandular ). A biopsy marker is present in the right breast. No significant mass, calcifications or o ther abnormalities are seen in either breast. IMPRESSION : BIRADS 2 Benign Finding(s) (overall) Follow Up Mammogram in 1 year - Danni bhatia The results and recommendations of this examination will be communicated to the patient by the [facility] and we will attempt to schedule any recommended imaging follow up with the patient. Les Fair MD [facility] documented in this encounter Visit Diagnoses Diagnosis Other screening mammogram documented in this encounter Care Teams Brick Maker Relationship Specialty Start Date End Date Lse Fair MD PCP - General 05/14/14 09/25/16 [address] [place] [address] documented as of this encounter
--- OUTSIDE RECORDS SUMMARY | 2022-02-21 10:32 | XMS_ITS | Encounter Summary ---
:1935 Author Organization [email or web address] Address [address] [place] [address] Care Team Providers Name Role Phone Unavailable Primary Care Provider Unavailable Encounter Details Date Type Department Care Team Description 11/11/2006 PN Conversion Only [facility] [address] [place] [address] Social History Tobacco Use Types Packs/Day Years Used Date Smoking Tobacco: Never Assessed Sex Assigned at Date Recorded Not on file documented as of this encounter Plan of Treatment Not on filedocumented as of this encounter Procedures Procedure Name Priority Date/Time Associated Diagnosis Comme nts MM MAMMOGRAM Routine 11/11/2006 1:56 PM Results f or this SCREENING BILAT W CDT procedure are in CAD the results section. documented in this encounter Results MM Mammogram Screening Bilat W CAD (11/11/2006 1:56 PM CDT) Anatomical Region Laterality Modality Breast Bilateral Mammography Specimen (Source) Anatomical Location Collection Method / Collectio n Time Received Time / Laterality Volume Impressions 11/14/2006 4:02 PM CDT : BILATERAL BREASTS - Category 1 Negative, no evidence of malignancy. Nor mal interval follow-up is recommended in 12 months. OVERALL ASSESSMENT - NEGATIVE END OF IMPRESSION Dictating JOSE TORRES RADIOLOGIST Narrative 11/14/2006 4:02 PM CDT Comparison is made to films from 08/20/2005 (bilateral). Bilateral Breast Findings: There are scattered fibroglandular densi ties. ??No significant masses, calcifications or other abnormalities ar e seen. Procedure Note Jose Thomas MD - 07/19/2016 Comparison is made to films from 006 (bilateral). Bilateral Breast Findings: There are scattered fibroglandular densi ties. No significant masses, calcifications or other abnormalities ar e seen. IMPRESSION : BILATERAL BREASTS - Category 1 Negative, no evidence of malignancy. Nor mal interval follow-up is recommended in 12 months. OVERALL ASSESSMENT - NEGATIVE END OF IMPRESSION Dictating JOSE TORRES RADIOLOGIST Alicia Nice MD [facility] documented in this encounter Visit Diagnoses Not on filedocumented in this encounter
--- OUTSIDE RECORDS SUMMARY | 2022-02-21 10:32 | XMS_ITS | Encounter Summary ---
:1935 Author Organization [employer] Address [address] [place] [address] Care Team Providers Name Role Phone Unavailable Primary Care Provider Unavailable Encounter Details Date Type Department Care Team Description 02/25/2013 Imaging [facility] Other screening mammogram [address] [place] [address] Social History Tobacco Use Types Packs/Day Years Used Date Smoking Tobacco: Never Assessed Sex Assigned at Date Recorded Not on file documented as of this encounter Plan of Treatment Not on filedocumented as of this encounter Procedures Procedure Name Priority Date/Time Associated Diagnosis Comme nts MM MAMMOGRAM Routine 02/25/2013 9:08 AM Other screening Result s for this SCREENING BILAT W CDT mammogram procedure are in CAD the results section. documented in this encounter Results MM Mammogram Screening Bilat W CAD (02/25/2013 9:08 AM CDT) Anatomical Region Laterality Modality Breast Bilateral Mammography Specimen (Source) Anatomical Location Collection Method / Collectio n Time Received Time / Laterality Volume Impressions 02/25/2013 9:57 AM CDT : BIRADS 1 Negative (overall) Follow Up Mammogram in 1 year - Both The results and recommendations of this examination will be communicated to the patient by the [facility] and we will attempt to schedule any recommended imaging follow up with the patient. Narrative 02/25/2013 9:57 AM CDT Compared to: 10/12/2011 MM MAMMOGRAM DIGITAL SCRN W CAD, 09/13/2010 MM MAMMOGRAM DIGITAL SCRN W CAD, 09/06/2009 MM MAMMOGRAM DIGITAL SCRN W CAD Bilateral Breast Findings: The breasts are almost entirely fat (<25 % fibroglandular). No significant mass, calcifications or o ther abnormalities are seen in either breast. Procedure Note Madison Mai MD - 01/03/2016Formatt ing of this note might be different from the original. Compared to: 10/12/2011 MM MAMMOGRAM DIG ITAL SCRN W CAD, 09/13/2010 MM MAMMOGRAM DIGITAL SCRN W CAD, 09/06/2009 MM MAMMOGRAM DIGITAL SCRN W CAD Bilateral Breast Findings: The breasts are almost entirely fat (<25 % fibroglandular). No significant mass, calcifications or o ther abnormalities are seen in either breast. IMPRESSION : BIRADS 1 Negative (overall) Follow Up Mammogram in 1 year - Both The results and recommendations of this examination will be communicated to the patient by the [facility] and we will attempt to schedule any recommended imaging follow up with the patient. Alicia Nice MD [facility] documented in this encounter Visit Diagnoses Diagnosis Other screening mammogram documented in this encounter
--- OUTSIDE RECORDS SUMMARY | 2022-02-21 10:33 | XMS_ITS | Encounter Summary ---
:1935 Author Organization [place] Address [facility] [place] [address] Care Team Providers Name Role Phone Alicia Nice MD Primary Care Provider Unavailable Encounter Details Date Type Department Care Team Description 09/17/2014 Orders Only [facility], Provider Hyperlipid emia (Primary [facility] Not In Dx) [facility]-[address] [place] [address] Social History Tobacco Use Types Packs/Day Years Used Date Smoking Tobacco: Unknown Alcohol Use Standard Drinks/Week Comments Yes 0 (1 standard drink = 0.6 oz pure alcoho l) rarely Sex Assigned at Date Recorded Not on file documented as of this encounter Plan of Treatment Not on filedocumented as of this encounter Procedures Procedure Name Priority Date/Time Associated Diagnosis Comme nts CBC WITH PLATELETS & Routine 01/15/2014 Results for this DIFFERENTIAL procedure are i n the results section . TSH Routine 01/15/2014 Results for thi s procedure are i n the results section . FOLATE Routine 01/15/2014 Results for thi s procedure are i n the results section . COMPREHENSIVE METABOLIC Routine 01/15/2014 Resu lts for this PANEL procedure are i n the results section . VITAMIN B12 Routine 01/15/2014 Results for thi s procedure are i n the results section . documented in this encounter Results (ABNORMAL) CBC with platelets differential (01/15/2014) Analysis Performed At [facility] logist Time Signature WBC 5.2 10^9/L EXTERNAL LAB RBC Count 4.73 10^12/L EXTERNAL LAB Hemoglobin 14.2 11.7 - EXTERNAL LAB 15.7 gm/dL Hematocrit 42.8 % EXTERNAL LAB MCV 90.4 fl EXTERNAL LAB MCH 30.1 pg EXTERNAL LAB MCHC 33.3 g/dL EXTERNAL LAB RDW 15.2 (H) 11.6 - EXTERNAL LAB 14.8 % Platelet Count 155 150 - 450 EXTERNAL LAB 10^9/L % Neutrophils 62.4 % EXTERNAL LAB % Lymphocytes 25.2 % EXTERNAL LAB % Monocytes 8.7 % EXTERNAL LAB % Eosinophils 2.6 % EXTERNAL LAB % Basophils 1.1 % EXTERNAL LAB Specimen (Source) Anatomical Location Collection Method / Collectio n Time Received Time / Laterality Volume Blood specimen 01/15/2014 (specimen) Patient Reported LAB - BLOOD ORDERABLES Performing Organization Address City/State/ZIP Code Phon e Number EXTERNAL LAB EXTERNAL LAB External Lab TSH (01/15/2014) athologist Signature TSH 1.606 mcU/mL EXTERNAL LAB Specimen (Source) Anatomical Location Collection Method / Collectio n Time Received Time / Laterality Volume Blood specimen 01/15/2014 (specimen) Patient Reported LAB - BLOOD ORDERABLES Performing Organization Address City/State/ZIP Code Phon e Number EXTERNAL LAB EXTERNAL LAB External Lab (ABNORMAL) Comprehensive metabolic panel (01/15/2014) [facility] Signature Sodium 141 mmol/L EXTERNAL LAB Potassium 4.1 mmol/L EXTERNAL LAB Chloride 106 mmol/L EXTERNAL LAB CO2, TOTAL mmol/L EXTERNAL LAB Anion Gap mmol/L EXTERNAL LAB Glucose 89 70 - 99 EXTERNAL LAB mg/dL Urea Nitrogen 16.0 mg/dL EXTERNAL LAB Creatinine 0.9 mg/dL EXTERNAL LAB Calcium 8.4 (L) 8.5 - 10.1 EXTERNAL LAB mg/dL Protein Total 6.8 g/dL EXTERNAL LAB Albumin 3.5 g/dL EXTERNAL LAB Bilirubin Total 0.77 mg/dL EXTERNAL LAB Alkaline 41 U/L EXTERNAL LAB Phosphatase AST 16 U/L EXTERNAL LAB ALT 20 U/L EXTERNAL LAB Globulin 3.3 g/dL EXTERNAL LAB Specimen (Source) Anatomical Location Collection Method / Collectio n Time Received Time / Laterality Volume Blood specimen 01/15/2014 (specimen) Patient Reported LAB - BLOOD ORDERABLES Performing Organization Address City/State/ZIP Code Phon e Number EXTERNAL LAB EXTERNAL LAB External Lab Vitamin B12 (01/15/2014) P athologist Signature Vitamin B12 265 pg/mL EXTERNAL LAB Specimen (Source) Anatomical Location Collection Method / Collectio n Time Received Time / Laterality Volume Blood specimen 01/15/2014 (specimen) Patient Reported LAB - BLOOD ORDERABLES Performing Organization Address City/State/ZIP Code Phon e Number EXTERNAL LAB EXTERNAL LAB External Lab Folate (01/15/2014) P athologist Signature Folate 10.2 ng/mL EXTERNAL LAB Specimen (Source) Anatomical Location Collection Method / Collectio n Time Received Time / Laterality Volume Blood specimen 01/15/2014 (specimen) Patient Reported LAB - BLOOD ORDERABLES Performing Organization Address City/State/ZIP Code Phon e Number EXTERNAL LAB EXTERNAL LAB External Lab documented in this encounter Visit Diagnoses Diagnosis Hyperlipidemia - Primary Other and unspecified hyperlipidemia documented in this encounter Care Teams Makeup Artist Relationship Specialty Start Date End Date Alicia Nice MD PCP - General Family Practice 08/25/12 6 documented as of this encounter
--- OUTSIDE RECORDS SUMMARY | 2022-02-21 10:33 | XMS_ITS | Encounter Summary ---
:1935 Author Organization [place] Address [facility] [place] [address] Care Team Providers Name Role Phone [place], [facility] Primary Care Provider [phone] Reason for Referral - Closed Specialty Diagnoses / Procedures Referred By Contact Refer red To Contact Diagnoses Heart murmur Jesús Torres, REAL ESTATE INSTRUCTOR NONPROFIT MANAGER [address] [place] [address] Referral ID Status Reason Start Date Expiration Date Visits Requ ested Visits Authorized [id number] Closed 09/26/2016 09/26/2017 1 1 RONMENTAL ASSOCIATE Reason for Visit Reason Comments Results 6 month f/u, echo completed on 04/16 - Closed Specialty Diagnoses / Procedures Referred By Contact Refer red To Contact Diagnoses Heart murmur Guillermo Martinez MD [address] [place] [address] Referral ID Status Reason Start Date Expiration Date Visits Requ ested Visits Authorized [id number] Closed 04/08/2016 04/08/2017 1 1 Encounter Details Date Type Department Care Team Description 04/20/2016 Office Visit [facility] Guillermo Martinez MD [address] [place] [phone] Heart murmur (Primary Dx); [facility] Jesús Torres, HATTIE NONPROFIT MANAGER [address] [place] [id number] Coronary atherosclerosis due to lipid ri ch plaque (CODE) [address] [place] [id number] Social History Tobacco Use Types Packs/Day Years Used Date Smoking Tobacco: Never Alcohol Use Standard Drinks/Week Comments Yes 0 (1 standard drink = 0.6 oz pure alcoho l) couple per week Sex Assigned at Date Recorded Not on file documented as of this encounter Last Filed Vital Signs Vital Sign Reading Time Taken Comments Blood Pressure 106/68 04/20/2016 1:44 PM ENVIRONMENTAL ASSOCIATE Pulse 72 04/20/2016 1:44 PM ENVIRONMENTAL ASSOCIATE Temperature - - Respiratory Rate - - Oxygen Saturation - - Inhaled Oxygen Concentration - - Weight 93.8 kg (206 lb 11.2 oz) 04/20/2016 1:44 PM ENVIRONMENTAL ASSOCIATE Height 163.8 cm (5' 4.5) 04/20/2016 1:44 PM ENVIRONMENTAL ASSOCIATE Body Mass Index 34.93 04/20/2016 1:44 PM ENVIRONMENTAL ASSOCIATE documented in this encounter Progress Notes Jesús Torres, HATTIE NONPROFIT MANAGER - 04/20/2016 2:32 PM CST HISTORY OF PRESENT ILLNESS: Waqar Lundberg is a delightful 80-year-old female who is here for 6-monthfollowup. In 1980 she had a left circumflex myocardial infarction and continues to have an occluded obtuse marginal 1 branch. In 2002 she presented with chest pressure, anterior wall AR complicated by ventricular fibrillation cardiac arrest. The LAD had a high-grade lesion and at that point was too tortuous to stent. Likely with today's technology we could. She had a nuclear stress test done in 2008 which looked positive for ischemia. We took her to the Home Planning Consultant Salesperson, and she had a 50%-60% narrowing in the LAD and a 50% right coronary lesion -- this was likely a false-positive stress test. She has had no angina. Should we do any surveillance stress testing in the future, Dr. Martinez is suggesting an MRI stress test or an angiogram. She has lost some weight. She has some edema from varicosities. She had a heart murmur apparent at the last office visit, and Dr. Martinez felt this was aortic valve sclerosis, which indeed it is. Thereis no stenoses. Her LV function is 50%-55% with an inferobasal wall motion abnormality likely consistent with her known cardiac anatomy, and she has had wall motion issues there on nuclear testing in the past. Her lipids are controlled. Her electrolytes are normal. She saw her primary care recently for dizziness, but this was transient and resolved. It was more vertiginous than a true lightheaded or presyncopal spell. Otherwise, she is doing fantastic. PHYSICAL EXAMINATION: Her exam is unremarkable. IMPRESSION AND PLAN: 1. Coronary artery disease as outlined above, stable. I did not order a stress test as there is no clinical angina. 2. 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 3. Dyslipidemia, controlled. Continue Crestor 40 mg a day. 4. Hypertension, controlled. 5. Varicosities and vein stripping with mild edema which is chronic and stable. We will see her back for her annual visit in September. As always, it has been a great pleasure caring forthis chemo lady. JESÚS TORRES NP MT: CHRISTIE Name: WAQAR LUNDBERG MRN: [id number] Account: [id number] : 1935 Service Date: 04/20/2016 Document: [id number] RONMENTAL ASSOCIATE Jesús Torres APRN CNP - 04/20/2016 2:24 PM CST HPI and Plan: See dictation [id number] No orders of the defined types were placed in this encounter. No orders of the defined types were placed in this encounter. There are no discontinued medications. Encounter Diagnoses Name Primary? Heart murmur ??? Coronary atherosclerosis due to lipid rich plaque (CODE) Yes CURRENT MEDICATIONS: Current Outpatient Prescriptions Medication Sig Dispense Refill ??? rosuvastatin (CRESTOR) 40 MG tablet Take 1 tablet (40 mg) by mouth daily 90 tablet 3 ??? amLODIPine (NORVASC) 2.5 MG tablet Take 1 tablet (2.5 mg) by mouth daily 90 tablet 4 ??? labetalol (NORMODYNE) 100 MG tablet Take 1 tablet (100 mg) by mouth 2 times daily 180 tablet 4 ??? benazepril (LOTENSIN) 20 MG tablet Take 1 tablet (20 mg) by mouth daily 90 tablet 2 ??? nitroglycerin (NITROSTAT) 0.[address] 1 tablet (0.4 mg) under the tongue every 5 minutes as needed for chest pain 25 tablet 1 ??? PARoxetine (PAXIL) 10 MG tablet Take 5 mg (1/2 tablet) daily ??? aspirin 81 MG tablet Take 81 mg by mouth daily ??? famotidine (PEPCID) 20 MG tablet Take 20 mg by mouth 2 times daily as needed ALLERGIES Allergies Allergen Reactions ??? Atorvastatin Muscle aches ??? Morphine Sulfate [Morphine] Nausea and Vomiting PAST MEDICAL HISTORY: Past Medical History Diagnosis Date ??? Hyperlipidemia ??? Hypertension ??? CAD (coronary artery disease) 1981 unrecognized Lcx AR, 2003 AWMI with VF: Lcx 100% chronic, LAD-POBA (couldn't get a stent down Ca Lad, but f/u cath Lad 60%-likely could rotastent if needed) RCA 50% ??? Obesity ??? History of cellulitis ??? H/O benign breast biopsy ??? History of varicose veins ??? GERD (gastroesophageal reflux disease) ??? Lung nodule followed by pmd ??? Arrhythmia Pac, Pat ??? NONSPECIFIC MEDICAL HISTORY false + nuc gxt PAST SURGICAL HISTORY: Past Surgical History Procedure Laterality Date ??? Appendectomy ??? Cholecystectomy ??? Tonsillectomy ??? C total abdom hysterectomy ??? Strip vein ??? Coronary angiography adult order 11-09-02 PTCR/LAD ??? Coronary angiography adult order 11-16-02 No restenosis of LAD, chronic occluded OM1, 3 vessel disease ??? Coronary angiography adult order 10-24-05 3 vessel disease, ICD not indicated, continue med mgt. ??? Coronary angiography adult order 12-02-08 CAD, occluded OM1, no culprit lesions, no new ischemia, continue med mgt. FAMILY HISTORY: Family History Problem Relation Age of Onset ??? Heart Failure Father 66 ??? Other - See Comments Mother 63 Arterial stenosis ??? C.A.D. Son w/ V fib arrest SOCIAL HISTORY: Social History Social History ??? Marital Status: Spouse Name: N/A ??? Number of Children: N/A ??? Years of Education: N/A Social History Main Topics ??? Smoking status: Never Smoker ??? Smokeless tobacco: None ??? Alcohol Use: 0.0 oz/week 0 Standard drinks or equivalent per week Comment: couple per week ??? Drug Use: None ??? Sexual Activity: Not Asked Other Topics Concern ??? Caffeine Concern No 4-6 cups daily of half and half ??? Sleep Concern No ??? Stress Concern No ??? Weight Concern No ??? Special Diet Yes watching fat intake ??? Exercise Yes walking when shopping ??? Seat Belt Yes Social History Narrative Review of Systems: Skin: Negative Eyes: Positive for glasses ENT: Positive for postnasal drainage Respiratory: Negative Cardiovascular: Negative Gastroenterology: Negative Genitourinary: Positive for nocturia Musculoskeletal: Negative Neurologic: Negative Psychiatric: Negative Heme/Lymph/Imm: Negative Endocrine: Negative Physical Exam: Vitals: BP 106/68 mmHg Pulse 72 Ht 1.638 m (5' 4.5) Wt 93.759 kg (206 lb 11.2 oz) BMI 34.95kg/m2 Constitutional: cooperative, alert and oriented, well developed, well nourished, in no acute distress Skin: warm and dry to the touch, no apparent skin lesions or masses noted Head: normocephalic, no masses or lesions Eyes: pupils equal and round, conjunctivae and lids unremarkable, sclera white, no xanthalasma, EOMSintact, no nystagmus ENT: no pallor or cyanosis, dentition good Neck: carotid pulses are full and equal bilaterally, JVP normal, no carotid bruit, no thyromegaly difficult to feel carotid pulse Chest: normal breath sounds, clear to auscultation, normal A-P diameter, normal symmetry, normal respiratory excursion, no use of accessory muscles Cardiac: regular rhythm;normal S1 and S2 systolic ejection murmur;grade 1 Abdomen: abdomen soft, non-tender, BS normoactive, no mass, no HSM, no bruits surgical scars Vascular: pulses full and equal, no bruits auscultated Extremities and Back: no deformities, clubbing, cyanosis, erythema observed bilateral LE edema;1+ prominant bilat varicose veins LE Neurological: affect appropriate, oriented to time, person and place CC Guillermo Martinez MD [facility] [address] [place] [address] RONMENTAL ASSOCIATE documented in this encounter Plan of Treatment Scheduled Referrals Name Type Priority Associated Diagnoses Order S chedule Follow-Up with Referral Routine Heart murmur Expected: Cooker Tender (Approximate), Expires: 2016 documented as of this encounter Results ALT (10/16/2016 8:18 AM CDT) athologist Signature ALT 22 0 - 50 U/L [facility] Specimen Anatomical Collection Method Collection Time Receive d Time (Source) Location / / Volume Laterality Blood specimen 10/16/2016 8:18 AM 017 8:23 (specimen) CDT AM CDT Jesús Torres APRN, CNP LAB - BLOOD ORDERABLES Performing Organization Address City/State/ZIP Code Phon e Number M [facility] [address] [address] [facility] [address] [phone] Lipid Profile (10/16/2016 8:18 AM CDT) athologist Signature Cholesterol 123 <200 mg/dL [facility] Triglycerides 62 <150 mg/dL [facility] Comment: Fasting specimen HDL Cholesterol 62 >49 mg/dL [facility] LDL Cholesterol Calculated 49 <100 mg/dL [facility] Comment: Desirable: <100 mg/dl Non HDL Cholesterol 61 <130 mg/dL [facility] Specimen Anatomical Collection Method Collection Time Receive d Time (Source) Location / / Volume Laterality Blood specimen 10/16/2016 8:18 AM 017 8:23 (specimen) CDT AM CDT Jesús Torres APRN NONPROFIT MANAGER LAB - BLOOD ORDERABLES Performing Organization Address City/[facility]/ZIP [facility] Phon e Number M [facility] [address] [place], [place] [address] [facility] [address] [phone], [facility] [phone] (ABNORMAL) Basic metabolic panel (10/16/2016 8:18 AM CDT) athologist Signature Sodium 141 133 - 144 [place] mmol/L [facility] Potassium 3.6 3.4 - 5.3 [place] mmolL [facility] Chloride 107 94 - 109 [place] mmol/L [facility] Carbon Dioxide 29 20 - 32 [place] mmolL [facility] Anion Gap 5 3 - 14 [place] mmol/L [facility] Glucose 95 70 - 99 [place] mg/dL [facility] Comment: Fasting specimen Urea Nitrogen 11 7 - 30 mg/dL [facility] Creatinine 0.75 0.52 - 1.04 mg/dL [facility] GFR Estimate 74 >60 mL/min/1.7m2 [facility] Comment: Non GFR Calc GFR Estimate If Black 90 >60 mL/min/1.7m2 [facility] Comment: GFR Calc Calcium 8.1 (L) 8.5 - 10.1 mg/dL [facility] Specimen Anatomical Collection Method Collection Time Receive d Time (Source) Location / / Volume Laterality Blood specimen 10/16/2016 8:18 AM 017 8:23 (specimen) CDT AM CDT Jesús Torres APRN NONPROFIT MANAGER LAB - BLOOD ORDERABLES Performing Organization Address City/[facility]/ZIP [facility] Phon e Arnaud Fink [facility] [address] [place], [place] [address] [facility] [address] [place], [place] [address] [facility] [phone] documented in this encounter Visit Diagnoses Diagnosis Heart murmur - Primary Undiagnosed cardiac murmurs Coronary atherosclerosis due to lipid ri ch plaque (CODE) documented in this encounter Care Teams Audiovisual Aids Technician Relationship Specialty Start Date End Date [facility] PCP - General 12/30/15 10/15/16 [address] [place], [place] [phone] documented as of this encounter
--- OUTSIDE RECORDS SUMMARY | 2022-02-21 10:33 | XMS_ITS | Encounter Summary ---
:1935 Author Organization [place] Address [address] [facility] [place] [address] Care Team Providers Name Role Phone Les Fair MD Primary Care Provider Reason for Visit (Routine) - Closed Specialty Diagnoses / Procedures Referred By Contact Refer red To Contact Radiology / Diagnoses [facility] clinic Guillermo Martinez, Rh Ultrasound [facility] Radiology. Procedures US CAROTID BILATERAL [address] [place] [phone] Fax: Referral ID Status Reason Start Date Expiration Date Visits Requ ested Visits Authorized [id number] Closed 09/08/2015 09/07/2016 1 1 Encounter Details Date Type Department Care Team Description 10/03/2015 Hospital Encounter M [facility] Guillermo Martinez myocardial [place] Specialty MD Aleks [facility] [address] anterior wall, [address] initial episode of [address] [place], [place] care (H) [place] [phone] Social History Tobacco Use Types Packs/Day Years Used Date Smoking Tobacco: Never Alcohol Use Standard Drinks/Week Comments Yes 0 (1 standard drink = 0.6 oz pure alcoho l) couple per week Sex Assigned at Date Recorded Not on file documented as of this encounter Medications at Time of Discharge Medication Sig Dispensed Refills Start Date End Date PARoxetine (PAXIL) 10 MG 10 mg 0 tablet amLODIPine (NORVASC) 2.5 Take 1 tablet (2.5 90 tablet 4 04/201505/02/2017 MG tabletIndications: mg) by mouth daily Essential hypertension, benign aspirin 81 MG tablet Take 81 mg by 0 1 07/03/2016 mouth daily benazepril (LOTENSIN) 20 Take 1 tablet (20 90 tablet 2 09/1005/02/2017 MG tabletIndications: mg) by mouth daily Essential hypertension famotidine (PEPCID) 20 MG Take 20 mg by 0 05/02/2017 tablet mouth 2 times daily as needed labetalol (NORMODYNE) 100 Take 1 tablet (100 180 tablet 4 05/02/2017 MG tabletIndications: mg) by mouth 2 Coronary artery disease times daily due to lipid rich plaque nitroglycerin (NITROSTAT) Place 1 tablet 25 tablet 1 201411/21/2017 0.4 MG SL (0.4 mg) under the tabletIndications: Acute tongue every 5 myocardial infarction of minutes as needed other anterior wall, for chest pain initial episode of care rosuvastatin (CRESTOR) 40 Take 1 tablet (40 90 tablet 3 04/201511/22/2015 MG tabletIndications: mg) by mouth daily Mixed hyperlipidemia documented as of this encounter Plan of Treatment Not on filedocumented as of this encounter Procedures Procedure Name Priority Date/Time Associated Diagnosis Comme nts US CAROTID Routine 10/03/2015 8:50 AM Acute myocardial Resul ts for this BILATERAL CDT infarction of procedure are in anterior wall, the results initial episode of section. care (H) documented in this encounter Results US Carotid Bilateral (10/03/2015 8:50 AM CDT) Anatomical Region Laterality Modality Vascular, Head Ultrasound Specimen (Source) Anatomical Location Collection Method / Collectio n Time Received Time / Laterality Volume Impressions 10/03/2015 10:08 AM CDT IMPRESSION: Less than 50% stenosis at both carotid bifurcations. NICOLLE VELARDE MD Narrative 10/03/2015 10:08 AM CDT ULTRASOUND CAROTID BILATERAL October 03, 2015 8:50 AM HISTORY: Decreased palpation of carotid pulses. ST elevation (STEMI) myocardial infarction involving other co ronary artery of anterior wall. COMPARISON: None. RIGHT CAROTID FINDINGS: There is mild at herosclerotic plaque in the carotid bifurcation. Right ICA PSV: 98 ??cm/sec. Right ICA/CCA PSV Ratio: 1.09. ?? These indicate less than 50% diameter st enosis of the right ICA relative to the distal ICA. ?? Right Vertebral: Antegrade flow. Right ECA: Antegrade flow. LEFT CAROTID FINDINGS: There is mild ath erosclerotic plaque in the carotid bifurcation. Left ICA PSV: 107 ??cm/sec. Left ICA/CCA PSV Ratio: ??1.26. ?? These indicate less than 50% diameter st enosis of the left ICA relative to the distal ICA. Left Vertebral: Antegrade flow. Left ECA: Antegrade flow. Causes of Decreased Accuracy: None. Procedure Note Kory Velarde MD - 10/03/2015For matting of this note might be different from the original. ULTRASOUND CAROTID BILATERAL October 02 8:50 AM HISTORY: Decreased palpation of carotid pulses. ST elevation (STEMI) myocardial infarction involving other co ronary artery of anterior wall. COMPARISON: None. RIGHT CAROTID FINDINGS: There is mild at herosclerotic plaque in the carotid bifurcation. Right ICA PSV: 98 cm/sec. Right ICA/CCA PSV Ratio: 1.09. These indicate less than 50% diameter st enosis of the right ICA relative to the distal ICA. Right Vertebral: Antegrade flow. Right ECA: Antegrade flow. LEFT CAROTID FINDINGS: There is mild ath erosclerotic plaque in the carotid bifurcation. Left ICA PSV: 107 cm/sec. Left ICA/CCA PSV Ratio: 1.26. These indicate less than 50% diameter st enosis of the left ICA relative to the distal ICA. Left Vertebral: Antegrade flow. Left ECA: Antegrade flow. Causes of Decreased Accuracy: None. IMPRESSION: Less than 50% stenosis at pool th carotid bifurcations. NICOLLE VELARDE MD Guillermo Martinez MD IMG US ORDERABLES documented in this encounter Visit Diagnoses Diagnosis Acute myocardial infarction of anterior wall, initial episode of care (H) Acute myocardial infarction of other ant erior wall, initial episode of care documented in this encounter Care Teams Health Information Coder Relationship Specialty Start Date End Date Les Fair MD PCP - General Family Practice 08/23/15 12/29/15 [address] [place] [address] documented as of this encounter
--- OUTSIDE RECORDS SUMMARY | 2022-02-21 10:33 | XMS_ITS | Encounter Summary ---
:1935 Author Organization [place] Address [address] [facility] [place] [address] Care Team Providers Name Role Phone Allyson Pool Primary Care Provider Encounter Details Date Type Department Care Team Description 05/28/2017 Documentation Only [facility] and Allyson Pool [place] [address] [place], [place] [address] [phone] Social History Tobacco Use Types Packs/Day Years [...] on filedocumented in this encounter Care Teams Electrical Project Engineer Relationship Specialty Start Date End Date Allyson Pool PA PCP - General 04/27/17 [facility] [address] [place] [address] documented as of this encounter
--- OUTSIDE RECORDS SUMMARY | 2022-02-21 10:33 | XMS_ITS | Encounter Summary ---
:1935 Author Organization [place] Address [facility] [place] [address] Care Team Providers Name Role Phone Alicia Nice MD Primary Care Provider Unavailable Encounter Details Date Type Department Care Team Description 09/21/2014 Orders Only [facility] Heart [facility] ntial hypertension, benign; Clinic [place] Coronary atherosclerosis of unspecified type of vessel, [place] or graft [address] [place] [address] Social History Tobacco Use Types [...] Associated Diagnosis Comme nts LIPID PROFILE STAT 09/21/2014 8:02 AM Coronary Results for this CDT atherosclerosis of procedure are in unspecified type of the resu lts vessel, [place] or graft sect ion. ALT STAT 09/21/2014 8:02 AM Coronary Results f or this CDT atherosclerosis of procedure are in unspecified type of the resu lts vessel, [place] or graft sect ion. BASIC METABOLIC STAT 09/21/2014 8:02 AM Essential hypertens ion, Results for this PANEL CDT benign procedure are i n the results section. documented in this encounter Results ALT (09/21/2014 8:02 AM CDT) athologist Signature ALT 22 0 - 50 U/L [facility] Specimen Anatomical Collection Method Collection Time Receive d Time (Source) Location / / Volume Laterality Blood specimen 09/21/2014 8:02 AM 015 8:03 (specimen) CDT AM CDT Guillermo Martinez MD LAB - BLOOD ORDERABLES Performing Organization Address City/[facility]/ZIP [place] [facility] susy Lares [facility] [address] [place], [place] [address] [facility] [address] [place] [address], [facility] [phone] Lipid Profile (09/21/2014 8:02 AM CDT) athologist Signature Cholesterol 135 <200 mg/dL [facility] Comment: LDL Cholesterol is the primary guide to therapy. The NCEP recommends further evaluation of: patients with cholesterol greater than 200 mg/dL if additional risk facto rs are present, cholesterol greater than 240 mg/dL, triglycerides greater than 1 50 mg/dL, or HDL less than 40 mg/dL. Triglycerides 100 0 - 150 mg/dL [facility] Comment: Fasting specimen HDL Cholesterol 57 >50 mg/dL [facility] LDL Cholesterol Calculated 58 0 - 129 mg/dL [facility] Comment: LDL Cholesterol is the primary guide to therapy: LDL-cholesterol goal in high risk patients is <100 mg/dL and in very high risk patients is <70 mg/dL. VLDL-Cholesterol 20 0 - 30 mg/dL [facility] Cholesterol/HDL Ratio 2.4 0.0 - 5.0 [facility] Specimen Anatomical Collection Method Collection Time Receive d Time (Source) Location / / Volume Laterality Blood specimen 09/21/2014 8:02 AM 015 8:03 (specimen) CDT AM CDT Guillermo Martinez MD LAB - BLOOD ORDERABLES Performing Organization Address City/[facility]/ZIP Code Phon susy Lares [facility] [address] [place], [place] [address] [facility] [address] [place] [address], [facility] [phone] (ABNORMAL) Basic metabolic panel (09/21/2014 8:02 AM CDT) athologist Signature Sodium 139 133 - 144 [place] mmol/L [facility] Potassium 3.3 (L) 3.4 - 5.3 [place] mmol/L [facility] Chloride 105 94 - 109 [place] mmol/L [facility] Carbon Dioxide 30 20 - 32 [place] mmol/L [facility] Anion Gap 4 3 - 14 [place] mmol/L [facility] Glucose 81 70 - 99 [place] mg/dL [facility] Urea Nitrogen 12 7 - 30 [place] mg/dL [facility] Creatinine 0.84 0.52 - [place] 1.04 mg/dL [facility] GFR Estimate 66 >60 [place] mL/min/1.[address] Comment: Non GFR Calc GFR Estimate If Black 79 >60 mL/min/1.7m2 F [facility] Comment: GFR Calc Calcium 8.2 (L) 8.5 - 10.1 mg/dL [facility] Specimen Anatomical Collection Method Collection Time Receive d Time (Source) Location / / Volume Laterality Blood specimen 09/21/2014 8:02 AM 015 8:03 (specimen) CDT AM CDT Guillermo Martinez MD LAB - BLOOD ORDERABLES Performing Organization Address City/State/ZIP Code Phon e Number M [facility] [address] [place] [address] [facility] [address] [phone] documented in this encounter Visit Diagnoses Diagnosis Essential hypertension, benign Coronary atherosclerosis of unspecified type of vessel, [place] or graft documented in this encounter Care Teams Polysilicon Preparation Worker Relationship Specialty Start Date End Date Alicia Nice MD PCP - General Family Practice 08/25/12 6 documented as of this encounter
--- OUTSIDE RECORDS SUMMARY | 2022-02-21 10:33 | XMS_ITS | Encounter Summary ---
:1935 Author Organization [place] Address [address] [place] [address] Care Team Providers Name Role Phone [place], [facility] Primary Care Provider [phone] Reason for Visit Reason Comments Hematuria Encounter Details Date Type Department Care Team Description 12/30/2015 Emergency [facility] Marbin Quinn MD Gross hematuria Emergency Dept [facility] [address] [facility] [address] [place], [place] [address] [phone] Social History Tobacco Use Types Packs/Day Years Used Date Smoking Tobacco: Never Alcohol Use Standard Drinks/Week Comments Yes 0 (1 standard drink = 0.6 oz pure alcoho l) couple per week Sex Assigned at Date Recorded Not on file documented as of this encounter Last Filed Vital Signs Vital Sign Reading Time Taken Comments Blood Pressure 142/85 12/30/2015 2:23 PM CDT Pulse 74 12/30/2015 12:00 PM CDT Temperature 36.2 ??C (97.1 ??F) 12/30/2015 12:00 PM CDT Respiratory Rate 18 12/30/2015 2:23 PM CDT Oxygen Saturation 96% 12/30/2015 2:23 PM CDT Inhaled Oxygen Concentration - - Weight 96.6 kg (213 lb) 12/30/2015 12:00 PM CDT Height 165.1 cm (5' 5) 12/30/2015 12:00 PM CDT Body Mass Index 35.45 12/30/2015 12:00 PM CDT documented in this encounter Discharge Instructions Discharge InstructionsMarbin Del Real MD - 12/30/2015 1:42 PM CDT Images from the original note were not included. Blood In The Urine Blood in the urine (hematuria) has many possible causes. If it occurs after an injury (such as a car accident or fall), it is most often a sign of bruising to the kidney or bladder. Common medical causes of blood in the urine include urinary tract infection, kidney stone, inflammation, tumors, or certain other diseases of the kidney or bladder. Menstruation can cause blood to appear in the urine sample, although it is not coming from the urinary tract. If only a trace amount of blood is present, it will show up on the urine test, even though the urinemay be yellow and not pink or red. This may occur with any of the above conditions, as well as heavyexercise or high fever. In this case, your doctor may want to repeat the urine test on another day. This will show if the blood is still present. If so, then other tests can be done to find out the cause. Home Care: 1. If your urine does not appear bloody (pink, brown or red) then you do not need to restrict your activity in any way. 2. If you can see blood in your urine, rest and avoid heavy exertion until your next exam. Do not use aspirin or anti-inflammatory medicine like ibuprofen (Motrin, Advil) or naproxen (Naprosyn, Aleve).These thin the blood and may increase bleeding. Follow Up with your doctor or as advised by our staff. If you were injured and had blood in your urine, you should have a repeat urine test in 1-2 days. Contact your doctor or return to this facility for this test. [NOTE: A radiologist will review any X-rays that were taken. We will notify you of any new findings that may affect your care.] Get Prompt Medical Attention if any of the following occur: ?? Bright red blood or blood clots in the urine (if a new symptom) ?? Weakness, dizziness or fainting ?? New groin, abdominal or back pain ?? Fever of 100.4??F (38??C) or higher, or as directed by your healthcare provider ?? Repeated vomiting ?? Bleeding from nose, gums or easy bruising ?? [id number] [employer] [place] [address]. All rights reserved. This information is not intended as a substitute for professional medical care. Always follow your healthcare professional's instructions. documented in this encounter Medications at Time [...] Take 1 tablet (40 90 tablet 3 04/201611/21/2017 MG tabletIndications: mg) by mouth daily Mixed hyperlipidemia documented as of this encounter ED Notes Shelley Zapata - 12/30/2015 2:23 PM CDT Patient discharged to home. Patient received follow-up information with urology. Patient received discharge instructions and has no other questions at this time. Marbin Del Real MD - 12/30/2015 12:15 PM CDT History Chief Complaint: Hematuria HPI Fidelia Vyas is a 80 year old female who presents for evaluation of hematuria. This morning, the patient started to develop significant hematuria with clotted blood, dysuria, urinary frequency, urinary urgency, and minor lower back pain. She has additionally notes some nausea and vomiting, which she attributes to a reflux issue but nothing new. Otherwise, she has not experienced any fever, bloody stools, or hemoptysis in association with her current symptoms. 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 Allergies: Atorvastatin - Myalgias Morphine sulfate - Nausea and vomiting Medications: rosuvastatin (CRESTOR) 40 MG tablet amLODIPine (NORVASC) 2.5 MG tablet labetalol (NORMODYNE) 100 MG tablet benazepril (LOTENSIN) 20 MG tablet nitroglycerin (NITROSTAT) 0.4 MG SL tablet PARoxetine (PAXIL) 10 MG tablet aspirin 81 MG tablet famotidine (PEPCID) 20 MG tablet Past Medical History: Hypertension Hyperlipidemia CAD Ventricular tachycardia Myocardial infarction Past Surgical History: Appendectomy Cholecystectomy Tonsillectomy Total abdominal hysterectomy Strip vein Coronary angiography x4 Family History: CAD - Son Heart failure - Father Arterial stenosis - Mother Social History: Tobacco use: Never smoker Alcohol use: Positive Marital status: Accompanied to ED by: Alone Review of Systems Constitutional: Negative for fever. Respiratory: Negative for cough. Gastrointestinal: Positive for nausea and vomiting. Negative for blood in stool. Genitourinary: Positive for dysuria, urgency, frequency and hematuria. Musculoskeletal: Positive for back pain. All other systems reviewed and are negative. Physical Exam First Vitals: BP: (!) 160/100 mmHg Pulse: 74 Temp: 97.1 ??F (36.2 ??C) Resp: 18 Height: 165.1 cm (5' 5) Weight: 96.616 kg (213 lb) SpO2: 95 % Physical Exam Constitutional: Pleasant, age appropriate. Resting comfortably in the bed. Eyes: Conjunctiva normal Neck: Supple, no meningismus. CV: Regular rate and rhythm. No murmurs, rubs or gallops. No lower extremity edema. PULM: Clear to auscultation bilaterally. No respiratory distress. Good air exchange. No rales or wheezing. No stridor. ABD: Soft, non-distended. Minimal tenderness in the midline low abdomen. Bowel sounds normal. No pulsatile masses. No rebound, guarding or rigidity. No CVA tenderness. . MSK: No gross deformity to all four extremities. LYMPH: No cervical lymphadenopathy. NEURO: Alert. Good muscular tone, no atrophy. Strength is equal and symmetric. Skin: Warm, dry and intact. Psych: Mood is good and affect is appropriate. Emergency Department Course Laboratory: UA with Microscopic: Small urinebilin, Urineketon 5, Large blood, Protein albumin >600, RBC >182 high, Squamous epithelial 72 high, o/w Negative Interventions: 1425 Pyridium 200 mg PO Emergency Department Course: Nursing notes and vitals reviewed. 1215: I performed an exam of the patient as documented above. 1325: I updated and reassessed the patient. I personally reviewed the laboratory results with the Patient and answered all related questions prior to discharge. Findings and plan explained to the Patient. Patient discharged home with instructions regarding supportive care, medications, and reasons to return. The importance of close follow-up was reviewed. Impression & Plan Medical Decision Making: Fidelia Vyas is a 80 year old female seen in the emergency department with urinary symptoms including hematuria. Urinalysis was obtained and shows no signs of infection and blood only, thus ruling out hemorrhagic cystitis. She has no other clinical signs of bleeding to indicate bleeding diathesis. She is not on any oral anticoagulants and has no signs of urinary retention related to the bleeding. Differential diagnosis would include ruptured vessel, malignancy, mass, or polyp. . Will focus on supportive treatment. Follow up with urology in 3-5 days. If bleeding continues she may necessitate cystoscopy. The patient is safe for discharge home. Diagnosis: ICD-10-CM 1. Gross hematuria R31.0 Disposition: Discharged to home Alex Artis, am serving as a scribe at 12:15 PM on 12/30/2015 to document services personally performed by Dr. Del Real, based on my observations and the provider's statements to me. [facility] EMERGENCY DEPARTMENT Marbin Del Real MD 12/31/15 0736 Argentina Quintero RN - 12/30/2015 12:01 PM CDT In Triage: ABC's intact. Alert and oriented x 3. Pt reports urinary frequency, urgency and blood in urine that started this morning. States she thinks she has a bladder infection. documented in this encounter Plan of Treatment Not on filedocumented as of this encounter Procedures Procedure Name Priority Date/Time Associated Comments Diagnosis ROUTINE UA WITH Routine 12/30/2015 12:03 Results for this MICROSCOPIC PM CDT procedure are i n the results section. documented in this encounter Results (ABNORMAL) UA with Microscopic (12/30/2015 12:03 PM CDT) Component Value Ref Test Analysis Performed At [facility] Range Method Time Signature Color Urine Red [facility] Appearance Urine Cloudy [facility] Glucose Urine Negative [place]G [place] mg/dL [facility] Bilirubin Urine Small [place]G [place] This is an unconfirmed screening test r esult. A positive result may be false. [facility] Ketones Urine 5 (A) NEG [place] mg/dL [facility] Specific [place] 1.020 1.003 - [place] Urine 1.035 [facility] Blood Urine Large (A) NEG [facility] pH Urine 6.5 5.0 - [place] 7.0 pH [facility] Protein Albumin >600 [facility]G [place] Urine Quantity not sufficient mg/dL [facility] TO CHECK FOR FAT [facility] () Urobilinogen Normal 0.0 - [place] mg/dL 2.0 [facility] mg/dL [facility] Nitrite Urine Negative NEG [facility] Leukocyte Negative [place] [place] Esterase Urine [facility] Source Midstream Urine [facility] WBC Urine 0 0 - 2 [place] /HPF [facility] RBC Urine >182 (H) 0 - 2 [facility] /HPF [facility] Squamous 72 (H) 0 - 1 [facility] Epithelial /HPF /HPF [facility] Specimen Anatomical Collection Method Collection Time Receive d Time (Source) Location / / Volume Laterality Urine specimen URINE SPECIMEN 12/30/2015 12:03 016 (specimen) OBTAINED BY CLEAN PM CDT 12:19 PM C DT CATCH PROCEDURE / Unknown Estrella Worthington MD LAB - URINE ORDERABLES Performing Organization Address City/State/ZIP Code Phon e Number M [facility] [address] [place], [place] [address] [facility] [address] [place], [place] [address] [facility] [phone] documented in this encounter Visit Diagnoses Diagnosis Gross hematuria documented in this encounter Administered Medications Inactive Administered Medications - up to 3 most recent administrations Medication Order MAR Action Action Date Dose Rate Site phenazopyridine (PYRIDIUM) tablet Given 12/30/2015 2:25 PM CDT 2 00 mg 200 mg 200 mg, Oral, ONCE, On Sat12/30/15 at 1222, For 1 dose documented in this encounter Active and Recently Administered Medications Times are shown in CDT. Scheduled Medication Order 12/28/2015 12/29/2015 12/30/2015 phenazopyridine (PYRIDIUM) tablet 200 mg (COMPLETED) 1425 (Given - Provider: Shelley Zapata) 200 mg, Oral, ONCE, Sat12/30/15 at 1222, For 1 dose documented in this encounter Care Teams Government Affairs Manager Relationship Specialty Start Date End Date [facility] PCP - General 12/30/15 10/15/16 [address] [place], [place] [phone] documented as of this encounter
--- OUTSIDE RECORDS SUMMARY | 2022-02-21 10:33 | XMS_ITS | Encounter Summary ---
:1935 Author Organization [place] Address [address] [facility] [place] [address] Care Team Providers Name Role Phone [place], [facility] Primary Care Provider [phone] Reason for Visit (Routine) - Closed Specialty Diagnoses / Procedures Referred By Contact Refer red To Contact Cardiology Diagnoses per serene Aortic murmur 01/30 [facility] Echo cc Procedures [facility] [address] [place], [place] [address] Phone: Fax: Referral ID Status Reason Start Date Expiration Date Visits Requ ested Visits Authorized [id number] Closed 04/12/2016 04/12/2017 1 1 Encounter Details Date Type Department Care Team Description 04/16/2016 Hospital Encounter [facility] Guillermo Kline , Heart murmur [facility] Heart MD Care [address] [facility] [address] [place] [phone] [phone] Social History Tobacco Use Types Packs/Day Years [...] Name Priority Date/Time Associated Diagnosis Comme nts ECHO COMPLETE WITH Routine 04/16/2016 9:49 AM Heart murmur Res ults for this OPTISON STEREOTYPE FINISHER procedure are i n the results section. documented in this encounter Results ECHO COMPLETE WITH OPTISON (04/16/2016 9:49 AM STEREOTYPE FINISHER) Anatomical Region Laterality Modality Echocardiography Specimen (Source) Anatomical Collection Method Collection Time Re ceived Time Location / / Volume Laterality 04/16/2016 9:05 AM STEREOTYPE FINISHER Narrative 04/16/2016 12:22 PM STEREOTYPE FINISHER Interpretation Summary [facility] Echocardiography Laboratory [address] [place] [id number] Name: FIDELIA LUNDBERG : 1935 Study Date: 04/16/2016 09:05 AM Age: 80 yrs Gender: Female Patient [place]: [facility] Reason For Study: , Cardiac murmur, unsp ecified Ordering Physician: GUILLERMO KLINE Referring Physician: Zahida Walker Ce nter Performed By: Stephanie Ramos BSA: 2.0 m2 Height: 65 in Weight: 213 lb HR: 60 BP: 130/70 mmHg Procedure Complete Echo Adult. Contrast Optison. Interpretation Summary technically difficult study inferior bas ilar wall appears hypokinetic. LVEF low normal 50-55% The ascending aorta is Borderline dilate d. Normal valvular function Optison contras t was used without apparent complications. There is no comparison st udy available. The study was technically difficult. Left Ventricle The left ventricle is normal in size. Th ere is normal left ventricular wall thickness. technically difficult study i nferior basilar wall appears hypokinetic. LVEF low normal 50-55%. The transmitral spectral Doppler flow pattern is suggestive of impaired LV rel axation. Right Ventricle The right ventricle is normal in structu re, function and size. Atria Normal left atrial size. Right atrial si ze is normal. There is no atrial shunt seen. Mitral Valve There is mild mitral annular calcificati on. There is no mitral regurgitation noted. Tricuspid Valve The tricuspid valve is normal in structu re and function. No tricuspid regurgitation. Aortic Valve There is mild trileaflet aortic sclerosi s. No aortic regurgitation is present. The peak AoV pressure gradient is 9.3 mmHg. Pulmonic Valve The pulmonic valve is not well seen, but is grossly normal. Vessels The aortic root is normal size. The asce nding aorta is Borderline dilated. The IVC is [...] sec Lateral E/e': 12.4 Medial E/e': 18.8 Report approved by: Chen Hogan 04/16/2016 12:22 PM Procedure Note Justin Morse MD - 04/16/2016Fo rmatting of this note might be different from the original. Interpretation Summary [facility] Echocardiography [facility] [address] [facility] [place] [address] Name: FIDELIA LUNDBERG : 1935 Study Date: 04/16/2016 09:05 AM Age: 80 yrs Gender: Female Patient Location: [facility] Reason For Study: , Cardiac murmur, unsp ecified Ordering Physician: GUILLERMO KLINE Referring Physician: Zahida Magallanes nter Performed By: Stephanie Ramos BSA: 2.0 m2 Height: 65 in Weight: 213 lb HR: 60 BP: 130/70 mmHg Procedure Complete Echo Adult. Contrast Optison. Interpretation Summary technically difficult study inferior bas ilar wall appears hypokinetic. LVEF low normal 50-55% The ascending aorta is Borderline dilate d. Normal valvular function Optison contras t was used without apparent complications. There is no comparison st udy available. The study was technically difficult. Left Ventricle The left ventricle is normal in size. Th ere is normal left ventricular wall thickness. technically difficult study i nferior basilar wall appears hypokinetic. LVEF low normal 50-55%. The transmitral spectral Doppler flow pattern is suggestive of impaired LV rel axation. Right Ventricle The right ventricle is normal in structu re, function and size. Atria Normal left atrial size. Right atrial si ze is normal. There is no atrial shunt seen. Mitral Valve There is mild mitral annular calcificati on. There is no mitral regurgitation noted. Tricuspid Valve The tricuspid valve is normal in structu re and function. No tricuspid regurgitation. Aortic Valve There is mild trileaflet aortic sclerosi s. No aortic regurgitation is present. The peak AoV pressure gradient is 9.3 mmHg. Pulmonic Valve The pulmonic valve is not well seen, but is grossly normal. Vessels The aortic root is normal size. The asce nding aorta is Borderline dilated. The IVC is [...] sec Lateral E/e': 12.4 Medial E/e': 18.8 Report approved by: Chen Hogan 04/16/2016 12:22 PM Guillermo Kline MD CV ECHO ORDERABLES documented in this encounter Visit Diagnoses Diagnosis Heart murmur Undiagnosed cardiac murmurs documented in this encounter Administered Medications Inactive Administered Medications - up to 3 most recent administrations Medication Order MAR Action Action Date Dose Rate Site perflutren diluted 1mL to 1mL with Given 04/16/2016 9:50 AM STEREOTYPE FINISHER 6 mLs saline (OPTISON) diluted injection 6 mL 6 mL, Intravenous, ONCE, On Sat04/16/16 at 1000, For 1 dose sodium chloride (PF) 0.9% PF flush 10 mL Given 04/16/2016 9:50 AM STEREOTYPE FINISHER 10 mLs 10 mL, Intracatheter, EVERY 8 HOURS, First dose on Sat04/16/16 at 1000 documented in this encounter Care Teams Molder Vacuum Relationship Specialty Start Date End Date [facility] Medical PCP - General 12/30/15 10/15/16 [address] [place], [place] [phone] documented as of this encounter
--- OUTSIDE RECORDS SUMMARY | 2022-02-21 10:33 | XMS_ITS | Encounter Summary ---
:1935 Author Organization [place] Address [address] [facility] [place] [address] Care Team Providers Name Role Phone Les Fair MD Primary Care Provider Reason for Visit Reason Onset Date Comments Refill Request 11/22/2015 [facility] OV 09/2015 Encounter Details Date Type Department Care Team Description 11/22/2015 Refill [facility] Guillermo Martinez , Refill Request ([facility] Karina EVANGELISTA OV 09/2015) [address] [place] [address] [place] [phone] (Wo rk) Social History Tobacco Use Types Packs/Day Years Used Date Smoking Tobacco: Never Alcohol Use Standard Drinks/Week Comments Yes 0 (1 standard drink = 0.6 oz pure alcoho l) couple per week Sex Assigned at Date Recorded Not on file documented as of this encounter Plan of Treatment Not on filedocumented as of this encounter Visit Diagnoses Diagnosis Mixed hyperlipidemia - Primary documented in this encounter Care Teams Product Development Ecologist Relationship Specialty Start Date End Date Les Fiar MD PCP - General Family Practice 08/23/15 12/29/15 [address] [place] [address] documented as of this encounter
--- OUTSIDE RECORDS SUMMARY | 2022-02-21 10:33 | XMS_ITS | Encounter Summary ---
:1935 Author Organization [place] Address [address] [facility] [place] [address] Care Team Providers Name Role Phone Les Fair MD Primary Care Provider Encounter Details Date Type Department Care Team Description 10/03/2015 [facility] Heart Acut e myocardial Clinic [place] infarction of anterior [address], initial episode of 140 care (H) [place] [address] Social History Tobacco Use [...] Date/Time Associated Diagnosis Comme nts LIPID PROFILE Routine 10/03/2015 8:17 AM Acute myocardial Resu lts for this CDT infarction of procedure are in anterior wall, the results initial episode of section. care (H) ALT Routine 10/03/2015 8:17 AM Acute myocardial Resul ts for this CDT infarction of procedure are in anterior wall, the results initial episode of section. care (H) BASIC METABOLIC Routine 10/03/2015 8:17 AM Acute myocardial Re sults for this PANEL CDT infarction of procedure are in anterior wall, the results initial episode of section. care (H) documented in this encounter Results (ABNORMAL) Basic metabolic panel (10/03/2015 8:17 AM CDT) P athologist Signature Sodium 139 133 - 144 [place] mmol/L [facility] Potassium 3.7 3.4 - 5.3 [place] mmol/L [facility] Chloride 110 (H) 94 - 109 [place] mmol/L [facility] Carbon Dioxide 22 20 - 32 [place] mmol/L [facility] Anion Gap 7 3 - 14 [place] mmol/L [facility] Glucose 99 70 - 99 [place] mg/dL [facility] Urea Nitrogen 10 7 - 30 [place] mg/dL [facility] Creatinine 0.80 0.52 - [place] 1.04 mg/dL [facility] GFR Estimate 69 >60 [place] mL/min/1.[address] Comment: Non GFR Calc GFR Estimate If Black 84 >60 mL/min/1.7m2 F [facility] Comment: GFR Calc Calcium 8.3 (L) 8.5 - 10.1 mg/dL [facility] Specimen Anatomical Collection Method Collection Time Receive d Time (Source) Location / / Volume Laterality Blood specimen 10/03/2015 8:17 AM 016 8:20 (specimen) CDT AM CDT Guillermo Martinez MD LAB - BLOOD ORDERABLES Performing Organization Address City/State/ZIP Code Phon e Number [facility] [address] [place] [address] [phone] [facility] [address] [place] [address], [place] [phone] ALT (10/03/2015 8:17 AM CDT) P athologist Signature ALT 19 0 - 50 U/L [facility] Specimen Anatomical Collection Method Collection Time Receive d Time (Source) Location / / Volume Laterality Blood specimen 10/03/2015 8:17 AM 016 8:20 (specimen) CDT AM CDT Guillermo Martinez MD LAB - BLOOD ORDERABLES Performing Organization Address City/State/ZIP Code Phon e Number [facility] [address] [place] [phone] [facility] [address] [place] [address], [place] [phone] Lipid Profile (10/03/2015 8:17 AM CDT) P athologist Signature Cholesterol 129 <200 mg/dL [facility] Triglycerides 85 <150 mg/dL [facility] Comment: Fasting specimen HDL Cholesterol 56 >49 mg/dL [facility] LDL Cholesterol Calculated 56 <100 mg/dL [facility] Comment: Desirable: <100 mg/dl Non HDL Cholesterol 73 <130 mg/dL [facility] Specimen Anatomical Collection Method Collection Time Receive d Time (Source) Location / / Volume Laterality Blood specimen 10/03/2015 8:17 AM 016 8:20 (specimen) CDT AM CDT Guillermo Martinez MD LAB - BLOOD ORDERABLES Performing Organization Address City/State/ZIP Code Phon e Number [place] [address] [address] [place] [phone] [facility] [address] [place] [address], [place] [phone] documented in this encounter Visit Diagnoses Diagnosis Acute myocardial infarction of anterior wall, initial episode of care (H) Acute myocardial infarction of other ant erior wall, initial episode of care documented in this encounter Care Teams Diving Coach Relationship Specialty Start Date End Date Les Fair MD PCP - General Family Practice 08/23/15 12/29/15 [address] [place] [id number] documented as of this encounter
--- OUTSIDE RECORDS SUMMARY | 2022-02-21 10:33 | XMS_ITS | Encounter Summary ---
:1935 Author Organization [place] Address [address] [facility] [place] [address] Care Team Providers Name Role Phone Alicia Nice MD Primary Care Provider Unavailable Reason for Visit Reason Onset Date Comments Refill Request 09/20/2014 amlodipine - appt [place] heduled for 06/24/[address] [facility] [address] Martinez Encounter Details Date Type Department Care Team Description 09/20/[address] [facility] Heart Guillermo Martinez , Refill Request Clinic Karina EVANGELISTA (amlodipine - appt [address] scheduled for 06/24/2014 [address] [facility] [address] Martinez) [place] [address] [place] [phone] (Wo rk) Social History Tobacco Use Types Packs/Day Years Used Date Smoking Tobacco: Unknown Alcohol Use Standard Drinks/Week Comments Yes 0 (1 standard drink = 0.6 oz pure alcoho l) rarely Sex Assigned at Date Recorded Not on file documented as of this encounter Plan of Treatment Not on filedocumented as of this encounter Visit Diagnoses Diagnosis Essential hypertension, benign - Primary documented in this encounter Care Teams Manager Strategic Development Relationship Specialty Start Date End Date Alicia Nice MD PCP - General Family Practice 08/25/12 6 documented as of this encounter
--- OUTSIDE RECORDS SUMMARY | 2022-02-21 10:33 | XMS_ITS | Encounter Summary ---
:1935 Author Organization [place] Address [address] [facility] [place] [address] Care Team Providers Name Role Phone Les Fair MD Primary Care Provider Reason for Visit (Routine) - Closed Specialty Diagnoses / Procedures Referred By Contact Refer red To Contact Radiology / Radiology. Diagnoses non EPIC, ok per Michelle, NO Oral Contrast, pt has F/U appt at 1:00pm, need current creat Rh Ct Scan Procedures CT ABDOMEN PELVIS [facility]WO [address] [place] [address] Phone: Fax: Referral ID Status Reason Start Date Expiration Date Visits Requ ested Visits Authorized [id number] Closed 08/23/2015 08/15/2016 1 1 Encounter Details Date Type Department Care Team Description 08/23/2015 Hospital Encounter [facility] [address] tract [facility] MD [place] infection with [address] hematuria, site [place], [place] [address] unspecified [id number] [place] [id number] Social History Tobacco Use Types Packs/Day Years [...] Priority Date/Time Associated Diagnosis Comme nts CT ABDOMEN PELVIS Routine 08/23/2015 11:27 Urinary tract Resul ts for this W/O & W CONTRAST AM CDT infection with procedure are in hematuria, site the results unspecified section. ISTAT CREATININE Routine 08/23/2015 11:01 Urinary tract Result s for this POCT AM CDT infection with procedure are in hematuria, site the results unspecified section. documented in this encounter Results CT Abdomen Pelvis w/o & w Contrast (08/23/2015 11:27 AM CDT) Anatomical Region Laterality Modality Abdomen/Pelvis, SUBRAD CT BODY, UMP CT ABDOMEN PELVIS Computed Tomography Specimen (Source) Anatomical Location Collection Method / Collectio n Time Received Time / Laterality Volume Impressions 08/23/2015 2:14 PM CDT IMPRESSION: 1. No evidence of urinary tract stones o r hydronephrosis. No renal mass or intrarenal collecting system shobha ling defects. 2. The bladder is nondistended and, ther efore, it would be difficult to exclude bladder wall thickening or cy stitis. Recommend clinical correlation. 3. Small amount of free fluid in the pel vis of uncertain etiology. This is abnormal in a female patient of this age. Recommend follow-up CT scan if symptoms persist. GUILLERMO FOWLER MD Narrative 08/23/2015 2:[address] ABDOMEN PELVIS WITHOUT AND WITH CONTRAST 08/23/2015 11:27 AM HISTORY: Hematuria. Chronic urinary trac t infections. TECHNIQUE: 100 mL Isovue-370 IV. Pre- an d postcontrast imaging was performed. COMPARISON: None. FINDINGS: No kidney stones or hydronephr osis. No renal masses or renal collecting syst em filling defects. Bladder is contracted and somewhat difficult to mejia luate. It would be difficult to exclude some wall thickening or cysti tis. Recommend clinical correlation. Scans through the lung bases are unremar kable. Probable cardiomegaly. The liver is normal. Previous cholecyste ctomy. Spleen and pancreas are normal. No adrenal lesions. No retroperitoneal adenopathy or evidenc e of aortic aneurysm. Scans through the pelvis demonstrate a small a mount of free fluid which is abnormal in a female patient of this age . No evidence of diverticulitis or colitis . The appendix is difficult to identify, but no inflammatory changes ne ar the tip of the cecum. No dilated bowel. No free air. Procedure Note Guillermo Fowler MD - 08/23/2015Formattin g of this note might be different from the original. CT ABDOMEN PELVIS WITHOUT AND WITH CONTR AST 08/23/2015 11:27 AM HISTORY: Hematuria. Chronic urinary trac t infections. TECHNIQUE: 100 mL Isovue-370 IV. Pre- an d postcontrast imaging was performed. COMPARISON: None. FINDINGS: No kidney stones or hydronephr osis. No renal masses or renal collecting syst em filling defects. Bladder is contracted and somewhat difficult to mejia luate. It would be difficult to exclude some wall thickening or cysti tis. Recommend clinical correlation. Scans through the lung bases are unremar kable. Probable cardiomegaly. The liver is normal. Previous cholecyste ctomy. Spleen and pancreas are normal. No adrenal lesions. No retroperitoneal adenopathy or evidenc e of aortic aneurysm. Scans through the pelvis demonstrate a small a mount of free fluid which is abnormal in a female patient of this age . No evidence of diverticulitis or colitis . The appendix is difficult to identify, but no inflammatory changes ne ar the tip of the cecum. No dilated bowel. No free air. IMPRESSION: 1. No evidence of urinary tract stones o r hydronephrosis. No renal mass or intrarenal collecting system shobha ling defects. 2. The bladder is nondistended and, ther efore, it would be difficult to exclude bladder wall thickening or cy stitis. Recommend clinical correlation. 3. Small amount of free fluid in the pel vis of uncertain etiology. This is abnormal in a female patient of this age. Recommend follow-up CT scan if symptoms persist. GUILLERMO FOWLER MD Km Doyle MD IMG CT ORDERABLES Creatinine POCT (08/23/2015 11:01 AM CDT) P athologist Signature Creatinine 0.9 0.52 - POINT OF CARE 1.04 mg/dL TEST, HANDHELD METER GFR Estimate 61 >60 POINT OF CARE mL/min/1.7 TEST, HANDHELD m2 METER GFR Estimate If 73 >60 POINT OF CARE Black mL/min/1.7 TEST, HANDHELD m2 METER Specimen Anatomical Collection Method Collection Time Receive d Time (Source) Location / / Volume Laterality 08/23/2015 11:01 08/23/2015 AM CDT 11:05 AM CDT Km Doyle MD [facility] POCT Performing Organization Address City/State/ZIP Code Phon e Number [facility] POINT OF CARE TEST, HANDHELD METER POINT OF CARE TEST, HANDHELD METER documented in this encounter Visit Diagnoses Diagnosis Urinary tract infection with hematuria, site unspecified documented in this encounter Administered Medications Inactive Administered Medications - up to 3 most recent administrations Medication Order MAR Action Action Date Dose Rate Site 0.9% sodium chloride BOLUS New Bag 08/23/2015 11:06 AM CDT 65 mLs Intravenous, 1,000 mL, ONCE, On 08/23/15 at 1115, For 1 dose iopamidol (ISOVUE-370) 76% solution 500 mL Given 08/23/2015 11:06 AM CDT 100 mLs 500 mL, Intravenous, ONCE, On Sat08/23/15 at 1115, For 1 dose documented in this encounter Care Teams Clean Up Person Relationship Specialty Start Date End Date Les Fair MD PCP - General Family Practice 08/23/15 12/29/15 [address] [place] [address] documented as of this encounter
--- OUTSIDE RECORDS SUMMARY | 2022-02-21 10:33 | XMS_ITS | Encounter Summary ---
:1935 Author Organization [facility] Address [address] [facility] [place] [address] Care Team Providers Name Role Phone Allyson Pool Primary Care Provider Reason for Visit Reason Comments Fall Encounter Details Date Type Department Care Team Description 04/27/2017 Emergency [facility] Lizzy Lopez MD Hip injury, [facility] Emergency Dep t EMERGENCY PHYSICIANS encounter [address] [place], [place] [address] [place] [address] [place], [place] [id number] (Wo rk) Social History Tobacco Use Types Packs/Day Years Used Date Smoking Tobacco: Never Alcohol Use Standard Drinks/Week Comments Yes 0 (1 standard drink = 0.6 oz pure alcoho l) couple per week Sex Assigned at Date Recorded Not on file documented as of this encounter Last Filed Vital Signs Vital Sign Reading Time Taken Comments Blood Pressure 142/69 04/27/2017 9:15 PM TELEPHONE MAINTAINER Pulse 61 04/27/2017 7:48 PM TELEPHONE MAINTAINER Temperature 36.8 ??C (98.2 ??F) 04/27/2017 7:46 PM TELEPHONE MAINTAINER Respiratory Rate 16 04/27/2017 7:46 PM TELEPHONE MAINTAINER Oxygen Saturation 95% 04/27/2017 9:19 PM TELEPHONE MAINTAINER Inhaled Oxygen Concentration - - Weight - - Height - - Body Mass Index - - documented in this encounter Discharge Instructions Discharge InstructionsLizzy Lopez MD - 04/27/2017 9:18 PM CST Images from the original note were not included. Hip Contusion A contusion is another word for a bruise. It happens when small blood vessels break open and leak blood into the nearby area. A hip contusion can result from a bump, hit, or fall.??Symptoms of a contusion often include??changes in skin color??(bruising), swelling, and pain. It may take several hours for a deep bruise to show up.??If the injury is severe, you may need an X-ray to check for broken bones. Swelling should??decrease??in a few days. Bruising and pain may take several weeks to go away. Home care ?? Unless another medicine was prescribed, you may take acetaminophen, ibuprofen, or naproxen??to help relieve pain and swelling.??If needed, stronger pain medicines may be prescribed. Take all medicines exactly as directed. ?? Ice the bruised area to help reduce pain and swelling.??Wrap a cold source (ice pack??or ice cubes in a plastic bag) in a thin towel. Apply the cold source to the bruised area for 20 minutes every 1to 2 hours the first day. Continue this 3 to 4 times a day until the pain and swelling goes away. ?? If walking causes pain, use crutches or a walker until you can walk without pain. These items canbe rented at most pharmacies and orthopedic supply stores. ?? If your injury is keeping you from moving around or caring for yourself properly, you may qualifyfor services such as home healthcare. Check with your doctor and insurance company to see if this type of care is covered. Follow-up Follow up with your healthcare provider, or as advised. When to seek medical advice?? Call your healthcare provider right away if any of these occur: ?? Increased pain, bruising, or swelling near the injured area ?? Decreased ability to bear weight on the injured side ?? Pain or swelling develops below the knee ?? Chest pain or shortness of breath Date Last Reviewed: 08/11/2016 ?? [id number] [employer]. [address] [place] [address], [place] [address]. All rights reserved. This information is not intended as a substitute for professional medical care. Always follow your healthcare professional's instructions. PHONE MAINTAINER documented in this encounter Medications at Time [...] documented as of this encounter ED Notes Sommer Baxter RN - 04/27/2017 9:20 PM CST Patient ambulated to bathroom with assistance. aware. PHONE MAINTAINER Sommer Baxter RN - 04/27/2017 7:47 PM CST Pt states tripped and fell at home inside tonight just [employer]. Patient thinks fell on right hip and daughter things it was left hip. Patient states both hips hurt at this time. Pt denies LOC and didn't hit head. Pt denies pain to neck or back. Denies n/v. Pt A&Ox4. ABCs intact. PHONE MAINTAINER Lizzy Lopez MD - 04/27/2017 7:30 PM CST History Chief Complaint: Fall History limited secondary to patient's dementia. This is per the patient and her daughter. GYPSY Vyas is a 81 year old female with a history of myocardial infarction who presents to the emergency department today for evaluation of injuries sustained in a witnessed fall. The patient's daughter reports that the patient was walking from a wood floor to a carpeted surface today at the daughter's home when she mechanically fell. The patient's daughter reports that the patient landed on herleft side although the patient states that she landed on her right side. The patient states that shehit her head during the fall and currently has a mild headache. The patient's daughter states that the patient was able to get up with assistance from her grandsons. The patient currently describes bilateral hip pain, right greater than left. She denies vision changes, changes in appetite, recent cough or cold symptoms, loss of consciousness, dizziness, lightheadedness, neck pain, chest pain, back pain, arm pain, nausea, ankle pain, foot pain, or history of stroke or hip surgery. She states that shelives at home with her and ambulates without a cane or walker. The patient's daughter statesthat the patient does not take blood thinners. She denies noting any confusion. Allergies: Atorvastatin Morphine Sulfate [Morphine] Medications: Crestor Amlodipine Labetalol Benazepril Nitroglycerin Paxil Aspirin Pepcid Past Medical History: Arrhythmia Coronary artery disease GERD Benign breast biopsy Cellulitis Varicose veins Hyperlipidemia Hypertension Lung nodule Obesity Acute AR of lateral wall Past Surgical History: Appendectomy Total abdominal hysterectomy Cholecystectomy Coronary angiography (x3) Vein stripping Tonsillectomy Family History: Father: Heart Failure Mother: Arterial stenosis Son: CAD with v. Fib arrest Social History: The patient was accompanied to the ED by her daughter. Smoking Status: Never Smoker Alcohol Use: Positive Marital Status: Review of Systems Constitutional: Negative for appetite change. Eyes: Negative for visual disturbance. Respiratory: Negative for cough. Cardiovascular: Negative for chest pain. Gastrointestinal: Negative for nausea. Musculoskeletal: Negative for back pain and neck pain. Positive for bilateral hip pain, right greater than left. Negative for arm pain, ankle pain, foot pain. Neurological: Positive for headaches. Negative for dizziness and light-headedness. Negative for loss of consciousness. Psychiatric/Behavioral: Negative for confusion. All other systems reviewed and are negative. Physical Exam Patient Vitals for the past 24 hrs: BP Temp Temp src Pulse Resp SpO2 04/27/179 - - - - - 95 % 04/27/175 142/69 - - - - 96 % 04/27/17 2100 144/70 - - - - 95 % 04/27/175 152/80 - - - - 97 % 04/27/172014 - - - - - 98 % 04/27/171947 - - - 61 - 94 % 04/27/171945 166/86 98.2 ??F (36.8 ??C) Temporal - 16 94 % Physical Exam Constitutional: Well developed, Well nourished, completely comfortable appearing. HENT: Bilateral external ears normal, Mucous membranes moist, Nose normal. Neck- Normal range of motion, Supple. No contusions, abrasions or other wounds noted over the face or scalp. Eyes: PERRL, EOMI, conjunctivae unremarkable Respiratory: Normal breath sounds, No respiratory distress, No wheezing, Cardiovascular: Normal heart rate, Normal rhythm, No murmurs, GI: Bowel sounds normal, Soft, No tenderness, Musculoskeletal: Intact distal pulses, No edema, grossly unremarkable range of motion. Denies any neck pain, ranging neck spontaneously. No midline lumbar tenderness or perispinous tenderness. Very mild tenderness over the soft tissues of the right buttock, no focal bony tenderness over the right hip.No pain with range of motion of the right hip. Bilateral lower extremities otherwise demonstrate no focal tenderness or difficulty with range of motion. Integument: Warm, Dry Neurological: Alert, attentive and oriented to person, place and time Cranial nerves 2-12 intact; 5/5 strength throughout the upper and lower extremities; Sensation intact to light touch throughout the upper and lower extremities; [id number] testing unremarkable Psychiatric: Mood and affect normal. Emergency Department Course Imaging: Radiology findings were communicated with the patient and her daughter who voiced understanding of the findings. XR Pelvis and Hip Bilateral 2 Views No evidence for fracture, dislocation or significant degenerative change of the pelvis or either hip. Report per radiology. Interventions: 2006 Tylenol 650 mg PO Emergency Department Course: Nursing notes and vitals reviewed. I performed an exam of the patient as documented above. The patient was sent for a XR Pelvis and Hip Bilateral 2 Views while in the emergency department, results above. On recheck, the patient is feeling completely better, denies any complaints. I discussed the treatment plan with the patient. They expressed understanding of this plan and consented to discharge. They will be discharged home with instructions for care and follow up. In addition, the patient will return to the emergency department if their symptoms persist, worsen, if new symptoms arise or if there isany concern. All questions were answered. I personally reviewed the imaging results with the patient and her daughter and answered all relatedquestions prior to discharge. Impression & Plan Medical Decision Making: Fidelia Vyas is a 81 year old female presents for evaluation after a mechanical fall earlier today. Signs and symptoms are consistent with a contusion of the right hip. Xrays are negative for acute fracture. A broad differential was considered including sprain, strain, fracture, tendon rupture, nerve impingement/compromise, referred pain. Supportive outpatient management is indicated. Rest, ice was discussed with the patient. The patients head to toe trauma exam is otherwise negative for serious underlying disease of the head, neck, chest, abdomen, extremities, pelvis. Close follow-up with patient's primary care physician per discharge precautions. Hip contusion discharge instructions given forhome. Patient and her daughter are completely comfortable with plan. Diagnosis: ICD-10-CM 1. Hip injury, initial encounter S79.919A Disposition: The patient is discharged to home. Scribe Disclosure: Álvaro Artis, am serving as a scribe at 10:04 PM on 04/27/2017 to document services personally performed by Lizzy Lopez MD based on my observations and the provider's statements to me. [facility] EMERGENCY DEPARTMENT Lizzy Lopez MD 04/29/17 0234 PHONE MAINTAINER documented in this encounter Plan of Treatment Not on filedocumented as of this encounter Procedures Procedure Name Priority Date/Time Associated Diagnosis Comme nts XR PELVIS AND HIP STAT 04/27/2017 8:40 PM Resu lts for this BILATERAL 2 VIEWS TELEPHONE MAINTAINER procedure are in the results section. documented in this encounter Results XR Pelvis and Hip Bilateral 2 Views (04/27/2017 8:40 PM TELEPHONE MAINTAINER) Anatomical Region Laterality Modality Abdomen/Pelvis Bilateral Digital Radiography Specimen (Source) Anatomical Location Collection Method / Collectio n Time Received Time / Laterality Volume Impressions 04/27/2017 11:00 PM TELEPHONE MAINTAINER IMPRESSION: No evidence for fracture, dislocation or significant degenerative change of the pelvis or eit her hip. ARMIDA COOMBS MD Narrative 04/27/2017 11:00 PM TELEPHONE MAINTAINER PELVIS AND HIP BILATERAL TWO VIEWS 04/27/2017 8:40 PM COMPARISON: None. HISTORY: Fall, mild post right hip pain. FINDINGS: The visualized bones and joint spaces are within normal limits. Procedure Note Armida Coombs MD - 04/27/2017Forma tting of this note might be different from the original. PELVIS AND HIP BILATERAL TWO VIEWS 04/27 8:40 PM COMPARISON: None. HISTORY: Fall, mild post right hip pain. FINDINGS: The visualized bones and joint spaces are within normal limits. IMPRESSION: No evidence for fracture, di slocation or significant degenerative change of the pelvis or eit her hip. ARMIDA COOMBS MD Lizzy Lopez MD IMG DIAGNOSTIC IMAGING ORDER ANGELA documented in this encounter Visit Diagnoses Diagnosis Hip injury, initial encounter documented in this encounter Administered Medications Inactive Administered Medications - up to 3 most recent administrations Medication Order MAR Action Action Date Dose Rate Site acetaminophen (TYLENOL) tablet 650 Given 04/27/2017 8:06 PM TELEPHONE MAINTAINER 650 mg mg 650 mg, Oral, ONCE, On 04/27/17 at 1957, For 1 dose, Maximum acetaminophen dose from all sources = 75 mg/kg/day not to exceed 4 grams/day. documented in this encounter Active and Recently Administered Medications Times are shown in TELEPHONE MAINTAINER. Scheduled Medication Order 04/25/2017 04/26/2017 04/27/2017 acetaminophen (TYLENOL) tablet 650 mg (COMPLETED) 2005 (Given - Provider: Sommer Baxter RN) 650 mg, Oral, ONCE, On 04/27/17 at 1 957, For 1 dose, Maximum acetaminophen dose from all sources = 75 mg/kg/day not to exceed 4 grams/day. documented in this encounter Care Teams Court Manager Relationship Specialty Start Date End Date Allyson Pool PA PCP - General 04/27/17 [facility] [id number] [place] [id number] documented as of this encounter
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
--- OUTSIDE RECORDS SUMMARY | 2022-02-21 10:33 | XMS_ITS | Encounter Summary ---
:1935 Author Organization [place] Address [address] [facility] [place] [address] Care Team Providers Name Role Phone None Primary Care Provider Unavailable Encounter Details Date Type Department Care Team Description 10/16/2016 Orders Only [facility] Heart m urmur; [facility] Hattie Fink APRN Coronary ather osclerosis due to lipid rich plaque (CODE) [facility] [address] [place] [address] [place] [phone] Social History Tobacco Use Types Packs/Day Years [...] Associated Diagnosis Comme nts LIPID PROFILE STAT 10/16/2016 8:18 AM Heart murmur Results for this CDT Coronary procedure are i n atherosclerosis due to the r esults lipid rich plaque section. (CODE) ALT STAT 10/16/2016 8:18 AM Heart murmur Results f or this CDT procedure are i n the results section. BASIC METABOLIC STAT 10/16/2016 8:18 AM Heart murmur Result s for this PANEL CDT procedure are i n the results section. documented in this encounter Results ALT (10/16/2016 8:18 AM CDT) athologist Signature ALT 22 0 - 50 U/L [facility] Specimen Anatomical Collection Method Collection Time Receive d Time (Source) Location / / Volume Laterality Blood specimen 10/16/2016 8:18 AM 017 8:23 (specimen) CDT AM CDT Hattie Almanza APRN [employer] LAB - BLOOD ORDERABLES Performing Organization Address City/[facility] Phon e Number M [facility] [address], [place] [address] [facility] [address] [place], [place] [address], [facility] [phone] Lipid Profile (10/16/2016 8:18 AM CDT) athologist Signature Cholesterol 123 <200 mg/dL [facility] Triglycerides 62 <150 mg/dL [facility] Comment: Fasting specimen HDL Cholesterol 62 >49 mg/dL [facility] LDL Cholesterol Calculated 49 <100 mg/dL [facility] Comment: Desirable: <100 mg/dl Non HDL Cholesterol 61 <130 mg/dL [facility] Specimen Anatomical Collection Method Collection Time Receive d Time (Source) Location / / Volume Laterality Blood specimen 10/16/2016 8:18 AM 017 8:23 (specimen) CDT AM CDT Hattie Almanza APRN, CNP LAB - BLOOD ORDERABLES Performing Organization Address City/[facility] Phon e Number M [facility] [address], [place] [address] [facility] [address] [place], [place] [address], [facility] [phone] (ABNORMAL) Basic metabolic panel (10/16/2016 8:18 AM CDT) athologist Signature Sodium 141 133 - 144 [place] mmol/L [facility] Potassium 3.6 3.4 - 5.3 [place] mmol/L [facility] Chloride 107 94 - 109 [place] mmol/L [facility] Carbon Dioxide 29 20 - 32 [place] mmol/L [facility] Anion Gap 5 3 - 14 [place] mmol/L [facility] Glucose 95 70 - 99 [place] mg/dL [facility] Comment: Fasting specimen Urea Nitrogen 11 7 - 30 mg/dL [facility] Creatinine 0.75 0.52 - 1.04 mg/dL [facility] GFR Estimate 74 >60 mL/min/1.7m2 [facility] Comment: Non GFR Calc GFR Estimate If Black 90 >60 mL/min/1.7m2 F [facility] Comment: GFR Calc Calcium 8.1 (L) 8.5 - 10.1 mg/dL [facility] Specimen Anatomical Collection Method Collection Time Receive d Time (Source) Location / / Volume Laterality Blood specimen 10/16/2016 8:18 AM 017 8:23 (specimen) CDT AM CDT Hattie Almanza APRN [employer] LAB - BLOOD ORDERABLES Performing Organization Address City/State/ZIP Code Phon e Number M [facility] [address] [place] [address] [facility] [address] [phone] documented in this encounter Visit Diagnoses Diagnosis Heart murmur Undiagnosed cardiac murmurs Coronary atherosclerosis due to lipid ri ch plaque (CODE) documented in this encounter Care Teams Screen Repairer Crusher Relationship Specialty Start Date End Date None PCP - General 10/16/16 01/10/17 documented as of this encounter
--- OUTSIDE RECORDS SUMMARY | 2022-02-21 10:33 | XMS_ITS | Encounter Summary ---
:1935 Author Organization [facility] Address [address] [facility] [place] [address] Care Team Providers Name Role Phone Les Fair MD Primary Care Provider Reason for Referral - Closed Specialty Diagnoses / Procedures Referred By Contact Refer red To Contact Diagnoses Heart murmur Guillermo Martinez MD [address] [place] [address] Referral ID Status Reason Start Date Expiration Date Visits Requ ested Visits Authorized [id number] Closed 04/08/2016 04/08/2017 1 1 Reason for Visit Reason Comments Heart Problem CAD, HTN FU Cardiac testing Carotid US Results Labs - Closed Specialty Diagnoses / Procedures Referred By Contact Refer red To Contact Diagnoses Acute myocardial infarction of other anterior wall, initial episode of care Guillermo Martinez MD [address] [place] [id number] Referral ID Status Reason Start Date Expiration Date Visits Requ ested Visits Authorized [id number] Closed 09/21/2015 03/19/2016 1 1 Encounter Details Date Type Department Care Team Description 10/11/2015 Office Visit [facility] Guillermo Martinez Heart tsering urmur (Primary Dx); Heart Clinic Joy Fink MD Acute myocardial infarction of anterior wall, initial episode of care (H) [address] [facility] [address] [place] [address] [place] [phone] Social History Tobacco Use Types Packs/Day Years Used Date Smoking Tobacco: Never Alcohol Use Standard Drinks/Week Comments Yes 0 (1 standard drink = 0.6 oz pure alcoho l) couple per week Sex Assigned at Date Recorded Not on file documented as of this encounter Last Filed Vital Signs Vital Sign Reading Time Taken Comments Blood Pressure 104/58 10/11/2015 2:54 PM CDT Pulse 76 10/11/2015 2:54 PM CDT Temperature - - Respiratory Rate - - Oxygen Saturation - - Inhaled Oxygen Concentration - - Weight 103 kg (227 lb) 10/11/2015 2:54 PM CDT Height 163.8 cm (5' 4.5) 10/11/2015 2:54 PM CDT Body Mass Index 38.36 10/11/2015 2:54 PM CDT documented in this encounter Progress Notes Guillermo Martinez MD - 10/11/2015 3:17 PM CDT October 11, 2015 Les Fair MD [address] [address] RE:Waqar Lundberg :1935 Dear Les: Thank you for referring back Waqar Lundberg. As you remember, she is a 79-year-old woman who well before we ever met her in 1980 had an unrecognized left circumflex myocardial infarction. I met her in 2002 when she presented with an anterior infarct complicated by V-fib cardiac arrest. The left circumflex was 100% occluded chronically. The LAD had a severe lesion, it was too calcified and tortuous to get a stent down. We ballooned it only (although with today's technology no doubt we could stent it if necessary). We did do a followup heart cath, and there was only 50%-60% narrowing, and we noted that we could do rotastent if necessary, but there was not any flow-limiting lesion and the right coronary was 50% narrowed. She has had some false positive stress tests in the past. If she needs a stress test in the future, we would do an MRI stress test or an angiogram. She states that she feels great with no cardiovascular complaints whatsoever. I do note some ankle swelling, and she has a history of v aricose vein and remote history of varicose vein stripping. She does not think that she needs another varicose vein strip. She thinks the ankle swelling is just because of the holiday weekend with extra salt. Her blood pressure, if anything, is on the low end, and I told her to keep track of that. Certainly if there are lightheaded spells or on followup visits if it gets lower, we have the option of perhaps stopping the amlodipine, since she is only on 2.5 mg and already has some peripheral edema. Moises hear a systolic murmur for the first time on exam today. My guess is it is an aortic valve sclerosis murmur. I am going to have her come back in 6 months for an echocardiogram. At that time we will f ollow up on the echo but also look at her blood pressure and determine if the medicine needs to be decreased. Lab work was done today. It is all excellent, sodium 139, potassium 3.7, creatinine 0.8, calcium 8.3. ALT 19, total cholesterol 129, HDL 56, LDL 56, triglyceride 85, glucose 99. Thank you for allowing me to see Ms. Lundberg. This was a 20-minute visit, greater than 50% counselingto discuss possible varicose vein stripping, salt issues with the fluid retention and possibly cutting back on her blood pressure pill. Sincerely, MD GUILLERMO Garcia MD MT: CHRISTIE Name: WAQAR LUNDBERG MRN: [id number] Account: [id number] : 1935 Service Date: 10/11/2015 Document: [id number] Guillermo Martinez MD - 10/11/2015 3:13 PM CDT HPI and Plan: See dictation Orders Placed This Encounter Procedures ??? Follow-Up with Cardiac Advanced Practice Provider ??? Echocardiogram No orders of the defined types were placed in this encounter. There are no discontinued medications. Encounter Diagnoses Name Primary? Acute myocardial infarction of anterior wall, initial episode of care (H) ??? Heart murmur Yes CURRENT MEDICATIONS: Current Outpatient Prescriptions Medication [...] by mouth daily 90 tablet 2 ??? rosuvastatin (CRESTOR) 40 MG tablet Take 1 tablet (40 mg) by mouth daily 90 tablet 3 ??? nitroglycerin (NITROSTAT) 0.4 MG SL tablet [...] CAD (coronary artery disease) 1981 unrecognized Lcx HI, 2003 AWMI with VF: Lcx 100% chronic, [...] Son w/ V fib arrest SOCIAL HISTORY: History Social History ??? Marital Status: Spouse Name: N/A ??? Number of Children: N/A ??? Years of Education: N/A Social History Main Topics ??? Smoking status: Never Smoker ??? Smokeless tobacco: Not on file ??? Alcohol Use: Yes Comment: couple per week ??? Drug Use: Not on file ??? Sexual Activity: Not on file Other Topics Concern ??? Caffeine Concern No 4-6 cups daily of half and half ??? Sleep Concern No ??? Stress Concern No ??? Weight Concern No ??? Special Diet Yes watching fat intake ??? Exercise Yes 1-2 days a week walking ??? Seat Belt Yes Social History Narrative Review of Systems: Skin: Positive for bruising Eyes: Positive for glasses;cataracts ENT: Negative Respiratory: Negative Cardiovascular: Negative Gastroenterology: Positive for vomiting Genitourinary: Positive for nocturia Musculoskeletal: Positive for joint pain Neurologic: Negative Psychiatric: Negative Heme/Lymph/Imm: Negative Endocrine: Negative Physical Exam: Vitals: BP 104/58 mmHg Pulse 76 Ht 1.638 m (5' 4.5) Wt 102.967 kg (227 lb) BMI 38.38 kg/m2 Constitutional: cooperative, alert and oriented, well [...] RESULTS: Lab Results Component Value Date CHOL 129 10/03/2015 HDL 56 10/03/2015 LDL 56 10/03/2015 TRIG 85 10/03/2015 CHOLHDLRATIO 2.4 09/21/2014 LIVER ENZYME RESULTS: Lab Results Component Value Date AST 16 01/15/2014 ALT 19 10/03/2015 CBC RESULTS: Lab Results Component Value Date WBC 5.2 01/15/2014 RBC 4.73 01/15/2014 HGB 14.2 01/15/2014 HCT 42.8 01/15/2014 MCV 90.4 01/15/2014 MCH 30.1 01/15/2014 MCHC 33.3 01/15/2014 RDW 15.2* 01/15/2014 PLT 155 01/15/2014 PLT 179 12/02/2008 BMP RESULTS: Lab Results Component Value Date NA 139 10/03/2015 POTASSIUM 3.7 10/03/2015 CHLORIDE 110* 10/03/2015 CO2 22 10/03/2015 ANIONGAP 7 10/03/2015 GLC 99 10/03/2015 BUN 10 10/03/2015 BUN 15.1 09/15/2012 CR 0.80 10/03/2015 GFRESTIMATED 69 10/03/2015 GFRESTBLACK 84 10/03/2015 RANDA 8.3* 10/03/2015 A1C RESULTS: No results found for: A1C INR RESULTS: Lab Results Component Value Date INR 1.00 12/02/2008 INR 0.93 10/24/2005 CC Guillermo Martinez MD [facility] [address] [place] [address] documented in this encounter Plan of Treatment Scheduled Referrals Name Type Priority Associated Diagnoses Order S chedule Follow-Up with Cardiac Referral Routine Heart murmur Expec xavier: 04/08/2016 Advanced Practice ([facility]), Expires: Provider 10/10/2016 documented as of this encounter Visit Diagnoses Diagnosis Heart murmur - Primary Undiagnosed cardiac murmurs Acute myocardial infarction of anterior wall, initial episode of care (H) Acute myocardial infarction of other ant erior wall, initial episode of care documented in this encounter Care Teams Auriculotherapist Relationship Specialty Start Date End Date Les Fair MD PCP - General Family Practice 08/23/15 12/29/15 [address] [place] [address] documented as of this encounter
--- OUTSIDE RECORDS SUMMARY | 2022-02-21 10:33 | XMS_ITS | Encounter Summary ---
:1935 Author Organization [place] Address [address] [facility] [place] [address] Care Team Providers Name Role Phone Allyson Pool Primary Care Provider Reason for Referral Specialty Diagnoses / Procedures Referred By Contact Refer red To Contact Estrella Boone PA-C [address] [place] [address] Referral ID Status Reason Start Date Expiration Date Visits Requ ested Visits Authorized [employer]IDENT Specialty Diagnoses / Procedures Referred By Contact Refer red To Contact Estrella Boone PA-C [address] [place] [address] Referral ID Status Reason Start Date Expiration Date Visits Requ ested Visits [facility]ized [facility] Specialty Diagnoses / Procedures Referred By Contact Refer red To Contact Estrella Boone PA-C [address] [place] [address] Referral ID Status Reason Start Date Expiration Date Visits Requ ested Visits Authorized [facility] Specialty Diagnoses / Procedures Referred By Contact Refer red To Contact Estrella Boone PA-C [address] [place] [address] Referral ID Status Reason Start Date Expiration Date Visits Requ ested Visits Authorized [employer]ICE PRESIDENT Reason for Visit Reason Comments Numbness Auth/Cert Specialty Diagnoses / Procedures Referred By Contact Refer red To Contact Med Surg Diagnoses Generalized muscle weakness Arm heaviness Numbness and tingling in both hands Rh Observation Dep t [address] [place], [place] [address] Phone: Referral ID Status Reason Start Date Expiration Date Visits Requ ested Visits Authorized [id number] 05/03/2017 05/03/2018 1 1 Encounter Details Date Type Department Care Team Description 05/02/2017 - [facility] Lizzy Lopez MD [facility] [address] [place] [address] 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, unspecified vessel or lesion type (H) (Primary Dx); 05/04/2017 [facility] Observation Roel Geiger MD [address] [place] [address] Arm heaviness; Dept Generalized muscle weakness [address] [place] [address] Social History Tobacco Use Types Packs/Day Years Used Date Smoking Tobacco: Never Alcohol Use Standard Drinks/Week Comments Yes 0 (1 standard drink = 0.6 oz pure alcoho l) couple per week Sex Assigned at Date Recorded Not on file documented as of this encounter Last Filed Vital Signs Vital Sign Reading Time Taken Comments Blood Pressure 115/60 05/04/2017 2:42 PM [employer] Pulse 67 05/04/2017 2:42 PM [employer]IDENT Temperature 36.8 ??C (98.3 ??F) 05/04/2017 2:42 PM [employer]IDENT Respiratory Rate 18 05/04/2017 2:42 PM [employer] PRESIDENT Oxygen Saturation 95% 05/04/2017 2:42 PM [employer] PRESIDENT Inhaled Oxygen Concentration - - Weight 98.9 kg (218 lb) 05/02/2017 6:13 PM [employer]IDENT Height 167.6 cm (5' 6) 05/02/2017 6:13 PM [employer]IDENT Body Mass Index 35.19 05/02/2017 6:13 PM [employer] PRESIDENT documented in this encounter Discharge Summaries Boone, Estrella Spangler PA-C - 05/04/2017 1:25 PM CST [facility] Outpatient/Observation Unit Discharge Summary Patient ID: Fidelia Vyas [id number] 81 year old 1935 Admit date: 05/02/2017 Discharge date and time: 05/04/2017 Admitting Provider: Roel Geiger MD Discharge Provider: Estrella Boone PA-C Admission Diagnoses: Generalized muscle weakness [M62.81] Arm heaviness [R29.898] Discharge Diagnoses: 1. Frequent fall multifactorial, gait imbalance. 2. Progressive cognitive decline. 3. 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 Hypokalemia: resolved. Maxzide discontinued. Admission Condition: fair Discharged Condition: good Hospital Course: Reason for your hospital stay You were admitted for concerns weakness and falls. Fortunately no fractures were found. Your Potassium was slightly low and likely secondary to your BP meds. Your BP has been well controlled so for the time being, we have discontinued your Maxzide. You were seen by the therapist and recommended increased supervision due to concerns memory deficit. You will need for follow up with your Neurologist for concerns of your memory and hand paraesthesia. We will send home therapies and home health to check in on you. Fidelia Vyas is a 81 year old female admitted on 05/02/2017 with family for increased confusion, recent falls, numbness in hands. 1. Falls at home and left hip pain. Xrays negative. Suspect multifactorial. She was seen by therapy and they recommended WC. Recommended TCU vs home care with 24 hr supervision but pt did improve mobility during her admission. She was stand by assist at the time of discharge. She can not go to TCU dueto cost restraint. We will set up home therapies for her. ?? 2. Memory loss Seen neurology 03/22/2017 as a new consult for memory loss She did not tolerate the MRI at that time - was rescheduled for later this month. Lab profile completed without any abnormalities Head CT repeated on admission was without any clear acute abnormalities OT rec 24 supervision but will need outpt resources and consideration for services. Will have home RN/SW to help assess. I have as her dtr Onel and to handle all meds and cooking, etc. No driving. ?? 2. 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 4. Depression/anxiety Neurologist recently increased her daily paxil dose from 10mg po daily to 20mg po daily (03/22/17) Will continue increased dose and monitor. ?? 5. HTN Continue home meds (labetalol, amlodipine) with parameters. Maxzide discontinued due to soft BP and hypokalemia. She was on such a small dose at night and here her BP is WNL. Will d/c all together and reassesses need for additional BP meds at outpt. ?? 6. CAD No cp or active issues S/p PR in 1979, 2000 Continue statin, b-rosy and daily asa 7. Hypokalemia: resolved. ?? 8. H/o monoclonal gammopathy of unclear significance Follows with heme/on as an outpt Consults: OT Significant Diagnostic Studies: Recent Labs Lab 05/02/17 1833 WBC 8.5 HGB 13.3 HCT 40.0 MCV 91 PLT 143* Recent Labs Lab 05/03/17 1907 05/03/17 0627 05/02/17 1836 05/02/17 1833 NA -- -- -- 139 POTASSIUM 3.6 3.2* -- 3.2* CHLORIDE -- -- -- 103 CO2 -- -- -- 29 ANIONGAP -- -- -- 7 GLC -- -- -- 92 BUN -- -- -- 18 CR -- -- -- 0.84 GFRESTIMATED -- -- 60* 66 GFRESTBLACK -- -- 73 80 RANDA -- -- -- 8.1* No results for input(s): CULT in the last 168 hours. Recent Labs Lab 05/03/17 0627 05/03/17 0011 05/02/17 2031 TROPI 0.020 0.022 0.016 Recent Labs Lab 05/02/17 2119 COLOR Yellow APPEARANCE Clear URINEGLC Negative URINEBILI Negative URINEKETONE 5* SG 1.010 UBLD Small* URINEPH 6.0 PROTEIN Negative NITRITE Negative LEUKEST Negative RBCU 1 WBCU 4* Results for orders placed or performed during the hospital encounter of 05/02/17 CT Head w/o Contrast Narrative CT SCAN OF THE HEAD WITHOUT CONTRAST 05/02/2017 6:51 PM HISTORY: Code stroke. Hand numbness and confusion. TECHNIQUE: Axial images of the head and coronal reformations without IV contrast material. Radiation dose for this scan was reduced using automated exposure control, adjustment of the mA and/or kV according to patient size, or iterative reconstruction technique. COMPARISON: None. FINDINGS: There is generalized atrophy of the brain. There is low attenuation in the white matter of the cerebral hemispheres consistent with sequelae of small vessel ischemic disease. 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 There is no evidence of intracranial hemorrhage, mass, acute infarct or anomaly. The visualized portions of the sinuses and mastoids appear normal. There is no evidence of trauma. Impression IMPRESSION: 1. No acute abnormality. 2. Atrophy of the brain. White matter changes consistent with sequelae of small vessel ischemic disease. 3. Old lacunar infarcts in the white matter of the durant radiata on the right and left external capsule. SHANICE HYATT MD CT Head w Contrast Narrative CT ANGIOGRAM OF THE HEAD AND NECK WITHOUT AND WITH CONTRAST 05/02/2017 7:24 PM HISTORY: Code stroke. Arm numbness and confusion. TECHNIQUE: Precontrast localizing scans were followed by CT angiography with an injection of 70mL Isovue-370 (accession [id number]), 50mL Isovue-370 (accession [id number]) IV with scans through the head and neck. Images were transferred to a separate 3-D workstation where multiplanar reformations and 3-D images were created. Estimates of carotid stenoses are made relative to the distal internal carotid artery diameters except as noted. Radiation dose for this scan was reduced using automated exposure control, adjustment of the mA and/or kV according to patient size, or iterative reconstruction technique. Perfusion scans were performed at three levels with injection of an additional 40 mL IV nonionic contrast and 20 mL saline flush. These images were processed on a separate 3-D workstation. COMPARISON: None. CT HEAD FINDINGS: No contrast enhancing lesions. Perfusion CT scan of the head appears normal. CT ANGIOGRAM HEAD FINDINGS: Arteries are widely patent with no aneurysm, significant stenosis, occlusion or intraarterial thrombus. Venous circulation is unremarkable. CT ANGIOGRAM NECK FINDINGS: Right carotid artery: Internal carotid is somewhat tortuous, meeting the left in the midline. No significant stenosis. Left carotid artery: Tortuous left internal carotid extending to the midline. No significant stenosis. Vertebral arteries: No significant stenosis. Other findings: There is a 3 cm cyst in the left anterior mediastinum of indeterminate etiology. There is a right posterior thyroid nodule to the right of the esophagus, 1.5 x 1.4 cm diameter. Impression IMPRESSION: 1. Tortuous internal carotid arteries. 2. Otherwise normal CT angiogram of the head and neck. 3. Normal perfusion CT scan of the head. 4. Right thyroid nodule. Ultrasound is suggested for further evaluation. 5. Left mediastinal cyst, incompletely imaged. Chest CT scan with contrast would be helpful for further evaluation when the patient is stable. There are no previous exams available for comparison. I called the report to Dr. Lizzy Lopez in the emergency room at 7:07 PM. SHANICE HYATT MD CTA Angiogram Head Neck Narrative CT ANGIOGRAM OF THE HEAD AND NECK WITHOUT AND WITH CONTRAST 05/02/2017 7:24 PM HISTORY: Code stroke. Arm numbness and confusion. TECHNIQUE: Precontrast localizing scans were followed by CT angiography with an injection of 70mL Isovue-370 (accession [id number]), 50mL Isovue-370 (accession [id number]) IV with scans through the head and neck. Images were transferred to a separate 3-D workstation where multiplanar reformations and 3-D images were created. Estimates of carotid stenoses are made relative to the distal internal carotid artery diameters except as noted. Radiation dose for this scan was reduced using automated exposure control, adjustment of the mA and/or kV according to patient size, or iterative reconstruction technique. Perfusion scans were performed at three levels with injection of an additional 40 mL IV nonionic contrast and 20 mL saline flush. These images were processed on a separate 3-D workstation. COMPARISON: None. CT HEAD FINDINGS: No contrast enhancing lesions. Perfusion CT scan of the head appears normal. CT ANGIOGRAM HEAD FINDINGS: Arteries are widely patent with no aneurysm, significant stenosis, occlusion or intraarterial thrombus. Venous circulation is unremarkable. CT ANGIOGRAM NECK FINDINGS: Right carotid artery: Internal carotid is somewhat tortuous, meeting the left in the midline. No significant stenosis. Left carotid artery: Tortuous left internal carotid extending to the midline. No significant stenosis. Vertebral arteries: No significant stenosis. Other findings: There is a 3 cm cyst in the left anterior mediastinum of indeterminate etiology. There is a right posterior thyroid nodule to the right of the esophagus, 1.5 x 1.4 cm diameter. Impression IMPRESSION: 1. Tortuous internal carotid arteries. 2. Otherwise normal CT angiogram of the head and neck. 3. Normal perfusion CT scan of the head. 4. Right thyroid nodule. Ultrasound is suggested for further evaluation. 5. Left mediastinal cyst, incompletely imaged. Chest CT scan with contrast would be helpful for further evaluation when the patient is stable. There are no previous exams available for comparison. I called the report to Dr. Lizzy Lopez in the emergency room at 7:07 PM. SHANICE HYATT MD XR Chest 2 Views Narrative CHEST TWO VIEWS 05/02/2017 7:11 PM HISTORY: Weakness. Impression IMPRESSION: The lungs appear clear. Mediastinal prominence may be related to the AP positioning. Upper lobe vascular congestion is suspected. However, there is no evidence of pleural effusion. EVELIN CHAMORRO MD XR Pelvis and Hip Bilateral 2 Views Narrative PELVIS WITH BILATERAL HIP THREE VIEWS 05/03/2017 12:23 PM HISTORY: Recent fall and significant hip pain, L>R. Rule out fracture. COMPARISON: 04/27/2017 Impression IMPRESSION: No fracture or dislocation. 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 Arterial calcifications noted. SALMA OBRIEN MD Treatments: IV hydration Discharge Exam: B/P: 138/65, T: 97.7, P: 61, R: 18 GENERAL: Comfortable. PSYCH: pleasant, oriented, No acute distress. HEENT: PERRLA. Normal conjunctiva, normal hearing, nasal mucosa and Oropharynx are normal. NECK: Supple, no neck vein distention, adenopathy or bruits, normal thyroid. HEART: Normal S1, S2 with no murmur, no pericardial rub, gallops or S3 or S4. LUNGS: Clear to auscultation, normal Respiratory effort. No wheezing, rales or ronchi. ABDOMEN: Soft, no hepatosplenomegaly, normal bowel sounds. Non-tender, non distended. EXTREMITIES: No pedal edema, +2 pulses bilateral and equal. SKIN: Dry to touch, No rash, wound or ulcerations. NEUROLOGIC: CN 2-12 intact, BL 5/5 symmetric upper and lower extremity strength, sensation is intactwith no focal deficits. Pending Studies: Unresulted Labs Ordered in the Past 30 Days of this Admission No orders found from 03/03/2017 to 05/03/2017. Disposition: home Patient Instructions: Review of your medicines START taking ASA 81mg Dose / Directions order for DME Used for: Generalized muscle weakness Equipment being ordered: Walker Wheels (E0155) and Walker (E0135) Treatment Diagnosis: Impaired gait stability. Quantity: 1 each Refills: 0 CONTINUE these medicines which have NOT CHANGED Dose / Directions AMLODIPINE BESYLATE PO Dose: 2.5 mg Take 2.5 mg by mouth every evening Refills: 0 DONEPEZIL HCL PO Dose: 10 mg Take 10 mg by mouth daily Refills: 0 * LABETALOL HCL PO Dose: 50 mg Take 50 mg by mouth daily Refills: 0 * LABETALOL HCL PO Dose: 100 mg Take 100 mg by mouth At Bedtime Refills: 0 nitroGLYcerin 0.4 MG sublingual tablet Commonly known as: NITROSTAT Used for: Acute myocardial infarction of other anterior wall, initial episode of care Dose: 0.[address] 1 tablet (0.4 mg) under the tongue every 5 minutes as needed for chest pain Quantity: 25 tablet Refills: 1 PAXIL 10 MG tablet Generic drug: PARoxetine Dose: 10 mg 10 mg Refills: 0 rosuvastatin 40 MG tablet Commonly known as: CRESTOR Used for: Mixed hyperlipidemia Dose: 40 mg Take 1 tablet (40 mg) by mouth daily Quantity: 90 tablet Refills: 3 VITAMIN D (CHOLECALCIFEROL) PO Dose: 1000 Units Take 1,000 Units by mouth daily Refills: 0 * Notice: This list has 2 medication(s) that are the same as other medications prescribed for you. Read the directions carefully, and ask your doctor or other care provider to review them with you. STOP taking triamterene-hydrochlorothiazide 37.5-25 MG per tablet Commonly known as: MAXZIDE-25 Where to get your medicines Some of these will need a paper prescription and others can be bought over the counter. Ask your nurse if you have questions. Bring a paper prescription for each of these medications ??? order for DME Activity: activity as tolerated Active Diet Order Regular Diet Adult Diet Follow-up with PCP in 1 week with repeat BMP. Signed: Estrella Boone [employer] VICE PRESIDENT Associated attestation - Onel Chang MD - 05/09/2017 2:22 PM [employer] VICE PRESIDENT Physician Attestation I, Onel Chang, have reviewed and discussed with the advanced practice provider their discharge plan for Fidelia Vyas. I did not participate in a shared visit by interviewing or examining the patient and this should be billed as an advanced practice provider only discharge. Onel Chang Date of Service (when I saw the patient): I did not personally see this patient today. documented in this encounter Medications at Time of Discharge Medication Sig Dispensed Refills Start Date End Date aspirin 81 MG Take 1 tablet (81 30 tablet 0 05/04/2017 tabletIndications: mg) by mouth daily 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, unspecified vessel or lesion type (H) DONEPEZIL HCL PO Take 10 mg by mouth 0 daily LABETALOL HCL PO Take 100 mg by mouth 0 At Bedtime order for DMEIndications: Equipment being ordered: [employer] Wheels (E0155) and Walker ([id number]) 1 each 0 05/04/2017 Generalized muscle Treatment Diagnosis: Impaired gait stability. weakness PARoxetine (PAXIL) 10 MG 10 mg 0 tablet VITAMIN D, Take 1,000 Units by 0 CHOLECALCIFEROL, PO mouth daily AMLODIPINE BESYLATE PO Take 2.5 mg by mouth 0 11/21/2017 every evening LABETALOL HCL PO Take 50 mg by mouth 0 11/21/2017 daily nitroglycerin (NITROSTAT) Place 1 tablet (0.4 25 tablet 1 0 09/21/2014 11/21/2017 0.4 MG SL mg) under the tongue tabletIndications: Acute every 5 minutes as myocardial infarction of needed for chest other anterior wall, pain initial episode of care rosuvastatin (CRESTOR) 40 Take 1 tablet (40 90 tablet 3 04/201611/21/2017 MG tabletIndications: mg) by mouth daily Mixed hyperlipidemia documented as of this encounter Progress Notes Jamila Coyle RN - 05/03/2017 6:25 PM CST Patient and daughter called nurse into the room. Patient and and daughter were wondering what the plan of care was. They were updated that patient was seen by OT today and that OT recommend either TCU or home services with 24-7 supervision. Patient kept saying I need to go home for Judit, I don'tcare what you do but I need to go home tomorrow and I need to be home for Judit. [employer] VICE PRESIDENT Ekaterina Verduzco, OT - 05/03/2017 12:34 PM CST 05/03/17 1121 Quick Adds Type of Visit Initial Occupational Therapy Evaluation Living Environment Lives With spouse Living Arrangements house (patient reports rambler style home) Home Accessibility tub/shower is not walk in;stairs within home;stairs to enter home;grab bars present (toilet) Number of Stairs to Enter Home 2 Number of Stairs Within Home 13 (patient reports full flight to basement with 1 railing) Transportation Available car;family or friend will provide Self-Care Usual Activity Tolerance moderate Current Activity Tolerance fair Equipment Currently Used at Home shower chair;grab bar Activity/Exercise/Self-Care Comment Per patient report, she has a shower chair and 2 grab bars- 1 touse while entering tub and one on inside wall of tub at a diagonal. Patient reports she has been I with all ADL's and IADL's, however her spouse has beem helping out with cooking, cleaning, med set-up and driving/errands. rehabilitation case coordinator called spouse who reports, he has been A with all ADL's and IADL's has patient's memory has been declining for past 2-3 months. Patient has not dirven for about 2weeks, patient reports she think she drove 1-2 days ago. Functional Level Prior Ambulation 1-->assistive equipment Transferring 1-->assistive equipment Toileting 0-->independent Bathing 3-->assistive equipment and person Dressing 2-->assistive person Eating 2-->assistive person Communication 0-->understands/communicates without difficulty Swallowing 0-->swallows foods/liquids without difficulty Cognition 1 - attention or memory deficits Prior Functional Level Comment Patient reports she is I with all her cares, however spouse reports he has been A with her ADL's due to numbness in hands General Information Onset of Illness/Injury or Date of Surgery - Date 05/02/[address] Ha-Emma Patient/Family Goals Statement not stated by patient Additional Occupational Profile Info/Pertinent History of Current Problem Patient is a 81 year old female with dementia and history of two heart attacks who presents to the emergency department with her and son for evaluation of numbness. The patient's reports increasing memory troublelately with her dementia but this has progressed over multiple weeks and is not new today. The patient was seen here in the emergency department on 04/27/2017 for a mild, witnessed mechanical fall. Shepresented to the emergency department after the fall with mild hip pain and had a workup here which included an x-ray and was unremarkable. The patient's notes that she has had some difficulty w alking since this fall but has been able to use her walker. She had another mechanical fall on 04/24/17, upon feeling nauseous after eating as she typically does- it again appeared straightforward, with a clear mechanism, no loss of consciousness or new symptoms afterward. After that fall, the patient had no pain but did have difficulty getting up on her own. The patient's and son report that she was in the garage today at about 1700 when she called to him complaining of pain, heaviness, and tingling to her left arm that radiated down the arm and to the fingertips. The patient reports a weird feeling in her whole arm which radiated into her neck, and the feeling is still lingering now. The tingling has persisted steadily since onset. Precautions/Limitations fall precautions General Observations patient was in bed and agreeable to OT session. Cognitive Status Examination Orientation orientation to person, place and time Level of Consciousness alert;confused Able to Follow Commands WNL/WFL Personal Safety (Cognitive) decreased awareness, need for assist;decreased insight to deficits;unaware of cognitive deficits;unaware of functional deficits;unaware of consequences of deficits Memory impaired Attention Distractible during evaluation Cognitive Comment Patient demonstrates decreased cognitive- which is known to family. Patient has appointment to see neurology on 05/07 for further assessment. SLUSM complete for baseline- defer to OT daily note for details Visual Perception Visual Perception Wears glasses Visual Perception Comments patient is vague with need for glasses- sometimes wears for distance, always for reading Sensory Examination Sensory Comments deficits noted with hand sensation- patient is vague with responses- reports numbness that comes and goes, at onetime will state it's fine, but when completing ADL's and says it difficult since her hands feel numb. Pain Assessment Patient Currently in Pain Yes, see Vital Sign flowsheet (rates L Hip pain /10 with mobility) Integumentary/Edema Integumentary/Edema Comments noted increased edema on L hip above bruising from recent fall Posture Posture not impaired Range of Motion (ROM) ROM Comment appears WFL's and suspect baseline Strength Strength Comments strength in B UE is WFL's Hand Strength Hand Strength Comments intact Muscle Tone Assessment Muscle Tone Comments note d B hand tremors- most noticeable when asking to write with SLUMS testing Coordination Upper Extremity Coordination Left UE impaired;Right UE impaired Coordination Comments significant impairment in B hands noted with functional tasks- donning socks, pulling papaertowle from mason after washing hands, writing tasks Mobility Bed Mobility Comments mod I with bed mobility with heavy use of grabbars from ful supine position for supine <>sit Transfer Skill: Sit to Stand Level of [place]: Sit/Stand contact guard Physical Assist/Nonphysical Assist: Sit/Stand supervision;verbal cues Transfer Skill: Sit to Stand weight-bearing as tolerated Assistive Device for Transfer: Sit/Stand rolling walker Toilet Transfer Toilet Transfer Comments treatment initiated-defer to OT cheyanne note for details Balance Balance Comments decreased balance noted- patient at risk for falls- A for all mobility highly recommended Lower Body Dressing Level of [place]: Dress Lower Body moderate assist (50% patients effort) Grooming Level of [place]: Grooming minimum assist (75% patients effort) Physical Assist/Nonphysical Assist: Grooming verbal cues;supervision Instrumental Activities of Daily Living (IADL) IADL Comments per spouse report, he has been taking over IADL's due to patient's declining cognition. Patient reports she has been I, however does state her spouse has been A more with IADL's. Patient thinks she was cooking and driving yesterday. Activities of Daily Living Analysis Impairments Contributing to Impaired Activities of Daily Living balance impaired;cognition impaired;motor control impaired;coordination impaired;strength decreased General Therapy Interventions Planned Therapy Interventions cognition;progressive activity/exercise;transfer training;ADL retraining Clinical Impression Criteria for Skilled Therapeutic Interventions Met yes, treatment indicated OT Diagnosis decreased ADL's Influenced by the following impairments balance impaired;cognition impaired;motor control impaired;coordination impaired;strength decreased Assessment of Occupational Performance 5 or more Performance Deficits Identified Performance Deficits decreased ADL's and IADL's- dsg, toileting, bathing, title assistant, driving, ambulating functional and community distances safely Clinical Decision Making (Complexity) High complexity Therapy Frequency daily Predicted Duration of Therapy Intervention (days/wks) 1 time session Anticipated Discharge Disposition Transitional Care Facility (if to dc home, needs 03/12 supervision and A with transfer ) Risks and Benefits of Treatment have been explained. Yes Patient, Family & other staff in agreement with plan of care Yes [facility] TM 6 Clicks ?? 2016, Trustees of [facility], under license to [employer]. All rights reserved. 6 Clicks Short Forms Daily Activity Inpatient Short Form [facility]??? 6 Clicks Daily Activity Inpatient Short Form 1. Putting on and taking off regular lower body clothing? 2 - A Lot 2. Bathing (including washing, rinsing, drying)? 3 - A Little 3. Toileting, which includes using toilet, bedpan or urinal? 3 - A Little 4. Putting on and taking off regular upper body clothing? 3 - A Little 5. Taking care of personal grooming such as brushing teeth? 3 - A Little 6. Eating meals? 3 - A Little Daily Activity Raw Score (Score out of 24.Lower scores equate to lower levels of function) 17 Total Evaluation Time Total Evaluation Time (Minutes) 15 AL SUPPLY CHAIN VICE PRESIDENT Shaye Torres DO - 05/03/2017 11:12 AM CST [facility] Hospitalist Observation Unit Progress Note Name: Fidelia Vyas Provider: Shaye Torres DO Initial presenting complaint/issue to hospital (Diagnosis): numbness in both hands and progressive confusion Assessment and Plan: Summary of Stay: Fidelia Vyas is a 81 year old female admitted on 05/02/2017 with family for increased confusion, recent falls, numbness in halls. Problem List: 1. Falls at home and left hip pain Fall history and home is unclear (limited from pt) She was in the ED on 04/27/17 after mechanical fall at hip pain Plain films at that time with no evidence of fracture It is very painful for her to walk and so will re-image her pelvis and hips to evaluate for fracture Will give tylenol and ibuprofen cautiously for pain. She has not tolerated narcotics well in the past. No f/c or leukocytosis that would be concerning for septic joint. 2. Memory loss Seen neurology 03/22/2017 as a new consult for memory loss She did not tolerate the MRI at that time - was rescheduled for later this month. Lab profile completed without any abnormalities Head CT repeated on admission was without any clear acute abnormalities 2. 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 Depression/anxiety Neurologist recently increased her daily paxil dose from 10mg po daily to 20mg po daily (03/22/17) Will continue increased dose, for now. 5. HTN Continue home meds (labetalol, amlodipine and diazide) with parameters 6. CAD No cp or active issues S/p PR in 1979, 2000 Continue statin, b-rosy and daily asa Has normal creat and no allergy listed for acei/arb---will d/c diazide and start arb 7. Hypokalemia Another reason to switch out her diazide Supplement per electrolyte protocol Will add-on magnesium level, as well 8. H/o monoclonal gammopathy of unclear significance Follows with heme/on as an outpt DVT Prophylaxis: - Will add pcd's Code Status: Full Code Discharge Dispo: anticipate need for TCU Estimated Disch Date / # of Days until Discharge: additional 1-2 more days Observation unit physician is available until 1400. After 1400, please contact the observation unit Physician Assembler Corncob Pipes if questions/concerns. Interval History: Seen alone in room. No pain at rest in head, chest, hands, etc. Appetite ok. Memory limited--unclearof events of what brought her here. I need to get home for Judit. Physical Exam: Last Vital Signs: Temp: 97.5 ??F (36.4 ??C) Temp src: Oral BP: 140/60 Pulse: 76 Heart Rate: 70 Resp: 16 SpO2: 97 % O2 Device: None (Room air) GEN: Alert, oriented x 3, comfortable, NAD. HEENT: Normocephalic/atraumatic, PERRL, no scleral icterus, no nasal discharge, mouth moist, no oralulcers or thrush noted. NECK: No clear thyromegaly of clear JVD CV: Regular rate and rhythm, no murmur to ausc. S1 + S2 noted, no S3 or S4. LUNGS: Clear to auscultation bilaterally. No rales/rhonchi/wheezing auscultated bilaterally. No costal retractions bilaterally. Symmetric chest rise on inhalation noted. ABD: Active bowel sounds, soft, non-tender/non-distended. No rebound/guarding/rigidity. No masses palpated. No obvious HSM to exam. EXT: No edema or cyanosis bilaterally. No joint synovitis noted. No calf- tenderness or asymmetry noted. SKIN: Dry to touch, no rashes or jaundice noted. PSYCH: Mood appropriate, Not tearful or depressed. Maintains direct eye contact. NEURO: No tremors at rest Medications: All current medications were reviewed. Data: All new lab and imaging data was reviewed. Labs: Recent Labs Lab 05/03/1762605/02/17183505/02/171832 NA -- -- 139 POTASSIUM 3.2* -- 3.2* CHLORIDE -- -- 103 CO2 -- -- 29 ANIONGAP -- -- 7 GLC -- -- 92 BUN -- -- 18 CR -- -- 0.84 GFRESTIMATED -- 60* 66 GFRESTBLACK -- 73 80 RANDA -- -- 8.1* Magnesium - 2.3 Recent Labs Lab 05/02/171832 WBC 8.5 HGB 13.3 HCT 40.0 MCV 91 PLT 143* Recent Labs Lab 05/03/1762605/02/17183505/02/171832 NA -- -- 139 POTASSIUM 3.2* -- 3.2* CHLORIDE -- -- 103 CO2 -- -- 29 ANIONGAP -- -- 7 GLC -- -- 92 BUN -- -- 18 CR -- -- 0.84 GFRESTIMATED -- 60* 66 GFRESTBLACK -- 73 80 RANDA -- -- 8.1* MAG 2.3 -- -- No results for input(s): TSH in the last 168 hours. Recent Labs Lab 05/02/17 2119 COLOR Yellow APPEARANCE Clear URINEGLC Negative URINEBILI Negative URINEKETONE 5* SG 1.010 UBLD Small* URINEPH 6.0 PROTEIN Negative NITRITE Negative LEUKEST Negative RBCU 1 WBCU 4* Recent Imaging: Pelvis xray - pending Recent Results (from the past 24 hour(s)) CT Head w/o Contrast Narrative CT SCAN OF THE HEAD WITHOUT CONTRAST 05/02/2017 6:51 PM HISTORY: Code stroke. Hand numbness and confusion. TECHNIQUE: Axial images of the head and coronal reformations without IV contrast material. Radiation dose for this scan was reduced using automated exposure control, adjustment of the mA and/or kV according to patient size, or iterative reconstruction technique. COMPARISON: None. FINDINGS: There is generalized atrophy of the brain. There is low attenuation in the white matter of the cerebral hemispheres consistent with sequelae of small vessel ischemic disease. 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 There is no evidence of intracranial hemorrhage, mass, acute infarct or anomaly. The visualized portions of the sinuses and mastoids appear normal. There is no evidence of trauma. Impression IMPRESSION: 1. No acute abnormality. 2. Atrophy of the brain. White matter changes consistent with sequelae of small vessel ischemic disease. 3. Old lacunar infarcts in the white matter of the durant radiata on the right and left external capsule. SHANICE HYATT MD XR Chest 2 Views Narrative CHEST TWO VIEWS 05/02/2017 7:11 PM HISTORY: Weakness. Impression IMPRESSION: The lungs appear clear. Mediastinal prominence may be related to the AP positioning. Upper lobe vascular congestion is suspected. However, there is no evidence of pleural effusion. EVELIN CHAMORRO MD CT Head w Contrast Narrative CT ANGIOGRAM OF THE HEAD AND NECK WITHOUT AND WITH CONTRAST 05/02/2017 7:24 PM HISTORY: Code stroke. Arm numbness and confusion. TECHNIQUE: Precontrast localizing scans were followed by CT angiography with an injection of 70mL Isovue-370 (accession [id number]), 50mL Isovue-370 (accession [id number]) IV with scans through the head and neck. Images were transferred to a separate 3-D workstation where multiplanar reformations and 3-D images were created. Estimates of carotid stenoses are made relative to the distal internal carotid artery diameters except as noted. Radiation dose for this scan was reduced using automated exposure control, adjustment of the mA and/or kV according to patient size, or iterative reconstruction technique. Perfusion scans were performed at three levels with injection of an additional 40 mL IV nonionic contrast and 20 mL saline flush. These images were processed on a separate 3-D workstation. COMPARISON: None. CT HEAD FINDINGS: No contrast enhancing lesions. Perfusion CT scan of the head appears normal. CT ANGIOGRAM HEAD FINDINGS: Arteries are widely patent with no aneurysm, significant stenosis, occlusion or intraarterial thrombus. Venous circulation is unremarkable. CT ANGIOGRAM NECK FINDINGS: Right carotid artery: Internal carotid is somewhat tortuous, meeting the left in the midline. No significant stenosis. Left carotid artery: Tortuous left internal carotid extending to the midline. No significant stenosis. Vertebral arteries: No significant stenosis. Other findings: There is a 3 cm cyst in the left anterior mediastinum of indeterminate etiology. There is a right posterior thyroid nodule to the right of the esophagus, 1.5 x 1.4 cm diameter. Impression IMPRESSION: 1. Tortuous internal carotid arteries. 2. Otherwise normal CT angiogram of the head and neck. 3. Normal perfusion CT scan of the head. 4. Right thyroid nodule. Ultrasound is suggested for further evaluation. 5. Left mediastinal cyst, incompletely imaged. Chest CT scan with contrast would be helpful for further evaluation when the patient is stable. There are no previous exams available for comparison. I called the report to Dr. Lizzy Lopez in the emergency room at 7:07 PM. SHANICE HYATT MD CTA Angiogram Head Neck Narrative CT ANGIOGRAM OF THE HEAD AND NECK WITHOUT AND WITH CONTRAST 05/02/2017 7:24 PM HISTORY: Code stroke. Arm numbness and confusion. TECHNIQUE: Precontrast localizing scans were followed by CT angiography with an injection of 70mL Isovue-370 (accession [id number]), 50mL Isovue-370 (accession [id number]) IV with scans through the head and neck. Images were transferred to a separate 3-D workstation where multiplanar reformations and 3-D images were created. Estimates of carotid stenoses are made relative to the distal internal carotid artery diameters except as noted. Radiation dose for this scan was reduced using automated exposure control, adjustment of the mA and/or kV according to patient size, or iterative reconstruction technique. Perfusion scans were performed at three levels with injection of an additional 40 mL IV nonionic contrast and 20 mL saline flush. These images were processed on a separate 3-D workstation. COMPARISON: None. CT HEAD FINDINGS: No contrast enhancing lesions. Perfusion CT scan of the head appears normal. CT ANGIOGRAM HEAD FINDINGS: Arteries are widely patent with no aneurysm, significant stenosis, occlusion or intraarterial thrombus. Venous circulation is unremarkable. CT ANGIOGRAM NECK FINDINGS: Right carotid artery: Internal carotid is somewhat tortuous, meeting the left in the midline. No significant stenosis. Left carotid artery: Tortuous left internal carotid extending to the midline. No significant stenosis. Vertebral arteries: No significant stenosis. Other findings: There is a 3 cm cyst in the left anterior mediastinum of indeterminate etiology. There is a right posterior thyroid nodule to the right of the esophagus, 1.5 x 1.4 cm diameter. Impression IMPRESSION: 1. Tortuous internal carotid arteries. 2. Otherwise normal CT angiogram of the head and neck. 3. Normal perfusion CT scan of the head. 4. Right thyroid nodule. Ultrasound is suggested for further evaluation. 5. Left mediastinal cyst, incompletely imaged. Chest CT scan with contrast would be helpful for further evaluation when the patient is stable. There are no previous exams available for comparison. I called the report to Dr. Lizzy Lopez in the emergency room at 7:07 PM. SHANICE HYATT MD AL SUPPLY CHAIN VICE PRESIDENT Shaye Torres DO - 05/03/2017 8:58 AM CST Pt seen and examined. States she lives at home with but is falling and still driving despiteprogressive memory issues. OT consult for home safety. Medically ready to d/c with close outpt neurology f/u already scheduled. ok to d/c IVF. Pt noted to be hypokalemic yesterday---will recheck potassium and magnesium level this am and supplement if needed. AL SUPPLY CHAIN VICE PRESIDENT Quyen Sierra, MICHI - 05/03/2017 3:57 AM CST PRIMARY DIAGNOSIS: GENERALIZED WEAKNESS OUTPATIENT/OBSERVATION GOALS TO BE MET BEFORE DISCHARGE 1. Orthostatic performed: N/A 2. Tolerating PO medications: Yes 3. Return to near baseline physical activity: No 4. Cleared for discharge by consultants (if involved): No VSS on RA. Pt denies pain, n/v. Resting in bed between cares, using call light to ambulate to bathroom, up with A1, walker and belt. Voiding without saving, continent. IVF infusing to PIV. Forgetful, oriented to conversation and able to make needs known. Bed alarms in use, pt not attempting to exit bed. Continue to monitor. Surveillance Sensor Operator Nurse Safe discharge environment identified: Yes Barriers to discharge: Yes Entered by: Quyen Sierra 05/03/2017 7:57 AM Please review provider order for any additional goals. Nurse to notify provider when observation goals have been met and patient is ready for discharge. AL SUPPLY CHAIN VICE PRESIDENT Quyen Sierra RN - 05/03/2017 12:17 AM CST PRIMARY DIAGNOSIS: GENERALIZED WEAKNESS OUTPATIENT/OBSERVATION GOALS TO BE MET BEFORE DISCHARGE 1. Orthostatic performed: No 2. Tolerating PO medications: Yes 3. Return to near baseline physical activity: No 4. Cleared for discharge by consultants (if involved): No VSS, BP soft on RA. Denies pain, n/v, CP. Reports bilateral UE numbness/tingling at baseline. Unsteady, up with A1 and walker. Voiding, not saving. PIV SL, awaiting arrival of tele unit. Forgetful and repetitive. Unsure of reason for admission, arrival to hospital. Bed alarms in use, pt not attemptingto exit bed. Able to make needs known, oriented to conversation. Continue to monitor. Surveillance Sensor Operator Nurse Safe discharge environment identified: No Barriers to discharge: Yes Entered by: Quyen Sierra 05/03/2017 12:17 AM Please review provider order for any additional goals. Nurse to notify provider when observation goals have been met and patient is ready for discharge. AL SUPPLY CHAIN VICE PRESIDENT Quyen Sierra RN - 05/02/2017 10:42 PM CST ROOM #[facility] Living Situation (if not independent, order SW consult): Independent with Facility name: bus person dishwasher: Mayo Vyas, Activity level at baseline: Independent per pt report Activity level on admit: A1 with walker Patient registered to observation; given Patient Bill of Rights; given the opportunity to ask questions about observation status and their plan of care. Patient has been oriented to the observation room, bathroom and call light is in place. Discussed discharge goals and expectations with patient/family. AL SUPPLY CHAIN VICE PRESIDENT documented in this encounter H&P Notes Roel Geiger MD - 05/02/2017 10:52 PM CST [facility] Hospitalist Admission Note Name: Fidelia Vyas Date of : 1935 Age: [age] year old Date of admission: 05/02/2017 Primary care provider: Allyson Pool Assessment and Plan: Fidelia Vyas is a 81 year old female With priro hx of CAD, previous Vfib arrest in 2002, dementia, GERD, hypertension and dyslipidemia who presented back again in the ED due to reported episode of weird sensation on her left arm and neck area and eventually thought that it might be numbness and tingling sensation. Recently she was also in the ED after she sustained a mechanical fall with resultinghip contusion. No other symptoms or complaints such as headache, facial asymmetry, slurred speech, blurred vision, headache and focal weakness was reported. she also denies nuasea/vomiting, SOB, fever nor chills. 1. Numbness and tingling earlier reports as unilateral (left) but now on bilateral area- Previously known and diagnosed with neuropathy. Seen by neurology earlier and already had a thoroughwork-up for these with recommendations for OT input as outpatient. - I do not think we need to add further more for any work-up with this 2. Hx of dementia- being worked up as well by her neurologist.- it was felt that possible early alzheimer's dementia - plans for repeat Brain MRI next week as per her neurologist 3. CAD 4. Hypertension PT input for recent falls. Tele-monitor for now and repeat troponin. If negative no further work-up here in the hospital. Low suspicion for cardiac origin of earlier numbness. No further need for neurology input here as she has an established plans with her neurologist as outpatient. I encourage that we take a look at her CARE everywhere so no further repetition of diagnostics. Discussed this with the patient and her daughter as well. Code status: full Observation status. May go home in 1 day Prophylaxis: ambulate, PCD;s if staying more than 1 day Disposition: home Chief Complaint: Numbness and tingling with earlier report as one sided on left side but patient is now saying it is bilateral Source of Information: Patient with poor to fair reliability. Daughter at bedside Discussion with ED physician Review of E chart records History of Present Illness: Fidelia Vyas is a 81 year old female With priro hx of CAD, previous Vfib arrest in 2002, dementia, GERD, hypertension and dyslipidemia who presented back again in the ED due to reported episode of weird sensation on her left arm and neck area and eventually thought that it might be numbness and tingling sensation. Recently she was also in the ED after she sustained a mechanical fall with resultinghip contusion. No other symptoms or complaints such as headache, facial asymmetry, slurred speech, blurred vision, headache and focal weakness was reported. she also denies nuasea/vomiting, SOB, fever nor chills. At the ED CODE stroke was activated and diagnostics were negative and her symptoms were very vague and comes and go. Decision not to give any reperfusion therapy was made. As per chart review it showed that patient had prior occurrence of this symptom and when asked Fidelia stated that it is similar to the previously described tingling sensation and this time she stated that it is happening on bilateral UE. This was investigated previously and as per her daughter she wasseen by a neurologist and EMG was pursued and diagnosed with neuropathy. She had an MRI of the brainrecently but was techincally difficult as she became claustrophobic and was re-scheduled next week. During the time of exam, Fidelia remained calm, pleasant, cooperative and has no further complaints. Our ED physician had some concerns if this is coming from a cardiac etiology as she has an troponin of 0.016 hence this request to us for further care. Past Medical History: Past Medical History: Diagnosis Date ??? Arrhythmia Pac, Pat ??? CAD (coronary artery disease) 1980 unrecognized Lcx PR, 2002 AWMI with VF: Lcx 100% chronic, LAD-POBA (couldn't get a stent down Ca Lad, but f/u cath Lad 60%-likely could rotastent if needed) RCA 50% ??? Cardiac arrest (H) 64 years old ??? GERD (gastroesophageal reflux disease) ??? H/O benign breast biopsy ??? History of cellulitis ??? History of varicose veins ??? Hyperlipidemia ??? Hypertension ??? Lung nodule followed by pmd ??? Myocardial infarction 44 years old ??? NONSPECIFIC MEDICAL HISTORY false + nuc gxt ??? Obesity Past Surgical History: Past Surgical History: Procedure Laterality Date ??? [...] med mgt. ??? STRIP VEIN ??? TONSILLECTOMY Social History: Social History Substance Use Topics ??? Smoking status: Never Smoker ??? Smokeless tobacco: Not on file ??? Alcohol use 0.0 oz/week 0 Standard drinks or equivalent per week Comment: couple per week Family History: Family history was fully reviewed and non-contributory in this case. Allergies: Allergies Allergen Reactions ??? Atorvastatin Muscle aches ??? Morphine Sulfate [Morphine] Nausea and Vomiting Medications: Prior to Admission medications Medication Sig Last Dose Taking? Auth Provider AMLODIPINE BESYLATE PO Take 2.5 mg by mouth every evening 05/01/2017 at Unknown time Yes Unknown, Entered By History LABETALOL HCL PO Take 50 mg by mouth daily 05/02/2017 at Unknown time Yes Unknown, Entered By History LABETALOL HCL PO Take 100 mg by mouth At Bedtime 05/01/2017 at Unknown time Yes Unknown, Entered By History triamterene-hydrochlorothiazide (MAXZIDE-25) 37.5-25 MG per tablet Take 0.5 tablets by mouth At Bedtime 05/01/2017 at Unknown time Yes Unknown, Entered By History VITAMIN D, CHOLECALCIFEROL, PO Take 1,000 Units by mouth daily 05/02/2017 at Unknown time Yes Unknown, Entered By History rosuvastatin (CRESTOR) 40 MG tablet Take 1 tablet (40 mg) by mouth daily 05/02/2017 at Unknown time Yes Guillermo Martinez MD nitroglycerin (NITROSTAT) 0.[address] 1 tablet (0.4 mg) under the tongue every 5 minutes as needed for chest pain Yes Guillermo Martinez MD PARoxetine (PAXIL) 10 MG tablet 10 mg 05/02/2017 at Unknown time Yes Reported, Patient DONEPEZIL HCL PO Take 10 mg by mouth daily Unknown, Entered By History Review of Systems: A Comprehensive greater than 10 system review of systems was carried out. Pertinent positives and negatives are noted above. Otherwise negative for contributory information. Physical Exam: Blood pressure 134/67, pulse 76, temperature 98.3 ??F (36.8 ??C), temperature source Oral, resp. rate 18, height 1.676 m (5' 6), weight 98.9 kg (218 lb), SpO2 95 %. Wt Readings from Last 1 Encounters: 05/02/17 98.9 kg (218 lb) Exam: GENERAL: No apparent distress. Awake, alert, and fully oriented. HEENT: Normocephalic, atraumatic. Extraocular movements intact. CARDIOVASCULAR: Regular rate and rhythm without murmurs or rubs. No JVD PULMONARY: Clear to auscultation, no wheezes, crackles ABDOMINAL: Soft, non-tender, non-distended. Bowel sounds normoactive. No hepatosplenomegaly. EXTREMITIES: No cyanosis or clubbing. Non pitting edema on both LE NEUROLOGICAL: CN 2-12 grossly intact, awake and alert x3, spontaneous and coherent speech. no focal neurological deficits. Poor memory recall on short term memory,follow commands DERMATOLOGICAL: No rash, ulcer, ecchymoses, jaundice. Multiple scratch fong on both Le Psych: not agitation, not combative, pleasant mood Data: EKG: sinsu bradycardia at 58 bpm PAC's and 1st degree av block Imaging: Results for orders placed or performed during the hospital encounter of 05/02/17 CT Head w/o Contrast Narrative CT SCAN OF THE HEAD WITHOUT CONTRAST 05/02/2017 6:51 PM HISTORY: Code stroke. Hand numbness and confusion. TECHNIQUE: Axial images of the head and coronal reformations without IV contrast material. Radiation dose for this scan was reduced using automated exposure control, adjustment of the mA and/or kV according to patient size, or iterative reconstruction technique. COMPARISON: None. FINDINGS: There is generalized atrophy of the brain. There is low attenuation in the white matter of the cerebral hemispheres consistent with sequelae of small vessel ischemic disease. 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 There is no evidence of intracranial hemorrhage, mass, acute infarct or anomaly. The visualized portions of the sinuses and mastoids appear normal. There is no evidence of trauma. Impression IMPRESSION: 1. No acute abnormality. 2. Atrophy of the brain. White matter changes consistent with sequelae of small vessel ischemic disease. 3. Old lacunar infarcts in the white matter of the durant radiata on the right and left external capsule. SHANICE HYATT MD CT Head w Contrast Narrative CT ANGIOGRAM OF THE HEAD AND NECK WITHOUT AND WITH CONTRAST 05/02/2017 7:24 PM HISTORY: Code stroke. Arm numbness and confusion. TECHNIQUE: Precontrast localizing scans were followed by CT angiography with an injection of 70mL Isovue-370 (accession [id number]), 50mL Isovue-370 (accession [id number]) IV with scans through the head and neck. Images were transferred to a separate 3-D workstation where multiplanar reformations and 3-D images were created. Estimates of carotid stenoses are made relative to the distal internal carotid artery diameters except as noted. Radiation dose for this scan was reduced using automated exposure control, adjustment of the mA and/or kV according to patient size, or iterative reconstruction technique. Perfusion scans were performed at three levels with injection of an additional 40 mL IV nonionic contrast and 20 mL saline flush. These images were processed on a separate 3-D workstation. COMPARISON: None. CT HEAD FINDINGS: No contrast enhancing lesions. Perfusion CT scan of the head appears normal. CT ANGIOGRAM HEAD FINDINGS: Arteries are widely patent with no aneurysm, significant stenosis, occlusion or intraarterial thrombus. Venous circulation is unremarkable. CT ANGIOGRAM NECK FINDINGS: Right carotid artery: Internal carotid is somewhat tortuous, meeting the left in the midline. No significant stenosis. Left carotid artery: Tortuous left internal carotid extending to the midline. No significant stenosis. Vertebral arteries: No significant stenosis. Other findings: There is a 3 cm cyst in the left anterior mediastinum of indeterminate etiology. There is a right posterior thyroid nodule to the right of the esophagus, 1.5 x 1.4 cm diameter. Impression IMPRESSION: 1. Tortuous internal carotid arteries. 2. Otherwise normal CT angiogram of the head and neck. 3. Normal perfusion CT scan of the head. 4. Right thyroid nodule. Ultrasound is suggested for further evaluation. 5. Left mediastinal cyst, incompletely imaged. Chest CT scan with contrast would be helpful for further evaluation when the patient is stable. There are no previous exams available for comparison. I called the report to Dr. Lizzy Lopez in the emergency room at 7:07 PM. SHANICE HYATT MD CTA Angiogram Head Neck Narrative CT ANGIOGRAM OF THE HEAD AND NECK WITHOUT AND WITH CONTRAST 05/02/2017 7:24 PM HISTORY: Code stroke. Arm numbness and confusion. TECHNIQUE: Precontrast localizing scans were followed by CT angiography with an injection of 70mL Isovue-370 (accession [id number]), 50mL Isovue-370 (accession [id number]) IV with scans through the head and neck. Images were transferred to a separate 3-D workstation where multiplanar reformations and 3-D images were created. Estimates of carotid stenoses are made relative to the distal internal carotid artery diameters except as noted. Radiation dose for this scan was reduced using automated exposure control, adjustment of the mA and/or kV according to patient size, or iterative reconstruction technique. Perfusion scans were performed at three levels with injection of an additional 40 mL IV nonionic contrast and 20 mL saline flush. These images were processed on a separate 3-D workstation. COMPARISON: None. CT HEAD FINDINGS: No contrast enhancing lesions. Perfusion CT scan of the head appears normal. CT ANGIOGRAM HEAD FINDINGS: Arteries are widely patent with no aneurysm, significant stenosis, occlusion or intraarterial thrombus. Venous circulation is unremarkable. CT ANGIOGRAM NECK FINDINGS: Right carotid artery: Internal carotid is somewhat tortuous, meeting the left in the midline. No significant stenosis. Left carotid artery: Tortuous left internal carotid extending to the midline. No significant stenosis. Vertebral arteries: No significant stenosis. Other findings: There is a 3 cm cyst in the left anterior mediastinum of indeterminate etiology. There is a right posterior thyroid nodule to the right of the esophagus, 1.5 x 1.4 cm diameter. Impression IMPRESSION: 1. Tortuous internal carotid arteries. 2. Otherwise normal CT angiogram of the head and neck. 3. Normal perfusion CT scan of the head. 4. Right thyroid nodule. Ultrasound is suggested for further evaluation. 5. Left mediastinal cyst, incompletely imaged. Chest CT scan with contrast would be helpful for further evaluation when the patient is stable. There are no previous exams available for comparison. I called the report to Dr. Lizzy Lopez in the emergency room at 7:07 PM. SHANICE HYATT MD XR Chest 2 Views Narrative CHEST TWO VIEWS 05/02/2017 7:11 PM HISTORY: Weakness. Impression IMPRESSION: The lungs appear clear. Mediastinal prominence may be related to the AP positioning. Upper lobe vascular congestion is suspected. However, there is no evidence of pleural effusion. Labs: No results for input(s): CULT in the last 168 hours. Recent Labs Lab 05/02/17183505/02/171832 NA -- 139 POTASSIUM -- 3.2* CHLORIDE -- 103 CO2 -- 29 ANIONGAP -- 7 GLC -- 92 BUN -- 18 CR -- 0.84 GFRESTIMATED 60* 66 GFRESTBLACK 73 80 RANDA -- 8.1* Recent Labs Lab 05/02/171832 WBC 8.5 HGB 13.3 HCT 40.0 MCV 91 PLT 143* Recent Labs Lab 05/02/17183205/02/17 183 GLC 92 -- BGM -- 85 Recent Labs Lab 05/02/17203005/02/171832 TROPI 0.016 0.016 Recent Labs Lab 05/02/172118 COLOR Yellow APPEARANCE Clear URINEGLC Negative URINEBILI Negative URINEKETONE 5* SG 1.010 UBLD Small* URINEPH 6.0 PROTEIN Negative NITRITE Negative LEUKEST Negative RBCU 1 WBCU 4* [employer] VICE PRESIDENT documented in this encounter Consult Notes Minnie Richards RN - 05/03/2017 9:30 AM CSTAssociated Order(s): YARN INSPECTOR IP CONSULT CTS consulted for DC planning. Spoke to pt over phone. He explained that pt has had a progressive decline in last 2-3 months. Her memory is very poor. Per her , she will sit at edge of bed and need help to stand. Its like she forgot how to stand up! She is showing a lot of anger/frustration over not being able to do things or remember things on her own. She has had 2 recent falls. 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 DME include a walker- which she doesn't use or needs help to use. She also has a shower chair- helps with ADLs. She has an appointment with her neurologist on 05/07 for f/u and complete an MRI. Plan for OT to eval. Will wait for their recommendations. Minnie Richards RN,BSN, CTS [facility] Care Coordination [phone] [employer] VICE PRESIDENT documented in this encounter ED Notes Quyen Sierra RN - 05/02/2017 9:30 PM CST [facility] ED Nurse Handoff Report Fidelia Vyas is a 81 year old female ED Chief complaint: Numbness . ED Diagnosis: Final diagnoses: Arm heaviness Generalized muscle weakness Allergies: Allergies Allergen Reactions ??? Atorvastatin Muscle aches ??? Morphine Sulfate [Morphine] Nausea and Vomiting Code Status: Full Code Activity level - Baseline/Home: Independent. Activity Level - Current: Independent. Lift room needed: No. Bariatric: No Senior Staff Accountant Needed: No Isolation: No. Infection: Not Applicable. Vital Signs: Vitals: 05/02/17201405/02/17 2030 05/02/17 2045 05/02/17 2100 BP: 140/70 142/79 143/60 108/55 Resp: Temp: TempSrc: SpO2: Weight: Height: Cardiac Rhythm: , Pain level: 0-10 Pain Scale: 0 Patient confused: No. Patient Falls Risk: Yes. Elimination Status: Has voided Patient Report - Initial Complaint: Pt arrives via EMS from home d/t numbness in hands for past 3 hrs. Per , pt has been falling more. Isn't able to dress herself, drops her coffee cup. Hx neuropathy. EKG SR with 1st degree AV block. Pt had fall on Sat, was seen in ED. BG 99. Denies CP, SOB, CALVO, n/v/d, lightheadedness/dizziness, visual changes. [place] negative. ABC intact. A&O x4 . Focused Assessment: Bilateral UE numbness. NIHSS 0 Tests Performed: CT head, neck/angio. Abnormal Results: wnl Treatments provided: nitro SL x1, no relief Family Comments: went home. Rkgphmoe-[id number]-[id number] at bedside OBS brochure/video discussed/provided to patient: Yes ED Medications: Medications 0.9% sodium chloride BOLUS (0 mLs Intravenous Stopped 05/02/172129) Followed by 0.9% sodium chloride infusion (not administered) nitroGLYcerin (NITROSTAT) sublingual tablet 0.4 mg (0.4 mg Sublingual Given 05/02/172056) 0.9% sodium chloride BOLUS (0 mLs Intravenous Stopped 05/02/171909) iopamidol (ISOVUE-370) solution 500 mL (120 mLs Intravenous Given 05/02/171922) Drips infusing: No For the majority of the shift, the patient's behavior Green. Interventions performed were n/a. Severe Sepsis OR Septic Shock Diagnosis Present: No ED Nurse Name/Phone Number: Jonathan Mclaughlin, 9:31 PM RECEIVING UNIT ED HANDOFF REVIEW Above ED Nurse Handoff Report was reviewed: Yes Reviewed by: Quyen Sierra on May 02, 2017 at 10:06 PM AL [employer]Y CHAIN VICE PRESIDENT Beth Weber RN - 05/02/2017 9:05 PM CST No change in L shoulder pain after nitro. SBP drop 30 pts. Will hold off on additional nitro. MD updated. [employer] SUPPLY CHAIN VICE PRESIDENT Beth Weber RN - 05/02/2017 6:19 PM CST Pt arrives via EMS from home d/t numbness in hands for past 3 hrs. Per , pt has been falling more. Isn't able to dress herself, drops her coffee cup. Hx neuropathy. EKG SR with 1st degree AV block. Pt had fall on Sat, was seen in ED. BG 99. Denies CP, SOB, CALVO, n/v/d, lightheadedness/dizziness, visual changes. [place] negative. ABC intact. A&O x4. AL SUPPLY CHAIN VICE PRESIDENT Jaki Winston RN - 05/02/2017 6:08 PM CST Bed: ED28 Expected date: Expected time: Means of arrival: Comments: [place] [phone] AL SUPPLY CHAIN VICE PRESIDENT Lizzy Lopez MD - 05/02/2017 6:08 PM CST History Chief Complaint: Numbness GYPSY Vyas is a 81 year old female with dementia and history of two heart attacks who presents to the emergency department with her and son for evaluation of numbness. The patient's reports increasing memory trouble lately with her dementia but this has progressed over multiple weeks and is not new today. The patient was seen here in the emergency department by me on 04/27/2017 for a mild, witnessed mechanical fall. She presented to the emergency department after the fall with mild hip pain and had a workup here which included an x-ray and was unremarkable. The patient's notes that she has had some difficulty walking since this fall but has been able to use her walker.She had another mechanical fall on 04/24/17, upon feeling nauseous after eating as she typically does- it again appeared straightforward, with a clear mechanism, no loss of consciousness or new symptoms afterward. After that fall, the patient had no pain but did have difficulty getting up on her own. The patient's and son report that she was in the garage today at about 1700 when she called to him complaining of pain, heaviness, and tingling to her left arm that radiated down the arm and to the fingertips. The patient reports a weird feeling in her whole arm which radiated intoher neck, and the feeling is still lingering now. The tingling has persisted steadily since onset. Family note no history of same. She currently reports no pain, just some slight discomfort to her right hip from the previous fall. She also denies any chest discomfort, pain, pressure, or shortness of breath or palpitations throughout the course of her episode today. Denies any neck pain, back pain, lexa ulder or hip pain since the fall. The patient reports no recent fevers, coughing, or other illness. The patient is not on any blood thinners, but her gave her two aspirin tablets today for her arm pain. She has no history of stroke in the past. Allergies: Atorvastatin Morphine Sulfate [Morphine] Medications: Crestor Norvasc Normodyne Lotensin Nitrostat Paxil Aspirin Pepcid Past Medical History: Arrhythmia CAD (coronary artery disease) Cardiac arrest GERD (gastroesophageal reflux disease) H/O benign breast biopsy History of cellulitis History of varicose veins Hyperlipidemia Hypertension Lung nodule Myocardial infarction Obesity Past Surgical History: Appendectomy Total abdominal hysterectomy Cholecystectomy Coronary angiography x 4 Strip vein Tonsillectomy Family History: Heart Failure Father Arterial Stenosis Mother CAD Son Social History: The patient was accompanied to the emergency department by her and son. Smoking Status: Never Smoker Smokeless Tobacco: Unknown Alcohol Use: Occasional Marital Status: Review of Systems Constitutional: Negative for fever. Respiratory: Negative for cough, chest tightness and shortness of breath. Cardiovascular: Negative for chest pain and palpitations. Musculoskeletal: Left arm pain Neurological: Positive for weakness (left arm) and numbness (left arm). All other systems reviewed and are negative. Physical Exam Patient Vitals for the past 24 hrs: BP Temp Temp src Heart Rate Resp SpO2 Height Weight 05/02/172029 142/79 - - - - - - - 05/02/172014 140/70 - - - - - - - 05/02/171999 125/73 - - - - 92 % - - 05/02/171944 150/73 - - - - 94 % - - 05/02/171929 153/69 - - - - 96 % - - 05/02/171914 148/65 - - - - 92 % - - 05/02/171814 - - - - - 97 % - - 05/02/171812 168/67 98.3 ??F (36.8 ??C) Oral 61 16 97 % 1.676 m (5' 6) 98.9 kg (218 lb) Physical Exam Constitutional: Well developed, Well nourished, completely comfortable HENT: Bilateral external ears normal, Mucous membranes moist, Nose normal. Neck- Normal range of motion, Supple Eyes: PERRL, EOMI, conjunctivae unremarkable Respiratory: Normal breath sounds, No respiratory distress, No wheezing, Cardiovascular: Normal heart rate, Normal rhythm, No murmurs, GI: Bowel sounds normal, Soft, No tenderness, Musculoskeletal: Intact distal pulses, No edema, grossly unremarkable range of motion. No tendernessto palpation over the midline C-spine nor over the left clavicle, AC joint or proximal humerus. Integument: Warm, Dry. Medium-sized subacute contusion over left proximal humerus. Neurological: Alert, attentive and oriented to person, place and time Cranial nerves 2-12 intact; 5/5 strength throughout the upper and lower extremities; Sensation intact to light touch throughout the upper and lower extremities; Psychiatric: Mood and affect normal. National Institutes of Health Stroke Scale Exam Interval: Baseline at 1830 Score Level of consciousness: (0) Alert, keenly responsive LOC questions: (0) Answers both questions correctly LOC commands: (0) Performs both tasks correctly Best gaze: (0) Normal Visual: (0) No visual loss Facial palsy: (0) Normal symmetrical movements Motor arm (left): (1) Drift Motor arm (right): (0) No drift Motor leg (left): (0) No drift Motor leg (right): (0) No drift Limb ataxia: (0) Absent Sensory: (0) Normal- no sensory loss Best language: (0) Normal- no aphasia Dysarthria: (0) Normal Extinction and inattention: (0) No abnormality Total Score: 1 Emergency Department Course ECG 1: ECG taken at 1834, ECG read at 1838 Sinus bradycardia with 1st degree AV block Left axis deviation Septal infarct, age undetermined Abnormal ECG All cited on previous report from 12/02/08 Rate 58 bpm. VT interval 256 ms. QRS duration 100 ms. QT/QTc 456/447 ms. P-R-T axes 55 -30 14. ECG 2: ECG taken at 2022, ECG read 2030 Sinus bradycardia with 1st degree AV block with premature atrial complexes Otherwise normal ECG No significant change compared to ECG from today 05/02/17 at 1834 Rate 58 bpm. VT interval 222 ms. QRS duration 110 ms. QT/QTc 478/469 ms. P-R-T 27 -28 10. Imaging: Radiology findings were communicated with the patient and family who voiced understanding of the findings. CT Head w Contrast 1. Tortuous internal carotid arteries. 2. Otherwise normal CT angiogram of the head and neck. 3. Normal perfusion CT scan of the head. 4. Right thyroid nodule. Ultrasound is suggested for further evaluation. 5. Left mediastinal cyst, incompletely imaged. Chest CT scan with contrast would be helpful for further evaluation when the patient is stable. There are no previous exams available for comparison. Reading per radiology. I called the report to Dr. Lizzy Lopez in the emergency room at 7:07 PM. CTA Angiogram Head Neck 1. Tortuous internal carotid arteries. 2. Otherwise normal CT angiogram of the head and neck. 3. Normal perfusion CT scan of the head. 4. Right thyroid nodule. Ultrasound is suggested for further evaluation. 5. Left mediastinal cyst, incompletely imaged. Chest CT scan with contrast would be helpful for further evaluation when the patient is stable. There are no previous exams available for comparison. Reading per radiology. I called the report to Dr. Lizzy Lopez in the emergency room at 7:07 PM. XR Chest 2 Views The lungs appear clear. Mediastinal prominence may be related to the AP positioning. Upper lobe vascular congestion is suspected. However, there is no evidence of pleural effusion. Reading per radiology. CT Head w/o Contrast 1. No acute abnormality. 2. Atrophy of the brain. White matter changes consistent with sequelae of small vessel ischemic disease. 3. Old lacunar infarcts in the white matter of the durant radiata on the right and left external capsule. Reading per radiology. Laboratory: Laboratory findings were communicated with the patient and family who voiced understanding of the findings. UA: Ketone 5 (A), Blood Small (A), Urobilinogen mg/dL 4.0 (H), WBC/HPF 4 (H), Mucous Present (A) Troponin (Collected 2030): 0.016 Troponin (Collected 1832): 0.016 Glucose by meter (Collected 1831): 85 Creatinine POCT (Collected 1835): GFR Estimate 60 (L), o/w WNL CBC: WBC 8.5, HGB 13.3, PLT 143 (L) BMP: Potassium 3.2 (L), Calcium 8.1 (L) o/w WNL (Creatinine 0.84) INR: 0.99 PTT: 27 Interventions: 1908 NS Bolus IV 2056 Nitrostat 0.4 mg, Sublingual Emergency Department Course: Nursing notes and vitals reviewed. I performed an exam of the patient as documented above. IV was inserted and blood was drawn for laboratory testing, results above. The patient was sent for an x-ray, head CT, and CTA angiogram head and neck while in the emergency department, results above. [address] Yoo of neurology, who agreed patient does not meet criteria for TPA based on low stroke scale and the mild and vague nature of symptoms. He did agree with the plan for admission of patient for further treatment and evaluation, including for possible cause of TPA or seizure. 1905 I spoke with radiology, who reports that the patient's CT and CTA angiogram are unremarkable. 2017 I checked on the patient. Denies any new symptoms, exam appears unchanged, with perhaps very subtle left arm drift. 2043 I discussed the treatment plan with the patient. They expressed understanding of this plan and consented to admission. I discussed the patient with Dr. Geiger, who will admit the patient to a monitored bed for further evaluation and treatment. I personally reviewed the results with the patient and her family and answered all related questionsprior to admission. Impression & Plan Medical Decision Making: Fidelia Vyas is a 81 year old female who presents for evaluation of new left arm paresthesia and weakness. The workup here in the emergency room was to evaluate for infections, metabolic, electrolyte, neurologic, muscle or cardiovascular causes. Of note, there are no signs of pneumonia or UTI causing the symptoms. Spinal pathology was considered given history of recent falls, but this was a low impact mechanism the patient has no other symptoms including no neck pain. Given the left arm paresthesia, TIA/CVA were considered, and stroke code was initiated and case was discussed with neurology. Based on low NIH stroke score and perfusion not showing acute CVA, they are not a candidate for TPA. Also considered cardiac equivalent given the location of the symptoms. Initial and repeat EKG showed no changes. Initial troponin was not above upper limits of normal, repeat troponin was unchanged. Will admit to medicine with neurology consulting for further cares. Will need further workup as inpatient fo r her symptoms including general weakness. Family agreed with plan. Diagnosis: ICD-10-CM 1. Arm heaviness R29.898 Troponin I 2. Generalized muscle weakness M62.81 Disposition: The patient was admitted into the care of Dr. Geiger for further evaluation and management. Critical Care time was 30 minutes for this patient excluding procedures. [facility] Diagnoses: The patient has stroke symptoms: ED Stroke specific documentation NIHSS PDF Protocol PDF Patient last known well time: 1700 on 05/02/17 ED Provider first to bedside at: 1830 CT Results received at: 1906 Patient was not treated with TPA due to the following reason(s): Mild stroke symptoms ( NIHSS < 4 and not globally aphasic) National Institutes of Health Stroke Scale (Baseline) Time Performed: 1830 Score Level of consciousness: (0) Alert, keenly responsive LOC questions: (0) Answers both questions correctly LOC commands: (0) Performs both tasks correctly Best gaze: (0) Normal Visual: (0) No visual loss Facial palsy: (0) Normal symmetrical movements Motor arm (left): (1) Drift Motor arm (right): (0) No drift Motor leg (left): (0) No drift Motor leg (right): (0) No drift Limb ataxia: (0) Absent Sensory: (0) Normal- no sensory loss Best language: (0) Normal- no aphasia Dysarthria: (0) Normal Extinction and inattention: (0) No abnormality Total Score: 1 Stroke Mimics were considered (including migraine headache, seizure disorder, hypoglycemia (or hyperglycemia), head or spinal trauma, SCREWHEAD POLISHER infection, Toxin ingestion and shock state (e.g. sepsis) . National Institutes of Health Stroke Scale Time Performed: 2017 Total Score: 1 (unchanged from last stroke score) Scribe Disclosure: Roxanne Artis, am serving as a scribe at 6:27 PM on 05/02/2017 to document services personally performed by Lizzy Lopez MD based on my observations and the provider's statements to me. [facility] EMERGENCY DEPARTMENT Lizzy Lopez MD 05/02/17 4271 AL [employer]Y CHAIN VICE PRESIDENT documented in this encounter Miscellaneous Notes Plan of Care - Haylee Garcia RN - 05/04/2017 2:58 PM CST Problem: Patient Care Overview Goal: Plan of Care/Patient Progress Review Outcome: Adequate for Discharge Date Met: 05/04/17 OBSERVATION patient END time: 1450 Patient's After Visit Summary was reviewed with patient and family. Patient verbalized understanding of After Visit Summary, recommended follow up and was given an opportunity to ask questions. Discharge medications sent home with patient/family: Not applicable Discharged with family. [employer]Y CHAIN VICE PRESIDENT Plan of Care - Jorge Durham, PT - 05/04/2017 10:42 AM CST Problem: Patient Care Overview Goal: Plan of Care/Patient Progress Review PT: Received call from OBS unit that pt will need a FWW issued for home. Orders placed in chart, will issue FWW soon. [employer]Y CHAIN VICE PRESIDENT Plan of Care - Lety Moya RN - 05/04/2017 8:18 AM CST Problem: Patient Care Overview Goal: Plan of Care/Patient Progress Review PRIMARY DIAGNOSIS: increased confusion/numbness in hands OUTPATIENT/OBSERVATION GOALS TO BE MET BEFORE DISCHARGE: 1. ADLs back to baseline: Yes 2. Activity and level of assistance: Up with standby assistance. 3. Pain status: Pain free. 4. Return to near baseline physical activity: Yes Surveillance Sensor Operator Nurse Safe discharge environment identified: Yes Barriers to discharge: Yes Entered by: Lety Moya 05/04/2017 8:15 AM Please review provider order for any additional goals. Nurse to notify provider when observation goals have been met and patient is ready for discharge. VSS, able to answer questions appropriately though very forgetful, slightly disoriented to situationand place - thought she was here for an evaluation and was in a long-term, LS clear, room air, denies SOB, HR regular, BS A&Ax4, passing gas, voiding spontaneously, personal alarm in place for safety, calm and cooperative until plan of care reviewed, eager to get home for judit because [facility] this year, will continue to monitor and provide supportive cares. AL SUPPLY CHAIN VICE PRESIDENT Plan of Care - Jessie Chacko RN - 05/04/2017 4:25 AM CST Problem: Patient Care Overview Goal: Plan of Care/Patient Progress Review Outcome: Improving PRIMARY DIAGNOSIS: increased confusion and falls OUTPATIENT/OBSERVATION GOALS TO BE MET BEFORE DISCHARGE: 1. ADLs back to baseline: No- more confused than normal, but in denial. Is up SBA with walker 2. Activity and level of assistance: Up with standby assistance. 3. Pain status: Pain free. 4. Return to near baseline physical activity: Yes Surveillance Sensor Operator Nurse Safe discharge environment identified: No Barriers to discharge: yes, patient pending TCU vs 03/12 supervision. Disoriented to situation and time. Vitals stable on RA. Does c/o pain to L hip but states that its tolerable, declines any intervention. On tele, NSB HR 56. Plan for care coord. consult in the morning.Will continue to monitor. Please review provider order for any additional goals. Nurse to notify provider when observation goals have been met and patient is ready for discharge. AL SUPPLY CHAIN VICE PRESIDENT Plan of Care - Jessie Chacko RN - 05/04/2017 12:40 AM CST Problem: Patient Care Overview Goal: Plan of Care/Patient Progress Review Outcome: Improving PRIMARY DIAGNOSIS: increased confusion and falls OUTPATIENT/OBSERVATION GOALS TO BE MET BEFORE DISCHARGE: 1. ADLs back to baseline: No- more confused than normal, but in denial. Is up SBA with walker 2. Activity and level of assistance: Up with standby assistance. 3. Pain status: Pain free. 4. Return to near baseline physical activity: Yes Surveillance Sensor Operator Nurse Safe discharge environment identified: No Barriers to discharge: yes, patient pending TCU vs 03/12 supervision. Disoriented to situation and time. Vitals stable on RA. Does c/o pain to L hip but states that its tolerable, declines any intervention. On tele, NSB HR 56. Plan for care coord. consult in the morning.Will continue to monitor. Please review provider order for any additional goals. Nurse to notify provider when observation goals have been met and patient is ready for discharge. AL SUPPLY CHAIN VICE PRESIDENT Plan of Care - Jamila Coyle RN - 05/03/2017 9:11 PM CST Problem: Patient Care Overview Goal: Plan of Care/Patient Progress Review Outcome: Improving PRIMARY DIAGNOSIS: increased confusion and falls. OUTPATIENT/OBSERVATION GOALS TO BE MET BEFORE DISCHARGE: 1. ADLs back to baseline: yes and no... Physically patient is SBA with walker. Patient is more confused than usual, though she is in denial. Patient thinks she is safe to be discharge home with . 2. Activity and level of assistance: Up with standby assistance. 3. Pain status: Pain free. 4. Return to near baseline physical activity: Yes Surveillance Sensor Operator Nurse Safe discharge environment identified: No Barriers to discharge: yes, patient pending TCU vs 03/12 supervision. Entered by: Jamila Coyle 05/03/2017 9:04 PM Please review provider order for any additional goals. Nurse to notify provider when observation goals have been met and patient is ready for discharge. AL SUPPLY CHAIN VICE PRESIDENT Plan of Care - Stephanie Hollis RN - 05/03/2017 1:19 PM CST Problem: Patient Care Overview Goal: Plan of Care/Patient Progress Review Problem: Patient Care Overview Goal: Plan of Care/Patient Progress Review PRIMARY DIAGNOSIS: AMS and Numbness OUTPATIENT/OBSERVATION GOALS TO BE MET BEFORE DISCHARGE: 1. ADLs back to baseline: Yes, pain in left hip with ambulation at times ?? 2. Activity and level of assistance: Up with standby assistance, seen by OT ?? 3. Pain status: C/O mild lift lip pain, ice applied ?? 4. Return to near baseline physical activity: Yes ? Surveillance Sensor Operator Nurse Safe discharge environment identified: No Barriers to discharge: No Alert and disoriented to situation, short term memory loss, no c/o numbness, K+ 3.2 this AM, protocol added, replaced PO, c/o left hip pain w/ambulation, pt states she fell yesterday, XR complete, negative for fx, IVSL. Care coord consult added, maxide D/Ruben, 40mg daily diovan added, norvasc and labetalol parameters added. POC reviewed with patient, questions answered. AL SUPPLY CHAIN VICE PRESIDENT Plan of Care - Ekaterina Verduzco, OT - 05/03/2017 1:09 PM CST Problem: Patient Care Overview Goal: Plan of Care/Patient Progress Review OT-Evaluation and treatment completed. Patient is a 81 year old female with dementia and history of two heart attacks who presents to the emergency department with her and son for evaluation ofnumbness. The patient's reports increasing memory trouble lately with her dementia but this has progressed over multiple weeks and is not new today. The patient was seen here in the emergency department on 04/27/2017 for a mild, witnessed mechanical fall. She presented to the emergency department after the fall with mild hip pain and had a workup here which included an x-ray and was unremarkable. The patient's notes that she has had some difficulty walking since this fall but has been able to use her walker. She had another mechanical fall on 04/24/17, upon feeling nauseous after eating as she typically does- it again appeared straightforward, with a clear mechanism, no loss of consciousness or new symptoms afterward. After that fall, the patient had no pain but did have difficulty getting up on her own. The patient's and son report that she was in the garage today at about 1700 when she called to him complaining of pain, heaviness, and tingling to her left arm that radiated down the arm and to the fingertips. The patient reports a weird feeling in her whole arm which radiated into her neck, and the feeling is still lingering now. The tingling has persisted steadily since onset. Per patient report, she resides in rambler style home with spouse and uses a tub/shower combination with a shower chair and 2 grab bars- 1 to use while entering tub and one on inside wall of tub at a diagonal. Patient reports she has been I with all ADL's and IADL's, however states her spouse has beenhelping out with cooking, cleaning, med set-up and driving/errands. rehabilitation case coordinator had called spouse who reports, he has been A with all ADL's and IADL's has patient's memory has been declining for past 2-3 months. Patient has not dirven for about 2 weeks, patient reports she think she drove 1-2 days ago. Surveillance Sensor Operator OT Patient plan for discharge: not stated Current status: Patient demonstrates decreased cognitive- which is known to family. Patient has appointment to see neurology on 05/07 for further assessment. SLUMS complete for baseline with a score of15/30. Patient demonstrates significant deficits with short term memory and recall. Patient is oriented to time and place, and able to follow single step directions, however unable to follow multi stepdirections and cues needed to follow through. Mod I with bed mobility with heavy use of bedrails to A with supine<>sit. Patient observed to struggle with donning/doffing socks, A needed to don socks, due to poor hand function- patient reports vague numbness in hands, however noticeable B hand tremor observed during drawing the clock on SLUMS. This was also observed with various tasks- pulling paper towel from mason, pulling up pants. CGA,fww for functional mobility, however patient reports increased pain with mobility and is unable to ambulate more the 20 feet before asking to return back and go to bed. Patient rating pain 5/10 with functional mobility and asking for light pain medication, OT went to talk to RN and upon return told p atient the RN would come with pain meds, then the patient responded oh, I don't need pain meds. Patient observed to have noticeable limp and increased swelling on L hip - RN and MD notified. Barriers to return to prior living situation: below baseline for functional mobility and ADL's due to hip pain significant cognitive deficits Recommendations for discharge: TCU is recommended. However, if patient is unable to manage cost of TCU, patient will need 24/7 supervision with A with all transfers, ADL's as needed. It is highly recommended that patient no longer drive, cook, manage or have access to medications. Home OT/PT/ASSEMBLER INSTALLER STRUCTURES/RN services be initiated for in home care as well as a community social services analyst to A with further needs. Feel patient may need an eventual transfer to memory care facility Rationale for recommendations: patient is below baseline for functional mobility and ADL's, significant deficits in cognition. Will dc from OT services at this time, please reorder if status changes, if further mobility A is needed, please order PT.. Entered by: Ekaterina Verduzco 05/03/2017 12:44 PM Occupational Therapy Discharge Summary Reason for therapy discharge: All goals and outcomes met, no further needs identified. Progress towards therapy goal(s). See goals on Care Plan in Epic electronic health record for goal details. Goals met Therapy recommendation(s): Continued therapy is recommended. Rationale/Recommendations: see recommendations above for details. AL SUPPLY CHAIN VICE PRESIDENT Plan of Care - Stephanie Hollis RN - 05/03/2017 9:00 AM CST Problem: Patient Care Overview Goal: Plan of Care/Patient Progress Review PRIMARY DIAGNOSIS: AMS and Numbness OUTPATIENT/OBSERVATION GOALS TO BE MET BEFORE DISCHARGE: 1. ADLs back to baseline: Yes 2. Activity and level of assistance: Up with standby assistance, OT consult added 3. Pain status: Pain free. 4. Return to near baseline physical activity: Yes Surveillance Sensor Operator Nurse Safe discharge environment identified: No Barriers to discharge: No Entered by: Stephanie Hollis 05/03/2017 0900 Alert and disoriented to situation, no c/o numbness, K+ 3.2 this AM, protocol added, PT ordered D/Ruben, OT consult ordered. IVSL. AL SUPPLY CHAIN VICE PRESIDENT Pharmacy-Admission Medication History - Michael Kern [facility] - 05/02/2017 9:15 PM CST Admission medication history interview status for this patient is complete. See [facility] admission navigator for allergy information, prior to admission medications and immunization status. Admission medication history interview status for this patient is complete. See [facility] admission navigator for allergy information, prior to admission medications and immunization status. Medication history interview source(s):Family Medication history resources (including written lists, pill bottles, clinic record):med bottles Primary pharmacy:[facility] Changes made to SPINNING OPERATOR medication list: Added: donepezil, triamterene/hctz, vit d Deleted: aspirin, benazepril, famotidine Changed: labetalol 100 mg bid to 50 mg am and 100 mg pm Actions taken by pharmacist (provider contacted, etc):None Additional medication history information:None Medication reconciliation/reorder completed by provider prior to medication history? No Do you take OTC medications (eg tylenol, ibuprofen, fish oil, eye/ear drops, etc)? Y(Y/N) For patients on insulin therapy: N (Y/N) Lantus/levemir/NPH/Mix 70/30 dose: (Y/N) (see Med list for doses) Sliding scale Novolog Y/N If Yes, do you have a baseline novolog pre-meal dose: units with meals Patients eat three meals a day: Y/N How many episodes of hypoglycemia do you have per week: How many missed doses do you have per week: How many times do you check your blood glucose per day: Any Barriers to therapy - Be specific : cost of medications, comfortable with giving injections (ifapplicable), comfortable and confident with current diabetes regimen: Y/N Prior to Admission medications Medication Sig Last Dose Taking? Auth Provider AMLODIPINE BESYLATE PO Take 2.5 mg by mouth every evening 05/01/2017 at Unknown time Yes Unknown, Entered By History LABETALOL HCL PO Take 50 mg by mouth daily 05/02/2017 at Unknown time Yes Unknown, Entered By History LABETALOL HCL PO Take 100 mg by mouth At Bedtime 05/01/2017 at Unknown time Yes Unknown, Entered By History triamterene-hydrochlorothiazide (MAXZIDE-25) 37.5-25 MG per tablet Take 0.5 tablets by mouth At Bedtime 05/01/2017 at Unknown time Yes Unknown, Entered By History VITAMIN D, CHOLECALCIFEROL, PO Take 1,000 Units by mouth daily 05/02/2017 at Unknown time Yes Unknown, Entered By History rosuvastatin (CRESTOR) 40 MG tablet Take 1 tablet (40 mg) by mouth daily 05/02/2017 at Unknown time Yes Guillermo Martinez MD nitroglycerin (NITROSTAT) 0.[address] 1 tablet (0.4 mg) under the tongue every 5 minutes as needed for chest pain Yes Guillermo Martinez MD PARoxetine (PAXIL) 10 MG tablet 10 mg 05/02/2017 at Unknown time Yes Reported, Patient DONEPEZIL HCL PO Take 10 mg by mouth daily Unknown, Entered By History AL SUPPLY CHAIN VICE PRESIDENT documented in this encounter Plan of Treatment Scheduled Referrals Name Type Priority Associated Diagnoses Order S chedule Home care nursing Referral Routine Generalized muscle Orde red: 05/04/2017 referral weakness Home Care PT Referral Referral Routine Arm heaviness Order ed: 05/04/2017 for Hospital Discharge Home Care OT Referral Referral Routine Generalized muscle Ordered: 05/04/2017 for Hospital Discharge weakness Home Care Social Referral Routine Generalized muscle Order ed: 05/04/2017 Service Referral for weakness Hospital Discharge documented as of this encounter Procedures Procedure Name Priority Date/Time Associated Comments Diagnosis GLUCOSE BY METER Routine 05/04/2017 8:02 AM Arm heaviness Resu lts for this GLOBAL SUPPLY CHAIN VICE PRESIDENT procedure are i n the results section. POTASSIUM Timed 05/03/2017 7:07 PM Arm heaviness Results for this GLOBAL SUPPLY CHAIN VICE PRESIDENT procedure are i n the results section. XR PELVIS AND HIP STAT 05/03/2017 12:23 Result s for this BILATERAL 2 VIEWS PM GLOBAL SUPPLY CHAIN VICE PRESIDENT procedure are in the results section. TROPONIN I Timed 05/03/2017 6:27 AM Arm heaviness Results for this GLOBAL SUPPLY CHAIN VICE PRESIDENT procedure are i n the results section. POTASSIUM Routine 05/03/2017 6:27 AM Arm heaviness Results for this GLOBAL SUPPLY CHAIN VICE PRESIDENT procedure are i n the results section. MAGNESIUM Routine 05/03/2017 6:27 AM Arm heaviness Results for this GLOBAL SUPPLY CHAIN VICE PRESIDENT procedure are i n the results section. TROPONIN I Timed 05/03/2017 12:11 Arm heaviness Results fo r this AM GLOBAL SUPPLY CHAIN VICE PRESIDENT procedure are i n the results section. UA MACROSCOPIC WITH STAT 05/02/2017 9:19 PM Arm heaviness R esults for this REFLEX TO MICRO AND GLOBAL SUPPLY CHAIN VICE PRESIDENT procedur e are in CULTURE the results section. TROPONIN I STAT 05/02/2017 8:31 PM Arm heaviness Results for this GLOBAL SUPPLY CHAIN VICE PRESIDENT procedure are i n the results section. EKG 12-LEAD, TRACING STAT 05/02/2017 8:23 PM R esults for this ONLY GLOBAL SUPPLY CHAIN VICE PRESIDENT procedure are i n the results section. CTA HEAD NECK W STAT 05/02/2017 7:24 PM Result s for this CONTRAST GLOBAL SUPPLY CHAIN VICE PRESIDENT procedure are i n the results section. CT HEAD W CONTRAST STAT 05/02/2017 7:19 PM Res ults for this GLOBAL SUPPLY CHAIN VICE PRESIDENT procedure are i n the results section. XR CHEST 2 VIEWS STAT 05/02/2017 7:11 PM Resul ts for this GLOBAL SUPPLY CHAIN VICE PRESIDENT procedure are i n the results section. CT HEAD W/O CONTRAST STAT 05/02/2017 6:51 PM R esults for this GLOBAL SUPPLY CHAIN VICE PRESIDENT procedure are i n the results section. ISTAT CREATININE POCT Routine 05/02/2017 6:36 PM Results for this GLOBAL SUPPLY CHAIN VICE PRESIDENT procedure are i n the results section. EKG 12-LEAD, TRACING STAT 05/02/2017 6:34 PM R esults for this ONLY GLOBAL SUPPLY CHAIN VICE PRESIDENT procedure are i n the results section. CBC WITH PLATELETS & STAT 05/02/2017 6:33 PM R esults for this DIFFERENTIAL GLOBAL SUPPLY CHAIN VICE PRESIDENT procedure are i n the results section. TROPONIN I STAT 05/02/2017 6:33 PM Results f or this GLOBAL SUPPLY CHAIN VICE PRESIDENT procedure are i n the results section. INR STAT 05/02/2017 6:33 PM Results f or this GLOBAL SUPPLY CHAIN VICE PRESIDENT procedure are i n the results section. PARTIAL THROMBOPLASTIN STAT 05/02/2017 6:33 PM Results for this TIME GLOBAL SUPPLY CHAIN VICE PRESIDENT procedure are i n the results section. BASIC METABOLIC PANEL STAT 05/02/2017 6:33 PM Results for this GLOBAL SUPPLY CHAIN VICE PRESIDENT procedure are i n the results section. GLUCOSE BY METER Routine 05/02/2017 6:32 PM Resul ts for this GLOBAL SUPPLY CHAIN VICE PRESIDENT procedure are i n the results section. documented in this encounter Results Glucose by meter (05/04/2017 8:02 AM GLOBAL SUPPLY CHAIN VICE PRESIDENT) athologist Signature Glucose 83 70 - 99 05/04/2017 POINT OF CARE mg/dL 8:11 AM GLOBAL SUPPLY CHAIN VICE PRESIDENT TEST, GLUCOSE Specimen Anatomical Collection Method Collection Time Receive d Time (Source) Location / / Volume Laterality 05/04/2017 8:02 AM 7 8:11 GLOBAL SUPPLY CHAIN VICE PRESIDENT AM GLOBAL SUPPLY CHAIN VICE PRESIDENT Roel Geiger MD LAB - BEAKER POCT Performing Organization Address City/State/ZIP Code Phon e Number F[facility] POINT OF CARE TEST, GLUCOSE POINT OF CARE TEST, GLUCOSE Potassium (05/03/2017 7:07 PM GLOBAL SUPPLY CHAIN VICE PRESIDENT) P athologist Signature Potassium 3.6 3.4 - 5.3 05/03/2017 [facility] mmol/L 7:29 PM GLOBAL SUPPLY CHAIN VICE PRESIDENT HOSPITAL Specimen Anatomical Collection Method Collection Time Receive d Time (Source) Location / / Volume Laterality Blood specimen 05/03/2017 7:07 PM 017 7:08 (specimen) GLOBAL SUPPLY CHAIN VICE PRESIDENT PM GLOBAL SUPPLY CHAIN VICE PRESIDENT Shaye Torres DO LAB - BLOOD ORDERABLES Performing Organization Address City/[facility]/ZIP Code Phon e Number M [facility] [address], [place] [address] [facility] [address] [place] [phone] XR Pelvis and Hip Bilateral 2 Views (05/03/2017 12:23 PM GLOBAL SUPPLY CHAIN VICE PRESIDENT) Anatomical Region Laterality Modality Abdomen/Pelvis Bilateral Digital Radiography Specimen (Source) Anatomical Location Collection Method / Collectio n Time Received Time / Laterality Volume Impressions 05/03/2017 12:43 PM GLOBAL SUPPLY CHAIN VICE PRESIDENT IMPRESSION: ??No fracture or dislocation. 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 Arterial calcificat ions noted. SALMA OBRIEN MD Narrative 05/03/2017 12:43 PM GLOBAL SUPPLY CHAIN VICE PRESIDENT PELVIS WITH BILATERAL HIP THREE VIEWS ??05/03/2017 12:23 PM HISTORY: Recent fall and significant hip pain, L>R. Rule out fracture. COMPARISON: 04/27/2017 Procedure Note Salma Obrien MD - 05/03/2017Forma tting of this note might be different from the original. PELVIS WITH BILATERAL HIP THREE VIEWS 12:23 PM HISTORY: Recent fall and significant hip pain, L>R. Rule out fracture. COMPARISON: 04/27/2017 IMPRESSION: No fracture or dislocation. 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 Arterial calcificat ions noted. SALMA OBRIEN MD Shaye Torres DO IMG DIAGNOSTIC IMAGING ORDE RABLES Magnesium (05/03/2017 6:27 AM GLOBAL SUPPLY CHAIN VICE PRESIDENT) athologist Signature Magnesium 2.3 1.6 - 2.3 05/03/2017 [facility] mg/dL 9:54 AM [facility] Specimen Anatomical Collection Method Collection Time Receive d Time (Source) Location / / Volume Laterality 05/03/2017 6:27 AM 7 6:28 GLOBAL SUPPLY CHAIN VICE PRESIDENT AM GLOBAL SUPPLY CHAIN VICE PRESIDENT Roel Geiger MD LAB - BLOOD ORDERABLES Performing Organization Address City/[facility]/ZIP [facility] e [facility] [address], [place] [address] [place] [address] [address] [place] [address] [facility] [phone] (ABNORMAL) Potassium (05/03/2017 6:27 AM GLOBAL SUPPLY CHAIN VICE PRESIDENT) athologist Signature Potassium 3.2 (L) 3.4 - 5.3 05/03/2017 [place] mmol/L 9:54 AM [facility] Specimen Anatomical Collection Method Collection Time Receive d Time (Source) Location / / Volume Laterality 05/03/2017 6:27 AM 7 6:28 GLOBAL SUPPLY CHAIN VICE PRESIDENT AM GLOBAL SUPPLY CHAIN VICE PRESIDENT Roel Geiger MD LAB - BLOOD ORDERABLES Performing Organization Address City/[facility] e [facility] [address] [place] [address] [place] [address] [address] [place] [address] [facility] [phone] Troponin I (05/03/2017 6:27 AM GLOBAL SUPPLY CHAIN VICE PRESIDENT) athologist Signature Troponin I ES 0.020 0.000 - 05/03/2017 [place] 0.045 ug/L 7:01 AM [facility] Comment: The 99th percentile for upper reference range is 0.045 ug/L. ??Troponin values in the range of 0.045 - 0.120 ug/L may b e associated with risks of adverse clinical events. Specimen Anatomical Collection Method Collection Time Receive d Time (Source) Location / / Volume Laterality Blood specimen 05/03/2017 6:27 AM 017 6:28 (specimen) GLOBAL SUPPLY CHAIN VICE PRESIDENT AM GLOBAL SUPPLY CHAIN VICE PRESIDENT Roel Geiger MD LAB - BLOOD ORDERABLES Performing Organization Address [facility] Phon e Number Aleks [facility] [address] [place] [address] [place] [address] [address] [place] [address], [facility] [phone] Troponin I (05/03/2017 12:11 AM GLOBAL SUPPLY CHAIN VICE PRESIDENT) athologist Signature Troponin I ES 0.022 0.000 - 05/03/2017 [place] 0.045 ug/L 12:40 AM [facility] Comment: The 99th percentile for upper reference range is 0.045 ug/L. ??Troponin values in the range of 0.045 - 0.120 ug/L may b e associated with risks of adverse clinical events. Specimen Anatomical Collection Method Collection Time Receive d Time (Source) Location / / Volume Laterality Blood specimen 05/03/2017 12:11 7 (specimen) AM GLOBAL SUPPLY CHAIN VICE PRESIDENT 12:12 AM GLOBAL SUPPLY CHAIN VICE PRESIDENT Roel Geiger MD LAB - BLOOD ORDERABLES Performing Organization Address [facility] e Number Aleks [place] [address], [place] [address] [place] [address] [address] [place] [address], [facility] [phone] (ABNORMAL) UA reflex to Microscopic and Culture (05/02/2017 9:19 PM GLOBAL SUPPLY CHAIN VICE PRESIDENT) [facility] Method Time Signature Color Urine Yellow 05/02/2017 [facility] 9:52 PM [facility] Appearance Urine Clear 05/02/2017 [place] 9:52 PM [facility] Glucose Urine Negative NEG^Negat 05/02/2017 [place] mg/dL 9:52 PM [facility] Bilirubin Urine Negative NEG^Negat 05/02/2017 [place] 9:52 PM [facility] Ketones Urine 5 (A) NEG^Negat 05/02/2017 [place] mg/dL 9:52 PM [facility] Specific [place] 1.010 1.003 - 05/02/2017 [place] Urine 1.035 9:52 PM [facility] Blood Urine Small (A) NEG^Negat 05/02/2017 [place] angela 9:52 PM [facility] pH Urine 6.0 5.0 - 7.0 05/02/2017 [place] pH 9:52 PM [facility] Protein Albumin Negative NEG^Negat 05/02/2017 [place] Urine angela mg/dL 9:52 PM [facility] Urobilinogen 4.0 (H) 0.0 - 2.0 05/02/2017 [place] mg/dL mg/dL 9:52 PM [facility] Nitrite Urine Negative NEG^Negat 05/02/2017 [place] angela 9:52 PM [facility] Leukocyte Negative NEG^Negat 05/02/2017 [place] Esterase Urine angela 9:52 PM [facility] Source Midstream 05/02/2017 [place] Urine 9:29 PM [facility] RBC Urine 1 0 - 2 05/02/2017 [facility] /HPF 9:52 PM [facility] WBC Urine 4 (H) 0 - 2 05/02/2017 [facility] /HPF 9:52 PM [facility] Squamous 1 0 - 1 05/02/2017 [place] Epithelial /HPF /HPF 9:52 PM [facility] Mucous Urine Present (A) NEG^Negat 05/02/2017 [place] /LPF 9:52 PM [facility] Specimen (Source) Anatomical Collection Method Collection Time Re ceived Time Location / / Volume Laterality Examination of URINE SPECIMEN 05/02/2017 9:19 05/02/20 17 9:28 midstream urine OBTAINED BY CLEAN PM [employer] VICE PRESIDENT PM [employer] VICE PRESIDENT specimen CATCH PROCEDURE / (procedure) Unknown Lizzy Lopez MD LAB - URINE ORDERABLES Performing Organization Address City/State/ZIP Code Phon e Number M [place] [id number] [address] [facility] [address] [address] [facility] [phone] Troponin I (05/02/2017 8:31 PM [employer] VICE PRESIDENT) athologist Signature Troponin I ES 0.016 0.000 - 05/02/2017 [place] 0.045 ug/L 9:13 PM [facility] Comment: The 99th percentile for upper reference range is 0.045 ug/L. ??Troponin values in the range of 0.045 - 0.120 ug/L may b e associated with risks of adverse clinical events. Specimen Anatomical Collection Method Collection Time Receive d Time (Source) Location / / Volume Laterality Blood specimen 05/02/2017 8:31 PM 017 8:50 (specimen) [employer] VICE PRESIDENT PM [employer] VICE PRESIDENT Lizzy Lopez MD LAB - BLOOD ORDERABLES Performing Organization Address City/[facility]/[place]IP [facility] [place] [address] [address] [facility] [address] [phone] EKG 12-lead, tracing only (05/02/2017 8:23 PM [employer] VICE PRESIDENT) [facility] gist Method Time Signature Interpretation ECG Click View RADIOLOGY Image link RESULTS to view waveform and result Specimen (Source) Anatomical Collection Method Collection Time Re ceived Time Location / / Volume Laterality 05/02/2017 8:23 PM [employer] VICE PRESIDENT Lizzy Lopez MD ECG ORDERABLES Performing Organization Address City/[facility] Phon e Number RADIOLOGY RESULTS CTA Angiogram Head Neck (05/02/2017 7:24 PM [employer] VICE PRESIDENT) Anatomical Region Laterality Modality Head, SUBRAD CT NEURO, SUBRAD CT NEURO, UMP CT NEURO, Computed Tomography RAD CT Specimen (Source) Anatomical Location Collection Method / Collectio n Time Received Time / Laterality Volume Impressions 05/02/2017 8:49 PM [employer] VICE PRESIDENT IMPRESSION: 1. Tortuous internal carotid arteries. 2. Otherwise normal CT angiogram of the head and neck. 3. Normal perfusion CT scan of the head. 4. Right thyroid nodule. Ultrasound is s uggested for further evaluation. 5. Left mediastinal cyst, incompletely i nick. Chest CT scan with contrast would be helpful for further ev aluation when the patient is stable. There are no previous exams avai lable for comparison. I called the report to Dr. Lizzy Lopez in the emergency room at 7:07 PM. SHANICE HYATT MD Narrative 05/02/2017 8:49 PM [employer] VICE PRESIDENT CT ANGIOGRAM OF THE HEAD AND NECK WITHOUT AND WITH CONTRAST 05/02/2017 7:24 PM HISTORY: Code stroke. Arm numbness and c onfusion. TECHNIQUE: ??Precontrast localizing scan s were followed by CT angiography with an injection of 70mL Is ovue-370 (accession [id number]), 50mL Isovue-370 (accession R [id number]) IV with scans through the head and neck. ??Images were transferred to a separate 3-D workstation where multiplanar reformatio ns and 3-D images were created. ??Estimates of carotid stenoses are made relative to the distal internal carotid artery diameters except as noted. Radiation dose for this scan was reduced using aut omated exposure control, adjustment of the mA and/or kV according to patient size, or iterative reconstruction technique. ??Perfusion sc ans were performed at three levels with injection of an additional 4 0 mL IV nonionic contrast and 20 mL saline flush. ??These images were processed on a separate 3-D workstation. COMPARISON: None. CT HEAD FINDINGS: ??No contrast enhancin g lesions. Perfusion CT scan of the head appears normal. CT ANGIOGRAM HEAD FINDINGS: Arteries are widely patent with no aneurysm, significant stenosis, occlusio n or intraarterial thrombus. Venous circulation is unremarkable. CT ANGIOGRAM NECK FINDINGS: Right carotid artery: Internal carotid i s somewhat tortuous, meeting the left in the midline. No significant stenosis. ?? Left carotid artery: Tortuous left inter nal carotid extending to the midline. No significant stenosis. ?? Vertebral arteries: No significant steno sis. ?? Other findings: There is a 3 cm cyst in the left anterior mediastinum of indeterminate etiology. There is a ri ght posterior thyroid nodule to the right of the esophagus, 1.5 x 1.4 cm diameter. Procedure Note Shanice Hyatt MD - 05/02/2017Formatt ing of this note might be different from the original. CT ANGIOGRAM OF THE HEAD AND NECK WITHOU T AND WITH CONTRAST 05/02/2017 7:24 PM HISTORY: Code stroke. Arm numbness and c onfusion. TECHNIQUE: Precontrast localizing scans were followed by CT angiography with an injection of 70mL Is ovue-370 (accession [id number]), 50mL Isovue-370 (accession R [id number]) IV with scans through the head and neck. Images were t ransferred to a separate 3-D workstation where multiplanar reformatio ns and 3-D images were created. Estimates of carotid stenoses a re made relative to the distal internal carotid artery diameters except as noted. Radiation dose for this scan was reduced using aut omated exposure control, adjustment of the mA and/or kV according to patient size, or iterative reconstruction technique. Perfusion scan s were performed at three levels with injection of an additional 4 0 mL IV nonionic contrast and 20 mL saline flush. These images were pr ocessed on a separate 3-D workstation. COMPARISON: None. CT HEAD FINDINGS: No contrast enhancing lesions. Perfusion CT scan of the head appears normal. CT ANGIOGRAM HEAD FINDINGS: Arteries are widely patent with no aneurysm, significant stenosis, occlusio n or intraarterial thrombus. Venous circulation is unremarkable. CT ANGIOGRAM NECK FINDINGS: Right carotid artery: Internal carotid i s somewhat tortuous, meeting the left in the midline. No significant stenosis. Left carotid artery: Tortuous left inter nal carotid extending to the midline. No significant stenosis. Vertebral arteries: No significant steno sis. Other findings: There is a 3 cm cyst in the left anterior mediastinum of indeterminate etiology. There is a ri ght posterior thyroid nodule to the right of the esophagus, 1.5 x 1.4 cm diameter. IMPRESSION: 1. Tortuous internal carotid arteries. 2. Otherwise normal CT angiogram of the head and neck. 3. Normal perfusion CT scan of the head. 4. Right thyroid nodule. Ultrasound is s uggested for further evaluation. 5. Left mediastinal cyst, incompletely i nick. Chest CT scan with contrast would be helpful for further ev aluation when the patient is stable. There are no previous exams avai lable for comparison. I called the report to Dr. Lizzy Lopez in the emergency room at 7:07 PM. SHANICE HYATT MD Lizzy Lopez MD IMG CT ORDERABLES CT Head w Contrast (05/02/2017 7:19 PM [employer] VICE PRESIDENT) Anatomical Region Laterality Modality Head, NEURO, SUBRAD CT NEURO, SUBRAD CT NEURO, UMP CT Computed Tomography NEURO, RAD CT Specimen (Source) Anatomical Location Collection Method / Collectio n Time Received Time / Laterality Volume Impressions 05/02/2017 8:49 PM [employer] VICE PRESIDENT IMPRESSION: 1. Tortuous internal carotid arteries. 2. Otherwise normal CT angiogram of the head and neck. 3. Normal perfusion CT scan of the head. 4. Right thyroid nodule. Ultrasound is s uggested for further evaluation. 5. Left mediastinal cyst, incompletely i nick. Chest CT scan with contrast would be helpful for further ev aluation when the patient is stable. There are no previous exams avai lable for comparison. I called the report to Dr. Lizzy Lopez in the emergency room at 7:07 PM. SHANICE HYATT MD Narrative 05/02/2017 8:49 PM [employer] VICE PRESIDENT CT ANGIOGRAM OF THE HEAD AND NECK WITHOUT AND WITH CONTRAST 05/02/2017 7:24 PM HISTORY: Code stroke. Arm numbness and c onfusion. TECHNIQUE: ??Precontrast localizing scan s were followed by CT angiography with an injection of 70mL Is ovue-370 (accession [id number]), 50mL Isovue-370 (accession R [id number]) IV with scans through the head and neck. ??Images were transferred to a separate 3-D workstation where multiplanar reformatio ns and 3-D images were created. ??Estimates of carotid stenoses are made relative to the distal internal carotid artery diameters except as noted. Radiation dose for this scan was reduced using aut omated exposure control, adjustment of the mA and/or kV according to patient size, or iterative reconstruction technique. ??Perfusion sc ans were performed at three levels with injection of an additional 4 0 mL IV nonionic contrast and 20 mL saline flush. ??These images were processed on a separate 3-D workstation. COMPARISON: None. CT HEAD FINDINGS: ??No contrast enhancin g lesions. Perfusion CT scan of the head appears normal. CT ANGIOGRAM HEAD FINDINGS: Arteries are widely patent with no aneurysm, significant stenosis, occlusio n or intraarterial thrombus. Venous circulation is unremarkable. CT ANGIOGRAM NECK FINDINGS: Right carotid artery: Internal carotid i s somewhat tortuous, meeting the left in the midline. No significant stenosis. ?? Left carotid artery: Tortuous left inter nal carotid extending to the midline. No significant stenosis. ?? Vertebral arteries: No significant steno sis. ?? Other findings: There is a 3 cm cyst in the left anterior mediastinum of indeterminate etiology. There is a ri ght posterior thyroid nodule to the right of the esophagus, 1.5 x 1.4 cm diameter. Procedure Note Shanice Hyatt MD - 05/02/2017Formatt ing of this note might be different from the original. CT ANGIOGRAM OF THE HEAD AND NECK WITHOU T AND WITH CONTRAST 05/02/2017 7:24 PM HISTORY: Code stroke. Arm numbness and c onfusion. TECHNIQUE: Precontrast localizing scans were followed by CT angiography with an injection of 70mL Is ovue-370 (accession [id number]), 50mL Isovue-370 (accession R [id number]) IV with scans through the head and neck. Images were t ransferred to a separate 3-D workstation where multiplanar reformatio ns and 3-D images were created. Estimates of carotid stenoses a re made relative to the distal internal carotid artery diameters except as noted. Radiation dose for this scan was reduced using aut omated exposure control, adjustment of the mA and/or kV according to patient size, or iterative reconstruction technique. Perfusion scan s were performed at three levels with injection of an additional 4 0 mL IV nonionic contrast and 20 mL saline flush. These images were pr ocessed on a separate 3-D workstation. COMPARISON: None. CT HEAD FINDINGS: No contrast enhancing lesions. Perfusion CT scan of the head appears normal. CT ANGIOGRAM HEAD FINDINGS: Arteries are widely patent with no aneurysm, significant stenosis, occlusio n or intraarterial thrombus. Venous circulation is unremarkable. CT ANGIOGRAM NECK FINDINGS: Right carotid artery: Internal carotid i s somewhat tortuous, meeting the left in the midline. No significant stenosis. Left carotid artery: Tortuous left inter nal carotid extending to the midline. No significant stenosis. Vertebral arteries: No significant steno sis. Other findings: There is a 3 cm cyst in the left anterior mediastinum of indeterminate etiology. There is a ri ght posterior thyroid nodule to the right of the esophagus, 1.5 x 1.4 cm diameter. IMPRESSION: 1. Tortuous internal carotid arteries. 2. Otherwise normal CT angiogram of the head and neck. 3. Normal perfusion CT scan of the head. 4. Right thyroid nodule. Ultrasound is s uggested for further evaluation. 5. Left mediastinal cyst, incompletely i nick. Chest CT scan with contrast would be helpful for further ev aluation when the patient is stable. There are no previous exams av lable for comparison. I called the report to Dr. Lizzy Lopez in the emergency room at 7:07 PM. SHANICE HYATT MD Lizzy Lopez MD IMG CT ORDERABLES XR Chest 2 Views (05/02/2017 7:11 PM [employer] VICE PRESIDENT) Anatomical Region Laterality Modality Chest Digital Radiography Specimen (Source) Anatomical Location Collection Method / Collectio n Time Received Time / Laterality Volume Impressions 05/02/2017 11:02 PM [employer] VICE PRESIDENT IMPRESSION: The lungs appear clear. Mediastinal prominence may be related to the AP positioning. Upper lob e vascular congestion is suspected. However, ??there is no eviden ce of pleural effusion. EVELIN CHAMORRO MD Narrative 05/02/2017 11:02 PM [employer] VICE PRESIDENT CHEST TWO VIEWS 05/02/2017 7:11 PM HISTORY: Weakness. Procedure Note Stephanie Chamorro MD - 05/02/2017Formatt ing of this note might be different from the original. CHEST TWO VIEWS 05/02/2017 7:11 PM HISTORY: Weakness. IMPRESSION: The lungs appear clear. Medi astinal prominence may be related to the AP positioning. Upper lob e vascular congestion is suspected. However, there is no evidence of pleural effusion. EVELIN CHAMORRO MD Lizzy Lopez MD IMG DIAGNOSTIC IMAGING ORDER ANGELA CT Head w/o Contrast (05/02/2017 6:51 PM [employer] VICE PRESIDENT) Anatomical Region Laterality Modality Head, SUBRAD CT NEURO, SUBRAD CT NEURO, UMP CT NEURO, Computed Tomography RAD CT Specimen (Source) Anatomical Location Collection Method / Collectio n Time Received Time / Laterality Volume Impressions 05/02/2017 6:59 PM [employer] VICE PRESIDENT IMPRESSION: 1. No acute abnormality. 2. Atrophy of the brain. White matter ch anges consistent with sequelae of small vessel ischemic disease. 3. 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 SHANICE HYATT MD Narrative 05/02/2017 6:59 PM [employer] CH[employer] VICE PRESIDENT CT SCAN OF THE HEAD WITHOUT CONTRAST ??05/02/2017 ??6:51 PM HISTORY: Code stroke. Hand numbness and confusion. TECHNIQUE: Axial images of the head and coronal reformations without IV contrast material. Radiation dose for this scan was reduced using automated exposure control, adjustment o f the mA and/or kV according to patient size, or iterative reconstruc tion technique. COMPARISON: None. FINDINGS: There is generalized atrophy o f the brain. There is low attenuation in the white matter of the c erebral hemispheres consistent with sequelae of small vessel ischemic d isease. 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 There is n o evidence of intracranial hemorrhage, mass, acute infarct or anoma ly. The visualized portions of the sinuses a nd mastoids appear normal. There is no evidence of trauma. Procedure Note Shanice Hyatt MD - 05/02/2017Formatt ing of this note might be different from the original. CT SCAN OF THE HEAD WITHOUT CONTRAST 6:51 PM HISTORY: Code stroke. Hand numbness and confusion. TECHNIQUE: Axial images of the head and coronal reformations without IV contrast material. Radiation dose for this scan was reduced using automated exposure control, adjustment o f the mA and/or kV according to patient size, or iterative reconstruc tion technique. COMPARISON: None. FINDINGS: There is generalized atrophy o f the brain. There is low attenuation in the white matter of the c erebral hemispheres consistent with sequelae of small vessel ischemic d isease. 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 There is n o evidence of intracranial hemorrhage, mass, acute infarct or anoma ly. The visualized portions of the sinuses a nd mastoids appear normal. There is no evidence of trauma. IMPRESSION: 1. No acute abnormality. 2. Atrophy of the brain. White matter ch anges consistent with sequelae of small vessel ischemic disease. 3. 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 SHANICE HYATT MD Lizzy Lopez MD IM CT ORDERABLES (ABNORMAL) Creatinine POCT (05/02/2017 6:36 PM [employer] VICE PRESIDENT) P athologist Signature Creatinine 0.9 0.52 - 05/02/2017 [facility] 1.04 mg/dL 6:41 PM [employer] VICE PRESIDENT TEST, HANDHELD METER GFR Estimate 60 (L) >60 05/02/2017 [facility]ARE mL/min/1.7 6:41 PM [employer] VICE PRESIDENT TEST, HANDHELD m2 METER GFR Estimate If 73 >60 05/02/2017 PO[facility] CARE Black mL/min/1.7 6:41 PM [employer] VICE PRESIDENT TEST, HANDHELD m2 METER Specimen Anatomical Collection Method Collection Time Receive d Time (Source) Location / / Volume Laterality 05/02/2017 6:36 PM 7 6:41 [employer] VICE PRESIDENT PM [employer] CHAIN VICE PRESIDENT Lizzy Lopez MD LAB - BEAKER POCT Performing Organization Address City/State/ZIP Code Phon e Number [place] POINT OF CARE TEST, HANDHELD METER POINT OF CARE TEST, HANDHELD METER EKG 12 lead (05/02/2017 6:34 PM [employer] CHAIN VICE PRESIDENT) [facility] gist Method Time Signature Interpretation ECG Click View RADIOLOGY Image link RESULTS to view waveform and result Specimen (Source) Anatomical Collection Method Collection Time Re ceived Time Location / / Volume Laterality 05/02/2017 6:34 PM [employer] VICE PRESIDENT Lizzy Lopez MD ECG ORDERABLES Performing Organization Address City/[facility]/ZIP Code Phon e Number RADIOLOGY RESULTS Troponin I (05/02/2017 6:33 PM [employer] CH[employer] VICE PRESIDENT) athologist Signature Troponin I ES 0.016 0.000 - 05/02/2017 [place] 0.045 ug/L 7:04 PM [facility] Comment: The 99th percentile for upper reference range is 0.045 ug/L. ??Troponin values in the range of 0.045 - 0.120 ug/L may b e associated with risks of adverse clinical events. Specimen Anatomical Collection Method Collection Time Receive d Time (Source) Location / / Volume Laterality 05/02/2017 6:33 PM 7 6:40 [employer] CH[employer] VICE PRESIDENT PM [employer] CHAIN VICE PRESIDENT Lizzy Lopez MD LAB - BLOOD ORDERABLES Performing Organization Address City/[facility]/ZIP [facility] [place] [facility] [address], [place] [address] [facility] [address] [address] [facility] [phone] Partial thromboplastin time (05/02/2017 6:33 PM [employer] CHAIN VICE PRESIDENT) athologist Signature PTT 27 22 - 37 sec 05/02/2017 [facility] 6:55 PM [facility] Specimen Anatomical Collection Method Collection Time Receive d Time (Source) Location / / Volume Laterality 05/02/2017 6:33 PM 7 6:40 [employer] CH[employer] VICE PRESIDENT PM [employer] CHAIN VICE PRESIDENT Lizzy Lopez MD LAB - BLOOD ORDERABLES Performing Organization Address City/State/ZIP Code Phon e Number M [facility] [address], [place] [address] [place] [address] [address] [place], [place] [address], [facility] [phone] INR (05/02/2017 6:33 PM [employer] CHAIN VICE PRESIDENT) P athologist Signature INR 0.99 0.86 - 1.14 05/02/2017 [facility] 6:55 PM [employer] CHAIN VICE PRESIDENT HOSPITAL Specimen Anatomical Collection Method Collection Time Receive d Time (Source) Location / / Volume Laterality 05/02/2017 6:33 PM 7 6:40 [employer] CH[employer] VICE PRESIDENT PM [employer] CHAIN VICE PRESIDENT Lizzy Lopez MD LAB - BLOOD ORDERABLES Performing Organization Address [facility] Phon e Number M [facility] [address], [place] [address] [place] [address] [address] [place], [place] [address], [facility] [phone] (ABNORMAL) CBC with platelets differential (05/02/2017 6:33 PM [employer] VICE PRESIDENT) [facility] gist Method Time Signature WBC 8.5 4.0 - 05/02/2017 [facility] 11.0 6:45 PM [facility] 10e9/L [facility] RBC Count 4.38 3.8 - 5.2 05/02/2017 [facility] 10e12/L 6:45 PM [facility] Hemoglobin 13.3 11.7 - 05/02/2017 [facility] 15.7 g/dL 6:45 PM [facility] Hematocrit 40.0 35.0 - 05/02/2017 [facility] 47.0 % 6:45 PM [facility] MCV 91 78 - 100 05/02/2017 [facility] fl 6:45 PM [facility] MCH 30.4 26.5 - 05/02/2017 [facility] 33.0 pg 6:45 PM [facility] MCHC 33.3 31.5 - 05/02/2017 [facility] 36.5 g/dL 6:45 PM [facility] RDW 13.7 10.0 - 05/02/2017 [facility] 15.0 % 6:45 PM [facility] Platelet Count 143 (L) 150 - 450 05/02/2017 [facility] 10e9/L 6:45 PM [facility] Diff Method Automated 05/02/2017 [facility] Method 6:45 PM [facility] % Neutrophils 48.0 % 05/02/2017 [facility] 6:45 PM [facility] % Lymphocytes 41.0 % 05/02/2017 [facility] 6:45 PM [facility] % Monocytes 8.5 % 05/02/2017 [facility] 6:45 PM [facility] % Eosinophils 2.0 % 05/02/2017 [facility] 6:45 PM [facility] % Basophils 0.4 % 05/02/2017 [facility] 6:45 PM [facility] % Immature 0.1 % 05/02/2017 [facility] Granulocytes 6:45 PM [facility] Nucleated RBCs 0 0 /100 05/02/2017 [facility] 6:45 PM [facility] Absolute 4.1 1.6 - 8.3 05/02/2017 [facility] Neutrophil 10e9/L 6:45 PM [facility] Absolute 3.5 0.8 - 5.3 05/02/2017 [facility] Lymphocytes 10e9/L 6:45 PM [facility] Absolute 0.7 0.0 - 1.3 05/02/2017 [facility] Monocytes 10e9/L 6:45 PM [facility] Absolute 0.2 0.0 - 0.7 05/02/2017 [facility] Eosinophils 10e9/L 6:45 PM [facility] Absolute 0.0 0.0 - 0.2 05/02/2017 [facility] Basophils 10e9/L 6:45 PM [facility] Abs Immature 0.0 0 - 0.4 05/02/2017 [facility] Granulocytes 10e9/L 6:45 PM [facility] Absolute 0.0 05/02/2017 [facility] Nucleated RBC 6:45 PM [facility] Specimen Anatomical Collection Method Collection Time Receive d Time (Source) Location / / Volume Laterality 05/02/2017 6:33 PM 7 6:40 [employer] VICE PRESIDENT PM [employer] VICE PRESIDENT Lizzy Lopez MD LAB - BLOOD ORDERABLES Performing Organization Address City/State/ZIP Code Phon e Number M [facility] [address], [place] [address] [facility] [address] [place], [place] [address] [facility] [phone] (ABNORMAL) Basic metabolic panel (05/02/2017 6:33 PM [employer]Y CHAIN VICE PRESIDENT) athologist Signature Sodium 139 133 - 144 05/02/2017 [place] mmol/L 7:04 PM [facility] Potassium 3.2 (L) 3.4 - 5.3 05/02/2017 [place] mmol/L 7:04 PM [facility] Chloride 103 94 - 109 05/02/2017 [place] mmol/L 7:04 PM [facility] Carbon Dioxide 29 20 - 32 05/02/2017 [place] mmol/L 7:04 PM [facility] Anion Gap 7 3 - 14 05/02/2017 [place] mmol/L 7:04 PM [facility] Glucose 92 70 - 99 05/02/2017 [place] mg/dL 7:04 PM [facility] Urea Nitrogen 18 7 - 30 05/02/2017 [place] mg/dL 7:04 PM [facility] Creatinine 0.84 0.52 - 05/02/2017 [place] 1.04 mg/dL 7:04 PM [facility] GFR Estimate 66 >60 05/02/2017 [place] mL/min/1.7 7:[address] Comment: Non GFR Calc GFR Estimate If 80 >60 mL/min/1.7m2 05/02/2017 7:04 P [facility] Comment: GFR Calc Calcium 8.1 (L) 8.5 - 10.1 mg/dL 05/02/2017 7:04 PM [facility] Specimen Anatomical Collection Method Collection Time Receive d Time (Source) Location / / Volume Laterality 05/02/2017 6:33 PM 7 6:40 [employer] VICE PRESIDENT PM [employer] CH[employer] VICE PRESIDENT Lizzy Lopez MD LAB - BLOOD ORDERABLES Performing Organization Address City/State/ZIP Code Phon susy Fink [facility] [address], [place] [address] [facility] [address] [place] [id number] [facility] [phone] Glucose by meter (05/02/2017 6:32 PM [employer] VICE PRESIDENT) P athologist Signature Glucose 85 70 - 99 05/02/2017 [facility] mg/dL 6:41 PM [employer] VICE PRESIDENT TEST, GLUCOSE Specimen Anatomical Collection Method Collection Time Receive d Time (Source) Location / / Volume Laterality 05/02/2017 6:32 PM 7 6:41 [employer] VICE PRESIDENT PM [employer] CHAIN VICE PRESIDENT Lizzy Lopez MD LAB - BEAKER POCT Performing Organization Address City/State/ZIP Code Phon e Number [facility] POINT OF CARE TEST, GLUCOSE POINT OF CARE TEST, GLUCOSE documented in this encounter Visit Diagnoses Diagnosis 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, unspecified vessel or lesion type (H) - Primary Arm heaviness Other musculoskeletal symptoms referable to limbs Generalized muscle weakness Muscle weakness (generalized) Numbness and tingling in both hands documented in this encounter Administered Medications Inactive Administered Medications - up to 3 most recent administrations Medication Order MAR Action Action Date Dose Rate Site 0.9% sodium chloride BOLUS New Bag 05/02/2017 7:09 PM [employer] VICE PRESIDENT 1,000 mLs 500 mL/hr Intravenous, 500 mL, ONCE, at 500 mL/hr, Administer over 1 Hours, On Jessica 05/02/17 at 1837, For 1 dose 0.9% sodium chloride BOLUS New 05/02/2017 7:09 PM [employer] VICE PRESIDENT 80 mLs Intravenous, 1,000 mL, ONCE, On Jessica 05/02/17 at 1848, For 1 dose 0.9% sodium chloride infusion New 05/03/2017 8:28 AM [employer] CHAIN VICE PRESIDENT 1,000 mLs 125 mL/hr at 125 mL/hr, Intravenous, CONTINUOUS, Administer after the bolus., Starting on Jessica 05/02/17 at 1837, Until Sat05/03/17 at 0847 New 05/03/2017 12:31 AM [employer] VICE PRESIDENT 1,000 mLs 125 mL/hr acetaminophen (TYLENOL) tablet 650 mg Given 05/04/2017 8:07 AM [employer] CH[employer] VICE PRESIDENT 650 mg 650 mg, Oral, EVERY 4 HOURS PRN, mild pain, Starting on Jessica 05/02/17 at 2228, Alternate ibuprofen (if ordered) with acetaminophen. Maximum acetaminophen dose from all sources = 75 mg/kg/day not to exceed 4 grams/day. amLODIPine (NORVASC) tablet 2.5 mg Given 05/04/2017 8:07 AM [employer] VICE PRESIDENT 2.5 mg 2.5 mg, Oral, DAILY, First dose on Sat05/04/17 at 0800, Hold for SBP < 110 cholecalciferol (vitamin D3) tablet Given 05/04/2017 8:09 AM [employer] CH[employer] VICE PRESIDENT 1,000 Units 1,000 Units 1,000 Units, Oral, DAILY, First dose on Sat05/03/17 at 0800 Given 05/03/2017 9:16 AM [employer] CH[employer] VICE PRESIDENT 1,000 Units donepezil (ARICEPT) tablet 10 mg Given 05/04/2017 8:08 AM [employer] CH[employer] VICE PRESIDENT 10 mg 10 mg, Oral, DAILY, First dose on Sat05/03/17 at 0800 Given 05/03/2017 9:11 AM [employer]Y CHAIN VICE PRESIDENT 10 mg iopamidol (ISOVUE-370) solution 500 mL Given 05/02/2017 7:23 PM [employer]Y CHAIN VICE PRESIDENT 120 mLs 500 mL, Intravenous, ONCE, On Jessica 05/02/17 at 1848, For 1 dose labetalol (NORMODYNE) half-tab 50 mg Given 05/04/2017 8:08 AM [employer]Y CHAIN VICE PRESIDENT 50 mg 50 mg, Oral, DAILY, First dose on Sat05/03/17 at 0800, Hold if sbp <105 or hr <60 Given 05/03/2017 9:16 AM [employer] VICE PRESIDENT 50 mg nitroGLYcerin (NITROSTAT) sublingual tablet Given 05/02/2017 8:57 PM [employer] CHAIN VICE PRESIDENT 0.4 mg 0.4 mg 0.4 mg, Sublingual, EVERY 5 MIN PRN, chest pain, Starting on Jessica 05/02/17 at 2011, For 3 doses ondansetron (ZOFRAN) injection 4 mg 4 mg, Intravenous, EVERY 6 HOURS PRN, nausea, vomiting , Administer over 2-5 Minutes, Starting on Jessica 05/02/17 at 222 8, This is Step 1 of nausea and vomiting management. If nausea not resolved in 15 minutes, go t o Step 2 prochlorperazine (COMPAZINE). Irritant. For ordered doses up to 4 mg, give IV Push undiluted over 2-5 minutes. ondansetron (ZOFRAN-ODT) ODT tab 4 mg 4 mg, Oral, EVERY 6 HOURS PRN, nausea, v omiting, Starting on Jessica 05/02/17 at 2228, This is Step 1 of nausea and vomiting management. If n ausea not resolved in 15 minutes, go to Step 2 prochlorperazine (COMPAZINE). Do not push through foil backing. Peel back foil and gently remove. Place on to ngue immediately. Administration with liquid unnecessary potassium chloride (KLOR-CON) Packet 20- 40 mEq 20-40 mEq, Oral or Feeding Tube, EVERY 2 HOURS PRN, po tassium supplementation, Starting on 05/03/17 at 0848, Use if unable to tolerate tablets. If Serum K+ 3.0-3.3, dose = 60 mEq po total dose (40 mEq x1 followed in 2 hours by 20 mEq x1). Recheck K+ level 4 hours after dose and the next AM. If Serum K+ 2.5-2.9, dose = 80 mEq po total dose (40 mEq Q2H x2). Reche ck K+ level 4 hours after dose and the next AM. If Serum K+ less than 2.5, See IV or mary anne. Dissolve packet contents in 4-8 ounces of cold water or juice. potassium chloride 10 mEq in 100 mL inte rmittent infusion with 10 mg lidocaine 10 mEq, Intravenous, Administer over 1 Hours, EVERY 1 HOUR PRN, potassium supplementation, Starting on Sat 7 at 0848, Infuse via PERIPHERAL LINE. Use potassium with lidocaine for pain with peripheral admi nistration. If Serum K+ 3.0-3.3, dose = 10 mEq/hr x4 doses (40 m Eq IV total dose). Recheck K+ level 2 hours after dose and the next AM. If Serum K+ less than 3.0, dose = 10 mEq/hr x6 doses (60 mEq IV total dose). Recheck K+ level 2 hours after dose and the next AM. potassium chloride 10 mEq in 100 mL ster ile water intermittent infusion (premix) 10 mEq, Intravenous, Administer over 60 Minutes, at 100 mL/hr, EVERY 1 HOUR PRN, potassium supplementation, Starting on F ar 05/03/17 at 0848, Infuse via PERIPHERAL LINE or CENTRAL LINE. Use for central li ne replacement if patient weight less than 65 kg, if patient is on TPN with high po tassium content or if unit does not stock 20 mEq bags. If Serum K+ 3.0-3.3, dose = 10 mEq/hr x4 doses (40 mEq IV total dose). Recheck K+ level 2 hours after dose and the next AM. I f Serum K+ less than 3.0, dose = 10 mEq/hr x6 doses (60 mEq IV tot al dose). Recheck K+ level 2 hours after dose and the next AM. potassium chloride 20 mEq in 50 mL inter mittent infusion 20 mEq, Intravenous, EVERY 1 HOUR PRN, p otassium supplementation, Starting on Sat05/03/17 at 0848, Infuse via CENTRAL STEPHANIE E Only. May need EKG if less than 65 kg or on TPN - Max rate is 0.3 mEq/kg/hr for p atients not on EKG monitoring. If Serum K+ 3.0-3.3, dose = 20 mEq/hr x2 doses (40 m Eq IV total dose). Recheck K+ level 2 hours after dose and the next AM. If Serum K+ less than 3.0, dose = 20 mEq/hr x3 doses (60 mEq IV total dose). Recheck K+ level 2 hours after dose and the next AM. potassium chloride SA (K-DUR/KLOR-CON M) CR Given 05/03/2017 3:01 PM [employer] CHAIN VICE PRESIDENT 20 mEq tablet 20-40 mEq 20-40 mEq, Oral, EVERY 2 HOURS PRN, potassium supplementation, Starting on Sat05/03/17 at 0848, Use if able to take PO. If Serum K+ 3.0-3.3, dose = 60 mEq po total dose (40 mEq x1 followed in 2 hours by 20 mEq x1). Recheck K+ level 4 hours after dose and the next AM. If Serum K+ 2.5-2.9, dose = 80 mEq po total dose (40 mEq Q2H x2). Recheck K+ level 4 hours after dose and the next AM. If Serum K+ less than 2.5, See IV order. DO NOT CRUSH Given 05/03/2017 11:42 AM [employer]Y CHAIN VICE PRESIDENT 40 mEq valsartan (DIOVAN) tablet 40 mg 40 mg, Oral, DAILY, First dose on Sat05/04/17 at 0800 , Hold if sbp <120 documented in this encounter Active and Recently Administered Medications Times are shown in GLOBAL [employer]Y CHAIN VICE PRESIDENT. Scheduled Medication Order 05/02/2017 05/03/2017 05/04/2017 0.9% sodium chloride BOLUS (COMPLETED) 1908 (New Bag - Provider: Farrah Riley)2129 (Stopped - Provider: Beth Weber, MICHI) 0828 (Stopped - Provider: Sushila Jones RN) Intravenous, 500 mL, ONCE, at 500 mL/hr, Administer over 1 Hours, Jessica 05/02/17 at 1837, For 1 dose 0.9% sodium chloride BOLUS (COMPLETED) 1908 (New Bag - Provider: Farrah Riley)1909 (Stopped - Provider: Farrah Riley) Intravenous, 1,000 mL, ONCE, Jessica 05/02/17 at 1848, For 1 dose amLODIPine (NORVASC) tablet 2.5 mg 0807 (Given - Provider: Lety Moya, MICHI) 2.5 mg, Oral, DAILY, First dose on Sat05/04/17 at 0800, Hold fo r SBP < 110 cholecalciferol (vitamin D3) tablet 1,000 Units 0916 (Given - Provider: Stephanie Hollis RN) 0809 (Given - Provider: Lety hawkins, MICHI) 1,000 Units, Oral, DAILY, First dose on Sat05/03/17 at 0800 donepezil (ARICEPT) tablet 10 mg 0911 (Given - P rovider: Stephanie Hollis RN) 0808 (Given - Provider: Lety Moya, MICHI) 10 mg, Oral, DAILY, First dose on Sat05/03/17 at 0800 iopamidol (ISOVUE-370) solution 500 mL (COMPLETED) 192 3 (Given - Provider: Farrah Riley) 500 mL, Intravenous, ONCE, Jessica 05/02/17 at 1848, For 1 dose labetalol (NORMODYNE) half-tab 50 mg 091 6 (Given - Provider: Stephanie Hollis RN) 0808 (Given - Provider: Lety hawkins, MICHI) 50 mg, Oral, DAILY, First dose on Sat at 0800, Hold if sbp <105 or hr <60 labetalol (NORMODYNE) tablet 100 mg 2336 (Not Given - Provider: Quyen Sierra RN - Reason: Order parameters not met) 2045 (Not Given - Provider: Jamila Coyle RN - Reason: Order parameters not met) 100 mg, Oral, AT BEDTIME, First dose on Jessica 05/02/17 at 2237, Hold if sbp <110 or hr <60 valsartan (DIOVAN) tablet 40 mg 0808 (Not Given - Provider: Lety Moya RN - Reason: Contraindicated) 40 mg, Oral, DAILY, First dose on 05/04/17 at 0800, Hold if sbp <120 Continuous Medication Order 05/02/2017 05/03/2017 05/04/2017 0.9% sodium chloride infusion (CANCELED) 0031 (New Bag - Provider: Quyen Sierra RN)0828 (New Bag - Provider: Sushila Jones RN)0910 (Stopped - Provider: Stephanie Hollis RN) at 125 mL/hr, Intravenous, CONTINUOUS, A dminister after the bolus., Starting Jessica 05/02/17 at 1837, Until Sat05/03/17 at 0847 PRN Medication Order 05/02/2017 05/03/2017 05/04/2017 acetaminophen (TYLENOL) Suppository 650 mg 650 mg, Rectal, EVERY 4 HOURS PRN, mild pain, Starting Jessica 05/02/17 at 2228, Alternate ibuprofen (if ordered) with acetaminophen. Maximum acetaminophen dose from all sources = 75 mg/kg/day not to exceed 4 grams/day. acetaminophen (TYLENOL) tablet 650 mg 0807 (Given - Provider: Lety Moya RN) 650 mg, Oral, EVERY 4 HOURS PRN, mild pa in, Starting Jessica 05/02/17 at 2228, Alternate ibuprofen (if ordered) with acetaminophen. Maximum acetaminophen dose from all sources = 75 mg/kg/day not to exceed 4 grams/day. naloxone (NARCAN) injection 0.1-0.4 mg 0.1-0.4 mg, Intravenous, EVERY 2 MIN PRN , opioid reversal, Starting Jessica 05/02/17 at 2228, For respiratory rate LESS than or EQUAL to 8. Partial reversal dose: 0.1 mg titrated q 2 minutes for Analgesia S ricky Effects Monitoring Sedation Level of 3 (frequently drowsy, arousable, drifts to sleep during conversation).Full reversal dose: 0.4 mg bolus for Analgesia Side Effects Monitoring Sedation Level of 4 (somnolent, minimal or no response to st imulation). For ordered doses up to 2mg give IVP. Give each 0.4mg over 15 seconds in emergency situations. For non- emergent situations further dilute in 9mL of NS to facilitate titration of response. nitroGLYcerin (NITROSTAT) sublingual tablet 0.4 mg 205 7 (Given - Provider: Beth Weber RN - Comment: left arm discomfort. no CP) 0.4 mg, Sublingual, EVERY 5 MIN PRN, jana st pain, Starting Jessica 05/02/17 at 2011, For 3 doses ondansetron (ZOFRAN) injection 4 mg(Linked Group 1) 4 mg, Intravenous, EVERY 6 HOURS PRN, na usea, vomiting, Administer over 2-5 Minutes, Starting [facility] 05/02/17 at 2228, This is Step 1 of nausea and vomiting management. If nausea not resolved in 15 minutes , go to Step 2 prochlorperazine (COMPAZI NE). Irritant. For ordered doses up to 4 mg, give IV Push undiluted over 2-5 minutes. ondansetron (ZOFRAN-ODT) ODT tab 4 mg(Linked Group 1) 4 mg, Oral, EVERY 6 HOURS PRN, nausea, v omiting, Starting Jessica 05/02/17 at 2228, This is Step 1 of nausea and vomiting management. If nausea not resolved in 15 minutes, go to Step 2 prochlorperazine (COM PAZINE). Do not push through foil backin g. Peel back foil and gently remove. Place on tongue immediately. Administration with liquid unnecessary potassium chloride (KLOR-CON) Packet 20-40 mEq 20-40 mEq, Oral or Feeding Tube, EVERY 2 HOURS PRN, Starting Sat05/03/17 at 0848, potassium supplementation, Use if unable to tolerate tablets. If Serum K+ 3.0-3.3, dose = 60 mEq po total dose (40 mEq x1 followed in 2 hours by 20 mEq x1). Re check K+ level 4 hours after dose and the next AM. If Serum K+ 2.5-2.9, dose = 80 mEq po total dose (40 mEq Q2H x2). Recheck K+ level 4 hours after dose and the n ext AM. If Serum K+ less than 2.5, See I V order. Dissolve packet contents in 4-8 ounces of cold water or juice. potassium chloride 10 mEq in 100 mL intermittent infusion wi th 10 mg lidocaine 10 mEq, Intravenous, Administer over 1 H ours, EVERY 1 HOUR PRN, Starting Sat05/03/17 at 0848, potassium supplementation, Infuse via PERIPHERAL LINE. Use potassium with lidocaine for pain with periphera l administration. If Serum K+ 3.0-3.3, d ose = 10 mEq/hr x4 doses (40 mEq IV total dose). Recheck K+ level 2 hours after dose and the next AM. If Serum K+ less than 3.0, dose = 10 mEq/hr x6 doses (60 mEq IV total dose). Recheck K+ level 2 hours after dose and the nex t AM. potassium chloride 10 mEq in 100 mL ster ile water intermittent infusion (premix) 10 mEq, Intravenous, Administer over 60 Minutes, EVERY 1 HOUR PRN, Starting Sat05/03/17 at 0848, potassium supplementation, Infuse via PERIPHERAL LINE or CENTRAL LINE. Use for central line replacement if patient weight less than 65 kg, if pa tient is on TPN with high potassium content or if unit does not stock 20 mEq bags. If Serum K+ 3.0-3.3, dose = 10 mEq/hr x4 doses (40 mEq IV total dose). Recheck K+ level 2 hours after dose and the next AM. If Serum K+ less than 3.0, dose = 10 mEq/hr x6 doses (60 mEq IV total dose). Recheck K+ level 2 hours after dose and the next AM. potassium chloride 20 mEq in 50 mL intermittent infusion 20 mEq, Intravenous, EVERY 1 HOUR PRN, S tarting Sat05/03/17 at 0848, potassium supplementation, Infuse via CENTRAL LINE Only. May need EKG if less than 65 kg or on TPN - Max rate is 0.3 mEq/kg/hr for p atients not on EKG monitoring. If Serum K+ 3.0-3.3, dose = 20 mEq/hr x2 doses (40 mEq IV total dose). Recheck K+ level 2 hours after dose and the next AM. If Serum K+ less than 3.0, dose = 20 mEq/hr x3 doses (60 mEq IV total dose). Recheck K+ level 2 hours after dose and the next AM. potassium chloride SA (K-DUR/KLOR-CON M) CR tablet 20-40 mEq 1142 (Given - Provider: Stephanie Hollis, RN)1501 (Given - Provider: Stephanie Hollis RN) 20-40 mEq, Oral, EVERY 2 HOURS PRN, Star ting 05/03/17 at 0848, potassium supplementation, Use if able to take PO. If Serum K+ 3.0-3.3, dose = 60 mEq po total dose (40 mEq x1 followed in 2 hours by 2 0 mEq x1). Recheck K+ level 4 hours afte r dose and the next AM. If Serum K+ 2.5- 2.9, dose = 80 mEq po total dose (40 mEq Q2H x2). Recheck K+ level 4 hours after dose and the next AM. If Serum K+ less than 2.5, See IV order. DO NOT CRUSH Linked Groups Order Group 1: ondansetron (ZOFRAN-ODT) ODT tab 4 mgJump to med 4 mg, Oral, EVERY 6 HOURS PRN, nausea, v omiting, Starting Jessica 05/02/17 at 2228
This is Step 1 of nausea and vomiting management. If nausea not resolved in 15 minutes, go to S tep 2 prochlorperazine (COMPAZINE). Do n ot push through foil backing. Peel back foil and gently remove. Place on tongue immediately. Administration with liquid unnecessary
Or ondansetron (ZOFRAN) injection 4 mgJump to med 4 mg, Intravenous, EVERY 6 HOURS PRN, na usea, vomiting, Administer over 2-5 Minutes, Starting Jessica 05/02/17 at 2228
This is Step 1 of nausea and vomiting management. If nausea not resolved in 15 minutes, go to Step 2 prochlorperazine (COMPAZINE). Irritant. For ordered doses up to 4 mg, give IV Push undiluted over 2-5 minutes.
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
--- OUTSIDE RECORDS SUMMARY | 2022-02-21 10:33 | XMS_ITS | Encounter Summary ---
:1935 Author Organization [place] Address [address] [facility] [place] [address] Care Team Providers Name Role Phone Alicia Nice MD Primary Care Provider Unavailable Reason for Referral - Closed Specialty Diagnoses / Procedures Referred By Contact Refer red To Contact Diagnoses Acute myocardial infarction of other anterior wall, initial episode of care Guillermo Martinez MD [address] [place] [address] Referral ID Status Reason Start Date Expiration Date Visits Requ ested Visits Authorized [id number] Closed 09/21/2015 03/19/2016 1 1 Reason for Visit Reason Comments Hypertension Hyperlipidemia Encounter Details Date Type Department Care Team Description 09/21/2014 Office Visit Guillermo Arriaza Hyperlipide adam (Primary Dx); [place] Regino Fink MD Acute myocardial infarction of other ant erior wall, initial episode of care; [facility] [address] History of ventricular tachy cardia; [email or web address] History of acute lateral wall [place]; [address] [place], [place] Essential hypertension, louise gn; [place] [address] Coronary artery disease due to lipid jon h plaque; [address] Essential hypertension; Mixed hyperlipidemia Social History Tobacco Use Types Packs/Day Years Used Date Smoking Tobacco: Never Alcohol Use Standard Drinks/Week Comments Yes 0 (1 standard drink = 0.6 oz pure alcoho l) couple per week Sex Assigned at Date Recorded Not on file documented as of this encounter Last Filed Vital Signs Vital Sign Reading Time Taken Comments Blood Pressure 118/74 09/21/2014 8:59 AM CDT Pulse 72 09/21/2014 8:59 AM CDT Temperature - - Respiratory Rate - - Oxygen Saturation - - Inhaled Oxygen Concentration - - Weight 101.7 kg (224 lb 1.6 oz) 09/21/2014 8:59 AM CDT Height 160.7 cm (5' 3.25) 09/21/2014 8:59 AM CDT Body Mass Index 39.38 09/21/2014 8:59 AM CDT documented in this encounter Progress Notes Guillermo Martinez MD - 09/21/2014 9:50 AM CDT HPI and Plan: See dictation Orders Placed This Encounter Procedures ??? US Carotid Bilateral ??? Lipid Profile ??? ALT ??? Basic metabolic panel ??? Follow-Up with Core Cleaner Orders Placed This Encounter Medications ??? amLODIPine (NORVASC) 2.5 MG tablet Sig: Take 1 tablet (2.5 mg) by mouth daily Dispense: 90 tablet Refill: 4 ??? labetalol (NORMODYNE) 100 MG tablet Sig: Take 1 tablet (100 mg) by mouth 2 times daily Dispense: 180 tablet Refill: 4 ??? benazepril (LOTENSIN) 20 MG tablet Sig: Take 1 tablet (20 mg) by mouth daily Dispense: 90 tablet Refill: 2 ??? rosuvastatin (CRESTOR) 40 MG tablet Sig: Take 1 tablet (40 mg) by mouth daily Dispense: 90 tablet Refill: 3 ??? nitroglycerin (NITROSTAT) 0.4 MG SL tablet Sig: Place 1 tablet (0.4 mg) under the tongue every 5 minutes as needed for chest pain Dispense: 25 tablet Refill: 1 Medications Discontinued During This Encounter Medication Reason ??? clopidogrel (PLAVIX) 75 MG tablet ??? amLODIPine (NORVASC) 2.5 MG tablet Reorder ??? labetalol (NORMODYNE) 100 MG tablet Reorder ??? benazepril (LOTENSIN) 20 MG tablet Reorder ??? rosuvastatin (CRESTOR) 40 MG tablet Reorder ??? nitroglycerin (NITROSTAT) 0.4 MG SL tablet Reorder Encounter Diagnoses Name Primary? Hyperlipidemia Yes ??? Acute myocardial infarction of other anterior wall, initial episode of care ??? History of ventricular tachycardia ??? History of acute lateral wall IN ??? Essential hypertension, benign ??? Coronary artery disease due to lipid rich plaque ??? Essential hypertension ??? Mixed hyperlipidemia CURRENT MEDICATIONS: Current Outpatient [...] CAD (coronary artery disease) 1981 unrecognized Lcx IN, 2003 AWMI with VF: Lcx 100% chronic, [...] Problem Relation Age of Onset ??? Heart failure Father 66 ??? Other - See Comments Mother 63 Arterial stenosis ??? C.A.D. Son w/ V fib arrest SOCIAL HISTORY: History Social History ??? Marital Status: Spouse Name: N/A Number of Children: N/A ??? Years of Education: N/A Social History Main Topics ??? Smoking status: Never Smoker ??? Smokeless tobacco: None ??? Alcohol Use: Yes Comment: couple per week ??? Drug Use: None ??? Sexual Activity: None Other Topics Concern ??? Caffeine Concern No 4-6 cups daily of half and half ??? Special Diet No ??? Exercise No Social History Narrative Review of Systems: Skin: Positive for bruising Eyes: Positive for glasses;cataracts ENT: Negative Respiratory: Negative Cardiovascular: Positive for;fatigue Gastroenterology: Positive for vomiting Genitourinary: Positive for nocturia Musculoskeletal: Positive for joint pain Neurologic: Negative Psychiatric: Negative Heme/Lymph/Imm: Negative Endocrine: Negative Physical Exam: Vitals: BP 118/74 Pulse 72 Ht 1.607 m (5' 3.25) Wt 101.651 kg (224 lb 1.6 oz) BMI 39.36 kg/m2 Constitutional: cooperative, alert and oriented, well developed, well nourished, in no acute distress Skin: warm and dry to the touch, no apparent skin lesions or masses noted Head: normocephalic, no masses or lesions Eyes: pupils equal and round, conjunctivae and lids unremarkable, sclera white, no xanthalasma, EOMSintact, no nystagmus ENT: no pallor or cyanosis, dentition good Neck: no carotid bruit;no thyromegaly difficult to feel carotid pulse Chest: normal breath sounds, clear to auscultation, normal A-P diameter, normal symmetry, normal respiratory excursion, no use of accessory muscles Cardiac: regular rhythm, normal S1/S2, no S3 or S4, apical impulse not displaced, no murmurs, gallops or rubs Abdomen: abdomen soft, non-tender, BS normoactive, no mass, no HSM, no bruits surgical scars Vascular: pulses full and equal, no bruits auscultated Extremities and Back: no deformities, clubbing, cyanosis, erythema observed Neurological: affect appropriate, oriented to time, person and place Recent Lab Results: LIPID RESULTS: Lab Results Component Value Date CHOL 135 09/21/2014 HDL 57 09/21/2014 LDL 58 09/21/2014 TRIG 100 09/21/2014 CHOLHDLRATIO 2.4 09/21/2014 LIVER ENZYME RESULTS: Lab Results Component Value Date AST 16 01/15/2014 ALT 22 09/21/2014 CBC RESULTS: Lab Results Component Value Date WBC 5.2 01/15/2014 RBC 4.73 01/15/2014 HGB 14.2 01/15/2014 HCT 42.8 01/15/2014 MCV 90.4 01/15/2014 MCH 30.1 01/15/2014 MCHC 33.3 01/15/2014 RDW 15.2* 01/15/2014 PLT 155 01/15/2014 PLT 179 12/02/2008 BMP RESULTS: Lab Results Component Value Date NA 139 09/21/2014 POTASSIUM 3.3* 09/21/2014 CHLORIDE 105 09/21/2014 CO2 30 09/21/2014 ANIONGAP 4 09/21/2014 GLC 81 09/21/2014 BUN 12 09/21/2014 BUN 15.1 09/15/2012 CR 0.84 09/21/2014 GFRESTIMATED 66 09/21/2014 GFRESTBLACK 79 09/21/2014 RANDA 8.2* 09/21/2014 A1C RESULTS: No results found for this basename: a1c INR RESULTS: Lab Results Component Value Date INR 1.00 12/02/2008 INR 0.93 10/24/2005 CC Alicia Nice MD [facility] [address] [place] [address] Guillermo Martinez MD - 09/21/2014 9:48 AM CDT September 21, 2014 Alicia Nice MD [facility] [address] [place] [address] RE: Waqar Lundberg : [address] Nice: Thank you for referring back Waqar Lundberg. She is a delightful 78-year-old woman. She had a heart attack back in the early at an outside hospital. We met her in 2002 when she had an anterior infarct with V-fib cardiac arrest. She had a balloon angioplasty to her LAD. At that time we could not get a stent down because of the calcification, although with today's technology, no doubt we could. Followup angiogram showed there was only 50% LAD lesion, 50% right coronary lesion, and the circumflex was occluded from her 1979 heart attack. She has done well, with not a bit of heart problems since that time. She has had a couple of false positive stress tests, and followup angiograms did not show any ischemia. If she were to need another stress test, it would probably need to be an MRI stress test.Her cholesterol numbers were drawn today. They are excellent. She does run slightly low potassium at3.3. It is not clear why. She is not on any medicines that lower potassium, although she has had some nausea and vomiting, for which you are going to be seeing her. She states she has a visit coming upwith your office, although not necessarily with you, since I think you may have switched clinics. I asked her to kindly get a potassium level, and she states that she would indeed do that at [place]. Cardiac figueroa, I will see her back in a year. We will repeat her electrolytes and lipids. I am also going to do a carotid ultrasound because I do have a slightly hard time feeling her carotid arteries, but there are no bruits present. This was a 30-minute visit, greater than 50% counseling. Sincerely, MD GUILLERMO Garcia MD MT: GF Name: WAQAR LUNDBERG Account: [id number] : 1935 Service Date: 09/21/2014 Document: [id number] documented in this encounter Plan of Treatment Scheduled Referrals Name Type Priority Associated Diagnoses Order S chedule Follow-Up with Referral Routine Acute myocardial Expected: 09/21/2015 Core Cleaner infarction of anterior (Appr oximate), wall, initial episode s: 02/03/2016 of care (H) documented as of this encounter Results US Carotid Bilateral (10/03/2015 [...] different from the original. ULTRASOUND CAROTID BILATERAL May 23, 201 6 8:50 AM HISTORY: Decreased palpation of carotid [...] MD Guillermo Martinez MD IMG US ORDERABLES (ABNORMAL) Basic metabolic panel (10/03/2015 8:17 AM CDT) athologist Signature Sodium 139 133 - 144 [place] mmol/L [facility] Potassium 3.7 3.4 - 5.3 [place] mmol/L [facility] Chloride 110 (H) 94 - 109 [place] mmol/L [facility] Carbon Dioxide 22 20 - 32 [place] mmol/L [facility] Anion Gap 7 3 - 14 [place] mmol/L [facility] Glucose 99 70 - 99 [place] mg/dL [facility] Urea Nitrogen 10 7 - 30 [place] mg/dL [facility] Creatinine 0.80 0.52 - [place] 1.04 mg/dL [facility] GFR Estimate 69 >60 [place] mL/min/1.[address] Comment: Non GFR Calc GFR Estimate If Black 84 >60 mL/min/1.7m2 F [facility] Comment: GFR Calc Calcium 8.3 (L) 8.5 - 10.1 mg/dL [facility] Specimen Anatomical Collection Method Collection Time Receive d Time (Source) Location / / Volume Laterality Blood specimen 10/03/2015 8:17 AM 016 8:20 (specimen) CDT AM CDT Guillermo Martinez MD LAB - BLOOD ORDERABLES Performing Organization Address City/State/ZIP Code Phon e Number [facility] [address] [place] [address] [phone] [facility] [address] [place] [address], [place] [phone] ALT (10/03/2015 8:17 AM CDT) athologist Signature ALT 19 0 - 50 U/L [facility] Specimen Anatomical Collection Method Collection Time Receive d Time (Source) Location / / Volume Laterality Blood specimen 10/03/2015 8:17 AM 016 8:20 (specimen) CDT AM CDT Guillermo Martinez MD LAB - BLOOD ORDERABLES Performing Organization Address City/[facility]/ZIP Code Phon e Number [facility] [address] [place] [address] [facility] [address] [place] [address], [place] [phone] Lipid Profile (10/03/2015 8:17 AM CDT) athologist Signature Cholesterol 129 <200 mg/dL [facility] Triglycerides 85 <150 mg/dL [facility] Comment: Fasting specimen HDL Cholesterol 56 >49 mg/dL [facility] LDL Cholesterol Calculated 56 <100 mg/dL FA [facility] Comment: Desirable: <100 mg/dl Non HDL Cholesterol 73 <130 mg/dL [facility] Specimen Anatomical Collection Method Collection Time Receive d Time (Source) Location / / Volume Laterality Blood specimen 10/03/2015 8:17 AM 016 8:20 (specimen) CDT AM CDT Guillermo Martinez MD LAB - BLOOD ORDERABLES Performing Organization Address City/[facility]/ZIP Code Phon e Number [facility] [address] [place] [address] [phone] [facility] [address] [place] [address], [place] [phone] documented in this encounter Visit Diagnoses Diagnosis Hyperlipidemia - Primary Other and unspecified hyperlipidemia Acute myocardial infarction of other ant erior wall, initial episode of care History of ventricular tachycardia Personal history of other diseases of ci rculatory system History of acute lateral wall IN Old myocardial infarction Essential hypertension, benign Coronary artery disease due to lipid jon h plaque Essential hypertension Unspecified essential hypertension Mixed hyperlipidemia Acute myocardial infarction of anterior wall, initial episode of care (H) Acute myocardial infarction of other ant erior wall, initial episode of care documented in this encounter Care Teams Object Oriented Developer Relationship Specialty Start Date End Date Alicia Nice MD PCP - General Family Practice 08/25/12 6 documented as of this encounter
[2022-02-21 10:34] LABS: Chloride* 97 mmol/L (96-114)
--- OUTSIDE RECORDS SUMMARY | 2022-02-21 10:34 | XMS_ITS | Encounter Summary ---
:1935 Author Organization [place] Address [facility] hospital[facility] [place] [address] Care Team Providers Name Role Phone Alicia Nice MD Primary Care Provider Unavailable Les Fair MD Primary Care Provider [facility] Primary Care Provider [phone] None Primary Care Provider Unavailable Allyson Pool Primary Care Provider Guillermo Martinez MD Unavailable Encounter Details Date Type Department Care Team Description 02/17/2010 Office Visit-[facility] [place] Fink, [employer]ARD LABORER [address] [facility] [address] [facility] [address] [place] [address] [place] [id number] (Wo rk) Social History Tobacco Use Types Packs/Day Years Used Date Smoking Tobacco: Never Assessed Sex Assigned at Date Recorded Not on file documented as of this encounter Progress Notes Jesús Almanza, EXPLOSIVE ORDNANCE MANAGER - 02/21/2010 1:21 PM CDT Progress Note Created by: Jesús Almanza, N.P. DATE: 02/17/2010 WAQAR LUNDBERG DATE OF : 1935 AGE: [age] years old Referring Physician: ALICIA NICE Referring Clinic: [facility] CURRENT DIAGNOSES 1. - CAD, 414.00 2. Hypertension-Essential (Benign), 401.1 3. - Hyperlipidemia, 272.4 4. Status post-PTCA, V45.82 5. Obesity-(<LT>100 ), 278.00 6. UT-Acute Anterior, 410.11 7. Ventricular tachycardia, 427.1 ALLERGIES Atorvastatin Calcium, Muscle aches Morphine Sulfate, Intolerance-vomiting MEDICATIONS (prior to changes made today) 1. Aspir-Low 81 mg Tablet, Delayed Release (E.C.), 1 p.o. daily 2. Labetalol 100 Mg Tablet, 1 p.o. twice daily 3. Benazepril 40 Mg Tablet, 1/2 p.o. daily 4. Amlodipine 5 Mg Tablet, 1 p.o. daily 5. Crestor 40 mg Tablet, 1 p.o. daily 6. Dyazide 37.5-25 Mg Capsule, 1 p.o. daily 7. Plavix 75 Mg Tablet, 1 p.o. daily 8. Nitroglycerin 0.4 Mg Tablet, Sublingual, Take as Directed 9. Paxil 10 mg Tablet, 1/2 tab daily CHIEF COMPLAINTS follow up dyslipidemia, cad HISTORY OF PRESENT ILLNESS Waqar Lundberg is a 74-year-old female who returns today to review her lipid profile. She has a history of coronary artery disease. In the fall of 2008, her nuclear test appeared to have an increase reversibility in the left anterior descending distribution. Based on her known heart disease, she went back for a repeat angiogram, showing no progression. A left anterior descending wave wire showed a fractional flow reserve of 0.9 in her left anterior descending. There have historically been discrepancies between her left ventricular function and left ventriculogram and nuclear testing. Her last echo showed an ejection fraction of 55%. Nuclear testing causes her a great amount of anxiety. She has had statin intolerances in the past due to myalgias. She is currently on Crestor at 40 mg a day, which she is tolerating very well, much to her surprise. Her lipids look the best they have looked in quite a long time. Her triglycerides are 85, total cholesterol 134, HDL 49, LDL 69, ALT 31, with no myalgias. Her blood pressure has actually lowered quite significantly, and she notes some intermittent lightheadedness now. Her weight is essentially stable but down 11 pounds, in fact down 18 pounds from just over a year ago. She is struggling with some reflux and recently underwent an endoscopy.She is awaiting those results to determine if she needs proton-pump inhibitor or H2 rosy. She hasno cardiac symptoms to speak of and minimal edema today, which can be a chronic problem for her, as well. PAST HISTORY Past Medical Illnesses: hyperlipidemia, hypertension, obesity, cellulitis, benign breast bx, lung nodule (followed by CT perpmd), varicose vein Past Cardiac Illnesses: coronary artery disease, S/P myocardial infarction-anterior, VF arrest with UT, NSVT immed after UT,Lat UT 1980, Ant UT (Vfib) 10-13 Cath-PTCA LAD(too tortuous for stent), 100%Lcx-OM, 50-60% RCA, PAC, PAT-non sust, Cath 11-18 Lma-nl, Lad 50%(-tortuous couldn't do stent previously(nl FFR), Diag 50%, Lcxsmall (OM chronic occlusion), RCA 50%, Nl EF Infectious History: cellulitis Surgeries/Procedures - General: appy, mario, tonsillectomy, BHARAT, varicose vein strip Cardiology Procedures-Invasive: cardiac cath (left) Oct 2002 cardiac cath (left) November 2002, cardiac cath (left) October 2005, cardiac cath (left) November 2008, Cardiology Procedures-Noninvasive: holter monitor November 2002, myocardial perfusion imaging (Nuclear) 12/13, 04/14, 09/15, 11/18 Cardiac Cath Results: 10/13 PTCR/LAD,11/12 NO restenosis of LAD,chronic occluded OM1,3 vessel disease,10/16 3 vessel disease, ICD not indicated,cont.med mgt.11/18 CAD,occlude OM1, No culprit lesions for new ischemia on thisstudy,Continued medical therapy Left Ventricular Ejection Fraction: EF 35-40% by cath 10/13, EF 35-40% by cath 11/12, EF 35% by heart Cath 10/16,EF 55% by cath 11/18, EF 57% post stress 54% rest by nuc 11/18, EF 55% by cath November 2008 Nuclear Results: 11/18 Defect.-extensive anterior,apical+anteroseptal non-transmural UT in LAD wi/significant,mod.corina-infarct isch.Second defect.- extensive lateral UT in the CFX artery w/no reversible isch.Third defect-small basal inferior infarction in the RCA FAMILY HISTORY: Father - Age 66, CHF; Mother - Age 63, arterial stenosis; SOCIAL HISTORY Alcohol Use - drinks rarely; Smoking - does not smoke; Diet - caffeine use-3-4 per day, low sodium (less than 2 grams) and low fat Diet; Lifestyle - and children; Exercise - no regular exercise; Seat Belt Use - always; Occupation - retired; Residence - lives with ; Place of - [place]; REVIEW OF SYSTEMS GENERAL weight gain, 2 lb, feels well, no change in exercise tolerance. INTEGUMENTARY denies any change in hair or nails, rashes, or skin lesions. EYES wears eye glasses/contact lenses EARS, NOSE, THROAT, MOUTH denies any hearing loss, epistaxis, hoarseness or difficulty speaking., post nasal drip RESPIRATORY cough, intermittent-has post nasal drip CARDIOVASCULAR light headedness, edema of the ankles ABDOMINAL history of GERD and recently undergone scopes MUSCULOSKELETAL neck shoulder pains NEUROLOGICAL denies any history of recurrent strokes, TIA, or seizure disorder. PSYCHIATRIC stress, depression, anxiety ENDOCRINE weight loss HEMATOLOGICAL/IMMUNOLOGIC medication allergies, seasonal allergies PHYSICAL EXAMINATION VITAL SIGNS: Blood Pressure: 104/57Sitting, Left arm, large cuff 96/60Retaken by EXPLOSIVE ORDNANCE MANAGER/PA Pulse- 78.00/min. Weight- 230.00 lbs. Height- 65.00 Temperature- .00 CONSTITUTIONAL cooperative anxious and hyperventilating intermittently SKIN warm and dry to touch, no apparent skin lesions, or masses noted. HEAD normocephalic, atraumatic EYES conjunctivae and lids unremarkable, Pupils equal and round, EOMS intact ENT no pallor or cyanosis, dentition good NECK carotid pulses are full and equal bilaterally, JVP normal, no carotid bruit, no thyromegaly CHEST normal symmetry, no tenderness to palpation, normal respiratory excursion, no intercostal retraction, no use of accessory muscles, clear to auscultation and percussion. CARDIAC regular rhythm, S1 normal, S2 normal, No S3 or S4, Apical impulse not displaced, no murmurs, gallopsor rubs detected. ABDOMEN abdomen soft, bowel sounds normoactive, no masses, no hepatosplenomegaly, non- tender, no bruits, obese PERIPHERAL PULSES pulses full and equal in all extremities, no bruits auscultated. EXTREMITIES & BACK chronic edema, mild hemosiderin deposit due to varicose vein strip, deformity of R ankle due to prior injury, extensive varicose veins in legs, errythema right lower extremity NEUROLOGICAL no gross motor deficits noted, affect appropriate, oriented to time, person and place. MEDICATIONS UPDATED/STARTED TODAY: Benazepril 40 Mg Tablet, 1/2 p.o. daily, #90 Labetalol 100 Mg Tablet, 1 p.o. twice daily, #-1 MEDICATIONS REFILLED/STOPPED TODAY: Benazepril 40 Mg Tablet 1 p.o. daily #90 Refill and Labetalol 100 Mg Tablet 2 p.o. twice daily 540 tablets Refill IMPRESSIONS/PLAN 1. Coronary artery disease. Her last angiogram based on an increase reversibility on a nuclear test was done in November of 2008, showing no changes in her anatomy. She has no clinical symptoms. I will have her see Dr. Martinez back in the spring, and I would ask him to determine which modality would be apolonia ropriate to follow her coronary disease or if we should go by symptomology alone. 2. Normal ejectionfraction by echo. 3. Hypertension. In fact, tending towards hypotensive at times, with some mild dizziness. I will decrease benazepril to 20 mg daily. I have told her if her blood pressure is not staying in the 120s that she should increase it again to 40 mg a day. 4. Dyslipidemia, at goal. Continue Crestor 40 mg a day, weight loss, exercise and we will repeat in six months. I will also check a BMP at that time, and she will see Dr. Martinez back. It has been a pleasure seeing Waqar in followup. She will return to see us in the spring or sooner should any symptoms occur in the interim. TODAYS ORDERS 1. F/U with Guillermo Martinez MD 6 months-HIEFETZ ONLY PLEASE NOT EXPLOSIVE ORDNANCE MANAGER 2. Lipid profile/ALT 6 months 3. BMP 6 months Jesús Almanza, N.P. documented in this encounter Plan of Treatment Not on filedocumented as of this encounter Visit Diagnoses Not on filedocumented in this encounter Care Teams Salesperson Neckties Relationship Specialty Start Date End Date Alicia Nice MD PCP - General Family Practice 08/25/12 6 Les Fair MD PCP - General Family Practice 08/23/15 12/29/15 [address] [place] [address] [facility] PCP - General 12/30/15 10/15/16 [address] [place], [place] [id number] None PCP - General 10/16/16 01/10/17 Allyson Pool PA PCP - General 04/27/17 [facility] [address] [place] [address] Guillermo Martinez MD MD Cardiology 11/15/[address] [place] [address] documented as of this encounter
--- OUTSIDE RECORDS SUMMARY | 2022-02-21 10:34 | XMS_ITS | Encounter Summary ---
:1935 Author Organization [place] Address [address] [facility] [address] Care Team Providers Name Role Phone Alicia Nice MD Primary Care Provider Unavailable Reason for Visit Reason Onset Date Comments Refill Request 10/19/2013 Amlodipine Encounter Details Date Type Department Care Team Description 10/19/[address] [facility] Heart Guillermo Martinez , Refill Request Clinic Karina EVANGELISTA (Amlodipine) [address] [facility] [address] [facility] [address] [place] [address] [place] [phone] [address] (Wo rk) Social History Tobacco Use Types Packs/Day Years Used Date Smoking Tobacco: Never Assessed Sex Assigned at Date Recorded Not on file documented as of this encounter Plan of Treatment Not on filedocumented as of this encounter Visit Diagnoses Diagnosis Essential hypertension, benign - Primary documented in this encounter Care Teams Applied Statistician Relationship Specialty Start Date End Date Alicia Nice MD PCP - General Family Practice 08/25/12 6 documented as of this encounter
--- OUTSIDE RECORDS SUMMARY | 2022-02-21 10:34 | XMS_ITS | Encounter Summary ---
:1935 Author Organization [place] Address [address] [facility] [place] [address] Care Team Providers Name Role Phone Unavailable Primary Care Provider Unavailable Encounter Details Date Type Department Care Team Description 08/17/2010 Hospital Laboratory [facility] Results [facility] [address] [place] [address] (Wo rk) Social History Tobacco Use Types Packs/Day Years Used Date Smoking Tobacco: Never Assessed Sex Assigned at Date Recorded Not on file documented as of this encounter Plan of Treatment Not on filedocumented as of this encounter Procedures Procedure Name Priority Date/Time Associated Diagnosis Comme nts LIPID PROFILE Routine 08/17/2010 8:56 AM Results for this CDT procedure are i n the results section. ALT Routine 08/17/2010 8:56 AM Results f or this CDT procedure are i n the results section. BASIC METABOLIC Routine 08/17/2010 8:56 AM Result s for this PANEL CDT procedure are i n the results section. documented in this encounter Results (ABNORMAL) Basic metabolic panel (08/17/2010 8:56 AM CDT) P athologist Signature Sodium 141 133 - 144 [place] mmol/L [facility] Potassium 3.9 3.4 - 5.3 [place] mmol/L [facility] Chloride 102 94 - 109 [place] mmol/L [facility] Carbon Dioxide 32 20 - 32 [place] mmol/L [facility] Anion Gap 7 6 - 17 [place] mmol/L [facility] Glucose 97 60 - 99 [place] mg/dL [facility] Urea Nitrogen 18 7 - 30 [place] mg/dL [facility] Creatinine 1.02 0.52 - [place] 1.04 mg/dL [facility] GFR Estimate 53 (L) >60 [place] mL/min/1.[address] LAB GFR Estimate If 64 >60 [place] Black mL/min/1.7 [facility] m2 [facility] Calcium 8.9 8.5 - 10.4 [place] mg/dL [facility] Specimen Anatomical Collection Method Collection Time Receive d Time (Source) Location / / Volume Laterality 08/17/2010 8:56 AM 1 9:07 CDT AM CDT Hattie Almanza LAB - BLOOD ORDERABLES Performing Organization Address City/State/ZIP Code Phon e Number [place] [address] [place], [place] [address] [facility] Lipid panel (08/17/2010 8:56 AM CDT) P athologist Signature Cholesterol 136 0 - 200 [place] mg/dL [facility] Comment: LDL Cholesterol is the primary guide to therapy. The NCEP recommends further evaluation of: patients with cholesterol <200 mg/dL if additional risk factors are present, cholesterol >240 mg/dL, triglycerides >150 mg/dL, or HDL <40 mg/dL. Triglycerides 103 0 - 150 mg/dL [facility] HDL Cholesterol 58 50 - 110 mg/dL [facility] LDL Cholesterol Calculated 57 0 - 129 mg/dL [facility] Comment: LDL Cholesterol is the primary guide to therapy: LDL-cholesterol goal in high risk patients is <100 mg/dL and in very high risk patients is <70 mg/dL. VLDL-Cholesterol 21 0 - 30 mg/dL [facility] Cholesterol/HDL Ratio 2.3 0.0 - 5.0 [facility] Specimen Anatomical Collection Method Collection Time Receive d Time (Source) Location / / Volume Laterality 08/17/2010 8:56 AM 1 9:07 CDT AM CDT Hattie Almanza LAB - BLOOD ORDERABLES Performing Organization Address City/[facility]/ZIP Code Phon e Number Aleks [facility] [address] [place], [place] [address] [facility] ALT (08/17/2010 8:56 AM CDT) athologist Signature ALT 25 0 - 50 U/L [facility] Specimen Anatomical Collection Method Collection Time Receive d Time (Source) Location / / Volume Laterality 08/17/2010 8:56 AM 1 9:07 CDT AM CDT Hattie Almanza LAB - BLOOD ORDERABLES Performing Organization Address City/[facility] Code Phon e Number Aleks [facility] [address] [place], [place] [address] [facility] documented in this encounter Visit Diagnoses Not on filedocumented in this encounter
--- OUTSIDE RECORDS SUMMARY | 2022-02-21 10:34 | XMS_ITS | Encounter Summary ---
:1935 Author Organization [place] Address [address] [facility] [place] [address] Care Team Providers Name Role Phone Alicia Nice MD Primary Care Provider Unavailable Encounter Details Date Type Department Care Team Description 09/11/2012 Hospital Laboratory [facility] Guillermo Martinez [facility] Results [address] [place] [phone] (Wo rk) Social History Tobacco Use Types Packs/Day Years Used Date Smoking Tobacco: Never Assessed Sex Assigned at Date Recorded Not on file documented as of this encounter Plan of Treatment Not on filedocumented as of this encounter Procedures Procedure Name Priority Date/Time Associated Diagnosis Comme nts LIPID PROFILE Routine 09/11/2012 8:41 AM Results for this CDT procedure are i n the results section. ALT Routine 09/11/2012 8:41 AM Results f or this CDT procedure are i n the results section. BASIC METABOLIC Routine 09/11/2012 8:41 AM Result s for this PANEL CDT procedure are i n the results section. documented in this encounter Results (ABNORMAL) Basic metabolic panel (09/11/2012 8:41 AM CDT) P athologist Signature Sodium 140 133 - 144 [facility] mmol/L [facility] Potassium 3.1 (L) 3.4 - 5.3 [facility] mmol/L [facility] Chloride 96 94 - 109 [place] mmol/L [facility] Carbon Dioxide 32 20 - 32 [facility] [place] mmol/L [facility] Anion Gap 11.6 6 - 17 [facility] [place] mmol/L [facility] Glucose 94 60 - 99 [facility] [place] [place] mg/dL [facility] Urea Nitrogen 20 7 - 30 [facility] [place] [place] mg/dL [facility] Creatinine 1.04 0.52 - [facility] [place] [place] 1.04 mg/dL [facility] GFR Estimate 52 (L) >60 [facility] [place] mL/min/1.[address] LAB GFR Estimate If 63 >60 [facility] [place] [place] Black mL/min/1.[address] LAB Calcium 8.8 8.5 - 10.4 [facility] [place] [place] mg/dL [facility] Specimen Anatomical Collection Method Collection Time Receive d Time (Source) Location / / Volume Laterality 09/11/2012 8:41 AM 3 9:01 CDT AM CDT Guillermo Martinez MD LAB - BLOOD ORDERABLES Performing Organization Address City/State/ZIP Code Phon e Number M [place] [address] [place] [address] [facility] Lipid Profile (09/11/2012 8:41 AM CDT) athologist Signature Cholesterol 145 0 - 200 [facility] [place] [place] mg/dL [facility] Comment: LDL Cholesterol is the primary guide to therapy. The NCEP recommends further evaluation of: patients with cholesterol greater than 200 mg/dL if additional risk facto rs are present, cholesterol greater than 240 mg/dL, triglycerides greater than 1 50 mg/dL, or HDL less than 40 mg/dL. Triglycerides 127 0 - 150 mg/dL [facility] HDL Cholesterol 51 50 - 110 mg/dL [facility] LDL Cholesterol Calculated 68 0 - 129 mg/dL [facility] Comment: LDL Cholesterol is the primary guide to therapy: LDL-cholesterol goal in high risk patients is <100 mg/dL and in very high risk patients is <70 mg/dL. VLDL-Cholesterol 25 0 - 30 mg/dL [facility] Cholesterol/HDL Ratio 3.0 0.0 - 5.0 [facility] Specimen Anatomical Collection Method Collection Time Receive d Time (Source) Location / / Volume Laterality 09/11/2012 8:41 AM 3 9:01 CDT AM CDT Guillermo Martinez MD LAB - BLOOD ORDERABLES Performing Organization Address City/State/ZIP Code [facility] suzanna [place] [address] [place], [place] [address] [facility] ALT (09/11/2012 8:41 AM CDT) athologist Signature ALT 23 0 - 50 U/L [facility] Specimen Anatomical Collection Method Collection Time Receive d Time (Source) Location / / Volume Laterality 09/11/2012 8:41 AM 3 9:01 CDT AM CDT Guillermo Martinez MD LAB - BLOOD ORDERABLES Performing Organization Address City/[facility] suzanna [place] [address] [place], [place] [address] [facility] documented in this encounter Visit Diagnoses Not on filedocumented in this encounter Care Teams Ticket Dispatcher Relationship Specialty Start Date End Date Alicia Nice MD PCP - General Family Practice 08/25/12 6 documented as of this encounter
--- OUTSIDE RECORDS SUMMARY | 2022-02-21 10:34 | XMS_ITS | Encounter Summary ---
:1935 Author Organization [place] Address [address] [facility] [place] [address] Care Team Providers Name Role Phone Shawn Nice MD Primary Care Provider Unavailable Les Fair MD Primary Care Provider [facility] Primary Care Provider [phone] None Primary Care Provider Unavailable Allyson Pool Primary Care Provider Guillermo Martinez MD Unavailable Encounter Details Date Type Department Care Team Description 01/18/2009 Office Visit-[facility] Heart Saw Martinez, Clinic Karina EVANGELISTA [address] [facility] [address] [facility] [address] [place] [address] [place] [address] (Wo rk) Social History Tobacco Use Types Packs/Day Years Used Date Smoking Tobacco: Never Assessed Sex Assigned at Date Recorded Not on file documented as of this encounter Progress Notes Guillermo Martinez MD - 01/20/2009 12:38 PM CDT Progress Note Created by: Guillermo Martinez M.D. DATE: 01/18/2009 FIDELIA LUNDBERG DATE OF : 1935 AGE: [age] years old Referring Physician: SHAWN NICE Referring Clinic: [facility] CURRENT DIAGNOSES 1. - CAD, 414.00 2. Hypertension-Essential (Benign), 401.1 3. - Hyperlipidemia, 272.4 4. Status post-PTCA, V45.82 5. Obesity-(<LT>100 ), 278.00 6. UT-Acute Anterior, 410.11 7. Ventricular tachycardia, 427.1 ALLERGIES lipitor-myalgias Morphine, Vomiting MEDICATIONS (prior to changes made today) 1. Labetalol Hydrocloride 100 mg, 1 tab in the am and 1 1/2 tab in the pm 2. Crestor 20 Mg, 1 p.o. daily 3. Paxil 10 mg, 1/2 tab daily 4. Plavix 75 Mg, 1 p.o. daily 5. Nitroglycerin 0.4 Mg, Take as Directed 6. Amlodipine 5 Mg, 1 p.o. daily 7. Aspir-low 81 Mg, 1 p.o. daily 8. Benazepril Hydrochloride 40 Mg, 1 p.o. daily 9. Dyazide 25 Mg-37.5 Mg, 1 p.o. daily CHIEF COMPLAINTS Follow up, review labs HISTORY OF PRESENT ILLNESS Fidelia Lundberg returns for followup. Please see her recent hospitalization with a heart catheterization. Fortunately, she has no more than 50% narrowing, no flow- limiting lesions. Her ejection fraction is normal. Her cholesterol is running slightly high. She had her Crestor bumped from 10 up to 20 but that was only three weeks ago. It was being checked today since she had an office visit scheduled routinely with me. Her cholesterol numbers really are not any different than they were three weeks ago. Rather than increase the Crestor further I am simply going to wait and have her come back in three months. We will redo a cholesterol check at that time. She reports absolutely no cardiovascular symptoms at this time; specifically, no chest pain, shortness of breath, dizziness, etc. We will see her back in three months. Total consult time: 15 minutes, all counseling. PAST HISTORY Past Medical Illnesses: hyperlipidemia, hypertension, [...] vein strip Cardiology Procedures-Invasive: cardiac cath (left) November 2002, cardiac cath (left) October 2005, cardiac cath (left) November 2008 Cardiology Procedures-Noninvasive: holter monitor November 2002, myocardial perfusion imaging (Nuclear) December 2002, myocardial perfusion imaging (Nuclear) April 2003, treadmill cardiolite September 2005, adenosine cardiolite November 2008 Cardiac Cath Results: 10/16-Three vessel diease with EF of 35%,, 10/16- Three vessel disease with EF of 35%, no change in coronary lesions Left Ventricular Ejection Fraction: 10/16-EF 35% by heart Cath, EF 55% by cath November 2008 TODAYS ORDERS 1. Lipid profile/ALT 4 days 2. Lipid profile/ALT 3 months 3. F/U with Jesús Almanza, MSN, ANP 3 months Guillermo Martinez M.D. documented in this encounter Plan of Treatment Not on filedocumented as of this encounter Visit Diagnoses Not on filedocumented in this encounter Care Teams Terra Cotta Setter Relationship Specialty Start Date End Date Shawn Nice MD PCP - General Family Practice 08/25/12 6 Les Fair MD PCP - General Family Practice 08/23/15 12/29/15 [address] [place] [address] [facility] PCP - General 12/30/15 10/15/16 [address] [facility] [place] [address] None PCP - General 10/16/16 01/10/17 Allyson Pool PA PCP - General 04/27/17 [facility] [address] [place] [address] Guillermo Martinez MD MD Cardiology 11/15/17 [address] [facility] [address] [place] [id number] documented as of this encounter
--- OUTSIDE RECORDS SUMMARY | 2022-02-21 10:34 | XMS_ITS | Encounter Summary ---
:1935 Author Organization [place] Address [facility] [place] [address] Care Team Providers Name Role Phone Alicia Nice MD Primary Care Provider Unavailable Les Fair MD Primary Care Provider [facility] Primary Care Provider None Primary Care Provider Unavailable Allyson Pool Primary Care Provider Guillermo Martinez MD Unavailable Encounter Details Date Type Department Care Team Description 03/13/2013 Office Visit-[facility], Clinic [place], [place] CLASSROOM TUTOR RN FLIGHT [address] [place] [address] [place] [id number] (Wo rk) Social History Tobacco Use Types Packs/Day Years Used Date Smoking Tobacco: Never Assessed Sex Assigned at Date Recorded Not on file documented as of this encounter Progress Notes Jesús Almanza, CONSULTING SERVICES MANAGER - 05/16/2013 6:36 AM CST Progress Note Created by: Jesús Almanza, N.P. DATE: 03/13/2013 WAQAR LUNDBERG DATE OF : 1935 AGE: [age] years old Referring Physician: ALICIA NICE Referring Clinic: [facility] CURRENT DIAGNOSES 1. - Hyperlipidemia, 272.4 2. Hypertension-Essential (Benign), 401.1 3. - CAD, 414.00 4. Ventricular tachycardia, 427.1 5. Status post-PTCA, V45.82 6. PA-Acute Anterior, 410.11 7. Obesity-(<LT>100 ), 278.00 ALLERGIES Atorvastatin Calcium, Muscle aches Morphine Sulfate, Intolerance-vomiting MEDICATIONS (prior to changes made today) 1. amlodipine 2.5 mg tablet 1 p.o. daily 2. Aspir-Low 81 mg Tablet, Delayed Release (E.C.) 1 p.o. daily 3. benazepril 20 mg tablet 1 p.o. daily 4. clopidogrel 75 mg tablet 1 p.o. daily 5. Crestor 40 mg tablet 1 p.o. daily 6. famotidine 20 mg Tablet 1 p.o. twice daily prn 7. labetalol 100 mg tablet 1 p.o. twice daily 8. nitroglycerin 0.4 mg tablet, sublingual Take as Directed 9. Paxil 10 mg Tablet 1/2 tab daily CHIEF COMPLAINTS Followup of follow up cad, hypertension HISTORY OF PRESENT ILLNESS: Waqar Lundberg is a delightful 77-year-old female who is here to follow-up on her electrolyte panel. She had a heart attack a number of years ago before we met her, likely from an occluded circumflex marginal vessel. In 2002, she had an anterior wall PA with a ventricular fibrillation arrest and an LAD stent was placed. She had follow-up angiograms in 2005 and 2008 because of a stress test that turned out to be false-positive. She is having no angina. Her coronaries are heavily calcified, so CT angiogram is not an ideal way to follow her, nor are stress tests as they are false-positive. She is having no symptoms. She has lost weight over the years and has had some lower blood pressures because of this. She was also having dizziness with low potassiums. Her diuretic therapy was discontinued. She now has very acceptable blood pressures with minimal dizziness. Her electrolyte panel today is normal. Her last lipids look well controlled with an LDL of 68, HDL of 51 and triglycerides 127 drawn on Crestor 40 mg daily. She has no complaints today. I do not note an orthostatic drop. Unfortunately, she has had a lot of stress. Her son is now our patient and had a sizable infarct with an arrest recently as well. Thankfully, he has started to recover and, once again, she is quite thankful for our care here. PAST HISTORY Past Medical Illnesses: hyperlipidemia, hypertension, obesity, cellulitis, benign breast bx, lung nodule (followed by CT perpmd), varicose vein, GERD Past Cardiac Illnesses: coronary artery disease, S/P myocardial infarction-anterior, VF arrest with PA, NSVT immed after PA,Lat PA 1980, Ant PA (Vfib) 10-13 Cath-PTCA LAD(too tortuous for stent), 100%Lcx-OM, 50-60% RCA, PAC, PAT-non sust, Cath 11-18 Lma-nl, Lad 50%(-tortuous couldn't do stent previously(nl FFR), Diag 50%, Lcxsmall (OM chronic occlusion), RCA 50%, Nl EF NYHA Classification: Note: false positive Nuc GXT Infectious History: cellulitis Surgeries/Procedures - General: appy, mario, tonsillectomy, BHARAT, varicose vein strip Cardiac/Vasc Procedures-Invasive: cardiac cath (left) Oct 2002 cardiac cath (left) November 2002, cardiac cath (left) October 2005, cardiac cath (left) November 2008, Cardiology Procedures-NonInvasive: holter monitor November 2002, myocardial perfusion imaging [...] 2008 Nuclear Results: 11/18 Defect.-extensive anterior,apical+anteroseptal non-transmural PA in LAD wi/significant,mod.corina-infarct isch.Second defect.- extensive lateral PA in the CFX artery w/no reversible isch.Third defect-small basal inferior infarction in the RCA EF 35-40% by cath 10/13, EF 35-40% by cath 11/12, EF 35% by heart Cath 10/16,EF 55% by cath 11/18, EF 57% post stress 54% rest by nuc 11/18 and EF 55% by cath November 2008 FAMILY HISTORY: Father - Age 66, CHF; Mother - Age 63, arterial stenosis; Son - CAD and V fib arrest (survived); SOCIAL HISTORY Alcohol Use - drinks rarely; Smoking - does not smoke; Diet - low sodium, low fat Diet and caffeine use-5 or more per day; Lifestyle - and children; Exercise - no regular exercise; Seat Belt Use - always; Occupation - retired; Residence - lives with ; Place of - [place]; REVIEW OF SYSTEMS GENERAL no change in weight, no change in appetite, positive for energy INTEGUMENTARY denies any change in hair or nails, rashes, or skin lesions. EYES wears eye glasses/contact lenses EARS, NOSE, THROAT, MOUTH denies any hearing loss, epistaxis, hoarseness or difficulty speaking., post nasal drip RESPIRATORY cough, once in a while CARDIOVASCULAR light headedness, sometimes, negative for chest discomfort, negative for palpitations, negative for edema ABDOMINAL history of GERD GENITOURINARY-FEMALE no concerns MUSCULOSKELETAL denies any history of arthritic symptoms or back problems. NEUROLOGICAL denies any history of recurrent strokes, TIA, or seizure disorder. PSYCHIATRIC anxiety controlled with medication, stress controlled ENDOCRINE denies any history of thyroid disease or diabetes mellitus. HEMATOLOGICAL/IMMUNOLOGIC medication allergies, seasonal allergies PHYSICAL EXAMINATION VITAL SIGNS: Blood Pressure: 106/58Sitting, Right arm, large cuff 120/60Retaken by CONSULTING SERVICES MANAGER/PA-[id number] 118/62Standing, Left arm, large cuff Pulse- 72.00/min. Weight- 217.60 lbs. Height- 63.25 BMI Measurement: Celebration Creation Error: [Microsoft][Celebration Creation SQL Electronic Bench Technician Security Management Specialist][SQL Electronic Bench Technician]Divide by zero error encountered. - [id number] CONSTITUTIONAL cooperative anxious and hyperventilating intermittently SKIN [...] masses, no hepatosplenomegaly, non- tender, no bruits, obese, abd scar healed PERIPHERAL PULSES pulses full and equal in all extremities, no bruits auscultated. EXTREMITIES & BACK chronic edema, mild hemosiderin deposit due to varicose vein strip, deformity of R ankle due to prior injury, extensive varicose veins in legs, errythema right lower extremity, minimal edema today 4 7 11 NEUROLOGICAL no gross motor deficits noted, affect appropriate, oriented to time, person and place. MEDICATIONS UPDATED/STARTED TODAY: IMPRESSION/PLAN: 1. Coronary artery disease, status post ventricular fibrillation arrest in 2002. Follow-up angiograms have not identified any ongoing progression of her disease. She has an occluded circumflex. She is having no angina. LV function is well maintained. 2. Dyslipidemia, controlled. Continue the same. 3. Blood pressure is reasonable. I have made no changes in her medications today. We will plan to see her back in six months time and repeat her electrolyte panel and her lipid profile. It has been a great pleasure, as always, seeing Waqar in follow-up. Jesús Almanza RN, CONSULTING SERVICES MANAGER-C, MSN documented in this encounter Plan of Treatment Not on filedocumented as of this encounter Visit Diagnoses Not on filedocumented in this encounter Care Teams Weight Trainer Relationship Specialty Start Date End Date Alicia Nice MD PCP - General Family Practice 08/25/12 6 Les Fair MD PCP - General Family Practice 08/23/15 12/29/15 [address] [place] [address] [facility] PCP - General 12/30/15 10/15/16 [id number] [place] [address] None PCP - General 10/16/16 01/10/17 Allyson Pool PA PCP - General 04/27/17 [facility] [address] [place] [address] Guillermo Martinez MD MD Cardiology 11/15/17 [address] [facility] [address] [place] [address] documented as of this encounter
--- OUTSIDE RECORDS SUMMARY | 2022-02-21 10:34 | XMS_ITS | Encounter Summary ---
:1935 Author Organization [place] Address [address] [facility] [place] [address] Care Team Providers Name Role Phone Alicia Nice MD Primary Care Provider Unavailable Encounter Details Date Type Department Care Team Description 09/15/2012 Historic Results [facility] Heart Unknown, Doct or, Clinic [address] [place] [address] Social History Tobacco Use Types Packs/Day Years Used Date Smoking Tobacco: Never Assessed Sex Assigned at Date Recorded Not on file documented as of this encounter Plan of Treatment Not on filedocumented as of this encounter Procedures Procedure Name Priority Date/Time Associated Comments Diagnosis [facility] HISTORICAL Routine 09/15/2012 12:00 AM Resu lts for this RESULTS CDT procedure are i n the results section. documented in this encounter Results [facility] Historical Results (09/15/2012 12:00 AM CDT) P athologist Signature Sodium 138 136 - 145 [facility] mmol/L HISTORICAL RESULTS Potassium 3.9 3.5 - 5.1 [facility] mmol/L HISTORICAL RESULTS Chloride 105 98 - 107 [facility] mmol/L HISTORICAL RESULTS Carbon Dioxide 24 23 - 29 [facility] mmol/L HISTORICAL RESULTS Anion Gap Ratio 13 RATIO [facility] HISTORICAL RESULTS Urea Nitrogen 15 7 - 30 [facility] mg/dL HISTORICAL RESULTS Creatinine 1.0 0.7 - 1.3 [facility] mg/dL HISTORICAL RESULTS Calcium 8.7 8.5 - 10.5 [facility] mg/dL HISTORICAL RESULTS Glucose 93 70 - 105 [facility] mg/dL HISTORICAL RESULTS BUN/Creatinine 15.1 CALC [facility] Ratio HISTORICAL RESULTS eGFR Calculated 72 >60 mL/min [facility] (Black HISTORICAL Reference) RESULTS eGFR Calculated 60 >60 mL/min [facility] (Non Black HISTORICAL Reference) RESULTS Specimen (Source) Anatomical Location Collection Method / Collectio n Time Received Time / Laterality Volume 09/15/2012 09/15/2012 Doctor Unknown MD LABORATORY Performing Organization Address City/State/ZIP Code Phon e Number [facility] HISTORICAL RESULTS documented in this encounter Visit Diagnoses Not on filedocumented in this encounter Care Teams Marine Oil Terminal Superintendent Relationship Specialty Start Date End Date Alicia Nice MD PCP - General Family Practice 08/25/12 6 documented as of this encounter
--- OUTSIDE RECORDS SUMMARY | 2022-02-21 10:34 | XMS_ITS | Encounter Summary ---
:1935 Author Organization [place] Address formerly [facility] [place] [address] Care Team Providers Name Role Phone Alicia Nice MD Primary Care Provider Unavailable Les Fair MD Primary Care Provider [facility] Primary Care Provider [phone] Primary Care Provider Unavailable Allyson Pool Primary Care Provider Guillermo Martinez MD Unavailable Encounter Details Date Type Department Care Team Description 12/01/2008 Office Visit-[facility] Joy Fink, MORTGAGE OPERATIONS MANAGER GEOLOGICAL ENGINEER [address] [facility] [address] [facility] [address] [place] [address] [place] [id number] (Wo rk) Social History Tobacco Use Types Packs/Day Years Used Date Smoking Tobacco: Never Assessed Sex Assigned at Date Recorded Not on file documented as of this encounter Progress Notes Jesús Almanza, AIRCRAFT SERVICER - 12/13/2008 8:47 PM CDT Progress Note Created by: Jesús Almanza, N.P. DATE: 12/01/2008 WAQAR LUNDBERG DATE OF : 1935 AGE: [age] years old Referring Physician: ALICIA NICE Referring Clinic: [facility] CURRENT DIAGNOSES 1. - CAD, 414.00 2. Hypertension-Essential (Benign), 401.1 3. - Hyperlipidemia, 272.4 4. Status post-PTCA, V45.82 5. Obesity-(<LT>100 ), 278.00 6. MA-Acute Anterior, 410.11 7. Ventricular tachycardia, 427.1 ALLERGIES lipitor-myalgias Morphine, Vomiting MEDICATIONS (prior to changes made today) 1. Labetalol Hydrocloride 100 mg, 1 tab in the am and 1 1/2 tab in the pm 2. Crestor 20 Mg, 1 p.o. daily 3. Benazepril Hydrochloride 40 mg, 1 p.o. q.d. 4. Amlodipine 5 mg, 1 p.o. q.d. 5. Plavix 75 Mg, 1 p.o. q.d. 6. Dyazide 25 Mg-37.5 Mg, 1 p.o. q.d. 7. Nitroglycerin 0.4 Mg, Take as Directed 8. Aspir-Low 81 mg, 1 p.o. q.d. 9. Paxil 10 Mg, 1 p.o. q.d. CHIEF COMPLAINTS follow up nuke-know cad;discuss angiogr HISTORY OF PRESENT ILLNESS dictated to [facility] Hospital Line job ID [id number] PAST HISTORY Past Medical Illnesses: hyperlipidemia, hypertension, obesity, cellulitis, benign breast bx, lung nodule (followed by CT perpmd), varicose vein Past Cardiac Illnesses: coronary artery disease, S/P myocardial infarction-anterior, VF arrest with MA, NSVT immed after MA,Lat MA 1980, Ant MA (Vfib) 10-13 Cath-PTCA LAD(too tortuous for stent), 100%Lcx-OM, 50-60% RCA, PAC, PAT-non sust Infectious History: cellulitis Surgeries/Procedures - General: appy, mario, tonsillectomy, BHARAT, varicose vein strip Cardiology Procedures-Invasive: cardiac cath (left) November 2002, cardiac cath (left) October 2005 Cardiology Procedures-Noninvasive: holter monitor November 2002, myocardial perfusion imaging (Nuclear) December 2002, myocardial perfusion imaging (Nuclear) April 2003, treadmill cardiolite September 2005, adenosine cardiolite Dec 2008 Cardiac Cath Results: 10/16-Three vessel diease with EF of 35%,, 10/16- Three vessel disease with EF of 35%, no change in coronary lesions Left Ventricular Ejection Fraction: 10/16-EF 35% by heart Cath FAMILY HISTORY: Father - Age 66, CHF; Mother - Age 63, arterial stenosis; SOCIAL HISTORY Alcohol Use - does not use alcohol; Smoking - does not smoke; Diet - caffeine use-3-4 per day, low sodium (less than 2 grams) and low fat Diet; Lifestyle - and children; Exercise - no regular exercise; Seat Belt Use - always; Occupation - retired; Residence - lives with ; Place of - [place]; REVIEW OF SYSTEMS GENERAL weight loss, 2 lbs INTEGUMENTARY denies any change in hair or nails, rashes, or skin lesions. EYES wears eye glasses/contact lenses EARS, NOSE, THROAT, MOUTH denies any hearing loss, epistaxis, hoarseness or difficulty speaking. RESPIRATORY denies dyspnea, snoring, cough, wheezing or hemoptysis. CARDIOVASCULAR edema,severe varicosities, same ABDOMINAL denies ulcer disease, hematochezia or melena. MUSCULOSKELETAL denies any history of venous insufficiency, arthritic symptoms or back problems. NEUROLOGICAL denies any history of recurrent strokes, TIA, or seizure disorder. PSYCHIATRIC stress, depression, anxiety ENDOCRINE , hyperlipidemia HEMATOLOGICAL/IMMUNOLOGIC medication allergies PHYSICAL EXAMINATION VITAL SIGNS: Blood Pressure: 128/70 Sitting, Left arm, large cuff Pulse- 60.00/min. Weight- 246.00 lbs. Height- 65.00 Temperature- .00 CONSTITUTIONAL cooperative anxious and hyperventilating intermittently SKIN warm and dry to touch, no apparent skin lesions, or masses noted. HEAD normocephalic, atraumatic EYES Pupils equal and round, conjunctivae and lids unremarkable, sclera white, no xanthalasma ENT no pallor or cyanosis, dentition good [...] no bruits auscultated. EXTREMITIES & BACK chronic edema mild hemosiderin deposit due to varicose vein strip, trace edema, deformity of R ankledue to prior injury/vein stripping, cellulitis area-cleared now, extensive varicose veins legs NEUROLOGICAL no gross motor deficits noted, affect appropriate, oriented to time, person and place. MEDICATIONS UPDATED/STARTED TODAY: Labetalol Hydrocloride 100 mg, 1 tab in the am and 1 1/2 tab in the pm, DIRECTED Crestor 20 Mg, 1 p.o. daily, #30 MEDICATIONS REFILLED/STOPPED TODAY: Crestor 10 Mg 1 p.o. q.d. #90 Physician Order and Normodyne 100 Mg 2 tabs bid fill with labetolol #120 Dosage Decreased IMPRESSIONS/PLAN (Enter Doctor Dictated Impressions Here) TODAYS ORDERS 1. Left Heart Cath tomorrow please Jesús Almanza, N.P. documented in this encounter Plan of Treatment Not on filedocumented as of this encounter Visit Diagnoses Not on filedocumented in this encounter Care Teams Sales And Marketing Director Relationship Specialty Start Date End Date Alicia Nice MD PCP - General Family Practice 08/25/12 6 Les Fair MD PCP - General Family Practice 08/23/15 12/29/15 [address] [place] [address] [facility] PCP - General 12/30/15 10/15/16 [address] [place] [address] None PCP - General 10/16/16 01/10/17 Allyson Pool PA PCP - General 04/27/17 [facility] [address] [place] [address] Guillermo Martinez MD MD Cardiology 11/15/17 [address] [place] [phone] documented as of this encounter
--- OUTSIDE RECORDS SUMMARY | 2022-02-21 10:34 | XMS_ITS | Encounter Summary ---
:1935 Author Organization [place] Address [address] [place] [address] Care Team Providers Name Role Phone Unavailable Primary Care Provider Unavailable Encounter Details Date Type Department Care Team Description 12/02/2008 Admission [facility] Guillermo Kline, (Mental Health Counselor) [facility] Results [address] [place] [phone] Social History Tobacco Use Types Packs/Day Years Used Date Smoking Tobacco: Never Assessed Sex Assigned at Date Recorded Not on file documented as of this encounter Progress Notes Guillermo Kline - 12/08/2008 8:47 AM CDT FINAL HISTORY OF PRESENT ILLNESS: Fidelia Lundberg is a 73-year-old female with known coronary artery disease. She had her first AL 25 years ago. There is a very strong family history of heart disease present and she has lost many family members to this disease. She has a known chronically occluded circumflex and a 60% right coronary occlusion. In 2002, she suffered a ventricular fibrillation arrest and was found to have an LAD occlusion at that time which was angioplastied. This was a very tortuous vessel and therefore stent could not be deployed. Dr. Kline is her primary woolen mill utility worker and felt that if her LAD became an issue in the future, one of the newer generation cobalt stents may be appropriate or could certainly be attempted. She had some anterior ischemia show up on a nuclear test in 2005. An angiogram was performed and atthat point her LAD showed no more than 50% stenoses and did not appear to be flow-limiting. She returns to our clinic today after a phone call prompted because of her nuclear stress test done2 days ago. This shows abnormal perfusion with an extensive anterior apical anteroseptal nontransmural AL in the distribution of the LAD with significant moderate corina-infarction ischemia which was an increase from 2005. There is a second defect with extensive lateral wall infarction in the circumflexwith no reversible ischemia and a third defect which is a small basal inferior infarction in the distribution of the right coronary. The ejection fraction is well maintained at 57%. However, the LAD ischemia appears to be worse. There were no EKG changes consistent with ischemia. This was done using adenosine and she did experience some chest discomfort during the infusion, had chest pain and leg pain on 3 minutes and 30 seconds of a treadmill. There were occasional PVCs in recovery. Once this report returned, I have reviewed this with Dr. Kline and we feel an angiogram would be in her best interest and she will be scheduled for this tomorrow with Dr. Morse and/or Dr. Vega. This patient says over the past several months she has just generally not felt well with no specific symptoms. She denies shortness of breath or chest discomfort. She noticed some buttocks cramping when she walks but is quite honest with me that she has not been exercising regularly. She has weaned off of Paxil over this past year which did not go too well for her and I believe she is back on this now for anxiety. We have switched her metoprolol to labetalol over this past year for better blood pressure control which has been successful. She had a lipid profile drawn 2 days ago showing her LDL to be still in the mid 70s. Her HDL is 55,total cholesterol 150, triglycerides 98, ratio of 2.7, VLDL 20, ALT 21. This is on Crestor 10 mg a day. She has a history of myalgias on Lipitor. A basic metabolic panel drawn at our office shows a sodium of 141, potassium 4.1, BUN 11, creatinine 0.9, GFR is 66. She has no contrast dye allergies and no planned upcoming elective surgeries at any point in the future. No history of GI bleed or recent bleeding or anemia to my knowledge. PAST MEDICAL HISTORY: 1. Dyslipidemia. 2. Coronary artery disease with a ventricular fibrillation arrest in 2002. 3. Hypertension. 4. Obesity. 5. Cellulitis. 6. Benign breast biopsy. 7. Lung nodule followed by CT via primary care. 8. Varicose veins with stripping and chronic edema. 9. Appendectomy. 10. Cholecystectomy. 11. Tonsillectomy. 12. Total abdominal hysterectomy. 13. Cellulitis. 14. Nonsustained ventricular tachycardia after previous myocardial infarctions. 15. Lateral wall MIin 1980. 16. Nonsustained paroxysmal atrial tachycardia in the past. Previous cardiomyopathy with recovery of her ejection fraction by nuclear scan to 57% on her last LV gram in 2005 it was 35%. FAMILY HISTORY: Father at age 66 from heart failure. Mother at age 63 from coronary artery disease and multiple siblings have had coronary disease as well. SOCIAL HISTORY: She does not use alcohol, does not smoke, uses 3-4 caffeine per day. Attempts to follow a low sodium, low fat diet. She is and has children and grandchildren in the area. She is not routinely exercising, wears her seat belt and is retired and lives with her . REVIEW OF SYSTEMS: Significant for a couple pound weight loss. A full 10-point review of systems was performed and is positive for lower extremity edema which is chronic due to varicosities and vein stripping, some buttocks pain with walking, anxiety, denies chest pain, shortness of breath. MEDICATION ALLERGIES: Myalgias on Lipitor and vomiting from morphine. MEDICATIONS: 1. Labetalol 100 mg in the morning, 150 mg in the evening. 2. Crestor will be increased today to 20 mg a day. 3. Benazepril 40 mg a day. 4. Amlodipine 5 mg a day. 5. Plavix 75 mg daily. 6. Dyazide 25/37.5, 1 daily. 7. Nitrostat 0.4 as directed. 8. Aspirin 81 mg a day. 9. Paxil 10 mg a day. PHYSICAL EXAMINATION: VITAL SIGNS: Weight is 246 pounds, height is 65 inches. Blood pressure 128/70. Pulse is 60 and regular. CONSTITUTIONAL: Notes a cooperative, alert and oriented female who appears slightly anxious and occasionally hyperventilates and becomes tearful. Skin is warm and dry to touch with no lesions. HEENT: Normocephalic, atraumatic. Eyes reveal pupils to be equal, round, reactive to light. Conjunctivae and lids are unremarkable. No xanthelasma noted. ENT: Negative for pallor or cyanosis. Dentition in good repair. NECK: Shows 2+ carotids with no bruits audible. JVP is normal. There is no apparent thyromegaly. CHEST: Shows a normal respiratory excursion, clear lungs and normal percussion. HEART: S1 and S2. I do hear a soft 1/6 systolic murmur heard best at the left sternal border. ABDOMEN: Obese, soft, nontender, with no apparent hepatosplenomegaly, no bruits noted. Femoral pulses are 1-2+ and difficult to examine based on obesity. She has no bruits audible. She has 1+ posterior tibial pulses, which are difficult to feel because of edema and 2-3+ dorsalis pedis pulses bilaterally. EXTREMITIES AND BACK: No chronic edema with mild hemosiderin deposits due to varicose vein stripping in edema. She has some deformity of the right ankle due to some previous injuries. No active cellulitis is apparent. NEUROLOGIC:No motor defects. Affect is appropriate, slightly anxious. Lab data is outlined above. IMPRESSION AND PLAN: 1. Coronary artery disease: Fidelia Lundberg is a 73-year-old, well known to Dr. Kline and I who hassevere coronary artery disease as noted above. She now presents with no particular cardiac symptoms but a change in her nuclear stress test indicating progression in her LAD which has been known to be stenosis in the past. Based on these findings and her history, we will proceed with coronary angiogram tomorrow. I have reviewed the risks of this procedure, which include infection, bleeding, iatrogenic vessel wall trauma, heart attack, stroke, , contrast dye allergy, contrast dye nephropathy, and emergency bypass surgery. She accepts these risks and is willing to proceed. She understands the need to be n.p.o. after midnight and have transportation home. She knows she will stay overnight if an intervention is performed and go home the same day if not. She has been off of her Plavix for 4 days as she ran out of this drug. I have reviewed this with Dr. Kline and we will load her with Plavix 300 mg tonight and then 1 daily thereafter. She will continue on her aspirin and she will hold her diuretic prior to tomorrow's dye load as she will be n.p.o. I have scheduled her to follow up with me in2-3 weeks to review the findings of her coronary angiogram. We did discuss the option of drug-coatedand non-drug coated stents as it relates to the length of Plavix therapy that is required. I did tell her if her labs at the hospital tomorrow are abnormal, this could be postponed. She is accepting ofall of these risks. 2. Dyslipidemia. Given her extensive heart disease, I feel she would benefit with an LDL firmly under 70. Given this, I will increase her Crestor to 20 mg a day. She has had myalgias on Lipitor. I will watch her closely for any myalgias if this occurs. I will back down the Crestor to 10 mg, which she is tolerating now and likely add Zetia. 3. Hypertension, improved with the addition of labetalol; continue her current medications. 4. Buttocks pain which certainly could be claudication, however, she has full pulses. I will pursue this further at upcoming office visit. This certainly could be muscle discomfort from deconditioning as she is not exercising, which she is very up front about. 5. Anxiety being managed by Dr. Nice. She is back on her Paxil. 6. Discrepant ejection fractions between her nuclear test and her previous LV gram. I will evaluatethe need for an echocardiogram to sort this out depending on the result of her LV gram tomorrow provided that one was done. Greater than 50% of this 45-minute office visit today was spent counseling this patient on her upcoming procedure, her nuclear changes, her lipid goals. Electronically signed on 12/08/2008 08:47 by GUILLERMO KLINE MD As dictated by DORIAN TORRES NP MT: dm Name: FIDELIA LUNDBERG MRN: [id number] Account: [id number] : 1935 Admitted: [id number] Document: [id number] cc: Alicia Nice MD [facility] documented in this encounter Plan of Treatment Not on filedocumented as of this encounter Visit Diagnoses Not on filedocumented in this encounter
--- OUTSIDE RECORDS SUMMARY | 2022-02-21 10:34 | XMS_ITS | Encounter Summary ---
:1935 Author Organization [place] Address [address] [facility] [place] [address] Care Team Providers Name Role Phone Alicia Nice MD Primary Care Provider Unavailable Reason for Visit Reason Onset Date Comments Previsit 09/16/2014 09-21-14 Annual foll ow up, History CAD, Hypertension 09/16/2014 Hyperlipidemia 09/16/2014 Encounter Details Date Type Department Care Team Description 09/16/2014 PRE VISIT Guillermo Arriaza Previsit (0 09-21-14 Annual [facility] MD follow up, History CAD, [facility] [address] ); Hypertension; [address] [place] [address] Hyperlipidemia [address] [place] [phone] Social History Tobacco Use Types Packs/Day Years Used Date Smoking Tobacco: Unknown Alcohol Use Standard Drinks/Week Comments Yes 0 (1 standard drink = 0.6 oz pure alcoho l) rarely Sex Assigned at Date Recorded Not on file documented as of this encounter Plan of Treatment Not on filedocumented as of this encounter Visit Diagnoses Diagnosis Acute myocardial infarction of other ant erior wall, initial episode of care - Primary documented in this encounter Care Teams Route Service Manager Relationship Specialty Start Date End Date Alicia Nice MD PCP - General Family Practice 08/25/12 6 documented as of this encounter
--- OUTSIDE RECORDS SUMMARY | 2022-02-21 10:34 | XMS_ITS | Encounter Summary ---
:1935 Author Organization [place] Address [address] [place] [address] Care Team Providers Name Role Phone Unavailable Primary Care Provider Unavailable Encounter Details Date Type Department Care Team Description 09/06/2011 Hospital Laboratory [facility] Guillermo Martinez, [facility] Results [address] [place] [address] (Wo rk) Social History Tobacco Use Types Packs/Day Years Used Date Smoking Tobacco: Never Assessed Sex Assigned at Date Recorded Not on file documented as of this encounter Plan of Treatment Not on filedocumented as of this encounter Procedures Procedure Name Priority Date/Time Associated Diagnosis Comme nts LIPID PROFILE Routine 09/06/2011 9:55 AM Results for this CDT procedure are i n the results section. ALT Routine 09/06/2011 9:55 AM Results f or this CDT procedure are i n the results section. BASIC METABOLIC Routine 09/06/2011 9:55 AM Result s for this PANEL CDT procedure are i n the results section. documented in this encounter Results (ABNORMAL) Basic metabolic panel (09/06/2011 9:55 AM CDT) P athologist Signature Sodium 142 133 - 144 [place] mmol/L [facility] Potassium 4.2 3.4 - 5.3 [place] mmol/L [facility] Chloride 106 94 - 109 [place] mmol/L [facility] Carbon Dioxide 29 20 - 32 [place] mmol/L [facility] Anion Gap 7 6 - 17 [place] mmol/L [facility] Glucose 85 60 - 99 [place] mg/dL [facility] Urea Nitrogen 11 7 - 30 [place] mg/dL [facility] Creatinine 0.88 0.52 - [place] 1.04 mg/dL [facility] GFR Estimate 63 >60 [place] mL/min/1.7 [facility] m2 [facility] GFR Estimate If 76 >60 [place] Black mL/min/1.7 [facility] m2 [facility] Calcium 8.4 (L) 8.5 - 10.4 [place] mg/dL [facility] Specimen Anatomical Collection Method Collection Time Receive d Time (Source) Location / / Volume Laterality 09/06/2011 9:55 AM 2 CDT 10:24 AM CDT Guillermo Martinez MD LAB - BLOOD ORDERABLES Performing Organization Address City/State/ZIP Code Phon e Number [place] [address] [place], [place] [address] [facility] (ABNORMAL) Lipid Profile (09/06/2011 9:55 AM CDT) athologist Signature Cholesterol 135 0 - 200 [place] mg/dL [facility] Comment: LDL Cholesterol is the primary guide to therapy. The NCEP recommends further evaluation of: patients with cholesterol greater than 200 mg/dL if additional risk facto rs are present, cholesterol greater than 240 mg/dL, triglycerides greater than 1 50 mg/dL, or HDL less than 40 mg/dL. Triglycerides 71 0 - 150 mg/dL [facility] HDL Cholesterol 49 (L) 50 - 110 mg/dL [facility] LDL Cholesterol Calculated 72 0 - 129 mg/dL [facility] Comment: LDL Cholesterol is the primary guide to therapy: LDL-cholesterol goal in high risk patients is <100 mg/dL and in very high risk patients is <70 mg/dL. VLDL-Cholesterol 14 0 - 30 mg/dL [facility] Cholesterol/HDL Ratio 2.8 0.0 - 5.0 [facility] Specimen Anatomical Collection Method Collection Time Receive d Time (Source) Location / / Volume Laterality 09/06/2011 9:55 AM 2 CDT 10:24 AM CDT Guillermo Martinez MD LAB - BLOOD ORDERABLES Performing Organization Address City/State/ZIP Code [facility] susy Fink [place] [address] [place], [place] [address] [facility] ALT (09/06/2011 9:55 AM CDT) athologist Signature ALT 14 0 - 50 U/L [facility] Specimen Anatomical Collection Method Collection Time Receive d Time (Source) Location / / Volume Laterality 09/06/2011 9:55 AM 2 CDT 10:24 AM CDT Guillermo Martinez MD LAB - BLOOD ORDERABLES Performing Organization Address [facility] Code [facility] susy Fink [facility] [address] [place], [place] [address] [facility] documented in this encounter Visit Diagnoses Not on filedocumented in this encounter
--- OUTSIDE RECORDS SUMMARY | 2022-02-21 10:34 | XMS_ITS | Encounter Summary ---
:1935 Author Organization [place] Address [address] [facility] [place] [address] Care Team Providers Name Role Phone Alicia Nice MD Primary Care Provider Unavailable Les Fair MD Primary Care Provider [facility] Primary Care Provider [phone] None Primary Care Provider Unavailable Allyson Pool Primary Care Provider Guillermo Martinez MD Unavailable Encounter Details Date Type Department Care Team Description 12/23/2009 Office Visit-[facility] Heart Unknown, Eugene nascimento MD [address] [address] Social History Tobacco Use Types Packs/Day Years Used Date Smoking Tobacco: Never Assessed Sex Assigned at Date Recorded Not on file documented as of this encounter Progress Notes Unknown, MD Yovany - 01/06/2010 8:26 AM CDT Progress Note Created by: ANGELINA Torrez DATE: 12/23/2009 WAQAR LUNDBERG DATE OF : 1935 AGE: [age] years old Referring Physician: ALICIA NICE Referring Clinic: [facility] CURRENT DIAGNOSES 1. - CAD, 414.00 2. Hypertension-Essential (Benign), 401.1 3. - Hyperlipidemia, 272.4 4. Status post-PTCA, V45.82 5. Obesity-(<LT>100 ), 278.00 6. TN-Acute Anterior, 410.11 7. Ventricular tachycardia, 427.1 ALLERGIES Atorvastatin Calcium, Muscle aches Morphine Sulfate, Intolerance-vomiting MEDICATIONS (prior to changes made today) 1. Aspir-Low 81 mg Tablet, Delayed Release (E.C.), 1 p.o. daily 2. Crestor 20 Mg Tablet, 1 1/2 tab p.o. daily 3. Dyazide 37.5-25 Mg Capsule, 1 p.o. daily 4. Plavix 75 Mg Tablet, 1 p.o. daily 5. Amlodipine 5 Mg Tablet, 1 p.o. daily 6. Benazepril 40 Mg Tablet, 1 p.o. daily 7. Labetalol 100 Mg Tablet, 2 p.o. twice daily 8. Nitroglycerin 0.4 Mg Tablet, Sublingual, Take as Directed 9. Paxil 10 mg Tablet, 1/2 tab daily CHIEF COMPLAINTS f/u lipid panel HISTORY OF PRESENT ILLNESS Ms. Lundberg is a pleasant 74-year-old female here for a follow-up appointment. She routinely follows with Jesús Almanza and Dr. Guillermo Martinez. Her history includes coronary artery disease. She did have a nuclear stress test last fall where there was increased reversibility in the left anterior d escending distribution. She went back for a repeat angiogram that showed no progression of her disease. She had a fractional flow reserve of the left anterior descending of 0.9. Her left ventriculogramshowed an ejection fraction of 55%. She has had problems in the past with statin intolerances due to myalgias. She was on Crestor 20 mg.Her LDL was at 89 in August. When she had last seen Jesús at that time she was having some stomach issues. She was recommended to increase her Crestor to 40 mg, watch for myalgias and repeat a fasting lipid panel. She had not started the extra 20 mg of Crestor and had continued at 20 mg given her stomach issues. She was started on Prilosec but then was told that this had an interaction with Plavix and she stopped the Prilosec. She states, her stomach is actually doing fairly well at this point. She did have a fasting lipid panel today even though she remained on Crestor 20 mg. She did have some improvement of her LDL to 77, though her HDL declined significantly to 35. Triglycerides were 90, ALT was 21. She has denied any chest discomfort. She was having some problems with right lower extremity cellulitis, which has been a chronic issue for her. She denies any significant dyspnea. Please see below for remaining history and physical examination. PAST HISTORY Past Medical Illnesses: hyperlipidemia, hypertension, obesity, cellulitis, benign breast bx, lung nodule (followed by CT perpmd), varicose vein Past Cardiac Illnesses: coronary artery disease, S/P myocardial infarction-anterior, VF arrest with TN, NSVT immed after TN,Lat TN 1980, Ant TN (Vfib) 10-13 Cath-PTCA LAD(too tortuous for stent), [...] 2008 Nuclear Results: 11/18 Defect.-extensive anterior,apical+anteroseptal non-transmural TN in LAD wi/significant,mod.corina-infarct isch.Second defect.- extensive lateral TN in the CFX artery w/no reversible isch.Third defect-small basal inferior infarction in the RCA FAMILY HISTORY: Father - Age 66, CHF; Mother - Age 63, arterial stenosis; CARDIAC RISK FACTORS Tobacco Abuse: negative; Family History of Heart Disease: strong family history of heart disease; Hyperlipidemia: negative; Hypertension: positive; Diabetes Mellitus: negative; Prior History of Heart Disease: positive; Obesity:positive; Sedentary Life Style:negative; Age:positive; Menopausal:positive _ SOCIAL HISTORY Alcohol Use - drinks rarely; Smoking - does not smoke; Diet - caffeine use-3-4 per day, low sodium (less than 2 grams) and low fat Diet; Lifestyle - and children; Exercise - no regular exercise; Seat Belt Use - always; Occupation - retired; Residence - lives with ; Place of - [place]; REVIEW OF SYSTEMS GENERAL weight loss, 11 lb from 4-10 INTEGUMENTARY denies any change in hair or nails, rashes, or skin lesions. EYES wears eye glasses/contact lenses EARS, NOSE, THROAT, MOUTH denies any hearing loss, epistaxis, hoarseness or difficulty speaking. RESPIRATORY denies dyspnea, snoring, cough, wheezing or hemoptysis. CARDIOVASCULAR light headedness ABDOMINAL history of GERD MUSCULOSKELETAL neck shoulder pains NEUROLOGICAL denies any history of recurrent strokes, TIA, or seizure disorder. PSYCHIATRIC stress, depression, anxiety ENDOCRINE weight loss HEMATOLOGICAL/IMMUNOLOGIC medication allergies, seasonal allergies PHYSICAL EXAMINATION VITAL SIGNS: Blood Pressure: 128/76Sitting, Left arm, large cuff Pulse- 74.00/min. Weight- 227.00 lbs. Height- 65.00 Temperature- .00 CONSTITUTIONAL cooperative [...] appropriate, oriented to time, person and place. IMPRESSIONS/PLAN Ms. Lundberg is a pleasant 74-year-old female here for a followup with above history. 1. Hyperlipidemia. Her lipids are near to goal but still not less than 70. We did discuss options for her. She states, she feels uncomfortable going up to 40 mg but would be willing to try 30 mg. I will have her take Crestor 20 mg 1/2 tablets a day for the next 6 to 8 weeks and repeat her fasting lipid panel at that time. LDL goal is less than 70. I did discuss increased exercise and dietary modification to improve her HDL as well, with a goal of greater than 50. 2. Blood pressure control. Continuing the same regimen. 3. Coronary artery disease. Stable, without anginal symptoms presently. Thank you for the opportunity to see this pleasant patient in the office today. She was encouraged to contact us with any other questions or concerns. Of note, I did recommend Zantac as an alternative to the Prilosec and if that is ineffective to try Protonix. TODAYS ORDERS 1. Lipid profile/ALT 2 months 2. F/U with Jesús Almanza, LUANA, ANP 2 months ANGELINA Torrez documented in this encounter Plan of Treatment Not on filedocumented as of this encounter Visit Diagnoses Not on filedocumented in this encounter Care Teams Mold Closer Helper Relationship Specialty Start Date End Date Alicia Nice MD PCP - General Family Practice 08/25/12 6 Les Fair MD PCP - General Family Practice 08/23/15 12/29/15 [address] [place] [address] [facility] PCP - General 12/30/15 10/15/16 [address] [place] [address] None PCP - General 10/16/16 01/10/17 Allyson Pool PA PCP - General 04/27/17 [facility] [address] [place] [address] Guillermo Martinez MD MD Cardiology 11/15/17 [address] [place] [id number] documented as of this encounter
--- OUTSIDE RECORDS SUMMARY | 2022-02-21 10:34 | XMS_ITS | Encounter Summary ---
:1935 Author Organization [place] Address [address] [facility] [place] [address] Care Team Providers Name Role Phone Alicia Nice MD Primary Care Provider Unavailable Les Fair MD Primary Care Provider [facility] Primary Care Provider [phone] None Primary Care Provider Unavailable Allyson Pool Primary Care Provider Guillermo Martinez MD Unavailable Encounter Details Date Type Department Care Team Description 09/15/2012 Office Visit-[facility] Saw Martinez, Clinic Karina EVANGELIST[facility] [address] [facility] [address] [facility] [address] [place] [address] [place] [phone] (Wo rk) Social History Tobacco Use Types Packs/Day Years Used Date Smoking Tobacco: Never Assessed Sex Assigned at Date Recorded Not on file documented as of this encounter Progress Notes Guillermo Martinez MD - 09/17/2012 4:52 PM CDT Progress Note Created by: Guillermo Martinez M.D. DATE: 09/15/2012 WAQAR LUNDBERG DATE OF : 1935 AGE: [age] years old Referring Physician: ALICIA NICE Referring Clinic: [facility] CURRENT DIAGNOSES 1. - Hyperlipidemia, 272.4 2. Hypertension-Essential (Benign), 401.1 3. - CAD, 414.00 4. Ventricular tachycardia, 427.1 5. Status post-PTCA, V45.82 6. IA-Acute Anterior, 410.11 7. Obesity-(<LT>100 ), 278.00 ALLERGIES Atorvastatin Calcium, Muscle aches Morphine Sulfate, Intolerance-vomiting MEDICATIONS (prior to changes made today) 1. nitroglycerin 0.4 mg tablet, sublingual, Take as Directed 2. Paxil 10 mg Tablet, 1/2 tab daily 3. amlodipine 2.5 mg tablet, 1 p.o. daily 4. Aspir-Low 81 mg Tablet, Delayed Release (E.C.), 1 p.o. daily 5. benazepril 20 mg tablet, 1 p.o. daily 6. clopidogrel 75 mg tablet, 1 p.o. daily 7. Crestor 40 mg tablet, 1 p.o. daily 8. famotidine 20 mg Tablet, 1 p.o. twice daily prn 9. labetalol 100 mg tablet, 1 p.o. twice daily CHIEF COMPLAINTS HISTORY OF PRESENT ILLNESS Thank you for sending Waqar Lundberg back. As you recall, she had a heart attack 30 years ago before we ever met her, and then in 2002 she had an anterior infarct with V fib arrest, and a stent was placed to her LAD. Her obtuse marginal was totally occluded, which was no doubt her early heart attack. She actually had a follow up angiogram in 2005 and 2008 because of some symptoms but also because of astress test which turned out to be a false positive. Her anatomy was stable with moderate disease. We recommended medical therapy. She reports no anginal symptoms since that time. It is going to be difficult to know how to progress to follow her arteries. Her coronaries are heavily calcified so a CT coronary angiogram is not an ideal test, and we have already had false positive stress tests in the past. For now we will simply wait for symptoms. The next issue I have to discuss with her is a happy double-edged sword. She has been having dizzy spells and before she came in we did her blood work and her potassium level as quite low. It turns outthese two are related. She has lost more than 30 pounds compared to when we first met her. Most of the weight loss was this past year. She has been dieting. As a result her blood pressure is running low and in fact her standing blood pressure today was 88 systolic. No doubt that is the explanation forher dizziness and her fatigue. I have stopped the diuretic, replaced her with potassium, magnesium, and her potassium level normalized. For now I am going to keep her off her diuretic completely. We will have to watch for recurrence of her leg edema. She is going to check her blood pressure sitting and standing. If it is still running too low I would stop the amlodipine next. She is actually to be congratulated. This just proves that diet and exercise can obviate the need for some medications. Her current labs are as follows. While her potassium was 3.1, it was repeated today and today sodiumwas 138, potassium 3.9, BUN 15, creatinine 1.0, and glucose 93. Triglycerides were 127, HDL 51, LDL 68, total cholesterol 145, ALT 23. She is feeling well. She does note a little bit of tightness in her hips. I do not know if that is simply arthritis or muscle. I do not think it is related to the cholesterol pill since it is not present very often and she is on the same medicines as before, but we should keep that in the back of our mind. Lastly, we could consider doing an FRAN to make sure it is notclaudication, but it does not sound like that. PAST HISTORY Past Medical Illnesses: hyperlipidemia, hypertension, obesity, cellulitis, benign breast bx, lung nodule (followed by CT perpmd), varicose vein, GERD Past Cardiac Illnesses: coronary artery disease, S/P myocardial infarction-anterior, VF arrest with IA, NSVT immed after IA,Lat IA 1980, Ant IA (Vfib) 10-13 Cath-PTCA LAD(too tortuous for stent), [...] 2008 Nuclear Results: 11/18 Defect.-extensive anterior,apical+anteroseptal non-transmural IA in LAD wi/significant,mod.corina-infarct isch.Second defect.- extensive lateral IA in the CFX artery w/no reversible isch.Third [...] - does not smoke; Diet - low sodium (less than 2 grams) and lowfat Diet; Lifestyle - and children; Exercise - no regular exercise; Seat Belt Use - always; Occupation - retired; Residence - lives with ; Place of - [place]; REVIEW OF SYSTEMS GENERAL weight loss of approximately 15 lbs, low energy INTEGUMENTARY denies any change in hair or nails, rashes, or skin lesions. EYES wears eye glasses/contact lenses EARS, NOSE, THROAT, MOUTH denies any hearing loss, epistaxis, hoarseness or difficulty speaking., post nasal drip RESPIRATORY cough CARDIOVASCULAR negative for palpitations, chest pain, orthopnea, PND, peripheral edema, syncope or claudication. ABDOMINAL history of GERD and recently undergone scopes MUSCULOSKELETAL denies any history of arthritic symptoms or back problems. NEUROLOGICAL denies any history of recurrent strokes, TIA, or seizure disorder. PSYCHIATRIC anxiety, stress, 1 month ago pt loss son in law ENDOCRINE denies any history of thyroid disease or diabetes mellitus. HEMATOLOGICAL/IMMUNOLOGIC medication allergies, seasonal allergies I will have her come back in six months for a repeat evaluation including electrolytes just to see how she is doing. I am not anticipating a followup stress test because they have been false positive in the past but we will certainly watch her symptoms. If we are not sure about the hip pain being a sta tin, we could consider a statin holiday for diagnosis. It has been my pleasure seeing the patient. This was a 35 minute visit, all counseling. TODAYS ORDERS 1. BMP 3 days 2. F/U with Jesús Almanza, MSN, ANP 6 months 3. BMP 6 months Guillermo Martinez M.D. documented in this encounter Plan of Treatment Not on filedocumented as of this encounter Visit Diagnoses Not on filedocumented in this encounter Care Teams Dental Office Coordinator Relationship Specialty Start Date End Date Alicia Nice MD PCP - General Family Practice 08/25/12 6 Les Fair MD PCP - General Family Practice 08/23/15 12/29/15 [address] [place] [address] [facility] PCP - General 12/30/15 10/15/16 [address] [place] [address] None PCP - General 10/16/16 01/10/17 Allyson Pool PA PCP - General 04/27/17 [facility] [address] [place] [address] Guillermo Martinez MD MD Cardiology 11/15/17 [address] [facility] [address] [place] [phone] documented as of this encounter
--- OUTSIDE RECORDS SUMMARY | 2022-02-21 10:34 | XMS_ITS | Encounter Summary ---
:1935 Author Organization [place] Address [address] [facility] [place] [address] Care Team Providers Name Role Phone Alicia Nice MD Primary Care Provider Unavailable Les Fair MD Primary Care Provider [facility] Primary Care Provider [phone] None Primary Care Provider Unavailable Allyson Pool Primary Care Provider Guillermo Martinez MD Unavailable Encounter Details Date Type Department Care Team Description 09/06/2011 Office Visit-[facility] Heart Saw [facility], Clinic Karina EVANGELISTA [address] [facility] [address] [facility] [address] [place] [address] [place] [address] (Wo rk) Social History Tobacco Use Types Packs/Day Years Used Date Smoking Tobacco: Never Assessed Sex Assigned at Date Recorded Not on file documented as of this encounter Progress Notes Guillermo Martinez MD - 09/10/2011 5:14 PM CDT Progress Note Created by: Guillermo Martinez M.D. DATE: 09/06/2011 WAQAR LUNDBERG DATE OF : 1935 AGE: [age] years old Referring Physician: ALICIA NICE Referring Clinic: [facility] CURRENT DIAGNOSES 1. - Hyperlipidemia, 272.4 2. Hypertension-Essential (Benign), 401.1 3. - CAD, 414.00 4. Ventricular tachycardia, 427.1 5. Status post-PTCA, V45.82 6. NV-Acute Anterior, 410.11 7. Obesity-(<LT>100 ), 278.00 ALLERGIES Atorvastatin Calcium, Muscle aches Morphine Sulfate, Intolerance-vomiting MEDICATIONS (prior to changes made today) 1. nitroglycerin 0.4 mg Tablet, Sublingual, Take as Directed 2. Paxil 10 mg Tablet, 1/2 tab daily 3. Plavix 75 mg Tablet, 1 p.o. daily 4. amlodipine 2.5 mg Tablet, 1 p.o. daily 5. Aspir-Low 81 mg Tablet, Delayed Release (E.C.), 1 p.o. daily 6. benazepril 20 mg Tablet, 1 p.o. daily 7. Crestor 40 mg Tablet, 1 p.o. daily 8. Dyazide 37.5-25 mg Capsule, 1 p.o. daily 9. famotidine 20 mg Tablet, 1 p.o. twice daily prn 10. labetalol 100 mg Tablet, 1 p.o. twice daily CHIEF COMPLAINTS Review lab results HISTORY OF PRESENT ILLNESS: Waqar Lundberg is a delightful 75-year-old woman who we have cared for a number of years. She had a Vfib cardiac arrest from coronary disease. We have done angioplasty. Of note, her son just had an anterior NV with a Vfib cardiac arrest. We angioplastied him he is home now and it was a rough course but is slowly making progress and the patient states she is eternally grateful to us for saving both her life and her son. This patient has a known totally occluded left circumflex, which is chronic. Her LAD had angioplastybut it is so tortuous it is not clear that we can get a stent down it but we have done balloon angioplasty. Her right coronary has 50-60% narrowing. She has had no further ectopy and her ejection fraction is good. She had a nuclear stress test in the past that was false positive. It is going to be difficult to tract her arteries because they are so calcified I am not sure a CT coronary angiogram willwork. Therefore next year I am going to do a dobutamine stress echo to make sure there is no additional ischemia. We are trying to track the LAD and the right coronary artery. The circ as mentioned is closed and it might be that she would need bypass surgery. There has been no other significant change in her health history. She has not been exercising as much because she has been sitting doll in the hospital because of her son. She has, however, lost 2 pounds of weight, which is good. Her labs show that her cholesterol numbers are not quite as good as they were last year but again this is probably because she has been sitting in the hospital eating hospital food and not exercising. Her HDL is 49, LDL 72, triglycerides 71, total cholesterol 135, ALT 14, sodium 142, potassium 4.2, BUN 11, creatinine 0.88, glucose 85. PAST HISTORY Past Medical Illnesses: hyperlipidemia, hypertension, obesity, cellulitis, benign breast bx, lung nodule (followed by CT perpmd), varicose vein, GERD Past Cardiac Illnesses: coronary artery disease, S/P myocardial infarction-anterior, VF arrest with NV, NSVT immed after NV,Lat NV 1980, Ant NV (Vfib) 10-13 Cath-PTCA LAD(too tortuous for stent), [...] 2008 Nuclear Results: 11/18 Defect.-extensive anterior,apical+anteroseptal non-transmural NV in LAD wi/significant,mod.corina-infarct isch.Second defect.- extensive lateral NV in the CFX artery w/no reversible isch.Third [...] - lives with ; Place of - [place]; REVIEW OF SYSTEMS GENERAL feels well, no change in exercise tolerance., weight loss, 1.9 lbs since last visit INTEGUMENTARY denies any change in hair or nails, rashes, or skin lesions. EYES wears eye glasses/contact lenses EARS, NOSE, THROAT, MOUTH denies any hearing loss, epistaxis, hoarseness or difficulty speaking., post nasal drip RESPIRATORY cough CARDIOVASCULAR edema ABDOMINAL history of GERD and recently undergone scopes MUSCULOSKELETAL denies any history of arthritic symptoms or back problems. NEUROLOGICAL denies any history of recurrent strokes, TIA, or seizure disorder. PSYCHIATRIC anxiety, stress, due to sons illness ENDOCRINE denies any history of thyroid disease or diabetes mellitus. HEMATOLOGICAL/IMMUNOLOGIC medication allergies, seasonal allergies PHYSICAL EXAMINATION VITAL SIGNS: Blood Pressure: 108/62Sitting, Left arm, large cuff Pulse- .00/min. Weight- 231.10 lbs. Height- 63.25 BMI Measurement: 0 CONSTITUTIONAL cooperative anxious and hyperventilating intermittently SKIN [...] time, person and place. MEDICATIONS UPDATED/STARTED TODAY: amlodipine 2.5 mg Tablet, 1 p.o. daily, 90 benazepril 20 mg Tablet, 1 p.o. daily, #90 (Ninety) Crestor 40 mg Tablet, 1 p.o. daily, #90 Dyazide 37.5-25 mg Capsule, 1 p.o. daily, #90 famotidine 20 mg Tablet, 1 p.o. twice daily prn, #0 (Zero) labetalol 100 mg Tablet, 1 p.o. twice daily, #180 ([facility] [place] [address]) nitroglycerin 0.4 mg Tablet, Sublingual, Take as Directed, #25 Plavix 75 mg Tablet, 1 p.o. daily, #90 MEDICATIONS REFILLED/STOPPED TODAY: amlodipine 2.5 mg Tablet 1 p.o. daily 90 Refill, Nitroglycerin 0.4 Mg Tablet, Sublingual Take as Directed #25 Refill, Plavix 75 Mg Tablet 1 p.o. daily #90 Refill, benazepril 20 mg Tablet 1 p.o. daily #90 (Ninety) Refill, Crestor 40 Mg Tablet 1 p.o. daily #90 Refill, Dyazide 37.5-25 mg Capsule 1 p.o. daily #90 Refill and labetalol 100 mg Tablet 1 p.o. twice daily #180 ([facility] [place] [address]) Refill IMPRESSIONS/PLAN Her blood pressure is good in fact it may be too good. We decreased her benazepril from 40 down to 20 but she might have been accidentally taking 30 mg. She is on low dose amlodipine but it is not for blood pressure it is for antispasm and for angina and she has no angina. I told her she is welcome todrop the benazepril down to 20 if she was on 30 or drop it down to 10 if she was on 20 since her blood pressure is only about 100-110 and she occasionally has light-headedness when she stands up. Otherwise I will see her back in one year. This was a 30-minute visit greater than 50% counseling. TODAYS ORDERS 1. F/U with Guillermo Martinez MD 1 year 2. Dobutamine Stress Echo 1 year 3. Lipid profile/ALT 1 year 4. BMP 1 year Guillermo Martinez M.D. documented in this encounter Plan of Treatment Not on filedocumented as of this encounter Visit Diagnoses Not on filedocumented in this encounter Care Teams Light Fixture Servicer Relationship Specialty Start Date End Date Alicia Nice MD PCP - General Family Practice 08/25/12 6 Les Fair MD PCP - General Family Practice 08/23/15 12/29/15 [id number] [place] [address] [facility] PCP - General 12/30/15 10/15/16 [address] [place] [address] None PCP - General 10/16/16 01/10/17 Allyson Pool PA PCP - General 04/27/17 [facility] [address] [place] [address] Guillermo Martinez MD MD Cardiology 11/15/17 [address] [place] [phone] documented as of this encounter
--- OUTSIDE RECORDS SUMMARY | 2022-02-21 10:34 | XMS_ITS | Encounter Summary ---
:1935 Author Organization [place] Address [address] [facility] [place] [address] Care Team Providers Name Role Phone Alicia Nice MD Primary Care Provider Unavailable Les Fair MD Primary Care Provider Encounter Details Date Type Department Care Team Description 11/29/2008 Historic Results [facility] Heart Unknown, [facility] [address] [place] [address] Social History Tobacco Use Types Packs/Day Years Used Date Smoking Tobacco: Never Assessed Sex Assigned at Date Recorded Not on file documented as of this encounter Plan of Treatment Not on filedocumented as of this encounter Procedures Procedure Name Priority Date/Time Associated Diagnosis Comme nts NUCLEAR CARDIAC - HIM 11/29/2008 12:00 AM CDT SCAN - ARCHIVE documented in this encounter Results NUCLEAR CARDIAC - HIM SCAN - ARCHIVE (11/29/2008 12:00 AM CDT) Anatomical Region Laterality Modality Other Specimen (Source) Anatomical Location Collection Method / Collectio n Time Received Time / Laterality Volume 11/29/2008 Narrative This result has an attachment that is no t available. Provider Scan IMG NM ORDERABLES documented in this encounter Visit Diagnoses Not on filedocumented in this encounter Care Teams Manager Trainee Relationship Specialty Start Date End Date Alicia Nice MD PCP - General Family Practice 08/25/12 6 Les Fair MD PCP - General Family Practice 08/23/15 12/29/15 [address] [place] [address] documented as of this encounter
--- OUTSIDE RECORDS SUMMARY | 2022-02-21 10:34 | XMS_ITS | Encounter Summary ---
:1935 Author Organization [place] Address [address] [facility] [place] [address] Care Team Providers Name Role Phone Alicia Nice MD Primary Care Provider Unavailable Encounter Details Date Type Department Care Team Description 09/10/2013 Hospital Laboratory [facility] Results Hattie M, [employer]PER[employer] CLINIC LICENSED PRACTICAL NURSE [address] [place] [address] (Wo rk) Social History Tobacco Use Types Packs/Day Years Used Date Smoking Tobacco: Never Assessed Sex Assigned at Date Recorded Not on file documented as of this encounter Plan of Treatment Not on filedocumented as of this encounter Procedures Procedure Name Priority Date/Time Associated Diagnosis Comme nts LIPID PROFILE STAT 09/10/2013 8:07 AM Results for this CDT procedure are i n the results section. ALT STAT 09/10/2013 8:07 AM Results f or this CDT procedure are i n the results section. BASIC METABOLIC STAT 09/10/2013 8:07 AM Result s for this PANEL CDT procedure are i n the results section. documented in this encounter Results (ABNORMAL) Basic metabolic panel (09/10/2013 8:07 AM CDT) P athologist Signature Sodium 145 (H) 133 - 144 TROUT mmol/L [facility] Potassium 4.0 3.4 - 5.3 TROUT mmol/L [facility] Chloride 107 94 - 109 TROUT mmol/L [facility] Carbon Dioxide 29 20 - 32 TROUT mmol/L [facility] Anion Gap 9 6 - 17 TROUT mmol/L [facility] Glucose 90 60 - 99 TROUT mg/dL [facility] Urea Nitrogen 13 7 - 30 TROUT mg/dL [facility] Creatinine 0.84 0.52 - TROUT 1.04 mg/dL [facility] GFR Estimate 66 >60 TROUT mL/min/1.[address] LAB GFR Estimate If 80 >60 TROUT Black mL/min/1.[address] LAB Calcium 8.8 8.5 - 10.4 TROUT mg/dL [facility] Specimen Anatomical Collection Method Collection Time Receive d Time (Source) Location / / Volume Laterality 09/10/2013 8:07 AM 4 8:24 CDT AM CDT Hattie Almanza APRN CLINIC LICENSED PRACTICAL NURSE LAB - BLOOD ORDERABLES Performing Organization Address City/State/ZIP Code Phon e Number [place] [address], [place] [address] [facility] (ABNORMAL) Lipid Profile (09/10/2013 8:07 AM CDT) P athologist Signature Cholesterol 140 <200 mg/dL [facility] Comment: LDL Cholesterol is the primary guide to therapy. The NCEP recommends further evaluation of: patients with cholesterol greater than 200 mg/dL if additional risk facto rs are present, cholesterol greater than 240 mg/dL, triglycerides greater than 1 50 mg/dL, or HDL less than 40 mg/dL. Triglycerides 94 0 - 150 mg/dL [facility] HDL Cholesterol 45 (L) >50 mg/dL [facility] LDL Cholesterol Calculated 76 0 - 129 mg/dL [facility] Comment: LDL Cholesterol is the primary guide to therapy: LDL-cholesterol goal in high risk patients is <100 mg/dL and in very high risk patients is <70 mg/dL. VLDL-Cholesterol 19 0 - 30 mg/dL [facility] Cholesterol/HDL Ratio 3.1 0.0 - 5.0 [facility] Specimen Anatomical Collection Method Collection Time Receive d Time (Source) Location / / Volume Laterality 09/10/2013 8:07 AM 4 8:24 CDT AM CDT Hattie Almanza APRN CLINIC LICENSED PRACTICAL NURSE LAB - BLOOD ORDERABLES Performing Organization Address City/State/ZIP Code Phon susy Fink [facility] [address] [place], [place] [address] [facility] ALT (09/10/2013 8:07 AM CDT) P athologist Signature ALT 21 0 - 50 U/L [facility] Specimen Anatomical Collection Method Collection Time Receive d Time (Source) Location / / Volume Laterality 09/10/2013 8:07 AM 4 8:24 CDT AM CDT Hattie Almanza APRN CLINIC LICENSED PRACTICAL NURSE LAB - BLOOD ORDERABLES Performing Organization Address City/[facility]/ZIP Code Phon susy Fink [place] [address] [place], [place] [address] [facility] documented in this encounter Visit Diagnoses Not on filedocumented in this encounter Care Teams Loft Patternmaker Relationship Specialty Start Date End Date Alicia Nice MD PCP - General Family Practice 08/25/12 6 documented as of this encounter
--- OUTSIDE RECORDS SUMMARY | 2022-02-21 10:34 | XMS_ITS | Encounter Summary ---
:1935 Author Organization [place] Address [address] [facility] [place] [address] Care Team Providers Name Role Phone Unavailable Primary Care Provider Unavailable Encounter Details Date Type Department Care Team Description 12/02/2008 Historic Results [facility]3] Guillermo Martinez, [address] [place] [address] [address] [facility] [phone] [address] [place] [address] (Wo rk) Social History Tobacco Use Types Packs/Day Years Used Date Smoking Tobacco: Never Assessed Sex Assigned at Date Recorded Not on file documented as of this encounter Plan of Treatment Not on filedocumented as of this encounter Procedures Procedure Name Priority Date/Time Associated Comments Diagnosis ACTIVATED CLOTTING TIME Routine 12/02/2008 12:08 Results for this POCT PM CDT procedure are i n the results section. INR Routine 12/02/2008 8:07 AM Results f or this CDT procedure are i n the results section. PLATELET COUNT Routine 12/02/2008 8:07 AM Results for this CDT procedure are i n the results section. PARTIAL THROMBOPLASTIN Routine 12/02/2008 8:07 AM Results for this TIME CDT procedure are i n the results section. HEMOGLOBIN Routine 12/02/2008 8:07 AM Results f or this CDT procedure are i n the results section. documented in this encounter Results (ABNORMAL) Activated clotting time POCT (12/02/2008 12:08 PM CDT) P athologist Signature Activated Clot 168 (H) 105 - 167 MISYS Time sec Specimen Anatomical Collection Method Collection Time Receive d Time (Source) Location / / Volume Laterality 12/02/2008 12:08 12/06/2008 PM CDT 11:47 AM CDT Guillermo Martinez MD LAB - ENTER/EDIT POCT Performing Organization Address [facility] Phon e Number MISYS Hemoglobin (12/02/2008 8:07 AM CDT) P athologist Signature Hemoglobin 13.4 11.7 - 15.7 MISYS g/dL Specimen Anatomical Collection Method Collection Time Receive d Time (Source) Location / / Volume Laterality 12/02/2008 8:07 AM 9 8:13 CDT AM CDT Guillermo Martinez MD LAB - BLOOD ORDERABLES Performing Organization Address [facility] Phon e Number MISYS INR (12/02/2008 8:07 AM CDT) P athologist Signature INR 1.00 0.86 - 1.14 MISYS Specimen Anatomical Collection Method Collection Time Receive d Time (Source) Location / / Volume Laterality 12/02/2008 8:07 AM 9 8:13 CDT AM CDT Guillermo Martinez MD LAB - BLOOD ORDERABLES Performing Organization Address [facility] Phon e Number MISYS Platelet count (12/02/2008 8:07 AM CDT) P athologist Signature Platelet Count 179 150 - 450 MIS[place] 10e9/L Specimen Anatomical Collection Method Collection Time Receive d Time (Source) Location / / Volume Laterality 12/02/2008 8:07 AM 9 8:13 CDT AM CDT Guillermo Martinez MD LAB - BLOOD ORDERABLES Performing Organization Address [facility] Phon e Number MISYS Partial thromboplastin time (12/02/2008 8:07 AM CDT) P athologist Signature PTT 27 22 - 37 sec MISYS Specimen Anatomical Collection Method Collection Time Receive d Time (Source) Location / / Volume Laterality 12/02/2008 8:07 AM 9 8:13 CDT AM CDT Guillermo Martinez MD LAB - BLOOD ORDERABLES Performing Organization Address City/State/ZIP Code Phon e Number MISYS documented in this encounter Visit Diagnoses Not on filedocumented in this encounter
--- OUTSIDE RECORDS SUMMARY | 2022-02-21 10:34 | XMS_ITS | Encounter Summary ---
:1935 Author Organization [place] Address [address] [facility] [place] [address] Care Team Providers Name Role Phone Alicia Nice MD Primary Care Provider Unavailable Les Fair MD Primary Care Provider [facility] Primary Care Provider [phone] None Primary Care Provider Unavailable Allyson Pool Primary Care Provider Guillermo Martinez MD Unavailable Encounter Details Date Type Department Care Team Description 08/17/2010 Office Visit-[facility] Karina EVANGELISTA [address] [place] [address] [place] [phone] (Wo rk) Social History Tobacco Use Types Packs/Day Years Used Date Smoking Tobacco: Never Assessed Sex Assigned at Date Recorded Not on file documented as of this encounter Progress Notes Guillermo Martinez MD - 04/25/2011 12:02 PM CST Progress Note Created by: Guillermo Martinez M.D. DATE: 08/17/2010 WAQAR LUNDBERG DATE OF : 1935 AGE: [age] years old Referring Physician: ALICIA NICE Referring Clinic: [facility] CURRENT DIAGNOSES 1. - Hyperlipidemia, 272.4 2. Hypertension-Essential (Benign), 401.1 3. - CAD, 414.00 4. Ventricular tachycardia, 427.1 5. Status post-PTCA, V45.82 6. WA-Acute Anterior, 410.11 7. Obesity-(<LT>100 ), 278.00 ALLERGIES Atorvastatin Calcium, Muscle aches Morphine Sulfate, Intolerance-vomiting MEDICATIONS (prior to changes made today) 1. Benazepril 20 Mg Tablet, 1 p.o. daily 2. Labetalol 100 Mg Tablet, 1 p.o. twice daily 3. Crestor 40 Mg Tablet, 1 p.o. daily 4. Dyazide 37.5-25 Mg Capsule, 1 p.o. daily 5. Plavix 75 Mg Tablet, 1 p.o. daily 6. amlodipine 2.5 mg Tablet, 1 p.o. daily 7. Aspir-Low 81 mg Tablet, Delayed Release (E.C.), 1 p.o. daily 8. Nitroglycerin 0.4 Mg Tablet, Sublingual, Take as Directed 9. Paxil 10 mg Tablet, 1/2 tab daily CHIEF COMPLAINTS HISTORY OF PRESENT ILLNESS Waqar Lundberg returns for followup. She is a delightful 74-year-old woman. She has known coronary disease, with somewhat complex coronary anatomy. She had a previous myocardial infarction with a ventricular fibrillation cardiac arrest. 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 Her left anterior descending is very tortuous to the point that weare not sure we could ever stent it. We did do angioplasty and it had a 50% narrowing. A little overa year ago, she had a stress test that suggested ischemia in the anterior wall; however, a heart catheterization was performed and the anatomy was stable. The patient reports no further chest pain since that time. Her ejection fraction is normal. Ms. Lundberg has lost some weight and with this her blood pressure has gotten lower and lower. I am going to go ahead and cut her blood pressure pills down yet again. She has minimal lightheadedness whenshe stands up. Similarly as she has lost weight and we changed her cholesterol pills, her cholesterol numbers came back the best ever. Triglycerides 103, total cholesterol 136, HDL 58, LDL 57, ALT 25, sodium 141, potassium 3.9, BUN 18, creatinine 1.02, glucose was 97. Her original cholesterol numbers in 2002 were LDL 115, HDL 43, triglyceride 131. PAST HISTORY Past Medical Illnesses: hyperlipidemia, hypertension, obesity, cellulitis, benign breast bx, lung nodule (followed by CT perpmd), varicose vein, GERD Past Cardiac Illnesses: coronary artery disease, S/P myocardial infarction-anterior, VF arrest with WA, NSVT immed after WA,Lat WA 1980, Ant WA (Vfib) 10-13 Cath-PTCA LAD(too tortuous for stent), [...] 2008 Nuclear Results: 11/18 Defect.-extensive anterior,apical+anteroseptal non-transmural WA in LAD wi/significant,mod.croina-infarct isch.Second defect.- extensive lateral WA in the CFX artery w/no reversible isch.Third [...] - lives with ; Place of - [place]; REVIEW OF SYSTEMS GENERAL appetite good, energy level fair, feels well, no change in exercise tolerance. INTEGUMENTARY denies any change in hair or nails, rashes, or skin lesions. EYES wears eye glasses/contact lenses EARS, NOSE, THROAT, MOUTH denies any hearing loss, epistaxis, hoarseness or difficulty speaking., post nasal drip RESPIRATORY , , denies dyspnea, snoring, cough, wheezing or hemoptysis. CARDIOVASCULAR light headedness, edema of the ankles ABDOMINAL history of GERD and recently undergone scopes MUSCULOSKELETAL neck shoulder pains NEUROLOGICAL denies any history of recurrent strokes, TIA, or seizure disorder. PSYCHIATRIC stress, depression, anxiety ENDOCRINE weight loss HEMATOLOGICAL/IMMUNOLOGIC medication allergies, seasonal allergies PHYSICAL EXAMINATION VITAL SIGNS: Blood Pressure: 112/66Sitting, Left arm, large cuff Pulse- 88.00/min. Weight- 233.00 lbs. Height- 63.25 Temperature- .00 CONSTITUTIONAL cooperative anxious and hyperventilating [...] 2.5 mg Tablet, 1 p.o. daily, 90 Benazepril 20 Mg Tablet, 1 p.o. daily, #90 (Ninety) Crestor 40 Mg Tablet, 1 p.o. daily, #90 Dyazide 37.5-25 Mg Capsule, 1 p.o. daily, #90 Labetalol 100 Mg Tablet, 1 p.o. twice daily, 180 Plavix 75 Mg Tablet, 1 p.o. daily, #90 MEDICATIONS REFILLED/STOPPED TODAY: Amlodipine 5 Mg Tablet 1/2 tab daily #-1 Refill, Benazepril 40 Mg Tablet 1 p.o. daily #-1 Refill, benazepril 20 mg Tablet 1 p.o. daily #90 (Ninety) Refill, Labetalol 100 Mg Tablet 1 p.o. twice daily #-1 Refill, Benazepril 40 Mg Tablet 1/2 p.o. daily #90 Refill, Amlodipine 5 Mg Tablet 1 p.o. daily #90 Refill, Crestor 40 mg Tablet 1 p.o. daily #90 Refill, Dyazide 37.5-25 Mg Capsule 1 p.o. daily #90 Refill and Plavix 75 Mg Tablet 1 p.o. daily #90 Refill IMPRESSIONS/PLAN At this junction I am going to decrease the benazepril from 40 down to 20. If she continues to lose weight, we may be able to slowly decrease her medications further. I will have her integrated campaign manager do that since I do not need to see her for another year. She will check her blood pressure to make sure that it does not jump up now that she is on benazepril 20 instead of 40. She reports feeling well and I amvery happy with how she is doing. With regarding to following up on her coronary disease, it is going to be difficult since she had a false-positive stress test. At this point, I do not think she needs another stress test for at least two years anyway. We may do it as a stress echo next time or a CT coronary angiogram since the nuclear test was false-positive. This was a 30-minute visit, greater than 50% counseling. TODAYS ORDERS 1. F/U with Guillermo Martinez MD 1 year 2. Lipid profile/ALT 1 year 3. BMP 1 year Guillermo Martinez M.D. documented in this encounter Plan of Treatment Not on filedocumented as of this encounter Visit Diagnoses Not on filedocumented in this encounter Care Teams Field Marketing Manager Relationship Specialty Start Date End Date Alicia Nice MD PCP - General Family Practice 08/25/12 6 Les Fair MD PCP - General Family Practice 08/23/15 12/29/15 [address] [place] [address] [facility] PCP - General 12/30/15 10/15/16 [address] [place], [place] [id number] None PCP - General 10/16/16 01/10/17 Allyson Pool PA PCP - General 04/27/17 [facility] [address] [place] [id number] Guillermo Martinez MD MD Cardiology 11/15/17 [address] [place] [phone] documented as of this encounter
--- OUTSIDE RECORDS SUMMARY | 2022-02-21 10:34 | XMS_ITS | Encounter Summary ---
:1935 Author Organization [place] Address Counts include 234 beds at the [facility] [place] [address] Care Team Providers Name Role Phone Unavailable Primary Care Provider Unavailable Encounter Details Date Type Department Care Team Description 12/02/2008 Historic Results INTERFACED REPORT Interface, Ansley bahena MD Social History Tobacco Use Types Packs/Day Years Used Date Smoking Tobacco: Never Assessed Sex Assigned at Date Recorded Not on file documented as of this encounter Plan of Treatment Not on filedocumented as of this encounter Procedures Procedure Name Priority Date/Time Associated Diagnosis Comme nts EKG 12 LEAD Routine 12/02/2008 8:48 AM Results f or this CDT procedure are i n the results section . documented in this encounter Results EKG 12 LEAD (12/02/2008 8:48 AM CDT) Component Value Ref Range Test Analysis Performed Pathologis t Method Time At Signature Ventricular Rate 57 BPM RADIOLOGY RESULTS Atrial Rate 57 BPM RADIOLOGY RESULTS VA Interval 212 ms RADIOLOGY RESULTS QRS Duration 106 ms RADIOLOGY RESULTS QT 422 ms RADIOLOGY RESULTS QTc 410 ms RADIOLOGY RESULTS P [place] 3 degrees RADIOLOGY RESULTS R AXIS -10 degrees RADIOLOGY RESULTS T [place] 29 degrees RADIOLOGY RESULTS Interpretation Sinus bradycardia with 1st degree A-V block RADIOLOGY ECG Possible Anterior infarct (cited on or before 24-OCT-2005) RESULTS Abnormal ECG When compared with ECG of 24-OCT-2005 07:20, No significant change was found Unconfirmed report - interpretation of this ECG is co Visualnestuter generated - see medical record for final interpretati on Specimen Anatomical Collection Method Collection Time Receive d Time (Source) Location / / Volume Laterality 12/02/2008 8:48 AM 9 CDT 12:44 PM CDT Transcripton Interface ECG ORDERABLES Performing Organization Address City/State/ZIP Code Phon e Number RADIOLOGY RESULTS documented in this encounter Visit Diagnoses Not on filedocumented in this encounter
--- OUTSIDE RECORDS SUMMARY | 2022-02-21 10:34 | XMS_ITS | Encounter Summary ---
:1935 Author Organization [place] Address [address] [facility] [facility] [place] [address] Care Team Providers Name Role Phone Alicia Nice MD Primary Care Provider Unavailable Encounter Details Date Type Department Care Team Description 03/13/2013 Hospital Laboratory [facility] Results Hattie M, MANAGER CONSUMER INSIGHTS [employer] SPECIALIST [address] [place] [id number] (Wo rk) Social History Tobacco Use Types Packs/Day Years Used Date Smoking Tobacco: Never Assessed Sex Assigned at Date Recorded Not on file documented as of this encounter Plan of Treatment Not on filedocumented as of this encounter Procedures Procedure Name Priority Date/Time Associated Diagnosis Comme nts BASIC METABOLIC Routine 03/13/2013 10:16 AM Resul ts for this PANEL CDT procedure are i n the results section. documented in this encounter Results Basic metabolic panel (03/13/2013 10:16 AM CDT) P athologist Signature Sodium 142 133 - 144 [place] mmol/L [facility] Potassium 4.2 3.4 - 5.3 [place] mmol/L [facility] Chloride 104 94 - 109 [place] mmol/L [facility] Carbon Dioxide 31 20 - 32 [place] mmol/L [facility] Anion Gap 6 6 - 17 [place] mmol/L [facility] Glucose 90 60 - 99 [place] mg/dL [facility] Urea Nitrogen 12 7 - 30 [place] mg/dL [facility] Creatinine 0.90 0.52 - [facility] 1.04 mg/dL [facility] GFR Estimate 61 >60 [place] mL/min/1.[address] LAB GFR Estimate If 74 >60 [place] Black mL/min/1.[address] LAB Calcium 8.8 8.5 - 10.4 [place] mg/dL [facility] Specimen Anatomical Collection Method Collection Time Receive d Time (Source) Location / / Volume Laterality 03/13/2013 10:16 03/13/2013 AM CDT 10:39 AM CDT Hattie Almanza APRN [employer] [facility] [facility] LAB - BLOOD ORDERABLES Performing Organization Address City/State/ZIP Code Phon e Number [facility] [address] [place], [place] [address] [facility] documented in this encounter Visit Diagnoses Not on filedocumented in this encounter Care Teams Corporate Associate Attorney Relationship Specialty Start Date End Date Alicia Nice MD PCP - General Family Practice 08/25/12 6 documented as of this encounter
--- OUTSIDE RECORDS SUMMARY | 2022-02-21 10:34 | XMS_ITS | Encounter Summary ---
:1935 Author Organization [place] Address [address] [place] [address] Care Team Providers Name Role Phone Alicia Nice MD Primary Care Provider Unavailable Les Fair MD Primary Care Provider Encounter Details Date Type Department Care Team Description 12/02/2008 Historic Results [facility] Heart Unknown, [facility] [address] [place] [address] Social History Tobacco Use Types Packs/Day Years Used Date Smoking Tobacco: Never Assessed Sex Assigned at Date Recorded Not on file documented as of this encounter Plan of Treatment Not on filedocumented as of this encounter Procedures Procedure Name Priority Date/Time Associated Diagnosis Comme nts CARDIAC CATH - HIM SCAN 12/02/2008 12:00 AM CDT - ARCHIVE documented in this encounter Results CARDIAC CATH - HIM SCAN - ARCHIVE (12/02/2008 12:00 AM CDT) Anatomical Region Laterality Modality Other Specimen (Source) Anatomical Location Collection Method / Collectio n Time Received Time / Laterality Volume 12/02/2008 Narrative This result has an attachment that is no t available. Provider Scan CV ELECTROPHYSIOLOGY ORDERAB LES documented in this encounter Visit Diagnoses Not on filedocumented in this encounter Care Teams Financial Economist Relationship Specialty Start Date End Date Alicia Nice MD PCP - General Family Practice 08/25/12 6 Les Fair MD PCP - General Family Practice 08/23/15 12/29/15 [address] [place] [address] documented as of this encounter
--- OUTSIDE RECORDS SUMMARY | 2022-02-21 10:34 | XMS_ITS | Encounter Summary ---
:1935 Author Organization [place] Address [address] [facility] [place] [address] Care Team Providers Name Role Phone Alicia Nice MD Primary Care Provider Unavailable Donell Fair MD Primary Care Provider [facility] Primary Care Provider None Primary Care Provider Unavailable Allyson Pool Primary Care Provider Guillermo Martinez MD Unavailable Encounter Details Date Type Department Care Team Description 09/10/2013 Office Visit-[facility] Karina EVANGELISTA [address] [facility] [address] [facility] [address] [place] [phone] [place] [phone] (Wo rk) Social History Tobacco Use Types Packs/Day Years Used Date Smoking Tobacco: Never Assessed Sex Assigned at Date Recorded Not on file documented as of this encounter Progress Notes Guillermo Martinez MD - 09/11/2013 9:54 AM CDT Progress Note Created by: Guillermo Martinez M.D. DATE: 09/10/2013 WAQAR LUNDBERG DATE OF : 1935 AGE: [age] years old Referring Physician: DONELL FAIR Referring Clinic: [facility] CURRENT DIAGNOSES 1. - Hyperlipidemia, 272.4 2. [...] HISTORY OF PRESENT ILLNESS Thank you for referring back Waqar Lundberg. As you know, she is a delightful 77-year-old woman. In retrospect when she was age 44 she had a heart attack that was unrecognized. We met her 11 years ago when she had an anterior infarct with a Vfib cardiac arrest. Heart cath at that time showed a chronically occluded circumflex marginal which was no doubt her heart attack at age 44. Her LAD was 99% obstructed. It was heavily calcified and very tortuously. We could not get a stent down the vessel so instead we did a balloon angioplasty. It is possible with todays technology we could get a stent in but as you probably remember she had two false alarms in the last 11 years. Each heart cath showed that the LAD was 50 to no more than 60% narrowed suggesting that the balloon angioplasty alone was adequate.She has 50% right coronary artery disease and as I mentioned the circumflex marginal was occluded. She reports no chest pain problems at all. She is 11 years out from her original events that we met her with. She is still on Plavix. To e honest, I do not know that I have a lot of data suggesting it is doing a lot 11 years later but because of residual diffuse disease we have elected to keep her on long-termmedicine and she has done well. Interestingly her son somewhat recently also had a myocardial infarction with a Vfib cardiac arrest. He is making a reasonably good neurologic recovery. She had no neurologic deficits and you probably remember her family history is rife with early coronary artery disease. Her cholesterol numbers were checked today. They are not quite at goal but they are pretty close andsamuel is on maximum dose Crestor and her blood pressure numbers are also good. Her labs today include the following: Sodium 145, potassium 4.0, BUN 13, creatinine 0.84, glucose 90, triglycerides 94, total cholesterol 140, HDL 45 with a goal of 50 or higher, LDL 76 with a goal of 70 or less, ALT 21. Overall I think these numbers are close enough to goal and the only other option would be to add something like Zetia which I do not think is necessary. She stood the test of time over the last 11 years. Again we talked about continuing Plavix and unless there is a cost issue or bleeding issue or other problem she wants to stay on it long-term. She certainly appreciates given her family history and her own personal history of staying on prophylactic medicine. PAST HISTORY Past Medical Illnesses: hyperlipidemia, hypertension, [...] 11/18 Defect.-extensive anterior,apical+anteroseptal non-transmural WA in LAD wi/significant,mod.corina-infarct isch.Second defect.- extensive lateral WA in the [...] - lives with ; Place of - [place]; REVIEW OF SYSTEMS GENERAL no change in appetite, energy - decreased a little, weight gain of approximately 5 lbs INTEGUMENTARY denies any change in hair or nails, rashes, or skin lesions. EYES wears eye glasses/contact lenses EARS, NOSE, THROAT, MOUTH denies any hearing loss, epistaxis, hoarseness or difficulty speaking. RESPIRATORY cough, once in a while CARDIOVASCULAR light headedness, sometimes, negative for chest discomfort, negative for palpitations, negative for edema ABDOMINAL Acid reflux - occasional vomitting after a couple of bites of food and chronic constipation GENITOURINARY-FEMALE no concerns MUSCULOSKELETAL denies any history of arthritic symptoms or back problems. NEUROLOGICAL denies any history of recurrent strokes, TIA, or seizure disorder. PSYCHIATRIC anxiety controlled with medication, stress controlled ENDOCRINE denies any history of thyroid disease or diabetes mellitus. HEMATOLOGICAL/IMMUNOLOGIC medication allergies, seasonal allergies IMPRESSION/PLAN We will see her back in a year. We will do blood work. As you remember, her nuclear stress tests have been false positives in the past. If she develops chest pain she will either have to get a standardangiogram or perhaps a dobutamine stress echo, CT coronary angiogram will not work because of the heavy calcification. This was a 25 minute all counseling. TODAYS ORDERS 1. BMP 1 year 2. F/U with Guillermo Martinez MD 1 year 3. Lipid profile/ALT 1 year Guillermo Martinez M.D. documented in this encounter Plan of Treatment Not on filedocumented as of this encounter Visit Diagnoses Not on filedocumented in this encounter Care Teams Edge Beader Relationship Specialty Start Date End Date Alicia Nice MD PCP - General Family Practice 08/25/12 6 Donell Fair MD PCP - General Family Practice 08/23/15 12/29/15 [address] [place] [address] [facility] PCP - General 12/30/15 10/15/16 [address] [place] [address] None PCP - General 10/16/16 01/10/17 Allyson Pool PA PCP - General 04/27/17 [facility] [address] [place] [address] Guillermo Martinez MD MD Cardiology 11/15/17 [address] [facility] [address] [place] [phone] documented as of this encounter
--- OUTSIDE RECORDS SUMMARY | 2022-02-21 10:34 | XMS_ITS | Encounter Summary ---
:1935 Author Organization [place] Address [facility] [place] [address] Care Team Providers Name Role Phone Alicia Nice MD Primary Care Provider Unavailable Les Fair MD Primary Care Provider [facility] Primary Care Provider [phone] None Primary Care Provider Unavailable Allyson Pool Primary Care Provider Guillermo Martinez MD Unavailable Encounter Details Date Type Department Care Team Description 04/30/2008 Office Visit-[facility] [place], Clinic [place] Fink, CONSTRUCTION MANAGEMENT ASSISTANT SENIOR REGULATORY AFFAIRS SPECIALIST [address] [place] [address] [place] [id number] (Wo rk) Social History Tobacco Use Types Packs/Day Years Used Date Smoking Tobacco: Never Assessed Sex Assigned at Date Recorded Not on file documented as of this encounter Progress Notes Jesús Almanza, LEAD HANDLER - 05/11/2008 5:24 PM CST Progress Note Created by: Jesús Almanza, N.P. DATE: 04/30/2008 WAQAR LUNDBERG DATE OF : 1935 AGE: [age] years old Referring Physician: ALICIA NICE Referring Clinic: [facility] CURRENT DIAGNOSES 1. Hypertension-Essential (Benign), 401.1 2. - Hyperlipidemia, 272.4 3. Status post-PTCA, V45.82 4. IN-Acute Anterior, 410.11 5. Ventricular tachycardia, 427.1 6. - CAD, 414.00 7. Obesity-(<LT>100 ), 278.00 ALLERGIES lipitor-myalgias Morphine, Vomiting MEDICATIONS (prior to changes made today) 1. Crestor 10 Mg, 1 p.o. q.d. 2. Plavix 75 Mg, 1 p.o. q.d. 3. Dyazide 25 Mg-37.5 Mg, 1 p.o. q.d. 4. Lotrel 5 Mg - 40 Mg, 1 p.o. q.d. 5. Nitroglycerin 0.4 Mg, Take as Directed 6. Aspir-Low 81 mg, 1 p.o. q.d. 7. Normodyne 100 Mg, 2 tabs bid fill with labetolol 8. Paxil 10 Mg, 1 p.o. q.d. CHIEF COMPLAINTS Follow up meds HISTORY OF PRESENT ILLNESS Waqar Lundberg is a delightful 72-year-old female who returns today to review her blood pressure since switching metoprolol to labetalol. She had her first myocardial infarction 25 years ago and has a very strong family history of heart disease. She has lost many family members to this disease. She hasa chronically occluded circumflex. She had an anterior myocardial infarction in 2002 with a ventricular fibrillation arrest and continues to have an occluded circumflex. Her right coronary artery was 60% narrowed. He left anterior descending was very tortuous; however, an angioplasty was performed bette stent could not be placed because of the tortuosity. Dr. Martinez has felt if her left anterior descending ever becomes an issue, one of the newer generation cobalt stents may need to be placed or could be placed. The last exam on her coronary arteries a couple of years ago showed ongoing moderate disease and nuclear tests will be done this next year to look for any ischemia. She has had no symptoms. She may indeed end up having a false positive nuclear test, prompting an angiogram, as she has had abnormal nuclear studies in the past with no progression of her disease. I saw her a few weeks ago and she had weaned off of Paxil, which she had been on for anxiety. She was feeling a bit emotionally labile at that point and apparently this became worse and she is now backon this medication. We also switched her metoprolol to labetalol starting at 100 mg b.i.d. and she called me with high blood pressures and high heart rates. I increased it to 200 mg twice daily and since that time, she has many numbers at home between 115 and 126 over 65 to 80, which is a dramatic improvement. She saw her primary care physician recently as well and her numbers were just as good there. She feels quite good on this medication now. Today in the clinic her blood pressure was initially high but she is having what she calls another anxious day where she has been rushing, walking the mall and was fearful of being late for my appointment. She clearly admits to having white-coat hypertension, as well. When we talked for a bit and I rechecked her blood pressure, it is firmly in the 126/70s, which is improved. She has had myalgias on Lipitor and is now on Crestor and tolerating this well. Her last LDL was 76,down from the 100s. Her HDL is fine, as are her triglycerides. Crestor is a bit more cost prohibitive for her but I have offered samples to help her since she is in the doughnut hole. She has chronic lower extremity edema with vein stripping and varicosities. She is planning to leavefor winter months and is overall feeling quite good and her mode is improving back on her Paxil. PAST HISTORY Past Medical Illnesses: hyperlipidemia, hypertension, obesity, cellulitis, benign breast bx, lung nodule (followed by CT perpmd), varicose vein Past Cardiac Illnesses: coronary artery disease, S/P myocardial infarction-anterior, VF arrest with IN, NSVT immed after IN,Lat IN 1980, Ant IN (Vfib) 10-13 Cath-PTCA LAD(too tortuous for stent), 100%Lcx-OM, 50-60% RCA, PAC, PAT-non sust Infectious History: cellulitis Surgeries/Procedures - General: appy, mario, tonsillectomy, BHARAT, varicose vein strip Cardiology Procedures-Invasive: cardiac cath (left) November 2002, cardiac cath (left) October 2005 Cardiology Procedures-Noninvasive: holter monitor November 2002, myocardial perfusion imaging (Nuclear) December 2002, myocardial perfusion imaging (Nuclear) April 2003, treadmill cardiolite September 2005 Cardiac Cath Results: 10/16-Three vessel diease with [...] positive; Obesity:positive; Sedentary Life Style:negative; Age:positive; Menopausal:positive SOCIAL HISTORY Alcohol Use - does not use alcohol; Smoking - does not smoke; Diet - caffeine use-3-4 per day, low sodium (less than 2 grams) and low fat Diet; Lifestyle - and children; Exercise - no regular exercise; Seat Belt Use - always; Occupation - retired; Residence - lives with ; Place of - [place]; REVIEW OF SYSTEMS GENERAL weight gain, 3 lbs INTEGUMENTARY denies any change in hair [...] allergies PHYSICAL EXAMINATION VITAL SIGNS: Blood Pressure: 140/78 Sitting, Left arm, large cuff 126/74 Retaken by LEAD HANDLER/PA Pulse- 64.00/min. Weight- 248.20 lbs. Height- 65.00 Temperature- .00 CONSTITUTIONAL cooperative [...] time, person and place. MEDICATIONS UPDATED/STARTED TODAY: Normodyne 100 Mg, 2 tabs bid fill with labetolol, #120 Paxil 10 Mg, 1 p.o. q.d., DIRECTED MEDICATIONS REFILLED/STOPPED TODAY: Normodyne 100 mg 1 p.o. b.i.d. fill with labetolol #60 Dosage Increased IMPRESSIONS/PLAN 1. Coronary artery disease with a history of a cardiac arrest and moderate left anterior descending disease. She will have a nuclear test in October and if it is positive, we may need to proceed with a coronary angiography. We will continue with risk factor modification. 2. Dyslipidemia, improved on Crestor. She will continue this same dose. She plans to increase her exercise in [place] this winter and we will recheck when she is back in October. 3. Hypertension. Improved on labetalol. I will continue 200mg twice daily. She has only mild lightheadedness when her blood pressure is 115 and I have told herif it is persistently that low and she is lightheaded, she should dose adjust the morning to 100 mg,leaving the evening at 200. She would even like to try 150 mg in the morning and 200 in the evening if need be and that would be fine, as well. I asked her to call me if she has any questions with adjusting the dose while she is [place] and I would be more than happy to advise. It has been a great pleasure seeing Waqar in followup. I am happy that she is doing well and will plan to see her back in October of 2008. Jessú Almanza, N.P. documented in this encounter Plan of Treatment Not on filedocumented as of this encounter Visit Diagnoses Not on filedocumented in this encounter Care Teams Bank Note Designer Relationship Specialty Start Date End Date Alicia Nice MD PCP - General Family Practice 08/25/12 6 Les Fair MD PCP - General Family Practice 08/23/15 12/29/15 [address] [place] [address] [facility] PCP - General 12/30/15 10/15/16 [address] [place] [address] None PCP - General 10/16/16 01/10/17 Allyson Pool PA PCP - General 04/27/17 [facility]3] [address] [place] [id number] Guillermo Martinez MD MD Cardiology 11/15/17 [address] [place] [id number] documented as of this encounter
--- OUTSIDE RECORDS SUMMARY | 2022-02-21 10:34 | XMS_ITS | Encounter Summary ---
:1935 Author Organization [place] Address [facility] [place] [address] Care Team Providers Name Role Phone Alicia Nice MD Primary Care Provider Unavailable Les Fair MD Primary Care Provider [facility] Primary Care Provider [phone] None Primary Care Provider Unavailable Allyson Pool Primary Care Provider Guillermo Martinez MD Unavailable Encounter Details Date Type Department Care Team Description 12/24/2008 Office Visit-[facility] [place], Clinic [place] Fink, CURTAIN MENDER EMAIL MARKETER [address] [facility] [address] [facility] [address] [place] [address] [place] [id number] (Wo rk) Social History Tobacco Use Types Packs/Day Years Used Date Smoking Tobacco: Never Assessed Sex Assigned at Date Recorded Not on file documented as of this encounter Progress Notes Jesús Almanza, SUPERVISOR BOAT OUTFITTING - 01/03/2009 9:25 PM CDT Progress Note Created by: Jesús Almanza, N.P. DATE: 12/24/2008 WAQAR LUNDBERG DATE OF : 1935 AGE: [age] years old Referring Physician: ALICIA NICE Referring Clinic: [facility] CURRENT DIAGNOSES 1. - CAD, 414.00 2. Hypertension-Essential (Benign), 401.1 3. - Hyperlipidemia, 272.4 4. Status post-PTCA, V45.82 5. Obesity-(<LT>100 ), 278.00 6. CO-Acute Anterior, 410.11 7. Ventricular tachycardia, 427.1 ALLERGIES lipitor-myalgias Morphine, Vomiting MEDICATIONS (prior to changes made today) 1. Labetalol Hydrocloride 100 mg, 1 tab in the am and 1 1/2 tab in the pm 2. Crestor 20 Mg, 1 p.o. daily 3. Plavix 75 Mg, 1 p.o. daily 4. Nitroglycerin 0.4 Mg, Take as Directed 5. Amlodipine 5 Mg, 1 p.o. daily 6. Aspir-low 81 Mg, 1 p.o. daily 7. Benazepril Hydrochloride 40 Mg, 1 p.o. daily 8. Dyazide 25 Mg-37.5 Mg, 1 p.o. daily 9. Paxil 10 Mg, 1 p.o. daily CHIEF COMPLAINTS Follow up angio HISTORY OF PRESENT ILLNESS Waqar Lundberg is a very pleasant 73-year-old female with a strong family history of coronary diseaseand she herself had her first CO 25 years ago. She has lost many family members to this disease. Hercardiac anatomy is outlined in detail in my note in [facility] data, a Cardiology consultation from 12/01/08. At that point her nuclear stress test appeared as if she had an increased amount of reversibility in the LAD distribution and a second defect. Based on this and her known coronary disease, we sent her to the coronary angiography lab December 02, 2008. I am happy to report that she showed no progressionof her disease. An LAD WaveWire showed a fractional flow reserve of 0.9. She does have ongoing multivessel disease, but all was stable. The reader is referred to the body of that report for the details. There has historically been some discrepancy between her ejection fraction on LVgram and nuclear stress testing. At that time her LVgram showed ejection fraction of 55%, as did her nuclear test, so all seems well there. Her fatigue she was having prior to her coronary angiogram has disappeared. She had an LDL of 75 recently, and given her multivessel disease I increased her Crestor to 20 mg q.d., although she has not started taking that. She will do that now and we will check her lipids when she sees Dr. Martinez in January. Given her history of severe coronary artery disease, her LDL should be firmly below 100. She has had myalgias in the past on a few statins, and I have asked her to contact me if this happens on Crestor and we may be able to use Zetia for her. She was having some buttocks pain last visit that has also resolved, and overall she states she is feeling the best that she has in quite some time. She stopped her Paxil over this past year, but her depression became quite significant and she went back on it and is doing much better now. PAST HISTORY Past Medical Illnesses: hyperlipidemia, hypertension, obesity, cellulitis, benign breast bx, lung nodule (followed by CT perpmd), varicose vein Past Cardiac Illnesses: coronary artery disease, S/P myocardial infarction-anterior, VF arrest with CO, NSVT immed after [place],Lat [place] 1980, Ant [place] (Vfib) 10-13 Cath-PTCA LAD(too tortuous for stent), [...] Cath, EF 55% by cath November 2008 FAMILY [...] - lives with ; Place of - [place]; REVIEW OF SYSTEMS GENERAL weight loss of approximately 5 lbs INTEGUMENTARY denies any [...] allergies PHYSICAL EXAMINATION VITAL SIGNS: Blood Pressure: 120/60 Sitting, Left arm, large cuff Pulse- 68.00/min. Weight- 241.60 lbs. Height- 65.00 Temperature- .00 CONSTITUTIONAL cooperative [...] time, person and place. MEDICATIONS UPDATED/STARTED TODAY: IMPRESSIONS/PLAN 1. Coronary artery disease which is multivessel in nature. She has undergone previous interventions and her recent nuclear stress test appeared as if her LAD had progressed. This turned out not to be the case, and I am delighted for her. I will continue aggressive medical management and she will see Dr. Martinez in January. I will let him determine when her next nuclear test should be performed. 2. Dyslipidemia. Given her extensive heart disease, I did increase Crestor to 20 mg q.d., which she has not started yet. She has a history of myalgias on Lipitor. We will repeat her lipid profile in January. If she does not tolerate this dose, I would think about adding Crestor. 3. Hypertension, markedly improved with the switch to labetalol over this last year. 4. Anxiety/depression, being managed by Dr. Nice, stable on Paxil. Discrepancy in the ejection fractions has resolved. It is normal now bothby LVgram and nuclear stress testing. It has been a pleasure to see Waqar in followup. We will see her back in early January. TODAYS ORDERS 1. Lipid profile/ALT 3 weeks Jesús Almanza, N.P. documented in this encounter Plan of Treatment Not on filedocumented as of this encounter Visit Diagnoses Not on filedocumented in this encounter Care Teams Administrative Operations Coordinator Relationship Specialty Start Date End Date Alicia Nice MD PCP - General Family Practice 08/25/12 6 Les Fair MD PCP - General Family Practice 08/23/15 12/29/15 [address] [place] [address] [facility] PCP - General 12/30/15 10/15/16 [address] [place] [address] None PCP - General 10/16/16 01/10/17 Allyson Pool PA PCP - General 04/27/17 [facility] [address] [place] [place] [address] Guillermo Martinez MD MD Cardiology 11/15/17 [address] [place] [phone] documented as of this encounter
--- OUTSIDE RECORDS SUMMARY | 2022-02-21 10:34 | XMS_ITS | Encounter Summary ---
:1935 Author Organization [place] Address [address] [place] [address] Care Team Providers Name Role Phone Unavailable Primary Care Provider Unavailable Encounter Details Date Type Department Care Team Description 12/02/2008 Results [facility] Guillermo Alegre MD Hospital Results [address] [place] [address] (Wo rk) Social History Tobacco Use Types Packs/Day Years Used Date Smoking Tobacco: Never Assessed Sex Assigned at Date Recorded Not on file documented as of this encounter Plan of Treatment Not on filedocumented as of this encounter Procedures Procedure Name Priority Date/Time Associated Comments Diagnosis HC PRESSURE GRADIENT Routine 12/02/2008 12:13 Res ults for this MEASUREMENT, INITIAL PM CDT procedu re are in VESSEL the results section. HC INJ PROC FOR LT Routine 12/02/2008 12:13 Resul ts for this VENTRICULAR/ATRIAL PM CDT procedure are in ANGIOGRAPHY the results section. HC LEFT HEART Routine 12/02/2008 12:13 Results fo r this CATHETERIZATION PM CDT procedure ar e in the results section. documented in this encounter Results INJECT W CARD CATH LV/LA ANGIO (12/02/2008 12:13 PM CDT) Component Value Ref Test Analysis Performed At [facility] Range Method Time Signature IMAGECAST RADIOLOGY RESULT FIDELIA LUNDBERG ?? RESULTS ?? CATH REPORT ? PROCEDURES PERFORMED: 1. ??Left heart catheterization. 2. ??Coronary and left ventricular angiography. 3. ??LAD fractional flow reserve. ?? CLINICAL DATA: ??This is a 73-year-old woman with a history of coronary disease beginning at age 44 with an ME related to c losure of an obtuse marginal branch. ??In 2002, she presented with an anterior ME and underwent emergent angioplasty of the mid LAD. ??It c ould not be stented due to a tortuous calcified vessel. ??She present s now with a month of not feeling normal energy and general fatigue. ?? A stress nuclear study shows a new extensive proximal, mid and distal anterior and anterolateral perfusion defect and therefore she was ref erred to the [facility]. ?? CATHETERIZATION RESULTS: 1. ??Coronary artery disease with chronic total occlusion of the first obtuse marginal which is old, but no other lesions greater t motta 50-60% and no hemodynamically severe lesions. a) Left main coronary artery. ??This is short, moderately ca lcified but normal in caliber and has no obstructive lesions. b) Left anterior descending. ??This is heavily calcified thr oughout its proximal and mid vessel and is fairly tortuous. ??There is a smooth proximal 45-50% stenosis but the vessel caliber is no rmal in this area. ??There is minimal irregularity after the first d iagonal. ?? Just at the second diagonal is a smooth 40-50% mid LAD lesio n at the site of previous angioplasty that does not appear hemodynami tracee significant. ??There is mild distal irregularity. ??The firs t and second diagonal branches have mild irregularity but no signi ficant lesions. c) Left circumflex. ??This is nondominant with a very small first marginal and moderate second marginal and small posterolater al marginal. ??The circumflex proper has a proximal 40-50% smoo th stenosis. ??The very small first marginal has no significant lesions. ?? The moderate-sized second marginal is chronically occluded a nd fills by SONDRA 3 antegrade collaterals. ??This is old. ??There are no significant distal circumflex or posterolateral branch lesio ns. d) Right coronary artery. ??This is morphologically dominant and arises normally. ??There is diffuse moderately severe calcif ication throughout the AV groove but normal caliber vessel. ??There is an ostial 50-60% stenosis. ??There is a mid 40%. ??There is a d istal 50-60% stenosis. ??These are smooth and do not appear hemody namically severe. ??The PDA and a fairly large posterior lateral syste m with three left ventricular posterolateral branches are essential ly normal. 2. ??Left ventriculogram. ??The chamber size is normal. ??Ej ection fraction estimated at 55%. ??There is mild anterior and mode rate apical hypokinesis. ??Left ventricular pressure was 160/27 w ithout gradient across the aortic valve. 3. ??LAD fractional flow reserve. ??This was performed acros s the proximal LAD 50% stenosis with the WaveWire in the mid LAD. ?? Fractional flow reserve was 0.9, which is not significantly reduced. ?? COMMENT: ??No culprit lesions for new ischemia are identifie d on this study as noted above. ??Continued medical therapy is recomme nded. ?? However, I will have her keep her followup appointment with [facility] which already arranged. ??She will continue med ical management as well as risk factor treatment. ?? PROCEDURE: ??Using a modified Seldinger technique, a 4 Frenc h sheath was placed into the right femoral artery. ??Selective left a nd right coronary angiography and left ventriculography were performe d with JL-4.5, 3DRC, and pigtail catheters. ??We then proceeded on to fractional flow reserve. ??A WaveWire was advanced through t he JL-4.5 and after calibration, advanced into the mid LAD. ??Nitrogly cerin was administered intracoronary followed by serial adenosine bolu ses ranging from 24-48 mcg. ??There was a flat fractional flow r eserve response of 0.90 at each dose. ??Following this, a WaveWire was removed and repeat angiography performed. ??Catheters and sh eaths were then removed, hemostasis obtained, and the patient was trans ferred back to the Care Suites. ?? Total contrast 148 mL Optiray 350. ??Fluoroscopy time 3.8 mi nutes. Specimen (Source) Anatomical Collection Method Collection Time Re ceived Time Location / / Volume Laterality 12/02/2008 12:13 PM CDT Guillermo Martinez MD PROCEDURES Performing Organization Address City/State/ZIP Code Phon e Number RADIOLOGY RESULTS LEFT HEART CATH,PERCUTANEOUS (12/02/2008 12:13 PM CDT) Component Value Ref Test Analysis Performed At [facility] Cisco Method Time Signature IMAGECAST RADIOLOGY RESULT FIDELIA LUNDBERG ?? RESULTS ?? CATH REPORT ? PROCEDURES PERFORMED: 1. ??Left heart catheterization. 2. ??Coronary and left ventricular angiography. 3. ??LAD fractional flow reserve. ?? CLINICAL DATA: ??This is a 73-year-old woman with a history of coronary disease beginning at age 44 with an ME related to c losure of an obtuse marginal branch. ??In 2002, she presented with an anterior ME and underwent emergent angioplasty of the mid LAD. ??It c ould not be stented due to a tortuous calcified vessel. ??She present s now with a month of not feeling normal energy and general fatigue. ?? A stress nuclear study shows a new extensive proximal, mid and distal anterior and anterolateral perfusion defect and therefore she was ref erred to the [facility]. ?? CATHETERIZATION RESULTS: 1. ??Coronary artery disease with chronic total occlusion of the first obtuse marginal which is old, but no other lesions greater t motta 50-60% and no hemodynamically severe lesions. a) Left main coronary artery. ??This is short, moderately ca lcified but normal in caliber and has no obstructive lesions. b) Left anterior descending. ??This is heavily calcified thr oughout its proximal and mid vessel and is fairly tortuous. ??There is a smooth proximal 45-50% stenosis but the vessel caliber is no rmal in this area. ??There is minimal irregularity after the first d iagonal. ?? Just at the second diagonal is a smooth 40-50% mid LAD lesio n at the site of previous angioplasty that does not appear hemodynami tracee significant. ??There is mild distal irregularity. ??The firs t and second diagonal branches have mild irregularity but no signi ficant lesions. c) Left circumflex. ??This is nondominant with a very small first marginal and moderate second marginal and small posterolater al marginal. ??The circumflex proper has a proximal 40-50% smoo th stenosis. ??The very small first marginal has no significant lesions. ?? The moderate-sized second marginal is chronically occluded a nd fills by SONDRA 3 antegrade collaterals. ??This is old. ??There are no significant distal circumflex or posterolateral branch lesio ns. d) Right coronary artery. ??This is morphologically dominant and arises normally. ??There is diffuse moderately severe calcif ication throughout the AV groove but normal caliber vessel. ??There is an ostial 50-60% stenosis. ??There is a mid 40%. ??There is a d istal 50-60% stenosis. ??These are smooth and do not appear hemody namically severe. ??The PDA and a fairly large posterior lateral syste m with three left ventricular posterolateral branches are essential ly normal. 2. ??Left ventriculogram. ??The chamber size is normal. ??Ej ection fraction estimated at 55%. ??There is mild anterior and mode rate apical hypokinesis. ??Left ventricular pressure was 160/27 w ithout gradient across the aortic valve. 3. ??LAD fractional flow reserve. ??This was performed acros s the proximal LAD 50% stenosis with the WaveWire in the mid LAD. ?? Fractional flow reserve was 0.9, which is not significantly reduced. ?? COMMENT: ??No culprit lesions for new ischemia are identifie d on this study as noted above. ??Continued medical therapy is recomme nded. ?? However, I will have her keep her followup appointment with [facility] which already arranged. ??She will continue med ical management as well as risk factor treatment. ?? PROCEDURE: ??Using a modified Seldinger technique, a 4 Frenc h sheath was placed into the right femoral artery. ??Selective left a nd right coronary angiography and left ventriculography were performe d with JL-4.5, 3DRC, and pigtail catheters. ??We then proceeded on to fractional flow reserve. ??A WaveWire was advanced through t he JL-4.5 and after calibration, advanced into the mid LAD. ??Nitrogly cerin was administered intracoronary followed by serial adenosine bolu ses ranging from 24-48 mcg. ??There was a flat fractional flow r eserve response of 0.90 at each dose. ??Following this, a WaveWire was removed and repeat angiography performed. ??Catheters and sh eaths were then removed, hemostasis obtained, and the patient was trans ferred back to the Care Suites. ?? Total contrast 148 mL Optiray 350. ??Fluoroscopy time 3.8 mi nutes. Specimen (Source) Anatomical Collection Method Collection Time Re ceived Time Location / / Volume Laterality 12/02/2008 12:13 PM CDT Guillermo Martinez MD PROCEDURES Performing Organization Address City/State/ZIP Code Phon e Number RADIOLOGY RESULTS HEART FLOW (CORONARY ANGIO) (12/02/2008 12:13 PM CDT) Anatomical Region Laterality Modality Other Specimen (Source) Anatomical Collection Method Collection Time Re ceived Time Location / / Volume Laterality 12/02/2008 12:13 PM CDT Impressions 12/20/2008 2:22 PM CDT FIDELIA LUNDBERG ? CATH REPORT ? PROCEDURES PERFORMED: 1. ??Left heart catheterization. 2. ??Coronary and left ventricular angio graphy. 3. ??LAD fractional flow reserve. ?? CLINICAL DATA: ??This is a 73-year-old w patricia with a history of coronary disease beginning at age 44 wit h an ME related to closure of an obtuse marginal branch. ??In 2002, luci jain presented with an anterior ME and underwent emergent angioplasty of the mid LAD. ??It could not be stented due to a tortuous calcified v essel. ??She presents now with a month of not feeling normal energy and general fatigue. ??A stress nuclear study shows a new extensive prox imal, mid and distal anterior and anterolateral perfusion defect and t herefore she was referred to the [facility]. ?? CATHETERIZATION RESULTS: 1. ??Coronary artery disease with chroni c total occlusion of the first obtuse marginal which is old, but no oth er lesions greater than 50-60% and no hemodynamically severe les ions. a) Left main coronary artery. ??This is short, moderately calcified but normal in caliber and has no obstruc tive lesions. b) Left anterior descending. ??This is h eavily calcified throughout its proximal and mid vessel and is fairl y tortuous. ??There is a smooth proximal 45-50% stenosis but the vessel caliber is normal in this area. ??There is minimal irregulari ty after the first diagonal. ?? Just at the second diagonal is a smooth 40-50% mid LAD lesion at the site of previous angioplasty that does n ot appear hemodynamically significant. ??There is mild distal irre gularity. ??The first and second diagonal branches have mild irreg ularity but no significant lesions. c) Left circumflex. ??This is nondominan t with a very small first marginal and moderate second marginal an d small posterolateral marginal. ??The circumflex proper has a proximal 40-50% smooth stenosis. ??The very small first margina l has no significant lesions. ?? The moderate-sized second marginal is ch ronically occluded and fills by SONDRA 3 antegrade collaterals. ??This is old. ??There are no significant distal circumflex or postero lateral branch lesions. d) Right coronary artery. ??This is morp hologically dominant and arises normally. ??There is diffuse mode rately severe calcification throughout the AV groove but normal romeo patrice vessel. ??There is an ostial 50-60% stenosis. ??There is a mid 40%. ??There is a distal 50-60% stenosis. ??These are smooth and do not appear hemodynamically severe. ??The PDA and a fairly large pos terior lateral system with three left ventricular posterolateral br anches are essentially normal. 2. ??Left ventriculogram. ??The chamber size is normal. ??Ejection fraction estimated at 55%. ??There is mi ld anterior and moderate apical hypokinesis. ??Left ventricular p ressure was 160/27 without gradient across the aortic valve. 3. ??LAD fractional flow reserve. ??This was performed across the proximal LAD 50% stenosis with the WaveW hol[place] in the mid LAD. ?? Fractional flow reserve was 0.9, which i s not significantly reduced. ?? COMMENT: ??No culprit lesions for new is chemia are identified on this study as noted above. ??Continued medica l therapy is recommended. ?? However, I will have her keep her follow up appointment with [facility] which already arranged. ??S he will continue medical management as well as risk factor treatm ent. ?? PROCEDURE: ??Using a modified Seldinger technique, a 4 Yoruba sheath was placed into the right femoral artery . ??Selective left and right coronary angiography and left ventriculo graphy were performed with JL-4.5, 3DRC, and pigtail catheters. ??W e then proceeded on to fractional flow reserve. ??A WaveWire wa s advanced through the JL-4.5 and after calibration, advanced into the mid LAD. ??Nitroglycerin was administered intracoronary followed by s erial adenosine boluses ranging from 24-48 mcg. ??There was a fl at fractional flow reserve response of 0.90 at each dose. ??Followi ng this, a WaveWire was removed and repeat angiography performed . ??Catheters and sheaths were then removed, hemostasis obtained, and t he patient was transferred back to the Care Suites. ?? Total contrast 148 mL Optiray 350. ??Flu oroscopy time 3.8 minutes. Guillermo Martinez MD SPECIAL IMAGING STUDIES documented in this encounter Visit Diagnoses Not on filedocumented in this encounter
--- OUTSIDE RECORDS SUMMARY | 2022-02-21 10:34 | XMS_ITS | Encounter Summary ---
:1935 Author Organization [place] Address [address] [facility] [place] [address] Care Team Providers Name Role Phone Alicia Nice MD Primary Care Provider Unavailable Encounter Details Date Type Department Care Team Description 11/29/2008 Historic Results [facility] Heart Unknown, Doct or, Clinic [address] [place] [address] Social History Tobacco Use Types Packs/Day Years Used Date Smoking Tobacco: Never Assessed Sex Assigned at Date Recorded Not on file documented as of this encounter Plan of Treatment Not on filedocumented as of this encounter Procedures Procedure Name Priority Date/Time Associated Comments Diagnosis [facility] HISTORICAL Routine 11/29/2008 12:00 AM Resu lts for this RESULTS CDT procedure are i n the results section. [facility] HISTORICAL Routine 11/29/2008 12:00 AM Resu lts for this RESULTS CDT procedure are i n the results section. documented in this encounter Results [facility] Historical Results (11/29/2008 12:00 AM CDT) [facility] Method Time Signature Triglycerides 98 0 - 150 [facility] mg/dL HISTORICAL RESULTS Cholesterol, Total 150 0 - 199 [facility] mg/dL HISTORICAL RESULTS HDL Cholesterol 55 >50 mg/dL [facility] HISTORICAL RESULTS LDL Cholesterol 75 70 - 160 [facility] Calculated CALC HISTORICAL RESULTS VLDL - Calc 20 <40 CALC [facility] HISTORICAL RESULTS Cholesterol/HDL 2.7 <4.4 CALC [facility] Ratio HISTORICAL RESULTS ALT 21 3 - 40 U/L [facility] HISTORICAL RESULTS Specimen (Source) Anatomical Location Collection Method / Collectio n Time Received Time / Laterality Volume 11/29/2008 11/29/2008 Doctor Unknown MD LABORATORY Performing Organization Address City/State/ZIP Code Phon e Number [facility] HISTORICAL RESULTS [facility] Historical Results (11/29/2008 12:00 AM CDT) P athologist Signature Sodium 141 136 - 145 [facility] mmol/L HISTORICAL RESULTS Potassium 4.1 3.5 - 5.1 [facility] mmol/L HISTORICAL RESULTS Chloride 105 98 - 107 [facility] mmol/L HISTORICAL RESULTS Carbon Dioxide 24 23 - 29 [facility] mmol/L HISTORICAL RESULTS Anion Gap Ratio 16 RATIO [facility] HISTORICAL RESULTS Urea Nitrogen 11 7 - 30 [facility] mg/dL HISTORICAL RESULTS Creatinine 0.9 0.7 - 1.3 [facility] mg/dL HISTORICAL RESULTS Calcium 8.9 8.5 - 10.5 [facility] mg/dL HISTORICAL RESULTS Glucose 95 70 - 105 [facility] mg/dL HISTORICAL RESULTS BUN/Creatinine 12.8 CALC [facility] Ratio HISTORICAL RESULTS eGFR Calculated 80 >60 mL/min [facility] (Black HISTORICAL Reference) RESULTS eGFR Calculated 66 >60 mL/min [facility] (Non Black HISTORICAL Reference) RESULTS Specimen (Source) Anatomical Location Collection Method / Collectio n Time Received Time / Laterality Volume 11/29/2008 11/29/2008 Doctor Unknown LABORATORY Performing Organization Address City/[facility] Phon e Number [facility] HISTORICAL RESULTS documented in this encounter Visit Diagnoses Not on filedocumented in this encounter Care Teams Change Management Facilitator Relationship Specialty Start Date End Date Alicia Nice MD PCP - General Family Practice 08/25/12 6 documented as of this encounter
--- OUTSIDE RECORDS SUMMARY | 2022-02-21 10:34 | XMS_ITS | Encounter Summary ---
:1935 Author Organization [place] Address [facility] [place] [address] Care Team Providers Name Role Phone Alicia Nice MD Primary Care Provider Unavailable Encounter Details Date Type Department Care Team Description 09/14/2014 Orders Only Guillermo Arriaza ypertension, benign (Primary Dx); [facility] MD Aleks Coronary atherosclerosis of unspecified type of vessel, cahto or graft [facility]-[id number] [place] [address] [address] [place] [address] Social History Tobacco Use Types Packs/Day Years Used Date Smoking Tobacco: Never Assessed Sex Assigned at Date Recorded Not on file documented as of this encounter Plan of Treatment Not on filedocumented as of this encounter Results ALT (09/21/2014 8:02 AM CDT) P athologist Signature ALT 22 0 - 50 U/L [facility] Specimen Anatomical Collection Method Collection Time Receive d Time (Source) Location / / Volume Laterality Blood specimen 09/21/2014 8:02 AM 015 8:03 (specimen) CDT AM CDT Guillermo Martinez MD LAB - BLOOD ORDERABLES Performing Organization Address City/State/ZIP Code Phon e Number [facility] [address] [place], [place] [address] [facility] [address] [place], [place] [address], [facility] [phone] Lipid Profile (09/21/2014 8:02 AM CDT) athologist Signature Cholesterol 135 <200 mg/dL [facility] Comment: LDL Cholesterol is the primary guide to therapy. The NCEP recommends further evaluation of: patients with cholesterol greater than 200 mg/dL if additional risk facto rs are present, cholesterol greater than 240 mg/dL, triglycerides greater than 1 50 mg/dL, or HDL less than 40 mg/dL. Triglycerides 100 0 - 150 mg/dL [facility] Comment: Fasting specimen HDL Cholesterol 57 >50 mg/dL [facility] LDL Cholesterol Calculated 58 0 - 129 mg/dL [facility] Comment: LDL Cholesterol is the primary guide to therapy: LDL-cholesterol goal in high risk patients is <100 mg/dL and in very high risk patients is <70 mg/dL. VLDL-Cholesterol 20 0 - 30 mg/dL [facility] Cholesterol/HDL Ratio 2.4 0.0 - 5.0 [facility] Specimen Anatomical Collection Method Collection Time Receive d Time (Source) Location / / Volume Laterality Blood specimen 09/21/2014 8:02 AM 015 8:03 (specimen) CDT AM CDT Guillermo Martinez MD LAB - BLOOD ORDERABLES Performing Organization Address City/State/ZIP Code Phon e Number [place] [address] [place], [place] [address] [facility] [address] [place], [place] [address] [phone] (ABNORMAL) Basic metabolic panel (09/21/2014 8:02 AM CDT) athologist Signature Sodium 139 133 - 144 [place] mmol/L [facility] Potassium 3.3 (L) 3.4 - 5.3 [place] mmol/L [facility] Chloride 105 94 - 109 [place] mmol/L [facility] Carbon Dioxide 30 20 - 32 [place] mmol/L [facility] Anion Gap 4 3 - 14 [place] mmol/L [facility] Glucose 81 70 - 99 [place] mg/dL [facility] Urea Nitrogen 12 7 - 30 [place] mg/dL [facility] Creatinine 0.84 0.52 - [place] 1.04 mg/dL [facility] GFR Estimate 66 >60 [place] mL/min/1.[address] Comment: Non GFR Calc GFR Estimate If Black 79 >60 mL/min/1.7m2 F [facility] Comment: GFR Calc Calcium 8.2 (L) 8.5 - 10.1 mg/dL [facility] Specimen Anatomical Collection Method Collection Time Receive d Time (Source) Location / / Volume Laterality Blood specimen 09/21/2014 8:02 AM 015 8:03 (specimen) CDT AM CDT Guillermo Martinez MD LAB - BLOOD ORDERABLES Performing Organization Address City/State/ZIP Code Phon e Number [place] [address] [place] [address] [facility] [address] [phone] documented in this encounter Visit Diagnoses Diagnosis Essential hypertension, benign - Primary Coronary atherosclerosis of unspecified type of vessel, cahto or graft documented in this encounter Care Teams Protozoologist Relationship Specialty Start Date End Date Alicia Nice MD PCP - General Family Practice 08/25/12 6 documented as of this encounter
--- OUTSIDE RECORDS SUMMARY | 2022-02-21 10:34 | XMS_ITS | Encounter Summary ---
:1935 Author Organization [place] Address [facility] [place] [address] Care Team Providers Name Role Phone Alicia Nice MD Primary Care Provider Unavailable Les Fair MD Primary Care Provider [facility] Primary Care Provider [phone] None Primary Care Provider Unavailable Allyson Pool Primary Care Provider Guillermo Martinez MD Unavailable Encounter Details Date Type Department Care Team Description 08/26/2009 Office Visit-[facility], Clinic [place] Fink, OIL GAUGER COMMUNITY ORGANIZATION WORKER [address] [facility] [address] [facility] [address] [place] [phone] [place] [id number] (Wo rk) Social History Tobacco Use Types Packs/Day Years Used Date Smoking Tobacco: Never Assessed Sex Assigned at Date Recorded Not on file documented as of this encounter Progress Notes Jesús Almanza, PLASTIC BOAT BUFFER - 12/22/2009 11:57 AM CDT Progress Note Created by: Jesús Almanza, N.P. DATE: 08/26/2009 WAQAR LUNDBERG DATE OF : 1935 AGE: [age] years old Referring Physician: ALICIA NICE Referring Clinic: [facility] CURRENT DIAGNOSES 1. - CAD, 414.00 2. Hypertension-Essential (Benign), 401.1 3. - Hyperlipidemia, 272.4 4. Status post-PTCA, V45.82 5. Obesity-(<LT>100 ), 278.00 6. RI-Acute Anterior, 410.11 7. Ventricular tachycardia, 427.1 ALLERGIES Atorvastatin Calcium, Muscle aches Morphine Sulfate, Intolerance-vomiting MEDICATIONS (prior to changes made today) 1. Labetalol 100 Mg Tablet, 2 p.o. twice daily 2. Aspir-Low 81 mg Tablet, Delayed Release (E.C.), 1 p.o. daily 3. Dyazide 37.5-25 mg Capsule, 1 p.o. daily 4. Nitroglycerin 0.4 mg Tablet, Sublingual, Take as Directed 5. Plavix 75 mg Tablet, 1 p.o. daily 6. Amlodipine 5 Mg Tablet, 1 p.o. daily 7. Benazepril 40 Mg Tablet, 1 p.o. daily 8. Paxil 10 mg Tablet, 1/2 tab daily 9. Crestor 40 mg Tablet, 1 p.o. daily refill one year CHIEF COMPLAINTS follow up dyslipidemia HISTORY OF PRESENT ILLNESS Waqar Lundberg is a pleasant 73-year-old female who returns today for review of her lipid profile. She has known coronary artery disease. Last fall, her nuclear stress test appeared to have a change inthat there was increased reversibility in the LAD distribution. Based on her known coronary artery disease, she went back for a repeat coronary angiogram showing no progression of her disease. An LAD WaveWire showed a fractional flow reserve of 0.9. There have historically been discrepancies between her LV function on LVgram and nuclear testing. Her LVgram showed an ejection fraction of 55%. Her lastnuclear test did as well. Nuclear testing causes her a great amount of anxiety, and she clearly struggles with anxiety in the past and is treated for this. She has had some statin intolerance due to myalgias. She was increased from 10 mg to 20 mg of Crestor last fall prior to leaving for the winter months. After she had been on that higher dose for a few weeks, her LDL was 91. She stayed on Crestor 20 mg through the winter. Now her LDL remains at 89. HerHDL was 47. She appears to be tolerating the Crestor without myalgias. As I detailed her history, she is having desserts, more red meat, and likely has had some dietary indiscretions that contribute. She does try to exercise, but tells me that she gets a gripping pain in her right buttock. If she stops, it abates and she can start again without recurrence. She has full femoral and distal pulses in the right lower extremity with no bruit. However, this does bring up a question of some claudication. We discussed an FRAN today, but she wishes to wait and see how this goes for the next couple of months.She has had some losses in her family over the winter and is tearful over this. Otherwise, she is doing quite well but clearly could make some improvements in her diet along with the increased Crestor.We talked about the Zetia option today. We are opting together to choose high dose statin first. PAST HISTORY Past Medical Illnesses: hyperlipidemia, hypertension, obesity, cellulitis, benign breast bx, lung nodule (followed by CT perpmd), varicose vein Past Cardiac Illnesses: coronary artery disease, S/P myocardial infarction-anterior, VF arrest with RI, NSVT immed after RI,Lat RI 1980, Ant RI (Vfib) 6- Cath-PTCA LAD(too tortuous for stent), 100%Lcx-OM, 50-60% [...] 2008 Nuclear Results: 11/18 Defect.-extensive anterior,apical+anteroseptal non-transmural RI in LAD wi/significant,mod.corina-infarct isch.Second defect.- extensive lateral RI in the CFX artery w/no reversible isch.Third [...] - lives with ; Place of - [place]; REVIEW OF SYSTEMS GENERAL weight loss, 3 lbs, feels well, no change in exercise tolerance. INTEGUMENTARY denies any change in hair or nails, rashes, or skin lesions. EYES wears eye glasses/contact lenses EARS, NOSE, THROAT, MOUTH denies any hearing loss, epistaxis, hoarseness or difficulty speaking. RESPIRATORY cough, sinus related CARDIOVASCULAR light headedness of the ankles, edema of the ankles, somtimes ABDOMINAL worsening reflux causing intermittent nausea MUSCULOSKELETAL neck shoulder pains NEUROLOGICAL denies any history of recurrent strokes, TIA, or seizure disorder. PSYCHIATRIC stress, depression, anxiety ENDOCRINE dyslipidemia HEMATOLOGICAL/IMMUNOLOGIC medication allergies, seasonal allergies PHYSICAL EXAMINATION VITAL SIGNS: Blood Pressure: 110/61Sitting, Left arm, large cuff Pulse- 72.00/min. Weight- 238.10 lbs. Height- 65.00 Temperature- .00 CONSTITUTIONAL cooperative [...] time, person and place. MEDICATIONS UPDATED/STARTED TODAY: Crestor 40 mg Tablet, 1 p.o. daily refill one year, #30 or #90 MEDICATIONS REFILLED/STOPPED TODAY: Crestor 20 mg Tablet 1 p.o. daily #30 Physician Order IMPRESSIONS/PLAN 1. Known coronary artery disease. Her nuclear stress test appeared to have some progression of LAD disease last fall, but her angiogram did not confirm this. Her ejection fraction in the past has been low. However now, it appears normal both by LVgram and nuclear test. She has no heart failure or angina. Continue with medical management. 2. Dyslipidemia. Given her heart disease and aggressive heart disease in her family history, she needs an LDL closer to 70. She will increase Crestor to 40 mg a dayand be watchful for increased muscle discomfort. If so, we will need to back it down and add Zetia and/or Welchol. I will see her back in two months and repeat her lipid profile. 3. Buttock pain. Her exam does not appear to show limited flow. However, an FRAN may be considered in the future if this symptom continues. If it worsens on Crestor, it certainly could be myalgias. It has been a pleasure seeing her in follow up today. We will plan to see her back in two months' time. I will discuss with Dr. Martinez which modality he wishes to use to follow her heart disease as her last nuclear stress test showed some progression that ended up not being reproduced in the Soldering Inspector. TODAYS ORDERS 1. F/U with Jesús Almanza, MSN, ANP 2 months 2. Lipid profile/ALT 2 months Jesús Almanza, N.P. documented in this encounter Plan of Treatment Not on filedocumented as of this encounter Visit Diagnoses Not on filedocumented in this encounter Care Teams Product Grader Relationship Specialty Start Date End Date Alicia Nice MD PCP - General Family Practice 08/25/12 6 Les Fair MD PCP - General Family Practice 08/23/15 12/29/15 [address] [place] [address] [facility] PCP - General 12/30/15 10/15/16 [address] [place] [address] None PCP - General 10/16/16 01/10/17 Allyson Pool PA PCP - General 04/27/17 [facility] [address] [place] [address] Guillermo Martinez MD MD Cardiology 11/15/17 [address] [place] [id number] documented as of this encounter
--- OUTSIDE RECORDS SUMMARY | 2022-02-21 10:34 | XMS_ITS | Encounter Summary ---
:1935 Author Organization [place] Address [address] [facility] [place] [address] Care Team Providers Name Role Phone Alicia Nice MD Primary Care Provider Unavailable Reason for Visit Reason Onset Date Comments Medication Request 03/12/2014 hold plavix Encounter Details Date Type Department Care Team Description 03/12/2014 Telephone [facility] Heart Monique Gupta , Medication Request Clinic Karina BORDEN (hold plavix) [address] [facility] [address] [place] [address] Social History Tobacco Use Types Packs/Day Years Used Date Smoking Tobacco: Never Assessed Sex Assigned at Date Recorded Not on file documented as of this encounter Miscellaneous Notes Telephone Encounter - Monique Gupta RN - 03/15/2014 9:22 AM CST Pt informed per DR Michelle hinojosa with hold for Plavix. Did also call [place] [facility] and informed them Pt canhold plavix, and they require 7 days hold. Pt will restart Plavix post procedure if no complications. Jah Gupta RN FING MANAGER Telephone Encounter - Monique Gupta RN - 03/12/2014 1:26 PM CDT Pt called asking for hold on Plavix she is to have a throat and stomach scope per Pt. She does not have an appointment yet. Jah Gupta RN documented in this encounter Plan of Treatment Not on filedocumented as of this encounter Visit Diagnoses Not on filedocumented in this encounter Care Teams Solid Waste Collector Relationship Specialty Start Date End Date Alicia Nice MD PCP - General Family Practice 08/25/12 6 documented as of this encounter
--- OUTSIDE RECORDS SUMMARY | 2022-02-21 10:34 | XMS_ITS | Encounter Summary ---
:1935 Author Organization [place] Address [address] [facility] [place] [place] [address] Care Team Providers Name Role Phone Alicia Nice MD Primary Care Provider Unavailable Reason for Visit Reason Onset Date Comments Refill Request 12/01/2013 clopidogrel, benazep ril, labetalol Encounter Details Date Type Department Care Team Description 12/01/2013 Refill M [facility] Heart Guillermo Martinez , Refill Request Clinic Karina EVANGELISTA (clopidogrel, [address] [facility] [address] benazepril, labetalol) [address] [place] [address] [place] [phone] (Wo rk) Social History Tobacco Use Types Packs/Day Years Used Date Smoking Tobacco: Never Assessed Sex Assigned at Date Recorded Not on file documented as of this encounter Plan of Treatment Not on filedocumented as of this encounter Visit Diagnoses Diagnosis CAD (coronary artery disease) - Primary Coronary atherosclerosis of unspecified type of vessel, [place] or graft HTN (hypertension) Unspecified essential hypertension documented in this encounter Care Teams Back Shoe Worker Relationship Specialty Start Date End Date Alicia Nice MD PCP - General Family Practice 08/25/12 6 documented as of this encounter
--- OUTSIDE RECORDS SUMMARY | 2022-02-21 10:34 | XMS_ITS | Encounter Summary ---
:1935 Author Organization [place] Address [address] [facility] [place] [address] Care Team Providers Name Role Phone Alicia Nice MD Primary Care Provider Unavailable Encounter Details Date Type Department Care Team Description 01/18/2009 Historic Results [facility] Unknown, Doct or, Clinic [address] [place] [address] Social History Tobacco Use Types Packs/Day Years Used Date Smoking Tobacco: Never Assessed Sex Assigned at Date Recorded Not on file documented as of this encounter Plan of Treatment Not on filedocumented as of this encounter Procedures Procedure Name Priority Date/Time Associated Comments Diagnosis [facility] HISTORICAL Routine 01/18/2009 12:00 AM Resu lts for this RESULTS CDT procedure are i n the results section. documented in this encounter Results [facility] Historical Results (01/18/2009 12:00 AM CDT) [facility] Method Time Signature Triglycerides 86 0 - 150 [facility] mg/dL HISTORICAL RESULTS Cholesterol, Total 148 0 - 199 [facility] mg/dL HISTORICAL RESULTS HDL Cholesterol 50 >50 mg/dL [facility] HISTORICAL RESULTS LDL Cholesterol 81 70 - 160 [facility] Calculated CALC HISTORICAL RESULTS VLDL - Calc 17 <40 CALC [facility] HISTORICAL RESULTS Cholesterol/HDL 3.0 <4.4 CALC [facility] Ratio HISTORICAL RESULTS ALT 18 3 - 40 U/L [facility] HISTORICAL RESULTS Specimen (Source) Anatomical Location Collection Method / Collectio n Time Received Time / Laterality Volume 01/18/2009 01/18/2009 Doctor Unknown MD LABORATORY Performing Organization Address City/State/ZIP Code Phon e Number [facility] HISTORICAL RESULTS documented in this encounter Visit Diagnoses Not on filedocumented in this encounter Care Teams Hazmat Truck Driver Relationship Specialty Start Date End Date Alicia Nice MD PCP - General Family Practice 08/25/12 6 documented as of this encounter
--- OUTSIDE RECORDS SUMMARY | 2022-02-21 10:34 | XMS_ITS | Encounter Summary ---
:1935 Author Organization [place] Address [address] [facility] [place] [address] Care Team Providers Name Role Phone Unavailable Primary Care Provider Unavailable Encounter Details Date Type Department Care Team Description 12/02/2008 Historic Notes INTERFACED REPORT Interface, Transcript MD james Social History Tobacco Use Types Packs/Day Years Used Date Smoking Tobacco: Never Assessed Sex Assigned at Date Recorded Not on file documented as of this encounter Progress Notes Interface, Paper Grader - 07/29/2010 10:48 PM CDT General Information - How to be Addressed fidelia - Patient Belongings purse; given to - personal carer #1: mayo vyas - Relationship to patient #1: - Phone 1: [phone] home - Cell - personal carer #2: daughter onel serra cell [phone] work [phone] - Patient's spoken language; Libyan or Bilingual communication style Current Health and Illness - Reason for Admission coronary angiogram as Stated by Patient Medication Information - Medications Brought yes to Hospital - Medication pill box in belongings with Disposition Living Environment - Lives With spouse Substance Use - Tobacco Use None. - Caffeine Use Yes - Caffeine Type Coffee - Caffeine Amount 5 cups/day - Alcohol Use current alcohol use - Alcohol Type liquor - Alcohol Frequency 2-4 times/mo - History of street No drug/inhalant/ medication abuse Review of Systems (Relevant to Reason for Observation) - Neurological none Conditions/Symptoms - Chronic Pain no - Head none Conditions/Symptoms - Cardiac coronary artery disease; hypertension; high Conditions/Symptoms lipids; myocardial infarction; DC 1980 and 2002 vfib arrest 2002 LAD PTCA 2002 and 100% occ. circ 60% occl. of RCA - Peripheral/Neurovasc_ none ular Conditions/Symptoms - Respiratory none Conditions/Symptoms - Diet Low fat, NPO since pm - GI none Conditions/Symptoms - Musculoskeletal none Conditions/Symptoms - Ambulation 0 - Independent with ambulation - Transferring 0 - Independent with transfers - Toileting 0- Independent with toileting - Bathing 0- Independent with bathing - Dressing 0- Independent with dressing - Eating 0- Independent with eating - Swallowing no swallowing issues reported - Cognition no cognition issues reported - Communication/speech no speech or language problems - Fall history within No history of falls last six months - Which of the above none functional risks had a recent onset or change? - Skin none reported Conditions/Symptoms - Endocrine none Conditions/Symptoms - Hematological none Conditions/Symptoms - Immune /Infections none - Oncology none Conditions/Symptoms - Mental Health anxiety disorder Conditions/Symptoms Learning Assessment - Factors that Impact none Ability to Learn Signatures HE THAKUR (RN)[Signed 08:19] Authored: General Information, Current Health and Illness, Medication Information, Living Environment, Substance Use, Review of Systems (Relevant to Reason for Observation), Learning Assessment documented in this encounter Plan of Treatment Not on filedocumented as of this encounter Visit Diagnoses Not on filedocumented in this encounter
--- OUTSIDE RECORDS SUMMARY | 2022-02-21 10:34 | XMS_ITS | Encounter Summary ---
:1935 Author Organization [place] Address [address] [facility] [place] [address] Care Team Providers Name Role Phone Alicia Nice MD Primary Care Provider Unavailable Reason for Visit Reason Onset Date Comments Refill Request 10/30/2013 crestor Encounter Details Date Type Department Care Team Description 10/30/2013 Refill M [facility] Heart Guillermo Martinez , Refill Request (crestor) Clinic Karina EVANGELISTA [address] [facility] [address] [facility] [address] [place] [address] [place] [phone] (Wo rk) Social History Tobacco Use Types Packs/Day Years Used Date Smoking Tobacco: Never Assessed Sex Assigned at Date Recorded Not on file documented as of this encounter Plan of Treatment Not on filedocumented as of this encounter Visit Diagnoses Diagnosis Mixed hyperlipidemia - Primary documented in this encounter Care Teams Museum Service Scheduler Relationship Specialty Start Date End Date Alicia Nice MD PCP - General Family Practice 08/25/12 6 documented as of this encounter
[2022-02-21 10:35] LABS: Sodium* 136 mmol/L (135-149)
--- OUTSIDE RECORDS SUMMARY | 2022-02-21 10:35 | XMS_ITS | Encounter Summary ---
:1935 Author Organization [place] Address [address] [facility] [place] [address] Care Team Providers Name Role Phone Alicia Nice MD Primary Care Provider Unavailable Les Fair MD Primary Care Provider [facility] Primary Care Provider [phone] None Primary Care Provider Unavailable Allyson Pool Primary Care Provider Guillermo Martinez MD Unavailable Encounter Details Date Type Department Care Team Description 12/14/2004 Office Visit-[facility] Unknown, Oscart MD azam [address] [address] Social History Tobacco Use Types Packs/Day Years Used Date Smoking Tobacco: Never Assessed Sex Assigned at Date Recorded Not on file documented as of this encounter Progress Notes Unknown, DoctorMD - 12/18/2004 10:29 AM CDT Progress Note Created by: Guillermo Martinez M.D. DATE: 12/14/2004 WAQAR LUNDBERG DATE OF : 1935 AGE: [age] years old Referring Physician: ALICIA NICE Referring Clinic: [facility] CURRENT DIAGNOSES 1. - CAD, 414.00 2. Hypertension-Essential (Benign), 401.1 3. - Hyperlipidemia, 272.4 4. Status post-PTCA, V45.82 5. Obesity-(<LT>100 ), 278.00 6. OK-Acute Anterior, 410.11 7. Ventricular tachycardia, 427.1 ALLERGIES Morphine, Vomiting MEDICATIONS (including any changes made today) 1. Dyazide 25 Mg-37.5 Mg, 1 p.o. q.d. 2. Lipitor 80 Mg, 1/2 tab qHS 3. Metoprolol Tartrate 50 Mg, 1/2 tab b.i.d. 4. Niaspan Er 1000 Mg, 1 p.o. qPM 5. Lotrel 5 Mg-20 Mg, 1 p.o. q.d. 6. Plavix 75 Mg, 1 p.o. q.d. 7. Nitroglycerin 0.4 Mg, Take as Directed 8. Aspir-Low 81 mg, 1 p.o. q.d. CHIEF COMPLAINTS Annual HISTORY OF PRESENT ILLNESS Waqar Lundberg returns for followup of her coronary artery disease. She had a heart attack at age 44,which was some 20+ years ago, in her lateral wall. We met her approximately two years ago, when she had anterior infarct with a ventricular fibrillation cardiac arrest. Her left anterior descending was angioplastied; it was tortuous and a stent would not pass. Her left circumflex was occluded. Her right coronary artery had 60% disease. Her ejection fraction was approximately 40+%. The patient reportsabsolutely no heart symptoms. She had had previous studies done for arrhythmia and did not require adefibrillator. Her lipid values were quite abnormal when we first met her. We reviewed her lipids today and they are quite acceptable. Her LDL is in the mid 70s. Her HDL is 54. Her triglycerides are well below 100. She also had problems with potassium and that may have contributed to her arrhythmia. We have switched her medicines and her blood pressure is under perfect control. Her potassium levels have been normal in followup. Her last stress test was April of 2003. It showed fixed lateral infarcts, small anterior infarct; no ischemia. PAST HISTORY Past Medical Illnesses: hyperlipidemia, hypertension, obesity, cellulitis, benign breast bx Past Cardiac Illnesses: coronary artery disease, S/P myocardial infarction-anterior, VF arrest with OK, NSVT immed after OK,Lat OK 1980, Ant OK (Vfib) 10-13 Cath-PTCA LAD(too tortuous for stent), 100%Lcx-OM, 50-60% RCA, PAC, PAT-non sust Surgical Procedures: appy, mario, tonsillectomy, BHARAT, varicose vein strip Cardiology Procedures-Invasive: cardiac cath (left) November 2002 Cardiology Procedures-Noninvasive: holter monitor November 2002, myocardial perfusion imaging (Nuclear) December 2002, myocardial perfusion imaging (Nuclear) April 2003 Left Ventricular Ejection Fraction: 40 FAMILY HISTORY: Father - Age 66, CHF; Mother - Age 63, arterial stenosis; SOCIAL HISTORY Alcohol Use - does not use alcohol; Smoking - does not smoke; Diet - caffeine use-3-4 per day, low sodium (less than 2 grams) and low fat Diet; Lifestyle - and children; Exercise - 3 days per week and re-hab program; Seat Belt Use - always; Occupation - retired; Place of - [place]; ____ REVIEW OF SYSTEMS GENERAL weight gain of approximately 25 lbs INTEGUMENTARY denies any change in hair or nails, rashes, or skin lesions. EYES wears eye glasses/contact lenses EARS, NOSE, THROAT, MOUTH denies any hearing loss, epistaxis, hoarseness or difficulty speaking. RESPIRATORY denies dyspnea, snoring, cough, wheezing or hemoptysis. CARDIOVASCULAR palpitations, edema ABDOMINAL denies ulcer disease, hematochezia or melena. MUSCULOSKELETAL denies any history of venous insufficiency, arthritic symptoms or back problems. NEUROLOGICAL denies any history of recurrent strokes, TIA, or seizure disorder. PSYCHIATRIC anxiety ENDOCRINE hyperlipidemia, weight gain HEMATOLOGICAL/IMMUNOLOGIC denies any food allergies, seasonal allergies, bleeding disorders. IMPRESSION/PLAN She had a number of questions today. We went through each of her medications. She is having some questionable muscle cramps. I am going to ask her to stop her Lipitor for two to three weeks and then restart it and see if that is causing a problem. If it is, we would probably switch her to low-dose Vytorin. She is doing well with her niacin, with rare flushing. She is tolerating all of her pills well otherwise. I am going to have her come back for a followup stress test. She is going to be leaving for the season and she wants to do it in 9 months. We will do her potassium level again then. Her lipids only need to be checked once a year since they have been normal. All of her questions were answered. Her biggest other issue, however, is that she has continued to gain weight. We talked about Josephine or [facility] exercise program. Total intellectual property counsel time 30 minutes, greater than 50% counseling. TODAYS ORDERS 1. Treadmill Nuclear Study 9 months 2. F/U with Jesús Almanaz, LUANA, ANP f/u nuc gxt, labs 3. Basic Metabolic Panel 9 months Guillermo Martinez M.D. documented in this encounter Plan of Treatment Not on filedocumented as of this encounter Visit Diagnoses Not on filedocumented in this encounter Care Teams Service Superintendent Relationship Specialty Start Date End Date Alicia Nice MD PCP - General Family Practice 08/25/12 6 Les Fair MD PCP - General Family Practice 08/23/15 12/29/15 [address] [place] [address] [facility] PCP - General 12/30/15 10/15/16 [address] [place] [address] None PCP - General 10/16/16 01/10/17 Allyson Pool PA PCP - General 04/27/17 [facility] [address] [place] [address] Guillermo Martinez MD MD Cardiology 11/15/17 [address] [place] [id number] documented as of this encounter
--- OUTSIDE RECORDS SUMMARY | 2022-02-21 10:35 | XMS_ITS | Encounter Summary ---
:1935 Author Organization [place] Address [address] [facility] [place] [address] Care Team Providers Name Role Phone Shawn Nice MD Primary Care Provider Unavailable Les Fair MD Primary Care Provider [facility] Primary Care Provider [phone] None Primary Care Provider Unavailable Allyson Pool Primary Care Provider Guillermo Martinez MD Unavailable Encounter Details Date Type Department Care Team Description 12/07/2003 Office Visit-[facility] Heart Unknown, Eugene nascimento MD [address] [address] Social History Tobacco Use Types Packs/Day Years Used Date Smoking Tobacco: Never Assessed Sex Assigned at Date Recorded Not on file documented as of this encounter Progress Notes Unknown, DoctorMD - 12/10/2003 10:06 AM CDT Progress Note Created by: Viridiana Lloyd N.P. DATE: 12/07/2003 FIDELIA LUNDBERG DATE OF : 1935 AGE: [age] years old Referring Physician: SHAWN NICE Referring Clinic: [facility] CURRENT DIAGNOSES 1. - CAD, 414.00 2. Hypertension-Essential (Benign), 401.1 3. - Hyperlipidemia, 272.4 4. Status post-PTCA, v45.82 5. Obesity-(<LT>100 ), 278.00 6. NV-Acute Anterior, 410.11 7. Ventricular tachycardia, 427.1 ALLERGIES Morphine, Vomiting MEDICATIONS 1. Lotrel 5 mg-20 mg, 1 p.o. q.d. 2. Niaspan ER 1000 mg, 1 p.o. qPM 3. Metoprolol Tartrate 50 Mg, 1/2 tab b.i.d. 4. Lipitor 80 mg, 1/2 tab qHS 5. Plavix 75 Mg, 1 p.o. q.d. 6. Dyazide 25 mg-37.5 mg, 1 p.o. q.d. 7. Aspir-Low 81 mg, 1 p.o. q.d. 8. Paxil 20 mg, 1/2 tab q.d. 9. Nitroglycerin 0.4 mg, PRN CHIEF COMPLAINTS F/u labs bp HISTORY OF PRESENT ILLNESS: Fidelia is a delightful 68-year-old female who presents to the [facility] today for a blood pressure check. She is patient of Dr. Martinez who recently saw her on 11/22/03 for routine follow-up. As you recall, she has a past medical history significant for myocardial infarction and coronary artery disease. She was found to have an elevation in her blood pressure at her last office visit at 174/90. It appears that it has slowly been creeping up over the past year or so. She was placed on Lotrel 5mg/20mg and taken off Lotensin. Fortunately this has made a significant improvement in her blood pressure contr ol. She does tell me that she had quite a stressful day and was surprised to see that her blood pressure was doing so well at 120/70 today. She has not taken it outside of the clinic. She has experienced no ill effects from the Lotrel such as increasing lower extremity edema or dizziness. Overall, she is doing well and has had no symptoms of angina. PAST HISTORY Past Medical Illnesses: hyperlipidemia, hypertension, obesity, cellulitis Past Cardiac Illnesses: coronary artery disease, S/P [...] April 2003 Left Ventricular Ejection Fraction: 40 SOCIAL HISTORY Alcohol Use - does not use alcohol; Smoking - does not smoke; Diet - caffeine use-3-4 per day, low sodium (less than 2 grams) and low fat Diet; Lifestyle - and children; Exercise - 3 days per week and re-hab program; Seat Belt Use - always; Occupation - retired; Place of - [place]; ____ REVIEW OF SYSTEMS GENERAL weight gain INTEGUMENTARY denies any change in hair or nails, rashes, or skin lesions. EYES wears eye glasses/contact lenses EARS, NOSE, THROAT, MOUTH denies any hearing loss, epistaxis, hoarseness or difficulty speaking. RESPIRATORY denies dyspnea, snoring, cough, wheezing or hemoptysis. CARDIOVASCULAR edema ABDOMINAL denies ulcer disease, hematochezia or melena. MUSCULOSKELETAL denies any history of venous insufficiency, arthritic symptoms or back problems. NEUROLOGICAL denies any history of recurrent strokes, TIA, or seizure disorder. PSYCHIATRIC anxiety controlled with medication ENDOCRINE hyperlipidemia HEMATOLOGICAL/IMMUNOLOGIC denies any food allergies, seasonal allergies, bleeding disorders. PHYSICAL EXAMINATION VITAL SIGNS: Blood Pressure: 120/70 Sitting, Left arm, large cuff Pulse- 60.00/min. Weight- 227.00 lbs. Height- 65.00 Temperature- .00 CONSTITUTIONAL cooperative, alert and oriented,well developed, well nourished, in no acute distress. SKIN warm and dry to touch, no [...] mild hemosiderin deposit due to varicose vein strip NEUROLOGICAL no gross motor deficits noted, affect appropriate, oriented to time, person and place. MEDICATIONS UPDATED TODAY: IMPRESSIONS/PLAN 1. Hypertension. This is very well controlled with a switch from Lotensin to Lotrel. Her blood pressure is noted to be 120/70. She will continue on this medication. A BMP was drawn prior to today's office visit and the results are not available as of yet. 2. She has not decided if she is going to stayon Niaspan or switch to Slo-Niacin. She will contact our office if she needs any new prescriptions. 3. She will follow-up with Dr. Martinez in one year. If she has any questions, concerns or problems prior to this, I have encouraged her to please contact us. Viridiana Lloyd N.P. documented in this encounter Plan of Treatment Not on filedocumented as of this encounter Visit Diagnoses Not on filedocumented in this encounter Care Teams Strategic Accounts Manager Relationship Specialty Start Date End Date Shawn Nice MD PCP - General Family Practice 08/25/12 6 Les Fair MD PCP - General Family Practice 08/23/15 12/29/15 [id number] [place] [address] [facility] PCP - General 12/30/15 10/15/16 [address] [place] [place], [place] [id number] None PCP - General 10/16/16 01/10/17 Allysno Pool PA PCP - General 04/27/17 [facility] [address] [place] [id number] Guillermo Martinez MD MD Cardiology 11/15/17 [address] [place] [phone] documented as of this encounter
--- OUTSIDE RECORDS SUMMARY | 2022-02-21 10:35 | XMS_ITS | Encounter Summary ---
:1935 Author Organization [place] Address [address] [facility] [place] [address] Care Team Providers Name Role Phone Shawn Nice MD Primary Care Provider Unavailable Les Fair MD Primary Care Provider [facility] Primary Care Provider [phone] Primary Care Provider Unavailable Allyson Pool Primary Care Provider Guillermo Martinez MD Unavailable Encounter Details Date Type Department Care Team Description 01/14/2003 Office Visit-[facility] Unknown, Eugene nascimento MD [address] [address] Social History Tobacco Use Types Packs/Day Years Used Date Smoking Tobacco: Never Assessed Sex Assigned at Date Recorded Not on file documented as of this encounter Progress Notes Unknown, DoctorMD - 01/19/2003 9:25 AM CDT Progress Note Created by: Guillermo Martinez M.D. DATE: 01/14/2003 FIDELIA LUNDBERG DATE OF : 1935 AGE: [age] years old Referring Physician: SHAWN NICE CURRENT DIAGNOSES 1. - CAD, 414.00 2. - Hyperlipidemia, 272.4 3. Status post-PTCA, v45.82 4. Obesity-(<LT>100 ), 278.00 5. Hypertension-Essential (Benign), 401.1 6. OH-Acute Anterior, 410.11 7. Ventricular tachycardia, 427.1 ALLERGIES Morphine, Vomiting MEDICATIONS 1. Niaspan ER 1000 mg, 1 p.o. qPM 2. Lisinopril/ HCT 20/12.5, 1 p.o. q.d. 3. Metoprolol Tartrate 50 Mg, 1/2 tab b.i.d. 4. Aspir-Low 81 mg, 1 p.o. q.d. 5. Plavix 75 mg, 1 p.o. q.d. 6. Folgard Rx 2.2 mg, 1 p.o. q.d. 7. Lipitor 40 mg, 1 p.o. qPM 8. Paxil 20 mg, 1/2 tab q.d. 9. Nitroglycerin 0.4 mg, PRN CHIEF COMPLAINTS Followup of Hypertension-Essential (Benign) HISTORY OF PRESENT ILLNESS Fidelia Lundberg returns for follow-up of her multiple cardiac problems. This was a rather prolonged, greater than 45 minute visit because of a number of outstanding issues. This patient had a remote lateral myocardial infarction some 20 years ago. She had some unaddressed risk factors including lipids and blood pressure, etc. Approximately three months ago she had an anterior wall OH complicated by a V-fib cardiac arrest. She was brought to the heart catheterization lab. It showed a severe proximal left circumflex lesion of 80%. The main OM vessel, which was the bulk of her circumflex system, was occluded and that was probably her old heart attack. Her right coronary artery had scattered 50 to 60% narrowing. Her LAD had moderate disease proximally and a severe mid-vessel narrowing. This was the infarct vessel. Because of marked tortuosity, however, a stent could not be placed. Only balloon angioplasty. She had a reduced ejection fraction. The patient had some nonsustained ventricular tachycardia right after her myocardial infarction. She was seen by the electrophysiology service. She had no further ventricular tachycardia and, in fact, a Holter monitor done as an outpatient showed some PACs andvery brief SVT, but no ventricular tachycardia. It was felt at this point that she did not need EP study or defibrillator. Since her angioplasty, she has absolutely no angina. We reviewed her stress test done a few weeks ago. It shows her previous anterior and lateral infarct, but no ischemia which isquite reassuring. Her lipid profile has been abnormal and the last lipid check in our office really does not make any sense. I am going to recommend that she get an NMR lipid profile in approximately three months. PAST HISTORY Past Medical Illnesses: hyperlipidemia, hypertension, obesity, cellulitis Past Cardiac Illnesses: coronary artery disease, S/P myocardial infarction-anterior, VF arrest with OH, NSVT immed after OH,Lat OH 1980, Ant OH (Vfib) 10-13 Cath-PTCA LAD(too tortuous for stent), 100%Lcx-OM, 50-60% RCA, PAC, PAT-non sust Surgical Procedures: appy, mario, tonsillectomy, BHARAT, varicose vein strip Cardiology Procedures-Invasive: cardiac cath (left) November 2002 Cardiology Procedures-Noninvasive: holter monitor November 2002, myocardial perfusion imaging (Nuclear) December 2002 Left Ventricular Ejection Fraction: 64% PHYSICAL EXAMINATION VITAL SIGNS: Blood Pressure: 132/78 Sitting, Left arm, large cuff 180/90 Retaken by Pulse- 66.00/min. Weight- 230.00 lbs. Height- .00 Temperature- .00 CONSTITUTIONAL cooperative, alert and oriented,well [...] time, person and place. MEDICATIONS UPDATED TODAY: Niaspan ER 1000 mg, 1 p.o. qPM, #30 Lisinopril/ HCT 20/12.5, 1 p.o. q.d., #30 Metoprolol Tartrate 50 Mg, 1/2 tab b.i.d., #30 IMPRESSIONS/PLAN The patient participated in cardiac rehab. Her heart rate was in the 30 to 40 range. I am going to decrease her metoprolol to 25 mg b.i.d. I would like her to be on some beta rosy if at all possiblebecause of her history of ventricular tachycardia, her ischemic cardiomyopathy and her blood pressure. The other issue is that her blood pressure is highly variable, running from normal to very high with minimal excitement. I am going to switch her from lisinopril to Zestoretic, however, we have to bevery careful in this patient that her potassium level remains firmly in the normal range. When she had her V-fib arrest with her heart attack, her potassium level was slightly low, possibly because of the Zestoretic. I am using a lower dose of the diuretic here, however. If her blood pressure does notremain controlled on the Zestoretic, rather than increase the dose which would increase the diuretic, I would probably switch her fro Zestril and Zestoretic to Lotensin and then add Dyazide or Aldactone if a diuretic is not needed. One concern I have is that she has chronic peripheral edema from her varicose vein surgery and the Norvasc component of the Lotrel may make that worse, but I do want her blood pressure well controlled given that she has rather severe three-vessel coronary disease. We willrepeat a stress test in three months. If it shows any new ischemia, she will have a repeat heart cath eterization and will need to go onto bypass surgery. I would not recommend repeat percutaneous intervention of the LAD since we know it cannot be stented. The patient is working aggressively on diet and exercise. She has actually lost 20 pounds which is to her good credit. I will have the patient comeback for electrolytes in three weeks and see our nurse practitioner in one month for follow-up to review those values. TODAYS ORDERS 1. Basic Metabolic Panel 3 weeks 2. NMR LipoProfile 3 months 3. Treadmill Nuclear Study 3 months 4. Return Visit 4 months f/u bp, nmr, nuc gxt, Guillermo Martinez M.D. <B><FONT FACE=System> cc:Shawn Nice M.D. documented in this encounter Plan of Treatment Not on filedocumented as of this encounter Visit Diagnoses Not on filedocumented in this encounter Care Teams Child Support Agent Relationship Specialty Start Date End Date Shawn Nice MD PCP - General Family Practice 08/25/12 6 Les Fair MD PCP - General Family Practice 08/23/15 12/29/15 [address] [place] [address] [facility] PCP - General 12/30/15 10/15/16 [address] [place], [place] [id number] None PCP - General 10/16/16 01/10/17 Allyson Pool PA PCP - General 04/27/17 [facility] [address] [place] [id number] Guillermo Martinez MD MD Cardiology 11/15/17 [address] [place] [phone] documented as of this encounter
--- OUTSIDE RECORDS SUMMARY | 2022-02-21 10:35 | XMS_ITS | Encounter Summary ---
:1935 Author Organization [place] Address [address] [facility] [place] [address] Care Team Providers Name Role Phone Shawn Nice MD Primary Care Provider Unavailable Les Fair MD Primary Care Provider [facility] Primary Care Provider [phone] Primary Care Provider Unavailable Allyson Pool Primary Care Provider Guillermo Martinez MD Unavailable Encounter Details Date Type Department Care Team Description 10/28/2006 Office Visit-[facility] Heart Saw Martinez, Clinic Kar[facility] [address] [facility] [address] [facility] [address] [place] [phone] [place] [phone] (Wo rk) Social History Tobacco Use Types Packs/Day Years Used Date Smoking Tobacco: Never Assessed Sex Assigned at Date Recorded Not on file documented as of this encounter Progress Notes Guillermo Martinez MD - 10/29/2006 11:07 AM CDT Progress Note Created by: Guillermo Martinez M.D. DATE: 10/28/2006 FIDELIA LUNDBERG DATE OF : 1935 AGE: [age] years old Referring Physician: SHAWN NICE Referring Clinic: [facility] CURRENT DIAGNOSES 1. Hypertension-Essential (Benign), 401.1 2. - Hyperlipidemia, 272.4 3. Status post-PTCA, V45.82 4. HI-Acute Anterior, 410.11 5. Ventricular tachycardia, 427.1 6. - CAD, 414.00 7. Obesity-(<LT>100 ), 278.00 ALLERGIES lipitor-myalgias Morphine, Vomiting MEDICATIONS (prior to changes made today) 1. Aspir-Low 81 mg, 1 p.o. q.d. 2. Paxil 10 mg, 1 p.o. q.d. 3. Lotrel 5 mg - 40 mg, 1 p.o. q.d. 4. Dyazide 25 Mg-37.5 Mg, 1 p.o. q.d. 5. Crestor 10 Mg, 1 p.o. q.d. 6. Metoprolol Tartrate 50 Mg, 1/2 tablet in am and 1 tablet in pm 7. Nitroglycerin 0.4 Mg, Take as Directed 8. Plavix 75 Mg, 1 p.o. q.d. CHIEF COMPLAINTS F/u visit HISTORY OF PRESENT ILLNESS Fidelia Lundberg returns for followup. She is a delightful 70-year-old female. She has known coronary disease, having had a myocardial infarction more than 20 years ago in the circumflex territory. We mether in 2002 when she had an anterior wall infarct complicated by V fib cardiac arrest. Heart cath showed a chronically occluded circumflex marginal and severe LAD disease. We angioplastied the LAD. It was too tortuous to place a stent at that point. Her right coronary artery has 50% narrowing. She didhave a followup angiogram in 2005 which showed stable anatomy (a stress test that showed some anterior ischemia). The patient has done well. I do notice that her blood pressure is running high normal. She states at her other doctor's office it was 138 systolic. We get between 140-146 systolic. Given that she has extensive disease, I think this is not enough blood pressure control. I am going to increase her Lotrel from 5/20 up to 5/40. Interesting to note, however, is she is on generic Lotrel and one has to wonder if that might be part of the issue. Her lipids were reviewed today. Her HDL is 50, her LDL is 73, and her triglycerides are in the 80s. This is acceptable. She was seen in an [facility] for dizziness which sounds like inner ear. She was prescribed what sounds like Antivert. She has had no further recurrence of that problem. PAST HISTORY Past Medical Illnesses: hyperlipidemia, hypertension, obesity, cellulitis, benign breast bx, lung nodule (followed by CT perpmd), varicose vein Past Cardiac Illnesses: coronary artery disease, S/P myocardial infarction-anterior, VF arrest with HI, NSVT immed after HI,Lat HI 1980, Ant HI (Vfib) 10-13 Cath-PTCA LAD(too tortuous for stent), [...] Occupation - retired; Residence - lives with ;Place of - [place]; REVIEW OF SYSTEMS GENERAL weight gain, weight loss INTEGUMENTARY denies any change in hair or nails, rashes, or skin lesions. EYES wears eye glasses/contact lenses EARS, NOSE, THROAT, MOUTH denies any hearing loss, epistaxis, hoarseness or difficulty speaking. RESPIRATORY denies dyspnea, snoring, cough, wheezing or hemoptysis. CARDIOVASCULAR edema, severe varicosities ABDOMINAL denies ulcer disease, hematochezia or melena. MUSCULOSKELETAL denies any history of venous insufficiency, arthritic symptoms or back problems. NEUROLOGICAL denies any history of recurrent strokes, TIA, or seizure disorder. PSYCHIATRIC denies any history of depression, substance abuse or change in cognitive functions. ENDOCRINE hyperlipidemia, weight loss HEMATOLOGICAL/IMMUNOLOGIC medication allergies PHYSICAL EXAMINATION VITAL SIGNS: Blood Pressure: 140/78 Sitting, Right arm, large cuff 146/70 Retaken by Pulse- 62.00/min. Weight- 244.40 lbs. Height- 65.00 Temperature- .00 CONSTITUTIONAL cooperative [...] hemosiderin deposit due to varicose vein strip, 2+ edema, extensive varicose veins legs NEUROLOGICAL no gross motor deficits noted, affect appropriate, oriented to time, person and place. MEDICATIONS UPDATED/STARTED TODAY: Paxil 10 mg, 1 p.o. q.d., DIRECTED Lotrel 5 mg - 40 mg, 1 p.o. q.d., #30 or #100 Dyazide 25 Mg-37.5 Mg, 1 p.o. q.d., #30 Crestor 10 Mg, 1 p.o. q.d., 30 Metoprolol Tartrate 50 Mg, 1/2 tablet in am and 1 tablet in pm, #135 Nitroglycerin 0.4 Mg, Take as Directed, #25 Plavix 75 Mg, 1 p.o. q.d., #30 MEDICATIONS REFILLED/STOPPED TODAY: Crestor 10 mg 1 p.o. q.d. 30 Refill, Lotrel 5 Mg-20 Mg 1 p.o. q.d. #30 Refill, Plavix 75 Mg 1 p.o. q.d. #30 Refill, Metoprolol Tartrate 50 Mg 1/2 tablet in am and 1 tablet in pm #135 Refill, Nitroglycerin 0.4 Mg Take as Directed #25 Refill and Dyazide 25 Mg-37.5 Mg 1 p.o. q.d. #30 Refill IMPRESSIONS/PLAN I will see her back in one year. I am going to encourage her to get exercise, although she had some back problems which are limiting her ability to exercise and as a result her weight may have continued to go up. She also was identified with a lung nodule. Dr. Nice's office is following that. Total consult time: 25 minutes, greater than 50% counseling. This includes time to review her old records, discuss her medicines with her, to answer her questions about lipids. She also asked about fish oil which I thought was reasonable, although I told her that her triglycerides are normal which is the usual reason for that, and to adjust her blood pressure. TODAYS ORDERS 1. Lipid profile/ALT Today 2. Lipid profile/ALT 1 year 3. BMP 1 year 4. F/U with Guillermo Martinez MD 1 year Guillermo Martinez M.D. documented in this encounter Plan of Treatment Not on filedocumented as of this encounter Visit Diagnoses Not on filedocumented in this encounter Care Teams Printing Equipment Mechanic Relationship Specialty Start Date End Date Shawn Nice MD PCP - General Family Practice 08/25/12 6 Les Fair MD PCP - General Family Practice 08/23/15 12/29/15 [address] [place] [address] [facility] PCP - General 12/30/15 10/15/16 [address] [place] [address] None PCP - General 10/16/16 01/10/17 Allyson Pool PA PCP - General 04/27/17 [facility] [address] [place] [address] Guillermo Martinez MD MD Cardiology 11/15/17 [address] [facility] [address] [place] [phone] documented as of this encounter
--- OUTSIDE RECORDS SUMMARY | 2022-02-21 10:35 | XMS_ITS | Encounter Summary ---
:1935 Author Organization [place] Address [facility] [place] [address] Care Team Providers Name Role Phone Alicia Nice MD Primary Care Provider Unavailable Les Fair MD Primary Care Provider [facility] Primary Care Provider [phone] None Primary Care Provider Unavailable Allyson Pool Primary Care Provider Guillermo Martinez MD Unavailable Encounter Details Date Type Department Care Team Description 02/17/2003 Office Visit-[facility] Heart Unknown, Eugene nascimento MD [address] [id number] Social History Tobacco Use Types Packs/Day Years Used Date Smoking Tobacco: Never Assessed Sex Assigned at Date Recorded Not on file documented as of this encounter Progress Notes Unknown, DoctorMD - 02/19/2003 9:55 AM CDT Progress Note Created by: Marcelo Diaz NP DATE: 02/17/2003 WAQAR LUNDBERG DATE OF : 1935 AGE: [age] years old Referring Physician: ALICIA NICE CURRENT DIAGNOSES 1. - CAD, 414.00 2. Hypertension-Essential (Benign), 401.1 3. - Hyperlipidemia, 272.4 4. Status post-PTCA, v45.82 5. Obesity-(<LT>100 ), 278.00 6. 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 Ventricular tachycardia, 427.1 ALLERGIES Morphine, Vomiting MEDICATIONS 1. Niaspan ER 1000 mg, 1 p.o. qPM 2. Metoprolol Tartrate 50 Mg, 1/2 tab b.i.d. 3. Aspir-Low 81 mg, 1 p.o. q.d. 4. Plavix 75 mg, 1 p.o. q.d. 5. Folgard Rx 2.2 mg, 1 p.o. q.d. 6. Lipitor 40 mg, 1 p.o. qPM 7. Paxil 20 mg, 1/2 tab q.d. 8. Nitroglycerin 0.4 mg, PRN 9. Lotensin 20 mg, 1 p.o. q.d. CHIEF COMPLAINTS HISTORY OF PRESENT ILLNESS Waqar Lundberg is a pleasant 67-year-old female who is here today for follow-up regarding her hypertension. 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 Approximately four months ago she suffered an anterior wall myocardial infarction complicated by V fib cardiac arrest. She was brought to the catheterization lab and underwent balloon angioplastyof her LAD. There was moderate disease proximally and severe mid- vessel narrowing of this vessel which was the infarct vessel. However, this vessel had a significant amount of tortuosity and therefore a stent could not be placed. She had a reduced ejection fraction at that time of 35-40%. The patient had some nonsustained VT after her procedure which gradually decreased in frequency over the time shewas in the hospital. Follow-up Holter monitor done after her discharge demonstrated some PACs and very brief SVT but no ventricular tachycardia. It was felt that she did not need further EP studies or d efibrillator. The patient underwent repeat stress testing a few weeks ago. This showed a previous anterior and lateral infarct but no inducible ischemia. At her last office visit with Dr. Martinez in January, he changed her WILLIAMS inhibitor to Zestoretic 20/12.5 due to the fact that her blood pressure was not adequately controlled. The patient is tolerating this medication change well and has not had any problems with light-headedness or dizziness. Follow-up BMP demonstrated a normal potassium at 4.2,BUN 10 and creatinine of 1.0. The patient is not experiencing any angina at this time. She denies any shortness of breath or dyspnea on exertion. She also denies any problems with orthopnea or PND. The patient does have a chronic history of swelling of the ankles due to varicose veins. However, she does not feel this is any worse recently. The patient has lost approximately 25 pounds since her hospitalization and is intending upon losing more. The patient, however, as of late has not been exercisingas much and intensively as she knows she needs to. Unfortunately, the patient does continue to eat out a lot and we did spend a significant amount of time today discussing the necessary diet changes that will help her obtain her goal of weight loss. The remainder of this patient's past medical history and review of systems are noted below. PAST HISTORY Past Medical Illnesses: hyperlipidemia, hypertension, obesity, cellulitis Past Cardiac Illnesses: coronary artery disease, S/P myocardial infarction-anterior, VF arrest with AK, NSVT immed after AK,Lat AK 1980, Ant AK (Vfib) 10-13 Cath-PTCA LAD(too tortuous for stent), 100%Lcx-OM, 50-60% RCA, PAC, PAT-non sust Surgical Procedures: appy, mario, tonsillectomy, BHARAT, varicose vein strip Cardiology Procedures-Invasive: cardiac cath (left) November 2002 Cardiology Procedures-Noninvasive: holter monitor November 2002, myocardial perfusion imaging (Nuclear) December 2002 Left Ventricular Ejection Fraction: 64% FAMILY HISTORY: Father - Age 66, CHF; Mother - Age 63, arterial stenosis; CARDIAC RISK FACTORS Tobacco Abuse: negative; Family History of Heart Disease: strong family history of heart disease; Hyperlipidemia: negative; Hypertension: positive; Diabetes Mellitus: negative; Prior History of Heart Disease: positive; Obesity:positive; Sedentary Life Style:negative; Age:positive; Menopausal:positive _ SOCIAL HISTORY Alcohol Use - does not use alcohol; Smoking - does not smoke; Diet - caffeine use-3-4 per day, low sodium (less than 2 grams) and low fat Diet; Lifestyle - and children; Exercise - 3 days per week and re-hab program; Seat Belt Use - always; Occupation - retired; Place of - [place]; ____ REVIEW OF SYSTEMS GENERAL denies recent weight loss, weight gain, fever or chills or change in exercise tolerance. INTEGUMENTARY denies any change in hair or nails, rashes, or skin lesions. EYES wears eye glasses/contact lenses EARS, NOSE, THROAT, MOUTH denies any hearing loss, epistaxis, hoarseness or difficulty speaking. RESPIRATORY denies dyspnea, cough, wheezing or hemoptysis. CARDIOVASCULAR edema of the ankles ABDOMINAL denies ulcer disease, hematochezia or melena. MUSCULOSKELETAL denies any history of venous insufficiency, arthritic symptoms or back problems. NEUROLOGICAL denies any history of recurrent strokes, TIA, or seizure disorder. PSYCHIATRIC anxiety controlled with medication ENDOCRINE denies any history of weight change, heat/cold intolerance, polydipsia, or polyuria HEMATOLOGICAL/IMMUNOLOGIC denies any food allergies, seasonal allergies, bleeding disorders. PHYSICAL EXAMINATION VITAL SIGNS: Blood Pressure: 150/80 Sitting, Left arm, large cuff 140/78 Retaken by MANAGER CALL-after resting 5 mins Pulse- 52.00/min. Weight- 228.60 lbs. Height- 63.50 Temperature- .00 CONSTITUTIONAL cooperative, alert and oriented,well [...] time, person and place. MEDICATIONS UPDATED TODAY: Lotensin 20 mg, 1 p.o. q.d., #30 MEDICATION STOPPED TODAY: Lisinopril/ HCT 20/12.5 IMPRESSIONS/PLAN 1. Hypertension. Her blood pressure today on arrival was 150/80. When rechecked by myself 5 minutes later after having the patient rest for 5 minutes, it was 140/78. I do not feel that this is adequatecontrol of her blood pressure and therefore per Dr. Martinez's plan have changed her from Zestoretic to Lotensin 20mg a day. I will have her return to our clinic in three weeks time for reassessment of her blood pressure. If her blood pressure remains elevated at that time, we can either add in Dyazidefor better control of blood pressure or Aldactone if necessary. 2. Coronary artery disease. This is currently stable. The patient denies any signs or symptoms to suggest ischemia, significant arrhythmia or heart failure. Her other medications have remained unchanged. 3. Hyperlipidemia. This is being addressed by having a repeat NMR profile in April of this year. For the time being she will remain on her Niaspan and her Lipitor. 4. She will follow-up with Dr. Martinez in April of this year. A few days prior to the follow-up office visit, she will repeat another stress test. 5. She was encouraged to contact us should she have any problems or concerns prior to that time. Again, I will see her inthree weeks time. TODAYS ORDERS 1. Return Visit 3 weeks 2. Basic Metabolic Panel 3 weeks Marcelo Diaz NP documented in this encounter Plan of Treatment Not on filedocumented as of this encounter Visit Diagnoses Not on filedocumented in this encounter Care Teams Family Practice Physician Relationship Specialty Start Date End Date Alicia Nice MD PCP - General Family Practice 08/25/12 6 Les Fair MD PCP - General Family Practice 08/23/15 12/29/15 [id number] [place] [address] [facility] PCP - General 12/30/15 10/15/16 [address] [place] [address] None PCP - General 10/16/16 01/10/17 Allyson Pool PA PCP - General 04/27/17 [facility] [address] [place] [address] Guillermo Martinez MD MD Cardiology 11/15/17 [address] [place] [id number] documented as of this encounter
--- OUTSIDE RECORDS SUMMARY | 2022-02-21 10:35 | XMS_ITS | Encounter Summary ---
:1935 Author Organization [place] Address [address] [facility] [place] [address] Care Team Providers Name Role Phone Unavailable Primary Care Provider Unavailable Encounter Details Date Type Department Care Team Description 10/24/2005 Results Only [facility] EduardoCipriano [facility] Results [facility] [address] [facility] [facility] [address] [address] [place] [address] (Wo rk) Social History Tobacco Use Types Packs/Day Years Used Date Smoking Tobacco: Never Assessed Sex Assigned at Date Recorded Not on file documented as of this encounter Plan of Treatment Not on filedocumented as of this encounter Procedures Procedure Name Priority Date/Time Associated Comments Diagnosis HC INJ PROC FOR LT Routine 10/24/2005 9:28 Result s for this VENTRICULAR/ATRIAL AM CDT procedure are in ANGIOGRAPHY the results section. HC LEFT HEART Routine 10/24/2005 9:28 Results for this CATHETERIZATION AM CDT procedure ar e in the results section. documented in this encounter Results INJECT W CARD CATH LV/LA ANGIO (10/24/2005 9:28 AM CDT) Component Value Ref Test Analysis Performed At [facility] RemitDATA Method Time Signature IMAGECAST RADIOLOGY RESULT LEFT HEART CATHETERIZATION RES ULTS ?? cc: ??Dr. Alicia Nice ?? History: ?? This is a 69 year old female who had a lateral m yocardial infarction at age 44. I met her approximately 3 years ago. ? ?She was not on full prevention medication. ??She had an anterior wal l infarct complicated by Vfib cardiac arrest ??Dr. Schmitz took her to the Heart Catheterization Lab. Her circumflex marginal was occluded. ? ?That was her old heart attack from age 44. Her LAD had a severe lesio n. ??The vessel was tortuous and Dr. Schmitz could not get a stent giovanni n the LAD. ??Therefore he did balloon angioplasty only. ??The rizwan ent has actually been feeling well with no clinical angina. ??A surv eillance Nuclear stress test once again showed a fixed lateral infarc t, but now shows anterior infarct with a small amount of corina-infar ction ischemia which was not seen on the previous test. ??Because of her clinical history and because of the small amount of anterior ischemia, heart catheterization is now requested. ?? RESULTS ?? There is moderate calcification of the coronary tree. ?? Left Main Artery: The left main artery is short. It has mild calcification and only very mild irregularity. ?? Left Anterior Descending: ??The LAD is a large vessel. It is calcified. ??Proximally it has mild 30 to 35% narrowing. ??T he vessel is tortuous. ??This is as Dr. Schmitz described. ??In the mid LAD opposite the second diagonal vessel there is smooth narrowin g up to 50 to 60%. ??This is the area that was angioplastied by Dr. Schmitz. ?? There is then mild diffuse disease throughout the mid portio n of the LAD. ??The distal LAD is relatively normal with only mild irregularity. ?? The first diagonal vessel is a small vessel and relatively n ormal. ?? The second diagonal vessel is a small to moderate sized with mild irregularities. ??The third diagonal vessel is a very small vessel with a moderate ??ostial narrowing. ??Again, this vessel, fede blackburn, is quite small measuring under 1.5 mm. ? Left Circumflex: The left circumflex was a moderate sized sy stem. ??It gives off a very tiny OM1 which has a very high takeoff. The left circumflex then continues and gives off a moderate sized OM which feeds the lateral wall. ??There is a subtotal occlusion in t his segment. ?? Right Coronary Artery: ??The right coronary artery is a larg e vessel. ?? It is calcified. It has diffuse disease throughout its cours e. ??The ostium has a 50 to 60% narrowing. ??However, I believe there may be some aneurysmal dilatation immediately after this such that the reference vessel in comparing is overly large. ??This ostial RCA narrowing does not appear to be flow-limiting and no inferio r ischemia was seen on the Nuclear stress test. ??The proximal to mid RCA has diffuse 30 to 40% narrowing. ??The distal RCA also h as 30 to 40% narrowing. ??The CVA vessel is normal. The posterolatera l system has mild irregularity. ?? Left Ventriculogram: The LVEDP is 13. There is no mitral brice ve insufficiency. Visually estimated ejection fraction is 35%. ??The inferior wall function is normal. ??There is mild hypokinesi s along ?? the anterior wall, but not necessarily extending into the ap ex. ?? Therefore it is possible that what we were ??seeing is circu mflex territory hypokinesis on the PARDO projection. ?? Total contrast used was l00 cc. of Optiray 350; fluoro time l.l7 minutes. ?? Conscious sedation was used throughout the procedure under m y supervision. ?? CONCLUSION ?? 1. ??Three vessel coronary disease as described above with r educed ejection fraction. ?? 2. ??The patient had previously been evaluated and had an EP study. ?? She was not inducible. ??Therefore at this point ICD therapy is probably not indicated. ?? The left circumflex territory pro bably could be angioplastied, but we know that this has probably b een closed for more than 20 years and it shows a fixed infarct o n the Nuclear stress test. ??There is a moderate right coronary ar leon disease, but again no ischemia is identified and this narrow ing was previously described in 2003. ?? The LAD in the ??mid portio n does have 50 to 60% narrowing. ??This is probably where the ischemia w as seen. Given the patient has no clinical symptoms, this appears to be a smooth lesion, and the fact that we know a stent could not b e placed in this segment, I don't think it makes sense to angioplasty this territory. Although I could activate the lesion and not be a ble to bail myself out with a stent in a patient who has no symptom s. ? I would recommend continued medical therapy. ??We can contin ue to increase beta blockers as her blood pressure tolerates. ??We will do this as an outpatient. ??The patient will continue to need a surveillance Nuiclear stress test, and she may even need vy veillance angiograms to follow her multivessel disease to determine if she need to go to bypass surgery at any future date. ?? Specimen (Source) Anatomical Collection Method Collection Time Re ceived Time Location / / Volume Laterality 10/24/2005 9:28 AM CDT Hattie Almanza PROCEDURES Performing Organization Address City/State/ZIP Code Phon e Number RADIOLOGY RESULTS LEFT HEART CATH,PERCUTANEOUS (10/24/2005 9:28 AM CDT) Component Value Ref Test Analysis Performed At [facility] Benefitter Range Method Time Signature IMAGECAST RADIOLOGY RESULT LEFT HEART CATHETERIZATION RES ULTS ?? cc: ??Dr. Alicia Nice ?? History: ?? This is a 69 year old female who had a lateral m yocardial infarction at age 44. I met her approximately 3 years ago. ? ?She was not on full prevention medication. ??She had an anterior wal l infarct complicated by Vfib cardiac arrest ??Dr. Schmitz took her to the Heart Catheterization Lab. Her circumflex marginal was occluded. ? ?That was her old heart attack from age 44. Her LAD had a severe lesio n. ??The vessel was tortuous and Dr. Schmitz could not get a stent giovanni n the LAD. ??Therefore he did balloon angioplasty only. ??The rizwan ent has actually been feeling well with no clinical angina. ??A surv eillance Nuclear stress test once again showed a fixed lateral infarc t, but now shows anterior infarct with a small amount of corina-infar ction ischemia which was not seen on the previous test. ??Because of her clinical history and because of the small amount of anterior ischemia, heart catheterization is now requested. ?? RESULTS ?? There is moderate calcification of the coronary tree. ?? Left Main Artery: The left main artery is short. It has mild calcification and only very mild irregularity. ?? Left Anterior Descending: ??The LAD is a large vessel. It is calcified. ??Proximally it has mild 30 to 35% narrowing. ??T he vessel is tortuous. ??This is as Dr. Schmitz described. ??In the mid LAD opposite the second diagonal vessel there is smooth narrowin g up to 50 to 60%. ??This is the area that was angioplastied by Dr. Schmitz. ?? There is then mild diffuse disease throughout the mid portio n of the LAD. ??The distal LAD is relatively normal with only mild irregularity. ?? The first diagonal vessel is a small vessel and relatively n ormal. ?? The second diagonal vessel is a small to moderate sized with mild irregularities. ??The third diagonal vessel is a very small vessel with a moderate ??ostial narrowing. ??Again, this vessel, fede blackburn, is quite small measuring under 1.5 mm. ? Left Circumflex: The left circumflex was a moderate sized sy stem. ??It gives off a very tiny OM1 which has a very high takeoff. The left circumflex then continues and gives off a moderate sized OM which feeds the lateral wall. ??There is a subtotal occlusion in t his segment. ?? Right Coronary Artery: ??The right coronary artery is a larg e vessel. ?? It is calcified. It has diffuse disease throughout its cours e. ??The ostium has a 50 to 60% narrowing. ??However, I believe there may be some aneurysmal dilatation immediately after this such that the reference vessel in comparing is overly large. ??This ostial RCA narrowing does not appear to be flow-limiting and no inferio r ischemia was seen on the Nuclear stress test. ??The proximal to mid RCA has diffuse 30 to 40% narrowing. ??The distal RCA also h as 30 to 40% narrowing. ??The CVA vessel is normal. The posterolatera l system has mild irregularity. ?? Left Ventriculogram: The LVEDP is 13. There is no mitral brice ve insufficiency. Visually estimated ejection fraction is 35%. ??The inferior wall function is normal. ??There is mild hypokinesi s along ?? the anterior wall, but not necessarily extending into the ap ex. ?? Therefore it is possible that what we were ??seeing is circu mflex territory hypokinesis on the PARDO projection. ?? Total contrast used was l00 cc. of Optiray 350; fluoro time l.l7 minutes. ?? Conscious sedation was used throughout the procedure under m y supervision. ?? CONCLUSION ?? 1. ??Three vessel coronary disease as described above with r educed ejection fraction. ?? 2. ??The patient had previously been evaluated and had an EP study. ?? She was not inducible. ??Therefore at this point ICD therapy is probably not indicated. ?? The left circumflex territory pro bably could be angioplastied, but we know that this has probably b een closed for more than 20 years and it shows a fixed infarct o n the Nuclear stress test. ??There is a moderate right coronary ar leon disease, but again no ischemia is identified and this narrow ing was previously described in 2002. ?? The LAD in the ??mid portio n does have 50 to 60% narrowing. ??This is probably where the ischemia w as seen. Given the patient has no clinical symptoms, this appears to be a smooth lesion, and the fact that we know a stent could not b e placed in this segment, I don't think it makes sense to angioplasty this territory. Although I could activate the lesion and not be a ble to bail myself out with a stent in a patient who has no symptom s. ? I would recommend continued medical therapy. ??We can contin ue to increase beta blockers as her blood pressure tolerates. ??We will do this as an outpatient. ??The patient will continue to need a surveillance Nuiclear stress test, and she may even need vy veillance angiograms to follow her multivessel disease to determine if she need to go to bypass surgery at any future date. ?? Specimen (Source) Anatomical Collection Method Collection Time Re ceived Time Location / / Volume Laterality 10/24/2005 9:28 AM CDT Hattie Almanza PROCEDURES Performing Organization Address City/State/ZIP Code Phon e Number RADIOLOGY RESULTS documented in this encounter Visit Diagnoses Not on filedocumented in this encounter
--- OUTSIDE RECORDS SUMMARY | 2022-02-21 10:35 | XMS_ITS | Encounter Summary ---
:1935 Author Organization [place] Address [address] [facility] [place] [address] Care Team Providers Name Role Phone Alicia Nice MD Primary Care Provider Unavailable Les Fair MD Primary Care Provider [facility] Primary Care Provider [phone] None Primary Care Provider Unavailable Allyson Pool Primary Care Provider Guillermo Martinez MD Unavailable Encounter Details Date Type Department Care Team Description 11/01/2005 Office Visit-[facility] Heart Unknown, Eugene nascimento MD [address] [address] Social History Tobacco Use Types Packs/Day Years Used Date Smoking Tobacco: Never Assessed Sex Assigned at Date Recorded Not on file documented as of this encounter Progress Notes Unknown, DoctorMD - 12/14/2005 3:46 PM CDT Progress Note Created by: Jesús Almanza N.P. DATE: 11/01/2005 WAQAR LUNDBERG DATE OF : 1935 AGE: [age] years old Referring Physician: ALICIA NICE Referring Clinic: [facility] CURRENT DIAGNOSES 1. - CAD, 414.00 2. Hypertension-Essential (Benign), 401.1 3. - Hyperlipidemia, 272.4 4. Status post-PTCA, V45.82 5. Obesity-(<LT>100 ), 278.00 6. [place]-Acute Anterior, 410.11 7. Ventricular tachycardia, 427.1 ALLERGIES Morphine, Vomiting MEDICATIONS (including any changes made today) 1. Dyazide 25 Mg-37.5 Mg, 1 p.o. q.d. 2. Lipitor 80 Mg, 1/2 tab qHS 3. Niaspan Er 1000 Mg, 1 p.o. qPM 4. Lotrel 5 Mg-20 Mg, 1 p.o. q.d. 5. Plavix 75 Mg, 1 p.o. q.d. 6. Nitroglycerin 0.4 Mg, Take as Directed 7. Metoprolol Tartrate 50 Mg, 1/2 tablet in am and 1 tablet in pm 8. Aspir-Low 81 mg, 1 p.o. q.d. CHIEF COMPLAINTS F/u and post angiogram HISTORY OF PRESENT ILLNESS Waqar Lundberg is a pleasant 69-year-old female who returns to followup on her recent coronary angiogram. She had a lateral wall myocardial infarction at age 44 and a subsequent anterior myocardial infarction with a ventricular fibrillation arrest in 2002. Her left anterior descending was too tortuousto stent but she underwent angioplasty. The circumflex was occluded and her right coronary artery had 50 to 60% stenosis with a 60% diagonal occlusion and 30% residual narrowing in her left anterior descending. Her ejection fraction has been 35 to 40%. Recently, a nuclear stress test showed her old lateral wall myocardial infarction with a new [id number] sized reversible anterior defect, consistent with mild ischemia without infarction. Based on her history, she was taken to the catheterization lab for an angiogram. She has had an EP study done in the past, which was non-inducible. Her recent angiogram, thankfully, did not show any significant changes in her disease. She continues to have aleft anterior descending restenosis at her angioplasty site in the range of 50 to 60%. Her circumflex continues to be occluded with nothing more than 50 to 60% right coronary artery stenosis. Her ejection fraction is 35%. Her right groin has healed well from her procedure. Her potassium was 3.5. Pre-pr ocedure, she is on a potassium-sparing diuretic in the form of Dyazide and does try to supplement her diet with potassium routinely. She has had recent issues with myalgias in her legs. She underwent an orthopedic workup, which was essentially negative for any particular joint concerns. This comes andgoes and, she feels, is somewhat dependent on the weather and her activity. She has bilateral lower extremity edema with varicosities and a history of vein stripping. Her total cholesterol in September was 138, HDL 54, LDL 65, ALT 26 on a combination of Lipitor and Niaspan. She is going to try to suspend her statin therapy the first part of November to see if this improves, and I have asked her to contact me. Dr. Martinez's suggestions were to increase her beta-rosy for optimal blood pressure control. In the past when she was on 50 mg b.i.d. of metoprolol tartrate, she had heart rates in the 30s and 40s and this was subsequently decreased. I will actually try the in between dose of 25 in the morning and 50 in the evening and I have asked her to check her heart rate and call me if it drops much below themid 50s. She is essentially without complaints today, and her examination is unremarkable and outlined below. PAST HISTORY Past Medical Illnesses: hyperlipidemia, hypertension, obesity, cellulitis, benign breast bx Past Cardiac Illnesses: coronary artery disease, S/P myocardial infarction-anterior, VF arrest with [place], NSVT immed after NH,Lat NH 1980, Ant NH (Vfib) 10-13 Cath-PTCA LAD(too tortuous for stent), [...] Ejection Fraction: 10/16-EF 35% by heart Cath SOCIAL HISTORY Alcohol Use - does not use alcohol; Smoking - does not smoke; Diet - caffeine use-3-4 per day, low sodium (less than 2 grams) and low fat Diet; Lifestyle - and children; Exercise - 3 days per week and re-hab program; Seat Belt Use - always; Occupation - retired; Residence - lives with ;Place of - [place]; REVIEW OF SYSTEMS GENERAL weight loss of [...] cognitive functions. ENDOCRINE hyperlipidemia, weight loss HEMATOLOGICAL/IMMUNOLOGIC denies any food allergies, seasonal allergies, bleeding disorders. PHYSICAL EXAMINATION VITAL SIGNS: Blood Pressure: 130/80 Sitting, Left arm, large cuff Pulse- 66.00/min. Weight- 244.00 lbs. Height- 65.00 Temperature- .00 CONSTITUTIONAL cooperative [...] and equal in all extremities, no bruits auscultated., right groin well healed EXTREMITIES & BACK chronic edema mild hemosiderin deposit due to varicose vein strip, 2+ edema NEUROLOGICAL no gross motor deficits noted, affect appropriate, oriented to time, person and place. MEDICATIONS UPDATED TODAY: Metoprolol Tartrate 50 Mg, 1/2 tablet in am and 1 tablet in pm, #135 IMPRESSION/PLAN: 1. Coronary artery disease, with a history of a lateral wall myocardial infarction at age 44, anterior wall in 2002 with a ventricular fibrillation arrest and left anterior descending angioplasty with a 60% restenosis in that area. This is a tortuous vessel and would need bypass surgery if it progresses in the future. Her right coronary artery has no more than 60% stenosis. Her circumflex is occluded. Ejection fraction is mildly reduced, but she has no symptoms of heart failure. She is currently stable in that regard. As I noted, I will increase her beta-blockers. She is aware of how to check her pulse, as is her and she will call me if her heart rate drops. Dr. Martinez suggests that she will need periodic surveillance stress tests and, perhaps, surveillance angiograms to keep abreast of any progression of her heart disease. 2. Hyperlipidemia, currently at goal on Lipitor with Niaspan. It is unclear if her intermittent muscle discomforts are from statin therapy. She will likely suspend her statin the first part of November and call me if her muscle aches are better. If so, I will try Crestor, perhaps, combined with Zetia, in addition to Niaspan. If her medications are changed, I will order a lipid profile before her visit with Dr. Martinez in the fall. 3. She runs relatively low potassiums on Dyazide therapy. I have encouraged her to ramp up her dietary intake of potassium given her history of ventricular arrhythmias. I will recheck a basic metabolic panel prior to her visit with Dr. Martinez in the fall. TODAYS ORDERS 1. Basic Metabolic Panel 4 months Jesús Almanza N.P. documented in this encounter Plan of Treatment Not on filedocumented as of this encounter Visit Diagnoses Not on filedocumented in this encounter Care Teams Hrbp Relationship Specialty Start Date End Date Alicia Nice MD PCP - General Family Practice 08/25/12 6 Les Fair MD PCP - General Family Practice 08/23/15 12/29/15 [address] [place] [address] [facility] PCP - General 12/30/15 10/15/16 [address] [place] [address] None PCP - General 10/16/16 01/10/17 Allyson Pool PA PCP - General 04/27/17 [facility] [address] [place] [address] Guillermo Martinez MD MD Cardiology 11/15/17 [address] [place] [id number] documented as of this encounter
--- OUTSIDE RECORDS SUMMARY | 2022-02-21 10:35 | XMS_ITS | Encounter Summary ---
:1935 Author Organization [place] Address [address] [facility] [place] [address] Care Team Providers Name Role Phone Alicia Nice MD Primary Care Provider Unavailable Les Fair MD Primary Care Provider Encounter Details Date Type Department Care Team Description 04/26/2003 Historic Results [facility] Heart Unknown, [facility] [address] [place] [address] Social History Tobacco Use Types Packs/Day Years Used Date Smoking Tobacco: Never Assessed Sex Assigned at Date Recorded Not on file documented as of this encounter Plan of Treatment Not on filedocumented as of this encounter Procedures Procedure Name Priority Date/Time Associated Diagnosis Comme nts NUCLEAR CARDIAC - HIM 04/26/2003 12:00 AM URBAN RENEWAL MANAGER SCAN - ARCHIVE documented in this encounter Results NUCLEAR CARDIAC - HIM SCAN - ARCHIVE (04/26/2003 12:00 AM URBAN RENEWAL MANAGER) Anatomical Region Laterality Modality Other Specimen (Source) Anatomical Location Collection Method / Collectio n Time Received Time / Laterality Volume 04/26/2003 Narrative This result has an attachment that is no t available. Provider Scan IMG NM ORDERABLES documented in this encounter Visit Diagnoses Not on filedocumented in this encounter Care Teams Rigging Supervisor Relationship Specialty Start Date End Date Alicia Nice MD PCP - General Family Practice 08/25/12 6 Les Fair MD PCP - General Family Practice 08/23/15 12/29/15 [address] [place] [address] documented as of this encounter
--- OUTSIDE RECORDS SUMMARY | 2022-02-21 10:35 | XMS_ITS | Encounter Summary ---
:1935 Author Organization [place] Address [facility] [address] Care Team Providers Name Role Phone Alicia Nice MD Primary Care Provider Unavailable Les Fair MD Primary Care Provider [facility] Primary Care Provider [phone] None Primary Care Provider Unavailable Allyson Pool Primary Care Provider Guillermo Martinez MD Unavailable Encounter Details Date Type Department Care Team Description 04/22/2006 Office Visit-[facility] Noble mandel, [facility] [place] Fink, STEAMFITTER CAREER LAW CLERK [id number] [facility] [address] [place] [address] [place] [id number] (Wo rk) Social History Tobacco Use Types Packs/Day Years Used Date Smoking Tobacco: Never Assessed Sex Assigned at Date Recorded Not on file documented as of this encounter Progress Notes Jesús Almanza, CHANGE CONTROL ANALYST - 04/27/2006 8:38 AM CST Progress Note Created by: Jesús Almanza, N.P. DATE: 04/22/2006 WAQAR LUNDBERG DATE OF : 1935 AGE: [age] years old Referring Physician: ALICIA NICE Referring Clinic: [facility] CURRENT DIAGNOSES 1. Hypertension-Essential (Benign), 401.1 2. - Hyperlipidemia, 272.4 3. Status post-PTCA, V45.82 4. [place]-Acute Anterior, 410.11 5. Ventricular tachycardia, 427.1 6. - CAD, 414.00 7. Obesity-(<LT>100 ), 278.00 ALLERGIES Morphine, Vomiting liptor-myalgias MEDICATIONS (including any changes made today) 1. Crestor 10 mg, 1 p.o. q.d. 2. Lotrel 5 Mg-20 Mg, 1 p.o. q.d. 3. Plavix 75 Mg, 1 p.o. q.d. 4. Metoprolol Tartrate 50 Mg, 1/2 tablet in am and 1 tablet in pm 5. Nitroglycerin 0.4 Mg, Take as Directed 6. Aspir-Low 81 mg, 1 p.o. q.d. 7. Dyazide 25 Mg-37.5 Mg, 1 p.o. q.d. CHIEF COMPLAINTS follow up lipids HISTORY OF PRESENT ILLNESS Waqar Lundberg is a pleasant 70-year-old female with known coronary artery disease and a previous ventricular fibrillation arrest. She has undergone a previous angioplasty to her LAD. This artery was tortuous and would not accept a stent. The circumflex is chronically occluded. The RCA has a 50% to 60%stenosis. Nuclear stress testing this year revealed a small area of anterior ischemia with questionable symptoms of angina. She went on for a heart cath showing stable anatomy. No interventions were performed. She denies any angina today. She was having muscle pain, which subsided off of Lipitor. She has been switched to Crestor therapy and is here today to review her lipid profile. Her pharmacist told her that Slo-Niacin should not be taken with Crestor, so she stopped this medication more than four or five weeks ago. We had her on niacin for a low HDL in the mid 30s at one point. Interestingly, her triglycerides today are 94. Total cholesterol: 139. HDL: Holding at 50. LDL: 70. Her previously HDL on Lipitor with niacin was 54. She exercises on an intermittent basis. She continues to be overweight. Her blood pressure today is slightly elevated. However, she has not taken her Lotrel as she thought she had to hold her medicines for her lipid profile. Her BMI is 40. She is otherwise without complaints today. She is on aspirin and Plavix likely lifelong. PAST HISTORY Past Medical Illnesses: hyperlipidemia, hypertension, obesity, cellulitis, benign breast bx Past Cardiac Illnesses: coronary artery disease, S/P myocardial infarction-anterior, VF arrest with [place], NSVT immed after [place],Lat [place] 1980, Ant [place] (Vfib) 10-13 Cath-PTCA LAD(too tortuous for stent), [...] Residence - lives with ;Place of - [place]; REVIEW OF SYSTEMS GENERAL weight gain, weight [...] allergies PHYSICAL EXAMINATION VITAL SIGNS: Blood Pressure: 148/82 Sitting, Right arm, large cuff Pulse- 72.00/min. Weight- 244.00 lbs. Height- 65.00 Temperature- .00 MEDICATION STOPPED TODAY: Niaspan Er 1000 Mg IMPRESSION/PLAN: 1. Coronary artery disease as noted above. She seems to be stable in terms of her angina. I would continue aspirin, Plavix, Lotrel, and beta-blockers. She likely will not need a stress test until 2007 as her previous one this year was abnormal and showed no changes and likely has LAD ischemia. 2. Hyperlipidemia with a history of a low HDL. She is at goal today on Crestor alone at 10 mg a day. Her myalgias have subsided. She may likely need prior authorization for this medication. I have asked her tocheck with her insurance company and let me know who I can contact to get this medicine approved. I told her that we [place]he[place] Hopeful ly her HDL will remain steady and she will not need niacin restarted. I have encouraged her to ramp up her exercise program as well and lose weight, which would also hopefully help her HDL profile and her LDL. 3. She is complaining today of feeling more cold than usual. I will order a TSH off of the labs that we carina today and forward this to her primary care. If this is abnormal, I will ask them to treat this accordingly. We will plan on seeing Ms. Lundberg [place] She will see at that point. I have ordered another lipid profile as well for the spring. TODAYS ORDERS 1. TSH Today-off of labs from today 2. F/U with Guillermo Martinez MD follow up cad and lipids-error 3. Lipid profile/ALT 5-6 months 4. F/U with Guillermo Martinez MD follow up lipids and htn Jesús Almanza N.P. documented in this encounter Plan of Treatment Not on filedocumented as of this encounter Visit Diagnoses Not on filedocumented in this encounter Care Teams Show Host Or Hostess Relationship Specialty Start Date End Date Alicia Nice MD PCP - General Family Practice 08/25/12 6 Les Fair MD PCP - General Family Practice 08/23/15 12/29/15 [address] [place] [address] [facility] PCP - General 12/30/15 10/15/16 [address] [place] [address] None PCP - General 10/16/16 01/10/17 Allyson Pool PA PCP - General 04/27/17 [facility] [address] [place] [address] Guillermo Martinez MD MD Cardiology 11/15/17 [address] [facility] [address] [place] [phone] documented as of this encounter
--- OUTSIDE RECORDS SUMMARY | 2022-02-21 10:35 | XMS_ITS | Encounter Summary ---
:1935 Author Organization [place] Address [address] [place] [address] Care Team Providers Name Role Phone Shawn Nice MD Primary Care Provider Unavailable Les Fair MD Primary Care Provider [facility] Primary Care Provider [phone] None Primary Care Provider Unavailable Allyson Pool Primary Care Provider Guillermo Martinez MD Unavailable Encounter Details Date Type Department Care Team Description 01/14/2003 Office Visit-[facility] Heart Unknown, Eugene nascimento MD [address] [address] Social History Tobacco Use Types Packs/Day Years Used Date Smoking Tobacco: Never Assessed Sex Assigned at Date Recorded Not on file documented as of this encounter Progress Notes Unknown, DoctorMD - 01/14/2003 12:10 PM CDT Progress Note Created by: Guillermo Martinez M.D. DATE: 01/14/2003 FIDELIA LUNDBERG DATE OF : 1935 AGE: [age] years old Referring Physician: SHAWN NICE CURRENT DIAGNOSES 1. - CAD, 414.00 2. - Hyperlipidemia, 272.4 3. Status post-PTCA, v45.82 4. Obesity-(<LT>100 ), 278.00 5. Hypertension-Essential (Benign), 401.1 6. [place]-Acute Anterior, 410.11 7. Ventricular tachycardia, 427.1 ALLERGIES [...] of Hypertension-Essential (Benign) HISTORY OF PRESENT ILLNESS TODAYS ORDERS 1. Basic Metabolic Panel 3 weeks 2. NMR LipoProfile 3 months 3. Treadmill Nuclear Study 3 months 4. Return Visit 4 months f/u bp, nmr, nuc gxt, 5. Return Visit 1 month with HORSE SHOER f/u bp bmp Guillermo Martinez M.D. Electronically signed by [facility], [employer] Data Conversion at 09/25/2013 6:26 AM CDT documented in this encounter Plan of Treatment Not on filedocumented as of this encounter Visit Diagnoses Not on filedocumented in this encounter Care Teams Wood Shingle Roofer Relationship Specialty Start Date End Date Shawn Nice MD PCP - General Family Practice 08/25/12 6 Les Fair MD PCP - General Family Practice 08/23/15 12/29/15 [address] [place] [address] [facility] PCP - General 12/30/15 10/15/16 [address] [place] [address] None PCP - General 10/16/16 01/10/17 Allyson Pool PA PCP - General 04/27/17 [facility] [address] [place] [id number] Guillermo Martinez MD MD Cardiology 11/15/17 [address] [place] [phone] documented as of this encounter
--- OUTSIDE RECORDS SUMMARY | 2022-02-21 10:35 | XMS_ITS | Encounter Summary ---
:1935 Author Organization [place] Address [address] [facility] [place] [address] Care Team Providers Name Role Phone Alicia Nice MD Primary Care Provider Unavailable Les Fair MD Primary Care Provider Encounter Details Date Type Department Care Team Description 11/08/2002 Historic Results [facility] Heart Unknown, [facility] [address] [place] [address] Social History Tobacco Use Types Packs/Day Years Used Date Smoking Tobacco: Never Assessed Sex Assigned at Date Recorded Not on file documented as of this encounter Plan of Treatment Not on filedocumented as of this encounter Procedures Procedure Name Priority Date/Time Associated Diagnosis Comme nts CARDIAC CATH - HIM SCAN 11/08/2002 12:00 AM CDT - ARCHIVE documented in this encounter Results CARDIAC CATH - HIM SCAN - ARCHIVE (11/08/2002 12:00 AM CDT) Anatomical Region Laterality Modality Other Specimen (Source) Anatomical Location Collection Method / Collectio n Time Received Time / Laterality Volume 11/08/2002 Narrative This result has an attachment that is no t available. Provider Scan CV ELECTROPHYSIOLOGY ORDERAB LES documented in this encounter Visit Diagnoses Not on filedocumented in this encounter Care Teams Customer Equipment Engineer Relationship Specialty Start Date End Date Alicia Nice MD PCP - General Family Practice 08/25/12 6 Les Fair MD PCP - General Family Practice 08/23/15 12/29/15 [address] [place] [address] documented as of this encounter
--- OUTSIDE RECORDS SUMMARY | 2022-02-21 10:35 | XMS_ITS | Encounter Summary ---
:1935 Author Organization [place] Address [address] [facility] [address] Care Team Providers Name Role Phone Alicia Nice MD Primary Care Provider Unavailable Les Fair MD Primary Care Provider Encounter Details Date Type Department Care Team Description 10/24/2005 Historic Results [facility] Heart Unknown, [facility] [address] [place] [address] Social History Tobacco Use Types Packs/Day Years Used Date Smoking Tobacco: Never Assessed Sex Assigned at Date Recorded Not on file documented as of this encounter Plan of Treatment Not on filedocumented as of this encounter Procedures Procedure Name Priority Date/Time Associated Diagnosis Comme nts CARDIAC CATH - HIM SCAN 10/24/2005 12:00 AM CDT - ARCHIVE documented in this encounter Results CARDIAC CATH - HIM SCAN - ARCHIVE (10/24/2005 12:00 AM CDT) Anatomical Region Laterality Modality Other Specimen (Source) Anatomical Location Collection Method / Collectio n Time Received Time / Laterality Volume 10/24/2005 Narrative This result has an attachment that is no t available. Provider Scan CV ELECTROPHYSIOLOGY ORDERAB LES documented in this encounter Visit Diagnoses Not on filedocumented in this encounter Care Teams Plasma Table Operator Relationship Specialty Start Date End Date Alicia Nice MD PCP - General Family Practice 08/25/12 6 Les Fair MD PCP - General Family Practice 08/23/15 12/29/15 [address] [place] [address] documented as of this encounter
--- OUTSIDE RECORDS SUMMARY | 2022-02-21 10:35 | XMS_ITS | Encounter Summary ---
:1935 Author Organization [place] Address [address] [facility] [place] [address] Care Team Providers Name Role Phone Unavailable Primary Care Provider Unavailable Encounter Details Date Type Department Care Team Description 10/24/2005 Historic Results INTERFACED REPORT Interface, Ansley bahena MD Social History Tobacco Use Types Packs/Day Years Used Date Smoking Tobacco: Never Assessed Sex Assigned at Date Recorded Not on file documented as of this encounter Plan of Treatment Not on filedocumented as of this encounter Procedures Procedure Name Priority Date/Time Associated Diagnosis Comme nts EKG 12 LEAD Routine 10/24/2005 7:20 AM Results f or this CDT procedure are i n the results section . documented in this encounter Results EKG 12 LEAD (10/24/2005 7:20 AM CDT) Component Value Ref Range Test Analysis Performed Pathologis t Method Time At Signature Ventricular Rate 65 BPM RADIOLOGY RESULTS Atrial Rate 65 BPM RADIOLOGY RESULTS FL Interval 210 ms RADIOLOGY RESULTS QRS Duration 100 ms RADIOLOGY RESULTS QT 402 ms RADIOLOGY RESULTS QTc 418 ms RADIOLOGY RESULTS P [place] 27 degrees RADIOLOGY RESULTS R AXIS -17 degrees RADIOLOGY RESULTS T [place] 22 degrees RADIOLOGY RESULTS Interpretation Unconfirmed report - interpr etation of this ECG is computer generated - see RADIOLOGY ECG medical record for final interpretation RESULTS Sinus rhythm with 1st degree A-V block Low voltage QRS Septal infarct , age undetermined Abnormal ECG When compared with ECG of 16:09, QRS duration has increased Nonspecific T wave abnormality no longer evident in Lateral leads Specimen Anatomical Collection Method Collection Time Receive d Time (Source) Location / / Volume Laterality 10/24/2005 7:20 AM 06/14/200 6 8:03 CDT AM CDT Transcripton Interface ECG ORDERABLES Performing Organization Address City/State/ZIP Code Phon e Number RADIOLOGY RESULTS documented in this encounter Visit Diagnoses Not on filedocumented in this encounter
--- OUTSIDE RECORDS SUMMARY | 2022-02-21 10:35 | XMS_ITS | Encounter Summary ---
:1935 Author Organization [place] Address [address] [facility] [place] [address] Care Team Providers Name Role Phone Alicia Nice MD Primary Care Provider Unavailable Les Fair MD Primary Care Provider Encounter Details Date Type Department Care Team Description 11/18/2002 Historic Results [facility] Heart Unknown, [facility] [address] [place] [address] Social History Tobacco Use Types Packs/Day Years Used Date Smoking Tobacco: Never Assessed Sex Assigned at Date Recorded Not on file documented as of this encounter Plan of Treatment Not on filedocumented as of this encounter Procedures Procedure Name Priority Date/Time Associated Diagnosis Comme nts HOLTER MONITOR CARDIAC 11/18/2002 12:00 AM CDT - HIM SCAN - ARCHIVE documented in this encounter Results HOLTER MONITOR CARDIAC - HIM SCAN - ARCHIVE (11/18/2002 12:00 AM CDT) Specimen (Source) Anatomical Location Collection Method / Collectio n Time Received Time / Laterality Volume 11/18/2002 Narrative This result has an attachment that is no t available. Provider Scan ECG ORDERABLES documented in this encounter Visit Diagnoses Not on filedocumented in this encounter Care Teams Salad Chef Relationship Specialty Start Date End Date Alicia Nice MD PCP - General Family Practice 08/25/12 6 Les Fair MD PCP - General Family Practice 08/23/15 12/29/15 [address] [place] [address] documented as of this encounter
--- OUTSIDE RECORDS SUMMARY | 2022-02-21 10:35 | XMS_ITS | Encounter Summary ---
:1935 Author Organization [place] Address [address] [place] [address] Care Team Providers Name Role Phone Alicia Nice MD Primary Care Provider Unavailable Les Fair MD Primary Care Provider [facility] Primary Care Provider [phone] None Primary Care Provider Unavailable Allyson Pool Primary Care Provider Guillermo Martinez MD Unavailable Encounter Details Date Type Department Care Team Description 04/29/2003 Office Visit-[facility] Heart Unknown, [place] MD azam [address] [address] Social History Tobacco Use Types Packs/Day Years Used Date Smoking Tobacco: Never Assessed Sex Assigned at Date Recorded Not on file documented as of this encounter Progress Notes Unknown, DoctorMD - 05/04/2003 11:44 AM CST Progress Note Created by: Guillermo Martinez M.D. DATE: 04/29/2003 WAQAR LUNDBERG DATE OF : 1935 AGE: [age] years old Referring Physician: ALICIA NICE CURRENT DIAGNOSES 1. - CAD, 414.00 2. Hypertension-Essential (Benign), 401.1 3. - Hyperlipidemia, 272.4 4. Status post-PTCA, v45.82 5. Obesity-(<LT>100 ), 278.00 6. PA-Acute Anterior, 410.11 7. Ventricular tachycardia, 427.1 ALLERGIES Morphine, Vomiting MEDICATIONS 1. Niaspan ER 1000 mg, 1 p.o. qPM 2. Metoprolol Tartrate 50 Mg, 1/2 tab b.i.d. 3. Dyazide 25 mg-37.5 mg, 1 p.o. q.d. 4. Aspir-Low 81 mg, 1 p.o. q.d. 5. Plavix 75 mg, 1 p.o. q.d. 6. Folgard Rx 2.2 mg, 1 p.o. q.d. 7. Lipitor 40 mg, 1 p.o. qPM 8. Paxil 20 mg, 1/2 tab q.d. 9. Nitroglycerin 0.4 mg, PRN 10. Lotensin 20 mg, 1 p.o. q.d. CHIEF COMPLAINTS F/u HISTORY OF PRESENT ILLNESS Waqar returns in follow up of her coronary disease. She reports no heart symptoms since we last saw her. Her NMR lipid profile preliminary came back excellent and she is well within goal. Her nuclearstress test shows old lateral infarct, a small anterior infarct, no ischemia and no ventricular tachycardia. 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 She had an anterior infarct approximately six months ago complicated by ventricular fibrillation and cardiac arrest. She had a very tortuous left anterior descending artery and only PTCA could be performed, no stenting.She had moderate multivessel disease, which we are treating medically. We commented that if she developed progressive left anterior descending disease then she will need to go to bypass surgery. Fortunately, as I mentioned, she has no symptoms and her stress test shows no ischemia. PAST HISTORY Past Medical Illnesses: [...] (Nuclear) April 2003 Left Ventricular Ejection Fraction: 40% Her blood pressure is excellent today in the 130 range over 60 to 70. I will keep her on her same medications. Her electrolyte panel, including potassium was normal. She is going to [place] for the winter. We will see her back in six months at which time I will repeat a lipid profile. Her medications will remain the same. Total consult time: 25 minutes. TODAYS ORDERS 1. Return Visit 6 months 2. Lipid profile/ALT 6 months Guillermo Martinez M.D. documented in this encounter Plan of Treatment Not on filedocumented as of this encounter Visit Diagnoses Not on filedocumented in this encounter Care Teams Kinesiotherapist Relationship Specialty Start Date End Date Alicia Nice MD PCP - General Family Practice 08/25/12 6 Les Fair MD PCP - General Family Practice 08/23/15 12/29/15 [address] [place] [address] [facility] PCP - General 12/30/15 10/15/16 [address] [place], [place] [id number] None PCP - General 10/16/16 01/10/17 Allyson Pool PA PCP - General 04/27/17 [facility] [address] [place] [address] Guillermo Martinez MD MD Cardiology 11/15/17 [address] [place] [address] documented as of this encounter
--- OUTSIDE RECORDS SUMMARY | 2022-02-21 10:35 | XMS_ITS | Encounter Summary ---
:1935 Author Organization [place] Address [address] [facility] [place] [address] Care Team Providers Name Role Phone Alicia Nice MD Primary Care Provider Unavailable Les Fair MD Primary Care Provider [facility] Primary Care Provider [phone] None Primary Care Provider Unavailable Allyson Pool Primary Care Provider Guillermo Martinez MD Unavailable Encounter Details Date Type Department Care Team Description 11/04/2007 Office Visit-[facility] Heart Saw Martinez, [facility] Karina EVANGELISTA [address] [facility] [address] [facility] [address] [place] [address] [place] [address] (Wo rk) Social History Tobacco Use Types Packs/Day Years Used Date Smoking Tobacco: Never Assessed Sex Assigned at Date Recorded Not on file documented as of this encounter Progress Notes Guillermo Martinez MD - 11/05/2007 3:49 PM CDT Progress Note Created by: Guillermo Martinez M.D. DATE: 11/04/2007 WAQAR LUNDBERG DATE OF : 1935 AGE: [age] years old Referring Physician: ALICIA NICE Referring Clinic: [facility] CURRENT DIAGNOSES 1. Hypertension-Essential (Benign), 401.1 2. - Hyperlipidemia, 272.4 3. Status post-PTCA, V45.82 4. [place]-Acute Anterior, 410.11 5. Ventricular tachycardia, 427.1 6. - CAD, 414.00 7. Obesity-(<LT>100 ), 278.00 ALLERGIES lipitor-myalgias Morphine, Vomiting MEDICATIONS (prior to changes made today) 1. Paxil 10 mg, 1/2 tab q.d. 2. Crestor 10 Mg, 1 p.o. q.d. 3. Plavix 75 Mg, 1 p.o. q.d. 4. Metoprolol Tartrate 50 Mg, 1/2 tablet in am and 1 tablet in pm 5. Dyazide 25 Mg-37.5 Mg, 1 p.o. q.d. 6. Lotrel 5 Mg - 40 Mg, 1 p.o. q.d. 7. Nitroglycerin 0.4 Mg, Take as Directed 8. Aspir-Low 81 mg, 1 p.o. q.d. CHIEF COMPLAINTS Follow up, lab results HISTORY OF PRESENT ILLNESS Waqar Lundberg is a delightful 71-year-old woman. She has known coronary disease. Twenty five years ago she had a lateral infarction. Her circumflex was chronically occluded. She had an anterior wall infarction in 2002 complicated by V fib cardiac arrest. Heart cath showed a totally occluded circumflexwhich is chronic. The right coronary artery had 50-60% narrowing. The LAD was very tortuous. Balloonangioplasty was done. A stent could not be placed because of the tortuosity. I would comment, however, that there are new generation cobalt stents which now might be able to stent her LAD should it need it. Her last look at her coronary arteries was a couple of years ago and showed moderate disease. We would probably recommend doing a followup nuclear stress test in 2008 or 2009 at the latest, keeping in mind that we may have a false positive result as we have in the past, and she might have to go for another angiogram. The other issues revolve around her blood pressure. I am not totally happy with the blood pressure number I am getting here in the office today but she assures me at home it is lower. It turns out she did not take her blood pressure pills today. In addition, we reviewed her cholesterol numbers today but she ran out of her Crestor more than a week ago and therefore the results are probably not reliable. Her HDL is 50, LDL 107, triglycerides 93, total cholesterol 176, ALT 21. I did give her samples ofCrestor to take and also gave her a discount coupon for Crestor. Part of the issue is monetary. We brought up considering Zocor. The problem is in the past on moderate dose Lipitor she had muscle aches. I am concerned that to use Zocor we would have to use the highest dose and I am concerned about muscle aches. I did offer her that option but she states she can now afford the Crestor and again, as I mentioned, I gave her coupons. We also checked her electrolytes because of the medicine she is on. Sodium was 141, potassium 3.8, creatinine 1.1, and glucose 101. The patient herself is feeling well. She has some various muscle aches in her neck and back with spasm. I told her she can try over the counter Slow-Mag or quinine if it is still available, but she probably does need to see Dr. Nice, which I recommended. This is probably arthritis that she is describing. It is all mechanical, occurring only in certain body positions. She has had some cellulitis and she has lower extremity edema from weight and previous injury to her legs and vein stripping. I encouraged her to wear support stockings. Shehad a number of other questions. I went through each of them. This was a 45 minute office visit. ____ PAST HISTORY Past Medical Illnesses: hyperlipidemia, hypertension, [...] - lives with ; Place of - [place]; REVIEW OF SYSTEMS GENERAL weight gain, 2lbs, fatigue, severe case celluitis, left leg, treatment x 3 INTEGUMENTARY denies any change in hair or nails, rashes, or skin lesions. EYES wears eye glasses/contact lenses EARS, NOSE, THROAT, MOUTH denies any hearing loss, epistaxis, hoarseness or difficulty speaking. RESPIRATORY dyspnea CARDIOVASCULAR edema, severe varicosities, chest pressure with stress ABDOMINAL denies ulcer disease, hematochezia or melena. MUSCULOSKELETAL denies any history of venous insufficiency, arthritic symptoms or back problems. NEUROLOGICAL denies any history of recurrent strokes, TIA, or seizure disorder. PSYCHIATRIC stress, depression, anxiety ENDOCRINE , hyperlipidemia HEMATOLOGICAL/IMMUNOLOGIC medication allergies PHYSICAL EXAMINATION VITAL SIGNS: Blood Pressure: 140/70 Sitting, Left arm, large cuff 139/80 Sitting, Left arm, large cuff-per MD Pulse- 56.00/min. Weight- 246.00 lbs. Height- 65.00 Temperature- .00 [...] place. MEDICATIONS UPDATED/STARTED TODAY: Paxil 10 mg, 1/2 tab q.d., DIRECTED Crestor 10 Mg, 1 p.o. q.d., #30 or #100 Plavix 75 Mg, 1 p.o. q.d., #30 or #100 Metoprolol Tartrate 50 Mg, 1/2 tablet in am and 1 tablet in pm, #135 Dyazide 25 Mg-37.5 Mg, 1 p.o. q.d., #30 or #100 Lotrel 5 Mg - 40 Mg, 1 p.o. q.d., #30 or #100 Nitroglycerin 0.4 Mg, Take as Directed, #25 MEDICATIONS REFILLED/STOPPED TODAY: Metoprolol Tartrate 50 Mg 1/2 tablet in am and 1 tablet in pm #135 Refill, Plavix 75 Mg 1 p.o. q.d. #30 Refill, Paxil 10 mg 1 p.o. q.d. DIRECTED Dosage Decreased, Lotrel 5 mg - 40 mg 1 p.o. q.d. #30or #100 Refill, Dyazide 25 Mg-37.5 Mg 1 p.o. q.d. #30 Refill, Nitroglycerin 0.4 Mg Take as Directed #25 Refill and Crestor 10 Mg 1 p.o. q.d. 30 Refill IMPRESSIONS/PLAN I am going to ask her to come back in six months and I will recheck her lipids on her current medications. If she is not at goal we can raise the Crestor from 10 to 20. If her blood pressure is not controlled I would switch her metoprolol to labetalol. I do not want to increase the Norvasc component of her Lotrel any higher because of her propensity for ankle edema, although she has very little right now. Again, as I mentioned, we will probably do a stress test in 2008. Total consult time: 45 minutes, greater than 50% counseling. TODAYS ORDERS 1. Lipid profile/ALT 1 day 2. BMP 1 day 3. Lipid profile/ALT 6 months 4. F/U with LUANA Villagomez, ANP 6 months Guillermo Martinez M.D. documented in this encounter Plan of Treatment Not on filedocumented as of this encounter Visit Diagnoses Not on filedocumented in this encounter Care Teams Forensic Examiner Relationship Specialty Start Date End Date Alicia Nice MD PCP - General Family Practice 08/25/12 6 Les Fair MD PCP - [facility] Family Practice 08/23/15 12/29/15 [address] [place] [address] [facility] PCP - General 12/30/15 10/15/16 [address] [place] [address] None PCP - General 10/16/16 01/10/17 Allyson Pool PA PCP - General 04/27/17 [facility] [address] [place] [address] Guillermo Martinez MD MD Cardiology 11/15/17 [address] [place] [id number] documented as of this encounter
--- OUTSIDE RECORDS SUMMARY | 2022-02-21 10:35 | XMS_ITS | Encounter Summary ---
:1935 Author Organization [place] Address [address] [facility] [place] [address] Care Team Providers Name Role Phone Alicia Nice MD Primary Care Provider Unavailable Les Fair MD Primary Care Provider [facility] Primary Care Provider [phone] None Primary Care Provider Unavailable Allyson oPol Primary Care Provider Guillermo Martinez MD Unavailable Encounter Details Date Type Department Care Team Description 10/02/2005 Office Visit-[facility] Heart Unknown, Eugene nascimento MD [address] [address] Social History Tobacco Use Types Packs/Day Years Used Date Smoking Tobacco: Never Assessed Sex Assigned at Date Recorded Not on file documented as of this encounter Progress Notes Unknown, DoctorMD - 10/04/2005 11:05 AM CDT Progress Note Created by: Jesús Almanza N.P. DATE: 10/02/2005 WAQAR LUNDBERG DATE OF : 1935 AGE: [age] years old Referring Physician: ALICIA NICE Referring Clinic: [facility] CURRENT DIAGNOSES 1. - CAD, 414.00 2. Obesity-(<LT>100 ), 278.00 3. Hypertension-Essential (Benign), 401.1 4. - Hyperlipidemia, 272.4 5. Status post-PTCA, V45.82 6. [place]-Acute Anterior, 410.11 7. Ventricular tachycardia, 427.1 ALLERGIES [...] 81 mg, 1 p.o. q.d. CHIEF COMPLAINTS Followup of - CAD and Review nuc HISTORY OF PRESENT ILLNESS Waqar Lundberg is a very pleasant 69-year-old female who returns today to follow up on a nuclear stress test for her coronary artery disease. She had her initial lateral wall myocardial infarction at age 44. She had an additional anterior infarction with a ventricular fibrillation cardiac arrest in 2002. Her LAD at that point was too tortuous for a stent, and she underwent angioplasty alone. At that point her circumflex was occluded, her right coronary artery had 50-60% RCA stenosis, and she did have 60% diagonal occlusion with a 30% residual narrowing in her angioplasty. She actually went back to the bean sprout laborer a second time following the angioplasty due to recurrent symptoms with anxiety; no acute changes were noted. Ejection fraction by LV gram is estimated at 35-40%. She has had a workup for arrhythmia which was negative and did not require a device insertion. This patient underwent a nuclear stress test recently which shows her old lateral wall myocardial infarction with no ischemia. There is a small to moderate sized reversible anterior defect consistent with mild ischemia without infarction. There also is a small to moderate size fixed inferior defect most likely consistent with diaphragm attenuation, although a transmural VT could not be excluded. Compared to 2003, the new finding includes mild anterior ischemia. This patient walked the same amount onthe treadmill, had no EKG changes consistent with ischemia. By history she tells me her typical angina is chest pressure, with her initial VT, radiating down her left arm. She is a very active woman and has had no recurrence of her symptoms. Her ejection fraction by nuclear scan is 52%. [place] troubled with right knee and hip pain. She recently underwent MRIs and is seeing an orthopedic physician. She continues to gain weight and is somewhat limited in her exercise capacity due to her current joint problems. She alsohas generalized muscle aching, and complained to Dr. Martinez last visit of muscle cramping. She suspended her Lipitor therapy, and she thinks this made no difference. Once again the muscle discomforts continue intermittently, but interestingly are better in the warm weather and worse in the cold weather, or with weather changes. Her lipid profile has been reviewed with her and it is as follows: Her triglycerides are 96, total cholesterol 138, HDL 54, LDL 65, ALT 26. Her BMP is essentially normal with potassium low normal at 3.5. She has 1+ peripheral edema which is not new for her. When she saw someone in [place] for complaints of joint discomfort in her right leg, she was recommended to take furosemide with potassium, but took this without any change in her edema, and stopped this on her own. She has had a history of vein stripping bilaterally as well. She continues to gain weight, in spite of watching her diet. Her blood pressure is under adequate control today. She denies any shortness of breath, orthopnea, PND, syncope or presyncope. PAST HISTORY Past Medical Illnesses: hyperlipidemia, hypertension, obesity, cellulitis, benign breast bx Past Cardiac Illnesses: coronary artery disease, S/P myocardial infarction-anterior, VF arrest with VT, NSVT immed after VT,Lat VT 1980, Ant VT (Vfib) 10-13 Cath-PTCA LAD(too tortuous for stent), 100%Lcx-OM, 50-60% RCA, PAC, PAT-non sust Surgical Procedures: appy, mario, tonsillectomy, BHARAT, varicose vein strip Cardiology Procedures-Invasive: cardiac cath (left) November 2002 Cardiology Procedures-Noninvasive: holter monitor November 2002, myocardial perfusion imaging (Nuclear) December 2002, myocardial perfusion imaging (Nuclear) April 2003, treadmill cardiolite September 2005 Left Ventricular Ejection Fraction: 40, 52% by nuclear scan SOCIAL HISTORY Alcohol Use - does not use alcohol; Smoking - does not smoke; Diet - caffeine use-3-4 per day, low sodium (less than 2 grams) and low fat Diet; Lifestyle - and children; Exercise - 3 days per week and re-hab program; Seat Belt Use - always; Occupation - retired; Residence - lives with ;Place of - [place]; REVIEW OF SYSTEMS GENERAL weight gain of approximately 25 lbs, add'l 4# INTEGUMENTARY denies any change in hair or nails, rashes, or skin lesions. EYES wears eye glasses/contact lenses EARS, NOSE, THROAT, MOUTH denies any hearing loss, epistaxis, hoarseness or difficulty speaking. RESPIRATORY denies dyspnea, snoring, cough, wheezing or hemoptysis. CARDIOVASCULAR palpitations, better, palpitations, better ABDOMINAL denies ulcer disease, hematochezia or melena. MUSCULOSKELETAL denies any history of venous insufficiency, arthritic symptoms or back problems. NEUROLOGICAL denies any history of recurrent strokes, TIA, or seizure disorder. PSYCHIATRIC anxiety ENDOCRINE hyperlipidemia, weight gain HEMATOLOGICAL/IMMUNOLOGIC denies any food allergies, seasonal allergies, bleeding disorders. PHYSICAL EXAMINATION VITAL SIGNS: Blood Pressure: 128/76 Sitting, Left arm, large cuff Pulse- 64.00/min. Weight- 250.00 lbs. Height- 65.00 Temperature- .00 CONSTITUTIONAL cooperative, [...] mild hemosiderin deposit due to varicose vein strip; 1+ edema NEUROLOGICAL no gross motor deficits noted, affect appropriate, oriented to time, person and place. MEDICATIONS UPDATED TODAY: IMPRESSION/PLAN: 1.Known coronary artery disease with history of a lateral wall VT at age 44. Anterior wall VT in 2002 with a ventricular fibrillation arrest, having undergone LAD angioplasty with no stent due to the tortuosity of the vessel. Her circumflex is occluded, and her RCA has moderate disease. This patient now has a mild anterior area of ischemia on her nuclear stress test which is new from 2003. She has nosymptoms. She continues on beta blockers and aspirin therapy. This is, however, a change in her nuclear stress test results with no apparent symptoms. I will discuss this with Dr. Martinez to determine the best approach to take. I told her I would call her with his input when I have an opportunity to speak with him regarding his thoughts around this new abnormality. 2.Hyperlipidemia. Currently at goal on Lipitor with Niaspan therapy. It is difficult to tell if her multiple myalgias and joint discomforts are degenerative in nature or statin induced. Reportedly she stopped Lipitor after she saw us last summer and does not remember if it made a substantial change. Th erefore, she will take another drug holiday from Lipitor and call me two weeks later. If her discomfort is substantially better, I will switch her to low dose Vytorin and continue Niaspan. Otherwise her lipids are acceptable. 3.Lower extremity edema which I suspect is multifactorial including the fact that she is on Lotrel and has had bilateral vein stripping. This did not respond to furosemide given to her in [place]. I have made no other changes. She is on Dyazide therapy. Her potassium is low normal. I have encouraged her to continue to have one to two servings of potassium-laden foods daily. 4.Right lower extremity joint discomfort which is limiting her activity. She continues to gain weight. She is undergoing MRIs and will be seeing an orthopedic physician soon regarding this matter. Once I have discussed her nuclear findings with Dr. Guillermo Martinez I will notify her of the plan in more detail and the requirements for any follow up that would be appropriate. Greater than 50% of this 30 minute visit today was spent counseling this patient on her test results, and reviewing the options of medical management versus coronary angiogram as option based on her stress test findings, as well as reviewing lifestyle modifications and her lipid profile. ADDENDUM: I have reviewed the nuclearfindings and we will proceed with coronary anigiogram. See clinical notes for further discussion. Jesús Almanza CNP/[facility]/[id number] (Enter Doctor Dictated Impressions Here) TODAYS ORDERS 1. F/U with Guillermo Martinez MD followup Jesús Almanza, N.P. documented in this encounter Plan of Treatment Not on filedocumented as of this encounter Visit Diagnoses Not on filedocumented in this encounter Care Teams Regional Sales Representative Relationship Specialty Start Date End Date Alicia Nice MD PCP - General Family Practice 08/25/12 6 Les Fair MD PCP - General Family Practice 08/23/15 12/29/15 [address] [place] [address] [facility] PCP - General 12/30/15 10/15/16 [address] [place] [address] None PCP - General 10/16/16 01/10/17 Allyson Pool PA PCP - General 04/27/17 [facility] [address] [place] [address] Guillermo Martinez MD MD Cardiology 11/15/17 [address] [place] [phone] documented as of this encounter
--- OUTSIDE RECORDS SUMMARY | 2022-02-21 10:35 | XMS_ITS | Encounter Summary ---
:1935 Author Organization [place] Address [address] [facility] [place] [address] Care Team Providers Name Role Phone Alicia Nice MD Primary Care Provider Unavailable Les Fair MD Primary Care Provider [facility] Primary Care Provider [phone] None Primary Care Provider Unavailable Allyson Pool Primary Care Provider Guillermo Martinez MD Unavailable Encounter Details Date Type Department Care Team Description 10/22/2005 Office Visit-[facility] Heart Unknown, Eugene nascimento MD [address] [address] Social History Tobacco Use Types Packs/Day Years Used Date Smoking Tobacco: Never Assessed Sex Assigned at Date Recorded Not on file documented as of this encounter Progress Notes Unknown, DoctorMD - 10/28/2005 10:09 PM CDT Progress Note Created by: Jesús Almanza N.P. DATE: 10/22/2005 WAQAR LUNDBERG DATE OF : 1935 AGE: [age] years old Referring Physician: ALICIA NICE Referring Clinic: [facility] CURRENT DIAGNOSES 1. - CAD, 414.00 2. Obesity-(<LT>100 ), 278.00 3. Hypertension-Essential (Benign), 401.1 4. - Hyperlipidemia, 272.4 5. Status post-PTCA, V45.82 6. FL-Acute Anterior, 410.11 7. Ventricular tachycardia, 427.1 ALLERGIES [...] CHIEF COMPLAINTS Followup of - CAD and Pre-op cath HISTORY OF PRESENT ILLNESS Waqar Lundberg is a very pleasant 69-year-old female who returns today to discuss her coronary angiogram scheduled on 10-24-05. She a lateral wall myocardial infarction at age 44 and a subsequent anterior infarction with a ventricular fibrillation cardiac arrest in 2002. Her LAD at that point was too tortuous for a stent, and she underwent angioplasty alone. At that point her circumflex was occluded, her right coronary artery had 50-60% stenosis, and 60% diagonal occlusion with a 30% residual narrowing in her LAD angioplasty. 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 Compared to 2003, the new finding includes mild anterior ischemia. This patient walked the same amount onthe treadmill, had no EKG changes consistent with ischemia. By history she tells me her typical angina is chest pressure, with her initial FL, radiating down her left arm. She is a very active woman and has had no recurrence of her symptoms but notes more overall fatigue than she used to the fleeting chest pain, mostly when her anxiety is peaking. She has taken Paxil for anxiety in the past. Her ejection fraction by nuclear scan is 52%. [place] and hip pain. She recently underwent MRIs and recently saw an orthopedic surgeon who did not recommend surgical managment. She continues to gain weight and is somewhat limited in her exercise capacity due to her current joint problems although they are improved the past week. She also has generalized muscle aching, and complained to Dr. Martinez last visit of muscle cramping. We suspended her Lipitor therapy, and she thinks [...] for her. When she saw someone in [place] for complaints of joint discomfort in her right leg, it was recommended to take furosemide with potassium, but took this without any change in her edema, and stopped this on her own. She has had a history of vein stripping bilaterally. Her blood pressure is suboptimallycontrolled today but she is tearful, admit to feeling anxious and upset over her upcoming angiogram.She denies any shortness of breath, orthopnea, PND, syncope or presyncope. Intermittently with her anxiety, she will notice fleeting episodes of dizzyness. PAST HISTORY Past Medical Illnesses: hyperlipidemia, hypertension, obesity, cellulitis, benign breast bx Past Cardiac Illnesses: coronary artery disease, S/P myocardial infarction-anterior, VF arrest with FL, NSVT immed after FL,Lat FL 1980, Ant FL (Vfib) 10-13 Cath-PTCA LAD(too tortuous for stent), 100%Lcx-OM, 50-60% RCA, PAC, PAT-non sust Surgical Procedures: appy, mario, tonsillectomy, BHARAT, varicose vein strip Cardiology Procedures-Invasive: cardiac cath (left) November 2002 Cardiology Procedures-Noninvasive: holter monitor November 2002, myocardial perfusion imaging (Nuclear) December 2002, myocardial perfusion imaging (Nuclear) April 2003, treadmill cardiolite September 2005 Left Ventricular Ejection Fraction: 40, 52% by nuclear scan FAMILY HISTORY: Father - Age 66, CHF; [...] Residence - lives with ;Place of - [place]; REVIEW OF SYSTEMS GENERAL weight loss, 2# INTEGUMENTARY denies any change in hair or nails, rashes, or skin lesions. EYES wears eye glasses/contact lenses EARS, NOSE, THROAT, MOUTH denies any hearing loss, epistaxis, hoarseness or difficulty speaking. RESPIRATORY denies dyspnea, snoring, cough, wheezing or hemoptysis. CARDIOVASCULAR palpitations, same/sl better ABDOMINAL denies ulcer disease, hematochezia or melena. MUSCULOSKELETAL denies any history of venous insufficiency, arthritic symptoms or back problems. NEUROLOGICAL denies any history of recurrent strokes, TIA, or seizure disorder. PSYCHIATRIC anxiety ENDOCRINE hyperlipidemia, weight gain HEMATOLOGICAL/IMMUNOLOGIC denies any food allergies, seasonal allergies, bleeding disorders. PHYSICAL EXAMINATION VITAL SIGNS: Blood Pressure: 148/76 Sitting, Left arm, large cuff Pulse- 68.00/min. Weight- 248.00 lbs. Height- 65.00 Temperature- .00 CONSTITUTIONAL cooperative [...] person and place. MEDICATIONS UPDATED TODAY: IMPRESSIONS/PLAN IMPRESSION/PLAN: 1.Known coronary artery disease with history of a lateral wall FL at age 44. Anterior wall FL in 2002 with a ventricular fibrillation arrest, having undergone LAD angioplasty with no stent due to the tortuosity of the vessel. Her circumflex is occluded, and her RCA has moderate disease. This patient now has a mild anterior area of ischemia on her nuclear stress test which is new from 2003. She has nosymptoms of sustained or exertional chest pain, but notes increased fatigue. She continues on beta blockers and aspirin therapy. I discussed this with Dr. Martinez and we will proceed with coronary angiogram. I have reviewed the risks of this procedure including contrast dye allergy, contrast dye nephropathy, FL, , stroke, iatrogenic vessel wall trauma, and arrythmia. We have reviewed potential procedures including PTCA, rotoblading, stenting, emergency open heart surgery and elective open heartsurgery. She understands the need to be NPO prior to the procedure and have transportation home. 2.Hyperlipidemia. Currently at goal on Lipitor with Niaspan therapy. It is difficult to tell if her multiple myalgias and joint discomforts are degenerative in nature or statin induced. Reportedly she stopped Lipitor after she saw us last summer and does not remember if it made a substantial change, sh e thinks it didn't. I will see her back after her angiogram as she would be interested in a drug holiday again after her angigram however, her right hip and knee pain appear to be improving. If her discomfort is substantially better off lipitor, I will switch her to low dose Vytorin and continue Niaspan. Otherwise her lipids are acceptable. 3.Lower extremity edema which I suspect is multifactorial including the fact that she is on Lotrel and has had bilateral vein stripping. This did not respond to furosemide given to her in [place]. I have made no other changes. She is on Dyazide therapy. Her potassium is low normal. I have encouraged her to continue to have one to two servings of potassium-laden foods daily. 4.Right lower extremity joint discomfort which is limiting her activity but improving. We will discuss a statin holiday post angiogram at her request. Her Orthopedic MD did not suggest surgery. 5. Anxiety. Waqar has taken Paxil in the past and thinks she has a short acting agent available as well. I have asked her to call me with what medication she has available as based on her apparent anxiety today, she may benefit from an anti-anxiety agent the evening prior to her angiogram. TODAYS ORDERS 1. Coronary angiogram 10-24-[address] Martinez 2. F/U with Jesús Almanza, ZAHEER follow up post angiogram Jesús Almanza, N.P. documented in this encounter Plan of Treatment Not on filedocumented as of this encounter Visit Diagnoses Not on filedocumented in this encounter Care Teams Logistics Clerk Relationship Specialty Start Date End Date Alicia Nice MD PCP - General Family Practice 08/25/12 6 Les Fair MD PCP - General Family Practice 08/23/15 12/29/15 [id number] [place] [address] [facility] PCP - General 12/30/15 10/15/16 [address] [place] [address] None PCP - General 10/16/16 01/10/17 Allyson Pool PA PCP - General 04/27/17 [facility] [address] [place] [address] Guillermo Martinez MD MD Cardiology 11/15/17 [address] [place] [id number] documented as of this encounter
--- OUTSIDE RECORDS SUMMARY | 2022-02-21 10:35 | XMS_ITS | Encounter Summary ---
:1935 Author Organization [place] Address [address] [facility] [place] [address] Care Team Providers Name Role Phone Unavailable Primary Care Provider Unavailable Encounter Details Date Type Department Care Team Description 10/24/2005 Historic Results INTERFACED REPORT Hattie Kumar [facility] [address] [place] [address] (Wo rk) Social History Tobacco Use Types Packs/Day Years Used Date Smoking Tobacco: Never Assessed Sex Assigned at Date Recorded Not on file documented as of this encounter Plan of Treatment Not on filedocumented as of this encounter Procedures Procedure Name Priority Date/Time Associated Comments Diagnosis INR Routine 10/24/2005 7:00 AM Results f or this CDT procedure are i n the results section. PLATELET COUNT Routine 10/24/2005 7:00 AM Results for this CDT procedure are i n the results section. PARTIAL THROMBOPLASTIN Routine 10/24/2005 7:00 AM Results for this TIME CDT procedure are i n the results section. HEMOGLOBIN Routine 10/24/2005 7:00 AM Results f or this CDT procedure are i n the results section. BASIC METABOLIC PANEL Routine 10/24/2005 7:00 AM Results for this CDT procedure are i n the results section. documented in this encounter Results Basic metabolic panel (10/24/2005 7:00 AM CDT) athologist Signature Sodium 142 133 - 144 MISYS mmol/L Potassium 3.5 3.4 - 5.3 MISYS mmol/L Chloride 104 94 - 109 MISYS mmol/L Carbon Dioxide 30 20 - 32 MISYS mmol/L Glucose 95 60 - 110 MISYS mg/dL Urea Nitrogen 15 7 - 30 MISYS mg/dL Creatinine 0.82 0.60 - MISYS 1.30 mg/dL GFR Estimate 74 >60 MISYS mL/min/1.7 m2 GFR Estimate If 89 >60 MISYS Black mL/min/1.7 m2 Calcium 8.5 8.5 - 10.4 MISYS mg/dL Anion Gap 8 6 - 17 MISYS mmol/L Specimen Anatomical Collection Method Collection Time Receive d Time (Source) Location / / Volume Laterality 10/24/2005 7:00 AM 6 7:10 CDT AM CDT Hattie Almanza LAB - BLOOD ORDERABLES Performing Organization Address City/[facility]/ZIP Code Phon e Number MISYS Hemoglobin (10/24/2005 7:00 AM CDT) athologist Signature Hemoglobin 13.6 11.7 - 15.7 MISYS g/dL Specimen Anatomical Collection Method Collection Time Receive d Time (Source) Location / / Volume Laterality 10/24/2005 7:00 AM 6 7:10 CDT AM CDT Hattie Almanza LAB - BLOOD ORDERABLES Performing Organization Address [facility] Code Phon e Number MISYS INR (10/24/2005 7:00 AM CDT) athologist Signature INR 0.93 0.86 - 1.14 MISYS Specimen Anatomical Collection Method Collection Time Receive d Time (Source) Location / / Volume Laterality 10/24/2005 7:00 AM 6 7:10 CDT AM CDT Hattie Almanza LAB - BLOOD ORDERABLES Performing Organization Address City/[facility]/ZIP Code Phon e Number MISYS Platelet count (10/24/2005 7:00 AM CDT) athologist Signature Platelet Count 193 150 - 450 MISYS 10e9/L Specimen Anatomical Collection Method Collection Time Receive d Time (Source) Location / / Volume Laterality 10/24/2005 7:00 AM 6 7:10 CDT AM CDT Hattie Almanza LAB - BLOOD ORDERABLES Performing Organization Address City/State/ZIP Code Phon e Number MISYS Partial thromboplastin time (10/24/2005 7:00 AM CDT) P athologist Signature PTT 25 22 - 37 sec MISYS Specimen Anatomical Collection Method Collection Time Receive d Time (Source) Location / / Volume Laterality 10/24/2005 7:00 AM 6 7:10 CDT AM CDT Hattie Almanza LAB - BLOOD ORDERABLES Performing Organization Address City/State/ZIP Code Phon e Number MISYS documented in this encounter Visit Diagnoses Not on filedocumented in this encounter
--- OUTSIDE RECORDS SUMMARY | 2022-02-21 10:35 | XMS_ITS | Encounter Summary ---
:1935 Author Organization [place] Address [address] [facility] [place] [address] Care Team Providers Name Role Phone Alicia Nice MD Primary Care Provider Unavailable Les Fair MD Primary Care Provider Encounter Details Date Type Department Care Team Description 11/16/2002 Historic Results [facility] Heart Unknown, [facility] [address] [place] [address] Social History Tobacco Use Types Packs/Day Years Used Date Smoking Tobacco: Never Assessed Sex Assigned at Date Recorded Not on file documented as of this encounter Plan of Treatment Not on filedocumented as of this encounter Procedures Procedure Name Priority Date/Time Associated Diagnosis Comme nts CARDIAC CATH - HIM SCAN 11/16/2002 12:00 AM CDT - ARCHIVE documented in this encounter Results CARDIAC CATH - HIM SCAN - ARCHIVE (11/16/2002 12:00 AM CDT) Anatomical Region Laterality Modality Other Specimen (Source) Anatomical Location Collection Method / Collectio n Time Received Time / Laterality Volume 11/16/2002 Narrative This result has an attachment that is no t available. Provider Scan CV ELECTROPHYSIOLOGY ORDERAB LES documented in this encounter Visit Diagnoses Not on filedocumented in this encounter Care Teams High School Coach Relationship Specialty Start Date End Date Alicia Nice MD PCP - General Family Practice 08/25/12 6 Les Fair MD PCP - General Family Practice 08/23/15 12/29/15 [address] [place] [address] documented as of this encounter
--- OUTSIDE RECORDS SUMMARY | 2022-02-21 10:35 | XMS_ITS | Encounter Summary ---
:1935 Author Organization [place] Address [address] [facility] [place] [address] Care Team Providers Name Role Phone Alicia Nice MD Primary Care Provider Unavailable Les Fair MD Primary Care Provider [facility] Primary Care Provider [phone] None Primary Care Provider Unavailable Allyson Pool Primary Care Provider Guillermo Martinez MD Unavailable Encounter Details Date Type Department Care Team Description 03/10/2003 Office Visit-[facility] Heart Unknown, Eugene nascimento MD [address] [address] Social History Tobacco Use Types Packs/Day Years Used Date Smoking Tobacco: Never Assessed Sex Assigned at Date Recorded Not on file documented as of this encounter Progress Notes Unknown, DoctorMD - 03/12/2003 7:23 AM CST Progress Note Created by: Marcelo Diaz NP DATE: 03/10/2003 WAQAR LUNDBERG DATE OF : 1935 AGE: [age] years old Referring Physician: ALICIA NICE CURRENT DIAGNOSES 1. Hypertension-Essential (Benign), 401.1 2. Status post-PTCA, v45.82 3. - Hyperlipidemia, 272.4 4. SD-Acute Anterior, 410.11 5. Ventricular tachycardia, 427.1 6. - CAD, 414.00 7. Obesity-(<LT>100 ), 278.00 ALLERGIES Morphine, Vomiting MEDICATIONS 1. Niaspan ER [...] ILLNESS Waqar Lundberg is a very pleasant 67-year-old female who is here today for follow-up regarding her hypertension. She has a past medical history significant for lateral wall myocardial infarction 20 years ago. Approximately 5 months ago she suffered an anterior wall myocardial infarction complicated byventricular fibrillation/cardiac arrest. She was brought to the cardiac catheterization lab and underwent balloon angioplasty of her LAD. There is moderate disease proximally and severe mid-vessel narrowing which was the infarct vessel. However, this vessel had a significant amount of tortuosity and therefore a stent could not be placed. She had a reduced ejection fraction at that time of 35-40%. Thepatient then had some nonsustained ventricular tachycardia after her procedure which gradually decreased in frequency over the time she was hospitalized. Follow-up Holter monitor done on an outpatient basis after her discharge demonstrated some PACs and very brief SVT but no ventricular tachycardia. Her Holter was reviewed with Dr. Billings who did not feel that she needed any further EP studies or defibrillator. The patient underwent repeat stress testing a few weeks ago. This showed a previous anterior and lateral wall infarct but no evidence of inducible ischemia. I saw Ms. Lundberg a few weeks ago at which time her medications were changed from Zestoretic to Lotensin 20mg given the fact that her blood pressure was not well controlled on the Zestoretic. Lotrel wasnot used because apparently the patient had some problems with ankle swelling due to Norvasc in the past. The patient is tolerating the Lotensin well at this time. She does not have any side effects that she is aware of. She has lost a further 5 pounds since our visit three weeks ago and she feels wonderful about this. The patient has lost a total of approximately 30 pounds since her hospitalization.She has made a number of changes in her life style including getting regular exercise as well as portion size control. She is eating less than she was eating previously. She is also trying to watch what it is that she eats. The patient is feeling well at this time. She is not having any angina or any type of chest pain or pressure. She denies any shortness of breath or dyspnea on exertion. She also denies any problems with orthopnea or PND. The remainder of this patient's past medical history and review of systems are noted below. PAST HISTORY Past Medical Illnesses: hyperlipidemia, hypertension, obesity, cellulitis Past Cardiac Illnesses: coronary artery disease, S/P myocardial infarction-anterior, VF arrest with SD, NSVT immed after SD,Lat SD 1980, Ant SD (Vfib) 10-13 Cath-PTCA LAD(too tortuous for stent), [...] always; Occupation - retired; Place of - [place]; ____ REVIEW OF SYSTEMS GENERAL cold INTEGUMENTARY denies any change in hair or nails, rashes, or skin lesions. EYES wears eye glasses/contact lenses EARS, NOSE, THROAT, MOUTH denies any hearing loss, epistaxis, hoarseness or difficulty speaking. RESPIRATORY denies dyspnea, cough, wheezing or hemoptysis. CARDIOVASCULAR palpitations ABDOMINAL denies ulcer disease, hematochezia or melena. MUSCULOSKELETAL denies any history of venous insufficiency, arthritic symptoms or back problems. NEUROLOGICAL denies any history of recurrent strokes, TIA, or seizure disorder. PSYCHIATRIC anxiety controlled with medication ENDOCRINE denies any history of weight change, heat/cold intolerance, polydipsia, or polyuria HEMATOLOGICAL/IMMUNOLOGIC denies any food allergies, seasonal allergies, bleeding disorders. PHYSICAL EXAMINATION VITAL SIGNS: Blood Pressure: 160/80 Sitting, Right arm, large cuff Pulse- 54.00/min. Weight- 223.40 lbs. Height- 64.00 Temperature- .00 CONSTITUTIONAL cooperative, alert and oriented,well [...] time, person and place. MEDICATIONS UPDATED TODAY: Dyazide 25 mg-37.5 mg, 1 p.o. q.d., #30 IMPRESSIONS/PLAN 1. Hypertension. Unfortunately [place] blood pressure remains elevated at 160/80 and a pulse of 54 beats per minute. I have started her on Dyazide 25/37.5 in addition to her Lotensin at 20mg and her metoprolol at 50mg 1/2 tab b.i.d. I will check BMP today and in one weeks time to ensure that her potassium is remaining normal. I have encouraged regular aerobic exercise as well as further weight loss and sodium restriction to help with obtaining optimal blood pressure. Ms. Lundberg is due to follow-up with Dr. Martinez on April 29. She is also due to have a non-adenosine thallium test on April 26. 2. Coronary artery disease. This is currently stable. The patient denies any signs or symptoms to suggest ischemia, significant arrhythmia, or heart failure. She is undergoing a repeat stress testin six weeks time to look for any progression of her disease. She was encouraged in the interim to contact us should she develop any exertional angina or other concerning symptoms. Obviously we need tokeep a close eye on this patient's potassium as apparently during her arrest she did have a low potassium. At this point she is not on any type of potassium replacement. TODAYS ORDERS 1. Basic Metabolic Panel 1 week Marcelo Diaz NP documented in this encounter Plan of Treatment Not on filedocumented as of this encounter Visit Diagnoses Not on filedocumented in this encounter Care Teams Bender Helper Relationship Specialty Start Date End Date Alicia Nice MD PCP - General Family Practice 08/25/12 6 Les Fair MD PCP - General Family Practice 08/23/15 12/29/15 [address] [place] [address] [facility] PCP - General 12/30/15 10/15/16 [address] [place] [address] None PCP - General 10/16/16 01/10/17 Allyson Pool PA PCP - General 04/27/17 [facility] [address] [place] [address] Guillermo Martinez MD MD Cardiology 11/15/17 [address] [place] [phone] documented as of this encounter
--- OUTSIDE RECORDS SUMMARY | 2022-02-21 10:35 | XMS_ITS | Encounter Summary ---
:1935 Author Organization [place] Address [address] [place] [address] Care Team Providers Name Role Phone Alicia Nice MD Primary Care Provider Unavailable Les Fair MD Primary Care Provider Encounter Details Date Type Department Care Team Description 09/25/2005 Historic Results [facility] Heart Unknown, [facility] [address] [place] [address] Social History Tobacco Use Types Packs/Day Years Used Date Smoking Tobacco: Never Assessed Sex Assigned at Date Recorded Not on file documented as of this encounter Plan of Treatment Not on filedocumented as of this encounter Procedures Procedure Name Priority Date/Time Associated Diagnosis Comme nts NUCLEAR CARDIAC - HIM 09/25/2005 12:00 AM CDT SCAN - ARCHIVE documented in this encounter Results NUCLEAR CARDIAC - HIM SCAN - ARCHIVE (09/25/2005 12:00 AM CDT) Anatomical Region Laterality Modality Other Specimen (Source) Anatomical Location Collection Method / Collectio n Time Received Time / Laterality Volume 09/25/2005 Narrative This result has an attachment that is no t available. Provider Scan IMG NM ORDERABLES documented in this encounter Visit Diagnoses Not on filedocumented in this encounter Care Teams Respiratory Director Relationship Specialty Start Date End Date Alicia Nice MD PCP - General Family Practice 08/25/12 6 Les Fair MD PCP - General Family Practice 08/23/15 12/29/15 [id number] [place] [address] documented as of this encounter
--- OUTSIDE RECORDS SUMMARY | 2022-02-21 10:35 | XMS_ITS | Encounter Summary ---
:1935 Author Organization [place] Address [address] [facility] [place] [address] Care Team Providers Name Role Phone Shawn Nice MD Primary Care Provider Unavailable Les Fair MD Primary Care Provider [facility] Primary Care Provider [phone] None Primary Care Provider Unavailable Allyson Pool Primary Care Provider Guillermo Martinez MD Unavailable Encounter Details Date Type Department Care Team Description 02/19/2006 Office Visit-[facility] Heart Saw Martinez, Clinic Karina EVANGELISTA [address] [facility] [address] [place] [address] [place] [address] (Wo rk) Social History Tobacco Use Types Packs/Day Years Used Date Smoking Tobacco: Never Assessed Sex Assigned at Date Recorded Not on file documented as of this encounter Progress Notes Guillermo Martinez MD - 04/10/2006 8:24 AM CST Progress Note Created by: Guillermo Martinez M.D. DATE: 02/19/2006 FIDELIA LUNDBERG DATE OF : 1935 AGE: [age] years old Referring Physician: SHAWN NICE Referring Clinic: [facility] CURRENT DIAGNOSES 1. Hypertension-Essential (Benign), 401.1 2. - Hyperlipidemia, 272.4 3. Status post-PTCA, V45.82 4. [place]-Acute Anterior, 410.11 5. Ventricular tachycardia, 427.1 6. - CAD, 414.00 7. Obesity-(<LT>100 ), 278.00 ALLERGIES Morphine, Vomiting MEDICATIONS (including any changes made today) 1. Crestor 10 mg, 1 p.o. q.d. 2. Lotrel 5 Mg-20 Mg, 1 p.o. q.d. 3. Plavix 75 Mg, 1 p.o. q.d. 4. Metoprolol Tartrate 50 Mg, 1/2 tablet in am and 1 tablet in pm 5. Dyazide 25 Mg-37.5 Mg, 1 p.o. q.d. 6. Niaspan Er 1000 Mg, 1 p.o. qPM 7. Nitroglycerin 0.4 Mg, Take as Directed 8. Aspir-Low 81 mg, 1 p.o. q.d. CHIEF COMPLAINTS F/u htn HISTORY OF PRESENT ILLNESS Fidelia Lundberg returns for follow-up. She has extensive coronary disease with previous V-fib arrest.She had balloon angioplasty to the LAD with a 50% narrowing. The artery was too tortuous to accept astent. The circumflex was chronically occluded. The right coronary artery had 50-60% narrowing. A stress test noted earlier in the year showed a small area of anterior ischemia. Heart catheterization showed stable anatomy, therefore it is probably this LAD lesion. She has little if any angina and has had no nitroglycerin use. She was having some questionable muscle cramps with Lipitor. She stopped the medicine and it is not clear to me after talking to her if the muscle cramps improved or not off the Lipitor but she has stopped her cholesterol pills completely. This is not a good situation given that she has known three vessel disease. IMPRESSION/PLAN I am going to give her Crestor 5mg and have her go up to 10mg. She will call us if there is a problem. Otherwise, we can try Crestor 2.5 and Zetia. We will have the patient come back in two months fora lipid profile. Her blood pressure shows good control and she is feeling well. There is no change in her past history, family history, social history and review of systems. TODAYS ORDERS 1. Lipid profile/ALT 2 months 2. F/U with Jesús Almanza, MSN, ANP f/u chol Guillermo Martinez M.D. documented in this encounter Plan of Treatment Not on filedocumented as of this encounter Visit Diagnoses Not on filedocumented in this encounter Care Teams Cyber Incident Handler Relationship Specialty Start Date End Date Shawn Nice MD PCP - General Family Practice 08/25/12 6 Les Fair MD PCP - General Family Practice 08/23/15 12/29/15 [address] [place] [address] [facility] PCP - General 12/30/15 10/15/16 [address] [place], [place] [id number] None PCP - General 10/16/16 01/10/17 Allyson Pool PA PCP - General 04/27/17 [facility] [address] [place] [address] Guillermo Martinez MD MD Cardiology 11/15/17 [address] [place] [address] documented as of this encounter
--- OUTSIDE RECORDS SUMMARY | 2022-02-21 10:35 | XMS_ITS | Encounter Summary ---
:1935 Author Organization [place] Address [facility] [place] [address] Care Team Providers Name Role Phone Shawn Nice MD Primary Care Provider Unavailable Les Fair MD Primary Care Provider [facility] Primary Care Provider None Primary Care Provider Unavailable Allyson Pool Primary Care Provider Guillermo Martinez MD Unavailable Encounter Details Date Type Department Care Team Description 11/26/2002 Office Visit-[facility] Heart Unknown, Eugene nascimento MD [address] [address] Social History Tobacco Use Types Packs/Day Years Used Date Smoking Tobacco: Never Assessed Sex Assigned at Date Recorded Not on file documented as of this encounter Progress Notes Unknown, DoctorMD - 12/01/2002 5:06 PM CDT DATE: 11/26/2002 FIDELIA LUNDBERG DATE OF : 1935 AGE: [age] years old Referring Physician: SHAWN NICE CURRENT DIAGNOSES 1. [place]-Acute Anterior, 410.11 2. - Hyperlipidemia, 272.4 3. Ventricular tachycardia, 427.1 4. - CAD, 414.00 5. Obesity-(<LT>100 ), 278.00 6. Hypertension-Essential (Benign), 401.1 ALLERGIES Morphine, Vomiting MEDICATIONS 1. Aspir-Low 81 mg, 1 p.o. q.d. 2. Plavix 75 mg, 1 p.o. q.d. 3. Metoprolol Tartrate 50 mg, 1 p.o. b.i.d. 4. Lisinopril 10 mg, 1 p.o. b.i.d. 5. Folgard Rx 2.2 mg, 1 p.o. q.d. 6. Lipitor 40 mg, 1 p.o. qPM 7. Niaspan ER 500 mg, 1 p.o. qPM 8. Paxil 20 mg, 1/2 tab q.d. 9. Nitroglycerin 0.4 mg, PRN CHIEF COMPLAINTS Hospital Follow up HISTORY OF PRESENT ILLNESS Fidelia Lundberg is a pleasant 67-year-old female who presents today for follow up. She has a past medical history significant for coronary artery disease, hyperlipidemia, hypetension and obesity. Mrs. Lundberg apparently had a myocardial infarction many years ago when she was in her fourties. The patient presened to the hospital on 11/08/02 with an acute anterior wall myocardial infarction. She had a v.fib cardiac arrest and was cardioverted. She underwent catheterization which showed a 35% proximal LAD narrowing and a 95% mid vessel narrowing. The vessel was angioplastied only due to its tortuosity. She also had moderately severe proximal left circumflex lesion and a totally occluded OM lesion. She had scattered 40-50% lesions in the right. Her EF was 35-40%. She had some brief, non-sustained ventricular tachycardia, but that became less prominent each day and there were no additional arrhythmias. Ms. Lundberg was also seen by Dr. Billings due to her episodes of v. tach. He thought that her brief runs were due to myocardial stunning and preferred to monitor with a holter as opposed to proceeding with an EP study. The holter monitor was performed last week. It showed sinus rhythm with an average heart rate of 65 bpm. There were some PAT, PACs and two 3-16 beat runs of SVT. There was also some brief couplets. Thepatient had no symptoms during this time. Today, Fidelia reports that she is feeling well. 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 She is being treated for this currently. She has not had any recurrence of symptoms since being hospitalized. She denies any lightheadedness, syncope, near syncope, orthopnea or PND. She also denies any palpitations or lower extremity edema. The patient had one episode of dizziness while she was at rehab however it quickly resolved and has not recurred. PAST HISTORY Past Medical Illnesses: hyperlipidemia, hypertension, obesity Past Cardiac Illnesses: coronary artery disease, S/P myocardial infarction-anterior Cardiology Procedures-Invasive: cardiac cath (left) November 2002 Cardiology Procedures-Noninvasive: holter monitor November 2002 FAMILY HISTORY: Father - Age 66, CHF; [...] always; Occupation - retired; Place of - [place]; ____ REVIEW OF SYSTEMS GENERAL lost ten pounds over the last two weeks INTEGUMENTARY denies any change in hair or nails, rashes, or skin lesions. EYES wears eye glasses/contact lenses EARS, NOSE, THROAT, MOUTH denies any hearing loss, epistaxis, hoarseness or difficulty speaking. RESPIRATORY denies dyspnea, cough, wheezing or hemoptysis. CARDIOVASCULAR dizziness related to physical activity, occurred once at rehab ABDOMINAL denies ulcer disease, hematochezia or melena. MUSCULOSKELETAL denies any history of venous insufficiency, arthritic symptoms or back problems. NEUROLOGICAL denies any history of recurrent strokes, TIA, or seizure disorder. PSYCHIATRIC anxiety ENDOCRINE denies any history of weight change, heat/cold intolerance, polydipsia, or polyuria HEMATOLOGICAL/IMMUNOLOGIC denies any food allergies, seasonal allergies, bleeding disorders. PHYSICAL EXAMINATION VITAL SIGNS: Blood Pressure: 140/86 Sitting, Left arm, large cuff 140/80 Retaken by BENCH GRINDER Pulse- 58.00/min. Weight- 242.20 lbs. Height- .00 Temperature- .00 SKIN warm and dry to touch, no apparent skin lesions or masses noted HEAD normocephalic, no masses, no skin lesions, non tender to palpation NECK no palpable masses or adenopathy, JVP normal, no carotid bruit, thyroid not enlarged CHEST clear to auscultation all lung moon CARDIAC S1 normal, S2 normal. Apical impulse not displaced, no murmurs, gallops or rubs detected. ABDOMEN non-tender, no masses, no bruits, aorta, liver and spleen not palpated, bowel sounds normal, moderately obese PERIPHERAL PULSES pulses full and equal in all extremities, no bruits auscultated EXTREMITIES & BACK no deformities,clubbing, erythema or edema observed MEDICATIONS UPDATED TODAY: Aspir-Low 81 mg, 1 p.o. q.d., 0 Plavix 75 mg, 1 p.o. q.d., 0 Metoprolol Tartrate 50 mg, 1 p.o. b.i.d., 0 Lisinopril 10 mg, 1 p.o. b.i.d., 0 Folgard Rx 2.2 mg, 1 p.o. q.d., 0 Lipitor 40 mg, 1 p.o. qPM, 0 Niaspan ER 500 mg, 1 p.o. qPM, 0 Paxil 20 mg, 1/2 tab q.d., 0 Nitroglycerin 0.4 mg, PRN, 0 IMPRESSIONS/PLAN 1. Coronary artery disease. This patient is s/p myocardial infarction. She had angioplasty of her LAD. The patient has not had recurrence of symptoms. She will remain of her above medications as I havenot made any changes today. She is due for a follow up stress test in December, as well as an office visit with Dr. Martinez at that time. 2. Ventricular tachycardia. Recent holter monitor showed PAT, PACs, brief SVT, and two ventricular couplets. She was not symptomatic during the monitoring period. I would like to review this holter with Dr. Billings when he returns to the office and see if he recommends any further studies. Marcelo Diaz NP <B><FONT FACE=System> Electronically signed by [facility], [employer] Data Conversion at 09/25/2013 6:26 AM CDT documented in this encounter Plan of Treatment Not on filedocumented as of this encounter Visit Diagnoses Not on filedocumented in this encounter Care Teams Materials Buyer Relationship Specialty Start Date End Date Shawn Nice MD PCP - General Family Practice 08/25/12 6 Les Fair MD PCP - General Family Practice 08/23/15 12/29/15 [address] [place] [address] [facility] PCP - General 12/30/15 10/15/16 [address] [place], [place] [id number] None PCP - General 10/16/16 01/10/17 Allyson Pool PA PCP - General 04/27/17 [facility] [address] [place] [address] Guillermo Martinez MD MD Cardiology 11/15/[address] [place] [id number] documented as of this encounter
--- OUTSIDE RECORDS SUMMARY | 2022-02-21 10:35 | XMS_ITS | Encounter Summary ---
:1935 Author Organization [place] Address [facility] [place] [address] Care Team Providers Name Role Phone Alicia Nice MD Primary Care Provider Unavailable Les Fair MD Primary Care Provider [facility] Primary Care Provider [phone] None Primary Care Provider Unavailable Allyson Pool Primary Care Provider Guillermo Martinez MD Unavailable Encounter Details Date Type Department Care Team Description 04/16/2008 Office Visit-[facility] Noble mandel, Clinic Joy Fink, MINE ANALYST ELECTROPLATER APPRENTICE [address] [place] [address] [place] [id number] (Wo rk) Social History Tobacco Use Types Packs/Day Years Used Date Smoking Tobacco: Never Assessed Sex Assigned at Date Recorded Not on file documented as of this encounter Progress Notes Jesús Almanza, SUPERVISOR [employer] - 05/11/2008 5:24 PM CST Progress Note Created by: Jesús Almanza, N.P. DATE: 04/16/2008 WAQAR LUNDBERG DATE OF : 1935 AGE: [age] years old Referring Physician: ALICIA NICE Referring Clinic: [facility] CURRENT DIAGNOSES 1. Hypertension-Essential (Benign), 401.1 2. - Hyperlipidemia, 272.4 3. Status post-PTCA, V45.82 4. [place]-Acute Anterior, 410.11 5. Ventricular tachycardia, 427.1 6. - CAD, 414.00 7. Obesity-(<LT>100 ), 278.00 ALLERGIES lipitor-myalgias Morphine, Vomiting MEDICATIONS (prior to changes made today) 1. Plavix 75 Mg, 1 p.o. q.d. 2. Normodyne 100 mg, 1 p.o. b.i.d. fill with labetolol 3. Crestor 10 Mg, 1 p.o. q.d. 4. Dyazide 25 Mg-37.5 Mg, 1 p.o. q.d. 5. Lotrel 5 Mg - 40 Mg, 1 p.o. q.d. 6. Nitroglycerin 0.4 Mg, Take as Directed 7. Aspir-Low 81 mg, 1 p.o. q.d. CHIEF COMPLAINTS Follow up labs HISTORY OF PRESENT ILLNESS Waqar Lundberg is a 72-year-old woman who returns today to follow-up on her lipid panel and her bloodpressure. She has known coronary disease with her first FL 25 years ago with a very strong family history of heart disease. 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 She had an anterior FL in '03 with a V-fib cardiac arrest. She continued to have an occluded circumflex then. The RCA was 60% narrowed and the LAD was very tortuous. A balloon angioplasty was performed to the LAD and a stent could not be placed because of the tortuosity, however if her LAD becomes an issue Dr. Martinez felt that her LAD might now accept one of the newer generation cobalt stents. Her last look at her coronary arteries a couple of years ago showed moderate disease. She is having a nuclear stress test next year for further assessment. She has had no chest pain. We may find a false positive result prompting us to do an angiogram. She has seemed to have abnormal nuclear tests in the past with no significant progression. Last visit her blood pressure was high and it remains quite borderline today. She weaned off of Paxil and tells me she likely had some SSRI withdrawal and is quite fluctuant in her mood. I told her if this continues she should consider maybe going back on the drug. She will talk to her primary doctor about this. Her blood pressure at home is typically over 130/80, occasionally not. We have been hesitant to increase Lotrel as not to increase her peripheral edema. She has had myalgias on Lipitor before and is on Crestor now tolerating this well. Her lipids are very near goal. Her LDL is 76 and down from the 100s. Her HDL is fine and her triglycerides are as well. Crestor is more cost prohibitive butI have sampled her and she will be out of the donut hole. She has had cellulitis in her lower extremities with vein stripping so edema is chronic which looks pretty controlled today. She denies any cardiac symptoms and is planning to leave for the winter months right before [place]. PAST HISTORY Past Medical Illnesses: hyperlipidemia, hypertension, obesity, cellulitis, benign breast bx, lung nodule (followed by CT perpmd), varicose vein Past Cardiac Illnesses: coronary artery disease, S/P myocardial infarction-anterior, VF arrest with FL, NSVT immed after FL,Lat FL 1980, Ant FL (Vfib) 6- Cath-PTCA LAD(too tortuous for stent), [...] of - [place]; REVIEW OF SYSTEMS GENERAL denies recent weight loss, weight gain, fever or chills or change in exercise tolerance. INTEGUMENTARY denies any change in hair or nails, rashes, or skin lesions. EYES wears eye glasses/contact lenses EARS, NOSE, THROAT, MOUTH denies any hearing loss, epistaxis, hoarseness or difficulty speaking. RESPIRATORY dyspnea CARDIOVASCULAR edema,severe varicosities ABDOMINAL denies ulcer disease, hematochezia or melena. MUSCULOSKELETAL denies any history of venous insufficiency, arthritic symptoms or back problems. NEUROLOGICAL denies any history of recurrent strokes, TIA, or seizure disorder. PSYCHIATRIC stress, depression, anxiety ENDOCRINE , hyperlipidemia HEMATOLOGICAL/IMMUNOLOGIC medication allergies PHYSICAL EXAMINATION VITAL SIGNS: Blood Pressure: 134/80 Sitting, Left arm, large cuff Pulse- 80.00/min. Weight- 245.60 lbs. Height- 65.00 Temperature- .00 CONSTITUTIONAL cooperative [...] and place. MEDICATIONS UPDATED/STARTED TODAY: Normodyne 100 mg, 1 p.o. b.i.d. fill with labetolol, #60 MEDICATIONS REFILLED/STOPPED TODAY: Paxil 10 mg 1/2 tab q.d. DIRECTED Physician Order and Metoprolol Tartrate 50 Mg 1/2 tablet in am and 1 tablet in pm #135 Physician Order IMPRESSIONS/PLAN 1. Coronary artery disease with history of cardiac arrest, moderate LAD disease. She will have a nuclear test in October and see Dr. Martinez back. We will continue her same medications for risk factor prevention. 2. Dyslipidemia improved on Crestor therapy. I would continue the same dose. She is going toattempt a few pounds of weight loss, more exercise and less fat in her diet. She says that her diet was a bit off when she was going through Paxil withdrawal. I will repeat her lipids in six months. 3.Hypertension poorly controlled. I am going to change her to labetalol 100mg twice daily. I will see her back in two weeks before she leaves. I have asked her to call me if she becomes light-headed or has side effects as I can go down to 50mg twice a day if need be. I will plan on seeing her in about two weeks. TODAYS ORDERS 1. Lipid profile/ALT 1 day 2. F/U with Jesús Almanza, MSN, ANP 2-add to blocked time at 3pm Jesús Almanza, N.P. documented in this encounter Plan of Treatment Not on filedocumented as of this encounter Visit Diagnoses Not on filedocumented in this encounter Care Teams Real Estate Loan Processor Relationship Specialty Start Date End Date Alicia Nice MD PCP - General Family Practice 08/25/12 6 Les Fair MD PCP - General Family Practice 08/23/15 12/29/15 [address] [place] [address] [facility] PCP - General 12/30/15 10/15/16 [address] [place] [address] None PCP - General 10/16/16 01/10/17 Allyson Pool PA PCP - General 04/27/17 [facility] [address] [place] [address] Guillermo Martinez MD MD Cardiology 11/15/17 [address] [place] [address] documented as of this encounter
--- OUTSIDE RECORDS SUMMARY | 2022-02-21 10:35 | XMS_ITS | Encounter Summary ---
:1935 Author Organization [place] Address [address] [facility] [place] [address] Care Team Providers Name Role Phone Alicia Nice MD Primary Care Provider Unavailable Les Fair MD Primary Care Provider [facility] Primary Care Provider [phone] None Primary Care Provider Unavailable Allyson Pool Primary Care Provider Guillermo Martinez MD Unavailable Encounter Details Date Type Department Care Team Description 11/22/2003 Office Visit-[facility] Heart Unknown, Oscart MD azam [address] [address] Social History Tobacco Use Types Packs/Day Years Used Date Smoking Tobacco: Never Assessed Sex Assigned at Date Recorded Not on file documented as of this encounter Progress Notes Unknown, DoctorMD - 11/24/2003 12:57 PM CDT Progress Note Created by: Guillermo Martinez M.D. DATE: 11/22/2003 WAQAR LUNDBERG DATE OF : 1935 AGE: [age] years old Referring Physician: ALICIA NICE Referring Clinic: [facility] CURRENT DIAGNOSES 1. - CAD, 414.00 2. Hypertension-Essential (Benign), 401.1 3. - Hyperlipidemia, 272.4 4. Status post-PTCA, v45.82 5. Obesity-(<LT>100 ), 278.00 6. [place]-Acute Anterior, 410.11 7. Ventricular tachycardia, 427.1 ALLERGIES [...] 0.4 mg, PRN CHIEF COMPLAINTS Followup of - CAD HISTORY OF PRESENT ILLNESS Waqar Lundberg returns for follow up of her coronary disease. She had a remote myocardial infarction.We met her when she had an anterior infarction a year ago complicated by V fib cardiac arrest. She also has hyperlipidemia and moderate three-vessel disease. Since her angioplasty she has had no further heart symptoms. She reports feeling well. No palpitations. No dizziness. She has mild chronic ankleedema, partially due to being overweight, partially due to venous varicosities and vein stripping and partially due to recurrent cellulitis. Her blood pressure is high today, although she thinks it is more doctor's office high blood pressure. I am still concerned about it. I am going to switch her Lotensin to Lotrel but we have to be careful watching for worsening ankle edema on the Norvasc. If the Norvasc makes the ankle edema worse, I would probably go back to Lotensin and instead increase the beta rosy or switch to labetalol. I will ask her to come back in two weeks. In the interim I am goingto check an electrolyte panel because she tells me she always has a low potassium. This is importantfor two points. One is that she had a V fib cardiac arrest and it is important to keep her potassiumnormal. The second is this may be a red flag for Conn's syndrome. She is on Dyazide and if her potassium is low we may need to work her up for Conn's syndrome, but she may also be better served by Aldactone rather than Dyazide. PAST HISTORY Past Medical Illnesses: hyperlipidemia, hypertension, obesity, cellulitis Past Cardiac Illnesses: coronary artery disease, S/P myocardial infarction-anterior, VF arrest with [place], NSVT immed after [place],Lat [place] 1980, Ant [place] (Vfib) 10-13 Cath-PTCA LAD(too tortuous for stent), [...] always; Occupation - retired; Place of - [place]; ____ REVIEW OF SYSTEMS GENERAL weight gain, 8.2 lbs, feels well, no change in exercise [...] disorders. PHYSICAL EXAMINATION VITAL SIGNS: Blood Pressure: 156/80 Sitting, Right arm, large cuff 174/90 Retaken by Pulse- 58.00/min. Weight- 224.80 lbs. Height- 64.00 Temperature- .00 CONSTITUTIONAL cooperative, [...] time, person and place. MEDICATIONS UPDATED TODAY: Lotrel 5 mg-20 mg, 1 p.o. q.d., #30 MEDICATION STOPPED TODAY: Lotensin 20 Mg IMPRESSIONS/PLAN We did a stress test in April. I think we can wait at least a year for the next one. We reviewedher lipid profile today. It is completely normal. I answered all of her additional questions that she had regarding her medications. We are going to go ahead and stop the folic acid. She also asked me about switching from Niaspan to Slo-Niacin for cost reasons. I discussed with her if she does make a switch to go to 500 mg b.i.d. with food. We also discussed Plavix. Although she has moderate three-vessel disease my preference would be that she be on it if she can afford it, but if cost is an issue Moises not believe the medicine adds that much additional benefit now that we are a year out from her original infarct. Total consult time: 35 minutes. TODAYS ORDERS 1. Return Visit 1 year 2. Lipid profile/ALT 1 year 3. Basic Metabolic Panel Today 4. F/U with Christine Che M.D. documented in this encounter Plan of Treatment Not on filedocumented as of this encounter Visit Diagnoses Not on filedocumented in this encounter Care Teams Ballpoint Pen Assembly Machine Operator Relationship Specialty Start Date End Date Alicia Nice MD PCP - General Family Practice 08/25/12 6 Les Fair MD PCP - General Family Practice 08/23/15 12/29/15 [address] [place] [address] [facility] PCP - General 12/30/15 10/15/16 [address] [place] [address] None PCP - General 10/16/16 01/10/17 Allyson Pool PA PCP - General 04/27/17 [facility] [address] [place] [address] Guillermo Martinez MD MD Cardiology 11/15/17 [address] [place] [address] documented as of this encounter
--- OUTSIDE RECORDS SUMMARY | 2022-02-21 10:35 | XMS_ITS | Encounter Summary ---
:1935 Author Organization [place] Address [address] [place] [address] Care Team Providers Name Role Phone Alicia Nice MD Primary Care Provider Unavailable Les Fair MD Primary Care Provider Encounter Details Date Type Department Care Team Description 12/21/2002 Historic Results [facility] Unknown, [facility] [address] [place] [address] Social History Tobacco Use Types Packs/Day Years Used Date Smoking Tobacco: Never Assessed Sex Assigned at Date Recorded Not on file documented as of this encounter Plan of Treatment Not on filedocumented as of this encounter Procedures Procedure Name Priority Date/Time Associated Diagnosis Comme nts NUCLEAR CARDIAC - HIM 12/21/2002 12:00 AM CDT SCAN - ARCHIVE documented in this encounter Results NUCLEAR CARDIAC - HIM SCAN - ARCHIVE (12/21/2002 12:00 AM CDT) Anatomical Region Laterality Modality Other Specimen (Source) Anatomical Location Collection Method / Collectio n Time Received Time / Laterality Volume 12/21/2002 Narrative This result has an attachment that is no t available. Provider Scan IMG NM ORDERABLES documented in this encounter Visit Diagnoses Not on filedocumented in this encounter Care Teams Svp Research And Strategic Analysis Relationship Specialty Start Date End Date Alicia Nice MD PCP - General Family Practice 08/25/12 6 Les Fair MD PCP - General Family Practice 08/23/15 12/29/15 [address] [place] [address] documented as of this encounter
--- OUTSIDE RECORDS SUMMARY | 2022-02-21 10:36 | XMS_ITS | Clinical Summary ---
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 film insufficiency, unspecified 10/23/2006 Family History Medical History Relation Name Comments Hypertension Mother Hypertension Sister Relation Name Status Comments Mother Sister Social History Tobacco Use Types Packs/Day Years Used Date Never Smoker Alcohol Use Standard Drinks/Week Comments Not Asked 0 (1 standard drink = 0.6 oz pure alcoho l) Sex Assigned at Date Recorded Not on file Obstetrics History Last Filed Vital Signs Vital Sign Reading Time Taken Comments Blood Pressure 136/91 10/23/2006 9:45 AM CDT Pulse - - Temperature - - Respiratory Rate - - Oxygen Saturation - - Inhaled Oxygen Concentration - - Weight - - Height - - Body Mass Index - - Plan of Treatment Health Maintenance Due Date Last Done Comments COVID-19 vaccine series (#1) 05/26/1936 03/24/2021, 021, 06/18/2020 Tdap 1948 Depression screening for age 12+ 1949 BMI (ht and wt on same day) for age 0711/24/1955 18+ Tetanus booster 1957 Zoster (shingles) series for age 50+ 11/24/1987 (1 of 2) DEXA/DXA scan for age 65+ 2002 Pneumococcal series for age 65+ (1 - 2002 PCV) Influenza for age 65+ 01/11/2022 Results Not on filefrom Last 3 Months Insurance Payer Benefit Plan / Subscriber ID Effective Phone Address T ype Group Dates MEDICARE PART B MEDICARE PART B [id number] 2002-Pres A TTN: CLAIMS - HB USE ONLY HB ONLY ent [address] [place] [address] MEDICARE - PB MEDICARE PB [id number] Effective for ATTN: C LAIMS USE ONLY ONLY all dates [address] [place] [address] COMMERCIAL COMMERCIAL [id number] 2004-Pres [phone] CLAIMS ent [address] [address] [place] [address] BLUE CROSS BLUE CROSS OF [id number] 2016-Pres [id number] [place] [phone] Care Teams Television News Photographer Relationship Specialty Start Date End Date Alicia Nice MD PCP - General 09/07/06 [address] [place], [place] [id number]
[2022-02-21 10:38] LABS: Blood Urea Nitrogen* 14 mg/dL (7-30); Calcium* 9.2 mg/dL (8.4-10.6); Carbon Dioxide* 29 mmol/L (20-32); Creatinine* 0.8 mg/dL (0.5-1.5); Est. Creatinine Clearance* 37.68; Estimated Glomerular Filt Rate 73 ml/min; Glucose* 108 mg/dL (60-115); SARS Antigen* Negative (Negative)
--- NOTE | 2022-02-21 10:56 | ED.NURSE ---
Attempted to collect urine. Pt not able to leave sample at this time.
[2022-02-21] MEDS: POTASSIUM BICARB 25 MEQ EFFERVESCENT TAB PO (11:08)
[2022-02-21 12:47] LABS: Appearance Urine Cloudy (Clear); Bilirubin Urine 2+ (Negative); Color Urine Orange (Yellow); Glucose Urine Negative (Negative); Ketones Urine 1+ (Negative); Specific Gravity Urine 1.025 (1.000-1.030)
[2022-02-21 12:48] LABS: Bacteria Urine Many; Blood Urine 1+ (Negative); Leukocyte Esterase Urine 3+ (Negative); Nitrite Urine Positive (Negative); Protein Urine 2+ (Negative); RBC Urine 0-2 (0-2); Squamous Epithelial Cell Urine Few (None-Few); WBC Urine 50-100 (0-5); pH Urine 5.5 (5.0-8.5)
[2022-02-21 13:08] VITALS: BP 131/118; PULSE 92; RESP 18; TEMP 36.7; O2SAT 93
[2022-02-21] MEDS: cefTRIAXone 500 MG VIAL IM (13:25)
[2022-02-21] MEDS: LIDOCAINE 1% 5 ml (pf) 5 ML VIAL 1 ML IM (13:25)
--- NOTE | 2022-02-21 14:25 | PC.SOCIAL ---
Addendum entered by BORIS Mckenna 02/22/22 16:26: Contacted 8 home care agencies and they did not have availability. [facility] and [facility] @ [phone], [phone] are checking availbility. Still waiting to hear back from [facility] out of [place]. fiscal services director will follow-up with pt.'s daughter. A referral was made to the [facility]. [facility] said [facility] had 14 referrals for their opening. Original Note: Met with pt. who has dementia, spouse Ed at [phone], and spoke with pt.'s daughter Onel Armendariz @ [phone]. Pt. here with a UTI and per Ed has been harder to care for at home. Ed has called [facility] and [facility] for placement for pt. and they have no openings. No nursing homes in the area have availability. [facility] has a possible opening tomorrow and pt.'s information has been sent to assess. Gave Ed resources on area home stager agencies, respite options, memory care [place], Adult Day Care and home care. Will also make a referral to the [facility] for assistance for pt. Pt.'s daughter Onel states that pt. is on MA and has a worker at [facility]. If the [facility] cannot assist will try to get pt. home care.
--- NOTE | 2022-02-21 14:27 | ED.NURSE ---
Orders written for possible prison placement. [facility] in social work will continue to look into options for placement or home care. Pt's spouse is aware of this and will await call from [facility]. Pt d/c to home with spouse.
--- NOTE | 2022-02-23 16:49 | PC.SOCIAL ---
Made a follow up phone call to Corrine at [facility] regarding potential home health care for pt. Corrine informed that she has no availability for this week/weekend for pt. Corrine informed that she has a nurse that is coming back from vacation next week so she may have availability and states that she will have an update next week. Made a follow up phone call to [facility] at [phone]. Spoke to intake department and they stated that they are declining to accept pt due to the amount of care the pt requires and the amount that pt's insurance can pay for the care. Received a phone call from pt's . Pt's asked for an update. Informed pt's that social work has been unable to locate services. Pt's states that he is overwhelmed with caring for pt as he states that she has sat in the chair and been incontinent in the chair. Pt's states that if pt goes to the bathroom she comes out without her depends on and sits back in the chair. This worker informed if he feels he is unable to care for pt then he can take her to the emergency department at any hospital and get another assessment. Pt asks that this worker updates his daughter, Onel Armendariz. Phone call to pt's daughter, Onel Armendariz. Provided updated information that social work has been unable to locate home health services, but will continue to look for services. Informed daughter that if she feels the family is unable to care for pt then they can take her to the emergency department at any hospital and get another assessment.
== END 2022-02-21 14:27 | disposition home or self-care (01) ==
PROVIDERS: Emergency Provider Family Medicine
DX: F03.90 Unspecified dementia, unspecified severity, without behavioral disturbance, psychotic disturbance, mood disturbance, and anxiety (principal); N39.0 Urinary tract infection, site not specified
CPT/HCPCS: 36415; 71045; 80048; 81001; 85025; 87086; 87186; 87426; 87635; 96372; 99283; 99284; A9270; J0696

== ENCOUNTER 2022-02-24 14:11 | Observation (INO) | payer OTHER, BC, SELFPAY ==
[2022-02-24] VITALS (7 sets, daily range): BP systolic 140–161; BP diastolic 81–106; PULSE 61–88; RESP 16–20; TEMP 35.9–37.1; O2SAT 95–97; BMI 31.9; BMI 31.8
--- OUTSIDE RECORDS SUMMARY | 2022-02-24 15:45 | XMS_ITS | Encounter Summary ---
:1935 Author Organization [facility] Address [address] [place] [address] Support Name Relationship Address Phone Mayo Vyas Unavailable [address] [place] [address] Onel Armendariz Unavailable Unavailable Parveen Saeed Team Providers Name Role Phone Justin Arora PA-C Primary Care Provider Reason for Referral Consult/Transfer Care (Routine) - New Request Specialty Diagnoses / Procedures Referred By Contact Refer red To Contact Diagnoses Other fatigue Weight loss Appetite loss Brady Renee MD [address] [place], [place] [address] Referral ID Status Reason Start Date Expiration Date Visits V isits Requested Authorized [id number] New Request 01/31/2022 05/02/2023 1 1 Scheduling Instructions Your provider has recommended an appoint ment with Roseline Thomas [facility]. You can quickly make your appointment online at Picateers/schedule. You can also call [phone] for help scheduling yo ur appointment. We suggest you call your health insurance company about your cove rage and benefits for this appointment. Reason for Visit Reason Comments FATIGUE Encounter Details Date Type Department Care Team Description 01/31/2022 Office Visit [place] [address] Urgent Brady Renee , Other fatigue; Parveen EVANGELISTA Weight loss; [address] [place] [address] [address] [phone] [place] [address] (Wo rk) Social History Tobacco [...] 01/31/2022 2:40 PM CDT Nursing Notes: Ginger Ntah RN 01/31/22 5763 Addendum Fidelia Vyas is a 86 y.o.female presents to the Urgent Care for FATIGUE . Patient presents with daughter, who reports her dad (is patients assistant womens volleyball coach) that Fidelia has been having increased fatigue [...] daughter, who reports her dad (is patients assistant womens volleyball coach) that Fidelia has been having increased fatigue [...] Signature TSH, Sensitive 1.63 0.30 - 02/01/2022 [facility] 4.50 2:35 PM CDT LABORATORY uIU/mL Specimen Anatomical Collection Method / Collection Time Recei miladis Time (Source) Location / Volume Laterality Blood Venipuncture / 01/31/2022 3:50 01/31/2022 3:50 Unknown PM CDT PM CDT Brady Renee MD LAB_1 Performing Organization Address City/State/ZIP Code Phon e Number [facility] [address] [place] [address] C-Reactive Protein (01/31/2022 3:50 PM CDT) athologist Signature C-Reactive <0.5 0.0 - 0.7 01/31/2022 [facility] Protein mg/dL 5:30 PM CDT LABORATORY Specimen Anatomical Collection Method / Collection Time Recei miladis Time (Source) Location / Volume Laterality Blood Venipuncture / 01/31/2022 3:50 01/31/2022 3:50 Unknown PM CDT PM CDT Brady Renee MD LAB_1 Performing Organization Address City/[facility]/ZIP Code Phon e Number [facility] [address] [place] [address] (ABNORMAL) Comp Metabolic Panel (01/31/2022 3:50 PM CDT) [facility] Method Time Signature Sodium 136 136 - 145 01/31/2022 [facility] mmol/L 5:30 PM CDT LABORATORY Potassium 3.2 (L) 3.5 - 5.1 01/31/2022 [facility] mmol/L 5:30 PM CDT LABORATORY Chloride 92 (L) 98 - 109 01/31/2022 [facility] mmol/L 5:30 PM CDT LABORATORY CO2 32 (H) 20 - 29 01/31/2022 [facility] mmol/L 5:30 PM CDT LABORATORY Anion Gap 12 7 - 16 01/31/2022 [facility] mmol/L 5:30 PM CDT LABORATORY Calcium 9.1 8.4 - 10.4 01/31/2022 [facility] mg/dL 5:30 PM CDT LABORATORY BUN 13 7 - 26 01/31/2022 [facility] mg/dL 5:30 PM CDT LABORATORY Creatinine 0.80 0.55 - 01/31/2022 [facility] 1.02 mg/dL 5:30 PM CDT LABORATORY GFR, Estimated >60 >60 01/31/2022 [facility] mL/min/1.7 5:30 PM CDT LABORATORY 3m2 Alkaline 49 40 - 150 01/31/2022 [facility] Phosphatase U/L 5:30 PM CDT LABORATORY AST (SGOT) 24 10 - 40 01/31/2022 [facility] U/L 5:30 PM CDT LABORATORY ALT (SGPT) 14 0 - 55 U/L 01/31/2022 [facility] 5:30 PM CDT LABORATORY Bilirubin, Total 1.2 0.2 - 1.2 01/31/2022 [facility] mg/dL 5:30 PM CDT LABORATORY Protein, Total 7.3 6.4 - 8.3 01/31/2022 [facility] g/dL 5:30 PM CDT LABORATORY Albumin 3.9 3.5 - 5.0 01/31/2022 [facility] g/dL 5:30 PM CDT LABORATORY Glucose 98 70 - 100 01/31/2022 [facility] mg/dL 5:30 PM CDT LABORATORY Comment: The [...] Organization Address City/State/ZIP Code Phon e Number [facility] [address] [place] [address] [facility] [address] [place] [address], [facility] documented in this encounter Visit Diagnoses Diagnosis Other fatigue Weight loss Loss of weight Appetite loss Anorexia documented in this encounter Care Teams Brain Wave Technician Relationship Specialty Start Date End Date Justin Arora PA-C PCP - General Physician Hims Coder 07/24/21 [address] [place] [address] Erin ESCALANTE Cigarette Inspector 10/24/17 BORIS Desir [phone] Fatou Haile Cigarette Inspector 06/03/18 mauri ESCALANTE Mimeographer 05/28/19 documented as of this encounter
--- OUTSIDE RECORDS SUMMARY | 2022-02-24 15:45 | XMS_ITS | Encounter Summary ---
:1935 Author Organization [email or web address] Address [address] [place] [address] Care Team Providers Name Role Phone Justin Arora PA-C Primary Care Provider Reason for Visit Reason Comments Dme Supply Encounter Details Date Type Department Care Team Description 12/08/2021 Telephone [place] [address] Family Jb Arora PA-C Dme Supply Medicine [address] [facility] [address] [place] [address] [place] [address] [phone] Social History Tobacco Use Types Packs/Day Years [...] currently working with a DME vendor? Yes: [facility] How would you like to receive your completed DME order? Fax to [facility] at this fax number: [phone] When were you seen last for this [...] Primary documented in this encounter Care Teams Electrician Deck Relationship Specialty Start Date End Date Justin Arora PA-C PCP - General Physician Treating Machine Operator 07/24/21 [address] [place] [address] Erin ESCALANTE Safe Deposit Box Rental Clerk 10/24/17 BORIS Desir [phone] Fatou Haile Safe Deposit Box Rental Clerk 06/03/18 mauri PRADOW Specimen Preparation Assistant 05/28/19 documented as of this encounter
--- OUTSIDE RECORDS SUMMARY | 2022-02-24 15:45 | XMS_ITS | Clinical Summary ---
:1935 Author Organization [employer] Address [address] [place] [address] Care Team Providers Name Role Phone Justin [...] for each transition of care or referral. [facility] Allergies Active Allergy Reactions Severity Noted Date [...] Tablets (2.5 Essential hypertension mg) by mouth ([facility]) daily. rosuvastatin (CRESTOR) Take 1 Tablet 90 Tablet 3 06/23/2021 Active 40 MG (40 mg) by tabletIndications: mouth daily. Hyperlipidemia, unspecified hyperlipidemia type ([facility]) triamterene-hydrochloro Take 0.5 90 Tablet 3 [...] original. BORIS Desir [facility] Care Coord inator [phone] Problem Noted Date Age-related osteoporosis without current pathological fracture 05/19/2020 Osteoporosis 07/13/2019 Overview: DEXA 2020 Incontinence 10/22/2018 Dementia in Alzheimer's disease 06/26/2018 Complex care coordination 06/03/2018 Overview: BORIS Desir [employer], Blue Plus Plan. PERS and care coordination [phone] Cervical myelopathy 07/08/2017 Overview: Added automatically from request for vy lawson [id number] Muscle weakness (generalized) 07/08/2017 Overview: Added automatically from request for vy lawson [id number] Stenosis, cervical spine 07/08/2017 Overview: Added automatically from request for vy lawson [id number] Thyroid nodule 05/17/2017 Overview: Stable in 2019 [...] 01/28/2017 Old myocardial infarction 09/29/2016 Overview: Sees career center advisor at [place]. Records i n care everywhere. Seen in November 2017 by her career center advisor Dr. Guillermo Martinez. Has known her for [...] for ischemia. We took her to the [facility], and she had a 50%-60% narrowing in [...] testing in the past. Overview: Followed by [place] cardiolog y with VFib Arrest, SVT immediately after AR Back in 1980, she had an unrecognized [...] COU GH; COVID 12/08/2021 Telephone Family Medicine Jutsin Arora PA-C Dme Supply 12/06/2021 Telephone Family Medicine Justin Arora PA-C Que stions from Last 3 Months Immunizations Name Administration Dates Next Due Flu Vac Preserv Free (3+yrs) 03/03/2004 Influenza IIV3 (Trivalent) Fluzone 03/29/2020, 04/29/2019, 1 06/02/2018, Highdose, 65+ Yrs (57825) 04/01/2018, 05/15/2017 Influenza IIV4 (Quadrivalent) 0.5mL 02/09/2016, 02/16/2015, 02/23/2014, (21300) 02/11/2013, 02/01/2012, 04/26/2011 Influenza IIV4 (Quadrivalent) 03/28/2021 [...] Signature WBC 6.9 3.5 - 10.5 01/31/2022 [facility] x10(9)/L 4:02 PM CDT RBC 5.52 (H) 3.90 - 01/31/2022 [facility] 5.03 4:02 PM CDT x10(12)/L Hemoglobin 17.1 (H) 12.0 - 01/31/2022 [facility] 15.5 g/dL 4:02 PM CDT HCT 49.0 (H) 34.9 - 01/31/2022 [facility] 44.5 % 4:02 PM CDT MCV 88.8 80.0 - 01/31/2022 [facility] 100.0 fL 4:02 PM CDT MCH 31.0 27.6 - 01/31/2022 [facility] 33.3 pg 4:02 PM CDT MCHC 34.9 31.5 - 01/31/2022 [facility] 35.2 g/dL 4:02 PM CDT RDW 12.5 11.9 - 01/31/2022 [facility] 15.5 % 4:02 PM CDT Platelets 203 150 - 450 01/31/2022 [facility] x10(9)/L 4:02 PM CDT Neutrophil 4.6 1.7 - 7.0 01/31/2022 [facility] Absolute 10(9)/L 4:02 PM CDT Lymphocyte 1.8 1.0 - 4.8 01/31/2022 [facility] Absolute 10(9)/L 4:02 PM CDT Monocytes 0.5 0.2 - 0.9 01/31/2022 [facility] Absolute 10(9)/L 4:02 PM CDT Eosinophil 0.0 0.0 - 0.5 01/31/2022 [facility] Absolute 10(9)/L 4:02 PM CDT Basophil 0.0 0.0 - 0.3 01/31/2022 [facility] Absolute 10(9)/L 4:02 PM CDT Immature Gran % 0.3 0.0 - 0.5 01/31/2022 [facility] % 4:02 PM CDT Specimen Anatomical Collection Method / Collection Time Recei miladis Time (Source) Location / Volume Laterality Blood Venipuncture / 01/31/2022 3:50 01/31/2022 3:50 Unknown PM CDT PM CDT Brady Renee MD LAB_1 Performing Organization Address City/State/ZIP Code Phon e Number [facility] [address] [place] [address] (ABNORMAL) Comp Metabolic Panel (01/31/2022 3:50 PM CDT) [facility] Method Time Signature Sodium 136 136 - 145 01/31/2022 [facility] mmol/L 5:30 PM CDT LABORATORY Potassium 3.2 (L) 3.5 - 5.1 01/31/2022 [facility] mmol/L 5:30 PM CDT LABORATORY Chloride 92 (L) 98 - 109 01/31/2022 [facility] mmol/L 5:30 PM CDT LABORATORY CO2 32 (H) 20 - 29 01/31/2022 [facility] mmol/L 5:30 PM CDT LABORATORY Anion Gap 12 7 - 16 01/31/2022 [facility] mmol/L 5:30 PM CDT LABORATORY Calcium 9.1 8.4 - 10.4 01/31/2022 [facility] mg/dL 5:30 PM CDT LABORATORY BUN 13 7 - 26 01/31/2022 [facility] mg/dL 5:30 PM CDT LABORATORY Creatinine 0.80 0.55 - 01/31/2022 [facility] 1.02 mg/dL 5:30 PM CDT LABORATORY GFR, Estimated >60 >60 01/31/2022 [facility] mL/min/1.7 5:30 PM CDT LABORATORY 3m2 Alkaline 49 40 - 150 01/31/2022 [facility] Phosphatase U/L 5:30 PM CDT LABORATORY AST (SGOT) 24 10 - 40 01/31/2022 [facility] U/L 5:30 PM CDT LABORATORY ALT (SGPT) 14 0 - 55 U/L 01/31/2022 [facility] 5:30 PM CDT LABORATORY Bilirubin, Total 1.2 0.2 - 1.2 01/31/2022 [facility] mg/dL 5:30 PM CDT LABORATORY Protein, Total 7.3 6.4 - 8.3 01/31/2022 [facility] g/dL 5:30 PM CDT LABORATORY Albumin 3.9 3.5 - 5.0 01/31/2022 [facility] g/dL 5:30 PM CDT LABORATORY Glucose 98 70 - 100 01/31/2022 [facility] mg/dL 5:30 PM CDT LABORATORY Comment: The [...] Organization Address City/State/ZIP Code Phon e Number [facility] [address] [place] [address] [facility] [address] [place] [address], [phone] [facility] TSH (01/31/2022 3:50 PM CDT) athologist Signature TSH, Sensitive 1.63 0.30 - 02/01/2022 [facility] 4.50 2:35 PM CDT LABORATORY uIU/mL Specimen Anatomical Collection Method / Collection Time Recei miladis Time (Source) Location / Volume Laterality Blood Venipuncture / 01/31/2022 3:50 01/31/2022 3:50 Unknown PM CDT PM CDT Brady Renee MD LAB_1 Performing Organization Address City/State/ZIP Code Phon e Number [facility] [address] [place] [address] C-Reactive Protein (01/31/2022 3:50 PM CDT) athologist Signature C-Reactive <0.5 0.0 - 0.7 01/31/2022 [facility] Protein mg/dL 5:30 PM CDT LABORATORY Specimen Anatomical Collection Method / Collection Time Recei miladis Time (Source) Location / Volume Laterality Blood Venipuncture / 01/31/2022 3:50 01/31/2022 3:50 Unknown PM CDT PM CDT Brady Renee MD LAB_1 Performing Organization Address City/State/ZIP Code Phon e Number [facility] [address] [place] [address] from Last 3 Months Insurance Payer Benefit Plan / Subscriber ID Effective Dates Phone Addre ss Type Group HUMANA HUMANA MEDICARE [id number] 2019-Presen [phone] Medicare PPO t 8 BCBS BCBS PMAP BLUE [id number] 2020-Prese [address] [address] [place] [address] Asael, Fidelia R Personal/Famil Self 1935 [address] [place] (Home) [address] [place] [address] Sprute, Fidelia R Personal/Famil Self [address] ([place]) [place] [address] Asael, Fidelia R Personal/Famil Self 1935 [address] [place] (Home) [place] [address] Advance Directives Latest Code Status on File Code Status Date Activated Date Inactivated Comments Full Code 07/09/2017 5:30 PM 07/12/2017 1:12 PM Care Teams Quill Layer Relationship Specialty Start Date End Date Justin Arora PA-C PCP - General Physician Water Pump Installer 07/24/21 [address] [place] [address] Erin Meza [facility] Fleece Tier 10/24/17 BORIS Desir [phone] Fatou Haile Fleece Tier 06/03/18 mauri garcia [facility] Sausage Inspector 05/28/19
--- OUTSIDE RECORDS SUMMARY | 2022-02-24 15:45 | XMS_ITS | Encounter Summary ---
:1935 Author Organization [employer] Address [address] [place] [address] Care Team Providers Name Role Phone Justin Arora PA-C Primary Care Provider Encounter Details Date Type Department Care Team Description 01/31/2022 Lab Visit [facility] Other fatigue; [address] [facility] Weight loss; [place] [address] Appetite loss [phone] Social History Tobacco Use Types Packs/Day Years [...] Signature TSH, Sensitive 1.63 0.30 - 02/01/2022 [facility] 4.50 2:35 PM CDT LABORATORY uIU/mL Specimen Anatomical Collection Method / Collection Time Recei miladis Time (Source) Location / Volume Laterality Blood Venipuncture / 01/31/2022 3:50 01/31/2022 3:50 Unknown PM CDT PM CDT Brady Renee MD LAB_1 Performing Organization Address City/State/ZIP Code Phon e Number [facility] [address] [place] [address] (ABNORMAL) Complete Blood Count-W/Diff (01/31/2022 3:50 PM CDT) Analysis Performed At Patho logist Time Signature WBC 6.9 3.5 - 10.5 01/31/2022 [facility] x10(9)/L 4:02 PM CDT RBC 5.52 (H) 3.90 - 01/31/2022 [facility] 5.03 4:02 PM CDT x10(12)/L Hemoglobin 17.1 (H) 12.0 - 01/31/2022 [facility] 15.5 g/dL 4:02 PM CDT HCT 49.0 (H) 34.9 - 01/31/2022 [facility] 44.5 % 4:02 PM CDT MCV 88.8 80.0 - 01/31/2022 [facility] 100.0 fL 4:02 PM CDT MCH 31.0 27.6 - 01/31/2022 [facility] 33.3 pg 4:02 PM CDT MCHC 34.9 31.5 - 01/31/2022 [facility] 35.2 g/dL 4:02 PM CDT RDW 12.5 11.9 - 01/31/2022 [facility] 15.5 % 4:02 PM CDT Platelets 203 150 - 450 01/31/2022 [facility] x10(9)/L 4:02 PM CDT Neutrophil 4.6 1.7 - 7.0 01/31/2022 [facility] Absolute 10(9)/L 4:02 PM CDT Lymphocyte 1.8 1.0 - 4.8 01/31/2022 [facility] Absolute 10(9)/L 4:02 PM CDT Monocytes 0.5 0.2 - 0.9 01/31/2022 [facility] Absolute 10(9)/L 4:02 PM CDT Eosinophil 0.0 0.0 - 0.5 01/31/2022 [facility] Absolute 10(9)/L 4:02 PM CDT Basophil 0.0 0.0 - 0.3 01/31/2022 [facility] Absolute 10(9)/L 4:02 PM CDT Immature Gran % 0.3 0.0 - 0.5 01/31/2022 [facility] % 4:02 PM CDT Specimen Anatomical Collection Method / Collection Time Recei miladis Time (Source) Location / Volume Laterality Blood Venipuncture / 01/31/2022 3:50 01/31/2022 3:50 Unknown PM CDT PM CDT Brady Renee MD LAB_1 Performing Organization Address City/[facility]/ZIP Code Phon e Number [facility] [address] [place] [address] C-Reactive Protein (01/31/2022 3:50 PM CDT) P athologist Signature C-Reactive <0.5 0.0 - 0.7 01/31/2022 [facility] Protein mg/dL 5:30 PM CDT LABORATORY Specimen Anatomical Collection Method / Collection Time Recei miladis Time (Source) Location / Volume Laterality Blood Venipuncture / 01/31/2022 3:50 01/31/2022 3:50 Unknown PM CDT PM CDT Brady Renee MD LAB_1 Performing Organization Address City/State/ZIP Code Phon e Number [facility] [address] [place] [address] (ABNORMAL) Comp Metabolic Panel (01/31/2022 3:50 PM CDT) Patholo gist Method Time Signature Sodium 136 136 - 145 01/31/2022 [facility] mmol/L 5:30 PM CDT LABORATORY Potassium 3.2 (L) 3.5 - 5.1 01/31/2022 [facility] mmol/L 5:30 PM CDT LABORATORY Chloride 92 (L) 98 - 109 01/31/2022 [facility] mmol/L 5:30 PM CDT LABORATORY CO2 32 (H) 20 - 29 01/31/2022 [facility] mmol/L 5:30 PM CDT LABORATORY Anion Gap 12 7 - 16 01/31/2022 [facility] mmol/L 5:30 PM CDT LABORATORY Calcium 9.1 8.4 - 10.4 01/31/2022 [facility] mg/dL 5:30 PM CDT LABORATORY BUN 13 7 - 26 01/31/2022 [facility] mg/dL 5:30 PM CDT LABORATORY Creatinine 0.80 0.55 - 01/31/2022 [facility] 1.02 mg/dL 5:30 PM CDT LABORATORY GFR, Estimated >60 >60 01/31/2022 [facility] mL/min/1.7 5:30 PM CDT LABORATORY 3m2 Alkaline 49 40 - 150 01/31/2022 [facility] Phosphatase U/L 5:30 PM CDT LABORATORY AST (SGOT) 24 10 - 40 01/31/2022 [facility] U/L 5:30 PM CDT LABORATORY ALT (SGPT) 14 0 - 55 U/L 01/31/2022 [facility] 5:30 PM CDT LABORATORY Bilirubin, Total 1.2 0.2 - 1.2 01/31/2022 [facility] mg/dL 5:30 PM CDT LABORATORY Protein, Total 7.3 6.4 - 8.3 01/31/2022 [facility] g/dL 5:30 PM CDT LABORATORY Albumin 3.9 3.5 - 5.0 01/31/2022 [facility] g/dL 5:30 PM CDT LABORATORY Glucose 98 70 - 100 01/31/2022 [facility] mg/dL 5:30 PM CDT LABORATORY Comment: The [...] Organization Address City/State/ZIP Code Phon e Number [facility] [address] [place] [address] [facility] [address] [place] [address], [facility] documented in this encounter Visit Diagnoses Diagnosis Other fatigue Weight loss Loss of weight Appetite loss Anorexia documented in this encounter Care Teams Metal Solderer Relationship Specialty Start Date End Date Justin Arora PA-C PCP - General Physician Electrical Construction Project Manager 07/24/21 [address] [place], [place] [address] Erin ESCALANTE Jewel Supervisor 10/24/17 BORIS Desir [phone] Fatou Haile Jewel Supervisor 06/03/18 mauri ESCALANTE Mixer Driver 05/28/19 documented as of this encounter
--- OUTSIDE RECORDS SUMMARY | 2022-02-24 15:45 | XMS_ITS | Encounter Summary ---
:1935 Author Organization [employer] Address [address] [place] [address] Care Team Providers Name Role Phone Justin Arora PA-C Primary Care Provider Reason for Visit Reason Comments Appt. Work In Request Follow Up, Urgent [facility] Encounter Details Date Type Department Care Team Description 02/06/2022 Nurse Triage [place] [address] Justin Arora, Appt. Wo rk In Request; Family Medicine [facility] Follow Up, Urgent [address] [facility] [address] [facility] Care; [facility]; [place], [place] [facility] [address] [phone] Social History Tobacco Use Types Packs/Day Years [...] normal pattern) Protocols used: Dementia Symptoms and Omikkhfxb-PBMOZ-AE Spoke with pt's daughter. Verbal disclosure on [...] others.States that her Dad is the primary childcare attendant for pt at this time. Not [...] filedocumented in this encounter Care Teams Manager Clinical Informatics Relationship Specialty Start Date End Date Justin Arora PA-C PCP - General Physician Ceramic Sprayer 07/24/21 [address] [place] [address] Erin ESCALANTE Stretch Box Tender 10/24/17 BORIS Desir [phone] Fatou Haile Stretch Box Tender 06/03/18 mauri PRADOW Management Developer 05/28/19 documented as of this encounter
--- OUTSIDE RECORDS SUMMARY | 2022-02-24 15:45 | XMS_ITS | Encounter Summary ---
:1935 Author Organization [employer] Address [address] [place] [address] Care Team Providers Name Role Phone Justin Arora PA-C Primary Care Provider Reason for Visit Reason Comments Questions, Aftercare Encounter Details Date Type Department Care Team Description 02/01/2022 Nurse Triage [place] [address] Urgent [facility] [place], [place] [address] [address] [phone] Social History Tobacco Use Types Packs/Day Years [...] night regarding labs and possible IV hydration. Balance Staff Staker spoke with provider on staff today, Destin Blum CNP who recommends that if patient is unable to hydrate orally, eat and has continued weakness then she should presents to the ED for hydration and further evaluation of weakness. This sign writer letterer or painter informed daughterOnel. Daughter expressed understanding, and asked what kind of drinks she should be offeringher mother. Balance Staff Staker instructed water, flavored water beverages, teas, gatorade, powerade, boost or ensure. Also encouraged intake of potassium in foods such as bananas. Daughter will encourage and if yadiel ble will present to ED with Fidelia. documented in this encounter Plan of Treatment Not on filedocumented as of this encounter Visit Diagnoses Not on filedocumented in this encounter Care Teams Putter In Relationship Specialty Start Date End Date Justin Arora PA-C PCP - General Physician Director Of Global Talent 07/24/21 [address] [place] [address] Erin ESCALANTE Ladle Liner Helper 10/24/17 BORIS Desir [phone] Fatou Haile Ladle Liner Helper 06/03/18 mauri PRADOW Continuous Improvement Lead 05/28/19 documented as of this encounter
--- OUTSIDE RECORDS SUMMARY | 2022-02-24 15:45 | XMS_ITS | Encounter Summary ---
:1935 Author Organization [employer] Address [address] [place] [address] Care Team Providers Name Role Phone Justin Arora PA-C Primary Care Provider Reason for Visit Reason Comments COUGH COVID Encounter Details Date Type Department Care Team Description 01/24/2022 [address] [place] [id number] [place] [address] Jb Arora PA-C COUGH; COVID Medicine [address] [facility] [address] [place] [address] [place] [address] [phone] Social History Tobacco Use Types Packs/Day Years [...] to a video visit (if applicable). Visit [employer] for our latest on masking and when [...] Resources: Recommended Centers of Disease Control (CDC), [place] Department of Health ([facility]), and [employer] websites for further information on Coronavirus. Advised [...] and provide Paxlovid Patient Education: Where/How to package pick up medication prescription/Medication delivery How to take medication, importance of taking as prescribed and continue until finished If patient needs to begin taking any new prescribed or vqfp-pwm-xyqihha medications or herbal supplements while completing Paxlovid [...] message can be routed back to the spool worker that triaged the patient with your decision. [...] to a video visit (if applicable). Visit [employer] for our latest on masking and when [...] Resources: Recommended Centers of Disease Control (CDC), [place] [facility] ([facility]), and [employer] websites for further information on Coronavirus. Advised [...] , For adults only with sore throat: qkim-fcz-fznoctw throat lozenges or anesthetic sprays can also [...] Primary documented in this encounter Care Teams Genetics Physician Relationship Specialty Start Date End Date Justin Arora PA-C PCP - General Physician R D Engineer 07/24/21 [address] [place] [address] Erin Meza [facility] Food Service Cashier 10/24/17 BORIS Desir [phone] Fatou Haile Food Service Cashier 06/03/18 mauri gacria [facility] Horticulture Supervisor 05/28/19 documented as of this encounter
--- OUTSIDE RECORDS SUMMARY | 2022-02-24 15:46 | XMS_ITS | Encounter Summary ---
:1935 Author Organization [employer] Address [address] [place] [address] Care Team Providers Name Role Phone Justin Arora PA-C Primary Care Provider Reason for Visit Reason Comments Verbal Orders Encounter Details Date Type Department Care Team Description 08/31/[address] Jb Arora PA-C Verbal Orders [facility] [address] [facility] [address] [place] [address] [place] [address] [phone] Social History Tobacco Use Types Packs/Day Years [...] - 08/31/2021 1:29 PM CDT OK to geodetic computator verbal orders for home PT with start [...] filedocumented in this encounter Care Teams Supervisor Powder And Primer Canning Relationship Specialty Start Date End Date Justin Arora PA-C PCP - General Physician Blood Bank Credit Clerk 07/24/21 [address] [place] [address] Erin PRADOW Framing And Hanging 10/24/17 BORIS Desir [phone] Fatou Haile Framing And Hanging 06/03/18 mauri garcia [facility] Hygiene Teacher 05/28/19 documented as of this encounter
--- OUTSIDE RECORDS SUMMARY | 2022-02-24 15:46 | XMS_ITS | Encounter Summary ---
:1935 Author Organization [employer] Address [address] [place] [address] Care Team Providers Name Role Phone Needs Pcp, Assignment Primary Care Provider Reason for Visit Reason Comments Medicare Annual Wellness Encounter Details Date Type Department Care Team Description 06/23/2021 Office Visit [place] [address] Justin Arora Encounte r for Medicare annual wellness exam (Primary Dx); Family Medicine PA-C Essential hypertension; [address] Hyperlipidemia, unspecified hyperlipidem ia type; [place], [place] Anxiety; [address] Dementia in Alzheimer's disease ([facility]); [phone] 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 ([facility]) (Work) Social History Tobacco Use Types Packs/Day [...] Comments Blood Pressure 139/80 06/23/2021 1:11 PM EXECUTIVE SECRETARY Pulse 72 06/23/2021 1:11 PM EXECUTIVE SECRETARY Temperature - - Respiratory Rate 16 06/23/2021 1:11 PM EXECUTIVE SECRETARY Oxygen Saturation - - Inhaled Oxygen Concentration - - Weight 88.9 kg (196 lb) 06/23/2021 1:11 PM EXECUTIVE SECRETARY Height 156.2 cm (5' 1.5) 06/23/2021 1:11 PM EXECUTIVE SECRETARY Body Mass Index 36.43 06/23/2021 1:11 PM EXECUTIVE SECRETARY documented in this encounter Patient Instructions Patient [...] and are not due for another year. UTIVE SECRETARY documented in this encounter Progress Notes Justin [...] Instructions. Justin Arora PA-C 06/23/2021, 1:09 PM UTIVE SECRETARY documented in this encounter Plan of Treatment Not on filedocumented as of this encounter Results Lipid Panel - LDLD If Trig High (06/23/2021 1:52 PM EXECUTIVE SECRETARY) Analysis Performed At [facility] Signature Cholesterol 157 0 - 199 06/23/2021 [facility] mg/dL 5:48 PM EXECUTIVE SECRETARY LABORATORY Triglyceride 109 <=149 06/23/2021 [facility] mg/dL 5:48 PM EXECUTIVE SECRETARY LAB[facility]ORY HDL Cholesterol 58 >=40 mg/dL 06/23/2021 [facility] 5:48 PM EXECUTIVE SECRETARY LAB[facility] LDL, Calculated 77 <130 mg/dL 06/23/2021 [facility] 5:48 PM EXECUTIVE SECRETARY LAB[facility] Non HDL Chol, 99 <=159 06/23/2021 [facility] Calculated mg/dL 5:48 PM EXECUTIVE SECRETARY LABORATORY Cholesterol/HDL 2.7 06/23/2021 [facility] Ratio 5:48 PM EXECUTIVE SECRETARY LABORATORY Hours Fasting 4 06/23/2021 [facility] 5:48 PM EXECUTIVE SECRETARY Specimen Anatomical Collection Method / Collection Time Recei miladis Time (Source) Location / Volume Laterality Blood Venipuncture / 06/23/2021 1:52 06/23/2021 1:52 Unknown PM EXECUTIVE SECRETARY PM EXECUTIVE SECRETARY Justin Arora PA-C LAB_1 Performing Organization Address City/State/ZIP Code Phon e Number [facility] [address] [place] [address] [facility] [address] [place] [address], [facility] (ABNORMAL) Comp Metabolic Panel (06/23/2021 1:52 PM EXECUTIVE SECRETARY) Analysis Performed At Patho logist Time Signature Sodium 140 136 - 145 06/23/2021 [facility] mmol/L 5:48 PM EXECUTIVE SECRETARY LABORATORY Potassium 3.5 3.5 - 5.1 06/23/2021 [facility] mmol/L 5:48 PM EXECUTIVE SECRETARY LABORATORY Chloride 103 98 - 109 06/23/2021 [facility] mmol/L 5:48 PM EXECUTIVE SECRETARY LABORATORY CO2 30 (H) 20 - 29 06/23/2021 [facility] mmol/L 5:48 PM EXECUTIVE SECRETARY LABORATORY Anion Gap 7 7 - 16 06/23/2021 [facility] mmol/L 5:48 PM EXECUTIVE SECRETARY LABORATORY Calcium 8.6 8.4 - 10.4 06/23/2021 [facility] mg/dL 5:48 PM EXECUTIVE SECRETARY LABORATORY BUN 9 7 - 26 06/23/2021 [facility] mg/dL 5:48 PM EXECUTIVE SECRETARY LABORATORY Creatinine 0.70 0.55 - 06/23/2021 [facility] 1.02 mg/dL 5:48 PM EXECUTIVE SECRETARY LABORATORY GFR, Estimated >60 >60 06/23/2021 [facility] mL/min/1.7 5:48 PM EXECUTIVE SECRETARY LAB[facility]ATORY 3m2 Alkaline 47 40 - 150 06/23/2021 [facility] Phosphatase U/L 5:48 PM EXECUTIVE SECRETARY LAB[facility]AT[facility] AST (SGOT) 20 10 - 40 06/23/2021 [facility] U/L 5:48 PM EXECUTIVE SECRETARY [facility] ALT (SGPT) <10 0 - 55 U/L 06/23/2021 [facility] 5:48 PM EXECUTIVE SECRETARY [facility] Bilirubin, Total 0.8 0.2 - 1.2 06/23/2021 [facility] mg/dL 5:48 PM EXECUTIVE SECRETARY LAB[facility] Protein, Total 7.0 6.4 - 8.3 06/23/2021 [facility] g/dL 5:48 PM EXECUTIVE SECRETARY LAB[facility]AT[facility] Albumin 3.7 3.5 - 5.0 06/23/2021 [facility] g/dL 5:48 PM EXECUTIVE SECRETARY [facility] Glucose 84 70 - 100 06/23/2021 [facility] mg/dL 5:48 PM EXECUTIVE SECRETARY LAB[facility]ATORY Comment: The given reference range is fo r the fasting state. Non-fasting reference range for glucose is 70 - 180 mg/dL. Hours Fasting 4 06/23/2021 5:48 PM EXECUTIVE SECRETARY [facility] Specimen Anatomical Collection Method / Collection Time Recei miladis Time (Source) Location / Volume Laterality Blood Venipuncture / 06/23/2021 1:52 06/23/2021 1:52 Unknown PM EXECUTIVE SECRETARY PM EXECUTIVE SECRETARY Justin Arora PA-C LAB_1 Performing Organization Address City/State/ZIP Code Phon e Number [facility] [address] [place] [address] [facility] [address] [place] [address], [facility] documented in this encounter Visit Diagnoses Diagnosis Encounter for Medicare annual wellness e xam - Primary Essential hypertension ([facility]) Unspecified essential hypertension Hyperlipidemia, unspecified hyperlipidem ia type ([facility]) Anxiety ([facility]) Anxiety state, unspecified Dementia in Alzheimer's disease ([facility]) Alzheimer's disease Moderate episode of recurrent major depr essive disorder ([facility]) documented in this encounter Care Teams Starting Gate Driver Relationship Specialty Start Date End Date Needs Pcp, Assignment PCP - General 03/01/21 07/23/21 [place] [address] Erin ESCALANTE Labor Economics Teacher 10/24/17 BORIS Desir [phone] Fatou Haile Labor Economics Teacher 06/03/18 mauri ESCALANTE Package Collector 05/28/19 documented as of this encounter
--- OUTSIDE RECORDS SUMMARY | 2022-02-24 15:46 | XMS_ITS | Encounter Summary ---
:1935 Author Organization [facility] Address [address] [place] [address] Care Team Providers Name Role Phone Needs Pcp, Assignment Primary Care Provider Reason for Visit Reason Comments Refill venlafaxine (EFFEXORXR) 37.5 MG 24 hour release capsule [Pharmacy Med Name: VENLAFAXINE ER 37.5MG CAPSUL ES] Encounter Details Date Type Department Care Team Description 04/07/2021 Refill [facility] Needs Pcp, A ssignment Refill (venlafaxine Medicine [facility] (EFFEXORXR) 37.5 MG 24 [address] [place], [place] [address] [Pharmacy Med Name: [phone] VENLAFAX INE ER 37.5MG CAPSULES]) Social History [...] Reason for Refusal: Med replaced or stopped [facility] NURSING FACULTY Interface, Out Surescripts Prov Query - 04/07/2021 [...] mg/dL on 07/08/2020 Age: 85 Powered by [employer], Reference: [id number], 04/07/2021 12:20:12 PM [facility] NURSING FACULTY, Pool: LIBRADO HERNANDEZ REFILL ([id number]) [facility]SING [facility]ACULT[facility] documented in this encounter Plan of Treatment Not on filedocumented as of this encounter Visit Diagnoses Not on filedocumented in this encounter Care Teams Collection Supervisor Relationship Specialty Start Date End Date Needs Pcp, Assignment PCP - General 03/01/21 07/23/21 [place] [address] Erin ESCALANTE Cardiology Physician Assistant 10/24/17 BORIS Desir [phone] Fatou Haile Cardiology Physician Assistant 06/03/18 mauri ESCALANTE Display Associate 05/28/19 documented as of this encounter
--- OUTSIDE RECORDS SUMMARY | 2022-02-24 15:46 | XMS_ITS | Encounter Summary ---
:1935 Author Organization [employer] Address [address] [place] [address] Care Team Providers Name Role Phone Justin Arora PA-C Primary Care Provider Reason for Visit Reason Comments Smelly Urine Encounter Details Date Type Department Care Team Description 09/04/2021 [address] [place] [id number] [place] [address] Jb Arora PA-C Smelly Urine Medicine [address] [facility] [address] [place] [address] [place] [address] [phone] Social History Tobacco Use Types Packs/Day Years [...] include location): Home care nurse calling from [facility] , pt has very fowl [...] on filedocumented in this encounter Care Teams Ripening Room Attendant Relationship Specialty Start Date End Date Justin Arora PA-C PCP - General Physician Application Design Engineer 07/24/21 [address] [place] [address] Erin Meza [facility] Faculty Member 10/24/17 BORIS Desir [phone] Fatou Haile Faculty Member 06/03/18 mauri garcia [facility] Dehairer 05/28/19 documented as of this encounter
--- OUTSIDE RECORDS SUMMARY | 2022-02-24 15:46 | XMS_ITS | Encounter Summary ---
:1935 Author Organization [employer] Address [address] [place] [address] Care Team Providers Name Role Phone Justin Arora PA-C Primary Care Provider Reason for Visit Reason Comments Refill cephalexin (KEFLEX) 500 MG c apsule [Pharmacy Med Name: CEPHALEXIN 500MG CAPSULES] Encounter Details Date Type Department Care Team Description 07/30/[address] Justin Arora R efill (cephalexin Medicine [facility] (KEFLEX) 500 MG capsule [address] [facility] [address] [facility] [Pharmacy Med Name: [place], [place] [address] CEPHALEXIN 500MG [id number] CAPSULES]) [phone] Social History Tobacco Use Types Packs/Day Years [...] ARORA) Next scheduled visit: None Powered by [facility] by [employer], Reference: [id number], 07/30/2021 12:15:31 PM CDT, Pool: BRENDON REFILL ([id number]) documented in this encounter Plan of Treatment Not on filedocumented as of this encounter Visit Diagnoses Diagnosis Cystitis Cystitis, unspecified documented in this encounter Care Teams Windows Deployment Technician Relationship Specialty Start Date End Date Justin Arora PA-C PCP - General Physician Stabilizer Operator 07/24/21 [address] [place] [address] Erin ESCALANTE Animal Herder 10/24/17 BORIS Desir [phone] Fatou Haile Animal Herder 06/03/18 mauri PRADOW Piper Installer 05/28/19 documented as of this encounter
--- OUTSIDE RECORDS SUMMARY | 2022-02-24 15:46 | XMS_ITS | Encounter Summary ---
:1935 Author Organization [employer] Address [address] [place] [address] Care Team Providers Name Role Phone Justin Arora PA-C Primary Care Provider Reason for Visit Reason Comments WALKING, DIFFICULTY Encounter Details Date Type Department Care Team Description 07/24/2021 Telephone [place] [address] Family Justin Arora [place], [facility] Medicine [facility] [address] [facility] [address] [place] [address] [place] [address] (Wo rk) Social History Tobacco Use Types Packs/Day Years Used Date Smoking Tobacco: Never Smokeless Tobacco: Never Alcohol Use Standard Drinks/Week Comments Yes 0 (1 standard drink = 0.6 oz pure alcoho l) rare occasions (1 per month) Sex Assigned at Date Recorded Not on file documented as of this encounter Nursing Notes Trina Chen RN - 07/24/2021 12:49 PM CDT Spoke with pt's daughter regarding unsteady gait over the last week. Pt feels the difficultly is coming from her her hip. There is no pain. Pt has not fallen. Denies any dizziness, headache, changes incognitive behavior for pt. Future Appointments Provider Department Center 07/26/2021 11:00 AM Justin Arora PA-C [place] [address] Family Medicine [facility] Moira Mondragon - [...] on filedocumented in this encounter Care Teams Shipyard Painter Apprentice Relationship Specialty Start Date End Date Justin Arora PA-C PCP - General Physician Nylon Mender 07/24/21 [address] [place] [address] Erin ESCALANTE Multifocal Lens Assembler 10/24/17 BORIS Desir [phone] Fatou Haile Multifocal Lens Assembler 06/03/18 mauri PRADOW Section Maintainer 05/28/19 documented as of this encounter
--- OUTSIDE RECORDS SUMMARY | 2022-02-24 15:46 | XMS_ITS | Encounter Summary ---
:1935 Author Organization [employer] Address [address] [place] [address] Care Team Providers Name Role Phone Needs Pcp, Assignment Primary Care Provider Encounter Details Date Type Department Care Team Description 06/23/2021 Lab Visit [facility] Essential hypertension; [address] [facility] Hyperlipidemia, [place] [address] Social History Tobacco Use [...] hyperte nsion Results for this PANEL PM LANDSCAPE DESIGNER procedure are i n the results section. LIPID PANEL AND Routine 06/23/2021 1:52 Hyperlipidemia, Result s for this DIRECT LDL(IF PM LANDSCAPE DESIGNER unspecified procedure are in NEEDED) hyperlipidemia type the resu lts section. COMPLETE BLOOD Routine 06/23/2021 1:52 Essential hypertension Results for this COUNT-W/DIFF PM LANDSCAPE DESIGNER procedure are i n the results section. COMP METABOLIC PANEL Routine 06/23/2021 1:52 Essential hyperte nsion Results for this PM LANDSCAPE DESIGNER procedure are i n the results section. documented in this encounter Results Complete Blood Count-W/Diff (06/23/2021 1:52 PM LANDSCAPE DESIGNER) P athologist Signature WBC 6.9 3.5 - 10.5 06/23/2021 [facility] x10(9)/L 1:57 PM LANDSCAPE DESIGNER RBC 4.71 3.90 - 06/23/2021 [facility] 5.03 1:57 PM LANDSCAPE DESIGNER x10(12)/L Hemoglobin 14.8 12.0 - 06/23/2021 [facility] 15.5 g/dL 1:57 PM LANDSCAPE DESIGNER HCT 44.1 34.9 - 06/23/2021 [facility] 44.5 % 1:57 PM LANDSCAPE DESIGNER MCV 93.6 80.0 - 06/23/2021 [facility] 100.0 fL 1:57 PM LANDSCAPE DESIGNER MCH 31.4 27.6 - 06/23/2021 [facility] 33.3 pg 1:57 PM LANDSCAPE DESIGNER MCHC 33.6 31.5 - 06/23/2021 [facility] 35.2 g/dL 1:57 PM LANDSCAPE DESIGNER RDW 13.5 11.9 - 06/23/2021 [facility] 15.5 % 1:57 PM LANDSCAPE DESIGNER Platelets 194 150 - 450 06/23/2021 [facility] x10(9)/L 1:57 PM LANDSCAPE DESIGNER Neutrophil 3.5 1.7 - 7.0 06/23/2021 [facility] Absolute 10(9)/L 1:57 PM LANDSCAPE DESIGNER Lymphocyte 2.6 1.0 - 4.8 06/23/2021 [facility] Absolute 10(9)/L 1:57 PM LANDSCAPE DESIGNER Monocytes 0.6 0.2 - 0.9 06/23/2021 [facility] Absolute 10(9)/L 1:57 PM LANDSCAPE DESIGNER Eosinophil 0.1 0.0 - 0.5 06/23/2021 [facility] Absolute 10(9)/L 1:57 PM LANDSCAPE DESIGNER Basophil 0.1 0.0 - 0.3 06/23/2021 [facility] Absolute 10(9)/L 1:57 PM LANDSCAPE DESIGNER Immature Gran % 0.1 0.0 - 0.5 06/23/2021 [facility] % 1:57 PM LANDSCAPE DESIGNER Specimen Anatomical Collection Method / Collection Time Recei miladis Time (Source) Location / Volume Laterality Blood Venipuncture / 06/23/2021 1:52 06/23/2021 1:52 Unknown PM LANDSCAPE DESIGNER PM LANDSCAPE DESIGNER Justin Arora PA-C LAB_1 Performing Organization Address [facility]/ZIP Code Phon e Number [facility] [address] [place] [address] Lipid Panel - LDLD If Trig High (06/23/2021 1:52 PM LANDSCAPE DESIGNER) Analysis Performed At Patho logist Time Signature Cholesterol 157 0 - 199 06/23/2021 [facility] mg/dL 5:48 PM [facility] Triglyceride 109 <=149 06/23/2021 [facility] mg/dL 5:48 PM [facility] HDL Cholesterol 58 >=40 mg/dL 06/23/2021 [facility] 5:48 PM [facility] LDL, Calculated 77 <130 mg/dL 06/23/2021 [facility] 5:48 PM [facility] Non HDL Chol, 99 <=159 06/23/2021 [facility] Calculated mg/dL 5:48 PM [facility] Cholesterol/HDL 2.7 06/23/2021 [facility] Ratio 5:48 PM [facility] Hours Fasting 4 06/23/2021 [facility] 5:48 PM LANDSCAPE DESIGNER Specimen Anatomical Collection Method / Collection Time Recei miladis Time (Source) Location / Volume Laterality Blood Venipuncture / 06/23/2021 1:52 06/23/2021 1:52 Unknown PM LANDSCAPE DESIGNER PM LANDSCAPE DESIGNER Justin Arora PA-C LAB_1 Performing Organization Address City/[facility]/ZIP Code Phon e Number [facility] [address] [place], [place] [address] [facility] [address] [place] [address], [facility] (ABNORMAL) Comp Metabolic Panel (06/23/2021 1:52 PM LANDSCAPE DESIGNER) Analysis Performed At Patho logist Time Signature Sodium 140 136 - 145 06/23/2021 [facility] mmol/L 5:48 PM [facility] Potassium 3.5 3.5 - 5.1 06/23/2021 [facility] mmol/L 5:48 PM [facility] Chloride 103 98 - 109 06/23/2021 [facility] mmol/L 5:48 PM [facility] CO2 30 (H) 20 - 29 06/23/2021 [facility] mmol/L 5:48 PM [facility] Anion Gap 7 7 - 16 06/23/2021 [facility] mmol/L 5:48 PM [facility] Calcium 8.6 8.4 - 10.4 06/23/2021 [facility] mg/dL 5:48 PM [facility] BUN 9 7 - 26 06/23/2021 [facility] mg/dL 5:48 PM [facility] Creatinine 0.70 0.55 - 06/23/2021 [facility] 1.02 mg/dL 5:48 PM [facility] GFR, Estimated >60 >60 06/23/2021 [facility] mL/min/1.7 5:48 PM [facility] 3m2 Alkaline 47 40 - 150 06/23/2021 [facility] Phosphatase U/L 5:48 PM [facility] AST (SGOT) 20 10 - 40 06/23/2021 [facility] U/L 5:48 PM [facility] ALT (SGPT) <10 0 - 55 U/L 06/23/2021 [facility] 5:48 PM [facility] Bilirubin, Total 0.8 0.2 - 1.2 06/23/2021 [facility] mg/dL 5:48 PM [facility] Protein, Total 7.0 6.4 - 8.3 06/23/2021 [facility] g/dL 5:48 PM [facility] Albumin 3.7 3.5 - 5.0 06/23/2021 [facility] g/dL 5:48 PM [facility] Glucose 84 70 - 100 06/23/2021 [facility] mg/dL 5:48 PM [facility] Comment: The given reference range is fo r the fasting state. Non-fasting reference range for glucose is 70 - 180 mg/dL. Hours Fasting 4 06/23/2021 5:48 PM LANDSCAPE DESIGNER [facility] Specimen Anatomical Collection Method / Collection Time Recei miladis Time (Source) Location / Volume Laterality Blood Venipuncture / 06/23/2021 1:52 06/23/2021 1:52 Unknown PM LANDSCAPE DESIGNER PM LANDSCAPE DESIGNER Justin Arora PA-C LAB_1 Performing Organization Address City/State/ZIP Code Phon e Number [facility] [address] [place] [address] [facility] [address] [place] [address], [facility] documented in this encounter Visit Diagnoses Diagnosis Essential hypertension (HRC) Unspecified essential hypertension Hyperlipidemia, unspecified hyperlipidem ia type (HRC) documented in this encounter Care Teams Supermarket Manager Relationship Specialty Start Date End Date Needs Pcp, Assignment PCP - General 03/01/21 07/23/21 [place] [address] Erin ESCALANTE Wall Taper Helper 10/24/17 BORIS Desir [phone] Fatou Haile Wall Taper Helper 06/03/18 mauri ESCALANTE System Integration Engineer 05/28/19 documented as of this encounter
--- OUTSIDE RECORDS SUMMARY | 2022-02-24 15:46 | XMS_ITS | Encounter Summary ---
:1935 Author Organization [facility] Address [address] [place] [address] Care Team Providers Name Role Phone Stephanie Pool PA-C Primary Care Provider Reason for Visit Reason Comments Refill labetalol (TRANDATE) 100 MG tablet [Pharmacy Med Name: LABETALOL 100MG TABLETS] Encounter Details Date Type Department Care Team Description 10/27/2020 Refill [facility] Jose Tang R efnigel (labetalol Medicine (TRANDATE) 100 MG tablet [address] [address] Shashi Avila [Pharmacy Med Name: [place] [address] 230 LABETALOL 100MG [phone] [place] [address] TABLETS]) [phone] (Wo rk) Social History Tobacco Use Types [...] AND 1 TABLET EVERY EVENING Interface, Out [email or web address] Query - 10/27/2020 3:27 AM CDT labetalol [...] POOL) Next scheduled visit: None Powered by [facility] by [employer], Reference: [id number], 10/27/2020 3:27:08 AM CDT, Pool:LIBRADO HERNANDEZ REFILL ([id number]) documented in this encounter Plan of Treatment Not on filedocumented as of this encounter Visit Diagnoses Diagnosis Essential hypertension (HRC) Unspecified essential hypertension documented in this encounter Care Teams Paint Tinter Relationship Specialty Start Date End Date Stephanie Pool PA-C PCP - General Physician Stone Layout Marker 09/26/16 02/28/21 [address] [place] [address] Erin ESCALANTE Cut Off Tender Glass 10/24/17 BORIS eDsir [phone] Fatou Haile Cut Off Tender Glass 06/03/18 mauri ESCALANTE Marketing Communications Manager 05/28/19 documented as of this encounter
--- OUTSIDE RECORDS SUMMARY | 2022-02-24 15:46 | XMS_ITS | Encounter Summary ---
:1935 Author Organization [employer] Address [address] [place] [address] Care Team Providers Name Role Phone Justin Aroar PA-C Primary Care Provider Reason for Visit Reason Comments Home Visit Service Encounter Details Date Type Department Care Team Description 07/28/2021 Telephone [facility] SCHEDULING Justin Arora PA-C Home Visit Service DEPARTMENT [id number] [place] [phone] (Wo rk) Social History Tobacco [...] if order needs to be faxed to [facility]. Alicia Payan LPN - 07/28/2021 10:27 AM CDT Good morning Thank you for this referral for home care. [facility] is at capacity and unable to accept this client. [facility] Int[facility] was able to find an agency that can meet the needs of this client. [facility] [phone]. Client has been informed of acceptance. Please sign and complete visit note. Thanks again, Alicia Payan LPN 07/28/2021, 10:27 AM documented in this encounter Plan of Treatment Not on filedocumented as of this encounter Visit Diagnoses Not on filedocumented in this encounter Care Teams Office Machine Installer Relationship Specialty Start Date End Date Justin Arora PA-C PCP - General Physician Rescue Instructor 07/24/21 [address] [place] [address] Erin ESCALANTE Chief Librarian Branch 10/24/17 BORIS Deisr [phone] Fatou Haile Chief Librarian Branch 06/03/18 mauri garcia [facility] Agency Development Manager 05/28/19 documented as of this encounter
--- OUTSIDE RECORDS SUMMARY | 2022-02-24 15:46 | XMS_ITS | Encounter Summary ---
:1935 Author Organization [facility] Address [address] [place] [address] Care Team Providers Name Role Phone Needs Pcp, Assignment Primary Care Provider Reason for Visit Reason Comments Refill amLODIPine (NORVASC) 5 MG ta blet [Pharmacy Med Name: AMLODIPINE BESYLATE 5MG TABLETS]; triamterene-hydroc hlorothiazide (MAXZIDE-25) 37.5-25 MG tablet [Pharmacy Med Name: TRIAMTER ROSA 37.5MG/ HCTZ 25MG TABS]; rosuvastatin (CRESTOR) 40 MG tablet [facility]: ROSUVASTATIN 40MG TABLETS] Encounter Details Date Type Department Care Team Description 06/10/2021 Refill [facility] Allyson Sanchez PA-C Refill (amLODIPine Medicine [address] (NORVASC) 5 MG tablet [address] [place] [address] [Pharmacy Med Name: [place] [address] AMLODIPINE BESYLATE 5MG [phone] TABLETS]; triamterene-hyd rochlorot hiazide (MAXZID E-25) 37.5-25 [...] visit Patient scheduled appointment on: 06/23/21 in [facility] Do you have enough medication [...] Rx Final quick action to address request. LY COUNSELOR Madie Baron - 06/20/2021 9:53 AM CST [...] encounter high priority to Refill Pool (P [id number]) LY COUNSELOR Binta Centeno RN - 06/13/2021 12:49 PM CST Further Assistance Needed on Refill from Instructional Specialist Patient is overdue for Office visit. -> [...] Sig: TAKE 1/2 TABLET BY MOUTH DAILY LY COUNSELOR Interface, Out Surescripts Prov Query - 06/10/2021 [...] CHÁVEZ) Next scheduled visit: None Powered by [employer] by [employer], Reference: [id number], 06/10/2021 5:54:38 AM Gary RIDER:LIBRADO HERNANDEZ REFILL ([id number]) rosuvastatin (CRESTOR) 40 MG tablet [Pharmacy Med Name: ROSUVASTATIN 40MG TABLETS] Medication started: 07/11/2016 Last ordered by ALLYSON CHÁVEZ: 04/12/2020 (424 days ago) QTY: 90, Refills: 3, Sig: take 1 tablet by mouth daily. (unchanged) -> An office visit is overdue (performed over 14 months ago, required every 12 months). Last qualifying visit: 04/12/2020 (with ALLYSON CHÁVEZ) Next scheduled visit: None Powered by [employer], Reference: [id number], 06/10/2021 5:54:38 AM aGry RIDER:LIBRADO HERNANDEZ REFILL ([id number]) triamterene-hydrochlorothiazide (MAXZIDE-25) 37.5-25 MG tablet [Pharmacy Med [...] K: 3.8 mEq/L on 06/17/2019 Powered by [employer] by [employer], Reference: [id number], 06/10/2021 5:54:38 AM FAMILY COUNSELOR, Pool:LIBRADO IMED REFILL ([id number]) LY COUNSELOR documented in this encounter Plan of Treatment Not on filedocumented as of this encounter Visit Diagnoses Diagnosis Hyperlipidemia, unspecified hyperlipidem ia type (HRC) Essential hypertension (HRC) Unspecified essential hypertension documented in this encounter Care Teams Social Security Assessor Relationship Specialty Start Date End Date Needs Pcp, Assignment PCP - General 03/01/21 07/23/21 [place] [address] Erin ESCALANTE Workers Compensation Paralegal 10/24/17 BORIS Desir [phone] Fatou Haile Workers Compensation Paralegal 06/03/18 mauri PRADOW Service Parts Coordinator 05/28/19 documented as of this encounter
--- OUTSIDE RECORDS SUMMARY | 2022-02-24 15:46 | XMS_ITS | Encounter Summary ---
:1935 Author Organization [employer] [employer] Address [address] [place] [address] Care Team Providers Name Role Phone Stephanie Pool PA-C Primary Care Provider Reason for Visit Reason Onset Date Comments Refill 07/21/2020 aspirin EC 81 MG ent jesenia coated tablet Encounter Details Date Type Department Care Team Description 07/21/2020 Refill [facility] Stephanie Pool PA-C Refill (aspirin EC [address] MG enteric coated [address] [place] [address] tablet) [place] [address] [phone] Social History Tobacco Use Types Packs/Day Years [...] Order Medication Clinician Next Step: Route to [facility] to follow up Specific Request(s): 1. Refill [...] tablet Sig: Take by mouth. Interface, Out [employer] Query - 07/21/2020 11:47 AM CST aspirin [...] POOL) Next scheduled visit: None Powered by [facility], Reference: [id number], 07/21/2020 11:47:25 AM Gary RIDER: LIBRADO HERNANDEZ REFILL([id number]) documented in this encounter Plan of Treatment Not on filedocumented as of this encounter Visit Diagnoses Not on filedocumented in this encounter Care Teams Qualifications Examiner Relationship Specialty Start Date End Date Stephanie Pool PA-C PCP - General Physician Counselor Education Professor 09/26/16 02/28/[address] [place] [address] Erin PRADOW Cotton Cleaner 10/24/17 BORIS Desir [phone] Fatou Haile Cotton Cleaner 06/03/18 mauri PRADOW Product Support Representative 05/28/19 documented as of this encounter
--- OUTSIDE RECORDS SUMMARY | 2022-02-24 15:46 | XMS_ITS | Encounter Summary ---
:1935 Author Organization [facility] Address [address] [place] [address] Care Team Providers Name Role Phone Justin Arora PA-C Primary Care Provider Reason for Visit Procedure/Equipment (Routine) - Incomplete Specialty Diagnoses / Procedures Referred By Contact Refer red To Contact Diagnoses Pain in hip Unsteady gait Urinary incontinence, unspecified type Justin Arora PA-C Procedures XR Pelvis Bilat Hips 2+ Views [address] [place] [address] Referral ID Status Reason Start Date Expiration Date Visits V isits Requested Authorized [id number] Incomplete 07/26/2021 10/25/2022 1 1 Encounter Details Date Type Department Care Team Description 07/26/2021 Ancillary Procedure [facility] Justin Arora, Pain in hip; [address] [facility] GOLDY Unsteady gait; [place] [address] [facility] Urinary incontinence, unspecified type [address] [place], [place] [phone] [address] Social History Tobacco Use Types Packs/Day Years [...] type documented in this encounter Care Teams Beet Flumer Relationship Specialty Start Date End Date Justin Arora PA-C PCP - General Physician Client Development Consultant 07/24/21 [address] [place] [address] Erin ESCALANTE Jukebox Operator 10/24/17 BORIS Desir [phone] Fatou Haile Jukebox Operator 06/03/18 mauri PRADOW Manufacturing Millwright 05/28/19 documented as of this encounter
--- OUTSIDE RECORDS SUMMARY | 2022-02-24 15:46 | XMS_ITS | Encounter Summary ---
:1935 Author Organization [employer] Address [address] [place] [address] Care Team Providers Name Role Phone Needs Pcp, Assignment Primary Care Provider Reason for Visit Reason Comments Follow-up Encounter Details Date Type Department Care Team Description 05/11/2021 Office Visit [facility] Jose Aldridge D ementia in Neurology MD Alzheimer's disease [address] [facility] [address] [place] [phone] (Wo rk) Social History Tobacco Use Types [...] Comments Blood Pressure 136/69 05/11/2021 2:[address] GRADER Pulse 74 05/11/2021 2:[address] GRADER Temperature - - Respiratory Rate 16 05/11/2021 2:[address] GRADER Oxygen Saturation - - Inhaled Oxygen Concentration [...] in about 1 year Jose Aldridge MD GRADER documented in this encounter Progress Notes Jose [...] itself, chart review, documentation. 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
--- OUTSIDE RECORDS SUMMARY | 2022-02-24 15:46 | XMS_ITS | Encounter Summary ---
:1935 Author Organization [email or web address] Address [address] [place] [address] Care Team Providers Name Role Phone Justin Arora PA-C Primary Care Provider Reason for Referral Home Health (Routine) - Closed Specialty Diagnoses / Procedures Referred By Contact Refer red To Contact Diagnoses Pain in hip Unsteady gait Dementia in Alzheimer's disease (HRC) Justin Arora PA-C [address] [place] [address] Referral ID Status Reason Start Date Expiration Date Visits Requ ested Visits Authorized [id number] Closed 07/28/2021 01/24/2022 999 999 Scheduling Instructions [...] ask your clinician's staff to assist you. [facility] (Routine) - New Request Specialty Diagnoses / Procedures Referred By Contact Refer red To Contact Diagnoses Pain in hip Unsteady gait Urinary incontinence, unspecified [place] [address] [place] [address] [place] [address] [place] [address] Phone: Fax: Referral ID Status Reason Start Date Expiration Date Visits V isits Requested Authorized New Request 07/26/2021 10/25/2022 999 999 Scheduling Instructions Your provider has recommended an appoint ment with Home Care. If you have not been contacted, please call [phone] to s janadule your appointment. Consult/Transfer Care (Routine) - New Request Specialty Diagnoses / Procedures Referred By Contact Refer red To Contact Diagnoses Pain in hip Unsteady gait Urinary incontinence, unspecified type Justin Arora PA-C [address] [place] [address] Referral ID Status Reason Start Date Expiration Date Visits V isits Requested Authorized New Request 07/26/2021 10/25/2022 1 1 Scheduling Instructions Your provider has recommended an appoint ment with [facility]. You can quickly make your appointment online at [email or web address]. You can also call [phone] for help scheduling yo ur appointment. We suggest you call your health insurance company about your cove rage and benefits for this appointment. Procedure/Equipment (Routine) - Incomplete Specialty Diagnoses / Procedures Referred By Contact Refer red To Contact Diagnoses Pain in hip Unsteady gait Urinary incontinence, unspecified type Justin Arora PA-C Procedures XR Pelvis Bilat Hips 2+ Views [address] [place] [address] Referral ID Status Reason Start Date Expiration Date Visits V isits Requested Authorized Incomplete 07/26/2021 10/25/2022 1 1 Reason for Visit Reason Comments Back Pain Decreased mobility due to th e back pain x3mo off and on Encounter Details Date Type Department Care Team Description 07/26/2021 Office Visit [place] [address] Justin Arora, Pain in hip (Primary Dx); Family Medicine GOLDY Unsteady gait; [address] Urinary incontinence, unspecified type; [place], [place] Dementia in A lzheimer's disease ([facility]); [id number] Cystitis [phone] Social History Tobacco Use Types Packs/Day Years [...] Pos: Clean Catch (07/26/2021 11:38 AM CDT) [facility] Method Time Signature Urine Culture Urinalysis 07/26/2021 [facility] Comment results meet 11:48 AM LAB criteria for CDT reflex, culture performed. Urine Color Yellow Straw-Yellow 07/26/2021 [facility] 11:48 AM LAB CDT Urine Clarity Hazy (A) Clear 07/26/2021 [facility] 11:48 AM LAB CDT Specific 1.020 1.005 - 07/26/2021 [facility] [place], 1.030 11:48 AM LAB Urine CDT PH Urine 7.0 5.0 - 8.0 07/26/2021 [facility] 11:48 AM LAB CDT Protein, Negative Neg/Trace 07/26/2021 [facility] Urine Qual 11:48 AM LAB (mg/dL) CDT Glucose Urine Negative Negative 07/26/2021 [facility] Qual (mg/dL) 11:48 AM LAB CDT Ketones, Trace (A) Negative 07/26/2021 [facility] Urine (mg/dL) 11:48 AM LAB CDT Urobilinogen, 2.0 (A) <2.0 07/26/2021 [facility] Urine (EU/dL) 11:48 AM LAB CDT Bilirubin Negative Negative 07/26/2021 [facility] Urine 11:48 AM LAB CDT Blood, Urine Trace Neg/Trace 07/26/2021 [facility] 11:48 AM LAB CDT Nitrite Urine Positive (A) Negative 07/26/2021 [facility] 11:48 AM LAB CDT Leukocyte Small (A) Negative 07/26/2021 [facility] Est. 11:48 AM LAB CDT Specimen Anatomical Collection Method Collection Time Receive d Time (Source) Location / / Volume Laterality Urine URINE SPECIMEN Non-blood 07/26/2021 11:38 COLLECTION, CLEAN Collection / AM CDT 11:38 AM C DT CATCH / Unknown Unknown Justin Arora PA-C LAB_1 Performing Organization Address City/State/ZIP Code Phon e Number [facility] [address] [place] [phone] documented in this encounter Visit Diagnoses Diagnosis Pain in hip - Primary Pain in joint, pelvic region and thigh Unsteady gait Abnormality of gait Urinary incontinence, unspecified type Dementia in Alzheimer's disease (HRC) Alzheimer's disease Cystitis Cystitis, unspecified Pain in hip Pain in joint, pelvic region and thigh Unsteady gait Abnormality of gait Urinary incontinence, unspecified type documented in this encounter Care Teams Order Dispatcher Chief Relationship Specialty Start Date End Date Justin Arora PA-C PCP - General Physician Combination Welder 07/24/21 [address] [place] [address] Erin ESCALANTE Supervisor Toy Assembly 10/24/17 BORIS Desir [phone] Fatou Haile Supervisor Toy Assembly 06/03/18 mauri ESCALANTE Wet Plant Operator 05/28/19 documented as of this encounter
--- OUTSIDE RECORDS SUMMARY | 2022-02-24 15:46 | XMS_ITS | Encounter Summary ---
:1935 Author Organization [email or web address] Address [address] [place] [address] Care Team Providers Name Role Phone Needs Pcp, Assignment Primary Care Provider Reason for Visit Reason Comments Refill venlafaxine (EFFEXORXR) 75 M G 24 hour release capsule [Pharmacy Med Name: VENLAFAXINE ER 75MG CAPSULES ] Encounter Details Date Type Department Care Team Description 04/23/2021 Refill [facility] Jose Tang R efill (venlafaxine Medicine (EFFEXORXR) 75 MG 24 [address]768 [facility] [address] Shashi Garcia Austin [place] [address] 230 [Pharmacy Med Name: [phone] [place] [address] VENLAFAXINE ER 75MG [phone] (Wo rk) CAPSULES]) Social History Tobacco Use [...] she couldn't hear me and hung up. TECHNICIAN Ruben Medina RN - 04/25/2021 5:09 PM CST OFFICE APPOINTMENT NEEDED Please notify patient to schedule an appointment within 90 days and establish care with new provider. Former PCP no longer with [facility]. 90 day supply given per Emergency Refill Standing Order. Ruben Medina RN 04/25/2021, 5:08 PM Requested Prescriptions Pending Prescriptions Disp Refills ??? 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
--- OUTSIDE RECORDS SUMMARY | 2022-02-24 15:46 | XMS_ITS | Encounter Summary ---
:1935 Author Organization [email or web address] Address [address] [place] [address] Care Team Providers Name Role Phone Needs Pcp, Assignment Primary Care Provider Reason for Visit Reason Comments Other Encounter Details Date Type Department Care Team Description 06/20/2021 Telephone [facility] No Pcp, No Pcp, Other [id number] [place] [address] Social History Tobacco Use Types Packs/Day Years [...] her upcoming appointment on 06/23/21 at 1pm. INER FEEDER Justin Arora PA-C - 06/21/2021 12:46 PM CST Medications temporarily refilled pending upcoming appointment INER FEEDER Sofia Draper RN - 06/20/2021 10:20 AM [...] PM Justin Arora, GOLDY LKVLFM PN LAKVL INER FEEDER Rose Jones - 06/20/2021 10:02 AM CST [...] I can help you with today? no INER FEEDER documented in this encounter Plan of Treatment Not on filedocumented as of this encounter Visit Diagnoses Diagnosis Essential hypertension (HRC) Unspecified essential hypertension Hyperlipidemia, unspecified hyperlipidem ia type (HRC) documented in this encounter Care Teams Accountancy Professor Relationship Specialty Start Date End Date Needs Pcp, Assignment PCP - General 03/01/21 07/23/21 [place] [address] Erin ESCALANTE Manager Human Capital 10/24/17 BORIS Desir [phone] Fatou Haile Manager Human Capital 06/03/18 mauri ESCALANTE Communications Field Technician 05/28/19 documented as of this encounter
--- OUTSIDE RECORDS SUMMARY | 2022-02-24 15:46 | XMS_ITS | Encounter Summary ---
:1935 Author Organization [facility] Address [address] [place] [address] Care Team Providers Name Role Phone Needs Pcp, Assignment Primary Care Provider Reason for Visit Reason Comments Refill triamterene-hydrochlorothiaz ricky (MAXZIDE-25) 37.5-25 MG tablet [Pharmacy Med Name: TRIAMTERENE 37.5MG/ HC TZ 25MG TABS] Encounter Details Date Type Department Care Team Description 06/21/2021 Refill [facility], Justin Carbajal, Elidiai Medicine PA-C (triamterene-hydrochloro [address] thiazide (MAXZIDE-25) [place] [address] [place] [address] 37.5-25 MG tablet [phone] (Wo rk) [Pharmacy Med Name: TRIAMTERE NE [...] GISELLA PETERSON Reason for Refusal: Duplicate Error LATORY CARE Interface, Out Surescripts Prov Query - 06/21/2021 [...] K: 3.8 mEq/L on 06/17/2019 Powered by [employer] by [employer], Reference: [id number], 06/21/2021 12:47:40 PM AMBULATORY CARE, Gary: LIBRADO HERNANDEZ REFILL ([id number]) LATORY CARE documented in this encounter Plan of Treatment Not on filedocumented as of this encounter Visit Diagnoses Diagnosis Essential hypertension (HRC) Unspecified essential hypertension documented in this encounter Care Teams Electronic Publishing Specialist Relationship Specialty Start Date End Date Needs Pcp, Assignment PCP - General 03/01/21 07/23/21 [place] [address] Erin PRADOW Typewriter Repairer 10/24/17 BORIS Desir [phone] Fatou Haile Typewriter Repairer 06/03/18 mauri garcia [facility] Automobile Radiator Mechanic 05/28/19 documented as of this encounter
--- OUTSIDE RECORDS SUMMARY | 2022-02-24 15:46 | XMS_ITS | Encounter Summary ---
:1935 Author Organization [employer] Address [address] [place] [address] Care Team Providers Name Role Phone Justin Arora PA-C Primary Care Provider Reason for Visit Reason Comments Verbal Orders PT Encounter Details Date Type Department Care Team Description 08/02/[address] Jb Arora PA-C Verbal Orders (PT) Medicine [id number] [place] [address] [place] [address] [place] [address] [phone] Social History Tobacco Use Types Packs/Day Years [...] on filedocumented in this encounter Care Teams Roll Up Operator Relationship Specialty Start Date End Date Justin Arora PA-C PCP - General Physician Laboratory Director 07/24/21 [address] [place] [address] Erin PRADOW Wireless Sales Associate 10/24/17 BORIS Desir [phone] Fatou Haile Wireless Sales Associate 06/03/18 mauri garcia [facility] Meat Stringer 05/28/19 documented as of this encounter
--- OUTSIDE RECORDS SUMMARY | 2022-02-24 15:46 | XMS_ITS | Encounter Summary ---
:1935 Author Organization [employer] Address [address] [place] [place] [address] Care Team Providers Name Role Phone Needs Pcp, Assignment Primary Care Provider Reason for Visit Reason Comments Refill amLODIPine (NORVASC) 5 MG ta blet [Pharmacy Med Name: AMLODIPINE BESYLATE 5MG TABLETS] Encounter Details Date Type Department Care Team Description 04/07/2021 Refill [facility], Stephanie Fink PA-C Refill (amLODIPine Medicine [address] (NORVASC) 5 MG tablet [address] [place] [address] [Pharmacy Med Name: [place] [address]67 AMLODIPINE BESYLATE 5MG [phone] TABLETS]) Social History Tobacco Use Types Packs/Day [...] Sig: TAKE 1/2 TABLET BY MOUTH DAILY Y STAINER Interface, Out DJO Global Prov Query - 04/07/2021 12:20 PM CST [...] CHÁVEZ) Next scheduled visit: None Powered by [employer] by [employer], Reference: [id number], 04/07/2021 12:20:12 PM SPRAY STAINER, Pool: LIBRADO HERNANDEZ REFILL ([id number]) Y STAINER documented in this encounter Plan of Treatment Not on filedocumented as of this encounter Visit Diagnoses Diagnosis Essential hypertension (HRC) Unspecified essential hypertension documented in this encounter Care Teams Dining Services Manager Relationship Specialty Start Date End Date Needs Pcp, Assignment PCP - General 03/01/21 07/23/21 [place] [address] Erin ESCALANTE Culturist 10/24/17 BORIS Desir [phone] Fatou Haile Culturist 06/03/18 mauri ESCALANTE Purchasing Engineer 05/28/19 documented as of this encounter
--- OUTSIDE RECORDS SUMMARY | 2022-02-24 15:46 | XMS_ITS | Encounter Summary ---
:1935 Author Organization [facility] Address [address] [place] [address] Care Team Providers Name Role Phone Justin Arora PA-C Primary Care Provider Encounter Details Date Type Department Care Team Description 09/13/2021 Lab Visit [facility] Foul smelling urine; [address] [place] [address] Social History Tobacco Use [...] (ABNORMAL) Urine Culture (09/13/2021 2:51 PM CDT) [facility] Method Time Signature Urine Culture Growth (A) 09/18/2021 [facility] 7:04 AM [facility] Urine Culture 50,000 - 09/18/2021 [facility] 100,000 CFU/mL 7:[address] [facility] Escherichia coli Comment: This is an [...] Organization Address City/State/[place] [address] (ABNORMAL) UA Micro: Clean Catch (09/13/2021 2:51 PM CDT) [facility] Method Time Signature Red Blood Cells 4-7 (A) 0 - 3 /HPF 09/13/2021 [facility] B 2:59 PM CDT White Blood 21-50 (A) 0 - 5 /HPF 09/13/2021 [facility] Cells 2:59 PM CDT Bacteria Few (A) None Seen 09/13/2021 [facility] /HPF 2:59 PM CDT Squamous Few None Seen, 09/13/2021 [facility] Epithelial Occasional 2:59 PM CDT Cells , Few /HPF Specimen Anatomical Collection Method Collection Time Receive d Time (Source) Location / / Volume Laterality Urine URINE SPECIMEN Non-blood 09/13/2021 2:51 PM 022 2:51 COLLECTION, CLEAN Collection / CDT PM CDT CATCH / Unknown Unknown Justin Arora PA-C LAB_1 Performing Organization Address City/State/ZIP Code Phon e Number [facility] [address] [place] [phone] (ABNORMAL) Urinalysis Routine, Micro/Culture if Pos: Clean Catch (09/13/2021 2:51 PM CDT) [facility] Signature Urine Culture Urinalysis 09/13/2021 [facility] Comment results meet 3:01 PM [facility] LAB criteria for reflex, culture performed. Urine Color Yellow Straw-Yellow 09/13/2021 [facility] 3:01 PM CDT LAB Urine Clarity Clear Clear 09/13/2021 [facility] 3:01 PM CDT LAB Specific 1.025 1.005 - 09/13/2021 [facility] [place], 1.030 3:01 PM CDT LAB Urine PH Urine 5.5 5.0 - 8.0 09/13/2021 [facility] 3:01 PM CDT LAB Protein, Negative Neg/Trace 09/13/2021 [facility] Urine Qual 3:01 PM [facility] LAB (mg/dL) Glucose Urine Negative Negative 09/13/2021 [facility] Qual (mg/dL) 3:01 PM [facility] LAB Ketones, Negative Negative 09/13/2021 [facility] Urine (mg/dL) 3:01 PM CDT LAB Urobilinogen, 0.2 <2.0 09/13/2021 [facility] Urine (EU/dL) 3:01 PM CDT LAB Bilirubin Negative Negative 09/13/2021 [facility] Urine 3:01 PM CDT LAB Blood, Urine Small (A) Neg/Trace 09/13/2021 [facility] 3:01 PM CDT LAB Nitrite Urine Positive (A) Negative 09/13/2021 [facility] 3:01 PM CDT LAB Leukocyte Small (A) Negative 09/13/2021 [facility] Est. 3:01 PM CDT LAB Specimen Anatomical Collection Method Collection Time Receive d Time (Source) Location / / Volume Laterality Urine URINE SPECIMEN Non-blood 09/13/2021 2:51 PM 022 2:51 COLLECTION, CLEAN Collection / CDT PM CDT CATCH / Unknown Unknown Justin Arora PA-C LAB_1 Performing Organization Address City/State/ZIP Code Phon e Number [facility] [address] [place] [phone] documented in this encounter Visit Diagnoses Diagnosis Foul smelling urine Other nonspecific finding on examination of urine Recurrent UTI Urinary tract infection, site not specif ied documented in this encounter Care Teams Senior Consultant Relationship Specialty Start Date End Date Justin Arora PA-C PCP - General Physician Transmission System Operator 07/24/21 [address] [place] [address] Erin ESCALANTE Single Pointed Operator 10/24/17 BORIS Desir [phone] Fatou Haile Single Pointed Operator 06/03/18 mauri ESCALANTE Public Relations Consultant 05/28/19 documented as of this encounter
--- OUTSIDE RECORDS SUMMARY | 2022-02-24 15:46 | XMS_ITS | Encounter Summary ---
:1935 Author Organization [employer] Address [address] [place] [address] Care Team Providers Name Role Phone Justin Arora PA-C Primary Care Provider Reason for Visit Reason Comments FALL Encounter Details Date Type Department Care Team Description 08/04/2021 Telephone [place] [address] [place] [address] Jb Arora PA-C FALL Medicine [address] [facility] [address] [place] [address] [place] [address] [phone] Social History Tobacco Use Types Packs/Day Years [...] in this encounter Care Teams Real Estate Broker Associate Relationship Specialty Start Date End Date Justin Arora PA-C PCP - General Physician Atg Java Developer 07/24/21 [address] [place] [address] Erin PRADOW Press Clippings Cutter And Paster 10/24/17 BORIS Desir [phone] Fatou Haile Press Clippings Cutter And Paster 06/03/18 mauri garcia [facility] Clinical Laboratory Aides Teacher 05/28/19 documented as of this encounter
--- OUTSIDE RECORDS SUMMARY | 2022-02-24 15:46 | XMS_ITS | Encounter Summary ---
:1935 Author Organization [employer] Address [address] [place] [address] Care Team Providers Name Role Phone Justin Arora PA-C Primary Care Provider Reason for Visit Reason Comments Dme Supply Encounter Details Date Type Department Care Team Description 10/31/2021 Telephone [facility] [address] [place] [address] Jb Arora PA-C Dme Supply Medicine [address] [facility] [address] [place] [address] [place] [address] [phone] Social History Tobacco Use Types Packs/Day Years [...] currently working with a DME vendor? Yes: [facility] [phone] How would you like to receive your [...] Primary documented in this encounter Care Teams Plant Protection Superintendent Relationship Specialty Start Date End Date Justin Arora PA-C PCP - General Physician Stiff Straw Hat Washer 07/24/21 [address] [place] [address] Erin ESCALANTE Log Skidder 10/24/17 BORIS Desir [phone] Fatou Haile Log Skidder 06/03/18 mauri PRADOW Bsa/Aml Compliance Officer 05/28/19 documented as of this encounter
--- OUTSIDE RECORDS SUMMARY | 2022-02-24 15:46 | XMS_ITS | Encounter Summary ---
:1935 Author Organization [employer] Address [address] [facility] [place] [address] Care Team Providers Name Role Phone Needs Pcp, Assignment Primary Care Provider Reason for Visit Reason Comments Refill amLODIPine (NORVASC) 5 MG ta blet [Pharmacy Med Name: AMLODIPINE BESYLATE 5MG TABLETS] Encounter Details Date Type Department Care Team Description 06/23/2021 Refill [facility], Stephanie Fink PA-C Refill (amLODIPine Medicine [address] (NORVASC) 5 MG tablet [address] [place] [address] [Pharmacy Med Name: [place] [address] AMLODIPINE BESYLATE 5MG [phone] TABLETS]) Social History Tobacco Use Types Packs/Day [...] found) Next scheduled visit: None Powered by [employer] by [employer]lick, Reference: [id number], 06/23/2021 9:38:57 AM HUMAN RESOURCES SAFETY MANAGER, Pool:LIBRADO CHÁVEZED REFILL ([id number]) N RESOURCES SAFETY MANAGER documented in this encounter Plan of Treatment Not on filedocumented as of this encounter Visit Diagnoses Diagnosis Essential hypertension (HRC) Unspecified essential hypertension documented in this encounter Care Teams Motors Assembler Relationship Specialty Start Date End Date Needs Pcp, Assignment PCP - General 03/01/21 07/23/21 [place] [address] Erin PRADOW Insole Department Worker 10/24/17 BORIS Desir [phone] Fatou Haile Insole Department Worker 06/03/18 mauri garcia [facility] Resident Care Provider 05/28/19 documented as of this encounter
--- OUTSIDE RECORDS SUMMARY | 2022-02-24 15:46 | XMS_ITS | Encounter Summary ---
:1935 Author Organization [employer] Address [address] [place] [address] Care Team Providers Name Role Phone Justin Arora PA-C Primary Care Provider Reason for Visit Reason Comments CONFUSION HALLUCINATIONS Encounter Details Date Type Department Care Team Description 08/03/2021 Nurse Triage [place] [address] Justin Arora CONFUSIO N; Family Medicine GOLDY HALLUCINATIONS [address] [place] [address] [phone] Social History Tobacco Use Types Packs/Day Years [...] her instead. Clinician Next Step: Route to [facility] to follow up Specific Request(s): 1. Patient's [...] stroke) and worsening Protocols used: CONFUSION - [id number] documented in this encounter Plan of Treatment Not on filedocumented as of this encounter Visit Diagnoses Not on filedocumented in this encounter Care Teams Art Objects Supervisor Relationship Specialty Start Date End Date Justin Arora PA-C PCP - General Physician Package Line Relief Operator 07/24/21 [address] [place] [address] Erin ESCALANTE Gas Welding Equipment Mechanic 10/24/17 BORIS Desir [phone] Fatou Haile Gas Welding Equipment Mechanic 06/03/18 mauri garcia SALT MACHINE OPERATOR Bend Sorter 05/28/19 documented as of this encounter
--- OUTSIDE RECORDS SUMMARY | 2022-02-24 15:46 | XMS_ITS | Encounter Summary ---
:1935 Author Organization [employer] Address [address] [place] [address] Care Team Providers Name Role Phone Justin Arora PA-C Primary Care Provider Reason for Visit Reason Comments URINE, UNUSUAL ODOR Encounter Details Date Type Department Care Team Description 09/13/2021 Office Visit [place] [address] Justin Arora, Foul sme lling urine (Primary Dx); Family Medicine GOLDY Recurrent UTI [address] [place] [address] [phone] Social History Tobacco Use Types Packs/Day Years [...] in this encounter Patient Instructions Patient InstructionsJustin Aroar PA-C - 09/13/2021 3:04 PM CDT Plan: [...] Pos: Clean Catch (09/13/2021 2:51 PM CDT) [facility] Method Time Signature Urine Culture Urinalysis 09/13/2021 [facility] Comment results meet 3:01 PM CDT LAB criteria for reflex, culture performed. Urine Color Yellow Straw-Yellow 09/13/2021 [facility] 3:01 PM CDT LAB Urine Clarity Clear Clear 09/13/2021 [facility] 3:01 PM CDT LAB Specific 1.025 1.005 - 09/13/2021 [facility] [place], 1.030 3:01 PM CDT LAB Urine PH Urine 5.5 5.0 - 8.0 09/13/2021 [facility] 3:01 PM CDT LAB Protein, Negative Neg/Trace 09/13/2021 [facility] Urine Qual 3:01 PM CDT LAB (mg/dL) Glucose Urine Negative Negative 09/13/2021 [facility] Qual (mg/dL) 3:01 PM CDT LAB Ketones, Negative Negative 09/13/2021 [facility] Urine (mg/dL) 3:01 PM CDT LAB Urobilinogen, 0.2 <2.0 09/13/2021 [facility] Urine (EU/dL) 3:01 PM CDT LAB Bilirubin Negative Negative 09/13/2021 [facility] Urine 3:01 PM CDT LAB Blood, Urine Small (A) Neg/Trace 09/13/2021 [facility] 3:01 PM CDT LAB Nitrite Urine Positive (A) Negative 09/13/2021 [facility] 3:01 PM CDT LAB Leukocyte Small (A) Negative 09/13/2021 [facility] Est. 3:01 PM CDT LAB Specimen Anatomical Collection Method Collection Time Receive d Time (Source) Location / / Volume Laterality Urine URINE SPECIMEN Non-blood 09/13/2021 2:51 PM 022 2:51 COLLECTION, CLEAN Collection / CDT PM CDT CATCH / Unknown Unknown Justin Arora PA-C LAB_1 Performing Organization Address City/State/ZIP Code Phon e Number [facility] [address] [place] [phone] documented in this encounter Visit Diagnoses Diagnosis Foul smelling urine - Primary Other nonspecific finding on examination of urine Recurrent UTI Urinary tract infection, site not specif ied documented in this encounter Care Teams Senior Talent Management Consultant Relationship Specialty Start Date End Date Justin Arora PA-C PCP - General Physician Animal Care Specialist 07/24/21 [address] [place] [address] Erin ESCALANTE Naphtha Washing System Operator 10/24/17 BORIS Desir [phone] Fatou Haile Naphtha Washing System Operator 06/03/18 mauri ESCALANTE Reimbursement Representative 05/28/19 documented as of this encounter
--- OUTSIDE RECORDS SUMMARY | 2022-02-24 15:46 | XMS_ITS | Encounter Summary ---
:1935 Author Organization [facility] Address [address], [place] [address] Care Team Providers Name Role Phone Needs Pcp, Assignment Primary Care Provider Reason for Visit Reason Onset Date Comments Refill 03/24/2021 Encounter Details Date Type Department Care Team Description 03/24/2021 Refill [facility] 393 1 Neurology Nany Newman RN Refill 3931 [place] [address] Social History Tobacco Use Types Packs/Day Years [...] AM CST Appt next month, Rx sent. ECTION WARDEN documented in this encounter Plan of Treatment Not on filedocumented as of this encounter Visit Diagnoses Not on filedocumented in this encounter Care Teams Bindery Production Manager Relationship Specialty Start Date End Date Needs Pcp, Assignment PCP - General 03/01/21 07/23/21 [place], [place] [address] Erin ESCALANTE Workers Compensation Claims Assistant 10/24/17 BORIS Desir [phone] Fatou Haile Workers Compensation Claims Assistant 06/03/18 mauri ESCALANTE Ceramic Sprayer 05/28/19 documented as of this encounter
--- OUTSIDE RECORDS SUMMARY | 2022-02-24 15:46 | XMS_ITS | Encounter Summary ---
:1935 Author Organization [employer] Address [address] [place] [address] Care Team Providers Name Role Phone Justin Arora PA-C Primary Care Provider Reason for Visit Reason Comments Verbal Orders Encounter Details Date Type Department Care Team Description 08/17/2021 Telephone [place] [id number] [place] [address] Jb Arora PA-C Verbal Orders [facility] [address] [facility] [address] [place] [address] [place] [address] [phone] Social History Tobacco Use Types Packs/Day Years [...] on filedocumented in this encounter Care Teams Manufacturing Engineer Paint Relationship Specialty Start Date End Date Justin Arora PA-C PCP - General Physician Treasury Representative 07/24/21 [address] [place] [address] Erin PRADOW Safemaker 10/24/17 BORIS Desir [phone] Fatou Haile Safemaker 06/03/18 mauri garcia [facility] Entry Engineer 05/28/19 documented as of this encounter
--- OUTSIDE RECORDS SUMMARY | 2022-02-24 15:46 | XMS_ITS | Encounter Summary ---
:1935 Author Organization [employer] Address [address] [place] [address] Care Team Providers Name Role Phone Justin Arora PA-C Primary Care Provider Reason for Visit Reason Comments Refill venlafaxine (EFFEXORXR) 75 M G 24 hour release capsule [Pharmacy Med Name: VENLAFAXINE ER 75MG CAPSULES ] Encounter Details Date Type Department Care Team Description 10/12/2021 Refill [facility] Jose Tang R efill (venlafaxine Medicine (EFFEXORXR) 75 MG 24 [address] [address] Shashi Garcia [place] [address] [Pharmacy Med Name: [phone] [place] [address] VENLAFAXINE ER 75MG [phone] (Wo rk) CAPSULES]) Social History Tobacco Use [...] 0.7 mg/dL on 06/23/2021 Age: 85 [facility] Embedded Refills, Reference: [id number], 10/12/2021 3:28:15 AM CDT, Pool: LIBRADO IMED REFILL ([id number]) documented in this encounter Plan of Treatment Not on filedocumented as of this encounter Visit Diagnoses Diagnosis 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 Delivery Mgr 05/28/19 documented as of this encounter
--- OUTSIDE RECORDS SUMMARY | 2022-02-24 15:46 | XMS_ITS | Encounter Summary ---
:1935 Author Organization [facility] Address [address] [place] [address] Care Team Providers Name Role Phone Justin Arora PA-C Primary Care Provider Encounter Details Date Type Department Care Team Description 07/26/2021 Lab Visit [facility] Flank pain [address] [place] [address] Social History Tobacco Use [...] (ABNORMAL) Urine Culture (07/26/2021 11:38 AM CDT) [facility] Method Time Signature Urine Culture Growth (A) [...] Organization Address City/State/ZIP Code Phon e Number [address] [address] (ABNORMAL) UA Micro: Clean Catch (07/26/2021 11:38 AM CDT) [facility] Method Time Signature Red Blood Cells 0-3 0 - 3 07/26/2021 [facility] /HPF 11:48 AM CDT White Blood 51-100 (A) 0 - 5 07/26/2021 [facility] Cells /HPF 11:48 AM CDT Bacteria Many (A) None Seen 07/26/2021 [facility] /HPF 11:48 AM CDT Squamous Few None 07/26/2021 [facility] Epithelial Seen, 11:48 AM CDT Cells Occasiona l, Few /HPF White Blood Present (A) None Seen 07/26/2021 [facility] Cell Clumps /HPF 11:48 AM CDT Specimen Anatomical Collection Method Collection Time Receive d Time (Source) Location / / Volume Laterality Urine URINE SPECIMEN Non-blood 07/26/2021 11:38 COLLECTION, CLEAN Collection / AM CDT 11:38 AM C DT CATCH / Unknown Unknown Justin Arora PA-C LAB_1 Performing Organization Address City/State/ZIP Code Phon e Number [facility] [address] [place] [phone] (ABNORMAL) Urinalysis Routine, Micro/Culture if Pos: Clean Catch (07/26/2021 11:38 AM CDT) [facility] Method Time Signature Urine Culture Urinalysis 07/26/2021 [facility] Comment results meet 11:48 AM LAB criteria for CDT reflex, culture performed. Urine Color Yellow Straw-Yellow 07/26/2021 [facility] 11:48 AM LAB CDT Urine Clarity Hazy (A) Clear 07/26/2021 [facility] 11:48 AM LAB CDT Specific 1.020 1.005 - 07/26/2021 [facility] Nunez, 1.030 11:48 AM LAB Urine CDT PH Urine 7.0 5.0 - 8.0 07/26/2021 [facility] 11:48 AM LAB CDT Protein, Negative Neg/Trace 07/26/2021 [facility] Urine Qual 11:48 AM LAB (mg/dL) CDT Glucose Urine Negative Negative 07/26/2021 [facility] Qual (mg/dL) 11:48 AM LAB CDT Ketones, Trace (A) Negative 07/26/2021 [facility] Urine (mg/dL) 11:48 AM LAB CDT Urobilinogen, 2.0 (A) <2.0 07/26/2021 [facility] Urine (EU/dL) 11:48 AM LAB CDT Bilirubin Negative Negative 07/26/2021 [facility] Urine 11:48 AM LAB CDT Blood, Urine Trace Neg/Trace 07/26/2021 [facility] 11:48 AM LAB CDT Nitrite Urine Positive (A) Negative 07/26/2021 [facility] 11:48 AM LAB CDT Leukocyte Small (A) Negative 07/26/2021 [facility] Est. 11:48 AM LAB CDT Specimen Anatomical Collection Method Collection Time Receive d Time (Source) Location / / Volume Laterality Urine URINE SPECIMEN Non-blood 07/26/2021 11:38 2 COLLECTION, CLEAN Collection / AM CDT 11:38 AM C DT CATCH / Unknown Unknown Justin Arora PA-C LAB_1 Performing Organization Address City/State/ZIP Code Phon e Number [facility] [address] [place] [phone] documented in this encounter Visit Diagnoses Diagnosis Flank pain Abdominal pain, unspecified site documented in this encounter Care Teams Hot Dip Galvanizer Relationship Specialty Start Date End Date Justin Arora PA-C PCP - General Physician Fruit Pitter 07/24/21 [address] [place] [address] Erin ESCALANTE Student Services Rep 10/24/17 BORIS Desir [phone] Fatou Haile Student Services Rep 06/03/18 mauri ESCALANTE Quill Machine Operator 05/28/19 documented as of this encounter
--- OUTSIDE RECORDS SUMMARY | 2022-02-24 15:47 | XMS_ITS | Encounter Summary ---
:1935 Author Organization [employer] Address [address] [place] [address] Care Team Providers Name Role Phone Allyson Pool PA-C Primary Care Provider Reason for Visit Reason Comments Test Results DEXA Scan Encounter Details Date Type Department Care Team Description 07/13/2019 Telephone [facility] Allyson Pool PA-C Test Results (DEXA Medicine [address] Scan) [address] [place] [address] [place] [address] [phone] Social History Tobacco Use Types Packs/Day Years [...] decide to come in for an appointment. RIOR DESIGN FACULTY MEMBER Allyson Pool PA-C - 07/13/2019 4:29 PM CST Patient has osteoporosis. I would like to see her in clinic to discuss. Allyson Pool PA-C 4:29 PM 07/13/2019 RIOR DESIGN FACULTY MEMBER documented in this encounter Plan of Treatment Not on filedocumented as of this encounter Visit Diagnoses Not on filedocumented in this encounter Care Teams Side Laster Relationship Specialty Start Date End Date Allyson Pool PA-C PCP - General Physician Digital Proofing And Platemaker 09/26/16 02/28/21 [address] [place] [address] Erin PRADOW Recreation Coordinator 10/24/17 BORIS Desir [phone] Fatou Haile Recreation Coordinator 06/03/18 mauri garcia [facility] Roll Hauler 05/28/19 documented as of this encounter
--- OUTSIDE RECORDS SUMMARY | 2022-02-24 15:47 | XMS_ITS | Encounter Summary ---
:1935 Author Organization [facility] Address [address] [place] [address] Care Team Providers Name Role Phone Stephanie Pool PA-C Primary Care Provider Reason for Visit Reason Comments Refill triamterene-hydrochlorothiaz ricky (MAXZIDE-25) 37.5-25 MG tablet [Pharmacy Med Name: TRIAMTERENE 37.5MG/ HC TZ 25MG TABS] Encounter Details Date Type Department Care Team Description 08/24/[address] [facility] Stephanie Pool PA-C Refill Medicine [address] [facility] (triamterene-hydrochlor [address] [place] [address] othiazide (MAXZIDE-25) [place] [address] 37.5-25 MG tablet [phone] [Pharmacy Med Name: TRIAMTERENE 37. 5MG/ HCTZ [...] (Sent to [facility]) Powered by [employer], Reference: [id number], 08/24/2018 3:27:11 AM CDT, Pool: LIBRADO HERNANDEZ REFDILLON ([id number]) documented in this encounter Plan of Treatment Not on filedocumented as of this encounter Visit Diagnoses Diagnosis Essential hypertension (HRC) Unspecified essential hypertension documented in this encounter Care Teams Cotton Breeder Relationship Specialty Start Date End Date Stephanie Pool PA-C PCP - General Physician Coke Burner 09/26/16 02/28/[address] [place] [address] Erin ESCALANTE Loan Administrator 10/24/17 BORIS Desir [phone] Fatou Haile Loan Administrator 06/03/18 documented as of this encounter
--- OUTSIDE RECORDS SUMMARY | 2022-02-24 15:47 | XMS_ITS | Encounter Summary ---
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
--- OUTSIDE RECORDS SUMMARY | 2022-02-24 15:47 | XMS_ITS | Encounter Summary ---
:1935 Author Organization [employer] Address [address] [place] [address] Care Team Providers Name Role Phone Allyson Pool PA-C Primary Care Provider Reason for Visit Procedure/Equipment (Routine) - Incomplete Specialty Diagnoses / Procedures Referred By Contact Refer red To Contact Diagnoses Thyroid nodule (HRC) Allyson Pool PA-C Procedures US Thyroid [address] [place] [address] Referral ID Status Reason Start Date Expiration Date Visits V isits Requested Authorized [id number] Incomplete 06/26/2018 09/25/2019 1 1 Encounter Details Date Type Department Care Team Description 06/26/2019 Ancillary Procedure [facility] Allyson Pool PA-C Thyroid nodule [address] [place] [address] [place], [place] [phone] [address] Social History Tobacco Use Types Packs/Day Years [...] well. Allyson Pool PA-C 4:31 PM 06/26/2019 Y PRODUCTS MAKER documented in this encounter Plan of Treatment Not on filedocumented as of this encounter Procedures Procedure Name Priority Date/Time Associated Diagnosis Comme nts US THYROID Routine 06/26/2019 2:40 PM Thyroid nodule Results for this DAIRY PRODUCTS MAKER procedure are i n the results section . documented in this encounter Results US Thyroid (06/26/2019 2:40 PM DAIRY PRODUCTS MAKER) Anatomical Region Laterality Modality Neck, Head Ultrasound Specimen (Source) Anatomical Collection Method Collection Time Re ceived Time Location / / Volume Laterality 06/26/2019 2:14 PM DAIRY PRODUCTS MAKER Impressions 06/26/2019 2:56 PM DAIRY PRODUCTS MAKER COMPARISON: 05/17/2017. Reference also made to a [...] goiter documented in this encounter Care Teams Label Press Operator Relationship Specialty Start Date End Date Allyson Pool PA-C PCP - General Physician Care Attendant 09/26/16 02/28/21 [address] [place] [address] Erin ESCALANTE Diamond Die Polisher 10/24/17 BORIS Desir [phone] Fatou Haile Diamond Die Polisher 06/03/18 mauri garcia [facility] Roll Setter 05/28/19 documented as of this encounter
--- OUTSIDE RECORDS SUMMARY | 2022-02-24 15:47 | XMS_ITS | Encounter Summary ---
:1935 Author Organization [facility] Address [address] [place] [address] Care Team Providers Name Role Phone Allyson Pool PA-C Primary Care Provider Reason for Visit Procedure/Equipment (Routine) - Incomplete Specialty Diagnoses / Procedures Referred By Contact Refer red To Contact Diagnoses Screening for osteoporosis Allyson Pool PA-C Procedures DEXA Bone Density Spine/Hip Including Vertebral Fracture Assessment DEXA Bone Density Spine/Hip [address] [place] [address] Referral ID Status Reason Start Date Expiration Date Visits V isits Requested Authorized [id number] Incomplete 06/08/2019 09/06/2020 1 1 Encounter Details Date Type Department Care Team Description 07/08/2019 Ancillary [place] [facility] Allyson Pool, Screening f or Procedure Density GOLDY osteoporosis [address] [address] [place] [address] [phone] Social History Tobacco Use Types Packs/Day Years [...] Resu lts for this SPINE/HIP INC VERT DRY BOX OPERATOR osteoporosis procedure are in FX ASSESS the results section. documented in this encounter Results DEXA Bone Density Spine/Hip Including Vertebral Fracture Assessment (07/08/2019 2:19 PM DRY BOX OPERATOR) Anatomical Region Laterality Modality Spine, Hip Radiographic Imaging Specimen (Source) Anatomical Location Collection Method / Collectio n Time Received Time / Laterality Volume Narrative 07/13/2019 2:09 PM DRY BOX OPERATOR CLINIC DXA REPORT Patient Name: ??Fidelia Lozoya Florentinanibal [place]: ??Alexander Caldwell MD Densitometer: ??CheckInPage Horizon W (S/N 2 [id number]) PAVON BONE OSTEOPOROSIS RISK FACTORS FROM PATIENT [...] osteoporosis documented in this encounter Care Teams Performance Tester Relationship Specialty Start Date End Date Allyson Pool PA-C PCP - General Physician Lead Military Analyst 09/26/16 02/28/21 [address] [place] [address] Erin ESCALANTE Floorhand 10/24/17 BORIS Desir [phone] Fatou Haile Floorhand 06/03/18 mauri garcia [facility] Loop Sewer 05/28/19 documented as of this encounter
--- OUTSIDE RECORDS SUMMARY | 2022-02-24 15:47 | XMS_ITS | Encounter Summary ---
:1935 Author Organization [email or web address] Address [address], [place] [address] Care Team Providers Name Role Phone Allyson Pool PA-C Primary Care Provider Reason for Visit Reason Comments Refill Encounter Details Date Type Department Care Team Description 02/16/2019 Refill Specialty Center 3931 Norberto Aldridge MD Refill Neurology [address] [facility] [address] [place] [phone] (Wo rk) Social History Tobacco Use Types [...] on filedocumented in this encounter Care Teams Shopper Insights Manager Relationship Specialty Start Date End Date Allyson Pool PA-C PCP - General Physician Building Maintenance Superintendent 09/26/16 02/28/[address] [place] [address] Erin ESCALANTE Redrawer 10/24/17 BORIS Desir [phone] Fatou Haile Redrawer 06/03/18 documented as of this encounter
--- OUTSIDE RECORDS SUMMARY | 2022-02-24 15:47 | XMS_ITS | Encounter Summary ---
:1935 Author Organization [employer] [employer] [facility] Address [address] [place] [address] Care Team Providers Name Role Phone Allyson Pool PA-C Primary Care Provider Reason for Visit Reason Comments MEDICATION CHECK Encounter Details Date Type Department Care Team Description 06/24/2020 Telephone [facility] Surya Aldridge MD MEDICATION CHECK [address] [address] [facility] [phone] [place] [address] (Wo rk) Social History Tobacco [...] updated Cr prior to infusion? Thank you! Soraya Orona, RN 10:57 AM 06/24/2020 LY CONTROLLER documented in this encounter Plan of Treatment Not on filedocumented as of this encounter Results CREAT - Creatinine (07/08/2020 9:37 AM SUPPLY CONTROLLER) P athologist Signature Creatinine 0.80 0.55 - 07/08/2020 [facility] 1.02 mg/dL 10:54 AM SUPPLY CONTROLLER LABORATORY GFR, Estimated >60 >60 07/08/2020 [place] mL/min/1.7 10:54 AM SUPPLY CONTROLLER LABORATORY 3m2 Specimen Anatomical Collection Method / Collection Time Recei miladis Time (Source) Location / Volume Laterality Blood Venipuncture / 07/08/2020 9:37 07/08/2020 9:51 Unknown AM SUPPLY CONTROLLER AM SUPPLY CONTROLLER Surya Vinson MD LAB_1 Performing Organization Address City/State/ZIP Code Phon e Number [facility] [address] [place] [address] documented in this encounter Visit Diagnoses Diagnosis 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
--- OUTSIDE RECORDS SUMMARY | 2022-02-24 15:47 | XMS_ITS | Encounter Summary ---
:1935 Author Organization [facility] Address [address] [place] [address] Care Team Providers Name Role Phone Allyson Pool PA-C Primary Care Provider Reason for Visit Reason Comments Refill Encounter Details Date Type Department Care Team Description 04/05/2019 Refill Specialty Center 3931 Norbreto Aldridge MD Refill Neurology [address] [facility] [address] [place] [phone] (Wo rk) Social History Tobacco Use Types [...] on filedocumented in this encounter Care Teams Cuff Turner Machine Operator Relationship Specialty Start Date End Date Allyson Pool PA-C PCP - General Physician Infection Prevention Practitioner 09/26/16 02/28/[address] [place] [address] Erin ESCALANTE Proof Coin Collector 10/24/17 BORIS Desir [phone] Fatou Haile Proof Coin Collector 06/03/18 documented as of this encounter
--- OUTSIDE RECORDS SUMMARY | 2022-02-24 15:47 | XMS_ITS | Encounter Summary ---
:1935 Author Organization [facility] Address [address] [place] [address] Care Team Providers Name Role Phone Allyson Pool PA-C Primary Care Provider Reason for Visit Reason Comments ERRONEOUS ENTRY Encounter Details Date Type Department Care Team Description 12/24/2018 Telephone [facility] Allyson Pool PA-C ERRONEOUS ENTRY Medicine [address] [address] [place] [address] [place] [address] [phone] Social History Tobacco Use Types Packs/Day Years Used Date Smoking Tobacco: Never Smokeless Tobacco: Never Alcohol Use Standard Drinks/Week Comments Yes 0 (1 standard drink = 0.6 oz pure alcoho l) rare occasions (1 per month) Sex Assigned at Date Recorded Not on file documented as of this encounter Nursing Notes Margarette Modnragon - 12/24/2018 1:57 PM CDT Error documented in this encounter Plan of Treatment Not on filedocumented as of this encounter Visit Diagnoses Not on filedocumented in this encounter Care Teams Skid Adzer Relationship Specialty Start Date End Date Allyson Pool PA-C PCP - General Physician Associate Director Financial Aid 09/26/16 02/28/21 [address] [place] [address] Erin ESCALANTE Janitorial Supervisor 10/24/17 BORIS Desir [phone] Fatou Haile Janitorial Supervisor 06/03/18 documented as of this encounter
--- OUTSIDE RECORDS SUMMARY | 2022-02-24 15:47 | XMS_ITS | Encounter Summary ---
:1935 Author Organization [facility] Address [address] [address] Care Team Providers Name Role Phone Allyson Pool PA-C Primary Care Provider Reason for Visit Reason Comments Refill Encounter Details Date Type Department Care Team Description 10/26/2018 Refill Specialty Center 3931 Norberto Aldridge MD Refill Neurology 3931 [facility] [address] [place] [phone] (Wo rk) Social History Tobacco Use Types [...] on filedocumented in this encounter Care Teams Requirements Engineer Relationship Specialty Start Date End Date Allyson Pool PA-C PCP - General Physician Electric Relay Tester 09/26/16 02/28/[address] [place] [address] Erin ESCALANTE Event Organizer 10/24/17 BORIS Desir [phone] Fatou Haile Event Organizer 06/03/18 documented as of this encounter
--- OUTSIDE RECORDS SUMMARY | 2022-02-24 15:47 | XMS_ITS | Encounter Summary ---
:1935 Author Organization [facility] Address [address] [place] [address] Care Team Providers Name Role Phone Allyson Pool PA-C Primary Care Provider Reason for Visit Reason Comments Video Visit CONSULT Consult/Transfer Care (Routine) - Closed Specialty Diagnoses / Procedures Referred By Contact Refer red To Contact Diagnoses Osteoporosis, unspecified osteoporosis type, unspecified pathological fracture presence (HRC) Allyson Pool PA-C [address] [place] [address] Referral ID Status Reason Start Date Expiration Date Visits Requ ested Visits Authorized [id number] Closed 04/12/2020 07/12/2021 1 1 Encounter Details Date Type Department Care Team Description 05/19/2020 Telemedicine [facility] Surya Vinson MD Age-related Rheumatology [address] [facility] osteoporosis without [address] [facility] [place] [address] [place], [place] fracture (Primary Dx) [phone] [address] Social History Tobacco Use Types Packs/Day Years [...] New Patient/Consult Note Referral: Allyson Pool PA-C [address] [place] [address] This is a Video visit. Patient is [...] you have any questions. Surya Vinson. Rheumatology [facility] 05/19/2020 This note consists of symbols derived from keyboarding, and voice recognition software. As a result,wrong word or '[id number]' substitutions may have occurred due to the inherent limitations of voice recognition software. There may be errors in the script that have gone undetected. Please consider this when interpreting information found in this chart. 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
--- OUTSIDE RECORDS SUMMARY | 2022-02-24 15:47 | XMS_ITS | Encounter Summary ---
:1935 Author Organization [employer] Address [address] [place] [address] Care Team Providers Name Role Phone Allyson Pool PA-C Primary Care Provider Reason for Visit Reason Comments Provider Orders Encounter Details Date Type Department Care Team Description 10/22/2018 Telephone [facility] Allyson Pool PA-C Provider Orders [address] [address] [place] [address] [phone] Social History Tobacco Use Types Packs/Day Years Used Date Smoking Tobacco: Never Smokeless Tobacco: Never Alcohol Use Standard Drinks/Week Comments Yes 0 (1 standard drink = 0.6 oz pure alcoho l) rare occasions (1 per month) Sex Assigned at Date Recorded Not on file documented as of this encounter Nursing Notes Estrella Vann LPN - 10/23/2018 7:43 AM CDT Form faxed back to [employer] Allyson Pool PA-C - 10/22/2018 12:14 PM CDT Completed and in my outbox. Allyson Pool PA-C 12:14 PM 10/22/2018 Tom Crane CMA - 10/22/2018 10:03 AM CDT Clinician Action: New Order Clinician Next Step: review and sign orders, route to nurse for follow up Specific Request(s): 1. Provider orders received from [facility] and placed in provider box. Please review and sign.Route to nurse once completed for follow up. documented in this encounter Plan of Treatment Not on filedocumented as of this encounter Visit Diagnoses Not on filedocumented in this encounter Care Teams Industrial Analyst Relationship Specialty Start Date End Date Allyson Pool PA-C PCP - General Physician Telephone Exchange Operator 09/26/16 02/28/21 [address] [place] [address] Erin ESCALANTE Cafeteria Clerk 10/24/17 BORIS Desir [phone] Fatou Haile Cafeteria Clerk 06/03/18 documented as of this encounter
--- OUTSIDE RECORDS SUMMARY | 2022-02-24 15:47 | XMS_ITS | Encounter Summary ---
:1935 Author Organization [employer] Address [address] [place] [address] Care Team Providers Name Role Phone Stephanie Pool PA-C Primary Care Provider Reason for Visit Reason Comments Refill labetalol (TRANDATE) 100 MG tablet [Pharmacy Med Name: LABETALOL 100MG TABLETS] Encounter Details Date Type Department Care Team Description 08/25/2019 Refill [facility] Stephanie Pool PA-C Refill (labetalol Medicine [address] (TRANDATE) 100 MG [address] [place] [address] tablet [[place] [address] Name: LABETALOL 100MG [phone] TABLETS]) Social History Tobacco Use Types Packs/Day [...] AND 1 TABLET EVERY EVENING Interface, Out [employer] Query - 08/25/2019 3:27 AM CDT labetalol [...] 64 mm Hg on 06/08/2019 Powered by [employer], Reference: [id number], 08/25/2019 3:27:00 AM CDT, Gary: LIBRADO HERNANDEZ REFILL ([id number]) documented in this encounter Plan of Treatment Not on filedocumented as of this encounter Visit Diagnoses Diagnosis Essential hypertension (HRC) Unspecified essential hypertension documented in this encounter Care Teams Bpm Architect Relationship Specialty Start Date End Date Stephanie Pool PA-C PCP - General Physician Vice President Of Academic Affairs 09/26/16 02/28/[address] [place] [address] Erin ESCALANTE Engagement Specialist 10/24/17 BORIS Desir [phone] Fatou Haile Engagement Specialist 06/03/18 mauri ESCALANTE Tool Specialist 05/28/19 documented as of this encounter
--- OUTSIDE RECORDS SUMMARY | 2022-02-24 15:47 | XMS_ITS | Encounter Summary ---
:1935 Author Organization [employer] Address [address] [place] [address] Care Team Providers Name Role Phone Allyson Pool PA-C Primary Care Provider Encounter Details Date Type Department Care Team Description 06/17/2019 Lab Visit [facility] Essential hypertension; [address] [address] Screening for deficiency ane adam; [place] [address] Hyperlipidemia, unspecified hyperlipidemia type; [phone] Thyroid nodule; Vitamin D defic iency; Monoclonal [...] for Res ults for this PANEL AM FLASK CLEANER deficiency anemia procedure are in the results section. FREE LIGHT CHAINS, Routine 06/17/2019 9:52 Monoclonal gammopat hy Results for this SERUM AM FLASK CLEANER present on serum procedure a re in protein electrophoresis the results section. LIPID PANEL AND Routine 06/17/2019 9:52 Hyperlipidemia, Result s for this DIRECT LDL(IF AM FLASK CLEANER unspecified procedure are in NEEDED) hyperlipidemia type the resu lts section. VITAMIN D Routine 06/17/2019 9:52 Vitamin D deficiency Resu lts for this 25-HYDROXY, TOTAL AM [employer] CLE[employer]ER procedure are in the results section. COMPLETE BLOOD Routine 06/17/2019 9:52 Screening for Results f or this COUNT-W/DIFF AM [employer] CLEANER deficiency anemia procedure are in the results section. LIVER PANEL(HEPATIC Routine 06/17/2019 9:52 Monoclonal gammopa thy Results for this FUNCTION PANEL) AM FLASK CLEANER present on serum procedur e are in protein electrophoresis the results section. ELP, CASCADE, SERUM Routine 06/17/2019 9:52 Monoclonal gammopa thy Results for this AM FLASK CLEANER present on serum procedure a re in protein electrophoresis the results section. BASIC METABOLIC Routine 06/17/2019 9:52 Essential hypertension Results for this PANEL AM FLASK CLEANER procedure are i n the results section. TSH, SENSITIVE (WITH Routine 06/17/2019 9:52 Thyroid nodule Re sults for this REFLEX) AM FLASK CLEANER procedure are i n the results section. documented in this encounter Results Complete Blood Count-W/Diff (06/17/2019 9:52 AM FLASK CLEANER) P athologist Signature WBC 5.7 3.5 - 10.5 06/17/2019 [facility] x10(9)/L 9:59 AM [facility] RBC 4.74 3.90 - 06/17/2019 [facility] 5.03 9:59 AM [facility] x10(12)/L Hemoglobin 14.5 12.0 - 06/17/2019 [facility] 15.5 g/dL 9:59 AM [facility] HCT 43.8 34.9 - 06/17/2019 [facility] 44.5 % 9:59 AM [facility] MCV 92.4 80.0 - 06/17/2019 [facility] 100.0 fL 9:59 AM [facility] MCH 30.6 27.6 - 06/17/2019 [facility] 33.3 pg 9:59 AM [facility] MCHC 33.1 31.5 - 06/17/2019 [facility] 35.2 g/dL 9:59 AM [facility] RDW 13.7 11.9 - 06/17/2019 [facility] 15.5 % 9:59 AM [facility] Platelets 161 150 - 450 06/17/2019 [facility] x10(9)/L 9:59 AM [facility] Automated NRBC 0 <=0 /100 06/17/2019 [facility] WBC 9:59 AM [facility] Neutrophil 3.0 1.7 - 7.0 06/17/2019 [facility] Absolute 10(9)/L 9:59 AM [facility] Lymphocyte 1.9 1.0 - 4.8 06/17/2019 [facility] Absolute 10(9)/L 9:59 AM [facility] Monocytes 0.5 0.2 - 0.9 06/17/2019 [facility] Absolute 10(9)/L 9:59 AM [facility] Eosinophil 0.2 0.0 - 0.5 06/17/2019 [facility] Absolute 10(9)/L 9:59 AM [facility] Basophil 0.0 0.0 - 0.3 06/17/2019 [facility] Absolute 10(9)/L 9:59 AM [facility] Immature Gran % 0.2 0.0 - 0.5 06/17/2019 [facility] % 9:59 AM [facility] Specimen Anatomical Collection Method / Collection Time Recei miladis Time (Source) Location / Volume Laterality Blood Venipuncture / 06/17/2019 9:52 06/17/2019 9:52 Unknown AM FLASK CLEANER AM [employer] CLEANER Allyson Pool PA-C LAB_1 Performing Organization Address City/State/[facility] Code Phon e Number [facility] [address] [place] [address] Liver Panel(Hepatic Function Panel) (06/17/2019 9:52 AM FLASK CLEANER) P athologist Signature Alkaline 47 40 - 150 06/17/2019 [facility] Phosphatase U/L 10:27 AM [facility] Bilirubin, Total 1.1 0.2 - 1.2 06/17/2019 [facility] mg/dL 10:27 AM [facility] Bilirubin, 0.4 0.0 - 0.5 06/17/2019 [facility] Direct mg/dL 10:27 AM [facility] AST (SGOT) 21 10 - 40 06/17/2019 [facility] U/L 10:27 AM [facility] ALT (SGPT) 12 0 - 55 U/L 06/17/2019 [facility] 10:27 AM [facility] Protein, Total 7.1 6.4 - 8.3 06/17/2019 [facility] g/dL 10:27 AM [facility] Albumin 3.7 3.5 - 5.0 06/17/2019 [facility] g/dL 10:27 AM [facility] Specimen Anatomical Collection Method / Collection Time Recei miladis Time (Source) Location / Volume Laterality Blood Venipuncture / 06/17/2019 9:52 06/17/2019 9:52 Unknown AM FLASK CLEANER AM [employer] CLE[employer]ER Allyson Pool PA-C LAB_1 Performing Organization Address City/[facility]/ZIP Code Phon e Number [facility] [address] [place] [address] (ABNORMAL) Free Light Chains, Serum (06/17/2019 9:52 AM FLASK CLEANER) [facility] gist Method Time Signature [place] Free 2.80 (H) 0.33 - 06/18/2019 [facility] Light Chains 1.94 9:09 AM [facility] mg/dL Lambda Free 1.68 0.57 - 06/18/2019 [facility] Light Chains 2.63 9:09 AM [facility] mg/dL [place]/Lambda 1.67 (H) 0.26 - 06/18/2019 [facility] Ratio 1.65 9:09 AM [facility] Specimen Anatomical Collection Method / Collection Time Recei miladis Time (Source) Location / Volume Laterality Blood Venipuncture / 06/17/2019 9:52 06/17/2019 9:52 Unknown AM FLASK CLEANER AM [employer]ASK CLEANER Allyson Pool PA-C LAB_1 Performing Organization Address City/[facility]/ZIP Code Phon e Number [facility] [address] [address] (ABNORMAL) Electrophoresis [place] To ALEKSEY,Serum (06/17/2019 9:52 AM FLASK CLEANER) [facility] gist Method Time Signature Total Protein 6.8 6.4 - 8.3 06/18/2019 [facility] g/dL 2:48 PM [facility] Albumin 3.7 3.4 - 4.8 06/18/2019 [facility] g/dL 2:48 PM [facility] Alpha 1 0.3 0.2 - 0.5 06/18/2019 [facility] g/dL 2:48 PM [facility] Alpha 2 0.9 0.5 - 1.1 06/18/2019 [facility] g/dL 2:48 PM [facility] Beta 0.7 0.6 - 1.1 06/18/2019 [facility] g/dL 2:48 PM [facility] Gamma 1.1 0.7 - 1.6 06/18/2019 [facility] g/dL 2:48 PM [facility] Monoclonal 0.5 (H) <=0.0 06/18/2019 [facility] [place] g/dL 2:48 PM [facility] Comment: IgG [place] Interpretation A monoclonal protein 06/18/2019 2:4 8 [facility] has been detected by PM [facility] AB serum protein electrophoresis. Additional Testing Not indicated. 06/18/2019 2:48 [facility] PM [facility] Signed Out By [facility] 06/18/2019 2: 48 [facility] Laboratory PM [facility] Specimen Anatomical Collection Method / Collection Time Recei miladis Time (Source) Location / Volume Laterality Blood Venipuncture / 06/17/2019 9:52 06/17/2019 9:52 Unknown AM FLASK CLEANER AM FLASK CLEANER Allyson Pool PA-C LAB_1 Performing Organization Address City/State/ZIP Code Phon e Number [facility] [address] [address] Vitamin D 25-Hydroxy, Total (06/17/2019 9:52 AM FLASK CLE[employer]ER) athologist Signature Vitamin D, 36 30 - 80 06/17/2019 [facility] 25-OH, Total ng/mL 3:39 PM [facility] Specimen Anatomical Collection Method / Collection Time Recei miladis Time (Source) Location / Volume Laterality Blood Venipuncture / 06/17/2019 9:52 06/17/2019 9:52 Unknown AM FLASK CLEANER AM [employer]ASK CLEANER Allyson Pool PA-C LAB_1 Performing Organization Address City/[facility]/ZIP [facility] Phon e Number [facility] [address] [place] [address] TSH with Free T4 (if TSH Abnormal) (06/17/2019 9:52 AM FLASK CLEANER) athologist Signature TSH, Reflex 1.16 0.30 - 4.50 06/17/2019 [facility] uIU/mL 3:39 PM [facility] Specimen Anatomical Collection Method / Collection Time Recei miladis Time (Source) Location / Volume Laterality Blood Venipuncture / 06/17/2019 9:52 06/17/2019 9:52 Unknown AM FLASK CLEANER AM [employer]ASK CLE[employer]ER Narrative [facility] - 06/17/2019 3:39 P M [facility]ASK [facility]ER Lab will automatically reflex to Free T4 when TSH results are <0.30 uIU/mL or >4.50 mIU/mL. Allyson Pool PA-C LAB_1 Performing Organization Address City/State/ZIP Code Phon e Number [facility] [address] [place] [address] Lipid Panel and Direct LDL(If Needed) (06/17/2019 9:52 AM FLASK CLEANER) Analysis Performed At Patho logist Time Signature Cholesterol 141 0 - 199 06/17/2019 [facility] mg/dL 10:27 AM [facility] Triglyceride 77 <=149 06/17/2019 [facility] mg/dL 10:27 AM [facility] HDL Cholesterol 62 >=40 mg/dL 06/17/2019 [facility] 10:27 AM [facility] LDL, Calculated 64 <130 mg/dL 06/17/2019 [facility] 10:27 AM [facility] Non HDL Chol, 79 mg/dL 06/17/2019 [facility] Calculated 10:27 AM [facility] Cholesterol/HDL 2.3 06/17/2019 [facility] Ratio 10:27 AM [facility] Hours Fasting 12 06/17/2019 [facility] 10:27 AM [facility] Specimen Anatomical Collection Method / Collection Time Recei miladis Time (Source) Location / Volume Laterality Blood Venipuncture / 06/17/2019 9:52 06/17/2019 9:52 Unknown AM FLASK CLEANER AM FLASK CLEANER Allyson Pool PA-C LAB_1 Performing Organization Address City/[facility] Phon e Number [facility] [address] [place] [address] (ABNORMAL) Basic Metabolic Panel (06/17/2019 9:52 AM FLASK CLEANER) P athologist Signature Sodium 142 136 - 145 06/17/2019 [facility] mmol/L 10:27 AM [facility] Potassium 3.8 3.5 - 5.1 06/17/2019 [facility] mmol/L 10:27 AM [facility] Chloride 105 98 - 109 06/17/2019 [facility] mmol/L 10:27 AM [facility] CO2 28 20 - 29 06/17/2019 [facility] mmol/L 10:27 AM [facility] Anion Gap 9 7 - 16 06/17/2019 [facility] mmol/L 10:27 AM [facility] Calcium 9.2 8.4 - 10.4 06/17/2019 [facility] mg/dL 10:27 AM [facility] BUN <10 7 - 26 06/17/2019 [facility] mg/dL 10:27 AM [facility] Creatinine 0.90 0.55 - 06/17/2019 [facility] 1.02 mg/dL 10:27 AM [facility] GFR, Estimated 60 (L) >60 06/17/2019 [facility] mL/min/1.7 10:27 AM [facility] 3m2 GFR, Est If >60 >60 06/17/2019 [facility] mL/min/1.7 10:27 AM [facility] [place] 3m2 Glucose 91 70 - 100 06/17/2019 [facility] mg/dL 10:27 AM [facility] Comment: The given reference range is fo r the fasting state. Non-fasting reference range for glucose is 70 - 180 mg/dL. Hours Fasting 12 06/17/2019 10:27 AM FLASK CLEANER [facility] Specimen Anatomical Collection Method / Collection Time Recei miladis Time (Source) Location / Volume Laterality Blood Venipuncture / 06/17/2019 9:52 06/17/2019 9:52 Unknown AM FLASK CLEANER AM FLASK CLEANER Allyson Pool PA-C LAB_1 Performing Organization Address City/State/ZIP Code Phon e Number [facility] [address] [place] [address] documented in this encounter Visit Diagnoses Diagnosis Essential hypertension (HRC) Unspecified essential hypertension Screening for deficiency anemia Screening for other and unspecified defi ciency anemia Hyperlipidemia, unspecified hyperlipidem ia type (HRC) Thyroid nodule (HRC) Nontoxic uninodular goiter Vitamin D deficiency (HRC) Unspecified vitamin D deficiency 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
--- OUTSIDE RECORDS SUMMARY | 2022-02-24 15:47 | XMS_ITS | Encounter Summary ---
:1935 Author Organization [employer] Address [address] [place] [address] Care Team Providers Name Role Phone Allyson Pool PA-C Primary Care Provider Reason for Visit Reason Comments Infusion Infusion Therapy Plan (Routine) - Authorized Specialty Diagnoses / Procedures Referred By Contact Refer red To Contact Diagnoses Age-related osteoporosis without current pathological fracture (HRC) Surya Vinson MD Unknown Infusion [address] [facility] [address] Location [place] [address] Referral ID Status Reason Start Date Expiration Date Visits V isits Requested Authorized [id number] Authorized 05/19/2020 07/20/[phone] Encounter Details Date Type Department Care Team Description 07/08/2020 Hospital Encounter [facility] Pat abrams Age-related [address] [facility] [place] [address] current pathological [phone] fracture (Prima ry Dx) Social History Tobacco [...] Comments Blood Pressure 137/72 07/08/2020 9:44 AM PLATFORM SUPERVISOR Pulse 60 07/08/2020 9:44 AM PLATFORM SUPERVISOR Temperature 36.1 ??C (97 ??F) 07/08/2020 9:44 AM PLATFORM SUPERVISOR Respiratory Rate - - Oxygen Saturation - [...] . Soraya Orona RN 11:16 AM 07/08/2020 FORM SUPERVISOR documented in this encounter Plan of Treatment Not on filedocumented as of this encounter Procedures Procedure Name Priority Date/Time Associated Diagnosis Comme nts CREATININE / GFR Routine 07/08/2020 9:37 AM Age-related Resul ts for this PLATFORM SUPERVISOR osteoporosis without procedu re are in current pathological the res ults fracture section. documented in this encounter Results CREAT - Creatinine (07/08/2020 9:37 AM PLATFORM SUPERVISOR) P athologist Signature Creatinine 0.80 0.55 - 07/08/2020 [facility] 1.02 mg/dL 10:54 AM PLATFORM [facility]PER[facility]OR [facility] GFR, Estimated >60 >60 07/08/2020 [facility] mL/min/1.7 10:54 AM PLATFORM SUPERVISOR [facility] 3m2 Specimen Anatomical Collection Method / Collection Time Recei miladis Time (Source) Location / Volume Laterality Blood Venipuncture / 07/08/2020 9:37 07/08/2020 9:51 Unknown AM PLATFORM SUPERVISOR AM PLATFORM SUPERVISOR Surya Vinson MD LAB_1 Performing Organization Address City/State/ZIP Code Phon e Number [facility] [address] [place] [address] documented in this encounter Visit Diagnoses Diagnosis Age-related osteoporosis without current pathological fracture (HRC) - Primary Senile osteoporosis documented in this encounter Administered Medications Inactive Administered Medications - up to 3 most recent administrations Medication Order MAR Action Action Date Dose Rate Site sodium chloride 0.9% infusion Started 07/08/2020 10:00 AM PLATFORM SUPERVISOR 500 mL 20 mL/hr 500 mL, Intravenous, at 20 mL/hr, ONCE, On Sat07/08/20 at 1100, For 1 dose sodium chloride 0.9% injection 10-60 mL Given 07/08/2020 10:54 AM PLATFORM SUPERVISOR 10 mL 10-60 mL, Intravenous, PRN BEFORE&AFTER MEDICATIONS OR LAB DRAW, Line Patency, Starting on Sat07/08/20 at 1041, Until Sat07/08/20 at 1318, For 1 day zoledronic acid (RECLAST) infusion 5 mg Started 07/08/2020 10:51 AM PLATFORM SUPERVISOR 5 mg 5 mg, Intravenous, Administer over 20 Minutes, ONCE, On Sat07/08/20 at 1100, For 1 dose, Hold if patients creatinine clearance is less than 35 mL/minute. Preparation: Single glove, gown; face mask optional Administration: Single glove documented in this encounter Care Teams Rope Maker Relationship Specialty Start Date End Date Allyson Pool PA-C PCP - General Physician Binding Cementer French Cord 09/26/16 02/28/21 [address] [place] [id number] Erin Meza [facility] Housekeeper Child Care 10/24/17 BORIS Desir [phone] Fatou Haile Housekeeper Child Care 06/03/18 mauri garcia [facility] Signs Sales Representative 05/28/19 documented as of this encounter
--- OUTSIDE RECORDS SUMMARY | 2022-02-24 15:47 | XMS_ITS | Encounter Summary ---
:1935 Author Organization [facility] Address [address] [place] [address] Care Team Providers Name Role Phone Allyson Pool PA-C Primary Care Provider Reason for Visit Reason Comments Medicare Annual Wellness Encounter Details Date Type Department Care Team Description 06/08/2019 Office Visit [facility] Allyson Pool, [place] nal gammopathy present on serum protein electrophoresis (Primary Dx); Medicine PAYadiel Encounter for Medicare annual wellness e xam; [address] Immunization due; [place] [address] [place], [place] Screening for osteoporosis; [phone] [address] Essential hypertension; [phone] Vitamin D defic iency; (Work) Hyperlipidemia, unspecified hyperlipidem ia type; [phone] Old myocardial infarction (Fax) Social History Tobacco [...] Comments Blood Pressure 122/64 06/08/2019 3:33 PM PROPERTY MANAGEMENT BOOKKEEPER Pulse 68 06/08/2019 3:33 PM PROPERTY MANAGEMENT BOOKKEEPER Temperature - - Respiratory Rate - - Oxygen Saturation - - Inhaled Oxygen Concentration - - Weight 93 kg (205 lb) 06/08/2019 3:33 PM PROPERTY MANAGEMENT BOOKKEEPER Height 158.8 cm (5' 2.5) 06/08/2019 3:33 PM PROPERTY MANAGEMENT BOOKKEEPER Body Mass Index 36.9 06/08/2019 3:33 PM PROPERTY MANAGEMENT BOOKKEEPER documented in this encounter Patient Instructions Patient InstructionsAllyson Pool PA-C - 06/08/2019 3:30 PM CST 1.) When you are fasting (nothing to eat or drink for 8-10 hours - you can drink water) go to lab for your blood work. You can call [phone] to schedule an appointment, but can also walk in. Lab hours: Saturday-Saturday 7am-7pm. Saturdays 8am-12pm. 2.) Schedule an appointment with the piercer for November 2019. 3.) Please call [phone] to schedule your DEXA bone scan. Special instructions for the DEXA scan: - Bring a current list of your medications including calcium and vitamin D and other supplements to your appointment. - Do not have a barium x-ray for 3 weeks prior to your DEXA or IV contrast 1 week prior. 4.) Please call [phone] to schedule your thyroid ultrasound. Follow up with me in 6 months after you see your piercer. Annual Wellness Visit Summary Your care team [...] and are not due for another year. ERTY MANAGEMENT BOOKKEEPER documented in this encounter Progress Notes Allyson Pool PA-C - 06/08/2019 3:30 PM CST Internal Medicine [facility] - Allyson Vyas 83 y.o. Female : 1935 PN Date of Service: 06/08/2019 Chief Complaint: follow up Pill Packer Present: no HPI: Fidelia Vyas is a 83 y.o. female who presents with her daughter Onel for routine follow up. She had been doing well and stable. 1.) Dementia. On aricept and sx stable. She lives with her . Does her own house work. No safety concerns. 2.) Depression. Doing well since neurology switched her to effexor. 3.) H/o CAD/DE. Followed by [facility] and due for her [...] well with effexor - continue 3.) H/o CAD/DE - continue present meds - follow up [...] on serum protein electrophoresis (HRC) D47.2 Electrophoresis [place] To ALEKSEY,Serum ELP - Electrophoresis Protein, Random Urine Free Light Chains, Serum Liver Panel(Hepatic Function Panel) 2. Encounter for Medicare annual wellness exam Z00.00 3. Immunization due Z23 TDAP 4. Screening for osteoporosis Z13.820 DEXA Bone Density Spine/Hip 5. Essential hypertension ([facility]) I10 amLODIPine (NORVASC) 5 MG tablet labetalol (TRANDATE) 100 MG tablet triamterene-hydrochlorothiazide (MAXZIDE-25) 37.5-25 MG tablet 6. Vitamin D deficiency ([facility]) E55.9 Cholecalciferol (VITAMIN D3) 25 MCG (1000 UT) ta 7. Hyperlipidemia, unspecified hyperlipidemia type ([facility]) E78.5 rosuvastatin (CRESTOR) 40 MG tablet 8. Old myocardial infarction ([facility]) I25.2 nitroglycerin (NITROSTAT) 0.4 MG sublingual [...] Instructions. Allyson Pool PA-C 06/08/2019, 3:58 PM ERTY MANAGEMENT BOOKKEEPER documented in this encounter Plan of Treatment Not on filedocumented as of this encounter Results Liver Panel(Hepatic Function Panel) (06/17/2019 9:52 AM PROPERTY MANAGEMENT BOOKKEEPER) athologist Signature Alkaline 47 40 - 150 06/17/2019 [place] Phosphatase U/L 10:27 AM PROPERTY MANAGEMENT BOOKKEEPER [facility] Bilirubin, Total 1.1 0.2 - 1.2 06/17/2019 [place] mg/dL 10:27 AM PROPERTY MANAGEMENT BOOKKEEPER [facility] Bilirubin, 0.4 0.0 - 0.5 06/17/2019 [place] Direct mg/dL 10:27 AM PROPERTY MANAGEMENT BOOKKEEPER [facility] AST (SGOT) 21 10 - 40 06/17/2019 [place] U/L 10:27 AM PROPERTY MANAGEMENT BOOKKEEPER [facility] ALT (SGPT) 12 0 - 55 U/L 06/17/2019 [place] 10:27 AM PROPERTY MANAGEMENT BOOKKEEPER [facility] Protein, Total 7.1 6.4 - 8.3 06/17/2019 [place] g/dL 10:27 AM PROPERTY MANAGEMENT BOOKKEEPER [facility] Albumin 3.7 3.5 - 5.0 06/17/2019 [place] g/dL 10:27 AM PROPERTY MANAGEMENT BOOKKEEPER [facility] Specimen Anatomical Collection Method / Collection Time Recei miladis Time (Source) Location / Volume Laterality Blood Venipuncture / 06/17/2019 9:52 06/17/2019 9:52 Unknown AM PROPERTY MANAGEMENT BOOKKEEPER AM PROPERTY MANAGEMENT BOOKKEEPER Allyson Pool PA-C LAB_1 Performing Organization Address City[facility] Phon e Number [facility] [facility] [address] [place] [address] (ABNORMAL) Free Light Chains, Serum (06/17/2019 9:52 AM PROPERTY MANAGEMENT BOOKKEEPER) [facility] SendtoNews Method Time Signature [place] Free 2.80 (H) 0.33 - 06/18/2019 [facility] Light Chains 1.94 9:09 AM PROPERTY MANAGEMENT BOOKKEEPER CEN[facility]AL [facility] mg/dL Lambda Free 1.68 0.57 - 06/18/2019 [facility] Light Chains 2.63 9:09 AM PROPERTY MANAGEMENT BOOKKEEPER [facility]AL [facility] mg/dL [place]/Lambda 1.67 (H) 0.26 - 06/18/2019 [facility] Ratio 1.65 9:09 AM PROPERTY MANAGEMENT BOOKKEEPER C[facility]AL [facility] Specimen Anatomical Collection Method / Collection Time Recei miladis Time (Source) Location / Volume Laterality Blood Venipuncture / 06/17/2019 9:52 06/17/2019 9:52 Unknown AM PROPERTY MANAGEMENT BOOKKEEPER AM PROPERTY MANAGEMENT BOOKKEEPER Allyson Pool PA-C LAB_1 Performing Organization Address City/[facility] Code Phon e Number [facility] [address] [address] (ABNORMAL) Electrophoresis [place] To ALEKSEY,Serum (06/17/2019 9:52 AM PROPERTY MANAGEMENT BOOKKEEPER) [facility] SendtoNews Method Time Signature Total Protein 6.8 6.4 - 8.3 06/18/2019 [facility] g/dL 2:48 PM PROPERTY MANAGEMENT BOOKKEEPER CENTRAL [facility] Albumin 3.7 3.4 - 4.8 06/18/2019 [facility] g/dL 2:48 PM PROPERTY MANAGEMENT BOOKKEEPER CEN[facility]AL [facility] Alpha 1 0.3 0.2 - 0.5 06/18/2019 [facility] g/dL 2:48 PM PROPERTY MANAGEMENT BOOKKEEPER CEN[facility]AL [facility] Alpha 2 0.9 0.5 - 1.1 06/18/2019 [facility] g/dL 2:48 PM PROPERTY MANAGEMENT BOOKKEEPER CENTRAL [facility] Beta 0.7 0.6 - 1.1 06/18/2019 [facility] g/dL 2:48 PM PROPERTY MANAGEMENT BOOKKEEPER CEN[facility]AL [facility] Gamma 1.1 0.7 - 1.6 06/18/2019 [facility] g/dL 2:48 PM PROPERTY MANAGEMENT BOOKKEEPER CENTRAL [facility] Monoclonal 0.5 (H) <=0.0 06/18/2019 [facility] [place] g/dL 2:48 PM PROPERTY MANAGEMENT BOOKKEEPER CENTRAL LAB Comment: IgG [place] Interpretation A monoclonal protein 06/18/2019 2:4 8 [facility] has been detected by PM PROPERTY MANAGEMENT BOOKKEEPER CENTRAL L AB serum protein electrophoresis. Additional Testing Not indicated. 06/18/2019 2:48 [facility] PROPERTY MANAGEMENT BOOKKEEPER CENTRAL LAB Signed Out By [facility] 06/18/2019 2: 48 [facility] PM PROPERTY MANAGEMENT BOOKKEEPER CENTRAL LAB Specimen Anatomical Collection Method / Collection Time Recei miladis Time (Source) Location / Volume Laterality Blood Venipuncture / 06/17/2019 9:52 06/17/2019 9:52 Unknown AM PROPERTY MANAGEMENT BOOKKEEPER AM PROPERTY MANAGEMENT BOOKKEEPER Allyson Pool PA-C LAB_1 Performing Organization Address City/State/ZIP Code Phon e Number [facility] [address] [address] documented in this encounter Visit [...] infarction documented in this encounter Care Teams Social Professionals Relationship Specialty Start Date End Date Allyson Pool PA-C PCP - General Physician Master Cook 09/26/16 02/28/[address] [place] [address] Erin ESCALANTE Electric Locomotive Crane Operator 10/24/17 BORIS Desir [phone] Fatou Haile Electric Locomotive Crane Operator 06/03/18 mauri garcia [facility] Rn Imaging 05/28/19 documented as of this encounter
--- OUTSIDE RECORDS SUMMARY | 2022-02-24 15:47 | XMS_ITS | Encounter Summary ---
:1935 Author Organization [facility] Address [address] [place] [address] Care Team Providers Name Role Phone Stephanie Pool PA-C Primary Care Provider Encounter Details Date Type Department Care Team Description 08/24/2018 Refill Order [facility] Stephanie Pool PA-C [place] [address] [facility] [address] [place] [address] [phone] Social History Tobacco Use Types Packs/Day Years [...] - NEXT LAB APPOINTMENT: None Powered by [employer], Reference: [id number], 08/24/2018 3:27:11 AM CDT, Pool: LIBRADO CHÁVEZED REFILL ([id number]) documented in this encounter Plan of Treatment Not on filedocumented as of this encounter Visit Diagnoses Diagnosis Encounter for long-term (current) use of medications - Primary Encounter for long-term (current) use of other medications documented in this encounter Care Teams Metal Alloy Scientist Relationship Specialty Start Date End Date Stephanie Pool PAAlexaC PCP - General Physician Small Engine Trainer 09/26/16 02/28/[address] [place] [address] Erin ESCALANTE Dye House Vat Worker 10/24/17 BORIS Desir [phone] Fatou Haile Dye House Vat Worker 06/03/18 documented as of this encounter
--- OUTSIDE RECORDS SUMMARY | 2022-02-24 15:47 | XMS_ITS | Encounter Summary ---
:1935 Author Organization [facility] Address [address] [place] [address] Care Team Providers Name Role Phone Stephanie Pool PA-C Primary Care Provider Reason for Visit Reason Onset Date Comments Refill 12/15/2018 amLODIPine (NORVASC) 5 MG tablet Encounter Details Date Type Department Care Team Description 12/15/2018 Refill [facility] Stephanie Pool PA-C Refill (amLODIPine Medicine [address] [facility] (NORVASC) 5 MG tablet) [address] [place] [address] [place] [address] [phone] Social History Tobacco Use Types Packs/Day Years [...] 60 mm Hg on 06/26/2018 Powered by [employer], Reference: [id number], 12/15/2018 3:46:47 PM CDT, Pool: PAVON IMED REFILL ([id number]) documented in this encounter Plan of Treatment Not on filedocumented as of this encounter Visit Diagnoses Diagnosis Essential hypertension (HRC) Unspecified essential hypertension documented in this encounter Care Teams Occupational Therapy Technician Relationship Specialty Start Date End Date Stephanie Pool PA-C PCP - General Physician Telecommunications Switch Technician 09/26/16 02/28/21 [address] [place] [address] Erin ESCALANTE Rac Specialist 10/24/17 BORIS Desir [phone] Fatou Haile Rac Specialist 06/03/18 documented as of this encounter
--- OUTSIDE RECORDS SUMMARY | 2022-02-24 15:47 | XMS_ITS | Encounter Summary ---
:1935 Author Organization [facility] Address [address] [place] [address] [place] [address] Care Team Providers Name Role Phone Allyson Pool PA-C Primary Care Provider Encounter Details Date Type Department Care Team Description 07/08/2019 Notes/Orders [facility] Cancer Care Margarita leger at [facility] MILADIS Wilson ra Oncology 3931 [facility] [address] [place] [phone] (Wo rk) Social History Tobacco Use Types [...] on filedocumented in this encounter Care Teams Telephoto Installer Relationship Specialty Start Date End Date Allyson Pool PA-C PCP - General Physician Locomotive Crane Operator Helper 09/26/16 02/28/[address] [place] [address] Erin ESCALANTE Electric Motor Repairman 10/24/17 BORIS Desir [phone] Fatou Haile Electric Motor Repairman 06/03/18 mauri garcia [facility] Partner Management Consultant 05/28/19 documented as of this encounter
--- OUTSIDE RECORDS SUMMARY | 2022-02-24 15:47 | XMS_ITS | Encounter Summary ---
:1935 Author Organization [facility] Address [address], [place] [address] Care Team Providers Name Role Phone Allyson Pool PA-C Primary Care Provider Reason for Visit Reason Comments Refill Encounter Details Date Type Department Care Team Description 09/06/2019 Refill [facility] 3931 Norberto Aldridge MD Refill Neurology 3931 [facility] [address] [place] [phone] (Wo rk) Social History Tobacco Use Types [...] on filedocumented in this encounter Care Teams Traffic Control Specialist Relationship Specialty Start Date End Date Allyson Pool PA-C PCP - General Physician Panel Wirer 09/26/16 02/28/21 [address] [place] [address] Erin Meza [facility] Culinary Artist 10/24/17 BORIS Desir [phone] Fatou Haile Culinary Artist 06/03/18 mauri garcia [facility] Director Media 05/28/19 documented as of this encounter
--- OUTSIDE RECORDS SUMMARY | 2022-02-24 15:47 | XMS_ITS | Encounter Summary ---
:1935 Author Organization [facility] Address [address] [place] [address] Care Team Providers Name Role Phone Allyson Pool PA-C Primary Care Provider Reason for Visit Reason Comments IMMUNIZATIONS Encounter Details Date Type Department Care Team Description 07/04/2018 Telephone [facility] Allyson Pool PA-C IMMUNIZATIONS Medicine [address] [place] [address] [place] [address] [phone] Social History Tobacco Use Types Packs/Day Years [...] reminder and I instructed pt to call [phone] if she plans to get the shot through the clinic. Pt verbalized understanding. OYMENT LAW SPECIALIST Estrella Vann LPN - 07/04/2018 1:36 PM [...] shot we are offering at this time. OYMENT LAW SPECIALIST documented in this encounter Plan of Treatment Not on filedocumented as of this encounter Visit Diagnoses Not on filedocumented in this encounter Care Teams Explosive Ordnance Technician Relationship Specialty Start Date End Date Allyson Pool PA-C PCP - General Physician Street Sweeper 09/26/16 02/28/21 [address] [place] [address] Erin ESCALANTE Grind Operator 10/24/17 BORIS Desir [phone] Fatou Haile Grind Operator 06/03/18 documented as of this encounter
--- OUTSIDE RECORDS SUMMARY | 2022-02-24 15:47 | XMS_ITS | Encounter Summary ---
:1935 Author Organization [facility] [employer] Address [address] [facility] [place] [address] Care Team Providers Name Role Phone Allyson Pool PA-C Primary Care Provider Reason for Visit Reason Comments Follow-up Encounter Details Date Type Department Care Team Description 01/17/2018 Office Visit [place] 1601 Jose Aldridge, Recurrent major depressive disorder, in partial remission ([facility]); Neurology Anxiety 1601 [facility] . [facility] [place] [address] [place] [address] [place] [address] (Wo rk) Social History Tobacco [...] for depression/anxiety. Feel free to updateus at [phone] with an update in about 4-6 weeks. Continue the same dose of donepezil for memory, take this in the morning. Your water pill (maxzide) should also be taken in the morning, cholesterol medication (crestor) in the evening Follow up with me in about 6 months documented in this encounter Progress Notes Jose Aldridge MD - 01/17/2018 12:00 PM CDT NAME: FIDELIA LUNDBERG MR#: [id number] CSN: [id number] AUTHENTICATING CLINICIAN: Jose Aldridge MD CONFIRM #: [id number] LOC: 223 CLINIC PROGRESS NOTE DATE OF [...] previous exam. Lower extremity strength was symmetric. Qvmpio-wr-ucjr was intact bilaterally. IMPRESSION: 1. Cervical radiculopathy [...] and answering questions. DIK:RANDI C: CONFIRM #: [id number] documented in this encounter Plan of Treatment Not on filedocumented as of this encounter Visit Diagnoses Diagnosis Recurrent major depressive disorder, in partial remission (HRC) Anxiety (HRC) Anxiety state, unspecified documented in this encounter Care Teams General Office Worker Relationship Specialty Start Date End Date Allyson Pool PA-C PCP - General Physician Wad Impregnator 09/26/16 02/28/21 [address] [place] [address] Erin ESCALANTE Lei Maker 10/24/17 BORIS Desir [phone] documented as of this encounter
--- OUTSIDE RECORDS SUMMARY | 2022-02-24 15:47 | XMS_ITS | Encounter Summary ---
:1935 Author Organization [facility] Address [address] [place] [address] Care Team Providers Name Role Phone Allyson Pool PA-C Primary Care Provider Reason for Visit Reason Comments Future Appointments Routine Physical Encounter Details Date Type Department Care Team Description 06/04/2018 Telephone [facility] Allyson Pool PA-C Future Appointments Medicine [address] [facility] (Routine Physical) [address] [place] [address] [phone] (Wo rk) Social History Tobacco Use Types [...] and said that she will schedule soon. ALS COLLECTOR/ANALYST documented in this encounter Plan of Treatment Not on filedocumented as of this encounter Visit Diagnoses Not on filedocumented in this encounter Care Teams Early Education Teacher Relationship Specialty Start Date End Date Allyson Pool PA-C PCP - General Physician Chassis Mechanic 09/26/16 02/28/[address] [place] [address] Erin ESCALANTE Landscape Manager 10/24/17 BORIS Desir [phone] Fatou Haile Landscape Manager 06/03/18 documented as of this encounter
--- OUTSIDE RECORDS SUMMARY | 2022-02-24 15:47 | XMS_ITS | Encounter Summary ---
:1935 Author Organization [facility] Address [address] [place] [address] Care Team Providers Name Role Phone Allyson Pool PA-C Primary Care Provider Reason for Referral Consult/Transfer Care (Routine) - Closed Specialty Diagnoses / Procedures Referred By Contact Refer red To Contact Diagnoses Osteoporosis, unspecified osteoporosis type, unspecified pathological fracture presence (HRC) Allyson Pool PA-C [address] [place] [address] Referral ID Status Reason Start Date Expiration Date Visits Requ ested Visits Authorized [id number] Closed 04/12/2020 07/12/2021 1 1 Scheduling Instructions Your provider has recommended an appoint ment with [facility]. You may call [phone] to schedule your appoi ntment. We suggest you call your health insurance company about your coverage an d benefits for this appointment. ECTOR HAIRSPRING TRUING Reason for Visit Reason Comments Follow-up Encounter Details Date Type Department Care Team Description 04/12/2020 Office Visit [facility] Allyson Pool PA-C Osteoporosis, unspecified osteoporosis t ype, unspecified pathological fracture presence (Primary Dx); Medicine [place] Essential hypertension; [address] [place], [place] Vitamin D deficiency; [place] [address] Old myocardial infarction; [phone] Hyperlipidemia, unspecified hyperlipidemia type; (Work) Moderate episode of recurrent major depr essive disorder ([facility]) Social History Tobacco Use Types Packs/Day Years [...] Comments Blood Pressure 132/74 04/12/2020 12:05 PM INSPECTOR HAIRSPRING TRUING Pulse 62 04/12/2020 12:05 PM INSPECTOR HAIRSPRING TRUING Temperature - - Respiratory Rate - - Oxygen Saturation - - Inhaled Oxygen Concentration - - Weight 86.6 kg (191 lb) 04/12/2020 12:05 PM INSPECTOR HAIRSPRING TRUING Height - - Body Mass Index 34.38 06/08/2019 3:33 PM INSPECTOR HAIRSPRING TRUING documented in this encounter Patient Instructions Patient [...] Get enough calcium and vitamin D. The [place] of Medicine recommends adults younger than age [...] can you learn more? 1. Go to [email or web address]://[employer] or [employer]. 2. Enter K100 in the search box. Current as of: December 16, 2018?Content Version: 12.4 ?? [employer]. Care instructions adapted under license by your healthcare professional. If you have questions abouta medical condition or this instruction, always ask your healthcare professional. [employer] disclaims any warranty or liability for your use of this information. ECTOR HAIRSPRING TRUING documented in this encounter Progress Notes Allyson Pool PA-C - 04/12/2020 12:00 PM CST Internal Medicine [facility] - Allyson Pool PA-C Fidelia Vyas 84 y.o. Female : 1935 PN HP Date of Service: 04/12/2020 Chief Complaint: osteoporosis and dementia/depression Chipper Present: no HPI: Fidelia Vyas is a [...] venlafaxine (EFFEXORXR) 75 MG24 hour release capsule ECTOR HAIRSPRING TRUING documented in this encounter Plan of Treatment [...] (HRC) documented in this encounter Care Teams System Software Developer Relationship Specialty Start Date End Date Allyson Pool PA-C PCP - General Physician Ground Wood Supervisor 09/26/16 02/28/[address] [place] [address] Erin PRADOW Apron Operator 10/24/17 BORIS Desir [phone] Fatou Haile Apron Operator 06/03/18 mauri garcia [facility] Oyster Fisherman 05/28/19 documented as of this encounter
--- OUTSIDE RECORDS SUMMARY | 2022-02-24 15:47 | XMS_ITS | Encounter Summary ---
:1935 Author Organization [facility] Address [address] [place] [address] Care Team Providers Name Role Phone Allyson Pool PA-C Primary Care Provider Reason for Visit Reason Comments Follow-up Consult/Transfer Care (Routine) - Closed Specialty Diagnoses / Procedures Referred By Contact Refer red To Contact Diagnoses MGUS (monoclonal gammopathy of unknown significance) (HRC) Allyson Pool PA-C [address] [place] [address] Referral ID Status Reason Start Date Expiration Date Visits Requ ested Visits Authorized [id number] Closed 06/18/2019 09/16/2020 1 1 Encounter Details Date Type Department Care Team Description 07/08/2019 Office Visit [facility] Cancer Clifton Barboza noclonal gammopathy Care at [facility] MILADIS Farrell i present on serum [facility] [address] [place] [address] protein [address] [facility] [place] [address] [place] (Primary Dx) [phone] [address] Social History Tobacco Use Types Packs/Day Years [...] Comments Blood Pressure 138/80 07/08/2019 2:50 PM MASTER SONAR TECHNICIAN Pulse 69 07/08/2019 2:50 PM MASTER SONAR TECHNICIAN Temperature 37.8 ??C (100 ??F) 07/08/2019 2:50 PM MASTER SONAR TECHNICIAN Respiratory Rate - - Oxygen Saturation - - Inhaled Oxygen Concentration - - Weight 92.4 kg (203 lb 9.6 oz) 07/08/2019 2:50 PM MASTER SONAR TECHNICIAN Height - - Body Mass Index 36.65 06/08/2019 3:33 PM MASTER SONAR TECHNICIAN documented in this encounter Progress Notes Marlys Barboza MBBS - 07/08/2019 12:00 PM CST NAME: FIDELIA LUNDBERG MR#: [id number] CSN: [id number] AUTHENTICATING CLINICIAN: MILADIS Dennis CONFIRM #: [id number] LOC: 3704 CLINIC PROGRESS NOTE DATE OF VISIT: 07/08/2019 : 1935 Diagnosis: IGG kappa MGUS History: Fidelia is a 81-year-old with history of hypertension, coronary artery disease, with cardiac arrest and VFib in 2002, first [place] reportedly at age 44. She comes today [...] questions or concerns. CA:MEDQ C: CONFIRM #: [id number] documented in this encounter Plan of Treatment Scheduled Referrals Name Type Priority Associated Diagnoses Order S [facility] Oncology/Hematology Referral Routine MGUS (monoclonal Orde red: 06/18/2019 Consult Adult gammopathy of unknown significance) documented as of this encounter Visit Diagnoses Diagnosis Monoclonal gammopathy present on serum p rotein electrophoresis (HRC) - Primary documented in this encounter Care Teams Cigarette Stamper Relationship Specialty Start Date End Date Allyson Pool PA-C PCP - General Physician Pewter Fabricator 09/26/16 02/28/21 [address] [place] [address] Erin ESCALANTE Director Customer 10/24/17 BORIS Desir [phone] Fatou Haile Director Customer 06/03/18 mauri PRADOW Lumber Piler Operator 05/28/19 documented as of this encounter
--- OUTSIDE RECORDS SUMMARY | 2022-02-24 15:47 | XMS_ITS | Encounter Summary ---
:1935 Author Organization [employer] [facility] [employer] Address [address] [place] [address] Care Team Providers Name Role Phone Stephanie Pool PA-C Primary Care Provider Reason for Visit Reason Comments Refill Cholecalciferol (VITAMIN D3) 1000 units ta [Pharmacy Med Name: VITAMIN D 1,000UNIT TABLETS] Encounter Details Date Type Department Care Team Description 01/12/2018 Refill [facility] Stephanie Pool PA-C Refill (Cholecalciferol Medicine [address] (VITAMIN D3) 1000 units [address] [place] [address] ta [Pharmacy Med Name: [place] [address] VITAMIN D 1,000UNIT [phone] TABLETS]) Social History Tobacco Use Types Packs/Day [...] 1 TABLET BY MOUTH DAILY Interface, Out PointCare Prov Query - 01/12/2018 1:21 PM CDT [...] POOL) Next scheduled visit: None Powered by [employer], Reference: [id number], 01/12/2018 1:21:37 PM CDT, Pool: LIBRADO HERNANDEZ REFILL ([id number]) documented in this encounter Plan of Treatment Not on filedocumented as of this encounter Visit Diagnoses Diagnosis Vitamin D deficiency (HRC) Unspecified vitamin D deficiency documented in this encounter Care Teams Electrician Relationship Specialty Start Date End Date Stephanie Pool PAAlexaC PCP - General Physician Bounty Trapper 09/26/16 02/28/[address] [place] [address] Erin ESCALANTE Jigger Machine Operator 10/24/17 Fatou Haile, BORIS [phone] documented as of this encounter
--- OUTSIDE RECORDS SUMMARY | 2022-02-24 15:47 | XMS_ITS | Encounter Summary ---
:1935 Author Organization [facility] Address [address] [place] [address] Care Team Providers Name Role Phone Allyson Pool PA-C Primary Care Provider Reason for Referral Procedure/Equipment (Routine) - Incomplete Specialty Diagnoses / Procedures Referred By Contact Refer red To Contact Diagnoses Thyroid nodule (HRC) Allyson Pool PA-C Procedures US Thyroid [address] [place] [address] Referral ID Status Reason Start Date Expiration Date Visits V isits Requested Authorized [id number] Incomplete 06/26/2018 09/25/2019 1 1 DOWN MATCHER Reason for Visit Reason Comments Annual Exam Non-Fasting Encounter Details Date Type Department Care Team Description 06/26/2018 Office Visit [facility] Allyson Pool PA-C Annual physical exam (Primary Dx); Medicine [address] [address] Dementia in Alzheimer's disease; [address] [place], [place] Thyroid nodule; [place] [address] Essential hypertension; [phone] Vitamin D defic iency; (Work) Hyperlipidemia, unspecified [...] Comments Blood Pressure 110/60 06/26/2018 10:46 AM TEAR DOWN MATCHER Pulse 64 06/26/2018 10:46 AM TEAR DOWN MATCHER Temperature - - Respiratory Rate - - Oxygen Saturation - - Inhaled Oxygen Concentration - - Weight 92.6 kg (204 lb 3.2 oz) 06/26/2018 10:46 AM TEAR DOWN MATCHER Height 161.3 cm (5' 3.5) 06/26/2018 10:46 AM TEAR DOWN MATCHER Body Mass Index 35.61 06/26/2018 10:46 AM TEAR DOWN MATCHER documented in this encounter Patient Instructions Patient [...] for your blood work. You can call [phone] to schedule an appointment, but can also walk in. Lab hours:Saturday-Saturday 7am-7pm. Saturdays 8am-12pm. Schedule a nurse visit for vaccines when you come in for your fasting labs. Follow up with me in 4 months. Bring in your health Care Directive. DOWN MATCHER documented in this encounter Progress Notes Allyson Pool PA-C - 06/26/2018 10:30 AM CST Internal Medicine [facility] - Allyson Pool PA-C Fidelia Vyas 82 y.o. Female : 1935 PN Date of Service: 06/26/2018 Chief Complaint: Annual physical exam Cutter Machine Tender Present: no HPI: Fidelia Vyas is a 82 y.o. female who presents for annual physical exam. She is with her daughter Onel. Patient is living in her home with her ED. Her dementia is progressive but stable.On aricep. She is followed by neurology. CAD with h/o DE and stents. HTN and HLD. Seen last by her sound system installer in 2018 and doing well. Plan to [...] Vitamin D def - continue vitamin d Allyson Pool PA-C 12:33 PM 06/26/2018 ICD-10-CM 1. Annual physical exam Z00.00 2. 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 Thyroid nodule ([facility]) E04.1 US Thyroid TSH with Free T4 (if TSH Abnormal) 4. Essential hypertension (HRC) I10 amLODIPine (NORVASC) 5 MG tablet labetalol (TRANDATE) 100 MG tablet triamterene-hydrochlorothiazide (MAXZIDE-25) 37.5-25 MG tablet Basic Metabolic Panel 5. Vitamin D deficiency ([facility]) E55.9 Cholecalciferol (VITAMIN D3) 1000 units ta [...] for deficiency anemia Z13.0 Complete Blood Count-W/Diff DOWN MATCHER documented in this encounter Plan of Treatment Not on filedocumented as of this encounter Results US Thyroid (06/26/2019 2:40 PM TEAR DOWN MATCHER) Anatomical Region Laterality Modality Neck, Head Ultrasound Specimen (Source) Anatomical Collection Method Collection Time Re ceived Time Location / / Volume Laterality 06/26/2019 2:14 PM TEAR DOWN MATCHER Impressions 06/26/2019 2:56 PM TEAR DOWN MATCHER COMPARISON: 05/17/2017. Reference also made to a [...] Vitamin D 25-Hydroxy, Total (06/17/2019 9:52 AM TEAR DOWN MATCHER) P athologist Signature Vitamin D, 36 30 - 80 06/17/2019 [facility] 25-OH, Total ng/mL 3:39 PM TEAR DOWN MATCHER LABORATORY Specimen Anatomical Collection Method / Collection Time Recei miladis Time (Source) Location / Volume Laterality Blood Venipuncture / 06/17/2019 9:52 06/17/2019 9:52 Unknown AM TEAR DOWN MATCHER AM TEAR DOWN MATCHER Allyson Pool PA-C LAB_1 Performing Organization Address [facility] Phon e Number [facility] [address] [place] [address] TSH with Free T4 (if TSH Abnormal) (06/17/2019 9:52 AM TEAR DOWN MATCHER) athologist Signature TSH, Reflex 1.16 0.30 - 4.50 06/17/2019 [facility] uIU/mL 3:39 PM TEAR DOWN MATCHER LABORATORY Specimen Anatomical Collection Method / Collection Time Recei miladis Time (Source) Location / Volume Laterality Blood Venipuncture / 06/17/2019 9:52 06/17/2019 9:52 Unknown AM TEAR DOWN MATCHER AM TEAR DOWN MATCHER Narrative [facility] - 06/17/2019 3:39 P M TEAR DOWN MATCHER Lab will automatically reflex to Free T4 when TSH results are <0.30 uIU/mL or >4.50 mIU/mL. Allyson Pool PA-C LAB_1 Performing Organization Address [facility] Phon e Number [facility] [address] [place] [address] Lipid Panel and Direct LDL(If Needed) (06/17/2019 9:52 AM TEAR DOWN MATCHER) Analysis Performed At Patho logist Time Signature Cholesterol 141 0 - 199 06/17/2019 [facility] mg/dL 10:27 AM TEAR DOWN MATCHER LABORATORY Triglyceride 77 <=149 06/17/2019 [facility] mg/dL 10:27 AM TEAR DOWN MATCHER LABORATORY HDL Cholesterol 62 >=40 mg/dL 06/17/2019 [facility] 10:27 AM TEAR DOWN MATCHER LABORATORY LDL, Calculated 64 <130 mg/dL 06/17/2019 [facility] 10:27 AM TEAR DOWN MATCHER LABORATORY Non HDL Chol, 79 mg/dL 06/17/2019 [facility] Calculated 10:27 AM TEAR DOWN MATCHER LABORATORY Cholesterol/HDL 2.3 06/17/2019 [facility] Ratio 10:27 AM TEAR DOWN MATCHER LABORATORY Hours Fasting 12 06/17/2019 [facility] 10:27 AM TEAR DOWN MATCHER LABORATORY Specimen Anatomical Collection Method / Collection Time Recei miladis Time (Source) Location / Volume Laterality Blood Venipuncture / 06/17/2019 9:52 06/17/2019 9:52 Unknown AM TEAR DOWN MATCHER AM TEAR DOWN MATCHER Allyson Pool PA-C LAB_1 Performing Organization Address City/State/ZIP Code Phon e Number [facility] [address] [place] [address] (ABNORMAL) Basic Metabolic Panel (06/17/2019 9:52 AM TEAR DOWN MATCHER) P athologist Signature Sodium 142 136 - 145 06/17/2019 [facility] mmol/L 10:27 AM TEAR DOWN MATCHER LABORATORY Potassium 3.8 3.5 - 5.1 06/17/2019 [facility] mmol/L 10:27 AM TEAR DOWN MATCHER LABORATORY Chloride 105 98 - 109 06/17/2019 [facility] mmol/L 10:27 AM TEAR DOWN MATCHER LABORATORY CO2 28 20 - 29 06/17/2019 [facility] mmol/L 10:27 AM TEAR DOWN MATCHER LABORATORY Anion Gap 9 7 - 16 06/17/2019 [facility] mmol/L 10:27 AM TEAR DOWN MATCHER LABORATORY Calcium 9.2 8.4 - 10.4 06/17/2019 [facility] mg/dL 10:27 AM TEAR DOWN MATCHER LABORATORY BUN <10 7 - 26 06/17/2019 [facility] mg/dL 10:27 AM TEAR DOWN MATCHER LABORATORY Creatinine 0.90 0.55 - 06/17/2019 [facility] 1.02 mg/dL 10:27 AM TEAR DOWN MATCHER LABORATORY GFR, Estimated 60 (L) >60 06/17/2019 [facility] mL/min/1.7 10:27 AM TEAR DOWN MATCHER LABORATORY 3m2 GFR, Est If >60 >60 06/17/2019 [facility] mL/min/1.7 10:27 AM TEAR DOWN MATCHER LABORATORY Malagasy 3m2 Glucose 91 70 - 100 06/17/2019 [facility] mg/dL 10:27 AM TEAR DOWN MATCHER LABORATORY Comment: The given reference range is fo r the fasting state. Non-fasting reference range for glucose is 70 - 180 mg/dL. Hours Fasting 12 06/17/2019 10:27 AM TEAR DOWN MATCHER [facility] Specimen Anatomical Collection Method / Collection Time Recei miladis Time (Source) Location / Volume Laterality Blood Venipuncture / 06/17/2019 9:52 06/17/2019 9:52 Unknown AM TEAR DOWN MATCHER AM TEAR DOWN MATCHER Allyson Pool PA-C LAB_1 Performing Organization Address City/State/ZIP Code Phon e Number [facility] [address] [place] [address] documented in this encounter [...] Coronary atherosclerosis of unspecified type of vessel, [place] or graft Recurrent major depressive disorder, in remission (HRC) Screening for deficiency anemia Screening for other and unspecified defi ciency anemia Thyroid nodule (HRC) Nontoxic uninodular goiter documented in this encounter Care Teams Retail Property Manager Relationship Specialty Start Date End Date Allyson Pool PA-C PCP - General Physician Wood Drill Operator 09/26/16 02/28/21 [address] [facility] [place] [address] Erin ESCALANTE Topology Teacher 10/24/17 BORIS Desir [phone] Fatou Haile Topology Teacher 06/03/18 documented as of this encounter
--- OUTSIDE RECORDS SUMMARY | 2022-02-24 15:47 | XMS_ITS | Encounter Summary ---
:1935 Author Organization [employer] Address [address] [place] [address] Care Team Providers Name Role Phone Allyson Pool PA-C Primary Care Provider Reason for Referral Consult/Transfer Care (Routine) - Closed Specialty Diagnoses / Procedures Referred By Contact Refer red To Contact Diagnoses MGUS (monoclonal gammopathy of unknown significance) (HRC) Allyson Pool PA-C [address] [place] [address] Referral ID Status Reason Start Date Expiration Date Visits Requ ested Visits Authorized [id number] Closed 06/18/2019 09/16/2020 1 1 Scheduling Instructions Your provider has recommended an appoint ment with [facility]. You may call [phone] to quincy edule your appointment. If you do not schedule an appointment within the next 1 to 3 business days, we will call you to help arrange your appointment. We sugges t you call your health insurance company about your coverage and benefits for thi s appointment. THERAPIST Reason for Visit Reason Comments LAB RESULTS Encounter Details Date Type Department Care Team Description 06/18/2019 Telephone Allyson Palomo PA-C LAB RESULTS Medicine [address] [address] [address] [place] [address] [place] [address] [phone] Social History Tobacco Use Types Packs/Day Years [...] provider's message below and instructedhim to call [phone] to schedule with Hematology. Pt's verbalized understanding. THERAPIST Allyson Pool PA-C - 06/18/2019 3:55 PM CST Patient should schedule routine follow up with the generation engineering technologist for her MGUS (monocloncal protein ofundetermined significance). Her kappa level has increased slightly so I do think it is time for a check in with them to assure no other testing is needed. Last seen in 2018 and they had recommended a 6month follow up at that time. Allyson Pool PA-C 3:56 PM 06/18/2019 THERAPIST documented in this encounter Plan of Treatment Scheduled Referrals Name Type Priority Associated Diagnoses Order S [facility] Oncology/Hematology Referral Routine MGUS (monoclonal Orde red: 06/18/2019 Consult Adult gammopathy of unknown significance) documented as of this encounter Visit Diagnoses Diagnosis MGUS (monoclonal gammopathy of unknown s ignificance) (HRC) - Primary Monoclonal paraproteinemia documented in this encounter Care Teams Conditioner Tender Relationship Specialty Start Date End Date Allyson Pool PA-C PCP - General Physician Braze Operator 09/26/16 02/28/[address] [place] [address] Erin ESCALANTE Color Control Supervisor 10/24/17 BORIS Desir [phone] Fatou Haile Color Control Supervisor 06/03/18 mauri garcia [facility] Financial Health Counselor 05/28/19 documented as of this encounter
--- OUTSIDE RECORDS SUMMARY | 2022-02-24 15:47 | XMS_ITS | Encounter Summary ---
:1935 Author Organization [employer] Address [address] [place] [address] Care Team Providers Name Role Phone Allyson Pool PA-C Primary Care Provider Reason for Visit Reason Comments Follow-up Encounter Details Date Type Department Care Team Description 07/18/2018 Office Visit [facility] [address] Jose Aldridge, Dementia in Alzheimer's disease (Primary Dx); Neurology Recurrent major depressive disorder, in partial remission (HRC) [address] [facility] . [address] [facility] [place] [address] [facility] [address] [place] [phone] (Wo rk) Social History Tobacco Use Types [...] Comments Blood Pressure 146/66 07/18/2018 1:47 PM HOD CARRIER Pulse 60 07/18/2018 1:47 PM HOD CARRIER Temperature - - Respiratory Rate 16 07/18/2018 1:47 PM HOD CARRIER Oxygen Saturation - - Inhaled Oxygen Concentration [...] up with me in about 6 months. CARRIER documented in this encounter Progress Notes Jose Aldridge MD - 07/18/2018 12:00 PM CST NAME: FIDELIA LUNDBERG MR#: [id number] CSN: [id number] AUTHENTICATING CLINICIAN: Jose Aldridge MD CONFIRM #: [id number] LOC: 223 CLINIC PROGRESS NOTE DATE OF [...] concerns or questions. BASILIA:RANDI C: CONFIRM #: [id number] documented in this encounter Plan of Treatment Not on filedocumented as of this encounter Visit Diagnoses Diagnosis Dementia in Alzheimer's disease (HRC) - Primary Alzheimer's disease Recurrent major depressive disorder, in partial remission (HRC) documented in this encounter Care Teams School Psychologist Assistant Relationship Specialty Start Date End Date Allyson Pool PA-C PCP - General Physician Multiple Sclerosis Nurse 09/26/16 02/28/21 [address] [place] [address] Erin ESCALANTE Speech/Language Therapist 10/24/17 BORIS Desir [phone] Fatou Haile Speech/Language Therapist 06/03/18 documented as of this encounter
--- OUTSIDE RECORDS SUMMARY | 2022-02-24 15:48 | XMS_ITS | Encounter Summary ---
:1935 Author Organization [employer] Address [address] [place] [address] Care Team Providers Name Role Phone Allyson Pool PA-C Primary Care Provider Reason for Visit Reason Comments LETTER NEEDED Encounter Details Date Type Department Care Team Description 10/24/2017 Telephone [facility] Allyson Pool PA-C LETTER NEEDED Medicine [address] [facility] [address] [place], [place] [address] [place] [address] [phone] Social History Tobacco Use Types Packs/Day Years [...] your completed letter/other? Mail to this address: [address] [facility] [address] Additional comments (related to the above concern): [...] on filedocumented in this encounter Care Teams Proofer Prepress Relationship Specialty Start Date End Date Allyson Pool PA-C PCP - General Physician Special Education Instructor 09/26/16 02/28/[address] [place] [address] Erin ESCALANTE Home Lending Officer 10/24/17 BORIS Desir [phone] documented as of this encounter
--- OUTSIDE RECORDS SUMMARY | 2022-02-24 15:48 | XMS_ITS | Encounter Summary ---
:1935 Author Organization [facility] Address [address] [place] [address] Care Team Providers Name Role Phone Allyson Pool PA-C Primary Care Provider Reason for Visit Procedure/Equipment (Routine) - Incomplete Specialty Diagnoses / Procedures Referred By Contact Refer red To Contact Diagnoses S/P cervical spinal fusion Phuong Vogel, REGULATION SUPERVISOR, Procedures XR Cervical Spine 2 Views AIRCRAFT MAINTENANCE SUPERVISOR [address] [place], [place] [address] Referral ID Status Reason Start Date Expiration Date Visits V isits Requested Authorized [id number] Incomplete 09/27/2017 12/27/2018 1 1 Encounter Details Date Type Department Care Team Description 09/30/2017 [facility] [address] Phuong Vogel, S/P cervical spinal Radiology REGULATION SUPERVISOR, AIRCRAFT MAINTENANCE SUPERVISOR fusion [address] [place] [phone] (Wo rk) Social History Tobacco Use Types [...] changes C5-C7 stable. No subluxation. Phuong Vogel REGULATION SUPERVISOR, AIRCRAFT MAINTENANCE SUPERVISOR RAD GD documented in this encounter Visit Diagnoses Diagnosis S/P cervical spinal fusion Arthrodesis status documented in this encounter Care Teams Painter And Decorator Relationship Specialty Start Date End Date Allyson Pool PA-C PCP - General Physician Revenue Officer 09/26/16 02/28/21 [address] [place] [address] documented as of this encounter
--- OUTSIDE RECORDS SUMMARY | 2022-02-24 15:48 | XMS_ITS | Encounter Summary ---
:1935 Author Organization [employer] Address [address] [place] [address] Care Team Providers Name Role Phone Stephanie Pool PA-C Primary Care Provider Reason for Visit Reason Comments Refill rosuvastatin (CRESTOR) 40 MG tablet [Pharmacy Med Name: ROSUVASTATIN 40MG TABLETS] Encounter Details Date Type Department Care Team Description 10/29/[address] [facility] Stephanie Pool PA-C Refill (rosuvastatin Medicine [address] (CRESTOR) 40 MG tablet [address] [place] [address] [[place] [address] ROSUVASTATIN 40MG [phone] TABLETS]) Social History Tobacco Use Types Packs/Day [...] POOL) Next scheduled visit: None Powered by [employer] Reference: [id number], 10/29/2017 6:02:47 PM CDT, Pool: LIBRADO HERNANDEZ REFILL ([id number]) documented in this encounter Plan of Treatment Not on filedocumented as of this encounter Visit Diagnoses Diagnosis Hyperlipidemia, unspecified hyperlipidem ia type (HRC) documented in this encounter Care Teams Santa'S Helper Relationship Specialty Start Date End Date Stephanie Pool PA-C PCP - General Physician Cigarette Machine Filler 09/26/16 02/28/[address] [place] [address] Erin ESCALANTE Tester Operator Helper 10/24/17 BORIS Desir [phone] documented as of this encounter
--- OUTSIDE RECORDS SUMMARY | 2022-02-24 15:48 | XMS_ITS | Encounter Summary ---
:1935 Author Organization [employer] Address [address], [place] [address] Care Team Providers Name Role Phone Allyson Pool PA-C Primary Care Provider Reason for Visit Procedure/Equipment (Routine) - Incomplete Specialty Diagnoses / Procedures Referred By Contact Refer red To Contact Diagnoses MGUS (monoclonal gammopathy of unknown significance) (HRC) Marlys Barboza Procedures NM PET/CT Skull Base To Mid Thigh MILADIS Moore [address] [place], [place] [address] Referral ID Status Reason Start Date Expiration Date Visits V isits Requested Authorized [id number] Incomplete 10/22/2017 01/21/2019 6 6 Encounter Details Date Type Department Care Team Description 10/25/2017 Hospital Encounter [facility] Margarita Luna, Medicine MILADIS Guerrero [address] [facility] [place] [phone] (Wo rk) Social History Tobacco Use Types [...] of the calvarium is not included in hkryl-xs-syvz and thus the calvarial lesions noted on [...] of the calvarium is not included in jullz-fr-pdgr. Mild hypermetabolic activity at the right lob [...] of the calvarium is not included in kacrg-bc-szuf and thus the calvarial lesions noted on brain MRI are not evaluated on this exam. Marlys REDDING RAD NM documented in this encounter Visit Diagnoses Not on filedocumented in this encounter Care Teams Staff Weapons Officer Relationship Specialty Start Date End Date Allyson Pool PA-C PCP - General Physician Blanking Press Operator 09/26/16 02/28/21 [address] [place] [address] Erin ESCALANTE Production Lead 10/24/17 BORIS Desir [phone] documented as of this encounter
--- OUTSIDE RECORDS SUMMARY | 2022-02-24 15:48 | XMS_ITS | Encounter Summary ---
:1935 Author Organization [employer] Address [address] [place] [address] Care Team Providers Name Role Phone Allyson Pool PA-C Primary Care Provider Encounter Details Date Type Department Care Team Description 10/02/2017 Lab Visit [facility] Monoclonal gammopathy [facility] [address] [facility] [place] [address] electrophoresis [phone] Social History Tobacco Use Types Packs/Day Years [...] - 10/02/2017 1:35 PM CDT Performed at [facility], [address] [place] [address] CLIA number [id number] Marlys [facility]_1 Performing Organization Address City/State/ZIP Code Phon e Number PN SOFT [address] [place], [place] [address] (ABNORMAL) Electrophoresis Protein, Serum - in 4 months (10/02/2017 1:32 PM CDT) athologist Signature Total Protein 6.8 6.4 - 8.3 PN SOFT g/dl Comment: Performed at [facility], [address] [address] ??[address] Albumin 3.8 3.4 - 4.8 g/dl PN SOFT Alpha 1 0.3 0.2 - 0.5 g/dl PN SOFT Alpha 2 0.8 0.5 - 1.1 g/dl PN SOFT Beta 0.7 0.6 - 1.1 g/dl PN SOFT Gamma 1.2 0.7 - 1.6 g/dl PN SOFT Monoclonal Joaquin 0.5 (H) 0.0 g/dl PN SOFT Comment: IgG [place] Interpretation SEE BELOW PN SOFT Comment: A monoclonal protein has been detected b y serum protein electrophoresis. Signed out by SEE BELOW PN SOFT Comment: [facility] Laboratory Performed at [address] ??[address] CLIA Number [id number] Specimen Anatomical Collection Method Collection Time Receive d Time (Source) Location / / Volume Laterality 10/02/2017 1:32 PM 8 6:17 CDT PM CDT Marlys Luna [facility]_1 Performing Organization Address City/[facility] Phon e Number PN SOFT [address] [place], [place] [address] (ABNORMAL) Free Light Chains, Serum - in 4 months (10/02/2017 1:32 PM CDT) P athologist Signature [place] Free 2.73 (H) 0.33 - PN SOFT Light Chains 1.94 mg/dl Lambda Free 1.59 0.57 - PN SOFT Light Chains 2.63 mg/dl [place]/Lambda 1.72 (H) 0.26 - PN SOFT Ratio Free 1.65 Light Chains Comment: Performed at [facility], [address] [address] ??[address] CLIA Number [id number] Specimen Anatomical Collection Method Collection Time Receive d Time (Source) Location / / Volume Laterality 10/02/2017 1:32 PM 8 6:12 CDT PM CDT Marlys [facility]_1 Performing Organization Address [facility]/ZIP Code Phon e Number PN SOFT [address] [place] [address] Creatinine / GFR (10/02/2017 1:32 PM CDT) [...] - 10/02/2017 1:49 PM CDT Performed at [facility], [address] [place] [address] CLIA number [id number] Marlys [facility]_1 Performing Organization Address City/[facility] Code Phon e Number PN SOFT [address] [place] [address] Bilirubin, Total (10/02/2017 1:32 PM CDT) athologist Signature Bilirubin Total 1.0 0.2 - 1.2 PN SOFT mg/dL Specimen Anatomical Collection Method Collection Time Receive d Time (Source) Location / / Volume Laterality 10/02/2017 1:32 PM 8 1:32 CDT PM CDT Narrative PN SOFT - 10/02/2017 1:49 PM CDT Performed at [facility], [facility] [address] [place] [address] CLIA number [id number] Marlys [facility]_1 Performing Organization Address City/[facility]/ZIP Code Phon e Number PN SOFT [address] [place] [address] Calcium (10/02/2017 1:32 PM CDT) P athologist Signature Calcium 9.2 8.4 - 10.4 PN SOFT mg/dL Specimen Anatomical Collection Method Collection Time Receive d Time (Source) Location / / Volume Laterality 10/02/2017 1:32 PM 8 1:32 CDT PM CDT Narrative PN SOFT - 10/02/2017 1:49 PM CDT Performed at [facility], [address] [place] [address] CLIA number [id number] Marlys [facility]_1 Performing Organization Address [facility] Phon e Number PN SOFT [address] [place] [address] AST (10/02/2017 1:32 PM CDT) Patholo gist Method Time Signature Aspartate 20 10 - 40 PN SOFT Aminotransferase U/L Specimen Anatomical Collection Method Collection Time Receive d Time (Source) Location / / Volume Laterality 10/02/2017 1:32 PM 8 1:32 CDT PM CDT Narrative PN SOFT - 10/02/2017 1:49 PM CDT Performed at [facility], [address] [place] [address] CLIA number [id number] Marlys [facility]_1 Performing Organization Address [facility] Phon e Number PN SOFT [address] [place] [address] Alkaline Phosphatase, Total (10/02/2017 1:32 PM CDT) P athologist Signature Alk Phos 53 40 - 150 U/L PN SOFT Specimen Anatomical Collection Method Collection Time Receive d Time (Source) Location / / Volume Laterality 10/02/2017 1:32 PM 8 1:32 CDT PM CDT Narrative PN SOFT - 10/02/2017 1:49 PM CDT Performed at [facility], [address] [place] [address] CLIA number [id number] Marlys [facility]_1 Performing Organization Address City/[facility]/ZIP Code Phon e Number PN SOFT [address] [place] [address] Complete Blood Count W/Diff - in 4 [...] - 10/02/2017 1:35 PM CDT Performed at [facility], [address] [place] [address] CLIA number [id number] Marlys Teresa [facility]_1 Performing Organization Address City/[facility] Phon e Number PN SOFT [address] [place] [address] documented in this encounter Visit Diagnoses Diagnosis Monoclonal gammopathy present on serum p rotein electrophoresis (HRC) documented in this encounter Care Teams Director Biostatistics Relationship Specialty Start Date End Date Allyson Pool PA-C PCP - General Physician Sql Report Analyst 09/26/16 02/28/[address] [place] [address] documented as of this encounter
--- OUTSIDE RECORDS SUMMARY | 2022-02-24 15:48 | XMS_ITS | Encounter Summary ---
:1935 Author Organization [facility] Address [address] [place] [address] Care Team Providers Name Role Phone Allyson Pool PA-C Primary Care Provider Reason for Visit Procedure/Equipment (Routine) - Incomplete Specialty Diagnoses / Procedures Referred By Contact Refer red To Contact Diagnoses S/P cervical spinal fusion Warner Machado PA-C Procedures XR Cervical Spine 2 Views [address] [facility] [address] [place] [address] [place], [place] [address] Referral ID Status Reason Start Date Expiration Date Visits V isits Requested Authorized [id number] Incomplete 08/19/2017 11/18/2018 1 1 Encounter Details Date Type Department Care Team Description 08/20/2017 Imaging [facility] 3931 Lg Machado PA-C S/P cervical spinal Radiology [address] [facility] fusion [address] [facility] [address] [place] [address] [place] [phone] (Wo rk) Social History Tobacco Use Types [...] status documented in this encounter Care Teams Patient Financial Counselor Relationship Specialty Start Date End Date Allyson Pool PA-C PCP - General Physician Route Sales Manager 09/26/16 02/28/21 [address] [place] [address] documented as of this encounter
--- OUTSIDE RECORDS SUMMARY | 2022-02-24 15:48 | XMS_ITS | Encounter Summary ---
:1935 Author Organization [employer] Address [address] [place] [address] Care Team Providers Name Role Phone Allyson Pool PA-C Primary Care Provider Reason for Referral Therapies (Routine) - Closed Specialty Diagnoses / Procedures Referred By Contact Refer red To Contact Diagnoses Radiculopathy of cervical region H/O cervical spine surgery Abnormal gait Myeloradiculopathy Allyson Pool PA-C [address] [place] [address] Referral ID Status Reason Start Date Expiration Date Visits Requ ested Visits Authorized [id number] Closed 08/22/2017 10/21/2017 1 1 Scheduling Instructions Your provider has recommended an appoint ment with [facility]. You may call [phone] to schedule [facility] appointment. If you do not schedule an appointment within the next 1 to 3 busin ess days, we will call you to help arrange your appointment. We suggest you call [facility] health insurance company about your coverage and benefits for this appointme nt. herapies (Routine) - Closed Specialty Diagnoses / Procedures Referred By Contact Refer red To Contact Diagnoses Radiculopathy of cervical region H/O cervical spine surgery Abnormal gait Myeloradiculopathy Allyson Pool PA-C [address] [place] [address] Referral ID Status Reason Start Date Expiration Date Visits Requ ested Visits Authorized [id number] Closed 08/22/2017 10/21/2017 1 1 Scheduling Instructions Your provider has recommended an appoint ment with [facility]. You may call [phone] to schedule your a ppointment. If you do not schedule an appointment within the next 1 to 3 busin ess days, we will call you to help arrange your appointment. We suggest you call [employer] about your coverage and benefits for this appointme nt. Reason for Visit Reason Comments Orders Needed Encounter Details Date Type Department Care Team Description 08/21/2017 Telephone [facility] Allyson Pool PA-C Orders Needed Medicine [address] [facility] [address] [place] [address] [place] [address] [phone] Social History Tobacco Use Types Packs/Day Years Used Date Smoking Tobacco: Never Smokeless Tobacco: Never Alcohol Use Standard Drinks/Week Comments Yes 0 (1 standard drink = 0.6 oz pure alcoho l) rare occasions (1 per month) Sex Assigned at Date Recorded Not on file documented as of this encounter Nursing Notes Estrella Vann LPN - 08/22/2017 10:26 AM CDT [facility] and notified her that Allyson Pool PA-C put in ordered for PT and OT. I instructed her that these orders were listed as in department so if the order needs to be different she needs to call [phone] to request the appropriate orders. If this is correct I instructed Sonia to call [phone] to set the first and follow-up appointments [...] Name Type Priority Associated Diagnoses Order S [facility] Physical Therapy Referral Routine Radiculopathy of cervica [...] er documented in this encounter Care Teams Powerhouse Helper Relationship Specialty Start Date End Date Allyson Pool PA-C PCP - General Physician Radar Mechanic 09/26/16 02/28/[address] [place] [address] documented as of this encounter
--- OUTSIDE RECORDS SUMMARY | 2022-02-24 15:48 | XMS_ITS | Encounter Summary ---
:1935 Author Organization [employer] Address [address] [place] [address] Care Team Providers Name Role Phone Allyson Pool PA-C Primary Care Provider Reason for Visit Reason Comments Paperwork Encounter Details Date Type Department Care Team Description 09/09/2017 Telephone [facility] Allyson Pool PA-C Paperwork Medicine [address] [place] [address] [place] [address] [phone] Social History Tobacco Use Types Packs/Day Years [...] contact HIM. I put the phone number [phone] ans fax number [phone] on the cover page so she has them if needed. Viktoriya verbalized understanding and appreciation for getting back to her. Jamila Lassiter RN - 09/09/2017 4:00 PM CDT Will route to DA to advise. Vonnie Duarte - 09/09/2017 3:52 PM CDT Caller is requesting a copy of pt's most recent History and Physical to fax : [phone]. Attn: Viktoriya. documented in this encounter Plan of Treatment Not on filedocumented as of this encounter Visit Diagnoses Not on filedocumented in this encounter Care Teams Locomotive Firer/Fireman Relationship Specialty Start Date End Date Allyson Pool PA-C PCP - General Physician Airline Manager 09/26/16 02/28/21 [address] [place] [address] documented as of this encounter
--- OUTSIDE RECORDS SUMMARY | 2022-02-24 15:48 | XMS_ITS | Encounter Summary ---
:1935 Author Organization [employer] Address [address] [place] [address] [place] [address] Care Team Providers Name Role Phone Allyson Pool PA-C Primary Care Provider Reason for Visit Reason Comments Follow-up Encounter Details Date Type Department Care Team Description 09/30/2017 Office Visit Specialty Center 3931 Phuong Vogel, S/P cervical spinal fusion (Primary Dx); Neurosurgery SUPERVISOR WATERWORKS, DIGITAL COMMUNITY MANAGER Cervical myelopathy (HRC) 3931 [facility]. [address] [place] [phone] (Wo rk) Social History Tobacco Use Types [...] to Radiology for X-rays now: Take the [place] elevators down to floor 1, turn LEFT [...] this encounter Progress Notes Phuong Vogel, HATTIE, DIGITAL COMMUNITY MANAGER - 09/30/2017 3:06 PM CDT NAME: FIDELIA LUNDBERG MR#: [id number] CSN: [id number] AUTHENTICATING CLINICIAN: CARLO Carrasquillo CONFIRM #: [id number] LOC: 262 CLINIC PROGRESS NOTE DATE OF [...] minutes, with 25 minutes spent in counseling. [facility]:RANDI C: CONFIRM #: [id number] Phuong Vogel APRN, CNP - 09/30/2017 2:30 PM CDT Neurosurgery This note has been dictated. Phuong Vogel APRN, ZAHEER,CNRN documented in this encounter Plan of Treatment Not on filedocumented as of this encounter Visit Diagnoses Diagnosis S/P cervical spinal fusion - Primary Arthrodesis status Cervical myelopathy (HRC) Cervical spondylosis with myelopathy documented in this encounter Care Teams Clinical Operations Consultant Relationship Specialty Start Date End Date Allyson Pool PA-C PCP - General Physician Commercial Journeyman Electrician 09/26/16 02/28/21 [address] [place] [address] documented as of this encounter
--- OUTSIDE RECORDS SUMMARY | 2022-02-24 15:48 | XMS_ITS | Encounter Summary ---
:1935 Author Organization [employer] Address [address] [place] [address] Care Team Providers Name Role Phone Allyson Pool PA-C Primary Care Provider Reason for Visit Procedure/Equipment (Routine) - Incomplete Specialty Diagnoses / Procedures Referred By Contact Refer red To Contact Diagnoses S/P cervical spinal fusion Phuong Vogel, CRYSTAL SLICER, Procedures XR Cervical Spine 2 Views ZIGZAG MACHINE OPERATOR 39[address] [place], [place] [address] Referral ID Status Reason Start Date Expiration Date Visits V isits Requested Authorized [id number] Incomplete 01/02/2018 04/03/2019 1 1 Encounter Details Date Type Department Care Team Description 01/03/2018 Imaging [facility] Phuong Vogel, S/P cervical spinal [address] [facility] CRYSTAL SLICER, ZIGZAG [place] [address] [place] [address] [place] [address] (Wo rk) Social History Tobacco [...] soft tissue swelling is seen. Phuong Vogel CRYSTAL SLICER, ZIGZAG MACHINE OPERATOR RAD GD documented in this encounter Visit Diagnoses Diagnosis S/P cervical spinal fusion Arthrodesis status documented in this encounter Care Teams Brain Picker Relationship Specialty Start Date End Date Allyson Pool PA-C PCP - General Physician Belt Back Operator 09/26/16 02/28/21 [address] [place] [address] Erin ESCALANTE Curatorial Specialist 10/24/17 BORIS Desir [phone] documented as of this encounter
--- OUTSIDE RECORDS SUMMARY | 2022-02-24 15:48 | XMS_ITS | Encounter Summary ---
:1935 Author Organization [employer] Address [address] [place] [address] Care Team Providers Name Role Phone Allyson Pool PA-C Primary Care Provider Reason for Visit Procedure/Equipment (Routine) - Incomplete Specialty Diagnoses / Procedures Referred By Contact Refer red To Contact Procedures Provider, Foreign Images Foreign Image(S) MR Head [address] [place] [address] Referral ID Status Reason Start Date Expiration Date Visits V isits Requested Authorized [id number] Incomplete 12/16/2017 03/17/2019 1 1 Encounter Details Date Type Department Care Team Description 12/02/2017 Imaging [facility] PACS Provider, Foreign Images [address] [place] [address] [place] [address] Social History Tobacco Use Types Packs/Day Years [...] on filedocumented in this encounter Care Teams Nanotechnology Technician Relationship Specialty Start Date End Date Allyson Pool PA-C PCP - General Physician Control Clerk Repairs 09/26/16 02/28/[address] [place] [address] Erin ESCALANTE Pickers Material Handlers 10/24/17 BORIS [place] [phone] documented as of this encounter
--- OUTSIDE RECORDS SUMMARY | 2022-02-24 15:48 | XMS_ITS | Encounter Summary ---
:1935 Author Organization [employer] Address [address] [place] [address] Care Team Providers Name Role Phone Stephanie Pool PA-C Primary Care Provider Reason for Visit Reason Comments Refill triamterene-hydrochlorothiaz ricky (MAXZIDE-25) 37.5-25 MG tablet [Pharmacy Med Name: TRIAMTERENE 37.5MG/ HC TZ 25MG TABS] Encounter Details Date Type Department Care Team Description 10/06/2017 Refill [facility] Stephanie Pool PA-C Refill Medicine [address] [facility] (triamterene-hydrochlor [address] [place] [address] othiazide (MAXZIDE-25) [place] [address] 37.5-25 MG tablet [phone] [Pharmacy Med Name: TRIAMTERENE 37. 5MG/ HCTZ [...] K: 3.7 mEq/L on 07/09/2017 Powered by [employer], Reference: [id number], 10/06/2017 3:05:53 PM CDT, Pool: LIBRADO HERNANDEZ REFILL ([id number]) documented in this encounter Plan of Treatment Not on filedocumented as of this encounter Visit Diagnoses Diagnosis Essential hypertension (HRC) Unspecified essential hypertension documented in this encounter Care Teams Secretary Specialist Relationship Specialty Start Date End Date Stephanie Pool PA-C PCP - General Physician Accountant Tax 09/26/16 02/28/21 [address] [place] [address] documented as of this encounter
--- OUTSIDE RECORDS SUMMARY | 2022-02-24 15:48 | XMS_ITS | Encounter Summary ---
:1935 Author Organization [employer] Address [address] [place] [address] Care Team Providers Name Role Phone Allyson Pool PA-C Primary Care Provider Reason for Visit Reason Comments Hospital Discharge Follow-up TCU and is transitioning to home care and therapy Encounter Details Date Type Department Care Team Description 08/22/2017 Office Visit [place] [facility] Allyson Pool PA-C Hospital discharge follow-up (Primary Dx ); Medicine [address] [place] [address] Cervical myelopathy ([facility]); [address] [place], [place] Recurrent major depressive d isobettyeer, in partial remission ([facility]); [place] [address] Anxiety; [phone] (Wo rk) Dementia without behavioral disturbance, unspecified [...] Body Mass Index 35.46 07/08/2017 3:58 PM TELEGRAPHER AGENT documented in this encounter Patient Instructions Patient InstructionsEstrella Vann LPN - 08/22/2017 1:00 PM CDT Follow up with neurology Dr. Aldridge. Please call the Neurology dept. at [phone] to schedule your appointment. Decrease paxil to [...] this vaccine. The lozoya line number is [phone]. It is approximately $270 per shot if your insurance does not cover it. documented in this encounter Progress Notes Allyson Pool PA-C - 08/22/2017 1:00 PM CDT Internal Medicine [facility] - Allyson Pool PA-C Fidelia Vyas 81 y.o. Female : 1935 PN Date of Service: 08/22/2017 Chief Complaint: Hospital discharge follow-up and anxiety and depression, medication management Government Affairs Director Present: no HPI: Fidelia Vyas is a [...] type documented in this encounter Care Teams Brick And Tile Making Machine Operator Relationship Specialty Start Date End Date Allyson Pool PA-C PCP - General Physician Car Pusher 09/26/16 02/28/21 [address] [place] [address] documented as of this encounter
--- OUTSIDE RECORDS SUMMARY | 2022-02-24 15:48 | XMS_ITS | Encounter Summary ---
:1935 Author Organization [facility] Address [address] [place] [address] Care Team Providers Name Role Phone Allyson Pool PA-C Primary Care Provider Reason for Visit Reason Comments UPDATE Encounter Details Date Type Department Care Team Description 09/30/2017 Telephone Specialty Center 3931 Phuong Vogel APRN, UPDATE Neurosurgery GREENHOUSE GROWER 39[address] [facility] 3931 [place] [address] [place], [place] [address] (Wo rk) Social History Tobacco Use Types [...] up as previously scheduled. Phuong Vogel APRN, GREENHOUSE GROWER - 09/30/2017 4:11 PM CDT Attempted to leave message that todays cervical xrays look good. We will plan to see her back in 3 months with repeat imaging. Will ask nursing to reach out tomorrow and update with results. documented in this encounter Plan of Treatment Not on filedocumented as of this encounter Visit Diagnoses Not on filedocumented in this encounter Care Teams Building Components Designer Relationship Specialty Start Date End Date Allyson Pool PA-C PCP - General Physician Head Of Transport Logistics 09/26/16 02/28/21 [address] [place] [address] documented as of this encounter
--- OUTSIDE RECORDS SUMMARY | 2022-02-24 15:48 | XMS_ITS | Encounter Summary ---
:1935 Author Organization [employer] Address [address] [place] [address] Care Team Providers Name Role Phone Allyson Pool PA-C Primary Care Provider Reason for Visit Reason Comments LETTER NEEDED Encounter Details Date Type Department Care Team Description 11/12/2017 Telephone [facility] Allyson Pool PA-C LETTER NEEDED Medicine [address] [place] [address] [place], [place] [address] [place] [address] [phone] Social History Tobacco Use Types Packs/Day Years [...] form/letter are you requesting? Patient's Daughter states [facility] requesting more information from PCP, Asking if previous letter can be revised to include that the Patient was financially capable at time of diagnosis, PCP has to state if Patient is financially capable at this time. PCP ANGELINA Zhang has to have overseeing Do ctor's signature typed and signed to include credentials and letter dated. This letter/other is needed from: for [employer] How would you like to receive your completed letter/other? , Attn: Onel (Daughter) Additional comments (related to the above concern): Previous letter was dated 11/04/17, [employer] requesting MECHELLE. Is it okay to leave [...] on filedocumented in this encounter Care Teams Applications Engineer Manufacturing Relationship Specialty Start Date End Date Allyson Pool PA-C PCP - General Physician Manager Maritime 09/26/16 02/28/21 [address] [place] [address] Erin ESCALANTE Production Leader 10/24/17 BORIS Desir [phone] documented as of this encounter
--- OUTSIDE RECORDS SUMMARY | 2022-02-24 15:48 | XMS_ITS | Encounter Summary ---
:1935 Author Organization [facility] Address [address] [place] [address] Care Team Providers Name Role Phone Allyson Pool PA-C Primary Care Provider Reason for Visit Reason Comments UPDATE MRI Encounter Details Date Type Department Care Team Description 12/13/2017 Telephone [facility] Cancer Care Marlys Griffiths UPDATE (MRI) at [facility] , MBBS Oncology 3931 [facility] [address] [place] [address] [place] [address] [phone] Social History Tobacco Use Types Packs/Day Years [...] on filedocumented in this encounter Care Teams Motor Vehicle Compliance Analyst Relationship Specialty Start Date End Date Allyson Pool PA-C PCP - General Physician Process Eng 09/26/16 02/28/21 [address] [place] [address] Erin ESCALANTE Front Line Supervisor 10/24/17 BORIS Desir [phone] documented as of this encounter
--- OUTSIDE RECORDS SUMMARY | 2022-02-24 15:48 | XMS_ITS | Encounter Summary ---
:1935 Author Organization [employer] Address [address] [place] [address] Care Team Providers Name Role Phone Allyson Pool PA-C Primary Care Provider Encounter Details Date Type Department Care Team Description 11/25/2017 Notes/Orders [facility] Marlys Barboza [address] [place] [address] 3667 [facility] [place] S [phone] [facility] N [address] (Wo rk) Social History [...] on filedocumented in this encounter Care Teams Oceanographer Physical Relationship Specialty Start Date End Date Allyson Pool PA-C PCP - General Physician Research Methods Instructor 09/26/16 02/28/21 [address] [place] [address] Erin ESCALANTE Community Mental Health Worker 10/24/17 BORIS Desir [phone] Fatou Haile Community Mental Health Worker 06/03/18 mauri ESCALANTE Production Clerks Supervisor 05/28/19 documented as of this encounter
--- OUTSIDE RECORDS SUMMARY | 2022-02-24 15:48 | XMS_ITS | Encounter Summary ---
:1935 Author Organization [employer] Address [address] [place] [address] Care Team Providers Name Role Phone Allyson Pool PA-C Primary Care Provider Reason for Visit Reason Comments Orders Needed Encounter Details Date Type Department Care Team Description 08/22/2017 Telephone [facility] Allyson Pool PA-C Orders Needed Medicine [address] [facility] [address] [place], [place] [address] [place] [address] [phone] Social History Tobacco Use Types Packs/Day Years [...] I called and left a message with [facility] and directed it to Francisco Luis OT approving the verbal order listed below, per Allyson Pool PA-C. I instructed them to call [phone] if they have any questions or concerns. Allyson Pool PA-C - 08/22/2017 9:29 AM CDT Verbal order okayed to continue OT 2X/week for 3 weeks and 1X/week for 1 week. Allyson Pool PA-C 9:29 AM 08/22/2017 Helga Ramos LPN - 08/22/2017 9:18 AM CDT Clinician Action: New Order OT Clinician Next Step: Route to [facility] to follow up and Patient IS expecting a call back fromcare team Specific Request(s): 1. Jovany Luis/OT needs verbal orders for continued OT 2X/week for 3 weeks and 1X/week for 1 week. Please advise. documented in this encounter Plan of Treatment Not on filedocumented as of this encounter Visit Diagnoses Not on filedocumented in this encounter Care Teams Pl Sql Programmer Relationship Specialty Start Date End Date Allyson Pool PA-C PCP - General Physician Administration Specialist 09/26/16 02/28/[address] [place] [address] documented as of this encounter
--- OUTSIDE RECORDS SUMMARY | 2022-02-24 15:48 | XMS_ITS | Encounter Summary ---
:1935 Author Organization [email or web address] Address [address] [place] [address] Care Team Providers Name Role Phone Allyson Pool PA-C Primary Care Provider Reason for Visit Reason Comments Medication Problems Encounter Details Date Type Department Care Team Description 11/08/2017 Telephone [facility] Allyson Pool PA-C Medication Problems Medicine [address]692 [facility] [address] [place] [address] [phone] Social History Tobacco Use Types Packs/Day Years [...] filedocumented in this encounter Care Teams Manufacturing Project Engineer Relationship Specialty Start Date End Date Allyson Pool PA-C PCP - General Physician Etcher Apprentice Photoengraving 09/26/16 02/28/21 [address] [place] 8[address]857 Erin ESCALANTE Career Services Director 10/24/17 BORIS Desir [phone] documented as of this encounter
--- OUTSIDE RECORDS SUMMARY | 2022-02-24 15:48 | XMS_ITS | Encounter Summary ---
:1935 Author Organization [employer] Address [address] [place] [address] Care Team Providers Name Role Phone Allyson Pool PA-C Primary Care Provider Encounter Details Date Type Department Care Team Description 12/09/2017 Lab Visit [facility] Thyroid nodule [address] [place] [address] Social History Tobacco Use Types [...] - 12/09/2017 1:47 PM CDT Performed at [facility], [address] [place] [address] CLIA number [id number] Allyson Pool PA-C LAB_1 Performing Organization Address City/State/ZIP Code Phon e Number PN SOFT [address] [place] [address] documented in this encounter Visit Diagnoses Diagnosis Thyroid nodule (HRC) Nontoxic uninodular goiter documented in this encounter Care Teams Grid Operator Relationship Specialty Start Date End Date Allyson Pool PA-C PCP - General Physician Ledger Clerk 09/26/16 02/28/21 [address] [place] [address] Erin ESCALANTE In Classroom Tutor 10/24/17 BORIS Desir [phone] documented as of this encounter
--- OUTSIDE RECORDS SUMMARY | 2022-02-24 15:48 | XMS_ITS | Encounter Summary ---
:1935 Author Organization [facility] Address [address] [place] [address] Care Team Providers Name Role Phone Allyson Pool PA-C Primary Care Provider Reason for Referral Procedure/Equipment (Routine) - Incomplete Specialty Diagnoses / Procedures Referred By Contact Refer red To Contact Diagnoses S/P cervical spinal fusion Phuong Vogel APRN, Procedures XR Cervical Spine 2 Views INSTRUCTIONAL RESOURCE TEACHER 3931 [place], [place] [address] Referral ID Status Reason Start Date Expiration Date Visits V isits Requested Authorized [id number] Incomplete 01/02/2018 04/03/2019 1 1 Encounter Details Date Type Department Care Team Description 12/31/2017 Notes/Orders Specialty [facility] 3931 Stephanie Perez S /P cervical spinal Neurosurgery MICHELE Fink fusion (Primary Dx) 3931 [place] [address] Social History Tobacco Use Types [...] soft tissue swelling is seen. Phuong Vogel EFFICIENCY MINER BLASTING, INSTRUCTIONAL RESOURCE TEACHER RAD GD documented in this encounter Visit Diagnoses Diagnosis S/P cervical spinal fusion - Primary Arthrodesis status S/P cervical spinal fusion Arthrodesis status documented in this encounter Care Teams Freelance Interpreter/Translator Relationship Specialty Start Date End Date Allyson Pool PA-C PCP - General Physician Can Dragger 09/26/16 02/28/21 [address] [place] [address] Erin ESCALANTE Audio Tape Librarian 10/24/17 BORIS Desir [phone] documented as of this encounter
--- OUTSIDE RECORDS SUMMARY | 2022-02-24 15:48 | XMS_ITS | Encounter Summary ---
:1935 Author Organization [employer] Address [address] [place] [address] Care Team Providers Name Role Phone Allyson Pool PA-C Primary Care Provider Encounter Details Date Type Department Care Team Description 10/29/2017 Notes/Orders [facility] Marlys Barboza [address] [place] [address] 1611 [facility] S [phone] [facility] N [address] (Wo rk) Social History [...] on filedocumented in this encounter Care Teams Patent Agent Relationship Specialty Start Date End Date Allyson Pool PA-C PCP - General Physician Ip Litigation Associate 09/26/16 02/28/21 [address] [place] [address] Erin ESCALANTE Director Professional Services 10/24/17 BORIS Desir [phone] Fatou Haile Director Professional Services 06/03/18 mauri ESCALANTE Appliance Painter And Refinisher 05/28/19 documented as of this encounter
--- OUTSIDE RECORDS SUMMARY | 2022-02-24 15:48 | XMS_ITS | Encounter Summary ---
:1935 Author Organization [employer] Address [address] [place] [address] Care Team Providers Name Role Phone Stephanie Pool PA-C Primary Care Provider Reason for Visit Reason Comments Refill labetalol (TRANDATE) 100 MG tablet [Pharmacy Med Name: LABETALOL 100MG TABLETS] Encounter Details Date Type Department Care Team Description 11/28/2017 Refill [facility] Stephanie Pool PA-C Refill (labetalol Medicine [address] (TRANDATE) 100 MG [address] [place] [address] tablet [[place] [address] Name: LABETALOL 100MG [phone] TABLETS]) Social History Tobacco Use Types Packs/Day [...] POOL Ordering User: GISELLA PETERSON Interface, Out Opbeat Prov Query - 11/28/2017 3:27 AM CDT [...] 76 mm Hg on 11/07/2017 Powered by [email or web address], Reference: [id number], 11/28/2017 3:27:41 AM CDT, Pool: LIBRADO HERNANDEZ REFILL ([id number]) documented in this encounter Plan of Treatment Not on filedocumented as of this encounter Visit Diagnoses Diagnosis Essential hypertension (HRC) Unspecified essential hypertension documented in this encounter Care Teams Chef Concierge Relationship Specialty Start Date End Date Stephanie Pool PA-C PCP - General Physician Line Patroller 09/26/16 02/28/21 [address] [place] [address] Erin ESCALANTE Sql Programmer Analyst 10/24/17 BORIS Desir [phone] documented as of this encounter
--- OUTSIDE RECORDS SUMMARY | 2022-02-24 15:48 | XMS_ITS | Encounter Summary ---
:1935 Author Organization [facility] Address [address] [place] [address] Care Team Providers Name Role Phone Allyson Pool PA-C Primary Care Provider Reason for Visit Reason Comments Follow-up Encounter Details Date Type Department Care Team Description 10/08/2017 Office Visit [facility] Cancer Clifton Barboza noclonal gammopathy Care at [facility] MILADIS Farrell i present on serum [facility] [address] [place] [address] protein [address] [place], [place] [address] [place] [address] (Primary Dx) [phone] Social History Tobacco Use Types Packs/Day Years [...] Body Mass Index 35.98 07/08/2017 3:58 PM TESTER/LIFT TRUCKER documented in this encounter Progress Notes Marlys Barboza MBBS - 10/08/2017 12:00 PM CDT NAME: FIDELIA LUNDBERG MR#: [id number] CSN: [id number] AUTHENTICATING CLINICIAN: MILADIS Dennis CONFIRM #: [id number] LOC: 3704 CLINIC PROGRESS NOTE DATE OF VISIT: 10/08/2017 : 1935 Diagnosis: IGG kappa MGUS History: Fidelia is a 81-year-old with history of hypertension, coronary artery disease, with cardiac arrest and VFib in 2002, first TX reportedly at age 44. She comes today [...] in 6 months CA:MEDQ C: CONFIRM #: [id number] documented in this encounter Plan of Treatment Not on filedocumented as of this encounter Visit Diagnoses Diagnosis Monoclonal gammopathy present on serum p rotein electrophoresis (HRC) - Primary documented in this encounter Care Teams Rope Coiling Machine Operator Relationship Specialty Start Date End Date Allyson Pool PA-C PCP - General Physician Optical Lens Manufacturing Tech 09/26/16 02/28/[address] [place] [address] documented as of this encounter
--- OUTSIDE RECORDS SUMMARY | 2022-02-24 15:48 | XMS_ITS | Encounter Summary ---
:1935 Author Organization [employer] Address [address] [place] [address] Care Team Providers Name Role Phone Allyson Pool PA-C Primary Care Provider Reason for Visit Reason Comments LETTER NEEDED Encounter Details Date Type Department Care Team Description 11/27/2017 Telephone [facility] Allyson Pool PA-C LETTER NEEDED Medicine [address] [facility] [address] [place], [place] [address] [place] [address] [phone] Social History Tobacco Use Types Packs/Day Years [...] f/up on a letter request for a [employer]. Please see previous notes. Caller states that she has not received the fax. She'd like to have that letter re faxed to her at [phone] fax- Attn: Onel Is it okay to leave a detailed message on your voicemail? Yes (Advise caller that the PN call back number will end with [phone] or unknown) Please route to: Appropriate pool per call routing grid documented in this encounter Plan of Treatment Not on filedocumented as of this encounter Visit Diagnoses Not on filedocumented in this encounter Care Teams Cutting Machine Operator Relationship Specialty Start Date End Date Allyson Pool PA-C PCP - General Physician Ornamental Bronze Worker 09/26/16 02/28/[address] [place] [address] Erin ESCALANTE Mason Foreman/Superintendant 10/24/17 BORIS Desir [phone] documented as of this encounter
--- OUTSIDE RECORDS SUMMARY | 2022-02-24 15:48 | XMS_ITS | Encounter Summary ---
:1935 Author Organization [facility] Address [address], [place] [address] Care Team Providers Name Role Phone Allyson Pool PA-C Primary Care Provider Reason for Visit Reason Comments Refill Encounter Details Date Type Department Care Team Description 11/03/2017 Refill [facility] 3931 Norberto Aldridge MD Refill Neurology 3931 [facility] E[address] 3931 [place] [phone] (Wo rk) Social History Tobacco Use Types [...] on filedocumented in this encounter Care Teams Home Care Coordinator Relationship Specialty Start Date End Date Allyson Pool PA-C PCP - General Physician Armorer Technician 09/26/16 02/28/[address] [place] [address] Erin ESCALANTE Sales Leader 10/24/17 BORIS Desir [phone] documented as of this encounter
--- OUTSIDE RECORDS SUMMARY | 2022-02-24 15:48 | XMS_ITS | Encounter Summary ---
:1935 Author Organization [employer] Address [address] [place] [address] [place] [address] Care Team Providers Name Role Phone Allyson Pool PA-C Primary Care Provider Reason for Visit Reason Comments Follow-up Encounter Details Date Type Department Care Team Description 08/20/2017 Office Visit Specialty Center 3931 Phuong Vogel, S/P cervical spinal fusion (Primary Dx); Neurosurgery ZAHEER KUHN Cervical myelopathy (HRC) 3931 [facility]. 3931 [facility] [place] [id number] (Wo rk) Social History Tobacco Use Types [...] for your next appointment and go to [facility] in [place] for xrays. Please call Neurosurgery Triage Line with any questions or concerns at [phone]. Activity: Starting at 10 pounds increase to [...] 2:39 PM CDT NAME: FIDELIA LUNDBERG MR#: [id number] CSN: [id number] AUTHENTICATING CLINICIAN: CARLO Carrasquillo CONFIRM #: [id number] LOC: 262 CLINIC PROGRESS NOTE DATE OF [...] Focus on low impact cardiovascular activity and java web developer weights with higher repetition when lifting them. 2. Return to clinic in 6 weeks with repeat AP and lateral cervical films, or sooner if needed. Total time spent 30 minutes, with 25 minutes spent in counseling. JL:MEDQ C: CONFIRM #: [id number] Phuong Vogel APRN, CNP - 08/20/2017 2:00 PM CDT Neurosurgery This note has been dictated. Phuong Vogel APRN, CNP,CNRN documented in this encounter Plan of Treatment Not on filedocumented as of this encounter Visit Diagnoses Diagnosis S/P cervical spinal fusion - Primary Arthrodesis status Cervical myelopathy (HRC) Cervical spondylosis with myelopathy documented in this encounter Care Teams Route Delivery Supervisor Relationship Specialty Start Date End Date Allyson Pool PA-C PCP - General Physician Medical Terminologist 09/26/16 02/28/21 [address] [place] [address] documented as of this encounter
--- OUTSIDE RECORDS SUMMARY | 2022-02-24 15:48 | XMS_ITS | Encounter Summary ---
:1935 Author Organization [employer] Address [address], [place] [address] Care Team Providers Name Role Phone Allyson Pool PA-C Primary Care Provider Reason for Referral Procedure/Equipment (Routine) - Incomplete Specialty Diagnoses / Procedures Referred By Contact Refer red To Contact Diagnoses MGUS (monoclonal gammopathy of unknown significance) (HRC) Marlys Barboza Procedures NM PET/CT Skull Base To Mid Thigh MILADIS Moore 3931 [place], [place] [address] Referral ID Status Reason Start Date Expiration Date Visits V isits Requested Authorized [id number] Incomplete 10/22/2017 01/21/2019 6 6 Reason for Visit Procedure/Equipment (Routine) - Incomplete Specialty Diagnoses / Procedures Referred By Contact Refer red To Contact Diagnoses MGUS (monoclonal gammopathy of unknown significance) (HRC) Marlys Barboza Procedures NM PET/CT Skull Base To Mid Thigh MILADIS Moore 3931 [place], [place] [address] Referral ID Status Reason Start Date Expiration Date Visits V isits Requested Authorized [id number] Incomplete 10/22/2017 01/21/2019 6 6 Encounter Details Date Type Department Care Team Description 10/25/2017 Hospital Encounter Buddhist Kun Luna, MGUS (monoclonal Medicine MILADIS Guerrero gammopathy of [address] [facility] [address] significance) [facility] [address] [phone] Social History Tobacco Use Types Packs/Day Years [...] of the calvarium is not included in fzpbk-gj-pyik and thus the calvarial lesions noted on [...] of the calvarium is not included in kgihb-al-eviz. Mild hypermetabolic activity at the right lob [...] of the calvarium is not included in wjwjh-hx-wdjh and thus the calvarial lesions noted on brain MRI are not evaluated on this exam. Marlys [facility] NM BGS No Charge (10/25/2017 11:34 AM CDT) P athologist Signature Bedside Blood 80 mg/dL PN SOFT Glucose Test Comment: Performed at [address] [place] [address] Specimen Anatomical Collection Method Collection Time Receive d Time (Source) Location / / Volume Laterality 10/25/2017 11:34 10/25/2017 AM CDT 11:41 AM CDT Marlys Teresa [facility]_1 Performing Organization Address City/State/ZIP Code Phon e Number PN SOFT [address] [place] [address] documented in this encounter Visit Diagnoses Diagnosis [...] Radiology documented in this encounter Care Teams Email Engineer Relationship Specialty Start Date End Date Allyson Pool PA-C PCP - General Physician Angiography Nurse 09/26/16 02/28/21 [address] [place] [address] Erin ESCALANTE Fireworks Assembly Supervisor 10/24/17 BORIS Desir [phone] documented as of this encounter
--- OUTSIDE RECORDS SUMMARY | 2022-02-24 15:48 | XMS_ITS | Encounter Summary ---
:1935 Author Organization [employer] Address [address] [place] [address] Care Team Providers Name Role Phone Allyson Pool PA-C Primary Care Provider Reason for Visit Reason Comments FOLLOW-UP, TEST RESULTS Encounter Details Date Type Department Care Team Description 11/01/2017 Telephone [facility] [facility] Allyson Pool PA-C FOLLOW-UP, TEST Medicine [address] [facility] RESULTS [address] [place] [address] [place] [address] [phone] Social History Tobacco Use Types Packs/Day Years [...] you like to receive your completed letter/other? supply chain intern at the clinic Additional comments (related to [...] filedocumented in this encounter Care Teams Supervisor Train Operations Relationship Specialty Start Date End Date Allyson Pool PA-C PCP - General Physician Wheel Borer 09/26/16 02/28/[address] [place] [address] Erin ESCALANTE Piano Teacher 10/24/17 BORIS Desir [phone] documented as of this encounter
--- OUTSIDE RECORDS SUMMARY | 2022-02-24 15:48 | XMS_ITS | Encounter Summary ---
:1935 Author Organization [facility] Address [address] [place] [address] [place] [address] Care Team Providers Name Role Phone Allyson Pool PA-C Primary Care Provider Reason for Visit Reason Comments Appt. Needed Encounter Details Date Type Department Care Team Description 09/26/2017 Telephone [facility] Cancer Care Marlys Griffiths Appt. Needed at [facility] [address] [place] [address] [phone] Social History Tobacco Use Types Packs/Day Years [...] on filedocumented in this encounter Care Teams Continuous Wave Operator Relationship Specialty Start Date End Date Allyson Pool PA-C PCP - General Physician Trading Analyst 09/26/16 02/28/21 [address] [place] [address] documented as of this encounter
--- OUTSIDE RECORDS SUMMARY | 2022-02-24 15:49 | XMS_ITS | Encounter Summary ---
:1935 Author Organization [employer] Address [address] [place] [address] Care Team Providers Name Role Phone Allyson Pool PA-C Primary Care Provider Reason for Visit Reason Comments Future Appointments Encounter Details Date Type Department Care Team Description 07/22/2017 Telephone [facility] Allyson Pool PA-C Future Appointments [facility] [address] [facility] [address] [place] [address] [phone] Social History Tobacco Use Types Packs/Day Years [...] and Fidelia is recovering nicely at the [place] [facility] unit in [place]. [facility] explained that Medicare will cover approximately 20-21 days of TCU for Fidelia so they have not received a discharge date. I explained that I was very glad to hear they are both doing good and just wanted to let himknow that when they are told a discharge date to call the clinic at [phone] to set up a follow-up appointment with [...] on filedocumented in this encounter Care Teams Contract Clerk Automobile Relationship Specialty Start Date End Date Allyson Pool PA-C PCP - General Physician Municipal Maintenance Worker 09/26/16 02/28/21 [address] [place] [address] documented as of this encounter
--- OUTSIDE RECORDS SUMMARY | 2022-02-24 15:49 | XMS_ITS | Encounter Summary ---
:1935 Author Organization [email or web address] Address [address] [address] Care Team Providers Name Role Phone Allyson Pool PA-C Primary Care Provider Reason for Referral Procedure/Equipment (Routine) - Incomplete Specialty Diagnoses / Procedures Referred By Contact Refer red To Contact Diagnoses Cervical myelopathy (HRC) Cervical stenosis of spine Warner Machado PA-C Procedures [place] Collar 2 piece([id number]) [address] [facility] [place] [address] [place], [place] [address] Referral ID Status Reason Start Date Expiration Date Visits V isits Requested Authorized [id number] Incomplete 07/05/2017 10/04/2018 1 1 RINTENDENT COMMUNICATIONS Reason for Visit Reason Comments CONSULT Consult/Transfer Care (Routine) - Closed Specialty Diagnoses / Procedures Referred By Contact Refer red To Contact Diagnoses Abnormal MRI Jose Aldridge MD [address] [facility] [address] [place], [place] [address] Referral ID Status Reason Start Date Expiration Date Visits Requ ested Visits Authorized [id number] Closed 07/04/2017 10/03/2018 1 1 Encounter Details Date Type Department Care Team Description 07/05/2017 Office Visit [facility] Warner Machado Ce rvical myelopathy (HRC) (Primary Dx); Neurosurgery GOLDY Cervical stenosis of spine [address] [facility] [address] [place] [address] [place] [address] [phone] (Wo rk) Social History Tobacco Use Types [...] Comments Blood Pressure 131/69 07/05/2017 2:38 PM SUPERINTENDENT COMMUNICATIONS Pulse 62 07/05/2017 2:38 PM SUPERINTENDENT COMMUNICATIONS Temperature - - Respiratory Rate 17 07/05/2017 2:38 PM SUPERINTENDENT COMMUNICATIONS Oxygen Saturation - - Inhaled Oxygen Concentration - - Weight - - Height - - Body Mass Index - - documented in this encounter Patient Instructions Patient InstructionsBeDestin morgan RN, BSN - 07/05/2017 2:30 PM CST You will be contacted by the construction scheduler Saturday07/08/17 with further details about your surgery. Neurosurgery scheduling [phone] RINTENDENT COMMUNICATIONS documented in this encounter Progress Notes Warner Machado PA-C - 07/05/2017 4:36 PM CST NAME: FIDELIA LUNDBERG MR#: [id number] CSN: [id number] AUTHENTICATING CLINICIAN: ANGELINA Rubio CONFIRM #: [id number] LOC: 262 CLINIC CONSULTATION DATE OF CONSULTATION: [...] minutes was spent with the patient today. [facility] [place] [place]: CONFIRM #: [id number] RINTENDENT COMMUNICATIONS Lynda Anderson RN - 07/05/2017 2:30 PM CST Patient Education Topic: Procedure/Prep Learner(s): Patient and Family Knowledge Level: Basic Readiness to Learn: Ready Method: Verbal Explanation and Written Material Outcome: Able to verbalize instructions Barriers to Learning: Disease state(alzheimers) RINTENDENT COMMUNICATIONS Warner Machado PA-C - 07/05/2017 2:30 PM CST This office note has been dictated. RINTENDENT COMMUNICATIONS documented in this encounter Plan of Treatment Not on filedocumented as of this encounter Visit Diagnoses Diagnosis Cervical myelopathy (HRC) - Primary Cervical spondylosis with myelopathy Cervical stenosis of spine Spinal stenosis in cervical region documented in this encounter Care Teams Operators School Manager Relationship Specialty Start Date End Date Allyson Pool PA-C PCP - General Physician 3Rd Grade Teacher 09/26/16 02/28/21 [address] [place] [id number] documented as of this encounter
--- OUTSIDE RECORDS SUMMARY | 2022-02-24 15:49 | XMS_ITS | Encounter Summary ---
:1935 Author Organization [employer] Address [address] [place] [address] Care Team Providers Name Role Phone Allyson Pool PA-C Primary Care Provider Reason for Referral Procedure/Equipment (Routine) - Closed Specialty Diagnoses / Procedures Referred By Contact Refer red To Contact Diagnoses Left arm weakness Left hand weakness Jose Aldridge MD Procedures NEURO--EMG ELECTRICAL NERVE CONDUCTION STUDY [address] [facility] [address] [place] [address] Referral ID Status Reason Start Date Expiration Date Visits Requ ested Visits Authorized [id number] Closed 05/31/2017 08/30/2018 1 1 ERSHIP ADMINISTRATOR Procedure/Equipment (Routine) - Incomplete Specialty Diagnoses / Procedures Referred By Contact Refer red To Contact Diagnoses Left arm weakness Left hand weakness Jose Aldridge MD Procedures MR Cervical Spine W/WO IV Cont [address] [facility] [address] [place] [address] Referral ID Status Reason Start Date Expiration Date Visits V isits Requested Authorized [id number] Incomplete 05/31/2017 08/30/2018 1 1 ERSHIP ADMINISTRATOR Reason for Visit Reason Comments Follow-up Consult/Transfer Care (Routine) - Closed Specialty Diagnoses / Procedures Referred By Contact Refer red To Contact Diagnoses Memory loss Sensory neuronopathy Allyson Pool, [place] [address] [place] [id number] Referral ID Status Reason Start Date Expiration Date Visits Requ ested Visits Authorized [id number] Closed 05/15/2017 08/14/2018 1 1 Encounter Details Date Type Department Care Team Description 05/31/2017 Office Visit [place] 1601 Jose Aldridge, Left arm weakness (Primary Dx); Neurology MD Left hand weakness; [address] 3931 [facility] [place] [address] [place] [place] [address] [...] Comments Blood Pressure 104/60 05/31/2017 1:04 PM MEMBERSHIP ADMINISTRATOR Pulse 60 05/31/2017 1:04 PM MEMBERSHIP ADMINISTRATOR Temperature - - Respiratory Rate 12 05/31/2017 1:04 PM MEMBERSHIP ADMINISTRATOR Oxygen Saturation - - Inhaled Oxygen Concentration [...] in at 12:30 PM with your medication, patrol driver and ID/insurance card. This is scheduled at the [facility] EM[facility] (nerve function test)- Jun 26 at 12:30 PM. This is on the 5th floor of the [facility] connected to [facility]. Park in the [place] parking ramp. We will call you with the results. ERSHIP ADMINISTRATOR documented in this encounter Progress Notes Jose Aldridge MD - 05/31/2017 12:00 PM CST NAME: WAQAR LUNDBERG MR#: [id number] CSN: [id number] AUTHENTICATING CLINICIAN: Jose Aldridge MD CONFIRM #: [id number] LOC: 223 CLINIC PROGRESS NOTE DATE OF [...] extensionwas 1 to 2 out of 5. Advertising Solicitor was 4 to 4+ out of 5. [...] recommendations and answering questions. CC: ANGELINA WOODS [address] [place] [address] BASILIA:RANDI C: CONFIRM #: [id number] ERSHIP ADMINISTRATOR documented in this encounter Plan of Treatment Not on filedocumented as of this encounter Results MR Cervical Spine W/WO IV Cont (07/04/2017 1:29 PM MEMBERSHIP ADMINISTRATOR) Anatomical Region Laterality Modality Spine, C-Spine, Neck, Vascular Magnetic Resonance Specimen (Source) Anatomical Collection Method Collection Time Re ceived Time Location / / Volume Laterality 07/04/2017 12:50 PM MEMBERSHIP ADMINISTRATOR Impressions 07/04/2017 2:08 PM MEMBERSHIP ADMINISTRATOR IMPRESSION: ?? 1. Severe central spinal stenosis [...] evaluation with ultrasound. Narrative 07/04/2017 2:08 PM MEMBERSHIP ADMINISTRATOR INDICATION: LUE diffuse weakness ?? TECHNIQUE: ??MRI [...] (generalized) documented in this encounter Care Teams High School Guidance Counselor Relationship Specialty Start Date End Date Allyson Pool PA-C PCP - General Physician Software Systems Analyst 09/26/16 02/28/21 [id number] [place] [id number] documented as of this encounter
--- OUTSIDE RECORDS SUMMARY | 2022-02-24 15:49 | XMS_ITS | Encounter Summary ---
:1935 Author Organization [facility] Address [address] [place] [address] Care Team Providers Name Role Phone Allyson Pool PA-C Primary Care Provider Reason for Referral Consult/Transfer Care (Routine) - Closed Specialty Diagnoses / Procedures Referred By Contact Refer red To Contact Diagnoses Abnormal MRI Jose Aldridge MD 3933 [facility] [address] [place], [place] [address] Referral ID Status Reason Start Date Expiration Date Visits Requ ested Visits Authorized [id number] Closed 07/04/2017 10/03/2018 1 1 Scheduling Instructions Your provider has recommended an appoint ment with Sana Louis. You may call [phone] to schedule your appoi ntment. If you do not schedule an appointment within the next 1 to 3 business days, we will call you to help arrange your appointment. We suggest you call your [employer] insurance company about your coverage and benefits for this appointment. HEN CHEF Reason for Visit Reason Comments RESULTS, TEST Encounter Details Date Type Department Care Team Description 07/04/2017 Telephone Specialty Center 3931 Soraya Maynard RN RESULTS, TEST Neurology 3931 [place], [place] [address] Social History Tobacco Use Types Packs/Day Years [...] pm with ANGELINA Hairston. Mayo expressed understanding. HEN CHEF documented in this encounter Plan of Treatment Scheduled Referrals Name Type Priority Associated Diagnoses Order S chedule Spine-Surgical Referral Routine Abnormal MRI Ordered: 06/14 Consult-Adults documented as of this encounter Visit Diagnoses Diagnosis Abnormal MRI - Primary Other nonspecific (abnormal) findings on radiological and other examinations of body structure documented in this encounter Care Teams Supervisor Cartography Relationship Specialty Start Date End Date Allyson Pool PA-C PCP - General Physician Fighting Vehicle Systems Maintainer 09/26/16 02/28/21 [address] [place] [address] documented as of this encounter
--- OUTSIDE RECORDS SUMMARY | 2022-02-24 15:49 | XMS_ITS | Encounter Summary ---
:1935 Author Organization [employer] Address [address] [place] [address] Care Team Providers Name Role Phone Allyson Pool PA-C Primary Care Provider Reason for Visit Reason Comments Paperwork Encounter Details Date Type Department Care Team Description 07/02/2017 Telephone Specialty Center 393 1 Neurology Doreen Escobar, RN Paperwork 3931 [place], [place] [address] Social History Tobacco Use Types Packs/Day Years Used Date Smoking Tobacco: Never Smokeless Tobacco: Never Alcohol Use Standard Drinks/Week Comments Yes 0 (1 standard drink = 0.6 oz pure alcoho l) rare occasions Sex Assigned at Date Recorded Not on file documented as of this encounter Nursing Notes Doreen Escobar RN - 07/02/2017 2:42 PM CST Received paperwork from [facility] for Allyson Macdonald. Confirmed with patient that this is her daughter who has been taking time off of work to help take care of her and take her to appointments. Asked patient to have daughter call us (patient did not have her number available) so we can discuss amount of time needed so we can complete these forms. NE ENGINEERING CONSULTANT documented in this encounter Plan of Treatment Not on filedocumented as of this encounter Visit Diagnoses Not on filedocumented in this encounter Care Teams Digital Asset Specialist Relationship Specialty Start Date End Date Allyson Pool PA-C PCP - General Physician Pigskin Trimmer 09/26/16 02/28/[address] [place] [address] documented as of this encounter
--- OUTSIDE RECORDS SUMMARY | 2022-02-24 15:49 | XMS_ITS | Encounter Summary ---
:1935 Author Organization [employer] Address [address] [place] [address] Care Team Providers Name Role Phone Allyson Pool PA-C Primary Care Provider Encounter Details Date Type Department Care Team Description 05/24/2017 Lab Visit [facility] Vitamin D deficiency [address] [place] [address] Social History Tobacco Use Types [...] deficiency R esults for this 25-HYDROXY, TOTAL YARN CONDITIONER procedure are in the results section. documented in this encounter Results Vitamin D 25-Hydroxy, Total (05/24/2017 2:23 PM YARN CONDITIONER) P athologist Signature Vitamin D 25 Oh 28 20 - 80 PN SOFT ng/mL Comment: Deficiency = <20 Adequate ??= 20-29 Preferred = 30-50 Uncertain safety = 51-80 High = >80 Specimen Anatomical Collection Method Collection Time Receive d Time (Source) Location / / Volume Laterality 05/24/2017 2:23 PM 8 6:12 YARN CONDITIONER PM YARN CONDITIONER Narrative PN SOFT - 05/24/2017 7:32 PM YARN CONDITIONER Performed at [facility], [address] [place] [address] CLIA number [id number] Allyson Pool PA-C LAB_1 Performing Organization Address City/State/ZIP Code Phon e Number PN SOFT [address] [place] [address] documented in this encounter Visit Diagnoses Diagnosis Vitamin D deficiency (HRC) Unspecified vitamin D deficiency documented in this encounter Care Teams Director Of Nuclear Medicine Relationship Specialty Start Date End Date Allyson Pool PA-C PCP - General Physician Retail Property Manager 09/26/16 02/28/21 [address] [place] [id number] documented as of this encounter
--- OUTSIDE RECORDS SUMMARY | 2022-02-24 15:49 | XMS_ITS | Encounter Summary ---
:1935 Author Organization [employer] Address [address] [address] Care Team Providers Name Role Phone Allyson Pool PA-C Primary Care Provider Reason for Visit Reason Comments UPDATE Encounter Details Date Type Department Care Team Description 06/17/2017 Telephone Specialty Center 393 1 Neurology Nany Newman RN UPDATE 3931 [place], [place] [address] Social History Tobacco Use Types Packs/Day Years Used Date Smoking Tobacco: Never Smokeless Tobacco: Never Alcohol Use Standard Drinks/Week Comments Yes 0 (1 standard drink = 0.6 oz pure alcoho l) rare occasions Sex Assigned at Date Recorded Not on file documented as of this encounter Nursing Notes Nany Newman RN - 06/17/2017 10:15 AM CST Pt's nurse, Taylor from [facility], called to report that she fell [...] falls.Unable to LM as voicemail is full. RER SYRUP MACHINE documented in this encounter Plan of Treatment Not on filedocumented as of this encounter Visit Diagnoses Not on filedocumented in this encounter Care Teams Director Of Early Childhood Education Relationship Specialty Start Date End Date Allyson Pool PA-C PCP - General Physician Hospice Care Transitions Coordinator 09/26/16 02/28/21 [address] [place] [id number] documented as of this encounter
--- OUTSIDE RECORDS SUMMARY | 2022-02-24 15:49 | XMS_ITS | Encounter Summary ---
:1935 Author Organization [employer] Address [address] [place] [address] Care Team Providers Name Role Phone Allyson Pool PA-C Primary Care Provider Reason for Visit Reason Comments Lab Questions Encounter Details Date Type Department Care Team Description 05/29/2017 Telephone [facility] Dave Thorpe MD Lab Questions [address] [address] [place] [address] [phone] Social History Tobacco Use Types Packs/Day Years [...] have to do it earlier. Please advise. RIMENTAL PREFLIGHT MECHANIC documented in this encounter Plan of Treatment Not on filedocumented as of this encounter Visit Diagnoses Not on filedocumented in this encounter Care Teams Auto Body Repair Teacher Relationship Specialty Start Date End Date Allyson Pool PA-C PCP - General Physician Head Neck Surgeon 09/26/16 02/28/[address] [place] [id number] documented as of this encounter
--- OUTSIDE RECORDS SUMMARY | 2022-02-24 15:49 | XMS_ITS | Encounter Summary ---
:1935 Author Organization [employer] Address [address] [place] [address] Care Team Providers Name Role Phone Allyson Pool PA-C Primary Care Provider Reason for Referral (Routine) - Incomplete Specialty Diagnoses / Procedures Referred By Contact Refer red To Contact Diagnoses Cervical myelopathy (HRC) Muscle weakness (generalized) Numbness Stenosis, cervical spine Phuong Vogel, SINGLE STAYER OPERATOR, Procedures Case Request OR - Neurosurgery: C3-4;C4-5 anterior cervical discectomy and fusion MANAGER CUSTOM [address] [place] [address] [place], [place] [address] Referral ID Status Reason Start Date Expiration Date Visits V isits Requested Authorized [id number] Incomplete 07/08/2017 10/07/2018 1 1 ING PIN ADJUSTER Encounter Details Date Type Department Care Team Description 07/08/2017 Notes/Orders Specialty Center Phuong Hernandez, Cervical myelopathy (HRC) (Primary Dx); Neurosurgery SINGLE STAYER OPERATOR, MANAGER CUSTOM Muscle weakness (generalized); [facility] [place] [address] [place], [place] [address]susy Fontaine mbness; S. [place], [place] [address] [phone] (Wo rk) Social History Tobacco Use Types [...] region documented in this encounter Care Teams House Wirer Helper Relationship Specialty Start Date End Date Allyson Pool PA-C PCP - General Physician Director Quality Assurance 09/26/16 02/28/21 [address] [place] [address] documented as of this encounter
--- OUTSIDE RECORDS SUMMARY | 2022-02-24 15:49 | XMS_ITS | Encounter Summary ---
:1935 Author Organization [employer] Address [address] [place] [address] Care Team Providers Name Role Phone Allyson Pool PA-C Primary Care Provider Reason for Visit Reason Comments Hematuria Encounter Details Date Type Department Care Team Description 05/29/2017 Office Visit [place] [facility] Jovany Thorpe Gr oss hematuria Medicine MD (Primary Dx) [address] [facility] [address] [place] [address] [place], [place] [phone] [address] (Wo rk) Social History Tobacco Use Types [...] Comments Blood Pressure 122/60 05/29/2017 2:27 PM MANAGER FILM Pulse 68 05/29/2017 2:27 PM MANAGER FILM Temperature 36.6 ??C (97.8 ??F) 05/29/2017 2:27 PM MANAGER FILM Respiratory Rate - - Oxygen Saturation - [...] that) 60 Tab 5 ??? ergocalciferol (DRISDOL) 17894 UNITS capsule Take 1 Cap by mouth [...] was completely clear. Recommend continued close monitoring. GER FILM documented in this encounter Plan of Treatment Not on filedocumented as of this encounter Results Urinalysis Routine, Micro/Culture if Pos (05/29/2017 2:21 PM MANAGER FILM) [facility] Method Time Signature Urine Type URINE:clean PN [...] U Specific 1.025 1.005 - PN SOFT [place] 1.030 Urobilinogen Negative Negative PN SOFT Urine Eu/dL Specimen Anatomical Collection Method Collection Time Receive d Time (Source) Location / / Volume Laterality 05/29/2017 2:21 PM 8 2:21 MANAGER FILM PM MANAGER FILM Narrative PN SOFT - 05/29/2017 2:24 PM MANAGER FILM Performed at [facility], [address] [facility], [place] [address] CLIA number [id number] Jovany Thorpe MD LAB_1 Performing Organization Address City/State/ZIP Code Phon e Number PN SOFT [address] [place] [address] documented in this encounter Visit Diagnoses Diagnosis Gross hematuria - Primary Gross hematuria documented in this encounter Care Teams Dry House Wheeler Relationship Specialty Start Date End Date Allyson Pool PA-C PCP - General Physician Escrow Secretary 09/26/16 02/28/21 [address] [place] [address] documented as of this encounter
--- OUTSIDE RECORDS SUMMARY | 2022-02-24 15:49 | XMS_ITS | Encounter Summary ---
:1935 Author Organization [employer] Address [address] [place] [address] Care Team Providers Name Role Phone Allyson Pool PA-C Primary Care Provider Reason for Visit Procedure/Equipment (Routine) - Incomplete Specialty Diagnoses / Procedures Referred By Contact Refer red To Contact Diagnoses Left arm weakness Left hand weakness Jose Aldridge MD Procedures MR Cervical Spine W/WO IV Cont [address] [facility] [address] [place] [address] Referral ID Status Reason Start Date Expiration Date Visits V isits Requested Authorized [id number] Incomplete 05/31/2017 08/30/2018 1 1 Encounter Details Date Type Department Care Team Description 07/04/2017 Imaging [place] [facility] MRI Jose Aldridge MD Left arm weakness; [address] [place] [address] [address] [place] [address] (Wo rk) Social History Tobacco [...] akness Results for this W/WO IV CONT BEAUTY COUNSELOR Left hand weakness procedure are in the results section. documented in this encounter Results MR Cervical Spine W/WO IV Cont (07/04/2017 1:29 PM BEAUTY COUNSELOR) Anatomical Region Laterality Modality Spine, C-Spine, Neck, Vascular Magnetic Resonance Specimen (Source) Anatomical Collection Method Collection Time Re ceived Time Location / / Volume Laterality 07/04/2017 12:50 PM BEAUTY COUNSELOR Impressions 07/04/2017 2:08 PM BEAUTY COUNSELOR IMPRESSION: ?? 1. Severe central spinal stenosis [...] evaluation with ultrasound. Narrative 07/04/2017 2:08 PM BEAUTY COUNSELOR INDICATION: LUE diffuse weakness ?? TECHNIQUE: ??MRI [...] (GADAVIST) 1 MMOL/ML Given 07/04/2017 1:15 PM BEAUTY COUNSELOR 10 mL injection 10 mL 10 mL, Intravenous, ONCE, On Jessica 07/04/17 at 1315, For 1 dose sodium chloride 0.9% injection 20 mL Given 07/04/2017 1:15 PM BEAUTY COUNSELOR 20 mL 20 mL, Intravenous, ONCE, On Jessica 07/04/17 at 1315, For 1 dose documented in this encounter Care Teams Valve And Regulator Repairer Relationship Specialty Start Date End Date Allyson Pool PA-C PCP - General Physician Stained Glass Glazier Helper 09/26/16 02/28/21 [address] [place] [id number] documented as of this encounter
--- OUTSIDE RECORDS SUMMARY | 2022-02-24 15:49 | XMS_ITS | Encounter Summary ---
:1935 Author Organization [employer] Address [address] [place] [address] Care Team Providers Name Role Phone Allyson Pool PA-C Primary Care Provider Encounter Details Date Type Department Care Team Description 05/29/2017 Lab Visit [facility] Gross hematuria [address] [place] [address] Social History Tobacco Use Types [...] hematuria Results for this MICRO/CULTURE IF POS COSMETOLOGY EDUCATOR procedu re are in the results section. documented in this encounter Results Urinalysis Routine, Micro/Culture if Pos (05/29/2017 2:21 PM COSMETOLOGY EDUCATOR) [facility] Method Time Signature Urine Type URINE:clean PN [...] U Specific 1.025 1.005 - PN SOFT [place] 1.030 Urobilinogen Negative Negative PN SOFT Urine Eu/dL Specimen Anatomical Collection Method Collection Time Receive d Time (Source) Location / / Volume Laterality 05/29/2017 2:21 PM 8 2:21 COSMETOLOGY EDUCATOR PM COSMETOLOGY EDUCATOR Narrative PN SOFT - 05/29/2017 2:24 PM COSMETOLOGY EDUCATOR Performed at [facility], [address] [facility], [place] [address] CLIA number [id number] Jovany Thorpe MD LAB_1 Performing Organization Address City/State/ZIP Code Phon e Number PN SOFT [address] [place] [address] documented in this encounter Visit Diagnoses Diagnosis Gross hematuria documented in this encounter Care Teams Boat Garnisher Relationship Specialty Start Date End Date Allyson Pool PA-C PCP - General Physician Disk Recordist 09/26/16 02/28/21 [address] [place] [id number] documented as of this encounter
--- OUTSIDE RECORDS SUMMARY | 2022-02-24 15:49 | XMS_ITS | Encounter Summary ---
:1935 Author Organization [facility] Address [address] [place] [address] Care Team Providers Name Role Phone Allyson Pool PA-C Primary Care Provider Reason for Visit Reason Comments Follow-up Encounter Details Date Type Department Care Team Description 05/29/2017 Office Visit [facility] Cancer Clifton Barboza noclonal gammopathy Care at [facility] MILADIS Farrell i present on serum [facility] [address] [place] [address] protein [address] [facility] S electrophoresis [place], [place] [id number] [place] [address] (Primary Dx) [phone] Social History Tobacco Use Types Packs/Day Years Used Date Smoking Tobacco: Never Smokeless Tobacco: Never Alcohol Use Standard Drinks/Week Comments Yes 0 (1 standard drink = 0.6 oz pure alcoho l) rare occasions Sex Assigned at Date Recorded Not on file documented as of this encounter Last Filed Vital Signs Vital Sign Reading Time Taken Comments Blood Pressure 133/71 05/29/2017 3:23 PM CLINICAL SCIENTIST Pulse 60 05/29/2017 3:23 PM CLINICAL SCIENTIST Temperature 36.9 ??C (98.4 ??F) 05/29/2017 3:23 PM CLINICAL SCIENTIST Respiratory Rate - - Oxygen Saturation - - Inhaled Oxygen Concentration - - Weight 99.8 kg (220 lb) 05/29/2017 3:23 PM CLINICAL SCIENTIST Height - - Body Mass Index 38.97 12/05/2016 3:05 PM CDT documented in this encounter Progress Notes Anangur Cheryl, Marlys Teresa, MBBS - 05/29/2017 12:00 PM CST NAME: FIDELIA LUNDBERG MR#: [id number] CSN: [id number] AUTHENTICATING CLINICIAN: MILADIS Dennis CONFIRM #: [id number] LOC: 3704 CLINIC PROGRESS NOTE DATE OF VISIT: 05/29/2017 : 1935 Diagnosis: IGG kappa MGUS History: Fidelia is a 81-year-old with history of hypertension, coronary artery disease, with cardiac arrest and VFib in 2002, first SC reportedly at age 44. She comes today [...] in 3 months. CA:MEDQ C: CONFIRM #: [id number] ICAL SCIENTIST documented in this encounter Plan of Treatment Not on filedocumented as of this encounter Results (ABNORMAL) Electrophoresis Protein, Serum - in 4 months (10/02/2017 1:32 PM CDT) athologist Signature Total Protein 6.8 6.4 - 8.3 PN SOFT g/dl Comment: Performed at [facility], [address] [place] [address] ??[id number] Albumin 3.8 3.4 - 4.8 g/dl PN SOFT Alpha 1 0.3 0.2 - 0.5 g/dl PN SOFT Alpha 2 0.8 0.5 - 1.1 g/dl PN SOFT Beta 0.7 0.6 - 1.1 g/dl PN SOFT Gamma 1.2 0.7 - 1.6 g/dl PN SOFT Monoclonal Joaquin 0.5 (H) 0.0 g/dl PN SOFT Comment: IgG [place] Interpretation SEE BELOW PN SOFT Comment: A monoclonal protein has been detected b y serum protein electrophoresis. Signed out by SEE BELOW PN SOFT Comment: [facility] Performed at [facility], [address] [place] [address] ??[id number] CLIA Number [id number] Specimen Anatomical Collection Method Collection Time Receive d Time (Source) Location / / Volume Laterality 10/02/2017 1:32 PM 8 6:17 CDT PM CDT Marlys [facility] Performing Organization Address City/[facility] Phon e Number PN SOFT [address] [place] [address] [phone] (ABNORMAL) Free Light Chains, Serum - in 4 months (10/02/2017 1:32 PM CDT) P athologist Signature [place] Free 2.73 (H) 0.33 - PN SOFT Light Chains 1.94 mg/dl Lambda Free 1.59 0.57 - PN SOFT Light Chains 2.63 mg/dl [place]/Lambda 1.72 (H) 0.26 - PN SOFT Ratio Free 1.65 Light Chains Comment: Performed at [facility], [address] [place] [address] ??[address] CLIA Number [id number] Specimen Anatomical Collection Method Collection Time Receive d Time (Source) Location / / Volume Laterality 10/02/2017 1:32 PM 8 6:12 CDT PM CDT Marlys [facility] Performing Organization Address [facility] Phon e Number PN SOFT [address] [place] [address] Creatinine / GFR (10/02/2017 1:32 PM CDT) [...] - 10/02/2017 1:49 PM CDT Performed at [facility], [address] [place] [address] CLIA number [id number] Marlys [facility] Performing Organization Address [facility] Phon e Number PN SOFT [address] [place] [address] Bilirubin, Total (10/02/2017 1:32 PM CDT) athologist Signature Bilirubin Total 1.0 0.2 - 1.2 PN SOFT mg/dL Specimen Anatomical Collection Method Collection Time Receive d Time (Source) Location / / Volume Laterality 10/02/2017 1:32 PM 8 1:32 CDT PM CDT Narrative PN SOFT - 10/02/2017 1:49 PM CDT Performed at [facility], Formerly named [facility] [address] [place] [address] CLIA number [id number] Marlys [facility] Performing Organization Address [facility] Phon e Number PN SOFT [address] [place] [address] [phone] Calcium (10/02/2017 1:32 PM CDT) P athologist Signature Calcium 9.2 8.4 - 10.4 PN SOFT mg/dL Specimen Anatomical Collection Method Collection Time Receive d Time (Source) Location / / Volume Laterality 10/02/2017 1:32 PM 8 1:32 CDT PM CDT Narrative PN SOFT - 10/02/2017 1:49 PM CDT Performed at [facility], [address] [place] [address] CLIA number [id number] Marlys [facility] Performing Organization Address City/[facility] Code Phon e Number PN SOFT [address] [place] [address] AST (10/02/2017 1:32 PM CDT) Patholo gist Method Time Signature Aspartate 20 10 - 40 PN SOFT Aminotransferase U/L Specimen Anatomical Collection Method Collection Time Receive d Time (Source) Location / / Volume Laterality 10/02/2017 1:32 PM 8 1:32 CDT PM CDT Narrative PN SOFT - 10/02/2017 1:49 PM CDT Performed at [facility], Formerly [facility] [address] [place] [address] CLIA number [id number] Marlys [facility] Performing Organization Address [facility] Phon e Number PN SOFT [address] [place] [address] Alkaline Phosphatase, Total (10/02/2017 1:32 PM CDT) P athologist Signature Alk Phos 53 40 - 150 U/L PN SOFT Specimen Anatomical Collection Method Collection Time Receive d Time (Source) Location / / Volume Laterality 10/02/2017 1:32 PM 8 1:32 CDT PM CDT Narrative PN SOFT - 10/02/2017 1:49 PM CDT Performed at [facility], Formerly named [facility] [address] [place] [address] CLIA number [id number] Marlys [facility] Performing Organization Address [facility]/ZIP Code Phon e Number PN SOFT [address] [place] [address] Complete Blood Count W/Diff - in 4 [...] - 10/02/2017 1:35 PM CDT Performed at [facility], [address] [place] [address] CLIA number [id number] Marlysra Moore Margarita [facility] Performing Organization Address [facility] Phon e Number PN SOFT [address] [place] [address] documented in this encounter Visit Diagnoses Diagnosis Monoclonal gammopathy present on serum p rotein electrophoresis ([facility]) - Primary Monoclonal gammopathy present on serum p rotein electrophoresis ([facility]) documented in this encounter Care Teams Rack Production Worker Relationship Specialty Start Date End Date Allyson Pool PA-C PCP - General Physician Digital Marketing Manager 09/26/16 02/28/21 [address] [place] [id number] documented as of this encounter
--- OUTSIDE RECORDS SUMMARY | 2022-02-24 15:49 | XMS_ITS | Encounter Summary ---
:1935 Author Organization [facility] Address [address] [place] [address] Care Team Providers Name Role Phone Allyson Pool PA-C Primary Care Provider Reason for Visit Reason Comments Other Encounter Details Date Type Department Care Team Description 07/08/2017 Telephone Specialty Center 3931 Gerson Hernandez MD Other Neurosurgery [address] [facility] S [facility] 39[address] [facility] [address] [place] [address] [place] [address] [phone] (Wo rk) Social History Tobacco Use Types [...] on filedocumented in this encounter Care Teams Wooden Frame Builder Relationship Specialty Start Date End Date Allyson Pool PA-C PCP - General Physician Water Gas Operator 09/26/16 02/28/21 [address] [place] [id number] documented as of this encounter
--- OUTSIDE RECORDS SUMMARY | 2022-02-24 15:49 | XMS_ITS | Encounter Summary ---
:1935 Author Organization [facility] Address [address] [place] [address] Care Team Providers Name Role Phone Allyson Pool PA-C Primary Care Provider Reason for Visit Reason Comments Hematuria Encounter Details Date Type Department Care Team Description 05/28/2017 Nurse Triage [place] [facility] Allyson Pool PA-C Hematuria Medicine [address] [facility] [address] [place] [address] [phone] Social History Tobacco Use Types Packs/Day Years [...] Jose Aldridge MD SHAK3 ANA PN SHAK3 ERY ASSISTANT Solange Johns - 05/28/2017 4:55 PM CST Home care is calling. Patient is having blood in urine. Please advise. ERY ASSISTANT documented in this encounter Plan of Treatment Not on filedocumented as of this encounter Visit Diagnoses Not on filedocumented in this encounter Care Teams Predatory Animal Exterminator Relationship Specialty Start Date End Date Allyson Pool PA-C PCP - General Physician Fiberglass Product Tester 09/26/16 02/28/21 [address] [place] [id number] documented as of this encounter
--- OUTSIDE RECORDS SUMMARY | 2022-02-24 15:49 | XMS_ITS | Encounter Summary ---
:1935 Author Organization [facility] Address [address] [place] [address] Care Team Providers Name Role Phone Allyson Pool PA-C Primary Care Provider Reason for Visit Procedure/Equipment (Routine) - Incomplete Specialty Diagnoses / Procedures Referred By Contact Refer red To Contact Procedures Provider, Foreign Images Foreign Image(S) XR Spine [address] [place] [address] Referral ID Status Reason Start Date Expiration Date Visits V isits Requested Authorized [id number] Incomplete 08/20/2017 11/19/2018 1 1 Encounter Details Date Type Department Care Team Description 07/23/2017 Imaging [facility] Radiology PACS Provider, Foreign Images [address] [facility] [address] [place] [address] [place] [address] Social History Tobacco Use Types Packs/Day Years [...] filedocumented in this encounter Care Teams Supervisor Core Drilling Relationship Specialty Start Date End Date Allyson Pool PA-C PCP - General Physician Substation Operator Helper Generation 09/26/16 02/28/21 [address] [place] [id number] documented as of this encounter
--- OUTSIDE RECORDS SUMMARY | 2022-02-24 15:49 | XMS_ITS | Encounter Summary ---
:1935 Author [facility] Address [address] [place] [address] Care Team Providers Name Role Phone Allyson Pool PA-C Primary Care Provider Reason for Referral Procedure/Equipment (Routine) - Incomplete Specialty Diagnoses / Procedures Referred By Contact Refer red To Contact Diagnoses Diagnosis unknown Khoi Hernandez MD Procedures FL C Arm [address] [place] [address] [place] [address] Referral ID Status Reason Start Date Expiration Date Visits V isits Requested Authorized [id number] Incomplete 07/09/2017 10/08/2018 1 1 R CONTRACTOR Reason for Visit Auth/Cert Specialty Diagnoses / Procedures Referred By Contact Refer red To Contact General Internal Diagnoses EXT STAY radiculopathy 7w Neuroscience Medicine Procedures Anterior cervical discectomy, spinal cord decompression and fusion with bone bank graft and cervical plate, C3-4, C4-5 with spinal cord monitoring [address] [address] Phone: Referral ID Status Reason Start Date Expiration Date Visits Requ ested Visits Authorized [id number] 07/10/2017 10/09/2018 1 1 Encounter Details Date Type Department Care Team Description 07/09/2017 Hospital Encounter Restorationist Radiology Khoi Hernandez Diagnosis unknown [address]. MD [place], [place] [address] [place] [address] [place] [address] Social History Tobacco Use Types Packs/Day Years [...] PM Diagnosis unknown Resu lts for this LABOR CONTRACTOR procedure are i n the results section . documented in this encounter Results FL C Arm (07/09/2017 2:47 PM LABOR CONTRACTOR) Anatomical Region Laterality Modality Radiographic Imaging Specimen (Source) Anatomical Location Collection Method / Collectio n Time Received Time / Laterality Volume Narrative 07/09/2017 3:25 PM LABOR CONTRACTOR Images obtained during surgical procedure. See procedure note in Epic on this date. Khoi Hernandez MD RAD FL documented in this encounter Visit Diagnoses Diagnosis Diagnosis unknown Other unknown and unspecified cause of m orbidity or mortality documented in this encounter Care Teams Shaker Repairer Relationship Specialty Start Date End Date Allyson Pool PA-C PCP - General Physician P[employer] Salesperson 09/26/16 02/28/21 [address] [place] [id number] documented as of this encounter
--- OUTSIDE RECORDS SUMMARY | 2022-02-24 15:49 | XMS_ITS | Encounter Summary ---
:1935 Author Organization [employer] Address [address] [place] [address] Care Team Providers Name Role Phone Allyson Pool PA-C Primary Care Provider Reason for Referral (Routine) - Closed Specialty Diagnoses / Procedures Referred By Contact Refer red To Contact Procedures Natali Pate PA-C Physical Therapy Eval and [address] [address] Referral ID Status Reason Start Date Expiration Date Visits Requ ested Visits Authorized [id number] Closed 07/10/2017 10/09/2018 1 1 OL YEAR NANNY Reason for Visit Auth/Cert Specialty Diagnoses / Procedures Referred By Contact Refer red To Contact General Internal Diagnoses EXT STAY radiculopathy 7w Neuroscience Medicine Procedures Anterior cervical discectomy, spinal cord decompression and fusion with bone bank graft and cervical plate, C3-4, C4-5 with spinal cord monitoring [address] 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) [address] [place] [address] [address] [place], [place] [address] [place] [address] (Work) [phone] Social History Tobacco Use Types Packs/Day Years [...] Comments Blood Pressure 152/67 07/12/2017 7:17 AM SCHOOL YE[employer] NANNY Pulse 63 07/12/2017 7:17 AM S[employer] YE[employer]ANNY Temperature 37 ??C (98.6 ??F) 07/12/2017 7:17 AM SCHO[employer] YE[employer] NANNY Respiratory Rate 18 07/12/2017 7:17 AM SCHO[employer] YE[employer] NANNY Oxygen Saturation 95% 07/12/2017 7:17 AM SCHO[employer] YE[employer]ANNY Inhaled Oxygen Concentration - - Weight 99.8 kg (220 lb) 07/08/2017 3:58 PM SCHOOL YEAR NANNY 05/1717 Height 160 cm (5' 3) 07/08/2017 3:58 PM SCHO[employer] YE[employer] NANNY 12/05/16 Body Mass Index 38.97 07/08/2017 3:58 PM [employer] YE[employer]ANNY documented in this encounter Discharge Summaries Warner Machado PA-C - 07/12/2017 7:51 AM CST DISCHARGE SUMMARY Patient ID: Waqar Vysa [id number] 81 y.o. 1935 Admit date: 07/09/2017 Discharge [...] air with O2 sats greaterthan 90%. Disposition: [facility] Patient Instructions: Patient verbalized understanding and [...] must be accompanied by a responsible adult vibratory pile driver at the time you are discharged. [...] walk after a fall Allyson Pool PA-C [address] [place] [address] Schedule in 7-10 days after discharge from care facility. [facility] [address] [facility] [address] You will be discharged to this care facility. Facility MD will be following you here. Warner Machado PA-C OL YEAR NANNY documented in this encounter Discharge Instructions Discharge Instr - Breanne Singh RN - 07/12/2017 10:47 AM S[employer] YE[employer]AN[employer] Your information has been submitted on July 12, 2017 at 10:44:53 AM [employer] YE[employer]ANNY. The confirmation number is [id number] OL YEAR NANNY documented in this encounter Medications at Time [...] Recurrent major depressive day. disorder, in remission ([facility]) senna (SENNA LAXATIVE) 8.6 Take 1 Tab by 60 Tab 0 201709/30/2017 MG tablet mouth two times daily as needed for Constipation. triamterene-hydrochlorothia Take 0.5 Tabs by 45 Tab 3 10/06/2017 zide (MAXZIDE-25) 37.5-25 mouth daily. MG tabletIndications: Essential hypertension ([facility]) documented as of this encounter Progress Notes [...] CST Discharge paperwork and prescriptions for Senna, [place], [place] faxed to [facility] (fax# [phone]). Fax confirmation received OK on 07/12/17 at 1001. Hard copies of listed prescriptions stamped with Fax confirmation information and placed in the discharge packet. Discharge transportation has been arranged with family for 1030 pickling grader today. Receiving facility, [facility] notified of discharge time. Caregiver is aware of plane and will transport at 1030 AM. OL YEAR NANNY Breanne Andujar RN - 07/12/2017 9:11 AM CST Care Integration: Following patient for discharge planning. Reviewed chart. Pt to discharge to [facility] today 07/12/17. Spoke with Caryn at [facility] and confirmed that bed is available until 12 PM. Informed Caryn that plan is for Ed to transport Waqar at 10:30 AM. CI will continue to follow until discharge. Plan: 1. Discharge- [facility] 2. [facility]- 07/12/17 3. Transport- Breanne Andujar RN 07/12/2017, 9:14 AM OL YEAR NANNY Breanne Andujar RN - 07/11/2017 4:43 PM CST Discharge Finalization Tool Patient will be discharged to: [facility], [address] [place] [address] Other contacts needed: None Date/Time Transport Needed: 07/12/17 1030 Set up ride: no ( will be here at 10-1030 to transport), Caregiver Communication Needs: other (see comments) (Caregiver aware of plan and will transport at 1030 AM) Specific Patient Transport Needs: (NA) Home Care Attestation face to face in Epic: Not applicable, SNF High Risk Readmission: no Receiving MD/ALTERATION WORKER: Facility MD OL YEAR NANNY Yanet Karimi, PT - 07/11/2017 3:32 PM [...] with AD Instruction provided: Posture, slow steps, pickling grader feet Stairs: Not appropriate to attempt based [...] not discussed with patient. Interdisciplinary Communication: OT, PHONE ENGINEER, RN Fall precautions put in place: call [...] Therapist: Yanet Karimi, NIMO 3:35 PM 07/11/2017 OL YE[employer] NANNY Warner Machado PA-C - 07/11/2017 2:55 PM [...] today and leave incision open to air OL YEAR NANNY Breanne Andujar RN - 07/11/2017 10:15 AM CST Care Integration: Following the patient for discharge planning. Reviewed chart. Pt ready for discharge today 07/11/17 but still seeking placement at this time. Called and LVM for Caryn in admissions at [facility] and Caryn stated that she is waiting for dtr Onel to call her back before she can make a final determination. Awaiting response at this time. Breanne Andujar RN 07/11/2017, 10:15 AM Addendum: 12:42 PM Received call from Caryn confirming that Waqar has been financially and clinically accepted for admission to [facility] on 07/12/17. Will need to arrive before 12 PM due to staffing concerns. Met with Waqar and Ed at bedside and provided the information as above. Waqar and Ed are very pleased that Waqar is able to go to [facility] since this location is very close to their home in [place], [place]. Ed stated that he will transport and be at [facility] between 10 and 1030 AM on 07/12/17. This will allow plenty of time for them to make it to [facility] by 12 PM deadline. CI will continue to follow until discharge. Plan: 1. Discharge- [facility] 2. [facility]- 07/12/17 3. Transport- Breanne Andujar RN 07/11/2017, 1:10 PM OL YEAR NANNY Mimi Bauer OTR/Praveen - 07/11/2017 9:11 AM [...] Therapist signature: MAGGIE Mckeon 07/11/2017, 4:05 PM OL YEAR NANNY Coni Bradford, PT - 07/10/2017 11:00 AM [...] medical necessity for the treatment plan above. OL YEAR NANNY Latonia Rutherford, JODIR/Praveen - 07/10/2017 9:19 AM [...] transfer with minimal assistance in 3 days. correction goal: Patient will maximize independence and safety [...] medical necessity for the treatment plan above. OL YEAR NANNY Natali Pate PA-C - 07/10/2017 9:01 AM [...] (160 cm) Comment: 12/05/16 Wt 220 lb (37947 g) Comment: 05/1717 SpO2 96% BMI 38.97 [...] questions, please contact Natali Pate at pager: After 5pm or weekends, please contact our senior consultant service. OL YEAR NANNY Davonte Carly F - 07/09/2017 7:22 PM CST Spiritual Care Note Referral/Reason for Visit Patient Request for visit and prayer after surgery Summary of Visit Waqar was lying in bed alert and awake and appreciative of this Preservative Filler Machine Operator's visit. She shared about her adult children, grandchildren and great- grandchildren. She also shared that she was a long-time member of [facility] [employer] in [place]. She asked this Preservative Filler Machine Operator to contact the pentecostal about her hospitalization. She also asked for prayer, which this Preservative Filler Machine Operator provided. Waqar finds her strength and support from her family and pentecostal community. She is a strong believer in God and had been very active in her pentecostal through the years. Interventions Listened compassionately to Waqar's family and pentecostal storytelling. Provided a kind, empathic presence; validated her experiences Prayed for Waqar and her family Blessed her with rest this evening. Plan Spiritual Care Remains Available. This Preservative Filler Machine Operator will call [facility] to inform them of Waqar's hospitalization and ask them to pray for her, per her request. Data 07/09/17 192 Referral Source Referral Source Patient Request Reason for Referral Emotional or Spiritual Distress Yes Request for Healing Modalities Yes Preservative Filler Machine Operator Interventions Spiritual Counselling Yes Life Review/Storytelling Yes Healing Modalities Prayer/Healing Total Length of Visit Visit Duration 10-29 minutes Written by Carly Arauz Pre K Lead Teacher Pager: [phone] --End of Note-- Irma Goldman RN - 07/09/2017 5:20 PM CST POST-OP O: Patient will have a stable post-op period. D: Pt arrived to room 4/714 [facility], at 1720. Patient is alert and confused. [...] After 5pm or weekends, please contact our senior consultant service. OL YEAR NANNY documented in this encounter H&P Notes Warner [...] suitable candidate for surgery Warner Machado PA-C OL YEAR NANNY Source Note - Annetta Ashby MD - 07/08/2017 3:00 PM SCHOOL YE[employer] NANNY PREOPERATIVE ASSESSMENT Date of Service: 07/08/2017 Date of : 1935 Age: 81 y.o. Sex: female Preoperative Evaluation completed by: Annetta Ashby MD Primary care physician: Allyson Pool PA-C [phone] CHIEF COMPLAINT Pre-Operative Evaluation ANTICIPATED PROCEDURE Chief Complaint Patient presents with ??? Preop Exam cervial fusion [facility] 07-09-17 HISTORY OF PRESENT ILLNESS Waqar Vyas [...] for coronary artery disease. I reviewed her dental ceramist assistant last note in care everywhere on October 16, 2016 through [facility]. According to her dental ceramist assistant, she is optimally medically managed. He was [...] active healthcare directive or medical power of criminal attorney. Risk Factors/Review of Systems: (Please see flowsheets for details) Cardiovascular risks negative except for: CAD: CAD Details: Stent, NE HTN: Renal risks negative except for: Neuro [...] 0.4 mg under tongue. 11/01/2016: Received from: [facility] Received Sig: Place 1 tablet (0.4 mg) [...] and left leg weakness. Echocardiogram done at [facility] -full information is available in care everywhere [facility] [address] [place] [address] Name: WAQAR VYAS : 1935 Study Date: 04/16/2016 09:05 AM Age: 80 yrs Gender: Female Patient Location: [facility] Reason For Study: , Cardiac murmur, unspecified Ordering Physician: JULIAN KLINE Referring Physician: [facility] Performed By: Stephanie Ramos BSA: 2.0 [...] infarct age undetermined. No EKG available and [place] system to compare.. Labs done: Today: 07/08/2017. [...] WITH PATIENT: yes Annetta Ashby MD 07/08/2017 OL YEAR NANNY documented in this encounter Procedure Notes Khoi Hernandez - 07/09/2017 3:06 PM CST NAME: WAQAR VYAS MR#: [id number] CSN: [id number] AUTHENTICATING CLINICIAN: Khoi Hernandez MD CONFIRM #: [id number] LOC: 1 OPERATIVE REPORT DATE OF OPERATION: 07/09/2017 : 1935 SURGEON: Khoi Hernandze MD NAME OF PROCEDURES: Anterior cervical diskectomy [...] at C3-4 and to a lesserdegree, C4-5. DESTATICIZER FEEDER: Warner Machado PA-C. DESCRIPTION OF PROCEDURE: Patient [...] coagu lated and elevated, and 45 mm lean six sigma black belt retractor was placed along with intervertebral body [...] were then reduced and a 42.5 mm eTutortronic titanium dynamic plate was selected, sized, and [...] of the case. AGB:MEDQ C: CONFIRM #: [id number] OL YEAR NANNY documented in this encounter Consult Notes Breanne Andujar RN - 07/10/2017 9:32 AM CSTAssociated Order(s): CONSULT CARE INTEGRATION Care Integration: Received call from Shaina VELÁZQUEZ, [facility]: [phone]. Shaina stated that she is actively involved in Waqar's case and recently completed application for Medical Assistance for Waqar. Shaina stated that [place] dtr [facility] [phone] has a copy of application. Shaina informed scenario writer that Waqar's [facility] is interested in TCU at discharge. [facility] is Waqar's caregiver and does not feel that he can safely provide the amount of support Waqar will need after surgery. Consult for Care Integration has been placed for discharge planning. PT/OT evaluations also pending at this time. [employer] Sawyer called and LVM for Onel requesting call [...] be very forgetful. Discussed TCU options in [facility] and Onel supplied the following locations in order of preference: 1. [facility] facility [facility]. [facility] listed this location as 3 options as well Spoke with [facility] by phone and he provided the above TCU referral options. [facility] explained to [facility] that due to outpatient [...] hopeful one of these locations will acceptArlene. [facility] agreed to provide updates as they become available. Discussed transport and [facility] stated that he will provide transport to facility at discharge. Electronically sent referral to above facilities. Spoke with Truman at [facility] whom stated that they do have beds but they do not accept [place] pending without proof that county has application, is processing, and has a [place] case # assigned. Cant Gang Sawyer agreed to reach out to [facility] again to ascertain if this information is obtainable. Called and LVM for [facility] asking for return call. Awaiting response at this time. Spoke with Natali Pate PA-C Neurosurgery and provided updates as above. Plan: 1. Discharge- TCU, referrals sent 2. [facility]- 07/11/17, pending bed availability and TCU acceptance 3. Transport- Breanne Andujar RN 07/10/2017, 2:38 PM OL YEAR NANNY documented in this encounter Miscellaneous Notes [employer] Activation Code - FélixTerri ramireze EllenASHISH - 07/11/2017 7:12 PM SCHOOL YEAR NANNY Thank you for enrolling in [employer]. Please follow the instructions below to securely access your online medical record. [employer] allows you to send messages to your doctor, view your test results, renewyour prescriptions, schedule appointments, and more. How Do I Sign Up? 1. In your Internet browser, go to [email or web address] 2. Click on the Enter activation code link under the New User? section. You will see the Activate your account! page. 3. Enter your activation code exactly as it appears below. You will not need to use this code after you???ve completed the sign-up process. If you do not sign up before the expiration date, you must request a new code. Activation Code: [email or web address] Expires: 08/10/2017 7:12 PM 4. Enter your last name and date of (mm/dd/yyyy) as indicated, then click Continue. You will be taken to the Let's set up your account page. 5. Create a username. This will be your [employer] login ID and cannot be changed, so think of one thatis secure and easy to remember. 6. Create a password. You can change your password at any time. 7. Enter your e-mail address. You will receive e-mail notification when new information is availablein [employer]. 8. Select your Security Questions and enter your answers. These can be used at a later time if you forget your password. 9. Check the box to accept the terms and conditions. Click Create your account. You can now view your medical record. Additional Information If you have questions, you can call [phone] to talk to our [employer] staff. Remember, [employer] is NOT to be used for urgent needs. For medical emergencies, dial 911. OL YEAR NANNY documented in this encounter Plan of Treatment Not on filedocumented as of this encounter Procedures Procedure Name Priority Date/Time Associated Diagnosis Comme nts BEDSIDE GLUCOSE Routine 07/12/2017 7:38 AM Result s for this MONITOR POCT SCHOOL YEAR NANNY procedure are i n the results section. BEDSIDE GLUCOSE Routine 07/11/2017 3:58 PM Result s for this MONITOR POCT SCHO[employer] YE[employer] NANNY procedure are i n the results section. MRSA CULTURE Routine 07/09/2017 5:48 PM Results f or this SCHOOL YEAR NANNY procedure are i n the results section. POTASSIUM STAT 07/09/2017 10:39 AM Results for this SCHOOL YEAR NANNY procedure are i n the results section. documented in this encounter Results Bedside Glucose Monitor (07/12/2017 7:38 AM SCHOOL YEAR NANNY) P athologist Signature Bedside Blood 83 mg/dL PN SOFT Glucose Test Comment: Performed at [address] [employer] [place] [address] Specimen Anatomical Collection Method Collection Time Receive d Time (Source) Location / / Volume Laterality 07/12/2017 7:38 AM 8 7:40 SCHOOL YEAR NANNY AM SCHOOL YEAR NANNY Khoi Hernandez MD LAB_1 Performing Organization Address [facility] Phon e Number PN SOFT [address] [place] [address] Bedside Glucose Monitor (07/11/2017 3:58 PM SCHOOL YEAR NANNY) P athologist Signature Bedside Blood 95 mg/dL PN SOFT Glucose Test Comment: Performed at [address] [place] [address] Specimen Anatomical Collection Method Collection Time Receive d Time (Source) Location / / Volume Laterality 07/11/2017 3:58 PM 8 4:00 SCHOOL YEAR NANNY PM SCHOOL YEAR NANNY Khoi Hernandez MD LAB_1 Performing Organization Address [facility] Phon e Number PN SOFT [address] [place] [address] MRSA Culture (07/09/2017 5:48 PM SCHOOL YEAR NANNY) [facility] gist Method Time Signature Source Nares PN SOFT Site PN SOFT Culture MRSA No Methicillin 07/10/2017 PN SOFT Screen Resistant Staph 6:16 PM SCHOOL YEAR NANNY aureus Isolated Specimen (Source) Anatomical Collection Method Collection Time Re ceived Time Location / / Volume Laterality Nares: 07/09/2017 5:48 PM SCHOOL YEAR NANNY Narrative PN SOFT - 07/10/2017 6:16 PM SCHOOL YEAR NANNY Performed at [facility], [address] [place] [address], CLIA Number [id number] Khoi Hernandez MD LAB_1 Performing Organization Address [facility]/ZIP [facility] Phon e Number PN SOFT [address] [place] [address] POTASSIUM (07/09/2017 10:39 AM SCHOOL YEAR NANNY) athologist Signature Potassium 3.7 3.5 - 5.2 PN SOFT mmol/L Specimen Anatomical Collection Method Collection Time Receive d Time (Source) Location / / Volume Laterality 07/09/2017 10:39 07/09/2017 AM SCHOOL YEAR NANNY 10:44 AM SCHOOL YEAR NANNY Narrative PN SOFT - 07/09/2017 11:01 AM SCHOOL YEAR NANNY Performed at [facility] [address] [place] [address] CLIA number [id number] Khoi Hernandez MD LAB_1 Performing Organization Address [facility] Phon e Number PN SOFT [address] [place] [address] documented in this encounter Visit Diagnoses Diagnosis Cervical myelopathy (HRC) Cervical spondylosis with myelopathy documented in this encounter Administered Medications Inactive Administered Medications - up to 3 most recent administrations Medication Order MAR Action Action Date Dose Rate Site acetaminophen (TYLENOL) tablet 650 Given 07/11/2017 7:26 PM SCHOOL YEAR NANNY 650 mg mg 650 mg, Oral, Q4H PRN, Other, Mild Pain (pain score 1-4), Starting on Sat07/09/17 at 1730, Until Sat07/12/17 at 1307, Every 4 hours while awake as needed. Give for mild pain or if patient prefers acetaminophen over other options for pain (all pain scores)., Post-op Given 07/11/2017 12:06 PM SCHOOL YEAR NANNY 650 mg Given 07/10/2017 6:10 AM SCHOOL YEAR NANNY 650 mg amLODIPine (NORVASC) tablet 2.5 mg Given 07/12/2017 7:38 AM SCHOOL YEAR NANNY 2.5 mg 2.5 mg, Oral, DAILY, First dose on Sat07/09/17 at 1745, Until Discontinued, Post-op Given 07/11/2017 8:34 AM SCHOOL YEAR NANNY 2.5 mg Given 07/10/2017 7:59 AM SCHOOL YEAR NANNY 2.5 mg ceFAZolin (ANCEF) 1 g in dextrose 50 Started 07/09/2017 6:37 P M SCHOOL YEAR NANNY 1 g 100 mL/hr ml IVPB 1 g, Intravenous, Administer over 30 Minutes, Q8H (NON-STND), First dose on Sat07/09/17 at 1800, For 1 dose, Give 6 hours post op, Post-op cholecalciferol (VITAMIN D3) tablet Given 07/12/2017 7:38 AM SCHOOL YEAR NANNY 1,000 Units 1,000 Units 1,000 Units, Oral, DAILY, First dose on Sat07/09/17 at 1745, Until Discontinued, Post-op Given 07/11/2017 8:35 AM SCHOOL YEAR NANNY 1,000 Units Given 07/10/2017 7:58 AM SCHOOL YEAR NANNY 1,000 Units donepezil (ARICEPT) tablet 10 mg Given 07/11/2017 9:59 PM SCHOOL YEAR NANNY 10 mg 10 mg, Oral, HS, First dose on Sat07/09/17 at 2200, Until Discontinued, Post-op Given 07/10/2017 10:07 PM SCHOOL YEAR NANNY 10 mg labetalol (TRANDATE) tablet 100 mg Given 07/11/2017 7:26 PM SCHOOL YEAR NANNY 100 mg 100 mg, Oral, DAILY - 2000, First dose on Sat07/09/17 at 2000, Until Discontinued, Post-op Given 07/10/2017 10:06 PM SCHOOL YEAR NANNY 100 mg Given 07/09/2017 7:57 PM SCHOOL YEAR NANNY 100 mg labetalol (TRANDATE) tablet 50 mg Given 07/12/2017 7:38 AM SCHOOL YEAR NANNY 50 mg 50 mg, Oral, DAILY, First dose (after last reorder) on Sat07/10/17 at 0800, Until Discontinued, Post-op Given 07/11/2017 8:34 AM SCHOOL YEAR NANNY 50 mg Given 07/10/2017 7:58 AM SCHOOL YEAR NANNY 50 mg NaCl 0.9%-KCl 20 mEq/liter New Bag Started 07/10/2017 6:10 AM SCHOOL YEAR NANNY 75 mL/hr infusion Intravenous, at 75 mL/hr, CONTINUOUS, Starting on Sat07/09/17 at 1645, Post-op Continue Current Bag 07/09/2017 5:28 PM SCHOOL YEAR NANNY 75 mL/hr oxyCODONE-acetaminophen (PERCOCET) 5-325 MG Given 06/2017 7:38 AM SCHOOL YEAR NANNY 1 Tablet per tablet 1-2 Tab 1-2 Tablet, Oral, Q4H PRN, Other, Severe Pain (pain score 8-10) if able to take oral medication, Starting on Sat07/09/17 at 1730, Until Sat07/12/17 at 1307, Do NOT administer at the same time as IV opioids. HOLD if on SPORTS ADMINISTRATOR., Post-op Given 07/11/2017 6:14 PM SCHOOL YEAR NANNY 1 Tablet Given 07/11/2017 4:34 AM SCHOOL YEAR NANNY 1 Tablet PARoxetine (PAXIL) tablet 10 mg Given 07/12/2017 7:38 AM SCHOOL YEAR NANNY 10 mg 10 mg, Oral, BID, First dose on Sat07/09/17 at 2000, Until Discontinued, Post-op Given 07/11/2017 7:26 PM SCHOOL YEAR NANNY 10 mg Given 07/11/2017 8:34 AM SCHOOL YEAR NANNY 10 mg rosuvastatin (CRESTOR) tablet 40 mg Given 07/11/2017 9:59 PM SCHOOL YEAR NANNY 40 mg 40 mg, Oral, HS, First dose on Sat07/09/17 at 2200, Post-op Given 07/10/2017 10:05 PM SCHOOL YEAR NANNY 40 mg Given 07/09/2017 9:15 PM SCHOOL YEAR NANNY 40 mg sodium chloride 0.9% 0.9 % injection Given 07/11/2017 7:30 PM SCHOOL YEAR NANNY 10 mL Starting on Sat07/11/17 at 1923, Until Sat07/11/17 at 1930, For 1 dose, Taylor Newsome : cabinet override triamterene-hydrochlorothiazide Given 07/12/2017 7:38 AM 0.5 Tab lets (MAXZIDE-25) 37.5-25 MG per tablet 0.5 T ab SCHOOL YEAR NANNY 0.5 Tablet, Oral, DAILY, First dose on Sat07/09/17 at 1745, Until Discontinued, Post-op Given 07/11/2017 8:35 AM SCHOOL YEAR NANNY 0.5 Tablets Given 07/10/2017 7:58 AM SCHOOL YEAR NANNY 0.5 Tablets documented in this encounter Active and Recently Administered Medications Times are shown in SCHOOL YEAR NANNY. Scheduled Medication Order 07/10/2017 07/11/2017 07/12/2017 amLODIPine [...] increasing by 3 in 30 minutes, Starting [facility] 07/09/17 at 1730, May administer 1 hour after ORAL opioid administration if given for pain score escalation. Do NOT administer at the same time as ORAL opioids. HOLD if on SPORTS ADMINISTRATOR., Post-op ondansetron (ZOFRAN) injection 4 mg 4 [...] if able to take oral medication, Starting [facility] 07/09/17 at 1730, Do NOT administer at the same time as IV opioids. HOLD if on SPORTS ADMINISTRATOR., Post-op senna (SENOKOT) tablet 1-2 Tab 1-2 [...] override documented in this encounter Care Teams Arnp Relationship Specialty Start Date End Date Allyson Pool PA-C PCP - General Physician E Commerce Analyst 09/26/16 02/28/21 [address] [place] [id number] documented as of this encounter
--- OUTSIDE RECORDS SUMMARY | 2022-02-24 15:49 | XMS_ITS | Encounter Summary ---
:1935 Author Organization [employer] Address [address] [place] [address] Care Team Providers Name Role Phone Allyson Pool PA-C Primary Care Provider Reason for Referral Procedure/Equipment (Routine) - Incomplete Specialty Diagnoses / Procedures Referred By Contact Refer red To Contact Diagnoses S/P cervical spinal fusion Warner Machado PA-C Procedures XR Cervical Spine 2 Views 3931 [facility] [address] [place], [place] [address] Referral ID Status Reason Start Date Expiration Date Visits V isits Requested Authorized [id number] Incomplete 07/17/2017 01/13/2018 1 1 RMATION SECURITY DIRECTOR Reason for Visit Reason Comments QUESTIONS, GENERAL Encounter Details Date Type Department Care Team Description 07/17/2017 Telephone Specialty Center 3931 Destin Okeefe, RN, QUESTIONS, GENERAL Neurosurgery BSN 3931 [facility] [address] [place] [address] [phone] Social History Tobacco Use Types Packs/Day Years Used Date Smoking Tobacco: Never Smokeless Tobacco: Never Alcohol Use Standard Drinks/Week Comments Yes 0 (1 standard drink = 0.6 oz pure alcoho l) rare occasions (1 per month) Sex Assigned at Date Recorded Not on file documented as of this encounter Nursing Notes Destin Okeefe, RN, BSN - 07/17/2017 10:52 AM CST [place], nurse at [facility] was calling to find out if patient could have incision assessed by RN atTCU and not come in for 2 week post op check. She reports that incision has not shown any s/s of infection. Nurses at [facility] will contact clinic if there are any concerns about incision, but blog writer will cancel f/u appt. Order will be sent over for xrays to be done at [facility]. [facility] contact info : [phone]/ fax: [phone]. She will have xray results sent to [facility]. RMATION SECURITY DIRECTOR documented in this encounter Plan of Treatment Not on filedocumented as of this encounter Visit Diagnoses Diagnosis S/P cervical spinal fusion - Primary Arthrodesis status documented in this encounter Care Teams It Sales Consultant Relationship Specialty Start Date End Date Allyson Pool PA-C PCP - General Physician Learning Facilitator 09/26/16 02/28/21 [address] [place] [id number] documented as of this encounter
--- OUTSIDE RECORDS SUMMARY | 2022-02-24 15:49 | XMS_ITS | Encounter Summary ---
:1935 Author Organization [employer] Address [address] [place] [address] Care Team Providers Name Role Phone Allyson Pool PA-C Primary Care Provider Reason for Visit Reason Comments Preop Exam cervial [facility] Encounter Details Date Type Department Care Team Description 07/08/2017 Pre-Op Visit Annetta Whitfield Preoperativ e examination (Primary Dx); Farida Lozoya MD Cervical myelopathy (C); [address] Old myocardial infarction; [place] [address] [place] [address] Chronic coronary artery disease; [phone] Aortic valve sc lerosis; (Work) Essential hypertension; Recurrent major depressive disorder, in remission ([facility]); Hyperlipidemia, unspecified hyperlipidemia type Social History Tobacco [...] Comments Blood Pressure 118/68 07/08/2017 3:01 PM SENIOR DATA INTEGRATION DEVELOPER Pulse 60 07/08/2017 3:01 PM SENIOR DATA INTEGRATION DEVELOPER Temperature - - Respiratory Rate - - [...] surgery with a small sip of water OR DATA INTEGRATION DEVELOPER documented in this encounter OR Notes H&P - Annetta Ashby MD - 07/08/2017 3:00 PM CST PREOPERATIVE ASSESSMENT Date of Service: 07/08/2017 Date of : 1935 Age: 81 y.o. Sex: female Preoperative Evaluation completed by: Annetta Ashby MD Primary care physician: Allyson Pool PA-C [phone] CHIEF COMPLAINT Pre-Operative Evaluation ANTICIPATED PROCEDURE Chief Complaint Patient presents with ??? Preop Exam cervial fusion [facility] 07-09-17 HISTORY OF PRESENT ILLNESS Waqar Lundberg [...] for coronary artery disease. I reviewed her foot setter last note in care everywhere on October 16, 2016 through [facility]. According to her foot setter, she is optimally medically managed. He was [...] active healthcare directive or medical power of fiscal clerk. Risk Factors/Review of Systems: (Please see flowsheets for details) Cardiovascular risks negative except for: CAD: CAD Details: [place], [place] HTN: Renal risks negative except for: Neuro [...] 0.4 mg under tongue. 11/01/2016: Received from: [facility] Received Sig: Place 1 tablet (0.4 mg) [...] and left leg weakness. Echocardiogram done at [facility] -full information is available in care everywhere [facility] [address] [place] [address] Name: WAQAR LUNDBERG : 1935 Study Date: 04/16/2016 09:05 AM Age: 80 yrs Gender: Female [place] [facility] [place] For Study: , Cardiac murmur, unspecified Ordering Physician: JULIAN KLINE Referring Physician: [facility] Performed By: Stephanie Ramos BSA: 2.0 m2 [...] infarct age undetermined. No EKG available and [employer] system to compare.. Labs done: Today: 07/08/2017. [...] WITH PATIENT: yes Annetta Ashby MD 07/08/2017 OR DATA INTEGRATION DEVELOPER H&P - Annetta Ashby MD - 07/08/2017 [...] Non-Afr Am >60 07/08/2017 1522 Normal BMP. OR DATA INTEGRATION DEVELOPER documented in this encounter Plan of Treatment Not on filedocumented as of this encounter Procedures Procedure Name Priority Date/Time Associated Diagnosis Comme nts ECG 12 LEAD Routine 07/08/2017 3:07 PM Preoperative Results f or this OUTPATIENT SENIOR DATA INTEGRATION DEVELOPER examination procedure are i n the results section. documented in this encounter Results CBC - Complete Blood Count-No Diff (07/08/2017 3:22 PM SENIOR DATA INTEGRATION DEVELOPER) P athologist Signature White Blood Cell 7.0 [...] Volume Laterality 07/08/2017 3:22 PM 8 3:22 SENIOR DATA INTEGRATION DEVELOPER PM SENIOR DATA INTEGRATION DEVELOPER Narrative PN SOFT - 07/08/2017 3:25 PM SENIOR DATA INTEGRATION DEVELOPER Performed at [facility], [address] [place] [address] CLIA number [id number] Annetta Ashby MD LAB_1 Performing Organization Address City/State/ZIP Code Phon e Number PN SOFT [address] [place] [address] [phone] (ABNORMAL) Basic Metabolic Panel (07/08/2017 3:22 PM SENIOR DATA INTEGRATION DEVELOPER) athologist Signature Creatinine 0.80 0.55 - PN [...] Volume Laterality 07/08/2017 3:22 PM 8 4:59 SENIOR DATA INTEGRATION DEVELOPER PM SENIOR DATA INTEGRATION DEVELOPER Narrative PN SOFT - 07/08/2017 6:15 PM SENIOR DATA INTEGRATION DEVELOPER Performed at [facility], [address] [place] [address] CLIA number [id number] Annetta Ashby MD LAB_1 Performing Organization Address City/[facility] Phon e Number PN SOFT [address] [place] [address] ECG 12 Lead Outpatient (07/08/2017 3:07 PM SENIOR DATA INTEGRATION DEVELOPER) athologist Signature Ventricular Rate 62 BPM MUSE GHP Atrial Rate 62 BPM MUSE GHP P-R Interval 244 ms MUSE GHP QRS Duration 104 ms MUSE GHP QT 458 ms MUSE GHP QTc 464 ms MUSE GHP P Mcmillan -27 degrees MUSE GHP R Mcmillan -40 degrees MUSE GHP T Mcmillan 9 degrees MUSE GHP Specimen (Source) Anatomical Collection Method Collection Time Re ceived Time Location / / Volume Laterality 07/08/2017 3:07 PM SENIOR DATA INTEGRATION DEVELOPER Narrative MUSE GHP - 07/08/2017 4:25 PM SENIOR DATA INTEGRATION DEVELOPER Sinus rhythm with 1st degree A-V block [...] Address City/State/ZIP Code Phon e Number MUSE [facility] [address] [place] [address] documented in this encounter Visit Diagnoses Diagnosis Preoperative examination - Primary Preoperative examination, unspecified Cervical myelopathy (HRC) Cervical spondylosis with myelopathy Old myocardial infarction (HRC) Old myocardial infarction Chronic coronary artery disease (HRC) Coronary atherosclerosis of unspecified type of vessel, [place] or graft Aortic valve sclerosis (HRC) Aortic valve disorders Essential hypertension (HRC) Unspecified essential hypertension Recurrent major depressive disorder, in remission ([facility]) Hyperlipidemia, unspecified hyperlipidem ia type (HRC) Preoperative examination Preoperative examination, unspecified documented in this encounter Care Teams Pharmacy Clinical Coordinator Relationship Specialty Start Date End Date Allyson Pool PA-C PCP - General Physician Wood Scrap Handler 09/26/16 02/28/21 [address] [place] [id number] documented as of this encounter
--- OUTSIDE RECORDS SUMMARY | 2022-02-24 15:49 | XMS_ITS | Encounter Summary ---
:1935 Author Organization [employer] Address [address] [place] [address] Care Team Providers Name Role Phone Allyson Pool PA-C Primary Care Provider Encounter Details Date Type Department Care Team Description 07/05/2017 Initial Consult Specialty Center [address] [place] [facility] [address] [place] [address] [place] [address] [id number] Social History Tobacco Use Types Packs/Day Years [...] for Visit: Delivery of Hard Cervical Collar Crane [place] with extra pad set Patient was [...] receiveda copy of it. Daniel Martinez. 2898 RACT NEGOTIATOR documented in this encounter Plan of Treatment Not on filedocumented as of this encounter Visit Diagnoses Not on filedocumented in this encounter Care Teams Sand Carrier Relationship Specialty Start Date End Date Allyson Pool PA-C PCP - General Physician Employment Attorney 09/26/16 02/28/21 [address] [place] [id number] documented as of this encounter
--- OUTSIDE RECORDS SUMMARY | 2022-02-24 15:49 | XMS_ITS | Encounter Summary ---
:1935 Author Organization [employer] Address [address] [place] [address] Care Team Providers Name Role Phone Allyson Pool PA-C Primary Care Provider Reason for Visit Reason Comments UPDATE Encounter Details Date Type Department Care Team Description 05/28/2017 Telephone Specialty Center 393 1 Neurology Doreen Escobar, RN UPDATE 3931 [place], [place] [id number] Social History Tobacco Use Types Packs/Day Years Used Date Smoking Tobacco: Never Smokeless Tobacco: Never Alcohol Use Standard Drinks/Week Comments Yes 0 (1 standard drink = 0.6 oz pure alcoho l) rare occasions Sex Assigned at Date Recorded Not on file documented as of this encounter Nursing Notes Doreen Escobar RN - 05/28/2017 3:24 PM CST Updated Shaina. WAITER/WAITRESS BANQUET Jose Aldridge MD - 05/28/2017 3:14 PM CST Yes please, thanks for asking WAITER/WAITRESS BANQUET Doreen Escobar RN - 05/28/2017 3:02 PM CST Shaina from [employer] called requesting approval for f/u social work visit to have a care conference with patient and family to discuss electronic test technician planning for pt and . Okay to approve? WAITER/WAITRESS BANQUET documented in this encounter Plan of Treatment Not on filedocumented as of this encounter Visit Diagnoses Not on filedocumented in this encounter Care Teams Rn Care Transition Relationship Specialty Start Date End Date Allyson Pool PA-C PCP - General Physician Saw Filer 09/26/16 02/28/21 [address] [place] [id number] documented as of this encounter
--- OUTSIDE RECORDS SUMMARY | 2022-02-24 15:49 | XMS_ITS | Encounter Summary ---
:1935 Author Organization [facility] Address [address] [place] [address] Care Team Providers Name Role Phone Allyson Pool PA-C Primary Care Provider Reason for Visit Reason Comments Orders Needed Encounter Details Date Type Department Care Team Description 07/08/2017 Telephone Specialty Center 3931 Viridiana Ball RN Orders Needed Neurology 3931 [place], [place] [address] Social History Tobacco Use Types Packs/Day Years [...] order given. She will fax for signature. L ATTENDANT documented in this encounter Plan of Treatment Not on filedocumented as of this encounter Visit Diagnoses Not on filedocumented in this encounter Care Teams Casting Carrier Relationship Specialty Start Date End Date Allyson Pool PA-C PCP - General Physician Steward Racetrack 09/26/16 02/28/21 [address] [place] Do [id number] documented as of this encounter
--- OUTSIDE RECORDS SUMMARY | 2022-02-24 15:49 | XMS_ITS | Encounter Summary ---
:1935 Author Organization [employer] Address [address] [place] [address] Care Team Providers Name Role Phone Allyson Pool PA-C Primary Care Provider Encounter Details Date Type Department Care Team Description 07/08/2017 Lab Visit [facility] Preoperative examination [address] [place] [address] Social History Tobacco Use Types [...] PM Preoperative Result s for this PANEL OUTPATIENT PROGRAM COORDINATOR examination procedure are i n the results section. COMPLETE BLOOD STAT 07/08/2017 3:22 PM Preoperative Results for this COUNT-NO DIFF OUTPATIENT PROGRAM COORDINATOR examination procedure are in the results section. documented in this encounter Results CBC - Complete Blood Count-No Diff (07/08/2017 3:22 PM OUTPATIENT PROGRAM COORDINATOR) P athologist Signature White Blood Cell 7.0 [...] Volume Laterality 07/08/2017 3:22 PM 8 3:22 OUTPATIENT PROGRAM COORDINATOR PM OUTPATIENT PROGRAM COORDINATOR Narrative PN SOFT - 07/08/2017 3:25 PM OUTPATIENT PROGRAM COORDINATOR Performed at [facility], [address] [place] [address] CLIA number [id number] Annetta Ashby MD LAB_1 Performing Organization Address City/State/ZIP Code Phon e Number PN SOFT [address] [place] [address] (ABNORMAL) Basic Metabolic Panel (07/08/2017 3:22 PM OUTPATIENT PROGRAM COORDINATOR) athologist Signature Creatinine 0.80 0.55 - PN [...] Volume Laterality 07/08/2017 3:22 PM 8 4:59 OUTPATIENT PROGRAM COORDINATOR PM OUTPATIENT PROGRAM COORDINATOR Narrative PN SOFT - 07/08/2017 6:15 PM OUTPATIENT PROGRAM COORDINATOR Performed at [facility], [address] [place] [address] CLIA number [id number] Annetta Ashby MD LAB_1 Performing Organization Address City/State/ZIP Code Phon e Number PN SOFT [address] [place] [address] documented in this encounter Visit Diagnoses Diagnosis Preoperative examination Preoperative examination, unspecified documented in this encounter Care Teams Handle Turner Relationship Specialty Start Date End Date Allyson Pool PA-C PCP - General Physician Hand Surgeon 09/26/16 02/28/21 [address] [place] [id number] documented as of this encounter
--- OUTSIDE RECORDS SUMMARY | 2022-02-24 15:49 | XMS_ITS | Encounter Summary ---
:1935 Author Organization [employer] Address [address], [place] [address] Care Team Providers Name Role Phone Allyson Pool PA-C Primary Care Provider Reason for Visit Reason Comments WEAKNESS,ARM Procedure/Equipment (Routine) - Closed Specialty Diagnoses / Procedures Referred By Contact Refer red To Contact Diagnoses Left arm weakness Left hand weakness Jose Aldridge MD Procedures NEURO--EMG ELECTRICAL NERVE CONDUCTION STUDY [address] [facility] [address] [place] [address] Referral ID Status Reason Start Date Expiration Date Visits Requ ested Visits Authorized [id number] Closed 05/31/2017 08/30/2018 1 1 Encounter Details Date Type Department Care Team Description 06/26/2017 Procedure Visit Specialty Center 3931 Amparo Patiño, WEAKNESS,ARM Neurology 3931 [facility] 3931 [facility] [address] [address] [place], [place] [phone] [address] (Wo rk) Social History Tobacco Use Types [...] concern. Antonio Patiño M.D. Board Certified Electromyographer [phone] (pager) [facility] Department of Neurology [facility] Laboratory Nerve Conduction & EMG Report Full Name: Fidelia Vyas Gender: Female Date of : 1935 Visit Date: 06/26/2017 12:24 Age: 81 Years 7 Months Old Examining Physician: Haroon SR Nerve / Sites Rec. Site Onset Lat Peak Lat CENTERLESS GRINDER TENDER Amp PP Amp Segments Distance Peak Diff [...] None None None N N N N W MACHINE OPERATOR SINGLE SPINDLE documented in this encounter Plan of Treatment Not on filedocumented as of this encounter Visit Diagnoses Diagnosis Left arm weakness Other musculoskeletal symptoms referable to limbs Left hand weakness Muscle weakness (generalized) documented in this encounter Care Teams Sewage Treatment Plant Operator Relationship Specialty Start Date End Date Allyson Pool PA-C PCP - General Physician Blow Down Helper 09/26/16 02/28/21 [address] [place] [address] documented as of this encounter
--- OUTSIDE RECORDS SUMMARY | 2022-02-24 15:49 | XMS_ITS | Encounter Summary ---
:1935 Author Organization [employer] Address [address] [place] [address] Care Team Providers Name Role Phone Allyson Pool PA-C Primary Care Provider Reason for Visit Reason Comments Provider Orders for continued care Encounter Details Date Type Department Care Team Description 08/16/2017 Telephone [facility] Allyson Pool PA-C Provider Orders (for Medicine [address] [place] [address] continued care) [address] [place] [address] [place] [address] [phone] Social History Tobacco Use Types Packs/Day Years [...] Close encounter Specific Request(s): 1. Ginger from [facility] calling. Patient was DC'd today from TCU [...] - 08/16/2017 2:22 PM CDT Ginger from [facility] calling request to speak to nurse about getting clarification and verbal orders for continued care on this pt. Please advise. documented in this encounter Plan of Treatment Not on filedocumented as of this encounter Visit Diagnoses Not on filedocumented in this encounter Care Teams Lab Support Technician Relationship Specialty Start Date End Date Allyson Pool PA-C PCP - General Physician Head Teller 09/26/16 02/28/21 [address] [place] [address] Erin ESCALANTE Crocheter Hand 10/24/17 BORIS Desir [phone] documented as of this encounter
--- OUTSIDE RECORDS SUMMARY | 2022-02-24 15:50 | XMS_ITS | Encounter Summary ---
:1935 Author Organization [employer] Address [address] [place] [address] Care Team Providers Name Role Phone Allyson Pool PA-C Primary Care Provider Reason for Referral Consult/Transfer Care (Routine) - Closed Specialty Diagnoses / Procedures Referred By Contact Refer red To Contact Diagnoses Elevated serum protein level Allyson Pool PA-C [address] [place] [address] Referral ID Status Reason Start Date Expiration Date Visits Requ ested Visits Authorized [id number] Closed 11/06/2016 02/05/2018 1 1 Scheduling Instructions Your provider has recommended an appoint ment with [facility]. You may call [phone] to quincy edule your appointment. If you [...] Telephone Allyson Palomo PA-C RESULTS, TEST Medicine [address] [address] [place] [address] [place], [place] [address] [phone] Social History Tobacco Use Types Packs/Day Years [...] Primary documented in this encounter Care Teams Residence Hall Director Relationship Specialty Start Date End Date Allyson Pool PA-C PCP - General Physician Insole Cementer 09/26/16 02/28/21 [address] [place] [id number] documented as of this encounter
--- OUTSIDE RECORDS SUMMARY | 2022-02-24 15:50 | XMS_ITS | Encounter Summary ---
:1935 Author Organization [facility] Address [address] [place] [address] Care Team Providers Name Role Phone Allyson Pool PA-C Primary Care Provider Reason for Visit Procedure/Equipment (Routine) - Incomplete Specialty Diagnoses / Procedures Referred By Contact Refer red To Contact Diagnoses Mediastinal cyst Allyson Pool PA-C [place] [address] [place] [address] Referral ID Status Reason Start Date Expiration Date Visits V isits Requested Authorized [id number] Incomplete 05/15/2017 08/14/2018 1 1 Encounter Details Date Type Department Care Team Description 05/17/[address] Scan Allyson Pool PA-C Mediastinal cyst [address] [place] [address] [place] [address] [phone] (Wo rk) Social History Tobacco Use Types [...] PM Mediastinal cys t Results for this RESIDENTIAL SALES ASSOCIATE procedure are i n the results section. documented in this encounter Results CT Chest W IV Cont (05/17/2017 12:23 PM RESIDENTIAL SALES ASSOCIATE) Anatomical Region Laterality Modality Chest, Lung Computed Tomography Specimen (Source) Anatomical Collection Method Collection Time Re ceived Time Location / / Volume Laterality 05/17/2017 12:19 PM RESIDENTIAL SALES ASSOCIATE Impressions 05/17/2017 1:20 PM RESIDENTIAL SALES ASSOCIATE IMPRESSION: ??Benign appearing mediastinal/pericardial cyst. Narrative 05/17/2017 1:20 PM RESIDENTIAL SALES ASSOCIATE COMPARISON: ??None. TECHNIQUE: ??Images were obtained throug [...] (ISOVUE-300) 61 % Given 05/17/2017 12:45 PM RESIDENTIAL SALES ASSOCIATE 100 mL injection 100 mL 100 mL, Intravenous, ONCE, On Sat05/17/17 at 1245, For 1 dose sodium chloride 0.9% injection 10 mL Given 05/17/2017 12:45 PM RESIDENTIAL SALES ASSOCIATE 10 mL 10 mL, Intravenous, ONCE, On Sat05/17/17 at 1245, For 1 dose documented in this encounter Care Teams Director Of Sales And Marketing Relationship Specialty Start Date End Date Allyson Pool PA-C PCP - General Physician Music Arranger 09/26/16 02/28/21 [address] [place] [id number] documented as of this encounter
--- OUTSIDE RECORDS SUMMARY | 2022-02-24 15:50 | XMS_ITS | Encounter Summary ---
:1935 Author Organization [employer] Address [address] [place] [address] Care Team Providers Name Role Phone Allyson Pool PA-C Primary Care Provider Reason for Visit Reason Onset Date Comments Patient Calling Back 11/06/2016 Encounter Details Date Type Department Care Team Description 11/06/2016 Telephone [facility] Allyson Pool PA-C Patient Calling Back [facility] [address] [facility] [address] [place], [place] [address] [place] [address] [phone] Social History Tobacco Use Types Packs/Day Years [...] filedocumented in this encounter Care Teams Electrical Technician Relationship Specialty Start Date End Date Allyson Pool PA-C PCP - General Physician Landscape Artist 09/26/16 02/28/21 [address] [place] [id number] documented as of this encounter
--- OUTSIDE RECORDS SUMMARY | 2022-02-24 15:50 | XMS_ITS | Encounter Summary ---
:1935 Author Organization [employer] Address [address], [place] [address] Care Team Providers Name Role Phone Allyson Pool PA-C Primary Care Provider Reason for Referral Procedure/Equipment (Routine) - Incomplete Specialty Diagnoses / Procedures Referred By Contact Refer red To Contact Diagnoses Abnormal MRI Jose Aldridge MD Procedures MR Brain W/WO IV Cont [address] [facility] [address] [place] [address] Referral ID Status Reason Start Date Expiration Date Visits V isits Requested Authorized [id number] Incomplete 03/28/2017 06/27/2018 1 1 AT INFORMATION CENTER OFFICER Reason for Visit Reason Comments MRI Results Encounter Details Date Type Department Care Team Description 03/28/2017 Telephone [facility] 393 1 Neurology Doreen Escobar, RN MRI Results [address] [place] [address] Social History Tobacco Use Types [...] into pharmacy for sedation for MRI scan. AT INFORMATION CENTER OFFICER Doreen Escobar RN - 03/28/2017 11:29 AM CST ----- Message from Jose Aldridge MD sent at 03/28/2017 8:31 AM COMBAT INFORMATION CENTER OFFICER ----- Please let pt/ know that her [...] clinic in the next 3-6 months. Thanks. AT INFORMATION CENTER OFFICER documented in this encounter Plan of Treatment Not on filedocumented as of this encounter Results MR Brain W/WO IV Cont (05/17/2017 1:27 PM COMBAT INFORMATION CENTER OFFICER) Anatomical Region Laterality Modality Head Magnetic Resonance Specimen (Source) Anatomical Collection Method Collection Time Re ceived Time Location / / Volume Laterality 05/17/2017 12:51 PM COMBAT INFORMATION CENTER OFFICER Impressions 05/17/2017 1:50 PM COMBAT INFORMATION CENTER OFFICER IMPRESSION: ?? 1. ??Unchanged small 8 mm [...] lakes or hemangiomas. Narrative 05/17/2017 1:50 PM COMBAT INFORMATION CENTER OFFICER INDICATION: f/u abnormal MRI ?? TECHNIQUE: ??MRI of the head with and wi thout contrast using tumor protocol, 10 mL GADOBUTROL 1 MMOL/ML IV SOLN. COMPARISON: Brain MRI 03/27/2017 FINDINGS: ??Normal diffusion. 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 Unchanged lgqf-cx-cweyugvb scattered small T2 and FLAIR hyperintense foci [...] along the superior left cerebellar hemisphere. Unchanged bfkx-db-vmpeoqpy scattered small T2 and FLAIR hyperintense foci [...] structure documented in this encounter Care Teams Project Engineering Director Relationship Specialty Start Date End Date Allyson Pool PA-C PCP - General Physician Content Development Specialist 09/26/16 02/28/[address] [place] [address] documented as of this encounter
--- OUTSIDE RECORDS SUMMARY | 2022-02-24 15:50 | XMS_ITS | Encounter Summary ---
:1935 Author Organization [email or web address] Address [address] [place] [address] Care Team Providers Name Role Phone Allyson Pool PA-C Primary Care Provider Encounter Details Date Type Department Care Team Description 11/01/2016 Lab Visit [facility] Hypocalcemia [address] [place] [address] Social History Tobacco Use Types [...] Serum (Immuno ELP) (11/01/2016 9:04 AM CDT) [facility] Method Time Signature Immunofixation SEE BELOW PN SOFT Comment: Immunofixation shows an IgG Elyssa pa monoclonal protein. Signed out by SEE BELOW PN SOFT Comment: Isaias Peres MD Performed at [facility], [address] [place] [address] CLIA Number [id number] Specimen Anatomical Collection Method Collection Time Receive d Time (Source) Location / / Volume Laterality 11/01/2016 9:04 AM 7 CDT 12:28 PM CDT Allyson Pool PA-C LAB_1 Performing Organization Address City/State/ZIP Code Phon e Number PN SOFT [address] [place] [address] Differential (11/01/2016 9:04 AM CDT) athologist Signature [...] - 11/01/2016 9:17 AM CDT Performed at [facility], [facility] [address] [place] [address] CLIA number [id number] Allyson Pool PA-C LAB_1 Performing Organization Address City/[facility] Phon e Number PN SOFT [address] [place] [address] Liver Panel(Hepatic Function Panel) (11/01/2016 9:04 AM [...] - 11/01/2016 10:00 AM CDT Performed at [facility], [facility] [address] [place] [address] CLIA number [id number] Allyson Pool PA-C LAB_1 Performing Organization Address City/[facility] Phon e Number PN SOFT [address] [place] [address] (ABNORMAL) Protein ELP (Serum) (11/01/2016 9:04 AM CDT) P athologist Signature Total Protein 7.3 6.4 - 8.3 PN SOFT g/dl Comment: Performed at [facility], [address] [place] [address] ??[address] Albumin 4.1 3.4 - 4.8 g/dl PN SOFT Alpha 1 0.3 0.2 - 0.5 g/dl PN SOFT Alpha 2 0.8 0.5 - 1.1 g/dl PN SOFT Beta 0.8 0.6 - 1.1 g/dl PN SOFT Gamma 1.4 0.7 - 1.6 g/dl PN SOFT Monoclonal Joaquin 0.5 (H) 0.0 g/dl PN SOFT Comment: IgG [place] Interpretation SEE BELOW PN SOFT Comment: A monoclonal protein has been detected b y serum protein electrophoresis. Signed out by SEE BELOW PN SOFT Comment: Isaias Peres MD Performed at [facility], [address] [place] [address] ??[address] CLIA Number [id number] Specimen Anatomical Collection Method Collection Time Receive d Time (Source) Location / / Volume Laterality 11/01/2016 9:04 AM 7 CDT 12:28 PM CDT Allyson Pool PA-C LAB_1 Performing Organization Address City/[facility] Phon e Number PN SOFT [address] [place] [address] (ABNORMAL) Vitamin D 25-Hydroxy, Total (11/01/2016 9:04 [...] - 11/01/2016 1:26 PM CDT Performed at [address] [address] CLIA number [id number] Allyson Pool PA-C LAB_1 Performing Organization Address [facility] Phon e Number PN SOFT [address] [place] [address] Phosphorus (11/01/2016 9:04 AM CDT) athologist Signature Phosphorus Serum 3.3 2.3 - 4.7 PN SOFT mg/dL Specimen Anatomical Collection Method Collection Time Receive d Time (Source) Location / / Volume Laterality 11/01/2016 9:04 AM 7 9:04 CDT AM CDT Narrative PN SOFT - 11/01/2016 10:00 AM CDT Performed at [facility], [address] [place] [address] CLIA number [id number] Allyson Pool PA-C LAB_1 Performing Organization Address City/[facility] Phon e Number PN SOFT [address] [place] [address] (ABNORMAL) Intact PTH (11/01/2016 9:04 AM CDT) athologist Signature PTH 116 (H) 10 - 100 PN SOFT pg/mL Specimen Anatomical Collection Method Collection Time Receive d Time (Source) Location / / Volume Laterality 11/01/2016 9:04 AM 7 6:26 CDT PM CDT Narrative PN SOFT - 11/01/2016 7:35 PM CDT Performed at [address] [address] CLIA number [id number] Allyson Pool PA-C LAB_1 Performing Organization Address City/[facility] Phon e Number PN SOFT [address] [place] [address] Vitamin B-12 (11/01/2016 9:04 AM CDT) athologist Signature Vitamin B12 288 213 - 816 PN SOFT pg/dL Specimen Anatomical Collection Method Collection Time Receive d Time (Source) Location / / Volume Laterality 11/01/2016 9:04 AM 7 CDT 12:26 PM CDT Narrative PN SOFT - 11/01/2016 1:53 PM CDT Performed at [address] [address] CLIA number [id number] Allyson Pool PA-C LAB_1 Performing Organization Address [facility]/ZIP Code Phon e Number PN SOFT [address] [place] [address] TSH with Free T4 (if TSH Abnormal) (11/01/2016 9:04 AM CDT) athologist Signature Thyroid 1.45 0.30 - PN SOFT Stimulating 4.50 Hormone uIU/mL Specimen Anatomical Collection Method Collection Time Receive d Time (Source) Location / / Volume Laterality 11/01/2016 9:04 AM 7 CDT 12:26 PM CDT Narrative PN SOFT - 11/01/2016 2:33 PM CDT Performed at [address] [address] CLIA number [id number] Allyson Pool PA-C LAB_1 Performing Organization Address [facility] Code Phon e Number PN SOFT [address] [place] [address] Magnesium (11/01/2016 9:04 AM CDT) athologist [facility] Magnesium 2.2 1.6 - 2.6 PN SOFT mg/dL Specimen Anatomical Collection Method Collection Time Receive d Time (Source) Location / / Volume Laterality 11/01/2016 9:04 AM 7 9:04 CDT AM CDT Narrative PN SOFT - 11/01/2016 10:00 AM CDT Performed at [facility], [address] [place] [address] CLIA number [id number] Allyson Pool PA-C LAB_1 Performing Organization Address City/[facility]/ZIP [facility] Phon e Number PN SOFT [address] [place] [address] Basic Metabolic Panel (11/01/2016 9:04 AM CDT) [...] - 11/01/2016 10:00 AM CDT Performed at [facility], [address] [place] [address] CLIA number [id number] Allyson Pool PA-C LAB_1 Performing Organization Address City/State/ZIP Code Phon e Number PN SOFT [address] [place] [address] Complete Blood Count W/Diff (11/01/2016 9:04 AM [...] - 11/01/2016 9:17 AM CDT Performed at [facility], [address] [facility], [place] [address] CLIA number [id number] Allyson Pool PA-C LAB_1 Performing Organization Address City/State/ZIP Code Phon e Number PN SOFT [address] [place] [address] documented in this encounter Visit Diagnoses Diagnosis Hypocalcemia documented in this encounter Care Teams Restorative Coordinator Relationship Specialty Start Date End Date Allyson Pool PA-C PCP - General Physician Hybrid Corn Breeder 09/26/16 02/28/[address] [place] [address] documented as of this encounter
--- OUTSIDE RECORDS SUMMARY | 2022-02-24 15:50 | XMS_ITS | Encounter Summary ---
:1935 Author Organization [employer] Address [address] [place] [address] Care Team Providers Name Role Phone Allyson Pool PA-C Primary Care Provider Reason for Visit Reason Comments [facility] [place] Encounter Details Date Type Department Care Team Description 05/07/2017 Telephone [facility]ty [facility] [address] Doreen Escobar, RN [facility] Neurology [address] [place], [place] [address] Social History Tobacco Use Types Packs/Day Years Used Date Smoking Tobacco: Never Smokeless Tobacco: Never Alcohol Use Standard Drinks/Week Comments Yes 0 (1 standard drink = 0.6 oz pure alcoho l) rare occasions Sex Assigned at Date Recorded Not on file documented as of this encounter Nursing Notes Doreen Escobar RN - 05/07/2017 12:23 PM CST Updated homecare nurse. CLEANER HELPER Jose Aldridge MD - 05/07/2017 11:55 AM CST Yes this is fine, thanks CLEANER HELPER Doreen Escobar RN - 05/07/2017 11:01 AM [...] PT/OT eval and treat. Okay to order? CLEANER HELPER documented in this encounter Plan of Treatment Not on filedocumented as of this encounter Visit Diagnoses Not on filedocumented in this encounter Care Teams Production Inspector Relationship Specialty Start Date End Date Allyson Pool PA-C PCP - General Physician Dough Scaler And Mixer 09/26/16 02/28/21 [address] [place] [id number] documented as of this encounter
--- OUTSIDE RECORDS SUMMARY | 2022-02-24 15:50 | XMS_ITS | Encounter Summary ---
:1935 Author Organization [employer] Address [address] [place] [address] Care Team Providers Name Role Phone Allyson Pool PA-C Primary Care Provider Reason for Visit Reason Comments Ultrasound Results Thyroid Encounter Details Date Type Department Care Team Description 05/17/2017 Telephone [facility] Allyson Pool PA-C Ultrasound Results Medicine [address] [facility] (Thyroid) [address] [place], [place] [address] [place] [address] [phone] Social History Tobacco Use Types Packs/Day Years [...] pt of her CT scan results. OR MARKETING ENGINEER Allyson Pool PA-C - 05/17/2017 1:15 PM [...] Allyson Pool PA-C 1:16 PM 05/17/2017 OR MARKETING ENGINEER documented in this encounter Plan of [...] - 12/09/2017 1:47 PM CDT Performed at [place] [address] [place] [address] CLIA number [id number] Allyson Pool PA-C LAB_1 Performing Organization Address City/State/ZIP Code Phon e Number SOFT [address] [place] [address] documented in this encounter Visit Diagnoses Diagnosis Thyroid nodule (HRC) - Primary Nontoxic uninodular goiter Thyroid nodule (HRC) Nontoxic uninodular goiter documented in this encounter Care Teams Four Roll Calender Operator Relationship Specialty Start Date End Date Allyson Pool PA-C PCP - General Physician Neon Tube Bender 09/26/16 02/28/21 [address] [place] [id number] documented as of this encounter
--- OUTSIDE RECORDS SUMMARY | 2022-02-24 15:50 | XMS_ITS | Encounter Summary ---
:1935 Author Organization [employer] Address [address] [place] [address] Care Team Providers Name Role Phone Allyson Pool PA-C Primary Care Provider Encounter Details Date Type Department Care Team Description 12/05/2016 Lab Visit [facility] Vitamin D deficiency [address] [place] [address] Social History Tobacco Use Types [...] - 12/05/2016 9:54 PM CDT Performed at [address] [address] CLIA number [id number] Allyson Pool PA-C LAB_1 Performing Organization Address City/[facility] Phon e Number PN SOFT [address] [place] [address] Calcium (12/05/2016 4:03 PM CDT) athologist Signature Calcium 9.1 8.4 - 10.2 PN SOFT mg/dL Specimen Anatomical Collection Method Collection Time Receive d Time (Source) Location / / Volume Laterality 12/05/2016 4:03 PM 201 7 4:02 CDT PM CDT Narrative PN SOFT - 12/05/2016 4:24 PM CDT Performed at [facility], [address] [place] [address] CLIA number [id number] Allyson Pool PA-C LAB_1 Performing Organization Address [facility] Phon e Number PN SOFT [address] [place] [address] documented in this encounter Visit Diagnoses Diagnosis Vitamin D deficiency (HRC) Unspecified vitamin D deficiency documented in this encounter Care Teams Rod Filler Relationship Specialty Start Date End Date Allyson Pool PA-C PCP - General Physician Acct Exec 09/26/16 02/28/[address] [place] [address] documented as of this encounter
--- OUTSIDE RECORDS SUMMARY | 2022-02-24 15:50 | XMS_ITS | Encounter Summary ---
:1935 Author Organization [employer] Address [address] [place] [address] Care Team Providers Name Role Phone Allyson Pool PA-C Primary Care Provider Reason for Visit Reason Onset Date Comments RESULTS, TEST 11/06/2016 Vitamin D level Encounter Details Date Type Department Care Team Description 11/06/2016 Telephone [facility] Allyson Pool PA-C RESULTS, TEST (Vitamin Medicine [address] D level) [address] [place] [address] [place] [address] [phone] Social History Tobacco Use Types Packs/Day Years [...] Pt verbalized understanding. Pt stated she will continuous pickling line pickler the Rx and start taking the Ergocalciferol [...] Vitamin D 25-Hydroxy, Total (05/24/2017 2:23 PM MILL ORDER SCHEDULER) athologist Signature Vitamin D 25 Oh 28 20 - 80 PN SOFT ng/mL Comment: Deficiency = <20 Adequate ??= 20-29 Preferred = 30-50 Uncertain safety = 51-80 High = >80 Specimen Anatomical Collection Method Collection Time Receive d Time (Source) Location / / Volume Laterality 05/24/2017 2:23 PM 8 6:12 MILL ORDER SCHEDULER PM MILL ORDER SCHEDULER Narrative PN SOFT - 05/24/2017 7:32 PM MILL ORDER SCHEDULER Performed at [address] [address] CLIA number [id number] Allyson Pool PA-C LAB_1 Performing Organization Address City/State/ZIP Code Phon e Number PN SOFT [address] [place] [address] Intact PTH (12/05/2016 4:03 PM CDT) athologist Signature PTH 83 10 - 100 PN SOFT pg/mL Specimen Anatomical Collection Method Collection Time Receive d Time (Source) Location / / Volume Laterality 12/05/2016 4:03 PM 7 9:11 CDT PM CDT Narrative PN SOFT - 12/05/2016 9:54 PM CDT Performed at [address] [address] CLIA number [id number] Allyson Pool PA-C LAB_1 Performing Organization Address City/State/ZIP Code Phon e Number PN SOFT [address] [place] [address] [phone] Calcium (12/05/2016 4:03 PM CDT) athologist Signature Calcium 9.1 8.4 - 10.2 PN SOFT mg/dL Specimen Anatomical Collection Method Collection Time Receive d Time (Source) Location / / Volume Laterality 12/05/2016 4:03 PM 201 7 4:02 CDT PM CDT Narrative PN SOFT - 12/05/2016 4:24 PM CDT Performed at [facility], [address] [place] [address] CLIA number [id number] Allyson Pool PA-C LAB_1 Performing Organization Address City/[facility] Phon e Number PN SOFT [address] [place] [address] [phone] documented in this encounter Visit Diagnoses Diagnosis Vitamin D deficiency (HRC) - Primary Unspecified vitamin D deficiency Vitamin D deficiency (HRC) Unspecified vitamin D deficiency Vitamin D deficiency (HRC) Unspecified vitamin D deficiency documented in this encounter Care Teams Weblogic Developer Relationship Specialty Start Date End Date Allyson Pool PA-C PCP - General Physician Flame Gouger 09/26/16 02/28/[address] [place] [id number] documented as of this encounter
--- OUTSIDE RECORDS SUMMARY | 2022-02-24 15:50 | XMS_ITS | Encounter Summary ---
:1935 Author Organization [employer] Address [address] [place] [address] Care Team Providers Name Role Phone Allyson Pool PA-C Primary Care Provider Encounter Details Date Type Department Care Team Description 12/05/2016 Lab Visit [facility] Elevated serum protein [address] [place] [address] Social History Tobacco Use Types [...] (12/05/2016 4:03 PM CDT) P athologist Signature [place] Free 3.63 (H) 0.33 - PN SOFT Light Chains 1.94 mg/dl Lambda Free 1.73 0.57 - PN SOFT Light Chains 2.63 mg/dl [place]/Lambda 2.10 (H) 0.26 - PN SOFT Ratio Free 1.65 Light Chains Comment: Performed at [facility], [address] ??[address] CLIA Number [id number] Specimen Anatomical Collection Method Collection Time Receive d Time (Source) Location / / Volume Laterality 12/05/2016 4:03 PM 7 9:23 CDT PM CDT Marlys Luna [facility] LAB_1 Performing Organization Address [facility] Phon e Number PN SOFT [address] [place] [address] IgA, Serum - today (12/05/2016 4:03 PM CDT) athologist Signature Immunoglobulin A 239 69 - 517 PN SOFT mg/dL Specimen Anatomical Collection Method Collection Time Receive d Time (Source) Location / / Volume Laterality 12/05/2016 4:03 PM 7 9:20 CDT PM CDT Narrative PN SOFT - 12/05/2016 11:55 PM CDT Performed at [address] [address] CLIA number [id number] Marlys Luna [facility] LAB_1 Performing Organization Address [facility] Phon e Number PN SOFT [address] [place] [address] IgM - today (12/05/2016 4:03 PM CDT) athologist Signature Immunoglobulin M 96 33 - 293 PN SOFT mg/dL Specimen Anatomical Collection Method Collection Time Receive d Time (Source) Location / / Volume Laterality 12/05/2016 4:03 PM 7 9:20 CDT PM CDT Narrative PN SOFT - 12/05/2016 11:55 PM CDT Performed at [address] [address] CLIA number [id number] Marlys Rocherusty Cheryl [facility] LAB_1 Performing Organization Address [facility] Phon e Number PN SOFT [address] [place] [address] [phone] IgG - today (12/05/2016 4:03 PM CDT) athologist Signature Immunoglobulin G 1,342 552 - PN SOFT 1,631 mg/dL Specimen Anatomical Collection Method Collection Time Receive d Time (Source) Location / / Volume Laterality 12/05/2016 4:03 PM 201 7 9:20 CDT PM CDT Narrative PN SOFT - 12/05/2016 11:55 PM CDT Performed at [address] [address] CLIA number [id number] Marlys Rochefrancescarome DelgadilloCheryl [facility] LAB_1 Performing Organization Address [facility] Phon e Number PN SOFT [address] [place] [address] [phone] documented in this encounter Visit Diagnoses Diagnosis Elevated serum protein level documented in this encounter Care Teams Supervisor Coating Relationship Specialty Start Date End Date Allyson Pool PA-C PCP - General Physician Pre Sales Technical Consultant 09/26/16 02/28/21 [address] [place] [address] documented as of this encounter
--- OUTSIDE RECORDS SUMMARY | 2022-02-24 15:50 | XMS_ITS | Encounter Summary ---
:1935 Author Organization [employer] Address [address] [place] [address] Care Team Providers Name Role Phone Allyson Pool PA-C Primary Care Provider Reason for Referral Consult/Transfer Care (Routine) - Closed Specialty Diagnoses / Procedures Referred By Contact Refer red To Contact Diagnoses Memory loss Sensory neuronopathy Allyson Pool PA-C [address] [place] [address] Referral ID Status Reason Start Date Expiration Date Visits Requ ested Visits Authorized [id number] Closed 01/28/2017 04/29/2018 1 1 Scheduling Instructions Your provider has recommended an appoint ment with [facility]. You may call [phone] to schedule your appoi ntment. If you do not schedule an appointment within the next 1 to 3 business days, we will call you to help arrange your appointment. We suggest you call your [employer] insurance company about your coverage and benefits for this appointment. Reason for Visit Reason Onset Date Comments RESULTS, TEST 01/28/2017 Encounter Details Date Type Department Care Team Description 01/28/2017 Telephone Allyson Palomo PA-C RESULTS, TEST Medicine [address] [address] [place] [address] [place] [address] [phone] Social History Tobacco Use Types Packs/Day Years [...] pt to call the clinic back at [phone] to receive the message below and to get Neurology scheduling [phone]. 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
--- OUTSIDE RECORDS SUMMARY | 2022-02-24 15:50 | XMS_ITS | Encounter Summary ---
:1935 Author Organization [employer] Address [address] [place] [address] Care Team Providers Name Role Phone Allyson Pool PA-C Primary Care Provider Reason for Visit Reason Comments Home Care Update Encounter Details Date Type Department Care Team Description 05/09/2017 Telephone Specialty Center [address] Doreen Escobar, church musician Update Neurology [address] [place], [place] [id number] Social History Tobacco Use Types Packs/Day Years Used Date Smoking Tobacco: Never Smokeless Tobacco: Never Alcohol Use Standard Drinks/Week Comments Yes 0 (1 standard drink = 0.6 oz pure alcoho l) rare occasions Sex Assigned at Date Recorded Not on file documented as of this encounter Nursing Notes Doreen Escobar RN - 05/09/2017 1:34 PM CST LM with verbal orders as above. TEST LEAD Jose Aldridge MD - 05/09/2017 1:28 PM CST Yes this is fine TEST LEAD Doreen Escobar RN - 05/09/2017 1:22 PM CST Kenzie from [facility] called requesting continuation of services for OT for cognitive evaluation, home safety and lower extremity strengthening. She is also requesting a social work eval. Okay to order? TEST LEAD documented in this encounter Plan of Treatment Not on filedocumented as of this encounter Visit Diagnoses Not on filedocumented in this encounter Care Teams Lead Electrician Relationship Specialty Start Date End Date Allyson Pool PA-C PCP - General Physician Gang Tailer 09/26/16 02/28/[address] [place] [address] documented as of this encounter
--- OUTSIDE RECORDS SUMMARY | 2022-02-24 15:50 | XMS_ITS | Encounter Summary ---
:[address] [facility] Address [address] [address] Care Team Providers Name Role Phone Allyson Pool PA-C Primary Care Provider Reason for Visit Reason Comments CONSULT Consult/Transfer Care (Routine) - Closed Specialty Diagnoses / Procedures Referred By Contact Refer red To Contact Diagnoses Elevated serum protein level Allyson Pool PA-C [address] [place] [address] Referral ID Status Reason Start Date Expiration Date Visits Requ ested Visits Authorized [id number] Closed 11/06/2016 02/05/2018 1 1 Encounter Details Date Type Department Care Team Description 12/05/2016 Initial Consult [facility] Margarita Luna, Elevated serum Care at [place] Marlys Luciano i, MBBS protein level [facility] [address] [place] [address] (Primary Dx) [address] [place] [address] [place], [place] [phone] [address] Social History Tobacco Use Types Packs/Day Years [...] 12:00 PM CDT NAME: WAQAR LUNDBERG MR#: [id number] CSN: [id number] AUTHENTICATING CLINICIAN: MILADIS Dennis CONFIRM #: [id number] LOC: 3704 CLINIC CONSULTATION DATE OF CONSULTATION: [...] her satisfaction today. CA:MEDQ C: CONFIRM #: [id number] documented in this encounter Plan of Treatment Not on filedocumented as of this encounter Results IgM - in 6 months (05/24/2017 2:23 PM REPAIRER EVAPORATOR) athologist Signature Immunoglobulin M 90 33 - 293 PN SOFT mg/dL Specimen Anatomical Collection Method Collection Time Receive d Time (Source) Location / / Volume Laterality 05/24/2017 2:23 PM 8 6:12 REPAIRER EVAPORATOR PM REPAIRER EVAPORATOR Narrative PN SOFT - 05/24/2017 6:41 PM REPAIRER EVAPORATOR Performed at [address] [address] CLIA number [id number] M[facility]_1 Performing Organization Address [facility] Phon e Number PN SOFT [address] [place] [address] IgG - in 6 months (05/24/2017 2:23 PM REPAIRER EVAPORATOR) athologist Signature Immunoglobulin G 1,332 552 - PN SOFT 1,631 mg/dL Specimen Anatomical Collection Method Collection Time Receive d Time (Source) Location / / Volume Laterality 05/24/2017 2:23 PM 8 6:12 REPAIRER EVAPORATOR PM REPAIRER EVAPORATOR Narrative PN SOFT - 05/24/2017 6:41 PM REPAIRER EVAPORATOR Performed at [address] [address] CLIA number [id number] M[facility] Performing Organization Address [facility] Phon e Number PN SOFT [address] [place] [address] IgA, Serum - in 6 months (05/24/2017 2:23 PM REPAIRER EVAPORATOR) athologist Signature Immunoglobulin A 252 69 - 517 PN SOFT mg/dL Specimen Anatomical Collection Method Collection Time Receive d Time (Source) Location / / Volume Laterality 05/24/2017 2:23 PM 8 6:12 REPAIRER EVAPORATOR PM REPAIRER EVAPORATOR Narrative PN SOFT - 05/24/2017 6:41 PM REPAIRER EVAPORATOR Performed at [address] [address] CLIA number [id number] [facility] Performing Organization Address [facility]/ZIP Code Phon e Number PN SOFT [address] [place] [address] (ABNORMAL) Free Light Chains, Serum - in 6 months (05/24/2017 2:23 PM REPAIRER EVAPORATOR) athologist Signature [place] Free 2.59 (H) 0.33 - PN SOFT Light Chains 1.94 mg/dl Lambda Free 1.73 0.57 - PN SOFT Light Chains 2.63 mg/dl [place]/Lambda 1.50 0.26 - PN SOFT Ratio Free 1.65 Light Chains Comment: Performed at [facility], [address] [place] [address] CLIA Number [id number] Specimen Anatomical Collection Method Collection Time Receive d Time (Source) Location / / Volume Laterality 05/24/2017 2:23 PM 8 6:14 REPAIRER EVAPORATOR PM REPAIRER EVAPORATOR [facility] Performing Organization Address City/[facility] Code Phon e Number PN SOFT [address] [place] [address] (ABNORMAL) Electrophoresis Protein, Serum - in 6 months (05/24/2017 2:23 PM REPAIRER EVAPORATOR) athologist Signature Total Protein 7.1 6.4 - 8.3 PN SOFT g/dl Comment: Performed at [facility], [address] [place] [address] ??[address] Albumin 3.8 3.4 - 4.8 g/dl PN SOFT Alpha 1 0.3 0.2 - 0.5 g/dl PN SOFT Alpha 2 0.9 0.5 - 1.1 g/dl PN SOFT Beta 0.8 0.6 - 1.1 g/dl PN SOFT Gamma 1.2 0.7 - 1.6 g/dl PN SOFT Monoclonal Joaquin 0.5 (H) 0.0 g/dl PN SOFT Comment: IgG [place] Interpretation SEE BELOW PN SOFT Comment: A monoclonal protein has been detected b y serum protein electrophoresis. Signed out by SEE BELOW PN SOFT Comment: [facility] Performed at [facility], [address] [place] [address] [place] ??[address] CLIA Number [id number] Specimen Anatomical Collection Method Collection Time Receive d Time (Source) Location / / Volume Laterality 05/24/2017 2:23 PM 8 6:12 REPAIRER EVAPORATOR PM REPAIRER EVAPORATOR Marlys Rochefrancescarome DelgadilloCheryl [facility] LAB_1 Performing Organization Address [facility] Code Phon e Number PN SOFT [address] [place] [address] Oncology Profile - in 6 months (05/24/2017 2:23 PM REPAIRER EVAPORATOR) Patholo gist Method Time Signature Aspartate 25 [...] Volume Laterality 05/24/2017 2:23 PM 8 2:22 REPAIRER EVAPORATOR PM REPAIRER EVAPORATOR Narrative PN SOFT - 05/24/2017 2:44 PM REPAIRER EVAPORATOR Performed at [facility], [address] [place] [address] CLIA number [id number] Marlys Moore Margarita [place] LAB_1 Performing Organization Address [facility] Phon e Number PN SOFT [address] [place] [address] Complete Blood Count W/Diff - in 6 months (05/24/2017 2:23 PM REPAIRER EVAPORATOR) P athologist Signature White Blood Cell 6.7 [...] Volume Laterality 05/24/2017 2:23 PM 8 2:23 REPAIRER EVAPORATOR PM REPAIRER EVAPORATOR Narrative PN SOFT - 05/24/2017 2:25 PM REPAIRER EVAPORATOR Performed at [facility], [address] [place] [address] CLIA number [id number] Marlys Luna [facility] LAB_1 Performing Organization Address [facility] Phon e Number PN SOFT [address] [place] [address] (ABNORMAL) Free Light Chains, Serum - today (12/05/2016 4:03 PM CDT) athologist Signature [place] Free 3.63 (H) 0.33 - PN SOFT Light Chains 1.94 mg/dl Lambda Free 1.73 0.57 - PN SOFT Light [place]ains 2.63 mg/dl [place]/Lambda 2.10 (H) 0.26 - PN SOFT Ratio Free 1.65 Light Chains Comment: Performed at [facility], [address] [place] [address] ??[address] CLIA Number [id number] Specimen Anatomical Collection Method Collection Time Receive d Time (Source) Location / / Volume Laterality 12/05/2016 4:03 PM 7 9:23 CDT PM CDT Marlys Luna [facility]_1 Performing Organization Address [facility] Phon e Number PN SOFT [address] [place] [address] IgA, Serum - today (12/05/2016 4:03 PM CDT) athologist Signature Immunoglobulin A 239 69 - 517 PN SOFT mg/dL Specimen Anatomical Collection Method Collection Time Receive d Time (Source) Location / / Volume Laterality 12/05/2016 4:03 PM 7 9:20 CDT PM CDT Narrative PN SOFT - 12/05/2016 11:55 PM CDT Performed at [place] [address] [place] [address] CLIA number [id number] Marlys [facility]_1 Performing Organization Address [facility] Phon e Number PN SOFT [address] [place] [address] IgM - today (12/05/2016 4:03 PM CDT) athologist Signature Immunoglobulin M 96 33 - 293 PN SOFT mg/dL Specimen Anatomical Collection Method Collection Time Receive d Time (Source) Location / / Volume Laterality 12/05/2016 4:03 PM 7 9:20 CDT PM CDT Narrative PN SOFT - 12/05/2016 11:55 PM CDT Performed at [address] [address] CLIA number [id number] M[facility]_1 Performing Organization Address [facility] Phon e Number PN SOFT [address] [place] [address] IgG - today (12/05/2016 4:03 PM CDT) athologist Signature Immunoglobulin G 1,342 552 - PN SOFT 1,631 mg/dL Specimen Anatomical Collection Method Collection Time Receive d Time (Source) Location / / Volume Laterality 12/05/2016 4:03 PM 7 9:20 CDT PM CDT Narrative PN SOFT - 12/05/2016 11:55 PM CDT Performed at [facility] [place] [address] [place] [address] CLIA number [id number] M[facility]1 Performing Organization Address [facility]/State/ZIP Code Phon e Number PN SOFT [address] [place] [address] [phone] documented in this encounter Visit Diagnoses Diagnosis Elevated serum protein level - Primary Elevated serum protein level Elevated serum protein level documented in this encounter Care Teams Cottage Attendant Relationship Specialty Start Date End Date Allyson Pool PA-C PCP - General Physician Cook Dinner 09/26/16 02/28/21 [address] [place] [id number] documented as of this encounter
--- OUTSIDE RECORDS SUMMARY | 2022-02-24 15:50 | XMS_ITS | Encounter Summary ---
:1935 Author Organization [employer] Address [address] [place] [address] Care Team Providers Name Role Phone Allyson Pool PA-C Primary Care Provider Encounter Details Date Type Department Care Team Description 05/24/2017 Lab Visit [facility] Elevated serum protein [address] [place] [address] Social History Tobacco Use Types [...] 2:23 PM Elevated serum Results for this CUFF SETTER protein level procedure are in the results section. ONCOLOGY PROFILE STAT 05/24/2017 2:23 PM Elevated serum Res ults for this CUFF SETTER protein level procedure are in the results section. FREE LIGHT CHAINS, STAT 05/24/2017 2:23 PM Elevated serum R esults for this SERUM CUFF SETTER protein level procedure are in the results section. COMPLETE BLOOD STAT 05/24/2017 2:23 PM Elevated serum Resul ts for this COUNT-W/DIFF CUFF SETTER protein level procedure are in the results section. DIFFERENTIAL STAT 05/24/2017 2:23 PM Results f or this CUFF SETTER procedure are i n the results section. PROTEIN ELP (SERUM) STAT 05/24/2017 2:23 PM Elevated serum Results for this CUFF SETTER protein level procedure are in the results section. IGG, SERUM STAT 05/24/2017 2:23 PM Elevated serum Results for this CUFF SETTER protein level procedure are in the results section. IGA, SERUM STAT 05/24/2017 2:23 PM Elevated serum Results for this CUFF SETTER protein level procedure are in the results section. documented in this encounter Results Differential (05/24/2017 2:23 PM CUFF SETTER) athologist Signature Absolute 3.2 1.8 - 8.0 [...] Volume Laterality 05/24/2017 2:23 PM 8 2:23 CUFF SETTER PM CUFF SETTER Narrative PN SOFT - 05/24/2017 2:26 PM CUFF SETTER Performed at [facility], [address] [place] [address] CLIA number [id number] Marlys [facility]1 Performing Organization Address [facility] Phon e Number PN SOFT [address] [place] [address] IgM - in 6 months (05/24/2017 2:23 PM CUFF SETTER) athologist Signature Immunoglobulin M 90 33 - 293 PN SOFT mg/dL Specimen Anatomical Collection Method Collection Time Receive d Time (Source) Location / / Volume Laterality 05/24/2017 2:23 PM 8 6:12 CUFF SETTER PM CUFF SETTER Narrative PN SOFT - 05/24/2017 6:41 PM CUFF SETTER Performed at [facility] [address] [place] [address] CLIA number [id number] Marlys [facility]_1 Performing Organization Address City/[facility]/ZIP Code Phon e Number PN SOFT [address] [place] [address] IgG - in 6 months (05/24/2017 2:23 PM CUFF SETTER) athologist [facility] Immunoglobulin G 1,332 552 - PN SOFT 1,631 mg/dL Specimen Anatomical Collection Method Collection Time Receive d Time (Source) Location / / Volume Laterality 05/24/2017 2:23 PM 8 6:12 CUFF SETTER PM CUFF SETTER Narrative PN SOFT - 05/24/2017 6:41 PM CUFF SETTER Performed at [address] [address] CLIA number [id number] Marlys [facility]_1 Performing Organization Address City/[facility] Phon e Number PN SOFT [address] [place] [address] IgA, Serum - in 6 months (05/24/2017 2:23 PM CUFF SETTER) athologist [facility] Immunoglobulin A 252 69 - 517 PN SOFT mg/dL Specimen Anatomical Collection Method Collection Time Receive d Time (Source) Location / / Volume Laterality 05/24/2017 2:23 PM 8 6:12 CUFF SETTER PM CUFF SETTER Narrative PN SOFT - 05/24/2017 6:41 PM CUFF SETTER Performed at [address] [address] CLIA number [id number] Marlys [facility]_1 Performing Organization Address City/[facility] Phon e Number PN SOFT [address] [place] [address] (ABNORMAL) Free Light Chains, Serum - in 6 months (05/24/2017 2:23 PM CUFF SETTER) athologist [facility] [place] Free 2.59 (H) 0.33 - PN SOFT Light Chains 1.94 mg/dl Lambda Free 1.73 0.57 - PN SOFT Light [place]ains 2.63 mg/dl [place]/Lambda 1.50 0.26 - PN SOFT Ratio Free 1.65 Light Chains Comment: Performed at [facility], [address] ??[address] CLIA Number [id number] Specimen Anatomical Collection Method Collection Time Receive d Time (Source) Location / / Volume Laterality 05/24/2017 2:23 PM 8 6:14 CUFF SETTER PM CUFF SETTER Marlysra Moore Margarita [facility] Performing Organization Address [facility] Phon e Number PN SOFT [address] [place] [address] [phone] (ABNORMAL) Electrophoresis Protein, Serum - in 6 months (05/24/2017 2:23 PM CUFF SETTER) P athologist Signature Total Protein 7.1 6.4 - 8.3 PN SOFT g/dl Comment: Performed at [facility], [address] [place] [address] ??[address] Albumin 3.8 3.4 - 4.8 g/dl PN SOFT Alpha 1 0.3 0.2 - 0.5 g/dl PN SOFT Alpha 2 0.9 0.5 - 1.1 g/dl PN SOFT Beta 0.8 0.6 - 1.1 g/dl PN SOFT Gamma 1.2 0.7 - 1.6 g/dl PN SOFT Monoclonal Joaquin 0.5 (H) 0.0 g/dl PN SOFT Comment: IgG [place] Interpretation SEE BELOW PN SOFT Comment: A monoclonal protein has been detected b y serum protein electrophoresis. Signed out by SEE BELOW PN SOFT Comment: [facility] Performed at [facility], [address] [place] [address] ??[address] CLIA Number [id number] Specimen Anatomical Collection Method Collection Time Receive d Time (Source) Location / / Volume Laterality 05/24/2017 2:23 PM 8 6:12 CUFF SETTER PM CUFF SETTER M[facility]s [facility]_1 Performing Organization Address [facility] Phon e Number PN SOFT [address] [place] [address] [phone] Oncology Profile - in 6 months (05/24/2017 2:23 PM CUFF SETTER) Patholo gist Method Time Signature Aspartate 25 [...] Volume Laterality 05/24/2017 2:23 PM 8 2:22 CUFF SETTER PM CUFF SETTER Narrative PN SOFT - 05/24/2017 2:44 PM CUFF SETTER Performed at [facility], [address] [place] [address] CLIA number [id number] Marlys [facility]_1 Performing Organization Address City/State/ZIP Code Phon e Number PN SOFT [address] [place] [address] [phone] Complete Blood Count W/Diff - in 6 months (05/24/2017 2:23 PM CUFF SETTER) P athologist Signature White Blood Cell 6.7 [...] Volume Laterality 05/24/2017 2:23 PM 8 2:23 CUFF SETTER PM CUFF SETTER Narrative PN SOFT - 05/24/2017 2:25 PM CUFF SETTER Performed at [facility], [address] [facility], [place] [address] CLIA number [id number] Marlys [facility]_1 Performing Organization Address City/State/ZIP Code Phon e Number PN SOFT [address] [place] [address] documented in this encounter Visit Diagnoses Diagnosis Elevated serum protein level documented in this encounter Care Teams School Bus Driver Relationship Specialty Start Date End Date Allyson Pool PA-C PCP - General Physician Stencil Sprayer 09/26/16 02/28/[address] [place] [id number] documented as of this encounter
--- OUTSIDE RECORDS SUMMARY | 2022-02-24 15:50 | XMS_ITS | Encounter Summary ---
:1935 Author Organization [employer] Address [address] [place] [address] Care Team Providers Name Role Phone Allyson Pool PA-C Primary Care Provider Reason for Referral Consult/Transfer Care (Routine) - Closed Specialty Diagnoses / Procedures Referred By Contact Refer red To Contact Diagnoses Memory loss Sensory neuronopathy Allyson Pool PA-C [address] [place] [address] Referral ID Status Reason Start Date Expiration Date Visits Requ ested Visits Authorized [id number] Closed 05/15/2017 08/14/2018 1 1 Scheduling Instructions Your provider has recommended an appoint ment with Sana Lopez. You may call [phone] to schedule your appoi ntment. If you do not schedule an appointment within the next 1 to 3 business days, we will call you to help arrange your appointment. We suggest you call your [employer] insurance company about your coverage and benefits for this appointment. E MACHINE OPERATOR Procedure/Equipment (Routine) - Incomplete Specialty Diagnoses / Procedures Referred By Contact Refer red To Contact Diagnoses Mediastinal cyst Allyson Pool PA-C [place] [address] [place] [address] [address] Referral ID Status Reason Start Date Expiration Date Visits V isits Requested Authorized [id number] Incomplete 05/15/2017 08/14/2018 1 1 E MACHINE OPERATOR Procedure/Equipment (Routine) - Incomplete Specialty Diagnoses / Procedures Referred By Contact Refer red To Contact Diagnoses Thyroid nodule (HRC) Allyson Pool PA-C Procedures [place] Thyroid [address] [place] [address] Referral ID Status Reason Start Date Expiration Date Visits V isits Requested Authorized [id number] Incomplete 05/15/2017 08/14/2018 1 1 E MACHINE OPERATOR Reason for Visit Reason Comments FALL Has fallen a few times and d id testing to rule out stroke, but now has unstable gait, needs wal ker to get around Thyroid Problem Nodules noted on a scan Encounter Details Date Type Department Care Team Description 05/15/2017 Office Visit [facility] Allyson Pool PA-C Hospital discharge follow-up (Primary Dx ); Medicine [address] [place] [address] Thyroid nodule; [address] [place], [place] Mediastinal cyst; [place] [address] 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 I will have my social media sr strategy manager contact you Please check if you are taking triamterene-hydrochlorothiazide. Please call me and let me know either way if you are taking this or not. They asked you to stop this when you were in the hospital. Follow up with neurology will be on May 31 at 1:00 pm in [place], [place] E MACHINE OPERATOR documented in this encounter Progress Notes Allyson Pool PA-C - 05/15/2017 11:30 AM CST Internal Medicine [facility] - Allyson Pool PA-C Fidelia Vyas 81 y.o. Female : 1935 PN Date of Service: 05/15/2017 Chief Complaint: memory loss, weakness in the hands, and numbness in hands and feet, thyroid nodule,and mediastinal cyst Hog Sticker Present: no HPI: Fidelia Vyas is a 81 y.o. female who presents with her daughter Onel and her Ed. Fidelia was recently in [facility] 05/02 through 05/04. That days she did [...] cyst. A CT head with contrast from [place] in April showed small vessel ischemic disease and old lacunar infarcts. She has noted some pretty rapid deterioration in her memory. She also has had 3 falls one in March and two in April. She also has noted progressive numbness in her hands, feet, and also has limited strength and dexterity in the left hand. She missed a neurology apt yesterday in [facility]. It is really hard for Ed to get her there. No chest pain or SOB. No acute changes from her hospitalization. She is getting OT and PT at home. Needs to also establish with a social media sr strategy manager. She is living at home with her . She needs 24 care now and cannot drive, cook, or bathe safely. Incidentally noted on imaging was right thyroid nodule and mediastinal cyst. Needs further evaluation. Past Medical History: ME, aortic valve sclerosis, HLD, HTN, anxiety, depression, MGUS, sensory neuropathy memory loss Social History: non-smoker Allergies: Atorvastatin and Morphine Medications: Medications reviewed and updated in [facility] Review of Systems: Complete review of systems [...] we discussed establishing with a social media sr strategy manager and I will send a message [...] mass G93.9 diazePAM (VALIUM) 5 MG tablet E MACHINE OPERATOR documented in this encounter Plan of Treatment Scheduled Referrals Name Type Priority Associated Diagnoses Order S [facility] Neurology Referral Routine Memory loss Ordered: 05/15/2017 Consult-Adults Sensory neuronopathy documented as of this encounter Results CT Chest W IV Cont (05/17/2017 12:23 PM KNIFE MACHINE OPERATOR) Anatomical Region Laterality Modality Chest, Lung Computed Tomography Specimen (Source) Anatomical Collection Method Collection Time Re ceived Time Location / / Volume Laterality 05/17/2017 12:19 PM KNIFE MACHINE OPERATOR Impressions 05/17/2017 1:20 PM KNIFE MACHINE OPERATOR IMPRESSION: ??Benign appearing mediastinal/pericardial cyst. Narrative 05/17/2017 1:20 PM KNIFE MACHINE OPERATOR COMPARISON: ??None. TECHNIQUE: ??Images were obtained throug [...] RAD CT US Thyroid (05/17/2017 11:23 AM KNIFE MACHINE OPERATOR) Anatomical Region Laterality Modality Neck, Head Ultrasound Specimen (Source) Anatomical Collection Method Collection Time Re ceived Time Location / / Volume Laterality 05/17/2017 11:00 AM KNIFE MACHINE OPERATOR Impressions 05/17/2017 11:30 AM KNIFE MACHINE OPERATOR IMPRESSION: Somewhat ill-defined mixed echogenicity nodule right lobe of thyroid gland. Narrative 05/17/2017 11:30 AM KNIFE MACHINE OPERATOR COMPARISON: ??None. FINDINGS: RIGHT LOBE: ??Measures 4.2 [...] system documented in this encounter Care Teams Red Lead Burner Relationship Specialty Start Date End Date Allyson Pool PA-C PCP - General Physician Customer Success Representative 09/26/16 02/28/[address] [place] [address] documented as of this encounter
--- OUTSIDE RECORDS SUMMARY | 2022-02-24 15:50 | XMS_ITS | Encounter Summary ---
:1935 Author Organization [employer] Address [address] [place] [address] Care Team Providers Name Role Phone Allyson Pool PA-C Primary Care Provider Reason for Visit Reason Comments [facility] Care Coordination Encounter Details Date Type Department Care Team Description 05/20/2017 Care Coord Priyanka Family Martha Dennis [facility] Ca re Coordination Phone [facility] M, [facility] [address] [place] [address] [place], [place] [phone] [address] Social History Tobacco Use Types Packs/Day Years Used Date Smoking Tobacco: Never Smokeless Tobacco: Never Alcohol Use Standard Drinks/Week Comments Yes 0 (1 standard drink = 0.6 oz pure alcoho l) rare occasions Sex Assigned at Date Recorded Not on file documented as of this encounter Progress Notes Martha Dennis LISW - 05/20/2017 4:05 PM CST Word Processor - Phone Call Contact with: pt's Reason for call: community resources Discussion/actions: reports that a home care SW visited last week and is connecting them with [facility] so they do not need [facility] SW Word Processor assistance right now. He reports she was setting up some RELATIONS MANAGER visits for pt and a AC assessment. He seemed confident that they have received the info and help they need at this time. Shared plan: provided my contact info for any future questions or concerns. Pt verbalized understanding and agreed with plan of care and follow up. EL BUNG REMOVER AND DUMPER documented in this encounter Plan of Treatment Not on filedocumented as of this encounter Visit Diagnoses Not on filedocumented in this encounter Care Teams Mower Operator Relationship Specialty Start Date End Date Allyson Pool PA-C PCP - General Physician Chorus Dancer 09/26/16 02/28/21 [address] [place] [address] documented as of this encounter
--- OUTSIDE RECORDS SUMMARY | 2022-02-24 15:50 | XMS_ITS | Encounter Summary ---
:1935 Author Organization [employer] Address [address] [place] [address] Care Team Providers Name Role Phone Allyson Pool PA-C Primary Care Provider Reason for Visit Reason Comments RESULTS, TEST Encounter Details Date Type Department Care Team Description 05/21/2017 Telephone [facility] Allyson Pool PA-C RESULTS, TEST Medicine [address] [facility] [address] [place] [address] [place] [address] [phone] Social History Tobacco Use Types Packs/Day Years [...] theapt. Allyson Pool PA-C 12:28 PM 05/21/2017 TIONS OPERATOR documented in this encounter Plan of Treatment Not on filedocumented as of this encounter Visit Diagnoses Diagnosis Skull lesion - Primary Disorder of bone and cartilage, unspecif ied documented in this encounter Care Teams Specialty Food Products Supervisor Relationship Specialty Start Date End Date Allyson Pool PA-C PCP - General Physician Engraver Machine 09/26/16 02/28/21 [address] [place] [address] documented as of this encounter
--- OUTSIDE RECORDS SUMMARY | 2022-02-24 15:50 | XMS_ITS | Encounter Summary ---
:1935 Author Organization [employer] Address [address] [place] [address] Care Team Providers Name Role Phone Allyson Pool PA-C Primary Care Provider Encounter Details Date Type Department Care Team Description 03/25/2017 Lab Visit [facility] Memory loss [address] [place] [address] Social History Tobacco Use Types [...] AM Memory loss Resu lts for this TESTING AND REGULATING CHIEF procedure are i n the results section. documented in this encounter Results Creatinine / GFR (03/25/2017 10:50 AM TESTING AND REGULATING CHIEF) P athologist Signature Creatinine Serum 0.80 0.55 [...] / Volume Laterality 03/25/2017 10:50 03/25/2017 AM TESTING AND REGULATING CHIEF 10:50 AM TESTING AND REGULATING CHIEF Narrative PN SOFT - 03/25/2017 11:15 AM TESTING AND REGULATING CHIEF Performed at [facility], [address] [place] [address] CLIA number [id number] Jose Aldridge MD LAB_1 Performing Organization Address City/State/ZIP Code Phon e Number PN SOFT [address] [place] [address] documented in this encounter Visit Diagnoses Diagnosis Memory loss documented in this encounter Care Teams Plate Inspector Relationship Specialty Start Date End Date Allyson Pool PA-C PCP - General Physician Guillotine Operator 09/26/16 02/28/[address] [place] [id number] documented as of this encounter
--- OUTSIDE RECORDS SUMMARY | 2022-02-24 15:50 | XMS_ITS | Encounter Summary ---
:1935 Author Organization [employer] Address [address], [place] [address] Care Team Providers Name Role Phone Allyson Pool PA-C Primary Care Provider Reason for Referral Therapies (Routine) - Closed Specialty Diagnoses / Procedures Referred By Contact Refer red To Contact Diagnoses Numbness and tingling in both hands Jose Aldridge MD [facility] [address] [facility] [address] [place] [address] Referral ID Status Reason Start Date Expiration Date Visits Requ ested Visits Authorized [id number] Closed 03/22/2017 05/21/2017 1 1 Scheduling Instructions If scheduling assistance is needed, jose roberto rhodes inquire with the medical office staff upon exiting your appointment or contact the ordering clinic for recommended locations. This recommended service/s may not be co singh by your insurance coverage. To find out your specific benefit coverage, please c all the number on your insurance card. LAINT SPECIALIST Reason for Visit Reason Comments CONSULT Consult/Transfer Care (Routine) - Closed Specialty Diagnoses / Procedures Referred By Contact Refer red To Contact Diagnoses Memory loss Sensory neuronopathy Allyson Pool PA-C [address] [place] [address] Referral ID Status Reason Start Date Expiration Date Visits Requ ested Visits Authorized [id number] Closed 01/28/2017 04/29/2018 1 1 Encounter Details Date Type Department Care Team Description 03/22/2017 Initial Consult [place] [address] Jose Aldridge, Memory loss (Primary Dx); Neurology Numbness and tingling in both hands [address] [place] [address] [address] [place], [place] [phone] [address] Social History Tobacco Use Types Packs/Day Years Used Date Smoking Tobacco: Never Smokeless Tobacco: Never Alcohol Use Standard Drinks/Week Comments Yes 0 (1 standard drink = 0.6 oz pure alcoho l) rare occasions Sex Assigned at Date Recorded Not on file documented as of this encounter Last Filed Vital Signs Vital Sign Reading Time Taken Comments Blood Pressure 142/70 03/22/2017 2:35 PM COMPLAINT SPECIALIST Pulse 60 03/22/2017 2:35 PM COMPLAINT SPECIALIST Temperature - - Respiratory Rate 12 03/22/2017 2:35 PM COMPLAINT SPECIALIST Oxygen Saturation - - Inhaled Oxygen Concentration [...] instructions to start a medication for yourmemory LAINT SPECIALIST documented in this encounter Progress Notes Doreen Escobar RN - 03/22/2017 2:30 PM CST Rx for valium 5mg #2 with 0 refills called into [facility] in [place] for sedation for MRI scan. LAINT SPECIALIST Jose Aldridge MD - 03/22/2017 12:00 PM CST NAME: WAQAR LUNDBERG MR#: [id number] CSN: [id number] AUTHENTICATING CLINICIAN: Jose Aldridge MD CONFIRM #: [id number] LOC: 223 CLINIC PROGRESS NOTE DATE OF [...] decreased in the great toe bilaterally. Coordination: [id number], fine finger movements were done without ataxia [...] the brain with and without contrast at [facility] for further evaluation. Should this not reveal any other causes, I would have her start donepezil starting at 5 mg daily for 2 weeks then increasing to 10 mg per day after that. We will be in contact after MRI and probably see her back in the next 3-6 months. CC: ANGELINA WOODS [address] [address] DIK:RANDI C: CONFIRM #: [id number] LAINT SPECIALIST documented in this encounter Plan of Treatment Scheduled Referrals Name Type Priority Associated Diagnoses Order S chedule Occupational Therapy Referral Routine Numbness and tinglin g in Ordered: 03/22/2017 both hands documented as of this encounter Results Creatinine / GFR (03/25/2017 10:50 AM COMPLAINT SPECIALIST) athologist Signature Creatinine Serum 0.80 0.55 - [...] / Volume Laterality 03/25/2017 10:50 03/25/2017 AM COMPLAINT SPECIALIST 10:50 AM COMPLAINT SPECIALIST Narrative PN SOFT - 03/25/2017 11:15 AM COMPLAINT SPECIALIST Performed at [facility], [address] [facility], [place] [address] CLIA number [id number] Jose Aldridge MD LAB_1 Performing Organization Address City/State/ZIP Code Phon e Number PN SOFT [address] [place] [address] [phone] documented in this encounter Visit Diagnoses Diagnosis Memory loss - Primary Numbness and tingling in both hands Memory loss documented in this encounter Care Teams Imaging Manager Relationship Specialty Start Date End Date Allyson Pool PA-C PCP - General Physician Family Court Registrar 09/26/16 02/28/21 [address] [place] [address] documented as of this encounter
--- OUTSIDE RECORDS SUMMARY | 2022-02-24 15:50 | XMS_ITS | Encounter Summary ---
:1935 Author Organization [facility] Address [address] [place] [address] Care Team Providers Name Role Phone Allyson Pool PA-C Primary Care Provider Reason for Referral Consult/Transfer Care (Routine) - Closed Specialty Diagnoses / Procedures Referred By Contact Refer red To Contact Diagnoses Memory loss Allyson Pool PA-C [address] [place] [address] Referral ID Status Reason Start Date Expiration Date Visits Requ ested Visits Authorized [id number] Closed 12/21/2016 06/19/2017 1 1 Scheduling Instructions [...] PA-C Procedures NEURO--EMG ELECTRICAL NERVE CONDUCTION STUDY [address] [place] [address] Referral ID Status Reason Start Date Expiration Date Visits Requ ested Visits Authorized [id number] Closed 12/21/2016 03/22/2018 1 1 Reason for Visit Reason Comments Follow-up Hematology Encounter Details Date Type Department Care Team Description 12/21/2016 Office Visit [facility] Allyson Pool PA-C Memory loss (Primary Dx); Medicine [address] [place] [address] Numbness in both hands; [address] [place], [place] [address] [phone] (Wo rk) Social History Tobacco Use Types [...] - 12/21/2016 8:00 AM CDT Internal Medicine [facility] - Allyson Vyas 81 y.o. Female : 1935 PN Date of Service: 12/21/2016 Chief Complaint: follow up, hand numbness, and memory loss Marshmallow Runner Present: no HPI: Fidelia Vyas is a [...] of the memory loss. Past Medical History: [place] with cardiac arrest (follows at [place]), HLD, HTN, anxiety, depression Social History: non-smoker Allergies: Atorvastatin and Morphine Medications: Medications reviewed and updated in [facility]. Review of Systems: Pertinent review of systems is noted in the HPI. Physical Exam: BP 132/74 Pulse 60 Temp 36.8 ??C (98.2 ??F) (Oral) Constitutional: Well developed, Well nourished, No acute distress, Non-toxic appearance. Neck: full ROM. No pain with ROM or palpation. Strength 5/5. Normal circulation. Sensation decreasedin finger tips bilaterally. Normal greenhouse grower strength. Neuro: no focal neuro deficit. She [...] Vitamin D deficiency (HRC) E55.9 ergocalciferol (DRISDOL) 30213 UNITS capsule cholecalciferol (VITAMIN D3) 1000 UNITS tablet documented in this encounter Plan of Treatment Scheduled Referrals Name Type Priority [facility] Diagnoses [facility] Referral Routine Memory loss Ordered: Testing/Consult-Adult 2016 documented as of this encounter Visit Diagnoses Diagnosis Memory loss - Primary Numbness in both hands Disturbance of skin sensation Vitamin D deficiency (HRC) Unspecified vitamin D deficiency documented in this encounter Care Teams Knitting Machine Fixer Head Relationship Specialty Start Date End Date Allyson Pool PA-C PCP - General Physician Labeler 09/26/16 02/28/[address] [address] [address] documented as of this encounter
--- OUTSIDE RECORDS SUMMARY | 2022-02-24 15:50 | XMS_ITS | Encounter Summary ---
:1935 Author Organization [facility] Address [address] [place] [address] Care Team Providers Name Role Phone Allyson Pool PA-C Primary Care Provider Encounter Details Date Type Department Care Team Description 05/17/2017 Lab Visit [facility] Hypokalemia [address] [place] [address] Social History Tobacco Use Types [...] 1:45 PM Hypokalemia Results f or this SUPERVISOR HISTOLOGY procedure are i n the results section . documented in this encounter Results Potassium (05/17/2017 1:45 PM SUPERVISOR HISTOLOGY) athologist Signature Potassium 3.5 3.5 - 5.2 PN SOFT mmol/L Specimen Anatomical Collection Method Collection Time Receive d Time (Source) Location / / Volume Laterality 05/17/2017 1:45 PM 8 1:45 SUPERVISOR HISTOLOGY PM SUPERVISOR HISTOLOGY Narrative PN SOFT - 05/17/2017 3:23 PM SUPERVISOR HISTOLOGY Performed at [facility], [address] [place] [address] CLIA number [id number] Allyson M [place] PA-C LAB_1 Performing Organization Address City/State/ZIP Code Phon e Number PN SOFT [address] [place], [place] [address] documented in this encounter Visit Diagnoses Diagnosis Hypokalemia Hypopotassemia documented in this encounter Care Teams Dip Dyer Relationship Specialty Start Date End Date Allyson Pool PA-C PCP - General Physician Light Coil Winder 09/26/16 02/28/21 [address] [place] [address] documented as of this encounter
--- OUTSIDE RECORDS SUMMARY | 2022-02-24 15:50 | XMS_ITS | Encounter Summary ---
:1935 Author Organization [employer] Address [address] [address] Care Team Providers Name Role Phone Allyson Pool PA-C Primary Care Provider Reason for Visit Reason Comments Medication Questions Encounter Details Date Type Department Care Team Description 05/16/2017 Telephone [facility] Allyson Pool PA-C Medication Questions Medicine [address] [facility] [address] [place], [place] [address] [place] [address] [phone] Social History Tobacco Use Types Packs/Day Years [...] re-evaluate what the next step will be. E CARVER Allyson Pool PA-C - 05/16/2017 4:11 PM CST This was stopped in the hospital 2/2 low potassium. Her BP was normal yesterday. If she could come into clinic and get a potassium check. If it is normal then we can keep her on this. Allyson Pool PA-C 4:12 PM 05/16/2017 E CARVER Katharine Beckham RN - 05/16/2017 3:53 PM [...] If further questions, callback: Mayo Vyas () [phone] E CARVER Jamila Lassiter RN - 05/16/2017 12:23 PM CST Left message to return call to [phone] for more information. E CARVER Fernandez He - 05/16/2017 11:26 AM CST Caller patients calling to let PCP know patient is still taking triamterene and requesting acall back from PCP's nurse. Detailed message ok, please advise. E CARVER documented in this encounter Plan of Treatment Not on filedocumented as of this encounter Results Potassium (05/17/2017 1:45 PM STONE CARVER) P athologist Signature Potassium 3.5 3.5 - 5.2 PN SOFT mmol/L Specimen Anatomical Collection Method Collection Time Receive d Time (Source) Location / / Volume Laterality 05/17/2017 1:45 PM 8 1:45 STONE CARVER PM STONE CARVER Narrative PN SOFT - 05/17/2017 3:23 PM STONE CARVER Performed at [facility], [address] [place] [address] CLIA number [id number] Allyson Pool PA-C LAB_1 Performing Organization Address City/State/ZIP Code Phon e Number PN SOFT [address] [place] [address] documented in this encounter Visit Diagnoses Diagnosis Hypokalemia - Primary Hypopotassemia Hypokalemia Hypopotassemia documented in this encounter Care Teams Cash Posting Specialist Relationship Specialty Start Date End Date Allyson Pool PA-C PCP - General Physician Furniture Stainer 09/26/16 02/28/21 [address] [place] [id number] documented as of this encounter
--- OUTSIDE RECORDS SUMMARY | 2022-02-24 15:50 | XMS_ITS | Encounter Summary ---
:1935 Author Organization [employer] Address [address] [place] [address] Care Team Providers Name Role Phone Allyson Pool PA-C Primary Care Provider Reason for Visit Procedure/Equipment (Routine) - Incomplete Specialty Diagnoses / Procedures Referred By Contact Refer red To Contact Diagnoses Abnormal MRI Jose Aldridge MD Procedures MR Brain W/WO IV Cont [address] [facility] [address] [place] [address] Referral ID Status Reason Start Date Expiration Date Visits V isits Requested Authorized [id number] Incomplete 03/28/2017 06/27/2018 1 1 Encounter Details Date Type Department Care Team Description 05/17/2017 [facility] MRI Jose Aldridge MD Abnormal MRI [address] [place], [place] [address] [address] [place] [address] (Wo rk) Social History Tobacco Use Types Packs/Day Years Used Date Smoking Tobacco: Never Smokeless Tobacco: Never Alcohol Use Standard Drinks/Week Comments Yes 0 (1 standard drink = 0.6 oz pure alcoho l) rare occasions Sex Assigned at Date Recorded Not on file documented as of this encounter Progress Notes Doreen Escobar RN - 05/20/2017 10:33 AM CST Updated pt's . CTOR OF PULMONARY UNIT Jose Aldridge MD - 05/19/2017 1:30 PM [...] of any particular significance. Thanks, Roque Aldridge CTOR OF PULMONARY UNIT Jose Aldridge MD - 05/19/2017 1:20 PM [...] they think any f/u is needed. Thanks. CTOR OF PULMONARY UNIT documented in this encounter Plan of Treatment Not on filedocumented as of this encounter Procedures Procedure Name Priority Date/Time Associated Diagnosis Comme nts MR BRAIN W/WO IV Routine 05/17/2017 1:27 PM Abnormal MRI Resul ts for this CONT DIRECTOR OF PULMONARY UNIT procedure are i n the results section. documented in this encounter Results MR Brain W/WO IV Cont (05/17/2017 1:27 PM DIRECTOR OF PULMONARY UNIT) Anatomical Region Laterality Modality Head Magnetic Resonance Specimen (Source) Anatomical Collection Method Collection Time Re ceived Time Location / / Volume Laterality 05/17/2017 12:51 PM DIRECTOR OF PULMONARY UNIT Impressions 05/17/2017 1:50 PM DIRECTOR OF PULMONARY UNIT IMPRESSION: ?? 1. ??Unchanged small 8 mm [...] lakes or hemangiomas. Narrative 05/17/2017 1:50 PM DIRECTOR OF PULMONARY UNIT INDICATION: f/u abnormal MRI ?? TECHNIQUE: ??MRI of the head with and wi thout contrast using tumor protocol, 10 mL GADOBUTROL 1 MMOL/ML IV SOLN. COMPARISON: Brain MRI 03/27/2017 FINDINGS: ??Normal diffusion. 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 Unchanged raot-pl-swaznfrg scattered small T2 and FLAIR hyperintense foci [...] along the superior left cerebellar hemisphere. Unchanged ajmr-qb-mknyefwy scattered small T2 and FLAIR hyperintense foci [...] (GADAVIST) 1 MMOL/ML Given 05/17/2017 1:15 PM DIRECTOR OF PULMONARY UNIT 10 mL injection 10 mL 10 mL, Intravenous, ONCE, On Sat05/17/17 at 1315, For 1 dose sodium chloride 0.9% injection 20 mL Given 05/17/2017 1:15 PM DIRECTOR OF PULMONARY UNIT 20 mL 20 mL, Intravenous, ONCE, On Sat05/17/17 at 1315, For 1 dose documented in this encounter Care Teams Starch And Prosize Mixer Relationship Specialty Start Date End Date Allyson Pool PA-C PCP - General Physician Rubber Down 09/26/16 02/28/[address] [place] [address] documented as of this encounter
--- OUTSIDE RECORDS SUMMARY | 2022-02-24 15:51 | XMS_ITS | Encounter Summary ---
:1935 Author Organization [employer] Address [facility] [place] [address] Care Team Providers Name Role Phone Allyson Pool Primary Care Provider Guillermo Martinez MD Unavailable Encounter Details Date Type Department Care Team Description 07/17/2017 Records - [facility] DIESEL ENGINE TESTER Laboratory GERIATRIC SERVICES [address] [place] [phone] [place] [address] [place], [place] [phone] (Wo rk) Social History Tobacco Use Types [...] 07/18/2017 7:50 AM Res ults for this CLERICAL WAREHOUSE WORKER procedure are i n the results section. documented in this encounter Results (ABNORMAL) CBC with platelets (07/18/2017 7:50 AM CLERICAL WAREHOUSE WORKER) [facility] Method Time Signature WBC 7.1 4.0 - 11.0 07/18/2017 [facility] thou/uL 10:58 AM [facility] RBC Count 4.77 3.80 - 07/18/2017 [facility] 5.40 10:58 AM CLERICAL WAREHOUSE WORKER [facility]/uL [facility] Hemoglobin 14.2 12.0 - 07/18/2017 [facility] 16.0 g/dL 10:58 AM [facility] Hematocrit 44.5 35.0 - 07/18/2017 [facility] 47.0 % 10:58 AM [facility] MCV 93 80 - 100 07/18/2017 [facility] fL 10:58 AM [facility] MCH 29.8 27.0 - 07/18/2017 [facility] 34.0 pg 10:58 AM [facility] MCHC 31.9 (L) 32.0 - 07/18/2017 [facility] 36.0 g/dL 10:58 AM [facility] RDW 13.3 11.0 - 07/18/2017 [facility] 14.5 % 10:58 AM [facility] Platelet Count 214 140 - 440 07/18/2017 [facility] thou/uL 10:58 AM [facility] Mean Platelet 10.3 8.5 - 12.5 07/18/2017 [facility] Volume fL 10:58 AM [facility] Specimen Anatomical Collection Method / Collection Time Recei miladis Time (Source) Location / Volume Laterality Blood specimen STRUCTURE OF RIGHT Venipuncture / 07/18/2017 7:50 (specimen) UPPER LIMB / Unknown AM CLERICAL WAREHOUSE WORKER 10:44 AM CLERICAL WAREHOUSE WORKER Unknown Noemi Ferris NP LAB - BLOOD ORDERABLES Performing Organization Address City/State/ZIP Code Phon e Number [place] [address] [phone] [address] [facility] documented in this encounter Visit Diagnoses Not on filedocumented in this encounter Care Teams Drier Relationship Specialty Start Date End Date Allyson Pool PA PCP - General 04/27/17 [facility] [address] [place] [id number] Guillermo Martinez MD MD Cardiology 11/15/[address] [place] [phone] documented as of this encounter
--- OUTSIDE RECORDS SUMMARY | 2022-02-24 15:51 | XMS_ITS | Encounter Summary ---
:1935 Author Organization [employer] Address [facility] [place] [address] Care Team Providers Name Role Phone Allyson Pool Primary Care Provider Guillermo Kline MD Unavailable Reason for Referral - Closed Specialty Diagnoses / Procedures Referred By Contact Refer red To Contact Diagnoses Coronary artery disease involving white mountain coronary artery of white mountain heart without angina pectoris Guillermo Kline MD [address] [place] [address] Referral ID Status Reason Start Date Expiration Date Visits Requ ested Visits Authorized [id number] Closed 11/21/2019 11/20/2020 1 1 Reason for Visit Reason Comments Annual Visit Hyperlipidemia, HTN, and CAD . Hx of two AK's - Closed Specialty Diagnoses / Procedures Referred By Contact Refer red To Contact Diagnoses Benign essential hypertension Coronary artery disease involving white mountain coronary artery of white mountain heart without angina pectoris Guillermo Kline MD [address] [place] [address] Referral ID Status Reason Start Date Expiration Date Visits Requ ested Visits Authorized [id number] Closed 10/16/2017 10/16/2018 1 1 Encounter Details Date Type Department Care Team Description 11/21/2017 Office Visit Guillermo Arriaza Benign esse ntial hypertension; [place] Regino Fink MD Coronary artery disease involving white mountain coronary artery of white mountain heart without angina pectoris; [facility] susy [address] Mixed hyperlipidemia [address] [facility] [address] [place] [phone] Social History Tobacco Use Types Packs/Day [...] greater than 50% counseling. cc: ANGELINA Zhang [address] [address] GUILLERMO KLINE MD JERICA: janice Name: FIDELIA LUNDBERG Account: [id number] : 1935 Service Date: 11/21/2017 Document: [id number] Guillermo Kline MD - 11/21/2017 10:00 AM CDT HPI and Plan: See dictation Orders Placed This Encounter Procedures ??? Follow-Up with Product Marketing Executive Orders Placed This Encounter Medications ??? labetalol [...] essential hypertension ??? Coronary artery disease involving white mountain coronary artery of white mountain heart without angina pectoris ??? Mixed hyperlipidemia [...] CAD (coronary artery disease) 1981 unrecognized Lcx [place], 2003 AWMI with VF: Lcx 100% chronic, [...] INR 1.00 12/02/2008 CC Guillermo Kline MD [address] [place] [address] documented in this encounter Plan of Treatment Scheduled Referrals Name Type Priority Associated Diagnoses Order S chedule Follow-Up with Referral Routine Coronary artery Expected: 11/21/2019 Product Marketing Executive disease involving (Approxima te), white mountain coronary artery Expir es: 12/11/2019 of white mountain heart without angina pectoris documented as of this encounter Visit Diagnoses Diagnosis Benign essential hypertension Essential hypertension, benign Coronary artery disease involving white mountain coronary artery of white mountain heart without angina pectoris Mixed hyperlipidemia documented in this encounter Care Teams Director Of Primary Care Relationship Specialty Start Date End Date Allyson Pool PA PCP - General 04/27/17 [facility] [address] [place] [address] Guillermo Kline MD MD Cardiology 11/15/[address] [place] [phone] documented as of this encounter
--- OUTSIDE RECORDS SUMMARY | 2022-02-24 15:51 | XMS_ITS | Encounter Summary ---
:1935 Author Organization [email or web address] Address [address] [place] [address] Care Team Providers Name Role Phone Allyson Pool PA-C Primary Care Provider Reason for Visit Reason Comments Follow-up memory concerns and anxiety Encounter Details Date Type Department Care Team Description 11/01/2016 Office Visit [facility] Allyson Pool PA-C Hand numbness (Primary Dx); Medicine [address] Hypocalcemia; [address] [place], [place] Memory changes; [place] [address] Anxiety; [phone] (Wo rk) Stress Social History Tobacco Use [...] - 11/01/2016 7:50 AM CDT Internal Medicine [facility] - Allyson Pool PA-C Fidelia Vyas 80 y.o. Female : 1935 PN Date of Service: 11/01/2016 Chief Complaint: Follow up memory concerns, anxiety and stress, tingling in fingers Paint Maker Present: no HPI: Fidelia Vyas is a [...] issues with her . He was a commercial trailer truck driver so was not home growing up but [...] She is not diabetic. After review of [facility] records she does have a mild persistent hypocalcemia that has been stable for a couple years. She denies tick bites or recent flu-like illness. She is currently being treated for a UTI with macrobid. No chest pain or SOB. No abdominal pain or bloo dy stool. Past Medical History: CAD, anxiety, depression, HLD, [place] Social History: non-smoker lives with her Allergies: Atorvastatin and Morphine Medications: Medications reviewed and updated in [employer]. Review of Systems: Complete review of systems [...] refill. Sensation intact to slight touch. Intact active directory specialist strength and 5/5 strength in the arms. [...] Tingling in finger tips - review of [place] labs shows persistently mildly low calcium - [...] Panel(Hepatic Function Panel) (11/01/2016 9:04 AM CDT) [facility] gist Method Time Signature Alk Phos 46 [...] - 11/01/2016 10:00 AM CDT Performed at [facility], [address] [place] [address] CLIA number [id number] Allyson Pool PA-C LAB_1 Performing Organization Address City/State/ZIP Code Phon e Number PN SOFT [address] [place], [place] [address] (ABNORMAL) Protein ELP (Serum) (11/01/2016 9:04 AM CDT) athologist Signature Total Protein 7.3 6.4 - 8.3 PN SOFT g/dl Comment: Performed at [facility], [address] [place] [id number] Albumin 4.1 3.4 - 4.8 g/dl PN SOFT Alpha 1 0.3 0.2 - 0.5 g/dl PN SOFT Alpha 2 0.8 0.5 - 1.1 g/dl PN SOFT Beta 0.8 0.6 - 1.1 g/dl PN SOFT Gamma 1.4 0.7 - 1.6 g/dl PN SOFT Monoclonal Joaquin 0.5 (H) 0.0 g/dl PN SOFT Comment: IgG Gu-Win Interpretation SEE BELOW PN SOFT Comment: A monoclonal protein has been detected b y serum protein electrophoresis. Signed out by SEE BELOW PN SOFT Comment: Isaias Peres MD Performed at [facility], [address] [place] [address] CLIA Number [id number] Specimen Anatomical Collection Method Collection Time Receive d Time (Source) Location / / Volume Laterality 11/01/2016 9:04 AM 7 CDT 12:28 PM CDT Allyson Pool PA-C LAB_1 Performing Organization Address City/[facility] Code Phon e Number PN SOFT [address] [place] [address] (ABNORMAL) Vitamin D 25-Hydroxy, Total (11/01/2016 9:04 [...] - 11/01/2016 1:26 PM CDT Performed at [place] [address] [place] [address] CLIA number [id number] Allyson Pool PA-C LAB_1 Performing Organization Address [facility] Phon e Number PN SOFT [address] [place] [address] Phosphorus (11/01/2016 9:04 AM CDT) P athologist Signature Phosphorus Serum 3.3 2.3 - 4.7 PN SOFT mg/dL Specimen Anatomical Collection Method Collection Time Receive d Time (Source) Location / / Volume Laterality 11/01/2016 9:04 AM 7 9:04 CDT AM CDT Narrative PN SOFT - 11/01/2016 10:00 AM CDT Performed at [facility], [address] [place] [address] CLIA number [id number] Allyson Pool PA-C LAB_1 Performing Organization Address City/[facility] Code Phon e Number PN SOFT [address] [place] [address] (ABNORMAL) Intact PTH (11/01/2016 9:04 AM CDT) athologist Signature PTH 116 (H) 10 - 100 PN SOFT pg/mL Specimen Anatomical Collection Method Collection Time Receive d Time (Source) Location / / Volume Laterality 11/01/2016 9:04 AM 7 6:26 CDT PM CDT Narrative PN SOFT - 11/01/2016 7:35 PM CDT Performed at [address] [address] CLIA number [id number] Allyson Pool PA-C LAB_1 Performing Organization Address [facility] Phon e Number PN SOFT [address] [place] [address] Vitamin B-12 (11/01/2016 9:04 AM CDT) athologist Signature Vitamin B12 288 213 - 816 PN SOFT pg/dL Specimen Anatomical Collection Method Collection Time Receive d Time (Source) Location / / Volume Laterality 11/01/2016 9:04 AM 7 CDT 12:26 PM CDT Narrative PN SOFT - 11/01/2016 1:53 PM CDT Performed at [facility], [address] [place] [address] CLIA number [id number] Allyson Pool PA-C LAB_1 Performing Organization Address City/[facility]/ZIP Code Phon e Number PN SOFT [address] [place] [address] TSH with Free T4 (if TSH Abnormal) (11/01/2016 9:04 AM CDT) athologist Signature Thyroid 1.45 0.30 - PN SOFT Stimulating 4.50 Hormone uIU/mL Specimen Anatomical Collection Method Collection Time Receive d Time (Source) Location / / Volume Laterality 11/01/2016 9:04 AM 7 CDT 12:26 PM CDT Narrative PN SOFT - 11/01/2016 2:33 PM CDT Performed at [place] [address] [place] [address] CLIA number [id number] Allyson Pool PA-C LAB_1 Performing Organization Address [facility] Phon e Number PN SOFT [address] [place] [address] Magnesium (11/01/2016 9:04 AM CDT) athologist Signature Magnesium 2.2 1.6 - 2.6 PN SOFT mg/dL Specimen Anatomical Collection Method Collection Time Receive d Time (Source) Location / / Volume Laterality 11/01/2016 9:04 AM 7 9:04 CDT AM CDT Narrative PN SOFT - 11/01/2016 10:00 AM CDT Performed at [facility], [address] [place] [address] CLIA number [id number] Allyson Pool PA-C LAB_1 Performing Organization Address City/[facility] Phon e Number PN SOFT [address] [place] [address] Basic Metabolic Panel (11/01/2016 9:04 AM CDT) [...] - 11/01/2016 10:00 AM CDT Performed at [facility], [address] [place] [address] CLIA number [id number] Allyson Pool PA-C LAB_1 Performing Organization Address City/State/ZIP Code Phon e Number PN SOFT [address] [place] [address] Complete Blood Count W/Diff (11/01/2016 9:04 AM [...] - 11/01/2016 9:17 AM CDT Performed at [facility], [facility] [address] [place] [id number] CLIA number [id number] Allyson Pool PA-C LAB_1 Performing Organization Address City/State/ZIP Code [facility] e Number PN SOFT [address] [place] [address] documented in this encounter Visit Diagnoses Diagnosis Hand numbness - Primary Disturbance of skin sensation Hypocalcemia Memory changes Memory loss Anxiety (HRC) Anxiety state, unspecified Stress (HRC) Other psychological or physical stress, not elsewhere classified Hypocalcemia documented in this encounter Care Teams Principal Solutions Architect Relationship Specialty Start Date End Date Allyson Pool PA-C PCP - General Physician Pest Control Chemical Technician 09/26/16 02/28/21 [address] [place] [id number] documented as of this encounter
--- OUTSIDE RECORDS SUMMARY | 2022-02-24 15:51 | XMS_ITS | Encounter Summary ---
:1935 Author Organization [employer] Address [address] [place] [address] Care Team Providers Name Role Phone Unavailable Primary Care Provider Unavailable Encounter Details Date Type Department Care Team Description 09/06/2009 PN Conversion Only [facility] [address] [place] [address] Social History Tobacco Use Types Packs/Day Years [...]
--- OUTSIDE RECORDS SUMMARY | 2022-02-24 15:51 | XMS_ITS | Encounter Summary ---
:1935 Author Organization [employer] [place] Address [address] [place] [address] Care Team Providers Name Role Phone Allyson Pool Primary Care Provider Guillermo Martinez MD Unavailable Encounter Details Date Type Department Care Team Description 11/21/2017 Orders Only [facility] gn essential hypertension; [facility] Coronary artery disease invo lving jackson coronary artery of jackson heart without angina pectoris [address] [facility] [address] [place] [address] Social History Tobacco Use [...] this CDT disease involving procedure are in jackson coronary the results artery of jackson section. heart without angina pectoris ALT STAT 11/21/2017 9:26 AM Coronary artery Result s for this CDT disease involving procedure are in jackson coronary the results artery of jackson section. heart without angina pectoris BASIC METABOLIC STAT 11/21/2017 9:26 AM Benign essential Re sults for this PANEL CDT hypertension procedure are in Coronary artery the results disease involving section. jackson coronary artery of jackson heart without angina pectoris documented in this encounter Results ALT (11/21/2017 9:26 AM CDT) athologist Signature ALT 15 0 - 50 U/L 11/21/2017 [facility] 9:57 AM [facility] Specimen Anatomical Collection Method Collection Time Receive d Time (Source) Location / / Volume Laterality Blood specimen 11/21/2017 9:26 AM 018 9:27 (specimen) CDT AM CDT Guillermo Martinez MD LAB - BLOOD ORDERABLES Performing Organization Address City/[facility] Phon e Arnaud Fink [facility] [address] [place], [place] [address] [facility] [address] [place], [place] [address], [facility] [phone] Lipid Profile (11/21/2017 9:26 AM CDT) athologist Signature Cholesterol 140 <200 mg/dL 11/21/2017 [place] 9:57 AM [facility] Triglycerides 79 <150 mg/dL 11/21/2017 [place] 9:57 AM [facility] Comment: Fasting specimen HDL Cholesterol 62 >49 mg/dL 11/21/2017 9:57 AM [facility] LDL Cholesterol 62 <100 mg/dL 11/21/2017 9:57 AM [facility] Comment: Desirable: <100 mg/dl Non HDL Cholesterol 78 <130 mg/dL 11/21/2017 9:57 AM [facility] Specimen Anatomical Collection Method Collection Time Receive d Time (Source) Location / / Volume Laterality Blood specimen 11/21/2017 9:26 AM 018 9:27 (specimen) CDT AM CDT Guillermo Martinez MD LAB - BLOOD ORDERABLES Performing Organization Address City/[facility] Phon e Arnaud Fink [facility] [address] [place], [place] [address] [facility] [address] [place], [place] [address], [facility] [phone] (ABNORMAL) Basic metabolic panel (11/21/2017 9:26 AM CDT) P athologist Signature Sodium 144 133 - 144 11/21/2017 [place] mmol/L 9:57 AM [facility] Potassium 3.6 3.4 - 5.3 11/21/2017 [place] mmol/L 9:57 AM [facility] Chloride 110 (H) 94 - 109 11/21/2017 [place] mmol/L 9:57 AM [facility] Carbon Dioxide 27 20 - 32 11/21/2017 [place] mmol/L 9:57 AM [facility] Anion Gap 7 3 - 14 11/21/2017 [place] mmol/L 9:57 AM [facility] Glucose 92 70 - 99 11/21/2017 [place] mg/dL 9:57 AM [facility] Comment: Fasting specimen Urea Nitrogen 8 7 - 30 mg/dL 11/21/2017 9:57 AM [facility] Creatinine 0.70 0.52 - 1.04 mg/dL 11/21/2017 9:57 AM CD [facility] GFR Estimate 81 >60 mL/min/1.7m2 11/21/2017 9:57 AM C DT [facility] Comment: Non GFR Calc GFR Estimate If >90 >60 mL/min/1.7m2 11/21/2017 9:57 A M [facility] Comment: GFR Calc Calcium 8.4 (L) 8.5 - 10.1 mg/dL 11/21/2017 9:57 AM [facility] Specimen Anatomical Collection Method Collection Time Receive d Time (Source) Location / / Volume Laterality Blood specimen 11/21/2017 9:26 AM 018 9:27 (specimen) CDT AM T Guilelrmo Martinez MD LAB - BLOOD ORDERABLES Performing Organization Address City/State/ZIP Code Phon e Number M [facility] [address] [place], [place] [address] [facility] [address] [place], [place] [address] [place] [address] documented in this encounter Visit Diagnoses Diagnosis Benign essential hypertension Essential hypertension, benign Coronary artery disease involving jackson coronary artery of jackson heart without angina pectoris documented in this encounter Care Teams Phytochemistry Professor Relationship Specialty Start Date End Date Allyson Pool PA PCP - General 04/27/17 [facility] [address] [place] [address] Guillermo Martinez MD MD Cardiology 11/15/17 [address] [place] [phone] documented as of this encounter
--- OUTSIDE RECORDS SUMMARY | 2022-02-24 15:51 | XMS_ITS | Encounter Summary ---
:1935 Author Organization [employer] Address [address] [place] [address] Care Team Providers Name Role Phone Unavailable Primary Care Provider Unavailable Encounter Details Date Type Department Care Team Description 01/26/2008 PN Conversion Only [facility] [address] [place] [address] Social History Tobacco Use Types Packs/Day Years [...]
--- OUTSIDE RECORDS SUMMARY | 2022-02-24 15:51 | XMS_ITS | Encounter Summary ---
:1935 Author Organization [facility] Address [address] [place] [address] Care Team Providers Name Role Phone Unavailable Primary Care Provider Unavailable Encounter Details Date Type Department Care Team Description 09/06/2009 PN Conversion Only [facility] [address] [address] [place] [address] Social History Tobacco Use Types Packs/Day Years Used Date Smoking Tobacco: Never Assessed Sex Assigned at Date Recorded Not on file documented as of this encounter Plan of Treatment Not on filedocumented as of this encounter Visit Diagnoses Not on filedocumented in this encounter
--- OUTSIDE RECORDS SUMMARY | 2022-02-24 15:51 | XMS_ITS | Encounter Summary ---
:1935 Author Organization [facility] Address [address] [place] [address] Care Team Providers Name Role Phone Unavailable Primary Care Provider Unavailable Encounter Details Date Type Department Care Team Description 05/13/1989 PN Conversion Only RUBY RAILS DEVELOPER [address] [place] [address] Social History Tobacco Use Types Packs/Day Years Used Date Smoking Tobacco: Never Assessed Sex Assigned at Date Recorded Not on file documented as of this encounter Plan of Treatment Not on filedocumented as of this encounter Visit Diagnoses Not on filedocumented in this encounter
--- OUTSIDE RECORDS SUMMARY | 2022-02-24 15:51 | XMS_ITS | Encounter Summary ---
:1935 Author Organization [facility] Address [address] [place] [address] Care Team Providers Name Role Phone Unavailable Primary Care Provider Unavailable Encounter Details Date Type Department Care Team Description 10/12/2011 [place] [address] [place] [address] Social History Tobacco Use Types Packs/Day Years Used Date Smoking Tobacco: Never Assessed Sex Assigned at Date Recorded Not on file documented as of this encounter Plan of Treatment Not on filedocumented as of this encounter Visit Diagnoses Not on filedocumented in this encounter
--- OUTSIDE RECORDS SUMMARY | 2022-02-24 15:51 | XMS_ITS | Encounter Summary ---
:1935 Author Organization [facility] Address [address] [place] [address] Care Team Providers Name Role Phone Unavailable Primary Care Provider Unavailable Encounter Details Date Type Department Care Team Description 03/03/2004 PN Conversion Only [place] [address] [address] [place] [address] Social History Tobacco Use Types Packs/Day Years Used Date Smoking Tobacco: Never Assessed Sex Assigned at Date Recorded Not on file documented as of this encounter Plan of Treatment Not on filedocumented as of this encounter Visit Diagnoses Not on filedocumented in this encounter
--- OUTSIDE RECORDS SUMMARY | 2022-02-24 15:51 | XMS_ITS | Encounter Summary ---
:1935 Author Organization [facility] Address [address] [place] [address] Care Team Providers Name Role Phone Unavailable Primary Care Provider Unavailable Encounter Details Date Type Department Care Team Description 09/07/2004 PN Conversion Only [facility] [address] [place], [place] [address] Social History Tobacco Use Types Packs/Day Years [...] o'clock position. ACR-BIRADS CATEGORY 2: Benign finding. [id number] Dictating TANG GHOSH RADIOLOGIST Procedure Note Tang [...] o'clock position. ACR-BIRADS CATEGORY 2: Benign finding. [id number] Dictating TANG GHOSH RADIOLOGIST Karissa Kim MD [...] 9 o'clock positi on. ??Marker was placed. srl/[id number] PATHOLOGY: 1. Benign mammary fibrocystic changes ?? [...] 9 o'clock positi on. Marker was placed. srl/[id number] PATHOLOGY: 1. Benign mammary fibrocystic changes wi th multiple foci of ductal epithelial apocrine metaplasia. 2. Focal acute ductal mastitis . 3. Focal periductal chronic xanthomatous mastitis. RECOMMENDATION: 6 mos. mammo f/u. Dictating TANG GHOSH RADIOLOGIST Karissa Kim MD [facility] documented in this encounter Visit Diagnoses Not on filedocumented in this encounter
--- OUTSIDE RECORDS SUMMARY | 2022-02-24 15:51 | XMS_ITS | Encounter Summary ---
:1935 Author Organization [facility] Address [address] [place] [address] Care Team Providers Name Role Phone Unavailable Primary Care Provider Unavailable Encounter Details Date Type Department Care Team Description 03/03/2004 Nursing Visit [facility] Jessica Alaniz MD [address] [place] [address] [phone] Social History Tobacco Use Types Packs/Day Years Used Date Smoking Tobacco: Never Assessed Sex Assigned at Date Recorded Not on file documented as of this encounter Plan of Treatment Not on filedocumented as of this encounter Visit Diagnoses Not on filedocumented in this encounter
--- OUTSIDE RECORDS SUMMARY | 2022-02-24 15:51 | XMS_ITS | Encounter Summary ---
:1935 Author Organization [facility] Address [address] [place] [address] Care Team Providers Name Role Phone Unavailable Primary Care Provider Unavailable Encounter Details Date Type Department Care Team Description 10/05/2011 Notes/Orders [facility] Alicia Nice, Other screening [address] [facility] [place] [address] [place], [place] [phone] [address] Social History Tobacco Use Types Packs/Day [...] and films from 09/06/2009 (bilateral) and films [facility] 08/20/2005 (bilateral). There is no significant interval [...] and films from 09/06/2009 (bilateral) and films [facility] 08/20/2005 (bilateral). There is no significant interval [...]
--- OUTSIDE RECORDS SUMMARY | 2022-02-24 15:51 | XMS_ITS | Encounter Summary ---
:1935 Author Organization [employer] Address [address] [place] [address] Care Team Providers Name Role Phone Unavailable Primary Care Provider Unavailable Encounter Details Date Type Department Care Team Description 08/20/2005 PN Conversion Only [facility] [address] [place] [address] Social History Tobacco Use Types Packs/Day Years [...] malignancy. ACR-BIRADS CATEGORY 2: ??Benign findings . [facility]/ [id number] Dictating ALYCIA LEON RADIOLOGIST Procedure Note Alycia [...] of malignancy. ACR-BIRADS CATEGORY 2: Benign findings. [facility]/ [id number] Dictating ALYCIA LEON RADIOLOGIST Alicia Nice MD [facility] documented in this encounter Visit Diagnoses Not on filedocumented in this encounter
--- OUTSIDE RECORDS SUMMARY | 2022-02-24 15:51 | XMS_ITS | Encounter Summary ---
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 She sees cardiology at [facility] so was under the impression they would [...] ([facility]) documented in this encounter Care Teams Commercial Carpenter Relationship Specialty Start Date End Date Allyson Pool PA-C PCP - General Physician Ordnance Technician 09/26/16 02/28/[address] [place] [address] documented as of this encounter
--- OUTSIDE RECORDS SUMMARY | 2022-02-24 15:51 | XMS_ITS | Encounter Summary ---
:1935 Author Organization [facility] Address [address] [place] [address] Care Team Providers Name Role Phone Unavailable Primary Care Provider Unavailable Encounter Details Date Type Department Care Team Description 09/13/2010 PN Conversion Only [facility] [place] [address] [address] [place] [address] Social History Tobacco Use Types Packs/Day Years [...]
--- OUTSIDE RECORDS SUMMARY | 2022-02-24 15:51 | XMS_ITS | Encounter Summary ---
:1935 Author Organization [facility] Address [address] [place] [address] Care Team Providers Name Role Phone Allyson Pool PA-C Primary Care Provider Reason for Visit Reason Onset Date Comments Medication Refill Question 10/05/2016 Patient Calling Back 10/05/2016 Encounter Details Date Type Department Care Team Description 10/05/2016 Telephone [facility] Allyson Pool PA-C Medication Refill Medicine [address] [facility] Question; Patient [address] [place] [address] [place] [address] [phone] Social History Tobacco Use Types Packs/Day Years [...] filedocumented in this encounter Care Teams Car Cleaner Relationship Specialty Start Date End Date Allyson Pool PA-C PCP - General Physician Computer Programmer Chief 09/26/16 02/28/21 [address] [place] [id number] documented as of this encounter
--- OUTSIDE RECORDS SUMMARY | 2022-02-24 15:51 | XMS_ITS | Encounter Summary ---
:1935 Author Organization [facility] Address [address] [place] [address] Care Team Providers Name Role Phone Allyson Pool PA-C Primary Care Provider Reason for Visit Reason Comments HYPERTENSION blood pressure check Encounter Details Date Type Department Care Team Description 09/29/2016 Office Visit [facility] Allyson Pool PA-C Anxiety (Primary Dx); Medicine [address] [address] Memory deficit [address] [place] [address] [phone] (Wo rk) Social History Tobacco Use Types [...] and memory symptoms Follow up with your city auditor as planned documented in this encounter Progress Notes Allyson Pool PA-C - 09/29/2016 8:40 AM CDT Internal Medicine [facility] - Allyson Pool PA-C Fidelia Vyas 80 y.o. Female : 1935 PN Date of Service: 09/29/2016 Chief Complaint: blood pressure check, memory concern and anxiety Intranet Developer Present: no HPI: Fidelia Vyas is a 80 y.o. female who presents with her daughter for the below concerns. Patient is new to our system. 1.) Blood pressure check. Patient takes amlodipine 2.5 mg daily, [id number] mg twice daily, triamterene-hydrochlorothiazide 37.5-25 mg daily. Patient has known cardiac history. She had a myocardial infarction ??2. Patient has not had a stent. She sees a city auditor at [place]. She has an appointment with them coming [...] to her stress. Past Medical History: CAD, [place], aortic valve sclerosis Social History: non-smoker Allergies: Review of patient's allergies indicates no known allergies. Medications: Medications reviewed and updated in [employer]. Review of Systems: Complete review of systems [...] - patient has follow up with her city auditor in the next couple of weeks at [place]. 2.) Memory concern - normal MMSE (30/30) [...] loss documented in this encounter Care Teams Electrical Assembly Supervisor Relationship Specialty Start Date End Date Allyson Pool PA-C PCP - General Physician Creative Arts Music Therapist 09/26/16 02/28/21 [address] [place] [id number] documented as of this encounter
--- OUTSIDE RECORDS SUMMARY | 2022-02-24 15:51 | XMS_ITS | Encounter Summary ---
:1935 Author Organization [facility] Address [address] [place] [address] Care Team Providers Name Role Phone Unavailable Primary Care Provider Unavailable Encounter Details Date Type Department Care Team Description 02/25/2013 Imaging [facility] Other screening mammogram [address] [place] [address] Social History Tobacco Use Types [...] be communicated to the patient by the [facility] and we will attempt to schedule any [...] be communicated to the patient by the [facility] and we will attempt to schedule any recommended imaging follow up with the patient. Alicia Nice MD [facility] documented in this encounter Visit Diagnoses Diagnosis Other screening mammogram documented in this encounter
--- OUTSIDE RECORDS SUMMARY | 2022-02-24 15:51 | XMS_ITS | Clinical Summary ---
:1935 Author Organization [facility] Address [facility] 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 IA Hyperlipidemia Hypertension CAD (coronary artery disease) History of ventricular tachycardia Obesity History of acute lateral wall IA History of varicose veins Arrhythmia Overview: Pac, [...] 36.8 ??C (98.3 ??F) 05/04/2017 2:42 PM 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 Respiratory Rate 18 05/04/2017 2:42 PM 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 Oxygen Saturation 95% 05/04/2017 2:42 PM 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 Inhaled Oxygen Concentration - - Weight 93.3 kg (205 lb 9.6 oz) 11/21/2017 10:17 AM CDT Height 163.8 cm (5' 4.5) 11/21/2017 10:17 AM CDT Body Mass Index 34.75 11/21/2017 10:17 AM CDT Plan of Treatment Not on file Insurance Payer Benefit Plan / Subscriber ID Effective Phone Address T ype Group Dates BC[place] [id number] 2016-Prese [phone] [phone] [place] [address] BLUE [place] [id number] 2017-Prese [phone] [address] [place] [phone] [place] [address] [place] [id number] 2017-Prese [phone] [address] [place] [id number] [place] [address] Advance Directives For more information, please contact: [phone] Latest Code Status on File Code Status Date Activated Date Inactivated Comments Full Code 05/04/2017 1:24 PM Code Status History Code Status Date Activated Date Inactivated Comments Full Code 05/02/2017 10:28 PM 05/04/2017 1:24 PM Care Teams Nail Specialist Relationship Specialty Start Date End Date Allyson Pool PA PCP - General 04/27/17 [facility] [address] [place] [address] Guillermo Martinez MD MD Cardiology 11/15/17 [address] [place] [phone]
--- OUTSIDE RECORDS SUMMARY | 2022-02-24 15:52 | XMS_ITS | Encounter Summary ---
:1935 Author Organization [facility] Address [address] [facility] [place] [address] Care Team Providers Name Role Phone Allyson Pool Primary Care Provider Reason for Referral Specialty Diagnoses / Procedures Referred By Contact Refer red To Contact Estrella Boone PA-C [address] [place] [address] Referral ID Status Reason Start Date Expiration Date Visits Requ ested Visits Authorized LEMAN Specialty Diagnoses / Procedures Referred By Contact Refer red To Contact Estrella Boone PA-C [address] [place] [address] Referral ID Status Reason Start Date Expiration Date Visits Requ ested Visits [facility]ized [facility] Specialty Diagnoses / Procedures Referred By Contact Refer red To Contact Estrella Boone PA-C [address] [place] [address] Referral ID Status Reason Start Date Expiration Date Visits Requ ested Visits Authorized [facility] Specialty Diagnoses / Procedures Referred By Contact Refer red To Contact Estrella Boone PA-C [address] [place] [address] Referral ID Status Reason Start Date Expiration Date Visits Requ ested Visits Authorized LEMAN Reason for Visit Reason Comments Numbness Auth/Cert Specialty Diagnoses / Procedures Referred By Contact Refer red To Contact Med Surg Diagnoses Generalized muscle weakness Arm heaviness Numbness and tingling in both hands Rh Observation Dep t [address] [place], [place] [address] Phone: Referral ID Status Reason Start Date Expiration Date Visits Requ ested Visits Authorized [id number] 05/03/2017 05/03/2018 1 1 Encounter Details Date Type Department Care Team Description 05/02/2017 - [facility] Lizzy Lopez MD [facility] [address] [place] [address] 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 Observation Roel Geiger MD [address] [place] [address] Arm heaviness; Dept Generalized muscle weakness [address] [place] [address] Social History Tobacco Use Types Packs/Day Years Used Date Smoking Tobacco: Never Alcohol Use Standard Drinks/Week Comments Yes 0 (1 standard drink = 0.6 oz pure alcoho l) couple per week Sex Assigned at Date Recorded Not on file documented as of this encounter Last Filed Vital Signs Vital Sign Reading Time Taken Comments Blood Pressure 115/60 05/04/2017 2:42 PM KETTLEMAN Pulse 67 05/04/2017 2:42 PM KETTLEMAN Temperature 36.8 ??C (98.3 ??F) 05/04/2017 2:42 PM KETTLEMAN Respiratory Rate 18 05/04/2017 2:42 PM KETTLEMAN Oxygen Saturation 95% 05/04/2017 2:42 PM KETTLEMAN Inhaled Oxygen Concentration - - Weight 98.9 kg (218 lb) 05/02/2017 6:13 PM KETTLEMAN Height 167.6 cm (5' 6) 05/02/2017 6:13 PM KETTLEMAN Body Mass Index 35.19 05/02/2017 6:13 PM KETTLEMAN documented in this encounter Discharge Summaries Boone, Estrella Spangler PA-C - 05/04/2017 1:25 PM CST [facility] Outpatient/Observation Unit Discharge Summary Patient ID: Fidelia Vyas [id number] 81 year old 1935 Admit date: 05/02/2017 [...] CAD No cp or active issues S/p TN in 1979, 2000 Continue statin, b-rosy and [...] with an injection of 70mL Isovue-370 (accession [id number]), 50mL Isovue-370 (accession [id number]) IV with scans through the head and [...] with an injection of 70mL Isovue-370 (accession [id number]), 50mL Isovue-370 (accession [id number]) IV with scans through the head and [...] I called the report to Dr. Lizzy oLpez in the emergency room at 7:07 PM. [...] week with repeat BMP. Signed: Estrella Boone LEMAN Associated attestation - Onel hCang MD - 05/09/2017 2:22 PM KETTLEMAN Physician Attestation I, Onel Chang, have reviewed [...] by mouth daily 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, unspecified vessel or lesion type (H) LABETALOL HCL PO Take 100 mg by mouth 0 At Bedtime order for DMEIndications: Equipment being ordered: [employer] Wheels (E0155) and Walker (E0135) 1 each 0 05/04/2017 Generalized muscle Treatment Diagnosis: Impaired gait stability. weakness PARoxetine (PAXIL) 10 MG 10 mg 0 tablet VITAMIN D, Take 1,000 Units by 0 CHOLECALCIFEROL, PO mouth daily DONEPEZIL HCL PO Take 10 mg by mouth 0 daily AMLODIPINE BESYLATE PO Take 2.5 mg [...] I need to be home for Judit. LEMAN Ekaterina Verduzco, OT - 05/03/2017 12:34 PM [...] with cooking, cleaning, med set-up and driving/errands. transitions rn care coordinator called spouse who reports, he has [...] Transfer Skill: Sit to Stand Level of [place]: Sit/Stand contact guard Physical Assist/Nonphysical Assist: Sit/Stand supervision;verbal cues Transfer Skill: Sit to Stand weight-bearing as tolerated Assistive Device for Transfer: Sit/Stand rolling walker Toilet Transfer Toilet Transfer Comments treatment initiated-defer to OT cheyanne note for details Balance Balance Comments decreased balance noted- patient at risk for falls- A for all mobility highly recommended Lower Body Dressing Level of [place]: Dress Lower Body moderate assist (50% patients effort) Grooming Level of [place]: Grooming minimum assist (75% patients effort) Physical [...] decreased ADL's and IADL's- dsg, toileting, bathing, language assistant, driving, ambulating functional and community distances [...] in agreement with plan of care Yes [facility] TM 6 Clicks ?? 2016, Trustees of [facility], under license to [employer]. All rights reserved. 6 Clicks Short Forms Daily Activity Inpatient Short Form [facility]??? 6 Clicks Daily Activity Inpatient Short Form [...] Evaluation Time Total Evaluation Time (Minutes) 15 LEMAN Shaye Torres DO - 05/03/2017 11:12 AM CST [facility] Hospitalist Observation Unit Progress Note Name: Fidelia [...] CAD No cp or active issues S/p TN in 1979, 2000 Continue statin, b-rosy and [...] 1400, please contact the observation unit Physician Welder 2Nd Shift if questions/concerns. Interval History: Seen alone in [...] with an injection of 70mL Isovue-370 (accession [id number]), 50mL Isovue-370 (accession [id number]) IV with scans through the head and [...] with an injection of 70mL Isovue-370 (accession [id number]), 50mL Isovue-370 (accession [id number]) IV with scans through the head and [...] room at 7:07 PM. SHANICE HYATT MD LEMAN Shaye Torres DO - 05/03/2017 8:58 AM [...] level this am and supplement if needed. LEMAN Quyen Sierra, MICHI - 05/03/2017 3:57 AM [...] attempting to exit bed. Continue to monitor. Special Effects Technician Nurse Safe discharge environment identified: Yes Barriers to discharge: Yes Entered by: Quyen Sierra 05/03/2017 7:57 AM Please review provider order for any additional goals. Nurse to notify provider when observation goals have been met and patient is ready for discharge. LEMAN Quyen Sierra RN - 05/03/2017 12:17 AM [...] known, oriented to conversation. Continue to monitor. Special Effects Technician Nurse Safe discharge environment identified: No Barriers to discharge: Yes Entered by: Quyen Sierra 05/03/2017 12:17 AM Please review provider order for any additional goals. Nurse to notify provider when observation goals have been met and patient is ready for discharge. LEMAN Quyen Sierra RN - 05/02/2017 10:42 PM CST ROOM #[facility] Living Situation (if not independent, order SW consult): Independent with Facility name: doorperson: Mayo Vyas, Activity level at baseline: Independent per pt report Activity level on admit: A1 with walker Patient registered to observation; given Patient Bill of Rights; given the opportunity to ask questions about observation status and their plan of care. Patient has been oriented to the observation room, bathroom and call light is in place. Discussed discharge goals and expectations with patient/family. 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 [...] for their recommendations. Minnie Richards RN,BSN, CTS [facility] Care Coordination [phone] LEMAN documented in this encounter ED Notes Quyen Sierra RN - 05/02/2017 9:30 PM CST [facility] ED Nurse Handoff Report Fidelia Vyas is a 81 year old female ED Chief complaint: Numbness . ED Diagnosis: Final diagnoses: Arm heaviness Generalized muscle weakness Allergies: Allergies Allergen Reactions ??? Atorvastatin Muscle aches ??? Morphine Sulfate [Morphine] Nausea and Vomiting Code Status: Full Code Activity level - Baseline/Home: Independent. Activity Level - Current: Independent. Lift room needed: No. Bariatric: No Film Sorter Needed: No Isolation: No. Infection: Not Applicable. [...] CP, SOB, CALVO, n/v/d, lightheadedness/dizziness, visual changes. Pryor negative. ABC intact. A&O x4 . Focused Assessment: Bilateral UE numbness. NIHSS 0 Tests Performed: CT head, neck/angio. Abnormal Results: wnl Treatments provided: nitro SL x1, no relief Family Comments: went home. [id number] at bedside OBS brochure/video discussed/provided to patient: [...] on May 02, 2017 at 10:06 PM LEMAN Beth Weber RN - 05/02/2017 9:05 PM CST No change in L shoulder pain after nitro. SBP drop 30 pts. Will hold off on additional nitro. MD updated. LEMAN Beth Weber RN - 05/02/2017 6:19 PM [...] CP, SOB, CALVO, n/v/d, lightheadedness/dizziness, visual changes. Pryor negative. ABC intact. A&O x4. LEMAN Jaki Winston RN - 05/02/2017 6:08 PM CST Bed: ED28 Expected date: Expected time: Means of arrival: Comments: [place] 330 LEMAN Lizzy Lopez MD - 05/02/2017 6:08 PM [...] previous report from 12/02/08 Rate 58 bpm. WI interval 256 ms. QRS duration 100 ms. QT/QTc 456/447 ms. P-R-T axes 55 -30 14. ECG 2: ECG taken at 2022, ECG read 2030 Sinus bradycardia with 1st degree AV block with premature atrial complexes Otherwise normal ECG No significant change compared to ECG from today 05/02/17 at 1834 Rate 58 bpm. WI interval 222 ms. QRS duration 110 ms. [...] 30 minutes for this patient excluding procedures. [facility] Diagnoses: The patient has stroke symptoms: ED [...] hypoglycemia (or hyperglycemia), head or spinal trauma, REFINING ENGINEER infection, Toxin ingestion and shock state (e.g. sepsis) . National Institutes of Health Stroke Scale Time Performed: 2017 Total Score: 1 (unchanged from last stroke score) Scribe Disclosure: Roxanne Artis, am serving as a scribe at 6:27 PM on 05/02/2017 to document services personally performed by Lizzy Lopez MD based on my observations and the provider's statements to me. [facility] EMERGENCY DEPARTMENT Lizzy Lopez MD 05/02/17 [id number] LEMAN documented in this encounter Miscellaneous Notes Plan [...] with patient/family: Not applicable Discharged with family. LEMAN Plan of Care - Jorge Durham, PT - 05/04/2017 10:42 AM CST Problem: Patient Care Overview Goal: Plan of Care/Patient Progress Review PT: Received call from OBS unit that pt will need a FWW issued for home. Orders placed in chart, will issue FWW soon. LEMAN Plan of Care - Lety Moya RN [...] Return to near baseline physical activity: Yes Special Effects Technician Nurse Safe discharge environment identified: Yes Barriers [...] for an evaluation and was in a fpc, LS clear, room air, denies SOB, HR regular, BS A&Ax4, passing gas, voiding spontaneously, personal alarm in place for safety, calm and cooperative until plan of care reviewed, eager to get home for judit because [place]hosting [place] this year, will continue to monitor and provide supportive cares. LEMAN Plan of Care - Jessie Chacko RN [...] Return to near baseline physical activity: Yes Special Effects Technician Nurse Safe discharge environment identified: No Barriers [...] met and patient is ready for discharge. LEMAN Plan of Care - Jessie Chacko RN [...] Return to near baseline physical activity: Yes Special Effects Technician Nurse Safe discharge environment identified: No Barriers [...] met and patient is ready for discharge. LEMAN Plan of Care - Jamila Coyle RN [...] Return to near baseline physical activity: Yes Special Effects Technician Nurse Safe discharge environment identified: No Barriers to discharge: yes, patient pending TCU vs 03/12 supervision. Entered by: Jamila Coyle 05/03/2017 9:04 PM Please review provider order for any additional goals. Nurse to notify provider when observation goals have been met and patient is ready for discharge. LEMAN Plan of Care - Stephanie Hollis RN [...] to near baseline physical activity: Yes ? Special Effects Technician Nurse Safe discharge environment identified: No Barriers [...] added. POC reviewed with patient, questions answered. LEMAN Plan of Care - Ekaterina Verduzco, OT [...] with cooking, cleaning, med set-up and driving/errands. transitions rn care coordinator had called spouse who reports, he has been A with all ADL's and IADL's has patient's memory has been declining for past 2-3 months. Patient has not dirven for about 2 weeks, patient reports she think she drove 1-2 days ago. Special Effects Technician OT Patient plan for discharge: not stated [...] manage or have access to medications. Home OT/PT/CABLEMAN/RN services be initiated for in home care as well as a community criminal justice social worker to A with further needs. Feel patient [...] recommended. Rationale/Recommendations: see recommendations above for details. LEMAN Plan of Care - Stephanie Hollis RN [...] Return to near baseline physical activity: Yes Special Effects Technician Nurse Safe discharge environment identified: No Barriers to discharge: No Entered by: Stephanie Hollis 05/03/2017 0900 Alert and disoriented to situation, no c/o numbness, K+ 3.2 this AM, protocol added, PT ordered D/Ruben, OT consult ordered. IVSL. LEMAN Pharmacy-Admission Medication History - [facility] - 05/02/2017 9:15 PM CST Admission medication history interview status for this patient is complete. See [facility] admission navigator for allergy information, prior to admission medications and immunization status. Admission medication history interview status for this patient is complete. See [facility] admission navigator for allergy information, prior to admission medications and immunization status. Medication history interview source(s):Family Medication history resources (including written lists, pill bottles, clinic record):med bottles Primary pharmacy:[facility] Changes made to BUSINESS OBJECTS ANALYST medication list: Added: donepezil, triamterene/hctz, vit d [...] by mouth daily Unknown, Entered By History LEMAN documented in this encounter Plan of Treatment [...] AM Arm heaviness Resu lts for this KETTLEMAN procedure are i n the results section. POTASSIUM Timed 05/03/2017 7:07 PM Arm heaviness Results for this KETTLEMAN procedure are i n the results section. XR PELVIS AND HIP STAT 05/03/2017 12:23 Result s for this BILATERAL 2 VIEWS PM KETTLEMAN procedure are in the results section. TROPONIN I Timed 05/03/2017 6:27 AM Arm heaviness Results for this KETTLEMAN procedure are i n the results section. POTASSIUM Routine 05/03/2017 6:27 AM Arm heaviness Results for this KETTLEMAN procedure are i n the results section. MAGNESIUM Routine 05/03/2017 6:27 AM Arm heaviness Results for this KETTLEMAN procedure are i n the results section. TROPONIN I Timed 05/03/2017 12:11 Arm heaviness Results fo r this AM KETTLEMAN procedure are i n the results section. UA MACROSCOPIC WITH STAT 05/02/2017 9:19 PM Arm heaviness R esults for this REFLEX TO MICRO AND KETTLEMAN procedur e are in CULTURE the results section. TROPONIN I STAT 05/02/2017 8:31 PM Arm heaviness Results for this KETTLEMAN procedure are i n the results section. EKG 12-LEAD, TRACING STAT 05/02/2017 8:23 PM R esults for this ONLY KETTLEMAN procedure are i n the results section. CTA HEAD NECK W STAT 05/02/2017 7:24 PM Result s for this CONTRAST KETTLEMAN procedure are i n the results section. CT HEAD W CONTRAST STAT 05/02/2017 7:19 PM Res ults for this KETTLEMAN procedure are i n the results section. XR CHEST 2 VIEWS STAT 05/02/2017 7:11 PM Resul ts for this KETTLEMAN procedure are i n the results section. CT HEAD W/O CONTRAST STAT 05/02/2017 6:51 PM R esults for this KETTLEMAN procedure are i n the results section. ISTAT CREATININE POCT Routine 05/02/2017 6:36 PM Results for this KETTLEMAN procedure are i n the results section. EKG 12-LEAD, TRACING STAT 05/02/2017 6:34 PM R esults for this ONLY KETTLEMAN procedure are i n the results section. CBC WITH PLATELETS & STAT 05/02/2017 6:33 PM R esults for this DIFFERENTIAL KETTLEMAN procedure are i n the results section. TROPONIN I STAT 05/02/2017 6:33 PM Results f or this KETTLEMAN procedure are i n the results section. INR STAT 05/02/2017 6:33 PM Results f or this KETTLEMAN procedure are i n the results section. PARTIAL THROMBOPLASTIN STAT 05/02/2017 6:33 PM Results for this TIME KETTLEMAN procedure are i n the results section. BASIC METABOLIC PANEL STAT 05/02/2017 6:33 PM Results for this KETTLEMAN procedure are i n the results section. GLUCOSE BY METER Routine 05/02/2017 6:32 PM Resul ts for this KETTLEMAN procedure are i n the results section. documented in this encounter Results Glucose by meter (05/04/2017 8:02 AM KETTLEMAN) athologist Signature Glucose 83 70 - 99 05/04/2017 POINT OF CARE mg/dL 8:11 AM KETTLEMAN TEST, GLUCOSE Specimen Anatomical Collection Method Collection Time Receive d Time (Source) Location / / Volume Laterality 05/04/2017 8:02 AM 7 8:11 KETTLEMAN AM KETTLEMAN Roel Geiger MD LAB - BEAKER POCT Performing Organization Address City/State/ZIP Code Phon e Number [facility] POINT OF CARE TEST, GLUCOSE POINT OF CARE TEST, GLUCOSE Potassium (05/03/2017 7:07 PM KETTLEMAN) P athologist Signature Potassium 3.6 3.4 - 5.3 05/03/2017 [facility] mmol/L 7:29 PM [facility] Specimen Anatomical Collection Method Collection Time Receive d Time (Source) Location / / Volume Laterality Blood specimen 05/03/2017 7:07 PM 017 7:08 (specimen) KETTLEMAN PM KETTLEMAN Shaye Torres DO LAB - BLOOD ORDERABLES Performing Organization Address City/[facility]/ZIP Code Phon e Number M [facility] [address], [place] [address] [facility] [address] [phone] XR Pelvis and Hip Bilateral 2 Views (05/03/2017 12:23 PM KETTLEMAN) Anatomical Region Laterality Modality Abdomen/Pelvis Bilateral Digital Radiography Specimen (Source) Anatomical Location Collection Method / Collectio n Time Received Time / Laterality Volume Impressions 05/03/2017 12:43 PM KETTLEMAN IMPRESSION: ??No fracture or dislocation. 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 Arterial calcificat ions noted. SALMA OBRIEN MD Narrative 05/03/2017 12:43 PM KETTLEMAN PELVIS WITH BILATERAL HIP THREE VIEWS ??05/03/2017 [...] IMAGING ORDE RABLES Magnesium (05/03/2017 6:27 AM KETTLEMAN) athologist Signature Magnesium 2.3 1.6 - 2.3 05/03/2017 [facility] mg/dL 9:[address] [facility] Specimen Anatomical Collection Method Collection Time Receive d Time (Source) Location / / Volume Laterality 05/03/2017 6:27 AM 7 6:28 KETTLEMAN AM KETTLEMAN Roel Geiger MD LAB - BLOOD ORDERABLES Performing Organization Address City/[facility]/ZIP [facility] e [facility] [address], [place] [address] [place] [address] [address] [address] [phone] (ABNORMAL) Potassium (05/03/2017 6:27 AM KETTLEMAN) athologist Signature Potassium 3.2 (L) 3.4 - 5.3 05/03/2017 [place] mmol/L 9:54 AM [facility] Specimen Anatomical Collection Method Collection Time Receive d Time (Source) Location / / Volume Laterality 05/03/2017 6:27 AM 7 6:28 KETTLEMAN AM KETTLEMAN Roel Geiger MD LAB - BLOOD ORDERABLES Performing Organization Address City/[facility] e [facility] [address], [place] [address] [place] [address] [address] [address] [phone] Troponin I (05/03/2017 6:27 AM KETTLEMAN) athologist Signature Troponin I ES 0.020 0.000 - 05/03/2017 [place] 0.045 ug/L 7:01 AM [facility] Comment: The 99th percentile for upper reference range is 0.045 ug/L. ??Troponin values in the range of 0.045 - 0.120 ug/L may b e associated with risks of adverse clinical events. Specimen Anatomical Collection Method Collection Time Receive d Time (Source) Location / / Volume Laterality Blood specimen 05/03/2017 6:27 AM 017 6:28 (specimen) KETTLEMAN AM KETTLEMAN Roel Geiger MD LAB - BLOOD ORDERABLES Performing Organization Address [facility] Phon e Number Aleks [facility] [address], [place] [address] [place] [address] [address] [place] [address], [facility] [phone] Troponin I (05/03/2017 12:11 AM KETTLEMAN) athologist Signature Troponin I ES 0.022 0.000 - 05/03/2017 [place] 0.045 ug/L 12:40 AM [facility] Comment: The 99th percentile for upper reference range is 0.045 ug/L. ??Troponin values in the range of 0.045 - 0.120 ug/L may b e associated with risks of adverse clinical events. Specimen Anatomical Collection Method Collection Time Receive d Time (Source) Location / / Volume Laterality Blood specimen 05/03/2017 12:11 7 (specimen) AM KETTLEMAN 12:12 AM KETTLEMAN Roel Geiger MD LAB - BLOOD ORDERABLES Performing Organization Address [facility] e Number Aleks [place] [address], [place] [address] [place] [address] [address] [address], [facility] [phone] (ABNORMAL) UA reflex to Microscopic and Culture (05/02/2017 9:19 PM KETTLEMAN) [facility] gist Method Time Signature Color Urine Yellow 05/02/2017 [facility] 9:52 PM [facility] Appearance Urine Clear 05/02/2017 [facility] 9:52 PM [facility] Glucose Urine Negative NEG^Negat 05/02/2017 [place] angela mg/dL 9:52 PM [facility] Bilirubin Urine Negative NEG^Negat 05/02/2017 [place] angela 9:52 PM [facility] Ketones Urine 5 (A) NEG^Negat 05/02/2017 [place] angela mg/dL 9:52 PM [facility] Specific [place] 1.010 1.003 - 05/02/2017 [place] Urine 1.035 9:52 PM [facility] Blood Urine Small (A) NEG^Negat 05/02/2017 [place] angela 9:52 PM [facility] pH Urine 6.0 5.0 - 7.0 05/02/2017 [place] pH 9:52 PM [facility] Protein Albumin Negative NEG^Negat 05/02/2017 [place] Urine angela mg/dL 9:52 PM [facility] Urobilinogen 4.0 (H) 0.0 - 2.0 05/02/2017 [place] mg/dL mg/dL 9:52 PM [facility] Nitrite Urine Negative NEG^Negat 05/02/2017 [place] angela 9:52 PM [facility] Leukocyte Negative NEG^Negat 05/02/2017 [place] Esterase Urine angela 9:52 PM [facility] Source Midstream 05/02/2017 [place] Urine 9:29 PM [facility] RBC Urine 1 0 - 2 05/02/2017 [facility] /HPF 9:52 PM [facility] WBC Urine 4 (H) 0 - 2 05/02/2017 [facility] /HPF 9:52 PM [facility] Squamous 1 0 - 1 05/02/2017 [place] Epithelial /HPF /HPF 9:[address] [facility] Mucous Urine Present (A) NEG^Negat 05/02/2017 [place] angela /LPF 9:52 PM [facility] Specimen (Source) Anatomical Collection Method Collection Time Re ceived Time Location / / Volume Laterality Examination of URINE SPECIMEN 05/02/2017 9:19 05/02/20 17 9:28 midstream urine OBTAINED BY CLEAN PM KETTLEMAN PM KETTLEMAN specimen CATCH PROCEDURE / (procedure) Unknown Lizzy Lopez MD LAB - URINE ORDERABLES Performing Organization Address City/State/ZIP Code Phon e Number M [place] [address] [address] [facility] [address] [address] [phone] Troponin I (05/02/2017 8:31 PM KETTLEMAN) athologist Signature Troponin I ES 0.016 0.000 - 05/02/2017 [place] 0.045 ug/L 9:13 PM [facility] Comment: The 99th percentile for upper reference range is 0.045 ug/L. ??Troponin values in the range of 0.045 - 0.120 ug/L may b e associated with risks of adverse clinical events. Specimen Anatomical Collection Method Collection Time Receive d Time (Source) Location / / Volume Laterality Blood specimen 05/02/2017 8:31 PM 017 8:50 (specimen) KETTLEMAN PM KETTLEMAN Lizzy Lopez MD LAB - BLOOD ORDERABLES Performing Organization Address City/[facility]/ZIP [facility] [place] Phon e Number [place] [address] [address] [facility] [address] [phone] EKG 12-lead, tracing only (05/02/2017 8:23 PM KETTLEMAN) [facility] gist Method Time Signature Interpretation ECG Click View RADIOLOGY Image link RESULTS to view waveform and result Specimen (Source) Anatomical Collection Method Collection Time Re ceived Time Location / / Volume Laterality 05/02/2017 8:23 PM KETTLEMAN Lizzy Lopez MD ECG ORDERABLES Performing Organization Address City/[facility] Phon e Number RADIOLOGY RESULTS CTA Angiogram Head Neck (05/02/2017 7:24 PM KETTLEMAN) Anatomical Region Laterality Modality Head, SUBRAD CT NEURO, SUBRAD CT NEURO, UMP CT NEURO, Computed Tomography RAD CT Specimen (Source) Anatomical Location Collection Method / Collectio n Time Received Time / Laterality Volume Impressions 05/02/2017 8:49 PM KETTLEMAN IMPRESSION: 1. Tortuous internal carotid arteries. 2. [...] SHANICE HYATT MD Narrative 05/02/2017 8:[address] ANGIOGRAM OF THE HEAD AND NECK WITHOUT AND WITH CONTRAST 05/02/2017 7:24 PM HISTORY: Code stroke. Arm numbness and c onfusion. TECHNIQUE: ??Precontrast localizing scan s were followed by CT angiography with an injection of 70mL Is ovue-370 (accession [id number]), 50mL Isovue-370 (accession R [id number]) IV with scans through the head and [...] an injection of 70mL Is ovue-370 (accession [id number]), 50mL Isovue-370 (accession R [id number]) IV with scans through the head and [...] CT Head w Contrast (05/02/2017 7:19 PM KETTLEMAN) Anatomical Region Laterality Modality Head, NEURO, SUBRAD CT NEURO, SUBRAD CT NEURO, UMP CT Computed Tomography NEURO, RAD CT Specimen (Source) Anatomical Location Collection Method / Collectio n Time Received Time / Laterality Volume Impressions 05/02/2017 8:49 PM KETTLEMAN IMPRESSION: 1. Tortuous internal carotid arteries. 2. [...] SHANICE HYATT MD Narrative 05/02/2017 8:[address] ANGIOGRAM OF THE HEAD AND NECK WITHOUT AND WITH CONTRAST 05/02/2017 7:24 PM HISTORY: Code stroke. Arm numbness and c onfusion. TECHNIQUE: ??Precontrast localizing scan s were followed by CT angiography with an injection of 70mL Is ovue-370 (accession [id number]), 50mL Isovue-370 (accession R [id number]) IV with scans through the head and [...] an injection of 70mL Is ovue-370 (accession [id number]), 50mL Isovue-370 (accession R [id number]) IV with scans through the head and [...] XR Chest 2 Views (05/02/2017 7:11 PM KETTLEMAN) Anatomical Region Laterality Modality Chest Digital Radiography Specimen (Source) Anatomical Location Collection Method / Collectio n Time Received Time / Laterality Volume Impressions 05/02/2017 11:02 PM KETTLEMAN IMPRESSION: The lungs appear clear. Mediastinal prominence may be related to the AP positioning. Upper lob e vascular congestion is suspected. However, ??there is no eviden ce of pleural effusion. EVELIN CHAMORRO MD Narrative 05/02/2017 11:02 PM KETTLEMAN CHEST TWO VIEWS 05/02/2017 7:11 PM HISTORY: [...] CT Head w/o Contrast (05/02/2017 6:51 PM KETTLEMAN) Anatomical Region Laterality Modality Head, SUBRAD CT NEURO, SUBRAD CT NEURO, UMP CT NEURO, Computed Tomography RAD CT Specimen (Source) Anatomical Location Collection Method / Collectio n Time Received Time / Laterality Volume Impressions 05/02/2017 6:59 PM KETTLEMAN IMPRESSION: 1. No acute abnormality. 2. Atrophy of the brain. White matter ch anges consistent with sequelae of small vessel ischemic disease. 3. 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 SHANICE HYATT MD Narrative 05/02/2017 6:[address] SCAN OF THE HEAD WITHOUT CONTRAST [...] ORDERABLES (ABNORMAL) Creatinine POCT (05/02/2017 6:36 PM KETTLEMAN) P athologist Signature Creatinine 0.9 0.52 - 05/02/2017 [facility] 1.04 mg/dL 6:41 PM KETTLEMAN TEST, HANDHELD METER GFR Estimate 60 (L) >60 05/02/2017 [facility] mL/min/1.7 6:41 PM KETTLEMAN TEST, HANDHELD m2 METER GFR Estimate If 73 >60 05/02/2017 [facility] Black mL/min/1.7 6:41 PM KETTLEMAN TEST, HANDHELD m2 METER Specimen Anatomical Collection Method Collection Time Receive d Time (Source) Location / / Volume Laterality 05/02/2017 6:36 PM 7 6:41 KETTLEMAN PM KETTLEMAN Lizzy Lopez MD LAB - BEAKER POCT Performing Organization Address City/State/ZIP Code Phon e Number [place] POINT OF CARE TEST, HANDHELD METER POINT OF CARE TEST, HANDHELD METER EKG 12 lead (05/02/2017 6:34 PM KETTLEMAN) [facility] gist Method Time Signature Interpretation ECG Click View RADIOLOGY Image link RESULTS to view waveform and result Specimen (Source) Anatomical Collection Method Collection Time Re ceived Time Location / / Volume Laterality 05/02/2017 6:34 PM KETTLEMAN Lizzy Lopez MD ECG ORDERABLES Performing Organization Address City/[facility]/ZIP Code Phon e Number RADIOLOGY RESULTS Troponin I (05/02/2017 6:33 PM KETTLEMAN) athologist Signature Troponin I ES 0.016 0.000 - 05/02/2017 [place] 0.045 ug/L 7:04 PM [facility] Comment: The 99th percentile for upper reference range is 0.045 ug/L. ??Troponin values in the range of 0.045 - 0.120 ug/L may b e associated with risks of adverse clinical events. Specimen Anatomical Collection Method Collection Time Receive d Time (Source) Location / / Volume Laterality 05/02/2017 6:33 PM 7 6:40 KETTLEMAN PM KETTLEMAN Lizzy Lopez MD LAB - BLOOD ORDERABLES Performing Organization Address City/[facility]/ZIP [facility] [place] Phon e Number [facility] [address], [place] [address] [facility] [address] [address] [phone] Partial thromboplastin time (05/02/2017 6:33 PM KETTLEMAN) athologist Signature PTT 27 22 - 37 sec 05/02/2017 [facility] 6:[address] [facility] Specimen Anatomical Collection Method Collection Time Receive d Time (Source) Location / / Volume Laterality 05/02/2017 6:33 PM 7 6:40 KETTLEMAN PM KETTLEMAN Lizzy Lopez MD LAB - BLOOD ORDERABLES Performing Organization Address City/State/ZIP Code Phon e Number M [facility] [address], [place] [address] [place] [address] [address] [place], [place] [address], [facility] [phone] INR (05/02/2017 6:33 PM KETTLEMAN) P athologist Signature INR 0.99 0.86 - 1.14 05/02/2017 [facility] 6:55 PM [facility] Specimen Anatomical Collection Method Collection Time Receive d Time (Source) Location / / Volume Laterality 05/02/2017 6:33 PM 7 6:40 KETTLEMAN PM KETTLEMAN Lizzy Lopez MD LAB - BLOOD ORDERABLES Performing Organization Address [facility] Phon e Number M [facility] [address], [place] [address] [place] [address] [address] [place], [place] [address], [facility] [phone] (ABNORMAL) CBC with platelets differential (05/02/2017 6:33 PM KETTLEMAN) [facility] g[facility] Method Time Signature WBC 8.5 4.0 - 05/02/2017 [facility] 11.0 6:45 PM [facility] 10e9/L [facility] RBC Count 4.38 3.8 - 5.2 05/02/2017 [facility] 10e12/L 6:45 PM [facility] Hemoglobin 13.3 11.7 - 05/02/2017 [facility] 15.7 g/dL 6:45 PM [facility] Hematocrit 40.0 35.0 - 05/02/2017 [facility] 47.0 % 6:45 PM [facility] MCV 91 78 - 100 05/02/2017 [facility] fl 6:45 PM [facility] MCH 30.4 26.5 - 05/02/2017 [facility] 33.0 pg 6:45 PM [facility] MCHC 33.3 31.5 - 05/02/2017 [facility] 36.5 g/dL 6:45 PM [facility] RDW 13.7 10.0 - 05/02/2017 [facility] 15.0 % 6:45 PM [facility] Platelet Count 143 (L) 150 - 450 05/02/2017 [facility] 10e9/L 6:45 PM [facility] Diff Method Automated 05/02/2017 [facility] Method 6:45 PM [facility] % Neutrophils 48.0 % 05/02/2017 [facility] 6:45 PM [facility] % Lymphocytes 41.0 % 05/02/2017 [facility] 6:45 PM [facility] % Monocytes 8.5 % 05/02/2017 [facility] 6:45 PM [facility] % Eosinophils 2.0 % 05/02/2017 [facility] 6:45 PM [facility] % Basophils 0.4 % 05/02/2017 [facility] 6:45 PM [facility] % Immature 0.1 % 05/02/2017 [facility] Granulocytes 6:45 PM [facility] Nucleated RBCs 0 0 /100 05/02/2017 [facility] 6:45 PM [facility] Absolute 4.1 1.6 - 8.3 05/02/2017 [facility] Neutrophil 10e9/L 6:45 PM [facility] Absolute 3.5 0.8 - 5.3 05/02/2017 [facility] Lymphocytes 10e9/L 6:45 PM [facility] Absolute 0.7 0.0 - 1.3 05/02/2017 [facility] Monocytes 10e9/L 6:45 PM [facility] Absolute 0.2 0.0 - 0.7 05/02/2017 [facility] Eosinophils 10e9/L 6:45 PM [facility] Absolute 0.0 0.0 - 0.2 05/02/2017 [facility] Basophils 10e9/L 6:45 PM [facility] Abs Immature 0.0 0 - 0.4 05/02/2017 [facility] Granulocytes 10e9/L 6:45 PM [facility] Absolute 0.0 05/02/2017 [facility] Nucleated RBC 6:45 PM [facility] Specimen Anatomical Collection Method Collection Time Receive d Time (Source) Location / / Volume Laterality 05/02/2017 6:33 PM 7 6:40 KETTLEMAN PM KETTLEMAN Lizzy Lopez MD LAB - BLOOD ORDERABLES Performing Organization Address City/State/ZIP Code Phon e Number M [facility] [address], [place] [address] [facility] [address] [place], [place] [address] [facility] [phone] (ABNORMAL) Basic metabolic panel (05/02/2017 6:33 PM KETTLEMAN) athologist Signature Sodium 139 133 - 144 05/02/2017 [place] mmol/L 7:04 PM [facility] Potassium 3.2 (L) 3.4 - 5.3 05/02/2017 [place] mmol/L 7:04 PM [facility] Chloride 103 94 - 109 05/02/2017 [place] mmol/L 7:04 PM [facility] Carbon Dioxide 29 20 - 32 05/02/2017 [place] mmol/L 7:04 PM [facility] Anion Gap 7 3 - 14 05/02/2017 [place] mmol/L 7:04 PM [facility] Glucose 92 70 - 99 05/02/2017 [place] mg/dL 7:04 PM [facility] Urea Nitrogen 18 7 - 30 05/02/2017 [place] mg/dL 7:04 PM [facility] Creatinine 0.84 0.52 - 05/02/2017 [place] 1.04 mg/dL 7:04 PM [facility] GFR Estimate 66 >60 05/02/2017 [place] mL/min/1.7 7:[address] Comment: Non GFR Calc GFR Estimate If 80 >60 mL/min/1.7m2 05/02/2017 7:04 P [facility] Comment: GFR Calc Calcium 8.1 (L) 8.5 - 10.1 mg/dL 05/02/2017 7:[address] [facility] Specimen Anatomical Collection Method Collection Time Receive d Time (Source) Location / / Volume Laterality 05/02/2017 6:33 PM 7 6:40 KETTLEMAN PM KETTLEMAN Lizzy Lopez MD LAB - BLOOD ORDERABLES Performing Organization Address City/State/ZIP Code Phon susy Fink [facility] [address], [place] [address] [facility] [address] [place] [place] [id number] [facility] [phone] Glucose by meter (05/02/2017 6:32 PM KETTLEMAN) P athologist Signature Glucose 85 70 - 99 05/02/2017 PO[facility] CARE mg/dL 6:41 PM KETTLEMAN TEST, GLUCOSE Specimen Anatomical Collection Method Collection Time Receive d Time (Source) Location / / Volume Laterality 05/02/2017 6:32 PM 7 6:41 KETTLEMAN PM KETTLEMAN Lizzy Lopez MD LAB - BEAKER POCT Performing Organization Address City/State/ZIP Code Phon e Number [place] POINT OF CARE TEST, GLUCOSE POINT OF CARE TEST, GLUCOSE documented in this encounter Visit Diagnoses Diagnosis 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, [...] chloride BOLUS New Bag 05/02/2017 7:09 PM KETTLEMAN 1,000 mLs 500 mL/hr Intravenous, 500 mL, ONCE, at 500 mL/hr, Administer over 1 Hours, On Jessica 05/02/17 at 1837, For 1 dose 0.9% sodium chloride BOLUS New 05/02/2017 7:09 PM KETTLEMAN 80 mLs Intravenous, 1,000 mL, ONCE, On Jessica 05/02/17 at 1848, For 1 dose 0.9% sodium chloride infusion New 05/03/2017 8:28 AM KETTLEMAN 1,000 mLs 125 mL/hr at 125 mL/hr, Intravenous, CONTINUOUS, Administer after the bolus., Starting on Jessica 05/02/17 at 1837, Until Sat05/03/17 at 0847 New 05/03/2017 12:31 AM KETTLEMAN 1,000 mLs 125 mL/hr acetaminophen (TYLENOL) tablet 650 mg Given 05/04/2017 8:07 AM KETTLEMAN 650 mg 650 mg, Oral, EVERY 4 HOURS PRN, mild pain, Starting on Jessica 05/02/17 at 2228, Alternate ibuprofen (if ordered) with acetaminophen. Maximum acetaminophen dose from all sources = 75 mg/kg/day not to exceed 4 grams/day. amLODIPine (NORVASC) tablet 2.5 mg Given 05/04/2017 8:07 AM KETTLEMAN 2.5 mg 2.5 mg, Oral, DAILY, First dose on Sat05/04/17 at 0800, Hold for SBP < 110 cholecalciferol (vitamin D3) tablet Given 05/04/2017 8:09 AM KETTLEMAN 1,000 Units 1,000 Units 1,000 Units, Oral, DAILY, First dose on Sat05/03/17 at 0800 Given 05/03/2017 9:16 AM KETTLEMAN 1,000 Units donepezil (ARICEPT) tablet 10 mg Given 05/04/2017 8:08 AM KETTLEMAN 10 mg 10 mg, Oral, DAILY, First dose on Sat05/03/17 at 0800 Given 05/03/2017 9:11 AM KETTLEMAN 10 mg iopamidol (ISOVUE-370) solution 500 mL Given 05/02/2017 7:23 PM KETTLEMAN 120 mLs 500 mL, Intravenous, ONCE, On Jessica 05/02/17 at 1848, For 1 dose labetalol (NORMODYNE) half-tab 50 mg Given 05/04/2017 8:08 AM KETTLEMAN 50 mg 50 mg, Oral, DAILY, First dose on Sat05/03/17 at 0800, Hold if sbp <105 or hr <60 Given 05/03/2017 9:16 AM KETTLEMAN 50 mg nitroGLYcerin (NITROSTAT) sublingual tablet Given 05/02/2017 8:57 PM KETTLEMAN 0.4 mg 0.4 mg 0.4 mg, Sublingual, [...] HOUR PRN, potassium supplementation, Starting on F fl 05/03/17 at 0848, Infuse via PERIPHERAL LINE [...] (K-DUR/KLOR-CON M) CR Given 05/03/2017 3:01 PM KETTLEMAN 20 mEq tablet 20-40 mEq 20-40 mEq, [...] DO NOT CRUSH Given 05/03/2017 11:42 AM KETTLEMAN 40 mEq valsartan (DIOVAN) tablet 40 mg 40 mg, Oral, DAILY, First dose on Sat05/04/17 at 0800 , Hold if sbp <120 documented in this encounter Active and Recently Administered Medications Times are shown in KETTLEMAN. Scheduled Medication Order 05/02/2017 05/03/2017 05/04/2017 0.9% sodium chloride BOLUS (COMPLETED) 1908 (New Bag - Provider: Farrah Riley)2129 (Stopped - Provider: Beth Weber, MICHI) 0828 (Stopped - Provider: Sushila Jones, MICHI) Intravenous, 500 mL, ONCE, at 500 mL/hr, Administer over 1 Hours, On Jessica 05/02/17 at 1837, For 1 dose 0.9% sodium chloride BOLUS (COMPLETED) 1908 (New Bag - Provider: Farrah Riley)1909 (Stopped - Provider: Farrah Riley) Intravenous, 1,000 mL, ONCE, On Jessica 05/02/17 [...] Provider: Farrah Riley) 500 mL, Intravenous, ONCE, On Jessica 05/02/17 [...] CONTINUOUS, A dminister after the bolus., Starting on Jessica 05/02/17 [...] 4 HOURS PRN, mild pa in, Starting on Jessica 05/02/17 at 2228, Alternate [...] 5 MIN PRN, jana st pain, Starting on Jessica 05/02/17 at 2010, For 3 doses ondansetron (ZOFRAN) injection 4 mg(Linked Group 1) 4 mg, Intravenous, EVERY 6 HOURS PRN, na usea, vomiting, Administer over 2-5 Minutes, Starting on Jessica 05/02/17 at 2228, This is Step 1 of nausea and vomiting management. If nausea not resolved in 15 saul chauncey, go to Step 2 prochlorperazine (COMP AZINE). Irritant. For ordered doses up to 4 mg, give IV Push undiluted over 2-5 minutes. ondansetron (ZOFRAN-ODT) ODT tab 4 mg(Linked Group 1) 4 mg, Oral, EVERY 6 HOURS PRN, nausea, v omiting, Starting on Jessica 05/02/17 at 2228, This is Step 1 of nausea and vomiting management. If nausea not resolved in 15 minutes, go to Step 2 prochlorperazine ( COMPAZINE). Do not push through foil lisbet brenna. Peel back foil and gently remove. Place on tongue immediately. Administration with liquid unnecessary potassium chloride (KLOR-CON) Packet 20-40 mEq 20-40 mEq, Oral or Feeding Tube, EVERY 2 HOURS PRN, potassium supplementation, Starting on Sat05/03/17 at 0848, Use if unable to tolerate tablets. If Serum K+ 3.0-3.3, dose = 60 mEq po total dose (40 m Eq x1 followed in 2 hours by 20 mEq x1). Recheck K+ level 4 hours after dose and the next AM. If Serum K+ 2.5-2.9, dose = 80 mEq po total dose (40 mEq Q2H x2). Recheck K+ level 4 hours after dose and th e next AM. If Serum K+ less than 2.5, Se e IV order. Dissolve packet contents in 4-8 ounces of cold water or juice. potassium chloride 10 mEq in 100 mL intermittent infusion wi th 10 mg lidocaine 10 mEq, Intravenous, Administer over 1 H ours, EVERY 1 HOUR PRN, potassium supplementation, Starting on Sat05/03/17 at 0848, Infuse via PERIPHERAL LINE. Use potassium with lidocaine for pain with periph eral administration. If Serum K+ 3.0-3.3 , dose = 10 mEq/hr x4 doses (40 [...] 1 HOUR PRN, potassium supplementation, Starting on Sat05/03/17 at 0848, Infuse via PERIPHERAL LINE or CENTRAL LINE. Use for central line replacement if patient weight less than 65 kg, if patient is on TPN with high potassium content or if unit does not stock 20 mEq bags. If Serum K+ 3.0- 3.3, dose = 10 mEq/hr x4 doses (40 mEq IV tota l dose). Recheck K+ level 2 hours after [...] on Sat05/03/17 at 0848, Infuse via CENTRAL LINE Only. May need EKG if less than 65 kg or on TPN - Max rate is 0.3 mEq/kg/hr fo r patients not on EKG monitoring. If Ser um K+ 3.0-3.3, dose = 20 mEq/hr x2 [...] mEq 1142 (Given - Provider: Stephanie Hollis, MICHI)1501 (Given - Provider: Stephanie Hollis RN) 20-40 mEq, Oral, EVERY 2 HOURS PRN, pota ssium supplementation, Starting on Sat05/03/17 at 0848, Use if able to take PO. If Serum K+ 3.0-3.3, dose = 60 mEq po total dose (40 mEq x1 followed in 2 hours b y 20 mEq x1). Recheck K+ level 4 hours a fter dose and the next AM. If Serum [...] HOURS PRN, nausea, v omiting, Starting on Sat05/02/17 at 2228
This is Step 1 of nausea and vomiting management. If nausea not resolved in 15 minutes, go t o Step 2 prochlorperazine (COMPAZINE). D o not push through foil backing. Peel back foil and gently remove. Place on tongue immediately. Administration with liquid unnecessary
Or ondansetron (ZOFRAN) injection 4 mgJump to med 4 mg, Intravenous, EVERY 6 HOURS PRN, na usea, vomiting, Administer over 2-5 Minutes, Starting on Sat05/02/17 at 2228
This is Step 1 of nausea and vomiting management. If marielos sea not resolved in 15 minutes, go to St ep 2 prochlorperazine (COMPAZINE). Irritant. For ordered doses up to 4 mg, give IV Push undiluted over 2-5 minutes.
documented in this encounter Care Teams Director Of Casino Marketing Relationship Specialty Start Date End Date Allyson Pool PA PCP - General 04/27/17 [facility] [id number] [place] [id number] documented as of this encounter
--- OUTSIDE RECORDS SUMMARY | 2022-02-24 15:52 | XMS_ITS | Encounter Summary ---
:1935 Author Organization [place] Address [address] [facility] [place] [address] Care Team Providers Name Role Phone Ebony, [facility] Primary Care Provider [phone] Reason for Visit (Routine) - Closed Specialty Diagnoses / Procedures Referred By Contact Refer red To Contact Cardiology Diagnoses per serene Aortic murmur 01/30 [facility] Echo cc Procedures [facility] COMPLETE [address] [place], [place] [address] Phone: Fax: Referral ID Status Reason Start Date Expiration Date Visits Requ ested Visits Authorized [id number] Closed 04/12/2016 04/12/2017 1 1 Encounter Details Date Type Department Care Team Description 04/16/2016 Hospital Encounter M [facility] Guillermo Kline , Heart murmur [facility] Heart MD Care [address] [place] [id number] [phone] Social History Tobacco Use Types Packs/Day Years [...] Heart murmur Res ults for this OPTISON ENTRY LEVEL PROGRAMMER procedure are i n the results section. documented in this encounter Results ECHO COMPLETE WITH OPTISON (04/16/2016 9:49 AM ENTRY LEVEL PROGRAMMER) Anatomical Region Laterality Modality Echocardiography Specimen (Source) Anatomical Collection Method Collection Time Re ceived Time Location / / Volume Laterality 04/16/2016 9:05 AM ENTRY LEVEL PROGRAMMER Narrative 04/16/2016 12:22 PM ENTRY LEVEL PROGRAMMER Interpretation Summary [facility] Echocardiography [facility] [address] [place] [id number] Name: FIDELIA LUNDBERG : 1935 Study Date: 04/16/2016 09:05 AM Age: 80 yrs Gender: Female Patient Location: [place] Reason For Study: , Cardiac murmur, unsp [...] be different from the original. Interpretation Summary [facility] [address] [facility] [place] [address] Name: FIDELIA LUNDBERG : 1935 Study Date: 04/16/2016 09:05 AM Age: 80 yrs Gender: Female Patient Location: [place] Reason For Study: , Cardiac murmur, unsp [...] to 1mL with Given 04/16/2016 9:50 AM ENTRY LEVEL PROGRAMMER 6 mLs saline (OPTISON) diluted injection 6 mL 6 mL, Intravenous, ONCE, On Sat04/16/16 at 1000, For 1 dose sodium chloride (PF) 0.9% PF flush 10 mL Given 04/16/2016 9:50 AM ENTRY LEVEL PROGRAMMER 10 mLs 10 mL, Intracatheter, EVERY 8 HOURS, First dose on Sat04/16/16 at 1000 documented in this encounter Care Teams Physical Plant Manager Relationship Specialty Start Date End Date [facility] Medical PCP - General 12/30/15 10/15/16 [id number] [place], [place] [phone] documented as of this encounter
--- OUTSIDE RECORDS SUMMARY | 2022-02-24 15:52 | XMS_ITS | Encounter Summary ---
:1935 Author Organization [place] Address [address] [facility] [place] [address] Care Team Providers Name Role Phone Allyson Pool Primary Care Provider Reason for Visit Reason Comments Fall Encounter Details Date Type Department Care Team Description 04/27/2017 Emergency [facility] Lizzy Lopez MD Hip injury, [facility] Emergency Dep t EMERGENCY PHYSICIANS encounter [address] [place], [place] [address] [facility] [place] [address] [place], [place] [phone] (Wo rk) Social History Tobacco Use Types Packs/Day Years Used Date Smoking Tobacco: Never Alcohol Use Standard Drinks/Week Comments Yes 0 (1 standard drink = 0.6 oz pure alcoho l) couple per week Sex Assigned at Date Recorded Not on file documented as of this encounter Last Filed Vital Signs Vital Sign Reading Time Taken Comments Blood Pressure 142/69 04/27/2017 9:15 PM DIRECTOR FUNERAL Pulse 61 04/27/2017 7:48 PM DIRECTOR FUNERAL Temperature 36.8 ??C (98.2 ??F) 04/27/2017 7:46 PM DIRECTOR FUNERAL Respiratory Rate 16 04/27/2017 7:46 PM DIRECTOR FUNERAL Oxygen Saturation 95% 04/27/2017 9:19 PM DIRECTOR FUNERAL Inhaled Oxygen Concentration - - Weight - [...] of breath Date Last Reviewed: 08/11/2016 ?? [phone] [employer]. [address] [place] [address], [place] [address]. All rights reserved. This information is not intended as a substitute for professional medical care. Always follow your healthcare professional's instructions. CTOR FUNERAL documented in this encounter Medications at Time [...] Patient ambulated to bathroom with assistance. aware. 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 Patient thinks fell on right hip and daughter things it was left hip. Patient states both hips hurt at this time. Pt denies LOC and didn't hit head. Pt denies pain to neck or back. Denies n/v. Pt A&Ox4. ABCs intact. CTOR FUNERAL Lizzy Lopez MD - 04/27/2017 7:30 PM [...] veins Hyperlipidemia Hypertension Lung nodule Obesity Acute PA of lateral wall Past Surgical History: Appendectomy [...] touch throughout the upper and lower extremities; Gjbzxn-cbir-jaobdg testing unremarkable Psychiatric: Mood and affect normal. [...] patient is discharged to home. Scribe Disclosure: Álavro Artis, am serving as a scribe at 10:04 PM on 04/27/2017 to document services personally performed by Lizzy Lopez MD based on my observations and the provider's statements to me. [facility] EMERGENCY DEPARTMENT Lizzy Lopez MD 04/29/17 0234 CTOR FUNERAL documented in this encounter Plan of Treatment Not on filedocumented as of this encounter Procedures Procedure Name Priority Date/Time Associated Diagnosis Comme nts XR PELVIS AND HIP STAT 04/27/2017 8:40 PM Resu lts for this BILATERAL 2 VIEWS DIRECTOR FUNERAL procedure are in the results section. documented in this encounter Results XR Pelvis and Hip Bilateral 2 Views (04/27/2017 8:40 PM DIRECTOR FUNERAL) Anatomical Region Laterality Modality Abdomen/Pelvis Bilateral Digital Radiography Specimen (Source) Anatomical Location Collection Method / Collectio n Time Received Time / Laterality Volume Impressions 04/27/2017 11:00 PM DIRECTOR FUNERAL IMPRESSION: No evidence for fracture, dislocation or significant degenerative change of the pelvis or eit her hip. ARMIDA COOMBS MD Narrative 04/27/2017 11:00 PM DIRECTOR FUNERAL PELVIS AND HIP BILATERAL TWO VIEWS 04/27/2017 [...] (TYLENOL) tablet 650 Given 04/27/2017 8:06 PM DIRECTOR FUNERAL 650 mg mg 650 mg, Oral, ONCE, On 04/27/17 at 1957, For 1 dose, Maximum acetaminophen dose from all sources = 75 mg/kg/day not to exceed 4 grams/day. documented in this encounter Active and Recently Administered Medications Times are shown in DIRECTOR FUNERAL. Scheduled Medication Order 04/25/2017 04/26/2017 04/27/2017 acetaminophen (TYLENOL) tablet 650 mg (COMPLETED) 2005 (Given - Provider: Sommer Baxter RN) 650 mg, Oral, ONCE, On 04/27/17 at 1 957, For 1 dose, Maximum acetaminophen dose from all sources = 75 mg/kg/day not to exceed 4 grams/day. documented in this encounter Care Teams Enrollment Representative Relationship Specialty Start Date End Date Allyson Pool PA PCP - General 04/27/17 [facility] [address] [place] [id number] documented as of this encounter
--- OUTSIDE RECORDS SUMMARY | 2022-02-24 15:52 | XMS_ITS | Encounter Summary ---
:1935 Author Organization [place] Address [address] [facility] [place] [address] Care Team Providers Name Role Phone Les Fair MD Primary Care Provider Reason for Visit Reason Onset Date Comments Refill Request 11/22/2015 [facility] OV 09/2015 Encounter Details Date Type Department Care Team Description 11/22/2015 Refill [facility] Heart Guillermo Martinez , Refill Request ([facility] Karina EVANGELISTA OV 09/2015) [address] [place] [address] [place] [phone] (Wo rk) Social History Tobacco Use [...] Primary documented in this encounter Care Teams Photo Finisher Relationship Specialty Start Date End Date Les Fair MD PCP - General Family Practice 08/23/15 12/29/15 [address] [place] [address] documented as of this encounter
--- OUTSIDE RECORDS SUMMARY | 2022-02-24 15:52 | XMS_ITS | Encounter Summary ---
:1935 Author Organization [place] Address [facility] [place] [address] Care Team Providers Name Role Phone [place], [facility] Primary Care Provider [phone] Reason for Referral - Closed Specialty Diagnoses / Procedures Referred By Contact Refer red To Contact Diagnoses Heart murmur Jesús Torres, DECALER CHECK PROCESSOR [address] [place] [address] Referral ID Status Reason Start Date Expiration Date Visits Requ ested Visits Authorized [id number] Closed 09/26/2016 09/26/2017 1 1 INUOUS PICKLING LINE PICKLER Reason for Visit Reason Comments Results 6 month f/u, echo completed on 04/16 - Closed Specialty Diagnoses / Procedures Referred By Contact Refer red To Contact Diagnoses Heart murmur Guillermo Martinez MD [address] [place] [phone] Referral ID Status Reason Start Date Expiration Date Visits Requ ested Visits Authorized [id number] Closed 04/08/2016 04/08/2017 1 1 Encounter Details Date Type Department Care Team Description 04/20/2016 Office Visit [facility] Guillermo Martinez MD [address] [place] [address] Heart murmur (Primary Dx); [facility] Jesús Torres, HATTIE CHECK PROCESSOR [address] [place] [address] Coronary atherosclerosis due to lipid ri ch plaque (CODE) [address] [place] [phone] Social History Tobacco Use Types Packs/Day Years Used Date Smoking Tobacco: Never Alcohol Use Standard Drinks/Week Comments Yes 0 (1 standard drink = 0.6 oz pure alcoho l) couple per week Sex Assigned at Date Recorded Not on file documented as of this encounter Last Filed Vital Signs Vital Sign Reading Time Taken Comments Blood Pressure 106/68 04/20/2016 1:44 PM CONTINUOUS PICKLING LINE PICKLER Pulse 72 04/20/2016 1:44 PM CONTINUOUS PICKLING LINE PICKLER Temperature - - Respiratory Rate - - Oxygen Saturation - - Inhaled Oxygen Concentration - - Weight 93.8 kg (206 lb 11.2 oz) 04/20/2016 1:44 PM CONTINUOUS PICKLING LINE PICKLER Height 163.8 cm (5' 4.5) 04/20/2016 1:44 PM CONTINUOUS PICKLING LINE PICKLER Body Mass Index 34.93 04/20/2016 1:44 PM CONTINUOUS PICKLING LINE PICKLER documented in this encounter Progress Notes Jesús Torres, HATTIE CHECK PROCESSOR - 04/20/2016 2:32 PM CST HISTORY OF PRESENT ILLNESS: Waqar Lundberg is a delightful 80-year-old female who is here for 6-monthfollowup. In 1980 she had a left circumflex myocardial infarction and continues to have an occluded obtuse marginal 1 branch. In 2002 she presented with chest pressure, anterior wall [place] complicated by ventricular fibrillation cardiac arrest. The LAD had a high-grade lesion and at that point was too tortuous to stent. Likely with today's technology we could. She had a nuclear stress test done in 2008 which looked positive for ischemia. We took her to the Console Operator, and she had a 50%-60% narrowing in [...] CHRISTIE Name: WAQAR LUNDBERG MRN: [id number] Account: [id number] : 1935 Service Date: 04/20/2016 Document: [id number] INUOUS PICKLING LINE PICKLER Jesús Torres APRN CNP - 04/20/2016 2:24 PM CST HPI and Plan: See dictation [id number] No orders of the defined types were [...] CAD (coronary artery disease) 1981 unrecognized Lcx [place], 2003 AWMI with VF: Lcx 100% chronic, [...] [address] [place] [address] INUOUS PICKLING LINE PICKLER documented in this encounter Plan of Treatment Scheduled Referrals Name Type Priority Associated Diagnoses Order S chedule Follow-Up with Referral Routine Heart murmur Expected: Invertebrate Paleontologist (Approximate), Expires: 2016 documented as of this encounter Results ALT (10/16/2016 8:18 AM CDT) athologist Signature ALT 22 0 - 50 U/L [facility] Specimen Anatomical Collection Method Collection Time Receive d Time (Source) Location / / Volume Laterality Blood specimen 10/16/2016 8:18 AM 017 8:23 (specimen) CDT AM CDT Jesús Torres APRN, CNP LAB - BLOOD ORDERABLES Performing Organization Address City/State/ZIP Code Phon e Number M [facility] [address] [address] [facility] [address] [phone] Lipid Profile (10/16/2016 8:18 AM CDT) athologist Signature Cholesterol 123 <200 mg/dL [facility] Triglycerides 62 <150 mg/dL [facility] Comment: Fasting specimen HDL Cholesterol 62 >49 mg/dL [facility] LDL Cholesterol Calculated 49 <100 mg/dL [facility] Comment: Desirable: <100 mg/dl Non HDL Cholesterol 61 <130 mg/dL [facility] Specimen Anatomical Collection Method Collection Time Receive d Time (Source) Location / / Volume Laterality Blood specimen 10/16/2016 8:18 AM 017 8:23 (specimen) CDT AM CDT Jesús Torres APRN CHECK PROCESSOR LAB - BLOOD ORDERABLES Performing Organization Address City/[facility]/ZIP [facility] Phon e Number M [facility] [address] [place], [place] [address] [facility] [address] [phone], [facility] [phone] (ABNORMAL) Basic metabolic panel (10/16/2016 8:18 AM CDT) athologist Signature Sodium 141 133 - 144 [place] mmol/L [facility] Potassium 3.6 3.4 - 5.3 [place] mmolL [facility] Chloride 107 94 - 109 [place] mmol/L [facility] Carbon Dioxide 29 20 - 32 [place] mmolL [facility] Anion Gap 5 3 - 14 [place] mmol/L [facility] Glucose 95 70 - 99 [place] mg/dL [facility] Comment: Fasting specimen Urea Nitrogen 11 7 - 30 mg/dL [facility] Creatinine 0.75 0.52 - 1.04 mg/dL [facility] GFR Estimate 74 >60 mL/min/1.7m2 [facility] Comment: Non GFR Calc GFR Estimate If Black 90 >60 mL/min/1.7m2 F [facility] Comment: GFR Calc Calcium 8.1 (L) 8.5 - 10.1 mg/dL [facility] Specimen Anatomical Collection Method Collection Time Receive d Time (Source) Location / / Volume Laterality Blood specimen 10/16/2016 8:18 AM 017 8:23 (specimen) CDT AM CDT Jesús Torres APRN CHECK PROCESSOR LAB - BLOOD ORDERABLES Performing Organization Address City/[facility]/ZIP [facility] Phon e Arnaud Fink [facility] [address] [place], [place] [address] [facility] [address] [place], [place] [address] [facility] [phone] documented in this encounter Visit Diagnoses Diagnosis Heart murmur - Primary Undiagnosed cardiac murmurs Coronary atherosclerosis due to lipid ri ch plaque (CODE) documented in this encounter Care Teams Apple Press Operator Relationship Specialty Start Date End Date [facility] PCP - General 12/30/15 10/15/16 [address] [place], [place] [id number] documented as of this encounter
--- OUTSIDE RECORDS SUMMARY | 2022-02-24 15:52 | XMS_ITS | Encounter Summary ---
:1935 Author Organization [place] Address [address] [facility] [place] [address] Care Team Providers Name Role Phone Les Fair MD Primary Care Provider Encounter Details Date Type Department Care Team Description 10/03/2015 [facility] Heart Acut e myocardial Clinic [place] infarction of anterior [address], initial episode of 140 care (H) [place] [address] Social History Tobacco Use [...] athologist Signature Sodium 139 133 - 144 [place] mmol/L [facility] Potassium 3.7 3.4 - 5.3 [place] mmol/L [facility] Chloride 110 (H) 94 - 109 [place] mmol/L [facility] Carbon Dioxide 22 20 - 32 [place] mmol/L [facility] Anion Gap 7 3 - 14 [place] mmol/L [facility] Glucose 99 70 - 99 [place] mg/dL [facility] Urea Nitrogen 10 7 - 30 [place] mg/dL [facility] Creatinine 0.80 0.52 - [place] 1.04 mg/dL [facility] GFR Estimate 69 >60 [place] mL/min/1.[address] Comment: Non GFR Calc GFR Estimate If Black 84 >60 mL/min/1.7m2 [facility] Comment: GFR Calc Calcium 8.3 (L) 8.5 - 10.1 mg/dL [facility] Specimen Anatomical Collection Method Collection Time Receive d Time (Source) Location / / Volume Laterality Blood specimen 10/03/2015 8:17 AM 016 8:20 (specimen) CDT AM CDT Guillermo Martinez MD LAB - BLOOD ORDERABLES Performing Organization Address City/State/ZIP Code Phon e Number [facility] [address] [place] [address] [facility] [address] [place] [address], [place] [phone] ALT (10/03/2015 8:17 AM CDT) P athologist Signature ALT 19 0 - 50 U/L [facility] Specimen Anatomical Collection Method Collection Time Receive d Time (Source) Location / / Volume Laterality Blood specimen 10/03/2015 8:17 AM 016 8:20 (specimen) CDT AM CDT Guillermo Martinez MD LAB - BLOOD ORDERABLES Performing Organization Address City/State/ZIP Code Phon e Number [facility] [address] [place] [address] [facility] [address] [place] [address], [place] [phone] Lipid Profile (10/03/2015 8:17 AM CDT) P athologist Signature Cholesterol 129 <200 mg/dL [facility] Triglycerides 85 <150 mg/dL [facility] Comment: Fasting specimen HDL Cholesterol 56 >49 mg/dL [facility] LDL Cholesterol Calculated 56 <100 mg/dL [facility] Comment: Desirable: <100 mg/dl Non HDL Cholesterol 73 <130 mg/dL [facility] Specimen Anatomical Collection Method Collection Time Receive d Time (Source) Location / / Volume Laterality Blood specimen 10/03/2015 8:17 AM 016 8:20 (specimen) CDT AM CDT Guillermo Martinez MD LAB - BLOOD ORDERABLES Performing Organization Address City/State/ZIP Code Phon e Number [place] [address] [address] [place] [address] [phone] [facility] [address] [place] [address], [place] [phone] documented in this encounter Visit Diagnoses Diagnosis Acute myocardial infarction of anterior wall, initial episode of care (H) Acute myocardial infarction of other ant erior wall, initial episode of care documented in this encounter Care Teams Leather Scraper Relationship Specialty Start Date End Date Les Fair MD PCP - General Family Practice 08/23/15 12/29/15 [address] [place] [address] documented as of this encounter
--- OUTSIDE RECORDS SUMMARY | 2022-02-24 15:52 | XMS_ITS | Encounter Summary ---
:1935 Author Organization [place] Address [address] [facility] [place] [address] Care Team Providers Name Role Phone Les Fair MD Primary Care Provider Reason for Visit (Routine) - Closed Specialty Diagnoses / Procedures Referred By Contact Refer red To Contact Radiology / Diagnoses [facility] clinic Guillermo Martinez, Rh Ultrasound [facility] Radiology. Procedures [place] [facility]ATER[place] [address] [place] [phone] Fax: Referral ID Status Reason Start Date Expiration Date Visits Requ ested Visits Authorized [id number] Closed 09/08/2015 09/07/2016 1 1 Encounter Details Date Type Department Care Team Description 10/03/2015 Hospital Encounter M [facility] Guillermo Martinez myocardial [place] Specialty MD Aleks [facility] [address] anterior wall, [address] initial episode of [address] [place], [place] care (H) [place] [phone] Social History Tobacco Use [...] care documented in this encounter Care Teams Hopper Operator Relationship Specialty Start Date End Date Les Fair MD PCP - General Family Practice 08/23/15 12/29/15 [address] [place] [address] documented as of this encounter
--- OUTSIDE RECORDS SUMMARY | 2022-02-24 15:52 | XMS_ITS | Encounter Summary ---
:1935 Author Organization [place] Address [address] [facility] [place] [address] Care Team Providers Name Role Phone None Primary Care Provider Unavailable Encounter Details Date Type Department Care Team Description 10/16/2016 Orders Only [facility] [place] [facility]ip[facility] Heart m urmur; Heart Clinic Hattie Fink APRN Coronary ather osclerosis due to lipid rich plaque (CODE) [facility] [address] [place] [address] [place] [phone] Social History Tobacco Use Types Packs/Day Years [...] Signature ALT 22 0 - 50 U/L [facility] Specimen Anatomical Collection Method Collection Time Receive d Time (Source) Location / / Volume Laterality Blood specimen 10/16/2016 8:18 AM 017 8:23 (specimen) CDT AM CDT Hattie Almanza APRN CLAM BED WORKER LAB - BLOOD ORDERABLES Performing Organization Address City/[facility] Phon e Number M [facility] [address] [place], [place] [address] [facility] [address] [place], [place] [address], [facility] [phone] Lipid Profile (10/16/2016 8:18 AM CDT) athologist Signature Cholesterol 123 <200 mg/dL [facility] Triglycerides 62 <150 mg/dL [facility] Comment: Fasting specimen HDL Cholesterol 62 >49 mg/dL [facility] LDL Cholesterol Calculated 49 <100 mg/dL [facility] Comment: Desirable: <100 mg/dl Non HDL Cholesterol 61 <130 mg/dL [facility] Specimen Anatomical Collection Method Collection Time Receive d Time (Source) Location / / Volume Laterality Blood specimen 10/16/2016 8:18 AM 017 8:23 (specimen) CDT AM CDT Hattie Almanza APRN, CNP LAB - BLOOD ORDERABLES Performing Organization Address City/[facility] Phon e Number M [facility] [address] [place], [place] [address] [facility] [address] [place], [place] [address], [facility] [phone] (ABNORMAL) Basic metabolic panel (10/16/2016 8:18 AM CDT) athologist Signature Sodium 141 133 - 144 [place] mmol/L [facility] Potassium 3.6 3.4 - 5.3 [place] mmol/L [facility] Chloride 107 94 - 109 [place] mmol/L [facility] Carbon Dioxide 29 20 - 32 [place] mmol/L [facility] Anion Gap 5 3 - 14 [place] mmol/L [facility] Glucose 95 70 - 99 [place] mg/dL [facility] Comment: Fasting specimen Urea Nitrogen 11 7 - 30 mg/dL [facility] Creatinine 0.75 0.52 - 1.04 mg/dL [facility] GFR Estimate 74 >60 mL/min/1.7m2 [facility] Comment: Non GFR Calc GFR Estimate If Black 90 >60 mL/min/1.7m2 F [facility] Comment: GFR Calc Calcium 8.1 (L) 8.5 - 10.1 mg/dL [facility] Specimen Anatomical Collection Method Collection Time Receive d Time (Source) Location / / Volume Laterality Blood specimen 10/16/2016 8:18 AM 017 8:23 (specimen) CDT AM CDT Hattie Almanza APRN CLAM BED WORKER LAB - BLOOD ORDERABLES Performing Organization Address City/State/ZIP Code Phon e Number M [facility] [address] [address] [facility] [address] [phone] documented in this encounter Visit Diagnoses Diagnosis Heart murmur Undiagnosed cardiac murmurs Coronary atherosclerosis due to lipid ri ch plaque (CODE) documented in this encounter Care Teams Director Pediatric Relationship Specialty Start Date End Date None PCP - General 10/16/16 01/10/17 documented as of this encounter
--- OUTSIDE RECORDS SUMMARY | 2022-02-24 15:52 | XMS_ITS | Encounter Summary ---
:1935 Author Organization [place] Address [address] [facility] [place] [address] Care Team Providers Name Role Phone Allyson Pool Primary Care Provider Encounter Details Date Type Department Care Team Description 05/28/2017 Documentation Only [facility] and Allyson Pool [place] [address] [place], [place] [phone] Social History Tobacco Use Types Packs/Day Years [...] on filedocumented in this encounter Care Teams Oliver Filter Operator Relationship Specialty Start Date End Date Allyson Pool PA PCP - General 04/27/17 [facility] [address] [place] [address] documented as of this encounter
--- OUTSIDE RECORDS SUMMARY | 2022-02-24 15:52 | XMS_ITS | Encounter Summary ---
:1935 Author Organization [place] Address [address] [facility]. [address] Care Team Providers Name Role Phone [place], [facility] Primary Care Provider [phone] Reason for Visit Reason Comments Hematuria Encounter Details Date Type Department Care Team Description 12/30/2015 Emergency [facility] Marbin Quinn MD Gross hematuria Emergency Dept [facility] [address] [facility] [address] [place], [place] [phone] Social History Tobacco Use Types Packs/Day Years [...] from nose, gums or easy bruising ?? [id number] [place] [address]. All rights reserved. This information is not [...] to concerns that her current symptoms are underwriting service representative of a urinary tract infection, however [...] observations and the provider's statements to me. [facility] EMERGENCY DEPARTMENT Marbin Del Real MD 12/31/15 [...] Component Value Ref Test Analysis Performed At [facility] Range Method Time Signature Color Urine Red [facility] Appearance Urine Cloudy [facility] Glucose Urine Negative NEG [place] mg/dL [facility] Bilirubin Urine Small NEG [place] This is an unconfirmed screening test r esult. A positive result may be false. [facility] Ketones Urine 5 (A) NEG [place] mg/dL [facility] Specific [place] 1.020 1.003 - [place] Urine 1.035 [facility] Blood Urine Large (A) NEG [facility] pH Urine 6.5 5.0 - [place] 7.0 pH [facility] Protein Albumin >600 NEG [place] Urine Quantity not sufficient mg/dL [facility] TO CHECK FOR FAT [facility] () Urobilinogen Normal 0.0 - [place] mg/dL 2.0 [facility] mg/dL [facility] Nitrite Urine Negative NEG [facility] Leukocyte Negative [place]G [place] Esterase Urine [facility] Source Midstream Urine [facility] WBC Urine 0 0 - 2 [facility] /HPF [facility] RBC Urine >182 (H) 0 - 2 [facility] /HPF [facility] Squamous 72 (H) 0 - 1 [facility] Epithelial /HPF /HPF [facility] Specimen Anatomical Collection Method Collection Time Receive d Time (Source) Location / / Volume Laterality Urine specimen URINE SPECIMEN 12/30/2015 12:03 016 (specimen) OBTAINED BY CLEAN PM CDT 12:19 PM C DT CATCH PROCEDURE / Unknown Estrella Worthington MD LAB - URINE ORDERABLES Performing Organization Address City/State/ZIP Code Phon e Number M [facility] [address] [place] [address] [facility] [address] [place], [place] [address] [facility] [phone] documented in this encounter Visit Diagnoses Diagnosis [...] Provider: Shelley Zapata) 200 mg, Oral, ONCE, On Sat12/30/15 at 1222, For 1 dose documented in this encounter Care Teams Structurer Relationship Specialty Start Date End Date [facility] PCP - General 12/30/15 10/15/16 [address] [address] [place], [place] [phone] documented as of this encounter
--- OUTSIDE RECORDS SUMMARY | 2022-02-24 15:52 | XMS_ITS | Encounter Summary ---
:1935 Author Organization [place] Address [address] [facility] [place] [address] Care Team Providers Name Role Phone eLs Fair MD Primary Care Provider Reason for Visit (Routine) - Closed Specialty Diagnoses / Procedures Referred By Contact Refer red To Contact Radiology / Radiology. Diagnoses non EPIC, ok per Michelle, NO Oral Contrast, pt has F/U appt at 1:00pm, need current creat Rh Ct Scan Procedures CT ABDOMEN PELVIS WWO [address] [place] [address] Phone: Fax: Referral ID Status Reason Start Date Expiration Date Visits Requ ested Visits Authorized [id number] Closed 08/23/2015 08/15/2016 1 1 Encounter Details Date Type Department Care Team Description 08/23/2015 Hospital Encounter [facility] Km Doyle tract [facility] MD [place] infection with [address] hematuria, site [place], [place] [address] unspecified [phone] [place] [id number] Social History Tobacco Use Types Packs/Day Years [...] CDT 11:05 AM CDT Km Doyle MD [facility] POCT Performing Organization Address City/State/ZIP Code [...] dose documented in this encounter Care Teams Prover Relationship Specialty Start Date End Date Les Fair MD PCP - General Family Practice 08/23/15 12/29/15 [address] [place] [place] [address] documented as of this encounter
--- OUTSIDE RECORDS SUMMARY | 2022-02-24 15:52 | XMS_ITS | Encounter Summary ---
:1935 Author Organization [place] Address [address] [facility] 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 Guillermo Martinez MD [address] [place] [phone] Referral ID Status Reason Start Date Expiration Date Visits Requ ested Visits Authorized [id number] Closed 10/16/2017 10/16/2018 1 1 Reason for Visit Reason Comments Hyperlipidemia Hypertension Coronary Artery Disease - Closed Specialty Diagnoses / Procedures Referred By Contact Refer red To Contact Diagnoses Heart murmur Hattie Almanza, SENIOR STORAGE ENGINEER OIL WELL GUN PERFORATOR OPERATOR [address] [place] [id number] Referral ID Status Reason Start Date Expiration Date Visits Requ ested Visits Authorized [id number] Closed 09/26/2016 09/26/2017 1 1 Encounter Details Date Type Department Care Team Description 10/16/2016 Office Visit Hattie Luong, HATTIE OIL WELL GUN PERFORATOR OPERATOR [address] [place] [id number] Coronary artery disease involving duckwater coronary artery of 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 CT Angiogram coronary artery ??? Basic metabolic panel ??? Lipid Profile ??? ALT ??? Follow-Up with Tailer Out No orders of the defined types were placed in this encounter. There are no discontinued medications. Encounter Diagnoses Name Primary? Heart murmur ??? Coronary artery disease involving duckwater coronary artery of duckwater heart without angina pectorisYes ??? Benign essential [...] CAD (coronary artery disease) [address], 2003 AWMI with VF: Lcx 100% chronic, [...] INR 0.93 10/24/2005 CC Hattie Almanza APRN [facility] [address] [place] [address] documented in this encounter Plan of Treatment Scheduled Referrals Name Type Priority Associated Diagnoses Order S chedule Follow-Up with Referral Routine Benign essential Expected: 10/16/2017 T[facility] Out hypertension (Approximate), Coronary artery Expires: disease involving duckwater coronary artery of duckwater heart without angina pectoris documented as of this encounter Results ALT (11/21/2017 9:26 AM CDT) athologist Signature ALT 15 0 - 50 U/L 11/21/2017 [facility] 9:57 AM [facility] Specimen Anatomical Collection Method Collection Time Receive d Time (Source) Location / / Volume Laterality Blood specimen 11/21/2017 9:26 AM 018 9:27 (specimen) CDT AM CDT Guillermo Martinez MD LAB - BLOOD ORDERABLES Performing Organization Address City/[facility]/ZIP Code Phon e Number M [facility] [address] [place], [place] [address] [place] [address] [address] [place], [place] [address], [facility] [phone] Lipid Profile (11/21/2017 9:26 AM CDT) athologist Signature Cholesterol 140 <200 mg/dL 11/21/2017 [place] 9:57 AM [facility] Triglycerides 79 <150 mg/dL 11/21/2017 [place] 9:57 AM [facility] Comment: Fasting specimen HDL Cholesterol 62 >49 mg/dL 11/21/2017 9:57 AM [facility] LDL Cholesterol 62 <100 mg/dL 11/21/2017 9:57 AM [facility] Comment: Desirable: <100 mg/dl Non HDL Cholesterol 78 <130 mg/dL 11/21/2017 9:57 AM [facility] Specimen Anatomical Collection Method Collection Time Receive d Time (Source) Location / / Volume Laterality Blood specimen 11/21/2017 9:26 AM 018 9:27 (specimen) CDT AM CDT Guillermo Martinez MD LAB - BLOOD ORDERABLES Performing Organization Address City/[facility]/ZIP [facility] Phon e Number [facility] [address] [place], [place] [address] [facility] [address] [place], [place] [address], [facility] [phone] (ABNORMAL) Basic metabolic panel (11/21/2017 9:26 AM CDT) athologist Signature Sodium 144 133 - 144 11/21/2017 [place] mmol/L 9:57 AM [facility] Potassium 3.6 3.4 - 5.3 11/21/2017 [place] mmol/L 9:57 AM [facility] Chloride 110 (H) 94 - 109 11/21/2017 [place] mmol/L 9:57 AM [facility] Carbon Dioxide 27 20 - 32 11/21/2017 [place] mmol/L 9:57 AM [facility] Anion Gap 7 3 - 14 11/21/2017 [place] mmol/L 9:57 AM [facility] Glucose 92 70 - 99 11/21/2017 [place] mg/dL 9:57 AM [facility] Comment: Fasting specimen Urea Nitrogen 8 7 - 30 mg/dL 11/21/2017 9:57 AM [facility] Creatinine 0.70 0.52 - 1.04 mg/dL 11/21/2017 9:57 AM [facility] GFR Estimate 81 >60 mL/min/1.7m2 11/21/2017 9:57 AM C DT [facility] Comment: Non GFR Calc GFR Estimate If >90 >60 mL/min/1.7m2 11/21/2017 9:57 A M [facility] Comment: GFR Calc Calcium 8.4 (L) 8.5 - 10.1 mg/dL 11/21/2017 9:57 AM [facility] Specimen Anatomical Collection Method Collection Time Receive d Time (Source) Location / / Volume Laterality Blood specimen 11/21/2017 9:26 AM 018 9:27 (specimen) CDT AM T Guillermo Martinez MD LAB - BLOOD ORDERABLES Performing Organization Address City/State/ZIP Code Phon e Number M [facility] [address] [place] [address] [facility] [address] [phone] documented in this encounter Visit Diagnoses Diagnosis Coronary artery disease involving duckwater coronary artery 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
--- OUTSIDE RECORDS SUMMARY | 2022-02-24 15:52 | XMS_ITS | Encounter Summary ---
:1935 Author Organization [place] Address [address] [facility] [place] [address] Care Team Providers Name Role Phone Les Fair MD Primary Care Provider Reason for Referral - Closed Specialty Diagnoses / Procedures Referred By Contact Refer red To Contact Diagnoses Heart murmur Guillermo Martinez MD [address] [place] [address] Referral ID Status Reason Start Date Expiration Date Visits Requ ested Visits Authorized [id number] Closed 04/08/2016 04/08/2017 1 1 Reason for Visit Reason Comments Heart Problem CAD, HTN FU Cardiac testing Carotid US Results Labs - Closed Specialty Diagnoses / Procedures Referred By Contact Refer red To Contact Diagnoses Acute myocardial infarction of other anterior wall, initial episode of care Guillermo Martinez MD [address] [place] [address] Referral ID Status Reason Start Date Expiration Date Visits Requ ested Visits Authorized [id number] Closed 09/21/2015 03/19/2016 1 1 Encounter Details Date Type Department Care Team Description 10/11/2015 Office Visit [facility] Guillermo Martinez Heart tsering urmur (Primary Dx); [facility] Clinic Joy Fink MD Acute myocardial infarction of anterior wall, initial episode of care (H) [address] [facility] [address] [place] [address] [place] [phone] [address] Social History Tobacco Use Types Packs/Day [...] CDT October 11, 2015 Les Fair MD [address] [address] RE:Waqar Lundberg :1935 Dear Les: Thank you [...] CHRISTIE Name: WAQAR LUNDBERG MRN: [id number] Account: [id number] : 1935 Service Date: 10/11/2015 Document: [id number] Guillermo Martinez MD - 10/11/2015 3:13 PM [...] [facility] [address] [place] [address] documented in this encounter Plan of Treatment [...] care documented in this encounter Care Teams Table Games Dealer Relationship Specialty Start Date End Date Les Fair MD PCP - General Family Practice 08/23/15 12/29/15 [address] [place] [address] documented as of this encounter
--- OUTSIDE RECORDS SUMMARY | 2022-02-24 15:53 | XMS_ITS | Encounter Summary ---
:1935 Author Organization [place] Address [address] [place] [address] Care Team Providers Name Role Phone Alicia Nice MD Primary Care Provider Unavailable Reason for Visit Reason Onset Date Comments Refill Request 09/20/2014 amlodipine - appt vt heduled for 06/24/[address] [facility] [address] Martinez Encounter Details Date Type Department Care Team Description 09/20/[address] [facility] Heart Guillermo Martinez , Refill Request Clinic Karina EVANGELISTA (amlodipine - appt [address] scheduled for 06/24/2014 [address] [facility] [address] Martinez) [place] [address] [place] [phone] [address] (Wo rk) Social History Tobacco Use [...] Primary documented in this encounter Care Teams Title Agent Relationship Specialty Start Date End Date Alicia Nice MD PCP - General Family Practice 08/25/12 6 documented as of this encounter
--- OUTSIDE RECORDS SUMMARY | 2022-02-24 15:53 | XMS_ITS | Encounter Summary ---
:1935 Author Organization [employer] Address [address] [facility] [place] [address] Care Team Providers Name Role Phone Alicia Nice MD Primary Care Provider Unavailable Les Fair MD Primary Care Provider [facility] Primary Care Provider [phone] None Primary Care Provider Unavailable Allyson Pool Primary Care Provider Guillermo Martinez MD Unavailable Encounter Details Date Type Department Care Team Description 12/23/2009 Office Visit-[facility] Heart Unknown, Eugene nascimento MD [address] [address] Social History Tobacco Use Types Packs/Day Years Used Date Smoking Tobacco: Never Assessed Sex Assigned at Date Recorded Not on file documented as of this encounter Progress Notes Unknown, MD Yovany - 01/06/2010 8:26 AM CDT Progress Note Created by: ANGELINA Torrez DATE: 12/23/2009 WAQAR LUNDBERG DATE OF : 1935 AGE: [age] years old Referring Physician: ALICIA NICE Referring Clinic: [facility] CURRENT DIAGNOSES 1. - CAD, 414.00 2. Hypertension-Essential (Benign), 401.1 3. - Hyperlipidemia, 272.4 4. Status post-PTCA, V45.82 5. Obesity-(<LT>100 ), 278.00 6. 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 Ventricular tachycardia, 427.1 ALLERGIES [...] disease, S/P myocardial infarction-anterior, VF arrest with VA, NSVT immed after VA,Lat VA 1980, Ant VA (Vfib) 10-13 Cath-PTCA LAD(too tortuous for stent), [...] 2008 Nuclear Results: 11/18 Defect.-extensive anterior,apical+anteroseptal non-transmural VA in LAD wi/significant,mod.corina-infarct isch.Second defect.- extensive lateral VA in the CFX artery w/no reversible isch.Third [...] - lives with ; Place of - [place]; REVIEW OF SYSTEMS GENERAL weight loss, 11 [...] on filedocumented in this encounter Care Teams Dean Of Students Relationship Specialty Start Date End Date Alicia Nice MD PCP - General Family Practice 08/25/12 6 Les Fair MD PCP - General Family Practice 08/23/15 12/29/15 [address] [place] [address] [facility] PCP - General 12/30/15 10/15/16 [address] [place] [address] None PCP - General 10/16/16 01/10/17 Allyson Pool PA PCP - General 04/27/17 [facility] [address] [place] [address] Guillermo Martinez MD MD Cardiology 11/15/17 [address] [place] [phone] documented as of this encounter
--- OUTSIDE RECORDS SUMMARY | 2022-02-24 15:53 | XMS_ITS | Encounter Summary ---
:1935 Author Organization [place] Address [facility] [place] [address] Care Team Providers Name Role Phone Alicia Nice MD Primary Care Provider Unavailable Les Fair MD Primary Care Provider [facility] Primary Care Provider [phone] None Primary Care Provider Unavailable Allyson Pool Primary Care Provider Guillermo Martinez MD Unavailable Encounter Details Date Type Department Care Team Description 12/01/2008 Office Visit-[facility] Noble mandel, Clinic Joy Fink, VENDING MACHINE COIN COLLECTOR INSPECTION MANAGER [address] [facility] [address] [facility] [address] [place] [address] [place] [phone] (Wo rk) Social History Tobacco Use Types Packs/Day Years Used Date Smoking Tobacco: Never Assessed Sex Assigned at Date Recorded Not on file documented as of this encounter Progress Notes Jesús Almanza, ADMIN ASSISTANT - 12/13/2008 8:47 PM CDT Progress Note Created by: Jesús Almanza, N.P. DATE: 12/01/2008 WAQAR LUNDBERG DATE OF : 1935 AGE: [age] years old Referring Physician: ALICIA NICE Referring Clinic: [facility] CURRENT DIAGNOSES 1. - CAD, [...] angiogr HISTORY OF PRESENT ILLNESS dictated to [facility] Hospital Line job ID [id number] PAST HISTORY Past Medical Illnesses: hyperlipidemia, hypertension, [...] - lives with ; Place of - [place]; REVIEW OF SYSTEMS GENERAL weight loss, 2 [...] filedocumented in this encounter Care Teams Service Officer Relationship Specialty Start Date End Date Alicia Nice MD PCP - General Family Practice 08/25/12 6 Les Fair MD PCP - General Family Practice 08/23/15 12/29/15 [address] [place] [address] [facility] PCP - General 12/30/15 10/15/16 [address] [place] [address] None PCP - General 10/16/16 01/10/17 Allyson Pool PA PCP - General 04/27/17 [facility] [address] [place] [address] Guillermo Martinez MD MD Cardiology 11/15/17 [address] [place] [phone] documented as of this encounter
--- OUTSIDE RECORDS SUMMARY | 2022-02-24 15:53 | XMS_ITS | Encounter Summary ---
:1935 Author Organization [place] Address [address] [place] [address] Care Team Providers Name Role Phone Unavailable Primary Care Provider Unavailable Encounter Details Date Type Department Care Team Description 09/06/2011 Hospital Laboratory [facility] Guillermo Martinez, [facility] Results [address] [place] [address] (Wo rk) Social History Tobacco [...] athologist Signature Sodium 142 133 - 144 [place] mmol/L [facility] Potassium 4.2 3.4 - 5.3 [place] mmol/L [facility] Chloride 106 94 - 109 [place] mmol/L [facility] Carbon Dioxide 29 20 - 32 [place] mmol/L [facility] Anion Gap 7 6 - 17 [place] mmol/L [facility] Glucose 85 60 - 99 [place] mg/dL [facility] Urea Nitrogen 11 7 - 30 [place] mg/dL [facility] Creatinine 0.88 0.52 - [place] 1.04 mg/dL [facility] GFR Estimate 63 >60 [place] mL/min/1.7 [facility] m2 [facility] GFR Estimate If 76 >60 [place] Black mL/min/1.7 [facility] m2 [facility] Calcium 8.4 (L) 8.5 - 10.4 [place] mg/dL [facility] Specimen Anatomical Collection Method Collection Time Receive d Time (Source) Location / / Volume Laterality 09/06/2011 9:55 AM 2 CDT 10:24 AM CDT Guillermo Martinez MD LAB - BLOOD ORDERABLES Performing Organization Address City/State/ZIP Code Phon e Number [place] [address] [place], [place] [address] [facility] (ABNORMAL) Lipid Profile (09/06/2011 9:55 AM CDT) athologist Signature Cholesterol 135 0 - 200 [place] mg/dL [facility] Comment: LDL Cholesterol is the primary guide to therapy. The NCEP recommends further evaluation of: patients with cholesterol greater than 200 mg/dL if additional risk facto rs are present, cholesterol greater than 240 mg/dL, triglycerides greater than 1 50 mg/dL, or HDL less than 40 mg/dL. Triglycerides 71 0 - 150 mg/dL [facility] HDL Cholesterol 49 (L) 50 - 110 mg/dL [facility] LDL Cholesterol Calculated 72 0 - 129 mg/dL [facility] Comment: LDL Cholesterol is the primary guide to therapy: LDL-cholesterol goal in high risk patients is <100 mg/dL and in very high risk patients is <70 mg/dL. VLDL-Cholesterol 14 0 - 30 mg/dL [facility] Cholesterol/HDL Ratio 2.8 0.0 - 5.0 [facility] Specimen Anatomical Collection Method Collection Time Receive d Time (Source) Location / / Volume Laterality 09/06/2011 9:55 AM 2 CDT 10:24 AM CDT Guillermo Martinez MD LAB - BLOOD ORDERABLES Performing Organization Address City/State/ZIP Code [facility] susy Fink [place] [address] [place], [place] [address] [facility] ALT (09/06/2011 9:55 AM CDT) athologist Signature ALT 14 0 - 50 U/L [facility] Specimen Anatomical Collection Method Collection Time Receive d Time (Source) Location / / Volume Laterality 09/06/2011 9:55 AM 2 CDT 10:24 AM CDT Guillermo Martinez MD LAB - BLOOD ORDERABLES Performing Organization Address [facility] Code [facility] susy Fink [facility] [address] [place], [place] [address] [facility] documented in this encounter Visit Diagnoses Not on filedocumented in this encounter
--- OUTSIDE RECORDS SUMMARY | 2022-02-24 15:53 | XMS_ITS | Encounter Summary ---
:1935 Author Organization [place] Address [address] [facility] [place] [address] Care Team Providers Name Role Phone Alicia Nice MD Primary Care Provider Unavailable Les Fair MD Primary Care Provider Encounter Details Date Type Department Care Team Description 12/02/2008 Historic Results [facility] Heart Unknown, [facility] [address] [place] [address] Social History Tobacco Use Types [...] filedocumented in this encounter Care Teams Cuff Folder Relationship Specialty Start Date End Date Alicia Nice MD PCP - General Family Practice 08/25/12 6 Les Fair MD PCP - General Family Practice 08/23/15 12/29/15 [address] [place] [address] documented as of this encounter
--- OUTSIDE RECORDS SUMMARY | 2022-02-24 15:53 | XMS_ITS | Encounter Summary ---
:1935 Author Organization [place] Address [facility] [place] [address] Care Team Providers Name Role Phone Alicia Nice MD Primary Care Provider Unavailable Les Fair MD Primary Care Provider [facility] Primary Care Provider [phone] Primary Care Provider Unavailable Allyson Pool Primary Care Provider Guillermo Martinez MD Unavailable Encounter Details Date Type Department Care Team Description 08/26/2009 Office Visit-[facility] Noble mandel, Clinic [place] Fink, INFECTION CONTROL NURSE SCRUB TECH [address] [facility] [address] [facility] [address] [place] [address] [place] [address] (Wo rk) Social History Tobacco Use Types Packs/Day Years Used Date Smoking Tobacco: Never Assessed Sex Assigned at Date Recorded Not on file documented as of this encounter Progress Notes Jesús Almanza, SHELLFISH MEAT SEPARATOR OPERATOR - 12/22/2009 11:57 AM CDT Progress Note Created by: Jesús Almanza, N.P. DATE: 08/26/2009 WAQAR LUNDBERG DATE OF : 1935 AGE: [age] years old Referring Physician: ALICIA NICE Referring Clinic: [facility] CURRENT DIAGNOSES 1. - CAD, 414.00 2. Hypertension-Essential (Benign), 401.1 3. - Hyperlipidemia, 272.4 4. Status post-PTCA, V45.82 5. Obesity-(<LT>100 ), 278.00 6. [place]-Acute Anterior, 410.11 7. Ventricular tachycardia, [...] after [place],Lat OH 1980, Ant [place] (Vfib) 6- Cath-PTCA LAD(too tortuous for stent), [...] 2008 Nuclear Results: 11/18 Defect.-extensive anterior,apical+anteroseptal non-transmural [place] in LAD wi/significant,mod.corina-infarct isch.Second defect.- extensive lateral [place] in the CFX artery w/no reversible isch.Third [...] - lives with ; Place of - [place]; REVIEW OF SYSTEMS GENERAL weight loss, 3 [...] ended up not being reproduced in the Hospice Home Health Aide. TODAYS ORDERS 1. F/U with Jesús Almanza, MSN, ANP 2 months 2. Lipid profile/ALT 2 months Jesús Almanza, N.P. documented in this encounter Plan of Treatment Not on filedocumented as of this encounter Visit Diagnoses Not on filedocumented in this encounter Care Teams Marketing Officer Relationship Specialty Start Date End Date Alicia Nice MD PCP - General Family Practice 08/25/12 6 Les Fair MD PCP - General Family Practice 08/23/15 12/29/15 [address] [place] [address] [facility] PCP - General 12/30/15 10/15/16 [address] [place] [address] None PCP - General 10/16/16 01/10/17 Allyson Pool PA PCP - General 04/27/17 [facility] [address] [place] [address] Guillermo Martinez MD MD Cardiology 11/15/17 [address] [place] [phone] documented as of this encounter
--- OUTSIDE RECORDS SUMMARY | 2022-02-24 15:53 | XMS_ITS | Encounter Summary ---
:1935 Author Organization [place] Address [address] [place] [address] Care Team Providers Name Role Phone Alicia Nice MD Primary Care Provider Unavailable Reason for Visit Reason Onset Date Comments Refill Request 10/19/2013 Amlodipine Encounter Details Date Type Department Care Team Description 10/19/2013 Refill [facility] Heart Guillermo Martinez , Refill Request Clinic Karina EVANGELISTA (Amlodipine) [address] [facility] [address] [facility] [address] [place] [address] [place] [phone] [address] (Wo rk) Social History Tobacco Use Types Packs/Day Years Used Date Smoking Tobacco: Never Assessed Sex Assigned at Date Recorded Not on file documented as of this encounter Plan of Treatment Not on filedocumented as of this encounter Visit Diagnoses Diagnosis Essential hypertension, benign - Primary documented in this encounter Care Teams Granite Polisher Apprentice Relationship Specialty Start Date End Date Alicia Nice MD PCP - General Family Practice 08/25/12 6 documented as of this encounter
--- OUTSIDE RECORDS SUMMARY | 2022-02-24 15:53 | XMS_ITS | Encounter Summary ---
:1935 Author Organization [place] Address [address] [facility] [place] [address] Care Team Providers Name Role Phone Alicia Nice MD Primary Care Provider Unavailable Encounter Details Date Type Department Care Team Description 09/10/[address] [facility] Results Hattie M, SR. MEDIA MANAGER DIRECTOR NURSES' REGISTRY [address] [place] [address] (Wo rk) Social History Tobacco Use Types [...] Signature Sodium 145 (H) 133 - 144 [place] mmol/L [facility] Potassium 4.0 3.4 - 5.3 [place] mmol/L [facility] Chloride 107 94 - 109 [place] mmol/L [facility] Carbon Dioxide 29 20 - 32 [place] mmol/L [facility] Anion Gap 9 6 - 17 [place] mmol/L [facility] Glucose 90 60 - 99 [place] mg/dL [facility] Urea Nitrogen 13 7 - 30 [place] mg/dL [facility] Creatinine 0.84 0.52 - [place] 1.04 mg/dL [facility] GFR Estimate 66 >60 [place] mL/min/1.[address] LAB GFR Estimate If 80 >60 [place] Black mL/min/1.[address] LAB Calcium 8.8 8.5 - 10.4 [place] mg/dL [facility] Specimen Anatomical Collection Method Collection Time Receive d Time (Source) Location / / Volume Laterality 09/10/2013 8:07 AM 4 8:24 CDT AM CDT Hattie Almanza APRN DIRECTOR NURSES' REGISTRY LAB - BLOOD ORDERABLES Performing Organization Address City/State/ZIP Code Phon e Number [place] [address] [place], [place] [address] [facility] (ABNORMAL) Lipid Profile (09/10/2013 8:07 AM CDT) P athologist Signature Cholesterol 140 <200 mg/dL [facility] Comment: LDL Cholesterol is the primary guide to therapy. The NCEP recommends further evaluation of: patients with cholesterol greater than 200 mg/dL if additional risk facto rs are present, cholesterol greater than 240 mg/dL, triglycerides greater than 1 50 mg/dL, or HDL less than 40 mg/dL. Triglycerides 94 0 - 150 mg/dL [facility] HDL Cholesterol 45 (L) >50 mg/dL [facility] LDL Cholesterol Calculated 76 0 - 129 mg/dL [facility] Comment: LDL Cholesterol is the primary guide to therapy: LDL-cholesterol goal in high risk patients is <100 mg/dL and in very high risk patients is <70 mg/dL. VLDL-Cholesterol 19 0 - 30 mg/dL [facility] Cholesterol/HDL Ratio 3.1 0.0 - 5.0 [facility] Specimen Anatomical Collection Method Collection Time Receive d Time (Source) Location / / Volume Laterality 09/10/2013 8:07 AM 4 8:24 CDT AM CDT Hattie Almanza APRN DIRECTOR NURSES' REGISTRY LAB - BLOOD ORDERABLES Performing Organization Address City/State/ZIP Code Phon susy Fink [facility] [address] [place], [place] [address] [facility] ALT (09/10/2013 8:07 AM CDT) P athologist Signature ALT 21 0 - 50 U/L [facility] Specimen Anatomical Collection Method Collection Time Receive d Time (Source) Location / / Volume Laterality 09/10/2013 8:07 AM 4 8:24 CDT AM CDT Hattie Almanza APRN DIRECTOR NURSES' REGISTRY LAB - BLOOD ORDERABLES Performing Organization Address City/[facility]/ZIP Code Phon susy Fink [place] [address] [place], [place] [address] [facility] documented in this encounter Visit Diagnoses Not on filedocumented in this encounter Care Teams Laborer Adjustable Steel Joist Relationship Specialty Start Date End Date Alicia Nice MD PCP - General Family Practice 08/25/12 6 documented as of this encounter
--- OUTSIDE RECORDS SUMMARY | 2022-02-24 15:53 | XMS_ITS | Encounter Summary ---
:1935 Author Organization [place] Address [address] [facility] [place] [address] Care Team Providers Name Role Phone Shawn Nice MD Primary Care Provider Unavailable Les Fair MD Primary Care Provider [facility] Primary Care Provider [phone] Primary Care Provider Unavailable Allyson Pool Primary Care Provider Guillermo Martinez MD Unavailable Encounter Details Date Type Department Care Team Description 01/18/2009 Office Visit-[facility] Heart Saw Martinez, Clinic Karina EVANGELISTA [address] [facility] [address] [facility] [address] [place] [address] [place] [address] (Wo rk) Social History [...] old Referring Physician: SHAWN NICE Referring Clinic: [facility] CURRENT DIAGNOSES 1. - CAD, 414.00 2. Hypertension-Essential (Benign), 401.1 3. - Hyperlipidemia, 272.4 4. Status post-PTCA, V45.82 5. Obesity-(<LT>100 ), 278.00 6. [place]-Acute Anterior, 410.11 7. Ventricular tachycardia, 427.1 ALLERGIES [...] disease, S/P myocardial infarction-anterior, VF arrest with [place], NSVT immed after [place],Lat [place] 1980, Ant [place] (Vfib) 10-13 Cath-PTCA LAD(too tortuous for stent), [...] on filedocumented in this encounter Care Teams Extractor Machine Operator Relationship Specialty Start Date End Date Shawn Nice MD PCP - General Family Practice 08/25/12 6 Les Fair MD PCP - General Family Practice 08/23/15 12/29/15 [address] [place] [address] [facility] PCP - General 12/30/15 10/15/16 [address] [facility] [place] [place] [address] None PCP - General 10/16/16 01/10/17 Allyson Pool PA PCP - General 04/27/17 [facility] [address] [place] [address] Guillermo Martinez MD MD Cardiology 11/15/17 [address] [facility] [address] [place] [phone] documented as of this encounter
--- OUTSIDE RECORDS SUMMARY | 2022-02-24 15:53 | XMS_ITS | Encounter Summary ---
:1935 Author Organization [place] Address [address] [facility] [place] [address] Care Team Providers Name Role Phone Unavailable Primary Care Provider Unavailable Encounter Details Date Type Department Care Team Description 08/17/2010 Hospital Laboratory [facility] Lety Results [facility] [address] [place] [address] (Wo rk) Social History Tobacco Use Types [...] athologist Signature Sodium 141 133 - 144 [place] mmol/L [facility] Potassium 3.9 3.4 - 5.3 [place] mmol/L [facility] Chloride 102 94 - 109 [place] mmol/L [facility] Carbon Dioxide 32 20 - 32 [place] mmol/L [facility] Anion Gap 7 6 - 17 [place] mmol/L [facility] Glucose 97 60 - 99 [place] mg/dL [facility] Urea Nitrogen 18 7 - 30 [place] mg/dL [facility] Creatinine 1.02 0.52 - [place] 1.04 mg/dL [facility] GFR Estimate 53 (L) >60 [place] mL/min/1.[address] LAB GFR Estimate If 64 >60 [place] Black mL/min/1.7 [facility] m2 [facility] Calcium 8.9 8.5 - 10.4 [place] mg/dL [facility] Specimen Anatomical Collection Method Collection Time Receive d Time (Source) Location / / Volume Laterality 08/17/2010 8:56 AM 1 9:07 CDT AM CDT Hattie Almanza LAB - BLOOD ORDERABLES Performing Organization Address City/State/ZIP Code Phon e Number [place] [address] [place], [place] [address] [facility] Lipid panel (08/17/2010 8:56 AM CDT) P athologist Signature Cholesterol 136 0 - 200 [place] mg/dL [facility] Comment: LDL Cholesterol is the primary guide to therapy. The NCEP recommends further evaluation of: patients with cholesterol <200 mg/dL if additional risk factors are present, cholesterol >240 mg/dL, triglycerides >150 mg/dL, or HDL <40 mg/dL. Triglycerides 103 0 - 150 mg/dL [facility] HDL Cholesterol 58 50 - 110 mg/dL [facility] LDL Cholesterol Calculated 57 0 - 129 mg/dL [facility] Comment: LDL Cholesterol is the primary guide to therapy: LDL-cholesterol goal in high risk patients is <100 mg/dL and in very high risk patients is <70 mg/dL. VLDL-Cholesterol 21 0 - 30 mg/dL [facility] Cholesterol/HDL Ratio 2.3 0.0 - 5.0 [facility] Specimen Anatomical Collection Method Collection Time Receive d Time (Source) Location / / Volume Laterality 08/17/2010 8:56 AM 1 9:07 CDT AM CDT Hattie Almanza LAB - BLOOD ORDERABLES Performing Organization Address City/[facility]/ZIP Code Phon e Number Aleks [facility] [address] [place], [place] [address] [facility] ALT (08/17/2010 8:56 AM CDT) athologist Signature ALT 25 0 - 50 U/L [facility] Specimen Anatomical Collection Method Collection Time Receive d Time (Source) Location / / Volume Laterality 08/17/2010 8:56 AM 1 9:07 CDT AM CDT Hattie Almanza LAB - BLOOD ORDERABLES Performing Organization Address City/[facility] Code Phon e Number Aleks [facility] [address] [place], [place] [address] [facility] documented in this encounter Visit Diagnoses Not on filedocumented in this encounter
--- OUTSIDE RECORDS SUMMARY | 2022-02-24 15:53 | XMS_ITS | Encounter Summary ---
:1935 Author Organization [place] Address [address] [facility] [place] [address] Care Team Providers Name Role Phone Unavailable Primary Care Provider Unavailable Encounter Details Date Type Department Care Team Description 12/02/2008 Historic Results [facility] Guillermo Martinez, [address] [place] [address] [address] [facility] [phone] [address] [place] [address] (Wo rk) Social History Tobacco [...] LAB - ENTER/EDIT POCT Performing Organization Address [facility] Phon e Number [facility] Hemoglobin (12/02/2008 8:07 AM CDT) P athologist Signature Hemoglobin 13.4 11.7 - 15.7 [place] g/dL Specimen Anatomical Collection Method Collection Time Receive d Time (Source) Location / / Volume Laterality 12/02/2008 8:07 AM 9 8:13 CDT AM CDT Guillermo Martinez MD LAB - BLOOD ORDERABLES Performing Organization Address [facility] Phon e Number [facility] INR (12/02/2008 8:07 AM CDT) P athologist Signature INR 1.00 0.86 - 1.14 [facility] Specimen Anatomical Collection Method Collection Time Receive d Time (Source) Location / / Volume Laterality 12/02/2008 8:07 AM 9 8:13 CDT AM CDT Guillermo Martinez MD LAB - BLOOD ORDERABLES Performing Organization Address [facility] Phon e Number [facility] Platelet count (12/02/2008 8:07 AM CDT) P athologist Signature Platelet Count 179 150 - 450 [place] 10e9/L Specimen Anatomical Collection Method Collection Time Receive d Time (Source) Location / / Volume Laterality 12/02/2008 8:07 AM 9 8:13 CDT AM CDT Guillermo Martinez MD LAB - BLOOD ORDERABLES Performing Organization Address [facility] Phon e Number [facility] Partial thromboplastin time [...]
--- OUTSIDE RECORDS SUMMARY | 2022-02-24 15:53 | XMS_ITS | Encounter Summary ---
:1935 Author Organization [place] Address [address] [facility] [place] [address] Care Team Providers Name Role Phone Alicia Nice MD Primary Care Provider Unavailable Les aFir MD Primary Care Provider Encounter Details Date Type Department Care Team Description 11/29/2008 Historic Results [facility] Heart Unknown, [facility] [address] [place] [address] Social History Tobacco Use Types [...] on filedocumented in this encounter Care Teams Recovery Advocate Relationship Specialty Start Date End Date Alicia Nice MD PCP - General Family Practice 08/25/12 6 Les Fair MD PCP - General Family Practice 08/23/15 12/29/15 [address] [place] [address] documented as of this encounter
--- OUTSIDE RECORDS SUMMARY | 2022-02-24 15:53 | XMS_ITS | Encounter Summary ---
:1935 Author Organization [place] Address [address] [facility] [place] [address] Care Team Providers Name Role Phone Unavailable Primary Care Provider Unavailable Encounter Details Date Type Department Care Team Description 12/02/2008 Historic Notes INTERFACED REPORT Interface, Transcript MD james Social History Tobacco Use Types Packs/Day Years Used Date Smoking Tobacco: Never Assessed Sex Assigned at Date Recorded Not on file documented as of this encounter Progress Notes Interface, Emergency Care Attendant - 07/29/2010 10:48 PM CDT General Information - How to be Addressed fidelia - Patient Belongings purse; given to - personal lines account executive #1: mayo vyas - Relationship to patient #1: - Phone 1: [phone] home - Cell - personal lines account executive #2: daughter onel serra cell [phone] work [phone] - Patient's spoken language; South African or Bilingual communication style Current Health and [...] disease; hypertension; high Conditions/Symptoms lipids; myocardial infarction; [place] 1980 and 2002 vfib arrest 2002 LAD [...]
--- OUTSIDE RECORDS SUMMARY | 2022-02-24 15:53 | XMS_ITS | Encounter Summary ---
:1935 Author Organization [place] Address [address] [facility] [place] [address] Care Team Providers Name Role Phone Alicia Nice MD Primary Care Provider Unavailable Reason for Visit Reason Onset Date Comments Previsit 09/16/2014 09-21-14 Annual foll ow up, History CAD, Hypertension 09/16/2014 Hyperlipidemia 09/16/2014 Encounter Details Date Type Department Care Team Description 09/16/2014 PRE VISIT Guillermo Arriaza Previsit (0 09-21-14 Annual [facility] Heart MD follow up, History CAD, Care-[place] [address] ); Hypertension; [address] [place] [address] Hyperlipidemia [address] [place] [id number] Social History Tobacco Use Types Packs/Day [...] Primary documented in this encounter Care Teams Pharmacy Stock Clerk Relationship Specialty Start Date End Date Alicia Nice MD PCP - General Family Practice 08/25/12 6 documented as of this encounter
--- OUTSIDE RECORDS SUMMARY | 2022-02-24 15:53 | XMS_ITS | Encounter Summary ---
:1935 Author Organization [place] Address [address] [facility] [place] [address] Care Team Providers Name Role Phone Alicia Nice MD Primary Care Provider Unavailable Les Fair MD Primary Care Provider [facility] Primary Care Provider [phone] None Primary Care Provider Unavailable Allyson Pool Primary Care Provider Guillermo Martinez MD Unavailable Encounter Details Date Type Department Care Team Description 09/06/2011 Office Visit-[facility] Heart Saw Martinez, Clinic Karina EVANGELISTA [address] [facility] [address] [facility] [address] [place] [address] [place] [address] (Wo rk) Social History [...] old Referring Physician: ALICIA NICE Referring Clinic: [facility] CURRENT DIAGNOSES 1. - Hyperlipidemia, 272.4 2. Hypertension-Essential (Benign), 401.1 3. - CAD, 414.00 4. Ventricular tachycardia, 427.1 5. Status post-PTCA, V45.82 6. [place]-Acute Anterior, 410.11 7. Obesity-(<LT>100 ), 278.00 ALLERGIES [...] note, her son just had an anterior [place] with a Vfib cardiac arrest. We angioplastied [...] disease, S/P myocardial infarction-anterior, VF arrest with [place], NSVT immed after [place],Lat [place] 1980, Ant [place] (Vfib) 10-13 Cath-PTCA LAD(too tortuous for stent), [...] 2008 Nuclear Results: 11/18 Defect.-extensive anterior,apical+anteroseptal non-transmural [place] in LAD wi/significant,mod.corina-infarct isch.Second defect.- extensive lateral [place] in the CFX artery w/no reversible isch.Third [...] - lives with ; Place of - [place]; REVIEW OF SYSTEMS GENERAL feels well, no [...] Tablet, 1 p.o. twice daily, #180 (One Rochelle Eighty) nitroglycerin 0.4 mg Tablet, Sublingual, Take [...] Tablet 1 p.o. twice daily #180 (One Rochelle Eighty) Refill IMPRESSIONS/PLAN Her blood pressure is [...] on filedocumented in this encounter Care Teams Radiographer Mammographer Relationship Specialty Start Date End Date Alicia Nice MD PCP - General Family Practice 08/25/12 6 Les Fair MD PCP - General Family Practice 08/23/15 12/29/15 [address] [place] [address] [facility] PCP - General 12/30/15 10/15/16 [address] [place] [address] None PCP - General 10/16/16 01/10/17 Allyson Pool PA PCP - General 04/27/17 [facility] [address] [place] [address] Guillermo Martinez MD MD Cardiology 11/15/17 [address] [place] [phone] documented as of this encounter
--- OUTSIDE RECORDS SUMMARY | 2022-02-24 15:53 | XMS_ITS | Encounter Summary ---
:1935 Author Organization [place] Address [address] [facility] [place] [address] Care Team Providers Name Role Phone Alicia Nice MD Primary Care Provider Unavailable Les Fair MD Primary Care Provider [facility] Primary Care Provider [phone] None Primary Care Provider Unavailable Allyson Pool Primary Care Provider Guillermo Martinez MD Unavailable Encounter Details Date Type Department Care Team Description 09/15/2012 Office Visit-[facility] Heart Saw Martinez, Clinic Karina EVANGELISTA [address] [facility] [address] [facility] [address] [place] [address] [place] [address] (Wo rk) Social History [...] old Referring Physician: ALICIA NICE Referring Clinic: [facility] CURRENT DIAGNOSES 1. - Hyperlipidemia, 272.4 2. Hypertension-Essential (Benign), 401.1 3. - CAD, 414.00 4. Ventricular tachycardia, 427.1 5. Status post-PTCA, V45.82 6. [place]-Acute Anterior, 410.11 7. Obesity-(<LT>100 ), 278.00 ALLERGIES [...] disease, S/P myocardial infarction-anterior, VF arrest with [place], NSVT immed after [place],Lat [place] 1980, Ant [place] (Vfib) 10-13 Cath-PTCA LAD(too tortuous for stent), [...] 2008 Nuclear Results: 11/18 Defect.-extensive anterior,apical+anteroseptal non-transmural [place] in LAD wi/significant,mod.corina-infarct isch.Second defect.- extensive lateral [place] in the CFX artery w/no reversible isch.Third [...] - [place]; REVIEW OF SYSTEMS GENERAL weight loss of [...] on filedocumented in this encounter Care Teams Database Design Analyst Relationship Specialty Start Date End Date Alicia Nice MD PCP - General Family Practice 08/25/12 6 Les Fair MD PCP - General Family Practice 08/23/15 12/29/15 [address] [place] [address] [facility] PCP - General 12/30/15 10/15/16 [address] [place] [address] None PCP - General 10/16/16 01/10/17 Allyson Pool PA PCP - General 04/27/17 [facility] [address] [place] [address] Guillermo Martinez MD MD Cardiology 11/15/17 [address] [facility] [address] [place] [phone] documented as of this encounter
--- OUTSIDE RECORDS SUMMARY | 2022-02-24 15:53 | XMS_ITS | Encounter Summary ---
:1935 Author Organization [place] Address [facility] [place] [address] Care Team Providers Name Role Phone Alicia Nice MD Primary Care Provider Unavailable Encounter Details Date Type Department Care Team Description 09/17/2014 Orders Only [facility], Provider Hyperlipid emia (Primary [place] [facility] Not In Dx) Heart Care-[address] [place] [address] Social History Tobacco Use Types [...] with platelets differential (01/15/2014) Analysis Performed At [facility] logist Time Signature WBC 5.2 10^9/L EXTERNAL [...] Comprehensive metabolic panel (01/15/2014) [facility] Signature Sodium 141 mmol/L [...] hyperlipidemia documented in this encounter Care Teams Paralegal Assistant Relationship Specialty Start Date End Date Alicia Nice MD PCP - General Family Practice 08/25/12 6 documented as of this encounter
--- OUTSIDE RECORDS SUMMARY | 2022-02-24 15:53 | XMS_ITS | Encounter Summary ---
:1935 Author Organization [place] Address [address] [facility] [address] Care Team Providers Name Role Phone Alicia Nice MD Primary Care Provider Unavailable Les Fair MD Primary Care Provider [facility] Primary Care Provider [phone] None Primary Care Provider Unavailable Allyson Pool Primary Care Provider Guillermo Martinez MD Unavailable Encounter Details Date Type Department Care Team Description 08/17/2010 Office Visit-[facility] Heart Saw Martinez, Clinic [place] EVANGELISTA [address] [place] [address] [place] [address] (Wo rk) Social History [...] old Referring Physician: ALICIA NICE Referring Clinic: [facility] CURRENT DIAGNOSES 1. - Hyperlipidemia, 272.4 2. Hypertension-Essential (Benign), 401.1 3. - CAD, 414.00 4. Ventricular tachycardia, 427.1 5. Status post-PTCA, V45.82 6. IL-Acute Anterior, 410.11 7. Obesity-(<LT>100 ), 278.00 ALLERGIES [...] disease, S/P myocardial infarction-anterior, VF arrest with IL, NSVT immed after IL,Lat IL 1980, Ant IL (Vfib) 10-13 Cath-PTCA LAD(too tortuous for stent), [...] 2008 Nuclear Results: 11/18 Defect.-extensive anterior,apical+anteroseptal non-transmural IL in LAD wi/significant,mod.corina-infarct isch.Second defect.- extensive lateral IL in the CFX artery w/no reversible isch.Third [...] - lives with ; Place of - [place]; REVIEW OF SYSTEMS GENERAL appetite good, energy [...] her medications further. I will have her crankshaft grinder do that since I do not need [...] on filedocumented in this encounter Care Teams Boot Trimmer Relationship Specialty Start Date End Date Alicia Nice MD PCP - General Family Practice 08/25/12 6 Les Fair MD PCP - General Family Practice 08/23/15 12/29/15 [address] [place] [address] [facility] PCP - General 12/30/15 10/15/16 [address] [place], [place] [id number] None PCP - General 10/16/16 01/10/17 Allyson Pool PA PCP - General 04/27/17 [facility] [address] [place] [id number] Guillermo Martinez MD MD Cardiology 11/15/17 [address] [place] [phone] documented as of this encounter
--- OUTSIDE RECORDS SUMMARY | 2022-02-24 15:53 | XMS_ITS | Encounter Summary ---
:1935 Author Organization [place] Address [address] [facility] [place] [address] Care Team Providers Name Role Phone Alicia Nice MD Primary Care Provider Unavailable Reason for Visit Reason Onset Date Comments Medication Request 03/12/2014 hold plavix Encounter Details Date Type Department Care Team Description 03/12/2014 Telephone [facility] Heart Monique Gupta , Medication Request Clinic [place] BORDEN (hold plavix) [address] [facility] [address] [place] [address] Social History Tobacco Use Types [...] procedure if no complications. Jah Gupta RN ENT CASE MANAGER Telephone Encounter - Monique Gupta RN [...] on filedocumented in this encounter Care Teams Social Work Msw Relationship Specialty Start Date End Date Alicia Nice MD PCP - General Family Practice 08/25/12 6 documented as of this encounter
--- OUTSIDE RECORDS SUMMARY | 2022-02-24 15:53 | XMS_ITS | Encounter Summary ---
:1935 Author Organization [place] Address [address] [facility] [place] [address] Care Team Providers Name Role Phone Alicia Nice MD Primary Care Provider Unavailable Reason for Referral - Closed Specialty Diagnoses / Procedures Referred By Contact Refer red To Contact Diagnoses Acute myocardial infarction of other anterior wall, initial episode of care Guillermo Martinez MD [address] [place] [address] Referral ID Status Reason Start Date Expiration Date Visits Requ ested Visits Authorized [id number] Closed 09/21/2015 03/19/2016 1 1 Reason for Visit Reason Comments Hypertension Hyperlipidemia Encounter Details Date Type Department Care Team Description 09/21/2014 Office Visit Guillermo Arriaza Hyperlipide adam (Primary Dx); [place] Regino Fink MD Acute myocardial infarction of other ant erior wall, initial episode of care; [facility] [address] History of ventricular tachy cardia; [address] History of acute lateral wall [place]; [address] [place], [place] Essential hypertension, louise gn; [place] [address] Coronary artery disease due to lipid jon [...] ??? Basic metabolic panel ??? Follow-Up with [employer] Service Spray Supervisor Orders Placed This Encounter Medications ??? amLODIPine [...] tachycardia ??? History of acute lateral wall [place] ??? Essential hypertension, benign ??? Coronary artery [...] INR 0.93 10/24/2005 CC Alicia Nice MD [facility] [address] [place] [address] Guillermo Martinez MD - 09/21/2014 9:48 AM CDT September 21, 2014 Alicia Nice MD [facility] [address] [place] [address] RE: Waqar Lundberg : [address] [...] that she would indeed do that at [place]. Cardiac figueroa, I will see her back [...] MD MT: GF Name: WAQAR LUNDBERG Account: [id number] : 1935 Service Date: 09/21/2014 Document: [id number] documented in this encounter Plan of Treatment Scheduled Referrals Name Type Priority Associated Diagnoses Order S chedule Follow-Up with Referral Routine Acute myocardial Expected: 09/21/2015 [employer] Spray Supervisor infarction of anterior (Appr oximate), wall, initial [...] athologist Signature Sodium 139 133 - 144 [place] mmol/L [facility] Potassium 3.7 3.4 - 5.3 [place] mmol/L [facility] Chloride 110 (H) 94 - 109 [place] mmol/L [facility] Carbon Dioxide 22 20 - 32 [place] mmol/L [facility] Anion Gap 7 3 - 14 [place] mmol/L [facility] Glucose 99 70 - 99 [place] mg/dL [facility] Urea Nitrogen 10 7 - 30 [place] mg/dL [facility] Creatinine 0.80 0.52 - [place] 1.04 mg/dL [facility] GFR Estimate 69 >60 [place] mL/min/1.[address] Comment: Non GFR Calc GFR Estimate If Black 84 >60 mL/min/1.7m2 F [facility] Comment: GFR Calc Calcium 8.3 (L) 8.5 - 10.1 mg/dL [facility] Specimen Anatomical Collection Method Collection Time Receive d Time (Source) Location / / Volume Laterality Blood specimen 10/03/2015 8:17 AM 016 8:20 (specimen) CDT AM CDT Guillermo Martinez MD LAB - BLOOD ORDERABLES Performing Organization Address City/State/ZIP Code Phon e Number M [facility] [address] [place] [address] [facility] [address] [place] [address], [place] [phone] ALT (10/03/2015 8:17 AM CDT) athologist Signature ALT 19 0 - 50 U/L [facility] Specimen Anatomical Collection Method Collection Time Receive d Time (Source) Location / / Volume Laterality Blood specimen 10/03/2015 8:17 AM 016 8:20 (specimen) CDT AM CDT Guillermo Martinez MD LAB - BLOOD ORDERABLES Performing Organization Address City/[facility]/ZIP Code Phon e Number [facility] [address] [place] [address] [facility] [address] [place] [address], [place] [phone] Lipid Profile (10/03/2015 8:17 AM CDT) athologist Signature Cholesterol 129 <200 mg/dL [facility] Triglycerides 85 <150 mg/dL [facility] Comment: Fasting specimen HDL Cholesterol 56 >49 mg/dL [facility] LDL Cholesterol Calculated 56 <100 mg/dL [facility] Comment: Desirable: <100 mg/dl Non HDL Cholesterol 73 <130 mg/dL [facility] Specimen Anatomical Collection Method Collection Time Receive d Time (Source) Location / / Volume Laterality Blood specimen 10/03/2015 8:17 AM 016 8:20 (specimen) CDT AM CDT Guillermo Martinez MD LAB - BLOOD ORDERABLES Performing Organization Address City/[facility]/ZIP Code Phon e Number M [facility] [address] [place] [address] [phone] [facility] [address] [place] [address], [place] [phone] documented in this encounter Visit Diagnoses Diagnosis Hyperlipidemia - Primary Other and unspecified hyperlipidemia Acute myocardial infarction of other ant erior wall, initial episode of care History of ventricular tachycardia Personal history of other diseases of ci rculatory system History of acute lateral wall [place] Old myocardial infarction Essential hypertension, benign Coronary artery disease due to lipid jon h plaque Essential hypertension Unspecified essential hypertension Mixed hyperlipidemia Acute myocardial infarction of anterior wall, initial episode of care (H) Acute myocardial infarction of other ant erior wall, initial episode of care documented in this encounter Care Teams Mdm Developer Relationship Specialty Start Date End Date Alicia Nice MD PCP - General Family Practice 08/25/12 6 documented as of this encounter
--- OUTSIDE RECORDS SUMMARY | 2022-02-24 15:53 | XMS_ITS | Encounter Summary ---
:1935 Author Organization [place] Address [address] [place] [address] Care Team Providers Name Role Phone Alicia Nice MD Primary Care Provider Unavailable Encounter Details Date Type Department Care Team Description 09/15/2012 Historic Results [facility] Heart Unknown, Doct or, Clinic [address] [place] [address] Social History Tobacco Use Types Packs/Day Years [...] on filedocumented in this encounter Care Teams Armed Custom Protection Officer Relationship Specialty Start Date End Date Alicia Nice MD PCP - General Family Practice 08/25/12 6 documented as of this encounter
--- OUTSIDE RECORDS SUMMARY | 2022-02-24 15:53 | XMS_ITS | Encounter Summary ---
:1935 Author Organization [place] Address [address] [facility] [place] [address] Care Team Providers Name Role Phone Unavailable Primary Care Provider Unavailable Encounter Details Date Type Department Care Team Description 12/02/2008 Results [facility] Guillermo Alegre MD Hospital Results [address] [place] [address] (Wo rk) Social History [...] Component Value Ref Test Analysis Performed At [facility] Range Method Time Signature IMAGECAST RADIOLOGY RESULT FIDELIA LUNDBERG ?? RESULTS ?? CATH REPORT ? PROCEDURES PERFORMED: 1. ??Left heart catheterization. 2. ??Coronary and left ventricular angiography. 3. ??LAD fractional flow reserve. ?? CLINICAL DATA: ??This is a 73-year-old woman with a history of coronary disease beginning at age 44 with an WI related to c losure of an obtuse marginal branch. ??In 2002, she presented with an anterior WI and underwent emergent angioplasty of the mid LAD. ??It c ould not be stented due to a tortuous calcified vessel. ??She present s now with a month of not feeling normal energy and general fatigue. ?? A stress nuclear study shows a new extensive proximal, mid and distal anterior and anterolateral perfusion defect and therefore she was ref erred to the Aluminizer. ?? CATHETERIZATION RESULTS: 1. ??Coronary artery disease [...] have her keep her followup appointment with [facility] which already arranged. ??She will [...] Performed At [facility] [employer] Method Time Signature IMAGECAST RADIOLOGY RESULT FIDELIA LUNDBERG ?? RESULTS ?? CATH REPORT ? PROCEDURES PERFORMED: 1. ??Left heart catheterization. 2. ??Coronary and left ventricular angiography. 3. ??LAD fractional flow reserve. ?? CLINICAL DATA: ??This is a 73-year-old woman with a history of coronary disease beginning at age 44 with an WI related to c losure of an obtuse marginal branch. ??In 2002, she presented with an anterior WI and underwent emergent angioplasty of the mid LAD. ??It c ould not be stented due to a tortuous calcified vessel. ??She present s now with a month of not feeling normal energy and general fatigue. ?? A stress nuclear study shows a new extensive proximal, mid and distal anterior and anterolateral perfusion defect and therefore she was ref erred to the Aluminizer. ?? CATHETERIZATION RESULTS: 1. ??Coronary artery disease [...] have her keep her followup appointment with [facility] which already arranged. ??She will [...] beginning at age 44 wit h an WI related to closure of an obtuse marginal branch. ??In 2002, luci jain presented with an anterior WI and underwent emergent angioplasty of the mid LAD. ??It could not be stented due to a tortuous calcified v essel. ??She presents now with a month of not feeling normal energy and general fatigue. ??A stress nuclear study shows a new extensive prox imal, mid and distal anterior and anterolateral perfusion defect and t herefore she was referred to the Aluminizer. ?? CATHETERIZATION RESULTS: 1. ??Coronary artery disease [...] her keep her follow up appointment with [facility] which already arranged. ??S he will continue medical management as well as risk factor treatm ent. ?? PROCEDURE: ??Using a modified Seldinger technique, a 4 Macedonian sheath was placed into the right femoral [...]
--- OUTSIDE RECORDS SUMMARY | 2022-02-24 15:53 | XMS_ITS | Encounter Summary ---
:1935 Author Organization [place] Address [address] [facility] [place] [address] Care Team Providers Name Role Phone Alicia Nice MD Primary Care Provider Unavailable Encounter Details Date Type Department Care Team Description 01/18/[address] [facility] Heart Unknown, Doct or, Clinic [address] [place] [address] Social History Tobacco Use Types Packs/Day Years [...] GEMMS Historical Results (01/18/2009 12:00 AM CDT) [facility] Method Time Signature Triglycerides 86 0 [...] on filedocumented in this encounter Care Teams Community Service Worker Relationship Specialty Start Date End Date Alicia Nice MD PCP - General Family Practice 08/25/12 6 documented as of this encounter
--- OUTSIDE RECORDS SUMMARY | 2022-02-24 15:53 | XMS_ITS | Encounter Summary ---
:1935 Author Organization [place] Address [facility] [place] [address] Care Team Providers Name Role Phone Alicia Nice MD Primary Care Provider Unavailable Les Fair MD Primary Care Provider [facility] Primary Care Provider [phone] None Primary Care Provider Unavailable Allyson Pool Primary Care Provider Guillermo Martinez MD Unavailable Encounter Details Date Type Department Care Team Description 03/13/2013 Office Visit-[facility] Noble mandel, Clinic [place] Fink, CABINET BUILDER RAILROAD SIGNAL AND SWITCH OPERATOR [address] [place] [address] [place] [address] (Wo rk) Social History Tobacco Use Types Packs/Day Years Used Date Smoking Tobacco: Never Assessed Sex Assigned at Date Recorded Not on file documented as of this encounter Progress Notes Jesús Almanza, INDUSTRIAL ENGINEERING DIRECTOR - 05/16/2013 6:36 AM CST Progress Note Created by: Jesús Almanza, N.P. DATE: 03/13/2013 WAQAR LUNDBERG DATE OF : 1935 AGE: [age] years old Referring Physician: ALICIA NICE Referring Clinic: [facility] CURRENT DIAGNOSES 1. - Hyperlipidemia, 272.4 2. Hypertension-Essential (Benign), 401.1 3. - CAD, 414.00 4. Ventricular tachycardia, 427.1 5. Status post-PTCA, V45.82 6. UT-Acute Anterior, 410.11 7. Obesity-(<LT>100 ), 278.00 ALLERGIES [...] In 2002, she had an anterior wall [place] with a ventricular fibrillation arrest and an [...] of - [place]; REVIEW OF SYSTEMS GENERAL no change in [...] 106/58Sitting, Right arm, large cuff 120/60Retaken by INDUSTRIAL ENGINEERING DIRECTOR/[id number] 118/62Standing, Left arm, large cuff Pulse- 72.00/min. Weight- 217.60 lbs. Height- 63.25 BMI Measurement: SensibleSelf Error: [Microsoft][SensibleSelf SQL Customer Trainer Chemical Checker][SQL Customer Trainer]Divide by zero error encountered. - [id number] CONSTITUTIONAL cooperative anxious and hyperventilating intermittently SKIN [...] seeing Waqar in follow-up. Jesús Almanza RN, INDUSTRIAL ENGINEERING DIRECTOR-C, MSN documented in this encounter Plan of Treatment Not on filedocumented as of this encounter Visit Diagnoses Not on filedocumented in this encounter Care Teams Customer Response Representative Relationship Specialty Start Date End Date Alicia Nice MD PCP - General Family Practice 08/25/12 6 Les Fair MD PCP - General Family Practice 08/23/15 12/29/15 [address] [place] [address] [facility] PCP - General 12/30/15 10/15/16 [address] [place] [address] None PCP - General 10/16/16 01/10/17 Allyson Pool PA PCP - General 04/27/17 [facility] [address] [place] [address] Guillermo Martinez MD MD Cardiology 11/15/17 [address] [facility] [address] [place] [address] documented as of this encounter
--- OUTSIDE RECORDS SUMMARY | 2022-02-24 15:53 | XMS_ITS | Encounter Summary ---
:1935 Author Organization [place] Address [facility] [place] [address] Care Team Providers Name Role Phone Alicia Nice MD Primary Care Provider Unavailable Les Fair MD Primary Care Provider [facility] Primary Care Provider [phone] None Primary Care Provider Unavailable Allyson Pool Primary Care Provider Guillermo Martinez MD Unavailable Encounter Details Date Type Department Care Team Description 12/24/2008 Office Visit-[facility] Noble mandel, Clinic [place] Fink, SOLAR ENERGY SYSTEMS ENGINEER INDUSTRIAL TRAINER [address] [facility] [address] [facility] [address] [place] [address] [place] [address] (Wo rk) Social History Tobacco Use Types Packs/Day Years Used Date Smoking Tobacco: Never Assessed Sex Assigned at Date Recorded Not on file documented as of this encounter Progress Notes Jesús Almanza, REGIONAL MARKETING DIRECTOR - 01/03/2009 9:25 PM CDT Progress Note Created by: Jesús Almanza, N.P. DATE: 12/24/2008 WAQAR LUNDBERG DATE OF : 1935 AGE: [age] years old Referring Physician: ALICIA NICE Referring Clinic: [facility] CURRENT DIAGNOSES 1. - CAD, 414.00 2. Hypertension-Essential (Benign), 401.1 3. - Hyperlipidemia, 272.4 4. Status post-PTCA, V45.82 5. Obesity-(<LT>100 ), 278.00 6. VT-Acute Anterior, 410.11 7. Ventricular tachycardia, [...] coronary diseaseand she herself had her first VT 25 years ago. She has lost many family members to this disease. Hercardiac anatomy is outlined in detail in my note in [facility] data, a Cardiology consultation from 12/01/08. At [...] - lives with ; Place of - [place]; REVIEW OF SYSTEMS GENERAL weight loss of [...] on filedocumented in this encounter Care Teams Stenotypist Relationship Specialty Start Date End Date Alicia Nice MD PCP - General Family Practice 08/25/12 6 Les Fair MD PCP - General Family Practice 08/23/15 12/29/15 [address] [place] [address] [facility] PCP - General 12/30/15 10/15/16 [address] [place] [address] None PCP - General 10/16/16 01/10/17 Allyson Pool PA PCP - General 04/27/17 [facility] [address] [place] [address] Guillermo Martinez MD MD Cardiology 11/15/17 [address] [place] [phone] documented as of this encounter
--- OUTSIDE RECORDS SUMMARY | 2022-02-24 15:53 | XMS_ITS | Encounter Summary ---
:1935 Author Organization [place] Address [facility] [place] [address] Care Team Providers Name Role Phone Alicia Nice MD Primary Care Provider Unavailable Encounter Details Date Type Department Care Team Description 09/21/2014 Orders Only [facility] ntial hypertension, benign; Clinic [place] Coronary atherosclerosis of unspecified type of vessel, beaver or graft [address] [place] [address] Social History Tobacco Use Types [...] unspecified type of the resu lts vessel, beaver or graft sect ion. ALT STAT 09/21/2014 8:02 AM Coronary Results f or this CDT atherosclerosis of procedure are in unspecified type of the resu lts vessel, beaver or graft sect ion. BASIC METABOLIC STAT 09/21/2014 8:02 AM Essential hypertens ion, Results for this PANEL CDT benign procedure are i n the results section. documented in this encounter Results ALT (09/21/2014 8:02 AM CDT) athologist Signature ALT 22 0 - 50 U/L [facility] Specimen Anatomical Collection Method Collection Time Receive d Time (Source) Location / / Volume Laterality Blood specimen 09/21/2014 8:02 AM 015 8:03 (specimen) CDT AM CDT Guillermo Martinez MD LAB - BLOOD ORDERABLES Performing Organization Address City/[facility]/ZIP [facility] susy Lares [facility] [address] [place], [place] [address] [facility] [address] [place] [address], [facility] [phone] Lipid Profile (09/21/2014 8:02 AM CDT) athologist Signature Cholesterol 135 <200 mg/dL [facility] Comment: LDL Cholesterol is the primary guide to therapy. The NCEP recommends further evaluation of: patients with cholesterol greater than 200 mg/dL if additional risk facto rs are present, cholesterol greater than 240 mg/dL, triglycerides greater than 1 50 mg/dL, or HDL less than 40 mg/dL. Triglycerides 100 0 - 150 mg/dL [facility] Comment: Fasting specimen HDL Cholesterol 57 >50 mg/dL [facility] LDL Cholesterol Calculated 58 0 - 129 mg/dL [facility] Comment: LDL Cholesterol is the primary guide to therapy: LDL-cholesterol goal in high risk patients is <100 mg/dL and in very high risk patients is <70 mg/dL. VLDL-Cholesterol 20 0 - 30 mg/dL [facility] Cholesterol/HDL Ratio 2.4 0.0 - 5.0 [facility] Specimen Anatomical Collection Method Collection Time Receive d Time (Source) Location / / Volume Laterality Blood specimen 09/21/2014 8:02 AM 015 8:03 (specimen) CDT AM CDT Guillermo Martinez MD LAB - BLOOD ORDERABLES Performing Organization Address City/[facility]/ZIP Code Phon susy Lares [facility] [address] [place], [place] [address] [facility] [address] [address], [facility] [phone] (ABNORMAL) Basic metabolic panel (09/21/2014 8:02 AM CDT) athologist Signature Sodium 139 133 - 144 [place] mmol/L [facility] Potassium 3.3 (L) 3.4 - 5.3 [place] mmol/L [facility] Chloride 105 94 - 109 [place] mmol/L [facility] Carbon Dioxide 30 20 - 32 [place] mmol/L [facility] Anion Gap 4 3 - 14 [place] mmol/L [facility] Glucose 81 70 - 99 [place] mg/dL [facility] Urea Nitrogen 12 7 - 30 [place] mg/dL [facility] Creatinine 0.84 0.52 - [place] 1.04 mg/dL [facility] GFR Estimate 66 >60 [place] mL/min/1.[address] Comment: Non GFR Calc GFR Estimate If Black 79 >60 mL/min/1.7m2 F [facility] Comment: GFR Calc Calcium 8.2 (L) 8.5 - 10.1 mg/dL [facility] Specimen Anatomical Collection Method Collection Time Receive d Time (Source) Location / / Volume Laterality Blood specimen 09/21/2014 8:02 AM 015 8:03 (specimen) CDT AM CDT Guillermo Martinez MD LAB - BLOOD ORDERABLES Performing Organization Address City/State/ZIP Code Phon e Number M [facility] [address] [place] [address] [facility] [address] [phone] documented in this encounter Visit Diagnoses Diagnosis Essential hypertension, benign Coronary atherosclerosis of unspecified type of vessel, beaver or graft documented in this encounter Care Teams Windshield Wiper Repairer Relationship Specialty Start Date End Date Alicia Nice MD PCP - General Family Practice 08/25/12 6 documented as of this encounter
--- OUTSIDE RECORDS SUMMARY | 2022-02-24 15:53 | XMS_ITS | Encounter Summary ---
:1935 Author Organization [place] Address [address] [place] [address] Care Team Providers Name Role Phone Alicia Nice MD Primary Care Provider Unavailable Reason for Visit Reason Onset Date Comments Refill Request 12/01/2013 clopidogrel, benazep ril, labetalol Encounter Details Date Type Department Care Team Description 12/01/2013 Refill [facility] Heart Guillermo Martinez , Refill Request Clinic Karina EVANGELISTA (clopidogrel, [address] [facility] [address] benazepril, labetalol) [address] [place] [address] [place] [phone] [address] (Wo rk) Social History Tobacco Use Types Packs/Day Years Used Date Smoking Tobacco: Never Assessed Sex Assigned at Date Recorded Not on file documented as of this encounter Plan of Treatment Not on filedocumented as of this encounter Visit Diagnoses Diagnosis CAD (coronary artery disease) - Primary Coronary atherosclerosis of unspecified type of vessel, [place] or graft HTN (hypertension) Unspecified essential hypertension documented in this encounter Care Teams Optical Advisor Relationship Specialty Start Date End Date Alicia Nice MD PCP - General Family Practice 08/25/12 6 documented as of this encounter
--- OUTSIDE RECORDS SUMMARY | 2022-02-24 15:53 | XMS_ITS | Encounter Summary ---
:1935 Author Organization [place] Address [address] [place] [address] Care Team Providers Name Role Phone Unavailable Primary Care Provider Unavailable Encounter Details Date Type Department Care Team Description 12/02/2008 Admission [facility] [place] Guillermo Kline, (University Tutor) [facility] Results [address] [place] [phone] Social History Tobacco Use Types Packs/Day Years Used Date Smoking Tobacco: Never Assessed Sex Assigned at Date Recorded Not on file documented as of this encounter Progress Notes Guillermo Kline - 12/08/2008 8:47 AM CDT FINAL HISTORY OF PRESENT ILLNESS: Fidelia Lundberg is a 73-year-old female with known coronary artery disease. She had her first [place] 25 years ago. There is a very [...] be deployed. Dr. Kline is her primary field insurance sales manager and felt that if her LAD became [...] with an extensive anterior apical anteroseptal nontransmural [place] in the distribution of the LAD with [...] dm Name: FIDELIA LUNDBERG MRN: [id number] Account: [id number] : 1935 Admitted: [id number] Document: [id number] cc: Alicia Nice MD [facility] documented in this encounter Plan of Treatment Not on filedocumented as of this encounter Visit Diagnoses Not on filedocumented in this encounter
--- OUTSIDE RECORDS SUMMARY | 2022-02-24 15:53 | XMS_ITS | Encounter Summary ---
:1935 Author Organization [place] Address [address] [facility] [place] [address] Care Team Providers Name Role Phone Alicia Nice MD Primary Care Provider Unavailable Donell Fair MD Primary Care Provider [facility] Primary Care Provider [phone] None Primary Care Provider Unavailable Allyson Pool Primary Care Provider Guillermo Martinez MD Unavailable Encounter Details Date Type Department Care Team Description 09/10/2013 Office Visit-[facility] Heart Saw Martinez, Clinic Karina EVANGELISTA [address] [facility] [address] [facility] [address] [place] [address] [place] [address] (Wo rk) Social History [...] old Referring Physician: DONELL FAIR Referring Clinic: [facility] CURRENT DIAGNOSES 1. - Hyperlipidemia, 272.4 2. Hypertension-Essential (Benign), 401.1 3. - CAD, 414.00 4. Ventricular tachycardia, 427.1 5. Status post-PTCA, V45.82 6. [place]-Acute Anterior, 410.11 7. Obesity-(<LT>100 ), 278.00 ALLERGIES [...] disease, S/P myocardial infarction-anterior, VF arrest with WI, NSVT immed after WI,Lat WI 1980, Ant WI (Vfib) 10-13 Cath-PTCA LAD(too tortuous for stent), [...] 2008 Nuclear Results: 11/18 Defect.-extensive anterior,apical+anteroseptal non-transmural WI in LAD wi/significant,mod.corina-infarct isch.Second defect.- extensive lateral WI in the CFX artery w/no reversible isch.Third [...] lives with ; Place of - [place]; REVIEW OF SYSTEMS GENERAL no change in [...] on filedocumented in this encounter Care Teams Logging Crew Supervisor Relationship Specialty Start Date End Date Alicia Nice MD PCP - General Family Practice 08/25/12 6 Donell Fair MD PCP - General Family Practice 08/23/15 12/29/15 [address] [place] [address] [facility] PCP - General 12/30/15 10/15/16 [address] [place] [address] None PCP - General 10/16/16 01/10/17 Allyson Pool PA PCP - General 04/27/17 [facility] [address] [place] [address] Guillermo Martinez MD MD Cardiology 11/15/17 [address] [facility] [address] [place] [phone] documented as of this encounter
--- OUTSIDE RECORDS SUMMARY | 2022-02-24 15:53 | XMS_ITS | Encounter Summary ---
:1935 Author Organization [place] Address [address] [facility] [place] [address] Care Team Providers Name Role Phone Alicia Nice MD Primary Care Provider Unavailable Encounter Details Date Type Department Care Team Description 03/13/2013 Hospital Laboratory [facility] Results Hattie M, HOSPITAL MANAGER CORRESPONDENCE ANALYST [address] [place] [address] (Wo rk) Social History Tobacco Use Types [...] athologist Signature Sodium 142 133 - 144 [place] mmol/L [facility] Potassium 4.2 3.4 - 5.3 [place] mmol/L [facility] Chloride 104 94 - 109 [place] mmol/L [facility] Carbon Dioxide 31 20 - 32 [place] mmol/L [facility] Anion Gap 6 6 - 17 [place] mmol/L [facility] Glucose 90 60 - 99 [place] mg/dL [facility] Urea Nitrogen 12 7 - 30 [place] mg/dL [facility] Creatinine 0.90 0.52 [facility]/dL [facility] GFR Estimate 61 >60 [place] mL/min/1.[address] LAB GFR Estimate If 74 >60 [place] Black mL/min/1.[address] LAB Calcium 8.8 8.5 - 10.4 [place] mg/dL [facility] Specimen Anatomical Collection Method Collection Time Receive d Time (Source) Location / / Volume Laterality 03/13/2013 10:16 03/13/2013 AM CDT 10:39 AM CDT Hattie Almanza APRN CORRESPONDENCE ANALYST LAB - BLOOD ORDERABLES Performing Organization Address City/State/ZIP Code Phon e Number M [facility] [address] [place], [place] [address] [facility] documented in this encounter Visit Diagnoses Not on filedocumented in this encounter Care Teams Software Requirements Engineer Relationship Specialty Start Date End Date Alicia Nice MD PCP - General Family Practice 08/25/12 6 documented as of this encounter
--- OUTSIDE RECORDS SUMMARY | 2022-02-24 15:54 | XMS_ITS | Encounter Summary ---
:1935 Author Organization [place] Address [address] [place] [address] Care Team Providers Name Role Phone Alicia Nice MD Primary Care Provider Unavailable Les Fair MD Primary Care Provider Encounter Details Date Type Department Care Team Description 04/26/2003 Historic Results [facility] Heart Unknown, [facility] [address] [place] [address] Social History Tobacco Use Types Packs/Day Years Used Date Smoking Tobacco: Never Assessed Sex Assigned at Date Recorded Not on file documented as of this encounter Plan of Treatment Not on filedocumented as of this encounter Procedures Procedure Name Priority Date/Time Associated Diagnosis Comme nts NUCLEAR CARDIAC - HIM 04/26/2003 12:00 AM AIR TRAFFIC CONTROL EQUIPMENT REPAIRER SCAN - ARCHIVE documented in this encounter Results NUCLEAR CARDIAC - HIM SCAN - ARCHIVE (04/26/2003 12:00 AM AIR TRAFFIC CONTROL EQUIPMENT REPAIRER) Anatomical Region Laterality Modality Other Specimen (Source) Anatomical Location Collection Method / Collectio n Time Received Time / Laterality Volume 04/26/2003 Narrative This result has an attachment that is no t available. Provider Scan IMG NM ORDERABLES documented in this encounter Visit Diagnoses Not on filedocumented in this encounter Care Teams Intravenous Therapy Nurse Relationship Specialty Start Date End Date Alicia Nice MD PCP - General Family Practice 08/25/12 6 Les Fair MD PCP - General Family Practice 08/23/15 12/29/15 [address] [place] [address] documented as of this encounter
--- OUTSIDE RECORDS SUMMARY | 2022-02-24 15:54 | XMS_ITS | Encounter Summary ---
:1935 Author Organization [place] Address [address] [facility] [place] [address] Care Team Providers Name Role Phone Alicia Nice MD Primary Care Provider Unavailable Les Fair MD Primary Care Provider Encounter Details Date Type Department Care Team Description 11/18/2002 Historic Results [facility] Heart Unknown, [facility] [address] [place] [address] Social History Tobacco Use Types [...] filedocumented in this encounter Care Teams Family Consultant Relationship Specialty Start Date End Date Alicia Nice MD PCP - General Family Practice 08/25/12 6 Les Fair MD PCP - General Family Practice 08/23/15 12/29/15 [address] [place] [address] documented as of this encounter
--- OUTSIDE RECORDS SUMMARY | 2022-02-24 15:54 | XMS_ITS | Encounter Summary ---
:1935 Author Organization [place] Address [address] [facility] [place] [address] Care Team Providers Name Role Phone Unavailable [...] RESULTS Atrial Rate 65 BPM RADIOLOGY RESULTS [place] Interval 210 ms RADIOLOGY RESULTS QRS Duration 100 ms RADIOLOGY RESULTS QT 402 ms RADIOLOGY RESULTS QTc 418 ms RADIOLOGY RESULTS P [place] 27 degrees RADIOLOGY RESULTS R AXIS -17 degrees RADIOLOGY RESULTS T [place] 22 degrees RADIOLOGY RESULTS Interpretation Unconfirmed report [...]
--- OUTSIDE RECORDS SUMMARY | 2022-02-24 15:54 | XMS_ITS | Encounter Summary ---
:1935 Author Organization [place] Address [address] [place] [place] [address] Care Team Providers Name Role Phone Unavailable Primary Care Provider Unavailable Encounter Details Date Type Department Care Team Description 10/24/2005 Historic Results INTERFACED REPORT Hattie Kumar [facility] [address] [place] [address] (Wo rk) Social History Tobacco Use Types [...] LAB - BLOOD ORDERABLES Performing Organization Address City/[facility]/ZIP Code Phon e Number [facility] Hemoglobin (10/24/2005 7:00 AM CDT) athologist Signature Hemoglobin 13.6 11.7 - 15.7 [place] g/dL Specimen Anatomical Collection Method Collection Time Receive d Time (Source) Location / / Volume Laterality 10/24/2005 7:00 AM 6 7:10 CDT AM CDT Hattie Almanza LAB - BLOOD ORDERABLES Performing Organization Address [facility] Code Phon e Number [facility] INR (10/24/2005 7:00 AM CDT) athologist Signature INR 0.93 0.86 - 1.14 [place] Specimen Anatomical Collection Method Collection Time Receive d Time (Source) Location / / Volume Laterality 10/24/2005 7:00 AM 6 7:10 CDT AM CDT Hattie Almanza LAB - BLOOD ORDERABLES Performing Organization Address City/[facility]/ZIP Code Phon e Number M[facility]YS Platelet [...]
--- OUTSIDE RECORDS SUMMARY | 2022-02-24 15:54 | XMS_ITS | Encounter Summary ---
:1935 Author Organization [place] Address [address] [facility] [place] [address] Care Team Providers Name Role Phone Alicia Nice MD Primary Care Provider Unavailable Les Fair MD Primary Care Provider [facility] Primary Care Provider [phone] None Primary Care Provider Unavailable Allyson Pool Primary Care Provider Guillermo Martinez MD Unavailable Encounter Details Date Type Department Care Team Description 10/22/2005 Office Visit-[facility] Heart Unknown, Eugene nascimento MD [address] [address] Social History Tobacco Use Types Packs/Day Years Used Date Smoking Tobacco: Never Assessed Sex Assigned at Date Recorded Not on file documented as of this encounter Progress Notes Unknown, DoctorMD - 10/28/2005 10:09 PM CDT Progress Note Created by: Jesús Almanza N.P. DATE: 10/22/2005 WAQAR LUNDBERG DATE OF : 1935 AGE: [age] years old Referring Physician: ALICIA NICE Referring Clinic: [facility] CURRENT DIAGNOSES 1. - CAD, 414.00 2. Obesity-(<LT>100 ), 278.00 3. Hypertension-Essential (Benign), 401.1 4. - Hyperlipidemia, 272.4 5. Status post-PTCA, V45.82 6. [place]-Acute Anterior, 410.11 7. Ventricular tachycardia, [...] angioplasty. She actually went back to the rn cardiac cath a second time following the angioplasty due [...] consistent with diaphragm attenuation, although a transmural [place] could not be excluded. Compared to 2003, the new finding includes mild anterior ischemia. This patient walked the same amount onthe treadmill, had no EKG changes consistent with ischemia. By history she tells me her typical angina is chest pressure, with her initial [place], radiating down her left arm. She is [...] for her. When she saw someone in [place] for complaints of joint discomfort in her [...] Residence - lives with ;Place of - [place]; REVIEW OF SYSTEMS GENERAL weight loss, 2# [...] disease with history of a lateral wall [place] at age 44. Anterior wall [place] in 2002 with a ventricular fibrillation arrest, [...] including contrast dye allergy, contrast dye nephropathy, [place], , stroke, iatrogenic vessel wall trauma, and [...] respond to furosemide given to her in [place]. I have made no other changes. She [...] follow up post angiogram Jesús Almanza, N.P. Electronically signed by [facility], Emr Data Conversion at 09/25/2013 6:26 AM CDT documented in this encounter Plan of Treatment Not on filedocumented as of this encounter Visit Diagnoses Not on filedocumented in this encounter Care Teams Mail Deliverer Relationship Specialty Start Date End Date Alicia Nice MD PCP - General Family Practice 08/25/12 6 Les Fair MD PCP - General Family Practice 08/23/15 12/29/15 [address] [place] [address] [facility] PCP - General 12/30/15 10/15/16 [address] [place] [address] None PCP - General 10/16/16 01/10/17 Allyson Pool PA PCP - General 04/27/17 [facility] [address] [place] [address] Guillermo Martinez MD MD Cardiology 11/15/17 [address] [place] [phone] documented as of this encounter
--- OUTSIDE RECORDS SUMMARY | 2022-02-24 15:54 | XMS_ITS | Encounter Summary ---
:1935 Author Organization [place] Address [address] [facility] [place] [address] Care Team Providers Name Role Phone Alicia Nice MD Primary Care Provider Unavailable Les Fair MD Primary Care Provider Encounter Details Date Type Department Care Team Description 12/21/2002 Historic Results [facility] Heart Unknown, [facility] [address] [place] [address] Social History Tobacco Use Types [...] on filedocumented in this encounter Care Teams Pediatrician Relationship Specialty Start Date End Date Alicia Nice MD PCP - General Family Practice 08/25/12 6 Les Fair MD PCP - General Family Practice 08/23/15 12/29/15 [address] [place] [address] documented as of this encounter
--- OUTSIDE RECORDS SUMMARY | 2022-02-24 15:54 | XMS_ITS | Encounter Summary ---
:1935 Author Organization [place] Address [facility] [address] Care Team Providers Name Role Phone Shawn Nice MD Primary Care Provider Unavailable Les Fair MD Primary Care Provider [facility] Primary Care Provider [phone] Primary Care Provider Unavailable Allyson Pool Primary Care Provider Guillermo Martinez MD Unavailable Encounter Details Date Type Department Care Team Description 11/26/2002 Office Visit-[facility] Heart Unknown, Eugene nascimento MD [address] [address] Social History Tobacco Use Types Packs/Day Years Used Date Smoking Tobacco: Never Assessed Sex Assigned at Date Recorded Not on file documented as of this encounter Progress Notes Unknown, DoctorMD - 12/01/2002 5:06 PM CDT DATE: 11/26/2002 FIDELIA LUNDBERG DATE OF : 1935 AGE: [age] years old Referring Physician: SHAWN NICE CURRENT DIAGNOSES 1. [place]-Acute Anterior, 410.11 2. - Hyperlipidemia, 272.4 3. [...] always; Occupation - retired; Place of - [place]; ____ REVIEW OF SYSTEMS GENERAL lost ten [...] Left arm, large cuff 140/80 Retaken by DYE MIXER Pulse- 58.00/min. Weight- 242.20 lbs. Height- .00 [...] further studies. Marcelo Diaz NP <B><FONT FACE=System> documented in this encounter Plan of Treatment Not on filedocumented as of this encounter Visit Diagnoses Not on filedocumented in this encounter Care Teams Fire Officer Relationship Specialty Start Date End Date Shawn Nice MD PCP - General Family Practice 08/25/12 6 Les Fair MD PCP - General Family Practice 08/23/15 12/29/15 [address] [place] [address] [facility] PCP - General 12/30/15 10/15/16 [address] [place], [place] [id number] None PCP - General 10/16/16 01/10/17 Allyson Pool PA PCP - General 04/27/17 [facility] [address] [place] [address] Guillermo Martinez MD MD Cardiology 11/15/[address] [place] [address] documented as of this encounter
--- OUTSIDE RECORDS SUMMARY | 2022-02-24 15:54 | XMS_ITS | Encounter Summary ---
:1935 Author Organization [place] Address [address] [facility] [address] Care Team Providers Name Role Phone Unavailable Primary Care Provider Unavailable Encounter Details Date Type Department Care Team Description 10/24/2005 Results Only [facility] EduardoCipriano [facility] Results [facility] [address] [place] [address] (Wo rk) Social History Tobacco Use Types [...] Component Value Ref Test Analysis Performed At [facility] Infopia Method Time Signature IMAGECAST RADIOLOGY RESULT LEFT [...] Component Value Ref Test Analysis Performed At [facility] WorldWide Biggies Range Method Time Signature IMAGECAST RADIOLOGY RESULT [...]
--- OUTSIDE RECORDS SUMMARY | 2022-02-24 15:54 | XMS_ITS | Encounter Summary ---
:1935 Author Organization [place] Address [address] [facility] [place] [address] Care Team Providers Name Role Phone Alicia Nice MD Primary Care Provider Unavailable Les Fair MD Primary Care Provider Encounter Details Date Type Department Care Team Description 10/24/2005 Historic Results [facility] Heart Unknown, [facility] [address] [place] [address] Social History Tobacco Use Types [...] on filedocumented in this encounter Care Teams Hair Blender Relationship Specialty Start Date End Date Alicia Nice MD PCP - General Family Practice 08/25/12 6 Les Fair MD PCP - General Family Practice 08/23/15 12/29/15 [address] [place] [address] documented as of this encounter
--- OUTSIDE RECORDS SUMMARY | 2022-02-24 15:54 | XMS_ITS | Encounter Summary ---
:1935 Author Organization [place] Address [address] [facility] [place] [address] Care Team Providers Name Role Phone Alicia Nice MD Primary Care Provider Unavailable Les Fair MD Primary Care Provider [facility] Primary Care Provider [phone] Primary Care Provider Unavailable Allyson Pool Primary Care Provider Guillermo Martinez MD Unavailable Encounter Details Date Type Department Care Team Description 04/29/2003 Office Visit-[facility] Heart Unknown, Oscart MD azam [address] [address] Social History Tobacco Use Types [...] post-PTCA, v45.82 5. Obesity-(<LT>100 ), 278.00 6. [place]-Acute Anterior, [...] potassium was normal. She is going to [place] for the winter. We will see her [...] on filedocumented in this encounter Care Teams Terminal Operations Supervisor Relationship Specialty Start Date End Date Alicia Nice MD PCP - General Family Practice 08/25/12 6 Les Fair MD PCP - General Family Practice 08/23/15 12/29/15 [address] [place] [address] [facility] PCP - General 12/30/15 10/15/16 [address] [place], [place] [id number] None PCP - General 10/16/16 01/10/17 Allyson Pool PA PCP - General 04/27/17 [facility] [address] [place] [address] Guillermo Martinez MD MD Cardiology 11/15/17 [address] [place] [address] documented as of this encounter
--- OUTSIDE RECORDS SUMMARY | 2022-02-24 15:54 | XMS_ITS | Encounter Summary ---
:1935 Author Organization [place] Address [address] [facility] [place] [address] Care Team Providers Name Role Phone Alicia Ncie MD Primary Care Provider Unavailable Les Fair MD Primary Care Provider [facility] Primary Care Provider [phone] Primary Care Provider Unavailable Allyson Pool Primary Care Provider Guillermo Martinez MD Unavailable Encounter Details Date Type Department Care Team Description 11/01/2005 Office Visit-[facility] Heart Unknown, Eugene nascimento MD [address] [address] Social History Tobacco Use Types Packs/Day Years Used Date Smoking Tobacco: Never Assessed Sex Assigned at Date Recorded Not on file documented as of this encounter Progress Notes Unknown, DoctorMD - 12/14/2005 3:46 PM CDT Progress Note Created by: Jesús Almanza N.P. DATE: 11/01/2005 WAQAR LUNDBERG DATE OF : 1935 AGE: [age] years old Referring Physician: ALICIA NICE Referring Clinic: [facility] CURRENT DIAGNOSES 1. - CAD, 414.00 2. Hypertension-Essential (Benign), 401.1 3. - Hyperlipidemia, 272.4 4. Status post-PTCA, V45.82 5. Obesity-(<LT>100 ), 278.00 6. [place]-Acute Anterior, 410.11 7. Ventricular tachycardia, [...] lateral wall myocardial infarction with a new tghtz-qb-przzugyl sized reversible anterior defect, consistent with mild [...] disease, S/P myocardial infarction-anterior, VF arrest with [place], NSVT immed after [place],Lat [place] 1980, Ant [place] (Vfib) 10-13 Cath-PTCA LAD(too tortuous for stent), [...] Residence - lives with ;Place of - [place]; REVIEW OF SYSTEMS GENERAL weight loss of [...] filedocumented in this encounter Care Teams Business Banking Manager Relationship Specialty Start Date End Date Alicia Nice MD PCP - General Family Practice 08/25/12 6 Les Fair MD PCP - General Family Practice 08/23/15 12/29/15 [address] [place] [address] [facility] PCP - General 12/30/15 10/15/16 [address] [place] [address] None PCP - General 10/16/16 01/10/17 Allyson Pool PA PCP - General 04/27/17 [facility] [address] [place] [address] Guillermo Martinez MD MD Cardiology 11/15/17 [address] [place] [phone] documented as of this encounter
--- OUTSIDE RECORDS SUMMARY | 2022-02-24 15:54 | XMS_ITS | Encounter Summary ---
:1935 Author Organization [place] Address [address] [facility] [place] [address] Care Team Providers Name Role Phone Shawn Nice MD Primary Care Provider Unavailable Les Fair MD Primary Care Provider [facility] Primary Care Provider [phone] Primary Care Provider Unavailable Allyson Pool Primary Care Provider Guillermo Martinez MD Unavailable Encounter Details Date Type Department Care Team Description 12/07/2003 Office Visit-[facility] Heart Unknown, Eugene nascimento MD [address] [address] Social History Tobacco Use Types [...] post-PTCA, v45.82 5. Obesity-(<LT>100 ), 278.00 6. [place]-Acute Anterior, 410.11 7. Ventricular tachycardia, 427.1 ALLERGIES [...] delightful 68-year-old female who presents to the [facility] today for a blood pressure [...] always; Occupation - retired; Place of - [place]; ____ REVIEW OF SYSTEMS GENERAL weight gain [...] on filedocumented in this encounter Care Teams Hat Ironer Relationship Specialty Start Date End Date Shawn Nice MD PCP - General Family Practice 08/25/12 6 Les Fair MD PCP - General Family Practice 08/23/15 12/29/15 [address] [place] [address] [facility] PCP - General 12/30/15 10/15/16 [address] [place], [place] [id number] None PCP - General 10/16/16 01/10/17 Allyson Pool PA PCP - General 04/27/17 [facility] [address] [place] [id number] Guillermo Martinez MD MD Cardiology 11/15/17 [address] [place] [phone] documented as of this encounter
--- OUTSIDE RECORDS SUMMARY | 2022-02-24 15:54 | XMS_ITS | Encounter Summary ---
:1935 Author Organization [place] Address [address] [facility] [place] [address] Care Team Providers Name Role Phone Shawn Nice MD Primary Care Provider Unavailable Les Fair MD Primary Care Provider [facility] Primary Care Provider [phone] None Primary Care Provider Unavailable Allyson Pool Primary Care Provider Guillermo Martinez MD Unavailable Encounter Details Date Type Department Care Team Description 01/14/2003 Office Visit-[facility] Heart Unknown, Eugene nascimento MD [address] [address] Social History Tobacco Use Types [...] ), 278.00 5. Hypertension-Essential (Benign), 401.1 6. [place]-Acute Anterior, 410.11 7. Ventricular tachycardia, 427.1 ALLERGIES [...] months ago she had an anterior wall OR complicated by a V-fib cardiac arrest. She [...] disease, S/P myocardial infarction-anterior, VF arrest with OR, NSVT immed after OR,Lat OR 1980, Ant OR (Vfib) 10-13 Cath-PTCA LAD(too tortuous for stent), [...] on filedocumented in this encounter Care Teams Railroad Passenger Agent Relationship Specialty Start Date End Date Shawn Nice MD PCP - General Family Practice 08/25/12 6 Les Fair MD PCP - General Family Practice 08/23/15 12/29/15 [address] [place] [address] [facility] PCP - General 12/30/15 10/15/16 [address] [place], [place] [id number] None PCP - General 10/16/16 01/10/17 Allyson Pool PA PCP - General 04/27/17 [facility] [address] [place] [id number] Guillermo Martinez MD MD Cardiology 11/15/17 [address] [place] [phone] documented as of this encounter
--- OUTSIDE RECORDS SUMMARY | 2022-02-24 15:54 | XMS_ITS | Encounter Summary ---
:1935 Author Organization [place] Address [address] [facility] [place] [address] Care Team Providers Name Role Phone Alicia Nice MD Primary Care Provider Unavailable Les Fair MD Primary Care Provider [facility] Primary Care Provider [phone] Primary Care Provider Unavailable Allyson Pool Primary Care Provider Guillermo Martinez MD Unavailable Encounter Details Date Type Department Care Team Description 12/14/2004 Office Visit-[facility] Heart Unknown, Oscart MD azam [address] [address] Social History Tobacco Use Types [...] Physician: ALICIA NICE Referring Clinic: [facility] CURRENT DIAGNOSES 1. - CAD, 414.00 [...] - [place]; ____ REVIEW OF SYSTEMS GENERAL weight gain [...] about Josephine or Spencer's exercise program. Total residential treatment counselor time 30 minutes, greater than 50% counseling. TODAYS ORDERS 1. Treadmill Nuclear Study 9 months 2. F/U with Jesús Almanza, LUANA, ANP f/u nuc gxt, labs 3. Basic Metabolic Panel 9 months Guillermo Martinez M.D. documented in this encounter Plan of Treatment Not on filedocumented as of this encounter Visit Diagnoses Not on filedocumented in this encounter Care Teams Sprayer Hand Relationship Specialty Start Date End Date Alicia Nice MD PCP - General Family Practice 08/25/12 6 Les Fair MD PCP - General Family Practice 08/23/15 12/29/15 [address] [place] [address] [facility] PCP - General 12/30/15 10/15/16 [address] [place] [address] None PCP - General 10/16/16 01/10/17 Allyson Pool PA PCP - General 04/27/17 [facility] [address] [place] [place] [address] Guillermo Martinez MD MD Cardiology 11/15/17 [address] [place] [phone] documented as of this encounter
--- OUTSIDE RECORDS SUMMARY | 2022-02-24 15:54 | XMS_ITS | Encounter Summary ---
:1935 Author Organization [place] Address [facility] [place] [address] Care Team Providers Name Role Phone Alicia Nice MD Primary Care Provider Unavailable Les Fair MD Primary Care Provider [facility] Primary Care Provider [phone] Primary Care Provider Unavailable Allyson Pool Primary Care Provider Guillermo Martinez MD Unavailable Encounter Details Date Type Department Care Team Description 04/30/2008 Office Visit-[facility], Clinic [place] Fink, BUTTON SEWER HVAC MECHANIC [address] [place] [address] [place] [address] (Wo rk) Social History Tobacco Use Types Packs/Day Years Used Date Smoking Tobacco: Never Assessed Sex Assigned at Date Recorded Not on file documented as of this encounter Progress Notes Jesús Almanza, TECHNICIAN TEST SYSTEMS - 05/11/2008 5:24 PM CST Progress Note Created by: Jesús Almanza, N.P. DATE: 04/30/2008 WAQAR LUNDBERG DATE OF : 1935 AGE: [age] years old Referring Physician: ALICIA NICE Referring Clinic: [facility] CURRENT DIAGNOSES 1. Hypertension-Essential (Benign), 401.1 2. - Hyperlipidemia, 272.4 3. Status post-PTCA, V45.82 4. RI-Acute Anterior, 410.11 5. Ventricular tachycardia, 427.1 6. [...] after RI,Lat RI 1980, Ant RI (Vfib) 10-13 Cath-PTCA LAD(too tortuous for stent), [...] - lives with ; Place of - [place]; REVIEW OF SYSTEMS GENERAL weight gain, 3 [...] Left arm, large cuff 126/74 Retaken by TECHNICIAN TEST SYSTEMS/PA Pulse- 64.00/min. Weight- 248.20 lbs. Height- 65.00 [...] She plans to increase her exercise in [place] this winter and we will recheck when [...] with adjusting the dose while she is [place] and I would be more than happy to advise. It has been a great pleasure seeing Waqar in followup. I am happy that she is doing well and will plan to see her back in October of 2008. Jesús Almanza, N.P. documented in this encounter Plan of Treatment Not on filedocumented as of this encounter Visit Diagnoses Not on filedocumented in this encounter Care Teams Asphalt Surface Heater Operator Relationship Specialty Start Date End Date Alicia Nice MD PCP - General Family Practice 08/25/12 6 Les Fair MD PCP - General Family Practice 08/23/15 12/29/15 [address] [place] [address] [facility] PCP - General 12/30/15 10/15/16 [address] [place] [address] None PCP - General 10/16/16 01/10/17 Allyson Pool PA PCP - General 04/27/17 [facility] [address] [place] [place] [id number] Guillermo Martinez MD MD Cardiology 11/15/17 [address] [place] [phone] documented as of this encounter
--- OUTSIDE RECORDS SUMMARY | 2022-02-24 15:54 | XMS_ITS | Encounter Summary ---
:1935 Author Organization [place] Address [address] [facility] [place] [address] Care Team Providers Name Role Phone Shawn Nice MD Primary Care Provider Unavailable Les Fair MD Primary Care Provider [facility] Primary Care Provider [phone] None Primary Care Provider Unavailable Allyson Pool Primary Care Provider Guillermo Martinez MD Unavailable Encounter Details Date Type Department Care Team Description 01/14/2003 Office Visit-[facility] Heart Unknown, Eugene nascimento MD [address] [address] Social History Tobacco Use Types [...] ), 278.00 5. Hypertension-Essential (Benign), 401.1 6. [place]-Acute Anterior, 410.11 7. Ventricular tachycardia, 427.1 ALLERGIES [...] gxt, 5. Return Visit 1 month with RETIREMENT ASSISTANT f/u bp bmp Guillermo Martinez M.D. documented in this encounter Plan of Treatment Not on filedocumented as of this encounter Visit Diagnoses Not on filedocumented in this encounter Care Teams Burlap Spreader Relationship Specialty Start Date End Date Shawn Nice MD PCP - General Family Practice 08/25/12 6 Les Fair MD PCP - General Family Practice 08/23/15 12/29/15 [address] [place] [address] [facility] PCP - General 12/30/15 10/15/16 [address] [place] [address] None PCP - General 10/16/16 01/10/17 Allyson Pool PA PCP - General 04/27/17 [facility] [address] [place] [place] [id number] Guillermo Martinez MD MD Cardiology 11/15/17 [address] [place] [phone] documented as of this encounter
--- OUTSIDE RECORDS SUMMARY | 2022-02-24 15:54 | XMS_ITS | Encounter Summary ---
:1935 Author Organization [place] Address [address] [facility] [place] [address] Care Team Providers Name Role Phone Alicia Nice MD Primary Care Provider Unavailable Encounter Details Date Type Department Care Team Description 11/29/2008 Historic Results [facility] Heart Unknown, Doct or, Clinic [address] [place] [address] Social History Tobacco Use Types Packs/Day Years [...] GEMMS Historical Results (11/29/2008 12:00 AM CDT) [facility] Method Time Signature Triglycerides 98 0 - [...] 11/29/2008 Doctor Unknown LABORATORY Performing Organization Address City/[facility] Phon e Number GEMMS HISTORICAL RESULTS documented in this encounter Visit Diagnoses Not on filedocumented in this encounter Care Teams Chemical Treatment Plant Technician Relationship Specialty Start Date End Date Alicia Nice MD PCP - General Family Practice 08/25/12 6 documented as of this encounter
--- OUTSIDE RECORDS SUMMARY | 2022-02-24 15:54 | XMS_ITS | Clinical Summary ---
:1935 Author Organization [facility] [place] [address] Care Team Providers Name Role Phone Alicia [...] Health Maintenance Due Date Last Done Comments Tdap 1948 Depression screening for age 12+ 1949 BMI (ht and wt on same day) for age 0711/24/1955 18+ Tetanus booster 1957 Zoster (shingles) series for age 50+ 11/24/1987 (1 of 2) DEXA/DXA scan for age 65+ 2002 Pneumococcal series for age 65+ (1 - 2002 PCV) COVID-19 vaccine series (4 - Booster 05/19/2021 03/24/2021, 07/09/2020, for Pfizer series) 06/18/2020 Influenza for age 65+ 01/11/2022 Results Not on filefrom Last 3 Months Insurance Payer Benefit Plan / Subscriber ID Effective Phone Address T ype Group Dates MEDICARE PART B MEDICARE PART B [id number] 2002-Pres A TTN: CLAIMS - HB USE ONLY HB ONLY ent [address] [place] [address] MEDICARE - PB MEDICARE PB [id number] Effective for ATTN: C LAIMS USE ONLY ONLY all dates [address] [place] [address] COMMERCIAL COMMERCIAL [id number] 2004-Pres [phone] CLAIMS ent [address] [address] [place] [address] BLUE CROSS BLUE CROSS OF [id number] 2016-Pres [id number] [place] [address] Care Teams Electric Lift Truck Driver Relationship Specialty Start Date End Date Alicia Nice MD PCP - General 09/07/06 [address] [place] [address]
--- OUTSIDE RECORDS SUMMARY | 2022-02-24 15:54 | XMS_ITS | Encounter Summary ---
:1935 Author Organization [place] Address [address] [facility] [place] [address] Care Team Providers Name Role Phone Alicia Nice MD Primary Care Provider Unavailable Les Fair MD Primary Care Provider [facility] Primary Care Provider [phone] Primary Care Provider Unavailable Allyson Pool Primary Care Provider Guillermo Martinez MD Unavailable Encounter Details Date Type Department Care Team Description 10/02/2005 Office Visit-[facility] Heart Unknown, Eugene nascimento MD [address] [address] Social History Tobacco Use Types Packs/Day Years Used Date Smoking Tobacco: Never Assessed Sex Assigned at Date Recorded Not on file documented as of this encounter Progress Notes Unknown, DoctorMD - 10/04/2005 11:05 AM CDT Progress Note Created by: Jesús Almanza N.P. DATE: 10/02/2005 WAQAR LUNDBERG DATE OF : 1935 AGE: [age] years old Referring Physician: ALICIA NICE Referring Clinic: [facility] CURRENT DIAGNOSES 1. - CAD, 414.00 2. Obesity-(<LT>100 ), 278.00 3. Hypertension-Essential (Benign), 401.1 4. - Hyperlipidemia, 272.4 5. Status post-PTCA, V45.82 6. [place]-Acute Anterior, 410.11 7. Ventricular tachycardia, 427.1 ALLERGIES [...] angioplasty. 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 Compared to 2003, the new finding includes mild anterior ischemia. This patient walked the same amount onthe treadmill, had no EKG changes consistent with ischemia. By history she tells me her typical angina is chest pressure, with her initial WA, radiating down her left arm. She is [...] for her. When she saw someone in [place] for complaints of joint discomfort in her [...] - [place]; REVIEW OF SYSTEMS GENERAL weight gain of [...] disease with history of a lateral wall WA at age 44. Anterior wall WA in 2002 with a ventricular fibrillation arrest, [...] respond to furosemide given to her in [place]. I have made no other changes. She [...] clinical notes for further discussion. Jesús Almanza CNP/[facility]/[id number] (Enter Doctor Dictated Impressions Here) TODAYS ORDERS 1. F/U with Guillermo Martinez MD followup Jesús Almanza, N.P. documented in this encounter Plan of Treatment Not on filedocumented as of this encounter Visit Diagnoses Not on filedocumented in this encounter Care Teams Accounting Software Specialist Relationship Specialty Start Date End Date Alicia Nice MD PCP - General Family Practice 08/25/12 6 Les Fair MD PCP - General Family Practice 08/23/15 12/29/15 [address] [place] [address] [facility] PCP - General 12/30/15 10/15/16 [address] [place] [address] None PCP - General 10/16/16 01/10/17 Allyson Pool PA PCP - General 04/27/17 [facility] [address] [place] [address] Guillermo Martinez MD MD Cardiology 11/15/17 [address] [place] [phone] documented as of this encounter
--- OUTSIDE RECORDS SUMMARY | 2022-02-24 15:54 | XMS_ITS | Encounter Summary ---
:1935 Author Organization [place] Address [facility] [place] [address] Care Team Providers Name Role Phone Alicia Nice MD Primary Care Provider Unavailable Les Fair MD Primary Care Provider [facility] Primary Care Provider [phone] Primary Care Provider Unavailable Allyson Pool Primary Care Provider Guillermo Martinez MD Unavailable Encounter Details Date Type Department Care Team Description 04/16/2008 Office Visit-[facility] mand[facility], Clinic [place] Fink, EYE PHYSICIAN DREDGE CAPTAIN [address] [place] [address] [place] [id number] (Wo rk) Social History Tobacco Use Types Packs/Day Years Used Date Smoking Tobacco: Never Assessed Sex Assigned at Date Recorded Not on file documented as of this encounter Progress Notes Jesús Almanza, RESISTOR INSPECTOR - 05/11/2008 5:24 PM CST Progress Note Created by: Jesús Almanza, N.P. DATE: 04/16/2008 WAQAR LUNDBERG DATE OF : 1935 AGE: [age] years old Referring Physician: ALICIA NICE Referring Clinic: [facility] CURRENT DIAGNOSES 1. Hypertension-Essential (Benign), 401.1 2. - Hyperlipidemia, 272.4 3. Status post-PTCA, V45.82 4. WI-Acute Anterior, 410.11 5. Ventricular tachycardia, 427.1 6. [...] has known coronary disease with her first WI 25 years ago with a very strong family history of heart disease. 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 She had an anterior WI in '03 with a V-fib cardiac arrest. [...] leave for the winter months right before [place]. PAST HISTORY Past Medical Illnesses: hyperlipidemia, hypertension, obesity, cellulitis, benign breast bx, lung nodule (followed by CT perpmd), varicose vein Past Cardiac Illnesses: coronary artery disease, S/P myocardial infarction-anterior, VF arrest with WI, NSVT immed after WI,Lat WI 1980, Ant WI (Vfib) 6- Cath-PTCA LAD(too tortuous for stent), [...] - lives with ; Place of - [place]; REVIEW OF SYSTEMS GENERAL denies recent weight [...] on filedocumented in this encounter Care Teams Electron Beam Welding Machine Operator Relationship Specialty Start Date End Date Alicia Nice MD PCP - General Family Practice 08/25/12 6 Les Fair MD PCP - General Family Practice 08/23/15 12/29/15 [address] [place] [address] [facility] PCP - General 12/30/15 10/15/16 [address] [place] [address] None PCP - General 10/16/16 01/10/17 Allyson Pool PA PCP - General 04/27/17 [facility] [address] [place] [address] Guillermo Martinez MD MD Cardiology 11/15/17 [address] [place] [phone] documented as of this encounter
--- OUTSIDE RECORDS SUMMARY | 2022-02-24 15:54 | XMS_ITS | Encounter Summary ---
:1935 Author Organization [place] Address [address] [place] [address] Care Team Providers Name Role Phone Alicia Nice MD Primary Care Provider Unavailable Les Fair MD Primary Care Provider Encounter Details Date Type Department Care Team Description 11/08/2002 Historic Results [facility] Heart Unknown, [facility] [address] [place] [address] Social History Tobacco Use Types [...] filedocumented in this encounter Care Teams Library Services Assistant Relationship Specialty Start Date End Date Alicia Nice MD PCP - General Family Practice 08/25/12 6 Les Fair MD PCP - General Family Practice 08/23/15 12/29/15 [address] [place] [address] documented as of this encounter
--- OUTSIDE RECORDS SUMMARY | 2022-02-24 15:54 | XMS_ITS | Encounter Summary ---
:1935 Author Organization [place] Address [address] [facility] [place] [address] Care Team Providers Name Role Phone Shawn Nice MD Primary Care Provider Unavailable Les Fair MD Primary Care Provider [facility] Primary Care Provider [phone] Primary Care Provider Unavailable Allyson Pool Primary Care Provider Guillermo Martinez MD Unavailable Encounter Details Date Type Department Care Team Description 10/28/2006 Office Visit-[facility] Heart Saw Martinez, Clinic Karina [place] [address] [facility] [address] [facility] [address] [place] [address] [place] [phone] (Wo rk) Social History [...] old Referring Physician: SHAWN NICE Referring Clinic: [facility] CURRENT DIAGNOSES 1. Hypertension-Essential (Benign), 401.1 2. - Hyperlipidemia, 272.4 3. Status post-PTCA, V45.82 4. MD-Acute Anterior, 410.11 5. Ventricular tachycardia, 427.1 6. [...] is acceptable. She was seen in an [facility] for dizziness which sounds like inner ear. She was prescribed what sounds like Antivert. She has had no further recurrence of that problem. PAST HISTORY Past Medical Illnesses: hyperlipidemia, hypertension, obesity, cellulitis, benign breast bx, lung nodule (followed by CT perpmd), varicose vein Past Cardiac Illnesses: coronary artery disease, S/P myocardial infarction-anterior, VF arrest with MD, NSVT immed after MD,Lat MD 1980, Ant MD (Vfib) 10-13 Cath-PTCA LAD(too tortuous for stent), [...] Residence - lives with ;Place of - [place]; REVIEW OF SYSTEMS GENERAL weight gain, weight [...] on filedocumented in this encounter Care Teams Laser Beam Machine Operator Relationship Specialty Start Date End Date Shawn Nice MD PCP - General Family Practice 08/25/12 6 Les Fair MD PCP - General Family Practice 08/23/15 12/29/15 [address] [place] [address] [facility] PCP - General 12/30/15 10/15/16 [address] [place] [address] None PCP - General 10/16/16 01/10/17 Allyson Pool PA PCP - General 04/27/17 [facility] [address] [place] [place] [address] Guillermo Martinez MD MD Cardiology 11/15/17 [address] [facility] [address] [place] [phone] documented as of this encounter
--- OUTSIDE RECORDS SUMMARY | 2022-02-24 15:54 | XMS_ITS | Encounter Summary ---
:1935 Author Organization [place] Address [address] [facility] [place] [address] Care Team Providers Name Role Phone Alicia Nice MD Primary Care Provider Unavailable Les Fair MD Primary Care Provider [facility] Primary Care Provider [phone] Primary Care Provider Unavailable Allyson Pool Primary Care Provider Guillermo Martinez MD Unavailable Encounter Details Date Type Department Care Team Description 11/04/2007 Office Visit-[facility] Heart Saw Martinez, Clinic Karina [place] [address] [facility] [address] [facility] [address] [place] [address] [place] [phone] (Wo rk) Social History [...] old Referring Physician: ALICIA NICE Referring Clinic: [facility] CURRENT DIAGNOSES 1. Hypertension-Essential (Benign), 401.1 2. - Hyperlipidemia, 272.4 3. Status post-PTCA, V45.82 4. MO-Acute Anterior, 410.11 5. Ventricular tachycardia, 427.1 6. [...] disease, S/P myocardial infarction-anterior, VF arrest with MO, NSVT immed after MO,Lat MO 1980, Ant MO (Vfib) 10-13 Cath-PTCA LAD(too tortuous for stent), [...] - lives with ; Place of - [place]; REVIEW OF SYSTEMS GENERAL weight gain, 2lbs, [...] on filedocumented in this encounter Care Teams Raw Juice Weigher Relationship Specialty Start Date End Date Alicia Nice MD PCP - General Family Practice 08/25/12 6 Les Fair MD PCP - [facility] Family Practice 08/23/15 12/29/15 [address] [place] [address] [facility] PCP - General 12/30/15 10/15/16 [address] [place] [address] None PCP - General 10/16/16 01/10/17 Allyson Pool PA PCP - General 04/27/17 [facility] [address] [place] [address] Guillermo Martinez MD MD Cardiology 11/15/17 [address] [place] [phone] documented as of this encounter
--- OUTSIDE RECORDS SUMMARY | 2022-02-24 15:54 | XMS_ITS | Encounter Summary ---
:1935 Author Organization [place] Address [address] [facility] [place] [address] Care Team Providers Name Role Phone Alicia Nice MD Primary Care Provider Unavailable Les Fair MD Primary Care Provider Encounter Details Date Type Department Care Team Description 11/16/2002 Historic Results [facility] Heart Unknown, [facility] [address] [place] [address] Social History Tobacco Use Types [...] on filedocumented in this encounter Care Teams Oil Rag Washer Relationship Specialty Start Date End Date Alicia Nice MD PCP - General Family Practice 08/25/12 6 Les Fair MD PCP - General Family Practice 08/23/15 12/29/15 [address] [place] [address] documented as of this encounter
--- OUTSIDE RECORDS SUMMARY | 2022-02-24 15:54 | XMS_ITS | Encounter Summary ---
:1935 Author Organization [place] Address [address] [facility] [place] [address] Care Team Providers Name Role Phone Alicia Nice MD Primary Care Provider Unavailable Les Fair MD Primary Care Provider [facility] Primary Care Provider [phone] None Primary Care Provider Unavailable Allyson Pool Primary Care Provider Guillermo Martinez MD Unavailable Encounter Details Date Type Department Care Team Description 11/22/2003 Office Visit-[facility] Heart Unknown, Oscart MD azam [address] [address] Social History Tobacco Use Types Packs/Day Years Used Date Smoking Tobacco: Never Assessed Sex Assigned at Date Recorded Not on file documented as of this encounter Progress Notes Unknown, DoctorMD - 11/24/2003 12:57 PM CDT Progress Note Created by: Guillermo Martinez M.D. DATE: 11/22/2003 WAQAR LUNDBERG DATE OF : 1935 AGE: [age] years old Referring Physician: ALICIA NICE Referring Clinic: [facility] CURRENT DIAGNOSES 1. - CAD, 414.00 2. Hypertension-Essential (Benign), 401.1 3. - Hyperlipidemia, 272.4 4. Status post-PTCA, v45.82 5. Obesity-(<LT>100 ), 278.00 6. FL-Acute Anterior, 410.11 7. Ventricular tachycardia, [...] Occupation - retired; Place of - [place]; ____ REVIEW OF SYSTEMS GENERAL weight gain, [...] on filedocumented in this encounter Care Teams Hot Sealing Machine Operator Relationship Specialty Start Date End Date Alicia Nice MD PCP - General Family Practice 08/25/12 6 Les Fair MD PCP - General Family Practice 08/23/15 12/29/15 [address] [place] [address] [facility] PCP - General 12/30/15 10/15/16 [address] [place] [address] None PCP - General 10/16/16 01/10/17 Allyson Pool PA PCP - General 04/27/17 [facility] [address] [place] [address] Guillermo Martinez MD MD Cardiology 11/15/17 [address] [place] [address] documented as of this encounter
--- OUTSIDE RECORDS SUMMARY | 2022-02-24 15:54 | XMS_ITS | Encounter Summary ---
:1935 Author Organization [place] Address [address] [facility] [place] [address] Care Team Providers Name Role Phone Alicia Nice MD Primary Care Provider Unavailable Les Fair MD Primary Care Provider Encounter Details Date Type Department Care Team Description 09/25/2005 Historic Results [facility] Heart Unknown, [facility] [address] [place] [address] Social History Tobacco Use Types [...] on filedocumented in this encounter Care Teams Corrections Lieutenant Relationship Specialty Start Date End Date Alicia Nice MD PCP - General Family Practice 08/25/12 6 Les Fair MD PCP - General Family Practice 08/23/15 12/29/15 [address] [place] [address] documented as of this encounter
--- OUTSIDE RECORDS SUMMARY | 2022-02-24 15:54 | XMS_ITS | Encounter Summary ---
:1935 Author Organization [place] Address [facility] [place] [address] Care Team Providers Name Role Phone Alicia Nice MD Primary Care Provider Unavailable Les Fair MD Primary Care Provider [facility] Primary Care Provider [phone] None Primary Care Provider Unavailable Allyson Pool Primary Care Provider Guillermo Martinez MD Unavailable Encounter Details Date Type Department Care Team Description 02/17/2003 Office Visit-[facility] Heart Unknown, Eugene nascimento MD [address] [address] Social History Tobacco Use Types [...] post-PTCA, v45.82 5. Obesity-(<LT>100 ), 278.00 6. MT-Acute Anterior, 410.11 7. Ventricular tachycardia, 427.1 ALLERGIES [...] disease, S/P myocardial infarction-anterior, VF arrest with MT, NSVT immed after MT,Lat MT 1980, Ant MT (Vfib) 10-13 Cath-PTCA LAD(too tortuous for stent), [...] always; Occupation - retired; Place of - [place]; ____ REVIEW OF SYSTEMS GENERAL denies recent [...] Left arm, large cuff 140/78 Retaken by TERRA COTTA MOLD MAKER-after resting 5 mins Pulse- 52.00/min. Weight- 228.60 [...] on filedocumented in this encounter Care Teams Care Team Coordinator Scheduler Relationship Specialty Start Date End Date Alicia Nice MD PCP - General Family Practice 08/25/12 6 Les Fair MD PCP - General Family Practice 08/23/15 12/29/15 [address] [place] [address] [facility] PCP - General 12/30/15 10/15/16 [address] [place] [address] None PCP - General 10/16/16 01/10/17 Allyson Pool PA PCP - General 04/27/17 [facility] [address] [place] [address] Guillermo Martinez MD MD Cardiology 11/15/17 [address] [place] [id number] documented as of this encounter
--- OUTSIDE RECORDS SUMMARY | 2022-02-24 15:54 | XMS_ITS | Encounter Summary ---
:1935 Author Organization [place] Address [address] [facility] [place] [address] Care Team Providers Name Role Phone Shawn Nice MD Primary Care Provider Unavailable Les Fair MD Primary Care Provider [facility] Primary Care Provider [phone] None Primary Care Provider Unavailable Allyson Pool Primary Care Provider Guillermo Martinez MD Unavailable Encounter Details Date Type Department Care Team Description 02/19/2006 Office Visit-[facility] Heart Saw Martinez, Clinic Karina EVANGELISTA [address] [facility] [address] [facility] [address] [place] [address] [place] [address] (Wo rk) Social History [...] old Referring Physician: SHAWN NICE Referring Clinic: [facility] CURRENT DIAGNOSES 1. Hypertension-Essential (Benign), 401.1 2. - Hyperlipidemia, 272.4 3. Status post-PTCA, V45.82 4. [place]-Acute Anterior, 410.11 5. Ventricular tachycardia, 427.1 6. [...] on filedocumented in this encounter Care Teams Nutrient Management Specialist Relationship Specialty Start Date End Date Shawn Nice MD PCP - General Family Practice 08/25/12 6 Les Fair MD PCP - General Family Practice 08/23/15 12/29/15 [address] [place] [address] [facility] PCP - General 12/30/15 10/15/16 [address] [place], [place] [id number] None PCP - General 10/16/16 01/10/17 Allyson Pool PA PCP - General 04/27/17 [facility] [address] [place] [address] Guillermo Martinez MD MD Cardiology 11/15/17 [address] [place] [address] documented as of this encounter
--- NOTE | 2022-02-24 16:13 | ED.GENADULT ---
HPI - General Adult General Chief complaint: Neuro Symptoms/Altered Deficit Stated complaint: UTI, confusion Time Seen by Provider: 02/24/22 14:58 Source: patient and family Mode of arrival: ambulatory Limitations: altered mental status History of Present Illness HPI narrative: 86-year-old female brought in today by her 88-year-old and her daughter because of increased confusion. Patient was seen here last Saturday and was diagnosed with the UTI and continuing dementia. She started on ciprofloxacin daily, her dementia and confusion symptoms have not gotten any better. In fact, she was brought in today because family feels like her symptoms are getting worse. She has been sitting in a chair for the last 4 days and has refused to get up even to use the bathroom. She has been eating very little. She also went outside today without any coat or shoes because she stated that she wanted to ?go home?. Daughter also states that she has been stating that people are outside the home, have here there have been no people outside of the home. No fevers or chills. No vomiting. Related Data Home Medications Medication Instructions Recorded Confirmed amlodipine 5 mg tablet 5 mg PO DAILY 02/21/22 02/21/22 aspirin 81 mg tablet,delayed 81 mg PO DAILY 02/21/22 02/21/22 release donepezil 10 mg tablet 10 mg PO DAILY 02/21/22 02/21/22 labetalol 100 mg tablet 50 - 100 mg PO Q12H 02/21/22 02/21/22 nitroglycerin 0.4 mg sublingual 0.4 mg sublingual Q5-15M PRN 02/21/22 02/21/22 tablet quetiapine 25 mg tablet 25 mg PO DAILY PRN 02/21/22 02/21/22 rosuvastatin 40 mg tablet 40 mg PO DAILY 02/21/22 02/21/22 triamterene 37.5 0.5 tab PO DAILY 02/21/22 02/21/22 mg-hydrochlorothiazide 25 mg tablet venlafaxine 75 mg capsule,extended 75 mg PO DAILY 02/21/22 02/21/22 release 24 hr Previous Rx's Medication Instructions Recorded ciprofloxacin HCl 250 mg tablet 250 mg PO BID #14 tabs 02/21/22 (Cipro) Allergies Allergy/AdvReac Type Severity Reaction Status Date / Time No Known Drug Allergies Allergy Verified 02/21/22 10:10 Review of Systems Status of ROS: Reports: unobtainable due to mental status [facility] Social History Smoking Status: Never smoker Do you use any of these nicotine containing products: None Second hand tobacco smoke exposure: No How often do you have a drink containing alcohol: 4 or more times a week How many standard drinks containing alcohol do you have on a typical day: 1 or 2 AUDIT-C Alcohol total score: 4 Non-prescribed substance use: denies use Exam Narrative: Exam Narrative: Well-nourished well-developed patient in no acute distress. Patient is cooperative and answers questions. Most of the time she states ?ask my daughter? HEENT: Normocephalic atraumatic. Pupils are equally round reactive to light. Extraocular muscles are intact. Conjunctivae are moist without any icterus noted. Moist mucous membranes. Cardiovascular: Heart is regular rate and rhythm S1 and S2 are present. Lungs: Clear to auscultation bilaterally no wheezes rhonchi or rales are appreciated. Patient takes deep breaths without any discomfort. Abdomen: Soft and nontender nondistended with normal bowel sounds. Skin: Well perfused without any obvious rashes. Const: Vital Signs, click to edit/add: Vital Signs - 24 hr 02/24/22 15:03 Temperature 96.7 F L Pulse Rate [Pulse Oximeter] 88 Respiratory Rate 16 Blood Pressure [Ri ght Upper Arm] 157/106 H Pulse Oximetry 95 Oxygen Delivery Me thod Room Air Course Vital Signs Vital signs: Initial Vital Signs Temperature 96.7 F L 02/24/22 15:03 Temperature Source Temporal Artery Scan 02/24/22 15:03 Pulse Rate 88 02/24/22 15:03 Pulse Rhythm 02/24/22 15:03 Respiratory Rate 16 02/24/22 15:03 Blood Pressure 157/106 H 02/24/22 15:03 Blood Pressure Mean 123 02/24/22 15:03 Blood Pressure Position Sitting 02/24/22 15:03 Pulse Oximetry 95 02/24/22 15:03 Oxygen Delivery Method 02/24/22 15:03 Vital Signs Temperature 96.7 F L 02/24/22 15:03 Pulse Rate 88 02/24/22 15:03 Respiratory Rate 16 02/24/22 15:03 Blood Pressure 157/106 H 02/24/22 15:03 Pulse Oximetry 95 02/24/22 15:03 Oxygen Delivery Method 02/24/22 15:03 Temperature 96.7 F L 02/24/22 15:03 Pulse Rate 88 02/24/22 15:03 Respiratory Rate 16 02/24/22 15:03 Blood Pressure 157/106 H 02/24/22 15:03 Pulse Oximetry 95 02/24/22 15:03 Oxygen Delivery Method 02/24/22 15:03 Medical Decision Making MDM Narrative Medical decision making narrative: I discussed living situation with both her and her daughter. Her states that he cannot take care of her the way she is. They would like placement for her. They thought that there was an open space at [facility] this last Saturday but the never heard back from anyone. Her states that he cannot take her home because he cannot take care of her. Discussed with Dr. Hughes who graciously accepted the patient for admission. Discharge Plan Discharge Clinical Impression: Dementia Patient Disposition: Admitted As Inpatient
--- NOTE | 2022-02-24 16:23 | CRLHL7_ITS ---
For Patients: As a result of the Cures Act, medical imaging exams and procedure reports are released immediately into your electronic medical record. You may view this report before your referring provider. If you have questions, please contact your health care provider. INDICATION: Stridor. 86-year-old female. TECHNIQUE: Chest radiograph 1 view COMPARISON: 02/21/2022 FINDINGS: Cardiovascular and mediastinum: The heart silhouette is normal in size and morphology. The mediastinum is normal in appearance. Lungs and pleural spaces: Both lungs are unremarkable in appearance. No sign of pleural effusion seen. No pneumothorax is identified. Bones and soft tissues: No significant findings. IMPRESSION: 1. No acute cardiopulmonary disease is seen. No changes from recent study on 02/21/2022. Dictated by Ariel Anderson MD @ 02/24/2022 6:14:56 PM Dictated by: Ariel Anderson MD @ 02/24/2022 18:15:08 (Electronically Signed)
[2022-02-24 17:42] LABS: Lactate* 1.1 mmol/L (0.5-1.9)
[2022-02-24 17:43] LABS: Basophils Absolute Auto 0.03 K/uL (0.00-0.30); Basophils Percent Auto 0.3 % (0.0-3.0); Eosinophils Percent Auto 1.1 % (0.0-7.0); Hematocrit 43.1 % (33.0-51.0); Hemoglobin* 14.6 gm/dL (12.0-16.0); Immature Granulocytes Abs Auto 0.01 K/uL (0.00-0.30); Lymphocytes Absolute Auto 2.81 K/uL (0.90-2.90); Lymphocytes Percent Auto 31.8 % (20-44); Mean Corpuscular HGB Conc 34 gm/dL (32-36); Mean Corpuscular Hemoglobin 31 pg (26-34); Mean Corpuscular Volume 92 fL (80-100); Monocytes Percent Auto 7.2 % (0.0-11.0); Neutrophils Absolute Auto 5.24 K/uL (1.7-7.0); Neutrophils Percent Auto 59.5 % (42.0-72.0); Platelet Count* 205 K/uL (140-440); RDW Coefficient of Variation % 12.9 % (11.5-15.5); Red Blood Count 4.69 m/uL (4.00-5.20); White Blood Count* 8.83 K/uL (4.50-11.00)
[2022-02-24 17:46] LABS: Slide Review Reflex No
[2022-02-24 18:06] LABS: Albumin* 3.9 g/dL (3.3-5.0)
[2022-02-24 18:07] LABS: Chloride* 95 mmol/L (96-114); Sodium* 133 mmol/L (135-149)
[2022-02-24 18:09] LABS: Bilirubin Total* 0.7 mg/dL (0.1-1.5); Carbon Dioxide* 32 mmol/L (20-32); Creatinine* 0.7 mg/dL (0.5-1.5); Est. Creatinine Clearance* 36.16; Estimated Glomerular Filt Rate 85 ml/min
[2022-02-24 18:10] LABS: Alanine Aminotransferase* 14 U/L (4-35); Alkaline Phosphatase* 54 U/L (40-150); Aspartate Amino Transferase* 29 U/L (12-35); Blood Urea Nitrogen* 7 mg/dL (7-30); Glucose* 103 mg/dL (60-115)
[2022-02-24 19:19] LABS: PCR FLU A Negative PCR FLU A (Negative); PCR FLU B Negative PCR FLU B (Negative); PCR RSV Negative PCR RSV (Negative)
[2022-02-24 19:23] LABS: SARS PCR* Negative SARS-CoV-2 (Negative)
--- NOTE | 2022-02-24 19:54 | PC.NURSE ---
shift note: pt admit from ED accompanied by and daughter. pt has unsteady gait and needed reminding to use walker. Pt needs redirection due to wandering out of room. Pt tolerated late lunch. pt incont of urine. Pt denies pain.
[2022-02-24 22:42] LABS: SARS Antigen* negative (Negative)
--- NOTE | 2022-02-24 22:47 | P.IMHP_ITS ---
Hospitalist- H&P: HPI History of Present Illness Time Seen by Provider: 16:30 Date Seen: 02/24/22 Chief complaint: Advanced dementia with behavioral dyscontrol Narrative: Fidelia Vyas is a 86 year old woman who resides in her home with her . Her is her primary caregiver. Patient has advanced dementia of the Alzheimer's type. Has been progressing over the last 5 years. In the past few months her behaviors have become increasingly difficult for family to be able to address. This morning for instance she eloped outside of her home with no clothing on except her depends diaper on plus a coat in hand stating that she wanted to go back home. Her was eventually able to talk her into going back into their home. She has more episodes of confusion and disorientation. Has had evolving weight loss over the last few months, 5 lb since 31 January, 20 lb since April 2021, according to . Intermittently describes visual hallucinations, such as stating that there are people outside of the home when there are not. Patient was assessed at the [facility] Emergency Department 3 days ago and diagnosed with a urinary tract infection. She was started on ciprofloxacin. In the course of that assessment the hospital psych social worker staff became involved trying to help family with placement options. Family has been trying to achieve placement outside of the home in a residential facility or assisted living memory care type setting for a while but they have been unsuccessful. The patient's indicates he is no longer able to keep up with her. He indicates that his own health is starting to suffer because of his efforts to try to help his . Review of Systems Status of ROS: Reports: 10 or more systems reviewed and unremarkable except as noted in History and below Narrative: As best as I can ascertain in trying to talk with the patient, her , and her daughter, the patient denies chest heaviness, pressure, tightness, or pain. She denies syncope or near-syncope. Denies nausea or vomiting or abdominal pain. Denies dysphagia, odynophagia, or dyspepsia. Has intermittent loose stools but no diarrhea. No constipation. Has chronic incontinence of both bowel and bladder. Denies dyspnea at rest, dyspnea with exertion, paroxysmal nocturnal dyspnea, orthopnea. No lower extremity edema or claudication. According to her and daughter sometimes the patient will sit in a chair for literally 1-4 days and not get up. She has bowel elimination during this time and and daughter try to help clean up. They have noticed decrease in her oral intake over the last several weeks. On 22 January 2022 she was diagnosed with COVID-19. Had no real symptoms aside from change in behavior and was assessed and found to have COVID-19 at that time. Was treated with a 5 day course of Paxlovid. [facility] Medical History (Updated 02/24/22 @ 23:04 by Cory Ramachandran MD) Alcohol abuse Alzheimer's dementia with psychotic disturbance Bowel incontinence Coronary artery disease COVID-19 Essential hypertension Hyperlipidemia Hypokalemia Major depression Osteoporosis Urinary incontinence Urinary tract infection Weight loss Family History Mother High blood pressure Sister High blood pressure Social History Highest level of school completed/degree received: high school graduate Smoking Status: Never smoker Do you use any of these nicotine containing products: None Second hand tobacco smoke exposure: No How often do you have a drink containing alcohol: 4 or more times a week Alcohol type: other Alcohol type details: [employer] 1 nightly How many standard drinks containing alcohol do you have on a typical day: 1 or 2 AUDIT-C Alcohol total score: 4 Non-prescribed substance use: denies use Caffeine: Yes (2-3/dly) service: No Meds Home Medications and Allergies Home Medications Medication Instructions Recorded Confirmed Type amlodipine 5 mg tablet 5 mg PO DAILY 02/21/22 02/21/22 History aspirin 81 mg tablet,delayed 81 mg PO DAILY 02/21/22 02/21/22 History release donepezil 10 mg tablet 10 mg PO DAILY 02/21/22 02/21/22 History labetalol 100 mg tablet 50 - 100 mg PO Q12H 02/21/22 02/21/22 History nitroglycerin 0.4 mg sublingual 0.4 mg sublingual Q5-15M PRN 02/21/22 02/21/22 History tablet quetiapine 25 mg tablet 25 mg PO DAILY PRN 02/21/22 02/21/22 History rosuvastatin 40 mg tablet 40 mg PO DAILY 02/21/22 02/21/22 History triamterene 37.5 0.5 tab PO DAILY 02/21/22 02/21/22 History mg-hydrochlorothiazide 25 mg tablet venlafaxine 75 mg capsule,extended 75 mg PO DAILY 02/21/22 02/21/22 History release 24 hr Allergies Allergy/AdvReac Type Severity Reaction Status Date / Time No Known Drug Allergies Allergy Verified 02/21/22 10:10 Exam Narrative: Exam Narrative: No acute distress. Appears comfortable. Engages in very superficial conversation. [place] the same question multiple times. Friendly and cooperative. Alert, oriented to self and family. Not oriented to place or time or situation. States she wants to go home. Eats independently after food is presented to her. Independent transfer, station, and gait. No focal motor neurologic deficits. Preserved strength in upper and lower extremities. Vision and hearing are grossly normal. No lesions in the mouth. No icterus or conjunctival injection. Midline trachea. Normal thyroid. No JVD, hepatojugular reflux, or carotid bruits. No lymphadenopathy. Lungs are clear to auscultation without wheezing, rhonchi, or rales. No CVA tenderness. Heart tones with regular rhythm, normal S1-S2, without murmur, gallop, or rub. Extremities without edema. Skin is warm, dry, intact. Const: Vital Signs, click to edit/add: Vital Signs - 24 hr 02/24/22 15:03 02/24/22 16:57 02/24/22 16:00 Temperature 96.7 F L 98.7 F Pulse Rate [Left B rachial] 74 Pulse Rate [Pulse Oximeter] 88 Respiratory Rate 16 20 18 Blood Pressure [Le ft Arm] 140/88 H Blood Pressure [Ri ght Upper Arm] 157/106 H Pulse Oximetry 95 96 96 Oxygen Delivery Me thod Room Air Nasal Cannula Room Air 02/24/22 19:40 02/24/22 15:52 Temperature 97.3 F L 97.3 F L Pulse Rate [Left B rachial] 61 Pulse Rate [Pulse Oximeter] 88 Respiratory Rate 16 16 Blood Pressure [Le ft Arm] 161/81 H Blood Pressure [Ri ght Upper Arm] 157/106 H Pulse Oximetry 96 Oxygen Delivery Me thod Room Air Documenting provider has reviewed patient's vital signs: yes Hospitalist - H&P: Result Labs Labs: Short CBC 02/24/22 Range/Units 17:37 WBC 8.83 (4.50-11.00) K/uL Hgb 14.6 (12.0-16.0) gm/dL Hct 43.1 (33.0-51.0) % Plt Count 205 (140-440) K/uL BMP 02/24/22 17:37 Sodium 133 L Potassium 3.0 L Chloride 95 L Carbon Dioxide 32 BUN 7 Creatinine 0.7 Glucose 103 Calcium 9.0 Liver Function 02/24/22 Range/Units 17:37 Total Bilirubin 0.7 (0.1-1.5) mg/dL AST 29 (12-35) U/L ALT 14 (4-35) U/L Alkaline Phosphatase 54 (40-150) U/L Albumin 3.9 (3.3-5.0) g/dL Assessment and Plan Assessment and plan (1) Alzheimer's dementia with psychotic disturbance: Problem comment: Advanced. Family no longer able to safely care for her in their home. Status: Acute (2) Alcohol abuse: Problem comment: A shot of [employer] nightly Status: Acute (3) Urinary tract infection: Status: Acute (4) Hypokalemia: Status: Acute (5) Weight loss: Status: Acute (6) Urinary incontinence: Status: Acute (7) Bowel incontinence: Status: Acute Plan 1. Reviewed with patient, , and daughter. 2. For safety sake I recommended that patient be admitted for observation as we further assess her and make efforts toward establishing a safe disposition plan for her. 3. Continue with treatment for presumed bladder infection. 4. Potassium supplementation and monitoring of potassium level. 5. Physical and occupational therapy assessment and recommendations. 6. Roller Leveler to assist with discharge disposition planning. 7. Still need to discuss with the patient's resuscitation status. 8. Will empirically initiate gabapentin 100 mg 3 times a day in an effort to try to prevent alcohol withdrawal. Because of behavioral dyscontrol at home we will hold off on CIWA protocol at this juncture but will monitor closely. Consider administration of phenobarbital should she start to demonstrate additional signs and symptoms of alcohol withdrawal. 9. Assist with skin cares. 10. Patient, , and daughter agreeable with above stated plans and recommendations.
[2022-02-24] MEDS: POTASSIUM CHLORIDE 10 MEQ CAPSULE ER 40 MEQ PO (23:58)
[2022-02-24] MEDS: QUETIAPINE 25 MG TABLET PO (23:59)
[2022-02-24] MEDS: GABAPENTIN 100 MG CAPSULE PO (23:59)
[2022-02-25] VITALS (8 sets, daily range): BP systolic 91–128; BP diastolic 59–72; PULSE 64–73; RESP 16–18; TEMP 36.6–36.8; O2SAT 93–98
[2022-02-25] MEDS: LABETALOL HCL 100 MG TABLET PO ×2 (00:10→09:29)
--- NOTE | 2022-02-25 05:48 | PC.NURSE ---
SHIFT NOTE 23-: Uneventful night, pt oriented to self, confused but easily redirected and pleasant. Up 1 assist with walker. VSS on RA. Denies pain, SOB, and CP.
[2022-02-25 07:24] LABS: Sodium* 134 mmol/L (135-149)
[2022-02-25 07:51] LABS: Potassium* 2.8 mmol/L (3.6-5.1)
--- NOTE | 2022-02-25 08:02 | PC.NURSE ---
Potassium 2.8, updated Dr. Overton, see new orders
[2022-02-25 08:23] LABS: Magnesium* 1.9 mg/dL (1.5-2.6)
[2022-02-25] MEDS: POTASSIUM BICARB 25 MEQ EFFERVESCENT TAB PO ×2 (08:41→10:22)
[2022-02-25] MEDS: ASPIRIN 81 MG TABLET EC PO (08:42)
[2022-02-25] MEDS: GABAPENTIN 100 MG CAPSULE PO ×3 (08:42→20:25)
[2022-02-25] MEDS: DONEPEZIL 10 MG TABLET PO (08:42)
[2022-02-25] MEDS: POTASSIUM CHLORIDE 10 MEQ CAPSULE ER 20 MEQ PO ×2 (08:42→17:44)
[2022-02-25] MEDS: CIPROFLOXACIN 250 MG TABLET PO ×3 (08:42→20:25)
[2022-02-25] MEDS: VENLAFAXINE ER 75 MG CAPSULE PO (08:42)
[2022-02-25] MEDS: ROSUVASTATIN CALCIUM 10 MG TABLET 40 MG PO (08:42)
--- NOTE | 2022-02-25 13:42 | PC.NURSE ---
Shift Summary: Patient pleasant and cooperative. Up with one assist, walker and gait belt. Tolerating regular diet. Incontinent, staff perform corina cares and manage incont brief. Denies pain or SOB.
--- NOTE | 2022-02-25 16:46 | P.IMPN_ITS ---
Progress Note: A&P Assessment and plan (1) Urinary tract infection: Problem details: Specimen: [id number] Collected: 02/21/22 Received: 02/21/22 Source: Urine CC Sp Descrip: Sub Dr: Antonio Rosenberg M.D. Other Dr: Procedure Result Site Urine Culture Final ML Organism 1 Escherichia coli Ur [place] Count >100,000 CFU/ml E coli ROLA RX --------- --- Ampicillin >=32 R Ampicillin/Sulbactam 16 I Cefazolin <=4 S Cefepime <=1 S Cefoxitin <=4 S Ceftazidime <=1 S Ceftriaxone <=1 S Ciprofloxacin <=0.25 S Ertapenem <=0.5 S Gentamicin >=16 R Imipenem <=0.25 S Levofloxacin <=0.12 S Nitrofurantoin <=16 S Tobramycin 8 I Trimethoprim/Sulfamethoxazole >=320 R Piperacillin/Tazobactam <=4 S Status: Acute Assessment and Plan: Continue cipro (Ecoli is sensitive to this) (2) Bowel incontinence: Status: Chronic (3) Urinary incontinence: Status: Chronic (4) Hypokalemia: Status: Acute Assessment and Plan: Treat with oral replacement. Check Mg level. Recheck K in afternoon. (5) Alcohol abuse: Problem details: A shot of [place] whiskey nightly Status: Acute Assessment and Plan: No signs of withdrawal today. (6) Alzheimer's dementia with psychotic disturbance: Problem details: Advanced. Family no longer able to safely care for her in their home. Status: Acute (7) Weight loss: Status: Acute (8) Dementia: Status: Acute Plan No safe discharge plan today. Will need memory care placement. Subjective Time Seen by Provider: 11:00 Date Seen: 02/25/22 Interval history: Fidelia is pleasant and has no complaints. Exam Narrative: Exam Narrative: General: No acute distress. Awake, alert, oriented to self. No pallor. No jaundice. Oropharynx: Clear. Mucous membranes moist. Cardiovascular: Regular rate and rhythm. No murmurs, gallops, or rubs. Respiratory: Clear to auscultation bilaterally. No wheezes or crackles. Abdomen: Bowel sounds present. Soft, nondistended, nontender. Const: Vital Signs, click to edit/add: Vital Signs - 24 hr 02/24/22 16:57 02/24/22 19:40 02/24/22 22:30 Temperature 98.7 F 97.3 F L Pulse Rate [Left B rachial] 74 61 Respiratory Rate 20 16 Blood Pressure [Le ft Arm] 140/88 H 161/81 H Pulse Oximetry 96 96 96 Oxygen Delivery Me thod Nasal Cannula Room Air Room Air 02/24/22 23:00 02/24/22 23:00 02/25/22 03:00 Temperature 98.1 F Pulse Rate [Left B rachial] 80 Respiratory Rate 16 18 16 Blood Pressure [Le ft Arm] 159/87 H Pulse Oximetry 97 Oxygen Delivery Me thod Room Air 02/25/22 08:21 02/25/22 10:59 Temperature 98 F 97.8 F Pulse Rate [Left B rachial] 71 71 Respiratory Rate 18 18 Blood Pressure [Le ft Arm] 111/62 103/67 Pulse Oximetry 93 96 Oxygen Delivery Me thod Room Air Room Air Documenting provider has reviewed patient's vital signs: yes Labs Labs: Laboratory Results - last 24 hr 02/24/22 02/24/22 02/24/22 16:23 16:23 17:37 WBC 8.83 RBC 4.69 Hgb 14.6 Hct 43.1 MCV 92 MCH 31 MCHC 34 RDW Coeff of Lindsey 12.9 Plt Count 205 Neut % (Auto) 59.5 Lymph % (Auto) 31.8 [place] % (Auto) 7.2 Eos % (Auto) 1.1 Baso % (Auto) 0.3 Neut # (Auto) 5.24 Lymph # (Auto) 2.81 [place] # (Auto) 0.60 Eos # (Auto) 0.10 Baso # (Auto) 0.03 Abs Immat Gran (auto) 0.01 Sodium Potassium Chloride Carbon Dioxide BUN Creatinine Estimated Creat Clear Estimated GFR Glucose Lactate Calcium Magnesium Total Bilirubin AST ALT Alkaline Phosphatase Total Protein Albumin SARS-CoV-2 (PCR) Negative SARS-CoV-2 Influenza Type A (PCR) Negative PCR FLU A Influenza Type B (PCR) Negative PCR FLU B RSV (PCR) Negative PCR RSV SARS-CoV-2 Ag (Rapid) negative 02/24/22 02/24/22 02/25/22 17:37 17:37 05:34 WBC RBC Hgb Hct MCV MCH MCHC RDW Coeff of Lindsey Plt Count Neut % (Auto) Lymph % (Auto) [place] % (Auto) Eos % (Auto) Baso % (Auto) Neut # (Auto) Lymph # (Auto) [place] # (Auto) Eos # (Auto) Baso # (Auto) Abs Immat Gran (auto) Sodium 133 L 134 L Potassium 3.0 L 2.8 L* Chloride 95 L Carbon Dioxide 32 BUN 7 Creatinine 0.7 Estimated Creat Clear 36.16 Estimated GFR 85 Glucose 103 Lactate 1.1 Calcium 9.0 Magnesium 1.9 Total Bilirubin 0.7 AST 29 ALT 14 Alkaline Phosphatase 54 Total Protein 7.0 Albumin 3.9 SARS-CoV-2 (PCR) Influenza Type A (PCR) Influenza Type B (PCR) RSV (PCR) SARS-CoV-2 Ag (Rapid) 02/25/22 11:50 WBC RBC Hgb Hct MCV MCH MCHC RDW Coeff of Lindsey Plt Count Neut % (Auto) Lymph % (Auto) [place] % (Auto) Eos % (Auto) Baso % (Auto) Neut # (Auto) Lymph # (Auto) [place] # (Auto) Eos # (Auto) Baso # (Auto) Abs Immat Gran (auto) Sodium Potassium 4.0 Chloride Carbon Dioxide BUN Creatinine Estimated Creat Clear Estimated GFR Glucose Lactate Calcium Magnesium Total Bilirubin AST ALT Alkaline Phosphatase Total Protein Albumin SARS-CoV-2 (PCR) Influenza Type A (PCR) Influenza Type B (PCR) RSV (PCR) SARS-CoV-2 Ag (Rapid)
--- NOTE | 2022-02-25 18:36 | PC.NURSE ---
Shift [id number]- Patient is pleasant and cooperative, but confused. She seems to be aware she is confused as she makes comments that her mind isn't working right. She denies pain. BP is decreased- MD aware and directs we hold labetalol tonight (which was done). She is incontinent and pericares provided.
[2022-02-25] MEDS: QUETIAPINE 25 MG TABLET PO (20:25)
--- NOTE | 2022-02-26 05:13 | PC.NURSE ---
SHIFT NOTE 19-: Pt is pleasant and easily redirected, dementia, oriented to self only. Up 1 assist with a walker, tolerating well. Denies pain, SOB, CP, and N/V. Pt on restful night VS, uneventful night, slept well.
[2022-02-26 06:00] VITALS: RESP 16
[2022-02-26 07:00] VITALS: BP 110/63; PULSE 68; RESP 16; TEMP 37; O2SAT 91
--- NOTE | 2022-02-26 07:13 | PM.IMPN1 ---
Progress Note: A&P Assessment and plan (1) Urinary tract infection: Problem details: Specimen: [id number] Collected: 02/21/22 Received: 02/21/22 Source: Urine CC Sp Descrip: Sub Dr: Antonio Rosenberg M.D. Other Dr: Procedure Result Site Urine Culture Final ML Organism 1 Escherichia coli Ur [place] Count >100,000 CFU/ml E coli ROLA RX --------- --- Ampicillin >=32 R Ampicillin/Sulbactam 16 I Cefazolin <=4 S Cefepime <=1 S Cefoxitin <=4 S Ceftazidime <=1 S Ceftriaxone <=1 S Ciprofloxacin <=0.25 S Ertapenem <=0.5 S Gentamicin >=16 R Imipenem <=0.25 S Levofloxacin <=0.12 S Nitrofurantoin <=16 S Tobramycin 8 I Trimethoprim/Sulfamethoxazole >=320 R Piperacillin/Tazobactam <=4 S Status: Acute Assessment and Plan: Continue po cipro (Ecoli is sensitive to this), day 2/3. (2) Bowel incontinence: Status: Chronic (3) Urinary incontinence: Status: Chronic (4) Hypokalemia: Status: Acute Assessment and Plan: Resolved with oral replacement. Mg level wnl. (5) Alcohol abuse: Problem details: A shot of Kathya whiskey nightly Status: Acute Assessment and Plan: No signs of withdrawal. (6) Alzheimer's dementia with psychotic disturbance: Problem details: Advanced. Family no longer able to safely care for her in their home. Status: Acute Assessment and Plan: Needs memory care. No safe discharge option at this time. Appreciate SW involvement. (7) Weight loss: Status: Acute (8) Dementia: Status: Acute Subjective Time Seen by Provider: 07:30 Date Seen: 02/26/22 Interval history: Fidelia has no complaints. She denies pain, CP or SOB. Exam Narrative: Exam Narrative: General: No acute distress. Awake, alert, oriented to self. She knows she is in a hospital. No pallor. No jaundice. Oropharynx: Clear. Mucous membranes moist. Cardiovascular: Regular rate and rhythm. No murmurs, gallops, or rubs. Respiratory: Clear to auscultation bilaterally. No wheezes or crackles. Abdomen: Bowel sounds present. Soft, nondistended, nontender. Const: Vital Signs, click to edit/add: Vital Signs - 24 hr 02/25/22 08:21 02/25/22 10:59 02/25/22 15:30 Temperature 98 F 97.8 F 98.3 F Pulse Rate [Left B rachial] 71 71 73 Respiratory Rate 18 18 18 Blood Pressure [Le ft Arm] 111/62 103/67 91/59 L Pulse Oximetry 93 96 98 Oxygen Delivery Me thod Room Air Room Air Room Air 02/25/22 16:14 02/25/22 20:00 02/25/22 23:00 Temperature 98.2 F Pulse Rate [Left B rachial] 64 72 Respiratory Rate 16 18 Blood Pressure [Le ft Arm] 93/59 L 128/72 Pulse Oximetry 97 Oxygen Delivery Me thod Room Air 02/25/22 23:30 02/26/22 06:00 Temperature Pulse Rate [Left B rachial] Respiratory Rate 16 16 Blood Pressure [Le ft Arm] Pulse Oximetry Oxygen Delivery Me thod Documenting provider has reviewed patient's vital signs: yes Labs Labs: Laboratory Results - last 24 hr 02/25/22 02/25/22 05:34 11:50 Sodium 134 L Potassium 2.8 L* 4.0 Magnesium 1.9
[2022-02-26 07:29] LABS: Chloride* 98 mmol/L (96-114); Potassium* 3.6 mmol/L (3.6-5.1); Sodium* 135 mmol/L (135-149)
[2022-02-26 07:31] LABS: Creatinine* 0.7 mg/dL (0.5-1.5); Est. Creatinine Clearance* 36.16; Estimated Glomerular Filt Rate 85 ml/min
[2022-02-26 07:32] LABS: Blood Urea Nitrogen* 9 mg/dL (7-30); Calcium* 8.3 mg/dL (8.4-10.6); Carbon Dioxide* 33 mmol/L (20-32); Glucose* 86 mg/dL (60-115)
[2022-02-26] MEDS: POTASSIUM CHLORIDE 10 MEQ CAPSULE ER 20 MEQ PO ×2 (07:52→18:03)
[2022-02-26] MEDS: ASPIRIN 81 MG TABLET EC PO (08:54)
[2022-02-26] MEDS: DONEPEZIL 10 MG TABLET PO (08:54)
[2022-02-26] MEDS: VENLAFAXINE ER 75 MG CAPSULE PO (08:54)
[2022-02-26] MEDS: GABAPENTIN 100 MG CAPSULE PO ×3 (08:54→21:47)
[2022-02-26] MEDS: CIPROFLOXACIN 250 MG TABLET PO ×2 (08:54→21:46)
[2022-02-26] MEDS: ROSUVASTATIN CALCIUM 10 MG TABLET 40 MG PO (08:54)
[2022-02-26] MEDS: LABETALOL HCL 100 MG TABLET PO (08:54)
[2022-02-26 11:00] VITALS: BP 99/65; PULSE 71; RESP 16; TEMP 36.8; O2SAT 93
--- NOTE | 2022-02-26 14:23 | PC.SOCIAL ---
[facility] pt. They do not accept [employer] insurance but pt.'s secondary is [employer] [place]. Updated daughter who states she thinks her mother switched their insurance from [employer] to [employer] and she plans to switch her back to [employer] in May as the primary. Pt. has been pleasant. Family is hoping the [facility] can accept pt.
[2022-02-26 15:00] VITALS: BP 111/70; PULSE 62; RESP 14; TEMP 36.8; O2SAT 96
--- NOTE | 2022-02-26 18:07 | PC.NURSE ---
End of Shift: Patient pleasant and cooperative. Patient vitally stable, lungs clear, BS WNL, No IV. Patient 1 assist, walker, gb. Patient has used the toilet x3 this shift. Patient denies pain. Patient tolerating regular diet. Patient does not use call light and has attempted to get out chair alone once. Patient keeps thinking she is going home.
[2022-02-26] MEDS: QUETIAPINE 25 MG TABLET PO (21:46)
[2022-02-26 23:00] VITALS: RESP 16
[2022-02-26 23:30] VITALS: RESP 16
[2022-02-27] VITALS (7 sets, daily range): BP systolic 114–136; BP diastolic 55–80; PULSE 58–77; RESP 12–18; TEMP 36.9–37.3; O2SAT 94–96
--- NOTE | 2022-02-27 05:34 | PC.NURSE ---
SHIFT NOTE : Pt alert, oriented to self only, easily redirected, pleasant. Pt up 1 assist with a walker, tolerating well. Denies pain, SOB, CP, and N/V. VSS on RA. Pt slept well.
[2022-02-27] MEDS: POTASSIUM CHLORIDE 10 MEQ CAPSULE ER 20 MEQ PO ×2 (07:29→18:10)
[2022-02-27] MEDS: VENLAFAXINE ER 75 MG CAPSULE PO (08:48)
[2022-02-27] MEDS: CIPROFLOXACIN 250 MG TABLET PO ×2 (08:48→20:45)
[2022-02-27] MEDS: DONEPEZIL 10 MG TABLET PO (08:48)
[2022-02-27] MEDS: ASPIRIN 81 MG TABLET EC PO (08:48)
[2022-02-27] MEDS: ROSUVASTATIN CALCIUM 10 MG TABLET 40 MG PO (08:48)
[2022-02-27] MEDS: GABAPENTIN 100 MG CAPSULE PO ×3 (08:49→20:45)
--- NOTE | 2022-02-27 10:15 | CRLHL7_ITS ---
For Patients: As a result of the Century Cures Act, medical imaging exams and procedure reports are released immediately into your electronic medical record. You may view this report before your referring provider. If you have questions, please contact your health care provider. INDICATION: LEFT CALF PAIN, SWELLING COMPARISON: None. TECHNIQUE: A compression venous ultrasound exam was performed of the left lower extremity using melendez-scale imaging, color Doppler and spectral Doppler analysis. FINDINGS: Sonographic imaging of the left lower extremity demonstrates normal compressibility and color Doppler venous blood flow within the common femoral vein, deep femoral vein, and the proximal greater saphenous vein. Within the thigh, the femoral vein is patent and compressible. At a lower level, the popliteal and posterior tibial veins also show normal compressibility and color Doppler venous blood flow. Limited imaging of the contralateral groin demonstrates a normal spectral waveform and color Doppler venous blood flow within the right common femoral vein. Complex popliteal cyst is present with internal echoes measuring 5.8 x 2.0 x 1.9 cm. IMPRESSION: No evidence of deep vein thrombosis within the left lower extremity. Dictated by Mt Ramirez MD @ 02/27/2022 11:05:50 AM (Electronically Signed)
--- NOTE | 2022-02-27 14:18 | PM.IMPN1 ---
Progress Note: A&P Assessment and plan (1) Urinary tract infection: Problem details: Specimen: [id number] COMP Collected: 02/21/22 Received: 02/21/22 Source: Urine CC Sp Descrip: Sub Dr: Antonio Rosenberg M.D. Other Dr: Procedure Result Site Urine Culture Final ML Organism 1 Escherichia coli Ur [place] Count >100,000 CFU/ml E coli ROLA RX --------- --- Ampicillin >=32 R Ampicillin/Sulbactam 16 I Cefazolin <=4 S Cefepime <=1 S Cefoxitin <=4 S Ceftazidime <=1 S Ceftriaxone <=1 S Ciprofloxacin <=0.25 S Ertapenem <=0.5 S Gentamicin >=16 R Imipenem <=0.25 S Levofloxacin <=0.12 S Nitrofurantoin <=16 S Tobramycin 8 I Trimethoprim/Sulfamethoxazole >=320 R Piperacillin/Tazobactam <=4 S Status: Acute Assessment and Plan: Continue po cipro (Ecoli is sensitive to this), day 3/3. (2) Bowel incontinence: Status: Chronic (3) Urinary incontinence: Status: Chronic (4) Alcohol abuse: Problem details: A shot of Kathya HaloSourceey nightly Status: Acute Assessment and Plan: No signs of withdrawal. (5) Alzheimer's dementia with psychotic disturbance: Problem details: Advanced. Family no longer able to safely care for her in their home. Status: Acute Assessment and Plan: Needs memory care. No safe discharge option at this time. Appreciate SW involvement. (6) Weight loss: Status: Acute (7) Dementia: Status: Acute Plan No evidence of DVT in left lower extremity ultrasound. Continue Tacho's for VTE prophylaxis and frequent ambulation. Subjective Time Seen by Provider: 08:49 Date Seen: 02/27/22 Interval history: Fidelia complains of left posterior ankle pain. She denies any chest pain or shortness of breath. Exam Narrative: Exam Narrative: General: No acute distress. Awake, alert, oriented to self. She knows she is in a hospital. No pallor. No jaundice. Oropharynx: Clear. Mucous membranes moist. Cardiovascular: Regular rate and rhythm. No murmurs, gallops, or rubs. Respiratory: Clear to auscultation bilaterally. No wheezes or crackles. Extremities: Left lower extremity is painful in the low calf just above Achilles tendon with some swelling in this area as well. No erythema or induration. Const: Vital Signs, click to edit/add: Vital Signs - 24 hr 02/26/22 15:00 02/26/22 15:00 02/26/22 23:00 Temperature 98.2 F Pulse Rate [Left B rachial] 62 62 Respiratory Rate 14 14 16 Blood Pressure [Le ft Arm] Blood Pressure [Ri ght Arm] 111/70 Pulse Oximetry 96 Oxygen Delivery Me thod Room Air 02/26/22 23:30 02/27/22 06:00 02/27/22 07:00 Temperature Pulse Rate [Left B rachial] 61 Respiratory Rate 16 18 14 Blood Pressure [Le ft Arm] Blood Pressure [Ri ght Arm] Pulse Oximetry Oxygen Delivery Me thod 02/27/22 07:00 02/27/22 11:00 Temperature 98.5 F 98.6 F Pulse Rate [Left B rachial] 61 58 L Respiratory Rate 14 12 Blood Pressure [Le ft Arm] 136/80 114/63 Blood Pressure [Ri ght Arm] Pulse Oximetry 94 96 Oxygen Delivery Me thod Room Air Room Air Documenting provider has reviewed patient's vital signs: yes Imaging Venous US: Radiologist's impression: Ordering Physician: Lety Overton MD Date of Service: 02/27/22 Procedure(s): US venous LE LT Accession Number(s): [id number] cc: Lety Overton MD; Provider,Not a Local ~ For Patients: As a result of the Cures Act, medical imaging exams and procedure reports are released immediately into your electronic medical record. You may view this report before your referring provider. If you have questions, please contact your health care provider. INDICATION: LEFT CALF PAIN, SWELLING COMPARISON: None. TECHNIQUE: A compression venous ultrasound exam was performed of the left lower extremity using melendez-scale imaging, color Doppler and spectral Doppler analysis. FINDINGS: Sonographic imaging of the left lower extremity demonstrates normal compressibility and color Doppler venous blood flow within the common femoral vein, deep femoral vein, and the proximal greater saphenous vein. Within the thigh, the femoral vein is patent and compressible. At a lower level, the popliteal and posterior tibial veins also show normal compressibility and color Doppler venous blood flow. Limited imaging of the contralateral groin demonstrates a normal spectral waveform and color Doppler venous blood flow within the right common femoral vein. Complex popliteal cyst is present with internal echoes measuring 5.8 x 2.0 x 1.9 cm. IMPRESSION: No evidence of deep vein thrombosis within the left lower extremity. Dictated by Mt Ramirez MD @ 02/27/2022 11:05:50 AM (Electronically Signed)
--- NOTE | 2022-02-27 14:26 | PC.SOCIAL ---
Addendum entered by BORIS Mckenna 02/27/22 16:06: A message was also left with the [facility]. Addendum entered by BORIS Mckenna 02/27/22 15:16: [facility] may also have availability and is assessing. Original Note: [facility] is still assessing, pending out of network insurance [facility] [place]-Have a bed and is assessing [facility]-Message left with availability [facility]- Message left with availability [facility] in [place]-Full [facility] in [place]- , fo7Are assessing but need approval from Admin if they can take another elderly waiver resident [facility] has no bed for pt. [facility]-Declined pt. due to current needs of other residents [facility]-Message left @ [phone] [facility] does not have memory care [facility] [place]-Message left, critical access hospital website states they take the elderly waiver [facility] [place]- [place] Full [facility]Full [facility] [place]-Full Left a message for pt.'s daughter Onel at [phone] to update.
--- NOTE | 2022-02-27 18:20 | PC.NURSE ---
End of Shift: Patient pleasant and cooperative. Patient vitally stable, lungs clear, BS WNL, No IV. Patent denies pain. Patient 1 assist, walker, gb. Patient with wet brief this morning otherwise patient has used the toilet. Patient tolerating regular diet, No BM. Patient left ankle +1 pitting edema. Patient has napped more today compared to yesterday. visited for a little bit today.
[2022-02-27] MEDS: QUETIAPINE 25 MG TABLET PO (20:45)
[2022-02-28] VITALS (8 sets, daily range): BP systolic 119–127; BP diastolic 61–78; PULSE 52–74; RESP 16–20; TEMP 36.8–37; O2SAT 94–96
--- NOTE | 2022-02-28 04:43 | PM.IMPN1 ---
Progress Note: A&P Assessment and plan (1) Alzheimer's dementia with psychotic disturbance: Problem details: Advanced. Family no longer able to safely care for her in their home. Status: Acute Assessment and Plan: - no agitation or aggression. History of regular ETOH use, but no evidence of withdrawal or other ETOH complications - appreciate input from SW regarding discharge planning (2) Urinary tract infection: Problem details: Uncomplicated E Coli UTI on admission, completed 3 day course of Cipro 02/25-. Status: Acute Plan - per above, working on placement Time Spent With Patient Total time spent: 25 Subjective Date Seen: 02/28/22 Interval history: No acute events overnight. Fidelia is feeling well this morning, enjoys her morning coffee. Besides mild hip pain (declines pain medication or other interventions), she has no complaints for me. Exam Narrative: Exam Narrative: GEN: Alert and pleasant, sitting comfortably in bedside chair HEENT: Normal external ears, EOMIs bilaterally, no scleral icterus CV: RRR, No concerning murmurs, rubs, or gallops R: LCTA bilaterally without concerning wheezing, air movement adequate Ext: wwp, no concerning edema Skin: No concerning skin lesions or rashes on exposed skin Neuro: Nonfocal Psych: Appropriate per chronic conditions Const: Vital Signs, click to edit/add: Vital Signs - 24 hr 02/27/22 06:00 02/27/22 07:00 02/27/22 07:00 Temperature 98.5 F Pulse Rate [Left B rachial] 61 61 Respiratory Rate 18 14 14 Blood Pressure [Le ft Arm] 136/80 Blood Pressure [Ri ght Arm] Pulse Oximetry 94 Oxygen Delivery Me thod Room Air 02/27/22 11:00 02/27/22 15:00 02/27/22 15:00 Temperature 98.6 F 98.7 F Pulse Rate [Left B rachial] 58 L 64 64 Respiratory Rate 12 16 16 Blood Pressure [Le ft Arm] 114/63 Blood Pressure [Ri ght Arm] 118/55 L Pulse Oximetry 96 96 Oxygen Delivery Me thod Room Air Room Air 02/27/22 19:09 02/27/22 23:00 02/27/22 23:00 Temperature 99.1 F 98.7 F Pulse Rate [Left B rachial] 62 77 77 Respiratory Rate 16 16 16 Blood Pressure [Le ft Arm] 119/73 Blood Pressure [Ri ght Arm] 120/80 Pulse Oximetry 95 95 Oxygen Delivery Me thod Room Air Room Air 02/27/22 23:30 02/28/22 02:25 Temperature Pulse Rate [Left B rachial] Respiratory Rate 16 16 Blood Pressure [Le ft Arm] Blood Pressure [Ri ght Arm] Pulse Oximetry Oxygen Delivery Me thod
--- NOTE | 2022-02-28 05:46 | PC.NURSE ---
Pt pleasant and cooperative. VS unremarkable. Up A1 w/ Walker. Incontinent of urine
[2022-02-28] MEDS: POTASSIUM CHLORIDE 10 MEQ CAPSULE ER 20 MEQ PO ×2 (07:59→16:23)
[2022-02-28] MEDS: ASPIRIN 81 MG TABLET EC PO (08:00)
[2022-02-28] MEDS: VENLAFAXINE ER 75 MG CAPSULE PO (08:00)
[2022-02-28] MEDS: DONEPEZIL 10 MG TABLET PO (08:00)
[2022-02-28] MEDS: ROSUVASTATIN CALCIUM 10 MG TABLET 40 MG PO (08:00)
[2022-02-28] MEDS: GABAPENTIN 100 MG CAPSULE PO ×3 (08:03→20:18)
--- NOTE | 2022-02-28 13:24 | PC.SOCIAL ---
[phone] feels like they can accept pt. but the room is still filled with another resident's belongings due to recent . MICHI Santoyo at the [facility] may stop in tomorrow for a face to face assessment of pt. but will let social work know when the room is available and which day they could likely accept. Updated pt.'s family that it looked good for acceptance at the [facility] memory care [place] based on when the room is ready.
--- NOTE | 2022-02-28 15:04 | PC.NURSE ---
Pt pleasant and cooperative with all cares. Swallows pills without issue. Feeds independently. Appetite excellent. Incontinent of urine. Frequent repetitive questions; accepts answers with complement. Up with SBA; walker confuses pt at times but will attempt to please chart writer.
[2022-02-28] MEDS: DOCUSATE SODIUM 100 MG CAPSULE PO (16:24)
[2022-02-28] MEDS: QUETIAPINE 25 MG TABLET PO (20:18)
[2022-03-01] VITALS (9 sets, daily range): BP systolic 112–158; BP diastolic 65–84; PULSE 64–88; RESP 16–20; TEMP 36.7–36.8; O2SAT 94–96
--- NOTE | 2022-03-01 05:02 | PC.NURSE ---
[id number] Pt slept well, changed brief and repositioned prn. denied pain.
[2022-03-01 07:25] LABS: Chloride* 105 mmol/L (96-114); Potassium* 3.7 mmol/L (3.6-5.1); Sodium* 137 mmol/L (135-149)
[2022-03-01 07:27] LABS: Creatinine* 0.7 mg/dL (0.5-1.5); Est. Creatinine Clearance* 36.16; Estimated Glomerular Filt Rate 85 ml/min
[2022-03-01 07:28] LABS: Blood Urea Nitrogen* 7 mg/dL (7-30); Carbon Dioxide* 28 mmol/L (20-32); Glucose* 86 mg/dL (60-115)
[2022-03-01] MEDS: ASPIRIN 81 MG TABLET EC PO (09:21)
[2022-03-01] MEDS: GABAPENTIN 100 MG CAPSULE PO ×3 (09:21→20:30)
[2022-03-01] MEDS: DONEPEZIL 10 MG TABLET PO (09:21)
[2022-03-01] MEDS: VENLAFAXINE ER 75 MG CAPSULE PO (09:21)
[2022-03-01] MEDS: ROSUVASTATIN CALCIUM 10 MG TABLET 40 MG PO (09:21)
[2022-03-01] MEDS: POTASSIUM CHLORIDE 10 MEQ CAPSULE ER 20 MEQ PO ×2 (09:21→17:46)
--- NOTE | 2022-03-01 09:55 | PM.IMPN1 ---
Progress Note: A&P Assessment and plan (1) Alzheimer's dementia with psychotic disturbance: Problem details: Advanced. Family no longer able to safely care for her in their home. Status: Acute Assessment and Plan: - appreciate input from SW, assisting with discharge planning (2) Urinary tract infection: Problem details: Uncomplicated E Coli UTI on admission, completed 3 day course of Cipro 02/25-. Status: Acute Plan - per above - chronic conditions are stable Time Spent With Patient Total time spent: 25 Subjective Date Seen: 03/01/22 Interval history: No acute events overnight. Fidelia is feeling well this morning, having breakfast. No concerns for me today. Exam Narrative: Exam Narrative: GEN: Alert and eating breakfast HEENT: Normal external ears, EOMIs bilaterally, no scleral icterus CV: RRR, No concerning murmurs, rubs, or gallops R: LCTA bilaterally without concerning wheezing, rales, or rhonchi Ext: wwp, no concerning edema Skin: No concerning skin lesions or rashes on exposed skin Neuro: Nonfocal Psych: Appropriate for chronic conditions Const: Vital Signs, click to edit/add: Vital Signs - 24 hr 02/28/22 11:00 02/28/22 15:00 02/28/22 15:00 Temperature 98.4 F 98.5 F Pulse Rate [Left B rachial] 57 L Pulse Rate [Right Pulse Oximeter] 65 65 Respiratory Rate 20 20 20 Blood Pressure [Ri ght Arm] 119/66 122/66 Pulse Oximetry 95 96 Oxygen Delivery Me thod Room Air Room Air 02/28/22 19:10 02/28/22 23:20 02/28/22 23:21 Temperature 98.6 F 98.6 F Pulse Rate [Left B rachial] Pulse Rate [Right Pulse Oximeter] 74 74 74 Respiratory Rate 16 16 16 Blood Pressure [Ri ght Arm] 124/61 120/78 Pulse Oximetry 96 96 Oxygen Delivery Me thod Room Air Room Air 03/01/22 00:28 03/01/22 03:07 03/01/22 05:51 Temperature Pulse Rate [Left B rachial] Pulse Rate [Right Pulse Oximeter] Respiratory Rate 16 16 16 Blood Pressure [Ri ght Arm] Pulse Oximetry Oxygen Delivery Me thod 03/01/22 07:00 03/01/22 07:00 Temperature 98.1 F Pulse Rate [Left B rachial] Pulse Rate [Right Pulse Oximeter] 88 88 Respiratory Rate 20 20 Blood Pressure [Ri ght Arm] 148/84 H Pulse Oximetry 96 Oxygen Delivery Me thod Room Air Labs Labs: Laboratory Results - last 24 hr 03/01/22 05:38 Sodium 137 Potassium 3.7 Chloride 105 Carbon Dioxide 28 BUN 7 Creatinine 0.7 Estimated Creat Clear 36.16 Estimated GFR 85 Glucose 86 Calcium 8.0 L
--- NOTE | 2022-03-01 14:04 | PC.NURSE ---
End of Shift Note: Patient has bee pleasantly confused today. She has been up to the chair for meals. She is able to feed herself. At times she is inc. unsure if she knows enough to call to get help to get to the bathroom. No complaints of pain. Will continue to monitor until the next shift.
[2022-03-01] MEDS: QUETIAPINE 25 MG TABLET PO (20:30)
--- NOTE | 2022-03-01 21:41 | PC.NURSE ---
Shift note [id number] Pt. is pleasantly confused. Pt. up to the chair for meals and able to feed herself.?Pt. denies pain, N/V/SOB. No complaints of pain. VSS.
[2022-03-02] VITALS (8 sets, daily range): BP systolic 116–156; BP diastolic 67–79; PULSE 61–81; RESP 16–20; TEMP 36.6–37.1; O2SAT 91–97
--- NOTE | 2022-03-02 07:01 | PC.NURSE ---
Shift note: No complains overnight, pt rested during this shift
[2022-03-02] MEDS: POTASSIUM CHLORIDE 10 MEQ CAPSULE ER 20 MEQ PO ×2 (08:50→18:01)
[2022-03-02] MEDS: DONEPEZIL 10 MG TABLET PO (08:50)
[2022-03-02] MEDS: CALCIUM CARBONATE 500 MG TABLET PO (08:50)
[2022-03-02] MEDS: ASPIRIN 81 MG TABLET EC PO (08:50)
[2022-03-02] MEDS: GABAPENTIN 100 MG CAPSULE PO ×3 (08:50→20:33)
[2022-03-02] MEDS: VENLAFAXINE ER 75 MG CAPSULE PO (08:50)
[2022-03-02] MEDS: ROSUVASTATIN CALCIUM 10 MG TABLET 40 MG PO (08:50)
--- NOTE | 2022-03-02 11:18 | PM.IMPN1 ---
Progress Note: A&P Assessment and plan (1) Alzheimer's dementia with psychotic disturbance: Problem details: Advanced. Family no longer able to safely care for her in their home. Status: Acute Assessment and Plan: - appreciate input from SW regarding placement (2) Urinary tract infection: Problem details: Uncomplicated E Coli UTI on admission, completed 3 day course of Cipro 02/25-. Status: Acute Plan - per above - continue home medications for chronic conditions - Teds and ASA for ppx Subjective Date Seen: 03/02/22 Interval history: No acute events overnight. No concerns from staff regarding patient. Fidelia states that she is feeling well, enjoying coffee, and has no concerns for me today. Exam Narrative: Exam Narrative: GEN: Alert and sitting comfortably in bedside chair HEENT: Normal external ears, EOMIs bilaterally CV: RRR, No concerning murmurs, rubs, or gallops R: LCTA bilaterally without concerning wheezing, rales, or rhonchi Ext: wwp, trace ankle edema Skin: No concerning skin lesions or rashes on exposed skin Psych: Memory loss is evident, baseline Const: Vital Signs, click to edit/add: Vital Signs - 24 hr 03/01/22 15:00 03/01/22 15:00 03/01/22 19:00 Temperature 98.3 F 98.0 F Pulse Rate [Right Pulse Oximeter] 71 66 68 Respiratory Rate 18 20 20 Blood Pressure [Ri ght Arm] 112/65 158/80 H Pulse Oximetry 95 95 Oxygen Delivery Me thod Room Air Room Air 03/01/22 23:00 03/01/22 23:30 03/02/22 03:00 Temperature Pulse Rate [Right Pulse Oximeter] 64 Respiratory Rate 16 16 16 Blood Pressure [Ri ght Arm] Pulse Oximetry 94 Oxygen Delivery Me thod Room Air 03/02/22 06:00 03/02/22 08:10 Temperature 98.1 F Pulse Rate [Right Pulse Oximeter] 61 Respiratory Rate 16 16 Blood Pressure [Ri ght Arm] 137/67 Pulse Oximetry 91 Oxygen Delivery Me thod Room Air
--- NOTE | 2022-03-02 12:47 | PC.SOCIAL ---
Late entry note from 03/01/21. Made phone call to Eri at the [facility] to follow up on admission information for pt. Left a voicemail asking for an update.
--- NOTE | 2022-03-02 14:46 | PC.SOCIAL ---
Discharge planning: Called [facility] and spoke with Yarelis who confirmed she expects to have a bed in memory care assisted living on . Yarelis states she will come to the hospital for the required face to face visit to assess pt tomorrow and will call the nurse in the morning with her arrival time. Called dtr who is aware and agrees with this plan. Dtr states she wants to be at the hospital when Yarelis does the assessment. Provided dtr with phone number to talk with Yarelis about the timing of her visit. Received call from pt's [employer] outpatient case manager Brooke [phone] who states she will contact [facility] to answer any questions they have about elderly waver. hot mill worker to follow up as needed.
--- NOTE | 2022-03-02 17:40 | PC.NURSE ---
Shift Summary: patient pleasant and cooperative, forgetful and has asked to leave several times today, redirected and staff take on frequent walks around unit. Denies pain or SOB. Has been continent throughout shift.
[2022-03-02] MEDS: QUETIAPINE 25 MG TABLET PO (20:33)
[2022-03-03] VITALS (8 sets, daily range): BP systolic 109–137; BP diastolic 70–78; PULSE 65–80; RESP 16–20; TEMP 36.6–37.1; O2SAT 91–98
--- NOTE | 2022-03-03 06:06 | PC.NURSE ---
END OF SHIFT NOTE: PT IS PLEASANTLY DEMENTED. AMBULATES WITH WALKER, GB, A1. FALL RISK; BED ALARM ON AND PT ROOM ACROSS FROM NURSE STATION. RESTFUL NIGHT VITALS. BRIEF CHANGED AND PT REPOSITIONED PRN.
[2022-03-03] MEDS: ROSUVASTATIN CALCIUM 10 MG TABLET 40 MG PO (08:40)
[2022-03-03] MEDS: ASPIRIN 81 MG TABLET EC PO (08:41)
[2022-03-03] MEDS: POTASSIUM CHLORIDE 10 MEQ CAPSULE ER 20 MEQ PO ×2 (08:41→17:34)
[2022-03-03] MEDS: GABAPENTIN 100 MG CAPSULE PO ×3 (08:41→21:39)
[2022-03-03] MEDS: VENLAFAXINE ER 75 MG CAPSULE PO (08:41)
[2022-03-03] MEDS: DONEPEZIL 10 MG TABLET PO (08:41)
[2022-03-03] MEDS: CALCIUM CARBONATE 500 MG TABLET PO (08:41)
--- NOTE | 2022-03-03 10:59 | PM.IMPN1 ---
Progress Note: A&P Assessment and plan (1) Alzheimer's dementia with psychotic disturbance: Problem details: Advanced. Family no longer able to safely care for her in their home. Status: Acute Assessment and Plan: - Patient is being assessed by memory care units, appreciate input from social work team (2) Urinary tract infection: Problem details: Uncomplicated E Coli UTI on admission, completed 3 day course of Cipro 02/25-. Status: Acute Assessment and Plan: - No concerns for recurrence Plan - per above - continue home medications for comorbidities as noted in problem list Subjective Date Seen: 03/03/22 Interval history: No acute events overnight. No concerns from staff. Fidelia is feeling well and has no concerns for me this morning. Her visited yesterday, and she enjoyed this very much. Exam Narrative: Exam Narrative: GEN: Alert, sitting comfortably in bedside chair CV: RRR, No concerning murmurs, rubs, or gallops R: LCTA bilaterally without concerning wheezing, rales, or rhonchi Ext: wwp, no concerning edema Skin: No concerning skin lesions or rashes on exposed skin Neuro: Nonfocal Psych: Short-term memory loss is evident, very pleasant with no agitation Const: Vital Signs, click to edit/add: Vital Signs - 24 hr 03/02/22 11:39 03/02/22 15:51 03/02/22 19:00 Temperature 98 F 98.8 F 98.0 F Pulse Rate [Right Pulse Oximeter] 81 78 68 Respiratory Rate 18 18 20 Blood Pressure [Le ft Arm] 132/69 Blood Pressure [Ri ght Arm] 116/71 156/79 H Pulse Oximetry 94 97 97 Oxygen Delivery Me thod Room Air Room Air Room Air 03/02/22 23:00 03/02/22 23:00 03/02/22 23:30 Temperature 98.0 F Pulse Rate [Right Pulse Oximeter] 68 68 Respiratory Rate 20 20 20 Blood Pressure [Le ft Arm] 132/69 Blood Pressure [Ri ght Arm] Pulse Oximetry 97 Oxygen Delivery Me thod Room Air 03/03/22 03:00 03/03/22 06:00 03/03/22 09:04 Temperature 98.7 F Pulse Rate [Right Pulse Oximeter] 65 Respiratory Rate 18 18 20 Blood Pressure [Le ft Arm] 129/76 Blood Pressure [Ri ght Arm] Pulse Oximetry 95 Oxygen Delivery Me thod Room Air Room Air
--- NOTE | 2022-03-03 17:07 | PC.NURSE ---
Shift Summary: Patient up in chair most of day, napping on and off. Denies pain or SOB. Tolerating regular diet. Cooperative with cares.
[2022-03-03] MEDS: QUETIAPINE 25 MG TABLET PO (21:39)
[2022-03-04] VITALS (7 sets, daily range): BP systolic 121–171; BP diastolic 63–85; PULSE 64–77; RESP 16–20; TEMP 36.7–36.9; O2SAT 94–96
--- NOTE | 2022-03-04 06:37 | PC.NURSE ---
END OF SHIFT NOTE: PT PLEASANT AND COOPERATIVE. ON AND OFF CONFUSION; HX OF ADVANCED DEMENTIA. RESTFUL NIGHT VITALS. AMBULATES TO THE BATHROOM WITH WALKER, GB, SBA. INCONTINENT OF URINE. CONTINENT OF SMALL FORMED BM. VSS ON RA; AFEBRILE. PT DENIES CP, SOB, N/V. PT VERY CONFUSED THIS MORNING.
[2022-03-04] MEDS: POTASSIUM CHLORIDE 10 MEQ CAPSULE ER 20 MEQ PO ×2 (08:54→17:39)
[2022-03-04] MEDS: GABAPENTIN 100 MG CAPSULE PO ×3 (08:54→20:03)
[2022-03-04] MEDS: ASPIRIN 81 MG TABLET EC PO (08:54)
[2022-03-04] MEDS: ROSUVASTATIN CALCIUM 10 MG TABLET 40 MG PO (08:54)
[2022-03-04] MEDS: CALCIUM CARBONATE 500 MG TABLET PO (08:54)
[2022-03-04] MEDS: DONEPEZIL 10 MG TABLET PO (08:54)
[2022-03-04] MEDS: VENLAFAXINE ER 75 MG CAPSULE PO (08:55)
--- NOTE | 2022-03-04 15:13 | P.IMPN_ITS ---
Progress Note: A&P Assessment and plan (1) Alzheimer's dementia with psychotic disturbance: Problem details: Advanced. Family no longer able to safely care for her in their home. Status: Acute Assessment and Plan: 1. Continue to await safe placement options for her. It is possible there may be [facility] her at the [facility] this week sometime. (2) Urinary tract infection: Problem details: Uncomplicated E Coli UTI on admission, completed 3 day course of Cipro 02/25-. Status: Acute Assessment and Plan: 1. Will recheck urinalysis. (3) Hypokalemia: Status: Acute Assessment and Plan: 1. Recheck serum potassium tomorrow morning. Time Spent With Patient Total time spent: 30 minutes Subjective Time Seen by Provider: 13:00 Date Seen: 03/04/22 Interval history: Hospital day 9. Generally stable and doing well. No concerns from patient, family, or staff. Patient interacting with staff appropriately. No concern for behavioral dyscontrol. Adequate oral intake without nausea, vomiting, dyspepsia. Tolerating increased activities without chest heaviness, pressure, tightness, or pain. Also denies dyspnea at rest, paroxysmal nocturnal dyspnea, orthopnea. Denies syncope or near-syncope. Denies orthostasis. Ambulates chatterjee with standby assist, gait belt, and use of roller walker. Requires verbal cues. Does not recognize her own room in the hospital. Exam Narrative: Exam Narrative: Alert, oriented to self only, not to place, time, or situation. Forgot that her visited yesterday. Earlier today she states that she forgot who she was, she was not sure she was , was not sure if she had children, and these thoughts perplexed her. Neck is supple. Lungs are clear to auscultation. Heart tones with regular rhythm. Abdomen benign. Ambulates the halls with standby assist, gait belt, and roller walker. Able to feed herself. Does need cuing. Trace bilateral lower extremity edema. Skin is warm, dry, intact. Const: Vital Signs, click to edit/add: Vital Signs - 24 hr 03/03/22 15:20 03/03/22 21:00 03/03/22 23:00 Temperature 98.4 F 98.2 F Pulse Rate [Right Pulse Oximeter] 78 80 Respiratory Rate 18 20 18 Blood Pressure [Le ft Arm] 109/70 124/75 Pulse Oximetry 98 97 Oxygen Delivery Me thod Room Air Room Air 03/03/22 23:30 03/04/22 03:00 03/04/22 06:00 Temperature Pulse Rate [Right Pulse Oximeter] Respiratory Rate 18 20 20 Blood Pressure [Le ft Arm] Pulse Oximetry Oxygen Delivery Me thod 03/04/22 09:48 03/04/22 11:54 Temperature 98.1 F 98.5 F Pulse Rate [Right Pulse Oximeter] 67 64 Respiratory Rate 16 18 Blood Pressure [Le ft Arm] 171/85 H 126/74 Pulse Oximetry 95 96 Oxygen Delivery Me thod Room Air Room Air Documenting provider has reviewed patient's vital signs: yes
--- NOTE | 2022-03-04 17:05 | PC.NURSE ---
Addendum entered by Jessica Diaz RN 03/04/22 18:20: Patient had tub bath this evening, under her right breast is bright red, placed disposable dry washcloths between skin folds at this time. Original Note: Shift Summary: Patient increased confusion this morning, has since improved. Family here for visit today. Tolerating regular diet with good appetite. Up walking in halls with staff.
[2022-03-04 19:11] LABS: Appearance Urine Clear (Clear); Bilirubin Urine Negative (Negative); Blood Urine Negative (Negative); Color Urine Yellow (Yellow); Glucose Urine Negative (Negative); Ketones Urine Negative (Negative); Leukocyte Esterase Urine Negative (Negative); Nitrite Urine Negative (Negative); Protein Urine Negative (Negative)
[2022-03-04] MEDS: QUETIAPINE 25 MG TABLET PO (20:03)
[2022-03-05] VITALS (8 sets, daily range): BP systolic 143–153; BP diastolic 76–83; PULSE 66–73; RESP 14–16; TEMP 36.8–37.1; O2SAT 93–98
--- NOTE | 2022-03-05 05:15 | PC.NURSE ---
END OF SHIFT NOTE: PT IS PLEASANTLY DEMENTED. AMBULATES WITH WALKER, GB, SBA. PT INCONTINENT OF URINE NOC. BRIEF CHANGES PRN. RESTFUL NIGHT VITALS IN PLACE. UNEVENTFUL NIGHT.
[2022-03-05] MEDS: POTASSIUM CHLORIDE 10 MEQ CAPSULE ER 20 MEQ PO ×2 (07:43→18:45)
[2022-03-05] MEDS: VENLAFAXINE ER 75 MG CAPSULE PO (09:30)
[2022-03-05] MEDS: ASPIRIN 81 MG TABLET EC PO (09:30)
[2022-03-05] MEDS: DONEPEZIL 10 MG TABLET PO (09:30)
[2022-03-05] MEDS: CALCIUM CARBONATE 500 MG TABLET PO (09:30)
[2022-03-05] MEDS: GABAPENTIN 100 MG CAPSULE PO ×3 (09:30→20:38)
[2022-03-05] MEDS: ROSUVASTATIN CALCIUM 10 MG TABLET 40 MG PO (09:47)
--- NOTE | 2022-03-05 09:56 | NUTR.NU ---
RDN with LOS note, LOS day 10. Patient admitted for Alzheimer's dementia with psychotic disturbance and needing placement. Current diet is Regular, with meal intakes mainly 100% which are adequate. Current weight 185.5 lbs; height 64 inches; BMI is obese at 31.8 kg/m2. Patient is not appropriate to visit due to hx of dementia. No nutrition interventions at this time with adequate meal intakes and stable weight. RDN will continue to monitor and follow-up prn.
--- NOTE | 2022-03-05 15:09 | PM.IMPN1 ---
Progress Note: A&P Assessment and plan (1) Alzheimer's dementia with psychotic disturbance: Problem details: Advanced. Family no longer able to safely care for her in their home. Status: Acute (2) Urinary tract infection: Problem details: Uncomplicated E Coli UTI on admission, completed 3 day course of Cipro 02/25-. Status: Acute (3) Hypokalemia: Status: Acute Plan 1. Continue to support patient while we continue to search for and establish a safe discharge disposition plan for her. 2. Patient's family has been updated and agree. 3. Patient agreeable as well. Time Spent With Patient Total time spent: 20 minutes Subjective Time Seen by Provider: 08:00 Date Seen: 03/05/22 Interval history: Hospital day 10. Generally stable and doing well per nursing staff. No concerns from patient, family, or staff. Patient asks me to help her get some coffee and cream. Patient interacting with staff appropriately. Adequate oral intake without nausea, vomiting, dyspepsia. Tolerating activities, including walks in the hallway, without chest heaviness, pressure, tightness, or pain. Also denies dyspnea at rest, paroxysmal nocturnal dyspnea, orthopnea. Denies syncope or near-syncope. Denies orthostasis. Ambulates chatterjee with standby assist, gait belt, and use of roller walker. Requires verbal cues for various activities. Does not recognize her own room in the hospital when walking by it. Exam Narrative: Exam Narrative: Alert, oriented to self only. Not oriented to place, time, situation. Friendly, cooperative, talkative, even gracious. Mood and affect are congruent. Ambulating halls with standby assist, gait belt, and roller walker. Lungs are clear to auscultation. Heart tones with regular rhythm. Abdomen with active bowel sounds, soft, nontender. Extremities without edema. Skin is warm, dry, intact. No focal motor neurologic deficits. Const: Vital Signs, click to edit/add: Vital Signs - 24 hr 03/04/22 16:00 03/04/22 19:00 03/04/22 23:00 Temperature 98.3 F 98.3 F Pulse Rate [Right Pulse Oximeter] 73 77 69 Respiratory Rate 16 18 18 Blood Pressure [Le ft Arm] 121/63 138/77 Blood Pressure [Ri ght Arm] Pulse Oximetry 94 96 Oxygen Delivery Me thod Room Air Room Air 03/05/22 03:00 03/05/22 06:00 03/05/22 07:00 Temperature Pulse Rate [Right Pulse Oximeter] 67 Respiratory Rate 16 16 14 Blood Pressure [Le ft Arm] Blood Pressure [Ri ght Arm] Pulse Oximetry Oxygen Delivery Me thod 03/05/22 07:00 03/05/22 11:00 Temperature 98.3 F 98.7 F Pulse Rate [Right Pulse Oximeter] 67 66 Respiratory Rate 14 16 Blood Pressure [Le ft Arm] Blood Pressure [Ri ght Arm] 153/76 H 148/77 H Pulse Oximetry 93 95 Oxygen Delivery Me thod Room Air Room Air Documenting provider has reviewed patient's vital signs: yes Labs Labs: Laboratory Results - last 24 hr 03/04/22 03/05/22 19:00 06:11 Potassium 4.0 Urine Color Yellow Urine Appearance Clear Urine pH 7.0 Ur Specific [place] 1.020 Urine Protein Negative Urine Glucose (UA) Negative Urine Ketones Negative Urine Blood Negative Urine Nitrite Negative Urine Bilirubin Negative Urine Urobilinogen 2.0 A Ur Leukocyte Esterase Negative
--- NOTE | 2022-03-05 18:43 | PC.NURSE ---
End of Shift: Patient pleasant and cooperative. Patient vitally stable, lungs clear, BS WNL, No IV. Patient SBA, walker. Patient tolerating regular diet, uses toilet but also with wet brief at times. Patient had 1 mod formed BM. Patient neighbor and visited today. Patient denies pain.
[2022-03-05] MEDS: QUETIAPINE 25 MG TABLET PO (20:38)
[2022-03-06] VITALS (7 sets, daily range): BP systolic 111–150; BP diastolic 60–75; PULSE 60–83; RESP 16–18; TEMP 36.3–36.6; O2SAT 94–96
--- NOTE | 2022-03-06 06:48 | PC.NURSE ---
END OF SHIFT NOTE: PT IS PLEASANTLY CONFUSED. AMBULATES WITH WALKER, GB, SBA. PT BRIEF CHANGES PRN. PT SLEPT WELL. RESTFUL NIGHT VS. SHIFT WAS UNEVENTFUL.?
--- NOTE | 2022-03-06 07:57 | PC.SOCIAL ---
Discharge plan: Late Entry: On 03/06/22, receibed call from Yarelis at [facility] stating she will come to evaluate pt 03/07/22 at 8:45am for admit on . Zuleyka to contact daughter who has stated she wants to be present for this assessment. Met with at his request to update him on dischagre plan. He is pleased with plan for [facility] when bed is available. states he will provide transportation when discharged. upkeep worker to follow up as needed.
[2022-03-06] MEDS: GABAPENTIN 100 MG CAPSULE PO ×3 (10:19→21:32)
[2022-03-06] MEDS: ASPIRIN 81 MG TABLET EC PO (10:19)
[2022-03-06] MEDS: DONEPEZIL 10 MG TABLET PO (10:19)
[2022-03-06] MEDS: VENLAFAXINE ER 75 MG CAPSULE PO (10:19)
[2022-03-06] MEDS: CALCIUM CARBONATE 500 MG TABLET PO (10:19)
[2022-03-06] MEDS: ROSUVASTATIN CALCIUM 10 MG TABLET 40 MG PO (10:20)
[2022-03-06] MEDS: POTASSIUM CHLORIDE 10 MEQ CAPSULE ER 20 MEQ PO ×2 (10:20→17:28)
--- NOTE | 2022-03-06 12:17 | PC.SOCIAL ---
Pt. has been accepted to the [facility] [place]. Pt.'s daughter has been updated and will chart picker pt. at 10am.
--- NOTE | 2022-03-06 12:21 | PC.SOCIAL ---
Pt. has been accepted to the [facility] for . Pt.'s daughter has been updated and will transport.
--- NOTE | 2022-03-06 15:43 | P.IMPN_ITS ---
Progress Note: A&P Assessment and plan (1) Alzheimer's dementia with psychotic disturbance: Problem details: Advanced. Family no longer able to safely care for her in their home. Status: Acute (2) Urinary tract infection: Problem details: Uncomplicated E Coli UTI on admission, completed 3 day course of Cipro 02/25-. Status: Acute (3) Hypokalemia: Status: Acute Plan 1. Sales Floor Team Leader continues to work in the community to try to find a safe disposition for the patient. 2. Continue to support patient while she is here in the hospital as we wait for safe disposition plan. Time Spent With Patient Total time spent: 20 minutes Subjective Time Seen by Provider: 08:00 Date Seen: 03/06/22 Interval history: Hospital day 11. Generally stable and doing well per nursing staff. No concerns from patient, family, or staff. Patient interacting with staff appropriately. Adequate oral intake without nausea, vomiting, dyspepsia. Tolerating activities, including walks in the hallway, without chest heaviness, pressure, tightness, or pain. Also denies dyspnea at rest, paroxysmal nocturnal dyspnea, orthopnea. Denies syncope or near-syncope. Denies orthostasis. Ambulates chatterjee with standby assist, gait belt, and use of roller walker. Requires verbal cues for various activities. Does not recognize her own room in the hospital when walking by it. Exam Narrative: Exam Narrative: Alert, oriented to self, not to place, time, or situation. Pleasant, cooperative, gracious. Mood and affect are congruent. Lungs are clear to auscultation. Chest wall excursions are full. No CVA tenderness. Heart tones with regular rhythm, normal S1-S2. Abdomen with active bowel sounds, soft, nontender. Extremities without edema. Ambulates with gait belt and walker and standby assist. Const: Vital Signs, click to edit/add: Vital Signs - 24 hr 03/05/22 19:00 03/05/22 23:00 03/05/22 23:30 Temperature 98.2 F Pulse Rate [Right Pulse Oximeter] 68 Respiratory Rate 16 16 16 Blood Pressure [Le ft Arm] 149/83 H Pulse Oximetry 98 Oxygen Delivery Me thod Room Air 03/06/22 06:00 Temperature Pulse Rate [Right Pulse Oximeter] Respiratory Rate 16 Blood Pressure [Le ft Arm] Pulse Oximetry Oxygen Delivery Me thod Documenting provider has reviewed patient's vital signs: yes
[2022-03-06] MEDS: QUETIAPINE 25 MG TABLET PO (21:32)
[2022-03-07 05:42] VITALS: RESP 18
[2022-03-07 07:00] VITALS: BP 151/80; PULSE 68; RESP 18; TEMP 36.6; O2SAT 93
[2022-03-07] MEDS: GABAPENTIN 100 MG CAPSULE PO ×3 (08:21→21:56)
[2022-03-07] MEDS: VENLAFAXINE ER 75 MG CAPSULE PO (08:21)
[2022-03-07] MEDS: POTASSIUM CHLORIDE 10 MEQ CAPSULE ER 20 MEQ PO ×2 (08:21→18:27)
[2022-03-07] MEDS: ASPIRIN 81 MG TABLET EC PO (08:22)
[2022-03-07] MEDS: CALCIUM CARBONATE 500 MG TABLET PO (08:22)
[2022-03-07] MEDS: ROSUVASTATIN CALCIUM 10 MG TABLET 40 MG PO (08:23)
[2022-03-07] MEDS: DONEPEZIL 10 MG TABLET PO (08:24)
--- NOTE | 2022-03-07 10:38 | PM.IMPN1 ---
Progress Note: A&P Assessment and plan (1) Alzheimer's dementia with psychotic disturbance: Problem details: Advanced. Family no longer able to safely care for her in their home. Status: Acute Assessment and Plan: Awaiting completion of Medicare application and disposition for the patient. (2) Urinary tract infection: Problem details: Uncomplicated E Coli UTI on admission, completed 3 day course of Cipro 02/25-. Status: Acute Assessment and Plan: Asymptomatic now. (3) Hypokalemia: Status: Acute Assessment and Plan: Continue to monitor and supplement as needed. Time Spent With Patient Total time spent: 20 minutes Subjective Time Seen by Provider: 09:00 Date Seen: 03/07/22 Interval history: Hospital day 12. Doing well per nursing staff. No concerns from patient, family, or staff. Patient interacting with staff appropriately. Enjoys eating. Adequate oral intake without nausea, vomiting, dyspepsia. Tolerating activities, including walks in the hallway, without chest heaviness, pressure, tightness, or pain. Also denies dyspnea at rest, paroxysmal nocturnal dyspnea, orthopnea. Denies syncope or near-syncope. Denies orthostasis. Ambulates chatterjee with standby assist, gait belt, and use of roller walker. Requires verbal cues for various activities. Does not recognize her own room in the hospital when walking by it. Exam Narrative: Exam Narrative: Appears comfortable, no acute distress. Alert, oriented to self, not place, time, or situation. Pleasant and cooperative. Talkative. Mood and affect are congruent. Neck is supple. Midline trachea. Normal thyroid. No lymphadenopathy. No JVD, hepatojugular reflux, or carotid bruits. Lungs are clear to auscultation. No CVA tenderness. Heart tones with regular rhythm. Abdomen with active bowel sounds, soft, nontender. Extremities thought edema. Transfers with standby assist, gait belt, walker. Ambulate similarly. Const: Vital Signs, click to edit/add: Vital Signs - 24 hr 03/06/22 15:46 03/06/22 15:46 03/06/22 12:45 Temperature 97.4 F L 97.8 F Pulse Rate [Right Pulse Oximeter] 73 67 Respiratory Rate 18 18 Blood Pressure [Le ft Arm] 150/70 H 118/71 Pulse Oximetry 96 96 95 Oxygen Delivery Me thod Room Air Room Air Room Air 03/06/22 19:00 03/06/22 22:50 03/06/22 23:00 Temperature 98 F Pulse Rate [Right Pulse Oximeter] 76 83 Respiratory Rate 18 18 18 Blood Pressure [Le ft Arm] 143/75 H Pulse Oximetry 94 Oxygen Delivery Me thod Room Air 03/07/22 05:42 03/07/22 07:00 03/07/22 07:00 Temperature 98 F Pulse Rate [Right Pulse Oximeter] 68 68 Respiratory Rate 18 18 18 Blood Pressure [Le ft Arm] 151/80 H Pulse Oximetry 93 Oxygen Delivery Me thod Room Air Documenting provider has reviewed patient's vital signs: yes
[2022-03-07 11:00] VITALS: BP 131/79; PULSE 70; RESP 18; TEMP 36.6; O2SAT 94
[2022-03-07 15:00] VITALS: BP 133/64; PULSE 66; RESP 18; TEMP 36.7; O2SAT 95
--- NOTE | 2022-03-07 19:10 | PC.NURSE ---
Pleasant and cooperative throughout shift. SBA with walker and GB. incontinent/continent up to BR. Good appetite.
[2022-03-07 20:14] VITALS: BP 160/77; PULSE 65; RESP 18; TEMP 36.8; O2SAT 97
[2022-03-07] MEDS: QUETIAPINE 25 MG TABLET PO (21:56)
[2022-03-07 23:30] VITALS: RESP 18
[2022-03-08 05:42] VITALS: RESP 18
--- NOTE | 2022-03-08 05:43 | PC.NURSE ---
[id number]: Patient pleasant and cooperative. Rested well during noc. Denies pain. Orientated to self. Plans to D/C todayat 1000 to [facility]. Daughter will transport.
[2022-03-08 09:15] VITALS: BP 126/73; PULSE 62; RESP 16; TEMP 36.4; O2SAT 95
[2022-03-08] MEDS: DONEPEZIL 10 MG TABLET PO (09:17)
[2022-03-08] MEDS: CALCIUM CARBONATE 500 MG TABLET PO (09:17)
[2022-03-08] MEDS: GABAPENTIN 100 MG CAPSULE PO (09:17)
[2022-03-08] MEDS: ASPIRIN 81 MG TABLET EC PO (09:17)
[2022-03-08] MEDS: ROSUVASTATIN CALCIUM 10 MG TABLET 40 MG PO (09:17)
[2022-03-08] MEDS: VENLAFAXINE ER 75 MG CAPSULE PO (09:17)
[2022-03-08] MEDS: POTASSIUM CHLORIDE 10 MEQ CAPSULE ER 20 MEQ PO (09:21)
[2022-03-08 10:30] VITALS: BP 123/74; PULSE 62; RESP 16; TEMP 36.4
--- NOTE | 2022-03-08 10:32 | PC.NURSE ---
Patient was discharged to [facility] with daughter and . No PIV in place. All belongings sent with family. Faxed information to Yarelis at [facility]. VSS. Lung sounds clear. Lower extremities have +2 edema. SBA for mobility. Alert, confused, pleasant. Patients own walker went with family to deliver to [facility].
--- NOTE | 2022-03-12 11:37 | PM.DS1 ---
DS: Providers Provider Time Seen by Provider: 07:30 Date Seen: 03/08/22 Date of admission: 02/24/22 16:01 Primary care physician: Not a Local Provider Admitting Clinician: Cory Ramachandran MD Consults: 02/24/22 22:30 Consult to Physical Therapy [CONS] Routine Comment: Reason(s) for PT Consult:: Evaluate and Treat Any Restrictions?:: No Restrictions Consult to Corn Grower [CONS] Routine Comment: Reason for Consult:: Discharge Planning Needs 02/24/22 22:32 Consult to Occupational Therapy [CONS] Routine Comment: Reason(s) for OT Consult:: Evaluate and Treat Any Restrictions?:: No Restrictions Attending Physician on discharge: Cory Ramachandran MD Date of Discharge: 03/08/22 DS: Diagnosis Discharge Diagnosis (1) Alzheimer's dementia with psychotic disturbance: Status: Acute Problem details: Advanced. Family no longer able to safely care for her in their home. (2) Dementia: Status: Acute (3) Weight loss: Status: Acute (4) Alcohol abuse: Status: Acute Problem details: A shot of [place] Xray Imatekey nightly (5) Hypokalemia: Status: Acute (6) Urinary incontinence: Status: Chronic (7) Bowel incontinence: Status: Chronic DS: Summary Hospital Course Hospital Course: Fidelia Vyas is a 86 year old woman who resides in her home with her .? Her is her primary caregiver. Patient has advanced dementia of the Alzheimer's type.? Has been progressing over the last 5 years.? In the past few months her behaviors have become increasingly difficult for family to be able to address.? This morning for instance she eloped outside of her home with no clothing on except her depends diaper on plus a coat in hand stating that she wanted to go back home.? Her was eventually able to talk her into going back into their home.? She has more episodes of confusion and disorientation.? Has had evolving weight loss over the last few months, 5 lb since 31 January, 20 lb since April 2021, according to .? Intermittently describes visual hallucinations, such as stating that there are people outside of the home when there are not. Patient was assessed at the [facility] Emergency Department 3 days ago and diagnosed with a urinary tract infection.? She was started on ciprofloxacin.? In the course of that assessment the hospital pediatric social worker staff became involved trying to help family with placement options.? Family has been trying to achieve placement outside of the home in a retirement facility or assisted living memory care type setting for a while but they have been unsuccessful.? The patient's indicates he is no longer able to keep up with her.? He indicates that his own health is starting to suffer because of his efforts to try to help his . Throughout the period of time that patient was in the hospital our pediatric social worker staff were engage in efforts to find an appropriate safe living situation for her. Eventually we were able to do so in the she is discharged. Otherwise she did well throughout the hospitalization in the structured setting of the hospital. She requires frequent attention and redirection. She is impulsive. Nevertheless she is friendly and cooperative throughout the time that she is here. Status at Discharge Cognitive/behavioral status at discharge: She requires frequent attention and redirection. She is impulsive. Nevertheless she is friendly and cooperative throughout the time that she is here. Functional status at discharge: uses cane/walker Overall status at discharge: patient is back to baseline Time Spent with Patient Time attestation: Total time spent providing and/or coordinating discharge services: Exam Narrative: Exam Narrative: Appears comfortable, no acute distress.? Alert, oriented to self, not place, time, or situation. Pleasant and cooperative.? Talkative.? Mood and affect are congruent.? Neck is supple.? Midline trachea.? Normal thyroid.? No lymphadenopathy.? No JVD, hepatojugular reflux, or carotid bruits. Lungs are clear to auscultation. No CVA tenderness.? Heart tones with regular rhythm.? Abdomen with active bowel sounds, soft, nontender.? Extremities thought edema.? Transfers with standby assist, gait belt, walker.? Ambulate similarly. Const: Documenting provider has reviewed patient's vital signs: yes Discharge Plan Discharge Disposition: Xfer Other Date of Admission: 02/24/22 16:01 Attending Provider on Discharge: Cory Ramachandran Primary Care Provider: Provider,Not a Local Condition: Stable Anticipated Discharge Date/Time: 03/08/22 10:00 Discharge Medications: New potassium chloride 10 mEq Capsule, Extended Release 20 meq PO BIDWM Qty: 60 0RF docusate sodium 100 mg Capsule 100 mg PO BID 30 Days Qty: 60 0RF gabapentin 100 mg Capsule 100 mg PO TID 30 Days Qty: 90 0RF Continued cholecalciferol (vitamin D3) [Vitamin D3] 25 mcg (1,000 unit) tablet 25 mcg PO DAILY Label Comments: TAKE 1 TABLET BY MOUTH DAILY amlodipine 5 mg tablet 2.5 mg PO DAILY aspirin 81 mg tablet,delayed release (DR/EC) 81 mg PO DAILY donepezil 10 mg tablet 10 mg PO DAILY Label Comments: TAKE 1 TABLET BY MOUTH DAILY quetiapine 25 mg tablet 25 mg PO DAILY PRN Label Comments: TAKE 1/2 TO 1 TABLET BY MOUTH DAILY NEEDED FOR AGITATION rosuvastatin 40 mg tablet 40 mg PO DAILY triamterene-hydrochlorothiazid 37.5-25 mg tablet 0.5 tab PO DAILY Label Comments: TAKE 1/2 TABLET BY MOUTH DAILY venlafaxine 75 mg capsule,extended release 24hr 75 mg PO DAILY nitroglycerin 0.4 mg tablet, sublingual 0.4 mg sublingual Q5-15M PRN Rx Instructions: do not exceed 3 doses per episode Discontinued ciprofloxacin HCl [Cipro] 250 mg tablet 250 mg PO BID Qty: 14 0RF Discharge Orders: Discharge Order (Routine); Ordered 03/08/22 Ordered By: Cory Ramachandran Additional Instructions: 1. Follow-up with primary care physician, or establish new physician, in 5-10 days. Activity Level: Activity as Tolerated and Use Walker Discharge Diet: Regular Follow Up Appointments: Provider,Not a Local [Primary Care Provider] - Forms: MeetLinkshare Info Instructions Hospital Course: Fidelia Vyas is a 86 year old woman who resides in her home with her .? Her is her primary caregiver. Patient has advanced dementia of the Alzheimer's type.? Has been progressing over the last 5 years.? In the past few months her behaviors have become increasingly difficult for family to be able to address.? This morning for instance she eloped outside of her home with no clothing on except her depends diaper on plus a coat in hand stating that she wanted to go back home.? Her was eventually able to talk her into going back into their home.? She has more episodes of confusion and disorientation.? Has had evolving weight loss over the last few months, 5 lb since 31 January, 20 lb since April 2021, according to .? Intermittently describes visual hallucinations, such as stating that there are people outside of the home when there are not. Patient was assessed at the [facility] Emergency Department 3 days ago and diagnosed with a urinary tract infection.? She was started on ciprofloxacin.? In the course of that assessment the hospital pediatric social worker staff became involved trying to help family with placement options.? Family has been trying to achieve placement outside of the home in a retirement facility or assisted living memory care type setting for a while but they have been unsuccessful.? The patient's indicates he is no longer able to keep up with her.? He indicates that his own health is starting to suffer because of his efforts to try to help his . Throughout the period of time that patient was in the hospital our pediatric social worker staff were engage in efforts to find an appropriate safe living situation for her. Eventually we were able to do so in the she is discharged. Otherwise she did well throughout the hospitalization in the structured setting of the hospital. She requires frequent attention and redirection. She is impulsive. Nevertheless she is friendly and cooperative throughout the time that she is here.
== END 2022-03-08 10:38 | disposition other institution (70) ==
LOC: ED 15:44 → MEDSURG 16:02
PROVIDERS: Family Medicine; Admitting Provider Internal Medicine; Emergency Provider Family Medicine; Visit Provider Internal Medicine
DX: N39.0 Urinary tract infection, site not specified (principal); F02.82 Dementia in other diseases classified elsewhere, unspecified severity, with psychotic disturbance; G30.9 Alzheimer's disease, unspecified; B96.20 Unspecified Escherichia coli [E. coli] as the cause of diseases classified elsewhere; R63.4 Abnormal weight loss; Z68.31 Body mass index [BMI] 31.0-31.9, adult; F10.10 Alcohol abuse, uncomplicated; E87.6 Hypokalemia; R32 Unspecified urinary incontinence; R15.9 Full incontinence of feces; F44.89 Other dissociative and conversion disorders; R44.1 Visual hallucinations; Z79.82 Long term (current) use of aspirin; M81.0 Age-related osteoporosis without current pathological fracture
CPT/HCPCS: 36415; 71045; 80048; 80053; 81003; 83605; 83735; 84132; 84295; 85025; 87426; 87502; 87634; 87635; 93971; 97161; 97165; 99283; 99284; A9270; G0378; G0379

== ENCOUNTER 2023-12-10 14:21 | Outpatient (REF) | payer OTHER, BC, SELFPAY ==
--- OUTSIDE RECORDS SUMMARY | 2023-12-10 14:30 | XMS_ITS | Clinical Summary ---
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 Tear film insufficiency, unspecified 10/23/2006 Family History Medical History Relation Name Comments Hypertension Mother Hypertension Sister Relation Name Status Comments Mother Sister Social History Tobacco Use Types Packs/Day Years Used Date Smoking Tobacco: Never Alcohol Use Standard Drinks/Week Comments Not Asked 0 (1 standard drink = 0.6 oz pur e alcohol) Sex and Gender Information Value Date Recorded Sex Assigned at Not on file Gender Identity Not on file Sexual Orientation Not on file Obstetrics History Last Filed [...] and wt on same day) for age 18+ 11/24/1953 Tetanus booster 1957 Zoster (shingles) series for age 50+ (1 of 2) 11/24/1987 DEXA/DXA scan for age 65+ 2002 Pneumococcal series for age 65+ (1 of 1 - PCV) 2002 COVID-19 vaccine series ( season) 2023 03/24/2021, 07/09/2020, 06/18/2020 Influenza for age 65+ 01/12/2024 Care Teams Milking Machine Mechanic Relationship Specialty [place] [address] [place] [address] PCP - General 09/07/06
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
--- OUTSIDE RECORDS SUMMARY | 2023-12-10 14:30 | XMS_ITS | Encounter Summary ---
Author Organization [facility] Address [address] [place] [address] Care Team Providers Care Car Sealer Name Role Phone Justin Arora PA-C Primary Care Provider [phone] Reason for Visit * Reason Comments Prior Authorization For Medication Queti apine Fumarate 25MG tablets Encounter Details Date Type Department Care Team (Late st Contact Info) Description 07/02/2023 Telephone [place] [id number] [facility] [address] [place] [address] Justin Arora PA-C [address] [place] [address] Prior Authorization For Medication (Quetiapine Fumarate 25MG tablets) Social History Tobacco Use Types Packs/Day Years [...] on file Sexual Orientation Not on file documented as of this encounter Nursing Notes * Meagan Rincon - 07/02/2023 4:16 PM CST ePA T DESIGNER documented in this encounter Plan of Treatment Not on file documented as of this encounter Visit Diagnoses Not on filedocumented in this encounter Care Teams Car Sealer Relationship Specialty Start Date End Date Justin Arora PA-C [address] [place] [address] PCP - General Physician System Designer 07/24/21 Erin Meza [facility] Fatou Haile [facility] [phone] Hand Crown Pouncer 10/24/17 Fatou Haile Hand Crown Pouncer 06/03/18 mauri garcia [facility] Nurse Staff Community Health 05/28/19 documented as of this encounter
--- OUTSIDE RECORDS SUMMARY | 2023-12-10 14:30 | XMS_ITS | Encounter Summary ---
Author Organization [facility] Address [address] [facility] [place] [address] Care Team Providers Care Creative Services Writer Name Role Phone Shawn Nice MD Primary Care Provider Unavailab Les Reeves MD Primary Care Provider [facility], [facility] Primary Care Provide r None Primary Care Provider UnavailAllyson Feliciano Primary Care Provider [phone] Guillermo Martinez MD Unavailable [phone] Encounter Details Date Type Department Care Team (Late st Contact Info) Description 09/15/2012 Office Visit-[address] [place] [address] [place] [address] [place] [address] [address] [place] [address] Social History Tobacco Use Types Packs/Day Years Used Date Smoking Tobacco: Never Assessed Sex and Gender Information Value Date Recorded Sex Assigned at Not on file Gender Identity Not on file Sexual Orientation Not on file documented as of this encounter Progress Notes * Guillermo Martinez MD - 09/17/2012 4:52 PM CDT Progress Note Created by: Guillermo Martinez M.D. DATE: 09/15/2012 FIDELIA LUNDBERG DATE OF : 1935 AGE: [age] years old Referring Physician: SHAWN NICE Referring Clinic: [facility] CURRENT DIAGNOSES 1. - Hyperlipidemia, 272.4 2. Hypertension-Essential (Benign), 401.1 3. - CAD, 414.00 4. Ventricular tachycardia, 427.1 5. Status post-PTCA, V45.82 6. ND-Acute Anterior, 410.11 7. Obesity-(<LT>100 ), 278.00 ALLERGIES [...] OF PRESENT ILLNESS Thank you for sending Fidelia Lundberg back. As you recall, she had a heart attack 30 years ago beforewe ever met her, and then in 2002 she had an anterior infarct with V fib arrest, and a stent was placed to her LAD. Her obtuse marginal was totally occluded, which was no doubt her early heart attack. She actually had a follow up angiogram in 2005 and 2008 because of some symptoms but also because o f a stress test which turned out to be a false positive. Her anatomy was stable with moderate disease. We recommended medical therapy. She reports no anginal symptoms since that time. It is going to be difficult to know how to progress to follow her arteries. Her coronaries are heavily calcified soa CT coronary angiogram is not an ideal [...] potassium level as quite low. It turns out these two are related. She has lost more than 30 pounds compared to when we first met her. Most of the weight loss was this past year. She has been dieting. As a result her blood pressure is running low and in fact her standing blood pressure today was 88 systolic. No doubt that is the explanation for her dizziness and her fatigue. I have stopped [...] would stop the amlodipine next. She is actuallyto be congratulated. This just proves that diet and exercise can obviate the need for some medications. Her current labs are as follows. While her potassium was 3.1, it was repeated today and today sodium was 138, potassium 3.9, BUN 15, creatinine 1.0, and glucose 93. Triglycerides were 127, HDL 51, LDL 68, total cholesterol 145, ALT 23. She is feeling well. She does note a little bit of tightness inher hips. I do not know if that is simply arthritis or muscle. I do not think it is related to the cholesterol pill since it is not present very often and she is on the same medicines as before, but we should keep that in the back of our mind. Lastly, we could consider doing an FRAN to make sure it is not claudication, but it does not sound like that. PAST HISTORY Past Medical Illnesses: hyperlipidemia, hypertension, obesity, cellulitis, benign breast bx, lung nodule (followed by CT per pmd), varicose vein, GERD Past Cardiac Illnesses: coronary artery disease, S/P myocardial infarction-anterior, VF arrest with ND, NSVT immed after ND, Lat ND 1980, Ant ND (Vfib) 10-13 Cath-PTCA LAD(too tortuous for stent), 100%Lcx-OM, 50-60% RCA, PAC, PAT-non sust, Cath 11-18 Lma-nl, Lad 50%(-tortuous couldn't do stent previously(nl FFR), Diag 50%, Lcx small (OM chronic occlusion), RCA 50%, Nl EF [...] No culprit lesions for new ischemia on this study,Continued medical therapy Left Ventricular Ejection Fraction: EF 35-40% by cath 10/13, EF 35-40% by cath 11/12, EF 35% by heart Cath 10/16,EF 55% by cath 11/18, EF 57% post stress 54% rest by nuc 11/18, EF 55% by cath November 2008 Nuclear Results: 11/18 Defect.-extensive anterior,apical+anteroseptal non-transmural ND in LAD wi/significant,mod.corina-infarct isch.Second defect.- extensive lateral ND in the CFX artery w/no reversible isch.Third [...] - lives with ; Place of - [place]; REVIEW OF SYSTEMS GENERAL weight loss of [...] stress test because they have been false positivein the past but we will certainly watch her symptoms. If we are not sure about the hip pain being a statin, we could consider a statin holiday for [...] on filedocumented in this encounter Care Teams Creative Services Writer Relationship Specialty Start Date End Date Shawn Nice MD PCP - General Family Practice 08/25/12 08/22/15 Les Fair MD PCP - General Family Practice 08/23/15 12/29/15 [facility] [address] [place] [address] PCP - General 12/30/15 10/15/16 None PCP - General 10/16/16 01/10/17 Allyson Pool PA [facility] [address] [place] [address] PCP - General 04/27/17 Guillermo Martinez MD [address] [facility] [address] [place] [id number] Cardiology 11/15/17 documented as of this encounter
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
--- OUTSIDE RECORDS SUMMARY | 2023-12-10 14:30 | XMS_ITS | Clinical Summary ---
Author Organization [place] Address [address] [place], [place] [address] [address] Care Team Providers Care Imaging Services Director Name Role Phone Allyson Pool Primary Care Provider [phone] Guillermo Martinez MD Unavailable [phone] Allergies Active Allergy Reactions Criticality Noted Date Comments Atorvastatin 09/16/2014 Muscle aches Morphine Nausea and Vomiting 09/16/2014 Medications Medication Sig Dispensed Refills Start Date End Date Status PARoxetine (PAXIL) 10 MG tablet 10 mg Active LABETALOL HCL PO Take 100 mg by mouth At Bedtime Active DONEPEZIL HCL PO Take 10 mg by mouth daily Active VITAMIN D, CHOLECALCIFEROL, PO Take 1,000 Units by mouth daily Active order for DMEIndications:Genera lized muscle weakness Equipment being ordered: Walker Wheels (E0155) and Walker (E0135) Treatment Diagnosis: Impaired gait stability. 1 each 05/04/2017 Active aspirin 81 MG tabletIndications:Cor onary artery disease involving wy[place]otte heart with other form of angina pectoris, unspecified vessel or lesion type (H24) Take 1 tablet (81 mg) by mouth daily 30 tablet 05/04/2017 Active labetalol (NORMODYNE) 100 MG tabletIndications:Hugo ign essential hypertension Take 1 tablet (100 mg) by mouth 2 times daily CORRECT SIMG (1/2 TAB) IN AM AND 100MG (1 TAB) IN PM 150 tablet 3 11/21/2017 Active nitroGLYcerin (NITROSTAT) 0.4 MG sublingual tabletIndications:Cor onary artery disease involving [place] coronary artery of wy[place]otte heart without angina pectoris Place 1 tablet (0.4 mg) under the tongue every 5 minutes as needed for chest pain 25 tablet 1 11/21/2017 Active amLODIPine (NORVASC) 2.5 MG tabletIndications:Hugo ign essential hypertension Take 1 tablet (2.5 mg) by mouth every evening 90 tablet 3 11/21/2017 Active rosuvastatin (CRESTOR) 40 MG tabletIndications:Mix ed hyperlipidemia Take 1 tablet (40 mg) by mouth daily 90 tablet 3 11/21/2017 Active Active Problems Problem Noted Date Diagnosed Date Numbness and tingling in both hands 05/02/2017 Acute myocardial infarction of other anterior wall, initial episode of care 10/11/2002 Overview: with VFib Arrest, SVT immediately after CT Hyperlipidemia Hypertension CAD (coronary artery disease) History of ventricular tachycardia Obesity History of acute lateral wall CT History of varicose veins Arrhythmia Overview: Pac, Pat GERD (gastroesophageal reflux disease) Family History Medical History Relation Comments Heart Failure Father Other - See Comments Mother Arterial st enosis C.A.D. Son w/ V fib arrest Relation Status Comments Father Mother Son Alive Social History Tobacco Use Types Packs/Day Years Used Date Smoking Tobacco: Never Smokeless Tobacco: Never Alcohol Use Standard Drinks/Week Comments Yes 0 (1 standard drink = 0.6 oz pur e alcohol) couple per week Sex and Gender Information Value Date Recorded Sex Assigned at Not on file Gender Identity Not on file Sexual Orientation Not on file Last Filed Vital Signs Vital Sign Reading Time Taken Comments Blood Pressure 140/70 11/21/2017 10:17 AM CDT Pulse 64 11/21/2017 10:17 AM CDT Temperature 36.8 ??C (98.3 ??F) 05/04/2017 2:42 PM CS T Respiratory Rate 18 05/04/2017 2:42 PM ACADEMIC SUPPORT CENTER DIRECTOR Oxygen Saturation 95% 05/04/2017 2:42 PM ACADEMIC SUPPORT CENTER DIRECTOR Inhaled Oxygen Concentration - - Weight 93.3 kg (205 lb 9.6 oz) 11/21/2017 10:17 AM CDT Height 163.8 cm (5' 4.5) 11/21/2017 10:17 AM CD T Body Mass Index 34.75 11/21/2017 10:17 AM CDT Plan of Treatment Not on file Advance Directives For more information, please contact: [phone] * Full Code (Latest Code Status on File) Date Activated Date Inactivated Comments 05/04/2017 1:24 PM * Full Code Date Activated Date Inactivated Comments 05/02/2017 10:28 PM 05/04/2017 1:24 PM Care Teams Imaging Services Director Relationship Specialty Start Date End Date Allyson Pool PA [facility] [address] [place] [address] PCP - General 04/27/17 Guillermo Martinez MD [address] [place] [phone] Cardiology 11/15/17
--- OUTSIDE RECORDS SUMMARY | 2023-12-10 14:30 | XMS_ITS | Encounter Summary ---
Author Organization [facility] Address [address] [facility] [place] [address] Care Team Providers Care Japanese Tutor Name Role Phone Alicia Nice MD Primary Care Provider Unavailab Les Reeves MD Primary Care Provider [facility], [facility] Primary Care Provide r None Primary Care Provider UnavailAllyson Feliciano Primary Care Provider [phone] Guillermo Martinez MD Unavailable [phone] Encounter Details Date Type Department Care Team (Late st Contact Info) Description 03/13/2013 Office Visit-[facility] Heart [address] [place] [phone] Jesús Almanza APRN CNC WOOD LATHE OPERATOR NO INFO AVAILABLE 03/01/2022 Social History Tobacco Use Types Packs/Day Years Used Date Smoking Tobacco: Never Assessed Sex and Gender Information Value Date Recorded Sex Assigned at Not on file Gender Identity Not on file Sexual Orientation Not on file documented as of this encounter Progress Notes * Jesús Almanza - 05/16/2013 6:36 AM CST Progress Note Created by: Jesús Almanza, N.P. DATE: 03/13/2013 WAQAR LUNDBERG DATE OF : 1935 AGE: [age] years old Referring Physician: ALICIA NICE Referring Clinic: [facility] CURRENT DIAGNOSES 1. - Hyperlipidemia, 272.4 2. Hypertension-Essential (Benign), 401.1 3. - CAD, 414.00 4. Ventricular tachycardia, 427.1 5. Status post-PTCA, V45.82 6. RI-Acute Anterior, 410.11 7. Obesity-(<LT>100 ), 278.00 ALLERGIES [...] In 2002, she had an anterior wall RI with a ventricularfibrillation arrest and an LAD stent was placed. [...] VF arrest with RI, NSVT immed after RI, Lat RI 1980, Ant RI (Vfib) 10-13 Cath-PTCA [...] of - [place]; REVIEW OF SYSTEMS GENERAL no change in [...] 106/58Sitting, Right arm, large cuff 120/60Retaken by [employer]SC[employer] MAINTENA[employer]CE [employer]/PA-[id number] 118/62Standing, Left arm, large cuff Pulse- 72.00/min. Weight- 217.60 lbs. Height- 63.25 BMI Measurement: SRL Global Error: [Microsoft][SRL Global SQL Exercise Teacher Weapons Engineer][SQL Exercise Teacher]Divide by zero error encountered. - 227[address] CONSTITUTIONAL cooperative anxious and hyperventilating intermittently SKIN [...] S4, Apical impulse not displaced, no murmurs, gallops or rubs detected. ABDOMEN abdomen soft, bowel sounds [...] seeing Waqar in follow-up. Jesús Almanza RN, [employer]-C, MSN documented in this encounter Plan of Treatment Not on file documented as of this encounter Visit Diagnoses Not on filedocumented in this encounter Care Teams Japanese Tutor Relationship Specialty Start Date End Date Alicia Nice MD PCP - General Family Practice 08/25/12 08/22/15 Les Fair MD PCP - General Family Practice 08/23/15 12/29/15 [facility] [address] [place], [place] [id number] PCP - General 12/30/15 10/15/16 None PCP - General 10/16/16 01/10/17 Allyson Pool PA [facility] [address] [address] [place] [address] PCP - General 04/27/17 Guillermo Martinez MD [address] [facility] [address] [place] [phone] Cardiology 11/15/17 documented as of this encounter
--- OUTSIDE RECORDS SUMMARY | 2023-12-10 14:30 | XMS_ITS | Referral Summary ---
Author Organization [place] Address [address] [place], [place] [address] [address] Care Team Providers Care Dj Instructor Name Role Phone Allyson Pool Primary Care Provider [phone] Guillermo Martinez MD Unavailable [phone] Allergies Active Allergy Reactions Criticality Noted Date [...] 81 MG tabletIndications:Cor onary artery disease involving ramona heart with other form of angina pectoris, [...] MG sublingual tabletIndications:Cor onary artery disease involving ramona coronary artery of ramona heart without angina pectoris Place 1 tablet [...] Overview: Pac, Pat GERD (gastroesophageal reflux disease) Social History Tobacco Use Types Packs/Day Years [...] T Respiratory Rate 18 05/04/2017 2:42 PM MEAT PACKAGER Oxygen Saturation 95% 05/04/2017 2:42 PM MEAT PACKAGER Inhaled Oxygen Concentration - - Weight 93.3 kg (205 lb 9.6 oz) 11/21/2017 10:17 AM CDT Height 163.8 cm (5' 4.5) 11/21/2017 10:17 AM CD T Body Mass Index 34.75 11/21/2017 10:17 AM CDT Plan of Treatment Not on file Advance Directives For more information, please contact: [phone] * Full Code (Latest Code Status on File) Date Activated Date Inactivated Comments 05/04/2017 1:24 PM * Full Code Date Activated Date Inactivated Comments 05/02/2017 10:28 PM 05/04/2017 1:24 PM Care Teams Dj Instructor Relationship Specialty Start Date End Date Allyson Pool PA [facility] [address] [place] [address] PCP - General 04/27/17 Guillermo Martinez MD [address] [place] [phone] Cardiology 11/15/17
--- OUTSIDE RECORDS SUMMARY | 2023-12-10 14:31 | XMS_ITS | Encounter Summary ---
Author Organization [place] Address [address] [facility] [place] [address] Care Team Providers Care Splicer Machine Operator Name Role Phone Shawn Nice MD Primary Care Provider Unavailab Les Reeves MD Primary Care Provider [facility], [facility] Primary Care Provide r None Primary Care Provider UnavailAllyson Feliciano Primary Care Provider [phone] Guillermo Martinez MD Unavailable [phone] Encounter Details Date Type Department Care Team (Late st Contact Info) Description 09/06/2011 Office Visit-[address] [place] [address] [place] [address] [place] [address] [address] [place] [address] Social History Tobacco Use Types Packs/Day Years Used Date Smoking Tobacco: Never Assessed Sex and Gender Information Value Date Recorded Sex Assigned at Not on file Gender Identity Not on file Sexual Orientation Not on file documented as of this encounter Progress Notes * Guillermo Martinez MD - 09/10/2011 5:14 PM CDT Progress Note Created by: Guillermo Martinez M.D. DATE: 09/06/2011 FIDELIA LUNDBERG DATE OF : 1935 AGE: [age] years old Referring Physician: SHAWN NICE Referring Clinic: [facility] CURRENT DIAGNOSES 1. - Hyperlipidemia, 272.4 2. Hypertension-Essential (Benign), 401.1 3. - CAD, 414.00 4. Ventricular tachycardia, 427.1 5. Status post-PTCA, V45.82 6. MO-Acute Anterior, 410.11 7. Obesity-(<LT>100 ), 278.00 ALLERGIES [...] Review lab results HISTORY OF PRESENT ILLNESS: Fidelia Lundberg is a delightful 75-year-old woman who we have cared for anumber of years. She had a Vfib cardiac arrest from coronary disease. We have done angioplasty. Of note, her son just had an anterior MO with a Vfib cardiac arrest. We angioplastied him he is home now and it was a rough course but is slowly making progress and the patient states she is eternally gra teful to us for saving both her life and her son. This patient has a known totally occluded left circumflex, which is chronic. Her LAD had angioplasty but it is so tortuous it is not clear that we can get a stent down it but we have done balloon angioplasty. Her right coronary has 50- 60% narrowing. She has had no further ectopy and her ejection fraction is good. She had a nuclear stress test in the past that was false positive. It is going to bedifficult to tract her arteries because they are so calcified I am not sure a CT coronary angiogramwill work. Therefore next year I am going to [...] cholesterol 135, ALT 14, sodium 142, potassium 4.2,BUN 11, creatinine 0.88, glucose 85. PAST HISTORY Past Medical Illnesses: hyperlipidemia, hypertension, obesity, cellulitis, benign breast bx, lung nodule (followed by CT per pmd), varicose vein, GERD Past Cardiac Illnesses: coronary artery disease, S/P myocardial infarction-anterior, VF arrest with MO, NSVT immed after MO, Lat MO 1980, Ant MO (Vfib) 10-13 Cath-PTCA [...] 2008 Nuclear Results: 11/18 Defect.-extensive anterior,apical+anteroseptal non-transmural MO in LAD wi/significant,mod.corina-infarct isch.Second defect.- extensive lateral MO in the CFX artery w/no reversible isch.Third [...] - lives with ; Place of - [place]; REVIEW OF SYSTEMS GENERAL feels well, no [...] Tablet, 1 p.o. twice daily, #180 (One Morrison Eighty) nitroglycerin 0.4 mg Tablet, Sublingual, Take as Directed, #25 Plavix 75 mg Tablet, 1 p.o. daily, #90 MEDICATIONS REFILLED/STOPPED TODAY: amlodipine 2.5 mg Tablet 1 p.o. daily 90 Refill, Nitroglycerin 0.4 Mg Tablet, Sublingual Take as Directed #25 Refill, Plavix 75 Mg Tablet 1 p.o. daily #90 Refill, benazepril 20 mg Tablet 1 p.o. daily#90 (Ninety) Refill, Crestor 40 Mg Tablet 1 p.o. daily #90 Refill, Dyazide 37.5-25 mg Capsule 1 p.o. daily #90 Refill and labetalol 100 mg Tablet 1 p.o. twice daily #180 (One Morrison Eighty) Refill IMPRESSIONS/PLAN Her blood pressure is good in fact it may be too good. We decreased her benazepril from 40 down to 20 but she might have been accidentally taking 30 mg. She is on low dose amlodipine but it is not for blood pressure it is for antispasm and for angina and she has no angina. I told her she is welcometo drop the benazepril down to 20 if she was on 30 or drop it down to 10 if she was on 20 since herblood pressure is only about 100-110 and she occasionally has light- headedness when she stands up. Otherwise I will [...] on filedocumented in this encounter Care Teams Splicer Machine Operator Relationship Specialty Start Date End Date Shawn Nice MD PCP - General Family Practice 08/25/12 08/22/15 Les Fair MD PCP - General Family Practice 08/23/15 12/29/15 [facility] [address] [place] [id number] PCP - General 12/30/15 10/15/16 None PCP - General 10/16/16 01/10/17 Allyson Pool PA [facility] [address] [place] [id number] PCP - General 04/27/17 Guillermo Martinez MD [address] [facility] [address] [place] [phone] Cardiology 11/15/17 documented as of this encounter
--- OUTSIDE RECORDS SUMMARY | 2023-12-10 14:31 | XMS_ITS | Encounter Summary ---
Author Organization [place] Address [address] [place] [address] Care Team Providers Care Derrick Hand Name Role Phone Alicia Nice MD Primary Care Provider Unavailab Les Reeves MD Primary Care Provider [facility], [facility] Primary Care Provide r None Primary Care Provider UnavailAllyson Feliciano Primary Care Provider [phone] Guillermo Martinez MD Unavailable [phone] Encounter Details Date Type Department Care Team (Late st Contact Info) Description 10/22/2005 Office Visit-[facility] Heart [address] [place] [address] Unknown, MD Yovany Social History Tobacco Use Types Packs/Day Years Used Date Smoking Tobacco: Never Assessed Sex and Gender Information Value Date Recorded Sex Assigned at Not on file Gender Identity Not on file Sexual Orientation Not on file documented as of this encounter Progress Notes * Unknown, MD Yovany - 10/28/2005 10:09 PM CDT Progress Note Created by: Jesús Almanza NJessP. DATE: 10/22/2005 WAQAR LUNDBERG DATE OF : 1935 AGE: [age] years old Referring Physician: ALICIA NICE Referring Clinic: [facility] CURRENT DIAGNOSES 1. - CAD, 414.00 2. Obesity-(<LT>100 ), 278.00 3. Hypertension-Essential (Benign), 401.1 4. - Hyperlipidemia, 272.4 5. Status post-PTCA, V45.82 6. 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 Ventricular tachycardia, [...] 2002. Her LAD at that point was tootortuous for a stent, and she underwent angioplasty alone. At that point her circumflex was occluded, her right coronary artery had 50-60% stenosis, and 60% diagonal occlusion with a 30% residual narrowing in her LAD angioplasty. 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 There also is a small to moderate size fixed inferior defectmost likely consistent with diaphragm attenuation, although a transmural AK could not be excluded. Compared to 2003, the new finding includes mild anterior ischemia. This patient walked the same amount on the treadmill, had no EKG changes consistent with ischemia. By history she tells me her typical angina is chest pressure, with her initial AK, radiating down her left arm. She is [...] not recommend surgical managment. She continues to gainweight and is somewhat limited in her exercise [...] for her. When she saw someone in [place] for complaints of joint discomfort in her right leg, it was recommended to take furosemide with potassium, but took this without any change in her edema, and stopped this on her own. She has had a history of vein stripping bilaterally. Her blood pressure is suboptimally controlled today but she is tearful, admit to feeling anxious and upset over her upcoming angiogr am. She denies any shortness of breath, orthopnea, PND, syncope or presyncope. Intermittently with her anxiety, she will notice fleeting episodes of dizzyness. PAST HISTORY Past Medical Illnesses: hyperlipidemia, hypertension, obesity, cellulitis, benign breast bx Past Cardiac Illnesses: coronary artery disease, S/P myocardial infarction-anterior, VF arrest with AK, NSVT immed after AK, Lat AK 1980, Ant AK (Vfib) 10-13 Cath-PTCA [...] positive; Diabetes Mellitus: negative; Prior History of HeartDisease: positive; Obesity:positive; Sedentary Life Style:negative; Age:positive; Menopausal:positive SOCIAL HISTORY Alcohol Use - does not use alcohol; Smoking - does not smoke; Diet - caffeine use-3-4 per day, low sodium (less than 2 grams) and low fat Diet; Lifestyle - and children; Exercise - 3 days perweek and re-hab program; Seat Belt Use - always; Occupation - retired; Residence - lives with ; Place of - [place]; REVIEW OF SYSTEMS GENERAL weight loss, 2# [...] disease with history of a lateral wall AK at age 44. Anterior wall AK in 2002 with a ventricular fibrillation arrest, having undergone LAD angioplasty with no stent due to thetortuosity of the vessel. Her circumflex is occluded, and her RCA has moderate disease. This patient now has a mild anterior area of ischemia on her nuclear stress test which is new from 2002. She has no symptoms of sustained or exertional chest pain, but notes increased fatigue. She continues on beta blockers and aspirin therapy. I discussed this with Dr. Martinez and we will proceed with coronary angiogram. I have reviewed the risks of this procedure including contrast dye allergy, contrast dye nephropathy, AK, , stroke, iatrogenic vessel wall trauma, and arrythmia. We have reviewed potential procedures including PTCA, rotoblading, stenting, emergency open heart surgery and elective open heart surgery. She understands the need to be NPO prior to the procedure and have transportation home. 2.Hyperlipidemia. Currently at goal on Lipitor with Niaspan therapy. It is difficult to tell if hermultiple myalgias and joint discomforts are degenerative in nature or statin induced. Reportedly she stopped Lipitor after she saw us last summer and does not remember if it made a substantial change, she thinks it didn't. I will see her back after her angiogram as she would be interested in a drugholiday again after her angigram however, her right hip and knee pain appear to be improving. If her discomfort is substantially better off lipitor, I will switch her to low dose Vytorin and continueNiaspan. Otherwise her lipids are acceptable. 3.Lower extremity edema which I suspect is multifactorial including the fact that she is on Lotrel and has had bilateral vein stripping. This did not respond to furosemide given to her in [place]. I have made no other changes. She [...] she has a short acting agent available aswell. I have asked her to call me with what medication she has available as based on her apparent anxiety today, she may benefit from an anti- anxiety agent the evening prior to her angiogram. TODAYS ORDERS 1. Coronary angiogram 10-24-[address] Martinez 2. F/U with Jesús Almanza, ZAHEER follow up post angiogram Jesús Almanza, N.P. documented in this encounter Plan of Treatment Not on file documented as of this encounter Visit Diagnoses Not on filedocumented in this encounter Care Teams Derrick Hand Relationship Specialty Start Date End Date Alicia Nice MD PCP - General Family Practice 08/25/12 08/22/15 Les Fair MD PCP - General Family Practice 08/23/15 12/29/[address] [facility] [address] [place], [place] [id number] PCP - General 12/30/15 10/15/16 None PCP - General 10/16/16 01/10/17 Allyson Pool PA [facility] [address] [place] [address] PCP - General 04/27/17 Guillermo Martinez MD [address] [facility] [address] [place] [phone] Cardiology 11/15/17 documented as of this encounter
--- OUTSIDE RECORDS SUMMARY | 2023-12-10 14:31 | XMS_ITS | Encounter Summary ---
Author Organization [place] Address [address] [place] [address] Care Team Providers Care Telecommunication Lines Repairer Name Role Phone Alicia Nice MD Primary Care Provider Unavailab Les Reeves MD Primary Care Provider [facility], [facility], [facility] Primary Care Provide r None Primary Care Provider UnavailAllyson Feliciano Primary Care Provider [phone] Guillermo Martinez MD Unavailable [phone] Encounter Details Date Type Department Care Team (Late st Contact Info) Description 12/14/2004 Office Visit-[facility] Heart [address] [place] [address] Unknown, MD Yovany Social History Tobacco Use Types Packs/Day Years Used Date Smoking Tobacco: Never Assessed Sex and Gender Information Value Date Recorded Sex Assigned at Not on file Gender Identity Not on file Sexual Orientation Not on file documented as of this encounter Progress Notes * Unknown, MD Yovany - 12/18/2004 10:29 AM CDT Progress Note Created by: Guillermo Martinez M.D. DATE: 12/14/2004 WAQAR LUNDBERG DATE OF : 1935 AGE: [age] years old Referring Physician: ALICIA NICE Referring Clinic: [facility] CURRENT DIAGNOSES 1. - CAD, [...] She had a heart attack at age 44, which was some 20+ years ago, in her lateral wall. We met her approximately two years ago, when she had anterior infarct with a ventricular fibrillation cardiac arrest. Her left anterior descending was angioplastied; it was tortuous and a stent would not pass. Her left circumflex was occluded. Herright coronary artery had 60% disease. Her ejection fraction was approximately 40+%. The patient reports absolutely no heart symptoms. She had had previous studies done for arrhythmia and did not require a defibrillator. Her lipid values were quite abnormal when [...] VF arrest with MA, NSVT immed after MA, Lat MA 1980, Ant MA (Vfib) 10-13 Cath-PTCA [...] always; Occupation - retired; Place of - [place]; _ REVIEW OF SYSTEMS GENERAL weight gain of [...] gain weight. We talked about Josephine or Telma Ha's exercise program. Total ip counsel time 30 minutes, greater than 50% counseling. TODAYS ORDERS 1. Treadmill Nuclear Study 9 months 2. F/U with Jesús Almanza, MSN, ANP f/u nuc gxt, labs 3. Basic Metabolic Panel 9 months Guillermo Martinez M.D. documented in this encounter Plan of Treatment Not on file documented as of this encounter Visit Diagnoses Not on filedocumented in this encounter Care Teams Telecommunication Lines Repairer Relationship Specialty Start Date End Date Alicia Nice MD PCP - General Family Practice 08/25/12 08/22/15 Les Fair MD PCP - General Family Practice 08/23/15 12/29/15 [facility], [facility] [address] [facility] [place] [id number] PCP - General 12/30/15 10/15/16 None PCP - General 10/16/16 01/10/17 Allyson Pool PA [facility] [address] [address] [place] [id number] PCP - General 04/27/17 Guillermo Martinez MD [address] [facility] [address] [place] [phone] Cardiology 11/15/17 documented as of this encounter
--- OUTSIDE RECORDS SUMMARY | 2023-12-10 14:31 | XMS_ITS | Encounter Summary ---
Author Organization [place] Address [address] [place] [address] Care Team Providers Care Line Painting Machine Operator Name Role Phone Alicia Nice MD Primary Care Provider Unavailab Les Reeves MD Primary Care Provider [facility], [facility] Primary Care Provide r None Primary Care Provider UnavailAllyson Feliciano Primary Care Provider [phone] Guillermo Martinez MD Unavailable [phone] Encounter Details Date Type Department Care Team (Late st Contact Info) Description 04/30/2008 Office Visit-[facility] Heart [address] [place] [phone] Jesús Almanza APRN BOOK SEWER NO INFO AVAILABLE 03/01/2022 Social History Tobacco Use Types Packs/Day Years Used Date Smoking Tobacco: Never Assessed Sex and Gender Information Value Date Recorded Sex Assigned at Not on file Gender Identity Not on file Sexual Orientation Not on file documented as of this encounter Progress Notes * Jesús Almanza - 05/11/2008 5:24 PM CST Progress Note Created by: Jesús Almanza, N.P. DATE: 04/30/2008 WAQAR LUNDBERG DATE OF : 1935 AGE: [age] years old Referring Physician: ALICIA NICE Referring Clinic: [facility] CURRENT DIAGNOSES 1. Hypertension-Essential (Benign), 401.1 2. - Hyperlipidemia, 272.4 3. Status post-PTCA, V45.82 4. NE-Acute Anterior, 410.11 5. Ventricular tachycardia, 427.1 6. [...] myocardial infarction 25 years ago and has parvin strong family history of heart disease. She has lost many family members to this disease. She has a chronically occluded circumflex. She had an anterior myocardial infarction in 2002 with a ventricular fibrillation arrest and continues to have an occluded circumflex. Her right coronary artery was 60% narrowed. He left anterior descending was very tortuous; however, an angioplasty was performed and a stent could not be placed [...] this became worse and she is now back on this medication. We also switched her metoprolol to labetalol starting at 100 mg b.i.d. and she called me with high blood pressures and high heart rates. I increased it to 200 mg twice daily andsince that time, she has many numbers at home between 115 and 126 over 65 to 80, which is a dramatic improvement. She saw her primary care physician recently as well and her numbers were just as goodthere. She feels quite good on this medication now. Today in the clinic her blood pressure was initially high but she is having what she calls another anxious day where she has been rushing, walking the mall and was fearful of being late for my appointment. She clearly admits to having white-coat hypertension, as well. When we talked for a bit and Irechecked her blood pressure, it is firmly in the 126/70s, which is improved. She has had myalgias on Lipitor and is now on Crestor and tolerating this well. Her last LDL was 76, down from the 100s. Her HDL is fine, as are her triglycerides. Crestor is a bit more cost prohibitive for her but I have offered samples to help her since she is in the doughnut hole. She has chronic lower extremity edema with vein stripping and varicosities. She is planning to leave for winter months and is overall feeling quite good and her mode is improving back on her Paxil. PAST HISTORY Past Medical Illnesses: hyperlipidemia, hypertension, obesity, cellulitis, benign breast bx, lung nodule (followed by CT per pmd), varicose vein Past Cardiac Illnesses: coronary artery disease, S/P myocardial infarction-anterior, VF arrest with NE, NSVT immed after NE, Lat NE 1980, Ant NE (Vfib) 10-13 Cath-PTCA LAD(too tortuous for stent), [...] Lifestyle - and children; Exercise - no regularexercise; Seat Belt Use - always; Occupation - retired; Residence - lives with ; Place of - [place]; REVIEW OF SYSTEMS GENERAL weight gain, 3 [...] Left arm, large cuff 126/74 Retaken by [employer] Pulse- 64.00/min. Weight- 248.20 lbs. Height- 65.00 [...] vein strip, trace edema, deformity of R ankle due to prior injury/vein stripping, cellulitis area-cleared now, [...] a cardiac arrest and moderate left anterior descendingdisease. She will have a nuclear test in October and if it is positive, we may need to proceed with a coronary angiography. We will continue with risk factor modification. 2. Dyslipidemia, improved on Crestor. She will continue this same dose. She plans to increase her exercise in [place] this winter and we will recheck when she is back in October. 3. Hypertension. Improved on labetalol. I will continue 200 mg twice daily. She has only mild lightheadedness when her blood pressure is 115 and I have told her if it is persistently that low and she is lightheaded, she should dose adjust the morning to 100 mg, leaving the evening at 200. She would even like to try 150 mg in the morning and 200 in the evening if need be and that would be fine, as well. I asked her to call me if she has any questions with adjusting the dose while she is [place] and I would be more than happy [...] on filedocumented in this encounter Care Teams Line Painting Machine Operator Relationship Specialty Start Date End Date Alicia Nice MD PCP - General Family Practice 08/25/12 08/22/15 Les Fair MD PCP - General Family Practice 08/23/15 12/29/15 [facility], [facility] [address] [facility] [place] [address] PCP - General 12/30/15 10/15/16 None PCP - General 10/16/16 01/10/17 Allyson Pool PA [facility] [address] [place] [id number] PCP - General 04/27/17 Guillermo Martinez MD [address] [facility] [address] [place] [phone] Cardiology 11/15/17 documented as of this encounter
--- OUTSIDE RECORDS SUMMARY | 2023-12-10 14:31 | XMS_ITS | Encounter Summary ---
Author Organization [place] Address [address] [facility] [place] [address] Care Team Providers Care Design Supervisor Name Role Phone Shawn Nice MD Primary Care Provider Unavailab Les Reeves MD Primary Care Provider [facility], [facility] Primary Care Provide r None Primary Care Provider UnavailAllyson Feliciano Primary Care Provider Guillermo Martinez MD Unavailable [phone] Encounter Details Date Type Department Care Team (Late st Contact Info) Description 11/04/2007 Office Visit-[facility] Heart [address] [place] [address] [place] [address] [place] [address] [address] [place] [address] Social History Tobacco Use Types Packs/Day Years Used Date Smoking Tobacco: Never Assessed Sex and Gender Information Value Date Recorded Sex Assigned at Not on file Gender Identity Not on file Sexual Orientation Not on file documented as of this encounter Progress Notes * Guillermo Martinez MD - 11/05/2007 3:49 PM CDT Progress Note Created by: Guillermo Martinez M.D. DATE: 11/04/2007 FIDELIA LUNDBERG DATE OF : 1935 AGE: [age] years old Referring Physician: SHAWN NICE Referring Clinic: [facility] CURRENT DIAGNOSES 1. Hypertension-Essential (Benign), 401.1 2. - Hyperlipidemia, 272.4 3. Status post-PTCA, V45.82 4. PA-Acute Anterior, 410.11 5. Ventricular tachycardia, 427.1 6. [...] up, lab results HISTORY OF PRESENT ILLNESS Fidelia Lundberg is a delightful 71-year-old woman. She has known coronary disease. Twenty five years ago she had a lateral infarction. Her circumflex was chronically occluded. She had an anterior wall infarction in 2002 complicated by V fib cardiac arrest. Heart cath showed a totally occluded circumflex which is chronic. The right coronary artery had 50-60% narrowing. The LAD was very tortuous. Balloon angioplasty was done. A stent could not be [...] and therefore the results are probably not reli able. Her HDL is 50, LDL 107, triglycerides 93, total cholesterol 176, ALT 21. I did give her samples of Crestor to take and also gave her a [...] checked her electrolytes because of the medicine sheis on. Sodium was 141, potassium 3.8, creatinine [...] that she is describing. It is all mechanical,occurring only in certain body positions. She has had some cellulitis and she has lower extremity edema from weight and previous injury to her legs and vein stripping. I encouraged her to wear support stockings. She had a number of other questions. I went through each of them. This was a 45 minute office visit. PAST HISTORY Past Medical Illnesses: hyperlipidemia, hypertension, obesity, cellulitis, benign breast bx, lung nodule (followed by CT per pmd), varicose vein Past Cardiac Illnesses: coronary artery disease, S/P myocardial infarction-anterior, VF arrest with PA, NSVT immed after PA, Lat PA 1980, Ant PA (Vfib) 10-13 Cath-PTCA [...] of - [place]; REVIEW OF SYSTEMS GENERAL weight gain, 2lbs, [...] #135 Refill, Plavix 75 Mg 1 p.o. q.d.#30 Refill, Paxil 10 mg 1 p.o. q.d. DIRECTED Dosage Decreased, Lotrel 5 mg - 40 mg 1 p.o. q.d. #30 or #100 Refill, Dyazide 25 Mg- 37.5 Mg 1 p.o. q.d. #30 Refill, Nitroglycerin [...] Lipid profile/ALT 6 months 4. F/U with Jesús Almanza, MSN, ANP 6 months Guillermo Martinez M.D. documented in this encounter Plan of Treatment Not on file documented as of this encounter Visit Diagnoses Not on filedocumented in this encounter Care Teams Design Supervisor Relationship Specialty Start Date End Date Shawn Nice MD PCP - [facility] Family Practice 08/25/12 08/22/15 Les Fair MD PCP - General Family Practice 08/23/15 12/29/[address] [facility] [address] [place] [address] PCP - General 12/30/15 10/15/16 None PCP - General 10/16/16 01/10/17 Allyson Pool PA [facility] [address] [place] [id number] PCP - General 04/27/17 Guillermo Martinez MD [address] [facility] [address] [place] [phone] Cardiology 11/15/17 documented as of this encounter
--- OUTSIDE RECORDS SUMMARY | 2023-12-10 14:31 | XMS_ITS | Encounter Summary ---
Author Organization [place] Address [address] [facility] [place] [address] Care Team Providers Care [employer] French Teacher Name Role Phone Alicia Nice MD Primary Care Provider Unavailab Les Reeves MD Primary Care Provider [facility], [facility] Primary Care Provide r None Primary Care Provider UnavailAllyson Feliciano Primary Care Provider [phone] Guillermo Martinez MD Unavailable [phone] Encounter Details Date Type Department Care Team (Late st Contact Info) Description 11/22/2003 Office Visit-[facility] Heart [address] [place] [address] Unknown, MD Yovany Social History Tobacco Use Types Packs/Day Years Used Date Smoking Tobacco: Never Assessed Sex and Gender Information Value Date Recorded Sex Assigned at Not on file Gender Identity Not on file Sexual Orientation Not on file documented as of this encounter Progress Notes * Unknown, MD Yovany - 11/24/2003 12:57 PM CDT Progress Note Created by: Guillermo Martinez M.D. DATE: 11/22/2003 WAQAR LUNDBERG DATE OF : 1935 AGE: [age] years old Referring Physician: ALICIA NICE Referring Clinic: [facility] CURRENT DIAGNOSES 1. - CAD, 414.00 2. Hypertension-Essential (Benign), 401.1 3. - Hyperlipidemia, 272.4 4. Status post-PTCA, v45.82 5. Obesity-(<LT>100 ), 278.00 6. HI-Acute Anterior, 410.11 7. Ventricular tachycardia, 427.1 ALLERGIES [...] coronary disease. She had a remote myocardial infarction. We met her when she had an anterior infarction a year ago complicated by V fib cardiac arrest. Laurie has hyperlipidemia and moderate three-vessel disease. Since her angioplasty she has had no further heart symptoms. She reports feeling well. No palpitations. No dizziness. She has mild chronic ankle edema, partially due to being overweight, partially due [...] two weeks. In the interim I am going to check an electrolyte panel because she tells me she always has a low potassium. This is important for two points. One is that she had a V fib cardiac arrest and it is important to keep her potassium normal. The second is this may be a red flag for Conn's syndrome. She is on Dyazide andif her potassium is low we may need to work her up for Conn's syndrome, but she may also be better served by Aldactone rather than Dyazide. PAST HISTORY Past Medical Illnesses: hyperlipidemia, hypertension, obesity, cellulitis Past Cardiac Illnesses: coronary artery disease, S/P myocardial infarction-anterior, VF arrest with HI, NSVT immed after HI, Lat HI 1980, Ant HI (Vfib) 10-13 Cath-PTCA [...] Occupation - retired; Place of - [place]; _ REVIEW OF SYSTEMS GENERAL weight gain, 8.2 [...] I discussed with her if she does makea switch to go to 500 mg b.i.d. with food. We also discussed Plavix. Although she has moderate three-vessel disease my preference would be that she be on it if she can afford it, but if cost is an issue I do not believe the medicine adds that much additional benefit now that we are a year out from h er original infarct. Total consult time: 35 minutes. TODAYS ORDERS 1. Return Visit 1 year 2. Lipid profile/ALT 1 year 3. Basic Metabolic Panel Today 4. F/U with Christine Che M.D. documented in this encounter Plan of Treatment Not on file documented as of this encounter Visit Diagnoses Not on filedocumented in this encounter Care Teams [employer] French Teacher Relationship Specialty Start Date End Date Alicia Nice MD PCP - General Family Practice 08/25/12 08/22/15 Les Fair MD PCP - General Family Practice 08/23/15 12/29/[address] [address] PCP - General 12/30/15 10/15/16 None PCP - General 10/16/16 01/10/17 Allyson Pool PA [facility] [address] [address] [address] PCP - General 04/27/17 Guillermo Martinez MD [address] [facility] [address] [place] [phone] Cardiology 11/15/17 documented as of this encounter
--- OUTSIDE RECORDS SUMMARY | 2023-12-10 14:31 | XMS_ITS | Encounter Summary ---
Author Organization [place] Address [address] [place] [place] [address] Care Team Providers Care Cable Ferry Operator Name Role Phone Alicia Nice MD Primary Care Provider Unavailab Les Reeves MD Primary Care Provider [phone] [facility], [facility] Primary Care Provide r None Primary Care Provider UnavailAllyson Feliciano Primary Care Provider [phone] Guillermo Martinez MD Unavailable [phone] Encounter Details Date Type Department Care Team (Late st Contact Info) Description 11/01/2005 Office Visit-[facility] Heart [address] [place] [address] Unknown, MD Yovany Social History Tobacco Use Types Packs/Day Years Used Date Smoking Tobacco: Never Assessed Sex and Gender Information Value Date Recorded Sex Assigned at Not on file Gender Identity Not on file Sexual Orientation Not on file documented as of this encounter Progress Notes * Unknown, MD Yovany - 12/14/2005 3:46 PM CDT Progress Note Created by: Jesús Almanza N.P. DATE: 11/01/2005 WAQAR LUNDBERG DATE OF : 1935 AGE: [age] years old Referring Physician: ALICIA NICE Referring Clinic: [facility] CURRENT DIAGNOSES 1. - CAD, 414.00 2. Hypertension-Essential (Benign), 401.1 3. - Hyperlipidemia, 272.4 4. Status post-PTCA, V45.82 5. Obesity-(<LT>100 ), 278.00 6. [place]-Acute Anterior, 410.11 7. Ventricular tachycardia, 427.1 ALLERGIES [...] 2002. Her left anterior descending was too tortuous to stent but she underwent angioplasty. The circumflex was occluded and her right coronary arteryhad 50 to 60% stenosis with a 60% diagonal occlusion and 30% residual narrowing in her left anterior descending. Her ejection fraction has been 35 to 40%. Recently, a nuclear stress test showed her old lateral wall myocardial infarction with a new leqwf-vu-uikysndi sized reversible anterior defect,consistent with mild ischemia without infarction. Based on her history, she was taken to the catheterization lab for an angiogram. She has had an EP study done in the past, which was non-inducible. Her recent angiogram, thankfully, did not show any significant changes in her disease. She continues t o have a left anterior descending restenosis at her angioplasty site in the range of 50 to 60%. Hercircumflex continues to be occluded with nothing more than 50 to 60% right coronary artery stenosis. Her ejection fraction is 35%. Her right groin has healed well from her procedure. Her potassium was 3.5. Pre- procedure, she is on a potassium-sparing diuretic in the form of Dyazide and does try to supplement her diet with potassium routinely. She has had recent issues with myalgias in her legs. She underwent an orthopedic workup, which was essentially negative for any particular joint concerns.This comes and goes and, she feels, is somewhat dependent on the weather and her activity. She has b ilateral lower extremity edema with varicosities and a history of vein stripping. Her total cholesterol in September was 138, HDL 54, LDL 65, ALT 26 on a combination of Lipitor and Niaspan. She is going totry to suspend her statin therapy the first part of November to see if this improves, and I have asked her to contact me. Dr. Martinez's suggestions were to increase her beta-rosy for optimal blood pressure control. In the past when she was on 50 mg b.i.d. of metoprolol tartrate, she had heart rates in the 30s and 40sand this was subsequently decreased. I will actually try the in between dose of 25 in the morning and 50 in the evening and I have asked her to check her heart rate and call me if it drops much belowthe mid 50s. She is essentially without complaints today, and her examination is unremarkable and outlined below. PAST HISTORY Past Medical Illnesses: hyperlipidemia, hypertension, obesity, cellulitis, benign breast bx Past Cardiac Illnesses: coronary artery disease, S/P myocardial infarction-anterior, VF arrest with [place], NSVT immed after [place], Lat [place] 1980, Ant [place] (Vfib) 10-13 Cath-PTCA LAD(too tortuous for stent), [...] - lives with ; Place of - [place]; REVIEW OF SYSTEMS GENERAL weight loss of [...] beta-blockers. She is aware of how to checkher pulse, as is her and she will [...] addition to Niaspan. If her medications are changed,I will order a lipid profile before her [...] filedocumented in this encounter Care Teams Cable Ferry Operator Relationship Specialty Start Date End Date Alicia Nice MD PCP - General Family Practice 08/25/12 08/22/15 Les Fair MD PCP - General Family Practice 08/23/15 12/29/15 [facility] [address] [place] [address] PCP - General 12/30/15 10/15/16 None PCP - General 10/16/16 01/10/17 Allyson Pool PA [facility] [address] [place] [address] PCP - General 04/27/17 Guillermo Martinez MD [address] [facility] [address] [place] [address] Cardiology 11/15/17 documented as of this encounter
--- OUTSIDE RECORDS SUMMARY | 2023-12-10 14:31 | XMS_ITS | Encounter Summary ---
Author Organization [place] Address [address] [place] [address] Care Team Providers Care Director Of Software Engineering Name Role Phone Shawn Nice MD Primary Care Provider Unavailab Les Reeves MD Primary Care Provider [phone] [facility], [facility] Primary Care Provide r None Primary Care Provider UnavailAllyson Feliciano Primary Care Provider [phone] Guillermo Martinez MD Unavailable [phone] Encounter Details Date Type Department Care Team (Late st Contact Info) Description 12/01/2008 Office Visit-[facility] Heart [address] [place] [phone] Hattie Almanza APRN FICTION AND NONFICTION WRITER PROSE NO INFO AVAILABLE 03/01/2022 Social History Tobacco Use Types Packs/Day Years Used Date Smoking Tobacco: Never Assessed Sex and Gender Information Value Date Recorded Sex Assigned at Not on file Gender Identity Not on file Sexual Orientation Not on file documented as of this encounter Progress Notes * Hattie Almanza - 12/13/2008 8:47 PM CDT Progress Note Created by: Hattie Almanza, N.P. DATE: 12/01/2008 FIDELIA LUNDBERG DATE OF : 1935 AGE: [age] years old Referring Physician: SHAWN NICE Referring Clinic: [facility] CURRENT DIAGNOSES 1. - CAD, 414.00 2. Hypertension-Essential (Benign), 401.1 3. - Hyperlipidemia, 272.4 4. Status post-PTCA, V45.82 5. Obesity-(<LT>100 ), 278.00 6. MD-Acute Anterior, 410.11 7. Ventricular tachycardia, 427.1 ALLERGIES [...] angiogr HISTORY OF PRESENT ILLNESS dictated to [facility] Line job ID [id number] PAST HISTORY Past Medical Illnesses: hyperlipidemia, hypertension, obesity, cellulitis, benign breast bx, lung nodule (followed by CT per pmd), varicose vein Past Cardiac Illnesses: coronary artery disease, S/P myocardial infarction-anterior, VF arrest with MD, NSVT immed after MD, Lat MD 1980, Ant MD (Vfib) 10-13 Cath-PTCA [...] of - [place]; REVIEW OF SYSTEMS GENERAL weight loss, 2 [...] 1 1/2 tab in the pm, DIRECTED Edvin 20 Mg, 1 p.o. daily, #30 MEDICATIONS REFILLED/STOPPED TODAY: Crestor 10 Mg 1 p.o. q.d. #90 Physician Order and Normodyne 100 Mg 2 tabs bid fill with labetolol #120 Dosage Decreased IMPRESSIONS/PLAN (Enter Doctor Dictated Impressions Here) TODAYS ORDERS 1. Left Heart Cath tomorrow please Hattie Almanza, N.P. documented in this encounter Plan of Treatment Not on file documented as of this encounter Visit Diagnoses Not on filedocumented in this encounter Care Teams Director Of Software Engineering Relationship Specialty Start Date End Date Shawn Nice MD PCP - General Family Practice 08/25/12 08/22/15 Les Fair MD PCP - General Family Practice 08/23/15 12/29/15 [facility] [address] [place] [address] PCP - General 12/30/15 10/15/16 None PCP - General 10/16/16 01/10/17 Allyson oPol PA [facility] [address] [place] [address] PCP - General 04/27/17 Guillermo Martinez MD [address] [facility] [address] [place] [address] Cardiology 11/15/17 documented as of this encounter
--- OUTSIDE RECORDS SUMMARY | 2023-12-10 14:31 | XMS_ITS | Encounter Summary ---
Author Organization [place] Address [address] [facility] [place] [address] Care Team Providers Care Cylinder Head Assembler Name Role Phone Alicia Nice MD Primary Care Provider Unavailab Les Reeves MD Primary Care Provider [facility], [facility] Primary Care Provide r None Primary Care Provider UnavailAllyson Feliciano Primary Care Provider [phone] Guillermo Martinez MD Unavailable [phone] Encounter Details Date Type Department Care Team (Late st Contact Info) Description 10/02/2005 Office Visit-[facility] Heart [address] [place] [address] Unknown, MD Yovany Social History Tobacco Use Types Packs/Day Years Used Date Smoking Tobacco: Never Assessed Sex and Gender Information Value Date Recorded Sex Assigned at Not on file Gender Identity Not on file Sexual Orientation Not on file documented as of this encounter Progress Notes * Unknown, MD Yovany - 10/04/2005 11:05 AM CDT Progress Note Created by: Jesús Almanza N.P. DATE: 10/02/2005 WAQAR LUNDBERG DATE OF : 1935 AGE: [age] years old Referring Physician: ALICIA NICE Referring Clinic: [facility] CURRENT DIAGNOSES 1. - CAD, [...] artery had 50-60% RCA stenosis, and she didhave 60% diagonal occlusion with a 30% residual narrowing in her angioplasty. She actually went back to the chemical lab technician a second time following the angioplasty due to recurrent symptoms with anxiety; noacute changes were noted. Ejection fraction by LV gram is estimated at 35-40%. She has had a workupfor arrhythmia which was negative and did not [...] is seeing an orthopedic physician. She continues togain weight and is somewhat limited in her exercise capacity due to her current joint problems. Laurie has generalized muscle aching, and complained to [...] for her. When she saw someone in [place] for complaints of joint discomfort in her [...] VF arrest with [place], NSVT immed after [place], Lat [place] 1980, Ant [place] (Vfib) 6- Cath-PTCA [...] - lives with ; Place of - [place]; REVIEW OF SYSTEMS GENERAL weight gain of [...] is new from 2002. She has no symptoms. She continues on beta blockers and aspirin therapy. This is, however, a change in hernuclear stress test results with no apparent symptoms. [...] remember if it made a substantial change. Therefore, she will take another drug holiday from [...] respond to furosemide given to her in [place]. I have made no other changes. She [...] I will notify her of the plan inmore detail and the requirements for any follow up that would be appropriate. Greater than 50% of this 30 minute visit today was spent counseling this patient on her test results, and reviewing the options of medical management versus coronary angiogram as option based on her stress test findings, as well as reviewing lifestyle modifications and her lipid profile. ADDENDUM: I have reviewed the nuclear findings and we will proceed with coronary anigiogram. See clinical notes for further discussion. Jesús Almanza, [id number] (Enter Doctor Dictated Impressions Here) TODAYS ORDERS 1. F/U with Guillermo Martinez MD followup Jesús Almanza, N.P. documented in this encounter Plan of Treatment Not on file documented as of this encounter Visit Diagnoses Not on filedocumented in this encounter Care Teams Cylinder Head Assembler Relationship Specialty Start Date End Date Alicia Nice MD PCP - General Family Practice 08/25/12 08/22/15 Les Fair MD PCP - General Family Practice 08/23/15 12/29/15 [facility] [address] [place] [address] PCP - General 12/30/15 10/15/16 None PCP - General 10/16/16 01/10/17 Allyson Pool PA [facility] [address] [place] [address] PCP - General 04/27/17 Guillermo Martinez MD [address] [facility] [address] [place] [address] Cardiology 11/15/17 documented as of this encounter
--- OUTSIDE RECORDS SUMMARY | 2023-12-10 14:31 | XMS_ITS | Encounter Summary ---
Author Organization [place] Address [address] [facility] [place] [address] Care Team Providers Care Metal Furrer Name Role Phone Alicia Nice MD Primary Care Provider Unavailab Les Reeves MD Primary Care Provider [facility], [facility] Primary Care Provide r None Primary Care Provider UnavailAllyson Feliciano Primary Care Provider [phone] Guillermo Martinez MD Unavailable [phone] Encounter Details Date Type Department Care Team (Late st Contact Info) Description 08/26/2009 Office Visit-[facility] Heart [address] [place] [phone] Jesús Almanza APRN CREDIT SPECIALIST NO INFO AVAILABLE 03/01/2022 Social History Tobacco Use Types Packs/Day Years Used Date Smoking Tobacco: Never Assessed Sex and Gender Information Value Date Recorded Sex Assigned at Not on file Gender Identity Not on file Sexual Orientation Not on file documented as of this encounter Progress Notes * Jesús Almanza - 12/22/2009 11:57 AM CDT Progress Note Created by: Jesús Almanza, N.P. DATE: 08/26/2009 WAQAR LUNDBERG DATE OF : 1935 AGE: [age] years old Referring Physician: ALICIA NICE Referring Clinic: [facility] CURRENT DIAGNOSES 1. - CAD, 414.00 2. Hypertension-Essential (Benign), 401.1 3. - Hyperlipidemia, 272.4 4. Status post-PTCA, V45.82 5. Obesity-(<LT>100 ), 278.00 6. [place]-Acute Anterior, 410.11 7. Ventricular tachycardia, 427.1 ALLERGIES [...] stress test appeared to have a change in that there was increased reversibility in the LAD distribution. Based on her known coronary arterydisease, she went back for a repeat coronary angiogram showing no progression of her disease. An LAD WaveWire showed a fractional flow reserve of 0.9. There have historically been discrepancies between her LV function on LVgram and nuclear testing. Her LVgram showed an ejection fraction of 55%. Herlast nuclear test did as well. Nuclear testing causes [...] winter. Now her LDL remains at 89. Her HDL was 47. She appears to be tolerating [...] this goes for the next couple of months. She has had some losses in her family over the winter and is tearful over this. Otherwise,she is doing quite well but clearly could make some improvements in her diet along with the increased Crestor. We talked about the Zetia option today. We are opting together to choose high dose statin first. PAST HISTORY Past Medical Illnesses: hyperlipidemia, hypertension, obesity, cellulitis, benign breast bx, lung nodule (followed by CT per pmd), varicose vein Past Cardiac Illnesses: coronary artery disease, S/P myocardial infarction-anterior, VF arrest with [place], NSVT immed after [place], Lat [place] 1980, Ant [place] (Vfib) 10-13 Cath-PTCA LAD(too tortuous for stent), [...] 2008 Nuclear Results: 11/18 Defect.-extensive anterior,apical+anteroseptal non-transmural SC in LAD wi/significant,mod.corina-infarct isch.Second defect.- extensive lateral SC in the CFX artery w/no reversible isch.Third [...] [place]; REVIEW OF SYSTEMS GENERAL weight loss, 3 [...] will increase Crestor to 40 mg a day and be watchful for increased muscle discomfort. If [...] ended up not being reproduced in the Accounting Clerk. TODAYS ORDERS 1. F/U with Jesús Almanza, MSN, ANP 2 months 2. Lipid profile/ALT 2 months Jesús Almanza, N.P. documented in this encounter Plan of Treatment Not on file documented as of this encounter Visit Diagnoses Not on filedocumented in this encounter Care Teams Metal Furrer Relationship Specialty Start Date End Date Alicia Nice MD PCP - General Family Practice 08/25/12 08/22/15 Les Fair MD PCP - General Family Practice 08/23/15 12/29/15 [facility] [address] [place] [address] PCP - General 12/30/15 10/15/16 None PCP - General 10/16/16 01/10/17 Allyson Pool PA [facility] [address] [place] [address] PCP - General 04/27/17 Guillermo Martinez MD [address] [facility] [address] [place] [phone] Cardiology 11/15/17 documented as of this encounter
--- OUTSIDE RECORDS SUMMARY | 2023-12-10 14:31 | XMS_ITS | Encounter Summary ---
Author Organization [place] Address [address] [place] [address] Care Team Providers Care Juvenile Probation Officer Name Role Phone Shawn Nice MD Primary Care Provider Unavailab Les Reeves MD Primary Care Provider [facility], [facility] Primary Care Provide r None Primary Care Provider UnavailAllyson Feliciano Primary Care Provider [phone] Guillermo Martinez MD Unavailable [phone] Encounter Details Date Type Department Care Team (Late st Contact Info) Description 08/17/2010 Office Visit-[address] [place] [address] [place] [address] [place] [address] [address] [place] [address] Social History Tobacco Use Types Packs/Day Years Used Date Smoking Tobacco: Never Assessed Sex and Gender Information Value Date Recorded Sex Assigned at Not on file Gender Identity Not on file Sexual Orientation Not on file documented as of this encounter Progress Notes * Guillermo Martinez MD - 04/25/2011 12:02 PM CST Progress Note Created by: Guillermo Martinez M.D. DATE: 08/17/2010 FIDELIA LUNDBERG DATE OF : 1935 AGE: [age] years old Referring Physician: SHAWN NICE Referring Clinic: [facility] CURRENT DIAGNOSES 1. - Hyperlipidemia, 272.4 2. Hypertension-Essential (Benign), 401.1 3. - CAD, 414.00 4. Ventricular tachycardia, 427.1 5. Status post-PTCA, V45.82 6. [place]-Acute Anterior, 410.11 7. Obesity-(<LT>100 ), 278.00 ALLERGIES [...] daily CHIEF COMPLAINTS HISTORY OF PRESENT ILLNESS Fidelia Lundberg returns for followup. She is a delightful 74-year-old woman. She has known coronary disease, with somewhat complex coronary anatomy. She had a previous myocardial infarction with a ventricular fibrillation cardiac arrest. Her left circumflex marginal is chronically occluded, her rightcoronary artery 50 to 60% narrowing. Her left anterior descending is very tortuous to the point that we are not sure we could ever stent it. We did do angioplasty and it had a 50% narrowing. A littleover a year ago, she had a stress test [...] down yet again. She has minimal lightheadedness when she stands up. Similarly as she has lost weight and we changed her cholesterol pills, her cholesterol numbers cameback the best ever. Triglycerides 103, total cholesterol 136, HDL 58, LDL 57, ALT 25, sodium 141, potassium 3.9, BUN 18, creatinine 1.02, glucose was 97. Her original cholesterol numbers in 2002 wereLDL 115, HDL 43, triglyceride 131. PAST HISTORY Past Medical Illnesses: hyperlipidemia, hypertension, obesity, cellulitis, benign breast bx, lung nodule (followed by CT per pmd), varicose vein, GERD Past Cardiac Illnesses: coronary artery disease, S/P myocardial infarction-anterior, VF arrest with [place], NSVT immed after [place], Lat [place] 1980, Ant [place] (Vfib) 10-13 Cath-PTCA [...] - lives with ; Place of - [place]; REVIEW OF SYSTEMS GENERAL appetite good, energy [...] Dyazide 37.5-25 Mg Capsule 1 p.o. daily #90Refill and Plavix 75 Mg Tablet 1 p.o. daily #90 Refill IMPRESSIONS/PLAN At this junction I am going to decrease the benazepril from 40 down to 20. If she continues to loseweight, we may be able to slowly decrease her medications further. I will have her pelletizer tender do that since I do not need to see her for another year. She will check her blood pressure to make sure that it does not jump up now that she is on benazepril 20 instead of 40. She reports feeling well and I am very happy with how she is doing. With regarding to following up on her coronary disease, it is going to be difficult since she had afalse-positive stress test. At this point, I do [...] on filedocumented in this encounter Care Teams Juvenile Probation Officer Relationship Specialty Start Date End Date Shawn Nice MD PCP - General Family Practice 08/25/12 08/22/15 Les Fair MD PCP - General Family Practice 08/23/15 12/29/15 [facility] [address] [place] [address] PCP - General 12/30/15 10/15/16 None PCP - General 10/16/16 01/10/17 Allyson Pool PA [facility] [address] [address] [place] [address] PCP - General 04/27/17 Guillermo Martinez MD [address] [facility] [address] [place] [address] Cardiology 11/15/17 documented as of this encounter
--- OUTSIDE RECORDS SUMMARY | 2023-12-10 14:31 | XMS_ITS | Encounter Summary ---
Author Organization [place] Address [address] [place] [address] Care Team Providers Care Real Estate Firm Manager Name Role Phone Shawn Nice MD Primary Care Provider Unavailab Les Reeves MD Primary Care Provider [phone] [facility], [facility] Primary Care Provide r None Primary Care Provider UnavailAllyson Feliciano Primary Care Provider [phone] Guillermo Martinez MD Unavailable [phone] Encounter Details Date Type Department Care Team (Late st Contact Info) Description 01/14/2003 Office Visit-[facility] Heart [address] [place] [address] Unknown, MD Yovany Social History Tobacco Use Types Packs/Day Years Used Date Smoking Tobacco: Never Assessed Sex and Gender Information Value Date Recorded Sex Assigned at Not on file Gender Identity Not on file Sexual Orientation Not on file documented as of this encounter Progress Notes * Unknown, MD Yovany - 01/14/2003 12:10 PM CDT Progress Note Created by: Guillermo Martinez M.D. DATE: 01/14/2003 FIDELIA LUNDBERG DATE OF : 1935 AGE: [age] years old Referring Physician: SHAWN NICE CURRENT DIAGNOSES 1. - CAD, 414.00 2. - Hyperlipidemia, 272.4 3. Status post-PTCA, v45.82 4. Obesity-(<LT>100 ), 278.00 5. Hypertension-Essential (Benign), 401.1 6. MD-Acute Anterior, 410.11 7. Ventricular tachycardia, [...] gxt, 5. Return Visit 1 month with YOUTH CARE PROFESSIONAL f/u bp bmp Guillermo Martinez M.D. Electronically signed by [facility] Data Conversion at 09/25/2013 6:26 AM CDT documented in this encounter Plan of Treatment Not on file documented as of this encounter Visit Diagnoses Not on filedocumented in this encounter Care Teams Real Estate Firm Manager Relationship Specialty Start Date End Date Shawn Nice MD PCP - [facility] Family Practice 08/25/12 08/22/15 Les Fair MD PCP - General Family Practice 08/23/15 12/29/15 [facility] [address] [place] [address] PCP - General 12/30/15 10/15/16 None PCP - General 10/16/16 01/10/17 Allyson Pool PA [facility] [address] [place] [address] PCP - General 04/27/17 Guillermo Martinez MD [address] [facility] [address] [place] [id number] Cardiology 11/15/17 documented as of this encounter
--- OUTSIDE RECORDS SUMMARY | 2023-12-10 14:31 | XMS_ITS | Encounter Summary ---
Author Organization [place] Address [address] [facility] [place] [address] Care Team Providers Care Distribution Engineering Technologist Name Role Phone Shawn Nice MD Primary Care Provider Unavailab Les Reeves MD Primary Care Provider [facility], [facility] Primary Care Provide r None Primary Care Provider UnavailAllyson Feliciano Primary Care Provider [phone] Guillermo Martinez MD Unavailable [phone] Encounter Details Date Type Department Care Team (Late st Contact Info) Description 02/19/2006 Office Visit-[facility] [address] [place] [address] [place] [address] [place] [address] [address] [place] [address] Social History Tobacco Use Types Packs/Day Years Used Date Smoking Tobacco: Never Assessed Sex and Gender Information Value Date Recorded Sex Assigned at Not on file Gender Identity Not on file Sexual Orientation Not on file documented as of this encounter Progress Notes * Guillermo Martinez MD - 04/10/2006 8:24 AM CST Progress Note Created by: Guillermo Martinez M.D. DATE: 02/19/2006 FIDELIA LUNDBERG DATE OF : 1935 AGE: [age] years old Referring Physician: SHAWN NICE Referring Clinic: [facility] CURRENT DIAGNOSES 1. Hypertension-Essential (Benign), 401.1 2. - Hyperlipidemia, 272.4 3. Status post-PTCA, V45.82 4. [place]-Acute Anterior, 410.11 5. Ventricular tachycardia, 427.1 6. [...] The artery was too tortuous to accept a stent. The circumflex was chronically occluded. The right [...] the patient come back in two months for a lipid profile. Her blood pressure shows good control and she is feeling well. There is no changein her past history, family history, social history and review of systems. TODAYS ORDERS 1. Lipid profile/ALT 2 months 2. F/U with Jesús Almanza, MSN, ANP f/u chol Guillermo Martinez M.D. documented in this encounter Plan of Treatment Not on file documented as of this encounter Visit Diagnoses Not on filedocumented in this encounter Care Teams Distribution Engineering Technologist Relationship Specialty Start Date End Date Shawn Nice MD PCP - General Family Practice 08/25/12 08/22/15 Les Fair MD PCP - General Family Practice 08/23/15 [facility] [address] [place] [address] PCP - General 12/30/15 10/15/16 None PCP - General 10/16/16 01/10/17 Allyson Pool PA [facility] [address] [place] [address] PCP - General 04/27/17 Guillermo Martinez MD [address] [place] [address] Cardiology 11/15/17 documented as of this encounter
--- OUTSIDE RECORDS SUMMARY | 2023-12-10 14:31 | XMS_ITS | Encounter Summary ---
Author Organization [place] Address [facility] [place] [address] Care Team Providers Care Neuropsychologist Name Role Phone Alicia Nice MD Primary Care Provider Unavailab Les Reeves MD Primary Care Provider [facility], [facility] Primary Care Provide r None Primary Care Provider UnavailAllyson Feliciano Primary Care Provider [phone] Guillermo Martinez MD Unavailable [phone] Encounter Details Date Type Department Care Team (Late st Contact Info) Description 12/23/2009 Office Visit-[facility] [address] [place] [address] Unknown, MD Yovany Social History Tobacco Use Types Packs/Day Years Used Date Smoking Tobacco: Never Assessed Sex and Gender Information Value Date Recorded Sex Assigned at Not on file Gender Identity Not on file Sexual Orientation Not on file documented as of this encounter Progress Notes * Unknown, MD Yovany - 01/06/2010 8:26 AM CDT Progress Note Created by: ANGELINA Torrez DATE: 12/23/2009 WAQAR LUNDBERG DATE OF : 1935 AGE: [age] years old Referring Physician: ALICIA NICE Referring Clinic: [facility] CURRENT DIAGNOSES 1. - CAD, 414.00 2. Hypertension-Essential (Benign), 401.1 3. - Hyperlipidemia, 272.4 4. Status post-PTCA, V45.82 5. Obesity-(<LT>100 ), 278.00 6. AK-Acute Anterior, [...] here for a follow-up appointment. She routinely followswith Jesús Almanza and Dr. Guillermo Martinez. Her history includes coronary artery disease. Shedid have a nuclear stress test last fall where there was increased reversibility in the left anterior descending distribution. She went back for a repeat angiogram that showed no progression of her disease. She had a fractional flow reserve of the left anterior descending of 0.9. Her left ventriculogram showed an ejection fraction of 55%. She has had problems in the past with statin intolerances due to myalgias. She was on Crestor 20 mg. Her LDL was at 89 in August. When she had last seen Jesús at that time she was having some stomach issues. She was recommended to increase her Crestor to 40 mg, watch for myalgias and repeat a fasting lipid panel. She had not started the extra 20 mg of Crestor and had continued at 20 mg given her stomach issues.She was started on Prilosec but then was [...] HDL declined significantly to 35. Triglycerides were 90,ALT was 21. She has denied any chest [...] 2008 Nuclear Results: 11/18 Defect.-extensive anterior,apical+anteroseptal non-transmural AK in LAD wi/significant,mod.corina-infarct isch.Second defect.- extensive lateral AK in the CFX artery w/no reversible isch.Third [...] Age:positive; Menopausal:positive SOCIAL HISTORY Alcohol Use - drinks rarely; Smoking - does not smoke; Diet - caffeine use-3-4 per day, low sodium (less than 2 grams) and low fat Diet; Lifestyle - and children; Exercise - no regular exercise; Seat Belt Use - always; Occupation - retired; Residence - lives with ; Place of - [place]; REVIEW OF SYSTEMS GENERAL weight loss, 11 [...] 2. F/U with Jesús Almanza, MSN, ANP 2 months ANGELINA Torrez documented in this encounter Plan of Treatment Not on file documented as of this encounter Visit Diagnoses Not on filedocumented in this encounter Care Teams Neuropsychologist Relationship Specialty Start Date End Date Alicia Nice MD PCP - General Family Practice 08/25/12 08/22/15 Les Fair MD PCP - General Family Practice 08/23/15 12/29/15 [facility] [id number] [place] [id number] PCP - General 12/30/15 10/15/16 None PCP - General 10/16/16 01/10/17 Allyson Pool PA [facility] [address] [place] [address] PCP - General 04/27/17 Guillermo Martinez MD [address] [place] [address] Cardiology 11/15/17 documented as of this encounter
--- OUTSIDE RECORDS SUMMARY | 2023-12-10 14:31 | XMS_ITS | Encounter Summary ---
Author Organization [place] Address [address] [facility] [facility] [place] [address] Care Team Providers Care Floor Helper Name Role Phone Alicia Nice MD Primary Care Provider Unavailab Les Reeves MD Primary Care Provider [facility], [facility] Primary Care Provide r None Primary Care Provider UnavailAllyson Feliciano Primary Care Provider [phone] Guillermo Martinez MD Unavailable [phone] Encounter Details Date Type Department Care Team (Late st Contact Info) Description 02/17/2003 Office Visit-[facility] [address] [place] [address] Unknown, MD Yovany Social History Tobacco Use Types Packs/Day Years Used Date Smoking Tobacco: Never Assessed Sex and Gender Information Value Date Recorded Sex Assigned at Not on file Gender Identity Not on file Sexual Orientation Not on file documented as of this encounter Progress Notes * Unknown, MD Yovany - 02/19/2003 9:55 AM CDT Progress Note Created by: Marcelo Diaz NP DATE: 02/17/2003 WAQAR LUNDBERG DATE OF : 1935 AGE: [age] years old Referring Physician: ALICIA NICE CURRENT DIAGNOSES 1. - CAD, 414.00 2. Hypertension-Essential (Benign), 401.1 3. - Hyperlipidemia, 272.4 4. Status post-PTCA, v45.82 5. Obesity-(<LT>100 ), 278.00 6. [place]-Acute Anterior, 410.11 7. Ventricular tachycardia, 427.1 ALLERGIES [...] to the catheterization lab and underwent balloon angioplasty of her LAD. There was moderate disease proximally and severe mid- vessel narrowing of this vesselwhich was the infarct vessel. However, this vessel had a significant amount of tortuosity and therefore a stent could not be placed. She had a reduced ejection fraction at that time of 35-40%. The patient had some nonsustained VT after her procedure which gradually decreased in frequency over the time she was in the hospital. Follow-up Holter monitor done after her discharge demonstrated some PACs and very brief SVT but no ventricular tachycardia. It was felt that she did not need further EP studies or defibrillator. The patient [...] Follow-up BMP demonstrated a normal potassium at 4.2, BUN 10 and creatinine of 1.0. The patient [...] however, as of late has not been exercising as much and intensively as she knows she [...] disease, S/P myocardial infarction-anterior, VF arrest with [place], NSVT immed after [place], Lat [place] 1980, Ant [place] (Vfib) 10-13 Cath-PTCA LAD(too tortuous for stent), [...] always; Occupation - retired; Place of - [place]; _ REVIEW OF SYSTEMS GENERAL denies recent weight [...] Left arm, large cuff 140/78 Retaken by STREETCAR REPAIRER-after resting 5 mins Pulse- 52.00/min. Weight- 228.60 [...] was 150/80. When rechecked by myself 5 minuteslater after having the patient rest for 5 minutes, it was 140/78. I do not feel that this is adequate control of her blood pressure and therefore per Dr. Martinez's plan have changed her from Zestoretic to Lotensin 20mg a day. I will have her return to our clinic in three weeks time for reassessmentof her blood pressure. If her blood pressure remains elevated at that time, we can either add in Dyazide for better control of blood pressure or Aldactone if necessary. 2. Coronary artery disease. This is currently stable. The patient denies any signs or symptoms to suggest ischemia, significant arr hythmia or heart failure. Her other medications have remained unchanged. 3. Hyperlipidemia. This isbeing addressed by having a repeat NMR profile [...] that time. Again, I will see her in three weeks time. TODAYS ORDERS 1. Return Visit 3 weeks 2. Basic Metabolic Panel 3 weeks Marcelo Diaz NP Electronically signed by [facility] [employer] Data Conversion at 09/25/2013 6:26 AM CDT documented in this encounter Plan of Treatment Not on file documented as of this encounter Visit Diagnoses Not on filedocumented in this encounter Care Teams Floor Helper Relationship Specialty Start Date End Date Alicia Nice MD PCP - General Family Practice 08/25/12 08/22/15 Les Fair MD PCP - General Family Practice 08/23/15 12/29/15 [facility] [address] [place] [address] PCP - General 12/30/15 10/15/16 None PCP - General 10/16/16 01/10/[address] [facility] [address] [place] [address] PCP - General 04/27/17 Guillermo Martinez MD [address] [facility] [address] [place] [id number] Cardiology 11/15/17 documented as of this encounter
--- OUTSIDE RECORDS SUMMARY | 2023-12-10 14:31 | XMS_ITS | Encounter Summary ---
Author Organization [place] Address [address] [facility] [facility] [place] [address] Care Team Providers Care Special Technical Operations Officer Name Role Phone Shawn Nice MD Primary Care Provider Unavailab Les Reeves MD Primary Care Provider [facility] Primary Care Provide r None Primary Care Provider UnavailAllyson Feliciano Primary Care Provider [phone] Guillermo Martinez MD Unavailable [phone] Encounter Details Date Type Department Care Team (Late st Contact Info) Description 04/29/2003 Office Visit-[facility] [address] [place] [address] Unknown, MD Yovany Social History Tobacco Use Types Packs/Day Years Used Date Smoking Tobacco: Never Assessed Sex and Gender Information Value Date Recorded Sex Assigned at Not on file Gender Identity Not on file Sexual Orientation Not on file documented as of this encounter Progress Notes * Unknown, MD Yovany - 05/04/2003 11:44 AM CST Progress Note Created by: Guillermo Martinez M.D. DATE: 04/29/2003 FIDELIA LUNDBERG DATE OF : 1935 AGE: [age] years old Referring Physician: SHAWN NICE CURRENT DIAGNOSES 1. - CAD, 414.00 2. Hypertension-Essential (Benign), 401.1 3. - Hyperlipidemia, 272.4 4. Status post-PTCA, v45.82 5. Obesity-(<LT>100 ), 278.00 6. [place]-Acute Anterior, 410.11 7. Ventricular tachycardia, 427.1 ALLERGIES [...] CHIEF COMPLAINTS F/u HISTORY OF PRESENT ILLNESS Fidelia returns in follow up of her coronary disease. She reports no heart symptoms since we last saw her. Her NMR lipid profile preliminary came back excellent and she is well within goal. Her nuclear stress test shows old lateral infarct, a small anterior infarct, no ischemia and no ventricular tachycardia. 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 She had an anterior infarct approximately six months ago complicated by ventricular fibrillation and cardiac arrest. She had a very tortuous left anterior descending artery and only PTCA could be performed, no stenting. She had moderate multivessel disease, which we are treating medically. We commented that if she developed progressive left anterior descending disease then she will need to go to bypass surgery.Fortunately, as I mentioned, she has no symptoms and her stress test shows no ischemia. PAST HISTORY Past Medical Illnesses: hyperlipidemia, hypertension, obesity, cellulitis Past Cardiac Illnesses: coronary artery disease, S/P myocardial infarction-anterior, VF arrest with [place], NSVT immed after [place], Lat [place] 1980, Ant [place] (Vfib) 10-13 Cath-PTCA LAD(too tortuous for stent), [...] potassium was normal. She is going to [place] for the winter. We will see her [...] on filedocumented in this encounter Care Teams Special Technical Operations Officer Relationship Specialty Start Date End Date Shawn Nice MD PCP - General Family Practice 08/25/12 08/22/15 Les Fair MD PCP - General Family Practice 08/23/15 12/29/15 [facility] [place] [address] [place], [place] [phone] PCP - General 12/30/15 10/15/16 None PCP - General 10/16/16 01/10/17 Allyson Pool [facility] [address] [place] [address] PCP - General 04/27/17 Guillermo Martinez MD [address] [facility] [address] [place] [address] Cardiology 11/15/17 documented as of this encounter
--- OUTSIDE RECORDS SUMMARY | 2023-12-10 14:31 | XMS_ITS | Encounter Summary ---
Author Organization [place] Address [address] [facility] [place] [address] Care Team Providers Care Wholesale Parts Salesperson Name Role Phone Alicia Nice MD Primary Care Provider Unavailab Les Reeves MD Primary Care Provider [phone] [facility], [facility] Primary Care Provide r None Primary Care Provider UnavailAllyson Feliciano Primary Care Provider [phone] Guillermo Martinez MD Unavailable [phone] Encounter Details Date Type Department Care Team (Late st Contact Info) Description 04/16/2008 Office Visit-[facility] [address] [place] [id number] Jesús Almanza APRN SINTERING PRESS OPERATOR NO INFO AVAILABLE 03/01/2022 Social History [...] old Referring Physician: ALICIA NICE Referring Clinic: [facility] CURRENT DIAGNOSES 1. Hypertension-Essential (Benign), 401.1 2. - Hyperlipidemia, 272.4 3. Status post-PTCA, V45.82 4. [place]-Acute Anterior, 410.11 5. Ventricular tachycardia, 427.1 6. [...] follow-up on her lipid panel and her blood pressure. She has known coronary disease with her first WA 25 years ago with a very strong family history of heart disease. 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 She had an anterior WA in '03 with a V-fib cardiac arrest. [...] as well. Crestor is more cost prohibitive but I have sampled her and she will be out of the donut hole. She has had cellulitis in her lower extremities with vein stripping so edema is chronic which looks pretty controlled today. She denies any cardiac symptoms and is planning to leave for the winter months right before [place]. PAST HISTORY Past Medical Illnesses: hyperlipidemia, hypertension, obesity, cellulitis, benign breast bx, lung nodule (followed by CT per pmd), varicose vein Past Cardiac Illnesses: coronary artery disease, S/P myocardial infarction-anterior, VF arrest with [place], NSVT immed after [place], Lat [place] 1980, Ant [place] (Vfib) 6-03 Cath-PTCA LAD(too tortuous for stent), 100%Lcx-OM, 50-60% [...] of - [place]; REVIEW OF SYSTEMS GENERAL denies recent weight [...] Metoprolol Tartrate 50 Mg 1/2 tablet in amand 1 tablet in pm #135 Physician Order IMPRESSIONS/PLAN 1. Coronary artery disease with history of cardiac arrest, moderate LAD disease. She will have a nuclear test in October and see Dr. Martinez back. We will continue her same medications for risk factor prevention. 2. Dyslipidemia improved on Crestor therapy. I would continue the same dose. She is goingto attempt a few pounds of weight loss, more exercise and less fat in her diet. She says that her diet was a bit off when she was going through Paxil withdrawal. I will repeat her lipids in six months. 3. Hypertension poorly controlled. I am going to change [...] on filedocumented in this encounter Care Teams Wholesale Parts Salesperson Relationship Specialty Start Date End Date Alicia Nice MD PCP - General Family Practice 08/25/12 08/22/15 Les Fair MD PCP - General Family Practice 08/23/15 12/29/15 [facility] [address] [place] [id number] PCP - General 12/30/15 10/15/16 None PCP - General 10/16/16 01/10/17 Allyson Pool PA [facility] [address] [place] [place] [address] PCP - General 04/27/17 Guillermo Martinez MD [address] [place] [address] Cardiology 11/15/17 documented as of this encounter
--- OUTSIDE RECORDS SUMMARY | 2023-12-10 14:31 | XMS_ITS | Encounter Summary ---
Author Organization [place] Address [address] [facility] [place] [address] Care Team Providers Care Asp Developer Name Role Phone Shawn Nice MD Primary Care Provider Unavailab Les Reeves MD Primary Care Provider [phone] [facility] Primary Care Provide r None Primary Care Provider UnavailAllyson Feliciano Primary Care Provider [phone] Guillermo Martinez MD Unavailable Encounter Details Date Type Department Care Team (Late st Contact Info) Description 12/07/2003 Office Visit-[facility] [address] [place] [address] Unknown, MD Yovany Social History Tobacco Use Types Packs/Day Years Used Date Smoking Tobacco: Never Assessed Sex and Gender Information Value Date Recorded Sex Assigned at Not on file Gender Identity Not on file Sexual Orientation Not on file documented as of this encounter Progress Notes * Unknown, MD Yovany - 12/10/2003 10:06 AM CDT Progress Note Created by: Viridiana Lloyd N.P. DATE: 12/07/2003 FIDELIA LUNDBERG DATE OF : 1935 AGE: [age] years old Referring Physician: SHAWN NICE Referring Clinic: [facility] CURRENT DIAGNOSES 1. - CAD, 414.00 2. Hypertension-Essential (Benign), 401.1 3. - Hyperlipidemia, 272.4 4. Status post-PTCA, v45.82 5. Obesity-(<LT>100 ), 278.00 6. [place]-Acute Anterior, 410.11 7. Ventricular tachycardia, 427.1 ALLERGIES [...] delightful 68-year-old female who presents to the [facility] today for a blood pressure check. [...] or so. She was placed on Lotrel 5mg/20mgand taken off Lotensin. Fortunately this has made a significant improvement in her blood pressure control. She does tell me that she had [...] disease, S/P myocardial infarction-anterior, VF arrest with [place], NSVT immed after [place], Lat [place] 1980, Ant [place] (Vfib) 10-13 Cath-PTCA LAD(too tortuous for stent), [...] - retired; Place of - [place]; _ REVIEW OF SYSTEMS GENERAL weight gain INTEGUMENTARY [...] not decided if she is going to stay on Niaspan or switch to Slo-Niacin. She will [...] on filedocumented in this encounter Care Teams Asp Developer Relationship Specialty Start Date End Date Shawn Nice MD PCP - General Family Practice 08/25/12 08/22/15 Les Fair MD PCP - General [facility] 08/23/15 12/29/15 [facility] [address] [facility] [place] [place] [phone] PCP - General 12/30/15 10/15/16 None PCP - General 10/16/16 01/10/17 Allyson Pool PA [facility] [address] [address] [place] [id number] PCP - General 04/27/17 Guillermo Martinez MD [address] [facility] [address] [place] [id number] Cardiology 11/15/17 documented as of this encounter
--- OUTSIDE RECORDS SUMMARY | 2023-12-10 14:31 | XMS_ITS | Encounter Summary ---
Author Organization [place] Address [address] [place] [address] Care Team Providers Care Health Evaluator Name Role Phone Shawn Nice MD Primary Care Provider Unavailab Les Reeves MD Primary Care Provider [phone] [facility], [facility] Primary Care Provide r None Primary Care Provider UnavailAllyson Feliciano Primary Care Provider [phone] Guillermo Martinez MD Unavailable [phone] Encounter Details Date Type Department Care Team (Late st Contact Info) Description 03/10/2003 Office Visit-[facility] [address] [place] [address] Unknown, MD Yovany Social History Tobacco Use Types Packs/Day Years Used Date Smoking Tobacco: Never Assessed Sex and Gender Information Value Date Recorded Sex Assigned at Not on file Gender Identity Not on file Sexual Orientation Not on file documented as of this encounter Progress Notes * Unknown, MD Yovany - 03/12/2003 7:23 AM CST Progress Note Created by: Marcelo Diaz NP DATE: 03/10/2003 FIDELIA LUNDBERG DATE OF : 1935 AGE: [age] years old Referring Physician: SHAWN NICE CURRENT DIAGNOSES 1. Hypertension-Essential (Benign), 401.1 2. Status post-PTCA, v45.82 3. - Hyperlipidemia, 272.4 4. WV-Acute Anterior, 410.11 5. Ventricular tachycardia, 427.1 6. [...] q.d. CHIEF COMPLAINTS HISTORY OF PRESENT ILLNESS Fidelia Lundberg is a very pleasant 67-year-old female who is here today for follow-up regarding her hypertension. She has a past medical history significant for lateral wall myocardial infarction 20 years ago. Approximately 5 months ago she suffered an anterior wall myocardial infarction complicated by ventricular fibrillation/cardiac arrest. She was brought to the cardiac catheterization lab and underwent balloon angioplasty of her LAD. There is moderate disease proximally and severe mid-vessel narrowing which was the infarct vessel. However, this vessel had a significant amount of tortuosity and therefore a stent could not be placed. She had a reduced ejection fraction at that time of 35-40%. The patient then had some nonsustained ventricular tachycardia after her procedure which gradually decreased in frequency over the time she was hospitalized. Follow-up Holter monitor done on an outpatient basis after her discharge demonstrated some PACs and very brief SVT but no ventricular tachyc ardia. Her Holter was reviewed with Dr. Billings [...] not well controlled on the Zestoretic. Lotrel was not used because apparently the patient had some [...] total of approximately 30 pounds since her hospitalization. She has made a number of changes in her life style including getting regular exercise as wellas portion size control. She is eating less than she was eating previously. She is also trying to watch what it is that she eats. The patient is feeling well at this time. She is not having any angina or any type of chest pain orpressure. She denies any shortness of breath or dyspnea on exertion. She also denies any problems with orthopnea or PND. The remainder of this patient's past medical history and review of systems are noted below. PAST HISTORY Past Medical Illnesses: hyperlipidemia, hypertension, obesity, cellulitis Past Cardiac Illnesses: coronary artery disease, S/P myocardial infarction-anterior, VF arrest with WV, NSVT immed after WV, Lat WV 1980, Ant WV (Vfib) 10-13 Cath-PTCA [...] always; Occupation - retired; Place of - [place]; _ REVIEW OF SYSTEMS GENERAL cold INTEGUMENTARY denies [...] p.o. q.d., #30 IMPRESSIONS/PLAN 1. Hypertension. Unfortunately Fidelia's blood pressure remains elevated at 160/80 and a pulse of 54beats per minute. I have started her on Dyazide 25/37.5 in addition to her Lotensin at 20mg and hermetoprolol at 50mg 1/2 tab b.i.d. I will [...] stable. The patient denies any signs or sym ptoms to suggest ischemia, significant arrhythmia, or heart failure. She is undergoing a repeat stress test in six weeks time to look for any progression of her disease. She was encouraged in the interim to contact us should she develop any exertional angina or other concerning symptoms. Obviously we need to keep a close eye on this patient's potassium as apparently during her arrest she did havea low potassium. At this point she is not on any type of potassium replacement. TODAYS ORDERS 1. Basic Metabolic Panel 1 week Marcelo Diaz NP documented in this encounter Plan of Treatment Not on file documented as of this encounter Visit Diagnoses Not on filedocumented in this encounter Care Teams Health Evaluator Relationship Specialty Start Date End Date Shawn Nice MD PCP - General Family Practice 08/25/12 08/22/15 Les Fair MD PCP - General Family Practice 08/23/15 12/29/15 [facility] [address] [place] [address] PCP - General 12/30/15 10/15/16 None PCP - General 10/16/16 01/10/17 Allyson Pool PA [facility] [address] [place] [address] PCP - General 04/27/17 Gulilermo Martinez MD [address] [facility] [address] [place] [phone] Cardiology 11/15/17 documented as of this encounter
--- OUTSIDE RECORDS SUMMARY | 2023-12-10 14:31 | XMS_ITS | Encounter Summary ---
Author Organization [place] Address [address] [place] [address] Care Team Providers Care Transplanter Name Role Phone Alicia Nice MD Primary Care Provider Unavailab Les Reeves MD Primary Care Provider [phone] [facility], [facility] Primary Care Provide r None Primary Care Provider UnavailAllyson Feliciano Primary Care Provider Guillermo Martinez MD Unavailable [phone] Encounter Details Date Type Department Care Team (Late st Contact Info) Description 01/14/2003 Office Visit-[facility] [address] [place] [address] Unknown, MD Yovany Social History Tobacco Use Types Packs/Day Years Used Date Smoking Tobacco: Never Assessed Sex and Gender Information Value Date Recorded Sex Assigned at Not on file Gender Identity Not on file Sexual Orientation Not on file documented as of this encounter Progress Notes * Unknown, MD Yovany - 01/19/2003 9:25 AM CDT Progress Note Created by: Guillermo Martinez M.D. DATE: 01/14/2003 WAQAR LUNDBERG DATE OF : 1935 AGE: [age] years old Referring Physician: ALICIA NICE CURRENT DIAGNOSES 1. - CAD, 414.00 2. - Hyperlipidemia, 272.4 3. Status post-PTCA, v45.82 4. Obesity-(<LT>100 ), 278.00 5. Hypertension-Essential (Benign), 401.1 6. SD-Acute Anterior, 410.11 7. Ventricular tachycardia, 427.1 ALLERGIES [...] of Hypertension-Essential (Benign) HISTORY OF PRESENT ILLNESS Waqar Lundberg returns for follow-up of her multiple cardiac problems. This was a rather prolonged, greater than 45 minute visit because of a number of outstanding issues. This patient had a remote lateral myocardial infarction some 20 years ago. She had some unaddressed risk factors including lipids and blood pressure, etc. Approximately three months ago she had an anterior wall SD complicated bya V-fib cardiac arrest. She was brought to [...] proximally and a severe mid-vessel narrowing. This wasthe infarct vessel. Because of marked tortuosity, however, a stent could not be placed. Only balloon angioplasty. She had a reduced ejection fraction. The patient had some nonsustained ventricular tachycardia right after her myocardial infarction. She was seen by the electrophysiology service. She had no further ventricular tachycardia and, in fact, a Holter monitor done as an outpatient showed some PACs and very brief SVT, but no ventricular tachycardia. It was felt at this point that she did not need EP study or defibrillator. Since her angioplasty, she has absolutely no angina. We reviewedher stress test done a few weeks ago. It shows her previous anterior and lateral infarct, but no ischemia which is quite reassuring. Her lipid profile has been abnormal and the last lipid check in our office really does not make any sense. I am going to recommend that she get an NMR lipid profile in approximately three months. PAST HISTORY Past Medical Illnesses: hyperlipidemia, hypertension, obesity, cellulitis Past Cardiac Illnesses: coronary artery disease, S/P myocardial infarction-anterior, VF arrest with SD, NSVT immed after SD, Lat SD 1980, Ant SD (Vfib) 10-13 Cath-PTCA [...] on some beta rosy if at all possible because of her history of ventricular tachycardia, her ischemic cardiomyopathy and her blood pressure. The other issue is that her blood pressure is highly variable, running from normal to very high with minimal excitement. I am going to switch her from lisinopril to Zestoretic, however, we have to be very careful in this patient that her potassium level remains firmly in the normal range. Whensamuel had her V-fib arrest with her heart attack, her potassium level was slightly low, possibly because of the Zestoretic. I am using a lower dose of the diuretic here, however. If her blood pressure does not remain controlled on the Zestoretic, rather than increase the dose which would increase thediuretic, I would probably switch her fro Zestril and Zestoretic to Lotensin and then add Dyazide or Aldactone if a diuretic is not needed. One concern I have is that she has chronic peripheral edemafrom her varicose vein surgery and the Norvasc component of the Lotrel may make that worse, but I do want her blood pressure well controlled given that she has rather severe three-vessel coronary disease. We will repeat a stress test in three months. If it shows any new ischemia, she will have a repeat heart catheterization and will need to go onto bypass surgery. I would not recommend repeat percutaneous intervention of the LAD since we know it cannot be stented. The patient is working aggressively on diet and exercise. She has actually lost 20 pounds which is to her good credit. I will havethe patient come back for electrolytes in three weeks and see our nurse practitioner in one month for follow-up to review those values. TODAYS ORDERS 1. Basic Metabolic Panel 3 weeks 2. NMR LipoProfile 3 months 3. Treadmill Nuclear Study 3 months 4. Return Visit 4 months f/u bp, nmr, nuc gxt, Guillermo Martinez M.D. <B><FONT FACE=System> cc:Alicia Nice M.D. documented in this encounter Plan of Treatment Not on file documented as of this encounter Visit Diagnoses Not on filedocumented in this encounter Care Teams Transplanter Relationship Specialty Start Date End Date Alicia Nice MD PCP - General Family Practice 08/25/12 08/22/15 Les Fair MD PCP - General Family Practice 08/23/15 12/29/[address] [address] PCP - General 12/30/15 10/15/16 None PCP - General 10/16/16 01/10/17 Allyson Pool PA [facility] [address] [place] [address] PCP - General 04/27/17 Guillermo Martinez MD [address] [place] [phone] Cardiology 11/15/17 documented as of this encounter
--- OUTSIDE RECORDS SUMMARY | 2023-12-10 14:31 | XMS_ITS | Encounter Summary ---
Author Organization [place] Address [address] [facility] [place] [address] Care Team Providers Care Internet And E Business Project Manager Name Role Phone Shawn Nice MD Primary Care Provider Unavailab Les Reeves MD Primary Care Provider [facility], [facility] Primary Care Provide r None Primary Care Provider UnavailAllyson Feliciano Primary Care Provider Guillermo Martinez MD Unavailable [phone] Encounter Details Date Type Department Care Team (Late st Contact Info) Description 01/18/2009 Office Visit-[address] [place] [address] [place] [address] [place] [address] [address] [place] [address] Social History Tobacco Use Types Packs/Day Years Used Date Smoking Tobacco: Never Assessed Sex and Gender Information Value Date Recorded Sex Assigned at Not on file Gender Identity Not on file Sexual Orientation Not on file documented as of this encounter Progress Notes * Guillermo Martinez MD - 01/20/2009 12:38 PM CDT Progress Note Created by: Guillermo Martinez M.D. DATE: 01/18/2009 FIDELIA LUNDBERG DATE OF : 1935 AGE: [age] years old Referring Physician: SHAWN NICE Referring Clinic: [facility] CURRENT DIAGNOSES 1. - CAD, 414.00 2. Hypertension-Essential (Benign), 401.1 3. - Hyperlipidemia, 272.4 4. Status post-PTCA, V45.82 5. Obesity-(<LT>100 ), 278.00 6. PR-Acute Anterior, 410.11 7. Ventricular tachycardia, 427.1 ALLERGIES [...] today since she had an office visit scheduledroutinely with me. Her cholesterol numbers really are not any different than they were three weeks ago. Rather than increase the Crestor further I am simply going to wait and have her come back in three months. We will redo a cholesterol check at that time. She reports absolutely no cardiovascular s ymptoms at this time; specifically, no chest pain, shortness of breath, dizziness, etc. We will seeher back in three months. Total consult time: 15 minutes, all counseling. PAST HISTORY Past Medical Illnesses: hyperlipidemia, hypertension, obesity, cellulitis, benign breast bx, lung nodule (followed by CT per pmd), varicose vein Past Cardiac Illnesses: coronary artery disease, S/P myocardial infarction-anterior, VF arrest with [place], NSVT immed after [place], Lat [place] 1980, Ant [place] (Vfib) 10-13 Cath-PTCA LAD(too tortuous for stent), [...] on filedocumented in this encounter Care Teams Internet And E Business Project Manager Relationship Specialty Start Date End Date Shawn Nice MD PCP - General Family Practice 08/25/12 08/22/15 Les Fair MD PCP - General Family Practice 08/23/15 12/29/15 [facility] [address] [place] [address] PCP - General 12/30/15 10/15/16 None PCP - General 10/16/16 01/10/17 Allyson Pool PA [facility] [address] [place] [address] PCP - General 04/27/17 Guillermo Martinez MD [address] [facility] [address] [place] [phone] Cardiology 11/15/17 documented as of this encounter
--- OUTSIDE RECORDS SUMMARY | 2023-12-10 14:31 | XMS_ITS | Encounter Summary ---
Author Organization [place] Address [address] [facility] [place] [address] Care Team Providers Care Political Science Professor Name Role Phone Shawn Nice MD Primary Care Provider Unavailab Les Reeves MD Primary Care Provider [phone] [facility], [facility] Primary Care Provide r None Primary Care Provider UnavailAllyson Feliciano Primary Care Provider Guillermo Martinez MD Unavailable [phone] Encounter Details Date Type Department Care Team (Late st Contact Info) Description 10/28/2006 Office Visit-[address] [place] [address] [place] [address] [place] [address] [address] [place] [address] Social History Tobacco Use Types Packs/Day Years Used Date Smoking Tobacco: Never Assessed Sex and Gender Information Value Date Recorded Sex Assigned at Not on file Gender Identity Not on file Sexual Orientation Not on file documented as of this encounter Progress Notes * Guillermo Martinez MD - 10/29/2006 11:07 AM CDT Progress Note Created by: Guillermo Martinez M.D. DATE: 10/28/2006 FIDELIA LUNDBERG DATE OF : 1935 AGE: [age] years old Referring Physician: SHAWN NICE Referring Clinic: [facility] CURRENT DIAGNOSES 1. Hypertension-Essential (Benign), 401.1 [...] years ago in the circumflex territory. We met her in 2002 when she had an anterior wall infarct complicated by V fib cardiac arrest. Heart cathshowed a chronically occluded circumflex marginal and severe LAD disease. We angioplastied the LAD.It was too tortuous to place a stent at that point. Her right coronary artery has 50% narrowing. She did have a followup angiogram in 2005 which showed stable anatomy (a stress test that showed some anterior ischemia). The patient has done well. I do notice that her blood pressure is running high normal. She states at her other doctor's office it was 138 systolic. We get between 140-146 systolic.Given that she has extensive disease, I think this is not enough blood pressure control. I am goingto increase her Lotrel from 5/20 up to 5/40. Interesting to note, however, is she is on generic Lotrel and one has to wonder if that might be part of the issue. Her lipids were reviewed today. Her HDL is 50, her LDL is 73, and her triglycerides are in the 80s. This is acceptable. She was seen in [facility] for dizziness which sounds like inner ear. She was prescribed what sounds like Antivert. She has had no further recurrence of that problem. PAST HISTORY Past Medical Illnesses: hyperlipidemia, hypertension, obesity, cellulitis, benign breast bx, lung nodule (followed by CT per pmd), varicose vein Past Cardiac Illnesses: coronary artery disease, S/P myocardial infarction-anterior, VF arrest with [place], NSVT immed after [place], Lat [place] 1980, Ant [place] (Vfib) 10-13 Cath-PTCA [...] - [place]; REVIEW OF SYSTEMS GENERAL weight gain, weight [...] her to get exercise, although she had someback problems which are limiting her ability to [...] on filedocumented in this encounter Care Teams Political Science Professor Relationship Specialty Start Date End Date Shawn Nice MD PCP - General Family Practice 08/25/12 08/22/15 Les Fair MD PCP - General Family Practice 08/23/15 12/29/15 [facility] [address] [place], [place] [id number] PCP - General 12/30/15 10/15/16 None PCP - General 10/16/16 01/10/17 Allyson Pool PA [facility] [address] [place] [address] PCP - General 04/27/17 Guillermo Martinez MD [address] [facility] [address] [place] [phone] Cardiology 11/15/17 documented as of this encounter
--- OUTSIDE RECORDS SUMMARY | 2023-12-10 14:31 | XMS_ITS | Encounter Summary ---
Author Organization [place] Address [address] [facility] [place] [address] Care Team Providers Care Masonry Inspector Name Role Phone Alicia Nice MD Primary Care Provider Unavailab Les Reeves MD Primary Care Provider [phone] [facility] Primary Care Provide r None Primary Care Provider UnavailAllyson Feliciano Primary Care Provider [phone] Guillermo Martinez MD Unavailable [phone] Encounter Details Date Type Department Care Team (Late st Contact Info) Description 02/17/2010 Office Visit-[facility] Heart [address] [place] [phone] Jesús Almanza APRN [employer] NO INFO AVAILABLE 03/01/2022 Social History Tobacco Use Types Packs/Day Years Used Date Smoking Tobacco: Never Assessed Sex and Gender Information Value Date Recorded Sex Assigned at Not on file Gender Identity Not on file Sexual Orientation Not on file documented as of this encounter Progress Notes * Jesús Almanza - 02/21/2010 1:21 PM CDT Progress Note Created by: Jesús Almanza, N.P. DATE: 02/17/2010 WAQAR LUNDBERG DATE OF : 1935 AGE: [age] years old Referring Physician: ALICIA NICE Referring Clinic: [facility] CURRENT DIAGNOSES 1. - CAD, [...] A left anterior descending wave wire showed afractional flow reserve of 0.9 in her left anterior descending. There have historically been discrepancies between her left ventricular function and left ventriculogram and nuclear testing. Her last echo showed an ejection fraction of 55%. Nuclear testing causes her a great amount of anxiety. She has had statin intolerances in the past due to myalgias. She is currently on Crestor at 40 mg aday, which she is tolerating very well, much [...] but down 11 pounds, in fact down 18pounds from just over a year ago. She is struggling with some reflux and recently underwent an endoscopy. She is awaiting those results to determine if she needs proton-pump inhibitor or H2 rosy. She has no cardiac symptoms to speak of and minimal [...] 2008 Nuclear Results: 11/18 Defect.-extensive anterior,apical+anteroseptal non-transmural PR in LAD wi/significant,mod.corina-infarct isch.Second defect.- extensive lateral PR in the CFX artery w/no reversible isch.Third [...] - [place]; REVIEW OF SYSTEMS GENERAL weight gain, 2 [...] 104/57Sitting, Left arm, large cuff 96/60Retaken by DEMURRAGE AGENT/PA Pulse- 78.00/min. Weight- 230.00 lbs. Height- 65.00 [...] on an increase reversibility on a nuclear testwas done in November of 2008, showing no changes in her anatomy. She has no clinical symptoms. I will have her see Dr. Martinez back in the spring, and I would ask him to determine which modality would be appropriate to follow her coronary disease or if we should go by symptomology alone. 2. Normal ejection fraction by echo. 3. Hypertension. In fact, tending [...] to see us in the spring or soonershould any symptoms occur in the interim. TODAYS ORDERS 1. F/U with Guillermo Martinez MD 6 months-HIEFETZ ONLY PLEASE NOT DEMURRAGE AGENT 2. Lipid profile/ALT 6 months 3. BMP 6 months Jesús Almanza, N.P. documented in this encounter Plan of Treatment Not on file documented as of this encounter Visit Diagnoses Not on filedocumented in this encounter Care Teams Masonry Inspector Relationship Specialty Start Date End Date Alicia Nice MD PCP - General Family Practice 08/25/12 08/22/15 Les Fair MD PCP - General Family Practice 08/23/15 12/29/15 [place] [address] PCP - General 12/30/15 10/15/16 None PCP - General 10/16/16 01/10/17 Allyson Pool PA [facility] [address] [place] [address] PCP - General 04/27/17 Guillermo Martinez MD [address] [place] [phone] Cardiology 11/15/17 documented as of this encounter
--- OUTSIDE RECORDS SUMMARY | 2023-12-10 14:31 | XMS_ITS | Encounter Summary ---
Author Organization [place] Address [address] [facility] [place] [address] Care Team Providers Care Assistant Associate Professor Name Role Phone Alicia Nice MD Primary Care Provider Unavailab Les Reeves MD Primary Care Provider [facility] Primary Care Provide r None Primary Care Provider UnavailAllyson Feliciano Primary Care Provider [phone] Guillermo Martinez MD Unavailable [phone] Encounter Details Date Type Department Care Team (Late st Contact Info) Description 04/22/2006 Office Visit-[facility] Heart [address] [place] [phone] Jesús Almanza APRN HIDE AND SKIN FLESHING MACHINE OPERATOR NO INFO AVAILABLE 03/01/2022 Social History Tobacco Use Types Packs/Day Years Used Date Smoking Tobacco: Never Assessed Sex and Gender Information Value Date Recorded Sex Assigned at Not on file Gender Identity Not on file Sexual Orientation Not on file documented as of this encounter Progress Notes * Jesús Almanza - 04/27/2006 8:38 AM CST Progress Note Created by: Jesús Almanza, N.P. DATE: 04/22/2006 WAQAR LUNDBERG DATE OF : 1935 AGE: [age] years old Referring Physician: ALICIA NICE Referring Clinic: [facility] CURRENT DIAGNOSES 1. Hypertension-Essential (Benign), 401.1 2. - Hyperlipidemia, 272.4 3. Status post-PTCA, V45.82 4. CO-Acute Anterior, 410.11 5. Ventricular tachycardia, 427.1 6. [...] occluded. The RCA has a 50% to 60% stenosis. Nuclear stress testing this year revealed a [...] cholesterol: 139. HDL: Holding at 50. LDL: 70.Her previously HDL on Lipitor with niacin was 54. She exercises on an intermittent basis. She continues to be overweight. Her blood pressure today is slightly elevated. However, she has not taken herLotrel as she thought she had to hold her medicines for her lipid profile. Her BMI is 40. She is otherwise without complaints today. She is on aspirin and Plavix likely lifelong. PAST HISTORY Past Medical Illnesses: hyperlipidemia, hypertension, obesity, cellulitis, benign breast bx Past Cardiac Illnesses: coronary artery disease, S/P myocardial infarction-anterior, VF arrest with CO, NSVT immed after CO, Lat CO 1980, Ant CO (Vfib) 10-13 Cath-PTCA [...] - lives with ; Place of - [place]; REVIEW OF SYSTEM[employer] GENERAL weight gain, weight [...] Crestor alone at 10 mg a day. Hermyalgias have subsided. She may likely need prior authorization for this medication. I have asked her to check with her insurance company and let me know who I can contact to get this medicine approved. I told her that we [place]heck [place] her HDL will remain steady and she [...] [place]. She will see Dr. Martinez at that point. I have ordered another [...] filedocumented in this encounter Care Teams Assistant Associate Professor Relationship Specialty Start Date End Date Alicia Nice MD PCP - General Family Practice 08/25/12 08/22/15 Les Fair MD PCP - General Family Practice 08/23/15 12/29/15 [facility] [address] [place], [place] [id number] PCP - General 12/30/15 10/15/16 None PCP - General 10/16/16 01/10/17 Allyson Pool [facility] [address] [place] [id number] PCP - General 04/27/17 Guillermo Martinez MD [address] [facility] [address] [place] [phone] Cardiology 11/15/17 documented as of this encounter
--- OUTSIDE RECORDS SUMMARY | 2023-12-10 14:31 | XMS_ITS | Encounter Summary ---
Author Organization [place] Address [address] [facility] [place] [address] Care Team Providers Care Fitter / Welder Name Role Phone Alicia Nice MD Primary Care Provider Unavailab Les Reeves MD Primary Care Provider [phone] [facility], [facility] Primary Care Provide r None Primary Care Provider UnavailAllyson Feliciano Primary Care Provider [phone] Guillermo Martinez MD Unavailable [phone] Encounter Details Date Type Department Care Team (Late st Contact Info) Description 12/24/2008 Office Visit-[facility] Heart [address] [place] [phone] Jesús Almanza APRN SLICING MACHINE FEEDER NO INFO AVAILABLE 03/01/2022 Social History Tobacco Use Types Packs/Day Years Used Date Smoking Tobacco: Never Assessed Sex and Gender Information Value Date Recorded Sex Assigned at Not on file Gender Identity Not on file Sexual Orientation Not on file documented as of this encounter Progress Notes * Jesús Almanza - 01/03/2009 9:25 PM CDT Progress Note Created by: Jesús Almanza, N.P. DATE: 12/24/2008 WAQAR LUNDBERG DATE OF : 1935 AGE: [age] years old Referring Physician: ALICIA NICE Referring Clinic: [facility] CURRENT DIAGNOSES 1. - CAD, 414.00 2. Hypertension-Essential (Benign), 401.1 3. - Hyperlipidemia, 272.4 4. Status post-PTCA, V45.82 5. Obesity-(<LT>100 ), 278.00 6. NJ-Acute Anterior, 410.11 7. Ventricular tachycardia, 427.1 ALLERGIES [...] with a strong family history of coronary disease and she herself had her first NJ 25 years ago. She has lost many family members to this disease. Her cardiac anatomy is outlined in detail in my note in GEMMS data, a Cardiology consultation from 12/01/08. At that point her nuclear stress test appeared as if she had an increased amount of reversibil ity in the LAD distribution and a second defect. Based on this and her known coronary disease, we sent her to the coronary angiography lab December 02, 2008. I am happy to report that she showed no progression of her disease. An LAD WaveWire showed a fractional flow reserve of 0.9. She does have ongoing multivessel disease, but all was stable. The reader is referred to the body of that report for thedetails. There has historically been some discrepancy between [...] She was having some buttocks pain last visitthat has also resolved, and overall she states she is feeling the best that she has in quite some time. She stopped her Paxil over this past year, but her depression became quite significant and she wentback on it and is doing much better now. PAST HISTORY Past Medical Illnesses: hyperlipidemia, hypertension, obesity, cellulitis, benign breast bx, lung nodule (followed by CT per pmd), varicose vein Past Cardiac Illnesses: coronary artery disease, S/P myocardial infarction-anterior, VF arrest with NJ, NSVT immed after NJ, Lat NJ 1980, Ant NJ (Vfib) 6- Cath-PTCA LAD(too tortuous for stent), [...] - [place]; REVIEW OF SYSTEMS GENERAL weight loss of [...] multivessel in nature. She has undergone previous interventionsand her recent nuclear stress test appeared as if her LAD had progressed. This turned out not to bethe case, and I am delighted for her. I will continue aggressive medical management and she will see Dr. Martinez in January. I will let him determine when her next nuclear test should be performed.2. Dyslipidemia. Given her extensive heart disease, I did increase Crestor to 20 mg q.d., which shehas not started yet. She has a history of myalgias on Lipitor. We will repeat her lipid profile in January. If she does not tolerate this dose, I would think about adding Crestor. 3. Hypertension, tsering arkedly improved with the switch to labetalol over this last year. 4. Anxiety/depression, being managed by Dr. Nice, stable on Paxil. Discrepancy in the ejection fractions has resolved. It is normalnow both by LVgram and nuclear stress testing. It has been a pleasure to see Waqar in followup. We will see her back in early January. TODAYS ORDERS 1. Lipid profile/ALT 3 weeks Jesús Almanza, N.P. documented in this encounter Plan of Treatment Not on file documented as of this encounter Visit Diagnoses Not on filedocumented in this encounter Care Teams Fitter / Welder Relationship Specialty Start Date End Date Alicia Nice MD PCP - General Family Practice 08/25/12 08/22/15 Les Fair MD PCP - General Family Practice 08/23/15 12/29/15 [facility] [address] [place] [address] PCP - General 12/30/15 10/15/16 None PCP - General 10/16/16 01/10/17 Allyson Pool PA [facility] [address] [place] [address] PCP - General 04/27/17 Guillermo Martinez MD [address] [facility] [address] [place] [phone] Cardiology 11/15/17 documented as of this encounter
--- OUTSIDE RECORDS SUMMARY | 2023-12-10 14:32 | XMS_ITS | Encounter Summary ---
Author Organization [place] Address [facility] [facility] [place] [address] Care Team Providers Care Occupational Therapist Name Role Phone Shawn Nice MD Primary Care Provider Unavailab Les Reeves MD Primary Care Provider [phone] [facility], [facility] Primary Care Provide r None Primary Care Provider UnavailAllyson Feliciano Primary Care Provider [phone] Guillermo Martinez MD Unavailable [phone] Encounter Details Date Type Department Care Team (Late st Contact Info) Description 11/26/2002 Office Visit-[facility] Heart [address] [place] [phone] Unknown, MD Yovany Social History Tobacco Use Types Packs/Day Years Used Date Smoking Tobacco: Never Assessed Sex and Gender Information Value Date Recorded Sex Assigned at Not on file Gender Identity Not on file Sexual Orientation Not on file documented as of this encounter Progress Notes * Unknown, MD Yovany - 12/01/2002 5:06 PM CDT DATE: 11/26/2002 [...] She underwent catheterization which showed a 35% proximalLAD narrowing and a 95% mid vessel narrowing. The vessel was angioplastied only due to its tortuosity. 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 Her EF was 35-40%. She had some brief, non-sustainedventricular tachycardia, but that became less prominent each day and there were no additional arrhythmias. Ms. Lundberg was also seen by Dr. Billings due to her episodes of v. tach. He thought that her brief runs were due to myocardial stunning and preferred to monitor with a holter as opposed to proceed ing with an EP study. The holter monitor was performed last week. It showed sinus rhythm with an average heart rate of 65bpm. There were some PAT, PACs and two 3-16 beat runs of SVT. There was also some brief couplets. The patient had no symptoms during this time. Today, Fidelia reports that she is feeling well. 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 She is being treated for this currently. She has not had any recurrence of symptoms since being hospitalized. She denies any lightheadedness, syncope, near syncope, orthopnea orPND. 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 Weight- 242.20 lbs. Height- .00 [...] remain of her above medications as I have not made any changes today. She is due [...] on filedocumented in this encounter Care Teams Occupational Therapist Relationship Specialty Start Date End Date Shawn Nice MD PCP - General Family Practice 08/25/12 08/22/15 Les Fair MD PCP - General Family Practice 08/23/15 12/29/[address] [place] [address] PCP - General 12/30/15 10/15/16 None PCP - General 10/16/16 01/10/17 Allyson Pool PA [facility] [address] [place] [address] PCP - General 04/27/17 Guillermo Martinez MD [address] [facility] [address] [place] [phone] Cardiology 11/15/17 documented as of this encounter
[2023-12-10 14:44] LABS: Appearance Urine Cloudy (Clear); Bilirubin Urine Negative (Negative); Blood Urine Trace-intact (Negative); Color Urine Orange (Yellow); Glucose Urine Negative (Negative); Ketones Urine Trace (Negative); Leukocyte Esterase Urine 1+ (Negative); Nitrite Urine Positive (Negative); Protein Urine 1+ (Negative); Specific Gravity Urine >= 1.030 (1.000-1.030)
[2023-12-10 15:04] LABS: Bacteria Urine Many; Squamous Epithelial Cell Urine Moderate (None-Few); WBC Urine 50-100 (0-5)
== END 2023-12-10 14:22 | disposition home or self-care (01) ==
LOC: NPINS 14:21
PROVIDERS: PCP Family Medicine; Visit Provider Nurse Practitioner Gerontology
DX: R32 Unspecified urinary incontinence (principal); R82.998 Other abnormal findings in urine
CPT/HCPCS: 81001; 87086; 87186